=== PATIENT | male | born 1950 | race Caucasian/White ===

== ENCOUNTER 2016-12-06 21:06 | Inpatient (IN) | payer MEDICARE, MEDICAID ==
[~2016-12-06] VITALS: Ht 182.9 cm; Wt 89.2 kg
[~2016-12-06 21:06] MED LIST: AGM875T PO; ALEN70TA2 PO; ALEN70TA47; AMLO5TAB2; ANDROGEL PUMP; CALC600T12 PO; CEPH500C PO; DOXA1TAB; DOXA1TAB PO; DOXA2TAB PO; DOXA2TAB2 PO; FRSM40T PO; GLIP5TAB13 PO; HYDR-3454 PO; KCL20TCR PO; LANS30TA3 PO; LISI-552 PO; LISI20TA PO; LNS30CCR; LORA10TA7 PO; MAGN500C15 PO; METF-380 PO; MYCO500T34 PO; NR-TACRO1; NR-TACRO1 PO; OXC5T PO; OXYC5CAP10; OXYC5CAP10 PO; POTA20TA15 PO; TACR1CAP8 PO; TEST2.5G TD; URSO300C3 PO; URSO300C9 PO
[2016-12-06 21:27] LABS: BASOPHILS % (AUTO) 0 % (0-10); EOSINOPHILS # (AUTO) 0.1 10^3/uL (0.0-0.3); EOSINOPHILS % (AUTO) 1 % (0-10); LYMPHOCYTES # (AUTO) 1.5 X 10^3 (1.0-4.0); LYMPHOCYTES % (AUTO) 24 % (12-44); MEAN CORPUSCULAR HEMOGLOBIN 29 PG (25-34); MEAN CORPUSCULAR HGB CONC 33 G/DL (32-36); MEAN CORPUSCULAR VOLUME 88 FL (80-99); MEAN PLATELET VOLUME 10.6 FL (7.4-10.4); MONOCYTES # (AUTO) 0.5 X 10^3 (0.0-1.0); MONOCYTES % (AUTO) 8 % (0-12); NEUTROPHILS # (AUTO) 4.2 X 10^3 (1.8-7.8); NEUTROPHILS % (AUTO) 67 % (42-75); PLATELET COUNT 510 10^3/uL (130-400); RED BLOOD COUNT 4.32 10^6/uL (4.35-5.85); RED CELL DISTRIBUTION WIDTH 14.1 % (10.0-14.5); WHITE BLOOD COUNT 6.3 10^3/uL (4.3-11.0)
--- NOTE | 2016-12-06 21:39 | Diagnostic Imaging Report ---
INDICATION: Foot ulcer. FINDINGS: There is some destructive change in the distal aspect of the second metatarsal and second toe. This is suspect for underlying osteomyelitis. There has been previous amputation of much of the first metatarsal and the great toe. IMPRESSION: Findings suspect for underlying osteomyelitis in the distal second metatarsal and toe. There is some soft tissue swelling. Dictated by: Dictated on workstation # [id number]
[2016-12-06 21:47] LABS: ALANINE AMINOTRANSFERASE 17 U/L (0-55); ALBUMIN 3.3 G/DL (3.2-4.5); ANION GAP 11 MMOL/L (5-14); ASPARTATE AMINO TRANSFERASE 16 U/L (5-34); BILIRUBIN,TOTAL 0.5 MG/DL (0.1-1.0); BLOOD UREA NITROGEN 5 MG/DL (7-18); BUN/CREATININE RATIO 6; CALCIUM 9.2 MG/DL (8.5-10.1); CARBON DIOXIDE 28 MMOL/L (21-32); CHLORIDE 102 MMOL/L (98-107); CREATININE SERUM 0.77 MG/DL (0.60-1.30); GFR ESTIMATED > 60; GLUCOSE 277 MG/DL (70-105); POTASSIUM 3.4 MMOL/L (3.6-5.0); SODIUM 141 MMOL/L (135-145); TOTAL PROTEIN 7.6 G/DL (6.4-8.2)
[2016-12-06 21:48] LABS: ERYTHROCYTE SEDIMENTATION RATE 81 MM/HR (0-30)
[2016-12-06] MEDS ORDERED: NS IV 1000 ML 1,000 ML IV ONE (21:49)
[2016-12-06] MEDS ORDERED: PIPERACILLIN SODIUM/TAZOBACTAM 4.5 GM in NS (IVPB) 100 ML IV ONE (22:15)
--- NOTE | 2016-12-06 22:22 | ED General ---
General Chief Complaint: Lower Extremity Stated Complaint: FOOT ULCER Nursing Triage Note: PT BROUGHT IN BY [facility] WITH C/O INFECTION TO R FOOT X 1 MONTH. Nursing Sepsis Screen: No Definite Risk Source of Information: Patient, EMS Exam Limitations: No Limitations History of Present Illness Time Seen by Provider: 21:07 Initial Comments This 66-year-old gentleman presents to the emergency room via EMS with a wound on the right foot that has been present for about one month. It is actively draining. Patient is immunocompromised on CellCept because of liver transplant. He also has diabetes. He comes to the emergency room today because his landlord and other acquaintances were concerned about him and activated EMS. He denies fever but has had chills. Heart rate is greater than 100 on assessment. There is active purulent drainage from an open wound at a prior toe amputation site. Dr. Edwards is his firebreak cutter. Dr. Quiñonez is his primary care provider. He has no sensation in his feet. Allergies and Home Medications Allergies Coded Allergies: NKANo Known Allergies (Verified Allergy, Unknown, 11/24/05) Home Medications Alendronate Sodium 70 Mg Tablet, 70 MG PO weekly, (Reported) take on Thursday Doxazosin Mesylate 2 Mg Tablet, 2 MG PO BID, (Reported) Glipizide 5 Mg Tablet, 5 MG PO BID, (Reported) Lansoprazole 30 Mg Tab.rap.dr, 30 MG PO DAILY, (Reported) Lisinopril 20 Mg Tablet, 20 MG PO DAILY, (Reported) Metformin Hcl 1,000 Mg Tablet, 1,000 MG PO BID, (Reported) Mycophenolate Mofetil 500 Mg Tablet, 1,000 MG PO BID, (Reported) take 2 (500mg) tabs Oxycodone HCl/Acetaminophen 1 Each Tablet, 1 EACH PO Q4H PRN for PAIN-MILD TO MODERATE, (Reported) Tacrolimus 1 Mg Capsule, 2 MG PO BID, (Reported) take 2 (1mg) tabs Testosterone 2.5 Gm Gel.packet, 2.5 GM TD DAILY, (Reported) Ursodiol 300 Mg Capsule, 300 MG PO BID, (Reported) Constitutional: see HPI EENTM: no symptoms reported Respiratory: no symptoms reported Cardiovascular: no symptoms reported Gastrointestinal: see HPI Genitourinary: no symptoms reported Musculoskeletal: see HPI Skin: see HPI Psychiatric/Neurological: See HPI Hematologic/Lymphatic: No Symptoms Reported Immunological/Allergic: see HPI Past Ongjvyv-Gvxydb-Xbfmwx Hx Patient Social History Alcohol Use: Denies Use Recreational Drug Use: No (HX OF) Smoking Status: Former Smoker Former Smoker/When Quit: Mar 03, 2002 2nd Hand Smoke Exposure: No Recent Foreign Travel: No Contact w/Someone Who Travel: No Recent Infectious Disease Expo: No Recent Hopitalizations: No Immunizations Up To Date Date of Pneumonia Vaccine: Aug 03, 2011 Surgeries HX Surgeries: Yes (several sx on both feet with toes amputed) Surgeries: Appendectomy, Gallbladder, Liver Transplant, Tonsillectomy Respiratory Hx Respiratory Disorders: No Cardiovascular Hx Cardiac Disorders: Yes Neurological Hx Neurological Disorders: Yes (BOTH FEET NEUROPATHY) Reproductive System Hx Reproductive Disorders: No Sexually Transmitted Disease: No HIV/AIDS: No Genitourinary Hx Genitourinary Disorders: No Gastrointestinal Hx Gastrointestinal Disorders: Yes (hx of liver transplant 2002) Gastrointestinal Disorders: Hepatitis Musculoskeletal Hx Musculoskeletal Disorders: Yes Musculoskeletal Disorders: Amputee, Arthritis, Chronic Back Pain Endocrine Hx Endocrine Disorders: Yes Endocrine Disorders: Diabetes, Non-Insulin dep HEENT HX ENT Disorders: Yes (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)) Loss of Vision: Left Hearing Impairment: Denies Cancer Hx Cancer: No Psychosocial Hx Psychiatric Problems: Yes Behavioral Health Disorders: Anxiety, Depression Integumentary HX Skin/Integumentary Disorder: Yes (cyst left neck) Blood Transfusions Hx Blood Disorders: No Adverse Reaction to a Blood Tr: No Physical Exam Vital Signs Vital Sign - Last 12Hours 12/06/16 21:20 Temp 98.9 Pulse 106 Resp 20 B/P (MAP) 158/85 Pulse Ox 97 O2 Delivery Room Air Capillary Refill : Less Than 3 Seconds General Appearance: No Apparent Distress, WD/WN HEENT: PERRL/EOMI, Normal ENT Inspection, Pharynx Normal Neck: Full Range of Motion, Normal Inspection, Carotid Bruit Respiratory: Lungs Clear, Normal Breath Sounds, No Accessory Muscle Use, No Respiratory Distress Cardiovascular: Regular Rate, Rhythm, No Edema, No Murmur Gastrointestinal: Normal Bowel Sounds, Soft Extremity: Other (blister on the tip of the left great toe. Fairly large area of wound near the toe amputations on the right foot. 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 Norm as Tested Focused Exam Lactic Acid Level Progress/Results/Core Measures Results/Orders Lab Results Laboratory Tests Test 12/06/16 21:18 12/06/16 23:03 12/07/16 04:47 Range/Units White Blood Count 6.3 5.7 4.3-11.0 10^3/uL Red Blood Count 4.32 L 3.81 L 4.35-5.85 10^6/uL Hemoglobin 12.5 L 11.0 L 13.3-17.7 G/DL Hematocrit 38 L 34 L 40-54 % Mean Corpuscular Volume 88 89 80-99 FL Mean Corpuscular Hemoglobin 29 29 25-34 PG Mean Corpuscular Hemoglobin Concent 33 32 32-36 G/DL Red Cell Distribution Width 14.1 14.2 10.0-14.5 % Platelet Count 510 H 443 H 130-400 10^3/uL Mean Platelet Volume 10.6 H 10.5 H 7.4-10.4 FL Neutrophils (%) (Auto) 67 58 42-75 % Lymphocytes (%) (Auto) 24 31 12-44 % Monocytes (%) (Auto) 8 9 0-12 % Eosinophils (%) (Auto) 1 2 0-10 % Basophils (%) (Auto) 0 0 0-10 % Neutrophils # (Auto) 4.2 3.3 1.8-7.8 X 10^3 Lymphocytes # (Auto) 1.5 1.8 1.0-4.0 X 10^3 Monocytes # (Auto) 0.5 0.5 0.0-1.0 X 10^3 Eosinophils # (Auto) 0.1 0.1 0.0-0.3 10^3/uL Basophils # (Auto) 0.0 0.0 0.0-0.1 10^3/uL Erythrocyte Sedimentation Rate 81 H 0-30 MM/HR Sodium Level 141 135-145 MMOL/L Potassium Level 3.4 L 3.6-5.0 MMOL/L Chloride Level 102 98-107 MMOL/L Carbon Dioxide Level 28 21-32 MMOL/L Anion Gap 11 5-14 MMOL/L Blood Urea Nitrogen 5 L 7-18 MG/DL Creatinine 0.77 0.60-1.30 MG/DL Estimat Glomerular Filtration Rate > 60 BUN/Creatinine Ratio 6 Glucose Level 277 H 70-105 MG/DL Lactic Acid Level 2.05 *H 1.38 0.50-2.00 MMOL/L Calcium Level 9.2 8.5-10.1 MG/DL Total Bilirubin 0.5 0.1-1.0 MG/DL Aspartate Amino Transf (AST/SGOT) 16 5-34 U/L Alanine Aminotransferase (ALT/SGPT) 17 0-55 U/L Alkaline Phosphatase 103 40-136 U/L Total Protein 7.6 6.4-8.2 G/DL Albumin 3.3 3.2-4.5 G/DL My Orders Orders - SHAYNA GOMEZ MD Cbc With Automated Diff (12/06/16 21:15) Comprehensive Metabolic Panel (12/06/16 21:15) Lactic Acid Analyzer (12/06/16 21:15) Blood Culture (12/06/16 21:15) Wound Culture (12/06/16 21:15) Erythrocyte Sedimentation Rate (12/06/16 21:15) Saline Lock/Iv-Start (12/06/16 21:15) Foot, Right, 3 View (12/06/16 21:15) Ns Iv 1000 Ml (Sodium Chloride 0.9%) (12/06/16 21:49) Piperacillin Sodium/Tazobactam (Zosyn Vi (12/06/16 22:15) Medications Given in ED Current Medications Medications Dose Ordered Sig/Merrick Route Start Time Stop Time Status Last Admin Dose Admin Piperacillin Sod/ Tazobactam Sod 4.5 gm/Sodium Chloride 100 ml @ 200 mls/hr ONCE ONCE IV 12/06/16 22:15 12/06/16 22:44 DC 12/06/16 22:45 200 MLS/HR Sodium Chloride 1,000 ml @ 0 mls/hr Q0M ONCE IV 12/06/16 21:49 12/06/16 21:50 DC 12/06/16 22:08 0 MLS/HR Vital Signs/I&O Vital Sign - Last 12Hours 12/06/16 12/06/16 12/07/16 21:20 23:06 00:00 Temp 98.9 98.9 98.1 Pulse 106 100 97 Resp 20 20 18 B/P (MAP) 158/85 138/76 Pulse Ox 97 97 100 O2 Delivery Room Air Room Air Blood Pressure Mean: 109 Progress Note : Progress Note Wound and blood cultures were obtained. A liter of IV normal saline was administered. Antibiotic therapy was started with Zosyn. Vancomycin will be administered on arrival to the floor. Departure Communication Time/Spoke to Admitting Phy: 22:[address] Gleason agrees to admission and IV antibiotic therapy starting with vancomycin and Zosyn. Patient will need a surgical consultation with or another available surgeon. Impression Impression: Primary Impression: Osteomyelitis of right foot Qualified Codes: M86.9 - Osteomyelitis, unspecified Additional Impression: Immunocompromised state Disposition: ADMITTED INPATIENT Condition: Improved Decision to Admit Reason: Admit from ER (General) Decision to Admit/Date: December 06, 2016 Time/Decision to Admit Time: 22:00 Departure-Patient Inst. Referrals: SUSAN QUIÑONEZ MD (PCP/Family) Primary Care Physician SHAYNA GOMEZ MD December 06, 2016 22:22
[2016-12-06] MEDS ORDERED: CATHETER FLUSH 10 ML SYR IV PRN (23:45)
[2016-12-06] MEDS ORDERED: VANCOMYCIN 1500 MG/NS 500 ML IVPB IV ONE ×2 (23:45)
[2016-12-07] VITALS: BP 138/76
[2016-12-07] MEDS ORDERED: VANCOMYCIN 1000 MG/VIAL ONE (00:17)
[2016-12-07] MEDS ORDERED: NS (IVPB) 250 ML ONE (00:17)
[2016-12-07] MEDS: NS IV 1000 ML 1,000 ML IV SCH ×3 (00:30→18:48)
[2016-12-07] MEDS: oxyCODONE/APAP 5/325MG (PERCOCET 5) TABLET PO PRN ×4 (00:55→20:19)
[2016-12-07] MEDS ORDERED: OXYC-471 PO (02:58)
[2016-12-07 04:00] VITALS: BP 95/55
[2016-12-07] MEDS ORDERED: PIPERACILLIN/TAZOBACTAM 4.5 GM/NS 100 ML IVPB IV SCH ×2 (04:00)
[2016-12-07 05:22] LABS: BASOPHILS % (AUTO) 0 % (0-10); EOSINOPHILS # (AUTO) 0.1 10^3/uL (0.0-0.3); EOSINOPHILS % (AUTO) 2 % (0-10); LYMPHOCYTES # (AUTO) 1.8 X 10^3 (1.0-4.0); LYMPHOCYTES % (AUTO) 31 % (12-44); MEAN CORPUSCULAR HEMOGLOBIN 29 PG (25-34); MEAN CORPUSCULAR HGB CONC 32 G/DL (32-36); MEAN CORPUSCULAR VOLUME 89 FL (80-99); MEAN PLATELET VOLUME 10.5 FL (7.4-10.4); MONOCYTES # (AUTO) 0.5 X 10^3 (0.0-1.0); MONOCYTES % (AUTO) 9 % (0-12); NEUTROPHILS # (AUTO) 3.3 X 10^3 (1.8-7.8); NEUTROPHILS % (AUTO) 58 % (42-75); PLATELET COUNT 443 10^3/uL (130-400); RED BLOOD COUNT 3.81 10^6/uL (4.35-5.85); RED CELL DISTRIBUTION WIDTH 14.2 % (10.0-14.5); WHITE BLOOD COUNT 5.7 10^3/uL (4.3-11.0)
[2016-12-07] MEDS ORDERED: inSUlin ASPART (NovoLOG) 1 UNIT/0.01 ML (CHARGE PER UNIT) SC SCH (06:00)
[2016-12-07] MEDS: CATHETER FLUSH 10 ML SYR IV SCH ×3 (06:32→20:20)
[2016-12-07 06:38] LABS: ALANINE AMINOTRANSFERASE 14 U/L (0-55); ALBUMIN 2.8 G/DL (3.2-4.5); ANION GAP 9 MMOL/L (5-14); ASPARTATE AMINO TRANSFERASE 13 U/L (5-34); BILIRUBIN,TOTAL 0.3 MG/DL (0.1-1.0); BLOOD UREA NITROGEN 7 MG/DL (7-18); BUN/CREATININE RATIO 9; CALCIUM 8.3 MG/DL (8.5-10.1); CARBON DIOXIDE 25 MMOL/L (21-32); CHLORIDE 108 MMOL/L (98-107); CREATININE SERUM 0.76 MG/DL (0.60-1.30); GFR ESTIMATED > 60; GLUCOSE 261 MG/DL (70-105); POTASSIUM 3.3 MMOL/L (3.6-5.0); SODIUM 142 MMOL/L (135-145); TOTAL PROTEIN 6.6 G/DL (6.4-8.2)
[2016-12-07] MEDS: inSUlin (REGULAR) HUMAN 1 UNIT/0.01 ML (CHARGE PER UNIT) SC SCH ×5 (06:47→21:44)
[2016-12-07] MEDS ORDERED: VANCOMYCIN 1250 MG/NS 250 ML IVPB IV SCH ×2 (07:00)
--- NOTE | 2016-12-07 07:26 | History & Physicial (CHS) ---
HPI History of Present Illness: 66-year-old male admitted through the emergency department with a right foot that has been with a wound for approximately 1 month. Apparently the wound has been draining as well. He does see Dr. Vergara as his primary care physician through [facility]. Patient has also had liver transplant and is on medication that makes him immunocompromise. He also is diabetic. He denies any significant fever or any chills. Patient had prior amputation on the side that is involved. Source: patient Exam Limitations: clinical condition Date seen by provider: December 07, 2016 Attending Physician Joel Mota MD PCP Andreas Vergara MD Consult Date of Admission December 06, 2016 at 22:16 Home Medications Home Medications Reviewed patient Home Medication Reconciliation Form Allergies Coded Allergies: NKANo Known Allergies (Verified Allergy, Unknown, 11/24/05) WTW-Seggff-Yozamo Hx Patient Social History Alcohol Use: Occasionally Uses Recreational Drug Use: No (HX OF) Smoking Status: Former Smoker Former smoker/When Quit: Mar 03, 2002 2nd Hand Smoke Exposure: No Recent Foreign Travel: No Contact w/other who traveled: No Recent Hopitalizations: No Recent Infectious Disease Expo: No Physical Abuse Screen: No Sexual Abuse: No Immunizations Up To Date Date of Pneumonia Vaccine: Aug 03, 2011 Review of Systems ([facility]) Constitutional: see HPI Reviewed Test Results Reviewed Test Results Radiology NAME: ERIBERTO RAMEY MED REC#: [id number] PT STATUS: REG ER : 1950 PHYSICIAN: SHAYNA GOMEZ MD ADMIT DATE: 12/06/16/ER Signed Date of Exam: 12/06/16 FOOT, RIGHT, 3 VIEW INDICATION: Foot ulcer. FINDINGS: There is some destructive change in the distal aspect of the second metatarsal and second toe. This is suspect for underlying osteomyelitis. There has been previous amputation of much of the first metatarsal and the great toe. IMPRESSION: Findings suspect for underlying osteomyelitis in the distal second metatarsal and toe. There is some soft tissue swelling. Dictated by: Dictated on workstation # [id number] Dict: 12/06/162132 Trans: 12/06/162138 Interpreted by: ZOILA WHELAN Electronically signed by: ZOILA WHELAN 12/06/16 2139 Physical Exam-([facility]) Physical Exam Vital Signs VS - Last 72 Hours, by Label 12/06/16 12/06/16 12/07/16 12/07/16 21:20 23:06 00:00 04:00 Temp 98.9 98.9 98.1 97.2 Pulse 106 100 97 53 Resp 20 20 18 18 B/P (MAP) 158/85 138/76 95/55 Pulse Ox 97 97 100 98 O2 Delivery Room Air Room Air Room Air Capillary Refill : Less Than 3 Seconds General Appearance: no apparent distress Eyes: Bilateral Eye Normal Inspection Neck: non-tender, supple Respiratory: lungs clear Cardiovascular: regular rate, rhythm Gastrointestinal: soft Rectal: deferred Extremities: other (patient has obvious soft tissue swelling and mild erythema to the right foot. He is also noted to have drainage from the right foot where previous amputation has occurred) Assessment/Plan Assessment/Plan Admission Dx 1. Osteomyelitis second toe right foot 2. Abscess right foot 3. Diabetes mellitus 4. Previous liver transplant Plan 1. Osteomyelitis second toe right foot -Patient to be initiated on IV Zosyn and vancomycin. 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 Edwards 2. Abscess right foot -Antibiotics as above 3. Diabetes mellitus -We will maintain him on home medication and adjust as appropriate 4. Previous liver transplant Diagnosis/Problems: Clinical Quality Measures DVT/VTE Risk/Contraindication: Risk Factor Score Per Nursin RFS Level Per Nursing on Admit: 4+=Very High JOEL MOTA MD December 07, 2016 07:26
[2016-12-07] MEDS ORDERED: VANCOMYCIN 1500 MG/NS 500 ML IVPB IV NR ×2 (07:30)
[2016-12-07] MEDS ORDERED: oxyCODONE/APAP 5/325MG (PERCOCET 5) TABLET PO PRN (09:00)
[2016-12-07] MEDS ORDERED: TACROLIMUS 1 MG (PROGRAF) CAP NON-FORMULARY PO SCH (09:00)
[2016-12-07] MEDS: doxAzosin 2 MG (CARDURA) TAB PO SCH ×2 (09:30→20:19)
[2016-12-07] MEDS: metFORMIN 500 MG (GLUCOPHAGE) TAB PO SCH ×2 (09:31→17:12)
[2016-12-07] MEDS: glipiZIDE 5 MG (GLUCOTROL) TAB PO SCH ×2 (09:31→17:12)
[2016-12-07] MEDS: ENOXAPARIN 30 MG/0.3 ML (LOVENOX) SYR SC SCH (09:31)
[2016-12-07] MEDS: lisINopril 20 MG (ZESTRIL) TAB PO SCH (09:31)
[2016-12-07 12:00] VITALS: BP 98/58
[2016-12-07] MEDS: PIPERACILLIN/TAZOBACTAM 4.5 GM/NS 100 ML IVPB IV SCH ×4 (13:46→22:07)
[2016-12-07 15:25] VITALS: BP 90/50
[2016-12-07] MEDS: VANCOMYCIN 1250 MG/NS 250 ML IVPB IV SCH ×2 (18:47)
[2016-12-07 19:50] VITALS: BP 127/57
[2016-12-08 00:06] VITALS: BP 98/58
[2016-12-08] MEDS: NS IV 1000 ML 1,000 ML IV SCH ×2 (05:47→14:07)
[2016-12-08] MEDS: CATHETER FLUSH 10 ML SYR IV SCH ×3 (05:47→20:24)
[2016-12-08] MEDS: PIPERACILLIN/TAZOBACTAM 4.5 GM/NS 100 ML IVPB IV SCH ×6 (05:48→21:00)
[2016-12-08] MEDS ORDERED: TROUGH ORDER-PHARMACY XX NR (06:00)
[2016-12-08] MEDS: inSUlin (REGULAR) HUMAN 1 UNIT/0.01 ML (CHARGE PER UNIT) SC SCH ×4 (06:05→21:47)
[2016-12-08] MEDS: oxyCODONE/APAP 5/325MG (PERCOCET 5) TABLET PO PRN ×3 (06:12→19:22)
[2016-12-08] MEDS: glipiZIDE 5 MG (GLUCOTROL) TAB PO SCH ×2 (06:12→17:50)
[2016-12-08] MEDS: metFORMIN 500 MG (GLUCOPHAGE) TAB PO SCH (06:12)
[2016-12-08] MEDS: VANCOMYCIN 1250 MG/NS 250 ML IVPB IV SCH ×2 (07:45)
[2016-12-08 08:00] VITALS: BP 107/59
[2016-12-08] MEDS: doxAzosin 2 MG (CARDURA) TAB PO SCH ×2 (09:03→20:24)
[2016-12-08] MEDS: lisINopril 20 MG (ZESTRIL) TAB PO SCH (09:03)
[2016-12-08] MEDS: ENOXAPARIN 30 MG/0.3 ML (LOVENOX) SYR SC SCH (09:03)
--- NOTE | 2016-12-08 11:35 | Progress Note (SOAP) ---
Subjective Subjective/Events-last exam Patient states that he feels fine this AM. Denies any pain on foot. Tolerating PO diet. Date seen by provider: December 08, 2016 Objective Exam Last Set of Vital Signs Vital Signs Date Time Temp Pulse Resp B/P (MAP) Pulse Ox O2 Delivery O2 Flow Rate FiO2 12/08/16 08:00 99.0 81 16 107/59 95 Room Air Capillary Refill : Less Than 3 Seconds I&O Intake and Output 12/08/16 00:00 Intake Total 4115 ml Output Total 650 ml Balance 3465 ml Intake Oral 2000 ml IV Total 2115 ml Output Urine Total 650 ml # Voids 5 General: Alert, Oriented X3, Cooperative, No Acute Distress Neck: Supple, No JVD, No Thyromegaly Lungs: Clear to Auscultation, Normal Air Movement Heart: Regular Rate, No Murmurs Abdomen: Normal Bowel Sounds, Soft, No Tenderness Extremities: Other (Right foot: + draining abcess of purulent fluid, + swelling and erythema, tender to palpation across top of foot. Decreased sensation to Right foot compared to left.) Neuro: Strength at 5/ X4 Ext Results/Procedures Lab Laboratory Tests 12/07/16 11:56: Glucometer 140H 12/07/16 16:30: Glucometer 132H 12/07/16 21:33: Glucometer 107 12/08/16 05:46: Glucometer 98 12/08/16 06:15: Vancomycin Level Trough 14.2 12/08/16 11:13: Glucometer 127H Microbiology 12/06/16 Blood Culture - Preliminary, Resulted No growth 12/06/16 Gram Stain - Final, Resulted 12/06/16 Wound Culture - Preliminary, Resulted Staphylococcus Aureus Proteus Penneri Radiology NAME: ERIBERTO RAMEY [facility] REC#: [id number] PT STATUS: REG ER : 1950 PHYSICIAN: SHAYNA GOMEZ MD ADMIT DATE: 12/06/16/ER Signed Date of Exam: 12/06/16 FOOT, RIGHT, 3 VIEW INDICATION: Foot ulcer. FINDINGS: There is some destructive change in the distal aspect of the second metatarsal and second toe. This is suspect for underlying osteomyelitis. There has been previous amputation of much of the first metatarsal and the great toe. IMPRESSION: Findings suspect for underlying osteomyelitis in the distal second metatarsal and toe. There is some soft tissue swelling. Dictated by: Dictated on workstation # [id number] Dict: 12/06/162132 Trans: 12/06/162138 Interpreted by: ZOILA WHELAN Electronically signed by: ZOILA WHELAN 12/06/162138 Assessment/Plan Assessment/Plan Admission Dx 1. Osteomyelitis second toe right foot 2. Abscess right foot 3. Diabetes mellitus 4. Previous liver transplant Plan 1. Osteomyelitis second toe right foot - Dr Edwards to see patient today - D/c Vanc today after reviewing C/s, Continue Zosyn 2. Abscess right foot - Antibiotics as above 3. Diabetes mellitus - We will maintain him on home medication and adjust as appropriate - A1c pending 4. Previous liver transplant - Has not been on medications for over a year - Encouraged patient to re establish with transplant doctors as outpatient Diagnosis/Problems: Clinical Quality Measures DVT/VTE Risk/Contraindication: Risk Factor Score Per Nursin RFS Level Per Nursing on Admit: 4+=Very High ANA QUINTANA MD December 08, 2016 11:35
[2016-12-08] MEDS ORDERED: KCL 20 MEQ TAB (K-DUR) PO NR (11:45)
[2016-12-08 16:05] VITALS: BP 107/58
--- NOTE | 2016-12-08 17:29 | Podiatry Progress Note ---
Standard Progress Note Progress Notes/Assess & Plan Progress/Assessment & Plan Consult dictated. Osteomyelitis of the right 2nd metatarsal Plan: I will contact surgery tomorrow for excision of infected bone ( amputation of the remaining 2nd toe and 2nd metatarsal). He is also to consider a transmetatarsal amputation which could be a better jail solution. Wound care daily until surgery. Continue IV antibiotics. Final Diagnosis Osteomyelitis right 2nd metatarsal KENNY RENAE DPM December 08, 2016 17:29
[2016-12-08] MEDS: SILVER SULFADIAZINE 400 GM CREAM TOP SCH (20:24)
[2016-12-09] MEDS: NS IV 1000 ML 1,000 ML IV SCH ×3 (00:16→20:12)
[2016-12-09 00:32] VITALS: BP 111/62
[2016-12-09 04:00] VITALS: BP 142/65
[2016-12-09 05:56] LABS: BASOPHILS % (AUTO) 1 % (0-10); EOSINOPHILS # (AUTO) 0.2 10^3/uL (0.0-0.3); EOSINOPHILS % (AUTO) 4 % (0-10); LYMPHOCYTES # (AUTO) 1.5 X 10^3 (1.0-4.0); LYMPHOCYTES % (AUTO) 34 % (12-44); MEAN CORPUSCULAR HEMOGLOBIN 29 PG (25-34); MEAN CORPUSCULAR HGB CONC 32 G/DL (32-36); MEAN CORPUSCULAR VOLUME 91 FL (80-99); MEAN PLATELET VOLUME 10.9 FL (7.4-10.4); MONOCYTES # (AUTO) 0.4 X 10^3 (0.0-1.0); MONOCYTES % (AUTO) 9 % (0-12); NEUTROPHILS # (AUTO) 2.3 X 10^3 (1.8-7.8); NEUTROPHILS % (AUTO) 52 % (42-75); PLATELET COUNT 357 10^3/uL (130-400); RED BLOOD COUNT 3.51 10^6/uL (4.35-5.85); RED CELL DISTRIBUTION WIDTH 14.5 % (10.0-14.5); WHITE BLOOD COUNT 4.3 10^3/uL (4.3-11.0)
[2016-12-09] MEDS: PIPERACILLIN/TAZOBACTAM 4.5 GM/NS 100 ML IVPB IV SCH ×6 (06:03→21:16)
--- NOTE | 2016-12-09 06:03 | CONSULTATION REPORT ---
DATE OF SERVICE: 12/08/2016 REASON FOR CONSULT: Diabetic ulceration with osteomyelitis of the right foot. HISTORY OF PRESENT ILLNESS: This 66-year-old male was admitted through the ER secondary to a foot ulcer to the right foot for the last month. It was actively draining. He had a history of multiple amputations to digits of bilateral foot. He apparently had some nausea and some acquaintances of [employer] were concerned about his well being and activated EMS to have him transported to the hospital. He was subsequently admitted and treated with IV antibiotics. He denies any current fever, chills, nausea or vomiting and the pain to the right foot has improved since being admitted. The patient has no known drug allergies. PAST MEDICAL HISTORY: Includes coronary artery disease; history of neuropathy, bilateral foot; history of liver transplant due to hepatitis; chronic back pain, arthritis; noninsulin dependent diabetic who was not checking his blood sugars on a regular basis prior to admission. He does have left eye partial blindness, history of anxiety, depression. PAST SURGICAL HISTORY: Also, include appendectomy, cholecystectomy, liver transplant, tonsillectomy and above mentioned multiple amputations. CURRENT MEDICATIONS: Listed on the patient's chart. SOCIAL HISTORY: The patient denies alcohol or illicit drug use. He is a former smoker, quit in 2001. PHYSICAL EXAMINATION: GENERAL: The patient is currently afebrile, is in good condition. EXTREMITIES: On lower extremity examination, the patient has diminished pedal pulses bilateral foot. The patient has diminished protective sensation per 10 gram monofilament wire,bilateral foot, absent vibratory sensation bilateral foot. DERMATOLOGIC: The patient has a full thickness wound approximately 9 x 4 mm to remaining right second digit that probes down to bone. There is minimal purulent discharge in this area, some pain with palpation. No bogginess noted at this point. Dermatologically, he also has a bulla noted to the distal aspect of the left hallux, a hyperkeratotic lesion to the distal aspect of the left fourth toe. There is also evidence of a previous ulceration on the planter aspect of the right second metatarsal head that is now crusted over. MUSCULOSKELETAL: The patient has amputation of the right hallux, partial amputation of the right second toe, amputation of the left second toe and a partial amputation of the left third digit. There is significant lateral deviation noted to the left hallux. Contracted toes 4 and 5 are noted on the right and left fourth and fifth toes. X-rays were reviewed that were taken on 12/06/2016 indicate the significant osteolysis associated with the second metatarsal head of the right foot, consistent with osteomyelitis. ASSESSMENT: 1. Osteomyelitis, right second metatarsal with probable extension to the remaining second digit 2. Diabetic neuropathy. 3. Hammer digit syndrome. PLAN: Various treatment options were discussed with the patient. We discussed continued wound care for the right second toe. However, he needs incision and drainage and probable amputation of the second ray right foot. He understands the risks associated with the surgery as well as the risk associated with not doing surgery. My plan is to contact the surgery department tomorrow morning and see when we can put him on the schedule for at least an I and D and probable amputation of the infected bone. In the meantime, we will have wound care performed as well as continuation of his IV antibiotics. He is to remain nonweight bearing on the right lower extremity. Job ID: [id number] DocumentID: [id number] Dictated Date: 12/08/2016 17:36:50 Admissions Specialist Date: 12/09/2016 00:24:17 Dictated By: BILL DAMON
[2016-12-09] MEDS: CATHETER FLUSH 10 ML SYR IV SCH ×3 (06:04→20:14)
[2016-12-09] MEDS: glipiZIDE 5 MG (GLUCOTROL) TAB PO SCH ×2 (06:04→17:35)
[2016-12-09 06:13] LABS: ANION GAP 7 MMOL/L (5-14); BLOOD UREA NITROGEN 8 MG/DL (7-18); BUN/CREATININE RATIO 11; CALCIUM 8.4 MG/DL (8.5-10.1); CARBON DIOXIDE 26 MMOL/L (21-32); CHLORIDE 111 MMOL/L (98-107); CREATININE SERUM 0.72 MG/DL (0.60-1.30); GFR ESTIMATED > 60; GLUCOSE 129 MG/DL (70-105); POTASSIUM 3.6 MMOL/L (3.6-5.0); SODIUM 144 MMOL/L (135-145)
[2016-12-09] MEDS: inSUlin (REGULAR) HUMAN 1 UNIT/0.01 ML (CHARGE PER UNIT) SC SCH ×4 (06:29→23:29)
[2016-12-09 08:00] VITALS: BP 118/65
[2016-12-09] MEDS: lisINopril 20 MG (ZESTRIL) TAB PO SCH (08:52)
[2016-12-09] MEDS: doxAzosin 2 MG (CARDURA) TAB PO SCH ×2 (08:52→20:14)
[2016-12-09] MEDS: SILVER SULFADIAZINE 400 GM CREAM TOP SCH (08:53)
[2016-12-09] MEDS: oxyCODONE/APAP 5/325MG (PERCOCET 5) TABLET PO PRN ×3 (08:53→23:51)
[2016-12-09] MEDS: ENOXAPARIN 40 MG/0.4 ML (LOVENOX) SYR SC SCH (08:53)
[2016-12-09 16:00] VITALS: BP 123/66
--- NOTE | 2016-12-09 20:26 | Progress Note (SOAP) ---
Subjective Subjective/Events-last exam Patient states that he is doing ok this AM. States that pain is controlled. tolerating PO diet and ambulation with walker. + BM overnight. Date seen by provider: December 09, 2016 Objective Exam Last Set of Vital Signs Vital Signs Date Time Temp Pulse Resp B/P (MAP) Pulse Ox O2 Delivery O2 Flow Rate FiO2 12/09/16 16:00 97.1 78 20 123/66 96 Room Air Capillary Refill : Less Than 3 Seconds I&O Intake and Output 12/09/16 00:00 Intake Total 2877 ml Output Total 775 ml Balance 2102 ml Intake Oral 1447 ml IV Total 1430 ml Output Urine Total 775 ml # Voids 4 # Bowel Movements 2 General: Alert, Oriented X3, Cooperative, No Acute Distress Lungs: Clear to Auscultation, Normal Air Movement Heart: Regular Rate, No Murmurs Abdomen: Normal Bowel Sounds, Soft, No Tenderness, No Hepatosplenomegaly, No Masses Extremities: Other (+ erythema and swelling to RLE and foot) Psych/Mental Status: Mental Status NL, Mood NL Results/Procedures Lab Laboratory Tests 12/08/16 21:43: Glucometer 169H 12/09/16 05:25: White Blood Count 4.3, Red Blood Count 3.51L, Hemoglobin 10.1L, Hematocrit 32L, Mean Corpuscular Volume 91, Mean Corpuscular Hemoglobin 29, Mean Corpuscular Hemoglobin Concent 32, Red Cell Distribution Width 14.5, Platelet Count 357, Mean Platelet Volume 10.9H, Neutrophils (%) (Auto) 52, Lymphocytes (%) (Auto) 34 , Monocytes (%) (Auto) 9, Eosinophils (%) (Auto) 4, Basophils (%) (Auto) 1, Neutrophils # (Auto) 2.3, Lymphocytes # (Auto) 1.5, Monocytes # (Auto) 0.4, Eosinophils # (Auto) 0.2, Basophils # (Auto) 0.0, Sodium Level 144, Potassium Level 3.6, Chloride Level 111H, Carbon Dioxide Level 26, Anion Gap 7, Blood Urea Nitrogen 8, Creatinine 0.72, Estimat Glomerular Filtration Rate > 60, BUN/ Creatinine Ratio 11, Glucose Level 129H, Hemoglobin A1c 9.1H, Calcium Level 8.4L 12/09/16 10:49: Glucometer 220H 12/09/16 16:20: Glucometer 135H Microbiology 12/06/16 Blood Culture - Preliminary, Resulted No growth 12/06/16 Gram Stain - Final, Resulted 12/06/16 Wound Culture - Preliminary, Resulted Staphylococcus Aureus Proteus Penneri Radiology NAME: ERIBERTO RAMEY [facility] REC#: [id number] PT STATUS: REG ER : 1950 PHYSICIAN: SHAYNA GOMEZ MD ADMIT DATE: 12/06/16/ER Signed Date of Exam: 12/06/16 FOOT, RIGHT, 3 VIEW INDICATION: Foot ulcer. FINDINGS: There is some destructive change in the distal aspect of the second metatarsal and second toe. This is suspect for underlying osteomyelitis. There has been previous amputation of much of the first metatarsal and the great toe. IMPRESSION: Findings suspect for underlying osteomyelitis in the distal second metatarsal and toe. There is some soft tissue swelling. Dictated by: Dictated on workstation # [id number] Dict: 12/06/162132 Trans: 12/06/162138 Interpreted by: ZOILA WHELAN Electronically signed by: ZOILA WHELAN 12/06/162138 Assessment/Plan Assessment/Plan Admission Dx 1. Osteomyelitis second toe right foot 2. Abscess right foot 3. Diabetes mellitus 4. Previous liver transplant Plan 66 yo M that was admitted with diabetic foot wound with underlying osteomyelitis 1. Osteomyelitis second toe right foot - Dr Edwards to take patient to OR for amputation - Continue Zosyn, Will wait for c/s from amputation - Patient will need rehab evaluation after surgery 2. Bacteremia - Continue IV antibiotics 3. Abscess right foot - Antibiotics as above 4. Diabetes mellitus - We will maintain him on home medication and adjust as appropriate - Holding Metformin in case patient needs contrast - A1c 9.1, Uncontrolled 4. Previous liver transplant - Has not been on medications for over a year - Encouraged patient to re establish with transplant doctors as outpatient FEN: NPO for procedure then advance to ADA diet DVT PPX: SCDs then start lovenox when ok with Dr Edwards Dispo: Will likely d/c home when c/s return after surgery, will get evaluation from rehab and may need swing bed SW: Consulted and following patient Diagnosis/Problems: Clinical Quality Measures DVT/VTE Risk/Contraindication: Risk Factor Score Per Nursin RFS Level Per Nursing on Admit: 4+=Very High ANA QUINTANA MD December 09, 2016 20:26
[2016-12-10] VITALS: BP 123/76
[2016-12-10] MEDS: PIPERACILLIN/TAZOBACTAM 4.5 GM/NS 100 ML IVPB IV SCH ×6 (05:02→21:42)
[2016-12-10] MEDS: CATHETER FLUSH 10 ML SYR IV SCH ×3 (05:08→22:29)
[2016-12-10] MEDS: glipiZIDE 5 MG (GLUCOTROL) TAB PO SCH ×2 (05:08→18:52)
[2016-12-10] MEDS: NS IV 1000 ML 1,000 ML IV SCH ×3 (06:31→18:58)
[2016-12-10] MEDS: inSUlin (REGULAR) HUMAN 1 UNIT/0.01 ML (CHARGE PER UNIT) SC SCH ×4 (06:36→22:26)
[2016-12-10 06:49] LABS: BASOPHILS % (AUTO) 1 % (0-10); EOSINOPHILS # (AUTO) 0.1 10^3/uL (0.0-0.3); EOSINOPHILS % (AUTO) 3 % (0-10); LYMPHOCYTES # (AUTO) 1.4 X 10^3 (1.0-4.0); LYMPHOCYTES % (AUTO) 37 % (12-44); MEAN CORPUSCULAR HEMOGLOBIN 28 PG (25-34); MEAN CORPUSCULAR HGB CONC 32 G/DL (32-36); MEAN CORPUSCULAR VOLUME 90 FL (80-99); MEAN PLATELET VOLUME 10.6 FL (7.4-10.4); MONOCYTES # (AUTO) 0.5 X 10^3 (0.0-1.0); MONOCYTES % (AUTO) 13 % (0-12); NEUTROPHILS # (AUTO) 1.8 X 10^3 (1.8-7.8); NEUTROPHILS % (AUTO) 47 % (42-75); PLATELET COUNT 333 10^3/uL (130-400); RED BLOOD COUNT 3.41 10^6/uL (4.35-5.85); RED CELL DISTRIBUTION WIDTH 14.3 % (10.0-14.5); WHITE BLOOD COUNT 3.9 10^3/uL (4.3-11.0)
[2016-12-10 07:19] LABS: ALANINE AMINOTRANSFERASE 16 U/L (0-55); ALBUMIN 2.7 G/DL (3.2-4.5); ANION GAP 6 MMOL/L (5-14); ASPARTATE AMINO TRANSFERASE 20 U/L (5-34); BILIRUBIN,TOTAL 0.3 MG/DL (0.1-1.0); BLOOD UREA NITROGEN 7 MG/DL (7-18); BUN/CREATININE RATIO 10; CALCIUM 8.2 MG/DL (8.5-10.1); CARBON DIOXIDE 27 MMOL/L (21-32); CHLORIDE 109 MMOL/L (98-107); GFR ESTIMATED > 60; GLUCOSE 147 MG/DL (70-105); POTASSIUM 3.4 MMOL/L (3.6-5.0); SODIUM 142 MMOL/L (135-145)
[2016-12-10 08:00] VITALS: BP 121/60
[2016-12-10] MEDS: oxyCODONE/APAP 5/325MG (PERCOCET 5) TABLET PO PRN ×3 (08:14→20:23)
[2016-12-10] MEDS: doxAzosin 2 MG (CARDURA) TAB PO SCH ×2 (09:49→20:23)
[2016-12-10] MEDS: lisINopril 20 MG (ZESTRIL) TAB PO SCH (09:49)
[2016-12-10] MEDS: SILVER SULFADIAZINE 400 GM CREAM TOP SCH (09:49)
[2016-12-10] MEDS: ENOXAPARIN 40 MG/0.4 ML (LOVENOX) SYR SC SCH (09:59)
[2016-12-10] MEDS ORDERED: fentaNYL INJECTION 100 MCG/2 ML AMP IVP NR (10:08)
[2016-12-10] MEDS ORDERED: BUPIVACAINE 0.5% 30 ML (SENSORCAINE) VIAL ONE (11:35)
[2016-12-10] MEDS ORDERED: LIDOCAINE 1% INJ 20 ML (XYLOCAINE) VIAL ONE (11:35)
[2016-12-10] MEDS ORDERED: SEVOFLURANE (ULTANE) 15 ML INHAL SOLN ONE (11:55)
[2016-12-10] MEDS ORDERED: LIDOCAINE PF 2% 10 ML (XYLOCAINE) AMP ONE (11:55)
[2016-12-10] MEDS ORDERED: LACTATED RINGERS 1,000 ML IV ONE (11:55)
[2016-12-10] MEDS ORDERED: ONDANSETRON 4 MG/2 ML (SDV) Z0FRAN ONE (11:55)
[2016-12-10] MEDS ORDERED: proPOfol 200 MG/20 ML (DIPRIVAN) VIAL IV ONE (11:55)
[2016-12-10] MEDS ORDERED: fentaNYL INJECTION 100 MCG/2 ML AMP ONE (11:55)
[2016-12-10] MEDS ORDERED: MIDAZOLAM 2 MG/2 ML (VERSED) VIAL ONE (11:55)
[2016-12-10] MEDS: LACTATED RINGERS 1,000 ML IV PRN ×2 (12:02→13:02)
--- NOTE | 2016-12-10 12:16 | Progress Note-Pre Operative ---
Pre-Operative Progress Note H&P Reviewed The H&P was reviewed, patient examined and no changes noted. Date H&P Reviewed: December 10, 2016 Time H&P Reviewed: 12:15 Pre-Operative Diagnosis: Osteomyelitis of the right 2nd metatarsal and toe KENNY RENAE DPM December 10, 2016 12:15
[2016-12-10] MEDS ORDERED: GENTAMICIN 40 MG/ML 2 ML INJ SDV ONE (12:26)
[2016-12-10] MEDS ORDERED: PHENYLEPHRINE 100 MCG/ML 10 ML (ANESTHESIA) SYR ONE (12:57)
[2016-12-10] MEDS ORDERED: morphine INJ 10 MG/ML 1ML (SYR OR VIAL) IVP PRN (13:00)
[2016-12-10] MEDS ORDERED: ONDANSETRON 4 MG/2 ML (SDV) Z0FRAN IVP PRN (13:00)
[2016-12-10] MEDS ORDERED: HYDROmorphone (DILAUDID) 2 MG/ML VIAL IVP PRN (13:00)
--- NOTE | 2016-12-10 13:24 | Progress Note-Post Operative ---
Post-Operative Progess Note Surgeon (s)/Computer Mechanic (s) Surgeon KENNY RENAE DPM Computer Mechanic: NONE Pre-Operative Diagnosis Osteomyelitis of the right 2nd metatarsal and toe Post-Operative Diagnosis Same Procedure & Operative Findings Date of Procedure 12/10/16 Procedure Preformed/Findings Amputation of the distal 2nd metatarsal and toe, right Anesthesia Type General Estimated Blood Loss Estimated blood loss (mL): Minimal Specimens/Packing Specimens Removed right 2nd metatarsal and 2nd toe Packin/2" drain KENNY RENAE DPM December 10, 2016 13:24
[2016-12-10 16:00] VITALS: BP 120/60
--- NOTE | 2016-12-10 18:01 | Progress Note (SOAP) ---
Subjective Subjective/Events-last exam Patient to surgery this afternoon. States that he is having more pain today. Tolerating PO and ambulation. + BM last night Date seen by provider: December 10, 2016 Objective Exam Last Set of Vital Signs Vital Signs Date Time Temp Pulse Resp B/P (MAP) Pulse Ox O2 Delivery O2 Flow Rate FiO2 12/10/16 16:00 96.0 95 16 120/60 96 Room Air Capillary Refill : Less Than 3 Seconds I&O Intake and Output 12/10/16 00:00 Intake Total 4320 ml Output Total 3025 ml Balance 1295 ml Intake Oral 2120 ml IV Total 2200 ml Output Urine Total 3025 ml # Bowel Movements 1 General: Alert, Oriented X3, Cooperative, No Acute Distress Lungs: Clear to Auscultation, Normal Air Movement Heart: Regular Rate, No Murmurs Abdomen: Normal Bowel Sounds, Soft, No Tenderness Extremities: Other (+ swelling, erythema and drainage from R foot wound) Psych/Mental Status: Mental Status NL, Mood NL Results/Procedures Lab Laboratory Tests 12/09/16 21:04: Glucometer 168H 12/09/16 23:28: Glucometer 184H 12/10/16 06:35: White Blood Count 3.9L, Red Blood Count 3.41L, Hemoglobin 9.7L, Hematocrit 31L, Mean Corpuscular Volume 90, Mean Corpuscular Hemoglobin 28, Mean Corpuscular Hemoglobin Concent 32, Red Cell Distribution Width 14.3, Platelet Count 333, Mean Platelet Volume 10.6H, Neutrophils (%) (Auto) 47, Lymphocytes (%) (Auto) 37 , Monocytes (%) (Auto) 13H, Eosinophils (%) (Auto) 3, Basophils (%) (Auto) 1, Neutrophils # (Auto) 1.8, Lymphocytes # (Auto) 1.4, Monocytes # (Auto) 0.5, Eosinophils # (Auto) 0.1, Basophils # (Auto) 0.0, Sodium Level 142, Potassium Level 3.4L, Chloride Level 109H, Carbon Dioxide Level 27, Anion Gap 6, Blood Urea Nitrogen 7, Creatinine 0.70, Estimat Glomerular Filtration Rate > 60, BUN/ Creatinine Ratio 10, Glucose Level 147H, Calcium Level 8.2L, Total Bilirubin 0.3 , Aspartate Amino Transf (AST/SGOT) 20, Alanine Aminotransferase (ALT/SGPT) 16, Alkaline Phosphatase 81, Total Protein 6.0L, Albumin 2.7L 12/10/16 11:39: Glucometer 138H Microbiology 12/06/16 Blood Culture - Preliminary, Resulted No growth 12/09/16 MRSA Screen - Final, Complete MRSA not isolated 12/06/16 Gram Stain - Final, Complete 12/06/16 Wound Culture - Final, Complete Staphylococcus Aureus Proteus Penneri Radiology NAME: ERIBERTO RAMEY [facility] REC#: [id number] PT STATUS: REG ER : 1950 PHYSICIAN: SHAYNA GOMEZ MD ADMIT DATE: 12/06/16/ER Signed Date of Exam: 12/06/16 FOOT, RIGHT, 3 VIEW INDICATION: Foot ulcer. FINDINGS: There is some destructive change in the distal aspect of the second metatarsal and second toe. This is suspect for underlying osteomyelitis. There has been previous amputation of much of the first metatarsal and the great toe. IMPRESSION: Findings suspect for underlying osteomyelitis in the distal second metatarsal and toe. There is some soft tissue swelling. Dictated by: Dictated on workstation # [id number] Dict: 12/06/162132 Trans: 12/06/162138 Interpreted by: ZOILA WHELAN Electronically signed by: ZOILA WHELAN 12/06/162138 Assessment/Plan Assessment/Plan Admission Dx 1. Osteomyelitis second toe right foot 2. Abscess right foot 3. Diabetes mellitus 4. Previous liver transplant Plan 66 yo M that was admitted with diabetic foot wound with underlying osteomyelitis 1. Osteomyelitis second toe right foot - Dr Edwards to take patient to OR for amputation today - Continue Zosyn, Will wait for c/s from amputation - Patient will need rehab evaluation after surgery 2. Bacteremia - Continue IV antibiotics 3. Abscess right foot - Antibiotics as above 4. Diabetes mellitus - We will maintain him on home medication and adjust as appropriate - Holding Metformin in case patient needs contrast - A1c 9.1, Uncontrolled 5. Previous liver transplant - Has not been on medications for over a year - Encouraged patient to re establish with transplant doctors as outpatient 6. Normocytic Anemia - Will get iron studies, likely mixed with chronic dz, no signs of acute bleeding at this time 7. Hypokalemia - replace PO, repeat BMP in AM FEN: NPO for procedure then advance to ADA diet DVT PPX: SCDs then start lovenox when ok with Dr Edwards Dispo: Will likely d/c home when c/s return after surgery, will get evaluation from rehab and may need swing bed SW: Consulted and following patient Diagnosis/Problems: Clinical Quality Measures DVT/VTE Risk/Contraindication: Risk Factor Score Per Nursin RFS Level Per Nursing on Admit: 4+=Very High ANA QUINTANA MD December 10, 2016 18:01
[2016-12-10] MEDS: KETOROLAC 30 MG/ML VIAL IVP PRN (18:11)
[2016-12-10] MEDS: morphine INJ 4 MG/ML 1 ML (VIAL/SYRINGE) IVP PRN ×2 (18:11→21:42)
[2016-12-10 19:51] VITALS: BP 112/55
[2016-12-11 00:27] VITALS: BP 101/57
[2016-12-11] MEDS: oxyCODONE/APAP 5/325MG (PERCOCET 5) TABLET PO PRN ×4 (01:15→21:17)
[2016-12-11] MEDS: morphine INJ 4 MG/ML 1 ML (VIAL/SYRINGE) IVP PRN ×2 (01:15→07:32)
--- NOTE | 2016-12-11 02:16 | OPERATIVE REPORT ---
DATE OF SERVICE: 12/10/2016 SURGEON: Kenny Renae DPM PREOPERATIVE DIAGNOSIS: Osteomyelitis right second metatarsal. POSTOPERATIVE DIAGNOSIS: Osteomyelitis right second metatarsal. PROCEDURE: Amputation of distal right second metatarsal and digit. WOUND CLASS: Contaminated. ANESTHESIA: General. HEMOSTASIS: Pneumatic thigh tourniquet at 250 mmHg. INDICATIONS: This 66-year-old male presented through the ER for chronic ulceration of the right foot, apparently some fever and chills. X-rays indicated considerable osteolysis of the right second metatarsal head consistent with osteomyelitis. The patient was agreeable to surgical intervention after risks and complications were discussed at length. No guarantees were extended to the patient and he is willing to proceed. PROCEDURE: The patient was brought back to the operating table. He was then secured in the supine position. Appropriate timeout was performed. A general anesthetic was then induced. The right foot was then prepped and draped in normal sterile manner. The right lower extremity had a thigh tourniquet placed over several layers of padding. The right foot was then elevated, allowed to exsanguinate; after which the tourniquet was inflated to 250 mmHg. Attention was then directed to the right second ray where a 7 cm longitudinal incision created from the mid diaphysis extending distally and circumscribed the second digit extending laterally to the ulceration site which was also circumscribed with the incision. The incision was deepened down to bone. The second digit was disarticulated at the metatarsophalangeal joint and sent for gross and microscopic evaluation. Purulent changes were noted to the head of the second metatarsal. A section of this was sent for culture and sensitivity. Utilizing a power sagittal saw the distal portion of the second metatarsal was removed for gross and microscopic evaluation. Another small slice of metatarsal of approximately 3 mm wafer was also taken to confirm lack of bacterial or degenerative changes to this portion of the bone. The wound was then debrided of all necrotic and grossly infected material. The flexors and extensor tendons were cut as proximally as possible. Pulse irrigation was then performed with 3 liters of normal saline. It was infused with 80 mg of gentamicin. Swab culture was then taken of the wound before closure and closure was then performed with 4-0 simple interrupted type stitch. After it was longterm closed, a Manuel drain 1/2 inch wide was passed through a stab incision to the dorsolateral aspect of the wound. The tourniquet was released, finding that there were no active bleeders. The wound was closed completely with 4-0 Prolene in a simple interrupted type stitch. Postoperative injection consisted of 13 mL of 0.5% Marcaine injected in local infusion to the surgical site. Postoperative dressing consisted of Betadine-soaked Adaptic, sterile 4 x 4s, sterile Kerlix, secured with a Coban wrap. The patient tolerated the anesthesia procedure well, was transported from the operating room to the recovery area with vital signs stable and neurovascular status intact to all remaining digits of the right foot. The patient is to remain nonweightbearing. He will continue with IV antibiotics as dictated by the bone cultures. We anticipate the patient to be in the hospital for at least a couple of more days and then the drain will likely be withdrawn from the foot and then we will see about possible discharge. He will follow up in my clinic upon discharge. Job ID: [id number] DocumentID: [id number] Dictated Date: 12/10/2016 13:35:10 Needlemaker Date: 12/11/2016 02:16:07 Dictated By: KENNY RENAE DPM
[2016-12-11 04:10] VITALS: BP 100/56
[2016-12-11] MEDS: KETOROLAC 30 MG/ML VIAL IVP PRN ×2 (04:41→14:57)
[2016-12-11] MEDS: NS IV 1000 ML 1,000 ML IV SCH ×2 (04:42→14:56)
[2016-12-11 06:05] LABS: BASOPHILS % (AUTO) 1 % (0-10); EOSINOPHILS # (AUTO) 0.1 10^3/uL (0.0-0.3); EOSINOPHILS % (AUTO) 3 % (0-10); LYMPHOCYTES # (AUTO) 1.3 X 10^3 (1.0-4.0); LYMPHOCYTES % (AUTO) 28 % (12-44); MEAN CORPUSCULAR HEMOGLOBIN 29 PG (25-34); MEAN CORPUSCULAR HGB CONC 32 G/DL (32-36); MEAN CORPUSCULAR VOLUME 91 FL (80-99); MEAN PLATELET VOLUME 10.5 FL (7.4-10.4); MONOCYTES # (AUTO) 0.5 X 10^3 (0.0-1.0); MONOCYTES % (AUTO) 11 % (0-12); NEUTROPHILS # (AUTO) 2.6 X 10^3 (1.8-7.8); NEUTROPHILS % (AUTO) 57 % (42-75); PLATELET COUNT 314 10^3/uL (130-400); RED BLOOD COUNT 3.11 10^6/uL (4.35-5.85); RED CELL DISTRIBUTION WIDTH 14.3 % (10.0-14.5); WHITE BLOOD COUNT 4.6 10^3/uL (4.3-11.0)
[2016-12-11] MEDS: PIPERACILLIN/TAZOBACTAM 4.5 GM/NS 100 ML IVPB IV SCH ×2 (06:08)
[2016-12-11] MEDS: glipiZIDE 5 MG (GLUCOTROL) TAB PO SCH ×2 (06:08→18:36)
[2016-12-11] MEDS: CATHETER FLUSH 10 ML SYR IV SCH ×3 (06:09→22:00)
[2016-12-11 06:29] LABS: ANION GAP 7 MMOL/L (5-14); BLOOD UREA NITROGEN 7 MG/DL (7-18); BUN/CREATININE RATIO 11; CALCIUM 7.9 MG/DL (8.5-10.1); CARBON DIOXIDE 26 MMOL/L (21-32); CHLORIDE 108 MMOL/L (98-107); CREATININE SERUM 0.66 MG/DL (0.60-1.30); GFR ESTIMATED > 60; GLUCOSE 88 MG/DL (70-105); POTASSIUM 3.1 MMOL/L (3.6-5.0); SODIUM 141 MMOL/L (135-145)
[2016-12-11] MEDS: inSUlin (REGULAR) HUMAN 1 UNIT/0.01 ML (CHARGE PER UNIT) SC SCH ×4 (06:53→19:30)
[2016-12-11] MEDS: SILVER SULFADIAZINE 400 GM CREAM TOP SCH (07:41)
--- NOTE | 2016-12-11 07:47 | Podiatry Progress Note ---
Standard Progress Note Progress Notes/Assess & Plan Progress/Assessment & Plan Post op day #1. The patient is resting well. Pain was elevated yesterday but is under control today. Denies F/C/N/V. Outer dressing changed due to drainage. Dressing intact right foot this morning. No strike through. Bone culture as staph aureus. S/P amputation of right 2nd metatarsal and 2nd toe. Plan: Continue IV antibiotics. Non-weight bearing right foot. Will likely pull drain tomorrow. Final Diagnosis Osteomyelitis of right foot resulting in amputation KENNY RENAE DPM December 11, 2016 07:47
[2016-12-11] MEDS: doxAzosin 2 MG (CARDURA) TAB PO SCH ×2 (08:25→21:16)
[2016-12-11] MEDS: lisINopril 20 MG (ZESTRIL) TAB PO SCH (08:25)
[2016-12-11] MEDS: ENOXAPARIN 40 MG/0.4 ML (LOVENOX) SYR SC SCH (08:25)
[2016-12-11 08:32] VITALS: BP 112/62
--- NOTE | 2016-12-11 13:21 | Anesthesia-General Post-Op ---
General Patient Condition Mental Status/LOC: Same as Preop Cardiovascular: Satisfactory Nausea/Vomiting: Absent Respiratory: Satisfactory Pain: Controlled Complications: Absent Post Op Complications Complications None Follow Up Care/Instructions Patient Instructions None needed. Anesthesia/Patient Condition Patient Condition Patient is doing well, no complaints, stable vital signs, no apparent adverse anesthesia problems. No complications reported per nursing. ТАТЬЯНА VALDEZ CRNA December 11, 2016 13:21
--- NOTE | 2016-12-11 14:36 | Physical Therapy Evaluation ---
PT Evaluation-General Medical Diagnosis Admission Date December 06, 2016 at 22:16 Medical Diagnosis: osteomylitis/abscess right foot Onset Date: December 06, 2016 Therapy Diagnosis Therapy Diagnosis: generalized weakness and debility Height/Weight Height (Feet): 6 Height (Inches): 0.00 Weight (Pounds): 196 Weight (Ounces): 9.0 Precautions Precautions/Isolations: Fall Prevention, Standard Precautions Weight Bear Status Weight Bearing Restriction: Non Weight Bearing Location Restriction: RT FOOT Referral Physician: Pelon Reason for Referral: Evaluation/Treatment Medical History Pertinent Medical History: CAD, DM, Neuropathy, Smoking Additional Medical History liver 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 Current History EMS with right foot infection x 1 month with purulent drainage; right 1st metatarsal/toe amputation Reviewed History: Yes Social History Home: Single Level Current Living Status: Alone Entry Into Home: Level Entry Prior/Core FIM Prior Level of Function Functional [place] Measure 0=Not Assessed/NA 4=Minimal Assistance 1=Total Assistance 5=Supervision or Setup 2=Maximal Assistance 6=Modified [place] 3=Moderate Assistance 7=Complete [place] Bed Mobility: 7 Transfers (B,C,W/C) (FIM): 7 Gait: 6 uses cane at home PT Evaluation-Current Subjective Patient is very agreeable to participate with PT. No c/o at this time. Pain Numeric Pain Scale: 0-No Pain Location: No Pain Reported Pt/Family Goals patient reports he is going to live with his daughter upon dismissal from hospital, however, she works 12 hrs shifts and has 4 children Objective Patient Orientation: Normal For Age Problem Solving: Good Attachments: IV ROM/Strength ROM Lower Extremities bilateral LE WFL Strenght Lower Extremities right knee flexion/extension 4-/5; hip flexion 4-/5; ankle dorsi/plantarflexion NT left knee flexion/extension 4-/5; hip flexion 4-/5; ankle dorsi/plantarflexion 3 /5 Integumentary/Posture Integumentary refer to nursing notes Bowel Incontinence: No Bladder Incontinence: No Posture WNL Neuromuscular (Tone, Coordination, Reflexes) slightly diminished coordination due to neuropathy Sensory Vision: Functional Hearing: Functional Sensation Right Lower Extremit: Impaired Sensation Left Lower Extremity: Impaired Transfers Functional [place] Measure 0=Not Assessed/NA 4=Minimal Assistance 1=Total Assistance 5=Supervision or Setup 2=Maximal Assistance 6=Modified [place] 3=Moderate Assistance 7=Complete [place] Transfers (B, C, W/C) (FIM): 5 Scootin Rollin Supine to/from Sit: 7 Sit to/from Stand: 5 Gait Mode of Locomotion: Walk Anticipated Mode of Locomotion: Both Gait (FIM): 4 Distance (FIM): 3=150 ft Distance: 200' x 2 Gait Level of Assist: 4 Gait Persons Needed: 1 Comments/Gait Description knee scooter; CGA for safety with gait belt use Balance Sitting Static: Normal Sitting Dynamic: Normal Standing Static: Fair Standing Dynamic: Fair Assessment/Needs 66 y.o. male, will benefit from skilled PT to address functional strength and mobility to improve current LOF and to return to home with family or self with home health intervention. Patient is limited with mobility due to neuropathy and debility. Rehab Potential: Fair Post Rehab Potential-Barriers: compliance PT Breakdown Worker Goals Breakdown Worker Goals PT Half-Way Goals Time Frame: December 25, 2016 Transfers (B,C,W/C) (FIM): 7 Gait (FIM): 6 Gait distance (FIM): 3=150 ft Gait Level of Assist: 6 Gait Assistive Device: FWW (or knee scooter secondary to NWB) PT Plan Problem List Problem List: Activity Tolerance, Functional Strength, Safety, Balance, Gait Treatment/Plan Treatment Plan: Continue Plan of Care Treatment Plan: Education, Functional Activity Samuel, Functional Strength, Gait , Safety, Therapeutic Exercise, Transfers Treatment Duration: December 25, 2016 # of days/week 6 Visits Per Week: 11 Pt/Family Agrees w/Plan: Yes Safety Risks/Education Patient Education: Gait Training Teaching Recipient: Patient Teaching Methods: Demonstration, Discussion Response to Teaching: Verbalize Understanding, Return Demonstration Discharge Recommendations Therapy D/C Recommendations: Home w/ Family Support, Physical Therapy Home Care Equpiment Recommendations-D/C: Other, Please Explain (knee scooter) Time/GCodes Time In: 1340 Time Out: 1410 Total Billed Treatment Time: 30 Total Billed Treatment 1 visit [facility] 30 min EPIFANIO YA PT December 11, 2016 14:36
[2016-12-11] MEDS: ceFAZolin 1 GM/NS 50 ML IVPB IV SCH ×4 (14:54→21:16)
[2016-12-11 16:00] VITALS: BP 110/57
--- NOTE | 2016-12-11 16:00 | Occupational Therapy Eval ---
OT Evaluation-General/PLF Medical Diagnosis Admission Date December 06, 2016 at 22:16 Medical Diagnosis: osteomylitis/abscess right foot Onset Date: December 06, 2016 Therapy Diagnosis Therapy Diagnosis: decreased self care, decreased functional mobility, decreased activity chicho Height/Weight Height (Feet): 6 Height (Inches): 0.00 Weight (Pounds): 196 Weight (Ounces): 9.0 Precautions Precautions/Isolations: Fall Prevention, Standard Precautions Safety Interventions: None Weight Bear Status Weight Bearing Restriction: Non Weight Bearing Location Restriction: RT FOOT Referral Physician: Pelon Medical History Pertinent Medical History: CAD, DM, Neuropathy, Smoking Additional Medical History Liver transplant in 2002 so is immunosuppressed. Several surgeries for toe amputations. Chronic back pain. L eye partial blindness. Anxiety, depression. Hx hepatitis Current History About 1 month history with foot ulcer, now with abscess and osteomyelitis. Social History Home: Single Level Current Living Status: Alone Entry Into Home: Level Entry ADL-Prior Level of Function ADL PLOF Comments Pt said that he has been able to care for his basic self care needs but has had difficulty with house chores and would like to find a dental coordinator. He has a washer and dryer but dryer not hooked up. He also said bathroom needs repair and remodeling. DME/Equipment: Bath Chair Occupation: disabled. Worked as a [address] Self: Yes (but license has ) OT Current Status Subjective Pt seen in room, up in bed, agreeable to OT. No pain mentioned. Appearance Alert, cooperative Mental Status/Objective Attachments: Central Line, IV Current Glasses/Contacts: No Hearing Aids: No Dentures/Partials: No (no teeth) Hand Dominance: Right Upper Extremity ROM Grossly WFL bilat Upper Extremity Sensation Pt reported no difficulties with UEs Upper Extremity Strength Grossly 5/5 bilat ADL-Treatment ADL-Current Pt has been up today with PT and walked, using a scooter for R leg to manage weightbearing. Functional [place] Measure 0=Not Assessed/NA 4=Minimal Assistance 1=Total Assistance 5=Supervision or Setup 2=Maximal Assistance 6=Modified [place] 3=Moderate Assistance 7=Complete IndependenceIRFPAI Quality Coding Scale 6 Independent with activity with or without an assistive device 5 Patient requires set up or clean up by helper. Patient completes activity by themselves 4 Supervision or touching assist (CGA). [place] provide cues , steadying assist 3 The helper provides less than half the effort to complete the activity 2 The helper provides more than half the effort to complete the activity 1 Dependent. The helper does all the effort to complete an activity 7 Patient refused to complete or attempt activity 9 The patient did not perform the activity before the current illness or injury 88 Not attempted due to Medical conditions or safety concerns Education OT Patient Education: Purpose of tx/functional activities, Rehab process Teaching Recipient: Patient Teaching Methods: Discussion Response to Teaching: Verbalize Understanding OT Greenskeeper Supervisor Goals Greenskeeper Supervisor Goals Time Frame: December 25, 2016 Grooming(FIM): 6 Bathing(FIM): 6 Upper Body Dressing(FIM): 6 Lower Body Dressing(FIM): 6 Toileting(FIM): 6 Toilet/Commode Transfer(FIM): 6 Shower Transfer(FIM): 6 Additional Goals: 2-Verbalize Understanding, 3-ImproveStrength/Samuel 1=Demonstrate adherence to instructed precautions during ADL tasks. 2=Patient will verbalize/demonstrate understanding of assistive devices/ modifications for ADL. 3=Patient will improve strength/tolerance for activity to enable patient to perform ADL's. OT Education/Plan Problem List/Assessment Assessment: Decreased Activ Tolerance, Dependent Transfers, Impaired Funct Balance, Impaired Self-Care Skills Pt would benefit from skilled OT to increase his independence in basic self care to allow him to safely return home or to his daughter's house, after DC. Discharge Recommendations Plan/Recommendations: Continue POC Therapy D/C Recommendations: Occupational Therapy Home Care Treatment Plan/Plan of Care Treatment,Training & Education: Yes Patient would benefit from OT for education, treatment and training to promote independence in ADL's, mobility, safety and/or upper extremity function for ADL' s. Plan of Care: ADL Retraining, Functional Mobility, UE Funct Exercise/Act ( functional), UE Neuromus Re-Ed/Coord Treatment Duration: December 25, 2016 # of days/week 5 Visits Per Week: 5 Agreement: Yes Rehab Potential: Fair Time/GCodes Start Time: 15:30 Stop Time: 15:45 Total Time Billed (hr/min): 15 Billed Treatment Time visit, 15 minutes evaluation moderate intensity NORMA FENTON OT December 11, 2016 16:00
[2016-12-11] MEDS ORDERED: morphine INJ 4 MG/ML 1 ML (VIAL/SYRINGE) IVP PRN (18:00)
--- NOTE | 2016-12-11 19:01 | Progress Note (SOAP) ---
Subjective Subjective/Events-last exam States that his pain is much better controlled. Tolerating PO diet. PT to see patient today. Would like something for his bowel movements as they have been hard and small. Date seen by provider: December 11, 2016 Objective Exam Last Set of Vital Signs Vital Signs Date Time Temp Pulse Resp B/P (MAP) Pulse Ox O2 Delivery O2 Flow Rate FiO2 12/11/16 16:00 99.8 85 22 110/57 95 12/11/16 08:32 Room Air Capillary Refill : Less Than 3 Seconds I&O Intake and Output 12/11/16 00:00 Intake Total 2520 ml Output Total 2810 ml Balance -290 ml Intake Oral 320 ml IV Total 2200 ml Output Urine Total 2810 ml General: Alert, Oriented X3, Cooperative, No Acute Distress Lungs: Clear to Auscultation, Normal Air Movement Heart: Regular Rate, No Murmurs Abdomen: Normal Bowel Sounds, Soft, No Tenderness, No Masses Extremities: No Edema, Other (RLE swelling, no streaking present) Neuro: Normal Speech, Strength at 5/5 X4 Ext, Cranial Nerves 3-12 NL Psych/Mental Status: Mental Status NL, Mood NL Results/Procedures Lab Laboratory Tests 12/10/16 22:18: Glucometer 208H 12/11/16 05:55: White Blood Count 4.6, Red Blood Count 3.11L, Hemoglobin 9.0L, Hematocrit 28L, Mean Corpuscular Volume 91, Mean Corpuscular Hemoglobin 29, Mean Corpuscular Hemoglobin Concent 32, Red Cell Distribution Width 14.3, Platelet Count 314, Mean Platelet Volume 10.5H, Neutrophils (%) (Auto) 57, Lymphocytes (%) (Auto) 28 , Monocytes (%) (Auto) 11, Eosinophils (%) (Auto) 3, Basophils (%) (Auto) 1, Neutrophils # (Auto) 2.6, Lymphocytes # (Auto) 1.3, Monocytes # (Auto) 0.5, Eosinophils # (Auto) 0.1, Basophils # (Auto) 0.0, Sodium Level 141, Potassium Level 3.1L, Chloride Level 108H, Carbon Dioxide Level 26, Anion Gap 7, Blood Urea Nitrogen 7, Creatinine 0.66, Estimat Glomerular Filtration Rate > 60, BUN/ Creatinine Ratio 11, Glucose Level 88, Calcium Level 7.9L 12/11/16 09:56: Glucometer 95 12/11/16 15:04: Glucometer 140H Microbiology 12/06/16 Blood Culture - Preliminary, Resulted No growth 12/09/16 MRSA Screen - Final, Complete MRSA not isolated 12/10/16 Gram Stain - Final, Resulted 12/10/16 Anaerobic Culture, Resulted Pending 12/10/16 Surgical Culture - Preliminary, Resulted Gram Positive Cocci Radiology NAME: ERIBERTO RAMEY [facility] REC#: [id number] PT STATUS: REG ER : 1950 PHYSICIAN: SHAYNA GOMEZ MD ADMIT DATE: 12/06/16/ER Signed Date of Exam: 12/06/16 FOOT, RIGHT, 3 VIEW INDICATION: Foot ulcer. FINDINGS: There is some destructive change in the distal aspect of the second metatarsal and second toe. This is suspect for underlying osteomyelitis. There has been previous amputation of much of the first metatarsal and the great toe. IMPRESSION: Findings suspect for underlying osteomyelitis in the distal second metatarsal and toe. There is some soft tissue swelling. Dictated by: Dictated on workstation # [id number] Dict: 12/06/162132 Trans: 12/06/162138 Interpreted by: ZOILA WHELAN Electronically signed by: ZOILA WHELAN 12/06/162138 Assessment/Plan Assessment/Plan Admission Dx 1. Osteomyelitis second toe right foot 2. Abscess right foot 3. Diabetes mellitus 4. Previous liver transplant Plan 66 yo M that was admitted with diabetic foot wound with underlying osteomyelitis 1. Osteomyelitis second toe right foot s/p amputation POD #1 - Continue Zosyn, Will wait for c/s from amputation, will discuss antibiotic length with Dr Edwards, if ok with him could use PO keflex - Inpatient rehab consult pending 2. Bacteremia - Continue IV antibiotics 3. Abscess right foot - Antibiotics as above 4. Diabetes mellitus - We will maintain him on home medication and adjust as appropriate - Holding Metformin in case patient needs contrast - A1c 9.1, Uncontrolled 5. Previous liver transplant - Has not been on medications for over a year - Encouraged patient to re establish with transplant doctors as outpatient 6. Normocytic Anemia - Will get iron studies, likely mixed with chronic dz, no signs of acute bleeding at this time 7. Hypokalemia - replace PO, repeat BMP in AM 8. Constipation - Will start Miralax and Senna FEN: ADA diet DVT PPX: SCDs then start lovenox when ok with Dr Edwards Dispo: Continue inpt admit SW: Consulted and following patient Diagnosis/Problems: Clinical Quality Measures DVT/VTE Risk/Contraindication: Risk Factor Score Per Nursin RFS Level Per Nursing on Admit: 4+=Very High ANA QUINTANA MD December 11, 2016 19:01
[2016-12-11] MEDS: SENNA W/DOCUSATE (SENOKOT S) TABLET PO SCH (21:16)
[2016-12-11] MEDS: POLYETHYLENE GLYCOL 17 GM (MIRALAX) PACK PO SCH (21:16)
[2016-12-12] MEDS: KETOROLAC 30 MG/ML VIAL IVP PRN ×3 (00:44→15:04)
[2016-12-12 00:45] VITALS: BP 104/60
[2016-12-12] MEDS: NS IV 1000 ML 1,000 ML IV SCH (02:02)
[2016-12-12] MEDS: oxyCODONE/APAP 5/325MG (PERCOCET 5) TABLET PO PRN ×4 (02:02→16:23)
[2016-12-12] MEDS: glipiZIDE 5 MG (GLUCOTROL) TAB PO SCH ×2 (06:10→18:59)
[2016-12-12] MEDS: CATHETER FLUSH 10 ML SYR IV SCH ×2 (06:14→15:05)
[2016-12-12] MEDS: ceFAZolin 1 GM/NS 50 ML IVPB IV SCH ×6 (06:15→15:04)
[2016-12-12] MEDS: inSUlin (REGULAR) HUMAN 1 UNIT/0.01 ML (CHARGE PER UNIT) SC SCH ×3 (06:15→15:05)
[2016-12-12 06:17] LABS: BASOPHILS % (AUTO) 0 % (0-10); EOSINOPHILS # (AUTO) 0.2 10^3/uL (0.0-0.3); EOSINOPHILS % (AUTO) 5 % (0-10); LYMPHOCYTES # (AUTO) 1.6 X 10^3 (1.0-4.0); LYMPHOCYTES % (AUTO) 45 % (12-44); MEAN CORPUSCULAR HEMOGLOBIN 29 PG (25-34); MEAN CORPUSCULAR HGB CONC 31 G/DL (32-36); MEAN CORPUSCULAR VOLUME 91 FL (80-99); MEAN PLATELET VOLUME 11.4 FL (7.4-10.4); MONOCYTES # (AUTO) 0.5 X 10^3 (0.0-1.0); MONOCYTES % (AUTO) 13 % (0-12); NEUTROPHILS # (AUTO) 1.4 X 10^3 (1.8-7.8); NEUTROPHILS % (AUTO) 38 % (42-75); PLATELET COUNT 310 10^3/uL (130-400); RED BLOOD COUNT 3.12 10^6/uL (4.35-5.85); RED CELL DISTRIBUTION WIDTH 14.8 % (10.0-14.5); WHITE BLOOD COUNT 3.6 10^3/uL (4.3-11.0)
[2016-12-12 07:13] LABS: ANION GAP 4 MMOL/L (5-14); BLOOD UREA NITROGEN 10 MG/DL (7-18); BUN/CREATININE RATIO 16; CARBON DIOXIDE 27 MMOL/L (21-32); CHLORIDE 113 MMOL/L (98-107); CREATININE SERUM 0.61 MG/DL (0.60-1.30); GFR ESTIMATED > 60; GLUCOSE 106 MG/DL (70-105); POTASSIUM 3.4 MMOL/L (3.6-5.0); SODIUM 144 MMOL/L (135-145)
--- NOTE | 2016-12-12 07:34 | Podiatry Progress Note ---
Standard Progress Note Progress Notes/Assess & Plan Progress/Assessment & Plan Post op day #2. The patient is resting well. Pain was elevated yesterday after morphine was withdrawn but is under control today. Denies F/C/N/V. Dressing and drain intact right foot. Removed dressing, sutures intact with no necrosis to the amputation site, right foot. Bone culture as staph aureus. S/P amputation of right 2nd metatarsal and 2nd toe. Plan: Continue IV antibiotics. Non-weight bearing right foot. Will likely remove sutures in one week. Okay to transition to PO medications if desired. Okay to discharge non-weight bearing right foot with surgical splint shoe right. If discharged, he can follow up in office in one week. Final Diagnosis Osteomyelitis with amputation right foot. KENNY RENAE DPM December 12, 2016 07:34
[2016-12-12 08:00] VITALS: BP 132/79
[2016-12-12] MEDS: ENOXAPARIN 40 MG/0.4 ML (LOVENOX) SYR SC SCH (08:09)
[2016-12-12] MEDS: lisINopril 20 MG (ZESTRIL) TAB PO SCH (08:10)
[2016-12-12] MEDS: POLYETHYLENE GLYCOL 17 GM (MIRALAX) PACK PO SCH (08:10)
[2016-12-12] MEDS: SENNA W/DOCUSATE (SENOKOT S) TABLET PO SCH (08:10)
[2016-12-12] MEDS: doxAzosin 2 MG (CARDURA) TAB PO SCH (08:13)
[2016-12-12] MEDS: SILVER SULFADIAZINE 400 GM CREAM TOP SCH (08:14)
--- NOTE | 2016-12-12 09:47 | Physical Therapy Daily Note ---
PT Daily Note-Current Subjective Patient is very agreeable to participate with PT. Pain Numeric Pain Scale: 5-Moderate Pain Location: Right Location Body Site: Thigh Pain Description: Ache Appearance right foot dressing intact Mental Status Patient Orientation: Normal For Age Attachments: IV Transfers Functional [place] Measure 0=Not Assessed/NA 4=Minimal Assistance 1=Total Assistance 5=Supervision or Setup 2=Maximal Assistance 6=Modified [place] 3=Moderate Assistance 7=Complete IndependenceIRFPAI Quality Coding Scale 6 Independent with activity with or without an assistive device 5 Patient requires set up or clean up by helper. Patient completes activity by themselves 4 Supervision or touching assist (CGA). [place] provide cues , steadying assist 3 The helper provides less than half the effort to complete the activity 2 The helper provides more than half the effort to complete the activity 1 Dependent. The helper does all the effort to complete an activity 7 Patient refused to complete or attempt activity 9 The patient did not perform the activity before the current illness or injury 88 Not attempted due to Medical conditions or safety concerns Transfers (B, C, W/C) (FIM): 6 Scootin Rollin Supine to/from Sit: 7 Sit to/from Stand: 6 Weight Bearing Weight Bearing Restriction: Non Weight Bearing Location Restriction: R LE Gait Training Gait (FIM): 5 Distance (FIM): 3=150 ft Distance: 350' Gait Level of Assist: 5 Gait Persons Needed: 1 with knee scooter (patient will require this device upon dismissal to maintain NWB right LE.) Exercises Supine Ex: Ankle pumps, Quad Set, Heel Slides, Straight leg raise Supine Reps: 25 Seated Therapy Exercises: Ankle pumps, Long arc quads Seated Reps: 25 Assessment Patient is tolerating increase in activity. From a PT standpoint, patient will require home health intervention upon dismissal from hospital. PT Alf Goals Alf Goals PT Application Specialist Goals Time Frame: December 25, 2016 Transfers (B,C,W/C) (FIM): 7 Gait (FIM): 6 Gait distance (FIM): 3=150 ft Gait Level of Assist: 6 Gait Assistive Device: FWW (or knee scooter secondary to NWB) PT Plan Treatment/Plan Treatment Plan: Continue Plan of Care Treatment Plan: Education, Functional Activity Samuel, Functional Strength, Gait , Safety, Therapeutic Exercise, Transfers Treatment Duration: December 25, 2016 Visits Per Week: 11 Discharge Recommendations Therapy D/C Recommendations: Physical Therapy Home Care Equpiment Recommendations-D/C: Other, Please Explain (knee scooter) Time/GCodes Time In: 905 Time Out: 928 Total Billed Treatment Time: 23 Total Billed Treatment 1 visit GT 13 min EX 10 min EPIFANIO YA PT December 12, 2016 09:47
--- NOTE | 2016-12-12 11:40 | Discharge Summary ---
Diagnosis/Chief Complaint Date of Admission December 06, 2016 at 22:16 Date of Discharge Admission Diagnosis Admission Diagnosis 1. Osteomyelitis second toe right foot 2. Abscess right foot 3. Diabetes mellitus 4. Previous liver transplant Chief Complaint/HPI Chief Complaint/HPI 66-year-old male admitted through the emergency department with a right foot that has been with a wound for approximately 1 month. Apparently the wound has been draining as well. He does see Dr. Vergara as his primary care physician through [facility]. Patient has also had liver transplant and is on medication that makes him immunocompromise. He also is diabetic. He denies any significant fever or any chills. Patient had prior amputation on the side that is involved. Discharge Summary-Simple/Stand Consultations Discharge Physical Examination Allergies: Coded Allergies: NKANo Known Allergies (Verified Allergy, Unknown, 11/24/05) Vitals & I&Os Vital Sign - Last 12Hours Date Time Temp Pulse Resp B/P (MAP) Pulse Ox O2 Delivery O2 Flow Rate FiO2 12/12/16 08:00 97.8 45 20 132/79 99 12/11/16 08:32 Room Air Intake and Output 12/12/16 00:00 Intake Total 1430 ml Output Total 975 ml Balance 455 ml Hospital Course See final discharge diagnosis. Radiology Reviewed NAME: ERIBERTO RAMEY [facility] REC#: [id number] PT STATUS: REG ER : 1950 PHYSICIAN: SHAYNA GOMEZ MD ADMIT DATE: 12/06/16/ER Signed Date of Exam: 12/06/16 FOOT, RIGHT, 3 VIEW INDICATION: Foot ulcer. FINDINGS: There is some destructive change in the distal aspect of the second metatarsal and second toe. This is suspect for underlying osteomyelitis. There has been previous amputation of much of the first metatarsal and the great toe. IMPRESSION: Findings suspect for underlying osteomyelitis in the distal second metatarsal and toe. There is some soft tissue swelling. Dictated by: Dictated on workstation # [id number] Dict: 12/06/162132 Trans: 12/06/162138 Interpreted by: ZOILA WHELAN Electronically signed by: ZOILA WHELAN 12/06/162138 Discharge Instructions to patient/family Please see electonic discharge instructions given to patient. Discharge Medications Reviewed and agree with Discharge Medication list on patient's Discharge Instruction sheet Clinical Quality Measures DVT/VTE Risk/Contraindication: Risk Factor Score Per Nursin RFS Level Per Nursing on Admit: 4+=Very High ANA QUINTANA MD December 12, 2016 11:40
[2016-12-12] MEDS ORDERED: LISI-552 PO (11:43)
[2016-12-12] MEDS ORDERED: GLIP5TAB13 PO (11:43)
[2016-12-12] MEDS ORDERED: DOXA2TAB2 PO (11:43)
[2016-12-12] MEDS ORDERED: SILV20CR14 TOP (11:43)
[2016-12-12] MEDS ORDERED: METF500T4 PO (11:43)
[2016-12-12] MEDS ORDERED: CEPH-507 PO (11:49)
--- NOTE | 2016-12-12 11:50 | Discharge Instructions ---
Discharge [facility] Discharge Medications New, Converted or Re-Newed RX: Transmitted to Pharmacy New Medications: Cephalexin (Keflex) 500 Mg Capsule 500 MG PO TID for 14 Days, #42 CAP Doxazosin Mesylate (Doxazosin Mesylate) 2 Mg Tablet 2 MG PO BID for 30 Days, #60 TAB Glipizide (Glipizide) 5 Mg Tablet 5 MG PO BID WITH MEALS for 30 Days, #60 TAB Lisinopril (Lisinopril) 20 Mg Tablet 20 MG PO DAILY for 30 Days, #30 TAB Metformin HCl (Metformin HCl) 500 Mg Tablet 1000 MG PO BID WITH MEALS for 30 Days, #60 TAB Silver Sulfadiazine (Silvadene) 20 Gm Cream..g. 0 GM TOP DAILY for 30 Days, #1 TUBE Patient Instructions Goal/Follow Up Appt: You have a follow up with Dr Quiñonez on December 18 @ 2pm at [facility] Please make sure you keep your followup with Dr Edwards Patient Instructions: [facility] Orders - Nursing care for medications and wound care - PT/OT Eval and Treat Return to The Hospital For: Unable to tolerate antibiotics Increase in pain Activity & Diet Discharge Diet: ADA Diet Activity as Tolerated: Yes Copy Copies To 1: SUSAN QUIÑONEZ MD, HOLLY R MD December 12, 2016 11:48
--- NOTE | 2016-12-12 14:18 | Occupational Ther Daily Note ---
OT Current Status-Daily Note Subjective Pt seen in room, up in bed, agreeable to OT. Anticipating DC today to either his house or his daughter's house. No pain mentioned. Appearance Alert, cooperative Mental Status/Objective Functional [place] Measure 0=Not Assessed/NA 4=Minimal Assistance 1=Total Assistance 5=Supervision or Setup 2=Maximal Assistance 6=Modified [place] 3=Moderate Assistance 7=Complete [place] ADL-Treatment Pt education on resources and equipment available to assist him with ADLs. He thinks he has a toilet riser at home but is not sure where it is. He has a bathtub at his house and won't be able to step into the tub for bathing. He has created a shower chair at home from plastic crates but he may have difficulty getting on it. It is unknown what ADL equipment he might need at his daughter's house. Home health OT is recommended and further ADLs can be addressed then. DC OT due to pt discharge Pt declined ADL training for dressing and toileting. OT Short Term Goals Short Term Goals 1=Demonstrate adherence to instructed precautions during ADL tasks. 2=Patient will verbalize/demonstrate understanding of assistive devices/ modifications for ADL. 3=Patient will improve strength/tolerance for activity to enable patient to perform ADL's. OT [facility] Goals [facility] Goals Time Frame: December 25, 2016 Grooming(FIM): 6 Bathing(FIM): 6 Upper Body Dressing(FIM): 6 Lower Body Dressing(FIM): 6 Toileting(FIM): 6 Toilet/Commode Transfer(FIM): 6 Shower Transfer(FIM): 6 Additional Goals: 2-Verbalize Understanding (goal met), 3-ImproveStrength/Samuel 1=Demonstrate adherence to instructed precautions during ADL tasks. 2=Patient will verbalize/demonstrate understanding of assistive devices/ modifications for ADL. 3=Patient will improve strength/tolerance for activity to enable patient to perform ADL's. OT Education/Plan Problem List/Assessment Pt would benefit from skilled OT to increase his independence in basic self care to allow him to safely return home or to his daughter's house, after DC. Discharge Recommendations Plan/Recommendations: Discharge/Goals Met (see tx plan for specifics) Treatment Plan/Plan of Care Patient would benefit from OT for education, treatment and training to promote independence in ADL's, mobility, safety and/or upper extremity function for ADL' s. Plan of Care: ADL Retraining, Functional Mobility, UE Funct Exercise/Act ( functional), UE Neuromus Re-Ed/Coord Treatment Duration: December 25, 2016 Visits Per Week: 5 Agreement: Yes Rehab Potential: Fair Time/GCodes Start Time: 14:00 Stop Time: 14:10 Total Time Billed (hr/min): 10 Billed Treatment Time visit, 10 minutes ADL NORMA FENTON OT December 12, 2016 14:18
[2016-12-12 16:00] VITALS: BP 148/88
[2016-12-12 19:30] VITALS: BP 148/88
== END 2016-12-12 19:50 | disposition home health service (06) | DRG 629 ==
LOC: EDUNIT# 21:06 → ER 21:08 → 4TH 22:16
PROVIDERS: ADMIT Family Medicine; ATTEND Family Medicine
PROC: 0ST Lower Joints, Resection (ICD-10-PCS; principal; 2016-12-10 12:15)
DX: E11.69 Type 2 diabetes mellitus with other specified complication (principal); M86.9 Osteomyelitis, unspecified; L02.611 Cutaneous abscess of right foot; E11.621 Type 2 diabetes mellitus with foot ulcer; Z94.4 Liver transplant status; E11.42 Type 2 diabetes mellitus with diabetic polyneuropathy; D64.9 Anemia, unspecified; E87.6 Hypokalemia; S90.422A Blister (nonthermal), left great toe, initial encounter; L57.0 Actinic keratosis; M20.41 Other hammer toe(s) (acquired), right foot; M20.42 Other hammer toe(s) (acquired), left foot; F41.9 Anxiety disorder, unspecified; F32.9 Major depressive disorder, single episode, unspecified; M54.9 Dorsalgia, unspecified; H54.7 Unspecified visual loss; M19.91 Primary osteoarthritis, unspecified site; K59.00 Constipation, unspecified; Z79.84 Long term (current) use of oral hypoglycemic drugs; Z87.891 Personal history of nicotine dependence; Z79.899 Other long term (current) drug therapy
CPT/HCPCS: 36415; 73630; 80048; 80053; 80202; 82728; 82962; 83036; 83540; 83605; 85025; 85652; 87040; 87070; 87075; 87077; 87081; 87186; 87205; 96361; 96365

== ENCOUNTER 2017-08-31 23:49 | Inpatient (IN) | payer MEDICARE, MEDICAID ==
[~2017-08-31] VITALS: Ht 182.9 cm; Wt 91.6 kg
[~2017-08-31 23:49] MED LIST changes: +CEPH-507 PO; +METF500T4 PO; +OXYC-471 PO; +SILV20CR14 TOP
--- OUTSIDE RECORDS SUMMARY | 2017-09-01 00:01 | XMS REPORT | Clinical Summary ---
Author Author [facility] Organization [facility] Address Unknown Phone Unavailable Care Team Providers Care Artist'S Model Name Role Phone Bronson Dahl MD PCP Source Comments Some departments are not documenting in the electronic medical record. If you do not see the information that you expected, contact Release of Information in the Health Information Management department at [phone] for further assistance in locating additional records.[facility] Allergies Not on File Current Medications Not on file Active Problems Not on file Social History Tobacco Use Types Packs/Day Years Used Date Never Assessed Sex Assigned at Date Recorded Not on file Last Filed Vital Signs Not on file Plan of Treatment Health Maintenance Due Date Last Done Comments HEPATITIS C SCREENING 1950 PHYSICAL (COMPREHENSIVE) 11/15/1959 EXAM PERTUSSIS VACCINE 11/15/1963 TETANUS VACCINE 1969 COLORECTAL CANCER 2002 SCREENING SHINGLES VACCINE 2012 INFLUENZA VACCINE 03/03/2017 Results Not on filefrom Last 3 Months
--- OUTSIDE RECORDS SUMMARY | 2017-09-01 00:01 | XMS REPORT ---
Author Author SUSAN QUIÑONEZ [facility] Address [address] [place] [address] Care Team Providers Care Market Research Senior Project Manager Name Role Phone SUSAN QUIÑONEZ Unavailable PROBLEMS Type Condition ICD9-CM Code [id number] Code Onset Dates Condition Status SNOMED Code Problem Unspecified osteomyelitis, ankle and foot 730.27 Active 53087453 Problem DTAP TEST V06.1 Active Problem Osteomyelitis, unspecified M86.9 Active 23546054 Problem Anemia due to other cause D64.89 Active 348688216 Problem Back pain M54.9 Active 200139421 Problem Diabetes E11.9 Active 991028196 Problem Liver transplant recipient Z94.4 Active 828715303 Problem Depressive disorder, not elsewhere classified F32.9 Active 46110618 ALLERGIES No Information SOCIAL HISTORY Never Assessed PLAN OF CARE VITAL SIGNS MEDICATIONS Medication Instructions Dosage Frequency Start Date End Date Duration Status Glucometer 1 glucometer subcutaneously 3 times a day use to check Blood sugars 8h December, Active Blood Glucose Test - subcutaneously 3 times a day to check blood sugar 8h December, Active RESULTS No Results PROCEDURES No Known procedures IMMUNIZATIONS No Known Immunizations MEDICAL (GENERAL) HISTORY Type Description Date Medical History diabetic nephropathy Medical History diabetes mellitus Medical History liver transplant Medical History osteoporosis Medical History arthritis Medical History Hypertension Surgical History amputation, toes december 2016 Surgical History liver transplant Surgical History cholecystectomy Surgical History tonsillectomy Surgical History appendectomy Hospitalization History liver transplant Hospitalization History Osteomylitis, Abcess to right foot,-[facility] 12/06/16
--- OUTSIDE RECORDS SUMMARY | 2017-09-01 00:02 | XMS REPORT ---
Author Author SUSAN QUIÑONEZ [facility] Address [address] [place] [address] Care Team Providers Care Fixed Income Analyst Name Role Phone SUSAN QUIÑONEZ Unavailable PROBLEMS Type Condition ICD9-CM Code [id number] Code Onset Dates Condition Status SNOMED Code Problem Unspecified osteomyelitis, ankle and foot 730.27 Active 96509300 Problem DTAP TEST V06.1 Active Problem Osteomyelitis, unspecified M86.9 Active 32498949 Problem Anemia due to other cause D64.89 Active 653958145 Problem Back pain M54.9 Active 978395096 Problem Diabetes E11.9 Active 398246811 Problem Liver transplant recipient Z94.4 Active 433759203 Problem Depressive disorder, not elsewhere classified F32.9 Active 11525827 ALLERGIES No Information SOCIAL HISTORY Never Assessed PLAN OF CARE VITAL SIGNS MEDICATIONS Unknown Medications RESULTS No Results PROCEDURES No Known procedures [...] transplant Hospitalization History Osteomylitis, Abcess to right foot,-[facility] 12/06/16
--- OUTSIDE RECORDS SUMMARY | 2017-09-01 00:03 | XMS REPORT ---
Author Author ANA QUINTANA [facility] Address [address] [place] [address] Care Team Providers Care Locomotive Crane Operator Helper Name Role Phone ANA QUINTANA Unavailable PROBLEMS Type Condition ICD9-CM Code [id number] Code Onset Dates Condition Status SNOMED Code Problem Unspecified osteomyelitis, ankle and foot 730.27 Active 18515080 Problem DTAP TEST V06.1 Active Problem Osteomyelitis, unspecified M86.9 Active 72947255 Problem Anemia due to other cause D64.89 Active 202521609 Problem Back pain M54.9 Active 996200004 Problem Diabetes E11.9 Active 136599112 Problem Liver transplant recipient Z94.4 Active 779918380 Problem Depressive disorder, not elsewhere classified F32.9 Active 89949937 ALLERGIES No Information SOCIAL HISTORY Never Assessed [...] transplant Hospitalization History Osteomylitis, Abcess to right foot,-[facility] 12/06/16
--- OUTSIDE RECORDS SUMMARY | 2017-09-01 00:03 | XMS REPORT ---
Author Author ANA QUINTANA Organization [facility] Address [address] [place] [address] Care Team Providers Care Activity Leader Name Role Phone ANA QUINTANA Unavailable PROBLEMS Type Condition ICD9-CM Code [id number] Code Onset Dates Condition Status SNOMED Code Problem Unspecified osteomyelitis, ankle and foot 730.27 Active 69442244 Problem DTAP TEST V06.1 Active Problem Osteomyelitis, unspecified M86.9 Active 19401149 Problem Anemia due to other cause D64.89 Active 160226413 Problem Back pain M54.9 Active 732559365 Problem Diabetes E11.9 Active 065478155 Problem Liver transplant recipient Z94.4 Active 064708314 Problem Depressive disorder, not elsewhere classified F32.9 Active 32782210 ALLERGIES No Information SOCIAL HISTORY Never Assessed PLAN OF CARE VITAL SIGNS MEDICATIONS Medication Instructions Dosage Frequency Start Date End Date Duration Status Doxazosin Mesylate 2 MG Orally 2 times a day 1 tablet 12h Active Lisinopril 20 mg take 1 tablet by Oral route 1 time per day Jul, Active GlipiZIDE 5 mg 1 tablet by Oral route 2 times per day Jul, Active metformin 1,000 mg take 1 tablet by Oral route 2 times per day with morning and evening mealsdiabetes med Jun, Active Cephalexin 500 mg Orally 3 times a day 1 capsule 8h December, December, Active RESULTS No Results PROCEDURES No [...] transplant Hospitalization History Osteomylitis, Abcess to right foot,-[facility] 12/06/16
--- OUTSIDE RECORDS SUMMARY | 2017-09-01 00:03 | XMS REPORT ---
Author Author SUSAN QUIÑONEZ [facility] Address [address] [place] [address] Care Team Providers Care Material Handling Supervisor Name Role Phone SUSAN QUIÑONEZ Unavailable PROBLEMS Type Condition ICD9-CM Code [id number] Code Onset Dates Condition Status SNOMED Code Problem Unspecified osteomyelitis, ankle and foot 730.27 Active 09395477 Problem DTAP TEST V06.1 Active Problem Osteomyelitis, unspecified M86.9 Active 62937185 Problem Anemia due to other cause D64.89 Active 283825044 Problem Back pain M54.9 Active 632375685 Problem Diabetes E11.9 Active 406996795 Problem Liver transplant recipient Z94.4 Active 318630702 Problem Depressive disorder, not elsewhere classified F32.9 Active 04706001 ALLERGIES No Known Allergies SOCIAL HISTORY Never Assessed PLAN OF CARE Activity Details Follow Up 3 Months Reason: VITAL SIGNS Height 72 in 2016-12-18 Weight 213 lbs 2016-12-18 Temperature 97.6 degrees Fahrenheit 2016-12-18 Heart Rate 82 bpm 2016-12-18 Respiratory Rate 20 2016-12-18 BMI 28.88 kg/m2 2016-12-18 Blood pressure systolic 112 mmHg 2016-12-18 Blood pressure diastolic 78 mmHg 2016-12-18 MEDICATIONS Medication Instructions Dosage Frequency Start Date End Date Duration Status metformin 1,000 mg take 1 tablet by Oral route 2 times per day with morning and evening mealsdiabetes med Jun, Active GlipiZIDE 5 mg 1 tablet by Oral route 2 times per day Jul, Active Oxycodone HCl 5 mg Orally 3 times a day 1 capsule as needed 8h December, Jan, 28 days Active Cephalexin 500 mg Orally 3 times a day 1 capsule 8h December, December, Active Glucometer 1 glucometer subcutaneously 3 times a day use to check Blood sugars 8h December, Active Blood Glucose Test - subcutaneously 3 times a day to check blood sugar 8h December, Active Doxazosin Mesylate 2 MG Orally 2 times a day 1 tablet 12h Active Lisinopril 20 mg take 1 tablet by Oral route 1 time per day Jul, Active RESULTS Name Result Date Reference Range A1C (IN HOUSE) 2016-12-18 A1C IN HOUSE 8.7 4.3 - 5.6 % Previous A1c 9.7 Lot [id number] Exp date 08/2018 PROCEDURES Procedure Date Ordered Result Body Site GLYCATED HEMOGLOBIN TEST December 18, 2016 [facility] V[facility] ESTABL[facility] PATIENT December 18, 2016 IMMUNIZATIONS No Known Immunizations MEDICAL (GENERAL) HISTORY Type Description Date Medical History diabetic nephropathy Medical History diabetes mellitus Medical History liver transplant Medical History osteoporosis Medical History arthritis Medical History Hypertension Surgical History amputation, toes december 2016 Surgical History liver transplant Surgical History cholecystectomy Surgical History tonsillectomy Surgical History appendectomy Hospitalization History liver transplant Hospitalization History Osteomylitis, Abcess to right foot,-[facility] 12/06/16
--- OUTSIDE RECORDS SUMMARY | 2017-09-01 00:05 | XMS REPORT | Continuity of Care Document ---
Author Author [facility] Address Unknown Phone Unavailable Allergies Active Description Code Type Severity Reaction Onset Reported/Identified Relationship to Patient Clinical Status Yes NKANo Known Allergies NKA Miscellaneous Allergy Unknown N/A 11/24/2005 Medications There is no data. 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, LIVER 02/26/2010 SUSAN QUIÑONEZ MD 401.1 HYPERTENSION, BENIGN ESSENTIAL 02/26/2010 SUSAN QUIÑONEZ MD.90 ARTHRITIS/ ARTHROPATHY, UNSPECIFIED 02/26/2010 SUSAN QUIÑONEZ MD 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, LIVER 02/26/2010 KHANG GALVEZ, SUSAN 401.1 HYPERTENSION, BENIGN ESSENTIAL 02/26/2010 KHANG GALVEZ, SUSAN 716.90 ARTHRITIS/ ARTHROPATHY, UNSPECIFIED 02/26/2010 KHANG GALVEZ, SUSAN 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, LIVER 02/26/2010 KHANG GALVEZ, SUSAN 401.1 HYPERTENSION, BENIGN ESSENTIAL 02/26/2010 KHANG GALVEZ, SUSAN 716.90 ARTHRITIS/ ARTHROPATHY, UNSPECIFIED 02/26/2010 KHANG GALVEZ, SUSAN 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, LIVER 02/26/2010 KHANG GALVEZ, SUSAN 401.1 HYPERTENSION, BENIGN ESSENTIAL 02/26/2010 KHANG GALVEZ, SUSAN Neves.90 ARTHRITIS/ ARTHROPATHY, UNSPECIFIED 02/26/2010 KHANG GALVEZ, SUSAN 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, LIVER 02/26/2010 KHANG GALVEZ, SUSAN 401.1 HYPERTENSION, BENIGN ESSENTIAL 02/26/2010 KHANG GALVEZ, SUSAN Neves.90 ARTHRITIS/ ARTHROPATHY, UNSPECIFIED 02/26/2010 KHANG GALVEZ, SUSAN 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, LIVER 02/26/2010 KHANG GALVEZ, SUSAN 401.1 HYPERTENSION, BENIGN ESSENTIAL 02/26/2010 KHANG GALVEZ, SUSAN 71Yaw.90 ARTHRITIS/ ARTHROPATHY, UNSPECIFIED 02/26/2010 KHANG GALVEZ, SUSAN 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, LIVER 02/26/2010 KHANG GALVEZ, SUSAN 401.1 HYPERTENSION, BENIGN ESSENTIAL 02/26/2010 KHANG GALVEZ, SUSAN Neves.90 ARTHRITIS/ ARTHROPATHY, UNSPECIFIED 02/26/2010 KHANG GALVEZ, SUSAN 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, LIVER 02/26/2010 KHANG GALVEZ, SUSAN 401.1 HYPERTENSION, BENIGN ESSENTIAL 02/26/2010 KHANG GALVEZ, SUSAN Neves.90 ARTHRITIS/ ARTHROPATHY, UNSPECIFIED 02/26/2010 KHANG GALVEZ, SUSAN 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, LIVER 02/26/2010 KHANG GALVEZ, SUSAN 401.1 HYPERTENSION, BENIGN ESSENTIAL 02/26/2010 KHANG GALVEZ, SUSAN Neves.90 ARTHRITIS/ ARTHROPATHY, UNSPECIFIED 02/26/2010 SUSAN QUIÑONEZ MD 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, LIVER 02/26/2010 401.1 HYPERTENSION, BENIGN ESSENTIAL 02/26/2010 716.90 ARTHRITIS/ ARTHROPATHY, UNSPECIFIED 02/26/2010 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, LIVER 08/26/2010 SUSAN QUIÑONEZ MD 686.9 UNSPECIFIED LOCAL INFECTION OF SKIN AND SUBCUTANEOUS TISSUE 08/26/2010 SUSAN QUIÑONEZ MD 686.9 UNSPECIFIED LOCAL INFECTION OF SKIN AND SUBCUTANEOUS TISSUE 08/26/2010 SUSAN QUIÑONEZ MD 686.9 UNSPECIFIED LOCAL INFECTION OF SKIN AND SUBCUTANEOUS TISSUE 08/26/2010 SUSAN QUIÑONEZ MD 686.9 UNSPECIFIED LOCAL INFECTION OF SKIN AND SUBCUTANEOUS TISSUE 08/26/2010 COLBY LOVE DO 686.9 UNSPECIFIED LOCAL INFECTION OF SKIN AND SUBCUTANEOUS TISSUE 08/26/2010 SUSAN QUIÑONEZ MD 686.9 UNSPECIFIED LOCAL INFECTION OF SKIN AND SUBCUTANEOUS TISSUE 08/26/2010 SUSAN QUIÑONEZ MD 686.9 UNSPECIFIED LOCAL INFECTION OF SKIN AND SUBCUTANEOUS TISSUE 08/26/2010 SUSAN QUIÑONEZ MD 686.9 UNSPECIFIED LOCAL INFECTION OF SKIN AND SUBCUTANEOUS TISSUE 08/26/2010 SUSAN QUIÑONEZ MD 686.9 UNSPECIFIED LOCAL INFECTION OF SKIN AND SUBCUTANEOUS TISSUE 08/26/2010 SUSAN QUIÑONEZ MD 686.9 UNSPECIFIED LOCAL INFECTION OF SKIN AND SUBCUTANEOUS TISSUE 08/26/2010 SUSAN QUIÑONEZ MD 686.9 UNSPECIFIED LOCAL INFECTION OF SKIN AND SUBCUTANEOUS TISSUE 08/26/2010 SUSAN QUIÑONEZ MD 686.9 UNSPECIFIED LOCAL INFECTION OF SKIN AND SUBCUTANEOUS TISSUE 08/26/2010 SUSAN QUIÑONEZ MD 686.9 UNSPECIFIED LOCAL INFECTION OF SKIN AND SUBCUTANEOUS TISSUE 08/26/2010 SUSAN QUIÑONEZ MD 686.9 UNSPECIFIED LOCAL INFECTION OF SKIN AND SUBCUTANEOUS TISSUE 08/26/2010 686.9 UNSPECIFIED LOCAL INFECTION OF SKIN AND SUBCUTANEOUS TISSUE 10/28/2010 SUSAN QUIÑONEZ MD 461.9 Acute Sinusitis Unspecified 10/28/2010 SUSAN QUIÑONEZ MD 783.21 LOSS OF WEIGHT 10/28/2010 SUSAN QUIÑONEZ MD 461.9 Acute Sinusitis Unspecified 10/28/2010 SUSAN QUIÑONEZ MD 783.21 LOSS OF WEIGHT 10/28/2010 SUSAN QUIÑONEZ MD 461.9 Acute Sinusitis Unspecified 10/28/2010 SUSAN QUIÑONEZ MD 783.21 LOSS OF WEIGHT 10/28/2010 SUSAN QUIÑONEZ MD 461.9 Acute Sinusitis Unspecified 10/28/2010 SUSAN QUIÑONEZ MD 783.21 LOSS OF WEIGHT 10/28/2010 COLBY LOVE DO 461.9 Acute Sinusitis Unspecified 10/28/2010 LOVE COLBY MONTIEL 783.21 LOSS OF WEIGHT 10/28/2010 SUSAN QUIÑONEZ MD 461.9 Acute Sinusitis Unspecified 10/28/2010 SUSAN QUIÑONEZ MD 783.21 LOSS OF WEIGHT 10/28/2010 SUSAN QUIÑONEZ MD 461.9 Acute Sinusitis Unspecified 10/28/2010 SUSAN QUIÑONEZ MD 783.21 LOSS OF WEIGHT 10/28/2010 SUSAN QUIÑONEZ MD 461.9 Acute Sinusitis Unspecified 10/28/2010 SUSAN QUIÑONEZ MD 783.21 LOSS OF WEIGHT 10/28/2010 SUSAN QUIÑONEZ MD 461.9 Acute Sinusitis Unspecified 10/28/2010 SUSAN QUIÑONEZ MD 783.21 LOSS OF WEIGHT 10/28/2010 SUSAN QUIÑONEZ MD 461.9 Acute Sinusitis Unspecified 10/28/2010 SUSAN QUIÑONEZ MD 783.21 LOSS OF WEIGHT 10/28/2010 SUSAN QUIÑONEZ MD 461.9 Acute Sinusitis Unspecified 10/28/2010 SUSAN QUIÑONEZ MD 783.21 LOSS OF WEIGHT 10/28/2010 SUSAN QUIÑONEZ MD 461.9 Acute Sinusitis Unspecified 10/28/2010 SUSAN QUIÑONEZ MD 783.21 LOSS OF WEIGHT 10/28/2010 SUSAN QUIÑONEZ MD 461.9 Acute Sinusitis Unspecified 10/28/2010 SUSAN QUIÑONEZ MD 783.21 LOSS OF WEIGHT 10/28/2010 SUSAN QUIÑONEZ MD 461.9 Acute Sinusitis Unspecified 10/28/2010 SUSAN QUIÑONEZ MD 783.21 LOSS OF WEIGHT 10/28/2010 461.9 ACUTE SINUSITIS UNSPECIFIED 10/28/2010 783.21 LOSS OF WEIGHT 11/21/2010 SUSAN QUIÑONEZ MD 133.0 Scabies 11/21/2010 KHANG GALVEZ, SUSAN 466.0 ACUTE BRONCHITIS 11/21/2010 KHANG GALVEZ, SUSAN 133.0 Scabies 11/21/2010 KHANG GALVEZ, SUSAN 466.0 ACUTE BRONCHITIS 11/21/2010 KHANG GALVEZ, SUSAN 133.0 Scabies 11/21/2010 KHANG GALVEZ, SUSAN 466.0 ACUTE BRONCHITIS 11/21/2010 KHANG GALVEZ, SUSAN 133.0 Scabies 11/21/2010 KHANG GALVEZ, SUSAN 466.0 ACUTE BRONCHITIS 11/21/2010 LOVE DO, COLBY K 133.0 Scabies 11/21/2010 LOVE DO, COLBY K 466.0 ACUTE BRONCHITIS 11/21/2010 KHANG GALVEZ, SUSAN 133.0 Scabies 11/21/2010 KHANG GALVEZ, SUSAN 466.0 ACUTE BRONCHITIS 11/21/2010 KHANG GALVEZ, SUSAN 133.0 Robinbies 11/21/2010 KHANG GALVEZ, SUSAN 466.0 ACUTE BRONCHITIS 11/21/2010 KHANG GALVEZ, SUSAN 133.0 Robinbies 11/21/2010 KHANG GALVEZ, SUSAN 466.0 ACUTE BRONCHITIS 11/21/2010 KHANG GALVEZ, SUSAN 133.0 Robinbies 11/21/2010 KHANG GALVEZ, SUSAN 466.0 ACUTE BRONCHITIS 11/21/2010 KHANG GALVEZ, SUSAN 133.0 Robinbies 11/21/2010 KHANG GALVEZ, SUSAN 466.0 ACUTE BRONCHITIS 11/21/2010 KHANG GALVEZ, SUSAN 133.0 Robinbies 11/21/2010 KHANG GALVEZ, SUSAN 466.0 ACUTE BRONCHITIS 11/21/2010 KHANG GALVEZ, SUSAN 133.0 Robinbies 11/21/2010 KHANG GALVEZ, SUSAN 466.0 ACUTE BRONCHITIS 11/21/2010 KHANG GALVEZ, SUSAN 133.0 Robinbies 11/21/2010 KHANG GALVEZ, SUSAN 466.0 ACUTE BRONCHITIS 11/21/2010 KHANG GALVEZ, SUSAN 133.0 Robinbies 11/21/2010 KHANG GALVEZ, SUSAN 466.0 ACUTE BRONCHITIS 11/21/2010 133.0 SCABIES 11/21/2010 466.0 ACUTE BRONCHITIS 01/24/2011 KHANG GLAVEZ, SUSAN 380.10 OTITIS EXTERNA 01/24/2011 KHANG GALVEZ, SUSAN 380.10 OTITIS EXTERNA 01/24/2011 KHANG GALVEZ, SUSAN 380.10 OTITIS EXTERNA 01/24/2011 KHANG GALVEZ, SUSAN 380.10 OTITIS EXTERNA 01/24/2011 LOVE COLBY Nirmal 380.10 OTITIS EXTERNA 01/24/2011 KHANG GALVEZ, SUSAN 380.10 OTITIS EXTERNA 01/24/2011 KHANG GALVEZ, SUSAN 380.10 OTITIS EXTERNA 01/24/2011 KHANG GALVEZ, SUSAN 380.10 OTITIS EXTERNA 01/24/2011 KHANG GALVEZ, SUSAN 380.10 OTITIS EXTERNA 01/24/2011 KHANG GALVEZ, SUSAN 380.10 OTITIS EXTERNA 01/24/2011 KHANG GALVEZ, SUSAN 380.10 OTITIS EXTERNA 01/24/2011 KHANG GALVEZ, SUSAN 380.10 OTITIS EXTERNA 01/24/2011 KHANG GALVEZ, SUSAN 380.10 OTITIS EXTERNA 01/24/2011 KHANG GALVEZ, SUSAN 380.10 OTITIS EXTERNA 01/24/2011 380.10 OTITIS EXTERNA 03/14/2011 KHANG GALVEZ, SUSAN V58.69 MEDICATION HIGH RISK 03/14/2011 KHANG GALVEZ, SUSAN V58.69 MEDICATION HIGH RISK 03/14/2011 KHANG GALVEZ, SUSAN V58.69 MEDICATION HIGH RISK 03/14/2011 KHANG GALVEZ, SUSAN V58.69 MEDICATION HIGH RISK 03/14/2011 IVAN MONTIEL COLBY Nirmal V58.69 MEDICATION HIGH RISK 03/14/2011 KHANG GALVEZ, SUSAN V58.69 MEDICATION HIGH RISK 03/14/2011 KHANG GALVEZ, SUSAN V58.69 MEDICATION HIGH RISK 03/14/2011 KHANG GALVEZ, SUSAN V58.69 MEDICATION HIGH RISK 03/14/2011 KHANG GALVEZ, SUSAN V58.69 MEDICATION HIGH RISK 03/14/2011 KHANG GALVEZ, SUSAN V58.69 MEDICATION HIGH RISK 03/14/2011 KHANG GALVEZ, SUSAN V58.69 MEDICATION HIGH RISK 03/14/2011 KHANG GALVEZ, SUSAN V58.69 MEDICATION HIGH RISK 03/14/2011 KHANG GALVEZ, SUSAN V58.69 MEDICATION HIGH RISK 03/14/2011 KHANG GALVEZ, SUSAN V58.69 MEDICATION HIGH RISK 03/14/2011 V58.69 MEDICATION HIGH RISK 07/01/2011 KHANG GALVEZ, SUSAN 790.6 OTHER ABNORMAL BLOOD CHEMISTRY 07/01/2011 SUSAN QUIÑONEZ MD V04.81 Flu Dx (medicare Only) 07/01/2011 SUSAN QUIÑONEZ MD 790.6 OTHER ABNORMAL BLOOD CHEMISTRY 07/01/2011 SUSAN QUIÑONEZ MD V04.81 Flu Dx (medicare Only) 07/01/2011 SUSAN QUIÑONEZ MD 790.6 OTHER ABNORMAL BLOOD CHEMISTRY 07/01/2011 SUSAN QUIÑONEZ MD V04.81 Flu Dx (medicare Only) 07/01/2011 SUSAN QUIÑONEZ MD 790.6 OTHER ABNORMAL BLOOD CHEMISTRY 07/01/2011 SUSAN QUIÑONEZ MD V04.81 Flu Dx (medicare Only) 07/01/2011 LOVE COLBY MONTIEL 790.6 OTHER ABNORMAL BLOOD CHEMISTRY 07/01/2011 COLBY LOVE DO V04.81 Flu Dx (medicare Only) 07/01/2011 SUSAN QUIÑONEZ MD 790.6 OTHER ABNORMAL BLOOD CHEMISTRY 07/01/2011 SUSAN QUIÑONEZ MD V04.81 Flu Dx (medicare Only) 07/01/2011 SUSAN QUIÑONEZ MD 790.6 OTHER ABNORMAL BLOOD CHEMISTRY 07/01/2011 SUSAN QUIÑONEZ MD V04.81 Flu Dx (medicare Only) 07/01/2011 SUSAN QUIÑONEZ MD 790.6 OTHER ABNORMAL BLOOD CHEMISTRY 07/01/2011 SUSAN QUIÑONEZ MD V04.81 Flu Dx (medicare Only) 07/01/2011 SUSAN QUIÑONEZ MD 790.6 OTHER ABNORMAL BLOOD CHEMISTRY 07/01/2011 SUSAN QUIÑONEZ MD V04.81 Flu Dx (medicare Only) 07/01/2011 SUSAN QUIÑONEZ MD 790.6 OTHER ABNORMAL BLOOD CHEMISTRY 07/01/2011 SUSAN QUIÑONEZ MD V04.81 Flu Dx (medicare Only) 07/01/2011 SUSAN QUIÑONEZ MD 790.6 OTHER ABNORMAL BLOOD CHEMISTRY 07/01/2011 SUSAN QUIÑONEZ MD V04.81 Flu Dx (medicare Only) 07/01/2011 SUSAN QUIÑONEZ MD 790.6 OTHER ABNORMAL BLOOD CHEMISTRY 07/01/2011 SUSAN QUIÑONEZ MD V04.81 Flu Dx (medicare Only) 07/01/2011 SUSAN QUIÑONEZ MD 790.6 OTHER ABNORMAL BLOOD CHEMISTRY 07/01/2011 SUSAN QUIÑONEZ MD V04.81 Flu Dx (medicare Only) 07/01/2011 SUSAN QUIÑONEZ MD 790.6 OTHER ABNORMAL BLOOD CHEMISTRY 07/01/2011 SUSAN QUIÑONEZ MD V04.81 Flu Dx (medicare Only) 07/01/2011 790.6 OTHER ABNORMAL BLOOD CHEMISTRY 07/01/2011 V04.81 FLU DX ( MEDICARE ONLY) 07/01/2012 SUSAN QUIÑONEZ MD 790.29 OTHER ABNORMAL GLUCOSE 07/01/2012 SUSAN QUIÑONEZ MD 790.29 OTHER ABNORMAL GLUCOSE 07/01/2012 SUSAN QUIÑONEZ MD 790.29 OTHER ABNORMAL GLUCOSE 07/01/2012 SUSAN QUIÑONEZ MD 790.29 OTHER ABNORMAL GLUCOSE 07/01/2012 COLBY LOVE DO 790.29 OTHER ABNORMAL GLUCOSE 07/01/2012 SUSAN QUIÑONEZ MD 790.29 OTHER ABNORMAL GLUCOSE 07/01/2012 SUSAN QUIÑONEZ MD 790.29 OTHER ABNORMAL GLUCOSE 07/01/2012 SUSAN QUIÑONEZ MD 790.29 OTHER ABNORMAL GLUCOSE 07/01/2012 SUSAN QUIÑONEZ MD 790.29 OTHER ABNORMAL GLUCOSE 07/01/2012 SUSAN QUIÑONEZ MD 790.29 OTHER ABNORMAL GLUCOSE 07/01/2012 SUSAN QUIÑONEZ MD 790.29 OTHER ABNORMAL GLUCOSE 07/01/2012 SUSAN QUIÑONEZ MD 790.29 OTHER ABNORMAL GLUCOSE 07/01/2012 SUSAN QUIÑONEZ MD 790.29 OTHER ABNORMAL GLUCOSE 07/01/2012 SUSAN QUIÑONEZ MD 790.29 OTHER ABNORMAL GLUCOSE 01/25/2013 SUSAN QUIÑONEZ MD 250.00 DIABETES MELLITUS WITHOUT MENTION OF COMPLICATION TYPE II OR UNSPECIFIED TYPE NOT STATED UNCONTROLLED 01/25/2013 SUSAN QUIÑONEZ MD 250.00 DIABETES MELLITUS WITHOUT MENTION OF COMPLICATION TYPE II OR UNSPECIFIED TYPE NOT STATED UNCONTROLLED 01/25/2013 SUSAN QUIÑONEZ MD 250.00 DIABETES MELLITUS WITHOUT MENTION OF COMPLICATION TYPE II OR UNSPECIFIED TYPE NOT STATED UNCONTROLLED 01/25/2013 COLBY LOVE DO 250.00 DIABETES MELLITUS WITHOUT MENTION OF COMPLICATION TYPE II OR UNSPECIFIED TYPE NOT STATED UNCONTROLLED 01/25/2013 SUSAN QUIÑONEZ MD 250.00 DIABETES MELLITUS WITHOUT MENTION OF COMPLICATION TYPE II OR UNSPECIFIED TYPE NOT STATED UNCONTROLLED 01/25/2013 SUSAN QUIÑONEZ MD 250.00 DIABETES MELLITUS WITHOUT MENTION OF COMPLICATION TYPE II OR UNSPECIFIED TYPE NOT STATED UNCONTROLLED 01/25/2013 SUSAN QUIÑONEZ MD 250.00 DIABETES MELLITUS WITHOUT MENTION OF COMPLICATION TYPE II OR UNSPECIFIED TYPE NOT STATED UNCONTROLLED 01/25/2013 SUSAN QUIÑONEZ MD 250.00 DIABETES MELLITUS WITHOUT MENTION OF COMPLICATION TYPE II OR UNSPECIFIED TYPE NOT STATED UNCONTROLLED 01/25/2013 SUSAN QUIÑONEZ MD 250.00 DIABETES MELLITUS WITHOUT MENTION OF COMPLICATION TYPE II OR UNSPECIFIED TYPE NOT STATED UNCONTROLLED 01/25/2013 SUSAN QUIÑONEZ MD 250.00 DIABETES MELLITUS WITHOUT MENTION OF COMPLICATION TYPE II OR UNSPECIFIED TYPE NOT STATED UNCONTROLLED 01/25/2013 SUSAN QUIÑONEZ MD 250.00 DIABETES MELLITUS WITHOUT MENTION OF COMPLICATION TYPE II OR UNSPECIFIED TYPE NOT STATED UNCONTROLLED 01/25/2013 SUSAN QUIÑONEZ MD 250.00 DIABETES MELLITUS WITHOUT MENTION OF COMPLICATION TYPE II OR UNSPECIFIED TYPE NOT STATED UNCONTROLLED 01/25/2013 SUSAN QUIÑONEZ MD 250.00 DIABETES MELLITUS WITHOUT MENTION OF COMPLICATION TYPE II OR UNSPECIFIED TYPE NOT STATED UNCONTROLLED 09/13/2013 COLBY LOVE DO V06.1 TDAP DX 09/13/2013 KHANG GALVEZ, SUSAN V06.1 TDAP DX 09/13/2013 KHANG GALVEZ, SUSAN V06.1 TDAP DX 09/13/2013 KHANG GALVEZ, SUSAN V06.1 TDAP DX 09/13/2013 KHANG GALVEZ, SUSAN V06.1 TDAP DX 09/13/2013 KHANG GALVEZ, SUSAN V06.1 TDAP DX 09/13/2013 KHANG GALVEZ, SUSAN V06.1 TDAP DX 09/13/2013 KHANG GALVEZ, SUSAN V06.1 TDAP DX 09/13/2013 SUSAN QUIÑONEZ MD V06.1 TDAP DX 09/13/2013 SUSAN QUIÑONEZ MD V06.1 TDAP DX 09/27/2013 BATOOL KHAN, KENNY Q Ot 250.00 DIAB MODESTO WO COMPL, TYPE II OR UNSPEC TY 09/27/2013 BATOOL KHAN, KENNY Q Ot 730.27 OSTEOMYELITIS NOS-ANKLE 12/08/2013 SUSAN QUIÑONEZ MD 782.1 RASH AND OTHER NONSPECIFIC SKIN ERUPTION 12/08/2013 SUSAN QUIÑONEZ MD 782.1 RASH AND OTHER NONSPECIFIC SKIN ERUPTION 12/08/2013 SUSAN QUIÑONEZ MD2.1 RASH AND OTHER NONSPECIFIC SKIN ERUPTION 12/08/2013 SUSAN QUIÑONEZ MD 782.1 RASH AND OTHER NONSPECIFIC SKIN ERUPTION 12/08/2013 SUSAN QUIÑONEZ MD 782.1 RASH AND OTHER NONSPECIFIC SKIN ERUPTION 12/08/2013 SUSAN QUIÑONEZ MD 782.1 RASH AND OTHER NONSPECIFIC SKIN ERUPTION 12/08/2013 SUSAN QUIÑONEZ MD 782.1 RASH AND OTHER NONSPECIFIC SKIN ERUPTION 12/08/2013 SUSAN QUIÑONEZ MD 782.1 RASH AND OTHER NONSPECIFIC SKIN ERUPTION 12/15/2013 SUSAN QUIÑONEZ MD 110.1 DERMATOPHYTOSIS OF NAIL 12/15/2013 SUSAN QUIÑONEZ MD 110.1 DERMATOPHYTOSIS OF NAIL 12/15/2013 SUSAN QUIÑONEZ MD 110.1 DERMATOPHYTOSIS OF NAIL 12/15/2013 SUSAN QUIÑONEZ MD 110.1 DERMATOPHYTOSIS OF NAIL 12/15/2013 SUSAN QUIÑONEZ MD 110.1 DERMATOPHYTOSIS OF NAIL 12/15/2013 SUSAN QUIÑONEZ MD 110.1 DERMATOPHYTOSIS OF NAIL 12/15/2013 SUSAN QUIÑONEZ MD 110.1 DERMATOPHYTOSIS OF NAIL 03/14/2014 SUSAN QUIÑONEZ MD 730.27 UNSPECIFIED OSTEOMYELITIS INVOLVING ANKLE AND FOOT 03/14/2014 SUSAN QUIÑONEZ MD 730.27 UNSPECIFIED OSTEOMYELITIS INVOLVING ANKLE AND FOOT 03/14/2014 SUSAN QUIÑONEZ MD 730.27 UNSPECIFIED OSTEOMYELITIS INVOLVING ANKLE AND FOOT 03/17/2014 BATOOL DPM, KENNY Q Ot 730.27 OSTEOMYELITIS NOS-ANKLE 07/24/2014 SUSAN QUIÑONEZ MD 311 DEPRESSIVE DISORDER NOT ELSEWHERE CLASSIFIED 07/24/2014 SUSAN QUIÑONEZ MD 311 DEPRESSIVE DISORDER NOT ELSEWHERE CLASSIFIED 12/06/2014 Ot 491.9 12/06/2014 BATOOL DPM, KENNY Q Ot 250.60 12/06/2014 BATOOL DPM, KENNY Q Ot 357.2 12/06/2014 BATOOL DPM, KENNY Q Ot 715.37 12/06/2014 BATOOL DPM, KENNY Q Ot 735.0 12/06/2014 BATOOL DPM, KENNY Q Ot 681.10 12/06/2014 BATOOL DPM, KENNY Q Ot 682.7 12/06/2014 BATOOL DPM, KENNY Q Ot 730.27 12/06/2014 BATOOL DPM, KENNY Q Ot V72.84 12/06/2014 BATOOL DPM, KENNY Q Ot 730.27 12/06/2014 BATOOL DPM, KENNY Q Ot 730.27 12/06/2014 BATOOL DPM, KENNY Q Ot V72.83 12/06/2014 BATOOL DPM, KENNY Q Ot V74.8 12/15/2014 BATOOL DPM, KENNY Q Ot 707.15 ULCER OF OTHER PART OF FOOT 12/15/2014 BATOOL DPM, KENNY Q Ot 730.27 OSTEOMYELITIS NOS-ANKLE 01/01/2015 BATOOL DPM, KENNY Q Ot 707.15 01/12/2015 BATOOL DPM, KENNY Q Ot 730.27 01/12/2015 BATOOL DPM, KENNY Q Ot V72.63 01/12/2015 BATOOL DPM, KENNY Q Ot V74.8 09/01/2015 BATOOL DPM, KENNY Q Ot E11.9 TYPE 2 DIABETES MELLITUS WITHOUT COMPLIC 09/01/2015 BATOOL DPM, KENNY Q Ot M86.9 OSTEOMYELITIS, UNSPECIFIED 09/13/2015 Ot M86.9 09/13/2015 Ot Z01.812 09/13/2015 Ot Z11.2 03/18/2016 Ot M86.9 OSTEOMYELITIS , UNSPECIFIED 05/05/2016 Ot 491.9 CHRONIC BRONCHITIS NOS 05/05/2016 BATOOL DPM, KENNY Q Ot 250.60 DIAB W NEURO MANIFEST, TYPE II OR UNSPEC 05/05/2016 BATOOL DPM, KENNY Q Ot 357.2 NEUROPATHY IN DIABETES 05/05/2016 BATOOL DPM, KENNY Q Ot 715.37 LOC OSTEOARTH NOS-ANKLE 05/05/2016 BATOOL DPM, KENNY Q Ot 735.0 HALLUX VALGUS 05/05/2016 BATOOL DPM, KENNY Q Ot 681.10 CELLULITIS, TOE NOS 05/05/2016 BATOOL DPM, KENNY Q Ot 682.7 CELLULITIS OF FOOT 05/05/2016 BATOOL DPM, KENNY Q Ot 730.27 OSTEOMYELITIS NOS-ANKLE 05/05/2016 BATOOL DPM, KENNY Q Ot V72.84 EXAM PRE-OPERATIVE NOS 05/05/2016 BATOOL DPM, KENNY Q Ot 730.27 OSTEOMYELITIS NOS-ANKLE 05/05/2016 BATOOL DPM, KENNY Q Ot 730.27 OSTEOMYELITIS NOS-ANKLE 05/05/2016 BATOOL DPM, KENNY Q Ot V72.83 EXAM PRE-OPERATIVE NEC 05/05/2016 BATOOL DPM, KENNY Q Ot V74.8 SCREEN-BACTERIAL DIS NEC 05/05/2016 BATOOL DPM, KENNY Q Ot 707.15 ULCER OF OTHER PART OF FOOT 05/05/2016 BATOOL DPM, KENNY Q Ot 730.27 OSTEOMYELITIS NOS-ANKLE 05/05/2016 BATOOL DPM, KENNY Q Ot V72.63 PRE-PROCEDURAL LABORATORY EXAMINATION 05/05/2016 BATOOL DPM, KENNY Q Ot V74.8 SCREEN-BACTERIAL DIS NEC 05/05/2016 Ot M86.9 OSTEOMYELITIS , UNSPECIFIED 05/05/2016 Ot M86.9 OSTEOMYELITIS , UNSPECIFIED 05/05/2016 Ot Z01.812 ENCOUNTER FOR PREPROCEDURAL LABORATORY E 05/05/2016 Ot Z11.2 ENCOUNTER FOR SCREENING FOR OTHER BACTER 05/05/2016 JOSE ZAVALA DO Ot L72.9 FOLLICULAR CYST OF THE SKIN AND SUBCUTAN 05/05/2016 JOSE ZAVALA DO Ot Z01.818 ENCOUNTER FOR OTHER PREPROCEDURAL EXAMIN 05/05/2016 JOSE ZAVALA DO Ot Z11.2 ENCOUNTER FOR SCREENING FOR OTHER BACTER 05/07/2016 JOSE ZAVALA DO Ot L72.9 FOLLICULAR CYST OF THE SKIN AND SUBCUTAN 05/07/2016 JOSE ZAVALA DO Ot Z01.818 ENCOUNTER FOR OTHER PREPROCEDURAL EXAMIN 05/07/2016 JOSE ZAVALA DO Ot Z11.2 ENCOUNTER FOR SCREENING FOR OTHER BACTER 05/08/2016 JOSE ZAVALA DO Ot E11.9 TYPE 2 DIABETES MELLITUS WITHOUT COMPLIC 05/08/2016 JOES ZAVALA DO Ot L72.0 EPIDERMAL CYST 05/08/2016 JOSE ZAVALA DO Ot L72.9 FOLLICULAR CYST OF THE SKIN AND SUBCUTAN 05/08/2016 JOSE ZAVALA DO Ot Z79.84 [facility] (CURRENT) USE OF ORAL HYPOGLYC 06/09/2016 BATOOL DPM, KENNY Q Ot 250.60 DIAB W NEURO MANIFEST, TYPE II OR UNSPEC 06/09/2016 BATOOL DPM, KENNY Q Ot 357.2 NEUROPATHY IN DIABETES 06/09/2016 BATOOL DPM, KENNY Q Ot 715.37 LOC OSTEOARTH NOS-ANKLE 06/09/2016 BATOOL DPM, KENNY Q Ot 735.0 HALLUX VALGUS 06/09/2016 BATOOL DPM, KENNY Q Ot 681.10 CELLULITIS, TOE NOS 06/09/2016 BATOOL DPM, KENNY Q Ot 682.7 CELLULITIS OF FOOT 06/09/2016 BATOOL DPM, KENNY Q Ot 730.27 OSTEOMYELITIS NOS-ANKLE 06/09/2016 BATOOL DPM, KENNY Q Ot V72.84 EXAM PRE-OPERATIVE NOS 06/09/2016 BATOOL DPM, KENNY Q Ot 730.27 OSTEOMYELITIS NOS-ANKLE 06/09/2016 BATOOL DPM, KENNY Q Ot 730.27 OSTEOMYELITIS NOS-ANKLE 06/09/2016 BATOOL DPM, KENNY Q Ot V72.83 EXAM PRE-OPERATIVE NEC 06/09/2016 BATOOL DPM, KENNY Q Ot V74.8 SCREEN-BACTERIAL DIS NEC 06/09/2016 BATOOL DPM, KENNY Q Ot 707.15 ULCER OF OTHER PART OF FOOT 06/09/2016 BATOOL DPM, KENNY Q Ot 730.27 OSTEOMYELITIS NOS-ANKLE 06/09/2016 BATOOL DPM, KENNY Q Ot V72.63 PRE-PROCEDURAL LABORATORY EXAMINATION 06/09/2016 BATOOL DPM, KENNY Q Ot V74.8 SCREEN-BACTERIAL DIS NEC 06/09/2016 Ot M86.9 OSTEOMYELITIS , UNSPECIFIED 06/09/2016 Ot M86.9 OSTEOMYELITIS , UNSPECIFIED 06/09/2016 Ot Z01.812 ENCOUNTER FOR PREPROCEDURAL LABORATORY E 06/09/2016 Ot Z11.2 ENCOUNTER FOR SCREENING FOR OTHER BACTER 12/06/2016 BATOOL DPM, KENNY Q Ot 250.60 DIAB W NEURO MANIFEST, TYPE II OR UNSPEC 12/06/2016 BATOOL DPM, KENNY Q Ot 357.2 NEUROPATHY IN DIABETES 12/06/2016 BATOOL DPM, KENNY Q Ot 715.37 LOC OSTEOARTH NOS-ANKLE 12/06/2016 BATOOL DPM, KENNY Q Ot 735.0 HALLUX VALGUS 12/06/2016 BATOOL DPM, KENNY Q Ot 681.10 CELLULITIS, TOE NOS 12/06/2016 BATOOL DPM, KENNY Q Ot 682.7 CELLULITIS OF FOOT 12/06/2016 BATOOL DPM, KENNY Q Ot 730.27 OSTEOMYELITIS NOS-ANKLE 12/06/2016 BATOOL DPM, KENNY Q Ot V72.84 EXAM PRE-OPERATIVE NOS 12/06/2016 BATOOL DPM, KENNY Q Ot 730.27 OSTEOMYELITIS NOS-ANKLE 12/06/2016 BATOOL DPM, KENNY Q Ot 730.27 OSTEOMYELITIS NOS-ANKLE 12/06/2016 BATOOL DPM, KENNY Q Ot V72.83 EXAM PRE-OPERATIVE NEC 12/06/2016 BATOOL DPM, KENNY Q Ot V74.8 SCREEN-BACTERIAL DIS NEC 12/06/2016 BATOOL DPM, KENNY Q Ot 707.15 ULCER OF OTHER PART OF FOOT 12/06/2016 BATOOL DPM, KENNY Q Ot 730.27 OSTEOMYELITIS NOS-ANKLE 12/06/2016 BATOOL DPM, KENNY Q Ot V72.63 PRE-PROCEDURAL LABORATORY EXAMINATION 12/06/2016 BATOOL DPM, KENNY Q Ot V74.8 SCREEN-BACTERIAL DIS NEC 12/06/2016 Ot M86.9 OSTEOMYELITIS , UNSPECIFIED 12/06/2016 Ot M86.9 OSTEOMYELITIS , UNSPECIFIED 12/06/2016 Ot Z01.812 ENCOUNTER FOR PREPROCEDURAL LABORATORY E 12/06/2016 Ot Z11.2 ENCOUNTER FOR SCREENING FOR OTHER BACTER 12/11/2016 NIRANJAN MOTA MD Ot E11.42 TYPE 2 DIABETES MELLITUS WITH DIABETIC P 12/11/2016 NIRANJAN MOTA MD Ot E11.621 TYPE 2 DIABETES MELLITUS WITH FOOT ULCER 12/11/2016 NIRANJAN MOTA MD Ot E11.69 TYPE 2 DIABETES MELLITUS WITH OTHER SPEC 12/11/2016 NIRANJAN MOTA MD Ot F32.9 MAJOR DEPRESSIVE DISORDER, SINGLE EPISOD 12/11/2016 NIRANJAN MOTA MD Ot F41.9 ANXIETY DISORDER, UNSPECIFIED 12/11/2016 NIRANJAN MOTA MD Ot H54.7 UNSPECIFIED VISUAL LOSS 12/11/2016 NIRANJAN MOTA MD Ot L02.611 CUTANEOUS ABSCESS OF RIGHT FOOT 12/11/2016 NIRANJAN MOTA MD, Ot L57.0 ACTINIC KERATOSIS 12/11/2016 NIRANJAN MOTA MD, Ot M19.91 PRIMARY OSTEOARTHRITIS, UNSPECIFIED SITE 12/11/2016 NIRANJAN MOTA MD, Ot M20.41 OTHER HAMMER TOE(S) (ACQUIRED), RIGHT FO 12/11/2016 NIRANJAN MOTA MD, Ot M20.42 OTHER HAMMER TOE(S) (ACQUIRED), LEFT REINALDO 12/11/2016 NIRANJAN MOTA MD, Ot M54.9 DORSALGIA, UNSPECIFIED 12/11/2016 NIRANJAN MOTA MD, Ot M86.9 OSTEOMYELITIS, UNSPECIFIED 12/11/2016 NIRANJAN MOTA MD, Ot S90.422A BLISTER (NONTHERMAL), LEFT GREAT TOE, IN 12/11/2016 NIRANJAN MOTA MD, Ot Z79.84 MOVERS (CURRENT) USE OF ORAL HYPOGLYC 12/11/2016 NIRANJAN MOTA MD, Ot Z79.899 OTHER [facility] (CURRENT) DRUG THERAPY 12/11/2016 NIRANJAN MOTA MD, Ot Z87.891 PERSONAL HISTORY OF NICOTINE DEPENDENCE 12/11/2016 NIRANJAN MOTA MD, Ot Z89.421 ACQUIRED ABSENCE OF OTHER RIGHT TOE(S) 12/11/2016 NIRANJAN MOTA MD, Ot Z89.422 ACQUIRED ABSENCE OF OTHER LEFT TOE(S) 12/11/2016 NIRANJAN MOTA MD, Ot Z94.4 LIVER TRANSPLANT STATUS 12/11/2016 NIRANJAN MOTA MD, Ot E11.42 TYPE 2 DIABETES MELLITUS WITH DIABETIC P 12/11/2016 NIRANJAN MOTA MD, Ot E11.621 TYPE 2 DIABETES MELLITUS WITH FOOT ULCER 12/11/2016 NIRANJAN MOTA MD, Ot E11.69 TYPE 2 DIABETES MELLITUS WITH OTHER SPEC 12/11/2016 NIRANJAN MOTA MD, Ot F32.9 MAJOR DEPRESSIVE DISORDER, SINGLE EPISOD 12/11/2016 NIRANJAN MOTA MD, Ot F41.9 ANXIETY DISORDER, UNSPECIFIED 12/11/2016 NIRANJAN MOTA MD, Ot H54.7 UNSPECIFIED VISUAL LOSS 12/11/2016 NIRANJAN MOTA MD, Ot L02.611 CUTANEOUS ABSCESS OF RIGHT FOOT 12/11/2016 NIRANJAN MOTA MD, Ot L57.0 ACTINIC KERATOSIS 12/11/2016 NIRANJAN MOTA MD, Ot M19.91 PRIMARY OSTEOARTHRITIS, UNSPECIFIED SITE 12/11/2016 NIRANJAN MOTA MD, Ot M20.41 OTHER HAMMER TOE(S) (ACQUIRED), RIGHT FO 12/11/2016 NIRANJAN MOTA MD, Ot M20.42 OTHER HAMMER TOE(S) (ACQUIRED), LEFT REINALDO 12/11/2016 NIRANJAN MOTA MD, Ot M54.9 DORSALGIA, UNSPECIFIED 12/11/2016 NIRANJAN MOTA MD, Ot M86.9 OSTEOMYELITIS, UNSPECIFIED 12/11/2016 NIRANJAN MOTA MD, Ot S90.422A BLISTER (NONTHERMAL), LEFT GREAT TOE, IN 12/11/2016 NIRANJAN MOTA MD, Ot Z79.84 MOVERS (CURRENT) USE OF ORAL HYPOGLYC 12/11/2016 NIRANJAN MOTA MD, Ot Z79.899 OTHER MOVERS (CURRENT) DRUG THERAPY 12/11/2016 NIRANJAN MOTA MD, Ot Z87.891 PERSONAL HISTORY OF NICOTINE DEPENDENCE 12/11/2016 NIRANJAN MOTA MD, Ot Z89.421 ACQUIRED ABSENCE OF OTHER RIGHT TOE(S) 12/11/2016 NIRANJAN MOTA MD, Ot Z89.422 ACQUIRED ABSENCE OF OTHER LEFT TOE(S) 12/11/2016 NIRANJAN MOTA MD, Ot Z94.4 LIVER TRANSPLANT STATUS 12/11/2016 NIRANJAN MOTA MD, Ot E11.42 TYPE 2 DIABETES MELLITUS WITH DIABETIC P 12/11/2016 NIRANJAN MOTA MD, Ot E11.621 TYPE 2 DIABETES MELLITUS WITH FOOT ULCER 12/11/2016 NIRANJAN MOTA MD, Ot E11.69 TYPE 2 DIABETES MELLITUS WITH OTHER SPEC 12/11/2016 NIRANJAN MOTA MD, Ot F32.9 MAJOR DEPRESSIVE DISORDER, SINGLE EPISOD 12/11/2016 NIRANJAN MOTA MD, Ot F41.9 ANXIETY DISORDER, UNSPECIFIED 12/11/2016 NIRANJAN MOTA MD, Ot H54.7 UNSPECIFIED VISUAL LOSS 12/11/2016 NIRANJAN MOTA MD, Ot L02.611 CUTANEOUS ABSCESS OF RIGHT FOOT 12/11/2016 NIRANJAN MOTA MD, Ot L57.0 ACTINIC KERATOSIS 12/11/2016 NIRANJAN MOTA MD, Ot M19.91 PRIMARY OSTEOARTHRITIS, UNSPECIFIED SITE 12/11/2016 NIRANJAN MOTA MD, Ot M20.41 OTHER HAMMER TOE(S) (ACQUIRED), RIGHT FO 12/11/2016 NIRANJAN MOTA MD, Ot M20.42 OTHER HAMMER TOE(S) (ACQUIRED), LEFT REINALDO 12/11/2016 NIRANJAN MOTA MD, Ot M54.9 DORSALGIA, UNSPECIFIED 12/11/2016 NIRANJAN MOTA MD, Ot M86.9 OSTEOMYELITIS, UNSPECIFIED 12/11/2016 NIRANJAN MOTA MD, Ot S90.422A BLISTER (NONTHERMAL), LEFT GREAT TOE, IN 12/11/2016 NIRANJAN MOTA MD, Ot Z79.84 MCFP (CURRENT) USE OF ORAL HYPOGLYC 12/11/2016 NIRANJAN MOTA MD, Ot Z79.899 OTHER MOVERS (CURRENT) DRUG THERAPY 12/11/2016 NIRANJAN MOTA MD, Ot Z87.891 PERSONAL HISTORY OF NICOTINE DEPENDENCE 12/11/2016 NIRANJAN MOTA MD, Ot Z89.421 ACQUIRED ABSENCE OF OTHER RIGHT TOE(S) 12/11/2016 NIRANJAN MOTA MD, Ot Z89.422 ACQUIRED ABSENCE OF OTHER LEFT TOE(S) 12/11/2016 NIRANJAN MOTA MD, Ot Z94.4 LIVER TRANSPLANT STATUS 12/12/2016 NIRANJAN MOTA MD, Ot D64.9 ANEMIA, UNSPECIFIED 12/12/2016 NIRANJAN MOTA MD, Ot E11.42 TYPE 2 DIABETES MELLITUS WITH DIABETIC P 12/12/2016 NIRANJAN MOTA MD, Ot E11.621 TYPE 2 DIABETES MELLITUS WITH FOOT ULCER 12/12/2016 NIRANJAN MOTA MD, Ot E11.69 TYPE 2 DIABETES MELLITUS WITH OTHER SPEC 12/12/2016 NIRANJAN MOTA MD, Ot E87.6 HYPOKALEMIA 12/12/2016 NIRANJAN MOTA MD, Ot F32.9 MAJOR DEPRESSIVE DISORDER, SINGLE EPISOD 12/12/2016 NIRANJAN MOTA MD Ot F41.9 ANXIETY DISORDER, UNSPECIFIED 12/12/2016 NIRANJAN MOTA MD, Ot H54.7 UNSPECIFIED VISUAL LOSS 12/12/2016 NIRANJAN MOTA MD, Ot K59.00 CONSTIPATION, UNSPECIFIED 12/12/2016 NIRANJAN MOTA MD Ot L02.611 CUTANEOUS ABSCESS OF RIGHT FOOT 12/12/2016 NIRANJAN MOTA MD, Ot L57.0 ACTINIC KERATOSIS 12/12/2016 NIRANJAN MOTA MD, Ot M19.91 PRIMARY OSTEOARTHRITIS, UNSPECIFIED SITE 12/12/2016 NIRANJAN MOTA MD, Ot M20.41 OTHER HAMMER TOE(S) (ACQUIRED), RIGHT FO 12/12/2016 NIRANJAN MOTA MD, Ot M20.42 OTHER HAMMER TOE(S) (ACQUIRED), LEFT REINALDO 12/12/2016 NIRANJAN MOTA MD, Ot M54.9 DORSALGIA, UNSPECIFIED 12/12/2016 NIRANJAN MOTA MD, Ot M86.9 OSTEOMYELITIS, UNSPECIFIED 12/12/2016 NIRANJAN MOTA MD, Ot S90.422A BLISTER (NONTHERMAL), LEFT GREAT TOE, IN 12/12/2016 NIRANJAN MOTA MD Ot Z79.84 MOVERS (CURRENT) USE OF ORAL HYPOGLYC 12/12/2016 NIRANJAN MOTA MD, Ot Z79.899 OTHER MOVERS (CURRENT) DRUG THERAPY 12/12/2016 NIRANJAN MOTA MD, Ot Z87.891 PERSONAL HISTORY OF NICOTINE DEPENDENCE 12/12/2016 NIRANJAN MOTA MD, Ot Z89.421 ACQUIRED ABSENCE OF OTHER RIGHT TOE(S) 12/12/2016 NIRANJAN MOTA MD, Ot Z89.422 ACQUIRED ABSENCE OF OTHER LEFT TOE(S) 12/12/2016 NIRANJAN MOTA MD, Ot Z94.4 LIVER TRANSPLANT STATUS Procedures Code Description [place] [address] ROUTINE VENIPUNCTURE 07/01/2012 50887 A1C (IN-HOUSE) 07/01/2012 44345 CMP 07/01/2012 [id number] GFR CALC (RESULT ONLY) 07/01/2012 96465 A1C (RML) 07/02/2012 97048 PROGRAF (TACROLIMUS) 07/02/2012 31554 ROUTINE VENIPUNCTURE 07/08/2013 78255 MICRO ALBUMIN-IN HOUSE 07/08/2013 84772 A1C (IN-HOUSE) 07/08/20134233817 GFR CALC (RESULT ONLY) 07/08/2013 10732 CMP 07/08/2013 Podiatry Kenny Edwards 09/13/2013 14019 ROUTINE VENIPUNCTURE 12/15/2013 27273 A1C (IN-HOUSE) 12/15/20139035685 GFR CALC (RESULT ONLY) 12/15/2013 48129 CMP 12/15/2013 11983 A1C (IN-HOUSE) 07/24/2014 [id number] RESECTION OF R METATARSOPHAL JT, OPEN AP 12/10/2016 Results Test Result Range Methicillin resistant Staphylococcus aureus (MRSA) screening culture - 11:30 Methicillin resistant Staphylococcus aureus (MRSA) screening culture NEG NRG Capillary blood glucose measurement by glucometer (mass/volume) - 05/08/16 06: 27 Capillary blood glucose measurement by glucometer (mass/volume) 155 mg/dL 70-110 Gram stain microscopy - 12/06/16 21:10 GRAM STAIN RESULT NUMEROUS GRAM POSITIVE COCCI NRG Bacteria identification in wound by culture - 12/06/16 21:10 Bacteria identification in wound by culture [id number] NRG FREE TEXT EXTERNAL SENSITIVITY REPORTED 12/08/16 7:25 NRG QUANTITY OF GROWTH Moderate Growth NRG Bacterial susceptibility panel - 12/06/16 21:10 Oxacillin susceptibility test by minimum inhibitory concentration < = NRG Gentamicin susceptibility test by minimum inhibitory concentration < = NRG Clindamycin susceptibility test by minimum inhibitory concentration <= NRG Erythromycin susceptibility test by minimum inhibitory concentration <= NRG Trimethoprim/sulfamethoxazole susceptibility test by minimum inhibitoryconcentration <= NRG Vancomycin susceptibility test by minimum inhibitory concentration < = NRG Levofloxacin susceptibility test by minimum inhibitory concentration <= NRG Rifampin susceptibility test by minimum inhibitory concentration <= NRG Tetracycline susceptibility test by minimum inhibitory concentration <= NRG Bacterial susceptibility panel - 12/06/16 21:10 Gentamicin susceptibility test by minimum inhibitory concentration < = NRG Trimethoprim/sulfamethoxazole susceptibility test by minimum inhibitoryconcentration <= NRG Ampicillin susceptibility test by minimum inhibitory concentration > = NRG Tobramycin susceptibility test by minimum inhibitory concentration < = NRG Cefazolin susceptibility test by minimum inhibitory concentration > = NRG Ceftriaxone susceptibility test by minimum inhibitory concentration <= NRG Ampicillin/sulbactam susceptibility test by minimum inhibitory concentration <= NRG Piperacillin/tazobactam susceptibility test by minimum inhibitory concentration <= NRG Ciprofloxacin susceptibility test by minimum inhibitory concentration <= NRG Meropenem susceptibility test by minimum inhibitory concentration < = NRG Aztreonam susceptibility test by minimum inhibitory concentration < = NRG Complete blood count (CBC) with automated white blood cell (WBC) differential - 12/06/16 21:18 Blood leukocytes automated count (number/volume) 6.3 10*3/uL 4.3-11.0 Blood erythrocytes automated count (number/volume) 4.32 10*6/uL 4.35-5.85 Venous blood hemoglobin measurement (mass/volume) 12.5 g/dL 13.3-17.7 Blood hematocrit (volume fraction) 38 % 40-54 Automated erythrocyte mean corpuscular volume 88 [foz_us] 80-99 Automated erythrocyte mean corpuscular hemoglobin (mass per erythrocyte) 29 pg 25-34 Automated erythrocyte mean corpuscular hemoglobin concentration measurement ( mass/volume) 33 g/dL 32-36 Automated erythrocyte distribution width ratio 14.1 % 10.0-14.5 Automated blood platelet count (count/volume) 510 10*3/uL 130-400 Automated blood platelet mean volume measurement 10.6 [foz_us] 7.4-10.4 Automated blood neutrophils/100 leukocytes 67 % 42-75 Automated blood lymphocytes/100 leukocytes 24 % 12-44 Blood monocytes/100 leukocytes 8 % 0-12 Automated blood eosinophils/100 leukocytes 1 % 0-10 Automated blood basophils/100 leukocytes 0 % 0-10 Blood neutrophils automated count (number/volume) 4.2 10*3 1.8-7.8 Blood lymphocytes automated count (number/volume) 1.5 10*3 1.0-4.0 Blood monocytes automated count (number/volume) 0.5 10*3 0.0-1.0 Automated eosinophil count 0.1 10*3/uL 0.0-0.3 Automated blood basophil count (count/volume) 0.0 10*3/uL 0.0-0.1 Erythrocyte sedimentation rate by westergren method - 12/06/16 21:18 Erythrocyte sedimentation rate by westergren method 81 mm 0-30 Blood lactic acid measurement (moles/volume) - 12/06/16 21:18 Blood lactic acid measurement (moles/volume) 2.05 mmol/L 0.50-2.00 Comprehensive metabolic panel - 12/06/16 21:18 Serum or plasma sodium measurement (moles/volume) 141 mmol/L 135-145 Serum or plasma potassium measurement (moles/volume) 3.4 mmol/L 3.6-5.0 Serum or plasma chloride measurement (moles/volume) 102 mmol/L 98-107 Carbon dioxide 28 mmol/L 21-32 Serum or plasma anion gap determination (moles/volume) 11 mmol/L 5-14 Serum or plasma urea nitrogen measurement (mass/volume) 5 mg/dL 7-18 Serum or plasma creatinine measurement (mass/volume) 0.77 mg/dL 0.60-1.30 Serum or plasma urea nitrogen/creatinine mass ratio 6 NRG Serum or plasma creatinine measurement with calculation of estimated glomerular filtration rate > NRG Serum or plasma glucose measurement (mass/volume) 277 mg/dL 70-105 Serum or plasma calcium measurement (mass/volume) 9.2 mg/dL 8.5-10.1 Serum or plasma total bilirubin measurement (mass/volume) 0.5 mg/dL 0.1-1.0 Serum or plasma alkaline phosphatase measurement (enzymatic activity/volume) 103 U/L 40-136 Serum or plasma aspartate aminotransferase measurement (enzymatic activity/ volume) 16 U/L 5-34 Serum or plasma alanine aminotransferase measurement (enzymatic activity/volume ) 17 U/L 0-55 Serum or plasma protein measurement (mass/volume) 7.6 g/dL 6.4-8.2 Serum or plasma albumin measurement (mass/volume) 3.3 g/dL 3.2-4.5 Bacterial blood culture - 12/06/16 21:18 FREE TEXT EXTERNAL FROM ONE BOTTLE NRG QUANTITY OF GROWTH Isolated [facility] Bacterial blood culture [id number] [facility] Bacterial blood culture - 12/06/16 21:43 Bacterial blood culture NG [facility] Serum or plasma lactate measurement (moles/volume) - 12/06/16 23:03 Serum or plasma lactate measurement (moles/volume) 1.38 mmol/L 0.50-2.00 Complete blood count (CBC) with automated white blood cell (WBC) differential - 12/07/16 04:47 Blood leukocytes automated count (number/volume) 5.7 10*3/uL 4.3-11.0 Blood erythrocytes automated count (number/volume) 3.81 10*6/uL 4.35-5.85 Venous blood hemoglobin measurement (mass/volume) 11.0 g/dL 13.3-17.7 Blood hematocrit (volume fraction) 34 % 40-54 Automated erythrocyte mean corpuscular volume 89 [foz_us] 80-99 Automated erythrocyte mean corpuscular hemoglobin (mass per erythrocyte) 29 pg 25-34 Automated erythrocyte mean corpuscular hemoglobin concentration measurement ( mass/volume) 32 g/dL 32-36 Automated erythrocyte distribution width ratio 14.2 % 10.0-14.5 Automated blood platelet count (count/volume) 443 10*3/uL 130-400 Automated blood platelet mean volume measurement 10.5 [foz_us] 7.4-10.4 Automated blood neutrophils/100 leukocytes 58 % 42-75 Automated blood lymphocytes/100 leukocytes 31 % 12-44 Blood monocytes/100 leukocytes 9 % 0-12 Automated blood eosinophils/100 leukocytes 2 % 0-10 Automated blood basophils/100 leukocytes 0 % 0-10 Blood neutrophils automated count (number/volume) 3.3 10*3 1.8-7.8 Blood lymphocytes automated count (number/volume) 1.8 10*3 1.0-4.0 Blood monocytes automated count (number/volume) 0.5 10*3 0.0-1.0 Automated eosinophil count 0.1 10*3/uL 0.0-0.3 Automated blood basophil count (count/volume) 0.0 10*3/uL 0.0-0.1 Comprehensive metabolic panel - 12/07/16 04:47 Serum or plasma sodium measurement (moles/volume) 142 mmol/L 135-145 Serum or plasma potassium measurement (moles/volume) 3.3 mmol/L 3.6-5.0 Serum or plasma chloride measurement (moles/volume) 108 mmol/L 98-107 Carbon dioxide 25 mmol/L 21-32 Serum or plasma anion gap determination (moles/volume) 9 mmol/L 5-14 Serum or plasma urea nitrogen measurement (mass/volume) 7 mg/dL 7-18 Serum or plasma creatinine measurement (mass/volume) 0.76 mg/dL 0.60-1.30 Serum or plasma urea nitrogen/creatinine mass ratio 9 NRG Serum or plasma creatinine measurement with calculation of estimated glomerular filtration rate > NRG Serum or plasma glucose measurement (mass/volume) 261 mg/dL 70-105 Serum or plasma calcium measurement (mass/volume) 8.3 mg/dL 8.5-10.1 Serum or plasma total bilirubin measurement (mass/volume) 0.3 mg/dL 0.1-1.0 Serum or plasma alkaline phosphatase measurement (enzymatic activity/volume) 91 U/L 40-136 Serum or plasma aspartate aminotransferase measurement (enzymatic activity/ volume) 13 U/L 5-34 Serum or plasma alanine aminotransferase measurement (enzymatic activity/volume ) 14 U/L 0-55 Serum or plasma protein measurement (mass/volume) 6.6 g/dL 6.4-8.2 Serum or plasma albumin measurement (mass/volume) 2.8 g/dL 3.2-4.5 Capillary blood glucose measurement by glucometer (mass/volume) - 12/07/16 11: 56 Capillary blood glucose measurement by glucometer (mass/volume) 140 mg/dL 70-110 Capillary blood glucose measurement by glucometer (mass/volume) - 12/07/16 16: 30 Capillary blood glucose measurement by glucometer (mass/volume) 132 mg/dL 70-110 Capillary blood glucose measurement by glucometer (mass/volume) - 12/07/16 21: 33 Capillary blood glucose measurement by glucometer (mass/volume) 107 mg/dL 70-110 Capillary blood glucose measurement by glucometer (mass/volume) - 12/08/16 05: 46 Capillary blood glucose measurement by glucometer (mass/volume) 98 mg/dL 70-110 Vancomycin trough - 12/08/16 06:15 Vancomycin trough 14.2 ug/mL 10.0-20.0 Capillary blood glucose measurement by glucometer (mass/volume) - 12/08/16 11: 13 Capillary blood glucose measurement by glucometer (mass/volume) 127 mg/dL 70-110 Capillary blood glucose measurement by glucometer (mass/volume) - 12/08/16 14: 59 Capillary blood glucose measurement by glucometer (mass/volume) 142 mg/dL 70-110 Capillary blood glucose measurement by glucometer (mass/volume) - 12/08/16 21: 43 Capillary blood glucose measurement by glucometer (mass/volume) 169 mg/dL 70-110 Complete blood count (CBC) with automated white blood cell (WBC) differential - 12/09/16 05:25 Blood leukocytes automated count (number/volume) 4.3 10*3/uL 4.3-11.0 Blood erythrocytes automated count (number/volume) 3.51 10*6/uL 4.35-5.85 Venous blood hemoglobin measurement (mass/volume) 10.1 g/dL 13.3-17.7 Blood hematocrit (volume fraction) 32 % 40-54 Automated erythrocyte mean corpuscular volume 91 [foz_us] 80-99 Automated erythrocyte mean corpuscular hemoglobin (mass per erythrocyte) 29 pg 25-34 Automated erythrocyte mean corpuscular hemoglobin concentration measurement ( mass/volume) 32 g/dL 32-36 Automated erythrocyte distribution width ratio 14.5 % 10.0-14.5 Automated blood platelet count (count/volume) 357 10*3/uL 130-400 Automated blood platelet mean volume measurement 10.9 [foz_us] 7.4-10.4 Automated blood neutrophils/100 leukocytes 52 % 42-75 Automated blood lymphocytes/100 leukocytes 34 % 12-44 Blood monocytes/100 leukocytes 9 % 0-12 Automated blood eosinophils/100 leukocytes 4 % 0-10 Automated blood basophils/100 leukocytes 1 % 0-10 Blood neutrophils automated count (number/volume) 2.3 10*3 1.8-7.8 Blood lymphocytes automated count (number/volume) 1.5 10*3 1.0-4.0 Blood monocytes automated count (number/volume) 0.4 10*3 0.0-1.0 Automated eosinophil count 0.2 10*3/uL 0.0-0.3 Automated blood basophil count (count/volume) 0.0 10*3/uL 0.0-0.1 Whole blood basic metabolic panel - 12/09/16 05:25 Serum or plasma sodium measurement (moles/volume) 144 mmol/L 135-145 Serum or plasma potassium measurement (moles/volume) 3.6 mmol/L 3.6-5.0 Serum or plasma chloride measurement (moles/volume) 111 mmol/L 98-107 Carbon dioxide 26 mmol/L 21-32 Serum or plasma anion gap determination (moles/volume) 7 mmol/L 5-14 Serum or plasma urea nitrogen measurement (mass/volume) 8 mg/dL 7-18 Serum or plasma creatinine measurement (mass/volume) 0.72 mg/dL 0.60-1.30 Serum or plasma urea nitrogen/creatinine mass ratio 11 NRG Serum or plasma creatinine measurement with calculation of estimated glomerular filtration rate > NRG Serum or plasma glucose measurement (mass/volume) 129 mg/dL 70-105 Serum or plasma calcium measurement (mass/volume) 8.4 mg/dL 8.5-10.1 Hemoglobin A1c - 12/09/16 05:25 Hemoglobin A1c 9.1 % 4.5-6.2 Methicillin resistant Staphylococcus aureus (MRSA) screening culture - 09:00 Methicillin resistant Staphylococcus aureus (MRSA) screening culture NEG NRG Capillary blood glucose measurement by glucometer (mass/volume) - 12/09/16 10: 49 Capillary blood glucose measurement by glucometer (mass/volume) 220 mg/dL 70-110 Capillary blood glucose measurement by glucometer (mass/volume) - 12/09/16 16: 20 Capillary blood glucose measurement by glucometer (mass/volume) 135 mg/dL 70-110 Capillary blood glucose measurement by glucometer (mass/volume) - 12/09/16 21: 04 Capillary blood glucose measurement by glucometer (mass/volume) 168 mg/dL 70-110 Capillary blood glucose measurement by glucometer (mass/volume) - 12/09/16 23: 28 Capillary blood glucose measurement by glucometer (mass/volume) 184 mg/dL 70-110 Complete blood count (CBC) with automated white blood cell (WBC) differential - 12/10/16 06:35 Blood leukocytes automated count (number/volume) 3.9 10*3/uL 4.3-11.0 Blood erythrocytes automated count (number/volume) 3.41 10*6/uL 4.35-5.85 Venous blood hemoglobin measurement (mass/volume) 9.7 g/dL 13.3-17.7 Blood hematocrit (volume fraction) 31 % 40-54 Automated erythrocyte mean corpuscular volume 90 [foz_us] 80-99 Automated erythrocyte mean corpuscular hemoglobin (mass per erythrocyte) 28 pg 25-34 Automated erythrocyte mean corpuscular hemoglobin concentration measurement ( mass/volume) 32 g/dL 32-36 Automated erythrocyte distribution width ratio 14.3 % 10.0-14.5 Automated blood platelet count (count/volume) 333 10*3/uL 130-400 Automated blood platelet mean volume measurement 10.6 [foz_us] 7.4-10.4 Automated blood neutrophils/100 leukocytes 47 % 42-75 Automated blood lymphocytes/100 leukocytes 37 % 12-44 Blood monocytes/100 leukocytes 13 % 0-12 Automated blood eosinophils/100 leukocytes 3 % 0-10 Automated blood basophils/100 leukocytes 1 % 0-10 Blood neutrophils automated count (number/volume) 1.8 10*3 1.8-7.8 Blood lymphocytes automated count (number/volume) 1.4 10*3 1.0-4.0 Blood monocytes automated count (number/volume) 0.5 10*3 0.0-1.0 Automated eosinophil count 0.1 10*3/uL 0.0-0.3 Automated blood basophil count (count/volume) 0.0 10*3/uL 0.0-0.1 Comprehensive metabolic panel - 12/10/16 06:35 Serum or plasma sodium measurement (moles/volume) 142 mmol/L 135-145 Serum or plasma potassium measurement (moles/volume) 3.4 mmol/L 3.6-5.0 Serum or plasma chloride measurement (moles/volume) 109 mmol/L 98-107 Carbon dioxide 27 mmol/L 21-32 Serum or plasma anion gap determination (moles/volume) 6 mmol/L 5-14 Serum or plasma urea nitrogen measurement (mass/volume) 7 mg/dL 7-18 Serum or plasma creatinine measurement (mass/volume) 0.70 mg/dL 0.60-1.30 Serum or plasma urea nitrogen/creatinine mass ratio 10 NRG Serum or plasma creatinine measurement with calculation of estimated glomerular filtration rate > NRG Serum or plasma glucose measurement (mass/volume) 147 mg/dL 70-105 Serum or plasma calcium measurement (mass/volume) 8.2 mg/dL 8.5-10.1 Serum or plasma total bilirubin measurement (mass/volume) 0.3 mg/dL 0.1-1.0 Serum or plasma alkaline phosphatase measurement (enzymatic activity/volume) 81 U/L 40-136 Serum or plasma aspartate aminotransferase measurement (enzymatic activity/ volume) 20 U/L 5-34 Serum or plasma alanine aminotransferase measurement (enzymatic activity/volume ) 16 U/L 0-55 Serum or plasma protein measurement (mass/volume) 6.0 g/dL 6.4-8.2 Serum or plasma albumin measurement (mass/volume) 2.7 g/dL 3.2-4.5 Capillary blood glucose measurement by glucometer (mass/volume) - 12/10/16 11: 39 Capillary blood glucose measurement by glucometer (mass/volume) 138 mg/dL 70-110 Bacteria identification in isolate by anaerobe culture - 12/10/16 12:40 Bacteria identification in isolate by anaerobe culture NOANA NRG Gram stain microscopy - 12/10/16 12:40 Gram stain microscopy Occasional gram positive cocci resembling Staph NRG Bacteria identification in wound by culture - 12/10/16 12:40 Bacteria identification in wound by culture [id number] NR FREE TEXT EXTERNAL SENSITIVITY REPORTED AT 1519, 5 NRG QUANTITY OF GROWTH Scant Growth NRG MRSA AGAR Screening test for MRSA is NEGATIVE (Final to follow) NR Bacterial susceptibility panel - 12/10/16 12:40 Oxacillin susceptibility test by minimum inhibitory concentration < = NRG Gentamicin susceptibility test by minimum inhibitory concentration < = NRG Clindamycin susceptibility test by minimum inhibitory concentration <= NRG Erythromycin susceptibility test by minimum inhibitory concentration <= NRG Trimethoprim/sulfamethoxazole susceptibility test by minimum inhibitoryconcentration <= NRG Vancomycin susceptibility test by minimum inhibitory concentration 1 NRG Levofloxacin susceptibility test by minimum inhibitory concentration <= NRG Rifampin susceptibility test by minimum inhibitory concentration <= NRG Tetracycline susceptibility test by minimum inhibitory concentration <= NRG Bacteria identification in isolate by anaerobe culture - 12/10/16 12:56 Bacteria identification in isolate by anaerobe culture NOANA NRG Gram stain microscopy - 12/10/16 12:56 GRAM STAIN RESULT NO BACTERIA NRG Bacteria identification in wound by culture - 12/10/16 12:56 Bacteria identification in wound by culture [id number] NR FREE TEXT EXTERNAL REFER TO CULTURE [id number] FOR SENSITIVITY NRG QUANTITY OF GROWTH Scant Growth NRG MRSA AGAR Screening test for MRSA is NEGATIVE (Final to follow) NRG Capillary blood glucose measurement by glucometer (mass/volume) - 12/10/16 18: 30 Capillary blood glucose measurement by glucometer (mass/volume) 214 mg/dL 70-110 Capillary blood glucose measurement by glucometer (mass/volume) - 12/10/16 22: 18 Capillary blood glucose measurement by glucometer (mass/volume) 208 mg/dL 70-110 Complete blood count (CBC) with automated white blood cell (WBC) differential - 12/11/16 05:55 Blood leukocytes automated count (number/volume) 4.6 10*3/uL 4.3-11.0 Blood erythrocytes automated count (number/volume) 3.11 10*6/uL 4.35-5.85 Venous blood hemoglobin measurement (mass/volume) 9.0 g/dL 13.3-17.7 Blood hematocrit (volume fraction) 28 % 40-54 Automated erythrocyte mean corpuscular volume 91 [foz_us] 80-99 Automated erythrocyte mean corpuscular hemoglobin (mass per erythrocyte) 29 pg 25-34 Automated erythrocyte mean corpuscular hemoglobin concentration measurement ( mass/volume) 32 g/dL 32-36 Automated erythrocyte distribution width ratio 14.3 % 10.0-14.5 Automated blood platelet count (count/volume) 314 10*3/uL 130-400 Automated blood platelet mean volume measurement 10.5 [foz_us] 7.4-10.4 Automated blood neutrophils/100 leukocytes 57 % 42-75 Automated blood lymphocytes/100 leukocytes 28 % 12-44 Blood monocytes/100 leukocytes 11 % 0-12 Automated blood eosinophils/100 leukocytes 3 % 0-10 Automated blood basophils/100 leukocytes 1 % 0-10 Blood neutrophils automated count (number/volume) 2.6 10*3 1.8-7.8 Blood lymphocytes automated count (number/volume) 1.3 10*3 1.0-4.0 Blood monocytes automated count (number/volume) 0.5 10*3 0.0-1.0 Automated eosinophil count 0.1 10*3/uL 0.0-0.3 Automated blood basophil count (count/volume) 0.0 10*3/uL 0.0-0.1 Whole blood basic metabolic panel - 12/11/16 05:55 Serum or plasma sodium measurement (moles/volume) 141 mmol/L 135-145 Serum or plasma potassium measurement (moles/volume) 3.1 mmol/L 3.6-5.0 Serum or plasma chloride measurement (moles/volume) 108 mmol/L 98-107 Carbon dioxide 26 mmol/L 21-32 Serum or plasma anion gap determination (moles/volume) 7 mmol/L 5-14 Serum or plasma urea nitrogen measurement (mass/volume) 7 mg/dL 7-18 Serum or plasma creatinine measurement (mass/volume) 0.66 mg/dL 0.60-1.30 Serum or plasma urea nitrogen/creatinine mass ratio 11 NRG Serum or plasma creatinine measurement with calculation of estimated glomerular filtration rate > NRG Serum or plasma glucose measurement (mass/volume) 88 mg/dL 70-105 Serum or plasma calcium measurement (mass/volume) 7.9 mg/dL 8.5-10.1 Serum iron and total iron binding capacity panel - 12/11/16 05:55 Serum or plasma iron measurement (mass/volume) 32 % 40- 180 Total iron binding capacity and transferrin saturation measurement 16 % 15-50 Iron binding capacity [mass/volume] in serum or plasma 205 % 280-380 UIBC (unsaturated iron binding capacity) 173 % 55-450 Serum or plasma ferritin measurement (mass/volume) 128.0 % 25.0-300.0 Capillary blood glucose measurement by glucometer (mass/volume) - 12/11/16 09: 56 Capillary blood glucose measurement by glucometer (mass/volume) 95 mg/dL 70-110 Capillary blood glucose measurement by glucometer (mass/volume) - 12/11/16 15: 04 Capillary blood glucose measurement by glucometer (mass/volume) 140 mg/dL 70-110 Capillary blood glucose measurement by glucometer (mass/volume) - 12/11/16 19: 50 Capillary blood glucose measurement by glucometer (mass/volume) 157 mg/dL 70-110 Capillary blood glucose measurement by glucometer (mass/volume) - 12/12/16 05: 14 Capillary blood glucose measurement by glucometer (mass/volume) 94 mg/dL 70-110 Complete blood count (CBC) with automated white blood cell (WBC) differential - 12/12/16 05:46 Blood leukocytes automated count (number/volume) 3.6 10*3/uL 4.3-11.0 Blood erythrocytes automated count (number/volume) 3.12 10*6/uL 4.35-5.85 Venous blood hemoglobin measurement (mass/volume) 8.9 g/dL 13.3-17.7 Blood hematocrit (volume fraction) 29 % 40-54 Automated erythrocyte mean corpuscular volume 91 [foz_us] 80-99 Automated erythrocyte mean corpuscular hemoglobin (mass per erythrocyte) 29 pg 25-34 Automated erythrocyte mean corpuscular hemoglobin concentration measurement ( mass/volume) 31 g/dL 32-36 Automated erythrocyte distribution width ratio 14.8 % 10.0-14.5 Automated blood platelet count (count/volume) 310 10*3/uL 130-400 Automated blood platelet mean volume measurement 11.4 [foz_us] 7.4-10.4 Automated blood neutrophils/100 leukocytes 38 % 42-75 Automated blood lymphocytes/100 leukocytes 45 % 12-44 Blood monocytes/100 leukocytes 13 % 0-12 Automated blood eosinophils/100 leukocytes 5 % 0-10 Automated blood basophils/100 leukocytes 0 % 0-10 Blood neutrophils automated count (number/volume) 1.4 10*3 1.8-7.8 Blood lymphocytes automated count (number/volume) 1.6 10*3 1.0-4.0 Blood monocytes automated count (number/volume) 0.5 10*3 0.0-1.0 Automated eosinophil count 0.2 10*3/uL 0.0-0.3 Automated blood basophil count (count/volume) 0.0 10*3/uL 0.0-0.1 Whole blood basic metabolic panel - 12/12/16 05:46 Serum or plasma sodium measurement (moles/volume) 144 mmol/L 135-145 Serum or plasma potassium measurement (moles/volume) 3.4 mmol/L 3.6-5.0 Serum or plasma chloride measurement (moles/volume) 113 mmol/L 98-107 Carbon dioxide 27 mmol/L 21-32 Serum or plasma anion gap determination (moles/volume) 4 mmol/L 5-14 Serum or plasma urea nitrogen measurement (mass/volume) 10 mg/dL 7-18 Serum or plasma creatinine measurement (mass/volume) 0.61 mg/dL 0.60-1.30 Serum or plasma urea nitrogen/creatinine mass ratio 16 NRG Serum or plasma creatinine measurement with calculation of estimated glomerular filtration rate > NRG Serum or plasma glucose measurement (mass/volume) 106 mg/dL 70-105 Serum or plasma calcium measurement (mass/volume) 8.0 mg/dL 8.5-10.1 Capillary blood glucose measurement by glucometer (mass/volume) - 12/12/16 10: 34 Capillary blood glucose measurement by glucometer (mass/volume) 167 mg/dL 70-110 Capillary blood glucose measurement by glucometer (mass/volume) - 12/12/16 14: 59 Capillary blood glucose measurement by glucometer (mass/volume) 107 mg/dL 70-110 Encounters ACCT No. Visit Date/Time Discharge Status Pt. Type Provider Facility Loc./Unit Complaint [id number] 07/24/2014 14:12:00 07/24/2014 23:59:59 CLS Outpatient SUSAN QUIÑONEZ MD [id number] 07/24/2014 14:12:00 07/24/2014 23:59:59 [facility] Outpatient SUSAN QUIÑONEZ MD [id number] 03/14/2014 09:48:00 03/14/2014 23:59:59 CLS Outpatient SUSAN QUIÑONEZ MD [id number] 01/17/2014 00:00:00 01/17/2014 23:59:59 [facility] Outpatient SUSAN QUIÑONEZ MD [id number] 12/15/2013 08:53:00 12/15/2013 23:59:59 CLS Outpatient SUSAN QUIÑONEZ MD [id number] 12/15/2013 08:53:00 12/15/2013 23:59:59 CLS Outpatient SUSAN QUIÑONEZ MD [id number] 12/08/2013 18:11:00 12/08/2013 23:59:59 CLS Outpatient SUSAN QUIÑONEZ MD [id number] 12/01/2013 00:00:00 12/01/2013 23:59:59 CLS Outpatient SUSAN QUIÑONEZ MD [id number] 09/26/2013 16:18:00 09/26/2013 23:59:59 CLS Outpatient SUSAN QUIÑONEZ MD [id number] 09/13/2013 12:57:00 09/13/2013 23:59:59 CLS Outpatient COLBY LOVE DO [id number] 07/08/2013 08:36:00 07/08/2013 23:59:59 CLS Outpatient SUSAN QUIÑONEZ MD [id number] 07/08/2013 08:36:00 07/08/2013 23:59:59 CLS Outpatient SUSAN QUIÑONEZ MD [id number] 01/25/2013 08:37:00 01/25/2013 23:59:59 [facility]AMOND Outpatient SUSAN QUIÑONEZ MD [id number] 07/01/2012 11:40:00 07/01/2012 23:59:59 CLS Outpatient SUSAN QUIÑONEZ MD [id number] 10/24/2011 11:16:00 10/24/2011 23:59:59 CLS Outpatient [id number] 12/06/2016 22:16:00 12/12/2016 19:50:00 DIS Inpatient SVETLANA GALVEZ, NIRANJAN Miller [facility] 4TH OSTEOMYLITIS/ABSCESS R FOOT [id number] 05/08/2016 06:00:00 05/08/2016 10:25:00 DIS Outpatient JOSE ZAVALA DO [facility] CYST LEFT NECK [id number] 05/05/2016 11:12:00 05/05/2016 11:35:00 DIS Outpatient JOSE ZAVALA DO [facility] PREOP LEFT NECK CYST [id number] 08/31/2015 12:03:00 09/01/2015 11:20:00 DIS Outpatient BATOOL DPM, KENNY Q [facility] OSTEOMYELITIS RT FOOT [id number] 12/15/2014 13:10:00 12/15/2014 16:45:00 DIS Outpatient BATOOL DPM, KENNY Q [facility] OSTEOMYLITIS RIGHT FOOT [id number] 12/13/2014 13:05:00 12/13/2014 23:59:59 CLS Outpatient BATOOL DPM, KENNY Q [facility] PREOP OSTEOMYLITIS RIGHT FOOT [id number] 12/06/2014 10:57:00 12/06/2014 23:59:59 CLS Outpatient BATOOL DPM, KENNY Q [facility] CARD ULCERATION R 2ND DIDGIT [id number] 03/17/2014 10:43:00 03/17/2014 16:05:00 DIS Outpatient BATOOL DPM, KENNY Q [facility] OSTEOMYLITITS LEFT SECOND TOE [id number] 03/14/2014 08:59:00 03/14/2014 23:59:59 CLS Outpatient BATOOL DPM, KENNY Q [facility] PREOP OSTEOMYLITIS LEFT SECOND TOE [id number] 03/09/2014 07:02:00 03/09/2014 23:59:59 CLS Outpatient BATOOL DPM, KENNY Q [facility] CARD OSTEOMYLITIS L 2 ND DIGIT [id number] 09/27/2013 05:59:00 09/27/2013 09:45:00 DIS Outpatient BATOOL DPM, KENNY Q [facility] SDC OSTEOMALITIS LEFT FOOT [id number] 09/26/2013 15:36:00 09/26/2013 23:59:59 CLS Outpatient BATOOL DPM, KENNY Q [facility] PREOP OSTEOMALITITS LEFT THIRD FOOT [id number] 09/23/2013 10:58:00 09/23/2013 23:59:59 CLS Outpatient BATOOL DPM, KENNY Q [facility] RAD CHRONIC WOUND,CELLULITIS [id number] 09/13/2013 10:32:00 09/13/2013 23:59:59 CLS Outpatient BATOOL DPM, KENNY Q [facility] RAD STABE WOUND,CHRONIC WOUND ,HX OF DM [id number] 08/23/2015 12:26:00 Document Registration [id number] 08/23/2015 11:41:00 Document Registration [id number] 12/06/2014 10:58:00 Document Registration [id number] 11/21/2010 15:17:00 Document Registration
[2017-09-01] MEDS ORDERED: TACR0.5C PO (00:07)
[2017-09-01] MEDS ORDERED: NF-MYC250C PO (00:07)
[2017-09-01] MEDS ORDERED: ALEN70TA2 PO (00:09)
[2017-09-01] MEDS ORDERED: URSO250T11 PO (00:09)
[2017-09-01] MEDS ORDERED: LANS15TA5 PO (00:09)
[2017-09-01] MEDS ORDERED: TEST2.5G6 TD (00:09)
--- NOTE | 2017-09-01 00:14 | ED Lower Extremity ---
General Chief Complaint: Skin/Wound Problems Stated Complaint: TOE INFECTION Source: patient, EMS History of Present Illness Date Seen by Provider: Aug 31, 2017 Time Seen by Provider: 23:56 Initial Comments PT ARRIVES VIA EMS FROM HOME PT AMBULATES INTO ER ON HIS OWN FROM THE AMBULANCE PT IS WEARING PLASTIC BAGS ON HIS FEET AND PLASTIC GLOVES ON HIS HANDS. EMS REPORT THAT HOUSE WAS EXTREMELY FILTHY. PT HAS REPORTED TO EMS THAT HE HAS BODY LICE, BUT ALSO STATES THAT 2 DOCTORS HAVE TOLD HIM HE DID NOT HAVE LICE, BUT PT THINKS HE DOES BECAUSE HIS SKIN ITCHES ALL THE TIME. PT C/O RIGHT FOOT REDNESS, WARMTH, SWELLING AND PAIN FOR AT LEAST A MONTH HAS HISTORY OF CELLULITIS, OSTEOMYELITIS AND HAS HAD RIGHT TOES 1 AND 2 AMPUTATED, AND LEFT TOE 2 AND PART OF 3 REMOVED. PT IS NON-COMPLIANT DIABETIC. DOES NOT OWN GLUCOMETER. STATES HE HAS HAD CHILLS OFF AND ON BUT HAS NOT CHECKED HIS TEMPERATURE PT HAS NOT SOUGHT CARE UNTIL TODAY SYMPTOMS ARE NO DIFFERENT TODAY HAS NOT TAKEN ANYTHING FOR SYMPTOMS PCP: DR. QUIÑONEZ AT [facility] [employer]: DR. RENAE Allergies and Home Medications Allergies Coded Allergies: Rohit Known Allergies (Verified Allergy, Unknown, 11/24/05) Home Medications No Active Prescriptions or Reported Meds Constitutional: see HPI, chills EENTM: no symptoms reported Respiratory: no symptoms reported Cardiovascular: no symptoms reported Gastrointestinal: no symptoms reported Genitourinary: no symptoms reported Musculoskeletal: see HPI Skin: see HPI, pruritus Psychiatric/Neurological: See HPI, Pre-Existing Deficit (NEUROPATHY IN FEET) Past Xfgrgpf-Bivkgl-Flemnb Hx Patient Social History Alcohol Use: Regular Use (HISTORY OF VERY HEAVY USE--PT STATES "ALOT"--MORE THAN A CASE OF BEER A DAY , MOSTLY BEER, AND OCCASIONALLY HARD LIQUOR. NOW DRINKS "OCCASIONALLY"-NOT EVERY DAY, BUT A FEW DAYS A WEEK. ) Alcohol Beverage of Choice: Beer Recreational Drug Use: Yes (+IV METH AND COCAINE, THC USE; NOW ONLY SMOKES METH AND OCCASIONALLY THC) Drug of Choice: +IV METH AND COCAINE, THC USE. NOW SMOKES METH AND OCCASIONALLY THC Smoking Status: Former Smoker (5 PPD, QUIT 2000) Type Used: Cigarettes 2nd Hand Smoke Exposure: No Recent Foreign Travel: No Contact w/Someone Who Travel: No Recent Hopitalizations: No Immunizations Up To Date Date of Pneumonia Vaccine: Aug 03, 2011 Seasonal Allergies Seasonal Allergies: No Surgeries History of Surgeries: Yes (TOE/FOOT AMPUTATIONS--RIGHT GREAT AND SECOND TOE PART OF FIRST AND SECOND METARASALS, AND LEFT SECOND TOE AND PART OF 3RD TOE. ) Surgeries: Appendectomy, Gallbladder, Liver Transplant, Orthopedic, Tonsillectomy Respiratory History of Respiratory Disorde: No Cardiovascular History of Cardiac Disorders: Yes Cardiac Disorders: Hypertension Neurological History of Neurological Disord: Yes (NEUROPATHY IN FEET) Neurological Disorders: Neuropathy Reproductive System Hx Reproductive Disorders: No Sexually Transmitted Disease: No HIV/AIDS: No Genitourinary History of Genitourinary Disor: No Gastrointestinal History of Gastrointestinal Di: Yes (HEPATITIS C--S/P INTERFERON TREATMENT; LIVER TRANSPLANT 2002) Gastrointestinal Disorders: Liver Disease/Jaundice, Chronic Constipation, Hepatitis, Cirrhosis Musculoskeletal History of Musculoskeletal Dis: Yes (TOES AMPUTATED. CELLULITIS/OSTEOMYELITIS OF FEET/TOES) Musculoskeletal Disorders: Amputee, Arthritis, Chronic Back Pain Endocrine History of Endocrine Disorders: Yes (NON-COMPLIANT. DOES NOT OWN A GLUCOMETER) Endocrine Disorders: Diabetes, Non-Insulin dep HEENT History of HEENT Disorders: Yes (EDENTULOUS) Loss of Vision: Left Hearing Impairment: Denies Cancer History of Cancer: No Psychosocial History of Psychiatric Problem: Yes Behavioral Health Disorders: Anxiety, Depression Integumentary History of Skin or Integumenta: Yes (CYST LEFT NECK; CELLULITIS/OSTEOMYELITIS OF FEET) Blood Transfusions History of Blood Disorders: No Adverse Reaction to a Blood Tr: No Physical Exam Vital Signs Vital Sign - Last 12Hours 09/01/17 00:10 Temp 97.3 Pulse 110 Resp 18 B/P (MAP) 114/86 (95) Pulse Ox 97 O2 Delivery Room Air Capillary Refill : General Appearance: WD/WN, no apparent distress, other (PT ARRIVES WEARING PLASTIC GLOVES ON HANDS AND PLASTIC BAGS ON FEET. CONSTANT GUTTERAL NOISES. DOES NOT APPEAR TO BE IN ANY DISCOMFORT OR DISTRESS. PT AMBULATES INTO ER FROM THE AMBULANCE ON HIS OWN. CONSTANT MOVEMENTS OF BODY AND MOUTH. ) HEENT: PERRL/EOMI, other (EDENTULOUS) Neck: normal inspection Cardiovascular: normal peripheral pulses, no JVD, no murmur, tachycardia (110) Respiratory: normal breath sounds, no respiratory distress, no accessory muscle use Gastrointestinal: non tender, soft Hips: bilateral hip normal inspection Legs: bilateral leg normal inspection Knees: bilateral knee normal inspection Ankles: bilateral ankle normal inspection Feet: bilateral foot other (RIGHT FOOT WITH CALLOUS TO BASE OF 2ND METATARSAL AREA. ENTIRE RIGHT FOOT WITH 2+ EDEMA, ERYTHEMA AND WARMTH. THIS EXTEND UP TO ANKLE, WITH FAINT ERYTHEMA NOTED TO EXTEND TO MID ASPECT OF LOWER LEG. LEFT 3RD TOE IS ALSO RED, WARM AND SWOLLEN. PEDAL PULSES +3/4 BILATERALLY. PT HAS MINIMAL SENSATION IN FEET. ROM IS INTACT. 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 SOME MILD EXCORIATIONS NOTED TO BILATERAL LOWER LEGS. PT IS BALD/HEAD SHAVED. NO OBVIOUS LICE OR SCABIES NOTED. FEW SORES/SCABS/SCARS TO FACE AND NECK. ) Progress/Results/Core Measures Results/Orders Lab Results Laboratory Tests Test 09/01/17 00:15 09/01/17 00:25 09/01/17 00:35 Range/Units White Blood Count 4.7 4.3-11.0 10^3/uL Red Blood Count 4.60 4.35-5.85 10^6/uL Hemoglobin 13.7 13.3-17.7 G/DL Hematocrit 39 L 40-54 % Mean Corpuscular Volume 85 80-99 FL Mean Corpuscular Hemoglobin 30 25-34 PG Mean Corpuscular Hemoglobin Concent 35 32-36 G/DL Red Cell Distribution Width 13.2 10.0-14.5 % Platelet Count 371 130-400 10^3/uL Mean Platelet Volume 10.2 7.4-10.4 FL Neutrophils (%) (Auto) 59 42-75 % Lymphocytes (%) (Auto) 24 12-44 % Monocytes (%) (Auto) 14 H 0-12 % Eosinophils (%) (Auto) 3 0-10 % Basophils (%) (Auto) 0 0-10 % Neutrophils # (Auto) 2.8 1.8-7.8 X 10^3 Lymphocytes # (Auto) 1.1 1.0-4.0 X 10^3 Monocytes # (Auto) 0.7 0.0-1.0 X 10^3 Eosinophils # (Auto) 0.1 0.0-0.3 10^3/uL Basophils # (Auto) 0.0 0.0-0.1 10^3/uL Erythrocyte Sedimentation Rate 46 H 0-30 MM/HR Prothrombin Time 12.8 12.2-14.7 SEC INR Comment 1.0 0.8-1.4 Activated Partial Thromboplast Time 29 24-35 SEC Sodium Level 136 135-145 MMOL/L Potassium Level 3.9 3.6-5.0 MMOL/L Chloride Level 101 98-107 MMOL/L Carbon Dioxide Level 25 21-32 MMOL/L Anion Gap 10 5-14 MMOL/L Blood Urea Nitrogen 18 7-18 MG/DL Creatinine 0.80 0.60-1.30 MG/DL Estimat Glomerular Filtration Rate > 60 BUN/Creatinine Ratio 23 Glucose Level 264 H 70-105 MG/DL Lactic Acid Level 1.26 0.50-2.00 MMOL/L Calcium Level 9.2 8.5-10.1 MG/DL Magnesium Level 1.6 L 1.8-2.4 MG/DL Total Bilirubin 0.5 0.1-1.0 MG/DL Aspartate Amino Transf (AST/SGOT) 20 5-34 U/L Alanine Aminotransferase (ALT/SGPT) 25 0-55 U/L Alkaline Phosphatase 137 H 40-136 U/L C-Reactive Protein High Sensitivity 9.16 H 0.00-0.50 MG/DL Total Protein 7.8 6.4-8.2 GM/DL Albumin 3.4 3.2-4.5 GM/DL Urine Color YELLOW Urine Clarity CLEAR Urine pH 6 5-9 Urine Specific [place] 1.010 L 1.016-1.022 Urine Protein 1+ H NEGATIVE Urine Glucose (UA) 4+ H NEGATIVE Urine Ketones NEGATIVE NEGATIVE Urine Nitrite NEGATIVE NEGATIVE Urine Bilirubin NEGATIVE NEGATIVE Urine Urobilinogen NORMAL NORMAL MG/DL Urine Leukocyte Esterase NEGATIVE NEGATIVE Urine RBC (Auto) 4+ H NEGATIVE Urine RBC 10-25 H /HPF Urine WBC NONE /HPF Urine Squamous Epithelial Cells 5-10 /HPF Urine Crystals NONE /LPF Urine Bacteria NEGATIVE /HPF Urine Casts NONE /LPF Urine Mucus NEGATIVE /LPF Urine Culture Indicated NO Urine Opiates Screen NEGATIVE NEGATIVE Urine Oxycodone Screen NEGATIVE NEGATIVE Urine Methadone Screen NEGATIVE NEGATIVE Urine Propoxyphene Screen NEGATIVE NEGATIVE Urine Barbiturates Screen NEGATIVE NEGATIVE Ur Tricyclic Antidepressants Screen NEGATIVE NEGATIVE Urine Phencyclidine Screen NEGATIVE NEGATIVE Urine Amphetamines Screen POSITIVE H NEGATIVE Urine Methamphetamines Screen POSITIVE H NEGATIVE Urine Benzodiazepines Screen NEGATIVE NEGATIVE Urine Cocaine Screen NEGATIVE NEGATIVE Urine Cannabinoids Screen NEGATIVE NEGATIVE Serum Alcohol < 10 <10 MG/DL My Orders Orders - CORONA BERG DO Saline Lock/Iv-Start (09/01/17 00:07) Cbc With Automated Diff (09/01/17 00:07) Comprehensive Metabolic Panel (09/01/17 00:07) Hs C Reactive Protein (09/01/17 00:07) Erythrocyte Sedimentation Rate (09/01/17 00:07) Drug Screen Stat (Urine) (09/01/17 00:07) Lactic Acid Analyzer (09/01/17 00:07) Magnesium (09/01/17 00:07) Protime With Inr (09/01/17 00:07) Partial Thromboplastin Time (09/01/17 00:07) Ua Culture If Indicated (09/01/17 00:07) Blood Culture (09/01/17 00:07) Foot, Right, 3 View (09/01/17 00:07) Vancomycin Injection (Vancomycin Injecti (09/01/17 01:00) Vital Signs/I&O Vital Sign - Last 12Hours 09/01/17 00:10 Temp 97.3 Pulse 110 Resp 18 B/P (MAP) 114/86 (95) Pulse Ox 97 O2 Delivery Room Air Progress Note : Progress Note PT HAD NO COMPLAINTS DURING ER STAY Diagnostic Imaging Comments XRAYS RIGHT FOOT--SOFT TISSUE SWELLING, NO SUB Q GAS/AIR, SUSPECTED BONY EROSION TO DISTAL 3RD METATARSAL, AND APPEARS TO HAVE CHRONIC APPEARING SUBLUXATION OF 3RD MTP JOINT. Reviewed: Reviewed by Me Departure Communication (Admissions) Time/Spoke to Admitting Phy: 00:[address] Aliya DORMAN. ACCEPTS PT FOR ADMIT. ADVISES MRI IN AM. Impression Impression: Primary Impression: Osteomyelitis of right foot Additional Impressions: CELLULITIS RIGHT FOOT AND TOES, AND LEFT TOES NIDDM Illicit drug use S/P liver transplant Alcoholism HEPATITIS C HISTORY -S/P INTERERON TREATMENT SUSPECTED PSYCHOGENIC PARASITOSIS DUE TO METH USE Methamphetamine addiction Hematuria Non-compliance Disposition: ADMITTED INPATIENT Condition: Stable Admissions Decision to Admit Reason: Admit from ER (General) Decision to Admit/Date: Sep 01, 2017 Time/Decision to Admit Time: 01:00 Departure-Patient Inst. Referrals: SUSAN QUIÑONEZ MD (PCP/Family) Primary Care Physician Scripts No Active Prescriptions or Reported Meds CORONA BERG DO Sep 01, 2017 00:14
[2017-09-01 00:25] LABS: BASOPHILS % (AUTO) 0 % (0-10); EOSINOPHILS # (AUTO) 0.1 10^3/uL (0.0-0.3); EOSINOPHILS % (AUTO) 3 % (0-10); HEMATOCRIT 39 % (40-54); HEMOGLOBIN 13.7 G/DL (13.3-17.7); LYMPHOCYTES # (AUTO) 1.1 X 10^3 (1.0-4.0); LYMPHOCYTES % (AUTO) 24 % (12-44); MEAN CORPUSCULAR HEMOGLOBIN 30 PG (25-34); MEAN CORPUSCULAR HGB CONC 35 G/DL (32-36); MEAN CORPUSCULAR VOLUME 85 FL (80-99); MEAN PLATELET VOLUME 10.2 FL (7.4-10.4); MONOCYTES # (AUTO) 0.7 X 10^3 (0.0-1.0); MONOCYTES % (AUTO) 14 % (0-12); NEUTROPHILS # (AUTO) 2.8 X 10^3 (1.8-7.8); NEUTROPHILS % (AUTO) 59 % (42-75); PLATELET COUNT 371 10^3/uL (130-400); RED CELL DISTRIBUTION WIDTH 13.2 % (10.0-14.5); WHITE BLOOD COUNT 4.7 10^3/uL (4.3-11.0)
[2017-09-01 00:34] LABS: PROTHROMBIN TIME PATIENT 12.8 SEC (12.2-14.7)
[2017-09-01 00:39] LABS: BILIRUBIN,URINE NEGATIVE (NEGATIVE); CLARITY,URINE CLEAR; COLOR,URINE YELLOW; GLUCOSE, URINE (UA) 4+ (NEGATIVE); KETONES,URINE NEGATIVE (NEGATIVE); LEUKOCYTE ESTERASE ,URINE NEGATIVE (NEGATIVE); NITRITE,URINE NEGATIVE (NEGATIVE); PH,URINE 6 (5-9); PROTEIN,URINE 1+ (NEGATIVE); UROBILINOGEN,URINE NORMAL (NORMAL)
[2017-09-01 00:45] LABS: ALANINE AMINOTRANSFERASE 25 U/L (0-55); ALBUMIN 3.4 GM/DL (3.2-4.5); ALKALINE PHOSPHATASE 137 U/L (40-136); BILIRUBIN,TOTAL 0.5 MG/DL (0.1-1.0); BUN/CREATININE RATIO 23; CALCIUM 9.2 MG/DL (8.5-10.1); CARBON DIOXIDE 25 MMOL/L (21-32); CHLORIDE 101 MMOL/L (98-107); GFR ESTIMATED > 60; GLUCOSE 264 MG/DL (70-105); MAGNESIUM 1.6 MG/DL (1.8-2.4); POTASSIUM 3.9 MMOL/L (3.6-5.0); SODIUM 136 MMOL/L (135-145); TOTAL PROTEIN 7.8 GM/DL (6.4-8.2)
[2017-09-01 00:47] LABS: ERYTHROCYTE SEDIMENTATION RATE 46 MM/HR (0-30)
[2017-09-01 00:50] LABS: AMPHETAMINE SCREEN, URINE POSITIVE (NEGATIVE); BARBITURATE SCREEN URINE NEGATIVE (NEGATIVE); BENZODIAZEPINES SCREEN URINE NEGATIVE (NEGATIVE); CANNABINOID SCREEN, URINE NEGATIVE (NEGATIVE); COCAINE SCREEN URINE NEGATIVE (NEGATIVE); METHADONE STAT NEGATIVE (NEGATIVE); METHAMPHETAMINE SCREEN URINE S POSITIVE (NEGATIVE); OPIATE SCREEN URINE NEGATIVE (NEGATIVE); OXYCODONE STAT NEGATIVE (NEGATIVE); PROPOXYPHENE STAT NEGATIVE (NEGATIVE); TRICYCLIC ANTIDEPRESSANTS SCRE NEGATIVE (NEGATIVE)
[2017-09-01 00:54] LABS: BACTERIA,URINE NEGATIVE /HPF
[2017-09-01] MEDS ORDERED: VANCOMYCIN INJECTION 1,000 MG in NS (IVPB) 250 ML IV ONE (01:00)
[2017-09-01] MEDS ORDERED: IBUPROFEN 800 MG (MOTRIN) TAB PO PRN (02:45)
[2017-09-01 04:03] VITALS: BP 139/82
[2017-09-01] MEDS: inSUlin (REGULAR) HUMAN 1 UNIT/0.01 ML (CHARGE PER UNIT) SC SCH ×4 (06:30→22:43)
[2017-09-01] MEDS ORDERED: CATHETER FLUSH 10 ML SYR IV PRN ×2 (06:45→14:00)
[2017-09-01 06:52] LABS: BASOPHILS % (AUTO) 1 % (0-10); EOSINOPHILS # (AUTO) 0.1 10^3/uL (0.0-0.3); EOSINOPHILS % (AUTO) 3 % (0-10); HEMATOCRIT 37 % (40-54); HEMOGLOBIN 12.8 G/DL (13.3-17.7); LYMPHOCYTES # (AUTO) 1.1 X 10^3 (1.0-4.0); LYMPHOCYTES % (AUTO) 27 % (12-44); MEAN CORPUSCULAR HEMOGLOBIN 30 PG (25-34); MEAN CORPUSCULAR HGB CONC 35 G/DL (32-36); MEAN CORPUSCULAR VOLUME 85 FL (80-99); MEAN PLATELET VOLUME 10.7 FL (7.4-10.4); MONOCYTES # (AUTO) 0.5 X 10^3 (0.0-1.0); MONOCYTES % (AUTO) 13 % (0-12); NEUTROPHILS # (AUTO) 2.4 X 10^3 (1.8-7.8); NEUTROPHILS % (AUTO) 57 % (42-75); PLATELET COUNT 326 10^3/uL (130-400); RED BLOOD COUNT 4.34 10^6/uL (4.35-5.85); RED CELL DISTRIBUTION WIDTH 13.3 % (10.0-14.5); WHITE BLOOD COUNT 4.2 10^3/uL (4.3-11.0)
[2017-09-01] MEDS ORDERED: INFLUENZA TRIvalent 2017-2018 0.5 ML/45 MCG SYR IM ONE (07:00)
[2017-09-01 07:12] LABS: ALANINE AMINOTRANSFERASE 25 U/L (0-55); ALBUMIN 3.1 GM/DL (3.2-4.5); ALKALINE PHOSPHATASE 123 U/L (40-136); BILIRUBIN,TOTAL 0.4 MG/DL (0.1-1.0); BUN/CREATININE RATIO 25; CALCIUM 8.9 MG/DL (8.5-10.1); CARBON DIOXIDE 23 MMOL/L (21-32); CHLORIDE 103 MMOL/L (98-107); CREATININE SERUM 0.77 MG/DL (0.60-1.30); GFR ESTIMATED > 60; GLUCOSE 295 MG/DL (70-105); POTASSIUM 3.9 MMOL/L (3.6-5.0); SODIUM 136 MMOL/L (135-145); TOTAL PROTEIN 7.1 GM/DL (6.4-8.2)
[2017-09-01 08:00] VITALS: BP 116/67
--- NOTE | 2017-09-01 08:15 | Diagnostic Imaging Report ---
INDICATION: Redness and warmth to the right foot. TIME OF EXAMINATION: 12:42 a.m. COMPARISON: Comparison is made with prior exam from 12/06/2016. FINDINGS: Great toe amputation with amputation of the majority of the first metatarsal is again noted. The resection margin of the first metatarsal is smooth. There has been interval amputation of the second toe and the distal half of the second metatarsal when compared with prior exam. Resection margin of the second metatarsal is smooth as well. There is chronic subluxation/dislocation of the third toe. There are some questionable erosive changes involving the distal aspect of the third metatarsal, new since prior radiographs. This may be owing to osteomyelitis. The fourth and fifth toes as well as fourth and fifth metatarsals are intact. Midfoot and hindfoot are unremarkable. No soft tissue gas is seen. IMPRESSION: Postsurgical changes. There are some erosive changes of the distal third metatarsal, suspicious for osteomyelitis. Dictated by: Dictated on workstation # [id number]
[2017-09-01] MEDS: VANCOMYCIN 1500 MG/NS 500 ML IVPB IV SCH ×4 (08:17→22:43)
[2017-09-01] MEDS ORDERED: PIPERACILLIN/TAZOBACTAM 4.5 GM/D5W 100 ML IV NR ×2 (08:30)
--- NOTE | 2017-09-01 11:49 | History & Physicial ([facility]) ---
HPI History of Present Illness: 66 yo male with history of liver transplant and diabetes off of all medications for several months, presented to ER with chills and not feeling well and redness and swelling in right foot with non-healing ulcer for about a month. He also notes non-healing wound on back that has been present for about a year, he occasionally uses a knife to scrape scab off of it. He hasn't been taking medications because he was concerned about side effects- after he discovered that Prograf could cause diabetes, he stopped all his medications. He has had osteomyelitis with toe amputations in the past, but does not recall if he has had vascular studies. Source: patient Date seen by provider: Sep 01, 2017 Time Seen by Provider: 10:40 Attending Physician Shima Shah MD PCP Andreas Vergara MD Consult Date of Admission Sep 01, 2017 at 1:00 am Home Medications Home Medications Reviewed patient Home Medication Reconciliation Form Allergies Coded Allergies: NKANo Known Allergies (Verified Allergy, Unknown, 11/24/05) TQP-[id number]-Wphwaf Hx Patient Social History Alcohol Use: Regular Use Recreational Drug Use: Yes (HX +IV METH AND COCAINE, THC USE; NOW ONLY SMOKES METH AND OCCASIONALLY THC) Drug of Choice: HX +IV METH AND COCAINE, THC USE. 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 digit amputation left Appendectomy Family Medical History Significant Family History: No Pertinent Family Hx Review of Systems ([facility]) Constitutional: chills, fever EENTM: nose congestion Respiratory: No cough, No short of breath Cardiovascular: No chest pain Gastrointestinal: No abdominal pain, No constipation, No diarrhea Genitourinary: No dysuria Musculoskeletal: No joint pain, No muscle pain Skin: see HPI Psychiatric/Neurological: No Symptoms Reported Reviewed Test Results Reviewed Test Results Lab Laboratory Tests Test 09/01/17 00:15 09/01/17 00:25 09/01/17 00:35 09/01/17 05:45 Range/Units White Blood Count 4.7 4.2 L 4.3-11.0 10^3/uL Red Blood Count 4.60 4.34 L 4.35-5.85 10^6/uL Hemoglobin 13.7 12.8 L 13.3-17.7 G/DL Hematocrit 39 L 37 L 40-54 % Mean Corpuscular Volume 85 85 80-99 FL Mean Corpuscular Hemoglobin 30 30 25-34 PG Mean Corpuscular Hemoglobin Concent 35 35 32-36 G/DL Red Cell Distribution Width 13.2 13.3 10.0-14.5 % Platelet Count 371 326 130-400 10^3/uL Mean Platelet Volume 10.2 10.7 H 7.4-10.4 FL Neutrophils (%) (Auto) 59 57 42-75 % Lymphocytes (%) (Auto) 24 27 12-44 % Monocytes (%) (Auto) 14 H 13 H 0-12 % Eosinophils (%) (Auto) 3 3 0-10 % Basophils (%) (Auto) 0 1 0-10 % Neutrophils # (Auto) 2.8 2.4 1.8-7.8 X 10^3 Lymphocytes # (Auto) 1.1 1.1 1.0-4.0 X 10^3 Monocytes # (Auto) 0.7 0.5 0.0-1.0 X 10^3 Eosinophils # (Auto) 0.1 0.1 0.0-0.3 10^3/uL Basophils # (Auto) 0.0 0.0 0.0-0.1 10^3/uL Erythrocyte Sedimentation Rate 46 H 0-30 MM/HR Prothrombin Time 12.8 12.2-14.7 SEC INR Comment 1.0 0.8-1.4 Activated Partial Thromboplast Time 29 24-35 SEC Sodium Level 136 136 135-145 MMOL/L Potassium Level 3.9 3.9 3.6-5.0 MMOL/L Chloride Level 101 103 98-107 MMOL/L Carbon Dioxide Level 25 23 21-32 MMOL/L Anion Gap 10 10 5-14 MMOL/L Blood Urea Nitrogen 18 19 H 7-18 MG/DL Creatinine 0.80 0.77 0.60-1.30 MG/DL Estimat Glomerular Filtration Rate > 60 > 60 BUN/Creatinine Ratio 23 25 Glucose Level 264 H 295 H 70-105 MG/DL Lactic Acid Level 1.26 0.50-2.00 MMOL/L Calcium Level 9.2 8.9 8.5-10.1 MG/DL Magnesium Level 1.6 L 1.8-2.4 MG/DL Total Bilirubin 0.5 0.4 0.1-1.0 MG/DL Aspartate Amino Transf (AST/SGOT) 20 25 5-34 U/L Alanine Aminotransferase (ALT/SGPT) 25 25 0-55 U/L Alkaline Phosphatase 137 H 123 40-136 U/L C-Reactive Protein High Sensitivity 9.16 H 0.00-0.50 MG/DL Total Protein 7.8 7.1 6.4-8.2 GM/DL Albumin 3.4 3.1 L 3.2-4.5 GM/DL Urine Color YELLOW Urine Clarity CLEAR Urine pH 6 5-9 Urine Specific [place] 1.010 L 1.016-1.022 Urine Protein 1+ H NEGATIVE Urine Glucose (UA) 4+ H NEGATIVE Urine Ketones NEGATIVE NEGATIVE Urine Nitrite NEGATIVE NEGATIVE Urine Bilirubin NEGATIVE NEGATIVE Urine Urobilinogen NORMAL NORMAL MG/DL Urine Leukocyte Esterase NEGATIVE NEGATIVE Urine RBC (Auto) 4+ H NEGATIVE Urine RBC 10-25 H /HPF Urine WBC NONE /HPF Urine Squamous Epithelial Cells 5-10 /HPF Urine Crystals NONE /LPF Urine Bacteria NEGATIVE /HPF Urine Casts NONE /LPF Urine Mucus NEGATIVE /LPF Urine Culture Indicated NO Urine Opiates Screen NEGATIVE NEGATIVE Urine Oxycodone Screen NEGATIVE NEGATIVE Urine Methadone Screen NEGATIVE NEGATIVE Urine Propoxyphene Screen NEGATIVE NEGATIVE Urine Barbiturates Screen NEGATIVE NEGATIVE Ur Tricyclic Antidepressants Screen NEGATIVE NEGATIVE Urine Phencyclidine Screen NEGATIVE NEGATIVE Urine Amphetamines Screen POSITIVE H NEGATIVE Urine Methamphetamines Screen POSITIVE H NEGATIVE Urine Benzodiazepines Screen NEGATIVE NEGATIVE Urine Cocaine Screen NEGATIVE NEGATIVE Urine Cannabinoids Screen NEGATIVE NEGATIVE Serum Alcohol < 10 <10 MG/DL Test 09/01/17 06:07 09/01/17 10:59 Range/Units Glucometer 275 H 257 H 70-110 MG/DL Radiology Right foot x-ray: IMPRESSION: Postsurgical changes. There are some erosive changes of the distal third metatarsal, suspicious for osteomyelitis. Physical Exam-([facility]) Physical Exam Vital Signs VS - Last 72 Hours, by Label 109/01/17 09/01/17 09/01/17 00:10 01:23 01:35 04:03 Temp 97.3 97.8 98.3 Pulse 110 94 98 Resp 18 16 18 B/P (MAP) 114/86 (95) 139/82 (101) Pulse Ox 97 96 96 O2 Delivery Room Air Room Air Room Air Room Air 09/01/17 08:00 Temp 98.8 Pulse 68 Resp 18 B/P (MAP) 116/67 (83) Pulse Ox 96 O2 Delivery Room Air Capillary Refill : Less Than 3 Seconds General Appearance: WD/WN, no apparent distress Respiratory: lungs clear, normal breath sounds Cardiovascular: regular rate, rhythm, no murmur Peripheral Pulses: 1+ Dorsalis Pedis (R), 2+ Left Dors-Pedis (L) Gastrointestinal: normal bowel sounds, non tender, soft Extremities: other (Right foot edematous and with erythema and swelling of third digit with about 1 cm ulceration with yellow slough at third metatarsal head. Left foot with scabbed lesions on plantar surface of third and fourth digits with hammer toes on both feet) Neurologic/Psychiatric: alert Clinical Quality Measures DVT/VTE Risk/Contraindication: Risk Factor Score Per Nursin RFS Level Per Nursing on Admit: 4+=Very High Assessment/Plan Assessment/Plan (1) Cellulitis of foot Status: Acute Assessment & Plan: Vancomycin and zosyn, checking MRI for possible osteomyelitis Wound care consult (2) Non-healing wound Status: Chronic Assessment & Plan: Suspect will need biopsy of lesion on back given chronicity concern for squamous cell carcinoma (3) Diabetes mellitus type 2 with complications Status: Chronic Assessment & Plan: Sliding scale insulin, diabetic diet Qualifiers: Qualified Codes: E11.8 - Type 2 diabetes mellitus with unspecified complications; Z79.4 - [facility] (current) use of insulin (4) Illicit drug use Status: Acute (5) S/P liver transplant Status: Chronic Assessment & Plan: Not taking immunosuppressives for some time, will attempt to contact Hepatology and discuss recommendations RENETTA AGUSTIN MD Sep 01, 2017 11:49 am
[2017-09-01 12:00] VITALS: BP 122/77
[2017-09-01] MEDS ORDERED: IOHEXOL 350 MG/ML 100 ML (OMNIPAQUE 350) VIAL IV ONE (14:00)
--- NOTE | 2017-09-01 14:23 | Diagnostic Imaging Report ---
PROCEDURE: CT abdomen and pelvis with and without contrast. TECHNIQUE: Precontrast acquisitions were acquired through the abdomen and pelvis. Multiple contiguous axial images were obtained through the abdomen and pelvis after the administration of intravenous contrast. INDICATION: Hematuria. COMPARISON: Comparison is made with prior CT from 01/31/2009. FINDINGS: There is interstitial scarring in the right middle lobe and lingula. No discrete liver mass is identified. The gallbladder appears to be surgically absent. The pancreas is unremarkable. There is an ovoid low-density mass in the region of the tail of the pancreas and splenic hilum with curvilinear peripheral calcifications measuring 2.1 x 2.7 cm. 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 No pancreatic ductal dilatation is seen. The spleen is unremarkable. No adrenal mass is identified. No renal calculi are detected. The aorta is nonaneurysmal. There are some varices identified in the left periaortic region. The small and large bowel loops are normal in caliber. There is no ascites. The bladder is unremarkable. No lymphadenopathy is detected. IMPRESSION: 1. Overall stable CT of the abdomen and pelvis. 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 No acute feature is detected. Dictated by: Dictated on workstation # [id number]
[2017-09-01] MEDS: PIPERACILLIN/TAZOBACTAM 4.5 GM/D5W 100 ML IVPB IV SCH ×2 (15:13)
[2017-09-01] MEDS: CATHETER FLUSH 10 ML SYR IV SCH ×2 (15:14→22:43)
[2017-09-01 16:30] VITALS: BP 121/70
[2017-09-01] MEDS ORDERED: GADOBUTROL 10 MMOL/10 ML (GADAVIST) VIAL IV ONE (17:15)
--- NOTE | 2017-09-01 18:21 | Diagnostic Imaging Report ---
PROCEDURE: MRI left lower extremity with and without contrast. TECHNIQUE: Multiplanar, multisequence pre and post contrast-enhanced MRI of the left lower extremity was accomplished. INDICATION: Ulcer on the tip of toes. COMPARISON: None available. FINDINGS: Examination of the toes is limited due to severe hallux valgus causing crossover deformities of the third and fourth toes. Allowing for this, there is abnormal T2 hyperintense marrow signal which enhances and has T1 hypointense marrow replacement in the residual aspect of the third proximal phalanx. Additionally, there is abnormal marrow signal within the tip of the fourth toe that is concerning for osteomyelitis. Surgical changes from partial amputation of the third toe along with distal metatarsal amputation of the second ray. Old healed fracture deformity of the fourth distal metatarsal. There is no abnormal bone marrow signal within the metatarsals to indicate osteomyelitis. Visualized aspects of the osseous midfoot are normal. Fatty atrophy of the intrinsic musculature of the foot is compatible with the patient's known diabetes. No peripheral enhancing fluid collection to indicate drainable abscess. IMPRESSION: 1. Osteomyelitis of the tip of the fourth distal phalanx. 2. Signal abnormality within the residual third proximal phalanx could be due to developing osteomyelitis if there is an adjacent soft tissue ulcer. 3. No drainable soft tissue abscess. Dictated by: Dictated on workstation # [id number]
--- NOTE | 2017-09-01 18:59 | Wound Care Progress Note ---
Subjective Subjective Subjective/Events-last exam The patient is a 66 year old male admitted to [facility] forefoot with diabetic ulcer and findings c/w osteomyelitis of 2nd metatarsal head. The patient has multiple significant co-morbidities and he has taken very poor care of his problems lately. Objective Exam Last Set of Vital Signs Vital Signs Date Time Temp Pulse Resp B/P (MAP) Pulse Ox O2 Delivery O2 Flow Rate FiO2 09/01/17 16:30 97.1 64 16 121/70 (87) 99 Room Air Capillary Refill : Less Than 3 Seconds Results Lab Laboratory Tests 09/01/17 00:15: White Blood Count 4.7, Red Blood Count 4.60, Hemoglobin 13.7, Hematocrit 39L, Mean Corpuscular Volume 85, Mean Corpuscular Hemoglobin 30, Mean Corpuscular Hemoglobin Concent 35, Red Cell Distribution Width 13.2, Platelet Count 371, Mean Platelet Volume 10.2, Neutrophils (%) (Auto) 59, Lymphocytes (%) (Auto) 24 , Monocytes (%) (Auto) 14H, Eosinophils (%) (Auto) 3, Basophils (%) (Auto) 0, Neutrophils # (Auto) 2.8, Lymphocytes # (Auto) 1.1, Monocytes # (Auto) 0.7, Eosinophils # (Auto) 0.1, Basophils # (Auto) 0.0, Erythrocyte Sedimentation Rate 46H, Prothrombin Time 12.8, INR Comment 1.0, Activated Partial Thromboplast Time 29, Sodium Level 136, Potassium Level 3.9, Chloride Level 101 , Carbon Dioxide Level 25, Anion Gap 10, Blood Urea Nitrogen 18, Creatinine 0.80 , Estimat Glomerular Filtration Rate > 60, BUN/Creatinine Ratio 23, Glucose Level 264H, Lactic Acid Level 1.26, Calcium Level 9.2, Magnesium Level 1.6L, Total Bilirubin 0.5, Aspartate Amino Transf (AST/SGOT) 20, Alanine Aminotransferase (ALT/SGPT) 25, Alkaline Phosphatase 137H, C-Reactive Protein High Sensitivity 9.16H, Total Protein 7.8, Albumin 3.4 09/01/17 00:25: Urine Color YELLOW, Urine Clarity CLEAR, Urine pH 6, Urine Specific [place] 1.010L, Urine Protein 1+H, Urine Glucose (UA) 4+H, Urine Ketones NEGATIVE, Urine Nitrite NEGATIVE, Urine Bilirubin NEGATIVE, Urine Urobilinogen NORMAL, Urine Leukocyte Esterase NEGATIVE, Urine RBC (Auto) 4+H, Urine RBC 10-25H, Urine WBC NONE, Urine Squamous Epithelial Cells 5-10, Urine Crystals NONE, Urine Bacteria NEGATIVE, Urine Casts NONE, Urine Mucus NEGATIVE, Urine Culture Indicated NO, Urine Opiates Screen NEGATIVE, Urine Oxycodone Screen NEGATIVE, Urine Methadone Screen NEGATIVE, Urine Propoxyphene Screen NEGATIVE, Urine Barbiturates Screen NEGATIVE, Ur Tricyclic Antidepressants Screen NEGATIVE, Urine Phencyclidine Screen NEGATIVE, Urine Amphetamines Screen POSITIVEH, Urine Methamphetamines Screen POSITIVEH, Urine Benzodiazepines Screen NEGATIVE, Urine Cocaine Screen NEGATIVE, Urine Cannabinoids Screen NEGATIVE 09/01/17 00:35: Serum Alcohol < 10 09/01/17 05:45: White Blood Count 4.2L, Red Blood Count 4.34L, Hemoglobin 12.8L, Hematocrit 37L , Mean Corpuscular Volume 85, Mean Corpuscular Hemoglobin 30, Mean Corpuscular Hemoglobin Concent 35, Red Cell Distribution Width 13.3, Platelet Count 326, Mean Platelet Volume 10.7H, Neutrophils (%) (Auto) 57, Lymphocytes (%) (Auto) 27 , Monocytes (%) (Auto) 13H, Eosinophils (%) (Auto) 3, Basophils (%) (Auto) 1, Neutrophils # (Auto) 2.4, Lymphocytes # (Auto) 1.1, Monocytes # (Auto) 0.5, Eosinophils # (Auto) 0.1, Basophils # (Auto) 0.0, Sodium Level 136, Potassium Level 3.9, Chloride Level 103, Carbon Dioxide Level 23, Anion Gap 10, Blood Urea Nitrogen 19H, Creatinine 0.77, Estimat Glomerular Filtration Rate > 60, BUN /Creatinine Ratio 25, Glucose Level 295H, Calcium Level 8.9, Total Bilirubin 0.4 , Aspartate Amino Transf (AST/SGOT) 25, Alanine Aminotransferase (ALT/SGPT) 25, Alkaline Phosphatase 123, Total Protein 7.1, Albumin 3.1L 09/01/17 06:07: Glucometer 275H 09/01/17 10:59: Glucometer 257H 09/01/17 15:46: Glucometer 275H BETH YBARRA MD Sep 01, 2017 18:59
[2017-09-01] MEDS ORDERED: POVIDONE (BETADINE) 10% SOLN 240 ML BTL TOP SCH (19:00)
--- NOTE | 2017-09-01 19:11 | Diagnostic Imaging Report ---
PROCEDURE: MR imaging right lower extremity with and without contrast. TECHNIQUE: Multiplanar, multisequence pre and post contrast-enhanced MR imaging of the right forefoot was accomplished. INDICATION: Diabetes with foot infection. COMPARISON: Foot radiographs of 09/01/2017 FINDINGS: There are surgical changes from amputation of the first metatarsal and the mid aspect of the second metatarsal. In the plantar soft tissues at the level of the third metatarsal head, there is a dermal wound present. Secondary to the wound, there is spread of infection into the third metatarsal that is characterized by marrow replacement to the proximal one third of the third metatarsal shaft. The third MTP joint is dislocated with proximal migration of the proximal phalanx. Osteomyelitis of the third proximal phalanx is also present. There is no marrow replacement within the fourth or fifth rays to indicate osteomyelitis. There is a small fluid collection at the base of the ulcer likely due to infected sinus tract focal abscess. This collection measures approximately 1.3 x 1.1 cm. However, surrounding this area the plantar soft tissues do not enhance and are concerning for the devitalized soft tissues. Remainder of the soft tissues of the toes and distal forefoot enhance suggestive of cellulitis. IMPRESSION: 1. Osteomyelitis of the second metatarsal that extends proximally to the level of the proximal one third of the metatarsal shaft. There is also osteomyelitis of the third proximal phalanx which is dorsally dislocated. 2. Soft tissue ulcer in the plantar aspect of the foot overlying the third metatarsal head with a small abscess at the base of the ulcer. The soft tissues both medial and lateral to the ulcer do not enhance and are concerning for a small area of devitalized soft tissue. Dictated by: Dictated on workstation # [id number]
[2017-09-01 20:09] VITALS: BP 128/74
[2017-09-02 00:36] VITALS: BP 110/60
[2017-09-02] MEDS: PIPERACILLIN/TAZOBACTAM 4.5 GM/D5W 100 ML IVPB IV SCH ×8 (01:42→22:18)
[2017-09-02 04:04] VITALS: BP 110/68
[2017-09-02 05:48] LABS: BASOPHILS % (AUTO) 1 % (0-10); EOSINOPHILS # (AUTO) 0.2 10^3/uL (0.0-0.3); EOSINOPHILS % (AUTO) 4 % (0-10); HEMATOCRIT 38 % (40-54); HEMOGLOBIN 12.9 G/DL (13.3-17.7); LYMPHOCYTES # (AUTO) 1.4 X 10^3 (1.0-4.0); LYMPHOCYTES % (AUTO) 35 % (12-44); MEAN CORPUSCULAR HEMOGLOBIN 29 PG (25-34); MEAN CORPUSCULAR HGB CONC 34 G/DL (32-36); MEAN CORPUSCULAR VOLUME 86 FL (80-99); MEAN PLATELET VOLUME 10.7 FL (7.4-10.4); MONOCYTES # (AUTO) 0.5 X 10^3 (0.0-1.0); MONOCYTES % (AUTO) 13 % (0-12); NEUTROPHILS # (AUTO) 1.9 X 10^3 (1.8-7.8); NEUTROPHILS % (AUTO) 48 % (42-75); PLATELET COUNT 405 10^3/uL (130-400); RED BLOOD COUNT 4.43 10^6/uL (4.35-5.85); RED CELL DISTRIBUTION WIDTH 13.7 % (10.0-14.5); WHITE BLOOD COUNT 3.9 10^3/uL (4.3-11.0)
[2017-09-02] MEDS: CATHETER FLUSH 10 ML SYR IV SCH ×3 (06:03→22:17)
[2017-09-02] MEDS: inSUlin (REGULAR) HUMAN 1 UNIT/0.01 ML (CHARGE PER UNIT) SC SCH ×4 (06:03→22:17)
[2017-09-02 06:06] LABS: ALANINE AMINOTRANSFERASE 28 U/L (0-55); ALKALINE PHOSPHATASE 110 U/L (40-136); BILIRUBIN,TOTAL 0.4 MG/DL (0.1-1.0); BUN/CREATININE RATIO 17; CALCIUM 8.3 MG/DL (8.5-10.1); CARBON DIOXIDE 26 MMOL/L (21-32); CHLORIDE 105 MMOL/L (98-107); CREATININE SERUM 0.77 MG/DL (0.60-1.30); GFR ESTIMATED > 60; GLUCOSE 253 MG/DL (70-105); MAGNESIUM 1.7 MG/DL (1.8-2.4); POTASSIUM 4.1 MMOL/L (3.6-5.0); SODIUM 139 MMOL/L (135-145); TOTAL PROTEIN 7.1 GM/DL (6.4-8.2)
[2017-09-02 08:00] VITALS: BP 111/71
[2017-09-02] MEDS ORDERED: TROUGH ORDER-PHARMACY XX NR (08:00)
[2017-09-02] MEDS: VANCOMYCIN 1500 MG/NS 500 ML IVPB IV SCH ×4 (09:16→20:19)
[2017-09-02] MEDS ORDERED: MAGNESIUM 1 GM/100 ML IVPB 100 ML IV NR (10:39)
[2017-09-02 12:00] VITALS: BP_SYST 111; BP_SYST 139; BP_DIAS 71; BP_DIAS 84
--- NOTE | 2017-09-02 12:24 | Diagnostic Imaging Report ---
INDICATION: Peripheral arterial disease. IMPRESSION: The ankle-brachial index on the right is 1.21 and on the left is 1.11. Dictated by: Dictated on workstation # [id number]
--- NOTE | 2017-09-02 14:14 | Progress Note (SOAP) ---
Subjective Subjective/Events-last exam Afebrile, no acute events. He reports no concerns. Review of Systems Date Seen by Provider: Sep 02, 2017 Time Seen by Provider: 11:11 Objective Exam Last Set of Vital Signs Vital Signs Date Time Temp Pulse Resp B/P (MAP) Pulse Ox O2 Delivery O2 Flow Rate FiO2 09/02/17 12:00 96.9 71 18 139/84 (102) 97 Room Air Capillary Refill : Less Than 3 Seconds I&O Intake and Output 09/02/17 00:00 Intake Total 1880 ml Output Total 1775 ml Balance 105 ml Intake Oral 1530 ml IV Total 350 ml Output Urine Total 1775 ml # Voids 2 Daily Weight Change No General: Alert, No Acute Distress Lungs: Clear to Auscultation, Normal Air Movement Heart: Regular Rate, No Murmurs Skin: Other (Right foot edematous and with erythema (decreased from yesterday) and swelling of third digit with about 1 cm ulceration with yellow slough at third metatarsal head. Left foot with scabbed lesions on plantar surface of third and fourth digits with hammer toes on both feet) Neuro: Normal Speech Psych/Mental Status: Mental Status NL Results/Procedures Lab Laboratory Tests 09/01/17 15:46: Glucometer 275H 09/01/17 20:54: Glucometer 250H 09/02/17 05:21: Glucometer 238H 09/02/17 05:35: White Blood Count 3.9L, Red Blood Count 4.43, Hemoglobin 12.9L, Hematocrit 38L, Mean Corpuscular Volume 86, Mean Corpuscular Hemoglobin 29, Mean Corpuscular Hemoglobin Concent 34, Red Cell Distribution Width 13.7, Platelet Count 405H, Mean Platelet Volume 10.7H, Neutrophils (%) (Auto) 48, Lymphocytes (%) (Auto) 35 , Monocytes (%) (Auto) 13H, Eosinophils (%) (Auto) 4, Basophils (%) (Auto) 1, Neutrophils # (Auto) 1.9, Lymphocytes # (Auto) 1.4, Monocytes # (Auto) 0.5, Eosinophils # (Auto) 0.2, Basophils # (Auto) 0.0, Sodium Level 139, Potassium Level 4.1, Chloride Level 105, Carbon Dioxide Level 26, Anion Gap 8, Blood Urea Nitrogen 13, Creatinine 0.77, Estimat Glomerular Filtration Rate > 60, BUN/ Creatinine Ratio 17, Glucose Level 253H, Calcium Level 8.3L, Magnesium Level 1.7L, Total Bilirubin 0.4, Aspartate Amino Transf (AST/SGOT) 27, Alanine Aminotransferase (ALT/SGPT) 28, Alkaline Phosphatase 110, Total Protein 7.1, Albumin 3.0L 09/02/17 08:12: Vancomycin Level Trough 14.3 09/02/17 11:21: Glucometer 225H Radiology Right foot x-ray: IMPRESSION: Postsurgical changes. There are some erosive changes of the distal third metatarsal, suspicious for osteomyelitis. MRI left foot 09/01/17: IMPRESSION: 1. Osteomyelitis of the tip of the fourth distal phalanx. 2. Signal abnormality within the residual third proximal phalanx could be due to developing osteomyelitis if there is an adjacent soft tissue ulcer. 3. No drainable soft tissue abscess. MRI right foot 09/01/17: IMPRESSION: 1. Osteomyelitis of the second metatarsal that extends proximally to the level of the proximal one third of the metatarsal shaft. There is also osteomyelitis of the third proximal phalanx which is dorsally dislocated. 2. Soft tissue ulcer in the plantar aspect of the foot overlying the third metatarsal head with a small abscess at the base of the ulcer. The soft tissues both medial and lateral to the ulcer do not enhance and are concerning for a small area of devitalized soft tissue. CT abdomen/pelvis 09/01/17: IMPRESSION: 1. Overall stable CT of the abdomen and pelvis. 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 No acute feature is detected. Assessment/Plan Assessment/Plan (1) Cellulitis of foot Status: Acute Assessment & Plan: Vancomycin and zosyn, improving Wound care consult (2) Non-healing wound Status: Chronic Assessment & Plan: Suspect will need biopsy of lesion on back given chronicity concern for squamous cell carcinoma (3) Diabetes mellitus type 2 with complications Status: Chronic Assessment & Plan: Sliding scale insulin, diabetic diet Qualifiers: Qualified Codes: E11.8 - Type 2 diabetes mellitus with unspecified complications; Z79.4 - care home (current) use of insulin (4) Illicit drug use Status: Acute Assessment & Plan: Checking vascular supply of legs, continue zosyn and vancomycin (5) S/P liver transplant Status: Chronic Assessment & Plan: Not taking immunosuppressives for some time, will attempt to contact Hepatology and discuss recommendations (6) Osteomyelitis of right foot Status: Acute Assessment & Plan: Checking vascular supply of legs, continue zosyn and vancomycin (7) Osteomyelitis of toe of left foot Assessment & Plan: Checking vascular supply of legs, continue zosyn and vancomycin (8) Hematuria Status: Acute Assessment & Plan: CT abdomen with no acute findings, discussed with patient likely need for cystoscopy outpatient (9) At risk for deep venous thrombosis Status: Acute Assessment & Plan: Enoxaparin Clinical Quality Measures DVT/VTE Risk/Contraindication: Risk Factor Score Per Nursin RFS Level Per Nursing on Admit: 4+=Very High RENETTA AGUSTIN MD Sep 02, 2017 2:14 pm
[2017-09-02] MEDS: ENOXAPARIN 40 MG/0.4 ML (LOVENOX) SYR SC SCH (15:01)
[2017-09-02 16:00] VITALS: BP 139/85
[2017-09-02] MEDS ORDERED: methylPREDNISolone 40 MG/ML (Solu-MEDROL) VIAL ONE (17:07)
[2017-09-02 19:47] VITALS: BP 129/78
--- NOTE | 2017-09-02 21:17 | Wound Care Progress Note ---
Subjective Subjective Subjective/Events-last exam 66 year old male with infection of R foot, MRI showing extensive osteomyelitis of R 2nd metatarsal bone and an abscess underlying the ulcer of 2nd metatarsal head. Peripheral arterial evaluation demonstrates adequate perfusion. Dr. Edwards is consulted for surgical evaluation. Objective Exam Last Set of Vital Signs Vital Signs Date Time Temp Pulse Resp B/P (MAP) Pulse Ox O2 Delivery O2 Flow Rate FiO2 09/02/17 19:47 98.0 68 18 129/78 (95) 100 Room Air Capillary Refill : Less Than 3 SecondsLess Than 3 Seconds I&O Intake and Output 09/02/17 00:00 Intake Total 1880 ml Output Total 1775 ml Balance 105 ml Intake Oral 1530 ml IV Total 350 ml Output Urine Total 1775 ml # Voids 2 Daily Weight Change No Results Lab Laboratory Tests 09/01/17 20:54: Glucometer 250H 09/02/17 05:21: Glucometer 238H 09/02/17 05:35: White Blood Count 3.9L, Red Blood Count 4.43, Hemoglobin 12.9L, Hematocrit 38L, Mean Corpuscular Volume 86, Mean Corpuscular Hemoglobin 29, Mean Corpuscular Hemoglobin Concent 34, Red Cell Distribution Width 13.7, Platelet Count 405H, Mean Platelet Volume 10.7H, Neutrophils (%) (Auto) 48, Lymphocytes (%) (Auto) 35 , Monocytes (%) (Auto) 13H, Eosinophils (%) (Auto) 4, Basophils (%) (Auto) 1, Neutrophils # (Auto) 1.9, Lymphocytes # (Auto) 1.4, Monocytes # (Auto) 0.5, Eosinophils # (Auto) 0.2, Basophils # (Auto) 0.0, Sodium Level 139, Potassium Level 4.1, Chloride Level 105, Carbon Dioxide Level 26, Anion Gap 8, Blood Urea Nitrogen 13, Creatinine 0.77, Estimat Glomerular Filtration Rate > 60, BUN/ Creatinine Ratio 17, Glucose Level 253H, Calcium Level 8.3L, Magnesium Level 1.7L, Total Bilirubin 0.4, Aspartate Amino Transf (AST/SGOT) 27, Alanine Aminotransferase (ALT/SGPT) 28, Alkaline Phosphatase 110, Total Protein 7.1, Albumin 3.0L 09/02/17 08:12: Vancomycin Level Trough 14.3 09/02/17 11:21: Glucometer 225H 09/02/17 16:18: Glucometer 257H Microbiology 09/01/17 Blood Culture - Preliminary, Resulted No growth BETH YBARRA MD Sep 02, 2017 21:17
[2017-09-03 00:23] VITALS: BP 131/79
[2017-09-03 03:52] VITALS: BP 122/80
[2017-09-03] MEDS: PIPERACILLIN/TAZOBACTAM 4.5 GM/D5W 100 ML IVPB IV SCH ×6 (06:19→22:50)
[2017-09-03] MEDS: inSUlin (REGULAR) HUMAN 1 UNIT/0.01 ML (CHARGE PER UNIT) SC SCH ×4 (06:19→20:39)
[2017-09-03] MEDS: CATHETER FLUSH 10 ML SYR IV SCH ×3 (06:20→22:47)
[2017-09-03 06:23] LABS: HEMOGLOBIN 12.8 G/DL (13.3-17.7); MEAN PLATELET VOLUME 10.8 FL (7.4-10.4); RED BLOOD COUNT 4.42 10^6/uL (4.35-5.85); RED CELL DISTRIBUTION WIDTH 13.7 % (10.0-14.5); WHITE BLOOD COUNT 4.6 10^3/uL (4.3-11.0)
[2017-09-03 06:49] LABS: ALANINE AMINOTRANSFERASE 22 U/L (0-55); ALKALINE PHOSPHATASE 103 U/L (40-136); BILIRUBIN,TOTAL 0.4 MG/DL (0.1-1.0); BUN/CREATININE RATIO 16; CALCIUM 8.8 MG/DL (8.5-10.1); CARBON DIOXIDE 25 MMOL/L (21-32); CHLORIDE 105 MMOL/L (98-107); CREATININE SERUM 0.74 MG/DL (0.60-1.30); GFR ESTIMATED > 60; GLUCOSE 241 MG/DL (70-105); MAGNESIUM 1.7 MG/DL (1.8-2.4); POTASSIUM 3.8 MMOL/L (3.6-5.0); SODIUM 138 MMOL/L (135-145); TOTAL PROTEIN 7.2 GM/DL (6.4-8.2)
[2017-09-03 08:00] VITALS: BP 143/85
--- NOTE | 2017-09-03 08:06 | Podiatry Progress Note ---
Standard Progress Note Progress Notes/Assess & Plan Date Seen by Provider: Sep 03, 2017 Time Seen by Provider: 08:02 Progress/Assessment & Plan Consult dictated. Dx: Osteomyelitis of the right 3rd digit and metatarsal and the left 4th digit. Plan: Discussed and consented for a transmetatarsal amputation of the right foot and a partial amputation of the left 4th digit. The procedure will be in the afternoon of September 04. Final Diagnosis Osteomyelitis bilateral foot. Cellulitis, right foot KENNY RENAE DPM Sep 03, 2017 08:06
[2017-09-03] MEDS: VANCOMYCIN 1500 MG/NS 500 ML IVPB IV SCH ×4 (09:01→20:38)
--- NOTE | 2017-09-03 09:18 | Physician Query Clarification ---
PQ-Further Specificity Admission/Discharge Admission Date: Sep 01, 2017 at 01:00 Discharge Date: The medical record reflects the following clinical scenario: History/Risk Factors: Cellulitis Diabetes type 2 Clinical Findings: Osteomyelitis per lower extremity MRI. Treatment: IV Vancomycin HCI, Piperacillin Sod/Tazobactam Sod with transmetatarsal amputation and partial amputation planned. Question: Can you further specify Osteomyelitis per the clinical indicators above? Please document below. 1. Acute osteomyelitis. 2. Chronic osteomyelitis. 3. Other, with explanation of the clinical findings. 4. Clinically undetermined, no explanation for the clinical findings. PHYSICIAN RESPONSE Can you specify per above: 1 In responding to this query, please exercise your independent professional judgment. The purpose of this communication is to more accurately reflect the complexity of your patients condition. The fact that a question is asked does not imply that any particular answer is desired or expected. Thank you for your timely response to this clarification. Requestors name: Alyson Lamb [facility] Phone # ext [phone] or [phone] THIS PHYSICIAN QUERY FORM IS A PERMANENT PART OF THE MEDICAL RECORD ALYSON LAMB Sep 03, 2017 09:18 RENETTA AGUSTIN MD Sep 03, 2017 09:40
--- NOTE | 2017-09-03 11:20 | CONSULTATION REPORT ---
DATE OF SERVICE: 09/03/2017 REASON FOR CONSULTATION: Diabetic foot care. HISTORY OF PRESENT ILLNESS: This 67-year-old male was admitted through the ER with chills and overall malaise. He indicated he has had a nonhealing wound on the right foot for about a month. There was a callus that he scraped off and then found some purulent discharge laced. The patient is not wearing diabetic type shoes. He has had multiple amputations of toes in the past. PAST MEDICAL HISTORY: Includes liver transplant, hepatitis C, type 2 diabetes. PAST SURGICAL HISTORY: Include amputation of the right first and second rays to the diaphysis of the metatarsals, amputation of the second and third digits, left foot and appendectomy. SOCIAL HISTORY: He has a history of meth, cocaine and marijuana use. He is a former smoker. CURRENT MEDICATIONS: Listed on the patient's chart. ALLERGIES: He has no known drug allergies. LABORATORY DATA: X-rays were reviewed today. They were taken on 09/01/2017, which indicate significant osteolysis of the head of the right third metatarsal and base of the right third digit. There is an amputation to the proximal first metatarsal and mid diaphysis of the second metatarsal right foot. Contracted toes 3, 4 and 5 were noted. The MRI report on the right foot indicates there is 1 osteomyelitis of the second metatarsal that extends proximally to the level of the proximal one-third of the metatarsal shaft. There is also osteomyelitis of the third proximal phalanx, which is dorsally dislocated. There is soft tissue ulcer on the plantar aspect of the foot overlying the third metatarsal head area with a small abscess and ulceration. I believe when the radiologist was talking about the second metatarsal having osteomyelitis to the proximal third, I believe he was talking about the third metatarsal. Also on the MRI of the left foot, there is an indication of osteomyelitis to the tip of the 4th digit. ASSESSMENT: 1. Osteomyelitis of the right 3rd digit and metatarsal with abscess and cellulitis. 2. Osteomyelitis left fourth toe. 3. Diabetic neuropathy, illicit drug use, liver transplant. PLAN: Various treatment options were discussed with the patient. Apparently Dr. Newton has ordered some vascular studies which indicated adequate perfusion for surgical intervention. I discussed various treatment options with the patient and he is agreeable to surgical intervention after risks and complications were discussed at length. He understands that there are no guarantees and that the amputations may not heal appropriately especially with tobacco use. The patient understands that at minimum he needs an amputation of the right third digit and third metatarsal. We discussed the benefits of doing a transmetatarsal amputation and how that might avoid pressure points to his right forefoot. We also discussed an amputation to the distal left fourth digit. Procedure will happen tomorrow afternoon. He will be without food for eight hours prior to the procedure. Job ID: [id number] DocumentID: [id number] Dictated Date: 09/03/2017 08:01:39 Information Assurance Analyst Date: 09/03/2017 11:20:26 Dictated By: KENNY RENAE DPM
[2017-09-03] MEDS ORDERED: MAGNESIUM 1 GM/100 ML IVPB 100 ML IV NR (11:33)
[2017-09-03 12:00] VITALS: BP 136/74
--- NOTE | 2017-09-03 12:38 | Progress Note (SOAP) ---
Subjective Subjective/Events-last exam Afebrile, no acute events. He denies concerns. Review of Systems Date Seen by Provider: Sep 03, 2017 Time Seen by Provider: 10:08 Objective Exam Last Set of Vital Signs Vital Signs Date Time Temp Pulse Resp B/P (MAP) Pulse Ox O2 Delivery O2 Flow Rate FiO2 09/03/17 09:42 Room Air 09/03/17 08:00 97.1 66 20 143/85 (104) 98 Capillary Refill : Less Than 3 SecondsLess Than 3 Seconds I&O Intake and Output 09/03/17 00:00 Intake Total 3750 ml Output Total 1675 ml Balance 2075 ml Intake Oral 2420 ml IV Total 1330 ml Output Urine Total 1675 ml General: Alert, No Acute Distress Lungs: Clear to Auscultation, Normal Air Movement Heart: Regular Rate, No Murmurs Neuro: Normal Speech Psych/Mental Status: Mental Status NL Results/Procedures Lab Laboratory Tests 09/02/17 16:18: Glucometer 257H 09/02/17 20:58: Glucometer 257H 09/03/17 05:11: Glucometer 211H 09/03/17 05:50: White Blood Count 4.6, Red Blood Count 4.42, Hemoglobin 12.8L, Hematocrit 38L, Mean Corpuscular Volume 86, Mean Corpuscular Hemoglobin 29, Mean Corpuscular Hemoglobin Concent 34, Red Cell Distribution Width 13.7, Platelet Count 449H, Mean Platelet Volume 10.8H, Sodium Level 138, Potassium Level 3.8, Chloride Level 105, Carbon Dioxide Level 25, Anion Gap 8, Blood Urea Nitrogen 12, Creatinine 0.74, Estimat Glomerular Filtration Rate > 60, BUN/Creatinine Ratio 16, Glucose Level 241H, Calcium Level 8.8, Magnesium Level 1.7L, Total Bilirubin 0.4, Aspartate Amino Transf (AST/SGOT) 21, Alanine Aminotransferase ( ALT/SGPT) 22, Alkaline Phosphatase 103, Total Protein 7.2, Albumin 3.0L 09/03/17 10:53: Glucometer 290H Microbiology 09/01/17 Blood Culture - Preliminary, Resulted No growth Radiology Right foot x-ray: IMPRESSION: Postsurgical changes. There are some erosive changes of the distal third metatarsal, suspicious for osteomyelitis. MRI left foot 09/01/17: IMPRESSION: 1. Osteomyelitis of the tip of the fourth distal phalanx. 2. Signal abnormality within the residual third proximal phalanx could be due to developing osteomyelitis if there is an adjacent soft tissue ulcer. 3. No drainable soft tissue abscess. MRI right foot 09/01/17: IMPRESSION: 1. Osteomyelitis of the second metatarsal that extends proximally to the level of the proximal one third of the metatarsal shaft. There is also osteomyelitis of the third proximal phalanx which is dorsally dislocated. 2. Soft tissue ulcer in the plantar aspect of the foot overlying the third metatarsal head with a small abscess at the base of the ulcer. The soft tissues both medial and lateral to the ulcer do not enhance and are concerning for a small area of devitalized soft tissue. CT abdomen/pelvis 09/01/17: IMPRESSION: 1. Overall stable CT of the abdomen and pelvis. 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 No acute feature is detected. 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 (4) Illicit drug use Status: Acute (5) S/P liver transplant Status: Chronic (6) Osteomyelitis of right foot Status: Acute Assessment & Plan: Checking vascular supply of legs, continue zosyn and vancomycin 2/1 KARLO normal, Podiatry consult, plan for amputation tomorrow (7) Osteomyelitis of toe of left foot Assessment & Plan: Checking vascular supply of legs, continue zosyn and vancomycin 2/1 KARLO normal, Podiatry consult, plan for amputation (8) Hematuria Status: Acute Assessment & Plan: CT abdomen with no acute findings, discussed with patient likely need for cystoscopy outpatient (9) At risk for deep venous thrombosis Status: Acute Assessment & Plan: Enoxaparin Clinical Quality Measures DVT/VTE Risk/Contraindication: Risk Factor Score Per Nursin RFS Level Per Nursing on Admit: 4+=Very High RENETTA AGUSTIN MD Sep 03, 2017 12:37 pm
[2017-09-03] MEDS: ENOXAPARIN 40 MG/0.4 ML (LOVENOX) SYR SC SCH (15:05)
[2017-09-03 15:50] VITALS: BP 142/81
[2017-09-03 20:15] VITALS: BP 130/77
[2017-09-04] VITALS: BP 137/61
[2017-09-04 04:00] VITALS: BP 122/69
[2017-09-04] MEDS: inSUlin (REGULAR) HUMAN 1 UNIT/0.01 ML (CHARGE PER UNIT) SC SCH ×5 (05:19→20:59)
[2017-09-04] MEDS: CATHETER FLUSH 10 ML SYR IV SCH ×3 (06:21→21:03)
[2017-09-04] MEDS: PIPERACILLIN/TAZOBACTAM 4.5 GM/D5W 100 ML IVPB IV SCH ×6 (06:21→22:30)
[2017-09-04 07:06] LABS: HEMOGLOBIN 13.9 G/DL (13.3-17.7); MEAN PLATELET VOLUME 10.8 FL (7.4-10.4); RED BLOOD COUNT 4.71 10^6/uL (4.35-5.85); RED CELL DISTRIBUTION WIDTH 13.8 % (10.0-14.5); WHITE BLOOD COUNT 4.8 10^3/uL (4.3-11.0)
[2017-09-04 07:23] LABS: BUN/CREATININE RATIO 16; CALCIUM 9.1 MG/DL (8.5-10.1); CARBON DIOXIDE 23 MMOL/L (21-32); CHLORIDE 104 MMOL/L (98-107); CREATININE SERUM 0.77 MG/DL (0.60-1.30); GFR ESTIMATED > 60; GLUCOSE 258 MG/DL (70-105); MAGNESIUM 1.8 MG/DL (1.8-2.4); SODIUM 138 MMOL/L (135-145)
[2017-09-04 08:00] VITALS: BP 131/79
[2017-09-04 08:08] LABS: PROTHROMBIN TIME PATIENT 13.6 SEC (12.2-14.7)
[2017-09-04] MEDS ORDERED: LACTATED RINGERS 1,000 ML IV PRN ×2 (08:31→12:24)
[2017-09-04] MEDS: VANCOMYCIN 1500 MG/NS 500 ML IVPB IV SCH ×4 (09:26→20:36)
[2017-09-04 09:50] LABS: AMPHETAMINE SCREEN, URINE NEGATIVE (NEGATIVE); BARBITURATE SCREEN URINE NEGATIVE (NEGATIVE); BENZODIAZEPINES SCREEN URINE NEGATIVE (NEGATIVE); CANNABINOID SCREEN, URINE NEGATIVE (NEGATIVE); COCAINE SCREEN URINE NEGATIVE (NEGATIVE); METHADONE STAT NEGATIVE (NEGATIVE); METHAMPHETAMINE SCREEN URINE S NEGATIVE (NEGATIVE); OPIATE SCREEN URINE NEGATIVE (NEGATIVE); OXYCODONE STAT NEGATIVE (NEGATIVE); PROPOXYPHENE STAT NEGATIVE (NEGATIVE); TRICYCLIC ANTIDEPRESSANTS SCRE NEGATIVE (NEGATIVE)
[2017-09-04] MEDS ORDERED: BUPIVACAINE 0.5% 30 ML (SENSORCAINE) VIAL ONE (11:59)
[2017-09-04] MEDS ORDERED: LIDOCAINE 1% INJ 20 ML (XYLOCAINE) VIAL ONE (11:59)
[2017-09-04 12:00] VITALS: BP 135/63
[2017-09-04] MEDS ORDERED: proPOfol 200 MG/20 ML (DIPRIVAN) VIAL IV ONE (12:15)
[2017-09-04] MEDS ORDERED: SEVOFLURANE (ULTANE) 15 ML INHAL SOLN ONE ×2 (12:15→14:24)
[2017-09-04] MEDS ORDERED: ONDANSETRON 4 MG/2 ML (SDV) Z0FRAN ONE (12:15)
[2017-09-04] MEDS ORDERED: fentaNYL INJECTION 100 MCG/2 ML AMP ONE (12:15)
[2017-09-04] MEDS ORDERED: LIDOCAINE PF 2% 5 ML (XYLOCAINE) VIAL ONE (12:16)
[2017-09-04] MEDS ORDERED: MIDAZOLAM 2 MG/2 ML (VERSED) VIAL ONE (12:16)
--- NOTE | 2017-09-04 12:18 | Progress Note (SOAP) ---
Subjective Subjective/Events-last exam Afebrile, no acute events, denies concerns. Plan for surgery this pm. Review of Systems Date Seen by Provider: Sep 04, 2017 Time Seen by Provider: 10:12 Objective Exam Last Set of Vital Signs Vital Signs Date Time Temp Pulse Resp B/P (MAP) Pulse Ox O2 Delivery O2 Flow Rate FiO2 09/04/17 12:00 98.0 78 20 135/63 (87) 97 Room Air Capillary Refill : Less Than 3 SecondsLess Than 3 Seconds I&O Intake and Output 09/04/17 00:00 Intake Total 2786.5 ml Output Total 2975 ml Balance -188.5 ml Intake Oral 1714 ml IV Total 1072.5 ml Output Urine Total 2975 ml # Bowel Movements 1 General: Alert, No Acute Distress Lungs: Clear to Auscultation, Normal Air Movement Heart: Regular Rate, No Murmurs Neuro: Normal Speech Psych/Mental Status: Mental Status NL Results/Procedures Lab Laboratory Tests 09/03/17 15:50: Glucometer 250H 09/03/17 20:06: Glucometer 209H 09/04/17 06:05: Glucometer 260H 09/04/17 06:20: White Blood Count 4.8, Red Blood Count 4.71, Hemoglobin 13.9, Hematocrit 41, Mean Corpuscular Volume 86, Mean Corpuscular Hemoglobin 30, Mean Corpuscular Hemoglobin Concent 34, Red Cell Distribution Width 13.8, Platelet Count 486H, Mean Platelet Volume 10.8H, Prothrombin Time 13.6, INR Comment 1.0, Sodium Level 138, Potassium Level 4.0, Chloride Level 104, Carbon Dioxide Level 23, Anion Gap 11, Blood Urea Nitrogen 12, Creatinine 0.77, Estimat Glomerular Filtration Rate > 60, BUN/Creatinine Ratio 16, Glucose Level 258H, Calcium Level 9.1, Magnesium Level 1.8 09/04/17 09:30: Urine Opiates Screen NEGATIVE, Urine Oxycodone Screen NEGATIVE, Urine Methadone Screen NEGATIVE, Urine Propoxyphene Screen NEGATIVE, Urine Barbiturates Screen NEGATIVE, Ur Tricyclic Antidepressants Screen NEGATIVE, Urine Phencyclidine Screen NEGATIVE, Urine Amphetamines Screen NEGATIVE, Urine Methamphetamines Screen NEGATIVE, Urine Benzodiazepines Screen NEGATIVE, Urine Cocaine Screen NEGATIVE, Urine Cannabinoids Screen NEGATIVE 09/04/17 11:44: Glucometer 226H Microbiology 09/01/17 Blood Culture - Preliminary, Resulted No growth Radiology Right foot x-ray: IMPRESSION: Postsurgical changes. There are some erosive changes of the distal third metatarsal, suspicious for osteomyelitis. MRI left foot 09/01/17: IMPRESSION: 1. Osteomyelitis of the tip of the fourth distal phalanx. 2. Signal abnormality within the residual third proximal phalanx could be due to developing osteomyelitis if there is an adjacent soft tissue ulcer. 3. No drainable soft tissue abscess. MRI right foot 09/01/17: IMPRESSION: 1. Osteomyelitis of the second metatarsal that extends proximally to the level of the proximal one third of the metatarsal shaft. There is also osteomyelitis of the third proximal phalanx which is dorsally dislocated. 2. Soft tissue ulcer in the plantar aspect of the foot overlying the third metatarsal head with a small abscess at the base of the ulcer. The soft tissues both medial and lateral to the ulcer do not enhance and are concerning for a small area of devitalized soft tissue. CT abdomen/pelvis 09/01/17: IMPRESSION: 1. Overall stable CT of the abdomen and pelvis. 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 No acute feature is detected. KARLO 09/02/17: right 1.21, left 1.11 Assessment/Plan Assessment/Plan (1) Cellulitis of foot Status: Acute Assessment & Plan: Vancomycin and zosyn, improving Wound care consult (2) Non-healing wound Status: Chronic (3) Diabetes mellitus type 2 with complications Status: Chronic Assessment & Plan: Sliding scale insulin, diabetic diet 2/2 A1c over 11, will start levemir 10 units at bedtime, has been requiring 3-6 units of sliding scale with meals, will re-evaluate to add mealtime dosing in next 24 hours Qualifiers: Qualified Codes: E11.8 - Type 2 diabetes mellitus with unspecified complications (4) Illicit drug use Status: Acute (5) S/P liver transplant Status: Chronic Assessment & Plan: 2/2 Confirmed with him today that he had transplant at , no records were available in clinic, called Hepatology and spoke to nurse who reported he has not been seen since 2009 and they had been unable to reach him after his last visit. Last visit so long ago that they can't tell what dose/ medications he was on and he will need to have new referral to re-establish which is recommended. (6) Osteomyelitis of right foot Status: Acute Assessment & Plan: Checking vascular supply of legs, continue zosyn and vancomycin 2/1 KARLO normal, Podiatry consult, plan for amputation tomorrow (7) Osteomyelitis of toe of left foot Assessment & Plan: Checking vascular supply of legs, continue zosyn and vancomycin 2/1 KARLO normal, Podiatry consult, plan for amputation (8) Hematuria Status: Acute Assessment & Plan: CT abdomen with no acute findings, discussed with patient likely need for cystoscopy outpatient (9) At risk for deep venous thrombosis Status: Acute Assessment & Plan: Enoxaparin Clinical Quality Measures DVT/VTE Risk/Contraindication: Risk Factor Score Per Nursin RFS Level Per Nursing on Admit: 4+=Very High RENETTA AGUSTIN MD Sep 04, 2017 12:18 pm
--- NOTE | 2017-09-04 12:41 | Progress Note-Pre Operative ---
Pre-Operative Progress Note H&P Reviewed The H&P was reviewed, patient examined and no changes noted. Date Seen by Provider: Sep 04, 2017 Time Seen by Provider: 12:40 Date H&P Reviewed: Sep 04, 2017 Time H&P Reviewed: 12:40 Pre-Operative Diagnosis: Osteomyelitis right 3rd metatarsal and toe, left 4th toe KENNY RENAE DPM Sep 04, 2017 12:41
[2017-09-04] MEDS ORDERED: VANCOMYCIN 1000 MG/VIAL ONE (13:51)
[2017-09-04] MEDS ORDERED: HYDROmorphone (DILAUDID) 2 MG/ML VIAL ONE (13:56)
[2017-09-04] MEDS ORDERED: morphine INJ 10 MG/ML 1ML (SYR OR VIAL) ONE (13:57)
[2017-09-04] MEDS: ENOXAPARIN 40 MG/0.4 ML (LOVENOX) SYR SC SCH (14:21)
--- NOTE | 2017-09-04 14:25 | Progress Note-Post Operative ---
Post-Operative Progess Note Surgeon (s)/Felt Washing Machine Tender (s) Surgeon KENNY RENAE DPM Felt Washing Machine Tender: none Pre-Operative Diagnosis Osteomyelitis right 3rd metatarsal and toe, left 4th toe Post-Operative Diagnosis same Procedure & Operative Findings Date of Procedure 09/04/17 Procedure Performed/Findings Transmetatarsal amputation right foot, Partial amputation of the left 4th toe Anesthesia Type General Estimated Blood Loss Estimated blood loss (mL): minimal Specimens/Packing Specimens Removed Right forefoot, distal left 4th toe Packing: [place] drainKENNY Monk DPM Sep 04, 2017 14:25
[2017-09-04] MEDS ORDERED: ONDANSETRON 4 MG/2 ML (SDV) Z0FRAN IVP PRN (14:45)
[2017-09-04] MEDS ORDERED: HYDROmorphone (DILAUDID) 2 MG/ML VIAL IVP PRN (14:45)
[2017-09-04] MEDS: morphine INJ 10 MG/ML 1ML (SYR OR VIAL) IVP PRN ×2 (14:48→14:58)
--- NOTE | 2017-09-04 15:20 | Diagnostic Imaging Report ---
INDICATION: Postop bilateral feet. TIME OF EXAM: 2:57 p.m. COMPARISON: Correlation is made with prior right foot on 09/01/2017 and left foot on 03/17/2014. FINDINGS: Left foot demonstrates amputation of the second toe and the distal aspect of the second metatarsal. There has been amputation of the majority of the third toe with a small portion of the proximal phalanges remaining. Resection margins appear to be fairly smooth. There is an old healed fracture of the distal fourth metatarsal. The midfoot and hindfoot are unremarkable apart from a plantar calcaneal spur. No bony destructive changes are seen. There is a bunion deformity noted. Images of the right foot demonstrate recent performance of amputation of the third to fifth phalanges as well as distal one-half of the third through fifth metatarsals. Resection margins appear to be fairly smooth. Prior amputation of the first and second toes and majority of the first and second metatarsals is seen with smooth resection margins. There is a small amount of gas noted within the soft tissues at the stump, likely postoperative. There is a surgical drain overlying the surgical site. The midfoot and hindfoot are unremarkable. IMPRESSION: Postsurgical changes bilaterally, as described. Dictated by: Dictated on workstation # [id number]
--- NOTE | 2017-09-04 16:00 | Physical Therapy Evaluation ---
PT Evaluation-General Medical Diagnosis Admission Date Sep 01, 2017 at 01:00 Medical Diagnosis: cellulitis bilateral feet Onset Date: Aug 30, 2017 Therapy Diagnosis Therapy Diagnosis: generalized weakness/debility Height/Weight Height (Feet): 6 Height (Inches): 0.00 Weight (Pounds): 210 Weight (Ounces): 8.0 Precautions Precautions/Isolations: Fall Prevention, Standard Precautions Weight Bear Status Right Lower Extremity: Right Non Weight Bearing Left Lower Extremity: Left Partial Weight Bearing Referral Physician: Grace Reason for Referral: Evaluation/Treatment Medical History Pertinent Medical History: Alcoholism, CAD, DM, Neuropathy, Smoking Additional Medical History illicit drug use Current History EMS - patient had plastic bags over bilateral feet and per report, the house was "filthy" Reviewed History: Yes Social History Home: Single Level Current Living Status: Alone Entry Into Home: Level Entry Prior/Core FIM Prior Level of Function Functional [place] Measure 0=Not Assessed/NA 4=Minimal Assistance 1=Total Assistance 5=Supervision or Setup 2=Maximal Assistance 6=Modified [place] 3=Moderate Assistance 7=Complete [place] Bed Mobility: 6 Transfers (B,C,W/C) (FIM): 6 Gait: 6 ambulates with cane PT Evaluation-Current Subjective Patient just returned from surgery and agrees to PT. Pain Numeric Pain Scale: 0-No Pain Location: No Pain Reported Objective Patient Orientation: Normal For Age Problem Solving: Good Attachments: IV ROM/Strength ROM Lower Extremities bilateral LE WNL (feet NT) Strength Lower Extremities bilateral LE 4-/5 grossly (feet NT) Integumentary/Posture Integumentary refer to nursing notes Bowel Incontinence: No Bladder Incontinence: No Posture WFL Neuromuscular (Tone, Coordination, Reflexes) grossly intact Sensory Vision: Functional Hearing: Functional Sensation Right Lower Extremit: Impaired Sensation Left Lower Extremity: Impaired Transfers Functional [place] Measure 0=Not Assessed/NA 4=Minimal Assistance 1=Total Assistance 5=Supervision or Setup 2=Maximal Assistance 6=Modified [place] 3=Moderate Assistance 7=Complete [place] Transfers (B, C, W/C) (FIM): 5 Scootin Rollin Supine to/from Sit: 5 Gait Anticipated Mode of Locomotion: Wheelchair (due to weight bearing status) Balance Sitting Static: Normal Sitting Dynamic: Normal Assessment/Needs 66 y.o. male, will benefit from skilled PT to address transfer training secondary to PWB left LE and NWB right LE. Patient present with adequate MMT, however, weight bearing status is limiting factor. Rehab Potential: Guarded Post Rehab Potential-Barriers: compliance PT Half-Way Goals Electronic Assembly Goals PT Half-Way Goals Time Frame: Sep 11, 2017 Transfers (B,C,W/C) (FIM): 6 Wheelchair (FIM): 6 Wheelchair distance (FIM): 3=150 ft Wheelchair Level of Assist: 6 PT Plan Problem List Problem List: Safety, Transfer Treatment/Plan Treatment Plan: Continue Plan of Care Treatment Plan: Education, Functional Activity Samuel, Functional Strength, Gait , Safety, Therapeutic Exercise, Transfers Treatment Duration: Sep 11, 2017 Frequency: 11 times per week Estimated Hrs Per Day: .5 hour per day Patient and/or Family Agrees t: Yes Safety Risks/Education Patient Education: Transfer Techniques, Safety Issues Teaching Recipient: Patient Teaching Methods: Discussion Response to Teaching: Verbalize Understanding Discharge Recommendations Equpiment Recommendations-D/C: Manual Wheelchair Time/GCodes Time In: 1530 Time Out: 1545 Total Billed Treatment Time: 15 [facility] Sep 04, 2017 16:00
[2017-09-04 16:35] VITALS: BP 106/62
[2017-09-04] MEDS ORDERED: HYDROmorphone PF INJECTION 10 MG in NS (IVPB) 50 ML IV PRN (18:15)
[2017-09-04] MEDS: LACTATED RINGERS 1,000 ML IV SCH ×2 (18:26→22:30)
[2017-09-04] MEDS: HYDROmorphone (DILAUDID) 2 MG/ML VIAL IVP NR ×2 (18:27→19:09)
[2017-09-04 20:00] VITALS: BP 139/73
[2017-09-04] MEDS: inSUlin DETERMIR 1 UNIT/0.01 ML (LEVEMIR) CHARGE PER UNIT SQ SCH (21:02)
[2017-09-05] VITALS: BP 126/71
--- NOTE | 2017-09-05 00:09 | OPERATIVE REPORT ---
DATE OF SERVICE: 09/04/2017 SURGEON: Kenny Renae DPM. PREOPERATIVE DIAGNOSES: 1. Osteomyelitis of the right 3rd metatarsal and third digit. 2. Osteomyelitis, distal phalanx of left fourth toe. POSTOPERATIVE DIAGNOSES: 1. Osteomyelitis of the right 3rd metatarsal and third digit. 2. Osteomyelitis, distal phalanx of left fourth toe. PROCEDURES: 1. Transmetatarsal amputation, right foot. 2. Partial amputation, left fourth digit. WOUND CLASS: Contaminated. ANESTHESIA: General. HEMOSTASIS: Pneumatic ankle tourniquet at 250 mmHg on the left 250 mmHg on the right thigh tourniquet. PROCEDURE IN DETAIL: The patient was admitted to the hospital after a chronic ulceration of the right forefoot. He had systemic symptoms and was admitted after passing through the Emergency Department. The patient was diagnosed with cellulitis of the right foot. An MRI indicated osteomyelitis of the distal 2/3 of the right third metatarsal as well as the base of the proximal phalanx. The patient has already had an amputation of the first and second digits and the metatarsals. The patient understands if he had just the third metatarsal ray resected that it is likely that the fourth and fifth digits would soon be a pressure point and complication. Therefore, he opted to have a transmetatarsal amputation. He also is agreeable to a partial amputation of the left 4th digit due to MRI findings consistent with osteomyelitis and a chronic wound in this area. No guarantees were extended. The patient is willing to proceed. He understands there is a risk of continued infection, continued complications such as loss of limb or life and he is willing to proceed. The patient was brought back to the operating table, placed in secure supine position. A general anesthetic was then induced. Appropriate timeout was performed. Pneumatic ankle tourniquet was placed on the left lower extremity and a Pneumatic thigh tourniquet placed on the right lower extremity over several layers of padding. The feet were then prepped and draped in normal sterile manner. The left foot was then elevated and allowed to exsanguinate after which the tourniquet was inflated to 250 mmHg. Attention was then directed to the left fourth toe where two curvilinear incisions were created beginning at the lateral aspect of the distal interphalangeal joint extending dorsally. The second incision was extended from the same beginning spot distally creating a plantar flap. The distal phalanx was disarticulated and sent for gross and microscopic evaluation. The wound was flushed with copious amounts of normal saline. No abscess was identified. At this point, the tourniquet was released noting appropriate cap refill time to the plantar flap. The wound was flushed once again after which closure was performed. The skin was coapted with 4-0 Prolene in a simple interrupted type stitch with proper cap refill time noted. Postoperative dressing consisted of Betadine soaked Adaptic, sterile 4 x 4, sterile Kerlix. Attention was then directed to the right foot where it was elevated and exsanguinated. The tourniquet was inflated to 250 mmHg. Two semi-curvilinear incisions were created to the right forefoot extending from the medial aspect of the remaining first metatarsal extending dorsally to the proximal fifth metatarsal base. The incisions were deepened in the same plane down to bone. A second incision was created from the same starting point to just proximal to the sulcus area creating a plantar flap. Utilizing a power sagittal saw, there is an osteotomy performed at the proximal portion of the metatarsal diaphysis to the fifth, fourth and third metatarsals. The digits were then disarticulated and sharply resected. Inspection of the left plantar third metatarsal phalangeal joint revealed an abscess in this area and significant degeneration to the osseous components of the third metatarsophalangeal joint. A rongeur was used to take a sample of this area and was sent for gross microscopic evaluation as well as culture and sensitivities. The remaining forefoot was also sent for gross and microscopic evaluation. The flexor and extensor tendons were resected as proximal as possible. No other abscess was identified. The site of the previous chronic ulceration was also excised in a V type incision. This allowed for appropriate plantar flap articulation to each other into the dorsal aspect of the incision of the transmetatarsal amputation. The skin flap came up without any skin tension. The wound was flushed with copious amounts of normal saline with a power varnish finisher with 3 liters of fluid infused with 1 gram of vancomycin. The tourniquet was released and there were no active bleeders. The plantar flap remained viable with capillary refill time approximately three seconds. A swab culture was taken prior to closure. A quarter inch Manuel drain was fenestrated and allowed to lay on the plantar portion of the incision and a stab incision to the lateral aspect of the foot was created. The skin was then coapted with 4-0 Prolene in a simple interrupted type stitch. Postoperative injection consisted of 17 mL of 0.5% Marcaine injected in a local infusion to the surgical site. Postoperative dressing consisted of Betadine soaked Adaptic, sterile 4 x 4, sterile Kerlix all secured with Coban wrap. A Coban wrap was also applied to the left lower extremity. The patient was released from the operating room with vital signs stable and vascular status intact to both feet. The Manuel drain was likely be withdrawn from the foot tomorrow or the next day. We will see the patient back in the office in approximately 1 week time or sooner if necessary. He is to be nonweightbearing on the right lower extremity. Job ID: [id number] DocumentID: [id number] Dictated Date: 09/04/2017 14:43:34 Optical Fabrication Technician Date: 09/05/2017 00:08:50 Dictated By: KENNY RENAE DPM
[2017-09-05 04:00] VITALS: BP 119/75
[2017-09-05] MEDS: LACTATED RINGERS 1,000 ML IV SCH ×3 (04:25→14:49)
[2017-09-05 05:43] LABS: HEMOGLOBIN 12.4 G/DL (13.3-17.7); MEAN PLATELET VOLUME 10.2 FL (7.4-10.4); RED BLOOD COUNT 4.22 10^6/uL (4.35-5.85)
[2017-09-05] MEDS: CATHETER FLUSH 10 ML SYR IV SCH ×4 (05:50→20:11)
[2017-09-05] MEDS: PIPERACILLIN/TAZOBACTAM 4.5 GM/D5W 100 ML IVPB IV SCH ×6 (05:52→21:31)
[2017-09-05 06:32] LABS: ALANINE AMINOTRANSFERASE 33 U/L (0-55); ALBUMIN 3.2 GM/DL (3.2-4.5); ALKALINE PHOSPHATASE 136 U/L (40-136); BILIRUBIN,TOTAL 0.6 MG/DL (0.1-1.0); BUN/CREATININE RATIO 14; CALCIUM 8.4 MG/DL (8.5-10.1); CARBON DIOXIDE 26 MMOL/L (21-32); CHLORIDE 101 MMOL/L (98-107); CREATININE SERUM 0.79 MG/DL (0.60-1.30); GFR ESTIMATED > 60; GLUCOSE 238 MG/DL (70-105); POTASSIUM 4.3 MMOL/L (3.6-5.0); SODIUM 138 MMOL/L (135-145); TOTAL PROTEIN 7.3 GM/DL (6.4-8.2)
[2017-09-05] MEDS: inSUlin (REGULAR) HUMAN 1 UNIT/0.01 ML (CHARGE PER UNIT) SC SCH ×4 (06:39→21:32)
[2017-09-05 08:30] VITALS: BP 138/80
[2017-09-05] MEDS: VANCOMYCIN 1500 MG/NS 500 ML IVPB IV SCH ×4 (08:46→21:31)
--- NOTE | 2017-09-05 09:22 | Progress Note (SOAP) ---
Subjective Subjective/Events-last exam Today the patient reports that he is doing well, other than some nausea. He is currently using a ACCOUNTANT for pain control which was ordered after the patient was sent to the floor from the PACU without any pain medication ordered. He reports he has some discomfort but is doing okay. His nausea is improved after Zofran. Post op day 1 s/p transmetatarsal amputation right foot, partial amputation of the left 4th toe by Dr. Edwards. No acute events overnight, no concerns from nursing staff other than patient is diabetic and was sent back to floor with regular diet ordered. Review of Systems Date Seen by Provider: Sep 05, 2017 Time Seen by Provider: 12:05 General: No Chills, No Night Sweats HEENT: No Head Aches, No Visual Changes, No Eye Pain, No Ear Pain Pulmonary: No Dyspnea, No Cough Cardiovascular: No: Chest Pain, Palpitations Gastrointestinal: Nausea, Vomiting, No: Abdominal Pain Genitourinary: No Hematuria, No Retention Musculoskeletal: foot pain Neurological: No: Change in speech, Confusion, Seizures Objective Exam Last Set of Vital Signs Vital Signs Date Time Temp Pulse Resp B/P (MAP) Pulse Ox O2 Delivery O2 Flow Rate FiO2 09/05/17 04:00 97.0 89 18 119/75 (90) 94 Room Air Capillary Refill : Less Than 3 SecondsLess Than 3 Seconds I&O Intake and Output 09/05/17 00:00 Intake Total 3397 ml Output Total 3100 ml Balance 297 ml Intake Oral 1547 ml IV Total 1850 ml Output Urine Total 3100 ml # Voids 1 General: Alert, Oriented X3, Cooperative, No Acute Distress HEENT: Atraumatic, EOMI, Mucous Memb Moist/[place] Neck: Supple, No Thyromegaly Lungs: Clear to Auscultation, Normal Air Movement Heart: Regular Rate, Normal S1, Normal S2, No Murmurs Abdomen: Normal Bowel Sounds, Soft, No Tenderness, No Masses Extremities: No Cyanosis, Other (bilateral forefeet covered in dressings that are clean, dry and intact) Skin: No Rashes, No Significant Lesion Neuro: Normal Speech, Normal Tone, Sensation Intact, Cranial Nerves 3-12 NL Psych/Mental Status: Mental Status NL, Mood NL Results/Procedures Lab Laboratory Tests 09/04/17 09:30: Urine Opiates Screen NEGATIVE, Urine Oxycodone Screen NEGATIVE, Urine Methadone Screen NEGATIVE, Urine Propoxyphene Screen NEGATIVE, Urine Barbiturates Screen NEGATIVE, Ur Tricyclic Antidepressants Screen NEGATIVE, Urine Phencyclidine Screen NEGATIVE, Urine Amphetamines Screen NEGATIVE, Urine Methamphetamines Screen NEGATIVE, Urine Benzodiazepines Screen NEGATIVE, Urine Cocaine Screen NEGATIVE, Urine Cannabinoids Screen NEGATIVE 09/04/17 11:44: Glucometer 226H 09/04/17 16:26: Glucometer 227H 09/04/17 20:55: Glucometer 184H 09/05/17 05:10: White Blood Count 7.0, Red Blood Count 4.22L, Hemoglobin 12.4L, Hematocrit 37L, Mean Corpuscular Volume 89, Mean Corpuscular Hemoglobin 29, Mean Corpuscular Hemoglobin Concent 33, Red Cell Distribution Width 14.0, Platelet Count 479H, Mean Platelet Volume 10.2, Sodium Level 138, Potassium Level 4.3, Chloride Level 101, Carbon Dioxide Level 26, Anion Gap 11, Blood Urea Nitrogen 11, Creatinine 0.79, Estimat Glomerular Filtration Rate > 60, BUN/Creatinine Ratio 14, Glucose Level 238H, Calcium Level 8.4L, Total Bilirubin 0.6, Aspartate Amino Transf (AST/SGOT) 36H, Alanine Aminotransferase (ALT/SGPT) 33, Alkaline Phosphatase 136, Total Protein 7.3, Albumin 3.2 Microbiology 09/01/17 Blood Culture - Preliminary, Resulted No growth 09/03/17 MRSA Screen - Final, Complete MRSA not isolated 09/04/17 Gram Stain - Final, Resulted 09/04/17 Anaerobic Culture, Resulted Pending 09/04/17 Surgical Culture - Preliminary, Resulted Staphylococcus species Radiology Right foot x-ray: IMPRESSION: Postsurgical changes. There are some erosive changes of the distal third metatarsal, suspicious for osteomyelitis. MRI left foot 09/01/17: IMPRESSION: 1. Osteomyelitis of the tip of the fourth distal phalanx. 2. Signal abnormality within the residual third proximal phalanx could be due to developing osteomyelitis if there is an adjacent soft tissue ulcer. 3. No drainable soft tissue abscess. MRI right foot 09/01/17: IMPRESSION: 1. Osteomyelitis of the second metatarsal that extends proximally to the level of the proximal one third of the metatarsal shaft. There is also osteomyelitis of the third proximal phalanx which is dorsally dislocated. 2. Soft tissue ulcer in the plantar aspect of the foot overlying the third metatarsal head with a small abscess at the base of the ulcer. The soft tissues both medial and lateral to the ulcer do not enhance and are concerning for a small area of devitalized soft tissue. CT abdomen/pelvis 09/01/17: IMPRESSION: 1. Overall stable CT of the abdomen and pelvis. 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 No acute feature is detected. KARLO 09/02/17: right 1.21, left 1.11 Procedures Transmetatarsal amputation right foot, Partial amputation of the left 4th toe by Dr. Edwards Assessment/Plan Assessment/Plan Admission Dx Cellulitis Uncontrolled Diabetes Mellitus (1) Cellulitis of foot Status: Acute Assessment & Plan: Vancomycin and zosyn, improving Wound care consult 2/3 -POD 1 s/p Transmetatarsal amputation right foot, Partial amputation of the left 4th toe by Dr. Edwards for Osteomyelitis -Day 5 Vanc and Zosyn -Continue abx for now -WBC 4.6 --> 4.8 --> 7.0 (2) Non-healing wound Status: Resolved Assessment & Plan: 2/3 -POD 1 s/p Transmetatarsal amputation right foot, partial amputation of the left 4th toe (3) Diabetes mellitus type 2 with complications Status: Chronic Assessment & Plan: Sliding scale insulin, diabetic diet 2/2 A1c over 11, will start levemir 10 units at bedtime, has been requiring 3-6 units of sliding scale with meals, will re-evaluate to add mealtime dosing in next 24 hours 2/3 -is not yet tolerating much PO, but will adjust sliding scale when taking more PO and can more accurately evaluate mealtime insulin requirement Qualifiers: Qualified Codes: E11.8 - Type 2 diabetes mellitus with unspecified complications (4) Illicit drug use Status: Acute (5) S/P liver transplant Status: Chronic Assessment & Plan: 2/2 Confirmed with him today that he had transplant at , no records were available in clinic, called Hepatology and spoke to nurse who reported he has not been seen since 2009 and they had been unable to reach him after his last visit. Last visit so long ago that they can't tell what dose/ medications he was on and he will need to have new referral to re-establish which is recommended. 2/3 -will plan referral after discharge -will hold on restarting anti-rejection medications at this time as pt is POD 1 s/p Transmetatarsal amputation right foot, Partial amputation of the left 4th toe (6) Osteomyelitis of right foot Status: Acute Assessment & Plan: Checking vascular supply of legs, continue zosyn and vancomycin 2/1 KARLO normal, Podiatry consult, plan for amputation tomorrow 2/3 -POD 1 s/p Transmetatarsal amputation right foot, partial amputation of the left 4th toe -Day 5 Vanc and Zosyn (7) Osteomyelitis of toe of left foot Assessment & Plan: Checking vascular supply of legs, continue zosyn and vancomycin 2/1 KARLO normal, Podiatry consult, plan for amputation 2/3 -POD 1 s/p Transmetatarsal amputation right foot, partial amputation of the left 4th toe -Day 5 Vanc and Zosyn (8) Hematuria Status: Acute Assessment & Plan: CT abdomen with no acute findings, discussed with patient likely need for cystoscopy outpatient (9) At risk for deep venous thrombosis Status: Acute Assessment & Plan: Enoxaparin (10) Anemia Status: Acute Assessment & Plan: 2/3 -Hgb 12.8 --> 13.9 --> 12.4 -likely dilutional -recheck in AM Qualifiers: Qualified Codes: D64.89 - Other specified anemias Clinical Quality Measures DVT/VTE Risk/Contraindication: Risk Factor Score Per Nursin RFS Level Per Nursing on Admit: 4+=Very High INA VASQUEZ DO Sep 05, 2017 09:22
[2017-09-05] MEDS ORDERED: ONDANSETRON 4 MG/2 ML (SDV) Z0FRAN IVP PRN (11:00)
--- NOTE | 2017-09-05 11:00 | Physical Therapy Daily Note ---
PT Daily Note-Current Subjective States that he is doing okay. Pain Numeric Pain Scale: 5-Moderate Pain Location: Right, Left Location Body Site: Foot Transfers Functional Nolan Measure 0=Not Assessed/NA 4=Minimal Assistance 1=Total Assistance 5=Supervision or Setup 2=Maximal Assistance 6=Modified [place] 3=Moderate Assistance 7=Complete IndependenceIRFPAI Quality Coding Scale 6 Independent with activity with or without an assistive device 5 Patient requires set up or clean up by helper. Patient completes activity by themselves 4 Supervision or touching assist (CGA). [place] provide cues , steadying assist 3 The helper provides less than half the effort to complete the activity 2 The helper provides more than half the effort to complete the activity 1 Dependent. The helper does all the effort to complete an activity 7 Patient refused to complete or attempt activity 9 The patient did not perform the activity before the current illness or injury 88 Not attempted due to Medical conditions or safety concerns Transfers (B, C, W/C) (FIM): 2 Scootin Rollin Supine to/from Sit: 5 Sit to/from Stand: 2 Weight Bearing Right Lower Extremity: Right Non Weight Bearing Left Lower Extremity: Left Partial Weight Bearing Assessment Current Status: Good Progress Patient has difficulty maintaining weightbearing status while performing sit to stand transfer with FWW. Patient will need a WC prior to going home. PT Half-Way Goals Half-Way Goals PT Half-Way Goals Time Frame: Sep 11, 2017 Transfers (B,C,W/C) (FIM): 6 Wheelchair (FIM): 6 Wheelchair distance (FIM): 3=150 ft Wheelchair Level of Assist: 6 PT Plan Treatment/Plan Treatment Plan: Continue Plan of Care Treatment Plan: Education, Functional Activity Samuel, Functional Strength, Gait , Safety, Therapeutic Exercise, Transfers Treatment Duration: Sep 11, 2017 Frequency: 11 times per week Estimated Hrs Per Day: .5 hour per day Patient and/or Family Agrees t: Yes Discharge Recommendations Therapy D/C Recommendations: Occupational Therapy Home Care, Physical Therapy Home Care Equpiment Recommendations-D/C: Manual Wheelchair Time/GCodes Time In: 1020 Time Out: 1050 Total Billed Treatment Time: 30 Total Billed Treatment 1, FA x 30' TAWANDA HOLLAND PT Sep 05, 2017 11:00
[2017-09-05] MEDS: ENOXAPARIN 40 MG/0.4 ML (LOVENOX) SYR SC SCH (14:55)
[2017-09-05 16:18] VITALS: BP 129/74
[2017-09-05 20:00] VITALS: BP 126/51
[2017-09-05] MEDS: oxyCODONE/APAP 5/325MG (PERCOCET 5) TABLET PO PRN (21:32)
[2017-09-05] MEDS: inSUlin DETERMIR 1 UNIT/0.01 ML (LEVEMIR) CHARGE PER UNIT SQ SCH (21:32)
[2017-09-05 23:35] VITALS: BP 108/60
[2017-09-06] MEDS: LACTATED RINGERS 1,000 ML IV SCH ×3 (01:43→13:35)
[2017-09-06] MEDS: oxyCODONE/APAP 5/325MG (PERCOCET 5) TABLET PO PRN ×3 (03:20→15:17)
[2017-09-06 03:50] VITALS: BP 115/65
[2017-09-06] MEDS: PIPERACILLIN/TAZOBACTAM 4.5 GM/D5W 100 ML IVPB IV SCH ×6 (05:17→21:21)
[2017-09-06] MEDS: inSUlin (REGULAR) HUMAN 1 UNIT/0.01 ML (CHARGE PER UNIT) SC SCH ×4 (05:56→21:13)
[2017-09-06 07:04] LABS: BASOPHILS % (AUTO) 0 % (0-10); EOSINOPHILS # (AUTO) 0.2 10^3/uL (0.0-0.3); EOSINOPHILS % (AUTO) 3 % (0-10); HEMATOCRIT 34 % (40-54); HEMOGLOBIN 11.4 G/DL (13.3-17.7); LYMPHOCYTES # (AUTO) 1.8 X 10^3 (1.0-4.0); LYMPHOCYTES % (AUTO) 34 % (12-44); MEAN CORPUSCULAR HEMOGLOBIN 30 PG (25-34); MEAN CORPUSCULAR HGB CONC 33 G/DL (32-36); MEAN CORPUSCULAR VOLUME 89 FL (80-99); MEAN PLATELET VOLUME 10.8 FL (7.4-10.4); MONOCYTES # (AUTO) 0.6 X 10^3 (0.0-1.0); MONOCYTES % (AUTO) 12 % (0-12); NEUTROPHILS # (AUTO) 2.7 X 10^3 (1.8-7.8); NEUTROPHILS % (AUTO) 51 % (42-75); PLATELET COUNT 446 10^3/uL (130-400); RED BLOOD COUNT 3.86 10^6/uL (4.35-5.85); RED CELL DISTRIBUTION WIDTH 13.8 % (10.0-14.5); WHITE BLOOD COUNT 5.3 10^3/uL (4.3-11.0)
[2017-09-06 07:20] LABS: BUN/CREATININE RATIO 15; CALCIUM 8.5 MG/DL (8.5-10.1); CARBON DIOXIDE 25 MMOL/L (21-32); CHLORIDE 105 MMOL/L (98-107); CREATININE SERUM 0.75 MG/DL (0.60-1.30); GFR ESTIMATED > 60; GLUCOSE 181 MG/DL (70-105); MAGNESIUM 1.6 MG/DL (1.8-2.4); POTASSIUM 3.7 MMOL/L (3.6-5.0); SODIUM 138 MMOL/L (135-145)
[2017-09-06] MEDS: VANCOMYCIN 1500 MG/NS 500 ML IVPB IV SCH ×4 (08:07→20:16)
--- NOTE | 2017-09-06 08:29 | Progress Note (SOAP) ---
Subjective Subjective/Events-last exam Patient reports he is doing okay. He states that when he had his liver transplant that the doctors at told him not to have more than 2 grams of tylenol in a day, and to avoid it if possible. He wonders if he could have plain oxycodone instead of oxycodone/acetaminophen. He also reports that he has an area on his upper left back that he was told by Dr. Partida was non healing and suspicious for skin cancer, and he needed to have it biopsied. The patient states he just wanted to mention this so he didn't forget, he reports he isn't sure how long the area has been there, but it has been several years at least, and has started to grow larger. No other complaints or concerns. No acute events overnight. Pt states he just spoke with his crater and packer who is going to get his house ready for him to be discharged; he doesn't feel he will be ready tomorrow but thinks Thursday would be better. No concerns from the nursing staff. Review of Systems Date Seen by Provider: Sep 06, 2017 Time Seen by Provider: 12:17 General: No Chills, No Night Sweats, No Fatigue, No Malaise HEENT: No Head Aches, No Visual Changes, No Ear Pain, No Dysphasia Pulmonary: No Dyspnea, No Cough Cardiovascular: No: Chest Pain, Palpitations, Paroxysmal Noc. Dyspnea Gastrointestinal: No: Nausea, Vomiting, Abdominal Pain, Diarrhea, Constipation Genitourinary: No Dysuria, No Frequency Musculoskeletal: foot pain Neurological: No: Incoordination, Change in speech, Confusion, Seizures Objective Exam Last Set of Vital Signs Vital Signs Date Time Temp Pulse Resp B/P (MAP) Pulse Ox O2 Delivery O2 Flow Rate FiO2 09/06/17 03:50 98.1 67 18 115/65 (82) 96 Room Air Capillary Refill : Less Than 3 SecondsLess Than 3 Seconds I&O Intake and Output 09/06/17 00:00 Intake Total 4107 ml Output Total 1700 ml Balance 2407 ml Intake Oral 1490 ml IV Total 2617 ml Output Urine Total 1700 ml # Voids 1 # Emeses 500 General: Alert, Oriented X3, Cooperative, No Acute Distress HEENT: Atraumatic, EOMI, Mucous Memb Moist/[place] Neck: Supple, No Thyromegaly Lungs: Clear to Auscultation, Normal Air Movement Heart: Regular Rate, Normal S1, Normal S2, No Murmurs Abdomen: Normal Bowel Sounds, Soft, No Tenderness, No Masses Extremities: No Clubbing, Other (bilateral feet wrapped in clean bandages) Skin: No Rashes, Other (upper left back has irregularly shaped area that is approximately 2 cm x 5 cm and pink in color, with a reddened area that is <1 cm toward the upper left border) Neuro: Normal Speech, Normal Tone, Sensation Intact, Cranial Nerves 3-12 NL Psych/Mental Status: Mental Status NL, Mood NL Results/Procedures Lab Laboratory Tests 09/05/17 11:31: Glucometer 163H 09/05/17 16:26: Glucometer 230H 09/05/17 20:47: Glucometer 242H 09/06/17 05:47: Glucometer 167H 09/06/17 06:16: White Blood Count 5.3, Red Blood Count 3.86L, Hemoglobin 11.4L, Hematocrit 34L, Mean Corpuscular Volume 89, Mean Corpuscular Hemoglobin 30, Mean Corpuscular Hemoglobin Concent 33, Red Cell Distribution Width 13.8, Platelet Count 446H, Mean Platelet Volume 10.8H, Neutrophils (%) (Auto) 51, Lymphocytes (%) (Auto) 34 , Monocytes (%) (Auto) 12, Eosinophils (%) (Auto) 3, Basophils (%) (Auto) 0, Neutrophils # (Auto) 2.7, Lymphocytes # (Auto) 1.8, Monocytes # (Auto) 0.6, Eosinophils # (Auto) 0.2, Basophils # (Auto) 0.0, Sodium Level 138, Potassium Level 3.7, Chloride Level 105, Carbon Dioxide Level 25, Anion Gap 8, Blood Urea Nitrogen 11, Creatinine 0.75, Estimat Glomerular Filtration Rate > 60, BUN/ Creatinine Ratio 15, Glucose Level 181H, Calcium Level 8.5, Magnesium Level 1.6L Microbiology 09/01/17 Blood Culture - Preliminary, Resulted No growth 09/03/17 MRSA Screen - Final, Complete MRSA not isolated 09/04/17 Gram Stain - Final, Resulted 09/04/17 Anaerobic Culture, Resulted Pending 09/04/17 Surgical Culture - Preliminary, Resulted Staphylococcus species Radiology Right foot x-ray: IMPRESSION: Postsurgical changes. There are some erosive changes of the distal third metatarsal, suspicious for osteomyelitis. MRI left foot 09/01/17: IMPRESSION: 1. Osteomyelitis of the tip of the fourth distal phalanx. 2. Signal abnormality within the residual third proximal phalanx could be due to developing osteomyelitis if there is an adjacent soft tissue ulcer. 3. No drainable soft tissue abscess. MRI right foot 09/01/17: IMPRESSION: 1. Osteomyelitis of the second metatarsal that extends proximally to the level of the proximal one third of the metatarsal shaft. There is also osteomyelitis of the third proximal phalanx which is dorsally dislocated. 2. Soft tissue ulcer in the plantar aspect of the foot overlying the third metatarsal head with a small abscess at the base of the ulcer. The soft tissues both medial and lateral to the ulcer do not enhance and are concerning for a small area of devitalized soft tissue. CT abdomen/pelvis 09/01/17: IMPRESSION: 1. Overall stable CT of the abdomen and pelvis. 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 No acute feature is detected. KARLO 09/02/17: right 1.21, left 1.11 Procedures Transmetatarsal amputation right foot, Partial amputation of the left 4th toe by Dr. Edwards Assessment/Plan Assessment/Plan Admission Dx Cellulitis Diabetes Mellitus, Type 2 Illicit Drug Use (1) Cellulitis of foot Status: Acute Assessment & Plan: Vancomycin and zosyn, improving Wound care consult 2/3 -POD 1 s/p Transmetatarsal amputation right foot, Partial amputation of the left 4th toe by Dr. Edwards for Osteomyelitis -Day 5 Vanc and Zosyn -Continue abx for now -WBC 4.6 --> 4.8 --> 7.0 2/4 -POD 2 s/p Transmetatarsal amputation right foot, Partial amputation of the left 4th toe by Dr. Edwards for Osteomyelitis -Day 6 Vanc and Zosyn -surgical cultures all growing staphylococcus species, sensitivities pending -Continue abx for now; per MRI reports all areas showing osteomyelitis have been amputated, likely can stop abx tomorrow -WBC 4.6 --> 4.8 --> 7.0 --> 5.3 (2) Non-healing wound Status: Resolved Assessment & Plan: 2/3 -POD 1 s/p Transmetatarsal amputation right foot, partial amputation of the left 4th toe 2/4 -POD 2 s/p Transmetatarsal amputation right foot, partial amputation of the left 4th toe (3) Diabetes mellitus type 2 with complications Status: Chronic Assessment & Plan: Sliding scale insulin, diabetic diet 2/2 A1c over 11, will start levemir 10 units at bedtime, has been requiring 3-6 units of sliding scale with meals, will re-evaluate to add mealtime dosing in next 24 hours 2/3 -is not yet tolerating much PO, but will adjust sliding scale when taking more PO and can more accurately evaluate mealtime insulin requirement 2/4 -sugars 163 - 230 - 242 - 167 -is now tolerating PO, continue sliding scale insulin -will almost certainly need to be discharged on insulin Qualifiers: Qualified Codes: E11.8 - Type 2 diabetes mellitus with unspecified complications (4) Illicit drug use Status: Acute (5) S/P liver transplant Status: Chronic Assessment & Plan: 2 Confirmed with him today that he had transplant at , no records were available in clinic, called Hepatology and spoke to nurse who reported he has not been seen since 2009 and they had been unable to reach him after his last visit. Last visit so long ago that they can't tell what dose/ medications he was on and he will need to have new referral to re-establish which is recommended. 2/3 -will plan referral after discharge -will hold on restarting anti-rejection medications at this time as pt is POD 1 s/p Transmetatarsal amputation right foot, Partial amputation of the left 4th toe (6) Osteomyelitis of right foot Status: Acute Assessment & Plan: Checking vascular supply of legs, continue zosyn and vancomycin 2/1 KARLO normal, Podiatry consult, plan for amputation tomorrow 2/3 -POD 1 s/p Transmetatarsal amputation right foot, partial amputation of the left 4th toe -Day 5 Vanc and Zosyn 2/4 -POD 2 s/p Transmetatarsal amputation right foot, partial amputation of the left 4th toe -Day 6 Vanc and Zosyn -all osteomyelitis areas removed by amputation, likely abx can be stopped tomorrow as pt has been afebrile and WBC has trended down (7) Osteomyelitis of toe of left foot Status: Acute Assessment & Plan: Checking vascular supply of legs, continue zosyn and vancomycin 2/1 KARLO normal, Podiatry consult, plan for amputation 2/3 -POD 1 s/p Transmetatarsal amputation right foot, partial amputation of the left 4th toe -Day 5 Vanc and Zosyn 2/4 -POD 2 s/p Transmetatarsal amputation right foot, partial amputation of the left 4th toe -Day 6 Vanc and Zosyn (8) Hematuria Status: Acute Assessment & Plan: CT abdomen with no acute findings, discussed with patient likely need for cystoscopy outpatient (9) At risk for deep venous thrombosis Status: Acute Assessment & Plan: Enoxaparin (10) Anemia Status: Acute Assessment & Plan: 2/3 -Hgb 12.8 --> 13.9 --> 12.4 -likely dilutional -recheck in AM 2/4 -Hgb 12.8 --> 13.9 --> 12.4 --> 11.4 -likely dilutional -recheck in AM Qualifiers: Qualified Codes: D64.89 - Other specified anemias (11) Skin lesion of back Status: Chronic Assessment & Plan: 2/4 -pt with skin lesion on back that has been present for several years, and has gotten bigger -has been recommended by Dr. Partida to have area biopsied, as lesion is highly concerning for skin cancer -plan for biopsy in clinic after discharge Clinical Quality Measures DVT/VTE Risk/Contraindication: Risk Factor Score Per Nursin RFS Level Per Nursing on Admit: 4+=Very High INA VASQUEZ DO Sep 06, 2017 08:29
[2017-09-06 08:30] VITALS: BP 144/82
[2017-09-06] MEDS: MAGNESIUM 1 GM/100 ML IVPB 100 ML IV SCH ×2 (09:19→10:21)
[2017-09-06] MEDS: HYDROmorphone (DILAUDID) 2 MG/ML VIAL IVP PRN ×2 (10:27→17:07)
--- NOTE | 2017-09-06 10:40 | Anesthesia-General Post-Op ---
General Patient Condition Mental Status/LOC: Same as Preop Cardiovascular: Satisfactory Nausea/Vomiting: Absent Respiratory: Satisfactory Pain: Controlled Complications: Absent Post Op Complications Complications None Follow Up Care/Instructions Patient Instructions None needed. Anesthesia/Patient Condition Patient Condition Patient is doing well, no complaints, stable vital signs, no apparent adverse anesthesia problems. No complications reported per nursing. D/C home per [facility] Criteria: No JORGE VICKERS CRNA Sep 06, 2017 10:40
[2017-09-06 12:30] VITALS: BP 130/75
[2017-09-06] MEDS: ENOXAPARIN 40 MG/0.4 ML (LOVENOX) SYR SC SCH (14:19)
[2017-09-06] MEDS: CATHETER FLUSH 10 ML SYR IV SCH ×2 (14:19→21:21)
--- NOTE | 2017-09-06 14:34 | Podiatry Progress Note ---
Standard Progress Note Progress Notes/Assess & Plan Date Seen by Provider: Sep 06, 2017 Time Seen by Provider: 14:24 Progress/Assessment & Plan Post op day #2. The patient is doing well, no F/C/N/V. Pain controlled with medication for right foot. No pain to the left foot. The dressing is intact bilaterally. Hematogenous strikethrough to the right foot dressing. Once the dressings were removed, there is well coapted amputation site to the right forefoot and the left 4th toe. There is no active bleeding, no necrosis and CFT is less than 3 seconds. There is no excessive erythema to the right forefoot. Wound culture of the right foot indicated Staphylococcus aureus. Dx: Osteomyelitis of the right 3rd digit and metatarsal and the left 4th digit with two days post op: 1: Right Transmetatarsal Amputation 2: Partial Amputation of the left 4th toe Plan: Removed drain to the right foot. Sterile redress of the foot, bilaterally. Keep dressing dry, cleaned and intact, bilaterally. Reinforce dressing as needed. Continue non-weight bearing on the right and full weight bearing left with surgical splint shoe. Awaiting final culture and sensitivity for determination of possible oral antibiotic. He should be seen in my office in one week pending discharge. Okay to be treated at home with oral antibiotics from podiatry standpoint. Final Diagnosis Osteomyelitis right 3rd metatarsal and toe and left 4th toe KENNY RENAE DPM Sep 06, 2017 14:34
[2017-09-06 16:59] VITALS: BP 131/70
[2017-09-06] MEDS: inSUlin DETERMIR 1 UNIT/0.01 ML (LEVEMIR) CHARGE PER UNIT SQ SCH (21:13)
[2017-09-07] VITALS: BP 105/57
[2017-09-07] MEDS: LACTATED RINGERS 1,000 ML IV SCH (03:18)
[2017-09-07] MEDS: CATHETER FLUSH 10 ML SYR IV SCH ×3 (05:32→21:06)
[2017-09-07] MEDS: PIPERACILLIN/TAZOBACTAM 4.5 GM/D5W 100 ML IVPB IV SCH ×6 (05:32→23:43)
[2017-09-07] MEDS: inSUlin (REGULAR) HUMAN 1 UNIT/0.01 ML (CHARGE PER UNIT) SC SCH ×4 (06:26→21:02)
[2017-09-07 06:28] LABS: BASOPHILS % (AUTO) 1 % (0-10); EOSINOPHILS # (AUTO) 0.2 10^3/uL (0.0-0.3); EOSINOPHILS % (AUTO) 3 % (0-10); HEMATOCRIT 36 % (40-54); LYMPHOCYTES # (AUTO) 1.7 X 10^3 (1.0-4.0); LYMPHOCYTES % (AUTO) 28 % (12-44); MEAN CORPUSCULAR HEMOGLOBIN 29 PG (25-34); MEAN CORPUSCULAR HGB CONC 33 G/DL (32-36); MEAN CORPUSCULAR VOLUME 88 FL (80-99); MEAN PLATELET VOLUME 10.6 FL (7.4-10.4); MONOCYTES # (AUTO) 0.6 X 10^3 (0.0-1.0); MONOCYTES % (AUTO) 10 % (0-12); NEUTROPHILS # (AUTO) 3.6 X 10^3 (1.8-7.8); NEUTROPHILS % (AUTO) 58 % (42-75); PLATELET COUNT 465 10^3/uL (130-400); RED CELL DISTRIBUTION WIDTH 13.9 % (10.0-14.5); WHITE BLOOD COUNT 6.1 10^3/uL (4.3-11.0)
[2017-09-07 07:13] LABS: BUN/CREATININE RATIO 16; CALCIUM 8.9 MG/DL (8.5-10.1); CARBON DIOXIDE 25 MMOL/L (21-32); CHLORIDE 105 MMOL/L (98-107); GFR ESTIMATED > 60; GLUCOSE 136 MG/DL (70-105); POTASSIUM 3.6 MMOL/L (3.6-5.0); SODIUM 140 MMOL/L (135-145)
[2017-09-07 08:00] VITALS: BP 132/73
[2017-09-07] MEDS: VANCOMYCIN 1500 MG/NS 500 ML IVPB IV SCH ×4 (09:01→21:01)
--- NOTE | 2017-09-07 09:31 | Physical Therapy Daily Note ---
PT Daily Note-Current Subjective Patient agrees to PT. Pain Numeric Pain Scale: 0-No Pain Location: No Pain Reported Mental Status Patient Orientation: Normal For Age Attachments: IV Transfers Functional [place] Measure 0=Not Assessed/NA 4=Minimal Assistance 1=Total Assistance 5=Supervision or Setup 2=Maximal Assistance 6=Modified [place] 3=Moderate Assistance 7=Complete IndependenceIRFPAI Quality Coding Scale 6 Independent with activity with or without an assistive device 5 Patient requires set up or clean up by helper. Patient completes activity by themselves 4 Supervision or touching assist (CGA). [place] provide cues , steadying assist 3 The helper provides less than half the effort to complete the activity 2 The helper provides more than half the effort to complete the activity 1 Dependent. The helper does all the effort to complete an activity 7 Patient refused to complete or attempt activity 9 The patient did not perform the activity before the current illness or injury 88 Not attempted due to Medical conditions or safety concerns Transfers (B, C, W/C) (FIM): 6 Scootin Rollin Supine to/from Sit: 7 Sit to/from Stand: 6 Weight Bearing Right Lower Extremity: Right Non Weight Bearing Left Lower Extremity: Left Full Weight Bearing (per Dr. Edwards's report) Gait Training Gait (FIM): 1 Distance (FIM): 1=up to 49 ft Distance: 15' Gait Level of Assist: 4 Gait Persons Needed: 1 Gait Assistive Device: FWW Patient wanted to use restroom and not commode. patient was able to perform FWB left LE and NWB right LE Assessment Patient tolerated treatment well and is up in recliner with needs met. PT educated patient on short distances only with "hopping" gait to avoid compromising left foot. Patient voiced understanding. PT T[employer] Center Manager Goals T[employer] Center Manager Goals PT Half-Way Goals Time Frame: Sep 11, 2017 Transfers (B,C,W/C) (FIM): 6 Wheelchair (FIM): 6 Wheelchair distance (FIM): 3=150 ft Wheelchair Level of Assist: 6 PT Plan Treatment/Plan Treatment Plan: Continue Plan of Care, Modify Plan, see comments Treatment Plan: Education, Functional Activity Samuel, Functional Strength, Gait , Safety, Therapeutic Exercise, Transfers Treatment Duration: Sep 11, 2017 Frequency: 6 times per week Estimated Hrs Per Day: .25 hour per day Patient and/or Family Agrees t: Yes Time/GCodes Time In: 915 Time Out: 928 Total Billed Treatment Time: 13 Total Billed Treatment 1 visit FA 13 min EPIFANIO YA PT Sep 07, 2017 09:31
[2017-09-07] MEDS ORDERED: AMOX500T2 PO (13:30)
--- NOTE | 2017-09-07 13:34 | D/C HH Face to Face Order ---
D/C Face to Face Orders Instructions for Patient Patient Instructions/FollowUp: DR QUIÑONEZ ON SEPTEMBER 10 AT 1:20 Physician to follow Patient: LAWRENCELUIS EDUARDOKEVIN Discharge Diet for Home: ADA Diet Patient Problems: DIABETES MELLITUS TYPE 2, UNCONTROLLED, CIRCULATORY COMPLICATIONS LIVER TRANSPLANT OSTEOMYELITIS Goals for Patient: SAFETY AT HOME, REDUCED FALLS, IMPROVED ABILITY TO WALK S/P AMPUTATION Patient Data-Allergies,Ht & Wt Patient Allergies: Coded Allergies: NKANo Known Allergies (Verified Allergy, Unknown, 11/24/05) Height (Feet): 6 Height (Inches): 0.00 Weight (Pounds): 210 Weight (Ounces): 8.0 Home Health Need/Face to Face Date of Face to Face: Sep 07, 2017 Clinical Findings: Immune-compromised, Instability, Non or partial weight bearing, Unsteady gait, Non-healing wound I have seen Pt [id number]: Yes Discharged To: Home Diagnosis/Conditions: SEE ABOVE Problems/Diagnosis/Condition: Patient is Homebound due to: [place] fall risk due to instabilty Homebound Status Due to the above stated illness, injury or surgical procedure (medical condition or diagnosis) and associated clinical findings, the patient is homebound because of his/her inability to leave home except with aid of a supportive device and/or person AND leaving the home requires a considerable and taxing effort or is medically contraindicated. Pt req the following assistanc: Walker Home Health Nursing Orders Home Health Services Order: Nursing Services, Plunger Shovel Operator-Evaluate & Treat, Physical Therapy-Evaluate & Treat, Wound Care-Eval/Treat Home Health Infusion Therapy Line Start Date: Sep 03, 2017 Line Type: Peripheral IV Site Location: Forearm Therapy Orders Therapy Orders: OT (must have SN or PT order), Physical Therapy Therapy Specific Orders: Eval assistive deivces, Teach enviro modifications/ safety, Gait training Certify Stmt I certify that this patient is under my care and that I, a nurse practitioner or a physician; a visitor services information assistant working with me, had a face to face encounter that - meets the physician face to face encounter requirements with this patient as dated. Copy Copies To 1: SUSAN QUIÑONEZ MD, JULIE A MD Sep 07, 2017 1:34 pm
--- NOTE | 2017-09-07 13:35 | Discharge Summary ---
Diagnosis/Chief Complaint Date of Admission Sep 01, 2017 at 1:00 am Date of Discharge September 08, 2017 Admission Diagnosis Admission Diagnosis SEE BELOW Discharge Diagnosis (1) Cellulitis of foot Status: Acute Assessment & Plan: Vancomycin and zosyn, improving Wound care consult 2/3 -POD 1 s/p Transmetatarsal amputation right foot, Partial amputation of the left 4th toe by Dr. Edwards for Osteomyelitis -Day 5 Vanc and Zosyn -Continue abx for now -WBC 4.6 --> 4.8 --> 7.0 2/4 -POD 2 s/p Transmetatarsal amputation right foot, Partial amputation of the left 4th toe by Dr. Edwards for Osteomyelitis -Day 6 Vanc and Zosyn -surgical cultures all growing staphylococcus species, sensitivities pending -Continue abx for now; per MRI reports all areas showing osteomyelitis have been amputated, likely can stop abx tomorrow -WBC 4.6 --> 4.8 --> 7.0 --> 5.3 2/ -To finish abx today. will dc on Amoxil -Initially planned to DC home with home health...now will plan a DC to local [place] per patient's request DISCHARGE: Patient to finish 1 week of amoxicillin 500mg TID at half-way. TO follow up with Dr Edwards's team as scheduled. (2) Non-healing wound Status: Resolved Assessment & Plan: 2/3 -POD 1 s/p Transmetatarsal amputation right foot, partial amputation of the left 4th toe 2/4 -POD 2 s/p Transmetatarsal amputation right foot, partial amputation of the left 4th toe (3) Diabetes mellitus type 2 with complications Status: Chronic Assessment & Plan: Sliding scale insulin, diabetic diet 2/2 A1c over 11, will start levemir 10 units at bedtime, has been requiring 3-6 units of sliding scale with meals, will re-evaluate to add mealtime dosing in next 24 hours 2/3 -is not yet tolerating much PO, but will adjust sliding scale when taking more PO and can more accurately evaluate mealtime insulin requirement 2/4 -sugars 163 - 230 - 242 - 167 -is now tolerating PO, continue sliding scale insulin -will almost certainly need to be discharged on insulin 2/5 - plan to DC on insulin DISCHARGE: Will DC patient on levemir and Novolog. These can probably be backed down to orals over time. However, it is more important to adequatel control BS in the immediate postoperative period rather than allow hyperglycemia while trying to switch to orals. Qualifiers: Qualified Codes: E11.8 - Type 2 diabetes mellitus with unspecified complications (4) Illicit drug use Status: Acute DISCHARGE: Patient will not receive controlled substances at discharge. 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 (5) S/P liver transplant Status: Chronic Assessment & Plan: 09/04 Confirmed with him today that he had transplant at , no records were available in clinic, called Hepatology and spoke to nurse who reported he has not been seen since 2009 and they had been unable to reach him after his last visit. Last visit so long ago that they can't tell what dose/ medications he was on and he will need to have new referral to re-establish which is recommended. 2/3 -will plan referral after discharge -will hold on restarting anti-rejection medications at this time as pt is POD 1 s/p Transmetatarsal amputation right foot, Partial amputation of the left 4th toe 2 - no amezquita to start immunosuppressants in light of recent surgery, and he has been without them already. will arrange appt with once he re- establishes care with us. DISCHARGE: Recommend that referral be placed for Hepatology once [facility]. (6) Osteomyelitis of right foot Status: Acute Assessment & Plan: Checking vascular supply of legs, continue zosyn and vancomycin 2/1 KARLO normal, Podiatry consult, plan for amputation tomorrow 2/3 -POD 1 s/p Transmetatarsal amputation right foot, partial amputation of the left 4th toe -Day 5 Vanc and Zosyn 2/4 -POD 2 s/p Transmetatarsal amputation right foot, partial amputation of the left 4th toe -Day 6 Vanc and Zosyn -all osteomyelitis areas removed by amputation, likely abx can be stopped tomorrow as pt has been afebrile and WBC has trended down (7) Osteomyelitis of toe of left foot Status: Acute Assessment & Plan: Checking vascular supply of legs, continue zosyn and vancomycin 2/1 KARLO normal, Podiatry consult, plan for amputation 2/3 -POD 1 s/p Transmetatarsal amputation right foot, partial amputation of the left 4th toe -Day 5 Vanc and Zosyn 2/4 -POD 2 s/p Transmetatarsal amputation right foot, partial amputation of the left 4th toe -Day 6 Vanc and Zosyn (8) Hematuria Status: Acute Assessment & Plan: CT abdomen with no acute findings, discussed with patient likely need for cystoscopy outpatient DISCHARGE: Patient should have repeat UA as an outpatient (9) At risk for deep venous thrombosis Status: Acute Assessment & Plan: Enoxaparin (10) Anemia Status: Acute Assessment & Plan: 2/3 -Hgb 12.8 --> 13.9 --> 12.4 -likely dilutional -recheck in AM 2/4 -Hgb 12.8 --> 13.9 --> 12.4 --> 11.4 -likely dilutional -recheck in AM Qualifiers: Qualified Codes: D64.89 - Other specified anemias (11) Skin lesion of back Status: Chronic Assessment & Plan: 2/4 -pt with skin lesion on back that has been present for several years, and has gotten bigger -has been recommended by Dr. Partida to have area biopsied, as lesion is highly concerning for skin cancer -plan for biopsy in clinic after discharge DISCHARGE: Needs a biopsy after discharge. Chief Complaint/HPI Chief Complaint/HPI 66 yo male with history of liver transplant and diabetes off of all medications for several months, presented to ER with chills and not feeling well and redness and swelling in right foot with non-healing ulcer for about a month. He also notes non-healing wound on back that has been present for about a year, he occasionally uses a knife to scrape scab off of it. He hasn't been taking medications because he was concerned about side effects- after he discovered that Prograf could cause diabetes, he stopped all his medications. He has had osteomyelitis with toe amputations in the past, but does not recall if he has had vascular studies. Discharge Summary-Simple/Stand Procedures Transmetatarsal amputation right foot, Partial amputation of the left 4th toe by Dr. Edwards Consultations Discharge Physical Examination Allergies: Coded Allergies: NKANo Known Allergies (Verified Allergy, Unknown, 11/24/05) Vitals & I&Os Vital Sign - Last 12Hours Date Time Temp Pulse Resp B/P (MAP) Pulse Ox O2 Delivery O2 Flow Rate FiO2 09/07/17 09:30 97.8 09/07/17 08:00 74 20 132/73 (92) 98 Room Air Intake and Output 09/07/17 00:00 Intake Total 1885 ml Output Total 2450 ml Balance -565 ml General Appearance: Alert, Oriented X3, Cooperative, No Acute Distress Respiratory: Clear to Auscultation, Normal Air Movement Cardiovascular: Regular Rate, Normal S1, Normal S2, No Murmurs, Gallops, Rubs Abdominal: Normal Bowel Sounds, Soft, No Tenderness, No Hepatosplenomegaly, No Masses Neuro: Normal Speech Psych/Mental Status: Mental Status NL, Mood NL Hospital Course See final discharge diagnosis. Labs Laboratory Tests Test 09/05/17 16:26 09/05/17 20:47 09/06/17 05:47 09/06/17 06:16 Range/Units Glucometer 230 H 242 H 167 H 70-110 MG/DL White Blood Count 5.3 4.3-11.0 10^3/uL Red Blood Count 3.86 L 4.35-5.85 10^6/uL Hemoglobin 11.4 L 13.3-17.7 G/DL Hematocrit 34 L 40-54 % Mean Corpuscular Volume 89 80-99 FL Mean Corpuscular Hemoglobin 30 25-34 PG Mean Corpuscular Hemoglobin Concent 33 32-36 G/DL Red Cell Distribution Width 13.8 10.0-14.5 % Platelet Count 446 H 130-400 10^3/uL Mean Platelet Volume 10.8 H 7.4-10.4 FL Neutrophils (%) (Auto) 51 42-75 % Lymphocytes (%) (Auto) 34 12-44 % Monocytes (%) (Auto) 12 0-12 % Eosinophils (%) (Auto) 3 0-10 % Basophils (%) (Auto) 0 0-10 % Neutrophils # (Auto) 2.7 1.8-7.8 X 10^3 Lymphocytes # (Auto) 1.8 1.0-4.0 X 10^3 Monocytes # (Auto) 0.6 0.0-1.0 X 10^3 Eosinophils # (Auto) 0.2 0.0-0.3 10^3/uL Basophils # (Auto) 0.0 0.0-0.1 10^3/uL Sodium Level 138 135-145 MMOL/L Potassium Level 3.7 3.6-5.0 MMOL/L Chloride Level 105 98-107 MMOL/L Carbon Dioxide Level 25 21-32 MMOL/L Anion Gap 8 5-14 MMOL/L Blood Urea Nitrogen 11 7-18 MG/DL Creatinine 0.75 0.60-1.30 MG/DL Estimat Glomerular Filtration Rate > 60 BUN/Creatinine Ratio 15 Glucose Level 181 H 70-105 MG/DL Calcium Level 8.5 8.5-10.1 MG/DL Magnesium Level 1.6 L 1.8-2.4 MG/DL Test 09/06/17 10:28 09/06/17 16:41 09/06/17 20:38 09/07/17 06:04 Range/Units Glucometer 261 H 179 H 252 H 133 H 70-110 MG/DL Test 09/07/17 06:15 09/07/17 11:19 09/07/17 16:08 09/07/17 20:33 Range/Units White Blood Count 6.1 4.3-11.0 10^3/uL Red Blood Count 4.10 L 4.35-5.85 10^6/uL Hemoglobin 12.0 L 13.3-17.7 G/DL Hematocrit 36 L 40-54 % Mean Corpuscular Volume 88 80-99 FL Mean Corpuscular Hemoglobin 29 25-34 PG Mean Corpuscular Hemoglobin Concent 33 32-36 G/DL Red Cell Distribution Width 13.9 10.0-14.5 % Platelet Count 465 H 130-400 10^3/uL Mean Platelet Volume 10.6 H 7.4-10.4 FL Neutrophils (%) (Auto) 58 42-75 % Lymphocytes (%) (Auto) 28 12-44 % Monocytes (%) (Auto) 10 0-12 % Eosinophils (%) (Auto) 3 0-10 % Basophils (%) (Auto) 1 0-10 % Neutrophils # (Auto) 3.6 1.8-7.8 X 10^3 Lymphocytes # (Auto) 1.7 1.0-4.0 X 10^3 Monocytes # (Auto) 0.6 0.0-1.0 X 10^3 Eosinophils # (Auto) 0.2 0.0-0.3 10^3/uL Basophils # (Auto) 0.0 0.0-0.1 10^3/uL Sodium Level 140 135-145 MMOL/L Potassium Level 3.6 3.6-5.0 MMOL/L Chloride Level 105 98-107 MMOL/L Carbon Dioxide Level 25 21-32 MMOL/L Anion Gap 10 5-14 MMOL/L Blood Urea Nitrogen 11 7-18 MG/DL Creatinine 0.70 0.60-1.30 MG/DL Estimat Glomerular Filtration Rate > 60 BUN/Creatinine Ratio 16 Glucose Level 136 H 70-105 MG/DL Calcium Level 8.9 8.5-10.1 MG/DL Glucometer 205 H 214 H 213 H 70-110 MG/DL Test 09/08/17 06:39 09/08/17 06:40 09/08/17 10:25 Range/Units Glucometer 169 H 230 H 70-110 MG/DL White Blood Count 6.2 4.3-11.0 10^3/uL Red Blood Count 4.26 L 4.35-5.85 10^6/uL Hemoglobin 12.5 L 13.3-17.7 G/DL Hematocrit 37 L 40-54 % Mean Corpuscular Volume 87 80-99 FL Mean Corpuscular Hemoglobin 29 25-34 PG Mean Corpuscular Hemoglobin Concent 34 32-36 G/DL Red Cell Distribution Width 14.0 10.0-14.5 % Platelet Count 509 H 130-400 10^3/uL Mean Platelet Volume 10.8 H 7.4-10.4 FL Sodium Level 139 135-145 MMOL/L Potassium Level 3.8 3.6-5.0 MMOL/L Chloride Level 106 98-107 MMOL/L Carbon Dioxide Level 24 21-32 MMOL/L Anion Gap 9 5-14 MMOL/L Blood Urea Nitrogen 15 7-18 MG/DL Creatinine 0.76 0.60-1.30 MG/DL Estimat Glomerular Filtration Rate > 60 BUN/Creatinine Ratio 20 Glucose Level 183 H 70-105 MG/DL Calcium Level 9.1 8.5-10.1 MG/DL Radiology Reviewed Right foot x-ray: IMPRESSION: Postsurgical changes. There are some erosive changes of the distal third metatarsal, suspicious for osteomyelitis. MRI left foot 09/01/17: IMPRESSION: 1. Osteomyelitis of the tip of the fourth distal phalanx. 2. Signal abnormality within the residual third proximal phalanx could be due to developing osteomyelitis if there is an adjacent soft tissue ulcer. 3. No drainable soft tissue abscess. MRI right foot 09/01/17: IMPRESSION: 1. Osteomyelitis of the second metatarsal that extends proximally to the level of the proximal one third of the metatarsal shaft. There is also osteomyelitis of the third proximal phalanx which is dorsally dislocated. 2. Soft tissue ulcer in the plantar aspect of the foot overlying the third metatarsal head with a small abscess at the base of the ulcer. The soft tissues both medial and lateral to the ulcer do not enhance and are concerning for a small area of devitalized soft tissue. CT abdomen/pelvis 09/01/17: IMPRESSION: 1. Overall stable CT of the abdomen and pelvis. 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 No acute feature is detected. KARLO 09/02/17: right 1.21, left 1.11 Discharge Instructions to patient/family Please see electronic discharge instructions given to patient. Discharge Medications Reviewed and agree with Discharge Medication list on patient's Discharge Instruction sheet Clinical Quality Measures DVT/VTE Risk/Contraindication: Risk Factor Score Per Nursin RFS Level Per Nursing on Admit: 4+=Very High Copy Copies To 1: ESTHELA BAEZ APRN, MD Sep 07, 2017 1:35 pm
--- NOTE | 2017-09-07 15:20 | Progress Note (SOAP) ---
Subjective Subjective/Events-last exam Patient initially said that he was going to be able to go home and then decided that he wanted to receive therapy at a local [facility]. Review of Systems Date Seen by Provider: Sep 07, 2017 Time Seen by Provider: 10:00 Cardiovascular: No: Chest Pain Gastrointestinal: No: Nausea Objective Exam Last Set of Vital Signs Vital Signs Date Time Temp Pulse Resp B/P (MAP) Pulse Ox O2 Delivery O2 Flow Rate FiO2 09/07/17 09:30 97.8 09/07/17 08:00 74 20 132/73 (92) 98 Room Air Capillary Refill : Less Than 3 SecondsLess Than 3 Seconds I&O Intake and Output 09/07/17 00:00 Intake Total 4922 ml Output Total 4300 ml Balance 622 ml Intake Oral 1492 ml IV Total 3430 ml Output Urine Total 4300 ml # Voids 5 General: Alert, Oriented X3, Cooperative, No Acute Distress Lungs: Clear to Auscultation, Normal Air Movement Heart: Regular Rate, Normal S1, Normal S2, No Murmurs, Gallops, Rubs Abdomen: Normal Bowel Sounds, Soft, No Tenderness, No Hepatosplenomegaly, No Masses Extremities: No Clubbing, No Cyanosis, No Edema, Other (dressings clean) Psych/Mental Status: Mental Status NL, Mood NL Results/Procedures Lab Laboratory Tests 09/06/17 16:41: Glucometer 179H 09/06/17 20:38: Glucometer 252H 09/07/17 06:04: Glucometer 133H 09/07/17 06:15: White Blood Count 6.1, Red Blood Count 4.10L, Hemoglobin 12.0L, Hematocrit 36L, Mean Corpuscular Volume 88, Mean Corpuscular Hemoglobin 29, Mean Corpuscular Hemoglobin Concent 33, Red Cell Distribution Width 13.9, Platelet Count 465H, Mean Platelet Volume 10.6H, Neutrophils (%) (Auto) 58, Lymphocytes (%) (Auto) 28 , Monocytes (%) (Auto) 10, Eosinophils (%) (Auto) 3, Basophils (%) (Auto) 1, Neutrophils # (Auto) 3.6, Lymphocytes # (Auto) 1.7, Monocytes # (Auto) 0.6, Eosinophils # (Auto) 0.2, Basophils # (Auto) 0.0, Sodium Level 140, Potassium Level 3.6, Chloride Level 105, Carbon Dioxide Level 25, Anion Gap 10, Blood Urea Nitrogen 11, Creatinine 0.70, Estimat Glomerular Filtration Rate > 60, BUN/ Creatinine Ratio 16, Glucose Level 136H, Calcium Level 8.9 09/07/17 11:19: Glucometer 205H Microbiology 09/01/17 Blood Culture - Final, Complete No growth 09/03/17 MRSA Screen - Final, Complete MRSA not isolated 09/04/17 Gram Stain - Final, Resulted 09/04/17 Anaerobic Culture - Preliminary, Resulted No anaerobes isolated 09/04/17 Surgical Culture - Preliminary, Resulted Staph, Coag Neg (RECORDING CLERK) Radiology Right foot x-ray: IMPRESSION: Postsurgical changes. There are some erosive changes of the distal third metatarsal, suspicious for osteomyelitis. MRI left foot 09/01/17: IMPRESSION: 1. Osteomyelitis of the tip of the fourth distal phalanx. 2. Signal abnormality within the residual third proximal phalanx could be due to developing osteomyelitis if there is an adjacent soft tissue ulcer. 3. No drainable soft tissue abscess. MRI right foot 09/01/17: IMPRESSION: 1. Osteomyelitis of the second metatarsal that extends proximally to the level of the proximal one third of the metatarsal shaft. There is also osteomyelitis of the third proximal phalanx which is dorsally dislocated. 2. Soft tissue ulcer in the plantar aspect of the foot overlying the third metatarsal head with a small abscess at the base of the ulcer. The soft tissues both medial and lateral to the ulcer do not enhance and are concerning for a small area of devitalized soft tissue. CT abdomen/pelvis 09/01/17: IMPRESSION: 1. Overall stable CT of the abdomen and pelvis. 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 No acute feature is detected. KARLO 09/02/17: right 1.21, left 1.11 Procedures Transmetatarsal amputation right foot, Partial amputation of the left 4th toe by Dr. Edwards Assessment/Plan Assessment/Plan (1) Cellulitis of foot Status: Acute (2) Non-healing wound Status: Resolved (3) Diabetes mellitus type 2 with complications Status: Chronic Qualifiers: Qualified Codes: E11.8 - Type 2 diabetes mellitus with unspecified complications (4) Illicit drug use Status: Acute (5) S/P liver transplant Status: Chronic (6) Osteomyelitis of right foot Status: Acute (7) Osteomyelitis of toe of left foot Status: Acute (8) Hematuria Status: Acute (9) At risk for deep venous thrombosis Status: Acute (10) Anemia Status: Acute Qualifiers: Qualified Codes: D64.89 - Other specified anemias (11) Skin lesion of back Status: Chronic Assessment & Plan: (1) Cellulitis of foot Status: Acute Assessment & Plan: Vancomycin and zosyn, improving Wound care consult 2/3 -POD 1 s/p Transmetatarsal amputation right foot, Partial amputation of the left 4th toe by Dr. Edwards for Osteomyelitis -Day 5 Vanc and Zosyn -Continue abx for now -WBC 4.6 --> 4.8 --> 7.0 2/4 -POD 2 s/p Transmetatarsal amputation right foot, Partial amputation of the left 4th toe by Dr. Edwards for Osteomyelitis -Day 6 Vanc and Zosyn -surgical cultures all growing staphylococcus species, sensitivities pending -Continue abx for now; per MRI reports all areas showing osteomyelitis have been amputated, likely can stop abx tomorrow -WBC 4.6 --> 4.8 --> 7.0 --> 5.3 2/5 -To finish abx today. will dc on Amoxil -Initially planned to DC home with home health...now will plan a DC to local [place] per patient's request (2) Non-healing wound Status: Resolved Assessment & Plan: 2/3 -POD 1 s/p Transmetatarsal amputation right foot, partial amputation of the left 4th toe 2/4 -POD 2 s/p Transmetatarsal amputation right foot, partial amputation of the left 4th toe (3) Diabetes mellitus type 2 with complications Status: Chronic Assessment & Plan: Sliding scale insulin, diabetic diet 2/2 A1c over 11, will start levemir 10 units at bedtime, has been requiring 3-6 units of sliding scale with meals, will re-evaluate to add mealtime dosing in next 24 hours 2/3 -is not yet tolerating much PO, but will adjust sliding scale when taking more PO and can more accurately evaluate mealtime insulin requirement 2/4 -sugars 163 - 230 - 242 - 167 -is now tolerating PO, continue sliding scale insulin -will almost certainly need to be discharged on insulin 2/5 - plan to DC on insulin Qualifiers: Qualified Codes: E11.8 - Type 2 diabetes mellitus with unspecified complications (4) Illicit drug use Status: Acute (5) S/P liver transplant Status: Chronic Assessment & Plan: 09/04 Confirmed with him today that he had transplant at , no records were available in clinic, called Hepatology and spoke to nurse who reported he has not been seen since 2009 and they had been unable to reach him after his last visit. Last visit so long ago that they can't tell what dose/ medications he was on and he will need to have new referral to re-establish which is recommended. 2 -will plan referral after discharge -will hold on restarting anti-rejection medications at this time as pt is POD 1 s/p Transmetatarsal amputation right foot, Partial amputation of the left 4th toe 2/5 - no amezquita to start immunosuppressants in light of recent surgery, and he has been without them already. will arrange appt with once he re- establishes care with us. (6) Osteomyelitis of right foot Status: Acute Assessment & Plan: Checking vascular supply of legs, continue zosyn and vancomycin 2/1 KARLO normal, Podiatry consult, plan for amputation tomorrow 2/3 -POD 1 s/p Transmetatarsal amputation right foot, partial amputation of the left 4th toe -Day 5 Vanc and Zosyn 2/4 -POD 2 s/p Transmetatarsal amputation right foot, partial amputation of the left 4th toe -Day 6 Vanc and Zosyn -all osteomyelitis areas removed by amputation, likely abx can be stopped tomorrow as pt has been afebrile and WBC has trended down (7) Osteomyelitis of toe of left foot Status: Acute Assessment & Plan: Checking vascular supply of legs, continue zosyn and vancomycin 2/1 KARLO normal, Podiatry consult, plan for amputation 2/3 -POD 1 s/p Transmetatarsal amputation right foot, partial amputation of the left 4th toe -Day 5 Vanc and Zosyn 2/4 -POD 2 s/p Transmetatarsal amputation right foot, partial amputation of the left 4th toe -Day 6 Vanc and Zosyn (8) Hematuria Status: Acute Assessment & Plan: CT abdomen with no acute findings, discussed with patient likely need for cystoscopy outpatient (9) At risk for deep venous thrombosis Status: Acute Assessment & Plan: Enoxaparin (10) Anemia Status: Acute Assessment & Plan: 2/3 -Hgb 12.8 --> 13.9 --> 12.4 -likely dilutional -recheck in AM 2/4 -Hgb 12.8 --> 13.9 --> 12.4 --> 11.4 -likely dilutional -recheck in AM Qualifiers: Qualified Codes: D64.89 - Other specified anemias (11) Skin lesion of back Status: Chronic Assessment & Plan: 2/4 -pt with skin lesion on back that has been present for several years, and has gotten bigger -has been recommended by Dr. Partida to have area biopsied, as lesion is highly concerning for skin cancer -plan for biopsy in clinic after discharge Clinical Quality Measures DVT/VTE Risk/Contraindication: Risk Factor Score Per Nursin RFS Level Per Nursing on Admit: 4+=Very High ESTHELA DORMAN MD Sep 07, 2017 3:20 pm
[2017-09-07] MEDS ORDERED: ACETAMINOPHEN 500 MG TAB (TYLENOL) PO PRN (15:30)
[2017-09-07 16:30] VITALS: BP 132/80
[2017-09-07] MEDS: ENOXAPARIN 40 MG/0.4 ML (LOVENOX) SYR SC SCH (16:42)
[2017-09-07] MEDS: inSUlin DETERMIR 1 UNIT/0.01 ML (LEVEMIR) CHARGE PER UNIT SQ SCH (21:01)
[2017-09-08] VITALS: BP 141/80
[2017-09-08 07:10] LABS: HEMOGLOBIN 12.5 G/DL (13.3-17.7); MEAN PLATELET VOLUME 10.8 FL (7.4-10.4); RED BLOOD COUNT 4.26 10^6/uL (4.35-5.85); WHITE BLOOD COUNT 6.2 10^3/uL (4.3-11.0)
[2017-09-08 07:24] LABS: BUN/CREATININE RATIO 20; CALCIUM 9.1 MG/DL (8.5-10.1); CARBON DIOXIDE 24 MMOL/L (21-32); CHLORIDE 106 MMOL/L (98-107); CREATININE SERUM 0.76 MG/DL (0.60-1.30); GFR ESTIMATED > 60; GLUCOSE 183 MG/DL (70-105); POTASSIUM 3.8 MMOL/L (3.6-5.0); SODIUM 139 MMOL/L (135-145)
[2017-09-08 08:00] VITALS: BP 148/76
[2017-09-08] MEDS: CATHETER FLUSH 10 ML SYR IV SCH (08:46)
[2017-09-08] MEDS: inSUlin (REGULAR) HUMAN 1 UNIT/0.01 ML (CHARGE PER UNIT) SC SCH ×2 (08:46→11:00)
--- NOTE | 2017-09-08 10:04 | Physical Therapy Daily Note ---
PT Daily Note-Current Subjective Patient agrees to PT. Pain Numeric Pain Scale: 3 Location: Right Location Body Site: Foot Pain Description: Ache, Acute Mental Status Patient Orientation: Normal For Age Transfers Functional [place] Measure 0=Not Assessed/NA 4=Minimal Assistance 1=Total Assistance 5=Supervision or Setup 2=Maximal Assistance 6=Modified [place] 3=Moderate Assistance 7=Complete IndependenceIRFPAI Quality Coding Scale 6 Independent with activity with or without an assistive device 5 Patient requires set up or clean up by helper. Patient completes activity by themselves 4 Supervision or touching assist (CGA). [place] provide cues , steadying assist 3 The helper provides less than half the effort to complete the activity 2 The helper provides more than half the effort to complete the activity 1 Dependent. The helper does all the effort to complete an activity 7 Patient refused to complete or attempt activity 9 The patient did not perform the activity before the current illness or injury 88 Not attempted due to Medical conditions or safety concerns Transfers (B, C, W/C) (FIM): 7 Scootin Rollin Supine to/from Sit: 7 Sit to/from Stand: 7 Weight Bearing Right Lower Extremity: Right Non Weight Bearing Left Lower Extremity: Left Full Weight Bearing (per Dr. Edwards's report) Gait Training Gait (FIM): 1 Distance (FIM): 1=up to 49 ft Distance: 20' x 2 Gait Level of Assist: 5 Gait Assistive Device: FWW Patient is NWB right foot and FWB left with surgical shoe in place. Patient donns sock and surgical shoe set up only. Patient is to ambulate short distances only as to not compromise the healing of left foot. Exercises Supine Ex: Ankle pumps, Quad Set, Heel Slides, Straight leg raise Supine Reps: 20 Seated Therapy Exercises: Ankle pumps, Long arc quads, Hip flexion Seated Reps: 25 Assessment Patient is aware of his restrictions and is able to perform NWB right foot. Patient tolerated treatment and is up in recliner with needs met. PT Assisted Goals Assisted Goals PT Pulverizer Goals Time Frame: Sep 11, 2017 Transfers (B,C,W/C) (FIM): 6 Wheelchair (FIM): 6 Wheelchair distance (FIM): 3=150 ft Wheelchair Level of Assist: 6 PT Plan Treatment/Plan Treatment Plan: Continue Plan of Care Treatment Plan: Education, Functional Activity Samuel, Functional Strength, Gait , Safety, Therapeutic Exercise, Transfers Treatment Duration: Sep 11, 2017 Frequency: 6 times per week Estimated Hrs Per Day: .25 hour per day Patient and/or Family Agrees t: Yes Time/GCodes Time In: 947 Time Out: 1000 Total Billed Treatment Time: 13 Total Billed Treatment 1 visit FA 13 min EPIFANIO YA PT Sep 08, 2017 10:04
--- NOTE | 2017-09-08 10:43 | Discharge Inst-Skilled Nursing ---
Discharge Inst-Skilled NF Patient Instructions Patient Problems: DIABETES MELLITUS TYPE 2, UNCONTROLLED, CIRCULATORY COMPLICATIONS LIVER TRANSPLANT OSTEOMYELITIS Goal: IMPROVED STABILITY, ABILITY TO DO ADL'S Patient Instructions: PLEASE FOLLOW WITH YOUR THERAPISTS RECOMMENDED. Consult/Follow Up/Orders Follow up appt.: KADE BALES WILL SEE YOU ON HER NEXT [facility] ROUNDS. Skilled NF Admit to: [facility] Certifications SNF I certify that SNF services are required to be given on an inpatient basis because of the above named patient's need for senior care care on a continuing basis for the conditions(s) for which he/she was receiving inpatient hospital services prior to his/her transfer to the SNF. Fpc Facility Order: Nursing Services, Building Architectural Designer-Evaluate & Treat, Physical Therapy-Evaluate & Treat, Wound Care-Eval/Treat Discharge Diet: ADA Diet Daily Activity as Tolerated: Yes Discharge Medications New, Converted or Re-Newed RX: Transmitted to Pharmacy New Medications: Amoxicillin (Amoxicillin) 500 Mg Tablet 500 MG PO TID for 7 Days, #21 TAB 0 Refills Esthela Shah Sep 08, 2017 10:41 Copy Copies To 1: ESTHELA BAEZ APRN, MD Sep 08, 2017 10:41 am
[2017-09-08] MEDS ORDERED: IBUP-1780 PO (11:46)
[2017-09-08] MEDS ORDERED: INSU100V16 SQ (11:46)
[2017-09-08] MEDS ORDERED: ACET-77 PO (11:46)
[2017-09-08] MEDS ORDERED: INSU100V5 SQ (11:46)
== END 2017-09-08 13:50 | DRG 617 ==
LOC: EDUNIT# 23:49 → ER 23:57 → 4TH 09-01 01:00
PROVIDERS: ADMIT Pediatrics; ATTEND Pediatrics
PROC: 0Y6M0ZB Detachment at Right Foot, Partial 2nd Ray, Open Approach (ICD-10-PCS; 2017-09-04)
PROC: 0Y6M0ZC Detachment at Right Foot, Partial 3rd Ray, Open Approach (ICD-10-PCS; 2017-09-04)
PROC: 0Y6M0ZD Detachment at Right Foot, Partial 4th Ray, Open Approach (ICD-10-PCS; 2017-09-04)
PROC: 0Y6M0ZF Detachment at Right Foot, Partial 5th Ray, Open Approach (ICD-10-PCS; 2017-09-04)
PROC: 0Y6U0Z3 Detachment at Left 3rd Toe, Low, Open Approach (ICD-10-PCS; 2017-09-04)
PROC: 0Y6M0Z9 Detachment at Right Foot, Partial 1st Ray, Open Approach (ICD-10-PCS; principal; 2017-09-04 12:25)
DX: E11.69 Type 2 diabetes mellitus with other specified complication (principal); M86.171 Other acute osteomyelitis, right ankle and foot; M86.172 Other acute osteomyelitis, left ankle and foot; L03.115 Cellulitis of right lower limb; Z94.4 Liver transplant status; F15.288 Other stimulant dependence with other stimulant-induced disorder; L03.032 Cellulitis of left toe; L03.031 Cellulitis of right toe; R31.9 Hematuria, unspecified; E11.40 Type 2 diabetes mellitus with diabetic neuropathy, unspecified; E11.65 Type 2 diabetes mellitus with hyperglycemia; F12.90 Cannabis use, unspecified, uncomplicated; F10.20 Alcohol dependence, uncomplicated; I10 Essential (primary) hypertension; M19.91 Primary osteoarthritis, unspecified site; M54.9 Dorsalgia, unspecified; F41.9 Anxiety disorder, unspecified; F32.9 Major depressive disorder, single episode, unspecified; B95.8 Unspecified staphylococcus as the cause of diseases classified elsewhere; Z86.19 Personal history of other infectious and parasitic diseases; Z91.19 Patient's noncompliance with other medical treatment and regimen; Z89.411 Acquired absence of right great toe; Z89.421 Acquired absence of other right toe(s); Z89.422 Acquired absence of other left toe(s); Z89.431 Acquired absence of right foot; Z87.891 Personal history of nicotine dependence; Z23 Encounter for immunization
CPT/HCPCS: 36415; 73630; 73720; 74178; 80048; 80053; 80202; 80306; 80320; 81000; 82962; 83036; 83605; 83735; 85025; 85027; 85610; 85652; 85730; 86141; 87040; 87070; 87075; 87077; 87081; 87186; 87205; 93923; 96365

== ENCOUNTER → 2017-09-16 | Outpatient (CLI) | payer MEDICARE, MEDICAID ==
[~2017-09-16] MED LIST changes: +ACET-77 PO; +AMOX500T2 PO; +IBUP-1780 PO; +INSU100V16 SQ; +INSU100V5 SQ; +LANS15TA5 PO; +NF-MYC250C PO; +TACR0.5C PO; +TEST2.5G6 TD; +URSO250T11 PO
[2017-09-17 07:36] LABS: HEPATITIS C ANTIBODY C Reactive (Non-Reactiv)
== END ==
LOC: LAB 14:20
PROVIDERS: ATTEND Podiatrist Foot & Ankle Surgery
DX: M86.471 Chronic osteomyelitis with draining sinus, right ankle and foot (principal); M86.672 Other chronic osteomyelitis, left ankle and foot; Z20.6 Contact with and (suspected) exposure to human immunodeficiency virus [HIV]
CPT/HCPCS: 36415; 86703; 86803

== ENCOUNTER 2017-12-15 07:02 | Day surgery (SDC) | payer MEDICARE, MEDICAID ==
[~2017-12-15] VITALS: Ht 182.9 cm; Wt 108.9 kg
[~2017-12-15 07:02] MED LIST changes: +FURO40TA4 PO; +METF10002 PO; -METF500T4 PO; +METF500T5 PO
[2017-12-15] MEDS ORDERED: LACTATED RINGERS 1,000 ML IV ONE (07:06)
--- OUTSIDE RECORDS SUMMARY | 2017-12-15 07:06 | XMS REPORT | Clinical Summary ---
Author Author [place] [facility] Address Unknown Phone Unavailable Care Team Providers Care Insurance Marketing Specialist Name Role Phone Bronson Dahl MD PCP Source Comments Some departments are not documenting in the electronic medical record. If you do not see the information that you expected, contact Release of Information in the Health Information Management department at [phone] for further assistance in locating additional records.[place] Allergies Not on File Current Medications Not on file Active Problems Not on file Social History Tobacco Use Types Packs/Day Years Used Date Never Assessed Sex Assigned at Date Recorded Not on file Last Filed Vital Signs Not on file Plan of Treatment Health Maintenance Due Date Last Done Comments HEPATITIS C SCREENING 1950 PHYSICAL (COMPREHENSIVE) 11/15/1959 EXAM PERTUSSIS VACCINE 11/15/1963 HIV SCREENING 11/15/1967 TETANUS VACCINE 1969 COLORECTAL CANCER 2002 SCREENING SHINGLES VACCINE 2012 PREVNAR/PNEUMOVAX (#1) 2017 INFLUENZA VACCINE 05/03/2018 Results Not on filefrom Last 3 Months
--- OUTSIDE RECORDS SUMMARY | 2017-12-15 07:06 | XMS REPORT | Continuity of Care Document ---
Author Author [employer] Organization [facility] Address Unknown Phone Unavailable Care Team Providers Care Maintenance Coordinator Name Role Phone [employer] Unavailable Unavailable Problems Medications Allergies, Adverse Reactions, Alerts Immunizations Results Vital Signs Encounters Location Location Details Encounter Type Encounter Number Reason For Visit Attending Provider ADM Date DC Date Status Source O Active [facility] Procedures Plan of Care Social History Assessment and Plan Family History Advance Directives Functional Status
[2017-12-15] MEDS ORDERED: LACTATED RINGERS 1,000 ML IV STA (07:13)
[2017-12-15 07:32] VITALS: BP 138/88
[2017-12-15 07:59] LABS: AMPHETAMINE SCREEN, URINE NEGATIVE (NEGATIVE); BARBITURATE SCREEN URINE NEGATIVE (NEGATIVE); BENZODIAZEPINES SCREEN URINE NEGATIVE (NEGATIVE); CANNABINOID SCREEN, URINE NEGATIVE (NEGATIVE); COCAINE SCREEN URINE NEGATIVE (NEGATIVE); METHADONE STAT NEGATIVE (NEGATIVE); METHAMPHETAMINE SCREEN URINE S POSITIVE (NEGATIVE); OPIATE SCREEN URINE NEGATIVE (NEGATIVE); OXYCODONE STAT NEGATIVE (NEGATIVE); PROPOXYPHENE STAT NEGATIVE (NEGATIVE); TRICYCLIC ANTIDEPRESSANTS SCRE NEGATIVE (NEGATIVE)
== END 2017-12-15 08:15 | disposition home or self-care (01) ==
LOC: ENDO 07:02
PROVIDERS: ATTEND Surgery
DX: Z12.11 Encounter for screening for malignant neoplasm of colon (principal); F15.90 Other stimulant use, unspecified, uncomplicated; Z53.09 Procedure and treatment not carried out because of other contraindication; I10 Essential (primary) hypertension; Z79.84 Long term (current) use of oral hypoglycemic drugs; Z79.899 Other long term (current) drug therapy
CPT/HCPCS: 80306; 82962

== ENCOUNTER 2019-04-21 13:45 | Inpatient (IN) | payer MEDICAID, MEDICARE ==
[~2019-04-21] VITALS: Ht 182.2 cm; Wt 95.4 kg
[~2019-04-21 13:45] MED LIST changes: +METF-397 PO; +METF-399 PO; -METF10002 PO; -METF500T5 PO; +TEST2.5G10 TD; -TEST2.5G6 TD
[2019-04-21] MEDS ORDERED: morphine INJ 10 MG/ML 1ML (SYR OR VIAL) IV STA (13:58)
[2019-04-21 14:06] LABS: BASOPHILS % (AUTO) 0 % (0-10); EOSINOPHILS # (AUTO) 0.1 10^3/uL (0.0-0.3); EOSINOPHILS % (AUTO) 2 % (0-10); HEMATOCRIT 41 % (40-54); HEMOGLOBIN 14.1 G/DL (13.3-17.7); LYMPHOCYTES # (AUTO) 1.5 X 10^3 (1.0-4.0); LYMPHOCYTES % (AUTO) 24 % (12-44); MEAN CORPUSCULAR HEMOGLOBIN 30 PG (25-34); MEAN CORPUSCULAR HGB CONC 35 G/DL (32-36); MEAN CORPUSCULAR VOLUME 86 FL (80-99); MEAN PLATELET VOLUME 11.8 FL (7.4-10.4); MONOCYTES # (AUTO) 0.6 X 10^3 (0.0-1.0); MONOCYTES % (AUTO) 9 % (0-12); NEUTROPHILS % (AUTO) 65 % (42-75); PLATELET COUNT 323 10^3/uL (130-400); RED CELL DISTRIBUTION WIDTH 13.2 % (10.0-14.5); WHITE BLOOD COUNT 6.2 10^3/uL (4.3-11.0)
[2019-04-21 14:16] LABS: INR 0.9 (0.8-1.4); PROTHROMBIN TIME PATIENT 12.9 SEC (12.2-14.7)
--- NOTE | 2019-04-21 14:16 | ED Cardiac General ---
History of Present Illness General Chief Complaint: Chest Pain Stated Complaint: CHEST PAIN Nursing Triage Note: PT TO [facility] BY [facility] WITH COMPLAINT OF CHEST PAIN. STATES PAIN STARTED LAST NIGHT. STATES IS FEELS LIKE PRESSURE. WAS GIVEN 324 MG ASA AND 1 NITRO BY EMS. Source: patient Exam Limitations: no limitations History of Present Illness Date Seen by Provider: Apr 21, 2019 Time Seen by Provider: 14:14 Initial Comments To ER with reports of chest pain. This began last night, has been constant since then. Feels like pressure, last night pain was 10 out 10, this morning 5 out of 10. He was given 2 sublingual nitroglycerin in the annulus on the way to the hospital which reduced his pain to 3 out of 10 but unfortunately also dropped his blood pressure into the 80s systolic. Reticulocyte noted questionable ST segment elevation in V1 through V3. He is a diabetic, history of right toe amputations in the past, last methamphetamine use 3 days ago he states. He was also given aspirin 324 mg in route to the hospital Timing/Duration: constant Severity: moderate Activities at Onset: none NTG SL COMMERCIAL LOAN COLLECTION OFFICER: Yes ASA po COMMERCIAL LOAN COLLECTION OFFICER: Yes Associated Systoms: Chest Pain Allergies and Home Medications Allergies Coded Allergies: No Known Drug Allergies (Unverified , 12/14/17) Home Medications No Active Prescriptions or Reported Meds Patient Home Medication List Home Medication List Reviewed: Yes Review of Systems Review of Systems Constitutional: see HPI EENTM: No Symptoms Reported Respiratory: No Symptoms Reported; Denies Orthopnea, Denies Shortness of Air Cardiovascular: See HPI, Chest Pain Gastrointestinal: No Symptoms Reported Genitourinary: No Symptoms Reported Musculoskeletal: no symptoms reported Skin: no symptoms reported Psychiatric/Neurological: No Symptoms Reported Endocrine: No Symptoms Reported Past Ogjtncp-Ijpqrf-Airvgw Hx Patient Social History Alcohol Use: Occasionally Uses Number of Drinks Today: AA Alcohol Beverage of Choice: Beer Recreational Drug Use: Yes (METH) Drug of Choice: HX +IV METH AND COCAINE, THC USE. NOW SMOKES METH AND OCCASIONALLY THC Smoking Status: Former Smoker Type Used: Cigarettes Former Smoker, Quit: May 08, 1990 2nd Hand Smoke Exposure: No Recent Foreign Travel: No Contact w/Someone Who Travel: No Recent Infectious Disease Expo: No Recent Hopitalizations: No Physical Abuse: No Sexual Abuse: No Mistreated: No Fear: No Immunizations Up To Date Tetanus Booster (TDap): Unknown Date of Pneumonia Vaccine: Aug 03, 2011 Date of Influenza Vaccine: Sep 01, 2017 Seasonal Allergies Seasonal Allergies: No Past Medical History Surgeries: Yes (several sx on both feet with toes amputed) Appendectomy, Gallbladder, Liver Transplant, Orthopedic, Tonsillectomy Respiratory: No Currently Using CPAP: No Currently Using BIPAP: No Cardiac: No Hypertension Neurological: Yes (NEUROPATHY IN FEET) Neuropathy Reproductive Disorders: No Sexually Transmitted Disease: No HIV/AIDS: No Genitourinary: Yes Prostate Problems Gastrointestinal: Yes (HEPATITIS C--S/P INTERFERON TREATMENT; LIVER TRANSPLANT 2002) Liver Disease/Jaundice, Hepatitis, Cirrhosis Musculoskeletal: Yes (TOES AMPUTATED. CELLULITIS/OSTEOMYELITIS OF FEET/TOES) Amputee, Arthritis, Chronic Back Pain Endocrine: Yes (NTE-HECRCASDF-YVPP NOT CHECK BLOOD SUGARS EVERDAY) Diabetes, Non-Insulin dep HEENT: Yes (EDENTULOUS) Loss of Vision: Left Hearing Impairment: Denies Cancer: No Psychosocial: No (NEVER TAKEN MEDS) Depression Integumentary: Yes (CYST LEFT NECK; CELLULITIS/OSTEOMYELITIS OF FEET) Blood Disorders: No Adverse Reaction/Blood Tranf: No (HAS HAD BLOOD WITH NO REACTION) Family Medical History No Pertinent Family Hx Physical Exam Vital Signs Vital Signs - First Documented Capillary Refill : Less Than 3 Seconds Height, Weight, BMI Height: 6'0.00" Weight: 240lbs. 0.0oz. 108.582566sg; 28.00 BMI Method:Stated General Appearance: No Apparent Distress, WD/WN Respiratory: Normal Breath Sounds, No Accessory Muscle Use, No Respiratory Distress Cardiovascular: Regular Rate, Rhythm, Normal Peripheral Pulses Gastrointestinal: Non Tender, Soft Neurologic/Psychiatric: Alert, Oriented x3 Skin: Normal Color, Warm/Dry Progress/Results/Core Measures Results/Orders Lab Results Laboratory Tests Test 04/21/19 13:53 Range/Units White Blood Count 6.2 4.3-11.0 10^3/uL Red Blood Count 4.75 4.35-5.85 10^6/uL Hemoglobin 14.1 13.3-17.7 G/DL Hematocrit 41 40-54 % Mean Corpuscular Volume 86 80-99 FL Mean Corpuscular Hemoglobin 30 25-34 PG Mean Corpuscular Hemoglobin Concent 35 32-36 G/DL Red Cell Distribution Width 13.2 10.0-14.5 % Platelet Count 323 130-400 10^3/uL Mean Platelet Volume 11.8 H 7.4-10.4 FL Neutrophils (%) (Auto) 65 42-75 % Lymphocytes (%) (Auto) 24 12-44 % Monocytes (%) (Auto) 9 0-12 % Eosinophils (%) (Auto) 2 0-10 % Basophils (%) (Auto) 0 0-10 % Neutrophils # (Auto) 4.0 1.8-7.8 X 10^3 Lymphocytes # (Auto) 1.5 1.0-4.0 X 10^3 Monocytes # (Auto) 0.6 0.0-1.0 X 10^3 Eosinophils # (Auto) 0.1 0.0-0.3 10^3/uL Basophils # (Auto) 0.0 0.0-0.1 10^3/uL Prothrombin Time 12.9 12.2-14.7 SEC INR Comment 0.9 0.8-1.4 Activated Partial Thromboplast Time 28 24-35 SEC Sodium Level 135 135-145 MMOL/L Potassium Level 4.3 3.6-5.0 MMOL/L Chloride Level 102 98-107 MMOL/L Carbon Dioxide Level 21 21-32 MMOL/L Anion Gap 12 5-14 MMOL/L Blood Urea Nitrogen 13 7-18 MG/DL Creatinine 0.80 0.60-1.30 MG/DL Estimat Glomerular Filtration Rate > 60 BUN/Creatinine Ratio 16 Glucose Level 292 H 70-105 MG/DL Calcium Level 9.1 8.5-10.1 MG/DL Corrected Calcium 9.4 8.5-10.1 MG/DL Magnesium Level 1.7 1.6-2.4 MG/DL Total Bilirubin 0.5 0.1-1.0 MG/DL Aspartate Amino Transf (AST/SGOT) 26 5-34 U/L Alanine Aminotransferase (ALT/SGPT) 30 0-55 U/L Alkaline Phosphatase 118 40-136 U/L Myoglobin 56.6 10.0-92.0 NG/ML Troponin I 0.147 H <0.028 NG/ML Total Protein 7.4 6.4-8.2 GM/DL Albumin 3.6 3.2-4.5 GM/DL My Orders Orders - GERONIMO GONGORA ATHLETIC COORDINATOR Cbc With Automated Diff (04/21/19 13:58) Magnesium (04/21/19 13:58) Chest 1 View, Ap/Pa Only (04/21/19 13:58) Ekg Tracing (04/21/19 13:58) Cardiac Profile 1 (04/21/19 13:58) Comprehensive Metabolic Panel (04/21/19 13:58) Myoglobin Serum (04/21/19 13:58) Protime With Inr (04/21/19 13:58) Partial Thromboplastin Time (04/21/19 13:58) O2 (04/21/19 13:58) Monitor-Rhythm Ecg Trace Only (04/21/19 13:58) Lipid Panel (04/22/19 06:00) Ed Iv/Invasive Line Start (04/21/19 13:58) Morphine Injection (Morphine Injection (04/21/19 13:58) Drug Screen Stat (Urine) (04/21/19 14:24) Enoxaparin Injection (Lovenox Injection) (04/21/19 14:45) Medications Given in ED Current Medications Medications Dose Ordered Sig/Merrick Route Start Time Stop Time Status Last Admin Dose Admin Enoxaparin Sodium 100 mg ONCE ONCE SC 04/21/19 14:45 04/21/19 14:46 DC 04/21/19 15:42 100 MG Vital Signs/I&O 04/21/19 04/21/19 13:45 13:45 Pulse 84 Resp 14 B/P (MAP) 130/65 (86) Pulse Ox 96 O2 Delivery Room Air Room Air Blood Pressure Mean: 86 Diagnostic Imaging Comments NAME: ERIBERTO RAMEY [facility]key [facility] REC#: [id number] PT STATUS: REG ER : 1950 PHYSICIAN: GERONIMO GNOGORA ATHLETIC COORDINATOR ADMIT DATE: 04/21/19/ER Draft Date of Exam:04/21/19 CHEST 1 VIEW, AP/PA ONLY INDICATION: Chest pain starting last night, pressure. TECHNIQUE: Single view chest at 2:25 PM. CORRELATION STUDY: 12/01/2008 FINDINGS: There is the presence of cardiac enlargement, appearing change from prior study. Vasculature is also slightly more prominent. Lung dickson demonstrate likely changes reflecting chronic lung disease. Mildly prominent interstitial markings. No consolidating infiltrate. No pneumothorax. IMPRESSION: 1. Development of cardiac enlargement and mild vascular prominence suggestive of a component of mild vascular congestion. 2. Likely chronic changes about the lung parenchyma. Dictated on workstation # [id number] Dict: 04/21/19 1443 Trans: 04/21/19 1446 [facility] [id number] Interpreted by: QIANA CALDERA DO Electronically signed by: Departure Communication (Admissions) Time/Spoke to Admitting Phy: 15:13 Time/Spoke to Consulting Phy: 15:[address] Rodriguez who agrees to consult EKG shows questionable ST segment elevation in V3 only, biphasic T-wave in V3 only, no reciprocal changes. 1453 we are on admission diversion here, I spoke with Dr. Rodriguez regarding the EKG and patient presentation, agrees that there is no indication for an emergent cardiac catheterization, as such patient will be transferred to [place]. I spoke with Dr. Farfan from [facility] cardiology agrees to accept the patient, awaiting bed assignment now. Patient is agreeable with this plan. Chest pain- free. 1512- apparently we have a bed here now. I will cancel arrangements already made in [place]. Impression Primary Impression: NSTEMI (non-ST elevated myocardial infarction) Additional Impression: Chest pain Qualified Codes: R07.9 - Chest pain, unspecified Disposition: ADMITTED INPATIENT Condition: Stable Admissions Decision to Admit Reason: Admit from ER (General) Decision to Admit/Date: Apr 21, 2019 Time/Decision to Admit Time: 22:38 Departure-Patient Inst. Decision time for Depature: 14:52 Referrals: SUSAN QUIÑONEZ MD (PCP/Family) Primary Care Physician Scripts No Active Prescriptions or Reported Meds GERONIMO GONGORA APRN Apr 21, 2019 14:16
[2019-04-21 14:20] LABS: ALANINE AMINOTRANSFERASE 30 U/L (0-55); ALKALINE PHOSPHATASE 118 U/L (40-136); BILIRUBIN,TOTAL 0.5 MG/DL (0.1-1.0); BUN/CREATININE RATIO 16; CALCIUM 9.1 MG/DL (8.5-10.1); CARBON DIOXIDE 21 MMOL/L (21-32); CHLORIDE 102 MMOL/L (98-107); GFR ESTIMATED > 60; GLUCOSE 292 MG/DL (70-105); MAGNESIUM 1.7 MG/DL (1.6-2.4); POTASSIUM 4.3 MMOL/L (3.6-5.0); SODIUM 135 MMOL/L (135-145)
[2019-04-21 14:21] LABS: ALBUMIN 3.6 GM/DL (3.2-4.5); TOTAL PROTEIN 7.4 GM/DL (6.4-8.2)
[2019-04-21] MEDS ORDERED: ENOXAPARIN 100 MG/1 ML (LOVENOX) SYR SC ONE (14:45)
--- NOTE | 2019-04-21 14:47 | Diagnostic Imaging Report ---
INDICATION: Chest pain starting last night, pressure. TECHNIQUE: Single view chest at 2:25 PM. CORRELATION STUDY: 12/01/2008 FINDINGS: There is the presence of cardiac enlargement, appearing change from prior study. Vasculature is also slightly more prominent. Lung dickson demonstrate likely changes reflecting chronic lung disease. Mildly prominent interstitial markings. No consolidating infiltrate. No pneumothorax. IMPRESSION: 1. Development of cardiac enlargement and mild vascular prominence suggestive of a component of mild vascular congestion. 2. Likely chronic changes about the lung parenchyma. Dictated by: Dictated on workstation # [id number]
[2019-04-21 15:53] VITALS: BP 140/81
[2019-04-21 15:55] VITALS: BP 140/81
[2019-04-21] MEDS ORDERED: NITROGLYCERIN 0.4 MG SL TABS BTL 25'S SL PRN (16:00)
[2019-04-21] MEDS ORDERED: morphine INJ 4 MG/ML 1 ML (VIAL/SYRINGE) IV PRN (16:00)
[2019-04-21] MEDS: inSUlin ASPART (NovoLOG) 1 UNIT/0.01 ML (CHARGE PER UNIT) SC SCH ×2 (16:00→21:14)
[2019-04-21] MEDS ORDERED: CATHETER FLUSH 10 ML SYR IV PRN (16:00)
[2019-04-21] MEDS ORDERED: LACTATED RINGERS 1,000 ML IV SCH (16:00)
--- NOTE | 2019-04-21 16:00 | NUR ---
ERIBERTO RAMEY admitted to room 430-1, with an admitting diagnosis of C.P , on 04/21/19 from ER via W/C, accompanied by STAFF.ERIBERTO RAMEY introduced to surroundings, call light, bed controls, phone, TV, temperature control, lights, meal times, smoking policy, visitor policy, side rail policy, bathrooms and showers. Patient Rights given to patient in the handbook.ERIBERTO RAMEY verbalizes understanding that [facility] is not responsible for the loss or damage to any personal effects or valuables that are kept in the patients posession during their hospitalization. The following Patient Care Plans were discussed with the PT: Discharge Planning, PAIN CONTROL,IV AND IV THERAPY, and TESTS AND PROCEDURES. ERIBERTO RAMEY verbalizes understanding of Interdisciplinary Patient Education. Patient and/or family were informed about the Rapid Response Team and its purpose.
[2019-04-21] MEDS ORDERED: NS IV 1000 ML 1,000 ML ONE (16:17)
[2019-04-21] MEDS ORDERED: MIDAZOLAM 5 MG/5 ML (VERSED) VIAL ONE (16:17)
[2019-04-21] MEDS ORDERED: HEParin (CATH LAB) 2,000 ML IV ONE (16:17)
[2019-04-21] MEDS ORDERED: fentaNYL INJECTION 100 MCG/2 ML AMP ONE (16:18)
[2019-04-21] MEDS ORDERED: LIDOCAINE 1% INJ 20 ML 20 ML VIAL ONE (16:18)
--- NOTE | 2019-04-21 16:23 | NUR ---
PATIENT STATES HE DOES NOT CURRENTLY TAKE ANY MEDICATIONS. HE USED TO TAKE SOME BUT HAS NOT FOR AWHILE. HE TAKES NOTHING OTC EITHER. I DID CALL [facility] AND THEY VERIFIED THEY HAVE NOT FILLED ANYTHING FOR HIM SINCE DECEMBER AND IT WAS AN ANTIBIOTIC.
--- NOTE | 2019-04-21 16:31 | Consultation-Cardiology ---
HPI-Cardiology Cardiology Consultation Date of Consultation 04/21/19 Date of Admission Time Seen by Provider: 16:27 Indication: chest pain HPI 68 years old gentleman with history of hypertension, hyperlipidemia, history of liver transplant, was in his usual state of health until yesterday evening when he started having chest pain described it as dull in nature in the retrosternal area persisted, stayed at home until today and came to the emergency room with active chest pain, responded to nitroglycerin and morphine, currently feeling better, had elevated troponin level and minimal EKG changes. Denied any similar episode in the past denied any previous history of coronary artery disease Home Medications & Allergies Allergies: Coded Allergies: No Known Drug Allergies (Unverified , 12/14/17) Home Medication List Reviewed: Yes VKT-Fsgiyx-Yyafpp Hx Patient Social History Alcohol Use: Occasionally Uses Recreational Drug Use: Yes (METH) Drug of Choice: HX +IV METH AND COCAINE, THC USE. NOW SMOKES METH AND OCCASIONALLY THC Smoking Status: Former Smoker Former smoker/When Quit: Mar 03, 2002 Type Used: Cigarettes 2nd Hand Smoke Exposure: No Recent Foreign Travel: No Recent Infectious Disease Expo: No Recent Hopitalizations: No Immunizations Up To Date Tetanus Booster (TDap): Unknown Date of Pneumonia Vaccine: Aug 03, 2011 Date of Influenza Vaccine: Sep 01, 2017 Past Medical History Discussed below Family Medical History Significant Family History: No Pertinent Family Hx Family History: Myocardial infarction 19 FATHER Review of Systems-General Review of Systems Constitutional: see HPI, malaise, weakness EENTM: see HPI Respiratory: see HPI; No cough; dyspnea on exertion; No hemoptysis, No orthopnea, No phlegm, No short of breath, No stridor, No wheezing, No other Cardiovascular: see HPI, chest pain; No edema, No Hx of Intervention, No palpit ations, No syncope, No vascular heart diseas, No other Gastrointestinal: no symptoms reported, see HPI Genitourinary: see HPI Musculoskeletal: no symptoms reported, see HPI Skin: no symptoms reported, see HPI Psychiatric/Neurological: No Symptoms Reported, See HPI Reviewed Test Results Reviewed Test Results Lab Laboratory Tests Test 04/21/19 13:53 Range/Units White Blood Count 6.2 4.3-11.0 10^3/uL Red Blood Count 4.75 4.35-5.85 10^6/uL Hemoglobin 14.1 13.3-17.7 G/DL Hematocrit 41 40-54 % Mean Corpuscular Volume 86 80-99 FL Mean Corpuscular Hemoglobin 30 25-34 PG Mean Corpuscular Hemoglobin Concent 35 32-36 G/DL Red Cell Distribution Width 13.2 10.0-14.5 % Platelet Count 323 130-400 10^3/uL Mean Platelet Volume 11.8 H 7.4-10.4 FL Neutrophils (%) (Auto) 65 42-75 % Lymphocytes (%) (Auto) 24 12-44 % Monocytes (%) (Auto) 9 0-12 % Eosinophils (%) (Auto) 2 0-10 % Basophils (%) (Auto) 0 0-10 % Neutrophils # (Auto) 4.0 1.8-7.8 X 10^3 Lymphocytes # (Auto) 1.5 1.0-4.0 X 10^3 Monocytes # (Auto) 0.6 0.0-1.0 X 10^3 Eosinophils # (Auto) 0.1 0.0-0.3 10^3/uL Basophils # (Auto) 0.0 0.0-0.1 10^3/uL Prothrombin Time 12.9 12.2-14.7 SEC INR Comment 0.9 0.8-1.4 Activated Partial Thromboplast Time 28 24-35 SEC Sodium Level 135 135-145 MMOL/L Potassium Level 4.3 3.6-5.0 MMOL/L Chloride Level 102 98-107 MMOL/L Carbon Dioxide Level 21 21-32 MMOL/L Anion Gap 12 5-14 MMOL/L Blood Urea Nitrogen 13 7-18 MG/DL Creatinine 0.80 0.60-1.30 MG/DL Estimat Glomerular Filtration Rate > 60 BUN/Creatinine Ratio 16 Glucose Level 292 H 70-105 MG/DL Calcium Level 9.1 8.5-10.1 MG/DL Corrected Calcium 9.4 8.5-10.1 MG/DL Magnesium Level 1.7 1.6-2.4 MG/DL Total Bilirubin 0.5 0.1-1.0 MG/DL Aspartate Amino Transf (AST/SGOT) 26 5-34 U/L Alanine Aminotransferase (ALT/SGPT) 30 0-55 U/L Alkaline Phosphatase 118 40-136 U/L Myoglobin 56.6 10.0-92.0 NG/ML Troponin I 0.147 H <0.028 NG/ML Total Protein 7.4 6.4-8.2 GM/DL Albumin 3.6 3.2-4.5 GM/DL Physical Exam Physical Exam Vital Signs Vital Signs - First Documented 04/21/19 15:53 Temp 36.2 Capillary Refill : Less Than 3 Seconds Height, Weight, BMI Height: 6'0.00" Weight: 240lbs. 0.0oz. 108.527035ld; 28.73 BMI Method:Stated General Appearance: No Apparent Distress, WD/WN Eyes: Bilateral Eye Normal Inspection, Bilateral Eye PERRL, Bilateral Eye EOMI HEENT: PERRL/EOMI, TMs Normal, Normal ENT Inspection, Pharynx Normal, Moist Mucous Membranes Neck: Full Range of Motion, Normal Inspection, Non Tender, Supple, Carotid Bruit Respiratory: Normal Breath Sounds, No Accessory Muscle Use, No Respiratory Distress Cardiovascular: Regular Rate, Rhythm, Normal Peripheral Pulses Gastrointestinal: Non Tender, Soft Back: Normal Inspection, No CVA Tenderness, No Vertebral Tenderness Extremity: Normal Capillary Refill, Normal Inspection, Normal Range of Motion, Non Tender, No Calf Tenderness, No Pedal Edema Neurologic/Psychiatric: Alert, Oriented x3 Skin: Normal Color, Warm/Dry Lymphatic: No Adenopathy A/P-Cardiology Admission Diagnosis Non-ST elevation myocardial infarction Coronary artery disease Hypertension Hyperlipidemia Assessment/Plan Non-ST elevation myocardial infarction, subacute MS, had chest pain yesterday and this morning, responded to nitroglycerin, nondiagnostic EKG changes with elevated troponin level. I am planning to proceed with cardiac catheterization possible PTCA Coronary artery disease, planning to proceed with cardiac catheterization Hypertension, status post hypotensive episode after receiving nitroglycerin and morphine. Feeling better at this time. Continue to monitor blood pressure Hyperlipidemia, history of liver transplant, continue to monitor History of liver failure with liver transplant done in 2002. 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
--- NOTE | 2019-04-21 16:32 | Cardiac Procedure Note-CS/ASA ---
Pre-Procedure Note Pre-Op Procedure Note H&P Reviewed The H&P was reviewed, patient examined and no changes noted. Date H&P Reviewed: Apr 21, 2019 Time H&P Reviewed: 16:32 Conscious Sedation Pre-Proced Time 16:32 ASA Score 3 For ASA 3 and 4: Consider anesthesia and medical clearance. Also, for patients with a history of failed moderate sedation consider anesthesia. Airway Lungs Heart ASA score ASA 1: a normal healthy patient ASA 2: a patient with a mild systemic disease (mid diabetes, controlled hypertension, obesity x ASA 3: a patient with a severe systemic disease that limits activity (angina, COPD, prior Myocardial infarction) ASA 4: a patient with an incapacitating disease that is a constant threat to life (CHF, renal failure) ASA 5: a moribund patient not expected to survive 24 hrs. (ruptured aneurysm) ASA 6: a declared brain- patient whose organs are being harvested. For emergent operations, add the letter E after the classification Mallampati Classification Grade 3 Sedation Plan Analgesia, Amnesia, Plan communicated to team members, Discussed options with patient/fam, Discussed risks with patient/fam The patient is an appropriate candidate to undergo the planned procedure, sedation, and anesthesia. The patient immediately re-assessed prior to indication. SAHARA LONG MD Apr 21, 2019 4:32 pm
--- NOTE | 2019-04-21 16:40 | NUR ---
TO HEART AVIONICS MECHANIC PER BED.
[2019-04-21 16:53] LABS: AMPHETAMINE SCREEN, URINE POSITIVE (NEGATIVE); BARBITURATE SCREEN URINE NEGATIVE (NEGATIVE); BENZODIAZEPINES SCREEN URINE NEGATIVE (NEGATIVE); CANNABINOID SCREEN, URINE NEGATIVE (NEGATIVE); COCAINE SCREEN URINE NEGATIVE (NEGATIVE); METHADONE STAT NEGATIVE (NEGATIVE); METHAMPHETAMINE SCREEN URINE S POSITIVE (NEGATIVE); OPIATE SCREEN URINE POSITIVE (NEGATIVE); OXYCODONE STAT NEGATIVE (NEGATIVE); PROPOXYPHENE STAT NEGATIVE (NEGATIVE); TRICYCLIC ANTIDEPRESSANTS SCRE NEGATIVE (NEGATIVE)
[2019-04-21] MEDS ORDERED: HEParin 1000 UNIT/ML (10ML VIAL) FOR BOLUS ONE (16:56)
[2019-04-21] MEDS ORDERED: ADENOSINE 3 MG/1 ML (ADENOSCAN) 30ML VIAL IV ONE (16:56)
[2019-04-21] MEDS ORDERED: NITRO DRIP 25000 MCG/D5W 250 ML IV ONE (17:17)
[2019-04-21] MEDS ORDERED: EPTIFIBATIDE BOLUS 10 ML IV ONE (17:21)
[2019-04-21] MEDS: NS IV 1000 ML 1,000 ML IV SCH ×3 (17:34→21:15)
[2019-04-21] MEDS ORDERED: PATIENT MAY USE OWN MEDS, ALL PO SCH (17:45)
--- NOTE | 2019-04-21 17:47 | Cardiac Cath Report ---
Cardiac Cath Report Physician (s)/Senior Data Warehouse Developer (s) Physician SAHARA LONG MD Pre-Procedure Diagnosis Pre-Procedure Diagnosis: coronary artery disease, non-ST elevation MA Post-Procedure Note Procedure Start Date: Apr 21, 2019 Name of Procedure: Left heart catheterization Balloon angioplasty and stenting to the mid and proximal right coronary artery Findings/Procedure Note PROCEDURE NOTE: 68 years old gentleman with history of liver transplant, admitted with acute chest pain, subacute myocardial infarction, decided to proceed with cardiac catheterization possible PTCA after discussing the management plan with the patient. After explaining the procedure to the patient, all pros and cons were explained, all questions were answered. The patient signed the consent and then he was placed on the cardiac catheterization laboratory. Groin was prepped SL fashion local anesthesia was used. Sheath placed in the right femoral artery. Prabhjot right and left catheter were used to access the coronary system. Pigtail was used to access the left ventricular cavity. Left ventriculogram was done Patient was given total of 7000 units of heparin, I was initially planning to do FFR to the LAD, had difficulty with a hemodynamics on the Media Analytics Manager monitor, decided to postpone the FFR of the LAD, has severe stenosis in the proximal and midright coronary artery subtotal occlusion in the midright coronary artery, JR guide was advanced to the right coronary artery BMW wire was advanced through the right coronary artery and parked distally with difficulty to cross the lesion then predilated location with 2.520 mm balloon and then I proceeded with deployment of 2.523 mm Ita stent expanded to 2.81 mm 15 haily using the same balloon for the stent I dilated the proximal lesion then proceeded with deployment of 2.7518 mm expanded to 3.05 after using noncompliant balloon to the proximal portion, distally the stent is 2.91 with excellent results no residual stenosis At the end of the procedure the sheath was removed. Closure device was used FINDINGS: Hemodynamics LV 89/6, end-diastolic pressure of 6 Aorta 90/59 mean of 37 ANATOMY: Left Main is free of obstructive disease Left Anterior Descending is tortuous artery with questionable borderline lesion in the mid LAD, will need to have FFR done to the LAD at a later point Left Circumflex is moderate in size with mild disease nonobstructive disease Right Coronory Artery is moderate in size with severe stenosis proximally and subtotal occlusion at the midportion, complex intervention with deployment of 2 stents at the midportion 2.523 mm Ita stent expanded to 2.81 mm, approximately 2.75 time 18 mm Ita stent expanded proximally to 3.05 and distally 2.91 with excellent results LV Gram was done showing the left ventricle is dilated with diffuse left ventricular hypokinesia estimated ejection fraction 30 percent CONCLUSION: 1. Severe multisegment stenosis in the right coronary artery with subtotal occlusion at the midportion, complex intervention with deployment of 2 stents proximally 2.75 x 18 mm expanded to 3.05 proximally and 2.91 at the midportion, followed without overlapping between the stent by Ita 2.523 mm expanded to 2.81 mm with excellent results 2. Tortuous LAD system with borderline lesion, patient will need to have FFR to the LAD 3. Dilated left ventricle with diffuse left ventricular hypokinesia with estimated ejection fraction 30 percent DISCUSSION AND RECOMMENDATION: Patient was started on aspirin and Brilinta, we will need to have a LifeVest, start beta blockers and ACEI if he can tolerate the medication Anesthesia Type: Conscious Sedation Estimated blood loss (mL): 35 ml Contrast Amount: 180 ml Total Radiation Dose: 1603 mGy Post-Procedure Diagnosis Post-operative diagnosis: Non-ST elevation myocardial infarction Congestive heart failure, acute left ventricular systolic dysfunction, ischemic cardiomyopathy Hypertension Hyperlipidemia SAHARA LONG MD Apr 21, 2019 17:47
--- NOTE | 2019-04-21 18:10 | NUR ---
PT TO ROOM ICU 3 VIA BED ACCOMPANIED BY ASSEMBLY LEAD PERSON STAFF AND PT FAMILY. BEDSIDE REPORT RECEIVED FROM ASSEMBLY LEAD PERSON STAFF. PT RIGHT GROIN SITE CHECKED, PT DENIES C/O OR NEEDS. CALL LIGHT WITHIN REACH. WILL CONTINUE TO MONITOR.
[2019-04-21 19:00] VITALS: BP 126/82
[2019-04-21 20:00] VITALS: BP 126/82
[2019-04-21] MEDS: TICAGRELOR 90 MG TABLET (BRILINTA) PO SCH (21:14)
[2019-04-21 22:00] VITALS: BP 126/82
[2019-04-21] MEDS ORDERED: CATHETER FLUSH 10 ML SYR IV SCH (22:00)
[2019-04-22] VITALS: BP 97/57
[2019-04-22 03:44] LABS: HEMOGLOBIN 11.9 G/DL (13.3-17.7); MEAN PLATELET VOLUME 11.8 FL (7.4-10.4); RED CELL DISTRIBUTION WIDTH 13.6 % (10.0-14.5)
[2019-04-22] MEDS: NS IV 1000 ML 1,000 ML IV SCH ×2 (03:46→12:53)
[2019-04-22 04:00] VITALS: BP 124/69
[2019-04-22] MEDS ORDERED: ENOXAPARIN 100 MG/1 ML (LOVENOX) SYR SC SCH (04:00)
[2019-04-22 04:09] LABS: ALANINE AMINOTRANSFERASE 26 U/L (0-55); ALBUMIN 2.9 GM/DL (3.2-4.5); ALKALINE PHOSPHATASE 115 U/L (40-136); BILIRUBIN,TOTAL 0.4 MG/DL (0.1-1.0); BUN/CREATININE RATIO 17; CALCIUM 8.1 MG/DL (8.5-10.1); CARBON DIOXIDE 24 MMOL/L (21-32); CHLORIDE 105 MMOL/L (98-107); CHOLESTEROL 134 MG/DL (< 200); CREATININE SERUM 0.77 MG/DL (0.60-1.30); GFR ESTIMATED > 60; GLUCOSE 273 MG/DL (70-105); HDL CHOLESTEROL 24 MG/DL (40-60); POTASSIUM 3.4 MMOL/L (3.6-5.0); SODIUM 136 MMOL/L (135-145); TRIGLYCERIDES 169 MG/DL (<150); VLDL CHOLESTEROL 34 MG/DL (5-40)
[2019-04-22] MEDS: inSUlin ASPART (NovoLOG) 1 UNIT/0.01 ML (CHARGE PER UNIT) SC SCH ×2 (06:17→11:42)
--- NOTE | 2019-04-22 07:46 | Cardiology Progress Note ---
Subjective Date Seen by Provider: Apr 22, 2019 Time Seen by Provider: 07:44 Subjective/Events-last exam Patient is laying down in bed, feeling better, no chest pain, groin is healing well Review of Systems General: No Chills, No Night Sweats, No Fatigue, No Malaise, No Appetite, No Other HEENT: No Head Aches, No Visual Changes, No Eye Pain, No Ear Pain, No Dysphasia , No Sinus Congestion, No Post Nasal Drip, No Sore Throat, No Other Pulmonary: No Dyspnea, No Cough, No Pleuritic Chest Pain, No Other Cardiovascular: No: Chest Pain, Palpitations, Orthopnea, Paroxysmal Noc. Dyspnea, Edema, Lt Headedness, Other Objective-Cardiology Exam Last Set of Vital Signs Vital Signs 04/21/19 04/22/19 04/22/19 15:55 03:49 04:00 Temp 36.5 Pulse 73 Resp 21 B/P (MAP) 124/69 (87) Pulse Ox 100 O2 Delivery Room Air Capillary Refill : Less Than 3 Seconds I&O Intake and Output 04/22/19 00:00 Intake Total 1810 ml Output Total 300 ml Balance 1510 ml Intake Oral 810 ml IV Total 1000 ml Output Urine Total 300 ml Daily Weight Change No No General: Alert, Oriented X3, Cooperative HEENT: Atraumatic, PERRLA Neck: Supple, No JVD, No Thyromegaly Lungs: Clear to Auscultation, Normal Air Movement Heart: Regular Rate, Normal S1, Normal S2, No Murmurs Abdomen: Normal Bowel Sounds, Soft, No Tenderness, No Hepatosplenomegaly, No M asses Extremities: No Clubbing, No Cyanosis, No Edema, Normal Pulses, No Tende rness/Swelling Skin: No Rashes, No Breakdown, No Significant Lesion Neuro: Normal Gait, Normal Speech, Strength at 5/5 X4 Ext, Normal Tone, Sensation Intact Psych/Mental Status: Mental Status NL, Mood NL Results Lab Laboratory Tests 04/21/19 13:53 04/22/19 03:10 A/P-Cardiology Admission Diagnosis Non-ST elevation myocardial infarction Coronary artery disease Hypertension Hyperlipidemia Assessment/Plan Non-ST elevation myocardial infarction, subacute PR, cardiac catheterization done with 2 stents to the right coronary artery as described below educated in length about compliance with medication, taking aspirin and Brilinta Coronary artery disease, cardiac catheterization done with 2 stents to the right coronary artery, 1. Severe multisegment stenosis in the right coronary artery with subtotal occlusion at the midportion, complex intervention with deployment of 2 stents proximally 2.75 x 18 mm expanded to 3.05 proximally and 2.91 at the midportion, followed without overlapping between the stent by Ita 2.523 mm expanded to 2.81 mm with excellent results 2. Tortuous LAD system with borderline lesion, patient will need to have FFR to the LAD in the future 3. Dilated left ventricle with diffuse left ventricular hypokinesia with estimated ejection fraction 30 percent Congestive heart failure, acute left ventricular systolic dysfunction, ischemic cardiomyopathy, started on beta blockers, cannot tolerate ACEI and/or ARB due to hypotension, I will reevaluate echo and if ejection fraction below 35 percent will consider LifeVest. Hypertension, status post hypotensive episode after receiving nitroglycerin and morphine. Feeling better at this time. Continue to monitor blood pressure Hyperlipidemia, history of liver transplant, start Lipitor low dose and monitor History of liver failure with liver transplant done in 2002. 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
--- NOTE | 2019-04-22 07:48 | Discharge Inst-Post CATH ---
Discharge Inst-CATH/EP Problems Reviewed?: Yes Post Cardiac Cath/EP D/C Inst Follow Up/Plan Appointment with Dr. LONG's office in 2 weeks <b>CARDIAC CATH/EP PROCEDURE DISCHARGE INSTRUCTIONS</b> ACTIVITY * Go Home directly and rest. * Limit activity of the leg (or wrist if it was used) for 7 days including aerobics, swimming, jogging, bicycling, etc. * Restrict stair-climbing for 7 days if possible, if not, climb up with your non-cath leg, then bring together on the same step. * Avoid lifting, pushing, pulling or excessive movement of the affected extremity for 7 days. * Customary sexual activity may be resumed after 2 days-use caution not to use a position that strains or causes pain to the affected extremity. * No driving for 24 hours. * NO SMOKING. * Avoid straining for bowel movements for 7 days. * Gentle walking on level ground is allowed. * Returning to work will depend on the type of procedure and the results. Your doctor will discuss this with you. CALL YOUR DOCTOR FOR ANY OF THE FOLLOWING: *If bleeding from the puncture site occurs- Apply gentle pressure to site with clean cloth and call your doctor or EMS. * If a knot or lump forms under the skin, increases in size, or causes pain. * If bruising appears to be worsening or moving further down your leg instead of disappearing. * Temperature above 101 F. CARE OF YOUR GROIN INCISION; * Bruising or purple discoloration of the skin near the puncture site is common. * You may shower only, no bathtub bathing for 5 days. Be careful to avoid slipping as your leg may feel stiff. * If a closure device was used on your femoral artery, please see the attached guide regarding care of the device and your leg. * Leave dressing on FOR 24 hours. CARE OF YOUR WRIST INCISION; * Bruising or purple discoloration of the skin near the puncture site is common. * You may shower. * DO NOT submerge wrist. * Leave dressing on FOR 24 hours. SAHARA LONG MD Apr 22, 2019 07:48
[2019-04-22] MEDS ORDERED: ATOR10TA PO (07:50)
[2019-04-22] MEDS ORDERED: ASPI-983 PO (07:50)
[2019-04-22] MEDS ORDERED: METO-387 PO (07:50)
[2019-04-22] MEDS ORDERED: TICA90TA PO (07:50)
[2019-04-22 08:00] VITALS: BP 115/63
[2019-04-22] MEDS: TICAGRELOR 90 MG TABLET (BRILINTA) PO SCH (08:21)
[2019-04-22] MEDS ORDERED: ASPIRIN E.C. 81 MG (ECOTRIN) TAB PO SCH ×2 (09:00)
--- NOTE | 2019-04-22 11:01 | NUR ---
PT TRANSFERRED TO ROOM 415 VIA WC ACCOMPANIED BY STAFF. PT PERSONAL BELONGINGS SENT WITH PT. REPORT GIVEN TO RUKHSANA SANCHEZ FOR CONTINUING CARE.
[2019-04-22 11:05] VITALS: BP 115/66
--- NOTE | 2019-04-22 11:05 | NUR ---
RECEIVED FROM ICU, REPORT FROM BIA SANCHEZ, PATIENT ALERT, ORIENTED TO ROOM, CALL LIGHT WITHIN REACH, DENIES PAIN OR SOB, DRESSING DRY AND INTACT TO RIGHT GROIN, SCD'S ON.
--- NOTE | 2019-04-22 11:55 | Short Stay Summary-Hospitalist ---
History of Present Illness HPI/Chief Complaint Chief complaint: Non-ST elevation WI requiring cardiac catheterization with stent placement History of present illness: This is a 68-year-old white male clinic patient of Dr. Vergara a [facility] who presented to the ER with chest pain and found to have an elevated troponin but no ST elevation so he was taken to cardiac catheterization by Dr. Rodriguez and multiple stents were deployed patient was stable from cardiology standpoint to be discharged home on new medication to protect the stents and further decrease the risk of further events. Source: patient Exam Limitations: no limitations Date Seen 04/22/19 Time Seen by a Provider: 10:00 Attending Physician Bessie Caballero DO PCP Andreas Vergara MD Referring Physician Date of Admission Apr 21, 2019 at 15:10 Home Medications & Allergies Home Medications Reviewed patient Home Medication Reconciliation performed by pharmacy medication reconciliations landfill gas technician and/or nursing. Patients Allergies have been reviewed. Allergies Allergies Coded Allergies No Known Drug Allergies (Unverified12/14/17) Past Zfgaboq-Kmkkec-Kgrlzg Hx Past Med/Social Hx: Reviewed Nursing Past Med/Soc Hx, Reviewed and Corrections made Patient Social History Marrital Status: single Employed/Student: retired Alcohol Use: Occasionally Uses Number of Drinks Today: AA Alcohol Beverage of Choice: Beer Recreational Drug Use: Yes (METH) Drug of Choice: HX +IV METH AND COCAINE, THC USE. NOW SMOKES METH AND OCCASIONALLY THC Smoking Status: Former Smoker Former Smoker, Quit: May 08, 1990 Type Used: Cigarettes 2nd Hand Smoke Exposure: No Physical Abuse Screen: No Sexual Abuse: No Recent Foreign Travel: No Contact w/other who traveled: No Recent Hopitalizations: No Recent Infectious Disease Expo: No Immunizations Up To Date Tetanus Booster (TDap): Unknown Date of Pneumonia Vaccine: Aug 03, 2011 Date of Influenza Vaccine: Sep 01, 2017 Seasonal Allergies Seasonal Allergies: No Past Medical History Surgeries: Appendectomy, Gallbladder, Liver Transplant, Orthopedic, Tonsillectomy Currently Using CPAP: No Currently Using BIPAP: No Cardiac: Hypertension Neurological: Neuropathy Reproductive: No Sexually Transmitted Disease: No HIV/AIDS: No Genitourinary: Prostate Problems Gastrointestinal: Liver Disease/Jaundice, Hepatitis, Cirrhosis Musculoskeletal: Amputee, Arthritis, Chronic Back Pain Endocrine: Diabetes, Non-Insulin dep Loss of Vision: Left Hearing Impairment: Denies Psychosocial: Depression History of Blood Disorders: No Adverse Reaction to Blood [place]: No (HAS HAD BLOOD WITH NO REACTION) Family History Myocardial infarction 21 FATHER No Pertinent Family Hx Review of Systems Constitutional: see HPI Cardiovascular: chest pain Physical Exam Physical Exam Vital Signs Vital Signs - First Documented 04/21/19 15:53 Temp 36.2 Capillary Refill : Less Than 3 Seconds Height, Weight, BMI Height: 6'0.00" Weight: 240lbs. 0.0oz. [id number]; 28.73 BMI Method:Stated General Appearance: No Apparent Distress, WD/WN, Chronically ill Eyes: Bilateral Eye Normal Inspection, Bilateral Eye PERRL, Bilateral Eye EOMI HEENT: PERRL/EOMI, TMs Normal, Normal ENT Inspection, Pharynx Normal, Moist Mucous Membranes Neck: Full Range of Motion, Normal Inspection, Non Tender, Supple, Carotid Bruit Respiratory: Normal Breath Sounds, No Accessory Muscle Use, No Respiratory Distress Cardiovascular: Regular Rate, Rhythm, Normal Peripheral Pulses Gastrointestinal: Non Tender, Soft Back: Normal Inspection, No CVA Tenderness, No Vertebral Tenderness Extremity: Normal Capillary Refill, Normal Inspection, Normal Range of Motion, Non Tender, No Calf Tenderness, No Pedal Edema Neurologic/Psychiatric: Alert, Oriented x3 Skin: Normal Color, Warm/Dry Lymphatic: No Adenopathy Results Results/Procedures Labs Laboratory Tests 04/21/19 13:53 04/22/19 03:10 Patient resulted labs reviewed. Short Stay Diagnosis Discharge Diagnosis-Short Stay Admission Diagnosis Assessment: Non-ST elevation WI status post multiple stents Final Discharge Diagnosis Assessment: Non-ST elevation WI status post multiple stents Conclusion Plan Plan: Discharge home Diagnosis/Problems Diagnosis/Problems (1) NSTEMI (non-ST elevated myocardial infarction) Status: Acute (2) Chest pain Status: Acute Qualifiers: Qualified Codes: R07.9 - Chest pain, unspecified Clinical Quality Measures AMI/AHF: ASA po Prior to arrival: Yes DVT/VTE Risk/Contraindication: Risk Factor Score Per Nursin RFS Level Per Nursing on Admit: 4+=Very High BESSIE CABALLERO DO Apr 22, 2019 11:55
--- NOTE | 2019-04-22 13:00 | NUR ---
SISTER VERONICA CALLED AND REQUESTED PATIENT GET ASSISTANCE AT HOME, PATIENT STATES HE GET MEALS AT HOME AND HAS FRIENDS THAT CAN ASSIST, [employer] NOTIFIED.
--- NOTE | 2019-04-22 13:30 | NUR ---
DEISY CLEMONS ASSOCIATE STORE DIRECTOR VISITED WITH PATIENT.
--- NOTE | 2019-04-22 14:00 | NUR ---
UP IN ROOM, SALINE LOCK DC, TELEMETRY DC, DRESSING CHANGED TO RIGHT GROIN, BAND AID APPLIED. SMALL AMOUNT BRUISING NOTED, NO HEMATOMA OR PAIN.
[2019-04-22 15:20] VITALS: BP 115/66
--- NOTE | 2019-04-22 15:20 | NUR ---
ERIBERTO RAMEY demonstrates understanding of discharge instructions and accurately returns instructions upon questioning. Copy of Post-Discharge Instructions and Medication Discharge Instructions given to PATIENT. ERIBERTO RAMEY is able to manage continuing needs after discharge. Patients belongings returned to PATIENT. Skin dry and intact; no breakdown noted. Patient discharged from [facility]- on 04/22/19 at 1520. ERIBERTO RAMEY left floor via W/C, accompanied by STAFF AND FRIEND.
--- NOTE | 2019-04-22 15:45 | NUR ---
CM/SS, respond to referral from patient's sisters who reside in [place] per their request through Unit RN on patient's room phone. Patient known to magnetic tape typewriter operator from previous admissions and complex psychosocial issues. Patient continues to reside in the same property as before but with improved/limited supports. IN-HOME SERVICES: 6 hours per week through [facility] under [employer]. Private Assist: "Marbella" is a friend who provides transport for patient for errands. MEALS: Home delivered meals established per patient. Patient is the "baby" of the family, he describes that both sisters are disabled from MVA's and either they have or their family has health limits. They were apparently worried about patient returning home. Interviewed patient, involved physicians have indicated medical stability. Per patient report: He is established with [facility]. He has adequate insurance for Rx and has no issues getting his prescriptions. Marbella will be coming today to pick him up and take him home. He does not have a cell at this time, magnetic tape typewriter operator and patient discussed having Marbella or someone check on him daily for a few days. Patient understands that if he is unable to manage self at home, he should call [facility] for reassessment of health status. This does not appear likely but the plan was discussed to avoid crisis.
== END 2019-04-22 15:20 | disposition home or self-care (01) | DRG 246 ==
LOC: EDUNIT# 13:45 → ER 13:46 → 4TH 15:10 → ICU 18:27 → 4TH 04-22 11:01
PROVIDERS: ADMIT Internal Medicine; ATTEND Internal Medicine
PROC: 027035Z Dilation of Coronary Artery, One Artery with Two Drug-eluting Intraluminal Devices, Percutaneous Approach (ICD-10-PCS; principal; 2019-04-21)
PROC: 4A023N7 Measurement of Cardiac Sampling and Pressure, Left Heart, Percutaneous Approach (ICD-10-PCS; 2019-04-21)
PROC: B2111ZZ Fluoroscopy of Multiple Coronary Arteries using Low Osmolar Contrast (ICD-10-PCS; 2019-04-21)
PROC: B2151ZZ Fluoroscopy of Left Heart using Low Osmolar Contrast (ICD-10-PCS; 2019-04-21)
DX: I21.4 Non-ST elevation (NSTEMI) myocardial infarction (principal); I11.0 Hypertensive heart disease with heart failure; I50.21 Acute systolic (congestive) heart failure; E11.40 Type 2 diabetes mellitus with diabetic neuropathy, unspecified; Z94.4 Liver transplant status; F32.9 Major depressive disorder, single episode, unspecified; M19.91 Primary osteoarthritis, unspecified site; M54.9 Dorsalgia, unspecified; I25.10 Atherosclerotic heart disease of native coronary artery without angina pectoris; E78.5 Hyperlipidemia, unspecified; I08.0 Rheumatic disorders of both mitral and aortic valves; Z89.421 Acquired absence of other right toe(s); Z89.422 Acquired absence of other left toe(s); Z86.19 Personal history of other infectious and parasitic diseases; Z91.19 Patient's noncompliance with other medical treatment and regimen; Z87.891 Personal history of nicotine dependence
CPT/HCPCS: 36415; 71045; 80053; 80061; 80306; 82962; 83735; 83874; 84484; 85025; 85027; 85610; 85730; 93005; 93041; 93306; 93458; 96372; 96374

== ENCOUNTER 2019-04-30 01:00 | Inpatient (IN) | payer MEDICARE, OTHER ==
[~2019-04-30] VITALS: Ht 182.8 cm; Wt 95.0 kg
[2019-04-30] VITALS (12 sets, daily range): BP systolic 98–157; BP diastolic 68–87
[~2019-04-30 01:00] MED LIST changes: +ASPI-983 PO; +ATOR10TA PO; +METO-387 PO; +TICA90TA PO
[2019-04-30] MEDS ORDERED: FAMOTIDINE 20MG/2ML IV (PEPCID) IV STA (01:09)
--- NOTE | 2019-04-30 01:14 | ED Chest Pain ---
General Chief Complaint: Chest Pain Stated Complaint: CP,SOB Source: patient, EMS, old records Exam Limitations: no limitations History of Present Illness Date Seen by Provider: Apr 30, 2019 Time Seen by Provider: 00:58 Initial Comments Patient presents to ER by EMS from home where he was trying to go to sleep at about midnight and started expressing some left-sided anterior substernal chest pain. He does not have any cough or shortness of breath. He says the pain is similar to pain x-rays had a heart attack a couple weeks ago. He got a hospital week ago. Dr. Rodriguez's director of pediatric rehabilitation Dr. Leung's his primary care. He is diabetic and supposed to be on insulin but just doesn't take it. He saw his primary care doctor Thursday, today and was told not taking insulin so he decided he should probably take it. He does know what kind of insulin his post beyond. He is on antihypertensives and antihyperlipidemia's. Quit smoking cigarettes years ago. He says he still occasionally smokes meth with his last use being approximately 2 weeks ago. He denies fever chills cough nausea vomiting. He drinks beer occ asionally about a sixpack a week and had suspect tonight. He has a history of liver 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 C. Allergies and Home Medications Allergies Coded Allergies: No Known Drug Allergies (Unverified , 12/14/17) Home Medications Aspirin 81 Mg Tablet.dr, 81 MG PO DAILY Prescribed by: SAHARA RODRIGUEZ on 04/22/19749 Atorvastatin Calcium 10 Mg Tablet, 10 MG PO DAILY Prescribed by: SAHARA RODRIGUEZ on 04/22/19749 Metoprolol Succinate 25 Mg Tab.er.24h, 25 MG PO DAILY Prescribed by: SAHARA RODRIGUEZ on 04/22/19749 Ticagrelor 90 Mg Tablet, 90 MG PO BID Prescribed by: SAHARA RODRIGUEZ on 04/22/19749 Patient Home Medication List Home Medication List Reviewed: Yes Review of Systems Review of Systems Constitutional: No chills, No diaphoresis EENTM: No Blurred Vision, No Double Vision Respiratory: Denies Cough, Denies Shortness of Air, Denies SOA With Exertion Cardiovascular: See HPI, Chest Pain; Denies Edema Gastrointestinal: Denies Abdominal Pain, Denies Nausea Genitourinary: Denies Discharge, Denies Drainage Musculoskeletal: No back pain, No joint pain Past Bgacdas-Chmmwz-Xinjzc Hx Patient Social History Alcohol Use: Occasionally Uses Alcohol Beverage of Choice: Beer (sixpack a week) Recreational Drug Use: Yes Drug of Choice: HX +IV METH AND COCAINE, THC USE. NOW SMOKES METH AND OCCASIONALLY THC Smoking Status: Former Smoker Type Used: Cigarettes Former Smoker, Quit: May 08, 1990 2nd Hand Smoke Exposure: No Recent Foreign Travel: No Contact w/Someone Who Travel: No Recent Hopitalizations: No Immunizations Up To Date Tetanus Booster (TDap): Unknown Date of Pneumonia Vaccine: Aug 03, 2011 Date of Influenza Vaccine: Sep 01, 2017 Seasonal Allergies Seasonal Allergies: No Past Medical History Surgeries: Yes (several sx on both feet with toes amputed on right foot) Appendectomy, Gallbladder, Liver Transplant, Orthopedic, Tonsillectomy Respiratory: No Currently Using CPAP: No Currently Using BIPAP: No Cardiac: No Hypertension Neurological: Yes (NEUROPATHY IN FEET) Neuropathy Reproductive Disorders: No Sexually Transmitted Disease: No HIV/AIDS: No Genitourinary: Yes Prostate Problems Gastrointestinal: Yes (HEPATITIS C--S/P INTERFERON TREATMENT; LIVER TRANSPLANT 2002) Liver Disease/Jaundice, Hepatitis, Cirrhosis Musculoskeletal: Yes (TOES AMPUTATED. CELLULITIS/OSTEOMYELITIS OF FEET/TOES) Amputee, Arthritis, Chronic Back Pain Endocrine: Yes ([id number] NOT CHECK BLOOD SUGARS EVERDAY) Diabetes, Non-Insulin dep HEENT: Yes (EDENTULOUS) Loss of Vision: Left Hearing Impairment: Denies Cancer: No Psychosocial: No (NEVER TAKEN MEDS) Depression Integumentary: Yes (CYST LEFT NECK; CELLULITIS/OSTEOMYELITIS OF FEET) Blood Disorders: No Adverse Reaction/Blood Tranf: No (HAS HAD BLOOD WITH NO REACTION) Family Medical History Myocardial infarction 19 FATHER No Pertinent Family Hx Physical Exam Vital Signs Vital Signs - First Documented Capillary Refill : Height, Weight, BMI Height: 6'0.00" Weight: 240lbs. 0.0oz. 108.700200sn; 28.73 BMI Method:Stated General Appearance: No Apparent Distress, Anxious, Chronically ill HEENT: PERRL/EOMI, Pharynx Normal, Moist Mucous Membranes Neck: Full Range of Motion, Normal Inspection Respiratory: No Chest Non Tender (chest pain is reproducible by direct palpation over the left chest); Lungs Clear, Normal Breath Sounds, No Accessory Muscle Use, No Respiratory Distress Cardiovascular: Regular Rate, Rhythm, No Edema, Normal Peripheral Pulses Extremity: No Pedal Edema, Other (left toe amputations and right forefoot amputation) Neurologic/Psychiatric: Alert, Oriented x3, No Motor/Sensory Deficits Skin: Normal Color, Warm/Dry Progress/Results/Core Measures Results/Orders Lab Results Laboratory Tests Test 04/30/19 01:06 04/30/19 01:08 04/30/19 01:15 04/30/19 02:30 Range/Units White Blood Count 6.7 4.3-11.0 10^3/uL Red Blood Count 4.28 L 4.35-5.85 10^6/uL Hemoglobin 12.6 L 13.3-17.7 G/DL Hematocrit 37 L 40-54 % Mean Corpuscular Volume 86 80-99 FL Mean Corpuscular Hemoglobin 29 25-34 PG Mean Corpuscular Hemoglobin Concent 34 32-36 G/DL Red Cell Distribution Width 13.6 10.0-14.5 % Platelet Count 454 H 130-400 10^3/uL Mean Platelet Volume 11.0 H 7.4-10.4 FL Neutrophils (%) (Auto) 60 42-75 % Lymphocytes (%) (Auto) 27 12-44 % Monocytes (%) (Auto) 9 0-12 % Eosinophils (%) (Auto) 3 0-10 % Basophils (%) (Auto) 0 0-10 % Neutrophils # (Auto) 4.0 1.8-7.8 X 10^3 Lymphocytes # (Auto) 1.8 1.0-4.0 X 10^3 Monocytes # (Auto) 0.6 0.0-1.0 X 10^3 Eosinophils # (Auto) 0.2 0.0-0.3 10^3/uL Basophils # (Auto) 0.0 0.0-0.1 10^3/uL Prothrombin Time 13.0 12.2-14.7 SEC INR Comment 1.0 0.8-1.4 Activated Partial Thromboplast Time 27 24-35 SEC D-Dimer 1.52 H 0.00-0.49 UG/ML Sodium Level 135 135-145 MMOL/L Potassium Level 4.3 3.6-5.0 MMOL/L Chloride Level 102 98-107 MMOL/L Carbon Dioxide Level 20 L 21-32 MMOL/L Anion Gap 13 5-14 MMOL/L Blood Urea Nitrogen 18 7-18 MG/DL Creatinine 0.86 0.60-1.30 MG/DL Estimat Glomerular Filtration Rate > 60 BUN/Creatinine Ratio 21 Glucose Level 405 *H 70-105 MG/DL Calcium Level 8.8 8.5-10.1 MG/DL Corrected Calcium 9.1 8.5-10.1 MG/DL Magnesium Level 1.8 1.6-2.4 MG/DL Total Bilirubin 0.7 0.1-1.0 MG/DL Aspartate Amino Transf (AST/SGOT) 34 5-34 U/L Alanine Aminotransferase (ALT/SGPT) 44 0-55 U/L Alkaline Phosphatase 149 H 40-136 U/L Myoglobin 24.2 10.0-92.0 NG/ML Troponin I 0.031 H <0.028 NG/ML B-Type Natriuretic Peptide 45.9 <100.0 PG/ML Total Protein 7.5 6.4-8.2 GM/DL Albumin 3.6 3.2-4.5 GM/DL Serum Alcohol 13 H <10 MG/DL Glucometer 376 H 70-110 MG/DL Urine Color YELLOW Urine Clarity CLEAR Urine pH 6 5-9 Urine Specific [place] 1.015 L 1.016-1.022 Urine Protein NEGATIVE NEGATIVE Urine Glucose (UA) 4+ H NEGATIVE Urine Ketones 1+ H NEGATIVE Urine Nitrite NEGATIVE NEGATIVE Urine Bilirubin NEGATIVE NEGATIVE Urine Urobilinogen NORMAL NORMAL MG/DL Urine Leukocyte Esterase NEGATIVE NEGATIVE Urine RBC (Auto) NEGATIVE NEGATIVE Urine RBC NONE /HPF Urine WBC NONE /HPF Urine Squamous Epithelial Cells 0-2 /HPF Urine Crystals NONE /LPF Urine Leucine Crystals /LPF Urine Bacteria TRACE /HPF Urine Casts NONE /LPF Urine Mucus NEGATIVE /LPF Urine Culture Indicated NO Urine Opiates Screen NEGATIVE NEGATIVE Urine Oxycodone Screen NEGATIVE NEGATIVE Urine Methadone Screen NEGATIVE NEGATIVE Urine Propoxyphene Screen NEGATIVE NEGATIVE Urine Barbiturates Screen NEGATIVE NEGATIVE Ur Tricyclic Antidepressants Screen NEGATIVE NEGATIVE Urine Phencyclidine Screen NEGATIVE NEGATIVE Urine Amphetamines Screen NEGATIVE NEGATIVE Urine Methamphetamines Screen NEGATIVE NEGATIVE Urine Benzodiazepines Screen NEGATIVE NEGATIVE Urine Cocaine Screen NEGATIVE NEGATIVE Urine Cannabinoids Screen NEGATIVE NEGATIVE Lipase 41 8-78 U/L Test 04/30/19 02:45 Range/Units Glucometer 282 H 70-110 MG/DL My Orders Orders - JOSUE RIZO Cbc With Automated Diff (04/30/19 01:09) Magnesium (04/30/19 01:09) Chest 1 View, Ap/Pa Only (04/30/19 01:09) Ekg Tracing (04/30/19 01:09) Cardiac Profile 1 (04/30/19 01:09) Comprehensive Metabolic Panel (04/30/19 01:09) Myoglobin Serum (04/30/19 01:09) Protime With Inr (04/30/19 01:09) Partial Thromboplastin Time (04/30/19 01:09) O2 (04/30/19 01:09) Monitor-Rhythm Ecg Trace Only (04/30/19 01:09) Lipid Panel (05/01/19 06:00) Ed Iv/Invasive Line Start (04/30/19 01:09) BNP (04/30/19 01:09) Fibrin Degradation Products (04/30/19 01:09) Accucheck Stat ONCE (04/30/19 01:09) Lidocaine 2% Viscous 15 Ml (Xylocaine Vi (04/30/19 01:15) Antacid Suspension (Mylanta Suspension (04/30/19 01:15) Famotidine Injection (Pepcid Injection) (04/30/19 01:09) Ua Culture If Indicated (04/30/19 01:09) Drug Screen Stat (Urine) (04/30/19 01:15) Ed Iv/Invasive Line Start (04/30/19 01:20) Ns Iv 1000 Ml (Sodium Chloride 0.9%) (04/30/19 01:20) Insulin (Regular) Human (Humulin R (Per (04/30/19 01:30) Alcohol (04/30/19 01:06) Ct Angio Chest W (04/30/19 01:48) Morphine Injection (Morphine Injection (04/30/19 01:50) Lipase (04/30/19 02:37) Iohexol Injection (Omnipaque 350 Mg/Ml 1 (04/30/19 02:45) Received Contrast (Hold Metformin- Contr (04/30/19 02:45) Ns (Ivpb) (Sodium Chloride 0.9% Ivpb Bag (04/30/19 02:45) Morphine Injection (Morphine Injection (04/30/19 02:41) Accucheck Stat ONCE (04/30/19 02:42) Medications Given in ED Current Medications Medications Dose Ordered Sig/Merrick Route Start Time Stop Time Status Last Admin Dose Admin Al Hydrox/Mg Hydrox/Simethicone 30 ml ONCE ONCE PO 04/30/19 01:15 04/30/19 01:16 DC 04/30/19 01:35 30 ML Lidocaine HCl 15 ml ONCE ONCE PO 04/30/19 01:15 04/30/19 01:16 DC 04/30/19 01:35 15 ML Vital Signs/I&O 04/30/19 04/30/19 01:02 01:02 Temp 36.7 Pulse 54 Resp 18 B/P (MAP) 129/59 (82) O2 Delivery Room Air Room Air Progress Progress Note #1: Time: :17 Progress Note He received aspirin by EMS and nitroglycerin which did not seem to help his pain. He reports at worst it was a 8 out of 10 and is presently 6 out of 10. Plan to give him a GI cocktail and if that does not help then can try something else. EMS put a nitroglycerin paste patch on his chest. Heart score 6 points if the initial troponin is negative. Plan to give him a liter of saline for his tachycardia and 5 units of regular insulin since he seems to be insulin tevin presently. Progress Note #2: Time: 02:06 Progress Note 5 units of regular insulin were given for his hyperglycemia. We'll recheck an Accu-Chek afterwards. GI cocktail and nitroglycerin have not helped. We removed the nitroglycerin patch. Plan to give 4 mg morphine for his 5 out of [address] angiogram. Possible chest wall pain. Initial ECG Impression Date: Apr 30, 2019 Initial ECG Impression Time: 01:04 Initial ECG Rate: 112 Initial ECG Rhythm: S.Tach Initial ECG Intervals: Normal Initial ECG Impression: Normal, Nonspecific Changes Comment Sinus tachycardia with PVCs and no clinically significant ST elevation or depression. Diagnostic Imaging Diagonstic Imaging: Xray Plain Films/CT/US/NM/MRI: chest (1v) Comments COPD. No acute cardiopulmonary process noted. Reviewed: Reviewed by Me Diagonstic Imaging: CT (angio) Plain Films/CT/US/NM/MRI: chest Comments No pulmonary embolism. Coronary artery atherosclerotic calcification. Particular thickening seen in the lungs predominantly along the periphery. Could be seen with interstitial lung disease. Reviewed: Reviewed [place] Study, Reviewed by Me Departure Communication (Admissions) Time/Spoke to Admitting Phy: 03:05 Discussed case lab imaging findings EKG with Dr. Jones and she agrees to observe the patient. Time/Spoke to Consulting Phy: 03:00 Discussed case lab EKG imaging with Dr. Chin, cardiology and he agrees to consult on the patient. Impression Primary Impression: Unstable angina Disposition: ADMITTED INPATIENT Condition: Stable Admissions Decision to Admit Reason: Admit from ER (General) Decision to Admit/Date: Apr 30, 2019 Time/Decision to Admit Time: 02:47 Departure-Patient Inst. Referrals: SUSAN QUIÑONEZ MD (PCP/Family) Primary Care Physician JOSUE RIZO Apr 30, 2019 01:14
[2019-04-30] MEDS ORDERED: LIDOCAINE 2% VISCOUS 15 ML UDC PO ONE (01:15)
[2019-04-30] MEDS ORDERED: ANTACID SUSP 30 ML UDC (MYLANTA) PO ONE (01:15)
[2019-04-30 01:20] LABS: BASOPHILS % (AUTO) 0 % (0-10); EOSINOPHILS # (AUTO) 0.2 10^3/uL (0.0-0.3); EOSINOPHILS % (AUTO) 3 % (0-10); HEMATOCRIT 37 % (40-54); HEMOGLOBIN 12.6 G/DL (13.3-17.7); LYMPHOCYTES # (AUTO) 1.8 X 10^3 (1.0-4.0); LYMPHOCYTES % (AUTO) 27 % (12-44); MEAN CORPUSCULAR HEMOGLOBIN 29 PG (25-34); MEAN CORPUSCULAR HGB CONC 34 G/DL (32-36); MEAN CORPUSCULAR VOLUME 86 FL (80-99); MONOCYTES # (AUTO) 0.6 X 10^3 (0.0-1.0); MONOCYTES % (AUTO) 9 % (0-12); NEUTROPHILS % (AUTO) 60 % (42-75); PLATELET COUNT 454 10^3/uL (130-400); RED CELL DISTRIBUTION WIDTH 13.6 % (10.0-14.5); WHITE BLOOD COUNT 6.7 10^3/uL (4.3-11.0)
[2019-04-30] MEDS ORDERED: NS IV 1000 ML 1,000 ML IV SCH (01:20)
[2019-04-30 01:22] LABS: BILIRUBIN,URINE NEGATIVE (NEGATIVE); CLARITY,URINE CLEAR; COLOR,URINE YELLOW; GLUCOSE, URINE (UA) 4+ (NEGATIVE); KETONES,URINE 1+ (NEGATIVE); LEUKOCYTE ESTERASE ,URINE NEGATIVE (NEGATIVE); NITRITE,URINE NEGATIVE (NEGATIVE); PH,URINE 6 (5-9); PROTEIN,URINE NEGATIVE (NEGATIVE); UROBILINOGEN,URINE NORMAL (NORMAL)
[2019-04-30] MEDS ORDERED: inSUlin (REGULAR) HUMAN 1 UNIT/0.01 ML (CHARGE PER UNIT) SC SCH (01:30)
--- NOTE | 2019-04-30 01:35 | NUR ---
LEFT CHEST NITRO PASTE PLACED BY EMS REMOVED AT THIS TIME PER DR. RIZO VERBAL ORDERS.
[2019-04-30 01:38] LABS: BACTERIA,URINE TRACE /HPF; SQUAMOUS EPITHELIAL CELL,UR 0-2 /HPF
[2019-04-30 01:39] LABS: ALANINE AMINOTRANSFERASE 44 U/L (0-55); ALBUMIN 3.6 GM/DL (3.2-4.5); ALKALINE PHOSPHATASE 149 U/L (40-136); BILIRUBIN,TOTAL 0.7 MG/DL (0.1-1.0); BUN/CREATININE RATIO 21; CALCIUM 8.8 MG/DL (8.5-10.1); CARBON DIOXIDE 20 MMOL/L (21-32); CHLORIDE 102 MMOL/L (98-107); CREATININE SERUM 0.86 MG/DL (0.60-1.30); GFR ESTIMATED > 60; MAGNESIUM 1.8 MG/DL (1.6-2.4); POTASSIUM 4.3 MMOL/L (3.6-5.0); SODIUM 135 MMOL/L (135-145); TOTAL PROTEIN 7.5 GM/DL (6.4-8.2)
[2019-04-30 01:39] LABS: AMPHETAMINE SCREEN, URINE NEGATIVE (NEGATIVE); BARBITURATE SCREEN URINE NEGATIVE (NEGATIVE); BENZODIAZEPINES SCREEN URINE NEGATIVE (NEGATIVE); CANNABINOID SCREEN, URINE NEGATIVE (NEGATIVE); COCAINE SCREEN URINE NEGATIVE (NEGATIVE); METHADONE STAT NEGATIVE (NEGATIVE); METHAMPHETAMINE SCREEN URINE S NEGATIVE (NEGATIVE); OPIATE SCREEN URINE NEGATIVE (NEGATIVE); OXYCODONE STAT NEGATIVE (NEGATIVE); PROPOXYPHENE STAT NEGATIVE (NEGATIVE); TRICYCLIC ANTIDEPRESSANTS SCRE NEGATIVE (NEGATIVE)
[2019-04-30] MEDS ORDERED: morphine INJ 10 MG/ML 1ML (SYR OR VIAL) IVP STA ×2 (01:50→02:41)
[2019-04-30 01:51] LABS: GLUCOSE 405 MG/DL (70-105)
[2019-04-30] MEDS ORDERED: NS 100 ML (IVPB) BAG IV ONE (02:45)
[2019-04-30] MEDS ORDERED: IOHEXOL 350 MG/ML 100 ML (OMNIPAQUE 350) VIAL IV ONE (02:45)
[2019-04-30] MEDS ORDERED: HOLD METFORMIN - RECEIVED CONTRAST 20 ML VIAL IV SCH (02:45)
--- NOTE | 2019-04-30 04:10 | NUR ---
ERIBERTO RAMEY admitted to room 432-1, with an admitting diagnosis of chest pain r/o ACS, on 04/30/19 from er via stretcher, accompanied by ed staff. ERIBERTO RAMEY introduced to surroundings, call light, bed controls, phone, TV, temperature control, lights, meal times, smoking policy, visitor policy, side rail policy, bathrooms and showers. Patient Rights given to patient in the handbook. ERIBERTO RAMEY verbalizes understanding that [facility] is not responsible for the loss or damage to any personal effects or valuables that are kept in the patients possession during their hospitalization.
[2019-04-30] MEDS ORDERED: ONDANSETRON 4 MG/2 ML (SDV) Z0FRAN IV PRN (04:15)
[2019-04-30] MEDS ORDERED: ANTACID SUSP 30 ML UDC (MYLANTA) PO PRN (04:30)
[2019-04-30] MEDS ORDERED: LORazepam INJ 2 MG/ML (ATIVAN) VIAL IV PRN (04:30)
[2019-04-30] MEDS ORDERED: morphine INJ 4 MG/ML 1 ML (VIAL/SYRINGE) IV PRN (04:30)
[2019-04-30] MEDS ORDERED: NITROGLYCERIN 0.4 MG SL TABS BTL 25'S SL PRN (04:30)
[2019-04-30] MEDS: NS IV 1000 ML 1,000 ML IV SCH ×4 (04:40→23:43)
[2019-04-30] MEDS ORDERED: NITR0.4T42 SL (05:18)
[2019-04-30] MEDS ORDERED: LOSA25TA41 PO (05:18)
[2019-04-30] MEDS: inSUlin ASPART (NovoLOG) 1 UNIT/0.01 ML (CHARGE PER UNIT) SC SCH ×4 (06:42→21:32)
--- NOTE | 2019-04-30 06:52 | Diagnostic Imaging Report ---
CLINICAL INDICATION: Patient with shortness of air and chest pain. Patient had VT one week ago with 2 stents. EXAM: Portable chest x-ray upright view. COMPARISONS: Portable chest x-ray dated 04/21/2019. FINDINGS: Lungs/pleura: There is mild bibasilar atelectasis versus infiltrate or pulmonary congestion. Otherwise, the remainder of the lungs are clear. There is no pneumothorax. There is no pleural effusion. Mediastinum: Stable minimal prominence of pulmonary vasculature. Pulmonary vasculature: Unremarkable. Heart: Stable mild cardiomegaly Bones/extrathoracic soft tissue: Unremarkable. IMPRESSION: 1: Stable cardiomegaly with minimal prominence of pulmonary vasculature. 2: There is again seen mild bibasilar atelectasis versus infiltrate or pulmonary congestion. Dictated by: Dictated on workstation # [id number]
--- NOTE | 2019-04-30 07:44 | Diagnostic Imaging Report ---
PROCEDURE: CT angiography of the chest with contrast. TECHNIQUE: Multiple contiguous axial images were obtained through the chest after uneventful bolus administration of intravenous contrast. 3D reconstructed CTA MIP acquisitions were also performed. Auto Exposure Controls were utilized during the CT exam to meet ALARA standards for radiation dose reduction. INDICATION: Chest pain and shortness of breath. FINDINGS: There is some reticulonodular thickening in the lungs bilaterally particularly in the periphery of the lungs. This is nonspecific, however, chronic in appearance and may reflect interstitial lung disease. There are no discrete pulmonary nodules or masses. There is no pneumothorax. There is no pleural or pericardial fluid. There is no pneumothorax. The thoracic aorta is normal in caliber without evidence of dissection. There are no filling defects seen within the pulmonary arteries to suggest pulmonary embolism. There are coronary artery calcifications. Visualized intra-abdominal structures are unremarkable. There is mild thoracic spondylosis. IMPRESSION: No evidence of pulmonary embolism or aortic dissection. Coronary artery calcification. Reticular thickening in the periphery of both lungs suspect for some component of interstitial lung disease. Recommend clinical correlation and if warranted this could be better evaluated on an outpatient basis with high resolution CT chest. Dictated by: Dictated on workstation # [id number]
[2019-04-30] MEDS: PANTOPRAZOLE 40 MG (PROTONIX) VIAL IV SCH (08:48)
[2019-04-30] MEDS ORDERED: ASPIRIN E.C. 81 MG (ECOTRIN) TAB PO SCH (09:00)
--- NOTE | 2019-04-30 13:16 | Short Stay Summary-Hospitalist ---
History of Present Illness HPI/Chief Complaint Chief complaint: Chest pain in patient with recent stent placement last week History of present illness: This is a 68-year-old white male clinic patient [facility] who is known to me from last week admission for unstable angina requiring multiple stents placed and maintained compliance with discharge medications who presents to the ER with chest pain patient was admitted ruled out acute coronary syndrome and cardiology was consulted for further risk stratification. He denies any chest pain currently and denies any other issues. Source: patient, old records Exam Limitations: no limitations Date Seen 04/30/19 Time Seen by a Provider: 12:15 Attending Physician Bessie Echols DO PCP Andreas Vergara MD Referring Physician Date of Admission Apr 30, 2019 at 02:50 Home Medications & Allergies Home Medications Reviewed patient Home Medication Reconciliation performed by pharmacy medication reconciliations noc technician and/or nursing. Patients Allergies have been reviewed. Allergies Allergies Coded Allergies No Known Drug Allergies (Unverified12/14/17) Past Ndlcjrf-Ctansq-Lqoiyc Hx Past Med/Social Hx: Reviewed Nursing Past Med/Soc Hx, Reviewed and Corrections made Patient Social History Marrital Status: single Employed/Student: retired Alcohol Use: Occasionally Uses Number of Drinks Today: AA Alcohol Beverage of Choice: Beer (sixpack a week) Recreational Drug Use: Yes Drug of Choice: HX +IV METH AND COCAINE, THC USE. NOW SMOKES METH AND O CCASIONALLY THC Smoking Status: Former Smoker Former Smoker, Quit: May 08, 1990 Type Used: Cigarettes 2nd Hand Smoke Exposure: No Recent Foreign Travel: No Contact w/other who traveled: No Recent Hopitalizations: Yes (ND-HEART CATH- 2 STENTS PLACED) Recent Infectious Disease Expo: No Immunizations Up To Date Tetanus Booster (TDap): Unknown Date of Pneumonia Vaccine: Aug 03, 2011 Date of Influenza Vaccine: Sep 01, 2017 Seasonal Allergies Seasonal Allergies: No Past Medical History Surgeries: Appendectomy, Coronary Stent, Gallbladder, Liver Transplant, Orthopedic, Tonsillectomy Currently Using CPAP: No Currently Using BIPAP: No Cardiac: Hypertension Neurological: Neuropathy Reproductive: No Sexually Transmitted Disease: No HIV/AIDS: No Genitourinary: Prostate Problems Gastrointestinal: Liver Disease/Jaundice, Hepatitis, Cirrhosis Musculoskeletal: Amputee, Arthritis, Chronic Back Pain Endocrine: Diabetes, Non-Insulin dep Loss of Vision: Left Hearing Impairment: Denies Psychosocial: Depression History of Blood Disorders: No Adverse Reaction to Blood [place]: No (HAS HAD BLOOD WITH NO REACTION) Family History Myocardial infarction 19 FATHER No Pertinent Family Hx Review of Systems Constitutional: see HPI Cardiovascular: chest pain Physical Exam Physical Exam Vital Signs Vital Signs - First Documented 04/30/19 04:03 Pulse Ox 100 Capillary Refill : Less Than 3 Seconds Height, Weight, BMI Height: 6'0.00" Weight: 240lbs. 0.0oz. [id number]; 28.42 BMI Method:Stated General Appearance: No Apparent Distress, WD/WN, Anxious, Chronically ill HEENT: PERRL/EOMI, Pharynx Normal, Moist Mucous Membranes Neck: Full Range of Motion, Normal Inspection Respiratory: No Chest Non Tender (chest pain is reproducible by direct p alpation over the left chest); Lungs Clear, Normal Breath Sounds, No Accessory Muscle Use, No Respiratory Distress Cardiovascular: Regular Rate, Rhythm, No Edema, Normal Peripheral Pulses Extremity: No Pedal Edema, Other (left toe amputations and right forefoot amputation) Neurologic/Psychiatric: Alert, Oriented x3, No Motor/Sensory Deficits Skin: Normal Color, Warm/Dry Results Results/Procedures Labs Laboratory Tests 04/30/19 01:06 Patient resulted labs reviewed. Short Stay Diagnosis Discharge Diagnosis-Short Stay Admission Diagnosis Assessment: Chest pain Recent coronary stent placements Hypertension Hyperlipidemia Final Discharge Diagnosis Assessment: Chest pain Recent coronary stent placements Hypertension Hyperlipidemia Conclusion Plan Plan: Await cardiology recommendation Clinical Quality Measures AMI/AHF: ASA po Prior to arrival: Yes (324 ASA) DVT/VTE Risk/Contraindication: Risk Factor Score Per Nursin RFS Level Per Nursing on Admit: 2=Moderate BESSIE ECHOLS DO Apr 30, 2019 13:16
--- NOTE | 2019-04-30 13:33 | Consultation-Cardiology ---
HPI-Cardiology Cardiology Consultation: Date of Consultation 04/30/19 Date of Admission Attending Physician Bessie Echols DO Admitting Physician Andreas Vergara MD Consulting Physician Christie CHIN MD HPI: Time Seen by a Provider: 12:30 Chief Complaint: Chest pain This is a 68-year-old gentleman who is a patient of Dr. Rodriguez. 10 days ago he had PCI to the RCA with 2 stents. His EF was 30 percent and a LifeVest was recommended. He complained of chest pain yesterday, mild to moderate intensity. Left-sided substernal. No associated cardiac symptoms. he denied smoking. He has history of diabetes. Father had an history of SD. He was not having any chest pain when I saw him. History of liver 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 C. He occasionally smokes meth with last use 2 weeks ago. Drinks alcohol as well. Review of Systems-Cardiology Review of Systems Constitutional: As described under HPI; No As described under HPI, No no symptoms reported, No chills, No fever, No lightheadedness Eyes: No As described under HPI, No no symptoms reported, No blindness, No blurred vision, No contact lenses, No drainage, No decreased acuity, No foreign body sensation, No pain, No vision change Ears/Nose/Throat: No As described under HPI, No no symptoms reported, No chronic hearing loss, No ear discharge, No ear pain, No nasal drainage, No ulcerations Respiratory: No no symptoms reported; As described under HPI; No As described under HPI, No cough, No orthopnea, No shortness of breath, No SOB with excertion Cardiovascular: No no symptoms reported; As described under HPI; No As described under HPI; chest pain; No edema, No irregular heart rate, No lightheadedness, No palpitations Gastrointestinal: No no symptoms reported, No As described under HPI, No abdomen distended, No abdominal pain, No blood streaked bowels, No constipation, No diarrhea, No nausea, No vomiting, No stool coloration changes Genitourinary: No As described under HPI, No burning, No dysuria, No discharge, No frequency, No flank pain, No hematuria, No urgency Skin: No rash, No skin related problems, No ulcerations Psychiatric/Neurological: No anxiety, No depression, No seizure, No focal weakness, No syncope Hematologic: No bleeding abnormalities [id number] Hx Patient Social History Alcohol Use: Occasionally Uses Recreational Drug Use: Yes Drug of Choice: HX +IV METH AND COCAINE, THC USE. NOW SMOKES METH AND OCCASIONALLY THC Smoking Status: Former Smoker Former smoker/When Quit: Mar 03, 2002 Type Used: Cigarettes 2nd Hand Smoke Exposure: No Recent Foreign Travel: No Recent Infectious Disease Expo: No Hospitalization with Isolation: Denies Immunizations Up To Date Tetanus Booster (TDap): Unknown Date of Pneumonia Vaccine: Aug 03, 2011 Date of Influenza Vaccine: Sep 01, 2017 Past Medical History PMH As described under Assessment. Family Medical History Family History: Myocardial infarction 19 FATHER Allergies and Home Medications Allergies Coded Allergies: No Known Drug Allergies (Unverified , 12/14/17) Home Medications Aspirin 81 Mg Tablet.dr, 81 MG PO DAILY Prescribed by: SAHARA RODRIGUEZ on 04/22/19749 Atorvastatin Calcium 10 Mg Tablet, 10 MG PO DAILY Prescribed by: SAHARA RODRIGUEZ on 04/22/19749 Losartan Potassium 25 Mg Tablet, 25 MG PO DAILY, (Reported) Metoprolol Succinate 25 Mg Tab.er.24h, 25 MG PO DAILY Prescribed by: SAHARA RODRIGUEZ on 04/22/19749 Ticagrelor 90 Mg Tablet, 90 MG PO BID Prescribed by: SAHARA RODRIGUEZ on 04/22/19749 Patient Home Medication List Home Medication List Reviewed: Yes Physical Exam-Cardiology Physical Exam Vital Signs/I&O 05/01/19 05/01/19 05/01/19 05/01/19 04:00 07:00 08:00 08:00 Temp 36.4 36.4 Pulse 66 63 65 Resp 22 20 B/P (MAP) 119/64 (82) 131/79 (96) Pulse Ox 98 98 O2 Delivery Room Air Room Air Room Air 05/01/19 05/01/19 11:47 13:00 Temp 36.6 Pulse 68 72 Resp 20 B/P (MAP) 122/74 (90) Pulse Ox 95 O2 Delivery Room Air 05/01/19 00:00 Intake Total 2670 ml Output Total 220 ml Balance 2450 ml Capillary Refill : Less Than 3 Seconds Constitutional: appears stated age, AAO x 3; No apparent distress; well- developed, well-nourished HEENT: PERRL; No discharge; hearing is well preserved, oral hygience is good; No ulceration, No xanthelasmas are seen Neck: No carotid bruit; carotid pulses are 2 + bilaterally Respiratory: chest is bilaterally symmetric, lungs clear to auscultation Cardiovascular: regular rate-rhythm, S1 and S2 Gastrointestinal: soft, round, audible bowel sounds; No spleenomegaly Rectal: deferred Extremities: normal range of motion, non-tender, normal inspection; No clubbing, No cyanosis; no lower extremity edema bilateral; No significant edema Neurologic/Psychiatric: no motor/sensory deficits, alert, normal mood/affect, oriented x 3, power is 5/5 both on sides Skin: normal color; No rash, No ulcerations Data Review Labs Laboratory Tests 04/30/19 15:59: Glucometer 222H 04/30/19 20:31: Glucometer 212H 05/01/19 05:04: Triglycerides Level 104, Cholesterol Level 141, LDL Cholesterol Direct 94, VLDL Cholesterol 21, HDL Cholesterol 31L 05/01/19 10:59: Glucometer 249H A/P-Cardiology Assessment/Admission Diagnosis Chest pain, borderline positive troponin, Recent PCI, Severe cardiomyopathy, Diabetes, History of liver transplant, Meth use, Alcohol use Plan Chest pain, borderline positive troponin, no further chest pain. Continue dual antiplatelet therapy. Continue to monitor. Recent PCI, Severe cardiomyopathy, patient is not on a LifeVest. Continue outpatient cardiomyopathy medication. Diabetes, deferred to the primary team. History of liver transplant, no active issues. Meth use, Alcohol use Thank you for your consultation. Please call me if you have any questions. Josefina Chin MD, FACP, FACC, FSCAI, FHRS, CCDS Interventional Cardiology Cardiac Electrophysiology Vascular Medicine and Endovascular Interventions Clinical Quality Measures AMI/AHF: ASA po Prior to arrival: Yes (324 ASA) DVT/VTE Risk/Contraindication: Risk Factor Score Per Nursin RFS Level Per Nursing on Admit: 2=Moderate Christie CHIN MD Apr 30, 2019 13:33
[2019-04-30] MEDS: TICAGRELOR 90 MG TABLET (BRILINTA) PO SCH (20:08)
--- NOTE | 2019-04-30 20:09 | NUR ---
PT. TOOK OWN HOME MED= BRILINTA 90MG PO
[2019-04-30] MEDS ORDERED: PATIENT MAY USE OWN MEDS, ALL MC SCH (20:15)
[2019-05-01] VITALS (7 sets, daily range): BP systolic 108–149; BP diastolic 62–82
[2019-05-01 05:36] LABS: CHOLESTEROL 141 MG/DL (< 200); HDL CHOLESTEROL 31 MG/DL (40-60); TRIGLYCERIDES 104 MG/DL (<150); VLDL CHOLESTEROL 21 MG/DL (5-40)
[2019-05-01] MEDS: inSUlin ASPART (NovoLOG) 1 UNIT/0.01 ML (CHARGE PER UNIT) SC SCH ×4 (06:37→21:05)
[2019-05-01] MEDS: ASPIRIN E.C. 81 MG (ECOTRIN) TAB PO SCH (09:03)
[2019-05-01] MEDS: NS IV 1000 ML 1,000 ML IV SCH ×2 (09:04→18:36)
[2019-05-01] MEDS: LOSARTAN 25 MG (COZAAR) TAB PO SCH (09:04)
[2019-05-01] MEDS: PANTOPRAZOLE 40 MG (PROTONIX) VIAL IV SCH (09:04)
[2019-05-01] MEDS: TICAGRELOR 90 MG TABLET (BRILINTA) PO SCH ×2 (09:04→19:54)
--- NOTE | 2019-05-01 13:55 | Cardiology Progress Note ---
Cardiology SOAP Progress Note Subjective: No further chest pain. Objective: I&O/Vital Signs 05/01/19 05/01/19 05/01/19 05/01/19 04:00 07:00 08:00 08:00 Temp 36.4 36.4 Pulse 66 63 65 Resp 22 20 B/P (MAP) 119/64 (82) 131/79 (96) Pulse Ox 98 98 O2 Delivery Room Air Room Air Room Air 05/01/19 05/01/19 11:47 13:00 Temp 36.6 Pulse 68 72 Resp 20 B/P (MAP) 122/74 (90) Pulse Ox 95 O2 Delivery Room Air 05/01/19 00:00 Intake Total 2670 ml Output Total 220 ml Balance 2450 ml Weight (Pounds): 240 Weight (Ounces): 0.0 Weight (Calculated Kilograms): [id number] Constitutional: appears stated age, AAO x 3; No apparent distress; well- developed, well-nourished Respiratory: chest is bilaterally symmetric, lungs clear to auscultation Cardiovascular: regular rate-rhythm, S1 and S2 Gastrointestional: soft, round, audible bowel sounds; No spleenomegaly Extremities: normal range of motion, non-tender, normal inspection; No clubbing, No cyanosis; no lower extremity edema bilateral; No significant edema Neurologic/Psychiatric: no motor/sensory deficits, alert, normal mood/affect, oriented x 3, power is 5/5 both on sides Skin: normal color; No rash, No ulcerations Results/Procedures: Labs Laboratory Tests 04/30/19 15:59: Glucometer 222H 04/30/19 20:31: Glucometer 212H 05/01/19 05:04: Triglycerides Level 104, Cholesterol Level 141, LDL Cholesterol Direct 94, VLDL Cholesterol 21, HDL Cholesterol 31L 05/01/19 10:59: Glucometer 249H A/P: Assessment/Dx: Chest pain, borderline positive troponin, Recent PCI, Severe cardiomyopathy, Diabetes, History of liver transplant, Meth use, Alcohol use Plan: Chest pain, borderline positive troponin, no further chest pain. Continue dual antiplatelet therapy. Continue to monitor. Defer to Dr. Rodriguez who will take over the care tomorrow. Recent PCI, Severe cardiomyopathy, patient is not on a LifeVest. Continue outpatient cardiomyopathy medication. Diabetes, deferred to the primary team. History of liver transplant, no active issues. Meth use, Alcohol use Thank you for your consultation. Please call me if you have any questions. Josefina Chin MD, FACP, FACC, FSCAI, FHRS, CCDS Interventional Cardiology Cardiac Electrophysiology Vascular Medicine and Endovascular Interventions Clinical Quality Measures AMI/AHF: ASA po Prior to arrival: Yes (324 ASA) Christie CHIN MD May 01, 2019 13:55
--- NOTE | 2019-05-01 14:51 | Progress Note - Hospitalist ---
Subjective HPI/CC On Admission Date Seen by Provider: May 01, 2019 Time Seen by Provider: 08:30 Chief complaint: Chest pain in patient with recent stent placement last week History of present illness: This is a 68-year-old white male clinic patient of [facility] who is known to me from last week admission for unstable angina requiring multiple stents placed and maintained compliance with discharge medications who presents to the ER with chest pain patient was admitted ruled out acute coronary syndrome and cardiology was consulted for further risk stratification. He denies any chest pain currently and denies any other issues. 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 Check meds and labs Eating and drinking well No other issues Review of Systems Cardiovascular: Chest Pain Objective Exam Vital Signs Vital Signs Date Time Temp Pulse Resp B/P (MAP) Pulse Ox O2 Delivery O2 Flow Rate FiO2 05/01/19 13:00 72 05/01/19 11:47 36.6 20 122/74 (90) 95 Room Air Capillary Refill : Less Than 3 Seconds General Appearance: No Apparent Distress, WD/WN Respiratory: Chest Non Tender, Lungs Clear, Normal Breath Sounds, No Accessory Muscle Use, No Respiratory Distress Cardiovascular: Regular Rate, Rhythm, No Edema, No Gallop, No JVD, No Murmur, Normal Peripheral Pulses Neurologic/Psychiatric: Alert, Oriented x3, No Motor/Sensory Deficits, Normal Mood/Affect Results/Procedures Lab Patient resulted labs reviewed. Assessment/Plan Assessment and Plan Assess & Plan/Chief Complaint Assessment: Chest pain Recent stents placed Plan: Await cardiology recommendation Clinical Quality Measures AMI/AHF: ASA po Prior to arrival: Yes (324 ASA) DVT/VTE Risk/Contraindication: Risk Factor Score Per Nursin RFS Level Per Nursing on Admit: 2=Moderate KEITH CABALLERO DO May 01, 2019 14:51
--- NOTE | 2019-05-01 19:55 | NUR ---
PT. TOOK OWN HOME MED= BRILINTA 90MG PO
[2019-05-02] VITALS (13 sets, daily range): BP systolic 113–149; BP diastolic 63–87
[2019-05-02] MEDS: NS IV 1000 ML 1,000 ML IV SCH ×3 (04:39→21:11)
[2019-05-02] MEDS: inSUlin ASPART (NovoLOG) 1 UNIT/0.01 ML (CHARGE PER UNIT) SC SCH ×4 (06:26→21:11)
--- NOTE | 2019-05-02 08:37 | NUR ---
PRIOR TO B/P MEDICATIONS PULSE WAS 83 B/P WAS 122/71
[2019-05-02] MEDS: TICAGRELOR 90 MG TABLET (BRILINTA) PO SCH ×2 (08:38→21:11)
[2019-05-02] MEDS: ASPIRIN E.C. 81 MG (ECOTRIN) TAB PO SCH (08:38)
[2019-05-02] MEDS: LOSARTAN 25 MG (COZAAR) TAB PO SCH (08:38)
[2019-05-02] MEDS ORDERED: TICA60TA PO (09:13)
--- NOTE | 2019-05-02 09:18 | NUR ---
SPOKE WITH PT WELL GOING OVER THE EXT MED HISTORY TO COMPLETE THE MED REC. PT HAD HIS BOTTLES WITH THEM AND HE WAS ABLE TO TELL ME HOW HE TAKES ALL HIS MEDS. PT STATES HE DOES NOT TAKE ANY OTC MEDS.
[2019-05-02] MEDS ORDERED: fentaNYL INJECTION 100 MCG/2 ML AMP ONE (09:25)
[2019-05-02] MEDS ORDERED: MIDAZOLAM 5 MG/5 ML (VERSED) VIAL ONE (09:25)
[2019-05-02] MEDS ORDERED: LIDOCAINE 1% INJ 20 ML 20 ML VIAL ONE (09:25)
[2019-05-02] MEDS ORDERED: HEParin (CATH LAB) 2,000 ML IV ONE (09:26)
--- NOTE | 2019-05-02 09:28 | Cardiology Progress Note ---
Subjective Date Seen by Provider: May 02, 2019 Time Seen by Provider: 09:25 Subjective/Events-last exam Patient is in bed, complaining of fatigue and loss of energy, no active chest pain Review of Systems General: No Chills, No Night Sweats, No Fatigue, No Malaise, No Appetite, No Other HEENT: No Head Aches, No Visual Changes, No Eye Pain, No Ear Pain, No Dysphasia, No Sinus Congestion, No Post Nasal Drip, No Sore Throat, No Other Pulmonary: No Dyspnea, No Cough, No Pleuritic Chest Pain, No Other Cardiovascular: No: Chest Pain, Palpitations, Orthopnea, Paroxysmal Noc. Dyspnea, Edema, Lt Headedness, Other Objective-Cardiology Exam Last Set of Vital Signs Vital Signs 05/02/19 05/02/19 05/02/19 04:19 07:00 08:00 Temp 36.4 Pulse 67 Resp 18 B/P (MAP) 116/67 (83) Pulse Ox 95 O2 Delivery Room Air Capillary Refill : Less Than 3 Seconds I&O Intake and Output 05/02/19 00:00 Intake Total 3305 ml Output Total 3735 ml Balance -430 ml Intake Oral 2305 ml IV Total 1000 ml Output Urine Total 3735 ml # Bowel Movements 1 General: Alert, Oriented X3, Cooperative HEENT: Atraumatic, PERRLA Neck: Supple, No JVD, No Thyromegaly Lungs: Clear to Auscultation, Normal Air Movement Heart: Regular Rate, Normal S1, Normal S2, No Murmurs Abdomen: Normal Bowel Sounds, Soft, No Tenderness, No Hepatosplenomegaly, No Masses Extremities: No Clubbing, No Cyanosis, No Edema, Normal Pulses, No Tenderness/Swelling Skin: No Rashes, No Breakdown, No Significant Lesion Neuro: Normal Gait, Normal Speech, Strength at 5/5 X4 Ext, Normal Tone, Sensation Intact Psych/Mental Status: Mental Status NL, Mood NL A/P-Cardiology Admission Diagnosis Non-ST elevation myocardial infarction Coronary artery disease Congestive heart failure, chronic compensated left ventricular systolic dysfunction, ischemic cardiomyopathy Hypertension Hyperlipidemia Assessment/Plan Non-ST elevation myocardial infarction, chest pain with mild elevation in troponin level, I would proceed with cardiac catheterization Coronary artery disease, cardiac catheterization done with 2 stents to the right coronary artery, Ita 2.75 time 18 mm and 2.523 mm not overlapping stents expanded to 3.05 proximally and 2.81 distally, had a tortuous LAD system with borderline lesion with dilated left ventricle, I am planning to proceed with cardiac catheterization Congestive heart failure, acute left ventricular systolic dysfunction, ischemic cardiomyopathy, worsening left ventricular function over the past 2 weeks, planning to reevaluate cardiac catheterization and possible stenting to the LAD Hypertension, restart home medication monitor blood pressure Hyperlipidemia, history of liver transplant, start Lipitor low dose and monitor History of liver failure with liver transplant done in 2002. 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
--- NOTE | 2019-05-02 09:29 | Cardiac Procedure Note-CS/ASA ---
Pre-Procedure Note Pre-Op Procedure Note H&P Reviewed The H&P was reviewed, patient examined and no changes noted. Date H&P Reviewed: May 02, 2019 Time H&P Reviewed: 09:29 Conscious Sedation Pre-Proced Time 09:29 ASA Score 3 For ASA 3 and 4: Consider anesthesia and medical clearance. Also, for patients with a history of failed moderate sedation consider anesthesia. Airway Lungs Heart ASA score ASA 1: a normal healthy patient ASA 2: a patient with a mild systemic disease (mid diabetes, controlled hypertension, obesity x ASA 3: a patient with a severe systemic disease that limits activity (angina, COPD, prior Myocardial infarction) ASA 4: a patient with an incapacitating disease that is a constant threat to life (CHF, renal failure) ASA 5: a moribund patient not expected to survive 24 hrs. (ruptured aneurysm) ASA 6: a declared brain- patient whose organs are being harvested. For emergent operations, add the letter E after the classification Mallampati Classification Grade 3 Sedation Plan Analgesia, Amnesia, Plan communicated to team members, Discussed options with patient/fam, Discussed risks with patient/fam The patient is an appropriate candidate to undergo the planned procedure, sedation, and anesthesia. The patient immediately re-assessed prior to indication. SAHARA LONG MD May 02, 2019 09:29
--- NOTE | 2019-05-02 09:32 | NUR ---
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
[2019-05-02] MEDS ORDERED: ADENOSINE 3 MG/1 ML (ADENOSCAN) 30ML VIAL IV ONE (10:02)
[2019-05-02] MEDS ORDERED: HEParin 1000 UNIT/ML (10ML VIAL) FOR BOLUS ONE (10:04)
[2019-05-02] MEDS ORDERED: NITRO DRIP 25000 MCG/D5W 250 ML IV ONE (10:20)
[2019-05-02] MEDS: PANTOPRAZOLE 40 MG (PROTONIX) VIAL IV SCH (10:23)
[2019-05-02] MEDS ORDERED: TICAGRELOR 90 MG TABLET (BRILINTA) PO ONE (10:28)
[2019-05-02] MEDS ORDERED: ASPIRIN 81 MG CHEW (CHILDREN'S ASA) ONE (10:28)
[2019-05-02] MEDS ORDERED: PATIENT MAY USE OWN MEDS, ALL PO SCH (10:30)
[2019-05-02] MEDS ORDERED: NS IV 1000 ML 1,000 ML IV SCH (10:30)
--- NOTE | 2019-05-02 10:37 | Cardiac Cath Report ---
Cardiac Cath Report Physician (s)/Water Restoration Technician (s) Physician SAHARA LONG MD Pre-Procedure Diagnosis Pre-Procedure Diagnosis: coronary artery disease, non-ST elevation DC Post-Procedure Note Procedure Start Date: May 02, 2019 Name of Procedure: Left heart catheterization FFR to the LAD Stent to the LAD Findings/Procedure Note PROCEDURE NOTE: 68 years old gentleman with history of coronary artery disease had 2 stents to the right coronary artery and borderline lesion in the LAD, admitted with chest pain and elevated troponin, decided to proceed with cardiac catheterization. After explaining the procedure to the patient, all pros and cons were explained, all questions were answered. The patient signed the consent and then he was placed on the cardiac catheterization laboratory. Groin was prepped SL fashion local anesthesia was used. Sheath placed in the left femoral artery, Prabhjot right advanced to the right coronary artery and angiographic was done then it was prolapsed of the left ventricular cavity and left ventricular gram was done pullback LV to aorta and then I advanced FL guide to the left system, FFR wire was advanced through the LAD and parked distally, baseline FFR was 0.88, after 30 seconds of Adenosine challenge FFR was 0.75, I proceeded with balloon angioplasty given total of 7000 of heparin, 2.520 mm emerge balloon was used then I deployed resolute integrity 2.5 time 18 mm expanded to 2.65 mm with excellent results, distally there are 2 other lesions the artery is fairly smaller in size, diagonal artery has a lesion that was treated medically At the end of the procedure the sheath was removed. Closure device was used FINDINGS: Hemodynamics LV 108 over 5, end-diastolic pressure 5 Aorta 109/58 mean of 78 ANATOMY: Left Main is free of obstructive disease Left Anterior Descending is moderate in size with severe stenosis at the midportion, FFR after challenge was 0.75, successful balloon angioplasty then deployment of resolute integrity 2.5 x 18 mm stent expanded to 2.65 with excellent results, distal to the stent there were 2 lesions the artery is smaller, the diagonal artery has proximal lesion also a smaller artery Left Circumflex is moderate in size with no obstructive disease Right Coronory Artery has patent stent in the proximal and midportion LV Gram is prominent with improvement in the left ventricular function estimated ejection fraction 35-40 percent CONCLUSION: 1. Severe mid LAD stenosis confirmed by FFR of 0.75, successful balloon ang ioplasty then deployment of resolute integrity 2.5 x 18 mm expanded to 2.65 mm with excellent results 2. 2 other lesions at the distal LAD, the artery is fairly smaller artery, moderate stenosis at the proximal diagonal artery that is a smaller artery 3. Patent stent in the proximal and midright coronary artery with mild disease 4. Prominent left ventricle with diffuse left ventricular hypokinesia estimated ejection fraction 35-40 percent DISCUSSION AND RECOMMENDATION: Continue to maximize medical therapy, educated on compliance with medication Anesthesia Type: Conscious Sedation Estimated blood loss (mL): 25 ml Contrast Amount: 140 ml Total Radiation Dose: 951 mGy Post-Procedure Diagnosis Post-operative diagnosis: Non-ST elevation myocardial infarctions Coronary artery disease Hypertension Hyperlipidemia SAHARA LONG MD May 02, 2019 10:37
[2019-05-02] MEDS ORDERED: NS IV 1000 ML 1,000 ML ONE (10:38)
--- NOTE | 2019-05-02 11:39 | NUR ---
CALLED ICU AT THIS TIME AND WAS INFORMED THIS PATIENT HAD CARDIAC CATH INTERVENTIONS AND WILL REMAIN IN CU-[address] LONG.
--- NOTE | 2019-05-02 14:39 | Progress Note ---
Subjective Subjective/Events-last exam Had repeat cath today, seen just after, still somewhat drowsy and complaining of groin pain. Denies other concerns. Objective Exam Last Set of Vital Signs Vital Signs Date Time Temp Pulse Resp B/P (MAP) Pulse Ox O2 Delivery O2 Flow Rate FiO2 05/02/19 12:32 70 05/02/19 12:00 16 116/73 (87) 98 Room Air 05/02/19 08:00 37.0 Capillary Refill : Less Than 3 Seconds I&O Intake and Output 05/02/19 00:00 Intake Total 3305 ml Output Total 3735 ml Balance -430 ml Intake Oral 2305 ml IV Total 1000 ml Output Urine Total 3735 ml # Bowel Movements 1 General: Alert, No Acute Distress Lungs: Clear to Auscultation, Normal Air Movement Heart: Regular Rate, No Murmurs Abdomen: Normal Bowel Sounds, Soft, No Tenderness Extremities: No Edema Psych/Mental Status: Mental Status NL Results/Procedures Lab Laboratory Tests 05/01/19 16:02: Glucometer 218H 05/01/19 21:00: Glucometer 233H 05/02/19 06:21: Glucometer 241H 05/02/19 12:32: Glucometer 238H Assessment/Plan Assessment/Plan (1) Unstable angina Status: Acute Assessment & Plan: With borderline troponin, cath done with stent to mid LAD, right coronary stent patent. Appreciate Cardiology recommendations. (2) Diabetes mellitus type 2 with complications Status: Chronic Assessment & Plan: ADA diet, sliding scale insulin. (3) Congestive heart failure Status: Acute Assessment & Plan: EF 30-35% on echo 04/30 Qualifiers: Qualified Codes: I50.23 - Acute on chronic systolic (congestive) heart failure (4) At risk for deep venous thrombosis Status: Acute Assessment & Plan: SCDs Clinical Quality Measures AMI/AHF: ASA po Prior to arrival: Yes (324 ASA) DVT/VTE Risk/Contraindication: Risk Factor Score Per Nursin RFS Level Per Nursing on Admit: 2=Moderate RENETTA AGUSTIN MD May 02, 2019 14:38
[2019-05-03] VITALS: BP 113/67
[2019-05-03 03:25] LABS: HEMOGLOBIN 11.4 G/DL (13.3-17.7); MEAN PLATELET VOLUME 10.9 FL (7.4-10.4); RED CELL DISTRIBUTION WIDTH 14.1 % (10.0-14.5); WHITE BLOOD COUNT 6.5 10^3/uL (4.3-11.0)
[2019-05-03 03:44] LABS: BUN/CREATININE RATIO 17; CALCIUM 8.3 MG/DL (8.5-10.1); CARBON DIOXIDE 25 MMOL/L (21-32); CHLORIDE 108 MMOL/L (98-107); CREATININE SERUM 0.75 MG/DL (0.60-1.30); GFR ESTIMATED > 60; GLUCOSE 178 MG/DL (70-105); POTASSIUM 3.9 MMOL/L (3.6-5.0); SODIUM 140 MMOL/L (135-145)
[2019-05-03 04:00] VITALS: BP 114/58
[2019-05-03] MEDS: NS IV 1000 ML 1,000 ML IV SCH (04:41)
[2019-05-03] MEDS: inSUlin ASPART (NovoLOG) 1 UNIT/0.01 ML (CHARGE PER UNIT) SC SCH ×2 (06:28→10:42)
--- NOTE | 2019-05-03 07:12 | Cardiology Progress Note ---
Subjective Date Seen by Provider: May 03, 2019 Time Seen by Provider: 07:09 Subjective/Events-last exam Patient is laying down in bed, feeling well, groin is healing well. Denied any chest pain Review of Systems General: No Chills, No Night Sweats, No Fatigue, No Malaise, No Appetite, No O ther HEENT: No Head Aches, No Visual Changes, No Eye Pain, No Ear Pain, No Dys phasia, No Sinus Congestion, No Post Nasal Drip, No Sore Throat, No Other Pulmonary: No Dyspnea, No Cough, No Pleuritic Chest Pain, No Other Cardiovascular: No: Chest Pain, Palpitations, Orthopnea, Paroxysmal Noc. Dyspnea, Edema, Lt Headedness, Other Objective-Cardiology Exam Last Set of Vital Signs Vital Signs 05/03/19 04:00 Temp 36.6 Pulse 64 Resp 20 B/P (MAP) 114/58 (76) Pulse Ox 97 O2 Delivery Room Air Capillary Refill : Less Than 3 Seconds I&O Intake and Output 05/02/19 23:59 Intake Total 2700 ml Output Total 3850 ml Balance -1150 ml Intake Oral 700 ml IV Total 2000 ml Output Urine Total 3850 ml # Bowel Movements 1 General: Alert, Oriented X3, Cooperative, No Acute Distress HEENT: Atraumatic, PERRLA Neck: Supple, No JVD, No Thyromegaly Lungs: Clear to Auscultation, Normal Air Movement Heart: Regular Rate, Normal S1, Normal S2, No Murmurs Abdomen: Normal Bowel Sounds, Soft, No Tenderness Extremities: No Clubbing, No Cyanosis, No Edema Skin: No Rashes, No Breakdown, No Significant Lesion Neuro: Normal Gait, Normal Speech, Strength at 5/5 X4 Ext, Normal Tone, Sensation Intact Psych/Mental Status: Mental Status NL Results Lab Laboratory Tests 05/03/19 03:03 A/P-Cardiology Admission Diagnosis Non-ST elevation myocardial infarction Coronary artery disease Congestive heart failure, chronic compensated left ventricular systolic dysfunction, ischemic cardiomyopathy Hypertension Hyperlipidemia Assessment/Plan Non-ST elevation myocardial infarction, chest pain with mild elevation in troponin level, underwent cardiac catheterization and stenting to the LAD Coronary artery disease, cardiac catheterization done with 2 stents to the right coronary artery, Ita 2.75 x 18 mm and 2.523 mm not overlapping stents expanded to 3.05 proximally and 2.81 distally, had a tortuous LAD system with borderline lesion with dilated left ventricle, repeat cardiac catheterization was done on May 02, 2019, FFR through the LAD was significant, I proceeded with stenting the LAD using resolute integrity 2.5 x 18 mm expanded to 2.65 with excellent results, still have borderline lesion in the mid to distal LAD that will be treated conservatively at this time. Patient had moderate stenosis at the proximal diagonal branch that is a smaller artery, medical therapy is recommended Congestive heart failure, acute left ventricular systolic dysfunction, ischemic cardiomyopathy, worsening left ventricular function over the past 2 weeks, stenting to the LAD was done, still having frequent PVCs I will reevaluate 2-D echo Frequent premature ventricular contractions, continue on beta blockers and monitor tolerance and response Hypertension, tolerating medication well. Continue to monitor Hyperlipidemia, history of liver transplant, start Lipitor low dose and monitor Diabetes mellitus, followed and managed by primary care physician History of liver failure with liver transplant done in 2002. 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
[2019-05-03] MEDS ORDERED: METO-370 PO (07:15)
--- NOTE | 2019-05-03 07:16 | Discharge Inst-Post CATH ---
Discharge Inst-CATH/EP Problems Reviewed?: Yes Post Cardiac Cath/EP D/C Inst Follow Up/Plan Appointment with Dr. LONG's office in one to 2 weeks <b>CARDIAC CATH/EP PROCEDURE DISCHARGE INSTRUCTIONS</b> ACTIVITY * Go Home directly and rest. * Limit activity of the leg (or wrist if it was used) for 7 days including a erobics, swimming, jogging, bicycling, etc. * Restrict stair-climbing for 7 days if possible, if not, climb up with your non-cath leg, then bring together on the same step. * Avoid lifting, pushing, pulling or excessive movement of the affected extre mity for 7 days. * Customary sexual activity may be resumed after 2 days-use caution not to use a position that strains or causes pain to the affected extremity. * No driving for 24 hours. * NO SMOKING. * Avoid straining for bowel movements for 7 days. * Gentle walking on level ground is allowed. * Returning to work will depend on the type of procedure and the results. Your d octor will discuss this with you. CALL YOUR DOCTOR FOR ANY OF THE FOLLOWING: *If bleeding from the puncture site occurs- Apply gentle pressure to site with clean cloth and call your doctor or EMS. * If a knot or lump forms under the skin, increases in size, or causes pain. * If bruising appears to be worsening or moving further down your leg instead of disappearing. * Temperature above 101 F. CARE OF YOUR GROIN INCISION; * Bruising or purple discoloration of the skin near the puncture site is common. * You may shower only, no bathtub bathing for 5 days. Be careful to avoid slipping as your leg may feel stiff. * If a closure device was used on your femoral artery, please see the attached guide regarding care of the device and your leg. * Leave dressing on FOR 24 hours. CARE OF YOUR WRIST INCISION; * Bruising or purple discoloration of the skin near the puncture site is common. * You may shower. * DO NOT submerge wrist. * Leave dressing on FOR 24 hours. SAHARA LONG MD May 03, 2019 07:16
[2019-05-03] MEDS: LOSARTAN 25 MG (COZAAR) TAB PO SCH (07:51)
[2019-05-03] MEDS: ASPIRIN E.C. 81 MG (ECOTRIN) TAB PO SCH (07:51)
[2019-05-03] MEDS: TICAGRELOR 90 MG TABLET (BRILINTA) PO SCH (07:51)
[2019-05-03 08:00] VITALS: BP 131/79
[2019-05-03] MEDS ORDERED: METF-399 PO (09:00)
[2019-05-03] MEDS ORDERED: PANTOPRAZOLE 40 MG (PROTONIX) TAB PO SCH (09:00)
[2019-05-03] MEDS ORDERED: meTOproloL SUCCINATE 50 MG (TOPROL XL) TAB PO SCH (09:00)
--- NOTE | 2019-05-03 09:02 | Discharge Instructions ---
Discharge [facility] Discharge Medications New, Converted or Re-Newed RX: Transmitted to Pharmacy New Medications: Metformin HCl (Metformin HCl) 1,000 Mg Tablet 1000 MG PO BID, #60 TAB 0 Refills Metoprolol Succinate (Metoprolol Succinate) 50 Mg Tab.er.24h 50 MG PO DAILY, #30 TAB 2 Refills Continued Medications: Aspirin (Aspirin EC) 81 Mg Tablet.dr 81 MG PO DAILY, #100 TAB 3 Refills Atorvastatin Calcium (Lipitor) 10 Mg Tablet 10 MG PO DAILY, #30 TAB 3 Refills Losartan Potassium (Losartan Potassium) 25 Mg Tablet 25 MG PO DAILY Nitroglycerin (Nitroglycerin) 0.4 Mg Tab.subl 0.4 MG SL, #24 GIVE 1 TABLET SL EVERY 5 MIN. PRN CHEST PAIN - MAX IS 3 TABLETS IN 15 MIN. PERIOD. Ticagrelor (Brilinta) 60 Mg Tablet 60 MG PO BID, TAB Discontinued Medications: Metoprolol Succinate (Metoprolol Succinate) 25 Mg Tab.er.24h 25 MG PO DAILY, #30 TAB 2 Refills Patient Instructions Goal/Follow Up Appt: Follow up with Dr. Quiñonez on 05/06 at 11:40 am. Follow up with Dr. Rodriguez as directed. Return to The Hospital For: Chest pain, shortness of breath, inability to keep down medications. Activity & Diet Discharge Diet: ADA Diet, Cardiac Diet Copy Copies To 1: SUSAN QUIÑONEZ MD,RENETTA Colbert MD May 03, 2019 09:02
--- NOTE | 2019-05-03 09:03 | Discharge Summary ---
Discharge Summary Hospital Course Problems/Diagnosis: (1) Unstable angina Assessment & Plan: With borderline troponin, cath done with stent to mid LAD, right coronary stent patent. Appreciate Cardiology recommendations. (2) Diabetes mellitus type 2 with complications Assessment & Plan: ADA diet, sliding scale insulin. Resumed metformin on discharge. (3) Congestive heart failure Assessment & Plan: EF 30-35% on echo 04/30 Qualifiers: Qualified Codes: I50.23 - Acute on chronic systolic (congestive) heart failure Hospital Course Date of Admission: May 02, 2019 at 15:02 Admission Diagnosis : Family Physician/Provider: Andreas Quiñonez MD Date of Discharge: 05/03/19 Discharge Diagnosis: See problem list Hospital Course: See problem list Labs and Pending Lab Test: Laboratory Tests 05/02/19 12:32: Glucometer 238H 05/02/19 16:53: Glucometer 197H 05/02/19 21:04: Glucometer 340H 05/03/19 03:03: White Blood Count 6.5, Red Blood Count 3.91L, Hemoglobin 11.4L, Hematocrit 35L, Mean Corpuscular Volume 90, Mean Corpuscular Hemoglobin 29, Mean Corpuscular Hemoglobin Concent 33, Red Cell Distribution Width 14.1, Platelet Count 357, Mean Platelet Volume 10.9H, Sodium Level 140, Potassium Level 3.9, Chloride Level 108H, Carbon Dioxide Level 25, Anion Gap 7, Blood Urea Nitrogen 13, Creatinine 0.75, Estimat Glomerular Filtration Rate > 60, BUN/Creatinine Ratio 17, Glucose Level 178H, Calcium Level 8.3L 05/03/19 06:20: Glucometer 202H Home Meds Active Metformin HCl 1,000 Mg Tablet 1,000 Mg PO BID Metoprolol Succinate 50 Mg Tab.er.24h 50 Mg PO DAILY Lipitor (Atorvastatin Calcium) 10 Mg Tablet 10 Mg PO DAILY Aspirin EC (Aspirin) 81 Mg Tablet.dr 81 Mg PO DAILY Metoprolol Succinate 25 Mg Tab.er.24h 25 Mg PO DAILY Reported Brilinta (Ticagrelor) 60 Mg Tablet 60 Mg PO BID Nitroglycerin 0.4 Mg Tab.subl 0.4 Mg SL GIVE 1 TABLET SL EVERY 5 MIN. PRN CHEST PAIN - MAX IS 3 TABLETS IN 15 MIN. PERIOD. Losartan Potassium 25 Mg Tablet 25 Mg PO DAILY Assessment/Pt DC Instructions See above Discharge Diet: ADA Diet, Cardiac Diet Discharge Physical Examination Allergies: Coded Allergies: No Known Drug Allergies (Unverified , 12/14/17) General Appearance: No Apparent Distress, WD/WN Respiratory: Lungs Clear, Normal Breath Sounds Cardiovascular: Regular Rate, Rhythm, No Murmur Gastrointestinal: Normal Bowel Sounds, Non Tender, Soft Neurologic/Psychiatric: Alert, Normal Mood/Affect Copy Copies To 1: ANDREAS QUIÑONEZ MD Discharge Summary Date of Admission May 02, 2019 at 15:02 Date of Discharge Discharge Date: May 03, 2019 Admission Diagnosis Assessment: Chest pain Recent coronary stent placements Hypertension Hyperlipidemia Clinical Quality Measures AMI/AHF: ASA po Prior to arrival: Yes (324 ASA) DVT/VTE Risk/Contraindication: Risk Factor Score Per Nursin RFS Level Per Nursing on Admit: 2=Moderate RENETTA AGUSTIN MD May 03, 2019 09:03
[2019-05-03 11:11] VITALS: BP 131/79
--- NOTE | 2019-05-10 09:34 | Physician Query Clarification ---
PQ-Conflicting Diagnosis Admission/Discharge Admission Date: May 02, 2019 at 15:02 Discharge Date: May 03, 2019 at 11:05 The medical record reflects the following clinical scenario: History/Risk Factors: NSTEMI, ICM, CAD w/unstable angina, HTN w/chronic systolic CHF, DM, COPD Clinical Findings: BNP 45.9 Treatment: Toprol 25 mg > 50mg Question: Do you agree with the impression of the chronic systolic CHF per Dr. Rodriguez. Please document a response in Progress Note or Discharge Summary. 1. Yes 2. No 3. Other, with explanation of clinical findings 4. Clinically undetermined, no explanation for clinical findings. Please remember a lack of response to the above will prompt a phone page by CDI/Coding staff. In responding to this query, please exercise your independent professional judgment. The purpose of this communication is to more accurately reflect the complexity of your patients condition. The fact that a question is asked does not imply that any particular answer is desired or expected. Thank you for your timely response to this clarification. Requestors name: Bonnie THIS PHYSICIAN QUERY FORM IS A PERMANENT PART OF THE MEDICAL RECORD [address] May 10, 2019 09:34
== END 2019-05-03 11:05 | disposition home or self-care (01) | DRG 247 ==
LOC: ER 01:00 → EDUNIT# 01:00 → 4TH 02:50 → UNDOADMOB 02:50 → 4TH 04:10 → ICU 05-02 10:50 → OBSVTOIN 05-02 15:02 → INTOOBSV 05-02 15:02 → UNDODISIN 05-03 11:05
PROVIDERS: ADMIT Internal Medicine; ATTEND Family Medicine
PROC: 027034Z Dilation of Coronary Artery, One Artery with Drug-eluting Intraluminal Device, Percutaneous Approach (ICD-10-PCS; principal; 2019-05-02)
PROC: 4A023N7 Measurement of Cardiac Sampling and Pressure, Left Heart, Percutaneous Approach (ICD-10-PCS; 2019-05-02)
PROC: B2111ZZ Fluoroscopy of Multiple Coronary Arteries using Low Osmolar Contrast (ICD-10-PCS; 2019-05-02)
PROC: B2151ZZ Fluoroscopy of Left Heart using Low Osmolar Contrast (ICD-10-PCS; 2019-05-02)
DX: I21.4 Non-ST elevation (NSTEMI) myocardial infarction (principal); I25.110 Atherosclerotic heart disease of native coronary artery with unstable angina pectoris; I25.5 Ischemic cardiomyopathy; I11.0 Hypertensive heart disease with heart failure; I50.22 Chronic systolic (congestive) heart failure; E11.42 Type 2 diabetes mellitus with diabetic polyneuropathy; I49.3 Ventricular premature depolarization; J44.9 Chronic obstructive pulmonary disease, unspecified; E78.5 Hyperlipidemia, unspecified; F32.9 Major depressive disorder, single episode, unspecified; Z94.4 Liver transplant status; F15.90 Other stimulant use, unspecified, uncomplicated; F12.90 Cannabis use, unspecified, uncomplicated; Z72.89 Other problems related to lifestyle; Z87.891 Personal history of nicotine dependence; Z95.5 Presence of coronary angioplasty implant and graft; Z89.421 Acquired absence of other right toe(s); Z79.4 Long term (current) use of insulin
CPT/HCPCS: 36415; 71045; 71275; 80048; 80053; 80061; 80306; 80320; 81000; 82962; 83690; 83735; 83874; 83880; 84484; 85025; 85027; 85379; 85610; 85730; 87081; 93005; 93041; 93306; 93308; 93458; G0378

== ENCOUNTER 2019-05-04 18:57 | Inpatient (IN) | payer MEDICARE, OTHER ==
[2019-05-03] MEDS: NS IV 1000 ML 1,000 ML IV SCH (19:45)
[~2019-05-04] VITALS: Ht 182 cm; Wt 102.3 kg
[~2019-05-04 18:57] MED LIST changes: +LOSA25TA41 PO; +METO-370 PO; +NITR0.4T42 SL; +TICA60TA PO
[2019-05-04] MEDS ORDERED: NITROGLYCERIN 0.4 MG SL TABS BTL 25'S SL ONE (18:58)
--- NOTE | 2019-05-04 19:08 | NUR ---
lab support technician contacted at this time and consent obatined
[2019-05-04] MEDS ORDERED: morphine INJ 10 MG/ML 1ML (SYR OR VIAL) IVP STA (19:14)
[2019-05-04] MEDS ORDERED: morphine INJ 10 MG/ML 1ML (SYR OR VIAL) ONE (19:14)
[2019-05-04] MEDS ORDERED: ONDANSETRON 4 MG/2 ML (SDV) Z0FRAN IVP ONE (19:15)
[2019-05-04] MEDS ORDERED: ONDANSETRON 4 MG/2 ML (SDV) Z0FRAN ONE (19:15)
[2019-05-04] MEDS ORDERED: NITROGLYCERIN 0.4 MG SL TABS BTL 25'S SL PRN (19:15)
[2019-05-04] MEDS ORDERED: HEParin 1000 UNIT/ML (10ML VIAL) FOR BOLUS ONE ×2 (19:17→19:38)
[2019-05-04 19:22] LABS: BASOPHILS % (AUTO) 0 % (0-10); EOSINOPHILS # (AUTO) 0.3 10^3/uL (0.0-0.3); EOSINOPHILS % (AUTO) 4 % (0-10); HEMATOCRIT 38 % (40-54); HEMOGLOBIN 12.9 G/DL (13.3-17.7); LYMPHOCYTES # (AUTO) 2.2 X 10^3 (1.0-4.0); LYMPHOCYTES % (AUTO) 28 % (12-44); MEAN CORPUSCULAR HEMOGLOBIN 30 PG (25-34); MEAN CORPUSCULAR HGB CONC 34 G/DL (32-36); MEAN CORPUSCULAR VOLUME 88 FL (80-99); MEAN PLATELET VOLUME 11.4 FL (7.4-10.4); MONOCYTES % (AUTO) 13 % (0-12); NEUTROPHILS # (AUTO) 4.4 X 10^3 (1.8-7.8); NEUTROPHILS % (AUTO) 55 % (42-75); PLATELET COUNT 430 10^3/uL (130-400); RED CELL DISTRIBUTION WIDTH 14.1 % (10.0-14.5)
[2019-05-04 19:23] LABS: SMEAR SCAN COMMENT YES
--- NOTE | 2019-05-04 19:23 | ED Chest Pain ---
General Chief Complaint: Chest Pain Stated Complaint: CP Nursing Triage Note: Pt to Rm 3 via [facility] with C/O left sided chest pain that started approx 1830. Pt has a cardiac Hx, has gotten 3 stents in the past 2 weeks. Pt denies any lightheadedness or SOB at this time. Pt rates pain 10/10 when EMS picked him up, went down to 8/10 after 324mg of ASA. Nursing Sepsis Screen: No Definite Risk Source: patient, EMS, old records Exam Limitations: no limitations History of Present Illness Date Seen by Provider: May 04, 2019 Time Seen by Provider: 18:50 Initial Comments This 68-year-old man presents to the emergency room with chest pain that started around 18:00. He has significant cardiac history with recent cardiac catheterizations. He had 2 stents placed on April 23. He had an additional stent placed May 02. Aspirin 324 mg was administered by EMS. Patient did not take any nitroglycerin at home because he was uncertain of how to take it. He missed both doses of Brilinta yesterday. He took his morning dose of Brilinta when he started having pain this evening. EMS gave fentanyl 50 g by IV route. Pain improved from 8/10-6/10. Pain is in the left chest. Patient has history of methamphetamine use but states he has not used in about 3 weeks. He has associated mild nausea, mild dyspnea, and mild lightheadedness. Allergies and Home Medications Allergies Coded Allergies: No Known Drug Allergies (Unverified , 12/14/17) Home Medications Aspirin 81 Mg Tablet.dr, 81 MG PO DAILY Prescribed by: SAHARA RODRIGUEZ on 04/22/19 0750 Atorvastatin Calcium 10 Mg Tablet, 10 MG PO DAILY Prescribed by: SAHARA RODRIGUEZ on 04/22/19 0750 Losartan Potassium 25 Mg Tablet, 25 MG PO DAILY, (Reported) Metformin HCl 1,000 Mg Tablet, 1,000 MG PO BID Prescribed by: RENETTA AGUSTIN on 05/03/19 0900 Metoprolol Succinate 50 Mg Tab.er.24h, 50 MG PO DAILY Prescribed by: SAHARA RODRIGUEZ on 05/03/19 0819 Ticagrelor 60 Mg Tablet, 60 MG PO BID, (Reported) Patient Home Medication List Home Medication List Reviewed: Yes Review of Systems Review of Systems Constitutional: no symptoms reported EENTM: No Symptoms Reported Respiratory: No Symptoms Reported Cardiovascular: See HPI Gastrointestinal: See HPI Genitourinary: No Symptoms Reported Musculoskeletal: no symptoms reported Skin: no symptoms reported Psychiatric/Neurological: No Symptoms Reported Endocrine: No Symptoms Reported Hematologic/Lymphatic: No Symptoms Reported Past Xekmzvf-Dbxkiy-Netmny Hx Past Med/Social Hx: Reviewed and Corrections made Patient Social History Alcohol Beverage of Choice: Beer Drug of Choice: HX +IV METH AND COCAINE, THC USE. NOW SMOKES METH AND OCCASIONALLY THC Type Used: Cigarettes Former Smoker, Quit: May 08, 1990 2nd Hand Smoke Exposure: No Recent Foreign Travel: No Contact w/Someone Who Travel: No Recent Infectious Disease Expo: No Recent Hopitalizations: Yes (ND-HEART CATH- 2 STENTS PLACED) Physical Abuse: No Sexual Abuse: No Mistreated: No Fear: No Immunizations Up To Date Tetanus Booster (TDap): Unknown Date of Pneumonia Vaccine: Aug 03, 2011 Date of Influenza Vaccine: Sep 01, 2017 Seasonal Allergies Seasonal Allergies: No Past Medical History Surgeries: Yes (several sx on both feet with toes amputed on right foot) Amputation, Appendectomy, Coronary Stent, Gallbladder, Liver Transplant, Orthopedic, Tonsillectomy Respiratory: No Currently Using CPAP: No Currently Using BIPAP: No Cardiac: Yes Coronary Artery Disease, Hypertension Neurological: Yes (NEUROPATHY IN FEET) Neuropathy Reproductive Disorders: No Sexually Transmitted Disease: No HIV/AIDS: No Genitourinary: Yes Prostate Problems Gastrointestinal: Yes (HEPATITIS C--S/P INTERFERON TREATMENT; LIVER TRANSPLANT 2002) Liver Disease/Jaundice, Hepatitis, Cirrhosis Musculoskeletal: Yes (TOES AMPUTATED. CELLULITIS/OSTEOMYELITIS OF FEET/TOES) Amputee, Arthritis, Chronic Back Pain Endocrine: Yes ([id number] NOT CHECK BLOOD SUGARS EVERDAY) Diabetes, Non-Insulin dep HEENT: Yes (EDENTULOUS) Loss of Vision: Left Hearing Impairment: Denies Cancer: No Psychosocial: No (NEVER TAKEN MEDS) Depression Integumentary: Yes (CYST LEFT NECK; CELLULITIS/OSTEOMYELITIS OF FEET) Blood Disorders: No Adverse Reaction/Blood Tranf: No (HAS HAD BLOOD WITH NO REACTION) Family Medical History Myocardial infarction 19 FATHER No Pertinent Family Hx Physical Exam Vital Signs Vital Signs - First Documented 05/04/19 19:04 Temp 37.5 Pulse 93 Resp 20 Pulse Ox 98 O2 Delivery Room Air Capillary Refill : Less Than 3 Seconds Height, Weight, BMI Height: 6'0.00" Weight: 240lbs. 0.0oz. 108.396236id; 29.00 BMI Method:Stated General Appearance: WD/WN, Mild Distress HEENT: PERRL/EOMI, Normal ENT Inspection Neck: Normal Inspection Respiratory: No Accessory Muscle Use, No Respiratory Distress, Crackles (bilateral bases), Other (anterior chest tender to palpation) Cardiovascular: Regular Rate, Rhythm, No Edema, Systolic Murmur, Other (PVC's) Gastrointestinal: Non Tender, Soft Extremity: Normal Capillary Refill, No Pedal Edema, Other (amputations of the right toes. Pedal pulses faint) Neurologic/Psychiatric: Alert, Oriented x3, No Motor/Sensory Deficits, Normal Mood/Affect, lingo cleaner II-XII Norm as Tested Skin: Normal Color, Warm/Dry Progress/Results/Core Measures Results/Orders Lab Results Laboratory Tests Test 05/04/19 19:00 Range/Units White Blood Count 8.0 4.3-11.0 10^3/uL Red Blood Count 4.32 L 4.35-5.85 10^6/uL Hemoglobin 12.9 L 13.3-17.7 G/DL Hematocrit 38 L 40-54 % Mean Corpuscular Volume 88 80-99 FL Mean Corpuscular Hemoglobin 30 25-34 PG Mean Corpuscular Hemoglobin Concent 34 32-36 G/DL Red Cell Distribution Width 14.1 10.0-14.5 % Platelet Count 430 H 130-400 10^3/uL Mean Platelet Volume 11.4 H 7.4-10.4 FL Neutrophils (%) (Auto) 55 42-75 % Lymphocytes (%) (Auto) 28 12-44 % Monocytes (%) (Auto) 13 H 0-12 % Eosinophils (%) (Auto) 4 0-10 % Basophils (%) (Auto) 0 0-10 % Neutrophils # (Auto) 4.4 1.8-7.8 X 10^3 Lymphocytes # (Auto) 2.2 1.0-4.0 X 10^3 Monocytes # (Auto) 1.0 0.0-1.0 X 10^3 Eosinophils # (Auto) 0.3 0.0-0.3 10^3/uL Basophils # (Auto) 0.0 0.0-0.1 10^3/uL Prothrombin Time 12.4 12.2-14.7 SEC INR Comment 0.9 0.8-1.4 Activated Partial Thromboplast Time 29 24-35 SEC Sodium Level 136 135-145 MMOL/L Potassium Level 4.3 3.6-5.0 MMOL/L Chloride Level 101 98-107 MMOL/L Carbon Dioxide Level 28 21-32 MMOL/L Anion Gap 7 5-14 MMOL/L Blood Urea Nitrogen 18 7-18 MG/DL Creatinine 0.90 0.60-1.30 MG/DL Estimat Glomerular Filtration Rate > 60 BUN/Creatinine Ratio 20 Glucose Level 289 H 70-105 MG/DL Calcium Level 9.9 8.5-10.1 MG/DL Corrected Calcium 10.0 8.5-10.1 MG/DL Magnesium Level 2.0 1.6-2.4 MG/DL Total Bilirubin 0.8 0.1-1.0 MG/DL Aspartate Amino Transf (AST/SGOT) 29 5-34 U/L Alanine Aminotransferase (ALT/SGPT) 50 0-55 U/L Alkaline Phosphatase 181 H 40-136 U/L Myoglobin 17.9 10.0-92.0 NG/ML Troponin I < 0.028 <0.028 NG/ML B-Type Natriuretic Peptide 115.1 H <100.0 PG/ML Total Protein 7.8 6.4-8.2 GM/DL Albumin 3.9 3.2-4.5 GM/DL Smear Scan YES My Orders Orders - SHAYNA GOMEZ MD Cbc With Automated Diff (05/04/19 19:14) Magnesium (05/04/19 19:14) Chest 1 View, Ap/Pa Only (05/04/19 19:14) Ekg Tracing (05/04/19 19:14) Cardiac Profile 1 (05/04/19 19:14) Comprehensive Metabolic Panel (05/04/19 19:14) Myoglobin Serum (05/04/19 19:14) Protime With Inr (05/04/19 19:14) Partial Thromboplastin Time (05/04/19 19:14) O2 (05/04/19 19:14) Monitor-Rhythm Ecg Trace Only (05/04/19 19:14) Lipid Panel (05/05/19 06:00) Ed Iv/Invasive Line Start (05/04/19 19:14) BNP (05/04/19 19:14) Nitroglycerin 0.4 Mg Btl 25's (Nitrostat (05/04/19 19:15) Morphine Injection (Morphine Injection (05/04/19 19:14) Ondansetron Injection (Zofran Injectio (05/04/19 19:15) Heparin Injection (Heparin Injection) (05/04/19 19:30) Medications Given in ED Current Medications Medications Dose Ordered Sig/Merrick Route Start Time Stop Time Status Last Admin Dose Admin Nitroglycerin 0.4 mg UD PRN SL 05/04/19 19:15 05/04/19 19:02 0.4 MG Ondansetron HCl 8 mg ONCE ONCE IVP 05/04/19 19:15 05/04/19 19:16 DC 05/04/19 19:18 8 MG Vital Signs/I&O 05/04/19 05/04/19 05/04/19 19:04 19:08 19:20 Temp 37.5 Pulse 93 Resp 20 B/P (MAP) Pulse Ox 98 96 O2 Delivery Room Air Room Air Room Air Progress Progress Note #1: Time: 19:20 Progress Note Nitroglycerin was given upon arrival. This did not significantly improve his pain. EKG was obtained and demonstrated STEMI, particularly in V2. Game Artist was activated and Dr. Rodriguez presented to the emergency room. 5000 units of heparin is being given per Dr. Rodriguez's request. Pain is being further treated with morphine. Zofran is being given for nausea. Progress Note #2: Progress Note Patient was transferred direct to the rags laborer from the ER in stable but guarded condition Initial ECG Impression Date: May 04, 2019 Initial ECG Impression Time: 19:03 Initial ECG Rate: 95 Initial ECG Rhythm: Normal Sinus Comment Sinus rhythm with ST elevation most prominent in V1 through V3 suggestive of STEMI. PVCs noted. No abnormal intervals or axis deviation. Diagnostic Imaging Diagonstic Imaging: Xray Plain Films/CT/US/NM/MRI: chest Comments NAME: ERIBERTO RAMEY MED REC#: [id number] [place] [facility] [place] 1950 PHYSICIAN: SHAYNA GOMEZ MD ADMIT DATE: 05/04/19/CATH Signed Date of Exam: 05/04/19 CHEST 1 VIEW, AP/PA ONLY EXAM: CHEST 1 VIEW, AP/PA ONLY INDICATION: Chest pain. COMPARISON: CTA chest 04/30/2019. FINDINGS: Normal heart size and central pulmonary vascularity. No focal pulmonary opacity, pleural effusion or pneumothorax. No acute osseous findings. IMPRESSION: No acute cardiopulmonary findings. Dictated by: Dictated on workstation # [id number] Dict: 05/04/191933 Trans: 05/04/192007 Interpreted by: VIKKI BUI MD Electronically signed by: VIKKI BUI MD 05/04/192007 Departure Impression Primary Impression: ST elevation ND (STEMI) Qualified Codes: I21.02 - ST elevation (STEMI) myocardial infarction involving left anterior descending coronary artery Disposition: ADMITTED INPATIENT Condition: Stable Departure-Patient Inst. Referrals: SUSAN QUIÑONEZ MD (PCP/Family) Primary Care Physician SHAYNA GOMEZ MD May 04, 2019 19:23
[2019-05-04 19:25] LABS: INR 0.9 (0.8-1.4); PROTHROMBIN TIME PATIENT 12.4 SEC (12.2-14.7)
--- NOTE | 2019-05-04 19:25 | Cardiology History & Physical ---
HPI-Cardiology Cardiology Consultation Date of Consultation 05/04/19 Date of Admission Time Seen by Provider: 19:23 Indication: acute ST elevation myocardial infarction HPI 68 years old gentleman with extensive coronary artery disease, had multiple inte rvention the past 10 days, educated in length on discharge on compliance with medication and the importance of the dual antiplatelet therapy and given samples of Brilinta, patient went home and did not take Brilinta, started to have chest pain this afternoon and took his Brilinta and came to the emergency room, currently having chest pain, still having ST elevation the anterior wall PMH-Cardiology Immunizations Up To Date Tetanus Booster (DTap): Unknown Date of Pneumonia Vaccine: Aug 03, 2011 Date of Influenza Vaccine: Sep 01, 2017 Seasonal Allergies Seasonal Allergies: No Surgeries Yes (several sx on both feet with toes amputed on right foot) Abdominal, Adenoidectomy, Gall Bladder, Appendectomy, Liver Transplant, Tonsillectomy Respiratory No Cardiovascular Yes Peripheral Vascular, Hypertension Neurological Yes (NEUROPATHY IN FEET) Neuropathy Reproductive System Hx Reproductive Disorders: No Sexually Transmitted Disease: No HIV/AIDS: No Genitourinary Yes Prostate Problems Gastrointestinal Yes (HEPATITIS C--S/P INTERFERON TREATMENT; LIVER TRANSPLANT 2002) Liver Disease/Jaundice, Hepatitis, Cirrhosis Musculoskeletal Yes (TOES AMPUTATED. CELLULITIS/OSTEOMYELITIS OF FEET/TOES) Amputee, Arthritis, Chronic Back Pain Endocrine Yes ([id number] NOT CHECK BLOOD SUGARS EVERDAY) Diabetes, Non-Insulin dep HEENT Yes (EDENTULOUS) Loss of Vision: Left Hearing Impairment: Denies Cancer No Psychosocial No (NEVER TAKEN MEDS) Depression Integumentary Yes (CYST LEFT NECK; CELLULITIS/OSTEOMYELITIS OF FEET) Blood Transfusions No Adverse Rxn to Transfusion: No (HAS HAD BLOOD WITH NO REACTION) Social History Patient Social History Marrital Status: Employed/Student: unemployed Dip or chew tobacco?: No Recent Foreign Travel: No Contact w/other who traveled: No Recent Infectious Disease Expo: No Family Hx Significant Family History: No Pertinent Family Hx Other History of heart disease Family History: Myocardial infarction 19 FATHER ROS-Cardiology Review of Systems General: No Chills, No Night Sweats, No Fatigue, No Malaise, No Appetite HEENT: No Head Aches, No Visual Changes, No Eye Pain, No Ear Pain, No Dysphasia, No Sinus Congestion, No Post Nasal Drip, No Sore Throat Pulmonary: Dyspnea; No Cough, No Pleuritic Chest Pain Cardiovascular: Chest Pain; No: Palpitations, Orthopnea, Paroxysmal Noc. Dyspnea, Edema, Lt Headedness Gastrointestinal: No: Nausea, Vomiting, Abdominal Pain, Diarrhea, Constipation, Melena, Hematochezia Genitourinary: No Dysuria, No Frequency, No Incontinence, No Hematuria, No Retention Musculoskeletal: No: neck pain, shoulder pain, arm pain, back pain, hand pain, leg pain, foot pain Neurological: No: Weakness, Numbness, Incoordination, Change in speech, Confusion, Seizures Home Medications & Allergies Allergies: Coded Allergies: No Known Drug Allergies (Unverified , 12/14/17) Home Medication List Reviewed: Yes Exam-Cardiology Vital Signs Vital Signs Date Time Temp Pulse Resp B/P (MAP) Pulse Ox O2 Delivery O2 Flow Rate FiO2 05/04/19 19:08 Room Air 05/04/19 19:04 37.5 93 20 98 Exam General Appearance: Alert, Oriented X3, Cooperative, No Acute Distress HEENT: Atraumatic, PERRLA Respiratory: Clear to Auscultation, Normal Air Movement Cardiovascular: Regular Rate, Normal S1, Normal S2, Other (S3 present, systolic murmur at the left sternal border) Abdominal: Normal Bowel Sounds, Soft, No Tenderness, No Hepatosplenomegaly, No Masses Extremities: No Clubbing, No Cyanosis, No Edema, Normal Pulses, No Tenderness/Swelling Skin: No Rashes, No Breakdown, No Significant Lesion Neuro: Normal Gait, Normal Speech, Strength at 5/5 X4 Ext, Normal Tone, Sensation Intact Psych/Mental Status: Mental Status NL, Mood NL Results Labs Labs Laboratory Tests 05/04/19 19:00: A/P-Cardiology Admission Diagnosis Acute ST elevation myocardial infarction anterior wall Coronary artery disease Hypertension Hyperlipidemia Admission Status: Inpatient Order (span 2 midnights) Reason for Inpatient Admission: Acute ST elevation myocardial infarction Assessment/Plan Acute ST elevation myocardial infarction involving the anterior wall, patient had a recent stent to the LAD, did not take his Brilinta Noncompliance with medication, educated in length on discharge on compliance and he was given samples for 30 day supply of the medication Coronary artery disease, cardiac catheterization done with 2 stents to the right coronary artery, Ita 2.75 x 18 mm and 2.523 mm not overlapping stents expanded to 3.05 proximally and 2.81 distally, had a tortuous LAD system with borderline lesion with dilated left ventricle, repeat cardiac catheterization was done on May 02, 2019, FFR through the LAD was significant, I proceeded with stenting the LAD using resolute integrity 2.5 x 18 mm expanded to 2.65 with excellent results, still have borderline lesion in the mid to distal LAD that will be treated conservatively at this time. Patient had moderate stenosis at the proximal diagonal branch that is a smaller artery, currently coming with acute ST elevation myocardial infarction planning to proceed with emergency card iac catheterization Congestive heart failure, acute left ventricular systolic dysfunction, ischemic cardiomyopathy, worsening left ventricular function over the past 2 weeks, stenting to the LAD was done, still having frequent PVCs echo showed improvement in the left ventricular function, probably deteriorating at this point due to noncompliance Frequent premature ventricular contractions, I will restart beta blockers Hypertension, I will restart Lipitor Hyperlipidemia, history of liver transplant, start Lipitor low dose and monitor Diabetes mellitus, followed and managed by primary care physician History of liver failure with liver transplant done in 2002. 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
--- NOTE | 2019-05-04 19:26 | Cardiac Procedure Note-CS/ASA ---
Pre-Procedure Note Pre-Op Procedure Note H&P Reviewed The H&P was reviewed, patient examined and no changes noted. Date H&P Reviewed: May 04, 2019 Time H&P Reviewed: 19:25 Conscious Sedation Pre-Proced Time 19:25 ASA Score 3 For ASA 3 and 4: Consider anesthesia and medical clearance. Also, for patients with a history of failed moderate sedation consider anesthesia. Airway Lungs Heart ASA score ASA 1: a normal healthy patient ASA 2: a patient with a mild systemic disease (mid diabetes, controlled hypertension, obesity x ASA 3: a patient with a severe systemic disease that limits activity (angina, COPD, prior Myocardial infarction) ASA 4: a patient with an incapacitating disease that is a constant threat to life (CHF, renal failure) ASA 5: a moribund patient not expected to survive 24 hrs. (ruptured aneurysm) ASA 6: a declared brain- patient whose organs are being harvested. For emergent operations, add the letter E after the classification Mallampati Classification Grade 3 Sedation Plan Analgesia, Amnesia, Plan communicated to team members, Discussed options with patient/fam, Discussed risks with patient/fam The patient is an appropriate candidate to undergo the planned procedure, sedation, and anesthesia. The patient immediately re-assessed prior to indication. SAHARA LONG MD May 04, 2019 19:26
[2019-05-04 19:32] LABS: ALANINE AMINOTRANSFERASE 50 U/L (0-55); ALBUMIN 3.9 GM/DL (3.2-4.5); ALKALINE PHOSPHATASE 181 U/L (40-136); BILIRUBIN,TOTAL 0.8 MG/DL (0.1-1.0); BUN/CREATININE RATIO 20; CALCIUM 9.9 MG/DL (8.5-10.1); CARBON DIOXIDE 28 MMOL/L (21-32); CHLORIDE 101 MMOL/L (98-107); GFR ESTIMATED > 60; GLUCOSE 289 MG/DL (70-105); POTASSIUM 4.3 MMOL/L (3.6-5.0); SODIUM 136 MMOL/L (135-145); TOTAL PROTEIN 7.8 GM/DL (6.4-8.2)
[2019-05-04] MEDS ORDERED: fentaNYL INJECTION 100 MCG/2 ML AMP ONE ×2 (19:38→23:23)
[2019-05-04] MEDS ORDERED: NS IV 1000 ML 1,000 ML ONE ×2 (19:38→23:29)
[2019-05-04] MEDS ORDERED: HEParin (CATH LAB) 2,000 ML IV ONE (19:38)
[2019-05-04] MEDS ORDERED: MIDAZOLAM 5 MG/5 ML (VERSED) VIAL ONE (19:38)
--- NOTE | 2019-05-04 19:38 | Diagnostic Imaging Report ---
EXAM: CHEST 1 VIEW, AP/PA ONLY INDICATION: Chest pain. COMPARISON: CTA chest 04/30/2019. FINDINGS: Normal heart size and central pulmonary vascularity. No focal pulmonary opacity, pleural effusion or pneumothorax. No acute osseous findings. IMPRESSION: No acute cardiopulmonary findings. Dictated by: Dictated on workstation # [id number]
[2019-05-04] MEDS ORDERED: NITRO DRIP 25000 MCG/D5W 250 ML IV ONE (19:39)
[2019-05-04] MEDS ORDERED: LIDOCAINE 1% INJ 20 ML 20 ML VIAL ONE (19:46)
[2019-05-04] MEDS ORDERED: EPTIFIBATIDE DRIP 100 ML IV ONE (19:55)
[2019-05-04] MEDS ORDERED: EPTIFIBATIDE BOLUS 20 ML IV ONE (19:55)
[2019-05-04] MEDS ORDERED: TICAGRELOR 90 MG TABLET (BRILINTA) PO ONE (20:20)
[2019-05-04] MEDS ORDERED: niCARdipine 25 MG/10 ML (CARDENE) AMP IV ONE (20:22)
[2019-05-04] MEDS ORDERED: NS (IVPB) 250 ML ONE (20:23)
[2019-05-04] MEDS ORDERED: PATIENT MAY USE OWN MEDS, ALL PO SCH (20:45)
--- NOTE | 2019-05-04 20:49 | Cardiac Cath Report ---
Cardiac Cath Report Physician (s)/B[employer] Solution Maker (s) Physician SAHARA LONG MD Pre-Procedure Diagnosis Pre-Procedure Diagnosis: coronary artery disease, ST elevation ME Post-Procedure Note Procedure Start Date: May 04, 2019 Name of Procedure: Left heart catheterization Left ventriculogram Emergency stenting to the LAD Findings/Procedure Note PROCEDURE NOTE: 68 years old gentleman with recent stenting to the LAD and right coronary artery, did not take Brilinta at home, started to have chest pain this afternoon came into the emergency room and noted to have ST elevation myocardial infarction, catheter lab was called for emergency cardiac catheterization. After explaining the procedure to the patient, all pros and cons were explained, all questions were answered. The patient signed the consent and then he was placed on the cardiac catheterization laboratory. Groin was prepped SL fashion local anesthesia was used. Sheath placed in the right femoral artery, patient received 5000 units of heparin in the emergency room, double Integrilin bolus was given and Integrilin drip, FL 4.0 guide was advanced to the left coronary system, patient has total occlusion of the LAD, BMW wire was advanced and reestablishment of flow was in 61 minutes from arrival to the emergency room. I proceeded with advancement of 2.5 x 18 mm balloon with multiple inflation then there was haziness below the stent that was placed 2 days ago I did proceed with placement of an overlapping distal Resolute Integrity 2.5 x 18 mm stent expanded to 2.65 proximally and 2.75 at the overlap. Angiogram showed lesion in the dist al LAD, I used Resolute [place] 2 x 22 expanded proximally to 2.5 and distally 2.2 mm, angiogram showed slow flow in the LAD with good results within the stents, improved after the use of 100 g off Cardene.then I advanced Prabhjot right to the right coronary artery and angiogram was done with one injection then advanced the pigtail catheter the left ventricular cavity pressure was measured and I evaluated left ventricular gram. Pullback LV to aorta was done. At the end of the procedure the sheath was sutured in place FINDINGS: Hemodynamics LV 104/14, end-diastolic pressure 14 Aorta 101/60 mean of 78 ANATOMY: Left Main has mild disease nonobstructive disease Left Anterior Descending is totally occluded, successful emergency balloon angioplasty with establishment of flow in 61 minutes from arrival to the emergency room door, deployment of 2 stents at the mid to distal and distal LAD using resolute integrity 2.5 x 18 mm expanded at the overlap area and at the distal segment of the LAD used resolute [place] 2 x 22 expanded to 2.5 proximally and 2.2 distally with good results after transient period of slow flow. Diagonal artery still have persistent lesion proximally Left Circumflex is moderate in size with mild disease Right Coronory Artery has a patent stent with good flow distally LV Gram is dilated with diffuse left ventricular hypokinesia with estimated ejection fraction 30 percent CONCLUSION: 1. Acute ST elevation myocardial infarction with total occlusion of a freshly deployed stent 2 days ago in the LAD, door to establishment of flow was 61 minutes 2. Total occlusion of the LAD successful balloon angioplasty with complex procedures then deployment of 2 stents overlapping stent Resolute Integrity 2.5 x 18 mm expanded distally to 2.7 mm and at the overlap area 2.75 mm, at the distal LAD deployment of Resolute [place] 2 x 22 expanded to 2.2 mm distally and 2.5 mm proximally. Excellent results. 3. First diagonal artery has moderate to severe lesion, smaller artery treated medically 4. Right coronary artery has a patent stent with good flow distally 5. Dilated left ventricle with diffuse left ventricular hypokinesia with estimated ejection fraction 30 percent DISCUSSION AND RECOMMENDATION: patient was educated on compliance with medication I will continue maximizing medical therapy and planning to evaluate him for LifeVest Anesthesia Type: Conscious Sedation Estimated blood loss (mL): 35 ml Contrast Amount: 145 ml Total Radiation Dose: 1629 mGy Post-Procedure Diagnosis Post-operative diagnosis: Acute ST elevation myocardial infarction Coronary artery disease Hypertension Hyperlipidemia Noncompliance with medication SAHARA LONG MD May 04, 2019 20:49
[2019-05-04 21:15] VITALS: BP 114/71
[2019-05-04 22:00] VITALS: BP 117/70
[2019-05-04 23:00] VITALS: BP 119/74
[2019-05-04] MEDS ORDERED: ATROPINE INJ 0.4 MG/ML SDV ONE (23:25)
[2019-05-05] VITALS (11 sets, daily range): BP systolic 100–116; BP diastolic 56–80
[2019-05-05] MEDS ORDERED: fentaNYL INJECTION 100 MCG/2 ML AMP IV ONE (00:45)
[2019-05-05] MEDS: fentaNYL INJECTION 100 MCG/2 ML AMP IV PRN ×4 (01:03→22:49)
[2019-05-05] MEDS ORDERED: meTOprolol TARTRATE 25 MG (LOPRESSOR) TABLET ONE (01:31)
[2019-05-05] MEDS: meTOprolol TARTRATE 25 MG (LOPRESSOR) TABLET PO SCH ×3 (01:35→21:33)
[2019-05-05] MEDS: TICAGRELOR 90 MG TABLET (BRILINTA) PO SCH ×3 (01:41→21:33)
--- NOTE | 2019-05-05 04:16 | NUR ---
2337-- SHEATH PULLED FROM RIGHT GROIN SITE, PRESSURE HELD X 20 MINS. PT TOLERATED WELL. NO FORMATION OF NEW HEMATOMA FOUND THOUGH PT DID HAVE A WALNUT SIZED HEMATOMA WITH EXTENSIVE BRUISING FROM PRIOR HEART CATH. APPROX 0005-- FEM STOP IN PLACE WITH PRESSURE AT 136. PT HAS DONE WELL POST PROCEDURE. DOES HAVE C/O PAIN AND TENDERNESS TO RIGHT GROIN/UPPER THIGH BUT PAIN IS BEING MANAGED WELL WITH ORDERED FENTANYL.
[2019-05-05 05:27] LABS: HEMOGLOBIN 11.9 G/DL (13.3-17.7); RED CELL DISTRIBUTION WIDTH 14.2 % (10.0-14.5); WHITE BLOOD COUNT 9.4 10^3/uL (4.3-11.0)
[2019-05-05 05:46] LABS: BUN/CREATININE RATIO 17; CALCIUM 9.1 MG/DL (8.5-10.1); CARBON DIOXIDE 27 MMOL/L (21-32); CHLORIDE 102 MMOL/L (98-107); CHOLESTEROL 135 MG/DL (< 200); CREATININE SERUM 0.87 MG/DL (0.60-1.30); GFR ESTIMATED > 60; GLUCOSE 329 MG/DL (70-105); HDL CHOLESTEROL 33 MG/DL (40-60); POTASSIUM 4.9 MMOL/L (3.6-5.0); SODIUM 137 MMOL/L (135-145); TRIGLYCERIDES 106 MG/DL (<150); VLDL CHOLESTEROL 21 MG/DL (5-40)
[2019-05-05] MEDS: inSUlin ASPART (NovoLOG) 1 UNIT/0.01 ML (CHARGE PER UNIT) SC SCH ×4 (06:53→21:33)
[2019-05-05] MEDS: NS IV 1000 ML 1,000 ML IV SCH ×2 (06:53→16:41)
--- NOTE | 2019-05-05 07:31 | Cardiology Progress Note ---
Subjective Date Seen by Provider: May 05, 2019 Time Seen by Provider: 07:28 Subjective/Events-last exam Patient is laying down in bed, feeling better, no chest pain, groin is healing well. Review of Systems General: No Chills, No Night Sweats, No Fatigue, No Malaise, No Appetite, No Other HEENT: No Head Aches, No Visual Changes, No Eye Pain, No Ear Pain, No Dysphasia , No Sinus Congestion, No Post Nasal Drip, No Sore Throat, No Other Pulmonary: No Dyspnea, No Cough, No Pleuritic Chest Pain, No Other Cardiovascular: No: Chest Pain, Palpitations, Orthopnea, Paroxysmal Noc. Dyspnea, Edema, Lt Headedness, Other Gastrointestinal: No: Nausea, Vomiting, Abdominal Pain, Diarrhea, Constipation, Melena, Hematochezia, Other Objective-Cardiology Exam Last Set of Vital Signs Vital Signs 05/04/19 05/05/19 05/05/19 21:15 05:23 06:52 Temp 36.5 Pulse 63 Resp 12 B/P (MAP) 104/66 (79) Pulse Ox 99 O2 Delivery Nasal Cannula O2 Flow Rate 2.00 Capillary Refill : Less Than 3 Seconds I&O Intake and Output 05/05/19 00:00 Output Total 700 ml Balance -700 ml Output Urine Total 700 ml Daily Weight Change No General: Alert, Oriented X3, Cooperative, No Acute Distress HEENT: Atraumatic, PERRLA Neck: Supple Lungs: Clear to Auscultation, Normal Air Movement Heart: Regular Rate, Normal S1, Normal S2, Other (S3 present, systolic murmur at the left sternal border) Abdomen: Normal Bowel Sounds, Soft, No Tenderness, No Hepatosplenomegaly, No Masses Extremities: No Clubbing, No Cyanosis, No Edema, Normal Pulses, No Tenderness/Swelling Skin: No Rashes, No Breakdown, No Significant Lesion Neuro: Normal Gait, Normal Speech, Strength at 5/5 X4 Ext, Normal Tone, Sensation Intact Psych/Mental Status: Mental Status NL, Mood NL Results Lab Laboratory Tests 05/04/19 19:00 05/05/19 05:20 A/P-Cardiology Admission Diagnosis Acute ST elevation myocardial infarction anterior wall Coronary artery disease Hypertension Hyperlipidemia Assessment/Plan Status post acute ST elevation myocardial infarctions anterior wall underwent emergency angioplasty with stenting to the LAD Noncompliance with medication, educated in length on discharge on compliance, I visited with him again this morning about compliance with medication, we will co nsult criminal justice social worker Coronary artery disease, cardiac catheterization done with 2 stents to the right coronary artery, Ita 2.75 x 18 mm and 2.523 mm not overlapping stents expanded to 3.05 proximally and 2.81 distally, had a tortuous LAD system with borderline lesion with dilated left ventricle, repeat cardiac catheterization was done on May 02, 2019, FFR through the LAD was significant, I proceeded with stenting the LAD using resolute integrity 2.5 x 18 mm expanded to 2.65 with excellent results, still have borderline lesion in the mid to distal LAD that will be treated conservatively at this time. Patient had moderate stenosis at the proximal diagonal branch that is a smaller artery, after his ST elevation myocardial infarction on May 04, 2019 I proceeded with cardiac cat heterization which showed occlusion of the LAD proceeded with balloon angioplasty then deploying 2 more stents to the LAD using resolute integrity 2.5 x 18 mm at the midportion overlapping with old stent and distally resolute [place] 2 x 22 with excellent results, had initially slow flow in the LAD then it improved with Cardene and Integrilin drip. EKG showed T-wave inversion in the anterolateral wall Congestive heart failure, acute left ventricular systolic dysfunction, ischemic cardiomyopathy, worsening left ventricular function over the past 2 weeks, stenting to the LAD was done, still having frequent PVCs echo showed improvement in the left ventricular function, left ventricular gram showed ejection fraction 30 percent, patient will need to have a LifeVest, he was started back on Lopres sor 12.5 mg twice a day and losartan, we will monitor tolerance and response Frequent premature ventricular contractions, started on beta blockers Hypertension, started back on low-dose beta blockers and low-dose losartan and we will monitor tolerance and response Hyperlipidemia, history of liver transplant, start Lipitor and monitor Diabetes mellitus, followed and managed by primary care physician History of liver failure with liver transplant done in 2002. 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
[2019-05-05] MEDS: LOSARTAN 25 MG (COZAAR) TAB PO SCH (08:30)
[2019-05-05] MEDS: OMEGA 3 (FISH OIL) 1000 MG CAP PO SCH ×2 (08:30→16:45)
[2019-05-05] MEDS: PANTOPRAZOLE 40 MG (PROTONIX) TAB PO SCH (08:30)
[2019-05-05] MEDS: ASPIRIN E.C. 81 MG (ECOTRIN) TAB PO SCH (08:31)
--- NOTE | 2019-05-05 10:52 | NUR ---
Initial visit: Pt shared that he has experienced three cardiac events recently and vented related fears and concerns. Pt describes solitary life with the exception of a small [place] of friends, including a woman who, he has requested to help his in the last month with the household and caring for his dog. He expressed concerns of asking her to do too much. When asked if he had any family in the area, he replied no. He describes himself as non-buddhism with personal keshav. I offered active listening, compassionate presence and provided non-judgmental place for pt to verbalize thoughts and feeling.
[2019-05-05] MEDS ORDERED: NITROGLYCERIN 0.4 MG SL TABS BTL 25'S SL PRN (11:45)
[2019-05-05] MEDS ORDERED: NITROGLYCERIN 0.4 MG SL TABS BTL 25'S SL ONE (11:45)
--- NOTE | 2019-05-05 13:19 | Consultation ---
HPI History of Present Illness: 68 yo male who was just discharged on 05/03 after stenting in the LAD, went home and had recurrence of chest pain, found to have STEMI and underwent emergent cath last night with repeat LAD stenting. He states he had all of his medications at home, but did miss a dose. He has a history of methamphetamine use, and states his last use was about 3 weeks ago. He says he has quit in the past on his own and will do so again. He drinks about a 6 pack of beer per week, but used to drink very heavily. He is also a smoker. Date seen by provider: May 05, 2019 Time Seen by Provider: 10:20 Attending Physician Albina Rodriguez MD PCP Andreas Vergara MD Consult Date of Admission May 04, 2019 at 21:12 Home Medications Home Medications Reviewed patient Home Medication Reconciliation performed by pharmacy medication reconciliations division order technician and/or nursing. Patients Allergies have been reviewed. Allergies Coded Allergies: No Known Drug Allergies (Unverified , 12/14/17) [id number]-[id number] Hx Patient Social History Marrital Status: Employed/Student: unemployed Drug of Choice: HX +IV METH AND COCAINE, THC USE. 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 Second digit amputation left Appendectomy Coronary artery stenting Family Medical History Significant Family History: No Pertinent Family Hx Family History: Myocardial infarction 19 FATHER Review of Systems (CHC) Constitutional: No fever Respiratory: No cough Cardiovascular: chest pain Reviewed Test Results Reviewed Test Results Lab Laboratory Tests Test 05/04/19 19:00 05/04/19 22:58 05/05/19 05:20 05/05/19 11:09 Range/Units White Blood Count 8.0 9.4 4.3-11.0 10^3/uL Red Blood Count 4.32 L 3.95 L 4.35-5.85 10^6/uL Hemoglobin 12.9 L 11.9 L 13.3-17.7 G/DL Hematocrit 38 L 35 L 40-54 % Mean Corpuscular Volume 88 89 80-99 FL Mean Corpuscular Hemoglobin 30 30 25-34 PG Mean Corpuscular Hemoglobin Concent 34 34 32-36 G/DL Red Cell Distribution Width 14.1 14.2 10.0-14.5 % Platelet Count 430 H 373 130-400 10^3/uL Mean Platelet Volume 11.4 H 11.0 H 7.4-10.4 FL Neutrophils (%) (Auto) 55 42-75 % Lymphocytes (%) (Auto) 28 12-44 % Monocytes (%) (Auto) 13 H 0-12 % Eosinophils (%) (Auto) 4 0-10 % Basophils (%) (Auto) 0 0-10 % Neutrophils # (Auto) 4.4 1.8-7.8 X 10^3 Lymphocytes # (Auto) 2.2 1.0-4.0 X 10^3 Monocytes # (Auto) 1.0 0.0-1.0 X 10^3 Eosinophils # (Auto) 0.3 0.0-0.3 10^3/uL Basophils # (Auto) 0.0 0.0-0.1 10^3/uL Prothrombin Time 12.4 12.2-14.7 SEC INR Comment 0.9 0.8-1.4 Activated Partial Thromboplast Time 29 28 24-35 SEC Sodium Level 136 137 135-145 MMOL/L Potassium Level 4.3 4.9 3.6-5.0 MMOL/L Chloride Level 101 102 98-107 MMOL/L Carbon Dioxide Level 28 27 21-32 MMOL/L Anion Gap 7 8 5-14 MMOL/L Blood Urea Nitrogen 18 15 7-18 MG/DL Creatinine 0.90 0.87 0.60-1.30 MG/DL Estimat Glomerular Filtration Rate > 60 > 60 BUN/Creatinine Ratio 20 17 Glucose Level 289 H 329 H 70-105 MG/DL Calcium Level 9.9 9.1 8.5-10.1 MG/DL Corrected Calcium 10.0 8.5-10.1 MG/DL Magnesium Level 2.0 1.6-2.4 MG/DL Total Bilirubin 0.8 0.1-1.0 MG/DL Aspartate Amino Transf (AST/SGOT) 29 5-34 U/L Alanine Aminotransferase (ALT/SGPT) 50 0-55 U/L Alkaline Phosphatase 181 H 40-136 U/L Myoglobin 17.9 10.0-92.0 NG/ML Troponin I < 0.028 105.741 *H <0.028 NG/ML B-Type Natriuretic Peptide 115.1 H <100.0 PG/ML Total Protein 7.8 6.4-8.2 GM/DL Albumin 3.9 3.2-4.5 GM/DL Smear Scan YES Triglycerides Level 106 <150 MG/DL Cholesterol Level 135 < 200 MG/DL LDL Cholesterol Direct 91 1-129 MG/DL VLDL Cholesterol 21 5-40 MG/DL HDL Cholesterol 33 L 40-60 MG/DL Glucometer 257 H 70-110 MG/DL Physical Exam-(CHC) Physical Exam Vital Signs VS - Last 72 Hours, by Label 05/04/19 05/04/19 05/04/19 05/04/19 19:04 19:08 19:20 19:49 Temp 37.5 37.5 Pulse 93 93 Resp 20 20 B/P (MAP) 114/89 Pulse Ox 98 96 98 O2 Delivery Room Air Room Air Room Air Nasal Cannula O2 Flow Rate 2.00 05/04/19 05/04/19 05/04/19 05/04/19 21:15 21:30 21:33 22:00 Temp 36.5 Pulse 85 79 75 Resp 21 17 B/P (MAP) 114/71 (85) 117/70 (86) Pulse Ox 97 97 98 O2 Delivery Nasal Cannula Nasal Cannula Nasal Cannula O2 Flow Rate 2.00 2.00 2.00 05/04/19 05/04/19 05/05/19 05/05/19 23:00 23:55 00:00 00:00 Pulse 77 73 Resp 15 27 B/P (MAP) 119/74 (89) 116/80 (92) Pulse Ox 97 97 98 O2 Delivery Nasal Cannula Nasal Cannula Nasal Cannula Nasal Cannula O2 Flow Rate 2.00 2.00 2.00 2.00 05/05/19 05/05/19 05/05/19 05/05/19 01:48 01:49 02:00 03:17 Pulse 74 72 71 69 Resp 10 24 9 B/P (MAP) 103/63 (76) 110/64 (79) 100/66 (77) Pulse Ox 97 99 98 O2 Delivery Nasal Cannula Nasal Cannula Nasal Cannula O2 Flow Rate 2.00 2.00 2.00 05/05/19 05/05/19 05/05/19 05/05/19 04:00 04:00 05:23 06:52 Pulse 70 66 63 Resp 11 12 B/P (MAP) 107/67 (80) 106/67 (80) 104/66 (79) Pulse Ox 98 98 98 99 O2 Delivery Nasal Cannula Nasal Cannula Nasal Cannula Nasal Cannula O2 Flow Rate 2.00 2.00 2.00 2.00 05/05/19 05/05/19 05/05/19 05/05/19 07:00 07:00 08:00 08:00 Temp 35.7 Pulse 64 64 Resp 12 B/P (MAP) 105/66 (79) Pulse Ox 98 98 O2 Delivery Nasal Cannula Nasal Cannula O2 Flow Rate 2.00 2.00 05/05/19 05/05/19 05/05/19 05/05/19 08:00 11:55 12:00 12:04 Temp 35.4 Pulse 64 69 Resp 17 B/P (MAP) 104/56 (72) Pulse Ox 98 98 99 O2 Delivery Room Air Room Air Room Air Capillary Refill : Less Than 3 Seconds General Appearance: no apparent distress Respiratory: lungs clear, normal breath sounds Cardiovascular: regular rate, rhythm, no murmur Gastrointestinal: normal bowel sounds, non tender, soft Extremities: no pedal edema Neurologic/Psychiatric: alert, other (flat affect) Skin: normal color, warm/dry Assessment/Plan Assessment/Plan (1) Diabetes mellitus type 2 with complications Status: Chronic Assessment & Plan: Hold home metformin due to contrast. Sliding scale insulin, diabetic diet. (2) Congestive heart failure Status: Acute Assessment & Plan: Management per Dr. Rodriguez, acute worsening since earlier this week. Plan for Lifevest. Qualifiers: Qualified Codes: I50.23 - Acute on chronic systolic (congestive) heart failure (3) ST elevation [place] (STEMI) Status: Acute Assessment & Plan: s/p stenting, management per Dr. Rodriguez Qualifiers: Qualified Codes: I21.02 - ST elevation (STEMI) myocardial infarction involving left anterior descending coronary artery (4) Methamphetamine use Status: Chronic Assessment & Plan: Offered addiction treatment services at [facility], he will consider. Discussed importance of complete cessation for his heart. (5) Financial difficulty Status: Chronic Assessment & Plan: Has had trouble with getting meds in past, received samples of Brilinta on last d/c, but still did not take. animal services officer consult. Clinical Quality Measures AMI/AHF: ASA po Prior to arrival: Yes DVT/VTE Risk/Contraindication: Risk Factor Score Per Nursin RFS Level Per Nursing on Admit: 4+=Very High RENETTA AGUSTIN MD May 05, 2019 13:19
[2019-05-05] MEDS: POLYETHYLENE GLYCOL 17 GM (MIRALAX) PACK PO PRN (22:50)
[2019-05-06] VITALS (7 sets, daily range): BP systolic 98–113; BP diastolic 50–67
[2019-05-06] MEDS: fentaNYL INJECTION 100 MCG/2 ML AMP IV PRN ×3 (02:13→22:03)
[2019-05-06] MEDS: NS IV 1000 ML 1,000 ML IV SCH (02:39)
[2019-05-06] MEDS: OMEGA 3 (FISH OIL) 1000 MG CAP PO SCH ×2 (06:03→17:04)
[2019-05-06] MEDS: inSUlin ASPART (NovoLOG) 1 UNIT/0.01 ML (CHARGE PER UNIT) SC SCH ×4 (06:03→21:50)
[2019-05-06 07:04] LABS: BASOPHILS % (AUTO) 0 % (0-10); EOSINOPHILS # (AUTO) 0.3 10^3/uL (0.0-0.3); EOSINOPHILS % (AUTO) 4 % (0-10); HEMATOCRIT 36 % (40-54); HEMOGLOBIN 12.1 G/DL (13.3-17.7); LYMPHOCYTES # (AUTO) 1.7 X 10^3 (1.0-4.0); LYMPHOCYTES % (AUTO) 23 % (12-44); MEAN CORPUSCULAR HEMOGLOBIN 30 PG (25-34); MEAN CORPUSCULAR HGB CONC 34 G/DL (32-36); MEAN CORPUSCULAR VOLUME 89 FL (80-99); MEAN PLATELET VOLUME 10.9 FL (7.4-10.4); MONOCYTES % (AUTO) 13 % (0-12); NEUTROPHILS # (AUTO) 4.5 X 10^3 (1.8-7.8); NEUTROPHILS % (AUTO) 60 % (42-75); PLATELET COUNT 369 10^3/uL (130-400); RED CELL DISTRIBUTION WIDTH 14.3 % (10.0-14.5); WHITE BLOOD COUNT 7.6 10^3/uL (4.3-11.0)
[2019-05-06 07:18] LABS: BUN/CREATININE RATIO 24; CALCIUM 8.7 MG/DL (8.5-10.1); CARBON DIOXIDE 24 MMOL/L (21-32); CHLORIDE 103 MMOL/L (98-107); CREATININE SERUM 0.71 MG/DL (0.60-1.30); GFR ESTIMATED > 60; GLUCOSE 245 MG/DL (70-105); POTASSIUM 3.8 MMOL/L (3.6-5.0); SODIUM 137 MMOL/L (135-145)
--- NOTE | 2019-05-06 08:08 | Cardiology Progress Note ---
Subjective Date Seen by Provider: May 06, 2019 Time Seen by Provider: 08:06 Subjective/Events-last exam Patient is complaining of fatigue and loss of energy. No chest pain Had an episode of chest pain yesterday responded to nitroglycerin Review of Systems General: No Chills, No Night Sweats; Fatigue, Malaise; No Appetite, No Other HEENT: No Head Aches, No Visual Changes, No Eye Pain, No Ear Pain, No Dysphasia, No Sinus Congestion, No Post Nasal Drip, No Sore Throat, No Other Pulmonary: Dyspnea; No Cough, No Pleuritic Chest Pain, No Other Cardiovascular: No: Chest Pain, Palpitations, Orthopnea, Paroxysmal Noc. Dyspnea, Edema, Lt Headedness, Other Objective-Cardiology Exam Last Set of Vital Signs Vital Signs 05/06/19 05/06/19 05/06/19 03:41 03:42 04:00 Temp 36.4 Pulse 70 Resp 20 B/P (MAP) 99/58 (72) Pulse Ox 96 O2 Delivery Room Air Capillary Refill : Less Than 3 Seconds I&O Intake and Output 05/06/19 00:00 Intake Total 1670 ml Output Total 1750 ml Balance -80 ml Intake Oral 1670 ml Output Urine Total 1750 ml General: Alert, Oriented X3, Cooperative, No Acute Distress HEENT: Atraumatic, PERRLA Neck: Supple Lungs: Clear to Auscultation, Normal Air Movement Heart: Regular Rate, Normal S1, Normal S2, Other (S3 present, systolic murmur at the left sternal border) Abdomen: Normal Bowel Sounds, Soft, No Tenderness, No Hepatosplenomegaly, No Masses Extremities: No Clubbing, No Cyanosis, No Edema, Normal Pulses, No Tenderness/Swelling Skin: No Rashes, No Breakdown, No Significant Lesion Neuro: Normal Gait, Normal Speech, Strength at 5/5 X4 Ext, Normal Tone, Sensation Intact Psych/Mental Status: Mental Status NL, Mood NL Results Lab Laboratory Tests 05/06/19 06:55 A/P-Cardiology Admission Diagnosis Acute ST elevation myocardial infarction anterior wall Coronary artery disease Hypertension Hyperlipidemia Assessment/Plan Status post acute ST elevation myocardial infarctions anterior wall underwent emergency angioplasty with stenting to the LAD Noncompliance with medication, educated in length on discharge on compliance, I visited with him again this morning about compliance with medication, social director were consulted Generalized weakness, loss of energy, will evaluate with physical therapy Coronary artery disease, cardiac catheterization done with 2 stents to the right coronary artery, Ita 2.75 x 18 mm and 2.523 mm not overlapping stents expanded to 3.05 proximally and 2.81 distally, had a tortuous LAD system with borderline lesion with dilated left ventricle, repeat cardiac catheterization was done on May 02, 2019, FFR through the LAD was significant, I proceeded with stenting the LAD using resolute integrity 2.5 x 18 mm expanded to 2.65 with excellent results, still have borderline lesion in the mid to distal LAD that will be treated conservatively at this time. Patient had moderate stenosis at the proximal diagonal branch that is a smaller artery, after his ST elevation myocardial infarction on May 04, 2019 I proceeded with cardiac catheterization which showed occlusion of the LAD proceeded with balloon angioplasty then deploying 2 more stents to the LAD using resolute integrity 2.5 x 18 mm at the midportion overlapping with old stent and distally resolute Enderlin 2 x 22 with excellent results, had initially slow flow in the LAD then it improved with Cardene and Integrilin drip. EKG showed T-wave inversion in the anterolateral wall Congestive heart failure, acute left ventricular systolic dysfunction, ischemic cardiomyopathy, worsening left ventricular function over the past 2 weeks, stenting to the LAD was done, still having frequent PVCs echo showed improvement in the left ventricular function, left ventricular gram showed ejection fraction 30 percent, patient will need to have a LifeVest, he was started back on Lopressor 12.5 mg twice a day and losartan, we will monitor tolerance and response Frequent premature ventricular contractions, started on beta blockers Hypertension, started back on low-dose beta blockers and low-dose losartan and we will monitor tolerance and response Hyperlipidemia, history of liver transplant, start Lipitor and monitor Diabetes mellitus, followed and managed by primary care physician Hold metformin until tomorrow morning History of liver failure with liver transplant done in 2002. 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
[2019-05-06] MEDS: ASPIRIN E.C. 81 MG (ECOTRIN) TAB PO SCH (08:31)
[2019-05-06] MEDS: meTOprolol TARTRATE 25 MG (LOPRESSOR) TABLET PO SCH ×2 (08:32→20:49)
[2019-05-06] MEDS: LOSARTAN 25 MG (COZAAR) TAB PO SCH (08:32)
[2019-05-06] MEDS: TICAGRELOR 90 MG TABLET (BRILINTA) PO SCH ×2 (08:32→20:49)
[2019-05-06] MEDS: PANTOPRAZOLE 40 MG (PROTONIX) TAB PO SCH (08:32)
--- NOTE | 2019-05-06 11:27 | Physical Therapy Evaluation ---
PT Evaluation-General Medical Diagnosis Admission Date May 04, 2019 at 21:12 Medical Diagnosis: STEMI Onset Date: May 04, 2019 Therapy Diagnosis Therapy Diagnosis: debility Height/Weight Height (Feet): 6 Height (Inches): 0.00 Weight (Pounds): 240 Weight (Ounces): 0.0 Precautions Precautions/Isolations: Fall Prevention, Standard Precautions Weight Bear Status Right Lower Extremity: Right Weight Bearing/Tolerated Left Lower Extremity: Left Weight Bearing/Tolerated Referral Physician: Jennifer Reason for Referral: Evaluation/Treatment Medical History Pertinent Medical History: Alcoholism, CAD, DM, HTN, Neuropathy, Smoking Additional Medical History Hep C/polysubstance use Current History EMS secondary to CP Reviewed History: Yes Social History Home: Single Level Current Living Status: Alone Entry Into Home: Level Entry Prior Prior Level of Function Therapy Quality Codes: 6 Independent with activity with or without an assistive device 5 Patient requires set up or clean up by helper. Patient completes activity by themselves 4 Supervision or touching assist (CGA). Erving provide cues , steadying assist 3 The helper provides less than half the effort to complete the activity 2 The helper provides more than half the effort to complete the activity 1 Dependent. The helper does all the effort to complete an activity 7 Patient refused to complete or attempt activity 9 The patient did not perform the activity before the current illness or injury 88 Not attempted due to Medical conditions or safety concerns Bed Mobility: 6 Transfers (B,C,W/C): 6 Gait: 6 Indoor Mobility (Ambulation): Independent Stairs: Independent Prior Devices Use: Other-see list below (cane) PT Evaluation-Current Subjective Patient agrees to PT. Pain Numeric Pain Scale: 0-No Pain Location: No Pain Reported Objective Patient Orientation: Normal For Age Problem Solving: Good ROM/Strength ROM Lower Extremities bilateral LE WFL (noted multiple foot/toes amputations) Strength Lower Extremities bilateral LE 5/5 grossly Integumentary/Posture Integumentary refer to nursing notes Bowel Incontinence: No Bladder Incontinence: No Posture WFL Neuromuscular (Tone, Coordination, Reflexes) grossly intact Sensory Vision: Functional Hearing: Functional Sensation Right Lower Extremit: Impaired Sensation Left Lower Extremity: Impaired Transfers Roll Left to Right (QC): 6 Sit to Lying (QC): 6 Lying to Sitting/Side of Bed(Q: 6 Sit to Stand (QC): 6 Chair/Qho-kj-Bqinu Xfer(QC): 6 Gait Does the Patient Walk?: Yes Mode of Locomotion: Walk Anticipated Mode of Locomotion: Walk Distance (FIM): 3=150 ft Walk 10 feet (QC): 6 Walk 50 ft with 2 Turns(QC): 6 Walk 150 ft (QC): 6 Distance: 500' Gait Assistive Device: FWW Comments/Gait Description safe and functional gait sequence (patient and RN have been instructed for patient to be up ad amadna in room and hallway) Balance Sitting Static: Normal Sitting Dynamic: Normal Standing Static: Normal Standing Dynamic: Normal Assessment/Needs 68 y.o. male, is currently at [facility] with all gross motor skills safely and does not require skilled therapy intervention. Thank you for this referral. Rehab Potential: Fair PT Plan Treatment/Plan Treatment Plan: Discontinue PT, goals met Treatment Plan: Other Treatment Duration: May 06, 2019 Frequency: 1 time per week Estimated Hrs Per Day: .25 hour per day Patient and/or Family Agrees t: Yes Time/GCodes Time In: 1015 Time Out: 1028 Total Billed Treatment Time: 13 Total Billed Treatment [address] [facility] 13 min EPIFANIO YA PT May 06, 2019 11:27
[2019-05-06] MEDS: POLYETHYLENE GLYCOL 17 GM (MIRALAX) PACK PO PRN (11:52)
[2019-05-06] MEDS ORDERED: LOSA25TA41 PO (11:54)
--- NOTE | 2019-05-06 11:54 | NUR ---
SPOKE WITH PT (HE HAD HIS BOTTLES) WELL GOING THRU THE EXTERNAL MED LIST TO COMPLETE THE MED REC. PT INDICATED HE HAD PICKED UP THE LOSARTAN BUT HAD NOT STARTED TAKING IT. LIKEWISE THE PT PICKED UP METFORMIN BUT HE HAD NO STARTED IT EITHER PER DIRECTIONS FROM DR. LONG. D WITH THE EXCEPTION OF THOSE 2 MEDS LISTED ABOVE PT CLAIMS HE TAKES ALL THE OTHER MEDS HOW IT SAYS ON THE BOTTLES. BRILINTA HAD GOOD DATING AND WAS PICKED UP FROM [facility]- HE SAYS HE ALWAYS TAKES THIS TWICE DAILY.
--- NOTE | 2019-05-06 16:17 | Progress Note ---
Subjective Subjective/Events-last exam Afebrile, denies chest pain. Objective Exam Last Set of Vital Signs Vital Signs Date Time Temp Pulse Resp B/P (MAP) Pulse Ox O2 Delivery O2 Flow Rate FiO2 05/06/19 13:00 85 05/06/19 12:00 36.8 20 98/67 (77) 93 Room Air 05/05/19 08:00 2.00 Capillary Refill : Less Than 3 Seconds I&O Intake and Output 05/06/19 00:00 Intake Total 1670 ml Output Total 1750 ml Balance -80 ml Intake Oral 1670 ml Output Urine Total 1750 ml General: Alert, No Acute Distress Lungs: Clear to Auscultation, Normal Air Movement Heart: Regular Rate, No Murmurs Neuro: Normal Speech Psych/Mental Status: Mental Status NL Results/Procedures Lab Laboratory Tests 05/05/19 21:15: Glucometer 325H 05/06/19 05:56: Glucometer 268H 05/06/19 06:55: White Blood Count 7.6, Red Blood Count 4.04L, Hemoglobin 12.1L, Hematocrit 36L, Mean Corpuscular Volume 89, Mean Corpuscular Hemoglobin 30, Mean Corpuscular Hemoglobin Concent 34, Red Cell Distribution Width 14.3, Platelet Count 369, Mean Platelet Volume 10.9H, Neutrophils (%) (Auto) 60, Lymphocytes (%) (Auto) 23, Monocytes (%) (Auto) 13H, Eosinophils (%) (Auto) 4, Basophils (%) (Auto) 0, Neutrophils # (Auto) 4.5, Lymphocytes # (Auto) 1.7, Monocytes # (Auto) 1.0, Eosinophils # (Auto) 0.3, Basophils # (Auto) 0.0, Sodium Level 137, Potassium Level 3.8, Chloride Level 103, Carbon Dioxide Level 24, Anion Gap 10, Blood Urea Nitrogen 17, Creatinine 0.71, Estimat Glomerular Filtration Rate > 60, BUN/Creatinine Ratio 24, Glucose Level 245H, Calcium Level 8.7 05/06/19 10:54: Glucometer 263H Assessment/Plan Assessment/Plan (1) Diabetes mellitus type 2 with complications Status: Chronic Assessment & Plan: Hold home metformin due to contrast. Sliding scale insulin, diabetic diet. (2) Congestive heart failure Status: Acute Assessment & Plan: Management per Dr. Rodriguez, acute worsening since earlier this week. Plan for Lifevest. Qualifiers: Qualified Codes: I50.23 - Acute on chronic systolic (congestive) heart failure (3) ST elevation [place] (STEMI) Status: Acute Assessment & Plan: s/p stenting, management per Dr. Rodriguez Qualifiers: Qualified Codes: I21.02 - ST elevation (STEMI) myocardial infarction involving left anterior descending coronary artery (4) Methamphetamine use Status: Chronic Assessment & Plan: Offered addiction treatment services at [facility], he will consider. Discussed importance of complete cessation for his heart. (5) Financial difficulty Status: Chronic Assessment & Plan: Has had trouble with getting meds in past, received samples of Brilinta on last d/c, but still did not take. marketing services vice president consult. If patient is to discharge over the weekend and any concerns about getting medications, etc, please call [facility]-call [facility] for assistance. Clinical Quality Measures AMI/AHF: ASA po Prior to arrival: Yes DVT/VTE Risk/Contraindication: Risk Factor Score Per Nursin RFS Level Per Nursing on Admit: 4+=Very High RENETTA AGUSTIN MD May 06, 2019 16:17
--- NOTE | 2019-05-06 17:16 | NUR ---
CM/SS, respond to consult. Venture Capitalist familiar with patient from multiple hospital stays. PLAN: Undetermined at this time, will depend on whether patient ambulates safely and can care for self. He has established services 6 hours weekly through [facility], they have offered to seek increased hours for meal preparation and oversight. He is established with [facility] and that will continue. SUMMARY: Patient was assisted today to initiate a [place] Medicaid application, his friend Marbella will get all the supportive documentation together so that it can be submitted to [facility] for processing. No movement on this until first of week. Venture Capitalist provided patient with housing information and santos contacts: [facility], [place], [facility], [facility], [facility], [facility]. Patient understands that others can be found thru [employer]. He knows he can no longer take care of a yard or any household maintenance so is looking to move. He resides in a rental, does not own, but does have a large dog which may or may not be a hindrance for specific property options. Friend Marbella London has been working behind the scenes to assist patient. He also has Karina at [facility] ([facility]) providing resource information. Marbella London, Paid Caregiver/friend [address] [place] [address]
[2019-05-07 00:25] VITALS: BP 99/62
[2019-05-07 04:30] VITALS: BP 109/60
[2019-05-07 05:04] LABS: BASOPHILS % (AUTO) 0 % (0-10); EOSINOPHILS # (AUTO) 0.3 10^3/uL (0.0-0.3); EOSINOPHILS % (AUTO) 4 % (0-10); HEMATOCRIT 36 % (40-54); HEMOGLOBIN 11.9 G/DL (13.3-17.7); LYMPHOCYTES # (AUTO) 1.5 X 10^3 (1.0-4.0); LYMPHOCYTES % (AUTO) 23 % (12-44); MEAN CORPUSCULAR HEMOGLOBIN 30 PG (25-34); MEAN CORPUSCULAR HGB CONC 34 G/DL (32-36); MEAN CORPUSCULAR VOLUME 89 FL (80-99); MEAN PLATELET VOLUME 11.5 FL (7.4-10.4); MONOCYTES # (AUTO) 0.8 X 10^3 (0.0-1.0); MONOCYTES % (AUTO) 13 % (0-12); NEUTROPHILS # (AUTO) 3.8 X 10^3 (1.8-7.8); NEUTROPHILS % (AUTO) 60 % (42-75); PLATELET COUNT 372 10^3/uL (130-400); RED CELL DISTRIBUTION WIDTH 14.3 % (10.0-14.5); WHITE BLOOD COUNT 6.4 10^3/uL (4.3-11.0)
[2019-05-07 05:14] LABS: BUN/CREATININE RATIO 24; CALCIUM 8.7 MG/DL (8.5-10.1); CARBON DIOXIDE 25 MMOL/L (21-32); CHLORIDE 104 MMOL/L (98-107); CREATININE SERUM 0.78 MG/DL (0.60-1.30); GFR ESTIMATED > 60; GLUCOSE 280 MG/DL (70-105); SODIUM 137 MMOL/L (135-145)
[2019-05-07] MEDS: inSUlin ASPART (NovoLOG) 1 UNIT/0.01 ML (CHARGE PER UNIT) SC SCH ×4 (06:03→21:23)
[2019-05-07] MEDS: OMEGA 3 (FISH OIL) 1000 MG CAP PO SCH ×2 (06:03→16:05)
[2019-05-07] MEDS: fentaNYL INJECTION 100 MCG/2 ML AMP IV PRN ×2 (07:03→11:24)
[2019-05-07 07:24] VITALS: BP 106/58
[2019-05-07] MEDS: ASPIRIN E.C. 81 MG (ECOTRIN) TAB PO SCH (08:36)
[2019-05-07] MEDS: LOSARTAN 25 MG (COZAAR) TAB PO SCH (08:36)
[2019-05-07] MEDS: PANTOPRAZOLE 40 MG (PROTONIX) TAB PO SCH (08:36)
[2019-05-07] MEDS: TICAGRELOR 90 MG TABLET (BRILINTA) PO SCH ×2 (08:36→21:24)
[2019-05-07] MEDS: meTOprolol TARTRATE 25 MG (LOPRESSOR) TABLET PO SCH ×2 (08:37→21:26)
[2019-05-07] MEDS: POLYETHYLENE GLYCOL 17 GM (MIRALAX) PACK PO PRN (08:37)
--- NOTE | 2019-05-07 11:28 | Cardiology Progress Note ---
Subjective Date Seen by Provider: May 07, 2019 Time Seen by Provider: 11:27 Subjective/Events-last exam patient is laying down in bed, complaining of fatigue and loss of energy, no chest pain Review of Systems General: No Chills, No Night Sweats; Fatigue, Malaise; No Appetite, No Other HEENT: No Head Aches, No Visual Changes, No Eye Pain, No Ear Pain, No Dysphasia, No Sinus Congestion, No Post Nasal Drip, No Sore Throat, No Other Pulmonary: No Dyspnea, No Cough, No Pleuritic Chest Pain, No Other Cardiovascular: No: Chest Pain, Palpitations, Orthopnea, Paroxysmal Noc. Dyspnea, Edema, Lt Headedness, Other Objective-Cardiology Exam Last Set of Vital Signs Vital Signs 05/07/19 05/07/19 07:24 08:45 Temp 36.8 Pulse 62 Resp 18 B/P (MAP) 106/58 (74) Pulse Ox 95 O2 Delivery Room Air Capillary Refill : Less Than 3 Seconds I&O Intake and Output 05/07/19 00:00 Intake Total 1070 ml Output Total 1200 ml Balance -130 ml Intake Oral 1070 ml Output Urine Total 1200 ml # Voids 4 # Bowel Movements 2 General: Alert, Oriented X3, Cooperative, No Acute Distress HEENT: Atraumatic, PERRLA Neck: Supple, No JVD Lungs: Clear to Auscultation, Normal Air Movement Heart: Regular Rate, Normal S1, Normal S2, No Murmurs Abdomen: Normal Bowel Sounds, Soft, No Tenderness, No Hepatosplenomegaly, No Masses Extremities: No Clubbing, No Cyanosis, No Edema, Normal Pulses, No Tenderness/Swelling Skin: No Rashes, No Breakdown, No Significant Lesion Neuro: Normal Speech Psych/Mental Status: Mental Status NL Results Lab Laboratory Tests 05/07/19 04:10 05/07/19 04:15 A/P-Cardiology Admission Diagnosis Acute ST elevation myocardial infarction anterior wall Coronary artery disease Hypertension Hyperlipidemia Assessment/Plan Status post acute ST elevation myocardial infarctions anterior wall underwent emergency angioplasty with stenting to the LAD as described below Noncompliance with medication, educated in length on discharge on compliance Generalized weakness, loss of energy, will evaluate with physical therapy Coronary artery disease, cardiac catheterization done with 2 stents to the right coronary artery, Ita 2.75 x 18 mm and 2.523 mm not overlapping stents expanded to 3.05 proximally and 2.81 distally, had a tortuous LAD system with borderline lesion with dilated left ventricle, repeat cardiac catheterization was done on May 02, 2019, FFR through the LAD was significant, I proceeded with stenting the LAD using resolute integrity 2.5 x 18 mm expanded to 2.65 with excellent results, still have borderline lesion in the mid to distal LAD that will be treated conservatively at this time. Patient had moderate stenosis at the proximal diagonal branch that is a smaller artery, after his ST elevation myocardial infarction on May 04, 2019 I proceeded with cardiac catheterization which showed occlusion of the LAD proceeded with balloon angioplasty then deploying 2 more stents to the LAD using resolute integrity 2.5 x 18 mm at the midportion overlapping with old stent and distally resolute Nael 2 x 22 with excellent results, had initially slow flow in the LAD then it improved with Cardene and Integrilin drip. EKG showed T-wave inversion in the anterolateral wall Congestive heart failure, acute left ventricular systolic dysfunction, ischemic cardiomyopathy, worsening left ventricular function over the past 2 weeks, stenting to the LAD was done, still having frequent PVCs echo showed improvement in the left ventricular function, left ventricular gram showed ejection fraction 30 percent, have a LifeVest, treated with Lopressor and losartan and tolerating medication well, borderline hypotension Frequent premature ventricular contractions, better at this time Hypertension, started back on low-dose beta blockers and low-dose losartan, borderline hypotensive at this time, continue to monitor Hyperlipidemia, history of liver transplant, start Lipitor and monitor Generalized fatigue and loss of energy continue with physical therapy Diabetes mellitus, followed and managed by primary care physician History of liver failure with liver transplant done in 2002. 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
--- NOTE | 2019-05-07 12:13 | Progress Note - Hospitalist ---
Subjective HPI/CC On Admission Date Seen by Provider: May 07, 2019 Time Seen by Provider: 11:15 Subjective/Events-last exam Patient doing pretty well today Bowels are moving LifeVest is maintained and he is getting used to the feel of that Lortab was ordered for chronic back pain since all he had was fentanyl IV Ex- was concerned about his social situation living condition so we will consult social work on Thursday since he has high risk for readmission since he has been readmitted twice in the past 2 weeks so we will hold off on discharge until Thursday Review of Systems General: Fatigue Objective Exam Vital Signs Vital Signs Date Time Temp Pulse Resp B/P (MAP) Pulse Ox O2 Delivery O2 Flow Rate FiO2 05/07/19 19:00 95 05/07/19 16:00 37.0 16 112/71 (85) 96 Room Air 05/05/19 08:00 2.00 Capillary Refill : Less Than 3 Seconds General Appearance: No Apparent Distress, WD/WN, Chronically ill Respiratory: Lungs Clear Cardiovascular: Regular Rate, Rhythm Neurologic/Psychiatric: Alert, Oriented x3, No Motor/Sensory Deficits, Normal Mood/Affect Results/Procedures Lab Laboratory Tests 05/07/19 04:10 05/07/19 04:15 Patient resulted labs reviewed. Assessment/Plan Assessment and Plan Assess & Plan/Chief Complaint Assessment: NSTEMI Meth use Non-compliance Plan: Monitor BP Life vest Prognosis guarded Diagnosis/Problems Diagnosis/Problems (1) NSTEMI (non-ST elevated myocardial infarction) Status: Acute (2) Congestive heart failure Status: Acute Qualifiers: Heart failure type: systolic Heart failure chronicity: acute on chronic Qualified Codes: I50.23 - Acute on chronic systolic (congestive) heart failure (3) Methamphetamine use Status: Chronic (4) Diabetes mellitus type 2 with complications Status: Chronic (5) Anemia Status: Acute Qualifiers: Anemia type: unspecified type Qualified Codes: D64.9 - Anemia, unspecified (6) Financial difficulty Status: Chronic (7) Alcoholism Status: Chronic Clinical Quality Measures AMI/AHF: ASA po Prior to arrival: Yes DVT/VTE Risk/Contraindication: Risk Factor Score Per Nursin RFS Level Per Nursing on Admit: 4+=Very High KEITH CABALLERO DO May 07, 2019 12:13
[2019-05-07 16:00] VITALS: BP 112/71
[2019-05-07] MEDS: HYDROcodone/APAP 5 MG/325 MG (LORTAB) TAB PO PRN ×2 (16:05→23:57)
--- NOTE | 2019-05-07 18:05 | NUR ---
DR LONG NOTIFIED OF SCANT BLEEDING FOR RIGHT GROIN SITE. DRESSING CHANGED, NO ACTIVE BLEEDING NOTED AFTER DRESSING APPLIED. WILL MONITOR SITE CLOSELY. ORDER RECEIVED TO START PT ON LOVENOX 40MG DAILY.
[2019-05-07] MEDS ORDERED: ENOXAPARIN 40 MG/0.4 ML (LOVENOX) SYR SC SCH (18:30)
[2019-05-08 00:18] VITALS: BP 109/70
[2019-05-08 06:26] LABS: HEMOGLOBIN 12.2 G/DL (13.3-17.7); MEAN PLATELET VOLUME 11.1 FL (7.4-10.4); RED CELL DISTRIBUTION WIDTH 14.5 % (10.0-14.5); WHITE BLOOD COUNT 6.7 10^3/uL (4.3-11.0)
[2019-05-08] MEDS ORDERED: glyBURIDE 2.5 MG (MICRONASE) TAB PO SCH (06:30)
[2019-05-08] MEDS: inSUlin ASPART (NovoLOG) 1 UNIT/0.01 ML (CHARGE PER UNIT) SC SCH ×2 (06:30→11:41)
[2019-05-08] MEDS: OMEGA 3 (FISH OIL) 1000 MG CAP PO SCH (06:31)
[2019-05-08 06:40] LABS: ALANINE AMINOTRANSFERASE 55 U/L (0-55); ALBUMIN 3.4 GM/DL (3.2-4.5); ALKALINE PHOSPHATASE 125 U/L (40-136); BILIRUBIN,TOTAL 1.1 MG/DL (0.1-1.0); BUN/CREATININE RATIO 22; CALCIUM 9.3 MG/DL (8.5-10.1); CARBON DIOXIDE 26 MMOL/L (21-32); CHLORIDE 102 MMOL/L (98-107); CREATININE SERUM 0.97 MG/DL (0.60-1.30); GFR ESTIMATED > 60; GLUCOSE 265 MG/DL (70-105); POTASSIUM 4.7 MMOL/L (3.6-5.0); SODIUM 138 MMOL/L (135-145); TOTAL PROTEIN 7.2 GM/DL (6.4-8.2)
[2019-05-08 07:48] VITALS: BP 113/66
[2019-05-08] MEDS: meTOprolol TARTRATE 25 MG (LOPRESSOR) TABLET PO SCH (08:23)
[2019-05-08] MEDS: PANTOPRAZOLE 40 MG (PROTONIX) TAB PO SCH (08:23)
[2019-05-08] MEDS: TICAGRELOR 90 MG TABLET (BRILINTA) PO SCH ×2 (08:23→14:16)
[2019-05-08] MEDS: ASPIRIN E.C. 81 MG (ECOTRIN) TAB PO SCH (08:23)
[2019-05-08] MEDS: LOSARTAN 25 MG (COZAAR) TAB PO SCH (08:23)
[2019-05-08] MEDS ORDERED: TICA90TA PO (09:08)
[2019-05-08] MEDS ORDERED: OMG1KC PO (09:08)
--- NOTE | 2019-05-08 09:09 | Discharge Inst-Post CATH ---
Discharge Inst-CATH/EP Problems Reviewed?: Yes Post Cardiac Cath/EP D/C Inst Follow Up/Plan Appointment with Dr. Rodriguez's office next week <b>CARDIAC CATH/EP PROCEDURE DISCHARGE INSTRUCTIONS</b> ACTIVITY * Go Home directly and rest. * Limit activity of the leg (or wrist if it was used) for 7 days including aerobics, swimming, jogging, bicycling, etc. * Restrict stair-climbing for 7 days if possible, if not, climb up with your non-cath leg, then bring together on the same step. * Avoid lifting, pushing, pulling or excessive movement of the affected extremity for 7 days. * Customary sexual activity may be resumed after 2 days-use caution not to use a position that strains or causes pain to the affected extremity. * No driving for 24 hours. * NO SMOKING. * Avoid straining for bowel movements for 7 days. * Gentle walking on level ground is allowed. * Returning to work will depend on the type of procedure and the results. Your doctor will discuss this with you. CALL YOUR DOCTOR FOR ANY OF THE FOLLOWING: *If bleeding from the puncture site occurs- Apply gentle pressure to site with clean cloth and call your doctor or EMS. * If a knot or lump forms under the skin, increases in size, or causes pain. * If bruising appears to be worsening or moving further down your leg instead of disappearing. * Temperature above 101 F. CARE OF YOUR GROIN INCISION; * Bruising or purple discoloration of the skin near the puncture site is common. * You may shower only, no bathtub bathing for 5 days. Be careful to avoid slipping as your leg may feel stiff. * If a closure device was used on your femoral artery, please see the attached guide regarding care of the device and your leg. * Leave dressing on FOR 24 hours. CARE OF YOUR WRIST INCISION; * Bruising or purple discoloration of the skin near the puncture site is common. * You may shower. * DO NOT submerge wrist. * Leave dressing on FOR 24 hours. SAHARA RODRIGUEZ MD May 08, 2019 09:09
--- NOTE | 2019-05-08 09:13 | Cardiology Discharge Summary ---
Discharge Summary Hospital Course Problems Reviewed?: Yes Problems/Diagnosis: (1) Diabetes mellitus type 2 with complications Status: Chronic Assessment & Plan: Hold home metformin due to contrast. Sliding scale insulin, diabetic diet. (2) Congestive heart failure Status: Acute Assessment & Plan: Management per Dr. Rodriguez, acute worsening since earlier this week. Plan for Lifevest. Qualifiers: Qualified Codes: I50.23 - Acute on chronic systolic (congestive) heart failure (3) ST elevation NV (STEMI) Status: Acute Assessment & Plan: s/p stenting, management per Dr. Rodriguez Qualifiers: Qualified Codes: I21.02 - ST elevation (STEMI) myocardial infarction involving left anterior descending coronary artery (4) Methamphetamine use Status: Chronic Assessment & Plan: Offered addiction treatment services at [facility], he will consider. Discussed importance of complete cessation for his heart. (5) Financial difficulty Status: Chronic Assessment & Plan: Has had trouble with getting meds in past, received samples of Brilinta on last d/c, but still did not take. visitor services assistant consult. If patient is to discharge over the weekend and any concerns about getting medications, etc, please call [facility] for assistance. Hospital Course Date of Admission: May 04, 2019 at 21:12 Admission Diagnosis : Family Physician/Provider: Andreas Vergara MD Date of Discharge: 05/08/19 Discharge Diagnosis: [ Acute ST elevation myocardial infarction Coronary artery disease Hypertension Hyperlipidemia Diabetes mellitus] Hospital Course: [ Status post acute ST elevation myocardial infarctions anterior wall underwent emergency angioplasty with stenting to the LAD as described below Noncompliance with medication, educated in length on discharge on compliance Generalized weakness, loss of energy, will evaluate with physical therapy Coronary artery disease, cardiac catheterization done with 2 stents to the right coronary artery, Ita 2.75 x 18 mm and 2.523 mm not overlapping stents expanded to 3.05 proximally and 2.81 distally, had a tortuous LAD system with borderline lesion with dilated left ventricle, repeat cardiac catheterization was done on May 02, 2019, FFR through the LAD was significant, I proceeded with stenting the LAD using resolute integrity 2.5 x 18 mm expanded to 2.65 with excellent results, still have borderline lesion in the mid to distal LAD that will be treated conservatively at this time. Patient had moderate stenosis at the proximal diagonal branch that is a smaller artery, after his ST elevation myocardial infarction on May 04, 2019 I proceeded with cardiac catheterization which showed occlusion of the LAD proceeded with balloon angioplasty then deploying 2 more stents to the LAD using resolute integrity 2.5 x 18 mm at the midportion overlapping with old stent and distally resolute Lerona 2 x 22 with excellent results, had initially slow flow in the LAD then it improved with Cardene and Integrilin drip. EKG showed T-wave inversion in the anterolateral wall Congestive heart failure, acute left ventricular systolic dysfunction, ischemic cardiomyopathy, worsening left ventricular function over the past 2 weeks, stenting to the LAD was done, still having frequent PVCs echo showed improvement in the left ventricular function, left ventricular gram showed ejection fraction 30 percent, have a LifeVest for primary prevention, treated with Lopressor and losartan and tolerating medication well, borderline hypotension Frequent premature ventricular contractions, better at this time Hypertension, started back on low-dose beta blockers and low-dose losartan, borderline hypotensive at this time, continue to monitor Hyperlipidemia, history of liver transplant, start Lipitor and monitor Generalized fatigue and loss of energy continue with physical therapy Diabetes mellitus, followed and managed by primary care physician History of liver failure with liver transplant done in 2002. History of amputation of the toes secondary to osteomyelitis History of methamphetamine use last use was 3 days ago History of tobaccoism ] Labs and Pending Lab Test: Laboratory Tests 05/07/19 11:00: Glucometer 373H 05/07/19 15:41: Glucometer 286H 05/07/19 20:38: Glucometer 300H 05/08/19 05:03: Glucometer 232H 05/08/19 05:55: White Blood Count 6.7, Red Blood Count 4.12L, Hemoglobin 12.2L, Hematocrit 37L, Mean Corpuscular Volume 89, Mean Corpuscular Hemoglobin 30, Mean Corpuscular Hemoglobin Concent 33, Red Cell Distribution Width 14.5, Platelet Count 398, Mean Platelet Volume 11.1H, Sodium Level 138, Potassium Level 4.7, Chloride Level 102, Carbon Dioxide Level 26, Anion Gap 10, Blood Urea Nitrogen 21H, Creatinine 0.97, Estimat Glomerular Filtration Rate > 60, BUN/Creatinine Ratio 22, Glucose Level 265H, Calcium Level 9.3, Corrected Calcium 9.8, Total Bilirubin 1.1H, Aspartate Amino Transf (AST/SGOT) 43H, Alanine Aminotransferase (ALT/SGPT) 55, Alkaline Phosphatase 125, Total Protein 7.2, Albumin 3.4 Home Meds Active Fish Oil 1,000 mg Capsule (Carmichael 3 Polyunsat Fatty Acids) 1,000 Mg Cap 1,000 Mg PO BID WITH MEALS Brilinta (Ticagrelor) 90 Mg Tablet 90 Mg PO BID Metformin HCl 1,000 Mg Tablet 1,000 Mg PO BID Metoprolol Succinate 50 Mg Tab.er.24h 50 Mg PO DAILY Lipitor (Atorvastatin Calcium) 10 Mg Tablet 10 Mg PO DAILY Aspirin EC (Aspirin) 81 Mg Tablet.dr 81 Mg PO DAILY Reported Losartan Potassium 25 Mg Tablet 25 Mg PO DAILY Brilinta (Ticagrelor) 60 Mg Tablet 60 Mg PO BID Nitroglycerin 0.4 Mg Tab.subl 0.4 Mg SL GIVE 1 TABLET SL EVERY 5 MIN. PRN CHEST PAIN - MAX IS 3 TABLETS IN 15 MIN. PERIOD. Assessment/Pt DC Instructions patient was educated on compliance with medication, provided with prescription for medication, arrange for follow-up in my office in one week Orders-Post D/C & Referrals Pneu Vac Indicated: Yes Discharge Physical Examination Allergies: Coded Allergies: No Known Drug Allergies (Unverified , 12/14/17) General Appearance: No Apparent Distress, WD/WN HEENT: PERRL/EOMI, TMs Normal, Pharynx Normal Respiratory: Chest Non Tender, Lungs Clear, Normal Breath Sounds Cardiovascular: Regular Rate, Rhythm, No Edema, No Gallop, No JVD, No Murmur Gastrointestinal: Normal Bowel Sounds, No Organomegaly, No Pulsatile Mass, Non Tender Extremity: Normal Capillary Refill, Normal Inspection Skin: Cool Neurologic/Psychiatric: Alert, Oriented x3, No Motor/Sensory Deficits Clinical Quality Measures Admission Status Admission Status: Inpatient Order (span 2 midnights) Reason for Inpatient Admission: Acute ST elevation myocardial infarction AMI/AHF: ASA po Prior to arrival: Yes DVT/VTE Risk/Contraindication: Risk Factor Score Per Nursin RFS Level Per Nursing on Admit: 4+=Very High SAHARA RODRIGUEZ MD May 08, 2019 09:13
--- NOTE | 2019-05-08 14:25 | NUR ---
PT EVENING DOSE OF BRILINTA GIVEN TO PATIENT BEFORE DISCHARGE PER DR LONG ORDERS.
== END 2019-05-08 14:30 | disposition home or self-care (01) | DRG 246 ==
LOC: EDUNIT# 18:57 → ER 18:58 → CATH 19:27 → ICU 21:12 → 4TH 05-06 09:26
PROVIDERS: ADMIT Internal Medicine Cardiovascular Disease; ATTEND Internal Medicine Cardiovascular Disease
PROC: 027034Z Dilation of Coronary Artery, One Artery with Drug-eluting Intraluminal Device, Percutaneous Approach (ICD-10-PCS; principal; 2019-05-04)
PROC: 4A023N7 Measurement of Cardiac Sampling and Pressure, Left Heart, Percutaneous Approach (ICD-10-PCS; 2019-05-04)
PROC: B2111ZZ Fluoroscopy of Multiple Coronary Arteries using Low Osmolar Contrast (ICD-10-PCS; 2019-05-04)
PROC: B2151ZZ Fluoroscopy of Left Heart using Low Osmolar Contrast (ICD-10-PCS; 2019-05-04)
DX: I21.02 ST elevation (STEMI) myocardial infarction involving left anterior descending coronary artery (principal); I25.10 Atherosclerotic heart disease of native coronary artery without angina pectoris; Z95.5 Presence of coronary angioplasty implant and graft; I11.0 Hypertensive heart disease with heart failure; I50.23 Acute on chronic systolic (congestive) heart failure; I49.3 Ventricular premature depolarization; I25.5 Ischemic cardiomyopathy; E11.40 Type 2 diabetes mellitus with diabetic neuropathy, unspecified; Z94.4 Liver transplant status; K74.60 Unspecified cirrhosis of liver; E78.5 Hyperlipidemia, unspecified; F15.90 Other stimulant use, unspecified, uncomplicated; I73.9 Peripheral vascular disease, unspecified; F32.9 Major depressive disorder, single episode, unspecified; Z79.84 Long term (current) use of oral hypoglycemic drugs; Z91.14 Patient's other noncompliance with medication regimen; Z89.421 Acquired absence of other right toe(s); Z87.891 Personal history of nicotine dependence; Z89.411 Acquired absence of right great toe; Z89.422 Acquired absence of other left toe(s)
CPT/HCPCS: 36415; 71045; 80048; 80053; 80061; 82962; 83735; 83874; 83880; 84484; 85025; 85027; 85610; 85730; 93005; 93041; 93458; 96374; 96375

== ENCOUNTER → 2019-07-04 | Outpatient (CLI) | payer MEDICARE, MEDICAID ==
[~2019-07-04] MED LIST changes: +OMG1KC PO
== END ==
LOC: CARD 12:42
PROVIDERS: ATTEND Physician Assistant
DX: I25.10 Atherosclerotic heart disease of native coronary artery without angina pectoris (principal); I11.0 Hypertensive heart disease with heart failure; I50.9 Heart failure, unspecified; I65.23 Occlusion and stenosis of bilateral carotid arteries
CPT/HCPCS: 93306

== ENCOUNTER → 2019-08-08 | Outpatient (CLI) | payer MEDICARE, MEDICAID | LOC: CARD 08:39 | PROVIDERS: ATTEND Physician Assistant | DX: I08.0 Rheumatic disorders of both mitral and aortic valves (principal); I25.10 Atherosclerotic heart disease of native coronary artery without angina pectoris; I50.9 Heart failure, unspecified; I65.23 Occlusion and stenosis of bilateral carotid arteries; I10 Essential (primary) hypertension | CPT/HCPCS: 93306 ==

== ENCOUNTER 2019-09-07 11:15 | Day surgery (SDC) | payer MEDICARE, MEDICAID ==
[~2019-09-07] VITALS: Ht 183 cm; Wt 100.0 kg
[2019-09-07] VITALS (12 sets, daily range): BP systolic 130–168; BP diastolic 68–100
[~2019-09-07 11:15] MED LIST changes: -ACET-77 PO; +ACET-78 PO; -METO-370 PO; -METO-387 PO; +METO50TA7 PO; +MTP25TSR PO
[2019-09-07] MEDS ORDERED: NS IV 1000 ML 1,000 ML IV ONE (11:20)
[2019-09-07] MEDS ORDERED: LIDOCAINE 1% INJ 20 ML 20 ML VIAL ONE (11:22)
[2019-09-07] MEDS ORDERED: NS IV 1000 ML 1,000 ML ONE ×2 (11:22→14:14)
[2019-09-07] MEDS ORDERED: HEParin (CATH LAB) 1,000 ML IV ONE (11:22)
[2019-09-07] MEDS ORDERED: ceFAZolin INJECTION 1,000 MG ONE (11:24)
[2019-09-07] MEDS ORDERED: NS (IVPB) 50 ML ONE (11:25)
[2019-09-07] MEDS ORDERED: BACITRACIN 50000 UNITS/500 ML NS IR ONE ×2 (11:30)
[2019-09-07] MEDS ORDERED: BACITRACIN INJECTION 50,000 UNIT, SODIUM CHLORIDE 0.9% IRRIGATIO 500 ML IR ONE ×2 (11:30)
[2019-09-07] MEDS ORDERED: ceFAZolin INJECTION 1,000 MG VIAL IV NR (11:30)
[2019-09-07 11:48] LABS: BILIRUBIN,URINE NEGATIVE (NEGATIVE); CLARITY,URINE CLEAR; COLOR,URINE YELLOW; GLUCOSE, URINE (UA) 3+ (NEGATIVE); KETONES,URINE NEGATIVE (NEGATIVE); LEUKOCYTE ESTERASE ,URINE NEGATIVE (NEGATIVE); NITRITE,URINE NEGATIVE (NEGATIVE); PH,URINE 6.5 (5-9); PROTEIN,URINE NEGATIVE (NEGATIVE)
[2019-09-07 11:52] LABS: HEMOGLOBIN 14.7 G/DL (13.3-17.7); MEAN PLATELET VOLUME 11.7 FL (7.4-10.4); RED CELL DISTRIBUTION WIDTH 14.3 % (10.0-14.5); WHITE BLOOD COUNT 6.5 10^3/uL (4.3-11.0)
[2019-09-07 11:57] LABS: BACTERIA,URINE NEGATIVE /HPF; WBC,URINE RARE /HPF
[2019-09-07 11:59] LABS: INR 0.9 (0.8-1.4); PROTHROMBIN TIME PATIENT 12.6 SEC (12.2-14.7)
--- NOTE | 2019-09-07 12:04 | Diagnostic Imaging Report ---
INDICATION: Pre-heart catheterization. Patient has CHF and coronary artery disease. TIME OF EXAM: 11:42 a.m. COMPARISON: Correlation is made with prior study from 05/04/2019. FINDINGS: The heart size is normal. The pulmonary vascularity is unremarkable. The lungs are clear. No infiltrate, effusion or pneumothorax is detected. IMPRESSION: No acute cardiopulmonary process is detected. Dictated by: Dictated on workstation # [id number]
[2019-09-07 12:08] LABS: ALANINE AMINOTRANSFERASE 40 U/L (0-55); ALKALINE PHOSPHATASE 157 U/L (40-136); BILIRUBIN,TOTAL 0.3 MG/DL (0.1-1.0); BUN/CREATININE RATIO 13; CALCIUM 9.7 MG/DL (8.5-10.1); CARBON DIOXIDE 24 MMOL/L (21-32); CHLORIDE 103 MMOL/L (98-107); CHOLESTEROL 154 MG/DL (< 200); CREATININE SERUM 0.98 MG/DL (0.60-1.30); GFR ESTIMATED > 60; GLUCOSE 370 MG/DL (70-105); HDL CHOLESTEROL 39 MG/DL (40-60); POTASSIUM 4.1 MMOL/L (3.6-5.0); SODIUM 138 MMOL/L (135-145); TOTAL PROTEIN 8.3 GM/DL (6.4-8.2); TRIGLYCERIDES 128 MG/DL (<150); VLDL CHOLESTEROL 26 MG/DL (5-40)
[2019-09-07] MEDS ORDERED: OMEG100032 PO (12:09)
[2019-09-07] MEDS ORDERED: ASPI-983 PO (12:09)
[2019-09-07] MEDS ORDERED: MTP25TSR PO (12:11)
[2019-09-07] MEDS ORDERED: METF-399 PO (12:11)
[2019-09-07] MEDS ORDERED: ATOR10TA66 PO (12:11)
[2019-09-07] MEDS ORDERED: TICA90TA PO (12:12)
[2019-09-07] MEDS ORDERED: INSU100I29 SQ (12:13)
[2019-09-07] MEDS ORDERED: INSU100I14 SQ (12:13)
[2019-09-07] MEDS ORDERED: fentaNYL INJECTION 100 MCG/2 ML AMP ONE ×2 (12:32→13:21)
[2019-09-07] MEDS ORDERED: MIDAZOLAM 5 MG/5 ML (VERSED) VIAL ONE ×2 (12:32→13:21)
[2019-09-07] MEDS ORDERED: FURO40TA4 PO (12:33)
--- NOTE | 2019-09-07 12:34 | NUR ---
SPOKE WITH THE PT (HE HAD HIS MED BOTTLES BUT NOT INSULIN) WELL CALLING [facility] TO COMPLETE THE MED REC. THE FILL DATES ON BOTTLES ARE ABOUT 2 WEEKS PAST DUE AND THEY ALL STILL HAD TABLETS IN THEM. WHEN I ASKED THE PT ABOUT THIS HE INDICATED THERE WERE MORE BOTTLES AT HOME. WHEN I CALLED [facility] THEY DID NOT HAVE ANY NEWER FILL DATES (AND HE WAS NOT GIVEN ANYTHING FROM THE REPOSITORY OR PALS) THE FOLLOWING ARE FILL DATES FROM [facility]: 05-13-2019 LEVEMIR #1 BOX/75 DS 06-06-2019 FUROSEMIDE 40MG #20/PRN 06-20-2019 NOVOLOG #1 BOX/30DS 07-28-2019 LOSARTAN 25MG #30/30DS 07-28-2019 BRILINTA 90MG #60/30DS 07-28-2019 METOPROLOL SUCC 25MG #30/30DS 07-28-2019 ATORVASTATIN 10MG #30/30DS 08-30-2019 METFORMIN 1000MG #60/30DS I DOCUMENTED ON THE ONES THAT ARE PAST DUE REFILLS ON THE MED REC IN THE NOTES SECTION. OTC MEDS: FISH OIL ASPIRIN
[2019-09-07] MEDS ORDERED: proPOfol 200 MG/20 ML (DIPRIVAN) VIAL IV ONE (13:59)
[2019-09-07] MEDS ORDERED: NS IV 1000 ML 1,000 ML IV SCH (15:06)
--- NOTE | 2019-09-07 15:06 | Cardiac Procedure Note-CS/ASA ---
Pre-Procedure Note Pre-Op Procedure Note H&P Reviewed The H&P was reviewed, patient examined and no changes noted. Date H&P Reviewed: Sep 07, 2019 Time H&P Reviewed: 13:00 Conscious Sedation Pre-Proced Time 13:00 ASA Score 3 For ASA 3 and 4: Consider anesthesia and medical clearance. Also, for patients with a history of failed moderate sedation consider anesthesia. Airway Lungs Heart ASA score ASA 1: a normal healthy patient ASA 2: a patient with a mild systemic disease (mid diabetes, controlled hypertension, obesity X ASA 3: a patient with a severe systemic disease that limits activity (angina, COPD, prior Myocardial infarction) ASA 4: a patient with an incapacitating disease that is a constant threat to life (CHF, renal failure) ASA 5: a moribund patient not expected to survive 24 hrs. (ruptured aneurysm) ASA 6: a declared brain- patient whose organs are being harvested. For emergent operations, add the letter E after the classification Mallampati Classification Grade 3 Sedation Plan Analgesia, Amnesia, Plan communicated to team members, Discussed options with patient/fam, Discussed risks with patient/fam The patient is an appropriate candidate to undergo the planned procedure, sedation, and anesthesia. The patient immediately re-assessed prior to indication. SAHARA LONG MD Sep 07, 2019 15:06
[2019-09-07] MEDS ORDERED: FUROSEMIDE 40 MG (LASIX) TAB PO PRN (15:15)
[2019-09-07] MEDS ORDERED: PATIENT MAY USE OWN MEDS, ALL PO SCH (15:15)
--- NOTE | 2019-09-07 15:28 | Diagnostic Imaging Report ---
INDICATION: Pacemaker placement. TIME OF EXAM: 3:13 PM COMPARISON: Correlation is made with prior chest from earlier same day. FINDINGS: Left subclavian cardiac defibrillator has been placed. Lungs are clear. No infiltrates are seen. There is no pneumothorax. IMPRESSION: Defibrillator placement. No pneumothorax is detected. Dictated by: Dictated on workstation # [id number]
--- NOTE | 2019-09-07 15:52 | ICD Implantation ---
Single Chamber ICD Implant DATE OF SERVICE: 68 male SINGLE CHAMBER ICD IMPLANTATION MASTER CARPENTER: Sahara Rodriguez INDICATION: primary prevention PREOPERATIVE DIAGNOSES: congestive heart failure POSTOPERATIVE DIAGNOSES: congestive heart failure HISTORY: ICD implantation is recommended. PROCEDURE PERFORMED: 1. Single-chamber ICD implantation. 2. Implantable loop recorder explantation. 3. Venogram. 4. DFT testing. COMPLICATIONS: None. ESTIMATED BLOOD LOSS: 20 mL. SPECIMENS: None. ANESTHESIA: Conscious sedation. ORAL ANTICOAGULATION: None. FLUOROSCOPY DOSE: 360 mGy PROCEDURE DETAILS: After all the questions were answered, an informed consent was taken. All the risks and complication were explained in detail. The patient was brought to the EP lab. The patient's right and left chest was prepped and draped in the usual sterile fashion. A 2-inch horizontal incision was made 1 cm below the clavicle and dissection carried down to the pectoralis fascia. IV antibiotics were administered prior to first incision. Under fluoroscopic guidance, access was gained in the axillary vein and a regular J-wire was placed. We then introduced a sheath into the axillary vein. A ICD lead was inserted. This is a single- coiled ICD lead. The RV lead was inserted across the tricuspid valve to an apical septal portion of the RV. The lead position was checked in [employer] and HARP view. The screw was deployed and lead connected to the it programmer analyst. Good sensing and pacing thresholds were obtained. Diaphragmatic pacing was ruled out. The lead was secured with 2-0 Vicryl nonabsorbable sutures. The lead was secured to the underlying muscle and fascia. We then took an ICD generator and the lead was connected to the device in a hermetic fashion. The device and it was placed in the pocket. Aggressive irrigation with normal saline solution was done. Interrogation of the device revealed good integrity of the leads and connection. The wound was closed using 2 layers. The first layer was an inter rupted 2-0 Vicryl. The second layer was an uninterrupted 4-0 Vicryl suture. Half inch Steri-Strips and a small dressing was then applied to the wound. DFT testing was done with anesthesia support. The induction mechanism was a T- shock. initially did not induce V. tach, the lead was sensing atrium, I reopened the pocket and repositioned the lead then testing showed good sensing and capture, DFT testing was successful in terminating V. fib with no complication DEVICE INFORMATION: VISIA MRI [id number] LEAD 62 SERIAL [id number] INTRAOPERATIVE DEVICE TESTING: Impedance 519, R wave 12, Pacing threshold 0.5 V @0.4 MS DEVICE INTERROGATION IMMEDIATELY POSTOP: d SHOCK 310 MS, 0.6 j, IMPEDANCE 43, ENERGY 25, CHARGE TIME 5.8 PLAN: The patient will be observed for 23 hours. We will continue with two more dosages of IV antibiotics. We will check a chest x-ray and interrogate the device in the morning. An EKG will be done as well. If everything checks out, the patient will be discharged tomorrow. CONCLUSION: Successful implantation of single-chamber ICD with DFT testing with no complication FINAL DIAGNOSIS: Congestive heart failure, chronic left ventricular systolic dysfunction, ischemic cardiomyopathy Hypertension Hyperlipidemia SAHARA RODRIGUEZ MD Sep 07, 2019 15:52
[2019-09-07] MEDS ORDERED: PATIENT MAY USE OWN MEDS, ALL MC SCH (16:15)
--- NOTE | 2019-09-07 16:27 | NUR ---
PT C/O OF PAIN IN CHEST FROM ICD PLACEMENT, RATES PAIN AT 7 ON 0-[address] LONG ON FLOOR AND NEW VERBAL ORDERS RECEIVED. SEE ORDER HX.
[2019-09-07] MEDS: inSUlin ASPART (NovoLOG) 1 UNIT/0.01 ML (CHARGE PER UNIT) SQ SCH (17:22)
[2019-09-07] MEDS: oxyCODONE/APAP 5/325MG (PERCOCET 5) TABLET PO PRN (17:23)
[2019-09-07] MEDS: OMEGA 3 (FISH OIL) 1000 MG CAP PO SCH (21:16)
[2019-09-07] MEDS: TICAGRELOR 90 MG TABLET (BRILINTA) PO SCH (21:17)
[2019-09-07] MEDS: METFORMIN HCL 1000 MG PO SCH (21:18)
[2019-09-07] MEDS: ceFAZolin INJECTION 1,000 MG in WATER (STERILE) FOR INJECTION 10 ML IV SCH (22:27)
[2019-09-08 00:28] VITALS: BP 108/69
[2019-09-08 04:14] VITALS: BP 120/76
[2019-09-08 04:57] LABS: HEMOGLOBIN 12.4 G/DL (13.3-17.7); MEAN PLATELET VOLUME 11.4 FL (7.4-10.4); RED CELL DISTRIBUTION WIDTH 14.5 % (10.0-14.5)
[2019-09-08 05:22] LABS: ALANINE AMINOTRANSFERASE 30 U/L (0-55); ALKALINE PHOSPHATASE 104 U/L (40-136); BILIRUBIN,TOTAL 0.2 MG/DL (0.1-1.0); BUN/CREATININE RATIO 16; CALCIUM 8.4 MG/DL (8.5-10.1); CARBON DIOXIDE 23 MMOL/L (21-32); CHLORIDE 108 MMOL/L (98-107); CREATININE SERUM 0.74 MG/DL (0.60-1.30); GFR ESTIMATED > 60; GLUCOSE 236 MG/DL (70-105); POTASSIUM 3.9 MMOL/L (3.6-5.0); SODIUM 137 MMOL/L (135-145); TOTAL PROTEIN 6.4 GM/DL (6.4-8.2)
[2019-09-08] MEDS: inSUlin ASPART (NovoLOG) 1 UNIT/0.01 ML (CHARGE PER UNIT) SQ SCH (06:45)
[2019-09-08] MEDS: ceFAZolin INJECTION 1,000 MG in WATER (STERILE) FOR INJECTION 10 ML IV SCH (06:46)
[2019-09-08 08:05] VITALS: BP 121/76
[2019-09-08] MEDS ORDERED: CEFU500T63 PO (08:39)
--- NOTE | 2019-09-08 08:39 | Discharge Inst-Cardiology ---
Discharge Inst-Cardiac Problems Reviewed?: Yes Patient Instructions Patient Instructions: Appointment with Dr. LONG's office in one week Activity & Diet Discharge Diet: Cardiac Diet Drink 6-8 Glasses/Fluids/Day: Yes Activity as Tolerated: Yes Orders-Post D/C & Referrals Pneu Vac Indicated: Yes SAHARA LOGN MD Sep 08, 2019 08:39
--- NOTE | 2019-09-08 08:41 | Cardiology Progress Note ---
Subjective Date Seen by Provider: Sep 08, 2019 Time Seen by Provider: 08:40 Subjective/Events-last exam Patient is laying down in bed, feeling well. No new complaint, site is healing well Review of Systems General: No Chills, No Night Sweats, No Fatigue, No Malaise, No Appetite, No Other HEENT: No Head Aches, No Visual Changes, No Eye Pain, No Ear Pain, No Dysphasia , No Sinus Congestion, No Post Nasal Drip, No Sore Throat, No Other Pulmonary: No Dyspnea, No Cough, No Pleuritic Chest Pain, No Other Cardiovascular: No: Chest Pain, Palpitations, Orthopnea, Paroxysmal Noc. Dyspnea, Edema, Lt Headedness, Other Objective-Cardiology Exam Last Set of Vital Signs Vital Signs 09/08/19 08:05 Temp 36.9 Pulse 69 Resp 18 B/P (MAP) 121/76 (91) Pulse Ox 97 O2 Delivery Room Air Capillary Refill : General: Alert, Oriented X3, Cooperative HEENT: Atraumatic, PERRLA Neck: Supple, No JVD, No Thyromegaly Lungs: Clear to Auscultation, Normal Air Movement Heart: Regular Rate, Normal S1, Normal S2, No Murmurs Abdomen: Normal Bowel Sounds, Soft, No Tenderness, No Hepatosplenomegaly, No Masses Extremities: No Clubbing, No Cyanosis, No Edema, Normal Pulses, No Tenderness/Swelling Skin: No Rashes, No Breakdown, No Significant Lesion Neuro: Normal Gait, Normal Speech, Strength at 5/5 X4 Ext, Normal Tone, Sensation Intact Psych/Mental Status: Mental Status NL, Mood NL Results Lab Laboratory Tests 09/07/19 11:39 09/08/19 04:35 A/P-Cardiology Admission Diagnosis Congestive heart failure Coronary artery disease Hypertension Hyperlipidemia Assessment/Plan Congestive heart failure, chronic compensated left ventricular systolic d ysfunction, ischemic cardiomyopathy Status post single-chamber ICD implant for primary prevention Hypertension, continue to monitor blood pressure next Coronary artery disease continue on aspirin and SAHARA Donahue MD Sep 08, 2019 08:41
[2019-09-08] MEDS: oxyCODONE/APAP 5/325MG (PERCOCET 5) TABLET PO PRN (08:54)
[2019-09-08] MEDS: TICAGRELOR 90 MG TABLET (BRILINTA) PO SCH (08:55)
[2019-09-08] MEDS: OMEGA 3 (FISH OIL) 1000 MG CAP PO SCH (08:56)
[2019-09-08] MEDS: METFORMIN HCL 1000 MG PO SCH (08:56)
[2019-09-08] MEDS ORDERED: ASPIRIN E.C. 81 MG (ECOTRIN) TAB PO SCH (09:00)
[2019-09-08] MEDS ORDERED: LOSARTAN 25 MG (COZAAR) TAB PO SCH (09:00)
[2019-09-08 10:33] VITALS: BP 121/76
--- NOTE | 2019-09-08 12:36 | Anesthesia-General Post-Op ---
MAC Patient Condition Mental Status/LOC: Same as Preop Cardiovascular: Satisfactory Nausea/Vomiting: Absent Respiratory: Satisfactory Pain: Controlled Complications: Absent Post Op Complications Complications None Follow Up Care/Instructions Patient Instructions None needed. Anesthesiology Discharge Order Discharge Order Patient is already discharged to home but he was doing well, no complaints, stable vital signs, no apparent adverse anesthesia problems prior to discharge per nursing staff. ADELE HOLLAND DO Sep 08, 2019 12:36
== END 2019-09-08 10:30 | disposition home or self-care (01) ==
LOC: CATH 11:15 → CSD 15:36 → CATH 09-08 10:30
PROVIDERS: ATTEND Internal Medicine Cardiovascular Disease
DX: I11.0 Hypertensive heart disease with heart failure (principal); I50.9 Heart failure, unspecified; I25.10 Atherosclerotic heart disease of native coronary artery without angina pectoris; E11.9 Type 2 diabetes mellitus without complications; E78.2 Mixed hyperlipidemia; I25.2 Old myocardial infarction; I08.0 Rheumatic disorders of both mitral and aortic valves; I65.23 Occlusion and stenosis of bilateral carotid arteries; Z79.4 Long term (current) use of insulin; Z79.82 Long term (current) use of aspirin; Z90.49 Acquired absence of other specified parts of digestive tract; Z87.891 Personal history of nicotine dependence; Z94.4 Liver transplant status
CPT/HCPCS: 33249; 36415; 71045; 80053; 80061; 81000; 82962; 85027; 85610; 85730; 87081; 93005; 93641

== ENCOUNTER → 2019-10-03 | Outpatient (CLI) | payer MEDICARE, MEDICAID ==
[~2019-10-03] MED LIST changes: +ATOR10TA66 PO; +CEFU500T63 PO; +INSU100I14 SQ; +INSU100I29 SQ; +OMEG100032 PO
[2019-10-03 12:50] LABS: ABG BASE EXCESS -1.5 MMOL/L (-2.5-2.5); ABG OXYGEN SATURATION 98 % (94-100); ABG PCO2 33 MMHG (35-45); ABG PH 7.44 (7.37-7.43); ABG PO2 89 MMHG (79-93); ABG TCO2 23.3 MMOL/L (21.0-31.0); ALLENS TEST POSITIVE; PATIENT TEMP 97; VENTILATOR NO
== END ==
LOC: LAB 12:40
PROVIDERS: ATTEND Nurse Practitioner Family
DX: J84.9 Interstitial pulmonary disease, unspecified (principal); Z87.891 Personal history of nicotine dependence
CPT/HCPCS: 36600; 82805

== ENCOUNTER → 2019-10-10 | Outpatient (CLI) | payer MEDICARE, MEDICAID ==
[2019-10-03 12:50] LABS: ABG BASE EXCESS -1.5 MMOL/L (-2.5-2.5); ABG OXYGEN SATURATION 98 % (94-100); ABG PCO2 33 MMHG (35-45); ABG PH 7.44 (7.37-7.43); ABG PO2 89 MMHG (79-93); ABG TCO2 23.3 MMOL/L (21.0-31.0); ALLENS TEST POSITIVE; PATIENT TEMP 97; VENTILATOR NO
[~2019-10-10] MED LIST changes: +RT-ALBUTEROL SULF 2.5 MG/3 ML PRE-MIX VIAL INH ONE; +RT-ALBUTEROL SULF 2.5 MG/3 ML PRE-MIX VIAL ONE
--- NOTE | 2019-10-10 14:36 | Diagnostic Imaging Report ---
PROCEDURE: CT chest without contrast. TECHNIQUE: Multiple contiguous axial images were obtained through the chest without the use of intravenous contrast. High-resolution imaging was obtained in both the supine and prone position. Auto Exposure Controls were utilized during the CT exam to meet ALARA standards for radiation dose reduction. INDICATION: Dyspnea, interstitial lung disease, shortness of air. History of three previous heart attacks. CORRELATION STUDY: 04/30/2019 FINDINGS: Left-sided pacemaker is present with metallic artifact. Heart size within normal limits. Rather extensive areas of coronary artery calcification and/or stent are present. No significant pericardial effusion. Small hiatal hernia. Multiple calcified granulomas throughout the mediastinum and hilar lymph node regions. No suggestion for pathologically enlarged lymphadenopathy on noncontrast imaging. Thoracic aortic contour is unremarkable. There is presence of emphysematous change about the lung parenchyma. No consolidating infiltrate. There is prominent interstitial markings particularly in the peripheral, subpleural regions. Slightly greater involving the lower lung distribution. Rosa honeycombing and/or pulmonary destructive change however is not otherwise demonstrated. No significant large bulla or bleb formation. A few scattered small calcified granulomas present. Additional small noncalcified micronodules are also present. Visualized portion of the upper abdomen demonstrates distention of the stomach with retained gastric contents likely owing to recent meal ingestion. 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 This is relatively stable from previous older CT imaging of the abdomen. May be an additional approximately 9 mm nodular area right renal pelvis also present, may be a tortuous vessel. IMPRESSION: 1. Negative for acute abnormality of the chest. 2. Prominent interstitial changes consistent with likely underlying chronic interstitial lung disease. No rosa pulmonary destructive changes. 3. Findings compatible with prior granulomatous changes. Dictated by: Dictated on workstation # [id number]
== END ==
LOC: RT 12:47
PROVIDERS: ATTEND Nurse Practitioner Family
DX: J84.9 Interstitial pulmonary disease, unspecified (principal); Z86.74 Personal history of sudden cardiac arrest; Z87.891 Personal history of nicotine dependence; Z95.0 Presence of cardiac pacemaker
CPT/HCPCS: 36600; 71250; 82805; 94060; 94726; 94729

== ENCOUNTER 2020-01-03 21:03 | Inpatient (IN) | payer MEDICARE, MEDICAID ==
[~2020-01-03] VITALS: Ht 167.7 cm; Wt 96.7 kg
[~2020-01-03 21:03] MED LIST changes: +AMIODARONE (OMNICELL DRIP KIT) 150 MG/3 ML IV ONE; +AMIODARONE 450 MG/9 ML (CORDARONE) VIAL IV ONE; +CATHETER FLUSH 10 ML SYR IV ONE; +D5W IV SOLUTION (EXCEL) 250 ML IV ONE; -RT-ALBUTEROL SULF 2.5 MG/3 ML PRE-MIX VIAL INH ONE; -RT-ALBUTEROL SULF 2.5 MG/3 ML PRE-MIX VIAL ONE
--- NOTE | 2020-01-03 21:06 | NUR ---
2105 EKG (AFIB V-TACH) 2106 Pt hooked up to ZOLL monitor 2109 150mg amiodarone (crash cart) 2113 18g IV to R FA 2116 Glucose 371
[2020-01-03] MEDS ORDERED: ADENOSINE 6 MG/2 ML (ADENOCARD) VIAL IV ONE ×2 (21:08)
[2020-01-03] MEDS ORDERED: AMIODARONE (OMNICELL DRIP KIT) 150 MG/3 ML IV ONE (21:10)
[2020-01-03] MEDS ORDERED: meTOprolol 5 MG/5 ML (LOPRESSOR) VIAL IV ONE (21:15)
--- OUTSIDE RECORDS SUMMARY | 2020-01-03 21:16 | XMS REPORT | Clinical Summary ---
Author Author [facility] Organization [facility] Address Unknown Phone Unavailable Care Team Providers Care Product Director Name Role Phone Bronson Dahl MD PCP Source Comments Some departments are not documenting in the electronic medical record. If you d o not see the information that you expected, contact Release of Information in [facility] Information Management department at [phone] for further assistan ce in locating additional records.[facility] Allergies Not on File Medications Not on file Active Problems Not on file Social History Date Tobacco Use Types Packs/Day Years Used Never Assessed Sex Assigned at Date Recorded Not on file Industry Job Start Date Occupation Not on file Not on file Not on file Travel End Travel History Travel Start No recent travel history available. Last Filed Vital Signs Not on file Plan of Treatment Health Maintenance Due Date Last Done Comments DTAP/TDAP VACCINES (1 - 1970 Tdap) HEPATITIS C SCREENING 1970 PHYSICAL (COMPREHENSIVE) 1970 EXAM COLORECTAL CANCER 2002 SCREENING SHINGLES RECOMBINANT 2002 VACCINE (1 of 2) PNEUMONIA (PPSV23) 2017 VACCINE (1 of 1 - PPSV23) INFLUENZA VACCINE 05/03/2020 Results Not on filefrom Last 3 Months Advance Directives Patient Tax Appraiser Explanation Type Date Recorded Advance 07/08/2013 11:51 AM Directive/DPOA
--- OUTSIDE RECORDS SUMMARY | 2020-01-03 21:18 | XMS REPORT ---
Author Author Stevie QUIÑONEZ Organization [facility] [place] Address [address] [place] [address] Care Team Providers Care Phlebotomy Coordinator Name Role Phone SUSAN QUIÑONEZ Unavailable PROBLEMS Type Condition ICD9-CM Code FIK03-QA Code Onset Dates Condition S tatus SNOMED Code Problem Depressive disorder, not elsewhere classified F32. 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 Active 159587147 Problem Status post amputation of toe of right foot Z89.42 1 Active 583490593 Problem Peripheral vascular disease I73.9 Ac tive 578969835 Problem Chronic hepatitis C without hepatic coma B18.2 Active 050389632 Problem BMI 32.0-32.9,adult Z68.32 Active 347629250 Problem Venous insufficiency I87.2 Active 86594024 Problem Type 2 diabetes mellitus with other specified complication E11.69 Active [id number] Problem Long-term insulin use Z79.4 Active 459139961 Problem Osteomyelitis M86.9 Active 541566 00 Problem Acquired absence of right great toe Z89.411 Active 540089715 Problem 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 Active 277335769 Problem Coronary artery disease invo lving [place] coronary artery of [place] heart without angina pectoris I25.10 Active 1641 073741478 Problem Coronary artery disease invo lving [place] coronary artery of [place] heart without angina pectoris I25.10 Active 1641 [id number] ALLERGIES No Information ENCOUNTERS Encounter Location Date Diagnosis [facility] [place] [address] [facility] [id number] [address] [place] [address] Jan, [facility] [place] [address] [facility] [id number] [address] [place] [address] Jun, [facility] [place] [address] [id number] [address] [place] [address] Jun, Type 2 diabetes mellitus wit h other specified complication E11.69 ; Interstitial pulmonary fibrosis J84.10 and Venous insufficiency I87.2 [facility] [place] [address] [id number] [address] [place] [address] May, Coronary artery disease invo lving [place] coronary artery of [place] heart without angina pectoris I25.10 ; Type 2 diabetes mellitus with other specified complication E11.69 and Long-term insulin use Z79.4 [facility] [place] [address] [id number] [address] [place] [address] 07 May, 2019 [facility] [place] [address] [id number] [address] [place] [address] May, [facility] [place] [address] [id number] [address] [place] [address] Apr, Type 2 diabetes mellitus wit h other specified complication E11.69 ; Coronary artery disease involving [place] coronary artery of [place] heart without angina pectoris I25.10 and Encounter for immunization Z23 [facility] [place] [address] [id number] [address] [place] [address] Apr, [facility] [place] [address] [id number] [address] [place] [id number] Apr, [facility] [place] [address] [id number] [address] [place] [address] December, Chronic hepatitis C without hepatic coma B18.2 and Type 2 diabetes mellitus with other specified complication E11.69 [facility] [place] [address] [id number] [address] [place] [address] Nov, Abnormal PSA R97.20 [facility] [place] [address] [id number] [address] [place] [address] Nov, [facility] [place] [address] [id number] [address] [place] [address] 18 Apr, 2019 Encounter for Medicare annua l wellness exam Z00.00 ; Type 2 diabetes mellitus with other specified complication E11.69 ; Peripheral vascular disease I73.9 ; Encounter for immunization Z23 ; Liver transplant recipient Z94.4 ; Acquired absence of right great toe Z89.411 ; 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 and Routine adult health maintenance Z00.00 [facility] [place] [address] [place] [id number] [address] [place] [address] Nov, Medicare annual wellness vis it, initial Z00.00 ; Type 2 diabetes mellitus with other specified complication E11.69 ; Depressive disorder, not elsewhere classified F32.9 ; Peripheral vascular disease I73.9 ; Encounter for immunization Z23 ; Liver transplant recipient Z94.4 ; Status post amputation of toe of right foot Z89.421 and BMI 32.0-32.9,adult Z68.32 [facility] [place] [id number] [place] [address] 13 Oct, 2017 [facility] [place] [address] [place] [id number] [address] [place] [address] Oct, [facility] [place] [address] [place] [id number] [address] [place] [address] Oct, Type 2 diabetes mellitus wit h other specified complication E11.69 ; Chronic hepatitis C without hepatic coma B18.2 and Depressive disorder, not elsewhere classified F32.9 [facility] [place] [address] [place] [id number] [address] [place] [address] Sep, [facility] [place] [address] [place] [id number] [address] [place] [address] Sep, [facility] [place] [address] [place] [id number] [address] [place] [address] Sep, [facility] [address] [place] [id number] [place] [id number] Sep, Diabetes E11.9 [facility] [place] [address] [place] [id number] [address] [place] [address] Sep, [facility] [address] [place] [id number] Sep Peripheral vascular disease I73.9 ; 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 ; Status post amputation of toe of right foot Z89.421 ; Type 2 diabetes mellitus with other specified complication E11.69 and Liver transplant recipient Z94.4 [facility] [address] [id number] [place] [id number] 16 Sep, 2017 [facility] [address] [place] [id number] Sep Status post amputation of toe of right foot Z89.421 ; 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 ; Osteomyelitis M86.9 ; Diabetes E11.9 ; Liver transplant recipient Z94.4 and History of drug abuse Z87.898 [facility] [address] [id number] [place] [id number] Sep, [place] [address] [place] [id number] [address] [place] [address] Jan, [place] [address] [facility] [id number] [address] [place] [address] Jan, [place] [address] [place] [id number] [address] [place] [address] December, Diabetes E11.9 ; Back pain M 54.9 and Anemia due to other cause D64.89 [place] [address] [facility] [id number] [address] [place] [address] December, Osteomyelitis, unspecified M 86.9 [facility] [place] [address] [facility] [id number] [address] [place] [address] December, [place] [address] [facility] [id number] [address] [place] [address] December, Diabetes E11.9 [facility] [place] [address] [facility] [id number] [address] [place] [address] Jan, Seborrheic keratoses L82.1 a nd Abscess of neck L02.11 [place] [address] [place] [id number] [address] [place] [address] 15 Feb, 2016 Sebaceous cyst L72.3 [facility] [address] [facility] [id number] [address] [place] [address] 13 Feb, 2016 Abscess, neck L02.11 [facility] [place] [address] [facility] [id number] [address] [place] [address] 18 Oct, 2015 Diabetes E11.9 [facility] [place] [address] [facility] [id number] [address] [place] [address] 09 Oct, 2015 Back pain M54.9 [facility] [place] [address] [facility] [id number] [address] [place] [address] Sep, Back pain M54.9 [facility] [place] [address] [facility] [id number] [address] [place] [address] 04 Sep, 2015 Back pain M54.9 [facility] [place] [address] [facility] [id number] [address] [place] [address] Aug, Back pain M54.9 [facility] [place] [address] [facility] [id number] [address] [place] [address] Aug, Diabetes E11.9 and Liver tra nsplant recipient Z94.4 [facility] [place] [address] [facility] [id number] [address] [place] [address] Aug, Back pain M54.9 [facility] [place] [address] [facility] [id number] [address] [place] [address] Jul, [facility] [place] [address] [facility] [id number] [address] [place] [address] 16 Jul, 2015 [facility] [place] [address] [facility] [id number] [address] [place] [address] Jul, [facility] [place] [address] [facility] [id number] [address] [place] [address] Jun, Depressive disorder, not els ewhere classified F32.9 [facility] [place] [address] [facility] [id number] [address] [place] [address] Jun, Diabetes E11.9 ; Depressive disorder, not elsewhere classified F32.9 and Back pain M54.9 [facility] [address] [id number] [address] [place] [address] Jun, [facility] [address] [id number] [address] [place] [address] Jun, [facility] [address] [id number] [address] [place] [address] May, [facility] [address] [id number] [address] [place] [address] May, [facility] [address] [id number] [address] [place] [address] Apr, [facility] [address] [id number] [address] [place] [address] Apr, [facility] [address] [id number] [address] [place] [address] Mar, [facility] [address] [id number] [address] [place] [address] Mar, [facility] [address] [id number] [address] [place] [id number] Mar, Dental examination V72.2 [facility] [place] [address] [id number] [address] [place] [address] Jan, [facility] [address] [id number] [address] [place] [address] Jan, [facility] [address] [id number] [address] [place] [address] Jan, [facility] [address] [id number] [address] [place] [address] Jan, [facility] [address] [id number] [address] [place] [address] Jan, [facility] [address] [id number] [address] [place] [address] December, [facility] [address] [id number] [address] [place] [address] December, [facility] [address] [id number] [address] [place] [address] December, Diabetes mellitus type 2, un controlled 250.02 and Osteomyelitis of ankle or foot 730.27 [facility] [address] [id number] [address] [place] [address] December, [facility] [address] [id number] [address] [place] [address] Nov, [facility] [address] [id number] [address] [place] [address] Nov, [facility] [address] [id number] [address] [place] [address] Oct, [facility] [address] [id number] [address] [place] [address] Oct, [facility] [address] [id number] [address] [place] [address] Oct, [facility] [address] [id number] [address] [place] [address] Oct, [facility] [address] [id number] [address] [place] [address] Sep, [facility] [address] [id number] [address] [place] [address] Sep, [facility] [address] [id number] [address] [place] [address] Sep, [facility] [address] [id number] [address] [place] [address] Sep, [facility] [address] [id number] [address] [place] [address] Aug, [facility] [address] [id number] [address] [place] [address], [place] [address] Aug, [facility] [address] [id number] [address] [place] [address], [place] [address] Aug, [facility] [address] [id number] [address] [place] [address], [place] [address] Aug, [facility] [address] [id number] [address] [place] [address], [place] [address] Aug, [facility] [address] [id number] [address] [place] [address], [place] [address] Aug, [facility] [address] [id number] [address] [place] [address], [place] [address] Jul, [facility] [address] [id number] [address] [place] [address], [place] [address] Jul, [facility] [address] [id number] [address] [place] [address], [place] [address] Jul, [facility] [address] [id number] [address] [place] [address], [place] [address] Jul, [facility] [address] [id number] [address] [place] [address], [place] [address] Jul, [facility] [address] [id number] [address] [place] [address], [place] [address] Jul, [facility] [address] [id number] [address] [place] [address], [place] [address] Jun, [facility] [address] [id number] [address] [place] [address], [place] [address] Jun, [facility] [address] [id number] [address] [place] [address], [place] [address] Jun, [facility] [address] [id number] [address] [place] [address], [place] [address] Jun, [facility] [address] [id number] [address] [place] [address], [place] [address] May, [facility] [address] [id number] [address] [place] [address], [place] [address] May, [facility] [address] [id number] [address] [place] [address], [place] [address] May, [facility] [address] [id number] [address] [place] [address], [place] [address] May, [facility] [address] [id number] [address] [place] [address], [place] [address] May, [facility] [address] [id number] [address] [place] [address], [place] [address] May, [facility] [address] [id number] [address] [place] [address], [place] [address] Apr, [facility] [address] [id number] [address] [place] [address], [place] [address] Apr, [facility] [address] [id number] [address] [place] [address], [place] [address] Apr, [facility] [address] [id number] [address] [place] [address], [place] [address] Apr, [facility] [address] [id number] [address] [place] [address], [place] [address] Mar, [facility] [address] [id number] [address] [place] [address], [place] [address] Mar, [facility] [address] [id number] [address] [place] [address], [place] [address] Mar, [facility] [address] [id number] [address] [place] [address], [place] [address] Mar, [facility] [address] [id number] [address] [place] [address], [place] [address] Jan, [facility] [address] [id number] [address] [place] [address], [place] [address] Jan, [facility] [address] [id number] [address] [place] [address], [place] [address] Jan, [facility] [address] [id number] [address] [place] [address], [place] [address] Jan, [facility] [address] [id number] [address] [place] [address], [place] [address] Jan, [facility] [address] [id number] [address] [place] [address], [place] [address] Jan, [facility] [address] [id number] [address] [place] [address], [place] [address] Jan, [facility] [address] [id number] [address] [place] [address], [place] [address] Jan, [facility] [address] [id number] [address] [place] [address], [place] [address] Jan, [facility] [address] [id number] [address] [place] [address], [place] [address] Jan, [facility] [address] [id number] [address] [place] [address], [place] [address] Jan, [facility] [address] [id number] [address] [place] [address], [place] [address] Jan, [facility] [address] [id number] [address] [place] [address], [place] [address] December, [facility] [address] [id number] [address] [place] [address], [place] [address] December, [facility] [address] [id number] [address] [place] [address], [place] [address] December, [facility] [address] [id number] [address] [place] [address], [place] [address] December, [facility] [address] [id number] [address] [place] [address], [place] [address] December, [facility] [address] [id number] [address] [place] [address], [place] [address] December, [facility] [address] [id number] [facility] [place] [address] Nov, [facility] [address] [id number] [facility] [place] [address] Nov, [facility] [address] [id number] [facility] [place] [address] Nov, [facility] [address] [id number] [address] [place] [address], [place] [address] Nov, [facility] [address] [id number] [address] [place] [address], [place] [address] Nov, [facility] [address] [id number] [address] [place] [address], [place] [address] Nov, [facility] [address] [id number] [address] [place] [address], [place] [address] Oct, [facility] [address] [id number] [address] [place] [address], [place] [address] Oct, [facility] [address] [id number] [address] [place] [address], [place] [address] Oct, [facility] [address] [id number] [address] [place] [address], [place] [address] Oct, [facility] [address] [id number] [address] [place] [address], [place] [address] Sep, [facility] [address] [id number] [address] [place] [address], [place] [address] Sep, [facility] [address] [id number] [address] [place] [address], [place] [address] Sep, [facility] [address] [id number] [address] [place] [address], [place] [address] Sep, [facility] [address] [id number] [address] [place] [address], [place] [address] Sep, [facility] [address] [id number] [address] [place] [address], [place] [address] Sep, [facility] [address] [id number] [address] [place] [address], [place] [address] Sep, [facility] [address] [id number] [address] [place] [address], [place] [address] Sep, [facility] [address] [id number] [address] [place] [address], [place] [address] Sep, [facility] [address] [id number] [address] [place] [address], [place] [address] Sep, [facility] [address] [id number] [address] [place] [address], [place] [address] Aug, [facility] [address] [id number] [address] [place] [address], [place] [address] Aug, [facility] [address] [id number] [address] [place] [address], [place] [address] Aug, [facility] [address] [id number] [address] [place] [address], [place] [address] Aug, [facility] [address] [id number] [address] [place] [address], [place] [address] Aug, [facility] [address] [id number] [address] [place] [address], [place] [address] Aug, [facility] [address] [id number] [address] [place] [address], [place] [address] Jul, [facility] [address] [id number] [address] [place] [address], [place] [address] Jul, [facility] [address] [id number] [address] [place] [address], [place] [address] Jul, [facility] [address] [id number] [address] [place] [address], [place] [address] Jul, [facility] [address] [id number] [address] [place] [address], [place] [address] Jul, [facility] [address] [id number] [address] [place] [address], [place] [address] Jul, [facility] [address] [id number] [address] [place] [address], [place] [address] Jul, [facility] [address] [id number] [address] [place] [address], [place] [address] Jul, [facility] [address] [id number] [address] [place] [address], [place] [address] Jul, [facility] [address] [id number] [address] [place] [address], [place] [address] Jul, [facility] [address] [id number] [address] [place] [address], [place] [address] Jun, [facility] [address] [id number] [address] [place] [address], [place] [address] Jun, [facility] [address] [id number] [address] [place] [address], [place] [address] Jun, [facility] [address] [id number] [address] [place] [address], [place] [address] Jun, [facility] [address] [id number] [address] [place] [address], [place] [address] May, [facility] [address] [id number] [address] [place] [address], [place] [address] May, [facility] [address] [id number] [address] [place] [address], [place] [address] Apr, [facility] [address] [id number] [address] [place] [address], [place] [address] Apr, [facility] [address] [id number] [address] [place] [address], [place] [address] Apr, [facility] [address] [id number] [address] [place] [address], [place] [address] Mar, [facility] [address] [id number] [address] [place] [address], [place] [address] Mar, [facility] [address] [id number] [address] [place] [address], [place] [address] Jan, [facility] [address] [id number] [address] [place] [address], [place] [address] Jan, [facility] [address] [id number] [address] [place] [address], [place] [address] Jan, [facility] [address] [id number] [address] [place] [address], [place] [address] Jan, [facility] [address] [id number] [address] [place] [address], [place] [address] Jan, [facility] [address] [id number] [address] [place] [address], [place] [address] Jan, [facility] [address] [id number] [address] [place] [address], [place] [address] Jan, [facility] [address] [id number] [address] [place] [address], [place] [address] December, [facility] [address] [id number] [address] [place] [address], [place] [address] December, [facility] [address] [id number] [address] [place] [address], [place] [address] December, [facility] [address] [id number] [address] [place] [address], [place] [address] Nov, [facility] [address] [id number] [address] [place] [address], [place] [address] Nov, [facility] [address] [id number] [address] [place] [address], [place] [address] Oct, [facility] [address] [id number] [address] [place] [address], [place] [address] Oct, [facility] [address] [id number] [address] [place] [address], [place] [address] Sep, [facility] [address] [id number] [address] [place] [address], [place] [address] 08 Sep, 2012 [facility] [address] [id number] [address] [place] [address], [place] [address] Aug, [facility] [address] [id number] [address] [place] [address], [place] [address] Aug, [facility] [address] [id number] [address] [place] [address], [place] [address] Jul, [facility] [address] [id number] [address] [place] [address], [place] [address] Jul, [facility] [address] [id number] [address] [place] [address], [place] [address] Jul, [facility] [address] [id number] [address] [place] [address], [place] [address] Jul, [facility] [address] [id number] [address] [place] [address], [place] [address] Jul, [facility] [address] [id number] [address] [place] [address], [place] [address] Jul, [facility] [address] [id number] [address] [place] [address], [place] [address] Jul, [facility] [address] [id number] [address] [place] [address], [place] [address] Jul, [facility] [address] [id number] [address] [place] [address], [place] [address] Jun, [facility] [address] [id number] [address] [place] [address], [place] [address] Jun, [facility] [address] [id number] [address] [place] [address], [place] [address] Jun, [facility] [address] [id number] [address] [place] [address], [place] [address] Jun, [facility] [address] [id number] [address] [place] [address], [place] [address] Jun, [facility] [address] [id number] [address] [place] [address], [place] [address] Jun, [facility] [address] [id number] [address] [place] [address], [place] [address] Jun, [facility] [address] [id number] [address] [place] [address], [place] [address] Jun, [facility] [address] [id number] [address] [place] [address], [place] [address] Jun, [facility] [address] [id number] [address] [place] [address], [place] [address] Jun, [facility] [address] [id number] [address] [place] [address], [place] [address] May, [facility] [address] [id number] [address] [place] [address], [place] [address] May, [facility] [address] [id number] [address] [place] [address], [place] [address] May, [facility] [address] [id number] [address] [place] [address], [place] [address] Apr, [facility] [address] [id number] [address] [place] [address] Apr, [facility] [address] [id number] [address] [place] [address] Mar, [facility] [address] [id number] [address] [place] [address] Mar, [facility] [address] [id number] [address] [place] [address], [place] [address] Jan, [facility] [address] [id number] [address] [place] [address] Jan, [facility] [address] [id number] [address] [place] [address] Jan, [facility] [address] [id number] [address] [place] [address] Jan, [facility] [address] [id number] [address] [place] [address], [place] [address] Jan, [facility] [address] [id number] [address] [place] [address], [place] [address] December, [facility] [address] [id number] [address] [place] [address], [place] [address] December, [facility] [address] [id number] [address] [place] [address], [place] [address] Nov, [facility] [address] [id number] [address] [place] [address], [place] [address] Nov, [facility] [address] [id number] [address] [place] [address], [place] [address] Oct, [facility] [address] [id number] [address] [place] [address], [place] [address] Oct, [facility] [address] [id number] [address] [place] [address], [place] [address] Oct, [facility] [address] [id number] [address] [place] [address], [place] [address] Oct, [facility] [address] [id number] [address] [place] [address], [place] [address] Sep, [facility] [address] [id number] [address] [place] [address], [place] [address] Sep, [facility] [address] [id number] [address] [place] [address], [place] [address] Sep, [facility] [address] [id number] [address] [place] [address], [place] [address] Sep, [facility] [address] [id number] [address] [place] [address], [place] [address] Sep, [facility] [address] [id number] [address] [place] [address], [place] [address] Sep, [facility] [address] [id number] [address] [place] [address], [place] [address] 15 Sep, 2011 [facility] [address] [id number] [address] [place] [address], [place] [address] 15 Sep, 2011 [facility] [address] [id number] [address] [place] [address], [place] [address] 10 Sep, 2011 [facility] [address] [id number] [address] [place] [address], [place] [address] 27 Aug, 2011 [facility] [address] [id number] [address] [place] [address], [place] [address] Aug, [facility] [address] [id number] [address] [place] [address], [place] [address] 30 Jul, 2011 [facility] [address] [id number] [address] [place] [address], [place] [address] Jul, [facility] [address] [id number] [address] [place] [address], [place] [address] Jul, [facility] [address] [id number] [address] [place] [address], [place] [address] Jul, [facility] [address] [id number] [address] [place] [address], [place] [address] Jul, [facility] [address] [id number] [address] [place] [address], [place] [address] Jun, [facility] [address] [id number] [address] [place] [address], [place] [address] Jun, [facility] [address] [id number] [address] [place] [address], [place] [address] Jun, [facility] [address] [id number] [address] [place] [address], [place] [address] Jun, [facility] [address] [id number] [address] [place] [address], [place] [address] Jun, [facility] [address] [id number] [address] [place] [address] May, [facility] [place] [address] [id number] [address] [place] [id number] 31 Jul, 2010 [facility] [place] [address] [id number] [address] [place] [address] Jul, [facility] [place] [address] [id number] [address] [place] [address] Jul, [facility] [place] [address] [facility] [id number] [address] [place] [address] Jul, [facility] [place] [address] [facility] [id number] [address] [place] [address] Jun, [facility] [place] [address] [facility] [id number] [address] [place] [address] Jun, [facility] [place] [address] [facility] [id number] [address] [place] [address] May, IMMUNIZATIONS No Known Immunizations SOCIAL HISTORY Never Assessed REASON FOR VISIT PLAN OF CARE VITAL SIGNS MEDICATIONS Unknown Medications RESULTS No Results PROCEDURES No Known procedures INSTRUCTIONS MEDICATIONS ADMINISTERED No Known Medications MEDICAL (GENERAL) HISTORY Type Description Date Medical History diabetic nephropathy Medical History diabetes mellitus Medical History liver transplant Medical History osteoporosis Medical History arthritis Medical History Hypertension Surgical History amputation, toes december 2016 Surgical History liver transplant Surgical History cholecystectomy Surgical History tonsillectomy Surgical History appendectomy Surgical History Toes of right foot and 4th toe of left Surgical History 4 stints 05/21 Hospitalization History liver transplant Hospitalization History Osteomylitis, Abcess to right foot,- [facility] 12/06/16 Hospitalization History right foot toes amputated 09/2017 Hospitalization History [facility] 3 heart attacks in 2 weeks.
--- OUTSIDE RECORDS SUMMARY | 2020-01-03 21:18 | XMS REPORT ---
Author Author Stevie Rivera Doctor Organization [facility] Address Unknown Phone Unavailable Care Team Providers Care Exercise Planner Name Role Phone Migration, Doctor Unavailable Unavailable PROBLEMS Type Condition ICD9-CM Code [id number] Code Onset Dates Condition S tatus SNOMED Code Problem Depressive disorder, not elsewhere classified F32. 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 Active 894684327 Problem Status post amputation of toe of right foot Z89.42 1 Active 465637062 Problem Peripheral vascular disease I73.9 Ac tive 422987880 Problem Chronic hepatitis C without hepatic coma B18.2 Active 607716630 Problem BMI 32.0-32.9,adult Z68.32 Active 523305843 Problem Venous insufficiency I87.2 Active 89954847 Problem Type 2 diabetes mellitus with other specified complication E11.69 Active [id number] Problem Long-term insulin use Z79.4 Active 345862315 Problem Osteomyelitis M86.9 Active 879860 00 Problem Acquired absence of right great toe Z89.411 Active 530842520 Problem 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 Active 645209010 Problem 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 Active 1641 778965123 Problem 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 Active 1641 [id number] ALLERGIES No Information ENCOUNTERS Encounter Location Date Diagnosis [facility] [address] [id number] [address] [place] [address] Jan, [facility] [address] [facility] [id number] [address] [place] [phone] Jun, [facility] [address] [facility] [id number] [address] [place] [address] 04 Jun, 2019 Type 2 diabetes mellitus wit h other specified complication E11.69 ; Interstitial pulmonary fibrosis J84.10 and Venous insufficiency I87.2 [facility] [address] [id number] [address] [place] [address] 11 May, 2019 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 ; Type 2 diabetes mellitus with other specified complication E11.69 and Long-term insulin use Z79.4 [facility] [address] [facility] [id number] [address] [place] [address] 07 May, 2019 [facility] [address] [facility] [id number] [address] [place] [address] 02 May, 2019 [facility] [address] [facility] [id number] [address] [place] [address] 27 Apr, 2019 Type 2 diabetes mellitus wit h other specified complication E11.69 ; Coronary artery disease involving marshall coronary artery of marshall heart without angina pectoris I25.10 and Encounter for immunization Z23 [facility] [address] [facility] [id number] [address] [place] [address] Apr, [facility] [address] [facility] [id number] [address] [place] [address] Apr, [facility] [address] [facility] [id number] [address] [place] [address] December, Chronic hepatitis C without hepatic coma B18.2 and Type 2 diabetes mellitus with other specified complication E11.69 [facility] [address] [facility] [id number] [address] [place] [address] Nov, Abnormal PSA R97.20 [facility] [address] [facility] [id number] [address] [place] [address] Nov, [facility] [address] [facility] [id number] [address] [place] [address] Nov, Encounter for Medicare annua l wellness exam Z00.00 ; Type 2 diabetes mellitus with other specified complication E11.69 ; Peripheral vascular disease I73.9 ; Encounter for immunization Z23 ; Liver transplant recipient Z94.4 ; Acquired absence of right great toe Z89.411 ; 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 and Routine adult health maintenance Z00.00 [facility] [address] [place] [id number] [address] [place] [address] Nov, Medicare annual wellness vis it, initial Z00.00 ; Type 2 diabetes mellitus with other specified complication E11.69 ; Depressive disorder, not elsewhere classified F32.9 ; Peripheral vascular disease I73.9 ; Encounter for immunization Z23 ; Liver transplant recipient Z94.4 ; Status post amputation of toe of right foot Z89.421 and BMI 32.0-32.9,adult Z68.32 [facility] [address] [place] [id number] [address] [place] [address] 13 Oct, 2017 [facility] [address] [place] [id number] [address] [place] [address] Oct, [facility] [address] [place] [id number] [address] [place] [address] Oct, Type 2 diabetes mellitus wit h other specified complication E11.69 ; Chronic hepatitis C without hepatic coma B18.2 and Depressive disorder, not elsewhere classified F32.9 [facility] [address] [place] [id number] [address] [place] [address] Sep, [facility] [address] [place] [id number] [address] [place] [address] Sep, [facility] [address] [place] [id number] [address] [place] [address] Sep, [facility] [address] [place] [id number] [place] [id number] Sep, Diabetes E11.9 [facility] [address] [place] [id number] [address] [place] [address] Sep, [facility] [address] [place] [id number] Sep Peripheral vascular disease I73.9 ; 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 ; Status post amputation of toe of right foot Z89.421 ; Type 2 diabetes mellitus with other specified complication E11.69 and Liver transplant recipient Z94.4 [facility] [address] [id number] 16 Sep, 2017 [facility] [address] [place] [id number] 13 Sep Status post amputation of toe of right foot Z89.421 ; 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 ; Osteomyelitis M86.9 ; Diabetes E11.9 ; Liver transplant recipient Z94.4 and History of drug abuse Z87.898 [facility] [address] [id number] [id number] 06 Sep, 2017 [place] [address] [place] [id number] [address] [place] [address] Jan, [place] [id number] [place] [address] Jan, [place] [address] [place] [id number] [address] [place] [address] December, Diabetes E11.9 ; Back pain M 54.9 and Anemia due to other cause D64.89 [place] [address] [place] [id number] [address] [place] [address] 16 Dec, 2016 Osteomyelitis, unspecified M 86.9 [place] [address] [place] [id number] [address] [place] [address] 15 Dec, 2016 [place] [address] [place] [id number] [address] [place] [address] December, Diabetes E11.9 [place] [address] [facility] [id number] [address] [place] [address] 18 Feb, 2016 Seborrheic keratoses L82.1 a nd Abscess of neck L02.11 [place] [address] [facility] [id number] [address] [place] [address] 15 Feb, 2016 Sebaceous cyst L72.3 [facility] [address] [id number] [address] [place] [address] 13 Feb, 2016 Abscess, neck L02.11 [facility] [address] [id number] [address] [place] [address] 18 Oct, 2015 Diabetes E11.9 [facility] [address] [id number] [address] [place] [address] Oct, Back pain M54.9 [facility] [address] [id number] [address] [place] [address] Sep, Back pain M54.9 [facility] [address] [id number] [address] [place] [address] Sep, Back pain M54.9 [facility] [address] [id number] [address] [place] [address] Aug, Back pain M54.9 [facility] [address] [id number] [address] [place] [address] Aug, Diabetes E11.9 and Liver tra nsplant recipient Z94.4 [facility] [address] [id number] [address] [place] [address] Aug, Back pain M54.9 [facility] [address] [id number] [address] [place] [address] Jul, [facility] [address] [id number] [address] [place] [address] Jul, [facility] [address] [id number] [address] [place] [address] Jul, [facility] [address] [id number] [address] [place] [address] Jun, Depressive disorder, not els ewhere classified F32.9 [facility] [address] [id number] [address] [place] [address] Jun, Diabetes E11.9 ; Depressive disorder, not elsewhere classified F32.9 and Back pain M54.9 [facility] [address] [id number] [address] [place] [address], [place] [address] Jun, [facility] [address] [id number] [address] [place] [address] Jun, [facility] [address] [id number] [address] [place] [address] May, [facility] [address] [id number] [address] [place] [address] May, [facility] [address] [id number] [address] [place] [address] Apr, [facility] [address] [id number] [address] [place] [address] Apr, [facility] [address] [id number] [address] [place] [address] Mar, [facility] [address] [id number] [address] [place] [address] Mar, [facility] [address] [id number] [address] [place] [id number] Mar, Dental examination V72.2 [facility] [address] [id number] [address] [place] [address] Jan, [facility] [address] [id number] [address] [place] [address] Jan, [facility] [address] [id number] [address] [place] [phone] Jan, [facility] [address] [id number] [address] [place] [address] Jan, [facility] [address] [id number] [address] [place] [address] Jan, [facility] [address] [id number] [address] [place] [address] December, [facility] [address] [id number] [address] [place] [address] December, [facility] [address] [id number] [address] [place] [address] December, Diabetes mellitus type 2, un controlled 250.02 and Osteomyelitis of ankle or foot 730.27 [facility] [address] [id number] [address] [place] [address] December, [facility] [address] [id number] [address] [place] [address] Nov, [facility] [address] [id number] [address] [place] [address] Nov, [facility] [address] [id number] [address] [place] [address] Oct, [facility] [address] [id number] [address] [place] [address] Oct, [facility] [address] [id number] [address] [place] [address] Oct, [facility] [address] [id number] [address] [place] [address] Oct, [facility] [address] [id number] [address] [place] [address] Sep, [facility] [address] [id number] [address] [place] [address] Sep, [facility] [address] [id number] [address] [place] [address] Sep, [facility] [address] [id number] [address] [place] [address] Sep, [facility] [address] [id number] [address] [place] [address] Aug, [facility] [address] [id number] [address] [place] [address] Aug, [facility] [address] [id number] [address] [place] [address], [place] [address] Aug, [facility] [address] [id number] [address] [place] [address], [place] [address] Aug, [facility] [address] [id number] [address] [place] [address], [place] [address] Aug, [facility] [address] [id number] [address] [place] [address], [place] [address] Aug, [facility] [address] [id number] [address] [place] [address], [place] [address] Jul, [facility] [address] [id number] [address] [place] [address], [place] [address] Jul, [facility] [address] [id number] [address] [place] [address], [place] [address] Jul, [facility] [address] [id number] [address] [place] [address], [place] [address] Jul, [facility] [address] [id number] [address] [place] [address], [place] [address] Jul, [facility] [address] [id number] [address] [place] [address], [place] [address] Jul, [facility] [address] [id number] [address] [place] [address], [place] [address] Jun, [facility] [address] [id number] [address] [place] [address], [place] [address] Jun, [facility] [address] [id number] [address] [place] [address], [place] [address] Jun, [facility] [address] [id number] [address] [place] [address], [place] [address] Jun, [facility] [address] [id number] [address] [place] [address], [place] [address] May, [facility] [address] [id number] [address] [place] [address], [place] [address] May, [facility] [address] [id number] [address] [place] [address], [place] [address] May, [facility] [address] [id number] [address] [place] [address], [place] [address] May, [facility] [address] [id number] [address] [place] [address], [place] [address] May, [facility] [address] [id number] [address] [place] [address], [place] [address] May, [facility] [address] [id number] [address] [place] [address], [place] [address] Apr, [facility] [address] [id number] [address] [place] [address], [place] [address] Apr, [facility] [address] [id number] [address] [place] [address], [place] [address] Apr, [facility] [address] [id number] [address] [place] [address], [place] [address] Apr, [facility] [address] [id number] [address] [place] [address], [place] [address] Mar, [facility] [address] [id number] [address] [place] [address], [place] [address] Mar, [facility] [address] [id number] [address] [place] [address], [place] [address] Mar, [facility] [address] [id number] [address] [place] [address], [place] [address] Mar, [facility] [address] [id number] [address] [place] [address], [place] [address] Jan, [facility] [address] [id number] [address] [place] [address], [place] [address] Jan, [facility] [address] [id number] [address] [place] [address], [place] [address] Jan, [facility] [address] [id number] [address] [place] [address], [place] [address] Jan, [facility] [address] [id number] [address] [place] [address], [place] [address] Jan, [facility] [address] [id number] [address] [place] [address], [place] [address] Jan, [facility] [address] [id number] [address] [place] [address], [place] [address] Jan, [facility] [address] [id number] [address] [place] [address], [place] [address] Jan, [facility] [address] [id number] [address] [place] [address], [place] [address] Jan, [facility] [address] [id number] [address] [place] [address], [place] [address] Jan, [facility] [address] [id number] [address] [place] [address], [place] [address] Jan, [facility] [address] [id number] [address] [place] [address], [place] [address] Jan, [facility] [address] [id number] [address] [place] [address], [place] [address] December, [facility] [address] [id number] [address] [place] [address], [place] [address] December, [facility] [address] [id number] [address] [place] [address], [place] [address] December, [facility] [address] [id number] [address] [place] [address], [place] [address] December, [facility] [address] [id number] [address] [place] [address], [place] [address] December, [facility] [address] [id number] [address] [place] [address], [place] [address] December, [facility] [address] [id number] [address] [place] [address], [place] [address] Nov, [facility] [address] [id number] [facility] [place] [address] Nov, [facility] [address] [id number] [address] [place] [address], [place] [address] Nov, [facility] [address] [id number] [facility] [place] [address] Nov, [facility] [address] [id number] [address] [place] [address], [place] [address] Nov, [facility] [address] [id number] [address] [place] [address], [place] [address] Nov, [facility] [address] [id number] [address] [place] [address], [place] [address] Oct, [facility] [address] [id number] [address] [place] [address], [place] [address] Oct, [facility] [address] [id number] [address] [place] [address], [place] [address] Oct, [facility] [address] [id number] [address] [place] [address], [place] [address] Oct, [facility] [address] [id number] [address] [place] [address], [place] [address] Sep, [facility] [address] [id number] [address] [place] [address], [place] [address] Sep, [facility] [address] [id number] [address] [place] [address], [place] [address] Sep, [facility] [address] [id number] [address] [place] [address], [place] [address] Sep, [facility] [address] [id number] [address] [place] [address], [place] [address] Sep, [facility] [address] [id number] [address] [place] [address], [place] [address] Sep, [facility] [address] [id number] [address] [place] [address], [place] [address] 13 Sep, 2013 [facility] [address] [id number] [address] [place] [address], [place] [address] Sep, [facility] [address] [id number] [address] [place] [address], [place] [address] Sep, [facility] [address] [id number] [address] [place] [address], [place] [address] Sep, [facility] [address] [id number] [address] [place] [address], [place] [address] Aug, [facility] [address] [id number] [address] [place] [address], [place] [address] Aug, [facility] [address] [id number] [address] [place] [address], [place] [address] Aug, [facility] [address] [id number] [address] [place] [address], [place] [address] Aug, [facility] [address] [id number] [address] [place] [address], [place] [address] Aug, [facility] [address] [id number] [address] [place] [address], [place] [address] Aug, [facility] [address] [id number] [address] [place] [address], [place] [address] Jul, [facility] [address] [id number] [address] [place] [address], [place] [address] Jul, [facility] [address] [id number] [address] [place] [address], [place] [address] Jul, [facility] [address] [id number] [address] [place] [address], [place] [address] Jul, [facility] [address] [id number] [address] [place] [address], [place] [address] Jul, [facility] [address] [id number] [address] [place] [address], [place] [address] Jul, [facility] [address] [id number] [address] [place] [address], [place] [address] Jul, [facility] [address] [id number] [address] [place] [address], [place] [address] Jul, [facility] [address] [id number] [address] [place] [address], [place] [address] Jul, [facility] [address] [id number] [address] [place] [address], [place] [address] Jul, [facility] [address] [id number] [address] [place] [address], [place] [address] Jun, [facility] [address] [id number] [address] [place] [address], [place] [address] Jun, [facility] [address] [id number] [address] [place] [address], [place] [address] Jun, [facility] [address] [id number] [address] [place] [address], [place] [address] Jun, [facility] [address] [id number] [address] [place] [address], [place] [address] May, [facility] [address] [id number] [address] [place] [id number] May, [facility] [address] [id number] [address] [place] [address] Apr, [facility] [address] [id number] [address] [place] [address] [id number] Apr, [facility] [address] [id number] [address] [place] [address], [place] [address] Apr, [facility] [address] [id number] [address] [place] [address], [place] [address] Mar, [facility] [address] [id number] [address] [place] [address] Mar, [facility] [address] [id number] [address] [place] [address] 26 Jan, 2013 [facility] [address] [id number] [address] [place] [address], [place] [address] Jan, [facility] [address] [id number] [address] [place] [address], [place] [address] 28 Jan, 2013 [facility] [address] [id number] [address] [place] [address], [place] [address] 25 Jan, 2013 [facility] [address] [id number] [address] [place] [address], [place] [address] 15 Jan, 2013 [facility] [address] [id number] [address] [place] [address], [place] [address] Jan, [facility] [address] [id number] [address] [place] [address], [place] [address] Jan, [facility] [address] [id number] [address] [place] [address], [place] [address] December, [facility] [address] [id number] [address] [place] [address], [place] [address] December, [facility] [address] [id number] [address] [place] [address], [place] [address] December, [facility] [address] [id number] [address] [place] [address], [place] [address] Nov, [facility] [address] [id number] [address] [place] [address], [place] [address] Nov, [facility] [address] [id number] [address] [place] [address], [place] [address] Oct, [facility] [address] [id number] [address] [place] [address], [place] [address] Oct, [facility] [address] [id number] [address] [place] [address], [place] [address] Sep, [facility] [address] [id number] [address] [place] [address], [place] [address] Sep, [facility] [address] [id number] [address] [place] [address], [place] [address] Aug, [facility] [address] [id number] [address] [place] [address], [place] [address] Aug, [facility] [address] [id number] [address] [place] [address], [place] [address] Jul, [facility] [address] [id number] [address] [place] [address], [place] [address] Jul, [facility] [address] [id number] [address] [place] [address], [place] [address] Jul, [facility] [address] [id number] [address] [place] [address], [place] [address] Jul, [facility] [address] [id number] [address] [place] [address], [place] [address] Jul, [facility] [address] [id number] [address] [place] [address], [place] [address] Jul, [facility] [address] [id number] [address] [place] [address], [place] [address] Jul, [facility] [address] [id number] [address] [place] [address], [place] [address] Jul, [facility] [address] [id number] [address] [place] [address], [place] [address] Jun, [facility] [address] [id number] [address] [place] [address], [place] [address] Jun, [facility] [address] [id number] [address] [place] [address], [place] [address] Jun, [facility] [address] [id number] [address] [place] [address], [place] [address] Jun, [facility] [address] [id number] [address] [place] [address], [place] [address] Jun, [facility] [address] [id number] [address] [place] [address], [place] [address] Jun, [facility] [address] [id number] [address] [place] [address], [place] [address] Jun, [facility] [address] [id number] [address] [place] [address], [place] [address] Jun, [facility] [address] [id number] [address] [place] [address], [place] [address] Jun, [facility] [address] [id number] [address] [place] [address], [place] [address] Jun, [facility] [address] [id number] [address] [place] [address], [place] [address] May, [facility] [address] [id number] [address] [place] [address], [place] [address] May, [facility] [address] [id number] [address] [place] [address], [place] [address] May, [facility] [address] [id number] [address] [place] [address], [place] [address] Apr, [facility] [address] [id number] [address] [place] [address], [place] [address] Apr, [facility] [address] [id number] [address] [place] [address], [place] [address] 24 Mar, 2012 [facility] [address] [id number] [address] [place] [address], [place] [address] Mar, [facility] [address] [id number] [address] [place] [address], [place] [address] 17 Feb, 2012 [facility] [address] [id number] [address] [place] [address], [place] [address] Jan, [facility] [address] [id number] [address] [place] [address], [place] [address] 29 Jan, 2012 [facility] [address] [id number] [address] [place] [address], [place] [address] 14 Jan, 2012 [facility] [address] [id number] [address] [place] [address], [place] [address] Jan, [facility] [address] [id number] [address] [place] [address], [place] [address] December, [facility] [address] [id number] [address] [place] [address], [place] [address] December, [facility] [address] [id number] [address] [place] [address], [place] [address] Nov, [facility] [address] [id number] [address] [place] [address], [place] [address] Nov, [facility] [address] [id number] [address] [place] [address], [place] [address] Oct, [facility] [address] [id number] [address] [place] [address], [place] [address] Oct, [facility] [address] [id number] [address] [place] [address], [place] [address] Oct, [facility] [address] [id number] [address] [place] [address], [place] [address] Oct, [facility] [address] [id number] [address] [place] [address], [place] [address] Sep, [facility] [address] [id number] [address] [place] [address], [place] [address] Sep, [facility] [address] [id number] [address] [place] [address], [place] [address] Sep, [facility] [address] [id number] [address] [place] [address], [place] [address] Sep, [facility] [address] [id number] [address] [place] [address], [place] [address] Sep, [facility] [address] [id number] [address] [place] [address], [place] [address] Sep, [facility] [address] [id number] [address] [place] [address] [address] 15 Sep, 2011 [facility] [address] [id number] [address] [place] [address], [place] [address] 15 Sep, 2011 [facility] [address] [id number] [address] [place] [address], [place] [address] 10 Sep, 2011 [facility] [address] [id number] [address] [place] [address], [place] [address] Aug, [facility] [address] [id number] [address] [place] [address], [place] [address] Aug, [facility] [address] [id number] [address] [place] [address], [place] [address] 30 Jul, 2011 [facility] [address] [id number] [address] [place] [address], [place] [address] Jul, [facility] [address] [id number] [address] [place] [address], [place] [address] Jul, [facility] [address] [id number] [address] [place] [address], [place] [address] Jul, [facility] [address] [id number] [address] [place] [address], [place] [address] Jul, [facility] [address] [id number] [address] [place] [address], [place] [address] Jun, [facility] [address] [id number] [address] [place] [address], [place] [address] Jun, [facility] [address] [id number] [address] [place] [address], [place] [address] Jun, [facility] [address] [id number] [address] [place] [address], [place] [address] Jun, [facility] [address] [id number] [address] [place] [address], [place] [address] Jun, [facility] [address] [id number] [address] [place] [address], [place] [address] May, [facility] [address] [id number] [address] [place] [address] 31 Jul, 2010 [facility] [address] [facility] [id number] [address] [place] [address] Jul, [facility] [address] [facility] [id number] [address] [place] [address] Jul, [facility] [address] [facility] [id number] [address] [place] [address] Jul, [facility] [address] [facility] [id number] [address] [place] [address] Jun, [facility] [address] [facility] [id number] [address] [place] [address] Jun, [facility] [address] [facility] [id number] [address] [place] [address] May, IMMUNIZATIONS No Known Immunizations SOCIAL HISTORY [...]
--- OUTSIDE RECORDS SUMMARY | 2020-01-03 21:18 | XMS REPORT ---
Author Author Stevie QUIÑONEZ Organization [facility] Address [address] [place] [address] Care Team Providers Care Ball Winder Name Role Phone SUSAN QUÑIONEZ Unavailable PROBLEMS Type Condition ICD9-CM Code ZNY25-HT Code Onset Dates Condition S tatus SNOMED Code Problem Depressive disorder, not elsewhere classified F32. 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 Active 058132768 Problem Status post amputation of toe of right foot Z89.42 1 Active 308096531 Problem Peripheral vascular disease I73.9 Ac tive 737171916 Problem Chronic hepatitis C without hepatic coma B18.2 Active 554535181 Problem BMI 32.0-32.9,adult Z68.32 Active 679432014 Problem Venous insufficiency I87.2 Active 33996152 Problem Type 2 diabetes mellitus with other specified complication E11.69 Active [id number] Problem Long-term insulin use Z79.4 Active 007612271 Problem Osteomyelitis M86.9 Active 344774 00 Problem Acquired absence of right great toe Z89.411 Active 386740896 Problem 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 Active 462745723 Problem Coronary artery disease invo lving [place] coronary artery of [place] heart without angina pectoris I25.10 Active 1641 114014104 Problem Coronary artery disease invo lving [place] coronary artery of [place] heart without angina pectoris I25.10 Active 1641 [id number] ALLERGIES No Information ENCOUNTERS Encounter Location Date Diagnosis [facility] [address] [facility] [id number] [address] [place] [address] Jan, [facility] [address] [facility] [id number] [address] [place] [address] Jun, [facility] [address] [id number] [address] [place] [address] Jun, Type 2 diabetes mellitus wit h other specified complication E11.69 ; Interstitial pulmonary fibrosis J84.10 and Venous insufficiency I87.2 [facility] [address] [id number] [address] [place] [address] May, Coronary artery disease invo lving [place] coronary artery of [place] heart without angina pectoris I25.10 ; Type 2 diabetes mellitus with other specified complication E11.69 and Long-term insulin use Z79.4 [facility] [address] [id number] [address] [place] [address] 07 May, 2019 [facility] [address] [id number] [address] [place] [address] May, [facility] [address] [id number] [address] [place] [address] Apr, Type 2 diabetes mellitus wit h other specified complication E11.69 ; Coronary artery disease involving [place] coronary artery of [place] heart without angina pectoris I25.10 and Encounter for immunization Z23 [facility] [address] [id number] [address] [place] [address] Apr, [facility] [address] [id number] [address] [place] [address] Apr, [facility] [address] [id number] [address] [place] [address] December, Chronic hepatitis C without hepatic coma B18.2 and Type 2 diabetes mellitus with other specified complication E11.69 [facility] [address] [id number] [address] [place] [address] Nov, Abnormal PSA R97.20 [facility] [address] [id number] [address] [place] [address] Nov, [facility] [address] [id number] [address] [place] [address] 18 Apr, 2019 Encounter for Medicare annua l wellness exam Z00.00 ; Type 2 diabetes mellitus with other specified complication E11.69 ; Peripheral vascular disease I73.9 ; Encounter for immunization Z23 ; Liver transplant recipient Z94.4 ; Acquired absence of right great toe Z89.411 ; 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 and Routine adult health maintenance Z00.00 [facility] [address] [place] [id number] [address] [place] [address] Nov, Medicare annual wellness vis it, initial Z00.00 ; Type 2 diabetes mellitus with other specified complication E11.69 ; Depressive disorder, not elsewhere classified F32.9 ; Peripheral vascular disease I73.9 ; Encounter for immunization Z23 ; Liver transplant recipient Z94.4 ; Status post amputation of toe of right foot Z89.421 and BMI 32.0-32.9,adult Z68.32 [facility] [id number] [place] [address] 13 Oct, 2017 [facility] [address] [place] [id number] [address] [place] [address] Oct, [facility] [address] [place] [id number] [address] [place] [address] Oct, Type 2 diabetes mellitus wit h other specified complication E11.69 ; Chronic hepatitis C without hepatic coma B18.2 and Depressive disorder, not elsewhere classified F32.9 [facility] [address] [place] [id number] [address] [place] [address] Sep, [facility] [address] [place] [id number] [address] [place] [address] Sep, [facility] [address] [place] [id number] [address] [place] [address] Sep, [facility] [address] [place] [id number] [place] [id number] Sep, Diabetes E11.9 [facility] [address] [place] [id number] [address] [place] [address] Sep, [email or web address] [address] [place] [id number] Sep Peripheral vascular disease I73.9 ; 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 ; Status post amputation of toe of right foot Z89.421 ; Type 2 diabetes mellitus with other specified complication E11.69 and Liver transplant recipient Z94.4 [facility] [address] [id number] [place] [id number] 16 Sep, 2017 [email or web address] [address] [place] [id number] Sep Status post amputation of toe of right foot Z89.421 ; 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 ; Osteomyelitis M86.9 ; Diabetes E11.9 ; Liver transplant recipient Z94.4 and History of drug abuse Z87.898 [facility] [address] [id number] [place] [id number] Sep, [place] [address] [place] [id number] [address] [place] [address] Jan, [place] [address] [facility] [id number] [address] [place] [address] Jan, [place] [address] [place] [id number] [address] [place] [address] December, Diabetes E11.9 ; Back pain M 54.9 and Anemia due to other cause D64.89 [place] [address] [facility] [id number] [address] [place] [address] December, Osteomyelitis, unspecified M 86.9 [facility] [address] [facility] [id number] [address] [place] [address] December, [place] [address] [facility] [id number] [address] [place] [address] December, Diabetes E11.9 [facility] [address] [facility] [id number] [address] [place] [address] Jan, Seborrheic keratoses L82.1 a nd Abscess of neck L02.11 [place] [address] [place] [id number] [address] [place] [address] 15 Feb, 2016 Sebaceous cyst L72.3 [facility] [address] [facility] [id number] [address] [place] [address] 13 Feb, 2016 Abscess, neck L02.11 [facility] [address] [facility] [id number] [address] [place] [address] 18 Oct, 2015 Diabetes E11.9 [facility] [address] [facility] [id number] [address] [place] [address] 09 Oct, 2015 Back pain M54.9 [facility] [address] [facility] [id number] [address] [place] [address] Sep, Back pain M54.9 [facility] [address] [facility] [id number] [address] [place] [address] 04 Sep, 2015 Back pain M54.9 [facility] [address] [facility] [id number] [address] [place] [address] Aug, Back pain M54.9 [facility] [address] [facility] [id number] [address] [place] [address] Aug, Diabetes E11.9 and Liver tra nsplant recipient Z94.4 [facility] [address] [facility] [id number] [address] [place] [address] Aug, Back pain M54.9 [facility] [address] [facility] [id number] [address] [place] [address] Jul, [facility] [address] [facility] [id number] [address] [place] [address] 16 Jul, 2015 [facility] [address] [facility] [id number] [address] [place] [address] Jul, [facility] [address] [facility] [id number] [address] [place] [address] Jun, Depressive disorder, not els ewhere classified F32.9 [facility] [address] [facility] [id number] [address] [place] [address] Jun, Diabetes E11.9 ; Depressive disorder, not elsewhere classified F32.9 and Back pain M54.9 [facility] [address] [id number] [address] [place] [address] Jun, [facility] [address] [id number] [address] [place] [address] Jun, [facility] [address] [id number] [address] [place] [address] May, [facility] [address] [id number] [address] [place] [address] May, [facility] [address] [id number] [address] [place] [address] Apr, [facility] [address] [id number] [address] [place] [address] Apr, [facility] [address] [id number] [address] [place] [address] Mar, [facility] [address] [id number] [address] [place] [address] Mar, [facility] [address] [id number] [address] [place] [id number] Mar, Dental examination V72.2 [facility] [address] [id number] [address] [place] [address] Jan, [facility] [address] [id number] [address] [place] [address] Jan, [facility] [address] [id number] [address] [place] [address] Jan, [facility] [address] [id number] [address] [place] [address] Jan, [facility] [address] [id number] [address] [place] [address] Jan, [facility] [address] [id number] [address] [place] [address] December, [facility] [address] [id number] [address] [place] [address] December, [facility] [address] [id number] [address] [place] [address] December, Diabetes mellitus type 2, un controlled 250.02 and Osteomyelitis of ankle or foot 730.27 [facility] [address] [id number] [address] [place] [address] December, [facility] [address] [id number] [address] [place] [address] Nov, [facility] [address] [id number] [address] [place] [address] Nov, [facility] [address] [id number] [address] [place] [address] Oct, [facility] [address] [id number] [address] [place] [address] Oct, [facility] [address] [id number] [address] [place] [address] Oct, [facility] [address] [id number] [address] [place] [address] Oct, [facility] [address] [id number] [address] [place] [address] Sep, [facility] [address] [id number] [address] [place] [address] Sep, [facility] [address] [id number] [address] [place] [address] Sep, [facility] [address] [id number] [address] [place] [address] Sep, [facility] [address] [id number] [address] [place] [address] Aug, [facility] [address] [id number] [address] [place] [address], [place] [address] Aug, [facility] [address] [id number] [address] [place] [address], [place] [address] Aug, [facility] [address] [id number] [address] [place] [address], [place] [address] Aug, [facility] [address] [id number] [address] [place] [address], [place] [address] Aug, [facility] [address] [id number] [address] [place] [address], [place] [address] Aug, [facility] [address] [id number] [address] [place] [address], [place] [address] Jul, [facility] [address] [id number] [address] [place] [address], [place] [address] Jul, [facility] [address] [id number] [address] [place] [address], [place] [address] Jul, [facility] [address] [id number] [address] [place] [address], [place] [address] Jul, [facility] [address] [id number] [address] [place] [address], [place] [address] Jul, [facility] [address] [id number] [address] [place] [address], [place] [address] Jul, [facility] [address] [id number] [address] [place] [address], [place] [address] Jun, [facility] [address] [id number] [address] [place] [address], [place] [address] Jun, [facility] [address] [id number] [address] [place] [address], [place] [address] Jun, [facility] [address] [id number] [address] [place] [address], [place] [address] Jun, [facility] [address] [id number] [address] [place] [address], [place] [address] May, [facility] [address] [id number] [address] [place] [address], [place] [address] May, [facility] [address] [id number] [address] [place] [address], [place] [address] May, [facility] [address] [id number] [address] [place] [address], [place] [address] May, [facility] [address] [id number] [address] [place] [address], [place] [address] May, [facility] [address] [id number] [address] [place] [address], [place] [address] May, [facility] [address] [id number] [address] [place] [address], [place] [address] Apr, [facility] [address] [id number] [address] [place] [address], [place] [address] Apr, [facility] [address] [id number] [address] [place] [address], [place] [address] Apr, [facility] [address] [id number] [address] [place] [address], [place] [address] Apr, [facility] [address] [id number] [address] [place] [address], [place] [address] Mar, [facility] [address] [id number] [address] [place] [address], [place] [address] Mar, [facility] [address] [id number] [address] [place] [address], [place] [address] Mar, [facility] [address] [id number] [address] [place] [address], [place] [address] Mar, [facility] [address] [id number] [address] [place] [address], [place] [address] Jan, [facility] [address] [id number] [address] [place] [address], [place] [address] Jan, [facility] [address] [id number] [address] [place] [address], [place] [address] Jan, [facility] [address] [id number] [address] [place] [address], [place] [address] Jan, [facility] [address] [id number] [address] [place] [address], [place] [address] Jan, [facility] [address] [id number] [address] [place] [address], [place] [address] Jan, [facility] [address] [id number] [address] [place] [address], [place] [address] Jan, [facility] [address] [id number] [address] [place] [address], [place] [address] Jan, [facility] [address] [id number] [address] [place] [address], [place] [address] Jan, [facility] [address] [id number] [address] [place] [address], [place] [address] Jan, [facility] [address] [id number] [address] [place] [address], [place] [address] Jan, [facility] [address] [id number] [address] [place] [address], [place] [address] Jan, [facility] [address] [id number] [address] [place] [address], [place] [address] December, [facility] [address] [id number] [address] [place] [address], [place] [address] December, [facility] [address] [id number] [address] [place] [address], [place] [address] December, [facility] [address] [id number] [address] [place] [address], [place] [address] December, [facility] [address] [id number] [address] [place] [address], [place] [address] December, [facility] [address] [id number] [address] [place] [address], [place] [address] December, [facility] [address] [id number] [facility] [address] Nov, [facility] [address] [id number] [facility] [address] Nov, [facility] [address] [id number] [facility] [place] [address] Nov, [facility] [address] [id number] [address] [place] [address], [place] [address] Nov, [facility] [address] [id number] [address] [place] [address], [place] [address] Nov, [facility] [address] [id number] [address] [place] [address], [place] [address] Nov, [facility] [address] [id number] [address] [place] [address], [place] [address] Oct, [facility] [address] [id number] [address] [place] [address], [place] [address] Oct, [facility] [address] [id number] [address] [place] [address], [place] [address] Oct, [facility] [address] [id number] [address] [place] [address], [place] [address] Oct, [facility] [address] [id number] [address] [place] [address], [place] [address] Sep, [facility] [address] [id number] [address] [place] [address], [place] [address] Sep, [facility] [address] [id number] [address] [place] [address], [place] [address] Sep, [facility] [address] [id number] [address] [place] [address], [place] [address] Sep, [facility] [address] [id number] [address] [place] [address], [place] [address] Sep, [facility] [address] [id number] [address] [place] [address], [place] [address] Sep, [facility] [address] [id number] [address] [place] [address], [place] [address] Sep, [facility] [address] [id number] [address] [place] [address], [place] [address] Sep, [facility] [address] [id number] [address] [place] [address], [place] [address] Sep, [facility] [address] [id number] [address] [place] [address], [place] [address] Sep, [facility] [address] [id number] [address] [place] [address], [place] [address] Aug, [facility] [address] [id number] [address] [place] [address], [place] [address] Aug, [facility] [address] [id number] [address] [place] [address], [place] [address] Aug, [facility] [address] [id number] [address] [place] [address], [place] [address] Aug, [facility] [address] [id number] [address] [place] [address], [place] [address] Aug, [facility] [address] [id number] [address] [place] [address], [place] [id number] Aug, [facility] [address] [id number] [address] [place] [address], [place] [id number] Jul, [facility] [address] [id number] [address] [place] [address], [place] [id number] Jul, [facility] [address] [id number] [address] [place] [address], [place] [id number] Jul, [facility] [address] [id number] [address] [place] [address], [place] [id number] Jul, [facility] [address] [id number] [address] [place] [address], [place] [id number] Jul, [facility] [address] [id number] [address] [place] [address], [place] [id number] Jul, [facility] [address] [id number] [address] [place] [address], [place] [id number] Jul, [facility] [address] [id number] [address] [place] [address], [place] [id number] Jul, [facility] [address] [id number] [address] [place] [address], [place] [id number] Jul, [facility] [address] [id number] [address] [place] [address], [place] [id number] Jul, [facility] [address] [id number] [address] [place] [address], [place] [id number] Jun, [facility] [address] [id number] [address] [place] [address], [place] [id number] Jun, [facility] [address] [id number] [address] [place] [address], [place] [id number] Jun, [facility] [address] [id number] [address] [place] [address], [place] [id number] Jun, [facility] [address] [id number] [address] [place] [address], [place] [id number] May, [facility] [address] [id number] [address] [place] [address], [place] [id number] May, [facility] [address] [id number] [address] [place] [address], [place] [id number] Apr, [facility] [address] [id number] [address] [place] [address], [place] [id number] Apr, [facility] [address] [id number] [address] [place] [address], [place] [id number] Apr, [facility] [address] [id number] [address] [place] [address], [place] [id number] Mar, [facility] [address] [id number] [address] [place] [address], [place] [id number] Mar, [facility] [address] [id number] [address] [place] [address], [place] [id number] Jan, [facility] [address] [id number] [address] [place] [address], [place] [id number] Jan, [facility] [address] [id number] [address] [place] [address], [place] [id number] Jan, [facility] [facility] [address] [id number] [address] [place] [address], [place] [address] Jan, [facility] [address] [id number] [address] [place] [address], [place] [address] Jan, [facility] [address] [id number] [address] [place] [address], [place] [address] Jan, [facility] [address] [id number] [address] [place] [address], [place] [address] Jan, [facility] [address] [id number] [address] [place] [address], [place] [address] December, [facility] [address] [id number] [address] [place] [address], [place] [id number] December, [facility] [address] [id number] [address] [place] [address], [place] [address] December, [facility] [address] [id number] [address] [place] [address], [place] [id number] Nov, [facility] [address] [id number] [address] [place] [address], [place] [address] Nov, [facility] [address] [id number] [address] [place] [address], [place] [address] Oct, [facility] [address] [id number] [address] [place] [address], [place] [id number] Oct, [facility] [address] [id number] [address] [place] [address], [place] [id number] Sep, [facility] [address] [id number] [address] [place] [address], [place] [id number] 08 Sep, 2012 [facility] [address] [id number] [address] [place] [address], [place] [address] Aug, [facility] [address] [id number] [address] [place] [address], [place] [address] Aug, [facility] [address] [id number] [address] [place] [address], [place] [address] Jul, [facility] [address] [id number] [address] [place] [address], [place] [id number] Jul, [facility] [address] [id number] [address] [place] [address], [place] [id number] Jul, [facility] [address] [id number] [address] [place] [address], [place] [address] Jul, [facility] [address] [id number] [address] [place] [address], [place] [address] Jul, [facility] [address] [id number] [address] [place] [address], [place] [address] Jul, [facility] [address] [id number] [address] [place] [address], [place] [id number] Jul, [facility] [address] [id number] [address] [place] [address], [place] [address] Jul, [facility] [address] [id number] [address] [place] [address], [place] [id number] Jun, [facility] [address] [id number] [address] [place] [address], [place] [address] Jun, [facility] [address] [id number] [address] [place] [address], [place] [address] Jun, [facility] [address] [id number] [address] [place] [address], [place] [address] Jun, [facility] [address] [id number] [address] [place] [address], [place] [address] Jun, [facility] [address] [id number] [address] [place] [address], [place] [address] Jun, [facility] [address] [id number] [address] [place] [address], [place] [address] Jun, [facility] [address] [id number] [address] [place] [address], [place] [address] Jun, [facility] [address] [id number] [address] [place] [address], [place] [address] Jun, [facility] [address] [id number] [address] [place] [address], [place] [address] Jun, [facility] [address] [id number] [address] [place] [address], [place] [address] May, [facility] [address] [id number] [address] [place] [address], [place] [address] May, [facility] [address] [id number] [address] [place] [address], [place] [address] May, [facility] [address] [id number] [address] [place] [address], [place] [address] Apr, [facility] [address] [id number] [address] [place] [id number] Apr, [facility] [address] [id number] [address] [place] [address] Mar, [facility] [address] [id number] [address] [place] [id number] Mar, [facility] [address] [id number] [address] [place] [address], [place] [address] Jan, [facility] [address] [id number] [address] [place] [address] Jan, [facility] [address] [id number] [address] [place] [id number] Jan, [facility] [address] [id number] [address] [place] [address] Jan, [facility] [address] [id number] [address] [place] [address], [place] [address] Jan, [facility] [address] [id number] [address] [place] [address], [place] [address] December, [facility] [address] [id number] [address] [place] [address], [place] [address] December, [facility] [address] [id number] [address] [place] [address], [place] [address] Nov, [facility] [address] [id number] [address] [place] [address], [place] [address] Nov, [facility] [address] [id number] [address] [place] [address], [place] [address] Oct, [facility] [address] [id number] [address] [place] [address], [place] [address] Oct, [facility] [address] [id number] [address] [place] [address], [place] [address] Oct, [facility] [address] [id number] [address] [place] [address], [place] [address] Oct, [facility] [address] [id number] [address] [place] [address], [place] [address] Sep, [facility] [address] [id number] [address] [place] [address], [place] [address] Sep, [facility] [address] [id number] [address] [place] [address], [place] [address] Sep, [facility] [address] [id number] [address] [place] [address], [place] [address] Sep, [facility] [address] [id number] [address] [place] [address], [place] [address] Sep, [facility] [address] [id number] [address] [place] [address], [place] [address] Sep, [facility] [address] [id number] [address] [place] [address], [place] [id number] 15 Sep, 2011 [facility] [address] [id number] [address] [place] [address], [place] [id number] 15 Sep, 2011 [facility] [address] [id number] [address] [place] [address], [place] [id number] 10 Sep, 2011 [facility] [address] [id number] [address] [place] [address], [place] [id number] 27 Aug, 2011 [facility] [address] [id number] [address] [place] [address], [place] [address] Aug, [facility] [address] [id number] [address] [place] [address], [place] [address] 30 Jul, 2011 [facility] [address] [id number] [address] [place] [address], [place] [address] Jul, [facility] [address] [id number] [address] [place] [address], [place] [id number] Jul, [facility] [address] [id number] [address] [place] [address], [place] [address] Jul, [facility] [address] [id number] [address] [place] [address], [place] [address] Jul, [facility] [address] [id number] [address] [place] [address], [place] [address] Jun, [facility] [address] [id number] [address] [place] [address], [place] [address] Jun, [facility] [address] [id number] [address] [place] [address], [place] [address] Jun, [facility] [address] [id number] [address] [place] [address], [place] [address] Jun, [facility] [address] [id number] [address] [place] [address], [place] [id number] Jun, [facility] [address] [id number] [address] [place] [address] May, [facility] [address] [id number] [address] [place] [id number] 31 Jul, 2010 [facility] [address] [id number] [address] [place] [id number] Jul, [facility] [address] [id number] [address] [place] [id number] Jul, [facility] [address] [id number] [address] [place] [id number] Jul, [facility] [address] [id number] [address] [place] [id number] Jun, [facility] [address] [id number] [address] [place] [id number] Jun, [facility] [address] [facility] [id number] [address] [place] [id number] May, IMMUNIZATIONS No Known Immunizations SOCIAL HISTORY Never Assessed REASON FOR VISIT PLAN OF CARE VITAL SIGNS Height 72 in 2013-01-25 Weight 258 lbs 2013-01-25 Temperature 96.6 degrees Fahrenheit 2013-01-25 Heart Rate 64 bpm 2013-01-25 Respiratory Rate 18 2013-01-25 Blood pressure systolic 140 mmHg 2013-01-25 Blood pressure diastolic 78 mmHg 2013-01-25 MEDICATIONS Unknown Medications RESULTS No Results PROCEDURES [...]
[2020-01-03 21:19] LABS: BASOPHILS % (AUTO) 0 % (0-10); EOSINOPHILS # (AUTO) 0.2 10^3/uL (0.0-0.3); EOSINOPHILS % (AUTO) 2 % (0-10); HEMATOCRIT 44 % (40-54); HEMOGLOBIN 14.9 G/DL (13.3-17.7); LYMPHOCYTES # (AUTO) 4.3 X 10^3 (1.0-4.0); LYMPHOCYTES % (AUTO) 45 % (12-44); MEAN CORPUSCULAR HEMOGLOBIN 29 PG (25-34); MEAN CORPUSCULAR HGB CONC 34 G/DL (32-36); MEAN CORPUSCULAR VOLUME 86 FL (80-99); MONOCYTES # (AUTO) 0.9 X 10^3 (0.0-1.0); MONOCYTES % (AUTO) 9 % (0-12); NEUTROPHILS # (AUTO) 4.1 X 10^3 (1.8-7.8); NEUTROPHILS % (AUTO) 43 % (42-75); PLATELET COUNT 331 10^3/uL (130-400); WHITE BLOOD COUNT 9.5 10^3/uL (4.3-11.0)
--- OUTSIDE RECORDS SUMMARY | 2020-01-03 21:19 | XMS REPORT ---
Author Author Stevie QUIÑONEZ Organization [facility] Address [address] [place] [address] Care Team Providers Care Entertainment Agent Name Role Phone SUSAN QUIÑONEZ Unavailable PROBLEMS Type Condition ICD9-CM Code [id number] Code Onset Dates Condition S tatus SNOMED Code Problem Depressive disorder, not elsewhere classified F32. 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 Active 625412944 Problem Status post amputation of toe of right foot Z89.42 1 Active 019932759 Problem Peripheral vascular disease I73.9 Ac tive 730520093 Problem Chronic hepatitis C without hepatic coma B18.2 Active 439866875 Problem BMI 32.0-32.9,adult Z68.32 Active 479281385 Problem Venous insufficiency I87.2 Active 57494805 Problem Type 2 diabetes mellitus with other specified complication E11.69 Active [id number] Problem Long-term insulin use Z79.4 Active 664298021 Problem Osteomyelitis M86.9 Active 248876 00 Problem Acquired absence of right great toe Z89.411 Active 654179084 Problem 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 Active 303240468 Problem Coronary artery disease invo lving [place] coronary artery of [place] heart without angina pectoris I25.10 Active 1641 886179641 Problem Coronary artery disease invo lving [place] coronary artery of [place] heart without angina pectoris I25.10 Active 1641 [id number] ALLERGIES No Information ENCOUNTERS Encounter Location Date Diagnosis [facility] [address] [facility] [id number] [address] [place] [id number] Jan, [facility] [address] [facility] [id number] [address] [place] [address] Jun, [facility] [address] [id number] [address] [place] [id number] Jun, Type 2 diabetes mellitus wit h other specified complication E11.69 ; Interstitial pulmonary fibrosis J84.10 and Venous insufficiency I87.2 [facility] [address] [id number] [address] [place] [address] May, Coronary artery disease invo lving [place] coronary artery of [place] heart without angina pectoris I25.10 ; Type 2 diabetes mellitus with other specified complication E11.69 and Long-term insulin use Z79.4 [facility] [address] [id number] [address] [place] [id number] 07 May, 2019 [facility] [address] [id number] [address] [place] [phone] May, [facility] [address] [id number] [address] [place] [id number] Apr, Type 2 diabetes mellitus wit h other specified complication E11.69 ; Coronary artery disease involving [place] coronary artery of [place] heart without angina pectoris I25.10 and Encounter for immunization Z23 [facility] [address] [id number] [address] [place] [address] Apr, [facility] [address] [id number] [address] [place] [address] Apr, [facility] [address] [id number] [address] [place] [address] December, Chronic hepatitis C without hepatic coma B18.2 and Type 2 diabetes mellitus with other specified complication E11.69 [facility] [address] [id number] [address] [place] [address] Nov, Abnormal PSA R97.20 [facility] [address] [id number] [address] [place] [id number] Nov, [facility] [address] [id number] [address] [place] [address] 18 Apr, 2019 Encounter for Medicare annua l wellness exam Z00.00 ; Type 2 diabetes mellitus with other specified complication E11.69 ; Peripheral vascular disease I73.9 ; Encounter for immunization Z23 ; Liver transplant recipient Z94.4 ; Acquired absence of right great toe Z89.411 ; 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 and Routine adult health maintenance Z00.00 [facility] [address] [place] [id number] [address] [place] [phone] Nov, Medicare annual wellness vis it, initial Z00.00 ; Type 2 diabetes mellitus with other specified complication E11.69 ; Depressive disorder, not elsewhere classified F32.9 ; Peripheral vascular disease I73.9 ; Encounter for immunization Z23 ; Liver transplant recipient Z94.4 ; Status post amputation of toe of right foot Z89.421 and BMI 32.0-32.9,adult Z68.32 [facility] [id number] [place] [address] 13 Oct, 2017 [facility] [address] [place] [id number] [address] [place] [address] Oct, [facility] [address] [place] [id number] [address] [place] [id number] Oct, Type 2 diabetes mellitus wit h other specified complication E11.69 ; Chronic hepatitis C without hepatic coma B18.2 and Depressive disorder, not elsewhere classified F32.9 [facility] [address] [place] [id number] [address] [place] [address] Sep, [facility] [address] [place] [id number] [address] [place] [phone] Sep, [facility] [address] [place] [id number] [address] [place] [address] Sep, [facility] [address] [place] [id number] [place] [id number] Sep, Diabetes E11.9 [facility] [address] [place] [id number] [address] [place] [address] Sep, [facility] [address] [place] [id number] Sep Peripheral vascular disease I73.9 ; 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 ; Status post amputation of toe of right foot Z89.421 ; Type 2 diabetes mellitus with other specified complication E11.69 and Liver transplant recipient Z94.4 [facility] [address] [id number] [place] [id number] 16 Sep, 2017 [facility] [address] [place] [id number] Sep Status post amputation of toe of right foot Z89.421 ; 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 ; Osteomyelitis M86.9 ; Diabetes E11.9 ; Liver transplant recipient Z94.4 and History of drug abuse Z87.898 [facility] [address] [id number] [place] [id number] Sep, [place] [address] [place] [id number] [address] [place] [address] Jan, [place] [address] [facility] [id number] [address] [place] [address] Jan, [place] [address] [place] [id number] [address] [place] [address] December, Diabetes E11.9 ; Back pain M 54.9 and Anemia due to other cause D64.89 [place] [address] [facility] [id number] [address] [place] [address] December, Osteomyelitis, unspecified M 86.9 [facility] [address] [facility] [id number] [address] [place] [address] December, [place] [address] [facility] [id number] [address] [place] [address] December, Diabetes E11.9 [facility] [address] [facility] [id number] [address] [place] [phone] Jan, Seborrheic keratoses L82.1 a nd Abscess of neck L02.11 [place] [address] [place] [id number] [address] [place] [id number] 15 Feb, 2016 Sebaceous cyst L72.3 [facility] [address] [facility] [id number] [address] [place] [id number] 13 Feb, 2016 Abscess, neck L02.11 [facility] [address] [facility] [id number] [address] [place] [id number] 18 Oct, 2015 Diabetes E11.9 [facility] [address] [facility] [id number] [address] [place] [id number] 09 Oct, 2015 Back pain M54.9 [facility] [address] [facility] [id number] [address] [place] [address] Sep, Back pain M54.9 [facility] [address] [facility] [id number] [address] [place] [id number] 04 Sep, 2015 Back pain M54.9 [facility] [address] [facility] [id number] [address] [place] [address] Aug, Back pain M54.9 [facility] [address] [facility] [id number] [address] [place] [address] Aug, Diabetes E11.9 and Liver tra nsplant recipient Z94.4 [facility] [address] [facility] [id number] [address] [place] [phone] Aug, Back pain M54.9 [facility] [address] [facility] [id number] [address] [place] [phone] Jul, [facility] [address] [facility] [id number] [address] [place] [id number] 16 Jul, 2015 [facility] [address] [facility] [id number] [address] [place] [phone] Jul, [facility] [address] [facility] [id number] [address] [place] [address] Jun, Depressive disorder, not els ewhere classified F32.9 [facility] [address] [facility] [id number] [address] [place] [address] Jun, Diabetes E11.9 ; Depressive disorder, not elsewhere classified F32.9 and Back pain M54.9 [facility] [address] [id number] [address] [place] [address] Jun, [facility] [address] [id number] [address] [place] [phone] Jun, [facility] [address] [id number] [address] [place] [phone] May, [facility] [address] [id number] [address] [place] [phone] May, [facility] [address] [id number] [address] [place] [phone] Apr, [facility] [address] [id number] [address] [place] [phone] Apr, [facility] [address] [id number] [address] [place] [phone] Mar, [facility] [address] [id number] [address] [place] [id number] Mar, [facility] [address] [id number] [address] [place] [id number] Mar, Dental examination V72.2 [facility] [address] [id number] [address] [place] [phone] Jan, [facility] [address] [id number] [address] [place] [phone] Jan, [facility] [address] [id number] [address] [place] [phone] Jan, [facility] [address] [id number] [address] [place] [phone] Jan, [facility] [address] [id number] [address] [place] [phone] Jan, [facility] [address] [id number] [address] [place] [phone] December, [facility] [address] [id number] [address] [place] [id number] December, [facility] [address] [id number] [address] [place] [id number] December, Diabetes mellitus type 2, un controlled 250.02 and Osteomyelitis of ankle or foot 730.27 [facility] [address] [id number] [address] [place] [id number] December, [facility] [address] [id number] [address] [place] [phone] Nov, [facility] [address] [id number] [address] [place] [id number] Nov, [facility] [place] [address] [id number] [address] [place] [id number] Oct, [facility] [address] [id number] [address] [place] [phone] Oct, [facility] [address] [id number] [address] [place] [id number] Oct, [facility] [address] [id number] [address] [place] [id number] Oct, [facility] [address] [id number] [address] [place] [phone] Sep, [facility] [address] [id number] [address] [place] [phone] Sep, [facility] [address] [id number] [address] [place] [phone] Sep, [facility] [address] [id number] [address] [place] [phone] Sep, [facility] [address] [id number] [address] [place] [phone] Aug, [facility] [address] [id number] [address] [place] [address], [place] [address] Aug, [facility] [address] [id number] [address] [place] [address], [place] [address] Aug, [facility] [address] [id number] [address] [place] [address], [place] [address] Aug, [facility] [address] [id number] [address] [place] [address], [place] [address] Aug, [facility] [address] [id number] [address] [place] [address], [place] [address] Aug, [facility] [address] [id number] [address] [place] [address], [place] [address] Jul, [facility] [address] [id number] [address] [place] [address], [place] [address] Jul, [facility] [address] [id number] [address] [place] [address], [place] [address] Jul, [facility] [address] [id number] [address] [place] [address], [place] [address] Jul, [facility] [address] [id number] [address] [place] [address], [place] [address] Jul, [facility] [address] [id number] [address] [place] [address], [place] [address] Jul, [facility] [address] [id number] [address] [place] [address], [place] [address] Jun, [facility] [address] [id number] [address] [place] [address], [place] [address] Jun, [facility] [address] [id number] [address] [place] [address], [place] [address] Jun, [facility] [address] [id number] [address] [place] [address], [place] [address] Jun, [facility] [address] [id number] [address] [place] [address], [place] [address] May, [facility] [address] [id number] [address] [place] [address], [place] [address] May, [facility] [address] [id number] [address] [place] [address], [place] [address] May, [facility] [address] [id number] [address] [place] [address], [place] [address] May, [facility] [address] [id number] [address] [place] [address], [place] [address] May, [facility] [address] [id number] [address] [place] [address], [place] [address] May, [facility] [address] [id number] [address] [place] [address], [place] [address] Apr, [facility] [address] [id number] [address] [place] [address], [place] [address] Apr, [facility] [address] [id number] [address] [place] [address], [place] [address] Apr, [facility] [address] [id number] [address] [place] [address], [place] [address] Apr, [facility] [address] [id number] [address] [place] [address], [place] [address] Mar, [facility] [address] [id number] [address] [place] [address], [place] [address] Mar, [facility] [address] [id number] [address] [place] [address], [place] [address] Mar, [facility] [address] [id number] [address] [place] [address], [place] [address] Mar, [facility] [address] [id number] [address] [place] [address], [place] [address] Jan, [facility] [address] [id number] [address] [place] [address], [place] [address] Jan, [facility] [address] [id number] [address] [place] [address], [place] [address] Jan, [facility] [address] [id number] [address] [place] [address], [place] [address] Jan, [facility] [address] [id number] [address] [place] [address], [place] [address] Jan, [facility] [address] [id number] [address] [place] [address], [place] [address] Jan, [facility] [address] [id number] [address] [place] [address], [place] [address] Jan, [facility] [address] [id number] [address] [place] [address], [place] [address] Jan, [facility] [address] [id number] [address] [place] [address], [place] [address] Jan, [facility] [address] [id number] [address] [place] [address], [place] [address] Jan, [facility] [address] [id number] [address] [place] [address], [place] [address] Jan, [facility] [address] [id number] [address] [place] [address], [place] [address] Jan, [facility] [address] [id number] [address] [place] [address], [place] [address] December, [facility] [address] [id number] [address] [place] [address], [place] [address] December, [facility] [address] [id number] [address] [place] [address], [place] [address] December, [facility] [address] [id number] [address] [place] [address], [place] [address] December, [facility] [address] [id number] [address] [place] [address], [place] [address] December, [facility] [address] [id number] [address] [place] [address], [place] [address] December, [facility] [address] [id number] [facility] [place] [address] Nov, [facility] [address] [id number] [facility] [place] [address] Nov, [facility] [address] [id number] [facility] [place] [address] Nov, [facility] [address] [id number] [address] [place] [address], [place] [address] Nov, [facility] [address] [id number] [address] [place] [address], [place] [address] Nov, [facility] [address] [id number] [address] [place] [address], [place] [address] Nov, [facility] [address] [id number] [address] [place] [address], [place] [address] Oct, [facility] [address] [id number] [address] [place] [address], [place] [address] Oct, [facility] [address] [id number] [address] [place] [address], [place] [address] Oct, [facility] [address] [id number] [address] [place] [address], [place] [address] Oct, [facility] [address] [id number] [address] [place] [address], [place] [address] Sep, [facility] [address] [id number] [address] [place] [address], [place] [address] Sep, [facility] [address] [id number] [address] [place] [address], [place] [address] Sep, [facility] [address] [id number] [address] [place] [address], [place] [address] Sep, [facility] [address] [id number] [address] [place] [address], [place] [address] Sep, [facility] [address] [id number] [address] [place] [address], [place] [address] Sep, [facility] [address] [id number] [address] [place] [address], [place] [address] Sep, [facility] [address] [id number] [address] [place] [address], [place] [address] Sep, [facility] [address] [id number] [address] [place] [address], [place] [address] Sep, [facility] [address] [id number] [address] [place] [address], [place] [address] Sep, [facility] [address] [id number] [address] [place] [address], [place] [address] Aug, [facility] [address] [id number] [address] [place] [address], [place] [address] Aug, [facility] [address] [id number] [address] [place] [address], [place] [address] Aug, [facility] [address] [id number] [address] [place] [address], [place] [address] Aug, [facility] [address] [id number] [address] [place] [address], [place] [address] Aug, [facility] [address] [id number] [address] [place] [address], [place] [address] Aug, [facility] [address] [id number] [address] [place] [address], [place] [address] Jul, [facility] [address] [id number] [address] [place] [address], [place] [address] Jul, [facility] [address] [id number] [address] [place] [address], [place] [address] Jul, [facility] [address] [id number] [address] [place] [address], [place] [address] Jul, [facility] [address] [id number] [address] [place] [address], [place] [address] Jul, [facility] [address] [id number] [address] [place] [address], [place] [address] Jul, [facility] [address] [id number] [address] [place] [address], [place] [address] Jul, [facility] [address] [id number] [address] [place] [address], [place] [address] Jul, [facility] [address] [id number] [address] [place] [address], [place] [address] Jul, [facility] [address] [id number] [address] [place] [address], [place] [address] Jul, [facility] [address] [id number] [address] [place] [address], [place] [address] Jun, [facility] [address] [id number] [address] [place] [address], [place] [address] Jun, [facility] [address] [id number] [address] [place] [address], [place] [address] Jun, [facility] [address] [id number] [address] [place] [address], [place] [address] Jun, [facility] [address] [id number] [address] [place] [address], [place] [address] May, [facility] [address] [id number] [address] [place] [address], [place] [address] May, [facility] [address] [id number] [address] [place] [address], [place] [address] Apr, [facility] [address] [id number] [address] [place] [address], [place] [address] Apr, [facility] [address] [id number] [address] [place] [address], [place] [address] Apr[facility] [address] [id number] [address] [place] [address], [place] [address] Mar, [facility] [address] [id number] [address] [place] [address], [place] [address] Mar, [facility] [address] [id number] [address] [place] [address], [place] [address] Jan, [facility] [address] [id number] [address] [place] [address], [place] [address] Jan, [facility] [address] [id number] [address] [place] [address], [place] [address] Jan, [facility] [address] [id number] [address] [place] [address], [place] [address] Jan, [facility] [address] [id number] [address] [place] [address], [place] [address] Jan, [facility] [address] [id number] [address] [place] [address], [place] [address] Jan, [facility] [address] [id number] [address] [place] [address], [place] [address] Jan, [facility] [address] [id number] [address] [place] [address], [place] [address] December, [facility] [address] [id number] [address] [place] [address], [place] [address] December, [facility] [address] [id number] [address] [place] [address], [place] [address] December, [facility] [address] [id number] [address] [place] [address], [place] [address] Nov, [facility] [address] [id number] [address] [place] [address], [place] [address] Nov, [facility] [address] [id number] [address] [place] [address], [place] [address] Oct, [facility] [address] [id number] [address] [place] [address], [place] [address] Oct, [facility] [address] [id number] [address] [place] [address], [place] [address] Sep, [facility] [address] [id number] [address] [place] [address], [place] [address] 08 Sep, 2012 [facility] [address] [id number] [address] [place] [address], [place] [address] Aug, [facility] [address] [id number] [address] [place] [address], [place] [address] Aug, [facility] [address] [id number] [address] [place] [address], [place] [address] Jul, [facility] [address] [id number] [address] [place] [address], [place] [address] Jul, [facility] [address] [id number] [address] [place] [address], [place] [address] Jul, [facility] [address] [id number] [address] [place] [address], [place] [address] Jul, [facility] [address] [id number] [address] [place] [address], [place] [address] Jul, [facility] [address] [id number] [address] [place] [address], [place] [address] Jul, [facility] [address] [id number] [address] [place] [address], [place] [address] Jul, [facility] [address] [id number] [address] [place] [address], [place] [address] Jul, [facility] [address] [id number] [address] [place] [address], [place] [address] Jun, [facility] [address] [id number] [address] [place] [address], [place] [address] Jun, [facility] [address] [id number] [address] [place] [address], [place] [address] Jun, [facility] [address] [id number] [address] [place] [address], [place] [address] Jun, [facility] [address] [id number] [address] [place] [address], [place] [address] Jun, [facility] [address] [id number] [address] [place] [address], [place] [address] Jun, [facility] [address] [id number] [address] [place] [address], [place] [address] Jun, [facility] [address] [id number] [address] [place] [address], [place] [address] Jun, [facility] [address] [id number] [address] [place] [address], [place] [address] Jun, [facility] [address] [id number] [address] [place] [address], [place] [address] Jun, [facility] [address] [id number] [address] [place] [address], [place] [address] May, [facility] [address] [id number] [address] [place] [address], [place] [address] May, [facility] [address] [id number] [address] [place] [address], [place] [address] May, [facility] [address] [id number] [address] [place] [address], [place] [address] Apr, [facility] [address] [id number] [address] [place] [address] Apr, [facility] [address] [id number] [address] [place] [address] Mar, [facility] [address] [id number] [address] [place] [address] Mar, [facility] [address] [id number] [address] [place] [address], [place] [address] Jan, [facility] [address] [id number] [address] [place] [address] Jan, [facility] [address] [id number] [address] [place] [address] Jan, [facility] [address] [id number] [address] [place] [address] Jan, [facility] [address] [id number] [address] [place] [address], [place] [address] Jan, [facility] [address] [id number] [address] [place] [address], [place] [address] December, [facility] [address] [id number] [address] [place] [address], [place] [address] December, [facility] [address] [id number] [address] [place] [address], [place] [address] Nov, [facility] [address] [id number] [address] [place] [address], [place] [address] Nov, [facility] [address] [id number] [address] [place] [address], [place] [address] Oct, [facility] [address] [id number] [address] [place] [address], [place] [address] Oct, [facility] [address] [id number] [address] [place] [address], [place] [address] Oct, [facility] [address] [id number] [address] [place] [address], [place] [address] Oct, [facility] [address] [id number] [address] [place] [address], [place] [address] Sep, [facility] [address] [id number] [address] [place] [address], [place] [address] Sep, [facility] [address] [id number] [address] [place] [address], [place] [address] Sep, [facility] [address] [id number] [address] [place] [address], [place] [address] Sep, [facility] [address] [id number] [address] [place] [address], [place] [address] Sep, [facility] [address] [id number] [address] [place] [address], [place] [address] Sep, [facility] [address] [id number] [address] [place] [address], [place] [address] 15 Sep, 2011 [facility] [address] [id number] [address] [place] [address], [place] [address] 15 Sep, 2011 [facility] [address] [id number] [address] [place] [address], [place] [address] 10 Sep, 2011 [facility] [address] [id number] [address] [place] [address], [place] [address] 27 Aug, 2011 [facility] [address] [id number] [address] [place] [address], [place] [address] Aug, [facility] [address] [id number] [address] [place] [address], [place] [address] 30 Jul, 2011 [facility] [address] [id number] [address] [place] [address], [place] [address] Jul, [facility] [address] [id number] [address] [place] [address], [place] [address] Jul, [facility] [address] [id number] [address] [place] [address], [place] [address] Jul, [facility] [address] [id number] [address] [place] [address], [place] [address] Jul, [facility] [address] [id number] [address] [place] [address], [place] [address] Jun, [facility] [address] [id number] [address] [place] [address], [place] [address] Jun, [facility] [address] [id number] [address] [place] [address], [place] [address] Jun, [facility] [address] [id number] [address] [place] [address], [place] [address] Jun, [facility] [address] [id number] [address] [place] [address], [place] [address] Jun, [facility] [address] [id number] [address] [place] [address] May, [facility] [address] [id number] [address] [place] [address] 31 Jul, 2010 [facility] [address] [id number] [address] [place] [address] Jul, [facility] [address] [id number] [address] [place] [address] Jul, [facility] [address] [facility] [id number] [address] [place] [address] Jul, [facility] [address] [facility] [id number] [address] [place] [address] Jun, [facility] [address] [facility] [id number] [address] [place] [address] Jun, [facility] [address] [facility] [id number] [address] [place] [address] May, IMMUNIZATIONS No Known Immunizations SOCIAL HISTORY [...]
--- OUTSIDE RECORDS SUMMARY | 2020-01-03 21:19 | XMS REPORT ---
Author Author Stevie QUIÑONEZ Organization [facility] [place] Address [address] [place] [address] Care Team Providers Care Brim Molder Name Role Phone SUSAN QUIÑONEZ Unavailable PROBLEMS Type Condition ICD9-CM Code NLR80-CX Code Onset Dates Condition S tatus SNOMED Code Problem Depressive disorder, not elsewhere classified F32. 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 Active 244708398 Problem Status post amputation of toe of right foot Z89.42 1 Active 468279450 Problem Peripheral vascular disease I73.9 Ac tive 882546366 Problem Chronic hepatitis C without hepatic coma B18.2 Active 194185430 Problem BMI 32.0-32.9,adult Z68.32 Active 174983260 Problem Venous insufficiency I87.2 Active 15124628 Problem Type 2 diabetes mellitus with other specified complication E11.69 Active [id number] Problem Long-term insulin use Z79.4 Active 349186093 Problem Osteomyelitis M86.9 Active 402139 00 Problem Acquired absence of right great toe Z89.411 Active 026377931 Problem 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 Active 510098471 Problem Coronary artery disease invo lving [place] coronary artery of [place] heart without angina pectoris I25.10 Active 1641 248598536 Problem Coronary artery disease invo lving [place] coronary artery of [place] heart without angina pectoris I25.10 Active 1641 [id number] ALLERGIES No Information ENCOUNTERS Encounter Location Date Diagnosis [facility] [place] [address] [facility] [id number] [address] [place] [id number] 05 Jun, 2019 [facility] [place] [address] [facility] [id number] [address] [place] [address] Jun, Type 2 diabetes mellitus wit h other specified complication E11.69 ; Interstitial pulmonary fibrosis J84.10 and Venous insufficiency I87.2 [facility] [place] [address] [id number] [address] [place] [address] 11 May, 2019 Coronary artery disease invo lving [place] coronary artery of [place] heart without angina pectoris I25.10 ; Type 2 diabetes mellitus with other specified complication E11.69 and Long-term insulin use Z79.4 [facility] [place] [address] [id number] [address] [place] [address] 07 May, 2019 [facility] [place] [address] [id number] [address] [place] [id number] 02 May, 2019 [facility] [place] [address] [facility] [id number] [address] [place] [id number] 27 Apr, 2019 Type 2 diabetes mellitus wit h other specified complication E11.69 ; Coronary artery disease involving [place] coronary artery of [place] heart without angina pectoris I25.10 and Encounter for immunization Z23 [facility] [place] [address] [id number] [address] [place] [address] Apr, [facility] [place] [address] [facility] [id number] [address] [place] [phone] Apr, [facility] [place] [address] [facility] [id number] [address] [place] [address] December, Chronic hepatitis C without hepatic coma B18.2 and Type 2 diabetes mellitus with other specified complication E11.69 [facility] [place] [address] [facility] [id number] [address] [place] [address] Nov, Abnormal PSA R97.20 [facility] [place] [address] [id number] [address] [place] [address] Nov, [facility] [place] [address] [facility] [id number] [address] [place] [address] Nov, Encounter for Medicare annua l wellness exam Z00.00 ; Type 2 diabetes mellitus with other specified complication E11.69 ; Peripheral vascular disease I73.9 ; Encounter for immunization Z23 ; Liver transplant recipient Z94.4 ; Acquired absence of right great toe Z89.411 ; 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 and Routine adult health maintenance Z00.00 [facility] [place] [address] [place] [id number] [address] [place] [address] Nov, Medicare annual wellness vis it, initial Z00.00 ; Type 2 diabetes mellitus with other specified complication E11.69 ; Depressive disorder, not elsewhere classified F32.9 ; Peripheral vascular disease I73.9 ; Encounter for immunization Z23 ; Liver transplant recipient Z94.4 ; Status post amputation of toe of right foot Z89.421 and BMI 32.0-32.9,adult Z68.32 [facility] [place] [address] [facility] [id number] [address] [place] [id number] 13 Oct, 2017 [facility] [place] [address] [place] [id number] [address] [place] [address] Oct, [facility] [place] [address] [place] [id number] [address] [place] [address] Oct, Type 2 diabetes mellitus wit h other specified complication E11.69 ; Chronic hepatitis C without hepatic coma B18.2 and Depressive disorder, not elsewhere classified F32.9 [facility] [place] [address] [facility] [id number] [address] [place] [address] Sep, [facility] [place] [address] [place] [id number] [address] [place] [address] Sep, [facility] [place] [address] [place] [id number] [address] [place] [address] Sep, [facility] [id number] [place] [address] [id number] Sep, Diabetes E11.9 [facility] [place] [address] [facility] [id number] [address] [place] [address] Sep, [facility] [address] [place] [id number] Sep Peripheral vascular disease I73.9 ; 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 ; Status post amputation of toe of right foot Z89.421 ; Type 2 diabetes mellitus with other specified complication E11.69 and Liver transplant recipient Z94.4 [facility] [id number] [id number] 16 Sep, 2017 [facility] [address] [place] [id number] 13 Sep Status post amputation of toe of right foot Z89.421 ; 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 ; Osteomyelitis M86.9 ; Diabetes E11.9 ; Liver transplant recipient Z94.4 and History of drug abuse Z87.898 [facility] [address] [id number] [id number] 06 Sep, 2017 [place] [address] [place] [id number] [address] [place] [address] Jan, [place] [id number] [place] [address] Jan, [place] [address] [place] [id number] [address] [place] [address] December, Diabetes E11.9 ; Back pain M 54.9 and Anemia due to other cause D64.89 [place] [address] [place] [id number] [address] [place] [address] December, Osteomyelitis, unspecified M 86.9 [place] [address] [place] [id number] [address] [place] [phone] December, [place] [address] [place] [id number] [address] [place] [address] December, Diabetes E11.9 [place] [address] [facility] [id number] [address] [place] [id number] 18 Feb, 2016 Seborrheic keratoses L82.1 a nd Abscess of neck L02.11 [place] [address] [facility] [id number] [address] [place] [address] 15 Feb, 2016 Sebaceous cyst L72.3 [facility] [address] [id number] [address] [place] [address] 13 Feb, 2016 Abscess, neck L02.11 [facility] [place] [address] [id number] [address] [place] [id number] 18 Oct, 2015 Diabetes E11.9 [facility] [place] [address] [facility] [id number] [address] [place] [address] Oct, Back pain M54.9 [facility] [place] [address] [id number] [address] [place] [phone] Sep, Back pain M54.9 [facility] [place] [address] [id number] [address] [place] [phone] Sep, Back pain M54.9 [facility] [place] [address] [facility] [id number] [address] [place] [phone] Aug, Back pain M54.9 [facility] [place] [address] [facility] [id number] [address] [place] [phone] Aug, Diabetes E11.9 and Liver tra nsplant recipient Z94.4 [facility] [place] [address] [facility] [id number] [address] [place] [address] Aug, Back pain M54.9 [facility] [place] [address] [facility] [id number] [address] [place] [id number] 31 Jul, 2015 [facility] [place] [address] [facility] [id number] [address] [place] [phone] Jul, [facility] [place] [address] [facility] [id number] [address] [place] [id number] Jul, [facility] [place] [address] [facility] [id number] [address] [place] [phone] Jun, Depressive disorder, not els ewhere classified F32.9 [facility] [place] [address] [id number] [address] [place] [id number] Jun, Diabetes E11.9 ; Depressive disorder, not elsewhere classified F32.9 and Back pain M54.9 [facility] [address] [id number] [address] [place] [phone] Jun, [facility] [address] [id number] [address] [place] [phone] Jun, [facility] [address] [id number] [address] [place] [phone] May, [facility] [address] [id number] [address] [place] [phone] May, [facility] [address] [id number] [address] [place] [id number] Apr, [facility] [address] [id number] [address] [place] [phone] Apr, [facility] [address] [id number] [address] [place] [phone] Mar, [facility] [address] [id number] [address] [place] [address] Mar, [facility] [address] [id number] [address] [place] [id number] Mar, Dental examination V72.2 [facility] [address] [id number] [address] [place] [address] Jan, [facility] [address] [id number] [address] [place] [id number] Jan, [facility] [address] [id number] [address] [place] [phone] Jan, [facility] [address] [id number] [address] [place] [phone] Jan, [facility] [address] [id number] [address] [place] [phone] Jan, [facility] [address] [id number] [address] [place] [phone] December, [facility] [address] [id number] [address] [place] [phone] December, [facility] [address] [id number] [address] [place] [address] December, Diabetes mellitus type 2, un controlled 250.02 and Osteomyelitis of ankle or foot 730.27 [facility] [address] [id number] [address] [place] [id number] December, [facility] [address] [id number] [address] [place] [phone] Nov, [facility] [address] [id number] [address] [place] [phone] Nov, [facility] [address] [id number] [address] [place] [phone] Oct, [facility] [address] [id number] [address] [place] [id number] Oct, [facility] [address] [id number] [address] [place] [phone] Oct, [facility] [address] [id number] [address] [place] [phone] Oct, [facility] [address] [id number] [address] [place] [phone] Sep, [facility] [address] [id number] [address] [place] [phone] Sep, [facility] [address] [id number] [address] [place] [id number] Sep, [facility] [address] [id number] [address] [place] [id number] Sep, [facility] [address] [id number] [address] [place] [phone] Aug, [facility] [address] [id number] [address] [place] [id number] Aug, [facility] [address] [id number] [address] [place] [address], [place] [address] Aug, [facility] [address] [id number] [address] [place] [address], [place] [address] Aug, [facility] [address] [id number] [address] [place] [address], [place] [address] Aug, [facility] [address] [id number] [address] [place] [address], [place] [address] Aug, [facility] [address] [id number] [address] [place] [address], [place] [address] Jul, [facility] [address] [id number] [address] [place] [address], [place] [address] Jul, [facility] [address] [id number] [address] [place] [address], [place] [address] Jul, [facility] [address] [id number] [address] [place] [address], [place] [address] Jul, [facility] [address] [id number] [address] [place] [address], [place] [address] Jul, [facility] [address] [id number] [address] [place] [address], [place] [address] Jul, [facility] [address] [id number] [address] [place] [address], [place] [address] Jun, [facility] [address] [id number] [address] [place] [address], [place] [address] Jun, [facility] [address] [id number] [address] [place] [address], [place] [address] Jun, [facility] [address] [id number] [address] [place] [address], [place] [address] Jun, [facility] [address] [id number] [address] [place] [address], [place] [address] May, [facility] [address] [id number] [address] [place] [address], [place] [address] May, [facility] [address] [id number] [address] [place] [address], [place] [address] May, [facility] [address] [id number] [address] [place] [address], [place] [address] May, [facility] [address] [id number] [address] [place] [address], [place] [address] May, [facility] [address] [id number] [address] [place] [address], [place] [address] May, [facility] [address] [id number] [address] [place] [address], [place] [address] Apr, [facility] [address] [id number] [address] [place] [address], [place] [address] Apr, [facility] [address] [id number] [address] [place] [address], [place] [address] Apr, [facility] [address] [id number] [address] [place] [address], [place] [address] Apr, [facility] [address] [id number] [address] [place] [address], [place] [address] Mar, [facility] [address] [id number] [address] [place] [address], [place] [address] Mar, [facility] [address] [id number] [address] [place] [address], [place] [address] Mar, [facility] [address] [id number] [address] [place] [address], [place] [address] Mar, [facility] [address] [id number] [address] [place] [address], [place] [address] Jan, [facility] [address] [id number] [address] [place] [address], [place] [address] Jan, [facility] [address] [id number] [address] [place] [address], [place] [address] Jan, [facility] [address] [id number] [address] [place] [address], [place] [address] Jan, [facility] [address] [id number] [address] [place] [address], [place] [address] Jan, [facility] [address] [id number] [address] [place] [address], [place] [address] Jan, [facility] [address] [id number] [address] [place] [address], [place] [address] Jan, [facility] [address] [id number] [address] [place] [address], [place] [address] Jan, [facility] [address] [id number] [address] [place] [address], [place] [address] Jan, [facility] [address] [id number] [address] [place] [address], [place] [address] Jan, [facility] [address] [id number] [address] [place] [address], [place] [address] Jan, [facility] [address] [id number] [address] [place] [address], [place] [address] Jan, [facility] [address] [id number] [address] [place] [address], [place] [address] December, [facility] [address] [id number] [address] [place] [address], [place] [address] December, [facility] [address] [id number] [address] [place] [address], [place] [address] December, [facility] [address] [id number] [address] [place] [address], [place] [address] December, [facility] [address] [id number] [address] [place] [address], [place] [address] December, [facility] [address] [id number] [address] [place] [address], [place] [address] December, [facility] [address] [id number] [address] [place] [address], [place] [address] Nov, [facility] [address] [id number] [facility] [place] [address] Nov, [facility] [address] [id number] [facility] [place] [address] Nov, [facility] [address] [id number] [facility] [place] [address] Nov, [facility] [address] [id number] [address] [place] [address], [place] [address] Nov, [facility] [address] [id number] [address] [place] [address], [place] [address] Nov, [facility] [address] [id number] [address] [place] [address], [place] [address] Oct, [facility] [address] [id number] [address] [place] [address], [place] [address] Oct, [facility] [address] [id number] [address] [place] [address], [place] [address] Oct, [facility] [address] [id number] [address] [place] [address], [place] [address] Oct, [facility] [address] [id number] [address] [place] [address], [place] [address] Sep, [facility] [address] [id number] [address] [place] [address], [place] [address] Sep, [facility] [address] [id number] [address] [place] [address], [place] [address] Sep, [facility] [address] [id number] [address] [place] [address], [place] [address] Sep, [facility] [address] [id number] [address] [place] [address], [place] [address] Sep, [facility] [address] [id number] [address] [place] [address], [place] [address] Sep, [facility] [address] [id number] [address] [place] [address], [place] [address] Sep, [facility] [address] [id number] [address] [place] [address], [place] [address] Sep, [facility] [address] [id number] [address] [place] [address], [place] [address] Sep, [facility] [address] [id number] [address] [place] [address], [place] [address] Sep, [facility] [address] [id number] [address] [place] [address], [place] [address] Aug, [facility] [address] [id number] [address] [place] [address], [place] [address] Aug, [facility] [address] [id number] [address] [place] [address], [place] [address] Aug, [facility] [address] [id number] [address] [place] [address], [place] [address] Aug, [facility] [address] [id number] [address] [place] [address], [place] [address] Aug, [facility] [address] [id number] [address] [place] [address], [place] [address] Aug, [facility] [address] [id number] [address] [place] [address], [place] [address] Jul, [facility] [address] [id number] [address] [place] [address], [place] [address] Jul, [facility] [address] [id number] [address] [place] [address], [place] [address] Jul, [facility] [address] [id number] [address] [place] [address], [place] [address] Jul, [facility] [address] [id number] [address] [place] [address], [place] [address] Jul, [facility] [address] [id number] [address] [place] [address], [place] [address] Jul, [facility] [address] [id number] [address] [place] [address], [place] [address] Jul, [facility] [address] [id number] [address] [place] [address], [place] [address] Jul, [facility] [address] [id number] [address] [place] [address], [place] [address] Jul, [facility] [address] [id number] [address] [place] [address], [place] [address] Jul, [facility] [address] [id number] [address] [place] [address], [place] [address] Jun, [facility] [address] [id number] [address] [place] [address], [place] [address] Jun, [facility] [address] [id number] [address] [place] [address], [place] [address] Jun, [facility] [address] [id number] [address] [place] [address], [place] [address] Jun, [facility] [address] [id number] [address] [place] [address], [place] [address] May, [facility] [address] [id number] [address] [place] [address], [place] [address] May, [facility] [address] [id number] [address] [place] [address], [place] [address] Apr, [facility] [address] [id number] [address] [place] [address], [place] [address] Apr, [facility] [address] [id number] [address] [place] [address], [place] [address] 05 Apr, 2013 [facility] [address] [id number] [address] [place] [address], [place] [address] Mar, [facility] [address] [id number] [address] [place] [address], [place] [address] Mar, [facility] [address] [id number] [address] [place] [address], [place] [address] Jan, [facility] [address] [id number] [address] [place] [address], [place] [address] Jan, [facility] [address] [id number] [address] [place] [address], [place] [address] Jan, [facility] [address] [id number] [address] [place] [address], [place] [address] Jan, [facility] [address] [id number] [address] [place] [address], [place] [address] 15 Jan, 2013 [facility] [address] [id number] [address] [place] [address], [place] [address] Jan, [facility] [address] [id number] [address] [place] [address], [place] [address] Jan, [facility] [address] [id number] [address] [place] [address], [place] [address] December, [facility] [address] [id number] [address] [place] [address], [place] [address] December, [facility] [address] [id number] [address] [place] [address], [place] [address] December, [facility] [address] [id number] [address] [place] [address], [place] [address] Nov, [facility] [address] [id number] [address] [place] [address], [place] [address] Nov, [facility] [address] [id number] [address] [place] [address], [place] [address] Oct, [facility] [address] [id number] [address] [place] [address], [place] [address] Oct, [facility] [address] [id number] [address] [place] [address], [place] [address] Sep, [facility] [address] [id number] [address] [place] [address], [place] [address] Sep, [facility] [address] [id number] [address] [place] [address], [place] [address] Aug, [facility] [address] [id number] [address] [place] [address], [place] [address] Aug, [facility] [address] [id number] [address] [place] [address], [place] [address] Jul, [facility] [address] [id number] [address] [place] [address], [place] [address] Jul, [facility] [address] [id number] [address] [place] [address], [place] [address] Jul, [facility] [address] [id number] [address] [place] [address], [place] [address] Jul, [facility] [address] [id number] [address] [place] [address], [place] [address] Jul, [facility] [address] [id number] [address] [place] [address], [place] [address] Jul, [facility] [address] [id number] [address] [place] [address], [place] [address] Jul, [facility] [address] [id number] [address] [place] [address], [place] [address] Jul, [facility] [address] [id number] [address] [place] [address], [place] [address] Jun, [facility] [address] [id number] [address] [place] [address], [place] [address] Jun, [facility] [address] [id number] [address] [place] [address], [place] [address] Jun, [facility] [address] [id number] [address] [place] [address], [place] [address] Jun, [facility] [address] [id number] [address] [place] [address], [place] [address] Jun, [facility] [address] [id number] [address] [place] [address], [place] [address] Jun, [facility] [address] [id number] [address] [place] [address], [place] [address] Jun, [facility] [address] [id number] [address] [place] [address], [place] [address] Jun, [facility] [address] [id number] [address] [place] [address], [place] [address] Jun, [facility] [address] [id number] [address] [place] [address], [place] [address] Jun, [facility] [address] [id number] [address] [place] [address], [place] [address] May, [facility] [address] [id number] [address] [place] [address], [place] [address] May, [facility] [address] [id number] [address] [place] [address], [place] [address] May, [facility] [address] [id number] [address] [place] [address], [place] [address] Apr, [facility] [address] [id number] [address] [place] [address], [place] [address] Apr, [facility] [address] [id number] [address] [place] [id number] Mar, [facility] [address] [id number] [address] [place] [id number] Mar, [facility] [address] [id number] [address] [place] [id number] Jan, [facility] [address] [id number] [address] [place] [address], [place] [address] Jan, [facility] [address] [id number] [address] [place] [id number] Jan, [facility] [address] [id number] [address] [place] [address] 14 Jan, 2012 [facility] [address] [id number] [address] [place] [id number] Jan, [facility] [address] [id number] [address] [place] [address], [place] [address] December, [facility] [address] [id number] [address] [place] [address], [place] [address] December, [facility] [address] [id number] [address] [place] [address], [place] [address] Nov, [facility] [address] [id number] [address] [place] [address], [place] [address] Nov, [facility] [address] [id number] [address] [place] [address], [place] [address] Oct, [facility] [address] [id number] [address] [place] [address], [place] [address] Oct, [facility] [address] [id number] [address] [place] [address], [place] [address] Oct, [facility] [address] [id number] [address] [place] [address], [place] [address] Oct, [facility] [address] [id number] [address] [place] [address], [place] [address] Sep, [facility] [address] [id number] [address] [place] [address], [place] [address] Sep, [facility] [address] [id number] [address] [place] [address], [place] [address] Sep, [facility] [address] [id number] [address] [place] [address], [place] [address] Sep, [facility] [address] [id number] [address] [place] [address], [place] [address] Sep, [facility] [address] [id number] [address] [place] [address], [place] [address] Sep, [facility] [address] [id number] [address] [place] [address], [place] [address] Sep, [facility] [address] [id number] [address] [place] [address], [place] [address] 15 Sep, 2011 [facility] [address] [id number] [address] [place] [address], [place] [address] 10 Sep, 2011 [facility] [address] [id number] [address] [place] [address], [place] [address] 27 Aug, 2011 [facility] [address] [id number] [address] [place] [address], [place] [address] Aug, [facility] [address] [id number] [address] [place] [address], [place] [address] 30 Jul, 2011 [facility] [address] [id number] [address] [place] [address], [place] [address] Jul, [facility] [address] [id number] [address] [place] [address], [place] [address] Jul, [facility] [address] [id number] [address] [place] [address], [place] [address] Jul, [facility] [address] [id number] [address] [place] [address], [place] [address] Jul, [facility] [address] [id number] [address] [place] [address], [place] [address] Jun, [facility] [address] [id number] [address] [place] [address], [place] [address] Jun, [facility] [address] [id number] [address] [place] [address], [place] [address] Jun, [facility] [address] [id number] [address] [place] [address], [place] [address] Jun, [facility] [address] [id number] [address] [place] [address], [place] [address] Jun, [facility] [address] [id number] [address] [place] [address], [place] [address] May, [facility] [address] [id number] [address] [place] [id number] 31 Jul, 2010 [facility] [place] [address] [facility] [id number] [address] [place] [id number] Jul, [facility] [place] [address] [facility] [id number] [address] [place] [id number] Jul, [facility] [place] [address] [facility] [id number] [address] [place] [id number] Jul, [facility] [place] [address] [facility] [id number] [address] [place] [id number] Jun, [facility] [place] [address] [facility] [id number] [address] [place] [id number] Jun, [facility] [place] [address] [facility] [id number] [address] [place] [id number] May, IMMUNIZATIONS No Known Immunizations SOCIAL HISTORY [...]
--- OUTSIDE RECORDS SUMMARY | 2020-01-03 21:19 | XMS REPORT ---
Author Author Stevie QUIÑONEZ Organization [facility] Address [address] [place] [address] Care Team Providers Care Programming Instructor Name Role Phone SUSAN QUIÑONEZ Unavailable PROBLEMS Type Condition ICD9-CM Code ZNI81-JN Code Onset Dates Condition S tatus SNOMED Code Problem Depressive disorder, not elsewhere classified F32. 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 Active 034515184 Problem Status post amputation of toe of right foot Z89.42 1 Active 288139041 Problem Peripheral vascular disease I73.9 Ac tive 160264546 Problem Chronic hepatitis C without hepatic coma B18.2 Active 897549445 Problem BMI 32.0-32.9,adult Z68.32 Active 776864824 Problem Venous insufficiency I87.2 Active 09297575 Problem Type 2 diabetes mellitus with other specified complication E11.69 Active 81262802628119 Problem Long-term insulin use Z79.4 Active 278554990 Problem Osteomyelitis M86.9 Active 022549 00 Problem Acquired absence of right great toe Z89.411 Active 513300896 Problem 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 Active 876266602 Problem Coronary artery disease invo lving [place] coronary artery of [place] heart without angina pectoris I25.10 Active 1641 051310744 Problem Coronary artery disease invo lving [place] coronary artery of [place] heart without angina pectoris I25.10 Active 1641 [id number] ALLERGIES No Information ENCOUNTERS Encounter Location Date Diagnosis [facility] [address] [facility] [id number] [address] [place] [phone] Jun, [facility] [address] [facility] [id number] [address] [place] [phone] Jun, Type 2 diabetes mellitus wit h other specified complication E11.69 ; Interstitial pulmonary fibrosis J84.10 and Venous insufficiency I87.2 [facility] [address] [id number] [address] [place] [phone] 11 May, 2019 Coronary artery disease invo lving [place] coronary artery of [place] heart without angina pectoris I25.10 ; Type 2 diabetes mellitus with other specified complication E11.69 and Long-term insulin use Z79.4 [facility] [address] [id number] [address] [place] [id number] 07 May, 2019 [facility] [address] [id number] [address] [place] [phone] 02 May, 2019 [facility] [address] [facility] [id number] [address] [place] [phone] 27 Apr, 2019 Type 2 diabetes mellitus wit h other specified complication E11.69 ; Coronary artery disease involving [place] coronary artery of [place] heart without angina pectoris I25.10 and Encounter for immunization Z23 [facility] [address] [id number] [address] [place] [phone] Apr, [facility] [address] [facility] [id number] [address] [place] [phone] Apr, [facility] [address] [facility] [id number] [address] [place] [phone] December, Chronic hepatitis C without hepatic coma B18.2 and Type 2 diabetes mellitus with other specified complication E11.69 [facility] [address] [facility] [id number] [address] [place] [id number] Nov, Abnormal PSA R97.20 [facility] [address] [id number] [address] [place] [phone] Nov, [facility] [address] [facility] [id number] [address] [place] [phone] Nov, Encounter for Medicare annua l wellness exam Z00.00 ; Type 2 diabetes mellitus with other specified complication E11.69 ; Peripheral vascular disease I73.9 ; Encounter for immunization Z23 ; Liver transplant recipient Z94.4 ; Acquired absence of right great toe Z89.411 ; 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 and Routine adult health maintenance Z00.00 [facility] [address] [place] [id number] [address] [place] [address] Nov, Medicare annual wellness vis it, initial Z00.00 ; Type 2 diabetes mellitus with other specified complication E11.69 ; Depressive disorder, not elsewhere classified F32.9 ; Peripheral vascular disease I73.9 ; Encounter for immunization Z23 ; Liver transplant recipient Z94.4 ; Status post amputation of toe of right foot Z89.421 and BMI 32.0-32.9,adult Z68.32 [facility] [address] [facility] [id number] [address] [place] [phone] 13 Oct, 2017 [facility] [address] [place] [id number] [address] [place] [id number] Oct, [facility] [address] [place] [id number] [address] [place] [address] Oct, Type 2 diabetes mellitus wit h other specified complication E11.69 ; Chronic hepatitis C without hepatic coma B18.2 and Depressive disorder, not elsewhere classified F32.9 [facility] [address] [facility] [id number] [address] [place] [phone] Sep, [facility] [address] [place] [id number] [address] [place] [phone] Sep, [facility] [address] [place] [id number] [address] [place] [phone] Sep, [facility] [id number] [place] [id number] Sep, Diabetes E11.9 [facility] [address] [facility] [id number] [address] [place] [address] Sep, [facility] [address] [place] [id number] Sep Peripheral vascular disease I73.9 ; 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 ; Status post amputation of toe of right foot Z89.421 ; Type 2 diabetes mellitus with other specified complication E11.69 and Liver transplant recipient Z94.4 [facility] [id number] [id number] 16 Sep, 2017 [facility] [address] [place] [id number] 13 Sep Status post amputation of toe of right foot Z89.421 ; 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 ; Osteomyelitis M86.9 ; Diabetes E11.9 ; Liver transplant recipient Z94.4 and History of drug abuse Z87.898 [facility] [address] [id number] [id number] 06 Sep, 2017 [place] [address] [place] [id number] [address] [place] [address] Jan, [place] [id number] [place] [address] Jan, [place] [address] [place] [id number] [address] [place] [address] December, Diabetes E11.9 ; Back pain M 54.9 and Anemia due to other cause D64.89 [place] [address] [place] [id number] [address] [place] [address] December, Osteomyelitis, unspecified M 86.9 [place] [address] [place] [id number] [address] [place] [phone] December, [place] [address] [place] [id number] [address] [place] [address] December, Diabetes E11.9 [place] [address] [facility] [id number] [address] [place] [id number] 18 Feb, 2016 Seborrheic keratoses L82.1 a nd Abscess of neck L02.11 [place] [address] [facility] [id number] [address] [place] [phone] 15 Feb, 2016 Sebaceous cyst L72.3 [facility] [address] [id number] [address] [place] [id number] 13 Feb, 2016 Abscess, neck L02.11 [facility] [address] [id number] [address] [place] [id number] 18 Oct, 2015 Diabetes E11.9 [facility] [address] [facility] [id number] [address] [place] [phone] Oct, Back pain M54.9 [facility] [address] [id number] [address] [place] [phone] Sep, Back pain M54.9 [facility] [address] [id number] [address] [place] [phone] Sep, Back pain M54.9 [facility] [address] [facility] [id number] [address] [place] [id number] Aug, Back pain M54.9 [facility] [address] [facility] [id number] [address] [place] [phone] Aug, Diabetes E11.9 and Liver tra nsplant recipient Z94.4 [facility] [address] [facility] [id number] [address] [place] [address] Aug, Back pain M54.9 [facility] [address] [facility] [id number] [address] [place] [phone] 31 Jul, 2015 [facility] [address] [facility] [id number] [address] [place] [phone] Jul, [facility] [address] [facility] [id number] [address] [place] [phone] Jul, [facility] [address] [facility] [id number] [address] [place] [phone] Jun, Depressive disorder, not els ewhere classified F32.9 [facility] [address] [id number] [address] [place] [phone] Jun, Diabetes E11.9 ; Depressive disorder, not elsewhere classified F32.9 and Back pain M54.9 [facility] [address] [id number] [address] [place] [phone] Jun, [facility] [address] [id number] [address] [place] [phone] Jun, [facility] [address] [id number] [address] [place] [phone] May, [facility] [address] [id number] [address] [place] [phone] May, [facility] [address] [id number] [address] [place] [id number] Apr, [facility] [address] [id number] [address] [place] [phone] Apr, [facility] [address] [id number] [address] [place] [phone] Mar, [facility] [address] [id number] [address] [place] [phone] Mar, [facility] [address] [id number] [address] [place] [id number] Mar, Dental examination V72.2 [facility] [address] [id number] [address] [place] [phone] Jan, [facility] [address] [id number] [address] [place] [id number] Jan, [facility] [address] [id number] [address] [place] [phone] Jan, [facility] [address] [id number] [address] [place] [phone] Jan, [facility] [address] [id number] [address] [place] [phone] Jan, [facility] [address] [id number] [address] [place] [phone] December, [facility] [address] [id number] [address] [place] [address] December, [facility] [address] [id number] [address] [place] [address] December, Diabetes mellitus type 2, un controlled 250.02 and Osteomyelitis of ankle or foot 730.27 [facility] [address] [id number] [address] [place] [phone] December, [facility] [address] [id number] [address] [place] [phone] Nov, [facility] [address] [id number] [address] [place] [phone] Nov, [facility] [address] [id number] [address] [place] [phone] Oct, [facility] [address] [id number] [address] [place] [phone] Oct, [facility] [address] [id number] [address] [place] [phone] Oct, [facility] [address] [id number] [address] [place] [phone] Oct, [facility] [address] [id number] [address] [place] [phone] Sep, [facility] [address] [id number] [address] [place] [phone] Sep, [facility] [address] [id number] [address] [place] [phone] Sep, [facility] [address] [id number] [address] [place] [phone] Sep, [facility] [address] [id number] [address] [place] [address] Aug, [facility] [address] [id number] [address] [place] [phone] Aug, [facility] [address] [id number] [address] [place] [address], [place] [address] Aug, [facility] [address] [id number] [address] [place] [address], [place] [address] Aug, [facility] [address] [id number] [address] [place] [address], [place] [address] Aug, [facility] [address] [id number] [address] [place] [address], [place] [address] Aug, [facility] [address] [id number] [address] [place] [address], [place] [address] Jul, [facility] [address] [id number] [address] [place] [address], [place] [address] Jul, [facility] [address] [id number] [address] [place] [address], [place] [address] Jul, [facility] [address] [id number] [address] [place] [address], [place] [address] Jul, [facility] [address] [id number] [address] [place] [address], [place] [address] Jul, [facility] [address] [id number] [address] [place] [address], [place] [address] Jul, [facility] [address] [id number] [address] [place] [address], [place] [address] Jun, [facility] [address] [id number] [address] [place] [address], [place] [address] Jun, [facility] [address] [id number] [address] [place] [address], [place] [address] Jun, [facility] [address] [id number] [address] [place] [address], [place] [address] Jun, [facility] [address] [id number] [address] [place] [address], [place] [address] May, [facility] [address] [id number] [address] [place] [address], [place] [address] May, [facility] [address] [id number] [address] [place] [address], [place] [address] May, [facility] [address] [id number] [address] [place] [address], [place] [address] May, [facility] [address] [id number] [address] [place] [address], [place] [address] May, [facility] [address] [id number] [address] [place] [address], [place] [address] May, [facility] [address] [id number] [address] [place] [address], [place] [address] Apr, [facility] [address] [id number] [address] [place] [address], [place] [address] Apr, [facility] [address] [id number] [address] [place] [address], [place] [address] Apr, [facility] [address] [id number] [address] [place] [address], [place] [address] Apr, [facility] [address] [id number] [address] [place] [address], [place] [address] Mar, [facility] [address] [id number] [address] [place] [address], [place] [address] Mar, [facility] [address] [id number] [address] [place] [address], [place] [address] Mar, [facility] [address] [id number] [address] [place] [address], [place] [address] Mar, [facility] [address] [id number] [address] [place] [address], [place] [address] Jan, [facility] [address] [id number] [address] [place] [address], [place] [address] Jan, [facility] [address] [id number] [address] [place] [address], [place] [address] Jan, [facility] [address] [id number] [address] [place] [address], [place] [address] Jan, [facility] [address] [id number] [address] [place] [address], [place] [address] Jan, [facility] [address] [id number] [address] [place] [address], [place] [address] Jan, [facility] [address] [id number] [address] [place] [address], [place] [address] Jan, [facility] [address] [id number] [address] [place] [address], [place] [address] Jan, [facility] [address] [id number] [address] [place] [address], [place] [address] Jan, [facility] [address] [id number] [address] [place] [address], [place] [address] Jan, [facility] [address] [id number] [address] [place] [address], [place] [address] Jan, [facility] [address] [id number] [address] [place] [address], [place] [address] Jan, [facility] [address] [id number] [address] [place] [address], [place] [address] December, [facility] [address] [id number] [address] [place] [address], [place] [address] December, [facility] [address] [id number] [address] [place] [address], [place] [address] December, [facility] [address] [id number] [address] [place] [address], [place] [address] December, [facility] [address] [id number] [address] [place] [address], [place] [address] December, [facility] [address] [id number] [address] [place] [address], [place] [address] December, [facility] [address] [id number] [address] [place] [address], [place] [address] Nov, [facility] [address] [id number] [facility] [place] [address] Nov, [facility] [address] [id number] [facility] [place] [address] Nov, [facility] [address] [id number] [facility] [place] [address] Nov, [facility] [address] [id number] [address] [place] [address], [place] [address] Nov, [facility] [address] [id number] [address] [place] [address], [place] [address] Nov, [facility] [address] [id number] [address] [place] [address], [place] [address] Oct, [facility] [address] [id number] [address] [place] [address], [place] [address] Oct, [facility] [address] [id number] [address] [place] [address], [place] [address] Oct, [facility] [address] [id number] [address] [place] [address], [place] [address] Oct, [facility] [address] [id number] [address] [place] [address], [place] [address] Sep, [facility] [address] [id number] [address] [place] [address], [place] [address] Sep, [facility] [address] [id number] [address] [place] [address], [place] [address] Sep, [facility] [address] [id number] [address] [place] [address], [place] [address] Sep, [facility] [address] [id number] [address] [place] [address], [place] [address] Sep, [facility] [address] [id number] [address] [place] [address], [place] [address] Sep, [facility] [address] [id number] [address] [place] [address], [place] [address] Sep, [facility] [address] [id number] [address] [place] [address], [place] [address] Sep, [facility] [address] [id number] [address] [place] [address], [place] [address] Sep, [facility] [address] [id number] [address] [place] [address], [place] [address] Sep, [facility] [address] [id number] [address] [place] [address], [place] [address] Aug, [facility] [address] [id number] [address] [place] [address], [place] [address] Aug, [facility] [address] [id number] [address] [place] [address], [place] [address] Aug, [facility] [address] [id number] [address] [place] [address], [place] [address] Aug, [facility] [address] [id number] [address] [place] [address], [place] [address] Aug, [facility] [address] [id number] [address] [place] [address], [place] [address] Aug, [facility] [address] [id number] [address] [place] [address], [place] [address] Jul, [facility] [address] [id number] [address] [place] [address], [place] [address] Jul, [facility] [address] [id number] [address] [place] [address], [place] [address] Jul, [facility] [address] [id number] [address] [place] [address], [place] [address] Jul, [facility] [address] [id number] [address] [place] [address], [place] [address] Jul, [facility] [address] [id number] [address] [place] [address], [place] [address] Jul, [facility] [address] [id number] [address] [place] [address], [place] [address] Jul, [facility] [address] [id number] [address] [place] [address], [place] [address] Jul, [facility] [address] [id number] [address] [place] [address], [place] [address] Jul, [facility] [address] [id number] [address] [place] [address], [place] [address] Jul, [facility] [address] [id number] [address] [place] [address], [place] [address] Jun, [facility] [address] [id number] [address] [place] [address], [place] [address] Jun, [facility] [address] [id number] [address] [place] [address], [place] [address] Jun, [facility] [address] [id number] [address] [place] [address], [place] [address] Jun, [facility] [address] [id number] [address] [place] [address], [place] [address] May, [facility] [address] [id number] [address] [place] [address], [place] [address] May, [facility] [address] [id number] [address] [place] [address], [place] [address] Apr, [facility] [address] [id number] [address] [place] [address], [place] [address] Apr, [facility] [address] [id number] [address] [place] [address], [place] [address] 05 Apr, 2013 [facility] [address] [id number] [address] [place] [address], [place] [address] Mar, [facility] [address] [id number] [address] [place] [address], [place] [address] Mar, [facility] [address] [id number] [address] [place] [address], [place] [address] Jan, [facility] [address] [id number] [address] [place] [address], [place] [address] Jan, [facility] [address] [id number] [address] [place] [address], [place] [address] Jan, [facility] [address] [id number] [address] [place] [address], [place] [address] Jan, [facility] [address] [id number] [address] [place] [address], [place] [address] 15 Jan, 2013 [facility] [address] [id number] [address] [place] [address], [place] [address] Jan, [facility] [address] [id number] [address] [place] [address], [place] [address] Jan, [facility] [address] [id number] [address] [place] [address], [place] [address] December, [facility] [address] [id number] [address] [place] [address], [place] [address] December, [facility] [address] [id number] [address] [place] [address], [place] [address] December, [facility] [address] [id number] [address] [place] [address], [place] [address] Nov, [facility] [address] [id number] [address] [place] [address], [place] [address] Nov, [facility] [address] [id number] [address] [place] [address], [place] [address] Oct, [facility] [address] [id number] [address] [place] [address], [place] [address] Oct, [facility] [address] [id number] [address] [place] [address], [place] [address] Sep, [facility] [address] [id number] [address] [place] [address], [place] [address] Sep, [facility] [address] [id number] [address] [place] [address], [place] [address] Aug, [facility] [address] [id number] [address] [place] [address], [place] [address] Aug, [facility] [address] [id number] [address] [place] [address], [place] [address] Jul, [facility] [address] [id number] [address] [place] [address], [place] [address] Jul, [facility] [address] [id number] [address] [place] [address], [place] [address] Jul, [facility] [address] [id number] [address] [place] [address], [place] [address] Jul, [facility] [address] [id number] [address] [place] [address], [place] [address] Jul, [facility] [address] [id number] [address] [place] [address], [place] [address] Jul, [facility] [address] [id number] [address] [place] [address], [place] [address] Jul, [facility] [address] [id number] [address] [place] [address], [place] [address] Jul, [facility] [address] [id number] [address] [place] [address], [place] [address] Jun, [facility] [address] [id number] [address] [place] [address], [place] [address] Jun, [facility] [address] [id number] [address] [place] [address], [place] [address] Jun, [facility] [address] [id number] [address] [place] [address], [place] [address], [facility] [address] [id number] [address] [place] [address], [place] [address] Jun, [facility] [address] [id number] [address] [place] [address], [place] [address] Jun, [facility] [address] [id number] [address] [place] [address], [place] [address] Jun, [facility] [address] [id number] [address] [place] [address], [place] [address] Jun, [facility] [address] [id number] [address] [place] [address], [place] [address] Jun, [facility] [address] [id number] [address] [place] [address], [place] [address] Jun, [facility] [address] [id number] [address] [place] [address], [place] [address] May, [facility] [address] [id number] [address] [place] [address], [place] [address] May, [facility] [address] [id number] [address] [place] [address], [place] [address] May, [facility] [address] [id number] [address] [place] [address], [place] [address] Apr, [facility] [address] [id number] [address] [place] [address], [place] [address] Apr, [facility] [address] [id number] [address] [place] [address] Mar, [facility] [address] [id number] [address] [place] [address] Mar, [facility] [address] [id number] [address] [place] [address] Jan, [facility] [address] [id number] [address] [place] [address], [place] [address] Jan, [facility] [address] [id number] [address] [place] [address] Jan, [facility] [address] [id number] [address] [place] [address] 14 Jan, 2012 [facility] [address] [id number] [address] [place] [address] Jan, [facility] [address] [id number] [address] [place] [address], [place] [address] December, [facility] [address] [id number] [address] [place] [address], [place] [address] December, [facility] [address] [id number] [address] [place] [address], [place] [address] Nov, [facility] [address] [id number] [address] [place] [address], [place] [address] Nov, [facility] [address] [id number] [address] [place] [address], [place] [address] Oct, [facility] [address] [id number] [address] [place] [address], [place] [address] Oct, [facility] [address] [id number] [address] [place] [address], [place] [address] Oct, [facility] [address] [id number] [address] [place] [address], [place] [address] Oct, [facility] [address] [id number] [address] [place] [address], [place] [address] Sep, [facility] [address] [id number] [address] [place] [address], [place] [address] Sep, [facility] [address] [id number] [address] [place] [address], [place] [address] Sep, [facility] [address] [id number] [address] [place] [address], [place] [address] Sep, [facility] [address] [id number] [address] [place] [address], [place] [address] Sep, [facility] [address] [id number] [address] [place] [address], [place] [address] Sep, [facility] [address] [id number] [address] [place] [address], [place] [address] Sep, [facility] [address] [id number] [address] [place] [address], [place] [address] 15 Sep, 2011 [facility] [address] [id number] [address] [place] [address], [place] [address] 10 Sep, 2011 [facility] [address] [id number] [address] [place] [address], [place] [address] 27 Aug, 2011 [facility] [address] [id number] [address] [place] [address], [place] [address] Aug, [facility] [address] [id number] [address] [place] [address], [place] [address] 30 Jul, 2011 [facility] [address] [id number] [address] [place] [address], [place] [address] Jul, [facility] [address] [id number] [address] [place] [address], [place] [address] Jul, [facility] [address] [id number] [address] [place] [address], [place] [address] Jul, [facility] [address] [id number] [address] [place] [address], [place] [address] Jul, [facility] [address] [id number] [address] [place] [address], [place] [address] Jun, [facility] [address] [id number] [address] [place] [address], [place] [address] Jun, [facility] [address] [id number] [address] [place] [address], [place] [address] Jun, [facility] [address] [id number] [address] [place] [address], [place] [address] Jun, [facility] [address] [id number] [address] [place] [address], [place] [address] Jun, [facility] [address] [id number] [address] [place] [address], [place] [address] May, [facility] [address] [id number] [address] [place] [id number] 31 Jul, 2010 [facility] [address] [facility] [id number] [address] [place] [address] Jul, [facility] [address] [facility] [id number] [address] [place] [address] Jul, [facility] [address] [facility] [id number] [address] [place] [address] Jul, [facility] [address] [facility] [id number] [address] [place] [address] Jun, [facility] [address] [facility] [id number] [address] [place] [address] Jun, [facility] [address] [facility] [id number] [address] [place] [address] May, IMMUNIZATIONS No Known Immunizations SOCIAL HISTORY [...]
--- OUTSIDE RECORDS SUMMARY | 2020-01-03 21:19 | XMS REPORT ---
Author Author Stevie QUIÑONEZ Organization [facility] Address [address] [place] [address] Care Team Providers Care Spout Positioner Name Role Phone SUSAN QUIÑONEZ Unavailable PROBLEMS Type Condition ICD9-CM Code QZC57-LF Code Onset Dates Condition S tatus SNOMED Code Problem Depressive disorder, not elsewhere classified F32. 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 Active 797995798 Problem Status post amputation of toe of right foot Z89.42 1 Active 086466915 Problem Peripheral vascular disease I73.9 Ac tive 111760653 Problem Chronic hepatitis C without hepatic coma B18.2 Active 427103138 Problem BMI 32.0-32.9,adult Z68.32 Active 964195447 Problem Venous insufficiency I87.2 Active 88788997 Problem Type 2 diabetes mellitus with other specified complication E11.69 Active [id number] Problem Long-term insulin use Z79.4 Active 197166010 Problem Osteomyelitis M86.9 Active 023656 00 Problem Acquired absence of right great toe Z89.411 Active 744314282 Problem 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 [address] [facility] [id number] [address] [place] [id number] [address], [address] [facility] [address] [facility] [id number] [address] [place] [phone] Jun, [facility] [address] [id number] [address] [place] [phone] Jun, Type 2 diabetes mellitus wit h other specified complication E11.69 ; Interstitial pulmonary fibrosis J84.10 [address] Venous insufficiency I87.2 [facility] [address] [id number] [address] [place] [phone] May, Coronary artery disease invo lving [place] coronary artery of [place] heart without angina pectoris I25.10 ; Type 2 diabetes mellitus with other specified complication E11.69 and Long-term insulin use Z79.4 [facility] [address] [id number] [address] [place] [phone] 07 May, 2019 [facility] [address] [id number] [address] [place] [phone] May, [facility] [address] [id number] [address] [place] [phone] Apr, Type 2 diabetes mellitus wit h other specified complication E11.69 ; Coronary artery disease involving [place] coronary artery of [place] heart without angina pectoris I25.10 and Encounter for immunization Z23 [facility] [address] [id number] [address] [place] [phone] Apr, [facility] [address] [id number] [address] [place] [phone] Apr, [facility] [address] [id number] [address] [place] [phone] December, Chronic hepatitis C without hepatic coma B18.2 and Type 2 diabetes mellitus with other specified complication E11.69 [facility] [address] [id number] [address] [place] [address] Nov, Abnormal PSA R97.20 [facility] [address] [id number] [address] [place] [phone] Nov, 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 [address] [place] [id number] [address] [place] [address] Nov, Medicare annual wellness vis it, initial Z00.00 ; Type 2 diabetes mellitus with other specified complication E11.69 ; Depressive disorder, not elsewhere classified F32.9 ; Peripheral vascular disease I73.9 ; Encounter for immunization Z23 ; Liver transplant recipient Z94.4 ; Status post amputation of toe of right foot Z89.421 and BMI 32.0-32.9,adult Z68.32 [facility] [id number] [place] [id number] 13 Oct, 2017 [facility] [address] [place] [id number] [address] [place] [phone] Oct, [facility] [address] [id number] [address] [place] [phone] Oct, Type 2 diabetes mellitus wit h other specified complication E11.69 ; Chronic hepatitis C without hepatic coma B18.2 and Depressive disorder, not elsewhere classified F32.9 [facility] [address] [place] [id number] [address] [place] [phone] Sep, [facility] [address] [id number] [address] [place] [address] Sep, [facility] [address] [id number] [address] [place] [phone] Sep, [facility] [place] [address] [place] [id number] [place] [id number] Sep, Diabetes E11.9 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 ; Status post amputation of toe of right foot Z89.421 ; Type 2 diabetes mellitus with other specified complication E11.69 and Liver transplant recipient Z94.4 [facility] [place] [address] [id number] [place] [id number] 16 Sep, 2017 [employer] [address] [place] [id number] Sep Status post amputation of toe of right foot Z89.421 ; 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 ; Osteomyelitis M86.9 ; Diabetes E11.9 ; Liver transplant recipient Z94.4 and History of drug abuse Z87.898 [facility] [place] [address] [id number] [place] [id number] Sep, [place] [address] [place] [id number] [address] [place] [phone] Jan, [place] [address] [facility] [id number] [address] [place] [phone] Jan, [place] [address] [place] [id number] [address] [place] [address] December, Diabetes E11.9 ; Back pain M 54.9 and Anemia due to other cause D64.89 [place] [address] [facility] [id number] [address] [place] [phone] December, Osteomyelitis, unspecified M 86.9 [facility] [address] [facility] [id number] [address] [place] [phone] December, [place] [address] [facility] [id number] [address] [place] [address] December, Diabetes E11.9 [facility] [address] [facility] [id number] [address] [place] [phone] Jan, Seborrheic keratoses L82.1 a nd Abscess of neck L02.11 [place] [address] [place] [id number] [address] [place] [id number] 15 Feb, 2016 Sebaceous cyst L72.3 [facility] [address] [facility] [id number] [address] [place] [phone] 13 Feb, 2016 Abscess, neck L02.11 [facility] [address] [facility] [id number] [address] [place] [phone] 18 Oct, [address] [facility] [address] [facility] [id number] [address] [place] [phone] 09 Oct, [address] [facility] [address] [facility] [id number] [address] [place] [phone] Sep, Back pain M54.9 [facility] [address] [facility] [id number] [address] [place] [id number] 04 Sep, [address] [facility] [address] [facility] [id number] [address] [place] [phone] Aug, Back pain M54.9 [facility] [address] [facility] [id number] [address] [place] [address] Aug, Diabetes E11.9 and Liver tra nsplant recipient Z94.4 [facility] [address] [facility] [id number] [address] [place] [phone] Aug, Back pain M54.9 [facility] [address] [facility] [id number] [address] [place] [phone] Jul, [facility] [address] [facility] [id number] [address] [place] [phone] [address], [address] [facility] [address] [facility] [id number] [address] [place] [phone] Jul, [facility] [address] [facility] [id number] [address] [place] [phone] Jun, Depressive disorder, not els ewhere classified F32.9 [facility] [address] [facility] [id number] [address] [place] [phone] Jun, Diabetes E11.9 ; Depressive disorder, not elsewhere classified F32.9 and Back pain M54.9 [facility] [address] [id number] [address] [place] [id number] Jun, [facility] [address] [id number] [address] [place] [phone] Jun, [facility] [address] [id number] [address] [place] [phone] May, [facility] [address] [id number] [address] [place] [phone] May, [facility] [address] [id number] [address] [place] [phone] Apr, [facility] [address] [id number] [address] [place] [phone] Apr, [facility] [address] [id number] [address] [place] [phone] Mar, [facility] [address] [id number] [address] [place] [phone] Mar, [facility] [address] [id number] [address] [place] [id number] Mar, Dental examination V72.2 [facility] [address] [id number] [address] [place] [phone] Jan, [facility] [address] [id number] [address] [place] [phone] Jan, [facility] [address] [id number] [address] [place] [phone] Jan, [facility] [address] [id number] [address] [place] [phone] Jan, [facility] [address] [id number] [address] [place] [id number] Jan, [facility] [address] [id number] [address] [place] [phone] December, [facility] [address] [id number] [address] [place] [phone] December, [facility] [address] [id number] [address] [place] [phone] December, Diabetes mellitus type 2, un controlled 250.02 and Osteomyelitis of ankle or foot 730.27 [facility] [place] [address] [id number] [address] [place] [phone] December, [facility] [address] [id number] [address] [place] [phone] Nov, [facility] [address] [id number] [address] [place] [phone] Nov, [facility] [address] [id number] [address] [place] [phone] Oct, [facility] [address] [id number] [address] [place] [phone] Oct, [facility] [address] [id number] [address] [place] [phone] Oct, [facility] [address] [id number] [address] [place] [phone] Oct, [facility] [address] [id number] [address] [place] [phone] Sep, [facility] [address] [id number] [address] [place] [phone] Sep, [facility] [address] [id number] [address] [place] [phone] Sep, [facility] [address] [id number] [address] [place] [phone] Sep, [facility] [address] [id number] [address] [place] [phone] Aug, [facility] [address] [id number] [address] [place] [address], [place] [address] Aug, [facility] [address] [id number] [address] [place] [address], [place] [address] Aug, [facility] [address] [id number] [address] [place] [address], [place] [address] Aug, [facility] [address] [id number] [address] [place] [address], [place] [address] Aug, [facility] [address] [id number] [address] [place] [address], [place] [address] Aug, [facility] [address] [id number] [address] [place] [address], [place] [address] Jul, [facility] [address] [id number] [address] [place] [address], [place] [address] Jul, [facility] [address] [id number] [address] [place] [address], [place] [address] Jul, [facility] [address] [id number] [address] [place] [address], [place] [address] Jul, [facility] [address] [id number] [address] [place] [address], [place] [address] Jul, [facility] [address] [id number] [address] [place] [address], [place] [address] Jul, [facility] [address] [id number] [address] [place] [address], [place] [address] Jun, [facility] [address] [id number] [address] [place] [address], [place] [address] Jun, [facility] [address] [id number] [address] [place] [address], [place] [address] Jun, [facility] [address] [id number] [address] [place] [address], [place] [address] Jun, [facility] [address] [id number] [address] [place] [address], [place] [address] May, [facility] [address] [id number] [address] [place] [address], [place] [address] May, [facility] [address] [id number] [address] [place] [address], [place] [address] May, [facility] [address] [id number] [address] [place] [address], [place] [address] May, [facility] [address] [id number] [address] [place] [address], [place] [address] May, [facility] [address] [id number] [address] [place] [address], [place] [address] May, [facility] [address] [id number] [address] [place] [address], [place] [address] Apr, [facility] [address] [id number] [address] [place] [address], [place] [address] Apr, [facility] [address] [id number] [address] [place] [address], [place] [address] Apr, [facility] [address] [id number] [address] [place] [address], [place] [address] Apr, [facility] [address] [id number] [address] [place] [address], [place] [address] Mar, [facility] [address] [id number] [address] [place] [address], [place] [address] Mar, [facility] [address] [id number] [address] [place] [address], [place] [address] Mar, [facility] [address] [id number] [address] [place] [address], [place] [address] Mar, [facility] [address] [id number] [address] [place] [address], [place] [address] Jan, [facility] [address] [id number] [address] [place] [address], [place] [address] Jan, [facility] [address] [id number] [address] [place] [address], [place] [address] Jan, [facility] [address] [id number] [address] [place] [address], [place] [address] Jan, [facility] [address] [id number] [address] [place] [address], [place] [address] Jan, [facility] [address] [id number] [address] [place] [address], [place] [address] Jan, [facility] [address] [id number] [address] [place] [address], [place] [address] Jan, [facility] [address] [id number] [address] [place] [address], [place] [address] Jan, [facility] [address] [id number] [address] [place] [address], [place] [address] Jan, [facility] [address] [id number] [address] [place] [address], [place] [address] Jan, [facility] [address] [id number] [address] [place] [address], [place] [address] Jan, [facility] [address] [id number] [address] [place] [address], [place] [address] Jan, [facility] [address] [id number] [address] [place] [address], [place] [address] December, [facility] [address] [id number] [address] [place] [address], [place] [address] December, [facility] [address] [id number] [address] [place] [address], [place] [address] December, [facility] [address] [id number] [address] [place] [address], [place] [address] December, [facility] [address] [id number] [address] [place] [address], [place] [address] December, [facility] [address] [id number] [address] [place] [address], [place] [address] December, [facility] [address] [id number] [facility] [place] [address] Nov, [facility] [address] [id number] [facility] [place] [address] Nov, [facility] [address] [id number] [facility] [place] [address] Nov, [facility] [address] [id number] [address] [place] [address], [place] [address] Nov, [facility] [address] [id number] [address] [place] [address], [place] [address] Nov, [facility] [address] [id number] [address] [place] [address], [place] [address] Nov, [facility] [address] [id number] [address] [place] [address], [place] [address] Oct, [facility] [address] [id number] [address] [place] [address], [place] [address] Oct, [facility] [address] [id number] [address] [place] [address], [place] [address] Oct, [facility] [address] [id number] [address] [place] [address], [place] [address] Oct, [facility] [address] [id number] [address] [place] [address], [place] [address] Sep, [facility] [address] [id number] [address] [place] [address], [place] [address] Sep, [facility] [address] [id number] [address] [place] [address], [place] [address] Sep, [facility] [address] [id number] [address] [place] [address], [place] [address] Sep, [facility] [address] [id number] [address] [place] [address], [place] [address] Sep, [facility] [address] [id number] [address] [place] [address], [place] [address] Sep, [facility] [address] [id number] [address] [place] [address], [place] [address] Sep, [facility] [address] [id number] [address] [place] [address], [place] [address] Sep, [facility] [address] [id number] [address] [place] [address], [place] [address] Sep, [facility] [address] [id number] [address] [place] [address], [place] [address] Sep, [facility] [address] [id number] [address] [place] [address], [place] [address] Aug, [facility] [address] [id number] [address] [place] [address], [place] [address] Aug, [facility] [address] [id number] [address] [place] [address], [place] [address] Aug, [facility] [address] [id number] [address] [place] [address], [place] [address] Aug, [facility] [address] [id number] [address] [place] [address], [place] [address] Aug, [facility] [address] [id number] [address] [place] [address], [place] [address] Aug, [facility] [address] [id number] [address] [place] [address], [place] [address] Jul, [facility] [address] [id number] [address] [place] [address], [place] [address] Jul, [facility] [address] [id number] [address] [place] [address], [place] [address] Jul, [facility] [address] [id number] [address] [place] [address], [place] [address] Jul, [facility] [address] [id number] [address] [place] [address], [place] [address] Jul, [facility] [address] [id number] [address] [place] [address], [place] [address] Jul, [facility] [address] [id number] [address] [place] [address], [place] [address] Jul, [facility] [facility] [address] [id number] [address] [place] [address], [place] [address] Jul, [facility] [address] [id number] [address] [place] [address], [place] [address] Jul, [facility] [address] [id number] [address] [place] [address], [place] [address] Jul, [facility] [address] [id number] [address] [place] [address], [place] [address] Jun, [facility] [address] [id number] [address] [place] [address], [place] [address] Jun, [facility] [address] [id number] [address] [place] [address], [place] [address] Jun, [facility] [address] [id number] [address] [place] [address], [place] [address] Jun, [facility] [address] [id number] [address] [place] [address], [place] [address] May, [facility] [address] [id number] [address] [place] [address], [place] [address] May, [facility] [address] [id number] [address] [place] [address], [place] [address] Apr, [facility] [address] [id number] [address] [place] [address], [place] [address] Apr, [facility] [address] [id number] [address] [place] [address], [place] [address] Apr, [facility] [address] [id number] [address] [place] [address], [place] [address] Mar, [facility] [address] [id number] [address] [place] [address], [place] [address] Mar, [facility] [address] [id number] [address] [place] [address], [place] [address] Jan, [facility] [address] [id number] [address] [place] [address], [place] [address] Jan, [facility] [address] [id number] [address] [place] [address], [place] [address] Jan, [facility] [address] [id number] [address] [place] [address], [place] [address] Jan, [facility] [address] [id number] [address] [place] [address], [place] [address] Jan, [facility] [address] [id number] [address] [place] [address], [place] [address] Jan, [facility] [address] [id number] [address] [place] [address], [place] [address] Jan, [facility] [address] [id number] [address] [place] [address], [place] [address] December, [facility] [address] [id number] [address] [place] [address], [place] [address] December, [facility] [address] [id number] [address] [place] [address], [place] [address] December, [facility] [address] [id number] [address] [place] [address], [place] [address] Nov, [facility] [address] [id number] [address] [place] [address], [place] [address] Nov, [facility] [address] [id number] [address] [place] [address], [place] [address] Oct, [facility] [address] [id number] [address] [place] [address], [place] [address] Oct, [facility] [address] [id number] [address] [place] [address], [place] [address] Sep, [facility] [address] [id number] [address] [place] [address], [place] [address] 08 Sep, 2012 [facility] [address] [id number] [address] [place] [address], [place] [address] Aug, [facility] [address] [id number] [address] [place] [address], [place] [address] Aug, [facility] [address] [id number] [address] [place] [address], [place] [address] Jul, [facility] [address] [id number] [address] [place] [address], [place] [address] Jul, [facility] [address] [id number] [address] [place] [address], [place] [address] Jul, [facility] [address] [id number] [address] [place] [address], [place] [address] Jul, [facility] [address] [id number] [address] [place] [address], [place] [address] Jul, [facility] [address] [id number] [address] [place] [address], [place] [address] Jul, [facility] [address] [id number] [address] [place] [address], [place] [address] Jul, [facility] [address] [id number] [address] [place] [address], [place] [address] Jul, [facility] [address] [id number] [address] [place] [address], [place] [address] Jun, [facility] [address] [id number] [address] [place] [address], [place] [address] Jun, [facility] [address] [id number] [address] [place] [address], [place] [address] Jun, [facility] [address] [id number] [address] [place] [address], [place] [address] Jun, [facility] [address] [id number] [address] [place] [address], [place] [address] Jun, [facility] [address] [id number] [address] [place] [address], [place] [address] Jun, [facility] [address] [id number] [address] [place] [address], [place] [address] Jun, [facility] [address] [id number] [address] [place] [address], [place] [address] Jun, [facility] [address] [id number] [address] [place] [address], [place] [address] Jun, [facility] [address] [id number] [address] [place] [address], [place] [address] Jun, [facility] [address] [id number] [address] [place] [address], [place] [address] May, [facility] [address] [id number] [address] [place] [address], [place] [address] May, [facility] [address] [id number] [address] [place] [address], [place] [address] May, [facility] [address] [id number] [address] [place] [address], [place] [address] Apr, [facility] [address] [id number] [address] [place] [address] Apr, [facility] [address] [id number] [address] [place] [address] Mar, [facility] [address] [id number] [address] [place] [address] Mar, [facility] [address] [id number] [address] [place] [address], [place] [address] Jan, [facility] [address] [id number] [address] [place] [address] Jan, [facility] [address] [id number] [address] [place] [address] Jan, [facility] [address] [id number] [address] [place] [address] Jan, [facility] [address] [id number] [address] [place] [address], [place] [address] Jan, [facility] [address] [id number] [address] [place] [address], [place] [address] December, [facility] [address] [id number] [address] [place] [address], [place] [address] December, [facility] [address] [id number] [address] [place] [address], [place] [address] Nov, [facility] [address] [id number] [address] [place] [address], [place] [address] Nov, [facility] [address] [id number] [address] [place] [address], [place] [address] Oct, [facility] [address] [id number] [address] [place] [address], [place] [address] Oct, [facility] [address] [id number] [address] [place] [address], [place] [address] Oct, [facility] [address] [id number] [address] [place] [address], [place] [address] Oct, [facility] [address] [id number] [address] [place] [address], [place] [address] Sep, [facility] [address] [id number] [address] [place] [address], [place] [address] Sep, [facility] [address] [id number] [address] [place] [address], [place] [address] Sep, [facility] [address] [id number] [address] [place] [address], [place] [address] Sep, [facility] [address] [id number] [address] [place] [address], [place] [address] Sep, [facility] [address] [id number] [address] [place] [address], [place] [address] Sep, [facility] [address] [id number] [address] [place] [address], [place] [address] 15 Sep, 2011 [facility] [address] [id number] [address] [place] [address], [place] [address] 15 Sep, 2011 [facility] [address] [id number] [address] [place] [address], [place] [address] 10 Sep, 2011 [facility] [address] [id number] [address] [place] [address], [place] [address] 27 Aug, 2011 [facility] [address] [id number] [address] [place] [address], [place] [address] Aug, [facility] [address] [id number] [address] [place] [address], [place] [address] 30 Jul, 2011 [facility] [address] [id number] [address] [place] [address], [place] [address] Jul, [facility] [address] [id number] [address] [place] [address], [place] [address] Jul, [facility] [address] [id number] [address] [place] [address], [place] [address] Jul, [facility] [address] [id number] [address] [place] [address], [place] [address] Jul, [facility] [address] [id number] [address] [place] [address], [place] [address] Jun, [facility] [address] [id number] [address] [place] [address], [place] [address] Jun, [facility] [address] [id number] [address] [place] [address], [place] [address] Jun, [facility] [address] [id number] [address] [place] [address], [place] [address] Jun, [facility] [address] [id number] [address] [place] [address], [place] [address] Jun, [facility] [address] [id number] [address] [place] [address] May, [facility] [address] [id number] [address] [place] [address] [address] Jul, [address] [facility] [address] [id number] [address] [place] [address] Jul, [facility] [address] [id number] [address] [place] [address] Jul, [facility] [address] [id number] [address] [place] [address] Jul, [facility] [address] [id number] [address] [place] [address] Jun, [facility] [address] [id number] [address] [place] [address] Jun, [facility] [address] [id number] [address] [place] [address] May, IMMUNIZATIONS No Known Immunizations SOCIAL HISTORY Never Assessed REASON FOR VISIT PLAN OF CARE VITAL SIGNS Height 72 in 2014-07-24 Weight 226.6 lbs 2014-07-24 Temperature 97.9 degrees Fahrenheit 2014-07-24 Heart Rate 80 bpm 2014-07-24 Respiratory Rate 2014-07-24 Blood pressure systolic 128 mmHg 2014-07-24 Blood pressure diastolic 84 mmHg 2014-07-24 MEDICATIONS Unknown Medications RESULTS No Results PROCEDURES Procedure Date Ordered Result Body Site GLYCATED HEMOGLOBIN TEST Jul 24, 2014 INSTRUCTIONS MEDICATIONS ADMINISTERED No Known Medications MEDICAL [...] Hospitalization History Osteomylitis, Abcess to right foot,- [facility] 12/06/16 Hospitalization History right foot toes amputated 09/2017 Hospitalization History [facility] 3 heart attacks in 2 weeks.
--- OUTSIDE RECORDS SUMMARY | 2020-01-03 21:20 | XMS REPORT ---
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 Active 060560828 Problem Status post amputation of toe of right foot Z89.42 1 Active 110392354 Problem Peripheral vascular disease I73.9 Ac tive 849108093 Problem Chronic hepatitis C without hepatic coma B18.2 Active 923717197 Problem BMI 32.0-32.9,adult Z68.32 Active 619033218 Problem Venous insufficiency I87.2 Active 87837579 Problem Type 2 diabetes mellitus with other specified complication E11.69 Active 91930130567436 Problem Long-term insulin use Z79.4 Active 119406324 Problem Osteomyelitis M86.9 Active 336497 00 Problem Acquired absence of right great toe Z89.411 Active 191628274 Problem 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 Active 045550211 Problem Coronary artery disease invo lving asa'[place] coronary artery of [place] heart without angina pectoris I25.10 Active 1641 940717927 Problem Coronary artery disease invo lving [place] coronary artery of [place] heart without angina pectoris I25.10 Active 1641 [id number] ALLERGIES No Information ENCOUNTERS Encounter Location Date Diagnosis [facility] [address] [facility] [id number] [address] [place] [address] 05 Jun, 2019 [facility] [address] [facility] [id number] [address] [place] [address] Jun, Type 2 diabetes mellitus wit h other specified complication E11.69 ; Interstitial pulmonary fibrosis J84.10 and Venous insufficiency I87.2 [facility] [address] [id number] [address] [place] [address] 11 May, 2019 Coronary artery disease invo lving as[place] coronary artery of [place] heart without angina pectoris I25.10 ; Type 2 diabetes mellitus with other specified complication E11.69 and Long-term insulin use Z79.4 [facility] [address] [id number] [address] [place] [address] 07 May, 2019 [facility] [address] [id number] [address] [place] [address] 02 May, 2019 [facility] [address] [facility] [id number] [address] [place] [address] 27 Apr, 2019 Type 2 diabetes mellitus wit h other specified complication E11.69 ; Coronary artery disease involving asa'[place] coronary artery of [place] heart without angina pectoris I25.10 and Encounter for immunization Z23 [facility] [address] [id number] [address] [place] [address] Apr, [facility] [address] [facility] [id number] [address] [place] [address] Apr, [facility] [address] [facility] [id number] [address] [place] [address] December, Chronic hepatitis C without hepatic coma B18.2 and Type 2 diabetes mellitus with other specified complication E11.69 [facility] [address] [facility] [id number] [address] [place] [address] Nov, Abnormal PSA R97.20 [facility] [address] [id number] [address] [place] [address] Nov, [facility] [address] [facility] [id number] [address] [place] [address] Nov, Encounter for Medicare annua l wellness exam Z00.00 ; Type 2 diabetes mellitus with other specified complication E11.69 ; Peripheral vascular disease I73.9 ; Encounter for immunization Z23 ; Liver transplant recipient Z94.4 ; Acquired absence of right great toe Z89.411 ; 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 and Routine adult health maintenance Z00.00 [facility] [address] [place] [id number] [address] [place] [address] Nov, Medicare annual wellness vis it, initial Z00.00 ; Type 2 diabetes mellitus with other specified complication E11.69 ; Depressive disorder, not elsewhere classified F32.9 ; Peripheral vascular disease I73.9 ; Encounter for immunization Z23 ; Liver transplant recipient Z94.4 ; Status post amputation of toe of right foot Z89.421 and BMI 32.0-32.9,adult Z68.32 [facility] [address] [facility] [id number] [address] [place] [address] 13 Oct, 2017 [facility] [address] [place] [id number] [address] [place] [address] Oct, [facility] [address] [place] [id number] [address] [place] [address] Oct, Type 2 diabetes mellitus wit h other specified complication E11.69 ; Chronic hepatitis C without hepatic coma B18.2 and Depressive disorder, not elsewhere classified F32.9 [facility] [address] [facility] [id number] [address] [place] [address] Sep, [facility] [address] [place] [id number] [address] [place] [address] Sep, [facility] [address] [place] [id number] [address] [place] [address] Sep, [facility] [id number] [place] [id number] Sep, Diabetes E11.9 [facility] [address] [facility] [id number] [address] [place] [address] Sep, [facility] [address] [place] [id number] Sep Peripheral vascular disease I73.9 ; 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 ; Status post amputation of toe of right foot Z89.421 ; Type 2 diabetes mellitus with other specified complication E11.69 and Liver transplant recipient Z94.4 [facility] [address] [id number] 16 Sep, 2017 [facility] [address] [place] [id number] 13 Sep Status post amputation of toe of right foot Z89.421 ; 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 ; Osteomyelitis M86.9 ; Diabetes E11.9 ; Liver transplant recipient Z94.4 and History of drug abuse Z87.898 [facility] [address] [id number] [id number] 06 Sep, 2017 [place] [address] [place] [id number] [address] [place] [address] Jan, [place] [id number] [place] [address] Jan, [place] [address] [place] [id number] [address] [place] [address] December, Diabetes E11.9 ; Back pain M 54.9 and Anemia due to other cause D64.89 [place] [address] [place] [id number] [address] [place] [address] December, Osteomyelitis, unspecified M 86.9 [place] [address] [place] [id number] [address] [place] [address] December, [place] [address] [place] [id number] [address] [place] [address] December, Diabetes E11.9 [place] [address] [facility] [id number] [address] [place] [address] 18 Feb, 2016 Seborrheic keratoses L82.1 a nd Abscess of neck L02.11 [place] [address] [facility] [id number] [address] [place] [address] 15 Feb, 2016 Sebaceous cyst L72.3 [facility] [address] [id number] [address] [place] [address] 13 Feb, 2016 Abscess, neck L02.11 [facility] [address] [id number] [address] [place] [address] 18 Oct, 2015 Diabetes E11.9 [facility] [address] [facility] [id number] [address] [place] [address] Oct, Back pain M54.9 [facility] [address] [id number] [address] [place] [address] Sep, Back pain M54.9 [facility] [address] [id number] [address] [place] [address] Sep, Back pain M54.9 [facility] [address] [facility] [id number] [address] [place] [address] Aug, Back pain M54.9 [facility] [address] [facility] [id number] [address] [place] [address] Aug, Diabetes E11.9 and Liver tra nsplant recipient Z94.4 [facility] [address] [facility] [id number] [address] [place] [address] Aug, Back pain M54.9 [facility] [address] [facility] [id number] [address] [place] [address] 31 Jul, 2015 [facility] [address] [facility] [id number] [address] [place] [address] Jul, [facility] [address] [facility] [id number] [address] [place] [address] Jul, [facility] [address] [facility] [id number] [address] [place] [address] Jun, Depressive disorder, not els ewhere classified F32.9 [facility] [address] [id number] [address] [place] [address] Jun, Diabetes E11.9 ; Depressive disorder, not elsewhere classified F32.9 and Back pain M54.9 [facility] [address] [id number] [address] [place] [address] Jun, [facility] [address] [id number] [address] [place] [address] Jun, [facility] [address] [id number] [address] [place] [address] May, [facility] [address] [id number] [address] [place] [address] May, [facility] [address] [id number] [address] [place] [address] Apr, [facility] [address] [id number] [address] [place] [address] Apr, [facility] [address] [id number] [address] [place] [address] Mar, [facility] [address] [id number] [address] [place] [address] Mar, [facility] [address] [id number] [address] [place] [id number] Mar, Dental examination V72.[address] [facility] [address] [id number] [address] [place] [address] Jan, [facility] [address] [id number] [address] [place] [address] Jan, [facility] [address] [id number] [address] [place] [address] Jan, [facility] [address] [id number] [address] [place] [address] Jan, [facility] [address] [id number] [address] [place] [address] Jan, [facility] [address] [id number] [address] [place] [address] December, [facility] [address] [id number] [address] [place] [address] December, [facility] [address] [id number] [address] [place] [address] December, Diabetes mellitus type 2, un controlled 250.02 and Osteomyelitis of ankle or foot 730.27 [facility] [address] [id number] [address] [place] [address] December, [facility] [address] [id number] [address] [place] [address] Nov, [facility] [address] [id number] [address] [place] [address] Nov, [facility] [address] [id number] [address] [place] [address] Oct, [facility] [address] [id number] [address] [place] [address] Oct, [facility] [address] [id number] [address] [place] [address] Oct, [facility] [address] [id number] [address] [place] [address] Oct, [facility] [address] [id number] [address] [place] [address] Sep, [facility] [address] [id number] [address] [place] [address] Sep, [facility] [address] [id number] [address] [place] [address] Sep, [facility] [address] [id number] [address] [place] [address] Sep, [facility] [address] [id number] [address] [place] [address] Aug, [facility] [address] [id number] [address] [place] [address] Aug, [facility] [address] [id number] [address] [place] [address], [place] [address] Aug, [facility] [address] [id number] [address] [place] [address], [place] [address] Aug, [facility] [address] [id number] [address] [place] [address], [place] [address] Aug, [facility] [address] [id number] [address] [place] [address], [place] [address] Aug, [facility] [address] [id number] [address] [place] [address], [place] [address] Jul, [facility] [address] [id number] [address] [place] [address], [place] [address] Jul, [facility] [address] [id number] [address] [place] [address], [place] [address] Jul, [facility] [address] [id number] [address] [place] [address], [place] [address] Jul, [facility] [address] [id number] [address] [place] [address], [place] [address] Jul, [facility] [address] [id number] [address] [place] [address], [place] [address] Jul, [facility] [address] [id number] [address] [place] [address], [place] [address] Jun, [facility] [address] [id number] [address] [place] [address], [place] [address] Jun, [facility] [address] [id number] [address] [place] [address], [place] [address] Jun, [facility] [address] [id number] [address] [place] [address], [place] [address] Jun, [facility] [address] [id number] [address] [place] [address], [place] [address] May, [facility] [address] [id number] [address] [place] [address], [place] [address] May, [facility] [address] [id number] [address] [place] [address], [place] [address] May, [facility] [address] [id number] [address] [place] [address], [place] [address] May, [facility] [address] [id number] [address] [place] [address], [place] [address] May, [facility] [address] [id number] [address] [place] [address], [place] [address] May, [facility] [address] [id number] [address] [place] [address], [place] [address] Apr, [facility] [address] [id number] [address] [place] [address], [place] [address] Apr, [facility] [address] [id number] [address] [place] [address], [place] [address] Apr, [facility] [address] [id number] [address] [place] [address], [place] [address] Apr, [facility] [address] [id number] [address] [place] [address], [place] [address] Mar, [facility] [address] [id number] [address] [place] [address], [place] [address] Mar, [facility] [address] [id number] [address] [place] [address], [place] [address] Mar, [facility] [address] [id number] [address] [place] [address], [place] [address] Mar, [facility] [address] [id number] [address] [place] [address], [place] [address] Jan, [facility] [address] [id number] [address] [place] [address], [place] [address] Jan, [facility] [address] [id number] [address] [place] [address], [place] [address] Jan, [facility] [address] [id number] [address] [place] [address], [place] [address] Jan, [facility] [address] [id number] [address] [place] [address], [place] [address] Jan, [facility] [address] [id number] [address] [place] [address], [place] [address] Jan, [facility] [address] [id number] [address] [place] [address], [place] [address] Jan, [facility] [address] [id number] [address] [place] [address], [place] [address] Jan, [facility] [address] [id number] [address] [place] [address], [place] [address] Jan, [facility] [address] [id number] [address] [place] [address], [place] [address] Jan, [facility] [address] [id number] [address] [place] [address], [place] [address] Jan, [facility] [address] [id number] [address] [place] [address], [place] [address] Jan, [facility] [address] [id number] [address] [place] [address], [place] [address] December, [facility] [address] [id number] [address] [place] [address], [place] [address] December, [facility] [address] [id number] [address] [place] [address], [place] [address] December, [facility] [address] [id number] [address] [place] [address], [place] [address] December, [facility] [address] [id number] [address] [place] [address], [place] [address] December, [facility] [address] [id number] [address] [place] [address], [place] [address] December, [facility] [address] [id number] [address] [place] [address], [place] [address] Nov, [facility] [address] [id number] [facility] [place] [address] Nov, [facility] [address] [id number] [facility] [place] [address] Nov, [facility] [address] [id number] [facility] [place] [address] Nov, [facility] [address] [id number] [address] [place] [address], [place] [address] Nov, [facility] [address] [id number] [address] [place] [address], [place] [address] Nov, [facility] [address] [id number] [address] [place] [address], [place] [address] Oct, [facility] [address] [id number] [address] [place] [address], [place] [address] Oct, [facility] [address] [id number] [address] [place] [address], [place] [address] Oct, [facility] [address] [id number] [address] [place] [address], [place] [address] Oct, [facility] [address] [id number] [address] [place] [address], [place] [address] Sep, [facility] [address] [id number] [address] [place] [address], [place] [address] Sep, [facility] [address] [id number] [address] [place] [address], [place] [address] Sep, [facility] [address] [id number] [address] [place] [address], [place] [address] Sep, [facility] [address] [id number] [address] [place] [address], [place] [address] Sep, [facility] [address] [id number] [address] [place] [address], [place] [address] Sep, [facility] [address] [id number] [address] [place] [address], [place] [address] Sep, [facility] [address] [id number] [address] [place] [address], [place] [address] Sep, [facility] [address] [id number] [address] [place] [address], [place] [address] Sep, [facility] [address] [id number] [address] [place] [address], [place] [address] Sep, [facility] [address] [id number] [address] [place] [address], [place] [address] Aug, [facility] [address] [id number] [address] [place] [address], [place] [address] Aug, [facility] [address] [id number] [address] [place] [address], [place] [address] Aug, [facility] [address] [id number] [address] [place] [address], [place] [address] Aug, [facility] [address] [id number] [address] [place] [address], [place] [address] Aug, [facility] [address] [id number] [address] [place] [address], [place] [address] Aug, [facility] [address] [id number] [address] [place] [address], [place] [address] Jul, [facility] [address] [id number] [address] [place] [address], [place] [address] Jul, [facility] [address] [id number] [address] [place] [address], [place] [address] Jul, [facility] [address] [id number] [address] [place] [address], [place] [address] Jul, [facility] [address] [id number] [address] [place] [address], [place] [address] Jul, [facility] [address] [id number] [address] [place] [address], [place] [address] Jul, [facility] [address] [id number] [address] [place] [address], [place] [address] Jul, [facility] [address] [id number] [address] [place] [address], [place] [address] Jul, [facility] [address] [id number] [address] [place] [address], [place] [address] Jul, [facility] [address] [id number] [address] [place] [address], [place] [address] Jul, [facility] [address] [id number] [address] [place] [address], [place] [address] Jun, [facility] [address] [id number] [address] [place] [address], [place] [address] Jun, [facility] [address] [id number] [address] [place] [address], [place] [address] Jun, [facility] [address] [id number] [address] [place] [address], [place] [address] Jun, [facility] [address] [id number] [address] [place] [address], [place] [address] May, [facility] [address] [id number] [address] [place] [address], [place] [address] May, [facility] [address] [id number] [address] [place] [address], [place] [address] Apr, [facility] [address] [id number] [address] [place] [address], [place] [address] Apr, [facility] [address] [id number] [address] [place] [address], [place] [address] 05 Apr, 2013 [facility] [address] [id number] [address] [place] [address], [place] [address] Mar, [facility] [address] [id number] [address] [place] [address], [place] [address] Mar, [facility] [address] [id number] [address] [place] [address], [place] [address] Jan, [facility] [address] [id number] [address] [place] [address], [place] [address] Jan, [facility] [address] [id number] [address] [place] [address], [place] [address] Jan, [facility] [address] [id number] [address] [place] [address], [place] [address] Jan, [facility] [address] [id number] [address] [place] [address], [place] [address] 15 Jan, 2013 [facility] [address] [id number] [address] [place] [address], [place] [address] Jan, [facility] [address] [id number] [address] [place] [address], [place] [address] Jan, [facility] [address] [id number] [address] [place] [address], [place] [address] December, [facility] [address] [id number] [address] [place] [address], [place] [address] December, [facility] [address] [id number] [address] [place] [address], [place] [address] December, [facility] [address] [id number] [address] [place] [address], [place] [address] Nov, [facility] [address] [id number] [address] [place] [address], [place] [address] Nov, [facility] [address] [id number] [address] [place] [address], [place] [address] Oct, [facility] [address] [id number] [address] [place] [address], [place] [address] Oct, [facility] [address] [id number] [address] [place] [address], [place] [address] Sep, [facility] [address] [id number] [address] [place] [address], [place] [address] Sep, [facility] [address] [id number] [address] [place] [address], [place] [address] Aug, [facility] [address] [id number] [address] [place] [address], [place] [address] Aug, [facility] [address] [id number] [address] [place] [address], [place] [address] Jul, [facility] [address] [id number] [address] [place] [address], [place] [address] Jul, [facility] [address] [id number] [address] [place] [address], [place] [address] Jul, [facility] [address] [id number] [address] [place] [address], [place] [address] Jul, [facility] [address] [id number] [address] [place] [address], [place] [address] Jul, [facility] [address] [id number] [address] [place] [address], [place] [address] Jul, [facility] [address] [id number] [address] [place] [address], [place] [address] Jul, [facility] [address] [id number] [address] [place] [address], [place] [address] Jul, [facility] [address] [id number] [address] [place] [address], [place] [address] Jun, [facility] [address] [id number] [address] [place] [address], [place] [address] Jun, [facility] [address] [id number] [address] [place] [address], [place] [address] Jun, [facility] [address] [id number] [address] [place] [address], [place] [address] Jun, [facility] [address] [id number] [address] [place] [address], [place] [address] Jun, [facility] [address] [id number] [address] [place] [address], [place] [address] Jun, [facility] [address] [id number] [address] [place] [address], [place] [address] Jun, [facility] [address] [id number] [address] [place] [address], [place] [address] Jun, [facility] [address] [id number] [address] [place] [address], [place] [address] Jun, [facility] [address] [id number] [address] [place] [address], [place] [address] Jun, [facility] [address] [id number] [address] [place] [address], [place] [address] May, [facility] [address] [id number] [address] [place] [address], [place] [address] May, [facility] [address] [id number] [address] [place] [address], [place] [address] May, [facility] [address] [id number] [address] [place] [address], [place] [address] Apr, [facility] [address] [id number] [address] [place] [address], [place] [address] Apr, [facility] [address] [id number] [address] [place] [address] Mar, [facility] [address] [id number] [address] [place] [address] Mar, [facility] [address] [id number] [address] [place] [address] Jan, [facility] [address] [id number] [address] [place] [address], [place] [address] Jan, [facility] [address] [id number] [address] [place] [address] Jan, [facility] [address] [id number] [address] [place] [address] 14 Jan, 2012 [facility] [address] [id number] [address] [place] [address] Jan, [facility] [address] [id number] [address] [place] [address], [place] [address] December, [facility] [address] [id number] [address] [place] [address], [place] [address] December, [facility] [address] [id number] [address] [place] [address], [place] [address] Nov, [facility] [address] [id number] [address] [place] [address], [place] [address] Nov, [facility] [address] [id number] [address] [place] [address], [place] [address] Oct, [facility] [address] [id number] [address] [place] [address], [place] [address] Oct, [facility] [address] [id number] [address] [place] [address], [place] [address] Oct, [facility] [address] [id number] [address] [place] [address], [place] [address] Oct, [facility] [address] [id number] [address] [place] [address], [place] [address] Sep, [facility] [address] [id number] [address] [place] [address], [place] [address] Sep, [facility] [address] [id number] [address] [place] [address], [place] [address] Sep, [facility] [address] [id number] [address] [place] [address], [place] [address] Sep, [facility] [address] [id number] [address] [place] [address], [place] [address] Sep, [facility] [address] [id number] [address] [place] [address], [place] [address] Sep, [facility] [address] [id number] [address] [place] [address], [place] [address] Sep, [facility] [address] [id number] [address] [place] [address], [place] [address] 15 Sep, 2011 [facility] [address] [id number] [address] [place] [address], [place] [address] 10 Sep, 2011 [facility] [address] [id number] [address] [place] [address], [place] [address] 27 Aug, 2011 [facility] [address] [id number] [address] [place] [address], [place] [address] Aug, [facility] [address] [id number] [address] [place] [address], [place] [address] 30 Jul, 2011 [facility] [address] [id number] [address] [place] [address], [place] [address] Jul, [facility] [address] [id number] [address] [place] [address], [place] [address] Jul, [facility] [address] [id number] [address] [place] [address], [place] [address] Jul, [facility] [address] [id number] [address] [place] [address], [place] [address] Jul, [facility] [address] [id number] [address] [place] [address], [place] [address] Jun, [facility] [address] [id number] [address] [place] [address], [place] [address] Jun, [facility] [address] [id number] [address] [place] [address], [place] [address] Jun, [facility] [address] [id number] [address] [place] [address], [place] [address] Jun, [facility] [address] [id number] [address] [place] [address], [place] [address] Jun, [facility] [address] [id number] [address] [place] [address], [place] [address] May, [facility] [address] [id number] [address] [place] [address] 31 Jul, 2010 [facility] [address] [facility] [id number] [address] [place] [address] Jul, [facility] [address] [facility] [id number] [address] [place] [address] Jul, [facility] [address] [facility] [id number] [address] [place] [address] Jul, [facility] [address] [facility] [id number] [address] [place] [address] Jun, [facility] [address] [facility] [id number] [address] [place] [address] Jun, [facility] [address] [facility] [id number] [address] [place] [address] May, IMMUNIZATIONS No Known Immunizations SOCIAL HISTORY [...]
--- OUTSIDE RECORDS SUMMARY | 2020-01-03 21:20 | XMS REPORT ---
Author Author Stevie QUIÑONEZ Organization [facility] Address [address] [place] [address] Care Team Providers Care Delivery Technician Name Role Phone SUSAN QUIÑONEZ Unavailable PROBLEMS Type Condition ICD9-CM Code NDB79-NA Code Onset Dates Condition S tatus SNOMED Code Problem Depressive disorder, not elsewhere classified F32. 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 Active 312597759 Problem Status post amputation of toe of right foot Z89.42 1 Active 769793138 Problem Peripheral vascular disease I73.9 Ac tive 979536807 Problem Chronic hepatitis C without hepatic coma B18.2 Active 884437213 Problem BMI 32.0-32.9,adult Z68.32 Active 445360681 Problem Venous insufficiency I87.2 Active 73212339 Problem Type 2 diabetes mellitus with other specified complication E11.69 Active [id number] Problem Long-term insulin use Z79.4 Active 453139525 Problem Osteomyelitis M86.9 Active 863326 00 Problem Acquired absence of right great toe Z89.411 Active 242499449 Problem 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 Active 396964493 Problem Coronary artery disease invo lving [place] coronary artery of [place] heart without angina pectoris I25.10 Active 1641 831091061 Problem Coronary artery disease invo lving [place] coronary artery of [place] heart without angina pectoris I25.10 Active 1641 [id number] ALLERGIES No Information ENCOUNTERS Encounter Location Date Diagnosis [facility] [address] [facility] [id number] [address] [place] [id number] 05 Jun, 2019 [facility] [address] [facility] [id number] [address] [place] [address] Jun, Type 2 diabetes mellitus wit h other specified complication E11.69 ; Interstitial pulmonary fibrosis J84.10 and Venous insufficiency I87.2 [facility] [address] [id number] [address] [place] [address] 11 May, 2019 Coronary artery disease invo lving [place] coronary artery of [place] heart without angina pectoris I25.10 ; Type 2 diabetes mellitus with other specified complication E11.69 and Long-term insulin use Z79.4 [facility] [address] [id number] [address] [place] [id number] 07 May, 2019 [facility] [address] [id number] [address] [place] [address] 02 May, 2019 [facility] [address] [facility] [id number] [address] [place] [address] 27 Apr, 2019 Type 2 diabetes mellitus wit h other specified complication E11.69 ; Coronary artery disease involving [place] coronary artery of [place] heart without angina pectoris I25.10 and Encounter for immunization Z23 [facility] [address] [id number] [address] [place] [address] Apr, [facility] [address] [facility] [id number] [address] [place] [address] Apr, [facility] [address] [facility] [id number] [address] [place] [address] December, Chronic hepatitis C without hepatic coma B18.2 and Type 2 diabetes mellitus with other specified complication E11.69 [facility] [address] [facility] [id number] [address] [place] [address] Nov, Abnormal PSA R97.20 [facility] [address] [id number] [address] [place] [address] Nov, [facility] [address] [facility] [id number] [address] [place] [address] Nov, Encounter for Medicare annua l wellness exam Z00.00 ; Type 2 diabetes mellitus with other specified complication E11.69 ; Peripheral vascular disease I73.9 ; Encounter for immunization Z23 ; Liver transplant recipient Z94.4 ; Acquired absence of right great toe Z89.411 ; 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 and Routine adult health maintenance Z00.00 [facility] [address] [place] [id number] [address] [place] [address] Nov, Medicare annual wellness vis it, initial Z00.00 ; Type 2 diabetes mellitus with other specified complication E11.69 ; Depressive disorder, not elsewhere classified F32.9 ; Peripheral vascular disease I73.9 ; Encounter for immunization Z23 ; Liver transplant recipient Z94.4 ; Status post amputation of toe of right foot Z89.421 and BMI 32.0-32.9,adult Z68.32 [facility] [address] [facility] [id number] [address] [place] [address] 13 Oct, 2017 [facility] [address] [place] [id number] [address] [place] [address] Oct, [facility] [address] [place] [id number] [address] [place] [address] Oct, Type 2 diabetes mellitus wit h other specified complication E11.69 ; Chronic hepatitis C without hepatic coma B18.2 and Depressive disorder, not elsewhere classified F32.9 [facility] [address] [facility] [id number] [address] [place] [address] Sep, [facility] [address] [place] [id number] [address] [place] [address] Sep, [facility] [address] [place] [id number] [address] [place] [address] Sep, [facility] [id number] [place] [id number] Sep, Diabetes E11.9 [facility] [address] [facility] [id number] [address] [place] [address] Sep, [employer] [address] [place] [id number] Sep Peripheral vascular disease I73.9 ; 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 ; Status post amputation of toe of right foot Z89.421 ; Type 2 diabetes mellitus with other specified complication E11.69 and Liver transplant recipient Z94.4 [facility] [id number] [id number] 16 Sep, 2017 [employer] [address] [id number] 13 Sep Status post amputation of toe of right foot Z89.421 ; 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 ; Osteomyelitis M86.9 ; Diabetes E11.9 ; Liver transplant recipient Z94.4 and History of drug abuse Z87.898 [facility] [address] [id number] [id number] 06 Sep, 2017 [place] [address] [place] [id number] [address] [place] [address] Jan, [place] [id number] [place] [address] Jan, [place] [address] [place] [id number] [address] [place] [address] December, Diabetes E11.9 ; Back pain M 54.9 and Anemia due to other cause D64.89 [place] [address] [place] [id number] [address] [place] [address] December, Osteomyelitis, unspecified M 86.9 [place] [address] [place] [id number] [address] [place] [address] December, [place] [address] [place] [id number] [address] [place] [address] December, Diabetes E11.9 [place] [address] [facility] [id number] [address] [place] [address] 18 Feb, 2016 Seborrheic keratoses L82.1 a nd Abscess of neck L02.11 [place] [address] [facility] [id number] [address] [place] [address] 15 Feb, 2016 Sebaceous cyst L72.3 [facility] [address] [id number] [address] [place] [address] 13 Feb, 2016 Abscess, neck L02.11 [facility] [address] [id number] [address] [place] [address] 18 Oct, 2015 Diabetes E11.9 [facility] [address] [facility] [id number] [address] [place] [address] Oct, Back pain M54.9 [facility] [address] [id number] [address] [place] [address] Sep, Back pain M54.9 [facility] [address] [id number] [address] [place] [address] Sep, Back pain M54.9 [facility] [address] [facility] [id number] [address] [place] [address] Aug, Back pain M54.9 [facility] [address] [facility] [id number] [address] [place] [address] Aug, Diabetes E11.9 and Liver tra nsplant recipient Z94.4 [facility] [address] [facility] [id number] [address] [place] [address] Aug, Back pain M54.9 [facility] [address] [facility] [id number] [address] [place] [address] 31 Jul, 2015 [facility] [address] [facility] [id number] [address] [place] [address] Jul, [facility] [address] [facility] [id number] [address] [place] [address] Jul, [facility] [address] [facility] [id number] [address] [place] [address] Jun, Depressive disorder, not els ewhere classified F32.9 [facility] [address] [id number] [address] [place] [address] Jun, Diabetes E11.9 ; Depressive disorder, not elsewhere classified F32.9 and Back pain M54.9 [facility] [address] [id number] [address] [place] [address] Jun, [facility] [address] [id number] [address] [place] [address] Jun, [facility] [address] [id number] [address] [place] [address] May, [facility] [address] [id number] [address] [place] [address] May, [facility] [address] [id number] [address] [place] [address] Apr, [facility] [address] [id number] [address] [place] [id number] Apr, [facility] [address] [id number] [address] [place] [address] Mar, [facility] [address] [id number] [address] [place] [address] Mar, [facility] [address] [id number] [address] [place] [id number] Mar, Dental examination V72.2 [facility] [address] [id number] [address] [place] [phone] Jan, [facility] [address] [id number] [address] [place] [address] Jan, [facility] [address] [id number] [address] [place] [address] Jan, [facility] [address] [id number] [address] [place] [address] Jan, [facility] [address] [id number] [address] [place] [address] Jan, [facility] [address] [id number] [address] [place] [address] December, [facility] [address] [id number] [address] [place] [address] December, [facility] [address] [id number] [address] [place] [id number] December, Diabetes mellitus type 2, un controlled 250.02 and Osteomyelitis of ankle or foot 730.27 [facility] [address] [id number] [address] [place] [address] December, [facility] [address] [id number] [address] [place] [id number] Nov, [facility] [address] [id number] [address] [place] [address] Nov, [facility] [address] [id number] [address] [place] [id number] Oct, [facility] [address] [id number] [address] [place] [address] Oct, [facility] [address] [id number] [address] [place] [id number] Oct, [facility] [address] [id number] [address] [place] [id number] Oct, [facility] [address] [id number] [address] [place] [address] Sep, [facility] [address] [id number] [address] [place] [id number] Sep, [facility] [address] [id number] [address] [place] [id number] Sep, [facility] [address] [id number] [address] [place] [address] Sep, [facility] [address] [id number] [address] [place] [id number] Aug, [facility] [address] [id number] [address] [place] [id number] Aug, [facility] [address] [id number] [address] [place] [address], [place] [address] Aug, [facility] [address] [id number] [address] [place] [address], [place] [address] Aug, [facility] [address] [id number] [address] [place] [address], [place] [address] Aug, [facility] [address] [id number] [address] [place] [address], [place] [address] Aug, [facility] [address] [id number] [address] [place] [address], [place] [address] Jul, [facility] [address] [id number] [address] [place] [address], [place] [address] Jul, [facility] [address] [id number] [address] [place] [address], [place] [address] Jul, [facility] [address] [id number] [address] [place] [address], [place] [address] Jul, [facility] [address] [id number] [address] [place] [address], [place] [address] Jul, [facility] [address] [id number] [address] [place] [address], [place] [address] Jul, [facility] [address] [id number] [address] [place] [address], [place] [address] Jun, [facility] [address] [id number] [address] [place] [address], [place] [address] Jun, [facility] [address] [id number] [address] [place] [address], [place] [address] Jun, [facility] [address] [id number] [address] [place] [address], [place] [address] Jun, [facility] [address] [id number] [address] [place] [address], [place] [address] May, [facility] [address] [id number] [address] [place] [address], [place] [address] May, [facility] [address] [id number] [address] [place] [address], [place] [address] May, [facility] [address] [id number] [address] [place] [address], [place] [address] May, [facility] [address] [id number] [address] [place] [address], [place] [address] May, [facility] [address] [id number] [address] [place] [address], [place] [address] May, [facility] [address] [id number] [address] [place] [address], [place] [address] Apr, [facility] [address] [id number] [address] [place] [address], [place] [address] Apr, [facility] [address] [id number] [address] [place] [address], [place] [address] Apr, [facility] [address] [id number] [address] [place] [address], [place] [address] Apr, [facility] [address] [id number] [address] [place] [address], [place] [address] Mar, [facility] [address] [id number] [address] [place] [address], [place] [address] Mar, [facility] [address] [id number] [address] [place] [address], [place] [address] Mar, [facility] [address] [id number] [address] [place] [address], [place] [address] Mar, [facility] [address] [id number] [address] [place] [address], [place] [address] Jan, [facility] [address] [id number] [address] [place] [address], [place] [address] Jan, [facility] [address] [id number] [address] [place] [address], [place] [address] Jan, [facility] [address] [id number] [address] [place] [address], [place] [address] Jan, [facility] [address] [id number] [address] [place] [address], [place] [address] Jan, [facility] [address] [id number] [address] [place] [address], [place] [address] Jan, [facility] [address] [id number] [address] [place] [address], [place] [address] Jan, [facility] [address] [id number] [address] [place] [address], [place] [address] Jan, [facility] [address] [id number] [address] [place] [address], [place] [address] Jan, [facility] [address] [id number] [address] [place] [address], [place] [address] Jan, [facility] [address] [id number] [address] [place] [address], [place] [address] Jan, [facility] [address] [id number] [address] [place] [address], [place] [address] Jan, [facility] [address] [id number] [address] [place] [address], [place] [address] December, [facility] [address] [id number] [address] [place] [address], [place] [address] December, [facility] [address] [id number] [address] [place] [address], [place] [address] December, [facility] [address] [id number] [address] [place] [address], [place] [address] December, [facility] [address] [id number] [address] [place] [address], [place] [address] December, [facility] [address] [id number] [address] [place] [address], [place] [address] December, [facility] [address] [id number] [address] [place] [address], [place] [address] Nov, [facility] [address] [id number] [facility] [place] [address] Nov, [facility] [address] [id number] [facility] [place] [address] Nov, [facility] [address] [id number] [facility] [place] [address] Nov, [facility] [address] [id number] [address] [place] [address], [place] [address] Nov, [facility] [address] [id number] [address] [place] [address], [place] [address] Nov, [facility] [address] [id number] [address] [place] [address], [place] [address] Oct, [facility] [address] [id number] [address] [place] [address], [place] [address] Oct, [facility] [address] [id number] [address] [place] [address], [place] [address] Oct, [facility] [address] [id number] [address] [place] [address], [place] [address] Oct, [facility] [address] [id number] [address] [place] [address], [place] [address] Sep, [facility] [address] [id number] [address] [place] [address], [place] [address] Sep, [facility] [address] [id number] [address] [place] [address], [place] [address] Sep, [facility] [address] [id number] [address] [place] [address], [place] [address] Sep, [facility] [address] [id number] [address] [place] [address], [place] [address] Sep, [facility] [address] [id number] [address] [place] [address], [place] [address] Sep, [facility] [address] [id number] [address] [place] [address], [place] [address] Sep, [facility] [address] [id number] [address] [place] [address], [place] [address] Sep, [facility] [address] [id number] [address] [place] [address], [place] [address] Sep, [facility] [address] [id number] [address] [place] [address], [place] [address] Sep, [facility] [address] [id number] [address] [place] [address], [place] [address] Aug, [facility] [address] [id number] [address] [place] [address], [place] [address] Aug, [facility] [address] [id number] [address] [place] [address], [place] [address] Aug, [facility] [address] [id number] [address] [place] [address], [place] [address] Aug, [facility] [address] [id number] [address] [place] [address], [place] [address] Aug, [facility] [address] [id number] [address] [place] [address], [place] [address] Aug, [facility] [address] [id number] [address] [place] [address], [place] [address] Jul, [facility] [address] [id number] [address] [place] [address], [place] [address] Jul, [facility] [address] [id number] [address] [place] [address], [place] [address] Jul, [facility] [address] [id number] [address] [place] [address], [place] [address] Jul, [facility] [address] [id number] [address] [place] [address], [place] [address] Jul, [facility] [address] [id number] [address] [place] [address], [place] [address] Jul, [facility] [address] [id number] [address] [place] [address], [place] [address] Jul, [facility] [address] [id number] [address] [place] [address], [place] [address] Jul, [facility] [address] [id number] [address] [place] [address], [place] [address] Jul, [facility] [address] [id number] [address] [place] [address], [place] [address] Jul, [facility] [address] [id number] [address] [place] [address], [place] [address] Jun, [facility] [address] [id number] [address] [place] [address], [place] [address] Jun, [facility] [address] [id number] [address] [place] [address], [place] [address] Jun, [facility] [address] [id number] [address] [place] [address], [place] [address] Jun, [facility] [address] [id number] [address] [place] [address], [place] [address] May, [facility] [address] [address] [id number] [address] [place] [address], [place] [address] May, [facility] [address] [id number] [address] [place] [address], [place] [address] Apr, [facility] [address] [id number] [address] [place] [address], [place] [address] Apr, [facility] [address] [id number] [address] [place] [address], [place] [address] 05 Apr, 2013 [facility] [address] [id number] [address] [place] [address], [place] [address] Mar, [facility] [address] [id number] [address] [place] [address], [place] [address] Mar, [facility] [address] [id number] [address] [place] [address], [place] [address] Jan, [facility] [address] [id number] [address] [place] [address], [place] [address] Jan, [facility] [address] [id number] [address] [place] [address], [place] [address] Jan, [facility] [address] [id number] [address] [place] [address], [place] [address] Jan, [facility] [address] [id number] [address] [place] [address], [place] [address] 15 Jan, 2013 [facility] [address] [id number] [address] [place] [address], [place] [address] Jan, [facility] [address] [id number] [address] [place] [address], [place] [address] Jan, [facility] [address] [id number] [address] [place] [address], [place] [address] December, [facility] [address] [id number] [address] [place] [address], [place] [address] December, [facility] [address] [id number] [address] [place] [address], [place] [address] December, [facility] [address] [id number] [address] [place] [address], [place] [address] Nov, [facility] [address] [id number] [address] [place] [address], [place] [address] Nov, [facility] [address] [id number] [address] [place] [address], [place] [address] Oct, [facility] [address] [id number] [address] [place] [address], [place] [address] Oct, [facility] [address] [id number] [address] [place] [address], [place] [address] Sep, [facility] [address] [id number] [address] [place] [address], [place] [address] Sep, [facility] [address] [id number] [address] [place] [address], [place] [address] Aug, [facility] [address] [id number] [address] [place] [address], [place] [address] Aug, [facility] [address] [id number] [address] [place] [address], [place] [address] Jul, [facility] [address] [id number] [address] [place] [address], [place] [address] Jul, [facility] [address] [id number] [address] [place] [address], [place] [address] Jul, [facility] [address] [id number] [address] [place] [address], [place] [address] Jul, [facility] [address] [id number] [address] [place] [address], [place] [address] Jul, [facility] [address] [id number] [address] [place] [address], [place] [address] Jul, [facility] [address] [id number] [address] [place] [address], [place] [address] Jul, [facility] [address] [id number] [address] [place] [address], [place] [address] Jul, [facility] [address] [id number] [address] [place] [address], [place] [address] Jun, [facility] [address] [id number] [address] [place] [address], [place] [address] Jun, [facility] [address] [id number] [address] [place] [address], [place] [address] Jun, [facility] [address] [id number] [address] [place] [address], [place] [address] Jun, [facility] [address] [id number] [address] [place] [address], [place] [address] Jun, [facility] [address] [id number] [address] [place] [address], [place] [address] Jun, [facility] [address] [id number] [address] [place] [address], [place] [address] Jun, [facility] [address] [id number] [address] [place] [address], [place] [address] Jun, [facility] [address] [id number] [address] [place] [address], [place] [address] Jun, [facility] [address] [id number] [address] [place] [address], [place] [address] Jun, [facility] [address] [id number] [address] [place] [address], [place] [address] May, [facility] [address] [id number] [address] [place] [address], [place] [address] May, [facility] [address] [id number] [address] [place] [address], [place] [address] May, [facility] [address] [id number] [address] [place] [address], [place] [address] Apr, [facility] [address] [id number] [address] [place] [address], [place] [address] Apr, [facility] [address] [id number] [address] [place] [id number] Mar, [facility] [address] [id number] [address] [place] [address] Mar, [facility] [address] [id number] [address] [place] [phone] Jan, [facility] [address] [id number] [address] [place] [address], [place] [address] Jan, [facility] [address] [id number] [address] [place] [id number] Jan, [facility] [address] [id number] [address] [place] [id number] 14 Jan, 2012 [facility] [address] [id number] [address] [place] [phone] Jan, [facility] [address] [id number] [address] [place] [address], [place] [address] December, [facility] [address] [id number] [address] [place] [address], [place] [address] December, [facility] [address] [id number] [address] [place] [address], [place] [address] Nov, [facility] [address] [id number] [address] [place] [address], [place] [address] Nov, [facility] [address] [id number] [address] [place] [address], [place] [address] Oct, [facility] [address] [id number] [address] [place] [address], [place] [address] Oct, [facility] [address] [id number] [address] [place] [address], [place] [address] Oct, [facility] [address] [id number] [address] [place] [address], [place] [address] Oct, [facility] [address] [id number] [address] [place] [address], [place] [address] Sep, [facility] [address] [id number] [address] [place] [address], [place] [address] Sep, [facility] [address] [id number] [address] [place] [address], [place] [address] Sep, [facility] [address] [id number] [address] [place] [address], [place] [address] Sep, [facility] [address] [id number] [address] [place] [address], [place] [address] Sep, [facility] [address] [id number] [address] [place] [address], [place] [address] Sep, [facility] [address] [id number] [address] [place] [address], [place] [address] Sep, [facility] [address] [id number] [address] [place] [address], [place] [address] 15 Sep, 2011 [facility] [address] [id number] [address] [place] [address], [place] [address] 10 Sep, 2011 [facility] [address] [id number] [address] [place] [address], [place] [address] 27 Aug, 2011 [facility] [address] [id number] [address] [place] [address], [place] [address] Aug, [facility] [address] [id number] [address] [place] [address], [place] [address] 30 Jul, 2011 [facility] [address] [id number] [address] [place] [address], [place] [address] Jul, [facility] [address] [id number] [address] [place] [address], [place] [address] Jul, [facility] [address] [id number] [address] [place] [address], [place] [address] Jul, [facility] [address] [id number] [address] [place] [address], [place] [address] Jul, [facility] [address] [id number] [address] [place] [address], [place] [address] Jun, [facility] [address] [id number] [address] [place] [address], [place] [address] Jun, [facility] [address] [id number] [address] [place] [address], [place] [address] Jun, [facility] [address] [id number] [address] [place] [address], [place] [address] Jun, [facility] [address] [id number] [address] [place] [address], [place] [address] Jun, [facility] [address] [id number] [address] [place] [address], [place] [address] May, [facility] [address] [id number] [address] [place] [id number] 31 Jul, 2010 [facility] [address] [facility] [id number] [address] [place] [id number] Jul, [facility] [address] [facility] [id number] [address] [place] [id number] Jul, [facility] [address] [facility] [id number] [address] [place] [id number] Jul, [facility] [address] [facility] [id number] [address] [place] [id number] Jun, [facility] [address] [facility] [id number] [address] [place] [id number] Jun, [facility] [address] [facility] [id number] [address] [place] [phone] May, IMMUNIZATIONS No Known Immunizations SOCIAL HISTORY [...]
--- OUTSIDE RECORDS SUMMARY | 2020-01-03 21:20 | XMS REPORT ---
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 Active 142494914 Problem Status post amputation of toe of right foot Z89.42 1 Active 078022284 Problem Peripheral vascular disease I73.9 Ac tive 085402117 Problem Chronic hepatitis C without hepatic coma B18.2 Active 619983784 Problem BMI 32.0-32.9,adult Z68.32 Active 311369850 Problem Venous insufficiency I87.2 Active 02253147 Problem Type 2 diabetes mellitus with other specified complication E11.69 Active 35258121190476 Problem Long-term insulin use Z79.4 Active 010681886 Problem Osteomyelitis M86.9 Active 616315 00 Problem Acquired absence of right great toe Z89.411 Active 229639542 Problem 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 Active 919175846 Problem 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 Active 1641 419108750 Problem 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 Active 1641 [id number] ALLERGIES No Information ENCOUNTERS Encounter Location Date Diagnosis [facility] [address] [facility] [id number] [address] [place] [address] 05 Jun, 2019 [facility] [address] [facility] [id number] [address] [place] [address] Jun, Type 2 diabetes mellitus wit h other specified complication E11.69 ; Interstitial pulmonary fibrosis J84.10 and Venous insufficiency I87.2 [facility] [address] [id number] [address] [place] [address] 11 May, 2019 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 ; Type 2 diabetes mellitus with other specified complication E11.69 and Long-term insulin use Z79.4 [facility] [address] [id number] [address] [place] [address] 07 May, 2019 [facility] [address] [id number] [address] [place] [address] 02 May, 2019 [facility] [address] [facility] [id number] [address] [place] [address] 27 Apr, 2019 Type 2 diabetes mellitus wit h other specified complication E11.69 ; Coronary artery disease involving ruby coronary artery of ruby heart without angina pectoris I25.10 and Encounter for immunization Z23 [facility] [address] [id number] [address] [place] [address] Apr, [facility] [address] [facility] [id number] [address] [place] [address] Apr, [facility] [address] [facility] [id number] [address] [place] [address] December, Chronic hepatitis C without hepatic coma B18.2 and Type 2 diabetes mellitus with other specified complication E11.69 [facility] [address] [facility] [id number] [address] [place] [address] Nov, Abnormal PSA R97.20 [facility] [address] [id number] [address] [place] [address] Nov, [facility] [address] [facility] [id number] [address] [place] [address] Nov, Encounter for Medicare annua l wellness exam Z00.00 ; Type 2 diabetes mellitus with other specified complication E11.69 ; Peripheral vascular disease I73.9 ; Encounter for immunization Z23 ; Liver transplant recipient Z94.4 ; Acquired absence of right great toe Z89.411 ; 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 and Routine adult health maintenance Z00.00 [facility] [address] [place] [id number] [address] [place] [address] Nov, Medicare annual wellness vis it, initial Z00.00 ; Type 2 diabetes mellitus with other specified complication E11.69 ; Depressive disorder, not elsewhere classified F32.9 ; Peripheral vascular disease I73.9 ; Encounter for immunization Z23 ; Liver transplant recipient Z94.4 ; Status post amputation of toe of right foot Z89.421 and BMI 32.0-32.9,adult Z68.32 [facility] [address] [facility] [id number] [address] [place] [address] 13 Oct, 2017 [facility] [address] [place] [id number] [address] [place] [address] Oct, [facility] [address] [place] [id number] [address] [place] [address] Oct, Type 2 diabetes mellitus wit h other specified complication E11.69 ; Chronic hepatitis C without hepatic coma B18.2 and Depressive disorder, not elsewhere classified F32.9 [facility] [address] [facility] [id number] [address] [place] [address] Sep, [facility] [address] [place] [id number] [address] [place] [address] Sep, [facility] [address] [place] [id number] [address] [place] [address] Sep, [facility] [id number] [place] [id number] Sep, Diabetes E11.9 [facility] [address] [facility] [id number] [address] [place] [address] Sep, [facility] [address] [place] [id number] Sep Peripheral vascular disease I73.9 ; 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 ; Status post amputation of toe of right foot Z89.421 ; Type 2 diabetes mellitus with other specified complication E11.69 and Liver transplant recipient Z94.4 [facility] [id number] [place] [id number] 16 Sep, 2017 [facility] [address] [place] [id number] 13 Sep Status post amputation of toe of right foot Z89.421 ; 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 ; Osteomyelitis M86.9 ; Diabetes E11.9 ; Liver transplant recipient Z94.4 and History of drug abuse Z87.898 [facility] [address] [id number] [id number] 06 Sep, 2017 [place] [address] [place] [id number] [address] [place] [address] Jan, [place] [id number] [place] [address] Jan, [place] [address] [place] [id number] [address] [place] [address] December, Diabetes E11.9 ; Back pain M 54.9 and Anemia due to other cause D64.89 [place] [address] [place] [id number] [address] [place] [address] December, Osteomyelitis, unspecified M 86.9 [place] [address] [place] [id number] [address] [place] [address] December, [place] [address] [place] [id number] [address] [place] [address] December, Diabetes E11.9 [place] [address] [facility] [id number] [address] [place] [address] 18 Feb, 2016 Seborrheic keratoses L82.1 a nd Abscess of neck L02.11 [place] [address] [facility] [id number] [address] [place] [address] 15 Feb, 2016 Sebaceous cyst L72.3 [facility] [address] [id number] [address] [place] [address] 13 Feb, 2016 Abscess, neck L02.11 [facility] [address] [id number] [address] [place] [address] 18 Oct, 2015 Diabetes E11.9 [facility] [address] [facility] [id number] [address] [place] [address] Oct, Back pain M54.9 [facility] [address] [id number] [address] [place] [address] Sep, Back pain M54.9 [facility] [address] [id number] [address] [place] [address] Sep, Back pain M54.9 [facility] [address] [facility] [id number] [address] [place] [address] Aug, Back pain M54.9 [facility] [address] [facility] [id number] [address] [place] [address] Aug, Diabetes E11.9 and Liver tra nsplant recipient Z94.4 [facility] [address] [facility] [id number] [address] [place] [address] Aug, Back pain M54.9 [facility] [address] [facility] [id number] [address] [place] [address] 31 Jul, 2015 [facility] [address] [facility] [id number] [address] [place] [address] Jul, [facility] [address] [facility] [id number] [address] [place] [address] Jul, [facility] [address] [facility] [id number] [address] [place] [address] Jun, Depressive disorder, not els ewhere classified F32.9 [facility] [address] [id number] [address] [place] [address] Jun, Diabetes E11.9 ; Depressive disorder, not elsewhere classified F32.9 and Back pain M54.9 [facility] [address] [id number] [address] [place] [address] Jun, [facility] [address] [id number] [address] [place] [address] Jun, [facility] [address] [id number] [address] [place] [address] May, [facility] [address] [id number] [address] [place] [address] May, [facility] [address] [id number] [address] [place] [address] Apr, [facility] [address] [id number] [address] [place] [address] Apr, [facility] [address] [id number] [address] [place] [address] Mar, [facility] [address] [id number] [address] [place] [address] Mar, [facility] [address] [id number] [address] [place] [id number] Mar, Dental examination V72.2 [facility] [address] [id number] [address] [place] [address] Jan, [facility] [address] [id number] [address] [place] [address] Jan, [facility] [address] [id number] [address] [place] [address] Jan, [facility] [address] [id number] [address] [place] [address] Jan, [facility] [address] [id number] [address] [place] [address] Jan, [facility] [address] [id number] [address] [place] [address] December, [facility] [address] [id number] [address] [place] [address] December, [facility] [address] [id number] [address] [place] [address] December, Diabetes mellitus type 2, un controlled 250.02 and Osteomyelitis of ankle or foot 730.27 [facility] [address] [id number] [address] [place] [address] December, [facility] [address] [id number] [address] [place] [address] Nov, [facility] [address] [id number] [address] [place] [address] Nov, [facility] [address] [id number] [address] [place] [address] Oct, [facility] [address] [id number] [address] [place] [address] Oct, [facility] [address] [id number] [address] [place] [address] Oct, [facility] [address] [id number] [address] [place] [address] Oct, [facility] [address] [id number] [address] [place] [address] Sep, [facility] [address] [id number] [address] [place] [address] Sep, [facility] [address] [id number] [address] [place] [address] Sep, [facility] [address] [id number] [address] [place] [address] Sep, [facility] [address] [id number] [address] [place] [address] Aug, [facility] [address] [id number] [address] [place] [address] Aug, [facility] [address] [id number] [address] [place] [address], [place] [address] Aug, [facility] [address] [id number] [address] [place] [address], [place] [address] Aug, [facility] [address] [id number] [address] [place] [address], [place] [address] Aug, [facility] [address] [id number] [address] [place] [address], [place] [address] Aug, [facility] [address] [id number] [address] [place] [address], [place] [address] Jul, [facility] [address] [id number] [address] [place] [address], [place] [address] Jul, [facility] [address] [id number] [address] [place] [address], [place] [address] Jul, [facility] [address] [id number] [address] [place] [address], [place] [address] Jul, [facility] [address] [id number] [address] [place] [address], [place] [address] Jul, [facility] [address] [id number] [address] [place] [address], [place] [address] Jul, [facility] [address] [id number] [address] [place] [address], [place] [address] Jun, [facility] [address] [id number] [address] [place] [address], [place] [address] Jun, [facility] [address] [id number] [address] [place] [address], [place] [address] Jun, [facility] [address] [id number] [address] [place] [address], [place] [address] Jun, [facility] [address] [id number] [address] [place] [address], [place] [address] May, [facility] [address] [id number] [address] [place] [address], [place] [address] May, [facility] [address] [id number] [address] [place] [address], [place] [address] May, [facility] [address] [id number] [address] [place] [address], [place] [address] May, [facility] [address] [id number] [address] [place] [address], [place] [address] May, [facility] [address] [id number] [address] [place] [address], [place] [address] May, [facility] [address] [id number] [address] [place] [address], [place] [address] Apr, [facility] [address] [id number] [address] [place] [address], [place] [address] Apr, [facility] [address] [id number] [address] [place] [address], [place] [address] Apr, [facility] [address] [id number] [address] [place] [address], [place] [address] Apr, [facility] [address] [id number] [address] [place] [address], [place] [address] Mar, [facility] [address] [id number] [address] [place] [address], [place] [address] Mar, [facility] [address] [id number] [address] [place] [address], [place] [address] Mar, [facility] [address] [id number] [address] [place] [address], [place] [address] Mar, [facility] [address] [id number] [address] [place] [address], [place] [address] Jan, [facility] [address] [id number] [address] [place] [address], [place] [address] Jan, [facility] [address] [id number] [address] [place] [address], [place] [address] Jan, [facility] [address] [id number] [address] [place] [address], [place] [address] Jan, [facility] [address] [id number] [address] [place] [address], [place] [address] Jan, [facility] [address] [id number] [address] [place] [address], [place] [address] Jan, [facility] [address] [id number] [address] [place] [address], [place] [address] Jan, [facility] [address] [id number] [address] [place] [address], [place] [address] Jan, [facility] [address] [id number] [address] [place] [address], [place] [address] Jan, [facility] [address] [id number] [address] [place] [address], [place] [address] Jan, [facility] [address] [id number] [address] [place] [address], [place] [address] Jan, [facility] [address] [id number] [address] [place] [address], [place] [address] Jan, [facility] [address] [id number] [address] [place] [address], [place] [address] December, [facility] [address] [id number] [address] [place] [address], [place] [address] December, [facility] [address] [id number] [address] [place] [address], [place] [address] December, [facility] [address] [id number] [address] [place] [address], [place] [address] December, [facility] [address] [id number] [address] [place] [address], [place] [address] December, [facility] [address] [id number] [address] [place] [address], [place] [address] December, [facility] [address] [id number] [address] [place] [address], [place] [address] Nov, [facility] [address] [id number] [facility] [place] [address] Nov, [facility] [address] [id number] [facility] [place] [address] Nov, [facility] [address] [id number] [facility] [place] [address] Nov, [facility] [address] [id number] [address] [place] [address], [place] [address] Nov, [facility] [address] [id number] [address] [place] [address], [place] [address] Nov, [facility] [address] [id number] [address] [place] [address], [place] [address] Oct, [facility] [address] [id number] [address] [place] [address], [place] [address] Oct, [facility] [address] [id number] [address] [place] [address], [place] [address] Oct, [facility] [address] [id number] [address] [place] [address], [place] [address] Oct, [facility] [address] [id number] [address] [place] [address], [place] [address] Sep, [facility] [address] [id number] [address] [place] [address], [place] [address] Sep, [facility] [address] [id number] [address] [place] [address], [place] [address] Sep, [facility] [address] [id number] [address] [place] [address], [place] [address] Sep, [facility] [address] [id number] [address] [place] [address], [place] [address] Sep, [facility] [address] [id number] [address] [place] [address], [place] [address] Sep, [facility] [address] [id number] [address] [place] [address], [place] [address] Sep, [facility] [address] [id number] [address] [place] [address], [place] [address] Sep, [facility] [address] [id number] [address] [place] [address], [place] [address] Sep, [facility] [address] [id number] [address] [place] [address], [place] [address] Sep, [facility] [address] [id number] [address] [place] [address], [place] [address] Aug, [facility] [address] [id number] [address] [place] [address], [place] [address] Aug, [facility] [address] [id number] [address] [place] [address], [place] [address] Aug, [facility] [address] [id number] [address] [place] [address], [place] [address] Aug, [facility] [address] [id number] [address] [place] [address], [place] [address] Aug, [facility] [address] [id number] [address] [place] [address], [place] [address] Aug, [facility] [address] [id number] [address] [place] [address], [place] [address] Jul, [facility] [address] [id number] [address] [place] [address], [place] [address] Jul, [facility] [address] [id number] [address] [place] [address], [place] [address] Jul, [facility] [address] [id number] [address] [place] [address], [place] [address] Jul, [facility] [address] [id number] [address] [place] [address], [place] [address] Jul, [facility] [address] [id number] [address] [place] [address], [place] [address] Jul, [facility] [address] [id number] [address] [place] [address], [place] [address] Jul, [facility] [address] [id number] [address] [place] [address], [place] [address] Jul, [facility] [address] [id number] [address] [place] [address], [place] [address] Jul, [facility] [address] [id number] [address] [place] [address], [place] [address] Jul, [facility] [address] [id number] [address] [place] [address], [place] [address] Jun, [facility] [address] [id number] [address] [place] [address], [place] [address] Jun, [facility] [address] [id number] [address] [place] [address], [place] [address] Jun, [facility] [address] [id number] [address] [place] [address], [place] [address] Jun, [facility] [address] [id number] [address] [place] [address], [place] [address] May, [facility] [address] [id number] [address] [place] [address], [place] [address] May, [facility] [address] [id number] [address] [place] [address], [place] [address] Apr, [facility] [address] [id number] [address] [place] [address], [place] [address] Apr, [facility] [address] [id number] [address] [place] [address], [place] [address] 05 Apr, 2013 [facility] [address] [id number] [address] [place] [address], [place] [address] Mar, [facility] [address] [id number] [address] [place] [address], [place] [address] Mar, [facility] [address] [id number] [address] [place] [address], [place] [address] Jan, [facility] [address] [id number] [address] [place] [address], [place] [address] Jan, [facility] [address] [id number] [address] [place] [address], [place] [address] Jan, [facility] [address] [id number] [address] [place] [address], [place] [address] Jan, [facility] [address] [id number] [address] [place] [address], [place] [address] 15 Jan, 2013 [facility] [address] [address] [id number] [address] [place] [address], [place] [address] Jan, [facility] [address] [id number] [address] [place] [address], [place] [address] Jan, [facility] [address] [id number] [address] [place] [address], [place] [address] December, [facility] [address] [id number] [address] [place] [address], [place] [address] December, [facility] [address] [id number] [address] [place] [address], [place] [address] December, [facility] [address] [id number] [address] [place] [address], [place] [address] Nov, [facility] [address] [id number] [address] [place] [address], [place] [address] Nov, [facility] [address] [id number] [address] [place] [address], [place] [address] Oct, [facility] [address] [id number] [address] [place] [address], [place] [address] Oct, [facility] [address] [id number] [address] [place] [address], [place] [address] Sep, [facility] [address] [id number] [address] [place] [address], [place] [address] Sep, [facility] [address] [id number] [address] [place] [address], [place] [address] Aug, [facility] [address] [id number] [address] [place] [address], [place] [address] Aug, [facility] [address] [id number] [address] [place] [address], [place] [address] Jul, [facility] [address] [id number] [address] [place] [address], [place] [address] Jul, [facility] [address] [id number] [address] [place] [address], [place] [address] Jul, [facility] [address] [id number] [address] [place] [address], [place] [address] Jul, [facility] [address] [id number] [address] [place] [address], [place] [address] Jul, [facility] [address] [id number] [address] [place] [address], [place] [address] Jul, [facility] [address] [id number] [address] [place] [address], [place] [address] Jul, [facility] [address] [id number] [address] [place] [address], [place] [address] Jul, [facility] [address] [id number] [address] [place] [address], [place] [address] Jun, [facility] [address] [id number] [address] [place] [address], [place] [address] Jun, [facility] [address] [id number] [address] [place] [address], [place] [address] Jun, [facility] [address] [id number] [address] [place] [address], [place] [address] Jun, [facility] [address] [id number] [address] [place] [address], [place] [address] Jun, [facility] [address] [id number] [address] [place] [address], [place] [address] Jun, [facility] [address] [id number] [address] [place] [address], [place] [address] Jun, [facility] [address] [id number] [address] [place] [address], [place] [address] Jun, [facility] [address] [id number] [address] [place] [address], [place] [address] Jun, [facility] [address] [id number] [address] [place] [address], [place] [address] Jun, [facility] [address] [id number] [address] [place] [address], [place] [address] May, [facility] [address] [id number] [address] [place] [address], [place] [address] May, [facility] [address] [id number] [address] [place] [address], [place] [address] May, [facility] [address] [id number] [address] [place] [address], [place] [address] Apr, [facility] [address] [id number] [address] [place] [address], [place] [address] Apr, [facility] [address] [id number] [address] [place] [address] Mar, [facility] [address] [id number] [address] [place] [address] Mar, [facility] [address] [id number] [address] [place] [address] Jan, [facility] [address] [id number] [address] [place] [address], [place] [address] Jan, [facility] [address] [id number] [address] [place] [address] Jan, [facility] [address] [id number] [address] [place] [id number] 14 Jan, 2012 [facility] [address] [id number] [address] [place] [address] Jan, [facility] [address] [id number] [address] [place] [address], [place] [address] December, [facility] [address] [id number] [address] [place] [address], [place] [address] December, [facility] [address] [id number] [address] [place] [address], [place] [address] Nov, [facility] [address] [id number] [address] [place] [address], [place] [address] Nov, [facility] [address] [id number] [address] [place] [address], [place] [address] Oct, [facility] [address] [id number] [address] [place] [address], [place] [address] Oct, [facility] [address] [id number] [address] [place] [address], [place] [address] Oct, [facility] [address] [id number] [address] [place] [address], [place] [address] Oct, [facility] [address] [id number] [address] [place] [address], [place] [address] Sep, [facility] [address] [id number] [address] [place] [address], [place] [address] Sep, [facility] [address] [id number] [address] [place] [address], [place] [address] Sep, [facility] [address] [id number] [address] [place] [address], [place] [address] Sep, [facility] [address] [id number] [address] [place] [address], [place] [address] Sep, [facility] [address] [id number] [address] [place] [address], [place] [address] Sep, [facility] [address] [id number] [address] [place] [address], [place] [address] Sep, [facility] [address] [id number] [address] [place] [address], [place] [address] 15 Sep, 2011 [facility] [address] [id number] [address] [place] [address], [place] [address] 10 Sep, 2011 [facility] [address] [id number] [address] [place] [address], [place] [address] 27 Aug, 2011 [facility] [address] [id number] [address] [place] [address], [place] [address] Aug, [facility] [address] [id number] [address] [place] [address], [place] [address] 30 Jul, 2011 [facility] [address] [id number] [address] [place] [address], [place] [address] Jul, [facility] [address] [id number] [address] [place] [address], [place] [address] Jul, [facility] [address] [id number] [address] [place] [address], [place] [address] Jul, [facility] [address] [id number] [address] [place] [address], [place] [address] Jul, [facility] [address] [id number] [address] [place] [address], [place] [address] Jun, [facility] [address] [id number] [address] [place] [address], [place] [address] Jun, [facility] [address] [id number] [address] [place] [address], [place] [address] Jun, [facility] [address] [id number] [address] [place] [address], [place] [address] Jun, [facility] [address] [id number] [address] [place] [address], [place] [address] Jun, [facility] [address] [id number] [address] [place] [address], [place] [address] May, [facility] [address] [id number] [address] [place] [id number] 31 Jul, 2010 [facility] [address] [facility] [id number] [address] [place] [id number] Jul, [facility] [address] [facility] [id number] [address] [place] [address] Jul, [facility] [address] [facility] [id number] [address] [place] [id number] Jul, [facility] [address] [facility] [id number] [address] [place] [address] Jun, [facility] [address] [facility] [id number] [address] [place] [id number] Jun, [facility] [address] [facility] [id number] [address] [place] [address] May, IMMUNIZATIONS No Known Immunizations SOCIAL HISTORY [...]
--- OUTSIDE RECORDS SUMMARY | 2020-01-03 21:21 | XMS REPORT ---
Author Author Stevie QUIÑONEZ Organization [facility] Address [address] [place] [address] Care Team Providers Care Ballroom Dancer Name Role Phone SUSAN QUIÑONEZ Unavailable PROBLEMS Type Condition ICD9-CM Code SBH40-OZ Code Onset Dates Condition S tatus SNOMED Code Problem Depressive disorder, not elsewhere classified F32. 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 Active 334712986 Problem Status post amputation of toe of right foot Z89.42 1 Active 305974471 Problem Peripheral vascular disease I73.9 Ac tive 114202952 Problem Chronic hepatitis C without hepatic coma B18.2 Active 388847671 Problem BMI 32.0-32.9,adult Z68.32 Active 800908752 Problem Venous insufficiency I87.2 Active 05327389 Problem Type 2 diabetes mellitus with other specified complication E11.69 Active 06526775990561 Problem Long-term insulin use Z79.4 Active 812731735 Problem Osteomyelitis M86.9 Active 315664 00 Problem Acquired absence of right great toe Z89.411 Active 592309325 Problem 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 Active 101098216 Problem 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 Active 1641 519937210 Problem 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 Active 1641 [id number] ALLERGIES No Information ENCOUNTERS Encounter Location Date Diagnosis [facility] [address] [id number] [place] [address] Jun, [facility] [address] [id number] [place] [address] Jun, Type 2 diabetes mellitus with other spec ified complication E11.69 ; Interstitial pulmonary fibrosis J84.10 and Venous insufficiency I87.2 [place] [address] [address] 11 May, 2019 Coronary artery disease involving diomede coronary artery of 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 angina pectoris I25.10 ; Type 2 diabetes mellitus with other specified complication E11.69 and Long-term insulin use Z79.4 [place] [address] [address] 07 May, 2019 [place] [address] [address] May, [place] [address] [address] Apr, Type 2 diabetes mellitus with other spec ified complication E11.69 ; Coronary artery disease involving diomede coronary artery of 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 angina pectoris I25.10 and Encounter for immunization Z23 [place] [address] [address] Apr, [place] [address] [address] Apr, [place] [address] [address] December, Chronic hepatitis C without hepatic coma B18.2 and Type 2 diabetes mellitus with other specified complication E11.69 [place] [address] [address] Nov, Abnormal PSA R97.20 [place] [address] [address] Nov, [place] [address] [address] Nov, Encounter for Medicare annual wellness e xam Z00.00 ; Type 2 diabetes mellitus with other specified complication E11.69 ; Peripheral vascular disease I73.9 ; Encounter for immunization Z23 ; Liver transplant recipient Z94.4 ; Acquired absence of right great toe Z89.411 ; 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 and Routine adult health maintenance Z00.00 [place] [address] [address] 23 Nov, 2017 Medicare annual wellness visit, initial Z00.00 ; Type 2 diabetes mellitus with other specified complication E11.69 ; Depressive disorder, not elsewhere classified F32.9 ; Peripheral vascular disease I73.9 ; Encounter for immunization Z23 ; Liver transplant recipient Z94.4 ; Status post amputation of toe of right foot Z89.421 and BMI 32.0-32.9,adult Z68.32 [place] [address] [address] 13 Oct, 2017 [place] [address] [address] Oct, [place] [address] [address] Oct, Type 2 diabetes mellitus with other spec ified complication E11.69 ; Chronic hepatitis C without hepatic coma B18.2 and Depressive disorder, not elsewhere classified F32.9 [place] [address] [address] Sep, [place] [address] [address] Sep, [place] [address] [address] Sep, [place] [address] [id number] [id number] Sep, Diabetes E11.9 [place] [address] [address] Sep, [facility] [address] [place] [id number] Sep Peripheral vascular disease I73.9 ; 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 [address] [id number] [id number] Sep, [facility] [address] [address] Jan, [place] [address] [address] Jan, [place] [address] [address] December, Diabetes E11.9 ; Back pain M54.9 and Ane sapna due to other cause D64.89 [place] [address] [address] December, Osteomyelitis, unspecified M86.9 [place] [address] [address] December, [place] [address] [address] December, Diabetes E11.9 [place] [address] [address] Jan, Seborrheic keratoses L82.1 and Abscess o f neck L02.11 [place] [address] [address] Jan, Sebaceous cyst L72.3 [facility] [address] [facility] [id number] [address] Jan, Abscess, neck L02.11 [facility] [address] [address] Oct, Diabetes E11.9 [facility] [address] [id number] [place] [address] Oct, Back pain M54.9 [facility] [address] [address] Sep, Back pain M54.9 [facility] [address] [address] Sep, Back pain M54.9 [facility] [address] [address] Aug, Back pain M54.9 [facility] [address] [address] Aug, Diabetes E11.9 and Liver transplant reci cara Z94.4 [facility] [address] [address] Aug, Back pain M54.9 [facility] [address] [address] Jul, [facility] [address] [address] Jul, [facility] [address] [address] Jul, [facility] [address] [address] Jun, Depressive disorder, not elsewhere class ified F32.9 [facility] [address] [address] Jun, Diabetes E11.9 ; Depressive disorder, no t elsewhere classified F32.9 and Back pain M54.9 [facility] [address] [address] Jun, [facility] [address] [address] Jun, [facility] [address] [address] May, [facility] [address] [id number] [place] [address] May, [facility] [address] [id number] [place] [address] Apr, [facility] [address] [id number] [place] [address] Apr, [facility] [address] [place] [id number] [place] [address] Mar, [facility] [address] [id number] [place] [address] Mar, [facility] [address] [id number] [place] [id number] Mar, Dental examination V72.2 [facility] [address] [id number] [place] [address] Jan, [facility] [address] [place] [id number] [place] [address] Jan, [facility] [address] [id number] [place] [address] Jan, [facility] [address] [place] [id number] [place] [address] Jan, [facility] [address] [id number] [place] [address] Jan, [facility] [address] [place] [id number] [place] [address] December, [facility] [address] [id number] [place] [address] December, [facility] [address] [place] [id number] [place] [address] December, Diabetes mellitus type 2, uncontrolled 2 50.02 and Osteomyelitis of ankle or foot 730.27 [facility] [address] [id number] [place] [address] December, [facility] [address] [place] [id number] [place] [address] 2014 [facility] [address] [facility] [id number] [place] [address] Nov, [facility] [address] [id number] [place] [address] Oct, [facility] [address] [id number] [place] [address] Oct, [facility] [address] [id number] [place] [address] Oct, [facility] [address] [id number] [place] [address] Oct, [facility] [address] [id number] [place] [address] Sep, [facility] [address] [id number] [place] [address] Sep, [facility] [address] [id number] [place] [address] Sep, [facility] [address] [id number] [place] [address] Sep, [facility] [address] [id number] [place] [address] Aug, [facility] [address] [id number] [place] [address] Aug, [facility] [address] [id number] [place] [address] Aug, [facility] [address] [id number] [place] [address] Aug, [facility] [address] [id number] [place] [address] Aug, [facility] [address] [id number] [place] [address] Aug, [facility] [address] [id number] [place] [address] Jul, [facility] [address] [id number] [place] [address] Jul, [facility] [address] [id number] [place] [address] Jul, [facility] [address] [id number] [place] [address] Jul, [facility] [address] [id number] [place] [address] Jul, [facility] [address] [id number] [place] [address] Jul, [facility] [address] [id number] [place] [address] Jun, [facility] [address] [id number] [place] [address] Jun, [facility] [address] [place] [id number] [place] [address] Jun, [facility] [address] [id number] [place] [address] Jun, [facility] [address] [id number] [place] [address] May, [facility] [address] [id number] [place] [address] May, [facility] [address] [id number] [place] [address] May, [facility] [address] [id number] [place] [address] May, [facility] [address] [id number] [place] [address] May, [facility] [address] [id number] [place] [address] May, [facility] [address] [id number] [place] [address] Apr, [facility] [address] [id number] [place] [address] Apr, [facility] [address] [facility] [id number] [facility] [place] [address] Apr, [facility] [address] [facility] [id number] [facility] [place] [address] Apr, [facility] [address] [id number] [facility] [place] [address] Mar, [facility] [address] [facility] [id number] [facility] [place] [address] Mar, [facility] [address] [facility] [id number] [facility] [place] [address] Mar, [facility] [address] [facility] [id number] [place] [address] Mar, [facility] [address] [id number] [place] [address] Jan, [facility] [address] [id number] [place] [address] Jan, [facility] [address] [id number] [place] [address] Jan, [facility] [address] [id number] [place] [address] Jan, [facility] [address] [id number] [place] [address] Jan, [facility] [address] [id number] [place] [address] Jan, [facility] [address] [id number] [place] [address] Jan, [facility] [address] [id number] [place] [address] Jan, [facility] [address] [id number] [place] [address] Jan, [facility] [address] [id number] [place] [address] Jan, [facility] [address] [id number] [place] [address] Jan, [facility] [address] [facility] [id number] [place] [address] Jan, [facility] [address] [id number] [place] [address] December, [facility] [address] [id number] [place] [address] December, [facility] [address] [id number] [place] [address] December, [facility] [address] [id number] [place] [address] December, [facility] [address] [id number] [place] [address] December, [facility] [address] [id number] [place] [address] December, [facility] [address] [id number] [place] [address] Nov, [facility] [address] [id number] [place] [address] Nov, [facility] [address] [id number] [place] [address] Nov, [facility] [address] [id number] [place] [address] Nov, [facility] [address] [id number] [place] [address] Nov, [facility] [address] [id number] [place] [address] Nov, [facility] [address] [id number] [place] [address] Oct, [facility] [address] [id number] [place] [address] Oct, [facility] [address] [id number] [place] [address] Oct, [facility] [address] [facility] [id number] [place] [address] Oct, [facility] [address] [facility] [id number] [place] [address] Sep, [facility] [address] [facility] [id number] [place] [address] Sep, [facility] [address] [id number] [place] [address] Sep, [facility] [address] [facility] [id number] [place] [address] Sep, [facility] [address] [id number] [place] [address] Sep, [facility] [address] [id number] [place] [address] Sep, [facility] [address] [id number] [place] [address] Sep, [facility] [address] [id number] [place] [address] Sep, [facility] [address] [id number] [place] [address] Sep, [facility] [address] [id number] [place] [address] Sep, [facility] [address] [id number] [place] [address] Aug, [facility] [address] [id number] [place] [address] Aug, [facility] [address] [id number] [place] [address] Aug, [facility] [address] [id number] [place] [address] Aug, [facility] [address] [id number] [place] [address] Aug, [facility] [address] [id number] [place] [address] Aug, [facility] [address] [id number] [place] [address] Jul, [facility] [address] [id number] [place] [address] Jul, [facility] [address] [id number] [place] [address] Jul, [facility] [address] [id number] [place] [address] Jul, [facility] [address] [id number] [place] [address] Jul, [facility] [address] [id number] [place] [address] Jul, [facility] [address] [id number] [place] [address] Jul, [facility] [address] [id number] [place] [address] Jul, [facility] [address] [id number] [place] [address] Jul, [facility] [address] [id number] [place] [address] Jul, [facility] [address] [id number] [place] [address] Jun, [facility] [address] [id number] [place] [address] Jun, [facility] [address] [id number] [place] [address] Jun, [facility] [id number] [place] [address] Jun, [facility] [address] [id number] [place] [address] May, [facility] [id number] [place] [address] May, [facility] [address] [id number] [place] [address] 27 Apr, 2013 [facility] [address] [id number] [place] [address] 20 Apr, 2013 [facility] [address] [id number] [place] [address] 05 Apr, 2013 [facility] [address] [id number] [place] [address] Mar, [facility] [address] [id number] [place] [address] Mar, [facility] [address] [id number] [place] [address] Jan, [facility] [address] [id number] [place] [address] Jan, [facility] [address] [id number] [place] [address] Jan, [facility] [address] [id number] [place] [address] Jan, [facility] [address] [id number] [place] [address] Jan, [facility] [address] [id number] [place] [address] Jan, [facility] [address] [id number] [place] [address] Jan, [facility] [address] [id number] [place] [address] December, [facility] [address] [id number] [place] [address] December, [facility] [address] [id number] [place] [address] December, [facility] [address] [id number] [place] [address] Nov, [facility] [address] [id number] [place] [address] Nov, [facility] [address] [id number] [place] [address] Oct, [facility] [address] [id number] [place] [address] Oct, [facility] [address] [id number] [place] [address] Sep, [facility] [address] [id number] [place] [address] Sep, [facility] [address] [id number] [place] [address] Aug, [facility] [address] [id number] [place] [address] Aug, [facility] [address] [id number] [place] [address] Jul, [facility] [address] [id number] [place] [address] Jul, [facility] [address] [id number] [place] [address] Jul, [facility] [address] [id number] [place] [address] Jul, [facility] [address] [id number] [place] [address] Jul, [facility] [address] [id number] [place] [address] Jul, [facility] [address] [id number] [place] [address] Jul, [facility] [address] [id number] [place] [address] Jul, [facility] [address] [id number] [place] [address] Jun, [facility] [id number] [place] [address] Jun, [facility] [address] [id number] [place] [address] Jun, [facility] [address] [id number] [place] [address] Jun, [facility] [address] [id number] [place] [address] Jun, [facility] [address] [id number] [place] [address] Jun, [facility] [address] [id number] [place] [address] Jun, [facility] [address] [id number] [place] [address] Jun, [facility] [address] [id number] [place] [address] Jun, [facility] [address] [id number] [place] [address] Jun, [facility] [address] [id number] [place] [address] May, [facility] [address] [id number] [place] [address] May, [facility] [address] [id number] [place] [address] May, [facility] [address] [id number] [place] [address] Apr, [facility] [address] [id number] [place] [address] Apr, [facility] [address] [id number] [place] [address] Mar, [facility] [id number] [place] [address] Mar, [facility] [address] [id number] [place] [address] Jan, [facility] [address] [id number] [place] [address] Jan, [facility] [address] [id number] [place] [address] Jan, [facility] [address] [id number] [place] [address] Jan, [facility] [address] [id number] [place] [address] Jan, [facility] [address] [id number] [place] [address] December, [facility] [address] [id number] [place] [address] December, [facility] [address] [id number] [place] [address] Nov, [facility] [address] [id number] [place] [address] Nov, [facility] [address] [id number] [place] [address] Oct, [facility] [address] [id number] [place] [address] Oct, [facility] [address] [id number] [place] [address] Oct, [facility] [address] [id number] [place] [address] Oct, [facility] [address] [id number] [place] [address] Sep, [facility] [address] [id number] [place] [address] Sep, [facility] [address] [id number] [place] [address] Sep, [facility] [address] [id number] [place] [address] Sep, [facility] [address] [id number] [place] [address] Sep, [facility] [address] [id number] [place] [address] 15 Sep, 2011 [facility] [address] [id number] [place] [address] 15 Sep, 2011 [facility] [address] [id number] [place] [address] 15 Sep, 2011 [facility] [id number] [place] [address] 10 Sep, 2011 [facility] [id number] [place] [address] Aug, [facility] [address] [id number] [place] [address] Aug, [facility] [id number] [place] [address] Jul, [facility] [id number] [place] [address] Jul, [facility] [id number] [place] [address] Jul, [facility] [id number] [place] [address] Jul, [facility] [id number] [place] [address] Jul, [facility] [id number] [place] [address] Jun, [facility] [id number] [place] [address] Jun, [facility] [id number] [place] [address] Jun, [facility] [id number] [place] [address] Jun, [facility] [id number] [place] [address] Jun, [facility] [id number] [place] [address] May, [facility] [address] [id number] [place] [address] Jul, [facility] [address] [id number] [place] [address] Jul, [facility] [address] [id number] [place] [address] Jul, [facility] [address] [id number] [place] [address] Jul, [facility] [address] [id number] [place] [address] Jun, [facility] [id number] [place] [address] Jun, [facility] [address] [id number] [place] [address] May, IMMUNIZATIONS No Known Immunizations SOCIAL HISTORY [...]
--- OUTSIDE RECORDS SUMMARY | 2020-01-03 21:21 | XMS REPORT ---
Author Author Steive QUIÑONEZ Organization [facility] Address [address] [place] [address] Care Team Providers Care Head Of Mathematics Name Role Phone SUSAN QUIÑONEZ Unavailable PROBLEMS Type Condition ICD9-CM Code FIU78-UB Code Onset Dates Condition S tatus SNOMED Code Problem Depressive disorder, not elsewhere classified F32. 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 Active 060340883 Problem Status post amputation of toe of right foot Z89.42 1 Active 086372466 Problem Peripheral vascular disease I73.9 Ac tive 119183483 Problem Chronic hepatitis C without hepatic coma B18.2 Active 494895431 Problem BMI 32.0-32.9,adult Z68.32 Active 771450733 Problem Venous insufficiency I87.2 Active 32236397 Problem Type 2 diabetes mellitus with other specified complication E11.69 Active [id number] Problem Long-term insulin use Z79.4 Active 556872323 Problem Osteomyelitis M86.9 Active 733370 00 Problem Acquired absence of right great toe Z89.411 Active 668011415 Problem 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 Active 626786924 Problem 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 Active 1641 282491731 Problem 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 Active 1641 [id number] ALLERGIES No Information ENCOUNTERS Encounter Location Date Diagnosis [facility] [address] [id number] [place] [address] Jun, [facility] [address] [id number] [place] [address] Jun, Type 2 diabetes mellitus with other spec ified complication E11.69 ; Interstitial pulmonary fibrosis J84.10 and Venous insufficiency I87.2 [place] [address] [address] 11 May, 2019 Coronary artery disease involving telida coronary artery of telida heart without angina pectoris I25.10 ; Type 2 diabetes mellitus with other specified complication E11.69 and Long-term insulin use Z79.4 [place] [address] [address] 07 May, 2019 [place] [address] [address] May, [place] [address] [address] Apr, Type 2 diabetes mellitus with other spec ified complication E11.69 ; Coronary artery disease involving telida coronary artery of telida heart without angina pectoris I25.10 and Encounter for immunization Z23 [place] [address] [address] Apr, [place] [address] [address] Apr, [place] [address] [address] December, Chronic hepatitis C without hepatic coma B18.2 and Type 2 diabetes mellitus with other specified complication E11.69 [place] [address] [address] Nov, Abnormal PSA R97.20 [place] [address] [address] Nov, [place] [address] [address] Nov, Encounter for Medicare annual wellness e xam Z00.00 ; Type 2 diabetes mellitus with other specified complication E11.69 ; Peripheral vascular disease I73.9 ; Encounter for immunization Z23 ; Liver transplant recipient Z94.4 ; Acquired absence of right great toe Z89.411 ; 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 and Routine adult health maintenance Z00.00 [place] [address] [address] 23 Nov, 2017 Medicare annual wellness visit, initial Z00.00 ; Type 2 diabetes mellitus with other specified complication E11.69 ; Depressive disorder, not elsewhere classified F32.9 ; Peripheral vascular disease I73.9 ; Encounter for immunization Z23 ; Liver transplant recipient Z94.4 ; Status post amputation of toe of right foot Z89.421 and BMI 32.0-32.9,adult Z68.32 [place] [address] [address] 13 Oct, 2017 [place] [address] [address] Oct, [place] [address] [address] Oct, Type 2 diabetes mellitus with other spec ified complication E11.69 ; Chronic hepatitis C without hepatic coma B18.2 and Depressive disorder, not elsewhere classified F32.9 [place] [address] [address] Sep, [place] [address] [address] Sep, [place] [address] [address] Sep, [place] [address] [id number] [id number] Sep, Diabetes E11.9 [place] [address] [address] Sep, [facility] [address] [employer] [id number] Sep Peripheral vascular disease I73.9 ; 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 ; Status post amputation of toe of right foot Z89.421 ; Type 2 diabetes mellitus with other specified complication E11.69 and Liver transplant recipient Z94.4 [place] [address] [id number] [place] [id number] Sep, [facility] [address] [employer] [id number] Sep Status post amputation of toe of right foot Z89.421 ; 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 ; Osteomyelitis M86.9 ; Diabetes E11.9 ; Liver transplant recipient Z94.4 and History of drug abuse Z87.898 [facility] [address] [id number] [id number] Sep, [facility] [address] [address] Jan, [place] [address] [address] Jan, [place] [address] [address] December, Diabetes E11.9 ; Back pain M54.9 and Ane sapna due to other cause D64.89 [place] [address] [address] December, Osteomyelitis, unspecified M86.9 [place] [address] [address] December, [place] [address] [address] December, Diabetes E11.9 [place] [address] [address] Jan, Seborrheic keratoses L82.1 and Abscess o f neck L02.11 [place] [address] [address] Jan, Sebaceous cyst L72.3 [facility] [address] [facility] [id number] [place] [address] Jan, Abscess, neck L02.11 [facility] [address] [address] Oct, Diabetes E11.9 [facility] [address] [id number] [place] [address] Oct, Back pain M54.9 [facility] [address] [address] Sep, Back pain M54.9 [facility] [address] [address] Sep, Back pain M54.9 [facility] [address] [address] Aug, Back pain M54.9 [facility] [address] [address] Aug, Diabetes E11.9 and Liver transplant reci cara Z94.4 [facility] [address] [address] Aug, Back pain M54.9 [facility] [address] [address] Jul, [facility] [address] [address] Jul, [facility] [address] [address] Jul, [facility] [address] [address] Jun, Depressive disorder, not elsewhere class ified F32.9 [facility] [address] [address] Jun, Diabetes E11.9 ; Depressive disorder, no t elsewhere classified F32.9 and Back pain M54.9 [facility] [address] [address] Jun, [facility] [address] [address] Jun, [facility] [address] [address] May, [facility] [address] [id number] [place] [address] May, [facility] [address] [id number] [place] [address] Apr, [facility] [address] [id number] [place] [address] Apr, [facility] [address] [place] [id number] [place] [address] Mar, [facility] [address] [id number] [place] [address] Mar, [facility] [address] [id number] [place] [id number] Mar, Dental examination V72.2 [facility] [address] [id number] [place] [address] Jan, [facility] [address] [place] [id number] [place] [address] Jan, [facility] [address] [id number] [place] [address] Jan, [facility] [address] [place] [id number] [place] [address] Jan, [facility] [address] [id number] [place] [address] Jan, [facility] [address] [place] [id number] [place] [address] December, [facility] [address] [id number] [place] [address] December, [facility] [address] [place] [id number] [place] [address] December, Diabetes mellitus type 2, uncontrolled 2 50.02 and Osteomyelitis of ankle or foot 730.27 [facility] [address] [id number] [place] [address] December, [facility] [address] [place] [id number] [place] [address] 2014 [facility] [address] [facility] [id number] [place] [address] Nov, [facility] [address] [id number] [place] [address] Oct, [facility] [address] [id number] [place] [address] Oct, [facility] [address] [id number] [place] [address] Oct, [facility] [address] [id number] [place] [address] Oct, [facility] [address] [id number] [place] [address] Sep, [facility] [address] [id number] [place] [address] Sep, [facility] [address] [id number] [place] [address] Sep, [facility] [address] [id number] [place] [address] Sep, [facility] [address] [id number] [place] [address] Aug, [facility] [address] [id number] [place] [address] Aug, [facility] [address] [id number] [place] [address] Aug, [facility] [address] [id number] [place] [address] Aug, [facility] [address] [id number] [place] [address] Aug, [facility] [address] [id number] [place] [address] Aug, [facility] [address] [id number] [place] [address] Jul, [facility] [address] [id number] [place] [address] Jul, [facility] [address] [id number] [place] [address] Jul, [facility] [address] [id number] [place] [address] Jul, [facility] [address] [id number] [place] [address] Jul, [facility] [address] [id number] [place] [address] Jul, [facility] [address] [id number] [place] [address] Jun, [facility] [address] [id number] [place] [address] Jun, [facility] [address] [place] [id number] [place] [address] Jun, [facility] [address] [id number] [place] [address] Jun, [facility] [address] [id number] [place] [address] May, [facility] [address] [id number] [place] [address] May, [facility] [address] [id number] [place] [address] May, [facility] [address] [id number] [place] [address] May, [facility] [address] [id number] [place] [address] May, [facility] [address] [id number] [place] [address] May, [facility] [address] [id number] [place] [address] Apr, [facility] [address] [id number] [place] [address] Apr, [facility] [address] [facility] [id number] [place] [address] Apr, [facility] [address] [facility] [id number] [place] [address] Apr, [facility] [address] [id number] [place] [address] Mar, [facility] [address] [facility] [id number] [place] [address] Mar, [facility] [address] [facility] [id number] [place] [address] Mar, [facility] [address] [facility] [id number] [place] [address] Mar, [facility] [address] [id number] [place] [address] Jan, [facility] [address] [id number] [place] [address] Jan, [facility] [address] [id number] [place] [address] Jan, [facility] [address] [id number] [place] [address] Jan, [facility] [address] [id number] [place] [address] Jan, [facility] [address] [id number] [place] [address] Jan, [facility] [address] [id number] [place] [address] Jan, [facility] [address] [id number] [place] [address] Jan, [facility] [address] [id number] [place] [address] Jan, [facility] [address] [id number] [place] [address] Jan, [facility] [address] [id number] [place] [address] Jan, [facility] [address] [facility] [id number] [place] [address] Jan, [facility] [address] [id number] [place] [address] December, [facility] [address] [id number] [place] [address] December, [facility] [address] [id number] [place] [address] December, [facility] [address] [id number] [place] [address] December, [facility] [address] [id number] [place] [address] December, [facility] [address] [id number] [place] [address] December, [facility] [address] [id number] [place] [address] Nov, [facility] [address] [id number] [place] [address] Nov, [facility] [address] [id number] [place] [address] Nov, [facility] [address] [id number] [place] [address] Nov, [facility] [address] [id number] [place] [address] Nov, [facility] [address] [id number] [place] [address] Nov, [facility] [address] [id number] [place] [address] Oct, [facility] [address] [id number] [place] [address] Oct, [facility] [address] [id number] [place] [address] Oct, [facility] [address] [facility] [id number] [place] [address] Oct, [facility] [address] [facility] [id number] [place] [address] Sep, [facility] [address] [facility] [id number] [place] [address] Sep, [facility] [address] [id number] [place] [address] Sep, [facility] [address] [facility] [id number] [place] [address] Sep, [facility] [address] [id number] [place] [address] Sep, [facility] [address] [id number] [place] [address] Sep, [facility] [address] [id number] [place] [address] Sep, [facility] [address] [id number] [place] [address] Sep, [facility] [address] [id number] [place] [address] Sep, [facility] [address] [id number] [place] [address] Sep, [facility] [address] [id number] [place] [address] Aug, [facility] [address] [id number] [place] [address] Aug, [facility] [address] [id number] [place] [address] Aug, [facility] [address] [id number] [place] [address] Aug, [facility] [address] [id number] [place] [address] Aug, [facility] [address] [id number] [place] [address] Aug, [facility] [address] [id number] [place] [address] Jul, [facility] [address] [id number] [place] [address] Jul, [facility] [address] [id number] [place] [address] Jul, [facility] [address] [id number] [place] [address] Jul, [facility] [address] [id number] [place] [address] Jul, [facility] [address] [id number] [place] [address] Jul, [facility] [address] [id number] [place] [address] Jul, [facility] [address] [id number] [place] [address] Jul, [facility] [address] [id number] [place] [address] Jul, [facility] [address] [id number] [place] [address] Jul, [facility] [address] [id number] [place] [address] Jun, [facility] [address] [id number] [place] [address] Jun, [facility] [address] [id number] [place] [address] Jun, [facility] [id number] [place] [address] Jun, [facility] [address] [id number] [place] [address] May, [facility] [id number] [place] [address] May, [facility] [address] [id number] [place] [address] 27 Apr, 2013 [facility] [address] [id number] [place] [address] 20 Apr, 2013 [facility] [address] [id number] [place] [address] 05 Apr, 2013 [facility] [address] [id number] [place] [address] Mar, [facility] [address] [id number] [place] [address] Mar, [facility] [address] [id number] [place] [address] Jan, [facility] [address] [id number] [place] [address] Jan, [facility] [address] [id number] [place] [address] Jan, [facility] [address] [id number] [place] [address] Jan, [facility] [address] [id number] [place] [address] Jan, [facility] [address] [id number] [place] [address] Jan, [facility] [address] [id number] [place] [address] Jan, [facility] [address] [id number] [place] [address] December, [facility] [address] [id number] [place] [address] December, [facility] [address] [id number] [place] [address] December, [facility] [address] [id number] [place] [address] Nov, [facility] [address] [id number] [place] [address] Nov, [facility] [address] [id number] [place] [address] Oct, [facility] [address] [id number] [place] [address] Oct, [facility] [address] [id number] [place] [address] Sep, [facility] [address] [id number] [place] [address] Sep, [facility] [address] [id number] [place] [address] Aug, [facility] [address] [id number] [place] [address] Aug, [facility] [address] [id number] [place] [address] Jul, [facility] [address] [id number] [place] [address] Jul, [facility] [address] [id number] [place] [address] Jul, [facility] [address] [id number] [place] [address] Jul, [facility] [address] [id number] [place] [address] Jul, [facility] [address] [id number] [place] [address] Jul, [facility] [address] [id number] [place] [address] Jul, [facility] [address] [id number] [place] [address] Jul, [facility] [address] [id number] [place] [address] Jun, [facility] [id number] [place] [address] Jun, [facility] [address] [id number] [place] [address] Jun, [facility] [address] [id number] [place] [address] Jun, [facility] [address] [id number] [place] [address] Jun, [facility] [address] [id number] [place] [address] Jun, [facility] [address] [id number] [place] [address] Jun, [facility] [address] [id number] [place] [address] Jun, [facility] [address] [id number] [place] [address] Jun, [facility] [address] [id number] [place] [address] Jun, [facility] [address] [id number] [place] [address] May, [facility] [address] [id number] [place] [address] May, [facility] [address] [id number] [place] [address] May, [facility] [address] [id number] [place] [address] Apr, [facility] [address] [id number] [place] [address] Apr, [facility] [address] [id number] [place] [address] Mar, [facility] [id number] [place] [address] Mar, [facility] [address] [id number] [place] [address] Jan, [facility] [address] [id number] [place] [address] Jan, [facility] [address] [id number] [place] [address] Jan, [facility] [address] [id number] [place] [address] Jan, [facility] [address] [id number] [place] [address] Jan, [facility] [address] [id number] [place] [address] December, [facility] [address] [id number] [place] [address] December, [facility] [address] [id number] [place] [address] Nov, [facility] [address] [id number] [place] [address] Nov, [facility] [address] [id number] [place] [address] Oct, [facility] [address] [id number] [place] [address] Oct, [facility] [address] [id number] [place] [address] Oct, [facility] [address] [id number] [place] [address] Oct, [facility] [address] [id number] [place] [address] Sep, [facility] [address] [id number] [place] [address] Sep, [facility] [address] [id number] [place] [address] Sep, [facility] [address] [id number] [place] [address] Sep, [facility] [address] [id number] [place] [address] Sep, [facility] [address] [id number] [place] [address] 15 Sep, 2011 [facility] [address] [id number] [place] [address] 15 Sep, 2011 [facility] [address] [id number] [place] [address] 15 Sep, 2011 [facility] [id number] [place] [address] 10 Sep, 2011 [facility] [id number] [place] [address] Aug, [facility] [address] [id number] [place] [address] Aug, [facility] [id number] [place] [address] Jul, [facility] [id number] [place] [address] Jul, [facility] [id number] [place] [address] Jul, [facility] [id number] [place] [address] Jul, [facility] [id number] [place] [address] Jul, [facility] [id number] [place] [address] Jun, [facility] [id number] [place] [address] Jun, [facility] [id number] [place] [address] Jun, [facility] [id number] [place] [address] Jun, [facility] [id number] [place] [address] Jun, [facility] [id number] [place] [address] May, [facility] [address] [id number] [place] [address] Jul, [facility] [address] [id number] [place] [address] Jul, [facility] [address] [id number] [place] [address] Jul, [facility] [address] [id number] [place] [address] Jul, [facility] [address] [id number] [place] [address] Jun, [facility] [id number] [place] [address] Jun, [facility] [address] [id number] [place] [address] May, IMMUNIZATIONS No Known Immunizations SOCIAL HISTORY [...]
--- OUTSIDE RECORDS SUMMARY | 2020-01-03 21:21 | XMS REPORT ---
Author Author Stevie Rivera Doctor Organization [facility] Address Unknown Phone Unavailable Care Team Providers Care Allergy And Immunology Specialist Name Role Phone Migration, Doctor Unavailable Unavailable PROBLEMS Type Condition ICD9-CM Code DOY55-AR Code Onset Dates Condition S tatus SNOMED Code Problem Depressive disorder, not elsewhere classified F32. 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 Active 725508051 Problem Status post amputation of toe of right foot Z89.42 1 Active 728432488 Problem Peripheral vascular disease I73.9 Ac tive 013360439 Problem Chronic hepatitis C without hepatic coma B18.2 Active 426992382 Problem BMI 32.0-32.9,adult Z68.32 Active 082126179 Problem Venous insufficiency I87.2 Active 84067619 Problem Type 2 diabetes mellitus with other specified complication E11.69 Active 04766897365703 Problem Long-term insulin use Z79.4 Active 302260831 Problem Osteomyelitis M86.9 Active 643949 00 Problem Acquired absence of right great toe Z89.411 Active 255748555 Problem 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 Active 967493760 Problem Coronary artery disease invo lving [place] coronary artery of [place] heart without angina pectoris I25.10 Active 1641 120008349 Problem Coronary artery disease invo lving [place] coronary artery of [place] heart without angina pectoris I25.10 Active 1641 [id number] ALLERGIES No Information ENCOUNTERS Encounter Location Date Diagnosis [facility] [address] [id number] [place] [address] Jun, [facility] [address] [id number] [place] [address] Jun, Type 2 diabetes mellitus with other spec ified complication E11.69 ; Interstitial pulmonary fibrosis J84.10 and Venous insufficiency I87.2 [place] [address] [address] 11 May, 2019 Coronary artery disease involving [place] coronary artery of [place] heart without angina pectoris I25.10 ; Type 2 diabetes mellitus with other specified complication E11.69 and Long-term insulin use Z79.4 [place] [address] [address] 07 May, 2019 [place] [address] [address] May, [place] [address] [address] Apr, Type 2 diabetes mellitus with other spec ified complication E11.69 ; Coronary artery disease involving [place] coronary artery of [place] heart without angina pectoris I25.10 and Encounter for immunization Z23 [place] [address] [address] Apr, [place] [address] [address] Apr, [place] [address] [address] December, Chronic hepatitis C without hepatic coma B18.2 and Type 2 diabetes mellitus with other specified complication E11.69 [place] [address] [address] Nov, Abnormal PSA R97.20 [place] [address] [address] Nov, [place] [address] [address] Nov, Encounter for Medicare annual wellness e xam Z00.00 ; Type 2 diabetes mellitus with other specified complication E11.69 ; Peripheral vascular disease I73.9 ; Encounter for immunization Z23 ; Liver transplant recipient Z94.4 ; Acquired absence of right great toe Z89.411 ; 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 and Routine adult health maintenance Z00.00 [place] [address] [address] Nov, Medicare annual wellness visit, initial Z00.00 ; Type 2 diabetes mellitus with other specified complication E11.69 ; Depressive disorder, not elsewhere classified F32.9 ; Peripheral vascular disease I73.9 ; Encounter for immunization Z23 ; Liver transplant recipient Z94.4 ; Status post amputation of toe of right foot Z89.421 and BMI 32.0-32.9,adult Z68.32 [place] [address] [address] 13 Oct, 2017 [place] [address] [address] Oct, [place] [address] [address] Oct, Type 2 diabetes mellitus with other spec ified complication E11.69 ; Chronic hepatitis C without hepatic coma B18.2 and Depressive disorder, not elsewhere classified F32.9 [place] [address] [address] Sep, [place] [address] [address] Sep, [place] [address] [address] Sep, [place] [address] [id number] [place] [id number] Sep, Diabetes E11.9 [place] [address] [address] Sep, [facility] [address] [place] [id number] Sep Peripheral vascular disease I73.9 ; 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 ; Status post amputation of toe of right foot Z89.421 ; Type 2 diabetes mellitus with other specified complication E11.69 and Liver transplant recipient Z94.4 [place] [address] [id number] [place] [id number] Sep, [facility] [address] [place] [id number] Sep Status post amputation of toe of right foot Z89.421 ; 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 ; Osteomyelitis M86.9 ; Diabetes E11.9 ; Liver transplant recipient Z94.4 and History of drug abuse Z87.898 [facility] [address] [id number] [id number] Sep, [facility] [address] [address] Jan, [place] [address] [address] Jan, [place] [address] [address] December, Diabetes E11.9 ; Back pain M54.9 and Ane sapna due to other cause D64.89 [place] [address] [address] December, Osteomyelitis, unspecified M86.9 [place] [address] [address] December, [place] [address] [address] December, Diabetes E11.9 [facility] [address] [address] Jan, Seborrheic keratoses L82.1 and Abscess o f neck L02.11 [place] [address] [place] [id number] [place] [address] Jan, Sebaceous cyst L72.3 [facility] WALK IN [facility] [address] [facility] [id number] 100[address] [place] [address] Jan, Abscess, neck L02.11 [facility] [address] [id number] [place] [address] Oct, Diabetes E11.9 [facility] [address] [address] Oct, Back pain M54.9 [facility] [address] [address] Sep, Back pain M54.9 [facility] [address] [address] Sep, Back pain M54.9 [facility] [address] [address] Aug, Back pain M54.9 [facility] [address] [address] Aug, Diabetes E11.9 and Liver transplant reci cara Z94.4 [facility] [address] [address] Aug, Back pain M54.9 [facility] [address] [address] Jul, [facility] [address] [address] Jul, [facility] [address] [address] Jul, [facility] [address] [address] Jun, Depressive disorder, not elsewhere class ified F32.9 [facility] [address] [address] Jun, Diabetes E11.9 ; Depressive disorder, no t elsewhere classified F32.9 and Back pain M54.9 [facility] [address] [address] Jun, [facility] [address] [address] Jun, [facility] [address] [address] May, [facility] [address] [place] [address] May, [facility] [address] [place] [id number] [place] [address] Apr, [facility] [address] [place] [id number] [place] [address] Apr, [facility] [address] [place] [id number] [place] [address] Mar, [facility] [address] [place] [id number] [place] [address] Mar, [facility] [address] [id number] [place] [id number] Mar, Dental examination V72.2 [facility] [address] [place] [id number] [place] [address] Jan, [facility] [address] [place] [id number] [place] [address] Jan, [facility] [address] [place] [id number] [place] [address] Jan, [facility] [address] [place] [id number] [place] [address] Jan, [facility] [address] [place] [id number] [place] [address] Jan, [facility] [address] [place] [id number] [place] [address] December, [facility] [address] [place] [id number] [place] [address] December, [facility] [address] [place] [id number] [place] [address] December, Diabetes mellitus type 2, uncontrolled 2 50.02 and Osteomyelitis of ankle or foot 730.27 [facility] [address] [place] [id number] [place] [address] December, [facility] [address] [place] [id number] [place] [address] Nov, [facility] [address] [place] [id number] [place] [address] Nov, [facility] [place] [facility] [address] [facility] [id number] [place] [address] Oct, [facility] [place] [facility] [address] [id number] [place] [address] Oct, [facility] [place] [facility] [address] [id number] [place] [address] Oct, [facility] [place] [facility] [address] [id number] [place] [address] Oct, [facility] [place] [facility] [address] [id number] [place] [address] Sep, [facility] [place] [facility] [address] [id number] [place] [address] Sep, [facility] [place] [facility] [address] [id number] [place] [address] Sep, [facility] [place] [facility] [address] [id number] [place] [address] Sep, [facility] [place] [facility] [address] [id number] [place] [address] Aug, [facility] [place] [facility] [address] [id number] [place] [address] Aug, [facility] [place] [facility] [address] [id number] [place] [address] Aug, [facility] [place] [facility] [address] [id number] [place] [address] Aug, [facility] [place] [facility] [address] [id number] [place] [address] Aug, [facility] [place] [facility] [address] [id number] [place] [address] Aug, [facility] [place] [facility] [address] [id number] [place] [address] Jul, [facility] [place] [facility] [address] [id number] [place] [address] Jul, [facility] [place] [facility] [address] [id number] [place] [address] Jul, [facility] [place] [facility] [address] [id number] [place] [address] Jul, [facility] [place] [facility] [address] [id number] [place] [address] Jul, [facility] [place] [facility] [address] [id number] [place] [address] Jul, [facility] [place] [facility] [address] [id number] [place] [address] Jun, [facility] [place] [facility] [address] [id number] [place] [address] Jun, [facility] [place] [facility] [address] [id number] [place] [address] Jun, [facility] [place] [facility] [address] [id number] [place] [address] Jun, [facility] [place] [facility] [address] [id number] [place] [address] May, [facility] [place] [facility] [address] [id number] [place] [address] May, [facility] [place] [facility] [address] [id number] [place] [address] May, [facility] [place] [facility] [address] [id number] [place] [address] May, [facility] [place] [facility] [address] [id number] [place] [address] May, [facility] [place] [facility] [address] [id number] [place] [address] May, [facility] [place] [facility] [address] [id number] [place] [address] Apr, [facility] [place] [facility] [address] [id number] [place] [address] Apr, [facility] [place] [facility] [address] [id number] [place] [address] Apr, [facility] [place] [facility] [address] [facility] [id number] [place] [address] Apr, [facility] [place] [facility] [address] [facility] [id number] [place] [address] Mar, [facility] [place] [facility] [address] [id number] [place] [address] Mar, [facility] [place] [facility] [address] [facility] [id number] [place] [address] Mar, [facility] [place] [facility] [address] [facility] [id number] [place] [address] Mar, [facility] [place] [facility] [address] [id number] [place] [address] Jan, [facility] [place] [facility] [address] [id number] [place] [address] Jan, [facility] [place] [facility] [address] [id number] [place] [address] Jan, [facility] [place] [facility] [address] [facility] [id number] [place] [address] Jan, [facility] [place] [facility] [address] [id number] [place] [address] Jan, [facility] [place] [facility] [address] [id number] [place] [address] Jan, [facility] [place] [facility] [address] [id number] [place] [address] Jan, [facility] [place] [facility] [address] [facility] [id number] [place] [address] Jan, [facility] [place] [facility] [address] [id number] [place] [address] Jan, [facility] [place] [facility] [address] [id number] [place] [address] Jan, [facility] [place] [facility] [address] [id number] [place] [address] Jan, [facility] [place] [facility] [address] [id number] [place] [address] Jan, [facility] [place] [facility] [address] [id number] [place] [address] December, [facility] [place] [facility] [address] [id number] [place] [address] December, [facility] [place] [facility] [address] [id number] [place] [address] December, [facility] [place] [facility] [address] [id number] [place] [address] December, [facility] [place] [facility] [address] [id number] [place] [address] December, [facility] [place] [facility] [address] [id number] [place] [address] December, [facility] [place] [facility] [address] [id number] [place] [address] Nov, [facility] [place] [facility] [address] [id number] [place] [address] Nov, [facility] [place] [facility] [address] [id number] [place] [address] Nov, [facility] [place] [facility] [address] [id number] [place] [address] Nov, [facility] [place] [facility] [address] [id number] [place] [address] Nov, [facility] [place] [facility] [address] [id number] [place] [address] Nov, [facility] [place] [facility] [address] [id number] [place] [address] Oct, [facility] [place] [facility] [address] [id number] [place] [address] Oct, [facility] [place] [facility] [address] [id number] [place] [address] Oct, [facility] [place] [facility] [address] [id number] [place] [address] Oct, [facility] [place] [facility] [address] [id number] [place] [address] Sep, [facility] [place] [facility] [address] [id number] [place] [address] Sep, [facility] [place] [facility] [address] [id number] [place] [address] Sep, [facility] [place] [facility] [address] [id number] [place] [address] Sep, [facility] [place] [facility] [address] [facility] [id number] [place] [address] Sep, [facility] [place] [facility] [address] [id number] [place] [address] Sep, [facility] [place] [facility] [address] [id number] [place] [address] Sep, [facility] [place] [facility] [address] [id number] [place] [address] Sep, [facility] [place] [facility] [address] [id number] [place] [address] Sep, [facility] [place] [facility] [address] [id number] [place] [address] Sep, [facility] [place] [facility] [address] [id number] [place] [address] Aug, [facility] [place] [facility] [address] [id number] [place] [address] Aug, [facility] [place] [facility] [address] [id number] [place] [address] Aug, [facility] [place] [facility] [address] [id number] [place] [address] Aug, [facility] [place] [facility] [address] [id number] [place] [address] Aug, [facility] [place] [facility] [address] [id number] [place] [address] Aug, [facility] [place] [facility] [address] [id number] [place] [address] Jul, [facility] [place] [facility] [address] [id number] [place] [address] Jul, [facility] [place] [facility] [address] [id number] [place] [address] Jul, [facility] [place] [facility] [address] [id number] [place] [address] Jul, [facility] [place] [facility] [address] [id number] [place] [address] Jul, [facility] [place] [facility] [address] [id number] [place] [address] Jul, [facility] [place] [facility] [address] [id number] [place] [address] Jul, [facility] [place] [facility] [address] [id number] [place] [address] Jul, [facility] [place] [facility] [address] [id number] [place] [address] Jul, [facility] [place] [facility] [address] [id number] [place] [address] Jul, [facility] [place] [facility] [address] [id number] [place] [address] Jun, [facility] [place] [facility] [address] [id number] [place] [address] Jun, [facility] [place] [facility] [address] [id number] [place] [address] Jun, [facility] [place] [facility] [address] [id number] [place] [address] Jun, [facility] [place] [facility] [id number] [place] [address] May, [facility] [place] [facility] [address] [id number] [place] [address] May, [facility] [place] [facility] [address] [id number] [place] [address] Apr, [facility] [place] [facility] [address] [id number] [place] [address] Apr, [facility] [place] [facility] [address] [id number] [place] [address] 05 Apr, 2013 [facility] [place] [facility] [address] [id number] [place] [address] Mar, [facility] [place] [facility] [address] [id number] [place] [address] Mar, [facility] [place] [facility] [address] [facility] [id number] [place] [address] Jan, [facility] [place] [facility] [address] [id number] [place] [address] Jan, [facility] [place] [facility] [address] [id number] [place] [address] Jan, [facility] [place] [facility] [address] [id number] [place] [address] Jan, [facility] [place] [facility] [address] [id number] [place] [address] Jan, [facility] [place] [facility] [address] [id number] [place] [address] Jan, [facility] [place] [facility] [address] [id number] [place] [address] Jan, [facility] [place] [facility] [address] [id number] [place] [address] December, [facility] [place] [facility] [address] [id number] [place] [address] December, [facility] [address] [id number] [place] [address] December, [facility] [address] [id number] [place] [address] Nov, [facility] [address] [id number] [place] [address] Nov, [facility] [address] [id number] [place] [address] Oct, [facility] [address] [id number] [place] [address] Oct, [facility] [address] [id number] [place] [address] Sep, [facility] [address] [id number] [place] [address] Sep, [facility] [address] [id number] [place] [address] Aug, [facility] [address] [id number] [place] [address] Aug, [facility] [address] [id number] [place] [address] Jul, [facility] [address] [id number] [place] [address] Jul, [facility] [address] [id number] [place] [address] Jul, [facility] [address] [id number] [place] [address] Jul, [facility] [address] [id number] [place] [address] Jul, [facility] [address] [id number] [place] [address] Jul, [facility] [address] [id number] [place] [address] Jul, [facility] [address] [id number] [place] [address] Jul, [facility] [id number] [place] [address] Jun, [facility] [address] [id number] [place] [address] Jun, [facility] [address] [id number] [place] [address] Jun, [facility] [address] [id number] [place] [address] Jun, [facility] [address] [id number] [place] [address] Jun, [facility] [address] [id number] [place] [address] Jun, [facility] [id number] [place] [address] Jun, [facility] [address] [id number] [place] [address] Jun, [facility] [address] [id number] [place] [address] Jun, [facility] [address] [id number] [place] [address] Jun, [facility] [id number] [place] [address] May, [facility] [address] [id number] [place] [address] May, [facility] [address] [id number] [place] [address] May, [facility] [address] [id number] [place] [address] Apr, [facility] [address] [id number] [place] [address] Apr, [facility] [address] [id number] [place] [address] Mar, [facility] [address] [id number] [place] [address] Mar, [facility] [id number] [place] [address] Jan, [facility] [address] [id number] [place] [address] Jan, [facility] [address] [id number] [place] [address] Jan, [facility] [address] [id number] [place] [address] Jan, [facility] [address] [id number] [place] [address] Jan, [facility] [address] [id number] [place] [address] December, [facility] [address] [id number] [place] [address] December, [facility] [address] [id number] [place] [address] Nov, [facility] [address] [id number] [place] [address] Nov, [facility] [address] [id number] [place] [address] Oct, [facility] [address] [id number] [place] [address] Oct, [facility] [address] [id number] [place] [address] Oct, [facility] [address] [id number] [place] [address] Oct, [facility] [address] [id number] [place] [address] Sep, [facility] [address] [id number] [place] [address] Sep, [facility] [address] [id number] [place] [address] Sep, [facility] [address] [id number] [place] [address] Sep, [facility] [address] [id number] [place] [address] 15 Sep, 2011 [facility] [address] [id number] [place] [address] Sep, [facility] [address] [id number] [place] [address] 15 Sep, 2011 [facility] [address] [id number] [place] [address] 15 Sep, 2011 [facility] [address] [id number] [place] [address] 10 Sep, 2011 [facility] [id number] [place] [address] 27 Aug, 2011 [facility] [address] [id number] [place] [address] Aug, [facility] [address] [id number] [place] [address] Jul, [facility] [id number] [place] [address] Jul, [facility] [id number] [place] [address] Jul, [facility] [id number] [place] [address] Jul, [facility] [address] [id number] [place] [address] Jul, [facility] [id number] [place] [address] Jun, [facility] [id number] [place] [address] Jun, [facility] [address] [id number] [place] [address] Jun, [facility] [address] [id number] [place] [address] Jun, [facility] [id number] [place] [address] Jun, [facility] [address] [id number] [place] [address] May, [facility] [id number] [place] [address] 31 Jul, 2010 [facility] [address] [id number] [place] [address] Jul, [facility] [address] [id number] [place] [address] Jul, [facility] [address] [id number] [place] [address] Jul, [facility] [address] [id number] [place] [address] Jun, [facility] [address] [id number] [place] [address] Jun, [facility] [address] [id number] [place] [address] May, IMMUNIZATIONS No Known Immunizations SOCIAL HISTORY [...] Hospitalization History Osteomylitis, Abcess to right foot,- [facility] 12/06/16 Hospitalization History right foot toes amputated 09/2017 Hospitalization History [facility] 3 heart attacks in 2 weeks.
--- OUTSIDE RECORDS SUMMARY | 2020-01-03 21:21 | XMS REPORT ---
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 Active 570255581 Problem Status post amputation of toe of right foot Z89.42 1 Active 244612517 Problem Peripheral vascular disease I73.9 Ac tive 587201505 Problem Chronic hepatitis C without hepatic coma B18.2 Active 146970069 Problem BMI 32.0-32.9,adult Z68.32 Active 195074724 Problem Venous insufficiency I87.2 Active 54931452 Problem Type 2 diabetes mellitus with other specified complication E11.69 Active 11133370561755 Problem Long-term insulin use Z79.4 Active 097056763 Problem Osteomyelitis M86.9 Active 170541 00 Problem Acquired absence of right great toe Z89.411 Active 566752265 Problem 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 Active 727020770 Problem Coronary artery disease invo lving [place] coronary artery of [place] heart without angina pectoris I25.10 Active 1641 079681881 Problem Coronary artery disease invo lving [place] coronary artery of [place] heart without angina pectoris I25.10 Active 1641 [id number] ALLERGIES No Information ENCOUNTERS Encounter Location Date Diagnosis [facility] [address] [id number] [place] [address] Jun, [facility] [address] [id number] [place] [address] Jun, Type 2 diabetes mellitus with other spec ified complication E11.69 ; Interstitial pulmonary fibrosis J84.10 and Venous insufficiency I87.2 [place] [address] [address] 11 May, 2019 Coronary artery disease involving [place] coronary artery of [place] heart without angina pectoris I25.10 ; Type 2 diabetes mellitus with other specified complication E11.69 and Long-term insulin use Z79.4 [place] [address] [address] 07 May, 2019 [place] [address] [address] May, [place] [address] [address] Apr, Type 2 diabetes mellitus with other spec ified complication E11.69 ; Coronary artery disease involving [place] coronary artery of [place] heart without angina pectoris I25.10 and Encounter for immunization Z23 [place] [address] [address] Apr, [place] [address] [address] Apr, [place] [address] [address] December, Chronic hepatitis C without hepatic coma B18.2 and Type 2 diabetes mellitus with other specified complication E11.69 [place] [address] [address] Nov, Abnormal PSA R97.20 [place] [address] [address] Nov, [place] [address] [address] Nov, Encounter for Medicare annual wellness e xam Z00.00 ; Type 2 diabetes mellitus with other specified complication E11.69 ; Peripheral vascular disease I73.9 ; Encounter for immunization Z23 ; Liver transplant recipient Z94.4 ; Acquired absence of right great toe Z89.411 ; 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 and Routine adult health maintenance Z00.00 [place] [address] [address] 23 Nov, 2017 Medicare annual wellness visit, initial Z00.00 ; Type 2 diabetes mellitus with other specified complication E11.69 ; Depressive disorder, not elsewhere classified F32.9 ; Peripheral vascular disease I73.9 ; Encounter for immunization Z23 ; Liver transplant recipient Z94.4 ; Status post amputation of toe of right foot Z89.421 and BMI 32.0-32.9,adult Z68.32 [place] [address] [address] 13 Oct, 2017 [place] [address] [address] Oct, [place] [address] [address] Oct, Type 2 diabetes mellitus with other spec ified complication E11.69 ; Chronic hepatitis C without hepatic coma B18.2 and Depressive disorder, not elsewhere classified F32.9 [place] [address] [address] Sep, [place] [address] [address] Sep, [place] [address] [address] Sep, [place] [address] [id number] [id number] Sep, Diabetes E11.9 [place] [address] [address] Sep, [address] [address] [place] [id number] Sep Peripheral vascular disease I73.9 ; 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 ; Status post amputation of toe of right foot Z89.421 ; Type 2 diabetes mellitus with other specified complication E11.69 and Liver transplant recipient Z94.4 [place] [address] [id number] [id number] Sep, [facility] [address] [place] [id number] Sep Status post amputation of toe of right foot Z89.421 ; 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 ; Osteomyelitis M86.9 ; Diabetes E11.9 ; Liver transplant recipient Z94.4 and History of drug abuse Z87.898 [facility] [address] [id number] [id number] Sep, [facility] [address] [address] Jan, [place] [address] [address] Jan, [place] [address] [address] December, Diabetes E11.9 ; Back pain M54.9 and Ane sapna due to other cause D64.89 [place] [address] [address] December, Osteomyelitis, unspecified M86.9 [place] [address] [address] December, [place] [address] [address] December, Diabetes E11.9 [place] [address] [address] Jan, Seborrheic keratoses L82.1 and Abscess o f neck L02.11 [place] [address] [address] Jan, Sebaceous cyst L72.3 [facility] [address] [facility] [id number] [place] [address] Jan, Abscess, neck L02.11 [facility] [address] [address] Oct, Diabetes E11.9 [facility] [address] [id number] [place] [address] Oct, Back pain M54.9 [facility] [address] [address] Sep, Back pain M54.9 [facility] [address] [address] Sep, Back pain M54.9 [facility] [address] [address] Aug, Back pain M54.9 [facility] [address] [address] Aug, Diabetes E11.9 and Liver transplant reci cara Z94.4 [facility] [address] [address] Aug, Back pain M54.9 [facility] [address] [address] Jul, [facility] [address] [address] Jul, [facility] [address] [address] Jul, [facility] [address] [address] Jun, Depressive disorder, not elsewhere class ified F32.9 [facility] [address] [address] Jun, Diabetes E11.9 ; Depressive disorder, no t elsewhere classified F32.9 and Back pain M54.9 [facility] [address] [address] Jun, [facility] [address] [address] Jun, [facility] [address] [address] May, [facility] [address] [id number] [place] [address] May, [facility] [address] [id number] [place] [address] Apr, [facility] [address] [id number] [place] [address] Apr, [facility] [address] [place] [id number] [place] [address] Mar, [facility] [address] [id number] [place] [address] Mar, [facility] [address] [id number] [place] [id number] Mar, Dental examination V72.2 [facility] [address] [id number] [place] [address] Jan, [facility] [address] [place] [id number] [place] [address] Jan, [facility] [address] [id number] [place] [address] Jan, [facility] [address] [place] [id number] [place] [address] Jan, [facility] [address] [id number] [place] [address] Jan, [facility] [address] [place] [id number] [place] [address] December, [facility] [address] [id number] [place] [address] December, [facility] [address] [place] [id number] [place] [address] December, Diabetes mellitus type 2, uncontrolled 2 50.02 and Osteomyelitis of ankle or foot 730.27 [facility] [place] [address] [id number] [place] [address] December, [facility] [address] [place] [id number] [place] [address] 2014 [facility] [address] [facility] [id number] [place] [address] Nov, [facility] [address] [id number] [place] [address] Oct, [facility] [address] [id number] [place] [address] Oct, [facility] [address] [id number] [place] [address] Oct, [facility] [address] [id number] [place] [address] Oct, [facility] [address] [id number] [place] [address] Sep, [facility] [address] [id number] [place] [address] Sep, [facility] [address] [id number] [place] [address] Sep, [facility] [address] [id number] [place] [address] Sep, [facility] [address] [id number] [place] [address] Aug, [facility] [address] [id number] [place] [address] Aug, [facility] [address] [id number] [place] [address] Aug, [facility] [address] [id number] [place] [address] Aug, [facility] [address] [id number] [place] [address] Aug, [facility] [address] [id number] [place] [address] Aug, [facility] [address] [id number] [place] [address] Jul, [facility] [address] [id number] [place] [address] Jul, [facility] [address] [id number] [place] [address] Jul, [facility] [address] [id number] [place] [address] Jul, [facility] [address] [id number] [place] [address] Jul, [facility] [address] [id number] [place] [address] Jul, [facility] [address] [id number] [place] [address] Jun, [facility] [address] [id number] [place] [address] Jun, [facility] [address] [place] [id number] [place] [address] Jun, [facility] [address] [id number] [place] [address] Jun, [facility] [address] [id number] [place] [address] May, [facility] [address] [id number] [place] [address] May, [facility] [address] [id number] [place] [address] May, [facility] [address] [id number] [place] [address] May, [facility] [address] [id number] [place] [address] May, [facility] [address] [id number] [place] [address] May, [facility] [address] [id number] [place] [address] Apr, [facility] [address] [id number] [place] [address] Apr, [facility] [address] [facility] [id number] [facility] [place] [address] Apr, [facility] [address] [facility] [id number] [facility] [place] [address] Apr, [facility] [address] [id number] [facility] [place] [address] Mar, [facility] [address] [facility] [id number] [facility] [place] [address] Mar, [facility] [address] [facility] [id number] [facility] [place] [address] Mar, [facility] [address] [facility] [id number] [place] [address] Mar, [facility] [address] [id number] [place] [address] Jan, [facility] [address] [id number] [place] [address] Jan, [facility] [address] [id number] [place] [address] Jan, [facility] [address] [id number] [place] [address] Jan, [facility] [address] [id number] [place] [address] Jan, [facility] [address] [id number] [place] [address] Jan, [facility] [address] [id number] [place] [address] Jan, [facility] [address] [id number] [place] [address] Jan, [facility] [address] [id number] [place] [address] Jan, [facility] [address] [id number] [place] [address] Jan, [facility] [address] [id number] [place] [address] Jan, [facility] [address] [facility] [id number] [place] [address] Jan, [facility] [address] [id number] [place] [address] December, [facility] [address] [id number] [place] [address] December, [facility] [address] [id number] [place] [address] December, [facility] [address] [id number] [place] [address] December, [facility] [address] [id number] [place] [address] December, [facility] [address] [id number] [place] [address] December, [facility] [address] [id number] [place] [address] Nov, [facility] [address] [id number] [place] [address] Nov, [facility] [address] [id number] [place] [address] Nov, [facility] [address] [id number] [place] [address] Nov, [facility] [address] [id number] [place] [address] Nov, [facility] [address] [id number] [place] [address] Nov, [facility] [address] [id number] [place] [address] Oct, [facility] [address] [id number] [place] [address] Oct, [facility] [address] [id number] [place] [address] Oct, [facility] [address] [facility] [id number] [place] [address] Oct, [facility] [address] [facility] [id number] [place] [address] Sep, [facility] [address] [facility] [id number] [place] [address] Sep, [facility] [address] [id number] [place] [address] Sep, [facility] [address] [facility] [id number] [place] [address] Sep, [facility] [address] [id number] [place] [address] Sep, [facility] [address] [id number] [place] [address] Sep, [facility] [address] [id number] [place] [address] Sep, [facility] [address] [id number] [place] [address] Sep, [facility] [address] [id number] [place] [address] Sep, [facility] [address] [id number] [place] [address] Sep, [facility] [address] [id number] [place] [address] Aug, [facility] [address] [id number] [place] [address] Aug, [facility] [address] [id number] [place] [address] Aug, [facility] [address] [id number] [place] [address] Aug, [facility] [address] [id number] [place] [address] Aug, [facility] [address] [id number] [place] [address] Aug, [facility] [address] [id number] [place] [address] Jul, [facility] [address] [id number] [place] [address] Jul, [facility] [address] [id number] [place] [address] Jul, [facility] [address] [id number] [place] [address] Jul, [facility] [address] [id number] [place] [address] Jul, [facility] [address] [id number] [place] [address] Jul, [facility] [address] [id number] [place] [address] Jul, [facility] [address] [id number] [place] [address] Jul, [facility] [address] [id number] [place] [address] Jul, [facility] [address] [id number] [place] [address] Jul, [facility] [address] [id number] [place] [address] Jun, [facility] [address] [id number] [place] [address] Jun, [facility] [address] [id number] [place] [address] Jun, [facility] [id number] [place] [address] Jun, [facility] [address] [id number] [place] [address] May, [facility] [id number] [place] [address] May, [facility] [address] [id number] [place] [address] 27 Apr, 2013 [facility] [address] [id number] [place] [address] 20 Apr, 2013 [facility] [address] [id number] [place] [address] 05 Apr, 2013 [facility] [address] [id number] [place] [address] Mar, [facility] [address] [id number] [place] [address] Mar, [facility] [address] [id number] [place] [address] Jan, [facility] [address] [id number] [place] [address] Jan, [facility] [address] [id number] [place] [address] Jan, [facility] [address] [id number] [place] [address] Jan, [facility] [address] [id number] [place] [address] Jan, [facility] [address] [id number] [place] [address] Jan, [facility] [address] [id number] [place] [address] Jan, [facility] [address] [id number] [place] [address] December, [facility] [address] [id number] [place] [address] December, [facility] [address] [id number] [place] [address] December, [facility] [address] [id number] [place] [address] Nov, [facility] [address] [id number] [place] [address] Nov, [facility] [address] [id number] [place] [address] Oct, [facility] [address] [id number] [place] [address] Oct, [facility] [address] [id number] [place] [address] Sep, [facility] [address] [id number] [place] [address] Sep, [facility] [address] [id number] [place] [address] Aug, [facility] [address] [id number] [place] [address] Aug, [facility] [address] [id number] [place] [address] Jul, [facility] [address] [id number] [place] [address] Jul, [facility] [address] [id number] [place] [address] Jul, [facility] [address] [id number] [place] [address] Jul, [facility] [address] [id number] [place] [address] Jul, [facility] [address] [id number] [place] [address] Jul, [facility] [address] [id number] [place] [address] Jul, [facility] [address] [id number] [place] [address] Jul, [facility] [address] [id number] [place] [address] Jun, [facility] [id number] [place] [address] Jun, [facility] [address] [id number] [place] [address] Jun, [facility] [address] [id number] [place] [address] Jun, [facility] [address] [id number] [place] [address] Jun, [facility] [address] [id number] [place] [address] Jun, [facility] [address] [id number] [place] [address] Jun, [facility] [address] [id number] [place] [address] Jun, [facility] [address] [id number] [place] [address] Jun, [facility] [address] [id number] [place] [address] Jun, [facility] [address] [id number] [place] [address] May, [facility] [address] [id number] [place] [address] May, [facility] [address] [id number] [place] [address] May, [facility] [address] [id number] [place] [address] Apr, [facility] [address] [id number] [place] [address] Apr, [facility] [address] [id number] [place] [address] Mar, [facility] [id number] [place] [address] Mar, [facility] [address] [id number] [place] [address] Jan, [facility] [address] [id number] [place] [address] Jan, [facility] [address] [id number] [place] [address] Jan, [facility] [address] [id number] [place] [address] Jan, [facility] [address] [id number] [place] [address] Jan, [facility] [address] [id number] [place] [address] December, [facility] [address] [id number] [place] [address] December, [facility] [address] [id number] [place] [address] Nov, [facility] [address] [id number] [place] [address] Nov, [facility] [address] [id number] [place] [address] Oct, [facility] [address] [id number] [place] [address] Oct, [facility] [address] [id number] [place] [address] Oct, [facility] [address] [id number] [place] [address] Oct, [facility] [address] [id number] [place] [address] Sep, [facility] [address] [id number] [place] [address] Sep, [facility] [address] [id number] [place] [address] Sep, [facility] [address] [id number] [place] [address] Sep, [facility] [address] [id number] [place] [address] Sep, [facility] [address] [id number] [place] [address] 15 Sep, 2011 [facility] [address] [id number] [place] [address] 15 Sep, 2011 [facility] [address] [id number] [place] [address] 15 Sep, 2011 [facility] [id number] [place] [address] 10 Sep, 2011 [facility] [id number] [place] [address] Aug, [facility] [address] [id number] [place] [address] Aug, [facility] [id number] [place] [address] Jul, [facility] [id number] [place] [address] Jul, [facility] [id number] [place] [address] Jul, [facility] [id number] [place] [address] Jul, [facility] [id number] [place] [address] Jul, [facility] [id number] [place] [address] Jun, [facility] [id number] [place] [address] Jun, [facility] [id number] [place] [address] Jun, [facility] [id number] [place] [address] Jun, [facility] [id number] [place] [address] Jun, [facility] [id number] [place] [address] May, [facility] [address] [id number] [place] [address] Jul, [facility] [address] [id number] [place] [address] Jul, [facility] [address] [id number] [place] [address] Jul, [facility] [address] [id number] [place] [address] Jul, [facility] [address] [id number] [place] [address] Jun, [facility] [id number] [place] [address] Jun, [facility] [address] [id number] [place] [address] May, IMMUNIZATIONS No Known Immunizations SOCIAL HISTORY [...]
--- OUTSIDE RECORDS SUMMARY | 2020-01-03 21:22 | XMS REPORT ---
Author Author Stevie QUIÑONEZ Organization [facility] Address [address] [place] [address] Care Team Providers Care Transfer Car Operator Name Role Phone SUSAN QUIÑONEZ Unavailable PROBLEMS Type Condition ICD9-CM Code [id number] Code Onset Dates Condition S tatus SNOMED Code Problem Depressive disorder, not elsewhere classified F32. 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 Active 218573126 Problem Status post amputation of toe of right foot Z89.42 1 Active 709001270 Problem Peripheral vascular disease I73.9 Ac tive 096133822 Problem Chronic hepatitis C without hepatic coma B18.2 Active 093155582 Problem BMI 32.0-32.9,adult Z68.32 Active 006352479 Problem Venous insufficiency I87.2 Active 39156468 Problem Type 2 diabetes mellitus with other specified complication E11.69 Active 02491943001773 Problem Long-term insulin use Z79.4 Active 723231762 Problem Osteomyelitis M86.9 Active 961930 00 Problem Acquired absence of right great toe Z89.411 Active 138606085 Problem 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 [place] [address] Jun, [facility] [address] [id number] [place] [address] Jun, Type 2 diabetes mellitus with other spec ified complication E11.69 ; Interstitial pulmonary fibrosis J84.10 and Venous insufficiency I87.2 [place] [address] [address] 11 May, 2019 Coronary artery disease involving [place] coronary artery of [place] heart without angina pectoris I25.10 ; Type 2 diabetes mellitus with other specified complication E11.69 and Long-term insulin use Z79.4 [place] [address] [address] 07 May, 2019 [place] [address] [address] May, [place] [address] [address] Apr, Type 2 diabetes mellitus with other spec ified complication E11.69 ; Coronary artery disease involving [place] coronary artery of [place] heart without angina pectoris I25.10 and Encounter for immunization Z23 [place] [address] [address] Apr, [place] [address] [address] Apr, [place] [address] [address] December, Chronic hepatitis C without hepatic coma B18.2 and Type 2 diabetes mellitus with other specified complication E11.69 [place] [address] [address] Nov, Abnormal PSA R97.20 [place] [address] [address] Nov, [place] [address] [address] Nov, Encounter for Medicare annual wellness e xam Z00.00 ; Type 2 diabetes mellitus with other specified complication E11.69 ; Peripheral vascular disease I73.9 ; Encounter for immunization Z23 ; Liver transplant recipient Z94.4 ; Acquired absence of right great toe Z89.411 ; 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 and Routine adult health maintenance Z00.00 [place] [address] [address] 23 Nov, 2017 Medicare annual wellness visit, initial Z00.00 ; Type 2 diabetes mellitus with other specified complication E11.69 ; Depressive disorder, not elsewhere classified F32.9 ; Peripheral vascular disease I73.9 ; Encounter for immunization Z23 ; Liver transplant recipient Z94.4 ; Status post amputation of toe of right foot Z89.421 and BMI 32.0-32.9,adult Z68.32 [place] [address] [address] 13 Oct, 2017 [place] [address] [address] Oct, [place] [address] [address] Oct, Type 2 diabetes mellitus with other spec ified complication E11.69 ; Chronic hepatitis C without hepatic coma B18.2 and Depressive disorder, not elsewhere classified F32.9 [place] [address] [address] Sep, [place] [address] [address] Sep, [place] [address] [address] Sep, [place] [address] [id number] [id number] Sep, Diabetes E11.9 [place] [address] [address] Sep, [facility] [address] [place] [id number] Sep Peripheral vascular disease I73.9 ; 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 ; Status post amputation of toe of right foot Z89.421 ; Type 2 diabetes mellitus with other specified complication E11.69 and Liver transplant recipient Z94.4 [place] [address] [id number] [place] [id number] Sep, [facility] [address] [place] [id number] Sep Status post amputation of toe of right foot Z89.421 ; 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 ; Osteomyelitis M86.9 ; Diabetes E11.9 ; Liver transplant recipient Z94.4 and History of drug abuse Z87.898 [facility] [address] [id number] [id number] Sep, [facility] [address] [address] Jan, [place] [address] [address] Jan, [place] [address] [address] December, Diabetes E11.9 ; Back pain M54.9 and Ane sapna due to other cause D64.89 [place] [address] [address] December, Osteomyelitis, unspecified M86.9 [place] [address] [address] December, [place] [address] [address] December, Diabetes E11.9 [place] [address] [address] Jan, Seborrheic keratoses L82.1 and Abscess o f neck L02.11 [place] [address] [address] Jan, Sebaceous cyst L72.3 [facility] [address] [facility] [id number] [place] [address] Jan, Abscess, neck L02.11 [facility] [address] [address] Oct, Diabetes E11.9 [facility] [address] [facility] [place] [address] Oct, Back pain M54.9 [facility] [address] [address] Sep, Back pain M54.9 [facility] [address] [address] Sep, Back pain M54.9 [facility] [address] [address] Aug, Back pain M54.9 [facility] [address] [address] Aug, Diabetes E11.9 and Liver transplant reci cara Z94.4 [facility] [address] [address] Aug, Back pain M54.9 [facility] [address] [address] Jul, [facility] [address] [address] Jul, [facility] [address] [address] Jul, [facility] [address] [address] Jun, Depressive disorder, not elsewhere class ified F32.9 [facility] [address] [address] Jun, Diabetes E11.9 ; Depressive disorder, no t elsewhere classified F32.9 and Back pain M54.9 [facility] [address] [address] Jun, [facility] [address] [address] Jun, [facility] [address] [address] May, [facility] [address] [facility] [id number] [place] [address] May, [facility] [address] [facility] [id number] [place] [address] Apr, [facility] [address] [facility] [id number] [place] [address] Apr, [facility] [address] [place] [id number] [place] [address] Mar, [facility] [address] [facility] [id number] [place] [address] Mar, [facility] [address] [id number] [place] [id number] Mar, Dental examination V72.2 [facility] [address] [facility] [id number] [place] [address] Jan, [facility] [address] [place] [id number] [place] [address] Jan, [facility] [address] [facility] [id number] [place] [address] Jan, [facility] [address] [place] [id number] [place] [address] Jan, [facility] [address] [facility] [id number] [place] [address] Jan, [facility] [address] [place] [id number] [place] [address] December, [facility] [address] [facility] [id number] [place] [address] December, [facility] [address] [place] [id number] [place] [address] December, Diabetes mellitus type 2, uncontrolled 2 50.02 and Osteomyelitis of ankle or foot 730.27 [facility] [place] [address] [facility] [id number] [place] [address] December, [facility] [address] [place] [id number] [place] [address] 2014 [facility] [address] [facility] [id number] [place] [address] Nov, [facility] [address] [facility] [id number] [place] [address] Oct, [facility] [address] [facility] [id number] [place] [address] Oct, [facility] [address] [facility] [id number] [place] [address] Oct, [facility] [address] [facility] [id number] [place] [address] Oct, [facility] [address] [facility] [id number] [place] [address] Sep, [facility] [address] [facility] [id number] [place] [address] Sep, [facility] [address] [facility] [id number] [place] [address] Sep, [facility] [address] [id number] [place] [address] Sep, [facility] [address] [id number] [place] [address] Aug, [facility] [address] [facility] [id number] [place] [address] Aug, [facility] [address] [facility] [id number] [place] [address] Aug, [facility] [address] [id number] [place] [address] Aug, [facility] [address] [id number] [place] [address] Aug, [facility] [address] [facility] [id number] [place] [address] Aug, [facility] [address] [facility] [id number] [place] [address] Jul, [facility] [address] [facility] [id number] [place] [address] Jul, [facility] [address] [facility] [id number] [place] [address] Jul, [facility] [address] [facility] [id number] [place] [address] Jul, [facility] [address] [facility] [id number] [place] [address] Jul, [facility] [address] [facility] [id number] [place] [address] Jul, [facility] [address] [facility] [id number] [place] [address] Jun, [facility] [address] [id number] [place] [address] Jun, [facility] [address] [place] [id number] [place] [address] Jun, [facility] [address] [id number] [place] [address] Jun, [facility] [address] [facility] [id number] [place] [address] May, [facility] [address] [id number] [place] [address] May, [facility] [address] [facility] [id number] [place] [address] May, [facility] [address] [id number] [place] [address] May, [facility] [address] [id number] [place] [address] May, [facility] [address] [id number] [place] [address] May, [facility] [address] [id number] [place] [address] Apr, [facility] [address] [id number] [place] [address] Apr, [facility] [address] [facility] [id number] [place] [address] Apr, [facility] [address] [facility] [id number] [place] [address] Apr, [facility] [address] [id number] [place] [address] Mar, [facility] [address] [facility] [id number] [place] [address] Mar, [facility] [address] [facility] [id number] [place] [address] Mar, [facility] [address] [facility] [id number] [place] [address] Mar, [facility] [address] [id number] [place] [address] Jan, [facility] [address] [id number] [place] [address] Jan, [facility] [address] [id number] [place] [address] Jan, [facility] [address] [id number] [place] [address] Jan, [facility] [address] [id number] [place] [address] Jan, [facility] [address] [id number] [place] [address] Jan, [facility] [address] [id number] [place] [address] Jan, [facility] [address] [id number] [place] [address] Jan, [facility] [address] [id number] [place] [address] Jan, [facility] [address] [id number] [place] [address] Jan, [facility] [address] [id number] [place] [address] Jan, [facility] [address] [facility] [id number] [place] [address] Jan, [facility] [address] [id number] [place] [address] December, [facility] [address] [id number] [place] [address] December, [facility] [address] [id number] [place] [address] December, [facility] [address] [id number] [place] [address] December, [facility] [address] [id number] [place] [address] December, [facility] [address] [id number] [place] [address] December, [facility] [address] [id number] [place] [address] Nov, [facility] [address] [id number] [place] [address] Nov, [facility] [address] [id number] [place] [address] Nov, [facility] [address] [id number] [place] [address] Nov, [facility] [address] [id number] [place] [address] Nov, [facility] [address] [id number] [place] [address] Nov, [facility] [address] [id number] [place] [address] Oct, [facility] [address] [id number] [place] [address] Oct, [facility] [address] [id number] [place] [address] Oct, [facility] [address] [facility] [id number] [place] [address] Oct, [facility] [address] [facility] [id number] [place] [address] Sep, [facility] [address] [facility] [id number] [place] [address] Sep, [facility] [address] [id number] [place] [address] Sep, [facility] [address] [facility] [id number] [place] [address] Sep, [facility] [address] [id number] [place] [address] Sep, [facility] [address] [id number] [place] [address] Sep, [facility] [address] [id number] [place] [address] Sep, [facility] [address] [id number] [place] [address] Sep, [facility] [address] [id number] [place] [address] Sep, [facility] [address] [id number] [place] [address] Sep, [facility] [address] [id number] [place] [address] Aug, [facility] [address] [id number] [place] [address] Aug, [facility] [address] [id number] [place] [address] Aug, [facility] [address] [id number] [place] [address] Aug, [facility] [address] [id number] [place] [address] Aug, [facility] [address] [id number] [place] [address] Aug, [facility] [address] [id number] [place] [address] Jul, [facility] [address] [id number] [place] [address] Jul, [facility] [address] [id number] [place] [address] Jul, [facility] [address] [id number] [place] [address] Jul, [facility] [address] [id number] [place] [address] Jul, [facility] [address] [id number] [place] [address] Jul, [facility] [address] [id number] [place] [address] Jul, [facility] [address] [id number] [place] [address] Jul, [facility] [address] [id number] [place] [address] Jul, [facility] [address] [id number] [place] [address] Jul, [facility] [address] [id number] [place] [address] Jun, [facility] [address] [id number] [place] [address] Jun, [facility] [address] [id number] [place] [address] Jun, [facility] [id number] [place] [address] Jun, [facility] [address] [id number] [place] [address] May, [facility] [id number] [place] [address] May, [facility] [address] [id number] [place] [address] 27 Apr, 2013 [facility] [address] [id number] [place] [address] 20 Apr, 2013 [facility] [address] [id number] [place] [address] 05 Apr, 2013 [facility] [address] [id number] [place] [address] Mar, [facility] [address] [id number] [place] [address] Mar, [facility] [address] [id number] [place] [address] Jan, [facility] [address] [id number] [place] [address] Jan, [facility] [address] [id number] [place] [address] Jan, [facility] [address] [id number] [place] [address] Jan, [facility] [address] [id number] [place] [address] Jan, [facility] [address] [id number] [place] [address] Jan, [facility] [address] [id number] [place] [address] Jan, [facility] [address] [id number] [place] [address] December, [facility] [address] [id number] [place] [address] December, [facility] [address] [id number] [place] [address] December, [facility] [address] [id number] [place] [address] Nov, [facility] [address] [id number] [place] [address] Nov, [facility] [address] [id number] [place] [address] Oct, [facility] [address] [id number] [place] [address] Oct, [facility] [address] [id number] [place] [address] Sep, [facility] [address] [id number] [place] [address] Sep, [facility] [address] [id number] [place] [address] Aug, [facility] [address] [id number] [place] [address] Aug, [facility] [address] [id number] [place] [address] Jul, [facility] [address] [id number] [place] [address] Jul, [facility] [address] [id number] [place] [address] Jul, [facility] [address] [id number] [place] [address] Jul, [facility] [address] [id number] [place] [address] Jul, [facility] [address] [id number] [place] [address] Jul, [facility] [address] [id number] [place] [address] Jul, [facility] [address] [id number] [place] [address] Jul, [facility] [address] [id number] [place] [address] Jun, [facility] [id number] [place] [address] Jun, [facility] [address] [id number] [place] [address] Jun, [facility] [address] [id number] [place] [address] Jun, [facility] [address] [id number] [place] [address] Jun, [facility] [address] [id number] [place] [address] Jun, [facility] [address] [id number] [place] [address] Jun, [facility] [address] [id number] [place] [address] Jun, [facility] [address] [id number] [place] [id number] Jun, [facility] [address] [id number] [place] [address] Jun, [facility] [address] [id number] [place] [address] May, [facility] [address] [id number] [place] [address] May, [facility] [address] [id number] [place] [address] May, [facility] [address] [id number] [place] [address] Apr, [facility] [address] [id number] [place] [address] Apr, [facility] [address] [id number] [place] [address] Mar, [facility] [id number] [place] [address] Mar, [facility] [address] [id number] [place] [address] Jan, [facility] [address] [id number] [place] [address] Jan, [facility] [address] [id number] [place] [address] Jan, [facility] [address] [id number] [place] [address] Jan, [facility] [address] [id number] [place] [address] Jan, [facility] [address] [id number] [place] [address] December, [facility] [address] [id number] [place] [address] December, [facility] [address] [id number] [place] [address] Nov, [facility] [address] [id number] [place] [address] Nov, [facility] [address] [id number] [place] [address] Oct, [facility] [address] [id number] [place] [address] Oct, [facility] [address] [id number] [place] [address] Oct, [facility] [address] [id number] [place] [address] Oct, [facility] [address] [id number] [place] [address] Sep, [facility] [address] [id number] [place] [address] Sep, [facility] [address] [id number] [place] [address] Sep, [facility] [address] [id number] [place] [address] Sep, [facility] [address] [id number] [place] [address] Sep, [facility] [address] [id number] [place] [address] 15 Sep, 2011 [facility] [address] [id number] [place] [address] 15 Sep, 2011 [facility] [address] [id number] [place] [address] 15 Sep, 2011 [facility] [id number] [place] [address] 10 Sep, 2011 [facility] [id number] [place] [address] Aug, [facility] [address] [id number] [place] [address] Aug, [facility] [id number] [place] [address] Jul, [facility] [id number] [place] [address] Jul, [facility] [id number] [place] [address] Jul, [facility] [id number] [place] [address] Jul, [facility] [id number] [place] [address] Jul, [facility] [id number] [place] [address] Jun, [facility] [id number] [place] [address] Jun, [facility] [id number] [place] [address] Jun, [facility] [id number] [place] [address] Jun, [facility] [id number] [place] [address] Jun, [facility] [id number] [place] [address] May, [facility] [address] [id number] [place] [address] Jul, [facility] [address] [id number] [place] [address] Jul, [facility] [address] [id number] [place] [address] Jul, [facility] [address] [id number] [place] [address] Jul, [facility] [address] [id number] [place] [address] Jun, [facility] [id number] [place] [address] Jun, [facility] [address] [id number] [place] [address] May, IMMUNIZATIONS No Known Immunizations SOCIAL HISTORY [...]
--- OUTSIDE RECORDS SUMMARY | 2020-01-03 21:22 | XMS REPORT ---
Author Author Stevie Rivera Doctor Organization [facility] Address Unknown Phone Unavailable Care Team Providers Care Charging Plug Placer Name Role Phone Migration, Doctor Unavailable Unavailable PROBLEMS Type Condition ICD9-CM Code APJ18-QE Code Onset Dates Condition S tatus SNOMED Code Problem Depressive disorder, not elsewhere classified F32. 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 Active 022089555 Problem Status post amputation of toe of right foot Z89.42 1 Active 197176146 Problem Peripheral vascular disease I73.9 Ac tive 219632810 Problem Chronic hepatitis C without hepatic coma B18.2 Active 684950198 Problem BMI 32.0-32.9,adult Z68.32 Active 994571802 Problem Venous insufficiency I87.2 Active 80123538 Problem Type 2 diabetes mellitus with other specified complication E11.69 Active 19475018808171 Problem Long-term insulin use Z79.4 Active 596398798 Problem Osteomyelitis M86.9 Active 662738 00 Problem Acquired absence of right great toe Z89.411 Active 628457786 Problem 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 Active 298064432 Problem Coronary artery disease invo lving [place] coronary artery of [place] heart without angina pectoris I25.10 Active 1641 664528920 Problem Coronary artery disease invo lving [place] coronary artery of [place] heart without angina pectoris I25.10 Active 1641 [id number] ALLERGIES No Information ENCOUNTERS Encounter Location Date Diagnosis [facility] [address] [id number] [place] [address] Jun, [facility] [address] [id number] [place] [address] Jun, Type 2 diabetes mellitus with other spec ified complication E11.69 ; Interstitial pulmonary fibrosis J84.10 and Venous insufficiency I87.2 [place] [address] [address] 11 May, 2019 Coronary artery disease involving [place] coronary artery of [place] heart without angina pectoris I25.10 ; Type 2 diabetes mellitus with other specified complication E11.69 and Long-term insulin use Z79.4 [place] [address] [address] 07 May, 2019 [place] [address] [address] May, [place] [address] [address] Apr, Type 2 diabetes mellitus with other spec ified complication E11.69 ; Coronary artery disease involving [place] coronary artery of [place] heart without angina pectoris I25.10 and Encounter for immunization Z23 [place] [address] [address] Apr, [place] [address] [address] Apr, [place] [address] [address] December, Chronic hepatitis C without hepatic coma B18.2 and Type 2 diabetes mellitus with other specified complication E11.69 [place] [address] [address] Nov, Abnormal PSA R97.20 [place] [address] [address] Nov, [place] [address] [address] Nov, Encounter for Medicare annual wellness e xam Z00.00 ; Type 2 diabetes mellitus with other specified complication E11.69 ; Peripheral vascular disease I73.9 ; Encounter for immunization Z23 ; Liver transplant recipient Z94.4 ; Acquired absence of right great toe Z89.411 ; 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 and Routine adult health maintenance Z00.00 [place] [address] [address] Nov, Medicare annual wellness visit, initial Z00.00 ; Type 2 diabetes mellitus with other specified complication E11.69 ; Depressive disorder, not elsewhere classified F32.9 ; Peripheral vascular disease I73.9 ; Encounter for immunization Z23 ; Liver transplant recipient Z94.4 ; Status post amputation of toe of right foot Z89.421 and BMI 32.0-32.9,adult Z68.32 [place] [address] [address] 13 Oct, 2017 [place] [address] [address] Oct, [place] [address] [address] Oct, Type 2 diabetes mellitus with other spec ified complication E11.69 ; Chronic hepatitis C without hepatic coma B18.2 and Depressive disorder, not elsewhere classified F32.9 [place] [address] [address] Sep, [place] [address] [address] Sep, [place] [address] [address] Sep, [place] [address] [place] [id number] [place] [id number] Sep, Diabetes E11.9 [place] [address] [address] Sep, [facility] [address] [place] [id number] Sep Peripheral vascular disease I73.9 ; 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 ; Status post amputation of toe of right foot Z89.421 ; Type 2 diabetes mellitus with other specified complication E11.69 and Liver transplant recipient Z94.4 [place] [address] [place] [id number] [place] [id number] Sep, [facility] [address] [place] [id number] Sep Status post amputation of toe of right foot Z89.421 ; 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 ; Osteomyelitis M86.9 ; Diabetes E11.9 ; Liver transplant recipient Z94.4 and History of drug abuse Z87.898 [facility] [address] [id number] [id number] Sep, [facility] [address] [address] Jan, [place] [address] [address] Jan, [place] [address] [address] December, Diabetes E11.9 ; Back pain M54.9 and Ane sapna due to other cause D64.89 [place] [address] [address] December, Osteomyelitis, unspecified M86.9 [place] [address] [address] December, [place] [address] [address] December, Diabetes E11.9 [facility] [address] [address] Jan, Seborrheic keratoses L82.1 and Abscess o f neck L02.11 [place] [address] [place] [id number] [place] [address] Jan, Sebaceous cyst L72.3 [facility] [address] [facility] [id number] [address] [place] [address] Jan, Abscess, neck L02.11 [facility] [address] [id number] [place] [address] Oct, Diabetes E11.9 [facility] [address] [address] Oct, Back pain M54.9 [facility] [address] [address] Sep, Back pain M54.9 [facility] [address] [address] Sep, Back pain M54.9 [facility] [address] [address] Aug, Back pain M54.9 [facility] [address] [address] Aug, Diabetes E11.9 and Liver transplant reci cara Z94.4 [facility] [address] [address] Aug, Back pain M54.9 [facility] [address] [address] Jul, [facility] [address] [address] Jul, [facility] [address] [address] Jul, [facility] [address] [address] Jun, Depressive disorder, not elsewhere class ified F32.9 [facility] [address] [address] Jun, Diabetes E11.9 ; Depressive disorder, no t elsewhere classified F32.9 and Back pain M54.9 [facility] [address] [address] Jun, [facility] [address] [address] Jun, [facility] [address] [address] May, [facility] [address] [place] [address] May, [facility] [address] [place] [id number] [place] [address] Apr, [facility] [address] [place] [id number] [place] [address] Apr, [facility] [address] [place] [id number] [place] [address] Mar, [facility] [address] [place] [id number] [place] [address] Mar, [facility] [place] [facility] [address] [id number] [place] [id number] Mar, Dental examination V72.2 [facility] [address] [place] [id number] [place] [address] Jan, [facility] [address] [place] [id number] [place] [address] Jan, [facility] [address] [place] [id number] [place] [address] Jan, [facility] [address] [place] [id number] [place] [address] Jan, [facility] [address] [place] [id number] [place] [address] Jan, [facility] [address] [place] [id number] [place] [address] December, [facility] [address] [place] [id number] [place] [address] December, [facility] [address] [place] [id number] [place] [address] December, Diabetes mellitus type 2, uncontrolled 2 50.02 and Osteomyelitis of ankle or foot 730.27 [facility] [address] [place] [id number] [place] [address] December, [facility] [address] [place] [id number] [place] [address] Nov, [facility] [address] [place] [id number] [place] [address] Nov, [facility] [place] [facility] [address] [facility] [id number] [place] [address] Oct, [facility] [place] [facility] [address] [id number] [place] [address] Oct, [facility] [place] [facility] [address] [id number] [place] [address] Oct, [facility] [place] [facility] [address] [id number] [place] [address] Oct, [facility] [place] [facility] [address] [id number] [place] [address] Sep, [facility] [place] [facility] [address] [id number] [place] [address] Sep, [facility] [place] [facility] [address] [id number] [place] [address] Sep, [facility] [place] [facility] [address] [id number] [place] [address] Sep, [facility] [place] [facility] [address] [id number] [place] [address] Aug, [facility] [place] [facility] [address] [id number] [place] [address] Aug, [facility] [place] [facility] [address] [id number] [place] [address] Aug, [facility] [place] [facility] [address] [id number] [place] [address] Aug, [facility] [place] [facility] [address] [id number] [place] [address] Aug, [facility] [place] [facility] [address] [id number] [place] [address] Aug, [facility] [place] [facility] [address] [id number] [place] [address] Jul, [facility] [place] [facility] [address] [id number] [place] [address] Jul, [facility] [place] [facility] [address] [id number] [place] [address] Jul, [facility] [place] [facility] [address] [id number] [place] [address] Jul, [facility] [place] [facility] [address] [id number] [place] [address] Jul, [facility] [place] [facility] [address] [id number] [place] [address] Jul, [facility] [place] [facility] [address] [id number] [place] [address] Jun, [facility] [place] [facility] [address] [id number] [place] [address] Jun, [facility] [place] [facility] [address] [id number] [place] [address] Jun, [facility] [place] [facility] [address] [id number] [place] [address] Jun, [facility] [place] [facility] [address] [id number] [place] [address] May, [facility] [place] [facility] [address] [id number] [place] [address] May, [facility] [place] [facility] [address] [id number] [place] [address] May, [facility] [place] [facility] [address] [id number] [place] [address] May, [facility] [place] [facility] [address] [id number] [place] [address] May, [facility] [place] [facility] [address] [id number] [place] [address] May, [facility] [place] [facility] [address] [id number] [place] [address] Apr, [facility] [place] [facility] [address] [id number] [place] [address] Apr, [facility] [place] [facility] [address] [id number] [place] [address] Apr, [facility] [place] [facility] [address] [facility] [id number] [facility] [place] [address] Apr, [facility] [place] [facility] [address] [facility] [id number] [facility] [address] Mar, [facility] [place] [facility] [address] [id number] [place] [address] Mar, [facility] [place] [facility] [address] [facility] [id number] [place] [address] Mar, [facility] [place] [facility] [address] [facility] [id number] [facility] [address] Mar, [facility] [place] [facility] [address] [id number] [place] [address] Jan, [facility] [place] [facility] [address] [id number] [place] [address] Jan, [facility] [place] [facility] [address] [id number] [place] [address] Jan, [facility] [place] [facility] [address] [facility] [id number] [place] [address] Jan, [facility] [place] [facility] [address] [id number] [place] [address] Jan, [facility] [place] [facility] [address] [id number] [place] [address] Jan, [facility] [place] [facility] [address] [id number] [place] [address] Jan, [facility] [place] [facility] [address] [facility] [id number] [place] [address] Jan, [facility] [place] [facility] [address] [id number] [place] [address] Jan, [facility] [place] [facility] [address] [id number] [place] [address] Jan, [facility] [place] [facility] [address] [id number] [place] [address] Jan, [facility] [place] [facility] [address] [id number] [place] [address] Jan, [facility] [place] [facility] [address] [id number] [place] [address] December, [facility] [place] [facility] [address] [id number] [place] [address] December, [facility] [place] [facility] [address] [id number] [place] [address] December, [facility] [place] [facility] [address] [id number] [place] [address] December, [facility] [place] [facility] [address] [id number] [place] [address] December, [facility] [place] [facility] [address] [id number] [place] [address] December, [facility] [place] [facility] [address] [id number] [place] [address] Nov, [facility] [place] [facility] [address] [id number] [place] [address] Nov, [facility] [place] [facility] [address] [id number] [place] [address] Nov, [facility] [place] [facility] [address] [id number] [place] [address] Nov, [facility] [place] [facility] [address] [id number] [place] [address] Nov, [facility] [place] [facility] [address] [id number] [place] [address] Nov, [facility] [place] [facility] [address] [id number] [place] [address] Oct, [facility] [place] [facility] [address] [id number] [place] [address] Oct, [facility] [place] [facility] [address] [id number] [place] [address] Oct, [facility] [place] [facility] [address] [id number] [place] [address] Oct, [facility] [place] [facility] [address] [id number] [facility] [place] [address] Sep, [facility] [place] [facility] [address] [id number] [place] [address] Sep, [facility] [place] [facility] [address] [id number] [place] [address] Sep, [facility] [place] [facility] [address] [id number] [place] [address] Sep, [facility] [place] [facility] [address] [facility] [id number] [facility] [place] [address] Sep, [facility] [place] [facility] [address] [id number] [place] [address] Sep, [facility] [place] [facility] [address] [id number] [place] [address] Sep, [facility] [place] [facility] [address] [id number] [place] [address] Sep, [facility] [place] [facility] [address] [id number] [place] [address] Sep, [facility] [place] [facility] [address] [id number] [place] [address] Sep, [facility] [place] [facility] [address] [id number] [place] [address] Aug, [facility] [place] [facility] [address] [id number] [place] [address] Aug, [facility] [place] [facility] [address] [id number] [place] [address] Aug, [facility] [place] [facility] [address] [id number] [place] [address] Aug, [facility] [place] [facility] [address] [id number] [place] [address] Aug, [facility] [place] [facility] [address] [id number] [place] [address] Aug, [facility] [place] [facility] [address] [id number] [place] [address] Jul, [facility] [place] [facility] [address] [id number] [place] [address] Jul, [facility] [place] [facility] [address] [id number] [place] [address] Jul, [facility] [place] [facility] [address] [id number] [place] [address] Jul, [facility] [place] [facility] [address] [id number] [place] [address] Jul, [facility] [place] [facility] [address] [id number] [place] [address] Jul, [facility] [place] [facility] [address] [id number] [place] [address] Jul, [facility] [place] [facility] [address] [id number] [place] [address] Jul, [facility] [place] [facility] [address] [id number] [place] [address] Jul, [facility] [place] [facility] [address] [id number] [place] [address] Jul, [facility] [place] [facility] [address] [id number] [place] [address] Jun, [facility] [place] [facility] [address] [id number] [place] [address] Jun, [facility] [place] [facility] [address] [id number] [place] [address] Jun, [facility] [place] [facility] [address] [id number] [place] [address] Jun, [facility] [place] [facility] [address] [place] [id number] [place] [address] May, [facility] [place] [facility] [address] [id number] [place] [address] May, [facility] [place] [facility] [address] [id number] [place] [address] Apr, [facility] [place] [facility] [address] [id number] [place] [address] Apr, [facility] [place] [facility] [address] [id number] [place] [address] 05 Apr, 2013 [facility] [place] [facility] [address] [id number] [place] [address] Mar, [facility] [place] [facility] [address] [id number] [place] [address] Mar, [facility] [place] [facility] [address] [facility] [id number] [place] [address] Jan, [facility] [place] [facility] [address] [id number] [place] [address] Jan, [facility] [place] [facility] [address] [id number] [place] [address] Jan, [facility] [place] [facility] [address] [id number] [place] [address] Jan, [facility] [place] [facility] [address] [id number] [place] [address] Jan, [facility] [place] [facility] [address] [id number] [place] [address] Jan, [facility] [place] [facility] [address] [id number] [place] [address] Jan, [facility] [place] [facility] [address] [id number] [place] [address] December, [facility] [place] [facility] [address] [id number] [place] [address] December, [facility] [place] [facility] [address] [id number] [place] [address] December, [facility] [place] [facility] [address] [id number] [place] [address] Nov, [facility] [place] [facility] [address] [id number] [place] [address] Nov, [facility] [place] [facility] [address] [id number] [place] [address] Oct, [facility] [place] [facility] [address] [id number] [place] [address] Oct, [facility] [place] [facility] [address] [id number] [place] [address] Sep, [facility] [address] [id number] [place] [address] Sep, [facility] [address] [id number] [place] [address] Aug, [facility] [address] [id number] [place] [address] Aug, [facility] [address] [id number] [place] [address] Jul, [facility] [address] [id number] [place] [address] Jul, [facility] [address] [id number] [place] [address] Jul, [facility] [address] [id number] [place] [address] Jul, [facility] [address] [id number] [place] [address] Jul, [facility] [address] [id number] [place] [address] Jul, [facility] [address] [id number] [place] [address] Jul, [facility] [address] [id number] [place] [address] Jul, [facility] [id number] [place] [address] Jun, [facility] [address] [id number] [place] [address] Jun, [facility] [address] [id number] [place] [address] Jun, [facility] [address] [id number] [place] [address] Jun, [facility] [address] [id number] [place] [address] Jun, [facility] [address] [id number] [place] [address] Jun, [facility] [id number] [place] [address] Jun, [facility] [address] [id number] [place] [address] Jun, [facility] [address] [id number] [place] [address] Jun, [facility] [address] [id number] [place] [address] Jun, [facility] [id number] [place] [address] May, [facility] [address] [id number] [place] [address] May, [facility] [address] [id number] [place] [address] May, [facility] [address] [id number] [place] [address] Apr, [facility] [address] [id number] [place] [address] Apr, [facility] [address] [id number] [place] [address] Mar, [facility] [address] [id number] [place] [address] Mar, [facility] [id number] [place] [address] Jan, [facility] [address] [id number] [place] [address] Jan, [facility] [address] [id number] [place] [address] Jan, [facility] [address] [id number] [place] [address] Jan, [facility] [address] [id number] [place] [address] Jan, [facility] [address] [id number] [place] [address] December, [facility] [address] [id number] [place] [address] December, [facility] [address] [id number] [place] [address] Nov, [facility] [address] [id number] [place] [address] Nov, [facility] [address] [id number] [place] [address] Oct, [facility] [address] [id number] [place] [address] Oct, [facility] [address] [id number] [place] [address] Oct, [facility] [address] [id number] [place] [address] Oct, [facility] [address] [id number] [place] [address] Sep, [facility] [address] [id number] [place] [address] Sep, [facility] [address] [id number] [place] [address] Sep, [facility] [address] [id number] [place] [address] Sep, [facility] [address] [id number] [place] [address] 15 Sep, 2011 [facility] [address] [id number] [place] [address] Sep, [facility] [address] [id number] [place] [address] 15 Sep, 2011 [facility] [address] [id number] [place] [address] 15 Sep, 2011 [facility] [address] [id number] [place] [address] 10 Sep, 2011 [facility] [id number] [place] [address] 27 Aug, 2011 [facility] [address] [id number] [place] [address] Aug, [facility] [address] [id number] [place] [address] Jul, [facility] [id number] [place] [address] Jul, [facility] [id number] [place] [address] Jul, [facility] [id number] [place] [address] Jul, [facility] [address] [id number] [place] [address] Jul[facility] [id number] [place] [address] Jun, [facility] [id number] [place] [address] Jun, [facility] [id number] [place] [address] Jun, [facility] [address] [id number] [place] [address] Jun, [facility] [id number] [place] [address] Jun, [facility] [address] [id number] [place] [address] May, [facility] [id number] [place] [address] 31 Jul, 2010 [facility] [address] [id number] [place] [address] Jul, [facility] [address] [id number] [place] [address] Jul, [facility] [address] [id number] [place] [address] Jul, [facility] [address] [id number] [place] [address] Jun, [facility] [address] [id number] [place] [address] Jun, [facility] [address] [id number] [place] [address] May, IMMUNIZATIONS No Known Immunizations SOCIAL HISTORY [...]
--- OUTSIDE RECORDS SUMMARY | 2020-01-03 21:22 | XMS REPORT ---
Author Author Stevie QUIÑONEZ Organization [facility] Address [address] [place] [address] Care Team Providers Care Band Teacher Name Role Phone SUSAN QUIÑONEZ Unavailable PROBLEMS Type Condition ICD9-CM Code HOI08-EP Code Onset Dates Condition S tatus SNOMED Code Problem Depressive disorder, not elsewhere classified F32. 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 Active 824944099 Problem Status post amputation of toe of right foot Z89.42 1 Active 841632884 Problem Peripheral vascular disease I73.9 Ac tive 236023509 Problem Chronic hepatitis C without hepatic coma B18.2 Active 317491076 Problem BMI 32.0-32.9,adult Z68.32 Active 081553203 Problem Venous insufficiency I87.2 Active 58278237 Problem Type 2 diabetes mellitus with other specified complication E11.69 Active 58450598694225 Problem Long-term insulin use Z79.4 Active 296021663 Problem Osteomyelitis M86.9 Active 483118 00 Problem Acquired absence of right great toe Z89.411 Active 284091416 Problem 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 [place] [address] Jun, [facility] [address] [id number] [place] [address] Jun, Type 2 diabetes mellitus with other spec ified complication E11.69 ; Interstitial pulmonary fibrosis J84.10 and Venous insufficiency I87.2 [place] [address] [address] 11 May, 2019 Coronary artery disease involving [place] coronary artery of [place] heart without angina pectoris I25.10 ; Type 2 diabetes mellitus with other specified complication E11.69 and Long-term insulin use Z79.4 [place] [address] [address] 07 May, 2019 [place] [address] [address] May, [place] [address] [address] Apr, Type 2 diabetes mellitus with other spec ified complication E11.69 ; Coronary artery disease involving [place] coronary artery of [place] heart without angina pectoris I25.10 and Encounter for immunization Z23 [place] [address] [address] Apr, [place] [address] [address] Apr, [place] [address] [address] December, Chronic hepatitis C without hepatic coma B18.2 and Type 2 diabetes mellitus with other specified complication E11.69 [place] [address] [address] Nov, Abnormal PSA R97.20 [place] [address] [address] Nov, [place] [address] [address] Nov, Encounter for Medicare annual wellness e xam Z00.00 ; Type 2 diabetes mellitus with other specified complication E11.69 ; Peripheral vascular disease I73.9 ; Encounter for immunization Z23 ; Liver transplant recipient Z94.4 ; Acquired absence of right great toe Z89.411 ; 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 and Routine adult health maintenance Z00.00 [place] [address] [address] 23 Nov, 2017 Medicare annual wellness visit, initial Z00.00 ; Type 2 diabetes mellitus with other specified complication E11.69 ; Depressive disorder, not elsewhere classified F32.9 ; Peripheral vascular disease I73.9 ; Encounter for immunization Z23 ; Liver transplant recipient Z94.4 ; Status post amputation of toe of right foot Z89.421 and BMI 32.0-32.9,adult Z68.32 [place] [address] [address] 13 Oct, 2017 [place] [address] [address] Oct, [place] [address] [address] Oct, Type 2 diabetes mellitus with other spec ified complication E11.69 ; Chronic hepatitis C without hepatic coma B18.2 and Depressive disorder, not elsewhere classified F32.9 [place] [address] [address] Sep, [place] [address] [address] Sep, [place] [address] [address] Sep, [place] [address] [id number] [id number] Sep, Diabetes E11.9 [place] [address] [address] Sep, [facility] [address] [id number] Sep Peripheral vascular disease I73.9 ; 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 ; Status post amputation of toe of right foot Z89.421 ; Type 2 diabetes mellitus with other specified complication E11.69 and Liver transplant recipient Z94.4 [place] [address] [id number] [id number] Sep, [facility] [address] [id number] Sep Status post amputation of toe of right foot Z89.421 ; 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 ; Osteomyelitis M86.9 ; Diabetes E11.9 ; Liver transplant recipient Z94.4 and History of drug abuse Z87.898 [facility] [address] [id number] [id number] Sep, [facility] [address] [address] Jan, [place] [address] [address] Jan, [place] [address] [address] December, Diabetes E11.9 ; Back pain M54.9 and Ane sapna due to other cause D64.89 [place] [address] [address] December, Osteomyelitis, unspecified M86.9 [place] [address] [address] December, [place] [address] [address] December, Diabetes E11.9 [place] [address] [address] Jan, Seborrheic keratoses L82.1 and Abscess o f neck L02.11 [place] [address] [address] Jan, Sebaceous cyst L72.3 [facility] [address] [facility] [id number] [place] [address] Jan, Abscess, neck L02.11 [facility] [address] [address] Oct, Diabetes E11.9 [facility] [address] [facility] [place] [address] Oct, Back pain M54.9 [facility] [address] [address] Sep, Back pain M54.9 [facility] [address] [address] Sep, Back pain M54.9 [facility] [address] [address] Aug, Back pain M54.9 [facility] [address] [address] Aug, Diabetes E11.9 and Liver transplant reci cara Z94.4 [facility] [address] [address] Aug, Back pain M54.9 [facility] [address] [address] Jul, [facility] [address] [address] Jul, [facility] [address] [address] Jul, [facility] [address] [address] Jun, Depressive disorder, not elsewhere class ified F32.9 [facility] [address] [address] Jun, Diabetes E11.9 ; Depressive disorder, no t elsewhere classified F32.9 and Back pain M54.9 [facility] [address] [address] Jun, [facility] [address] [address] Jun, [facility] [address] [address] May, [facility] [address] [id number] [place] [address] May, [facility] [address] [id number] [place] [address] Apr, [facility] [address] [id number] [place] [address] Apr, [facility] [address] [place] [id number] [place] [address] Mar, [facility] [address] [id number] [place] [address] Mar, [facility] [address] [id number] [place] [id number] Mar, Dental examination V72.2 [facility] [address] [id number] [place] [address] Jan, [facility] [address] [place] [address] [id number] [place] [address] Jan, [facility] [address] [id number] [place] [address] Jan, [facility] [address] [place] [address] [id number] [place] [address] Jan, [facility] [address] [id number] [place] [address] Jan, [facility] [address] [place] [id number] [place] [address] December, [facility] [address] [id number] [place] [address] December, [facility] [address] [place] [address] [id number] [place] [address] December, Diabetes mellitus type 2, uncontrolled 2 50.02 and Osteomyelitis of ankle or foot 730.27 [facility] [address] [id number] [place] [address] December, [facility] [address] [place] [id number] [place] [address] 2014 [facility] [address] [facility] [id number] [place] [address] Nov, [facility] [address] [id number] [place] [address] Oct, [facility] [address] [id number] [place] [address] Oct, [facility] [address] [id number] [place] [address] Oct, [facility] [address] [id number] [place] [address] Oct, [facility] [address] [id number] [place] [address] Sep, [facility] [address] [id number] [place] [address] Sep, [facility] [address] [id number] [place] [address] Sep, [facility] [address] [id number] [place] [address] Sep, [facility] [address] [id number] [place] [address] Aug, [facility] [address] [id number] [place] [address] Aug, [facility] [address] [id number] [place] [address] Aug, [facility] [address] [id number] [place] [address] Aug, [facility] [address] [id number] [place] [address] Aug, [facility] [address] [id number] [place] [address] Aug, [facility] [address] [id number] [place] [address] Jul, [facility] [address] [id number] [place] [address] Jul, [facility] [address] [id number] [place] [address] Jul, [facility] [address] [id number] [place] [address] Jul, [facility] [address] [id number] [place] [address] Jul, [facility] [address] [id number] [place] [address] Jul, [facility] [address] [id number] [place] [address] Jun, [facility] [address] [id number] [place] [address] Jun, [facility] [address] [place] [id number] [place] [address] Jun, [facility] [address] [id number] [place] [address] Jun, [facility] [address] [id number] [place] [address] May, [facility] [address] [id number] [place] [address] May, [facility] [address] [id number] [place] [address] May, [facility] [address] [id number] [place] [address] May, [facility] [address] [id number] [place] [address] May, [facility] [address] [id number] [place] [address] May, [facility] [address] [id number] [place] [address] Apr, [facility] [address] [id number] [place] [address] Apr, [facility] [address] [facility] [id number] [place] [address] Apr, [facility] [address] [facility] [id number] [place] [address] Apr, [facility] [address] [id number] [place] [address] Mar, [facility] [address] [facility] [id number] [place] [address] Mar, [facility] [address] [facility] [id number] [place] [address] Mar, [facility] [address] [facility] [id number] [place] [address] Mar, [facility] [address] [id number] [place] [address] Jan, [facility] [address] [id number] [place] [address] Jan, [facility] [address] [id number] [place] [address] Jan, [facility] [address] [id number] [place] [address] Jan, [facility] [address] [id number] [place] [address] Jan, [facility] [address] [id number] [place] [address] Jan, [facility] [address] [id number] [place] [address] Jan, [facility] [address] [id number] [place] [address] Jan, [facility] [address] [id number] [place] [address] Jan, [facility] [address] [id number] [place] [address] Jan, [facility] [address] [id number] [place] [address] Jan, [facility] [address] [facility] [id number] [place] [address] Jan, [facility] [address] [id number] [place] [address] December, [facility] [address] [id number] [place] [address] December, [facility] [address] [id number] [place] [address] December, [facility] [address] [id number] [place] [address] December, [facility] [address] [id number] [place] [address] December, [facility] [address] [id number] [place] [address] December, [facility] [address] [id number] [place] [address] Nov, [facility] [address] [id number] [place] [address] Nov, [facility] [address] [id number] [place] [address] Nov, [facility] [address] [id number] [place] [address] Nov, [facility] [address] [id number] [place] [address] Nov, [facility] [address] [id number] [place] [address] Nov, [facility] [address] [id number] [place] [address] Oct, [facility] [address] [id number] [place] [address] Oct, [facility] [address] [id number] [place] [address] Oct, [facility] [address] [facility] [id number] [place] [address] Oct, [facility] [address] [facility] [id number] [place] [address] Sep, [facility] [address] [facility] [id number] [place] [address] Sep, [facility] [address] [id number] [place] [address] Sep, [facility] [address] [facility] [id number] [place] [address] Sep, [facility] [address] [id number] [place] [address] Sep, [facility] [address] [id number] [place] [address] Sep, [facility] [address] [id number] [place] [address] Sep, [facility] [address] [id number] [place] [address] Sep, [facility] [address] [id number] [place] [address] Sep, [facility] [address] [id number] [place] [address] Sep, [facility] [address] [id number] [place] [address] Aug, [facility] [address] [id number] [place] [address] Aug, [facility] [address] [id number] [place] [address] Aug, [facility] [address] [id number] [place] [address] Aug, [facility] [address] [id number] [place] [address] Aug, [facility] [address] [id number] [place] [address] Aug, [facility] [address] [id number] [place] [address] Jul, [facility] [address] [id number] [place] [address] Jul, [facility] [address] [id number] [place] [address] Jul, [facility] [address] [id number] [place] [address] Jul, [facility] [address] [id number] [place] [address] Jul, [facility] [address] [id number] [place] [address] Jul, [facility] [address] [id number] [place] [address] Jul, [facility] [address] [id number] [place] [address] Jul, [facility] [address] [id number] [place] [address] Jul, [facility] [address] [id number] [place] [address] Jul, [facility] [address] [id number] [place] [address] Jun, [facility] [address] [id number] [place] [address] Jun, [facility] [address] [id number] [place] [address] Jun, [facility] [id number] [place] [address] Jun, [facility] [address] [id number] [place] [address] May, [facility] [id number] [place] [address] May, [facility] [address] [id number] [place] [address] 27 Apr, 2013 [facility] [address] [id number] [place] [address] 20 Apr, 2013 [facility] [address] [id number] [place] [address] 05 Apr, 2013 [facility] [address] [id number] [place] [address] Mar, [facility] [address] [id number] [place] [address] Mar, [facility] [address] [id number] [place] [address] Jan, [facility] [address] [id number] [place] [address] Jan, [facility] [address] [id number] [place] [address] Jan, [facility] [address] [id number] [place] [address] Jan, [facility] [address] [id number] [place] [address] Jan, [facility] [address] [id number] [place] [address] Jan, [facility] [address] [id number] [place] [address] Jan, [facility] [address] [id number] [place] [address] December, [facility] [address] [id number] [place] [address] December, [facility] [address] [id number] [place] [address] December, [facility] [address] [id number] [place] [address] Nov, [facility] [address] [id number] [place] [address] Nov, [facility] [address] [id number] [place] [address] Oct, [facility] [address] [id number] [place] [address] Oct, [facility] [address] [id number] [place] [address] Sep, [facility] [address] [id number] [place] [address] Sep, [facility] [address] [id number] [place] [address] Aug, [facility] [address] [id number] [place] [address] Aug, [facility] [address] [id number] [place] [address] Jul, [facility] [address] [id number] [place] [address] Jul, [facility] [address] [id number] [place] [address] Jul, [facility] [address] [id number] [place] [address] Jul, [facility] [address] [id number] [place] [address] Jul, [facility] [address] [id number] [place] [address] Jul, [facility] [address] [id number] [place] [address] Jul, [facility] [address] [id number] [place] [address] Jul, [facility] [address] [id number] [place] [address] Jun, [facility] [id number] [place] [address] Jun, [facility] [address] [id number] [place] [address] Jun, [facility] [address] [id number] [place] [address] Jun, [facility] [address] [id number] [place] [address] Jun, [facility] [address] [id number] [place] [address] Jun, [facility] [address] [id number] [place] [address] Jun, [facility] [address] [id number] [place] [address] Jun, [facility] [address] [id number] [place] [address] Jun, [facility] [address] [id number] [place] [address] Jun, [facility] [address] [id number] [place] [address] May, [facility] [address] [address] [id number] [place] [address] May, [facility] [address] [id number] [place] [address] May, [facility] [address] [id number] [place] [address] Apr, [facility] [address] [id number] [place] [address] Apr, [facility] [address] [id number] [place] [address] Mar, [facility] [id number] [place] [address] Mar, [facility] [address] [id number] [place] [address] Jan, [facility] [address] [id number] [place] [address] Jan, [facility] [address] [id number] [place] [address] Jan, [facility] [address] [id number] [place] [address] Jan, [facility] [address] [id number] [place] [address] Jan, [facility] [address] [id number] [place] [address] December, [facility] [address] [id number] [place] [address] December, [facility] [address] [id number] [place] [address] Nov, [facility] [address] [id number] [place] [address] Nov, [facility] [address] [id number] [place] [address] Oct, [facility] [address] [id number] [place] [address] Oct, [facility] [address] [id number] [place] [address] Oct, [facility] [address] [id number] [place] [address] Oct, [facility] [address] [id number] [place] [address] Sep, [facility] [address] [id number] [place] [address] Sep, [facility] [address] [id number] [place] [address] Sep, [facility] [address] [id number] [place] [address] Sep, [facility] [address] [id number] [place] [address] Sep, [facility] [address] [id number] [place] [address] 15 Sep, 2011 [facility] [address] [id number] [place] [address] 15 Sep, 2011 [facility] [address] [id number] [place] [address] 15 Sep, 2011 [facility] [id number] [place] [address] 10 Sep, 2011 [facility] [id number] [place] [address] Aug, [facility] [address] [id number] [place] [address] Aug, [facility] [id number] [place] [address] Jul, [facility] [id number] [place] [address] Jul, [facility] [id number] [place] [address] Jul, [facility] [id number] [place] [address] Jul, [facility] [id number] [place] [address] Jul, [facility] [id number] [place] [address] Jun, [facility] [id number] [place] [address] Jun, [facility] [id number] [place] [address] Jun, [facility] [id number] [place] [address] Jun, [facility] [id number] [place] [address] Jun, [facility] [id number] [place] [address] May, [facility] [address] [id number] [place] [address] Jul, [facility] [address] [id number] [place] [address] Jul, [facility] [address] [id number] [place] [address] Jul, [facility] [address] [id number] [place] [address] Jul, [facility] [address] [id number] [place] [address] Jun, [facility] [id number] [place] [address] Jun, [facility] [address] [id number] [place] [address] May, IMMUNIZATIONS No Known Immunizations SOCIAL HISTORY [...]
--- OUTSIDE RECORDS SUMMARY | 2020-01-03 21:22 | XMS REPORT ---
Author Author Stevie QUIÑONEZ Organization [facility] Address [address] [place] [address] Care Team Providers Care Technician Chemical Cleaning Name Role Phone SUSAN QUIÑONEZ Unavailable PROBLEMS Type Condition ICD9-CM Code INM14-PE Code Onset Dates Condition S tatus SNOMED Code Problem Depressive disorder, not elsewhere classified F32. 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.42 1 Active 395721686 Problem Peripheral vascular disease I73.9 Ac tive 167245608 Problem Chronic hepatitis C without hepatic coma B18.2 Active 449831115 Problem BMI 32.0-32.9,adult Z68.32 Active 135202680 Problem Venous insufficiency I87.2 Active 16521211 Problem Type 2 diabetes mellitus with other specified complication E11.69 Active [id number] Problem Long-term insulin use Z79.4 Active 434483642 Problem Osteomyelitis M86.9 Active 884484 00 Problem Acquired absence of right great toe Z89.411 Active 756419497 Problem 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 Active 608828680 Problem Coronary artery disease invo lving 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 I25.10 Active 1641 472875533 Problem Coronary artery disease invo lving 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 I25.10 Active 1641 [id number] ALLERGIES No Information ENCOUNTERS Encounter Location Date Diagnosis [facility] [id number] [place] [address] Jun, [facility] [id number] [place] [address] Jun, Type 2 diabetes mellitus with other spec ified complication E11.69 ; Interstitial pulmonary fibrosis J84.10 and Venous insufficiency I87.2 [place] [address] [address] 11 May, 2019 Coronary artery disease involving 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 I25.10 ; Type 2 diabetes mellitus with other specified complication E11.69 and Long-term insulin use Z79.4 [place] [address] [address] 07 May, 2019 [place] [address] [address] May, [place] [address] [address] Apr, Type 2 diabetes mellitus with other spec ified complication E11.69 ; Coronary artery disease involving 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 I25.10 and Encounter for immunization Z23 [place] [address] [address] Apr, [place] [address] [address] Apr, [place] [address] [address] December, Chronic hepatitis C without hepatic coma B18.2 and Type 2 diabetes mellitus with other specified complication E11.69 [place] [address] [address] Nov, Abnormal PSA R97.20 [place] [address] [address] Nov, [place] [address] [address] Nov, Encounter for Medicare annual wellness e xam Z00.00 ; Type 2 diabetes mellitus with other specified complication E11.69 ; Peripheral vascular disease I73.9 ; Encounter for immunization Z23 ; Liver transplant recipient Z94.4 ; Acquired absence of right great toe Z89.411 ; 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 and Routine adult health maintenance Z00.00 [place] [address] [address] 23 Nov, 2017 Medicare annual wellness visit, initial Z00.00 ; Type 2 diabetes mellitus with other specified complication E11.69 ; Depressive disorder, not elsewhere classified F32.9 ; Peripheral vascular disease I73.9 ; Encounter for immunization Z23 ; Liver transplant recipient Z94.4 ; Status post amputation of toe of right foot Z89.421 and BMI 32.0-32.9,adult Z68.32 [place] [address] [address] 13 Oct, 2017 [place] [address] [address] Oct, [place] [address] [address] Oct, Type 2 diabetes mellitus with other spec ified complication E11.69 ; Chronic hepatitis C without hepatic coma B18.2 and Depressive disorder, not elsewhere classified F32.9 [place] [address] [address] Sep, [place] [address] [address] Sep, [place] [address] [address] Sep, [place] [address] [id number] [id number] Sep, Diabetes E11.9 [place] [address] [address] 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, 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[address] [id number] Sep Peripheral vascular disease I73.9 ; 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 ; Status post amputation of toe of right foot Z89.421 ; Type 2 diabetes mellitus with other specified complication E11.69 and Liver transplant recipient Z94.4 [place] [address] [id number] [place] [id number] 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, 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[address] [id number] 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 Status post amputation of toe of right foot Z89.421 ; 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 ; Osteomyelitis M86.9 ; Diabetes E11.9 ; Liver transplant recipient Z94.4 and History of drug abuse Z87.898 [facility] [address] [id number] [id number] Sep, [facility] [address] [address] Jan, [place] [address] [address] Jan, [place] [address] [address] December, Diabetes E11.9 ; Back pain M54.9 and Ane sapna due to other cause D64.89 [place] [address] [address] December, Osteomyelitis, unspecified M86.9 [place] [address] [address] December, [place] [address] [address] December, Diabetes E11.9 [place] [address] [address] Jan, Seborrheic keratoses L82.1 and Abscess o f neck L02.11 [place] [address] [address] Jan, Sebaceous cyst L72.3 [facility] [address] [facility] [id number] [place] [address] Jan, Abscess, neck L02.11 [facility] [address] [address] Oct, Diabetes E11.9 [facility] [id number] [place] [address] Oct, Back pain M54.9 [facility] [address] [address] Sep, Back pain M54.9 [facility] [address] [address] Sep, Back pain M54.9 [facility] [address] [address] Aug, Back pain M54.9 [facility] [address] [address] Aug, Diabetes E11.9 and Liver transplant reci cara Z94.4 [facility] [address] [address] Aug, Back pain M54.9 [facility] [address] [address] Jul, [facility] [address] [address] Jul, [facility] [address] [address] Jul, [facility] [address] [address] Jun, Depressive disorder, not elsewhere class ified F32.9 [facility] [address] [address] Jun, Diabetes E11.9 ; Depressive disorder, no t elsewhere classified F32.9 and Back pain M54.9 [facility] [address] [address] Jun, [facility] [address] [address] Jun, [facility] [address] [address] May, [facility] [id number] [place] [address] May, [facility] [id number] [place] [address] Apr, [facility] [id number] [place] [address] Apr, [facility] [address] [place] [id number] [place] [address] Mar, [facility] [id number] [place] [address] Mar, [facility] [address] [id number] [place] [id number] Mar, Dental examination V72.2 [facility] [id number] [place] [address] Jan, [facility] [address] [place] [id number] [place] [address] Jan, [facility] [id number] [place] [address] Jan, [facility] [address] [place] [id number] [place] [address] Jan, [facility] [id number] [place] [address] Jan, [facility] [address] [place] [id number] [place] [address] December, [facility] [id number] [place] [address] December, [facility] [address] [place] [id number] [place] [address] December, Diabetes mellitus type 2, uncontrolled 2 50.02 and Osteomyelitis of ankle or foot 730.27 [facility] [place] [id number] [place] [address] December, [facility] [address] [place] [id number] [place] [address] 2014 [facility] [address] [facility] [id number] [place] [address] Nov, [facility] [id number] [place] [address] Oct, [facility] [id number] [place] [address] Oct, [facility] [id number] [place] [address] Oct, [facility] [id number] [place] [address] Oct, [facility] [id number] [place] [address] Sep, [facility] [id number] [place] [address] Sep, [facility] [id number] [place] [address] Sep, [facility] [id number] [place] [address] Sep, [facility] [id number] [place] [address] Aug, [facility] [id number] [place] [address] Aug, [facility] [id number] [place] [address] Aug, [facility] [id number] [place] [address] Aug, [facility] [id number] [place] [address] Aug, [facility] [id number] [place] [address] Aug, [facility] [id number] [place] [address] Jul, [facility] [id number] [place] [address] Jul, [facility] [id number] [place] [address] Jul, [facility] [id number] [place] [address] Jul, [facility] [id number] [place] [address] Jul, [facility] [id number] [place] [address] Jul, [facility] [id number] [place] [address] Jun, [facility] [id number] [place] [address] Jun, [facility] [address] [place] [id number] [place] [address] Jun, [facility] [id number] [place] [address] Jun, [facility] [id number] [place] [address] May, [facility] [id number] [place] [address] May, [facility] [id number] [place] [address] May, [facility] [id number] [place] [address] May, [facility] [id number] [place] [address] May, [facility] [id number] [place] [address] May, [facility] [id number] [place] [address] Apr, [facility] [id number] [place] [address] Apr, [facility] [address] [facility] [id number] [facility] [place] [address] Apr, [facility] [address] [facility] [id number] [facility] [place] [address] Apr, [facility] [id number] [facility] [place] [address] Mar, [facility] [address] [facility] [id number] [facility] [place] [address] Mar, [facility] [address] [facility] [id number] [facility] [place] [address] Mar, [facility] [address] [facility] [id number] [place] [address] Mar, [facility] [id number] [place] [address] Jan, [facility] [id number] [place] [address] Jan, [facility] [id number] [place] [address] Jan, [facility] [id number] [place] [address] Jan, [facility] [id number] [place] [address] Jan, [facility] [id number] [place] [address] Jan, [facility] [id number] [place] [address] Jan, [facility] [id number] [place] [address] Jan, [facility] [id number] [place] [address] Jan, [facility] [id number] [place] [address] Jan, [facility] [id number] [place] [address] Jan, [facility] [address] [facility] [id number] [place] [address] Jan, [facility] [id number] [place] [address] December, [facility] [id number] [place] [address] December, [facility] [id number] [place] [address] December, [facility] [id number] [place] [address] December, [facility] [id number] [place] [address] December, [facility] [id number] [place] [address] December, [facility] [id number] [place] [address] Nov, [facility] [id number] [place] [address] Nov, [facility] [id number] [place] [address] Nov, [facility] [id number] [place] [address] Nov, [facility] [id number] [place] [address] Nov, [facility] [id number] [place] [address] Nov, [facility] [id number] [place] [address] Oct, [facility] [id number] [place] [address] Oct, [facility] [id number] [place] [address] Oct, [facility] [address] [facility] [id number] [place] [address] Oct, [facility] [address] [facility] [id number] [place] [address] Sep, [facility] [address] [facility] [id number] [place] [address] Sep, [facility] [id number] [place] [address] Sep, [facility] [address] [facility] [id number] [place] [address] Sep, [facility] [id number] [place] [address] Sep, [facility] [id number] [place] [address] Sep, [facility] [id number] [place] [address] Sep, [facility] [id number] [place] [address] Sep, [facility] [id number] [place] [address] Sep, [facility] [id number] [place] [address] Sep, [facility] [id number] [place] [address] Aug, [facility] [id number] [place] [address] Aug, [facility] [id number] [place] [address] Aug, [facility] [id number] [place] [address] Aug, [facility] [id number] [place] [address] Aug, [facility] [id number] [place] [address] Aug, [facility] [id number] [place] [address] Jul, [facility] [id number] [place] [address] Jul, [facility] [id number] [place] [address] Jul, [facility] [id number] [place] [address] Jul, [facility] [id number] [place] [address] Jul, [facility] [id number] [place] [address] Jul, [facility] [id number] [place] [address] Jul, [facility] [id number] [place] [address] Jul, [facility] [id number] [place] [address] Jul, [facility] [id number] [place] [address] Jul, [facility] [id number] [place] [address] Jun, [facility] [id number] [place] [address] Jun, [facility] [id number] [place] [address] Jun, [facility] [address] [id number] [place] [address] Jun, [facility] [id number] [place] [address] May, [facility] [address] [id number] [place] [address] May, [facility] [id number] [place] [address] 27 Apr, 2013 [facility] [id number] [place] [address] 20 Apr, 2013 [facility] [id number] [place] [address] 05 Apr, 2013 [facility] [id number] [place] [address] Mar, [facility] [id number] [place] [address] Mar, [facility] [id number] [place] [address] Jan, [facility] [id number] [place] [address] Jan, [facility] [id number] [place] [address] Jan, [facility] [id number] [place] [address] Jan, [facility] [id number] [place] [address] Jan, [facility] [id number] [place] [address] Jan, [facility] [id number] [place] [address] Jan, [facility] [id number] [place] [address] December, [facility] [id number] [place] [address] December, [facility] [id number] [place] [address] December, [facility] [id number] [place] [address] Nov, [facility] [id number] [place] [address] Nov, [facility] [id number] [place] [address] Oct, [facility] [id number] [place] [address] Oct, [facility] [id number] [place] [address] Sep, [facility] [id number] [place] [address] Sep, [facility] [id number] [place] [address] Aug, [facility] [id number] [place] [address] Aug, [facility] [id number] [place] [address] Jul, [facility] [id number] [place] [address] Jul, [facility] [id number] [place] [address] Jul, [facility] [id number] [place] [address] Jul, [facility] [id number] [place] [address] Jul, [facility] [id number] [place] [address] Jul, [facility] [id number] [place] [address] Jul, [facility] [id number] [place] [address] Jul, [facility] [id number] [place] [address] Jun, [facility] [id number] [place] [address] Jun, [facility] [id number] [place] [address] Jun, [facility] [id number] [place] [address] Jun, [facility] [id number] [place] [address] Jun, [facility] [id number] [place] [address] Jun, [facility] [id number] [place] [address] Jun, [facility] [id number] [place] [address] Jun, [facility] [id number] [place] [address] Jun, [facility] [id number] [place] [address] Jun, [facility] [id number] [place] [address] May, [facility] [id number] [place] [address] May, [facility] [id number] [place] [address] May, [facility] [id number] [place] [address] Apr, [facility] [id number] [place] [address] Apr, [facility] [id number] [place] [address] Mar, [facility] [id number] [place] [address] Mar, [facility] [id number] [place] [address] Jan, [facility] [id number] [place] [address] Jan, [facility] [id number] [place] [address] Jan, [facility] [id number] [place] [address] Jan, [facility] [id number] [place] [address] Jan, [facility] [id number] [place] [address] December, [facility] [id number] [place] [address] December, [facility] [id number] [place] [address] Nov, [facility] [id number] [place] [address] Nov, [facility] [id number] [place] [address] Oct, [facility] [id number] [place] [address] Oct, [facility] [id number] [place] [address] Oct, [facility] [id number] [place] [address] Oct, [facility] [id number] [place] [address] Sep, [facility] [id number] [place] [address] Sep, [facility] [id number] [place] [address] Sep, [facility] [id number] [place] [address] Sep, [facility] [id number] [place] [address] Sep, [facility] [id number] [place] [address] 15 Sep, 2011 [facility] [id number] [place] [address] 15 Sep, 2011 [facility] [id number] [place] [address] 15 Sep, 2011 [facility] [id number] [place] [address] 10 Sep, 2011 [facility] [id number] [place] [address] Aug, [facility] [id number] [place] [address] Aug, [facility] [id number] [place] [address] Jul, [facility] [id number] [place] [address] Jul, [facility] [id number] [place] [address] Jul, [facility] [id number] [place] [address] Jul, [facility] [id number] [place] [address] Jul, [facility] [address] [id number] [place] [address] Jun, [facility] [id number] [place] [address] Jun, [facility] [id number] [place] [address] Jun, [facility] [id number] [place] [address] Jun, [facility] [id number] [place] [address] Jun, [facility] [address] [id number] [place] [address] May, [facility] [id number] [place] [address] Jul, [facility] [id number] [place] [address] Jul, [facility] [id number] [place] [address] Jul, [facility] [id number] [place] [address] Jul, [facility] [id number] [place] [address] Jun, [facility] [id number] [place] [address] Jun, [facility] [id number] [place] [address] May, IMMUNIZATIONS No Known Immunizations SOCIAL HISTORY Never Assessed REASON FOR VISIT PLAN OF CARE VITAL SIGNS Height 72 in 2013-09-26 Weight 229.4 lbs 2013-09-26 Temperature 98 degrees Fahrenheit 2013-09-26 Heart Rate 72 bpm 2013-09-26 Respiratory Rate 20 2013-09-26 Blood pressure systolic 138 mmHg 2013-09-26 Blood pressure diastolic 80 mmHg 2013-09-26 MEDICATIONS Unknown Medications RESULTS No Results PROCEDURES [...]
--- OUTSIDE RECORDS SUMMARY | 2020-01-03 21:23 | XMS REPORT ---
Author Author Stevie QUIÑONEZ Organization [facility] Address [address] [place] [address] Care Team Providers Care Territory Sales Representative Name Role Phone SUSAN QUIÑONEZ Unavailable PROBLEMS Type Condition ICD9-CM Code HYZ69-VP Code Onset Dates Condition S tatus SNOMED Code Problem Depressive disorder, not elsewhere classified F32. 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 Active 213275412 Problem Status post amputation of toe of right foot Z89.42 1 Active 265202501 Problem Peripheral vascular disease I73.9 Ac tive 186608988 Problem Chronic hepatitis C without hepatic coma B18.2 Active 264360222 Problem BMI 32.0-32.9,adult Z68.32 Active 515622722 Problem Venous insufficiency I87.2 Active 00858635 Problem Type 2 diabetes mellitus with other specified complication E11.69 Active [id number] Problem Long-term insulin use Z79.4 Active 145894482 Problem Osteomyelitis M86.9 Active 843508 00 Problem Acquired absence of right great toe Z89.411 Active 778515805 Problem 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 Active 519313485 Problem Coronary artery disease invo lving [place] coronary artery of [place] heart without angina pectoris I25.10 Active 1641 207572079 Problem Coronary artery disease invo lving [place] coronary artery of [place] heart without angina pectoris I25.10 Active 1641 [id number] ALLERGIES No Information ENCOUNTERS Encounter Location Date Diagnosis [facility] [address] [id number] [place] [address] Jun, [facility] [address] [id number] [place] [address] Jun, Type 2 diabetes mellitus with other spec ified complication E11.69 ; Interstitial pulmonary fibrosis J84.10 and Venous insufficiency I87.2 [place] [address] [address] 11 May, 2019 Coronary artery disease involving [place] coronary artery of [place] heart without angina pectoris I25.10 ; Type 2 diabetes mellitus with other specified complication E11.69 and Long-term insulin use Z79.4 [place] [address] [address] 07 May, 2019 [place] [address] [address] May, [place] [address] [address] Apr, Type 2 diabetes mellitus with other spec ified complication E11.69 ; Coronary artery disease involving [place] coronary artery of [place] heart without angina pectoris I25.10 and Encounter for immunization Z23 [place] [address] [address] Apr, [place] [address] [address] Apr, [place] [address] [address] December, Chronic hepatitis C without hepatic coma B18.2 and Type 2 diabetes mellitus with other specified complication E11.69 [place] [address] [address] Nov, Abnormal PSA R97.20 [place] [address] [address] Nov, [place] [address] [address] Nov, Encounter for Medicare annual wellness e xam Z00.00 ; Type 2 diabetes mellitus with other specified complication E11.69 ; Peripheral vascular disease I73.9 ; Encounter for immunization Z23 ; Liver transplant recipient Z94.4 ; Acquired absence of right great toe Z89.411 ; 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 and Routine adult health maintenance Z00.00 [place] [address] [address] 23 Nov, 2017 Medicare annual wellness visit, initial Z00.00 ; Type 2 diabetes mellitus with other specified complication E11.69 ; Depressive disorder, not elsewhere classified F32.9 ; Peripheral vascular disease I73.9 ; Encounter for immunization Z23 ; Liver transplant recipient Z94.4 ; Status post amputation of toe of right foot Z89.421 and BMI 32.0-32.9,adult Z68.32 [place] [address] [address] 13 Oct, 2017 [place] [address] [address] Oct, [place] [address] [address] Oct, Type 2 diabetes mellitus with other spec ified complication E11.69 ; Chronic hepatitis C without hepatic coma B18.2 and Depressive disorder, not elsewhere classified F32.9 [place] [address] [address] Sep, [place] [address] [address] Sep, [place] [address] [address] Sep, [place] [address] [id number] [id number] Sep, Diabetes E11.9 [place] [address] [address] Sep, [facility] [address] [place] [id number] Sep Peripheral vascular disease I73.9 ; 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 ; Status post amputation of toe of right foot Z89.421 ; Type 2 diabetes mellitus with other specified complication E11.69 and Liver transplant recipient Z94.4 [place] [address] [id number] [id number] Sep, [facility] [address] [place] [id number] Sep Status post amputation of toe of right foot Z89.421 ; 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 ; Osteomyelitis M86.9 ; Diabetes E11.9 ; Liver transplant recipient Z94.4 and History of drug abuse Z87.898 [facility] [address] [id number] [id number] Sep, [facility] [address] [address] Jan, [place] [address] [address] Jan, [place] [address] [address] December, Diabetes E11.9 ; Back pain M54.9 and Ane sapna due to other cause D64.89 [place] [address] [address] December, Osteomyelitis, unspecified M86.9 [place] [address] [address] December, [place] [address] [address] December, Diabetes E11.9 [place] [address] [address] Jan, Seborrheic keratoses L82.1 and Abscess o f neck L02.11 [place] [address] [address] Jan, Sebaceous cyst L72.3 [facility] [address] [facility] [id number] [place] [address] Jan, Abscess, neck L02.11 [facility] [address] [address] Oct, Diabetes E11.9 [facility] [address] [id number] [place] [address] Oct, Back pain M54.9 [facility] [address] [address] Sep, Back pain M54.9 [facility] [address] [address] Sep, Back pain M54.9 [facility] [address] [address] Aug, Back pain M54.9 [facility] [address] [address] Aug, Diabetes E11.9 and Liver transplant reci cara Z94.4 [facility] [address] [address] Aug, Back pain M54.9 [facility] [address] [address] Jul, [facility] [address] [address] Jul, [facility] [address] [address] Jul, [facility] [address] [address] Jun, Depressive disorder, not elsewhere class ified F32.9 [facility] [address] [address] Jun, Diabetes E11.9 ; Depressive disorder, no t elsewhere classified F32.9 and Back pain M54.9 [facility] [address] [address] Jun, [facility] [address] [address] Jun, [facility] [address] [address] May, [facility] [address] [id number] [place] [address] May, [facility] [address] [id number] [place] [address] Apr, [facility] [address] [id number] [place] [address] Apr, [facility] [address] [place] [id number] [place] [address] Mar, [facility] [address] [id number] [place] [address] Mar, [facility] [address] [id number] [place] [id number] Mar, Dental examination V72.2 [facility] [address] [id number] [place] [address] Jan, [facility] [address] [place] [id number] [place] [address] Jan, [facility] [address] [id number] [place] [address] Jan, [facility] [address] [place] [id number] [place] [address] Jan, [facility] [address] [id number] [place] [address] Jan, [facility] [address] [place] [id number] [place] [address] December, [facility] [address] [id number] [place] [address] December, [facility] [address] [place] [id number] [place] [address] December, Diabetes mellitus type 2, uncontrolled 2 50.02 and Osteomyelitis of ankle or foot 730.27 [facility] [address] [id number] [place] [address] December, [facility] [address] [place] [id number] [place] [address] 2014 [facility] [address] [facility] [id number] [place] [address] Nov, [facility] [address] [id number] [place] [address] Oct, [facility] [address] [id number] [place] [address] Oct, [facility] [address] [id number] [place] [address] Oct, [facility] [address] [id number] [place] [address] Oct, [facility] [address] [id number] [place] [address] Sep, [facility] [address] [id number] [place] [address] Sep, [facility] [address] [id number] [place] [address] Sep, [facility] [address] [id number] [place] [address] Sep, [facility] [address] [id number] [place] [address] Aug, [facility] [address] [id number] [place] [address] Aug, [facility] [address] [id number] [place] [address] Aug, [facility] [address] [id number] [place] [address] Aug, [facility] [address] [id number] [place] [address] Aug, [facility] [address] [id number] [place] [address] Aug, [facility] [address] [id number] [place] [address] Jul, [facility] [address] [id number] [place] [address] Jul, [facility] [address] [id number] [place] [address] Jul, [facility] [address] [id number] [place] [address] Jul, [facility] [address] [id number] [place] [address] Jul, [facility] [address] [id number] [place] [address] Jul, [facility] [address] [id number] [place] [address] Jun, [facility] [address] [id number] [place] [address] Jun, [facility] [address] [place] [id number] [place] [address] Jun, [facility] [address] [id number] [place] [address] Jun, [facility] [address] [id number] [place] [address] May, [facility] [address] [id number] [place] [address] May, [facility] [address] [id number] [place] [address] May, [facility] [address] [id number] [place] [address] May, [facility] [address] [id number] [place] [address] May, [facility] [address] [id number] [place] [address] May, [facility] [address] [id number] [place] [address] Apr, [facility] [address] [id number] [place] [address] Apr, [facility] [address] [facility] [id number] [facility] [facility] [place] [address] Apr, [facility] [address] [facility] [id number] [facility] [facility] [place] [address] Apr, [facility] [address] [id number] [facility] [facility] [place] [address] Mar, [facility] [address] [facility] [id number] [facility] [facility] [place] [address] Mar, [facility] [address] [facility] [id number] [facility] [facility] [place] [address] Mar, [facility] [address] [facility] [id number] [place] [address] Mar, [facility] [address] [id number] [place] [address] Jan, [facility] [address] [id number] [place] [address] Jan, [facility] [address] [id number] [place] [address] Jan, [facility] [address] [id number] [place] [address] Jan, [facility] [address] [id number] [place] [address] Jan, [facility] [address] [id number] [place] [address] Jan, [facility] [address] [id number] [place] [address] Jan, [facility] [address] [id number] [place] [address] Jan, [facility] [address] [id number] [place] [address] Jan, [facility] [address] [id number] [place] [address] Jan, [facility] [address] [id number] [place] [address] Jan, [facility] [address] [facility] [id number] [place] [address] Jan, [facility] [address] [id number] [place] [address] December, [facility] [address] [id number] [place] [address] December, [facility] [address] [id number] [place] [address] December, [facility] [address] [id number] [place] [address] December, [facility] [address] [id number] [place] [address] December, [facility] [address] [id number] [place] [address] December, [facility] [address] [id number] [place] [address] Nov, [facility] [address] [id number] [place] [address] Nov, [facility] [address] [id number] [place] [address] Nov, [facility] [address] [id number] [place] [address] Nov, [facility] [address] [id number] [place] [address] Nov, [facility] [address] [id number] [place] [address] Nov, [facility] [address] [id number] [place] [address] Oct, [facility] [address] [id number] [place] [address] Oct, [facility] [address] [id number] [place] [address] Oct, [facility] [address] [facility] [id number] [place] [address] Oct, [facility] [address] [facility] [id number] [place] [address] Sep, [facility] [address] [facility] [id number] [place] [address] Sep, [facility] [address] [id number] [place] [address] Sep, [facility] [address] [facility] [id number] [place] [address] Sep, [facility] [address] [id number] [place] [address] Sep, [facility] [address] [id number] [place] [address] Sep, [facility] [address] [id number] [place] [address] Sep, [facility] [address] [id number] [place] [address] Sep, [facility] [address] [id number] [place] [address] Sep, [facility] [address] [id number] [place] [address] Sep, [facility] [address] [id number] [place] [address] Aug, [facility] [address] [id number] [place] [address] Aug, [facility] [address] [id number] [place] [address] Aug, [facility] [address] [id number] [place] [address] Aug, [facility] [address] [id number] [place] [address] Aug, [facility] [address] [id number] [place] [address] Aug, [facility] [address] [id number] [place] [address] Jul, [facility] [address] [id number] [place] [address] Jul, [facility] [address] [id number] [place] [address] Jul, [facility] [address] [id number] [place] [address] Jul, [facility] [address] [id number] [place] [address] Jul, [facility] [address] [id number] [place] [address] Jul, [facility] [address] [id number] [place] [address] Jul, [facility] [address] [id number] [place] [address] Jul, [facility] [address] [id number] [place] [address] Jul, [facility] [address] [id number] [place] [address] Jul, [facility] [address] [id number] [place] [address] Jun, [facility] [address] [id number] [place] [address] Jun, [facility] [address] [id number] [place] [address] Jun, [facility] [id number] [place] [address] Jun, [facility] [address] [id number] [place] [address] May, [facility] [id number] [place] [address] May, [facility] [address] [id number] [place] [address] 27 Apr, 2013 [facility] [address] [id number] [place] [address] 20 Apr, 2013 [facility] [address] [id number] [place] [address] 05 Apr, 2013 [facility] [address] [id number] [place] [address] Mar, [facility] [address] [id number] [place] [address] Mar, [facility] [address] [id number] [place] [address] Jan, [facility] [address] [id number] [place] [address] Jan, [facility] [address] [id number] [place] [address] Jan, [facility] [address] [id number] [place] [address] Jan, [facility] [address] [id number] [place] [address] Jan, [facility] [address] [id number] [place] [address] Jan, [facility] [address] [id number] [place] [address] Jan, [facility] [address] [id number] [place] [address] December, [facility] [address] [id number] [place] [address] December, [facility] [address] [id number] [place] [address] December, [facility] [address] [id number] [place] [address] Nov, [facility] [address] [id number] [place] [address] Nov, [facility] [address] [id number] [place] [address] Oct, [facility] [address] [id number] [place] [address] Oct, [facility] [address] [id number] [place] [address] Sep, [facility] [address] [id number] [place] [address] Sep, [facility] [address] [id number] [place] [address] Aug, [facility] [address] [id number] [place] [address] Aug, [facility] [address] [id number] [place] [address] Jul, [facility] [address] [id number] [place] [address] Jul, [facility] [address] [id number] [place] [address] Jul, [facility] [address] [id number] [place] [address] Jul, [facility] [address] [id number] [place] [address] Jul, [facility] [address] [id number] [place] [address] Jul, [facility] [address] [id number] [place] [address] Jul, [facility] [address] [id number] [place] [id number] Jul, [facility] [address] [id number] [place] [address] Jun, [facility] [id number] [place] [address] Jun, [facility] [address] [id number] [place] [address] Jun, [facility] [address] [id number] [place] [address] Jun, [facility] [address] [id number] [place] [address] Jun, [facility] [address] [id number] [place] [address] Jun, [facility] [address] [id number] [place] [address] Jun, [facility] [address] [id number] [place] [address] Jun, [facility] [address] [id number] [place] [address] Jun, [facility] [address] [id number] [place] [address] Jun, [facility] [address] [id number] [place] [address] May, [facility] [address] [id number] [place] [address] May, [facility] [address] [id number] [place] [address] May, [facility] [address] [id number] [place] [address] Apr, [facility] [address] [id number] [place] [address] Apr, [facility] [address] [id number] [place] [address] Mar, [facility] [id number] [place] [address] Mar, [facility] [address] [id number] [place] [address] Jan, [facility] [address] [id number] [place] [address] Jan, [facility] [address] [id number] [place] [address] Jan, [facility] [address] [id number] [place] [address] Jan, [facility] [address] [id number] [place] [address] Jan, [facility] [address] [id number] [place] [address] December, [facility] [address] [id number] [place] [address] December, [facility] [address] [id number] [place] [address] Nov, [facility] [address] [id number] [place] [address] Nov, [facility] [address] [id number] [place] [address] Oct, [facility] [address] [id number] [place] [address] Oct, [facility] [address] [id number] [place] [address] Oct, [facility] [address] [id number] [place] [address] Oct, [facility] [address] [id number] [place] [address] Sep, [facility] [address] [id number] [place] [address] Sep, [facility] [address] [id number] [place] [address] Sep, [facility] [address] [id number] [place] [address] Sep, [facility] [address] [id number] [place] [address] Sep, [facility] [address] [id number] [place] [address] 15 Sep, 2011 [facility] [address] [id number] [place] [address] 15 Sep, 2011 [facility] [address] [id number] [place] [address] 15 Sep, 2011 [facility] [id number] [place] [address] 10 Sep, 2011 [facility] [id number] [place] [address] Aug, [facility] [address] [id number] [place] [address] Aug, [facility] [id number] [place] [address] Jul, [facility] [id number] [place] [address] Jul, [facility] [id number] [place] [address] Jul, [facility] [id number] [place] [address] Jul, [facility] [id number] [place] [address] Jul, [facility] [id number] [place] [address] Jun, [facility] [id number] [place] [address] Jun, [facility] [id number] [place] [address] Jun, [facility] [id number] [place] [address] Jun, [facility] [id number] [place] [address] Jun, [facility] [id number] [place] [address] May, [facility] [address] [id number] [place] [address] Jul, [facility] [address] [id number] [place] [address] Jul, [facility] [address] [id number] [place] [address] Jul, [facility] [address] [id number] [place] [address] Jul, [facility] [address] [id number] [place] [address] Jun, [facility] [id number] [place] [address] Jun, [facility] [address] [id number] [place] [address] May, IMMUNIZATIONS No Known Immunizations SOCIAL HISTORY [...]
--- OUTSIDE RECORDS SUMMARY | 2020-01-03 21:23 | XMS REPORT ---
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 Active 221133423 Problem Status post amputation of toe of right foot Z89.42 1 Active 288741995 Problem Peripheral vascular disease I73.9 Ac tive 599556878 Problem Chronic hepatitis C without hepatic coma B18.2 Active 936673598 Problem BMI 32.0-32.9,adult Z68.32 Active 602186620 Problem Venous insufficiency I87.2 Active 57431966 Problem Type 2 diabetes mellitus with other specified complication E11.69 Active [id number] Problem Long-term insulin use Z79.4 Active 481588350 Problem Osteomyelitis M86.9 Active 504370 00 Problem Acquired absence of right great toe Z89.411 Active 480949113 Problem 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 Active 410933275 Problem Coronary artery disease invo [place]ving [place] coronary artery of [place] heart without angina pectoris I25.10 Active 1641 552355756 Problem Coronary artery disease invo lving [place] coronary artery of [place] heart without angina pectoris I25.10 Active 1641 [id number] ALLERGIES No Information ENCOUNTERS Encounter Location Date Diagnosis [facility] [address] [id number] [place] [address] Sep, [facility] [address] [id number] [place] [address] Jun, [facility] [address] [address] Jun, Type 2 diabetes mellitus with other spec ified complication E11.69 ; Interstitial pulmonary fibrosis J84.10 and Venous insufficiency I87.2 [facility] [id number] [place] [address] 11 May, 2019 Coronary artery disease involving [place] coronary artery of [place] heart without angina pectoris I25.10 ; Type 2 diabetes mellitus with other specified complication E11.69 and Long-term insulin use Z79.4 [place] [address] [address] 07 May, 2019 [place] [address] [address] May, [place] [address] [address] Apr, Type 2 diabetes mellitus with other spec ified complication E11.69 ; Coronary artery disease involving [place] coronary artery of [place] heart without angina pectoris I25.10 and Encounter for immunization Z23 [place] [address] [address] Apr, [place] [address] [address] Apr, [place] [address] [address] December, Chronic hepatitis C without hepatic coma B18.2 and Type 2 diabetes mellitus with other specified complication E11.69 [place] [address] [address] Nov, Abnormal PSA R97.20 [facility] [address] [address] Nov, [place] [address] [address] Nov, Encounter for Medicare annual wellness e xam Z00.00 ; Type 2 diabetes mellitus with other specified complication E11.69 ; Peripheral vascular disease I73.9 ; Encounter for immunization Z23 ; Liver transplant recipient Z94.4 ; Acquired absence of right great toe Z89.411 ; 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 and Routine adult health maintenance Z00.00 [place] [address] [address] Nov, Medicare annual wellness visit, initial Z00.00 ; Type 2 diabetes mellitus with other specified complication E11.69 ; Depressive disorder, not elsewhere classified F32.9 ; Peripheral vascular disease I73.9 ; Encounter for immunization Z23 ; Liver transplant recipient Z94.4 ; Status post amputation of toe of right foot Z89.421 and BMI 32.0-32.9,adult Z68.32 [place] [address] [address] 13 Oct, 2017 [place] [address] [address] Oct, [place] [address] [address] Oct, Type 2 diabetes mellitus with other spec ified complication E11.69 ; Chronic hepatitis C without hepatic coma B18.2 and Depressive disorder, not elsewhere classified F32.9 [place] [address] [address] Sep, [place] [address] [address] Sep, [place] [address] [address] Sep, [facility] [address] [id number] [id number] Sep, Diabetes E11.9 [place] [address] [address] Sep, [employer] [address] [place] [id number] Sep Peripheral vascular disease I73.9 ; 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 ; Status post amputation of toe of right foot Z89.421 ; Type 2 diabetes mellitus with other specified complication E11.69 and Liver transplant recipient Z94.4 [facility] [address] [id number] [id number] 16 Sep, 2017 [employer] [address] [place] [id number] 13 Sep Status post amputation of toe of right foot Z89.421 ; 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 ; Osteomyelitis M86.9 ; Diabetes E11.9 ; Liver transplant recipient Z94.4 and History of drug abuse Z87.898 [facility] [address] [id number] [id number] 06 Sep, 2017 [place] [address] [address] Jan, [place] [address] [address] Jan, [place] [address] [address] December, Diabetes E11.9 ; Back pain M54.9 and Ane sapna due to other cause D64.89 [place] [address] [address] December, Osteomyelitis, unspecified M86.9 [place] [address] [address] December, [place] [address] [address] December, Diabetes E11.9 [place] [address] [address] Jan, Seborrheic keratoses L82.1 and Abscess o f neck L02.11 [place] [address] [address] Jan, Sebaceous cyst L72.3 [facility] [address] [facility] [id number] [place] [address] Jan, Abscess, neck L02.11 [facility] [address] [address] Oct, Diabetes E11.9 [facility] [address] [address] Oct, Back pain M54.9 [facility] [address] [address] Sep, Back pain M54.9 [facility] [address] [address] Sep, Back pain M54.9 [facility] [address] [address] Aug, Back pain M54.9 [facility] [address] [address] Aug, Diabetes E11.9 and Liver transplant reci cara Z94.4 [facility] [address] [address] Aug, Back pain M54.9 [facility] [address] [address] Jul, [facility] [address] [address] Jul, [facility] [address] [address] Jul, [facility] [address] [address] Jun, Depressive disorder, not elsewhere class ified F32.9 [facility] [address] [address] Jun, Diabetes E11.9 ; Depressive disorder, no t elsewhere classified F32.9 and Back pain M54.9 [facility] [address] [address] Jun, [facility] [address] [address] Jun, [facility] [id number] [place] [address] May, [facility] [id number] [place] [address] May, [facility] [id number] [place] [address] Apr, [facility] [id number] [place] [address] Apr, [facility] [id number] [place] [address] Mar, [facility] [id number] [place] [address] Mar, [facility] [address] [id number] [place] [id number] Mar, Dental examination V72.2 [facility] [id number] [place] [address] Jan, [facility] [id number] [place] [address] Jan, [facility] [id number] [place] [address] Jan, [facility] [id number] [place] [address] Jan, [facility] [id number] [place] [address] Jan, [facility] [id number] [place] [address] December, [facility] [id number] [place] [address] December, [facility] [id number] [place] [address] December, Diabetes mellitus type 2, uncontrolled 2 50.02 and Osteomyelitis of ankle or foot 730.27 [facility] [id number] [place] [address] December, [facility] [place] [facility] [address] [facility] [id number] [place] [address] Nov, [facility] [place] [facility] [id number] [place] [address] Nov, [facility] [place] [facility] [address] [id number] [place] [address] Oct, [facility] [place] [facility] [address] [id number] [place] [address] Oct, [facility] [place] [facility] [address] [id number] [place] [address] Oct, [facility] [place] [facility] [address] [id number] [place] [address] Oct, [facility] [place] [facility] [address] [id number] [place] [address] Sep, [facility] [place] [facility] [address] [id number] [place] [address] Sep, [facility] [place] [facility] [address] [id number] [place] [address] Sep, [facility] [place] [facility] [address] [id number] [place] [address] Sep, [facility] [place] [facility] [address] [id number] [place] [address] Aug, [facility] [place] [facility] [address] [id number] [place] [address] Aug, [facility] [place] [facility] [address] [id number] [place] [address] Aug, [facility] [place] [facility] [address] [id number] [place] [address] Aug, [facility] [place] [facility] [address] [id number] [place] [address] Aug, [facility] [place] [facility] [address] [id number] [place] [address] Aug, [facility] [place] [facility] [address] [id number] [place] [address] Jul, [facility] [place] [facility] [address] [id number] [place] [address] Jul, [facility] [place] [facility] [address] [id number] [place] [address] Jul, [facility] [place] [facility] [address] [id number] [place] [address] Jul, [facility] [place] [facility] [address] [id number] [place] [address] Jul, [facility] [place] [facility] [address] [id number] [place] [address] Jul, [facility] [place] [facility] [address] [id number] [place] [address] Jun, [facility] [place] [facility] [id number] [place] [address] Jun, [facility] [place] [facility] [address] [id number] [place] [address] Jun, [facility] [place] [facility] [address] [id number] [place] [address] Jun, [facility] [place] [facility] [address] [id number] [place] [address] May, [facility] [place] [facility] [address] [id number] [place] [address] May, [facility] [place] [facility] [address] [id number] [place] [address] May, [facility] [place] [facility] [address] [id number] [place] [address] May, [facility] [place] [facility] [address] [id number] [place] [address] May, [facility] [place] [facility] [address] [id number] [place] [address] May, [facility] [place] [facility] [address] [facility] [id number] [place] [address] Apr, [facility] [place] [facility] [address] [id number] [facility] [address] Apr, [facility] [place] [facility] [address] [facility] [id number] [facility] [address] Apr, [facility] [place] [facility] [address] [id number] [facility] [address] Apr, [facility] [place] [facility] [address] [facility] [id number] [place] [address] Mar, [facility] [place] [facility] [address] [facility] [id number] [facility] [address] Mar, [facility] [place] [facility] [address] [id number] [place] [address] Mar, [facility] [place] [facility] [address] [id number] [place] [address] Mar, [facility] [place] [facility] [address] [id number] [place] [address] Jan, [facility] [place] [facility] [address] [id number] [facility] [address] Jan, [facility] [place] [facility] [address] [id number] [place] [address] Jan, [facility] [place] [facility] [address] [id number] [place] [address] Jan, [facility] [place] [facility] [address] [id number] [place] [address] Jan, [facility] [place] [facility] [address] [id number] [place] [address] Jan, [facility] [place] [facility] [address] [id number] [place] [address] Jan, [facility] [place] [facility] [address] [id number] [place] [address] Jan, [facility] [place] [facility] [address] [id number] [place] [address] Jan, [facility] [place] [facility] [address] [facility] [id number] [facility] [address] Jan, [facility] [place] [facility] [address] [id number] [place] [address] Jan, [facility] [place] [facility] [address] [facility] [id number] [place] [address] Jan, [facility] [place] [facility] [address] [id number] [place] [address] December, [facility] [place] [facility] [address] [facility] [id number] [facility] [address] December, [facility] [place] [facility] [address] [facility] [id number] [place] [address] December, [facility] [place] [facility] [address] [id number] [place] [address] December, [facility] [place] [facility] [address] [id number] [place] [address] December, [facility] [place] [facility] [address] [id number] [place] [address] December, [facility] [place] [facility] [address] [id number] [place] [address] Nov, [facility] [place] [facility] [address] [id number] [place] [address] Nov, [facility] [place] [facility] [address] [id number] [place] [address] Nov, [facility] [place] [facility] [address] [id number] [place] [address] Nov, [facility] [place] [facility] [address] [facility] [id number] [place] [address] Nov, [facility] [place] [facility] [address] [id number] [place] [address] Nov, [facility] [place] [facility] [address] [id number] [place] [address] Oct, [facility] [place] [facility] [address] [id number] [place] [address] Oct, [facility] [place] [facility] [address] [id number] [place] [address] Oct, [facility] [place] [facility] [address] [id number] [place] [address] Oct, [facility] [place] [facility] [address] [id number] [place] [address] Sep, [facility] [place] [facility] [address] [id number] [place] [address] Sep, [facility] [place] [facility] [address] [facility] [id number] [place] [address] Sep, [facility] [place] [facility] [address] [id number] [place] [address] Sep, [facility] [place] [facility] [address] [id number] [place] [address] Sep, [facility] [place] [facility] [address] [id number] [place] [address] Sep, [facility] [place] [facility] [address] [id number] [place] [address] Sep, [facility] [place] [facility] [address] [id number] [place] [address] Sep, [facility] [place] [facility] [address] [id number] [place] [address] Sep, [facility] [place] [facility] [address] [id number] [place] [address] Sep, [facility] [place] [facility] [address] [id number] [place] [address] Aug, [facility] [place] [facility] [address] [id number] [place] [address] Aug, [facility] [place] [facility] [address] [id number] [place] [address] Aug, [facility] [place] [facility] [address] [id number] [place] [address] Aug, [facility] [place] [facility] [address] [id number] [place] [address] Aug, [facility] [place] [facility] [address] [id number] [place] [address] Aug, [facility] [place] [facility] [address] [id number] [place] [address] Jul, [facility] [place] [facility] [address] [id number] [place] [address] Jul, [facility] [place] [facility] [address] [id number] [place] [address] Jul, [facility] [place] [facility] [address] [id number] [place] [address] Jul, [facility] [place] [facility] [address] [id number] [place] [address] Jul, [facility] [place] [facility] [address] [id number] [place] [address] Jul, [facility] [place] [facility] [address] [id number] [place] [address] Jul, [facility] [place] [facility] [address] [id number] [place] [address] Jul, [facility] [place] [facility] [address] [id number] [place] [address] Jul, [facility] [place] [facility] [address] [id number] [place] [address] Jul, [facility] [place] [facility] [address] [id number] [place] [address] Jun, [facility] [place] [facility] [address] [id number] [place] [address] Jun, [facility] [place] [facility] [id number] [place] [address] Jun, [facility] [place] [facility] [address] [id number] [place] [address] Jun, [facility] [place] [facility] [address] [id number] [place] [address] May, [facility] [place] [facility] [address] [id number] [place] [address] 18 May, 2013 [facility] [place] [facility] [address] [id number] [place] [address] 27 Apr, 2013 [facility] [place] [facility] [address] [id number] [place] [address] 20 Apr, 2013 [facility] [place] [facility] [address] [id number] [place] [address] 05 Apr, 2013 [facility] [place] [facility] [address] [id number] [place] [address] Mar, [facility] [place] [facility] [address] [id number] [place] [address] Mar, [facility] [place] [facility] [address] [id number] [place] [address] Jan, [facility] [address] [id number] [place] [address] Jan, [facility] [address] [id number] [place] [address] Jan, [facility] [address] [id number] [place] [address] Jan, [facility] [address] [id number] [place] [address] 15 Jan, 2013 [facility] [address] [id number] [place] [address] 14 Jan, 2013 [facility] [address] [id number] [place] [address] Jan, [facility] [address] [id number] [place] [address] December, [facility] [address] [id number] [place] [address] December, [facility] [address] [id number] [place] [address] December, [facility] [address] [id number] [place] [address] Nov, [facility] [address] [id number] [place] [address] Nov, [facility] [address] [id number] [place] [address] Oct, [facility] [address] [id number] [place] [address] Oct, [facility] [address] [id number] [place] [address] Sep, [facility] [address] [id number] [place] [address] Sep, [facility] [address] [id number] [place] [address] Aug, [facility] [address] [id number] [place] [address] Aug, [facility] [address] [id number] [place] [address] Jul, [facility] [address] [id number] [place] [address] Jul, [facility] [address] [id number] [place] [address] Jul, [facility] [address] [id number] [place] [address] Jul, [facility] [address] [id number] [place] [address] Jul, [facility] [address] [id number] [place] [address] Jul, [facility] [address] [id number] [place] [address] Jul, [facility] [address] [id number] [place] [address] Jul, [facility] [address] [id number] [place] [address] Jun, [facility] [address] [id number] [place] [address] Jun, [facility] [address] [id number] [place] [address] Jun, [facility] [address] [id number] [place] [address] Jun, [facility] [address] [id number] [place] [address] Jun, [facility] [address] [id number] [place] [address] Jun, [facility] [address] [id number] [place] [address] Jun, [facility] [address] [id number] [place] [address] Jun, [facility] [id number] [place] [address] Jun, [facility] [address] [id number] [place] [address] Jun, [facility] [address] [id number] [place] [address] May, [facility] [address] [id number] [place] [address] May, [facility] [address] [id number] [place] [id number] May, [facility] [address] [id number] [place] [address] Apr, [facility] [address] [id number] [place] [address] Apr, [facility] [id number] [place] [address] Mar, [facility] [address] [facility] [id number] [place] [address] Mar, [facility] [address] [facility] [id number] [place] [address] Jan, [facility] [address] [facility] [id number] [place] [address] Jan, [facility] [address] [facility] [id number] [place] [address] Jan, [facility] [address] [facility] [id number] [place] [address] Jan, [facility] [address] [facility] [id number] [place] [address] Jan, [facility] [address] [facility] [id number] [place] [address] December, [facility] [address] [facility] [id number] [place] [address] December, [facility] [address] [id number] [place] [address] Nov, [facility] [address] [facility] [id number] [place] [address] Nov, [facility] [address] [facility] [id number] [place] [address] Oct, [facility] [address] [facility] [id number] [place] [address] Oct, [facility] [address] [facility] [id number] [place] [address] Oct, [facility] [address] [facility] [id number] [place] [address] Oct, [facility] [address] [facility] [id number] [place] [address] Sep, [facility] [address] [facility] [id number] [place] [address] Sep, [facility] [address] [facility] [id number] [place] [address] Sep, [facility] [address] [id number] [place] [address] Sep, [facility] [address] [facility] [id number] [place] [address] 15 Sep, 2011 [facility] [address] [facility] [id number] [place] [address] 15 Sep, 2011 [facility] [address] [facility] [id number] [place] [address] 15 Sep, 2011 [facility] [id number] [place] [address] 15 Sep, 2011 [facility] [id number] [place] [address] 10 Sep, 2011 [facility] [address] [id number] [place] [address] Aug, [facility] [id number] [place] [address] Aug, [facility] [id number] [place] [address] 30 Jul, 2011 [facility] [id number] [place] [address] Jul, [facility] [id number] [place] [address] Jul, [facility] [id number] [place] [address] Jul, [facility] [id number] [place] [address] Jul, [facility] [id number] [place] [address] Jun, [facility] [address] [id number] [place] [address] Jun, [facility] [id number] [place] [address] Jun, [facility] [address] [id number] [place] [address] Jun, [facility] [id number] [place] [address] Jun, [facility] [address] [id number] [place] [address] May, [facility] [address] [id number] [place] [address] Jul, [facility] [address] [facility] [id number] [place] [address] Jul, [facility] [id number] [place] [address] 14 Jul, 2010 [facility] [address] [facility] [id number] [place] [address] Jul, [facility] [id number] [place] [address] Jun, [facility] [address] [facility] [id number] [place] [address] Jun, [facility] [address] [facility] [id number] [place] [address] May, IMMUNIZATIONS No Known Immunizations SOCIAL HISTORY Never Assessed REASON FOR VISIT PLAN OF CARE VITAL SIGNS Height 72 in 2013-12-15 Weight 223 lbs 2013-12-15 Temperature 97 degrees Fahrenheit 2013-12-15 Heart Rate 88 bpm 2013-12-15 Respiratory Rate 18 2013-12-15 Blood pressure systolic 140 mmHg 2013-12-15 Blood pressure diastolic 84 mmHg 2013-12-15 MEDICATIONS Unknown Medications RESULTS No Results PROCEDURES Procedure Date Ordered Result Body Site GLYCATED HEMOGLOBIN TEST December 15, 2013 COMPREHEN METABOLIC PANEL December 15, 2013 VENIPUNCT, ROUTINE* December 15, 2013 INSTRUCTIONS MEDICATIONS ADMINISTERED No Known Medications MEDICAL [...]
--- OUTSIDE RECORDS SUMMARY | 2020-01-03 21:23 | XMS REPORT ---
Author Author Stevie QUIÑONEZ Organization [facility] Address [address] [place] [address] Care Team Providers Care Bomb Technician Name Role Phone SUSAN QUIÑONEZ Unavailable PROBLEMS Type Condition ICD9-CM Code FWV85-OR Code Onset Dates Condition S tatus SNOMED Code Problem Depressive disorder, not elsewhere classified F32. 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 Active 869186584 Problem Status post amputation of toe of right foot Z89.42 1 Active 121885053 Problem Peripheral vascular disease I73.9 Ac tive 995389410 Problem Chronic hepatitis C without hepatic coma B18.2 Active 368880552 Problem BMI 32.0-32.9,adult Z68.32 Active 723427244 Problem Venous insufficiency I87.2 Active 59126402 Problem Type 2 diabetes mellitus with other specified complication E11.69 Active 19920125585634 Problem Long-term insulin use Z79.4 Active 880211509 Problem Osteomyelitis M86.9 Active 281848 00 Problem Acquired absence of right great toe Z89.411 Active 746143859 Problem 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 Active 996631434 Problem Coronary artery disease invo lving [place] coronary artery of [place] heart without angina pectoris I25.10 Active 1641 265898706 Problem Coronary artery disease invo lving [place] coronary artery of [place] heart without angina pectoris I25.10 Active 1641 484885940 ALLERGIES No Information ENCOUNTERS Encounter Location Date Diagnosis [facility] [id number] [place] [address] Jun, [facility] [id number] [place] [address] Jun, Type 2 diabetes mellitus with other spec ified complication E11.69 ; Interstitial pulmonary fibrosis J84.10 and Venous insufficiency I87.2 [place] [address] [address] 11 May, 2019 Coronary artery disease involving [place] coronary artery of [place] heart without angina pectoris I25.10 ; Type 2 diabetes mellitus with other specified complication E11.69 and Long-term insulin use Z79.4 [place] [address] [address] 07 May, 2019 [place] [address] [address] May, [place] [address] [address] Apr, Type 2 diabetes mellitus with other spec ified complication E11.69 ; Coronary artery disease involving [place] coronary artery of [place] heart without angina pectoris I25.10 and Encounter for immunization Z23 [place] [address] [address] Apr, [place] [address] [address] Apr, [place] [address] [address] December, Chronic hepatitis C without hepatic coma B18.2 and Type 2 diabetes mellitus with other specified complication E11.69 [place] [address] [address] Nov, Abnormal PSA R97.20 [place] [address] [address] Nov, [place] [address] [address] Nov, Encounter for Medicare annual wellness e xam Z00.00 ; Type 2 diabetes mellitus with other specified complication E11.69 ; Peripheral vascular disease I73.9 ; Encounter for immunization Z23 ; Liver transplant recipient Z94.4 ; Acquired absence of right great toe Z89.411 ; 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 and Routine adult health maintenance Z00.00 [place] [address] [address] 23 Nov, 2017 Medicare annual wellness visit, initial Z00.00 ; Type 2 diabetes mellitus with other specified complication E11.69 ; Depressive disorder, not elsewhere classified F32.9 ; Peripheral vascular disease I73.9 ; Encounter for immunization Z23 ; Liver transplant recipient Z94.4 ; Status post amputation of toe of right foot Z89.421 and BMI 32.0-32.9,adult Z68.32 [place] [address] [address] 13 Oct, 2017 [place] [address] [address] Oct, [place] [address] [address] Oct, Type 2 diabetes mellitus with other spec ified complication E11.69 ; Chronic hepatitis C without hepatic coma B18.2 and Depressive disorder, not elsewhere classified F32.9 [place] [address] [address] Sep, [place] [address] [address] Sep, [place] [address] [address] Sep, [place] [address] [id number] [id number] Sep, Diabetes E11.9 [place] [address] [address] Sep, [facility] [address] [place] [id number] Sep Peripheral vascular disease I73.9 ; 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 ; Status post amputation of toe of right foot Z89.421 ; Type 2 diabetes mellitus with other specified complication E11.69 and Liver transplant recipient Z94.4 [place] [address] [id number] [place] [id number] Sep, [facility] [address] [place] [id number] Sep Status post amputation of toe of right foot Z89.421 ; 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 ; Osteomyelitis M86.9 ; Diabetes E11.9 ; Liver transplant recipient Z94.4 and History of drug abuse Z87.898 [facility] [address] [id number] [id number] Sep, [facility] [address] [address] Jan, [place] [address] [address] Jan, [place] [address] [address] December, Diabetes E11.9 ; Back pain M54.9 and Ane sapna due to other cause D64.89 [place] [address] [address] December, Osteomyelitis, unspecified M86.9 [place] [address] [address] December, [place] [address] [address] December, Diabetes E11.9 [place] [address] [address] Jan, Seborrheic keratoses L82.1 and Abscess o f neck L02.11 [place] [address] [address] Jan, Sebaceous cyst L72.3 [facility] [address] [facility] [id number] [place] [address] Jan, Abscess, neck L02.11 [facility] [address] [address] Oct, Diabetes E11.9 [facility] [id number] [place] [address] Oct, Back pain M54.9 [facility] [address] [address] Sep, Back pain M54.9 [facility] [address] [address] Sep, Back pain M54.9 [facility] [address] [address] Aug, Back pain M54.9 [facility] [address] [address] Aug, Diabetes E11.9 and Liver transplant reci cara Z94.4 [facility] [address] [address] Aug, Back pain M54.9 [facility] [address] [address] Jul, [facility] [address] [address] Jul, [facility] [address] [address] Jul, [facility] [address] [address] Jun, Depressive disorder, not elsewhere class ified F32.9 [facility] [address] [address] Jun, Diabetes E11.9 ; Depressive disorder, no t elsewhere classified F32.9 and Back pain M54.9 [facility] [address] [address] Jun, [facility] [address] [address] Jun, [facility] [address] [address] May, [facility] [id number] [place] [address] May, [facility] [id number] [place] [address] Apr, [facility] [id number] [place] [address] Apr, [facility] [address] [place] [id number] [place] [address] Mar, [facility] [id number] [place] [address] Mar, [facility] [address] [id number] [place] [id number] Mar, Dental examination V72.2 [facility] [id number] [place] [address] Jan, [facility] [address] [place] [id number] [place] [address] Jan, [facility] [id number] [place] [address] Jan, [facility] [address] [place] [address] [id number] [place] [address] Jan, [facility] [id number] [place] [address] Jan, [facility] [address] [place] [address] [id number] [place] [address] December, [facility] [id number] [place] [address] December, [facility] [address] [place] [id number] [place] [address] December, Diabetes mellitus type 2, uncontrolled 2 50.02 and Osteomyelitis of ankle or foot 730.27 [facility] [id number] [place] [address] December, [facility] [address] [place] [id number] [place] [address] 2014 [facility] [address] [facility] [id number] [place] [address] Nov, [facility] [id number] [place] [address] Oct, [facility] [id number] [place] [address] Oct, [facility] [id number] [place] [address] Oct, [facility] [id number] [place] [address] Oct, [facility] [id number] [place] [address] Sep, [facility] [id number] [place] [address] Sep, [facility] [id number] [place] [address] Sep, [facility] [id number] [place] [address] Sep, [facility] [id number] [place] [address] Aug, [facility] [id number] [place] [address] Aug, [facility] [id number] [place] [address] Aug, [facility] [id number] [place] [address] Aug, [facility] [id number] [place] [address] Aug, [facility] [id number] [place] [address] Aug, [facility] [id number] [place] [address] Jul, [facility] [id number] [place] [address] Jul, [facility] [id number] [place] [address] Jul, [facility] [id number] [place] [address] Jul, [facility] [id number] [place] [address] Jul, [facility] [id number] [place] [address] Jul, [facility] [id number] [place] [address] Jun, [facility] [id number] [place] [address] Jun, [facility] [address] [place] [address] [id number] [place] [address] Jun, [facility] [id number] [place] [address] Jun, [facility] [id number] [place] [address] May, [facility] [id number] [place] [address] May, [facility] [id number] [place] [address] May, [facility] [id number] [place] [address] May, [facility] [id number] [place] [address] May, [facility] [id number] [place] [address] May, [facility] [id number] [place] [address] Apr, [facility] [id number] [place] [address] Apr, [facility] [address] [facility] [id number] [facility] [address] Apr, [facility] [address] [facility] [id number] [facility] [address] Apr, [facility] [id number] [facility] [address] Mar, [facility] [address] [facility] [id number] [facility] [address] Mar, [facility] [address] [facility] [id number] [facility] [address] Mar, [facility] [address] [facility] [id number] [place] [address] Mar, [facility] [id number] [place] [address] Jan, [facility] [id number] [place] [address] Jan, [facility] [id number] [place] [address] Jan, [facility] [id number] [place] [address] Jan, [facility] [id number] [place] [address] Jan, [facility] [id number] [place] [address] Jan, [facility] [id number] [place] [address] Jan, [facility] [id number] [place] [address] Jan, [facility] [id number] [place] [address] Jan, [facility] [id number] [place] [address] Jan, [facility] [id number] [place] [address] Jan, [facility] [address] [facility] [id number] [place] [address] Jan, [facility] [id number] [place] [address] December, [facility] [id number] [place] [address] December, [facility] [id number] [place] [address] December, [facility] [id number] [place] [address] December, [facility] [id number] [place] [address] December, [facility] [id number] [place] [address] December, [facility] [id number] [place] [address] Nov, [facility] [id number] [place] [address] Nov, [facility] [id number] [place] [address] Nov, [facility] [id number] [place] [address] Nov, [facility] [id number] [place] [address] Nov, [facility] [id number] [place] [address] Nov, [facility] [id number] [place] [address] Oct, [facility] [id number] [place] [address] Oct, [facility] [id number] [place] [address] Oct, [facility] [address] [facility] [id number] [place] [address] Oct, [facility] [address] [facility] [id number] [place] [address] Sep, [facility] [address] [facility] [id number] [place] [address] Sep, [facility] [id number] [place] [address] Sep, [facility] [address] [facility] [id number] [place] [address] Sep, [facility] [id number] [place] [address] Sep, [facility] [id number] [place] [address] Sep, [facility] [id number] [place] [address] Sep, [facility] [id number] [place] [address] Sep, [facility] [id number] [place] [address] Sep, [facility] [id number] [place] [address] Sep, [facility] [id number] [place] [address] Aug, [facility] [id number] [place] [address] Aug, [facility] [id number] [place] [address] Aug, [facility] [id number] [place] [address] Aug, [facility] [id number] [place] [address] Aug, [facility] [id number] [place] [address] Aug, [facility] [id number] [place] [address] Jul, [facility] [id number] [place] [address] Jul, [facility] [id number] [place] [address] Jul, [facility] [id number] [place] [address] Jul, [facility] [id number] [place] [address] Jul, [facility] [id number] [place] [address] Jul, [facility] [id number] [place] [address] Jul, [facility] [id number] [place] [address] Jul, [facility] [id number] [place] [address] Jul, [facility] [id number] [place] [address] Jul, [facility] [id number] [place] [address] Jun, [facility] [id number] [place] [address] Jun, [facility] [id number] [place] [address] Jun, [facility] [id number] [place] [address] Jun, [facility] [id number] [place] [address] May, [facility] [id number] [place] [address] May, [facility] [id number] [place] [address] 27 Apr, 2013 [facility] [id number] [place] [address] 20 Apr, 2013 [facility] [id number] [place] [address] 05 Apr, 2013 [facility] [id number] [place] [address] Mar, [facility] [id number] [place] [address] Mar, [facility] [id number] [place] [address] Jan, [facility] [id number] [place] [address] Jan, [facility] [id number] [place] [address] Jan, [facility] [id number] [place] [address] Jan, [facility] [id number] [place] [address] Jan, [facility] [id number] [place] [address] Jan, [facility] [id number] [place] [address] Jan, [facility] [id number] [place] [address] December, [facility] [id number] [place] [address] December, [facility] [id number] [place] [address] December, [facility] [id number] [place] [address] Nov, [facility] [id number] [place] [address] Nov, [facility] [id number] [place] [address] Oct, [facility] [id number] [place] [address] Oct, [facility] [id number] [place] [address] Sep, [facility] [id number] [place] [address] Sep, [facility] [id number] [place] [address] Aug, [facility] [id number] [place] [address] Aug, [facility] [id number] [place] [address] Jul, [facility] [id number] [place] [address] Jul, [facility] [id number] [place] [address] Jul, [facility] [id number] [place] [address] Jul, [facility] [id number] [place] [address] Jul, [facility] [id number] [place] [address] Jul, [facility] [id number] [place] [address] Jul, [facility] [id number] [place] [address] Jul, [facility] [id number] [place] [address] Jun, [facility] [id number] [place] [address] Jun, [facility] [id number] [place] [address] Jun, [facility] [id number] [place] [address] Jun, [facility] [id number] [place] [address] Jun, [facility] [id number] [place] [address] Jun, [facility] [id number] [place] [address] Jun, [facility] [id number] [place] [address] Jun, [facility] [id number] [place] [address] Jun, [facility] [id number] [place] [address] Jun, [facility] [id number] [place] [address] May, [facility] [id number] [place] [address] May, [facility] [id number] [place] [address] May, [facility] [id number] [place] [address] Apr, [facility] [id number] [place] [address] Apr, [facility] [id number] [place] [address] Mar, [facility] [id number] [place] [address] Mar, [facility] [id number] [place] [address] Jan, [facility] [id number] [place] [address] Jan, [facility] [id number] [place] [address] Jan, [facility] [id number] [place] [address] Jan, [facility] [id number] [place] [address] Jan, [facility] [id number] [place] [address] December, [facility] [id number] [place] [address] December, [facility] [id number] [place] [address] Nov, [facility] [id number] [place] [address] Nov, [facility] [id number] [place] [address] Oct, [facility] [id number] [place] [address] Oct, [facility] [id number] [place] [address] Oct, [facility] [id number] [place] [address] Oct, [facility] [id number] [place] [address] Sep, [facility] [id number] [place] [address] Sep, [facility] [id number] [place] [address] Sep, [facility] [id number] [place] [address] Sep, [facility] [id number] [place] [address] Sep, [facility] [id number] [place] [address] 15 Sep, 2011 [facility] [id number] [place] [address] 15 Sep, 2011 [facility] [id number] [place] [address] 15 Sep, 2011 [facility] [id number] [place] [address] 10 Sep, 2011 [facility] [id number] [place] [address] Aug, [facility] [id number] [place] [address] Aug, [facility] [id number] [place] [address] Jul, [facility] [address] [id number] [place] [address] Jul, [facility] [address] [id number] [place] [address] Jul, [facility] [address] [id number] [place] [address] Jul, [facility] [address] [id number] [place] [address] Jul, [facility] [address] [id number] [place] [address] Jun, [facility] [address] [id number] [place] [address] Jun, [facility] [address] [id number] [place] [address] Jun, [facility] [address] [id number] [place] [address] Jun, [facility] [address] [id number] [place] [address] Jun, [facility] [address] [id number] [place] [address] May, [facility] [id number] [place] [address] Jul, [facility] [id number] [place] [address] Jul, [facility] [id number] [place] [address] Jul, [facility] [id number] [place] [address] Jul, [facility] [id number] [place] [address] Jun, [facility] [address] [id number] [place] [address] Jun, [facility] [id number] [place] [address] May, IMMUNIZATIONS No Known Immunizations SOCIAL HISTORY [...]
--- OUTSIDE RECORDS SUMMARY | 2020-01-03 21:23 | XMS REPORT ---
Author Author Stevie QUIÑONEZ Organization [facility] Address [address] [place] [address] Care Team Providers Care Performance Reporter Name Role Phone SUSAN QUIÑONEZ Unavailable PROBLEMS Type Condition ICD9-CM Code IYN81-UC Code Onset Dates Condition S tatus SNOMED Code Problem Depressive disorder, not elsewhere classified F32. 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 Active 369715171 Problem Status post amputation of toe of right foot Z89.42 1 Active 977809713 Problem Peripheral vascular disease I73.9 Ac tive 748274553 Problem Chronic hepatitis C without hepatic coma B18.2 Active 511993502 Problem BMI 32.0-32.9,adult Z68.32 Active 456406653 Problem Venous insufficiency I87.2 Active 20018008 Problem Type 2 diabetes mellitus with other specified complication E11.69 Active 11951563719210 Problem Long-term insulin use Z79.4 Active 053420912 Problem Osteomyelitis M86.9 Active 519337 00 Problem Acquired absence of right great toe Z89.411 Active 089545628 Problem 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 Active 622757304 Problem Coronary artery 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 Active 1641 136100386 Problem Coronary artery 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 Active 1641 [id number] ALLERGIES No Information ENCOUNTERS Encounter Location Date Diagnosis [facility] [address] [id number] [place] [address] Jun, [facility] [address] [id number] [place] [address] Jun, Type 2 diabetes mellitus with other spec ified complication E11.69 ; Interstitial pulmonary fibrosis J84.10 and Venous insufficiency I87.2 [place] [address] [address] 11 May, 2019 Coronary artery disease involving 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 ; Type 2 diabetes mellitus with other specified complication E11.69 and Long-term insulin use Z79.4 [place] [address] [address] 07 May, 2019 [place] [address] [address] May, [place] [address] [address] Apr, Type 2 diabetes mellitus with other spec ified complication E11.69 ; Coronary artery disease involving 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 and Encounter for immunization Z23 [place] [address] [address] Apr, [place] [address] [address] Apr, [place] [address] [address] December, Chronic hepatitis C without hepatic coma B18.2 and Type 2 diabetes mellitus with other specified complication E11.69 [place] [address] [address] Nov, Abnormal PSA R97.20 [place] [address] [address] Nov, [place] [address] [address] Nov, Encounter for Medicare annual wellness e xam Z00.00 ; Type 2 diabetes mellitus with other specified complication E11.69 ; Peripheral vascular disease I73.9 ; Encounter for immunization Z23 ; Liver transplant recipient Z94.4 ; Acquired absence of right great toe Z89.411 ; 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 and Routine adult health maintenance Z00.00 [place] [address] [address] 23 Nov, 2017 Medicare annual wellness visit, initial Z00.00 ; Type 2 diabetes mellitus with other specified complication E11.69 ; Depressive disorder, not elsewhere classified F32.9 ; Peripheral vascular disease I73.9 ; Encounter for immunization Z23 ; Liver transplant recipient Z94.4 ; Status post amputation of toe of right foot Z89.421 and BMI 32.0-32.9,adult Z68.32 [place] [address] [address] 13 Oct, 2017 [place] [address] [address] Oct, [place] [address] [address] Oct, Type 2 diabetes mellitus with other spec ified complication E11.69 ; Chronic hepatitis C without hepatic coma B18.2 and Depressive disorder, not elsewhere classified F32.9 [place] [address] [address] Sep, [place] [address] [address] Sep, [place] [address] [address] Sep, [place] [address] [id number] [id number] Sep, Diabetes E11.9 [place] [address] [address] Sep, [place] ? 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 ; Osteomyelitis M86.9 ; Diabetes E11.9 ; Liver transplant recipient Z94.4 and History of drug abuse Z87.898 [facility] [address] [id number] [id number] Sep, [facility] [address] [address] Jan, [place] [address] [address] Jan, [place] [address] [address] December, Diabetes E11.9 ; Back pain M54.9 and Ane sapna due to other cause D64.89 [place] [address] [address] December, Osteomyelitis, unspecified M86.9 [place] [address] [address] December, [place] [address] [address] December, Diabetes E11.9 [place] [address] [address] Jan, Seborrheic keratoses L82.1 and Abscess o f neck L02.11 [place] [address] [address] Jan, Sebaceous cyst L72.3 [facility] [address] [id number] [place] [address] Jan, Abscess, neck L02.11 [facility] [address] [address] Oct, Diabetes E11.9 [facility] [address] [id number] [place] [address] Oct, Back pain M54.9 [facility] [address] [address] Sep, Back pain M54.9 [facility] [address] [address] Sep, Back pain M54.9 [facility] [address] [address] Aug, Back pain M54.9 [facility] [address] [address] Aug, Diabetes E11.9 and Liver transplant reci cara Z94.4 [facility] [address] [address] Aug, Back pain M54.9 [facility] [address] [address] Jul, [facility] [address] [address] Jul, [facility] [address] [address] Jul, [facility] [address] [address] Jun, Depressive disorder, not elsewhere class ified F32.9 [facility] [address] [address] Jun, Diabetes E11.9 ; Depressive disorder, no t elsewhere classified F32.9 and Back pain M54.9 [facility] [address] [address] Jun, [facility] [address] [address] Jun, [facility] [address] [address] May, [facility] [address] [id number] [place] [address] May, [facility] [address] [id number] [place] [address] Apr, [facility] [address] [id number] [place] [address] Apr, [facility] [address] [place] [id number] [place] [address] Mar, [facility] [address] [id number] [place] [address] Mar, [facility] [address] [id number] [place] [id number] Mar, Dental examination V72.2 [facility] [address] [id number] [place] [address] Jan, [facility] [address] [place] [id number] [place] [address] Jan, [facility] [address] [id number] [place] [address] Jan, [facility] [address] [place] [id number] [place] [address] Jan, [facility] [address] [id number] [place] [address] Jan, [facility] [address] [place] [id number] [place] [address] December, [facility] [address] [id number] [place] [address] December, [facility] [address] [place] [id number] [place] [address] December, Diabetes mellitus type 2, uncontrolled 2 50.02 and Osteomyelitis of ankle or foot 730.27 [facility] [address] [id number] [place] [address] December, [facility] [address] [place] [id number] [place] [address] 2014 [facility] [address] [id number] [place] [address] Nov, [facility] [address] [id number] [place] [address] Oct, [facility] [address] [id number] [place] [address] Oct, [facility] [address] [id number] [place] [address] Oct, [facility] [address] [id number] [place] [address] Oct, [facility] [address] [id number] [place] [address] Sep, [facility] [address] [id number] [place] [address] Sep, [facility] [address] [id number] [place] [address] Sep, [facility] [address] [id number] [place] [address] Sep, [facility] [address] [id number] [place] [address] Aug, [facility] [address] [id number] [place] [address] Aug, [facility] [address] [id number] [place] [address] Aug, [facility] [address] [id number] [place] [address] Aug, [facility] [address] [id number] [place] [address] Aug, [facility] [address] [id number] [place] [address] Aug, [facility] [address] [id number] [place] [address] Jul, [facility] [address] [id number] [place] [address] Jul, [facility] [address] [id number] [place] [address] Jul, [facility] [address] [id number] [place] [address] Jul, [facility] [address] [id number] [place] [address] Jul, [facility] [address] [id number] [place] [address] Jul, [facility] [address] [id number] [place] [address] Jun, [facility] [address] [id number] [place] [address] Jun, [facility] [address] [place] [id number] [place] [address] Jun, [facility] [address] [id number] [place] [address] Jun, [facility] [address] [id number] [place] [address] May, [facility] [address] [id number] [place] [address] May, [facility] [address] [id number] [place] [address] May, [facility] [address] [id number] [place] [address] May, [facility] [address] [id number] [place] [address] May, [facility] [address] [id number] [place] [address] May, [facility] [address] [id number] [place] [address] Apr, [facility] [address] [id number] [place] [address] Apr, [facility] [address] [id number] [facility] [address] Apr, [facility] [address] [id number] [facility] [address] Apr, [facility] [address] [id number] [facility] [place] [address] Mar, [facility] [address] [id number] [facility] [address] Mar, [facility] [address] [id number] [facility] [place] [address] Mar, [facility] [address] [id number] [place] [address] Mar, [facility] [address] [id number] [place] [address] Jan, [facility] [address] [id number] [place] [address] Jan, [facility] [address] [id number] [place] [address] Jan, [facility] [address] [id number] [place] [address] Jan, [facility] [address] [id number] [place] [address] Jan, [facility] [address] [id number] [place] [address] Jan, [facility] [address] [id number] [place] [address] Jan, [facility] [address] [id number] [place] [address] Jan, [facility] [address] [id number] [place] [address] Jan, [facility] [address] [id number] [place] [address] Jan, [facility] [address] [id number] [place] [address] Jan, [facility] [address] [id number] [place] [address] Jan, [facility] [address] [id number] [place] [address] December, [facility] [address] [id number] [place] [address] December, [facility] [address] [id number] [place] [address] December, [facility] [address] [id number] [place] [address] December, [facility] [address] [id number] [place] [address] December, [facility] [address] [id number] [place] [address] December, [facility] [address] [id number] [place] [address] Nov, [facility] [address] [id number] [place] [address] Nov, [facility] [address] [id number] [place] [address] Nov, [facility] [address] [id number] [place] [address] Nov, [facility] [address] [id number] [place] [address] Nov, [facility] [address] [id number] [place] [address] Nov, [facility] [address] [id number] [place] [address] Oct, [facility] [address] [id number] [place] [address] Oct, [facility] [address] [id number] [place] [address] Oct, [facility] [address] [id number] [place] [address] Oct, [facility] [address] [id number] [place] [address] Sep, [facility] [address] [id number] [place] [address] Sep, [facility] [address] [id number] [place] [address] Sep, [facility] [address] [id number] [place] [address] Sep, [facility] [address] [id number] [place] [address] Sep, [facility] [address] [id number] [place] [address] Sep, [facility] [address] [id number] [place] [address] Sep, [facility] [address] [id number] [place] [address] Sep, [facility] [address] [id number] [place] [address] Sep, [facility] [address] [id number] [place] [address] Sep, [facility] [address] [id number] [place] [address] Aug, [facility] [address] [id number] [place] [address] Aug, [facility] [address] [id number] [place] [address] Aug, [facility] [address] [id number] [place] [address] Aug, [facility] [address] [id number] [place] [address] Aug, [facility] [address] [id number] [place] [address] Aug, [facility] [address] [id number] [place] [address] Jul, [facility] [address] [id number] [place] [address] Jul, [facility] [address] [id number] [place] [address] Jul, [facility] [address] [id number] [place] [address] Jul, [facility] [address] [id number] [place] [address] Jul, [facility] [address] [id number] [place] [address] Jul, [facility] [address] [id number] [place] [address] Jul, [facility] [address] [id number] [place] [address] Jul, [facility] [address] [id number] [place] [address] Jul, [facility] [address] [id number] [place] [address] Jul, [facility] [address] [id number] [place] [address] Jun, [facility] [address] [id number] [place] [address] Jun, [facility] [address] [id number] [place] [address] Jun, [facility] [id number] [place] [address] Jun, [facility] [address] [id number] [place] [address] May, [facility] [id number] [place] [address] May, [facility] [address] [id number] [place] [address] 27 Apr, 2013 [facility] [address] [id number] [place] [address] 20 Apr, 2013 [facility] [address] [id number] [place] [address] 05 Apr, 2013 [facility] [address] [id number] [place] [address] Mar, [facility] [address] [id number] [place] [address] Mar, [facility] [address] [id number] [place] [address] Jan, [facility] [address] [id number] [place] [address] Jan, [facility] [address] [id number] [place] [address] Jan, [facility] [address] [id number] [place] [address] Jan, [facility] [address] [id number] [place] [address] Jan, [facility] [address] [id number] [place] [address] Jan, [facility] [address] [id number] [place] [address] Jan, [facility] [address] [id number] [place] [address] December, [facility] [address] [id number] [place] [address] December, [facility] [address] [id number] [place] [address] December, [facility] [address] [id number] [place] [address] Nov, [facility] [address] [id number] [place] [address] Nov, [facility] [address] [id number] [place] [address] Oct, [facility] [address] [id number] [place] [address] Oct, [facility] [address] [id number] [place] [address] Sep, [facility] [address] [id number] [place] [address] Sep, [facility] [address] [id number] [place] [address] Aug, [facility] [address] [id number] [place] [address] Aug, [facility] [address] [id number] [place] [address] Jul, [facility] [address] [id number] [place] [address] Jul, [facility] [address] [id number] [place] [address] Jul, [facility] [address] [id number] [place] [address] Jul, [facility] [address] [id number] [place] [address] Jul, [facility] [address] [id number] [place] [address] Jul, [facility] [address] [id number] [place] [address] Jul, [facility] [address] [id number] [place] [address] Jul, [facility] [address] [id number] [place] [address] Jun, [facility] [id number] [place] [address] Jun, [facility] [address] [id number] [place] [address] Jun, [facility] [address] [id number] [place] [address] Jun, [facility] [address] [id number] [place] [address] Jun, [facility] [address] [id number] [place] [address] Jun, [facility] [address] [id number] [place] [address] Jun, [facility] [address] [id number] [place] [address] Jun, [facility] [address] [id number] [place] [address] Jun, [facility] [address] [id number] [place] [address] Jun, [facility] [address] [id number] [place] [address] May, [facility] [address] [id number] [place] [address] May, [facility] [address] [id number] [place] [address] May, [facility] [address] [facility] [id number] [place] [address] Apr, [facility] [address] [id number] [place] [address] Apr, [facility] [address] [id number] [place] [address] Mar, [facility] [id number] [place] [address] Mar, [facility] [address] [id number] [place] [address] Jan, [facility] [address] [id number] [place] [address] Jan, [facility] [address] [id number] [place] [address] Jan, [facility] [address] [id number] [place] [address] Jan, [facility] [address] [id number] [place] [address] Jan, [facility] [address] [id number] [place] [address] December, [facility] [address] [id number] [place] [address] December, [facility] [address] [id number] [place] [address] Nov, [facility] [address] [id number] [place] [address] Nov, [facility] [address] [id number] [place] [address] Oct, [facility] [address] [id number] [place] [address] Oct, [facility] [address] [id number] [place] [address] Oct, [facility] [address] [id number] [place] [address] Oct, [facility] [address] [id number] [place] [address] Sep, [facility] [address] [id number] [place] [address] Sep, [facility] [address] [id number] [place] [address] Sep, [facility] [address] [id number] [place] [address] Sep, [facility] [address] [id number] [place] [address] Sep, [facility] [address] [id number] [place] [address] 15 Sep, 2011 [facility] [address] [id number] [place] [address] 15 Sep, 2011 [facility] [address] [id number] [place] [address] 15 Sep, 2011 [facility] [id number] [place] [address] 10 Sep, 2011 [facility] [id number] [place] [address] Aug, [facility] [address] [id number] [place] [address] Aug, [facility] [id number] [place] [address] Jul, [facility] [id number] [place] [address] Jul, [facility] [id number] [place] [address] Jul, [facility] [id number] [place] [address] Jul, [facility] [id number] [place] [address] Jul, [facility] [id number] [place] [address] Jun, [facility] [id number] [place] [address] Jun, [facility] [id number] [place] [address] Jun, [facility] [id number] [place] [address] Jun, [facility] [id number] [place] [address] Jun, [facility] [id number] [place] [address] May, [facility] [address] [id number] [place] [address] Jul, [facility] [address] [id number] [place] [address] Jul, [facility] [address] [id number] [place] [address] Jul, [facility] [address] [id number] [place] [address] Jul, [facility] [address] [id number] [place] [address] Jun, [facility] [id number] [place] [address] Jun, [facility] [address] [id number] [place] [address] May, IMMUNIZATIONS No Known Immunizations SOCIAL HISTORY [...]
--- OUTSIDE RECORDS SUMMARY | 2020-01-03 21:24 | XMS REPORT ---
Author Author Stevie QUIÑONEZ Organization [facility] Address [address] [place] [address] Care Team Providers Care Harvester Operator Name Role Phone SUSAN QUIÑONEZ Unavailable PROBLEMS Type Condition ICD9-CM Code [id number] Code Onset Dates Condition S tatus SNOMED Code Problem Depressive disorder, not elsewhere classified F32. 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 Active 245977114 Problem Status post amputation of toe of right foot Z89.42 1 Active 411479760 Problem Peripheral vascular disease I73.9 Ac tive 309241208 Problem Chronic hepatitis C without hepatic coma B18.2 Active 290297576 Problem BMI 32.0-32.9,adult Z68.32 Active 896337704 Problem Venous insufficiency I87.2 Active 95705780 Problem Type 2 diabetes mellitus with other specified complication E11.69 Active 13953640848098 Problem Long-term insulin use Z79.4 Active 688393626 Problem Osteomyelitis M86.9 Active 242468 00 Problem Acquired absence of right great toe Z89.411 Active 789661462 Problem 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 Active 860590246 Problem Coronary artery disease invo lving [place] coronary artery of [place] heart without angina pectoris I25.10 Active 1641 910085305 Problem Coronary artery disease invo lving [place] coronary artery of [place] heart without angina pectoris I25.10 Active 1641 [id number] ALLERGIES No Information ENCOUNTERS Encounter Location Date Diagnosis [facility] [address] [id number] [place] [address] Sep, [facility] [address] [id number] [place] [address] Jun, [facility] [address] [address] Jun, Type 2 diabetes mellitus with other spec ified complication E11.69 ; Interstitial pulmonary fibrosis J84.10 and Venous insufficiency I87.2 [facility] [id number] [place] [address] 11 May, 2019 Coronary artery disease involving [place] coronary artery of [place] heart without angina pectoris I25.10 ; Type 2 diabetes mellitus with other specified complication E11.69 and Long-term insulin use Z79.4 [facility] [address] [address] 07 May, 2019 [place] [address] [address] May, [place] [address] [address] Apr, Type 2 diabetes mellitus with other spec ified complication E11.69 ; Coronary artery disease involving [place] coronary artery of [place] heart without angina pectoris I25.10 and Encounter for immunization Z23 [facility] [address] [address] Apr, [place] [address] [address] Apr, [place] [address] [address] December, Chronic hepatitis C without hepatic coma B18.2 and Type 2 diabetes mellitus with other specified complication E11.69 [place] [address] [address] Nov, Abnormal PSA R97.20 [facility] [address] [address] Nov, [place] [address] [address] Nov, Encounter for Medicare annual wellness e xam Z00.00 ; Type 2 diabetes mellitus with other specified complication E11.69 ; Peripheral vascular disease I73.9 ; Encounter for immunization Z23 ; Liver transplant recipient Z94.4 ; Acquired absence of right great toe Z89.411 ; 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 and Routine adult health maintenance Z00.00 [place] [address] [address] Nov, Medicare annual wellness visit, initial Z00.00 ; Type 2 diabetes mellitus with other specified complication E11.69 ; Depressive disorder, not elsewhere classified F32.9 ; Peripheral vascular disease I73.9 ; Encounter for immunization Z23 ; Liver transplant recipient Z94.4 ; Status post amputation of toe of right foot Z89.421 and BMI 32.0-32.9,adult Z68.32 [place] [address] [address] 13 Oct, 2017 [place] [address] [address] Oct, [place] [address] [address] Oct, Type 2 diabetes mellitus with other spec ified complication E11.69 ; Chronic hepatitis C without hepatic coma B18.2 and Depressive disorder, not elsewhere classified F32.9 [place] [address] [address] Sep, [place] [address] [address] Sep, [place] [address] [address] Sep, [facility] [address] [id number] [place] [id number] Sep, Diabetes E11.9 [place] [address] [address] Sep, [employer] [address] [place] [id number] Sep Peripheral vascular disease I73.9 ; 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 ; Status post amputation of toe of right foot Z89.421 ; Type 2 diabetes mellitus with other specified complication E11.69 and Liver transplant recipient Z94.4 [facility] [address] [id number] [id number] 16 Sep, 2017 [facility] [address] [place] [id number] 13 Sep Status post amputation of toe of right foot Z89.421 ; 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 ; Osteomyelitis M86.9 ; Diabetes E11.9 ; Liver transplant recipient Z94.4 and History of drug abuse Z87.898 [facility] [address] [id number] [address] 06 Sep, 2017 [place] [address] [address] Jan, [place] [address] [address] Jan, [place] [address] [address] December, Diabetes E11.9 ; Back pain M54.9 and Ane sapna due to other cause D64.89 [place] [address] [address] December, Osteomyelitis, unspecified M86.9 [place] [address] [address] December, [place] [address] [address] December, Diabetes E11.9 [place] [address] [address] Jan, Seborrheic keratoses L82.1 and Abscess o f neck L02.11 [place] [address] [address] Jan, Sebaceous cyst L72.3 [facility] [address] [facility] [id number] [place] [address] Jan, Abscess, neck L02.11 [facility] [address] [address] Oct, Diabetes E11.9 [facility] [address] [address] Oct, Back pain M54.9 [facility] [address] [address] Sep, Back pain M54.9 [facility] [address] [address] Sep, Back pain M54.9 [facility] [address] [address] Aug, Back pain M54.9 [facility] [address] [address] Aug, Diabetes E11.9 and Liver transplant reci cara Z94.4 [facility] [address] [address] Aug, Back pain M54.9 [facility] [address] [address] Jul, [facility] [address] [address] Jul, [facility] [address] [address] Jul, [facility] [address] [address] Jun, Depressive disorder, not elsewhere class ified F32.9 [facility] [address] [address] Jun, Diabetes E11.9 ; Depressive disorder, no t elsewhere classified F32.9 and Back pain M54.9 [facility] [address] [address] Jun, [facility] [address] [address] Jun, [facility] [id number] [place] [address] May, [facility] [id number] [place] [address] May, [facility] [id number] [place] [address] Apr, [facility] [id number] [place] [address] Apr, [facility] [id number] [place] [address] Mar, [facility] [id number] [place] [address] Mar, [facility] [address] [id number] [place] [id number] Mar, Dental examination V72.2 [facility] [id number] [place] [address] Jan, [facility] [id number] [place] [address] Jan, [facility] [id number] [place] [address] Jan, [facility] [id number] [place] [address] Jan, [facility] [id number] [place] [address] Jan, [facility] [id number] [place] [address] December, [facility] [id number] [place] [address] December, [facility] [id number] [place] [address] December, Diabetes mellitus type 2, uncontrolled 2 50.02 and Osteomyelitis of ankle or foot 730.27 [facility] [id number] [place] [address] December, [facility] [place] [facility] [address] [facility] [id number] [place] [address] Nov, [facility] [place] [facility] [address] [id number] [place] [address] Nov, [facility] [place] [facility] [address] [id number] [place] [address] Oct, [facility] [place] [facility] [address] [id number] [place] [address] Oct, [facility] [place] [facility] [address] [id number] [place] [address] Oct, [facility] [place] [facility] [address] [id number] [place] [address] Oct, [facility] [place] [facility] [address] [id number] [place] [address] Sep, [facility] [place] [facility] [address] [id number] [place] [address] Sep, [facility] [place] [facility] [address] [id number] [place] [address] Sep, [facility] [place] [facility] [address] [id number] [place] [address] Sep, [facility] [place] [facility] [address] [id number] [place] [address] Aug, [facility] [place] [facility] [address] [id number] [place] [address] Aug, [facility] [place] [facility] [address] [id number] [place] [address] Aug, [facility] [place] [facility] [address] [id number] [place] [address] Aug, [facility] [place] [facility] [address] [id number] [place] [address] Aug, [facility] [place] [facility] [address] [id number] [place] [address] Aug, [facility] [place] [facility] [address] [id number] [place] [address] Jul, [facility] [place] [facility] [address] [id number] [place] [address] Jul, [facility] [place] [facility] [address] [id number] [place] [address] Jul, [facility] [place] [facility] [address] [id number] [place] [address] Jul, [facility] [place] [facility] [address] [id number] [place] [address] Jul, [facility] [place] [facility] [address] [id number] [place] [address] Jul, [facility] [place] [facility] [address] [id number] [place] [address] Jun, [facility] [place] [facility] [id number] [place] [address] Jun, [facility] [place] [facility] [address] [id number] [place] [address] Jun, [facility] [place] [facility] [address] [id number] [place] [address] Jun, [facility] [place] [facility] [address] [id number] [place] [address] May, [facility] [place] [facility] [address] [id number] [place] [address] May, [facility] [place] [facility] [address] [id number] [place] [address] May, [facility] [place] [facility] [address] [id number] [place] [address] May, [facility] [place] [facility] [address] [id number] [place] [address] May, [facility] [place] [facility] [address] [id number] [place] [address] May, [facility] [place] [facility] [address] [id number] [place] [address] Apr, [facility] [place] [facility] [address] [id number] [facility] [place] [address] Apr, [facility] [place] [facility] [address] [facility] [id number] [facility] [place] [address] Apr, [facility] [place] [facility] [address] [id number] [facility] [place] [address] Apr, [facility] [place] [facility] [address] [facility] [id number] [place] [address] Mar, [facility] [place] [facility] [address] [facility] [id number] [facility] [place] [address] Mar, [facility] [place] [facility] [address] [id number] [place] [address] Mar, [facility] [place] [facility] [address] [id number] [place] [address] Mar, [facility] [place] [facility] [address] [id number] [place] [address] Jan, [facility] [place] [facility] [address] [id number] [facility] [place] [address] Jan, [facility] [place] [facility] [address] [id number] [place] [address] Jan, [facility] [place] [facility] [address] [id number] [place] [address] Jan, [facility] [place] [facility] [address] [id number] [place] [address] Jan, [facility] [place] [facility] [address] [id number] [place] [address] Jan, [facility] [place] [facility] [address] [id number] [place] [address] Jan, [facility] [place] [facility] [address] [id number] [place] [address] Jan, [facility] [place] [facility] [address] [id number] [place] [address] Jan, [facility] [place] [facility] [address] [facility] [id number] [facility] [place] [address] Jan, [facility] [place] [facility] [address] [id number] [place] [address] Jan, [facility] [place] [facility] [address] [facility] [id number] [place] [address] Jan, [facility] [place] [facility] [address] [id number] [place] [address] December, [facility] [place] [facility] [address] [facility] [id number] [facility] [place] [address] December, [facility] [place] [facility] [address] [facility] [id number] [place] [address] December, [facility] [place] [facility] [address] [id number] [place] [address] December, [facility] [place] [facility] [address] [id number] [place] [address] December, [facility] [place] [facility] [address] [id number] [place] [address] December, [facility] [place] [facility] [address] [id number] [place] [address] Nov, [facility] [place] [facility] [address] [id number] [place] [address] Nov, [facility] [place] [facility] [address] [id number] [place] [address] Nov, [facility] [place] [facility] [address] [id number] [place] [address] Nov, [facility] [place] [facility] [address] [facility] [id number] [place] [address] Nov, [facility] [place] [facility] [address] [id number] [place] [address] Nov, [facility] [place] [facility] [address] [id number] [place] [address] Oct, [facility] [place] [facility] [address] [id number] [place] [address] Oct, [facility] [place] [facility] [address] [id number] [place] [address] Oct, [facility] [place] [facility] [address] [id number] [place] [address] Oct, [facility] [place] [facility] [address] [id number] [place] [address] Sep, [facility] [place] [facility] [address] [id number] [place] [address] Sep, [facility] [place] [facility] [address] [facility] [id number] [place] [address] Sep, [facility] [place] [facility] [address] [id number] [place] [address] Sep, [facility] [place] [facility] [address] [id number] [place] [address] Sep, [facility] [place] [facility] [address] [id number] [place] [address] Sep, [facility] [place] [facility] [address] [id number] [place] [address] Sep, [facility] [place] [facility] [address] [id number] [place] [address] Sep, [facility] [place] [facility] [address] [id number] [place] [address] Sep, [facility] [place] [facility] [address] [id number] [place] [address] Sep, [facility] [place] [facility] [address] [id number] [place] [address] Aug, [facility] [place] [facility] [address] [id number] [place] [address] Aug, [facility] [place] [facility] [address] [id number] [place] [address] Aug, [facility] [place] [facility] [address] [id number] [place] [address] Aug, [facility] [place] [facility] [address] [id number] [place] [address] Aug, [facility] [place] [facility] [address] [id number] [place] [address] Aug, [facility] [place] [facility] [address] [id number] [place] [address] Jul, [facility] [place] [facility] [address] [id number] [place] [address] Jul, [facility] [place] [facility] [address] [id number] [place] [address] Jul, [facility] [place] [facility] [address] [id number] [place] [address] Jul, [facility] [place] [facility] [address] [id number] [place] [address] Jul, [facility] [place] [facility] [address] [id number] [place] [address] Jul, [facility] [place] [facility] [address] [id number] [place] [address] Jul, [facility] [place] [facility] [address] [id number] [place] [address] Jul, [facility] [place] [facility] [address] [id number] [place] [address] Jul, [facility] [place] [facility] [address] [id number] [place] [address] Jul, [facility] [place] [facility] [address] [id number] [place] [address] Jun, [facility] [place] [facility] [address] [id number] [place] [address] Jun, [facility] [place] [facility] [id number] [place] [address] Jun, [facility] [place] [facility] [address] [id number] [place] [address] Jun, [facility] [place] [address] [id number] [place] [address] May, [facility] [address] [id number] [place] [address] 18 May, 2013 [facility] [address] [id number] [place] [address] 27 Apr, 2013 [facility] [address] [id number] [place] [address] 20 Apr, 2013 [facility] [address] [id number] [place] [address] 05 Apr, 2013 [facility] [address] [id number] [place] [address] Mar, [facility] [address] [id number] [place] [address] Mar, [facility] [address] [id number] [place] [address] Jan, [facility] [address] [id number] [place] [address] Jan, [facility] [address] [id number] [place] [address] Jan, [facility] [address] [id number] [place] [address] Jan, [facility] [address] [id number] [place] [address] 15 Jan, 2013 [facility] [address] [id number] [place] [address] 14 Jan, 2013 [facility] [address] [id number] [place] [address] Jan, [facility] [address] [id number] [place] [address] December, [facility] [address] [id number] [place] [address] December, [facility] [address] [id number] [place] [address] December, [facility] [address] [id number] [place] [address] Nov, [facility] [address] [id number] [place] [address] Nov, [facility] [address] [id number] [place] [address] Oct, [facility] [address] [id number] [place] [address] Oct, [facility] [address] [id number] [place] [address] Sep, [facility] [address] [id number] [place] [address] Sep, [facility] [address] [id number] [place] [address] Aug, [facility] [address] [id number] [place] [address] Aug, [facility] [address] [id number] [place] [address] Jul, [facility] [address] [id number] [place] [address] Jul, [facility] [address] [id number] [place] [address] Jul, [facility] [address] [id number] [place] [address] Jul, [facility] [address] [id number] [place] [address] Jul, [facility] [address] [id number] [place] [address] Jul, [facility] [address] [id number] [place] [address] Jul, [facility] [address] [id number] [place] [address] Jul, [facility] [address] [id number] [place] [address] Jun, [facility] [address] [id number] [place] [address] Jun, [facility] [address] [id number] [place] [address] Jun, [facility] [address] [id number] [place] [address] Jun, [facility] [address] [id number] [place] [address] Jun, [facility] [address] [id number] [place] [address] Jun, [facility] [address] [id number] [place] [address] Jun, [facility] [address] [id number] [place] [address] Jun, [facility] [id number] [place] [address] Jun, [facility] [address] [id number] [place] [address] Jun, [facility] [address] [id number] [place] [address] May, [facility] [address] [id number] [place] [id number] May, [facility] [address] [id number] [place] [address] May, [facility] [address] [id number] [place] [address] Apr, [facility] [address] [id number] [place] [address] Apr, [facility] [id number] [place] [address] Mar, [facility] [address] [id number] [place] [address] Mar, [facility] [address] [id number] [place] [address] Jan, [facility] [address] [id number] [place] [address] Jan, [facility] [address] [id number] [place] [address] Jan, [facility] [address] [id number] [place] [address] Jan, [facility] [address] [id number] [place] [address] Jan, [facility] [address] [id number] [place] [address] December, [facility] [address] [id number] [place] [address] December, [facility] [address] [id number] [place] [address] Nov, [facility] [address] [id number] [place] [address] Nov, [facility] [address] [id number] [place] [address] Oct, [facility] [address] [id number] [place] [address] Oct, [facility] [address] [id number] [place] [address] Oct, [facility] [address] [id number] [place] [address] Oct, [facility] [address] [id number] [place] [address] Sep, [facility] [address] [id number] [place] [address] Sep, [facility] [address] [id number] [place] [address] Sep, [facility] [address] [id number] [place] [address] Sep, [facility] [address] [id number] [place] [address] 15 Sep, 2011 [facility] [address] [id number] [place] [address] 15 Sep, 2011 [facility] [address] [id number] [place] [address] 15 Sep, 2011 [facility] [id number] [place] [address] 15 Sep, 2011 [facility] [id number] [place] [address] 10 Sep, 2011 [facility] [address] [id number] [place] [address] Aug, [facility] [id number] [place] [address] Aug, [facility] [id number] [place] [address] 30 Jul, 2011 [facility] [id number] [place] [address] Jul, [facility] [id number] [place] [address] Jul, [facility] [id number] [place] [address] Jul, [facility] [id number] [place] [address] Jul, [facility] [id number] [place] [address] Jun, [facility] [address] [id number] [place] [address] Jun, [facility] [id number] [place] [address] Jun, [facility] [address] [id number] [place] [address] Jun, [facility] [id number] [place] [address] Jun, [facility] [address] [id number] [place] [address] May, [facility] [id number] [place] [address] Jul, [facility] [address] [id number] [place] [address] Jul, [facility] [address] [address] Jul, [facility] [address] [id number] [place] [address] Jul, [facility] [id number] [place] [address] Jun, [facility] [address] [id number] [place] [address] Jun, [facility] [address] [id number] [place] [address] May, IMMUNIZATIONS No Known Immunizations SOCIAL HISTORY [...]
--- OUTSIDE RECORDS SUMMARY | 2020-01-03 21:24 | XMS REPORT ---
Author Author Stevie QUIÑONEZ Organization [facility] Address [address] [place] [address] Care Team Providers Care [employer] Supervisor Name Role Phone SUSAN QUIÑONEZ Unavailable PROBLEMS Type Condition ICD9-CM Code BZV15-QS Code Onset Dates Condition S tatus SNOMED Code Problem Depressive disorder, not elsewhere classified F32. 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 Active 216653355 Problem Status post amputation of toe of right foot Z89.42 1 Active 035257275 Problem Peripheral vascular disease I73.9 Ac tive 742773361 Problem Chronic hepatitis C without hepatic coma B18.2 Active 595781062 Problem BMI 32.0-32.9,adult Z68.32 Active 400259740 Problem Venous insufficiency I87.2 Active 53999331 Problem Type 2 diabetes mellitus with other specified complication E11.69 Active [id number] Problem Long-term insulin use Z79.4 Active 753561559 Problem Osteomyelitis M86.9 Active 033481 00 Problem Acquired absence of right great toe Z89.411 Active 429326312 Problem 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 [place] [address] Sep, [facility] [address] [id number] [place] [address] Jun, [facility] [address] [address] Jun, Type 2 diabetes mellitus with other spec ified complication E11.69 ; Interstitial pulmonary fibrosis J84.10 and Venous insufficiency I87.2 [facility] [id number] [place] [address] 11 May, 2019 Coronary artery disease involving [place] coronary artery of [place] heart without angina pectoris I25.10 ; Type 2 diabetes mellitus with other specified complication E11.69 and Long-term insulin use Z79.4 [place] [address] [address] 07 May, 2019 [place] [address] [address] May, [place] [address] [address] Apr, Type 2 diabetes mellitus with other spec ified complication E11.69 ; Coronary artery disease involving [place] coronary artery of [place] heart without angina pectoris I25.10 and Encounter for immunization Z23 [place] [address] [address] Apr, [place] [address] [address] Apr, [place] [address] [address] December, Chronic hepatitis C without hepatic coma B18.2 and Type 2 diabetes mellitus with other specified complication E11.69 [place] [address] [address] Nov, Abnormal PSA R97.20 [facility] [address] [address] Nov, [place] [address] [address] Nov, Encounter for Medicare annual wellness e xam Z00.00 ; Type 2 diabetes mellitus with other specified complication E11.69 ; Peripheral vascular disease I73.9 ; Encounter for immunization Z23 ; Liver transplant recipient Z94.4 ; Acquired absence of right great toe Z89.411 ; 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 and Routine adult health maintenance Z00.00 [place] [address] [address] Nov, Medicare annual wellness visit, initial Z00.00 ; Type 2 diabetes mellitus with other specified complication E11.69 ; Depressive disorder, not elsewhere classified F32.9 ; Peripheral vascular disease I73.9 ; Encounter for immunization Z23 ; Liver transplant recipient Z94.4 ; Status post amputation of toe of right foot Z89.421 and BMI 32.0-32.9,adult Z68.32 [place] [address] [address] 13 Oct, 2017 [place] [address] [address] Oct, [place] [address] [address] Oct, Type 2 diabetes mellitus with other spec ified complication E11.69 ; Chronic hepatitis C without hepatic coma B18.2 and Depressive disorder, not elsewhere classified F32.9 [place] [address] [address] Sep, [place] [address] [address] Sep, [place] [address] [address] Sep, [facility] [address] [id number] [place] [id number] Sep, Diabetes E11.9 [place] [address] [address] Sep, [facility] [address] [place] [id number] Sep Peripheral vascular disease I73.9 ; 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 ; Status post amputation of toe of right foot Z89.421 ; Type 2 diabetes mellitus with other specified complication E11.69 and Liver transplant recipient Z94.4 [facility] [address] [id number] [id number] 16 Sep, 2017 [facility] [address] [place] [id number] 13 Sep Status post amputation of toe of right foot Z89.421 ; 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 ; Osteomyelitis M86.9 ; Diabetes E11.9 ; Liver transplant recipient Z94.4 and History of drug abuse Z87.898 [facility] [address] [id number] [id number] 06 Sep, 2017 [place] [address] [address] Jan, [place] [address] [address] Jan, [place] [address] [address] December, Diabetes E11.9 ; Back pain M54.9 and Ane sapna due to other cause D64.89 [place] [address] [address] December, Osteomyelitis, unspecified M86.9 [place] [address] [address] December, [place] [address] [address] December, Diabetes E11.9 [place] [address] [address] Jan, Seborrheic keratoses L82.1 and Abscess o f neck L02.11 [place] [address] [address] Jan, Sebaceous cyst L72.3 [facility] [address] [facility] [id number] [place] [address] Jan, Abscess, neck L02.11 [facility] [address] [address] Oct, Diabetes E11.9 [facility] [address] [address] Oct, Back pain M54.9 [facility] [address] [address] Sep, Back pain M54.9 [facility] [address] [address] Sep, Back pain M54.9 [facility] [address] [address] Aug, Back pain M54.9 [facility] [address] [address] Aug, Diabetes E11.9 and Liver transplant reci cara Z94.4 [facility] [address] [address] Aug, Back pain M54.9 [facility] [address] [address] Jul, [facility] [address] [address] Jul, [facility] [address] [address] Jul, [facility] [address] [address] Jun, Depressive disorder, not elsewhere class ified F32.9 [facility] [address] [address] Jun, Diabetes E11.9 ; Depressive disorder, no t elsewhere classified F32.9 and Back pain M54.9 [facility] [address] [address] Jun, [facility] [address] [address] Jun, [facility] [id number] [place] [address] May, [facility] [id number] [place] [address] May, [facility] [id number] [place] [address] Apr, [facility] [id number] [place] [address] Apr, [facility] [id number] [place] [address] Mar, [facility] [id number] [place] [address] Mar, [facility] [address] [id number] [place] [id number] Mar, Dental examination V72.2 [facility] [id number] [place] [address] Jan, [facility] [id number] [place] [address] Jan, [facility] [id number] [place] [address] Jan, [facility] [id number] [place] [address] Jan, [facility] [id number] [place] [address] Jan, [facility] [id number] [place] [address] December, [facility] [id number] [place] [address] December, [facility] [id number] [place] [address] December, Diabetes mellitus type 2, uncontrolled 2 50.02 and Osteomyelitis of ankle or foot 730.27 [facility] [id number] [place] [address] December, [facility] [place] [facility] [address] [facility] [id number] [place] [address] Nov, [facility] [place] [facility] [address] [id number] [place] [address] Nov, [facility] [place] [facility] [address] [id number] [place] [address] Oct, [facility] [place] [facility] [address] [id number] [place] [address] Oct, [facility] [place] [facility] [address] [id number] [place] [address] Oct, [facility] [place] [facility] [address] [id number] [place] [address] Oct, [facility] [place] [facility] [address] [id number] [place] [address] Sep, [facility] [place] [facility] [address] [id number] [place] [address] Sep, [facility] [place] [facility] [address] [id number] [place] [address] Sep, [facility] [place] [facility] [address] [id number] [place] [address] Sep, [facility] [place] [facility] [address] [id number] [place] [address] Aug, [facility] [place] [facility] [address] [id number] [place] [address] Aug, [facility] [place] [facility] [address] [id number] [place] [address] Aug, [facility] [place] [facility] [address] [id number] [place] [address] Aug, [facility] [place] [facility] [address] [id number] [place] [address] Aug, [facility] [place] [facility] [address] [id number] [place] [address] Aug, [facility] [place] [facility] [address] [id number] [place] [address] Jul, [facility] [place] [facility] [address] [id number] [place] [address] Jul, [facility] [place] [facility] [address] [id number] [place] [address] Jul, [facility] [place] [facility] [address] [id number] [place] [address] Jul, [facility] [place] [facility] [address] [id number] [place] [address] Jul, [facility] [place] [facility] [address] [id number] [place] [address] Jul, [facility] [place] [facility] [address] [id number] [place] [address] Jun, [facility] [place] [facility] [id number] [place] [address] Jun, [facility] [place] [facility] [address] [id number] [place] [address] Jun, [facility] [place] [facility] [address] [id number] [place] [address] Jun, [facility] [place] [facility] [address] [id number] [place] [address] May, [facility] [place] [facility] [address] [id number] [place] [address] May, [facility] [place] [facility] [address] [id number] [place] [address] May, [facility] [place] [facility] [address] [id number] [place] [address] May, [facility] [place] [facility] [address] [id number] [place] [address] May, [facility] [place] [facility] [address] [id number] [place] [address] May, [facility] [place] [facility] [address] [id number] [place] [address] Apr, [facility] [place] [facility] [address] [id number] [facility] [place] [address] Apr, [facility] [place] [facility] [address] [facility] [id number] [facility] [place] [address] Apr, [facility] [place] [facility] [address] [id number] [facility] [place] [address] Apr, [facility] [place] [facility] [address] [facility] [id number] [place] [address] Mar, [facility] [place] [facility] [address] [facility] [id number] [facility] [place] [address] Mar, [facility] [place] [facility] [address] [id number] [place] [address] Mar, [facility] [place] [facility] [address] [id number] [place] [address] Mar, [facility] [place] [facility] [address] [id number] [place] [address] Jan, [facility] [place] [facility] [address] [id number] [facility] [place] [address] Jan, [facility] [place] [facility] [address] [id number] [place] [address] Jan, [facility] [place] [facility] [address] [id number] [place] [address] Jan, [facility] [place] [facility] [address] [id number] [place] [address] Jan, [facility] [place] [facility] [address] [id number] [place] [address] Jan, [facility] [place] [facility] [address] [id number] [place] [address] Jan, [facility] [place] [facility] [address] [id number] [place] [address] Jan, [facility] [place] [facility] [address] [id number] [place] [address] Jan, [facility] [place] [facility] [address] [facility] [id number] [facility] [place] [address] Jan, [facility] [place] [facility] [address] [id number] [place] [address] Jan, [facility] [place] [facility] [address] [facility] [id number] [place] [address] Jan, [facility] [place] [facility] [address] [id number] [place] [address] December, [facility] [place] [facility] [address] [facility] [id number] [facility] [place] [address] December, [facility] [place] [facility] [address] [facility] [id number] [place] [address] December, [facility] [place] [facility] [address] [id number] [place] [address] December, [facility] [place] [facility] [address] [id number] [place] [address] December, [facility] [place] [facility] [address] [id number] [place] [address] December, [facility] [place] [facility] [address] [id number] [place] [address] Nov, [facility] [place] [facility] [address] [id number] [place] [address] Nov, [facility] [place] [facility] [address] [id number] [place] [address] Nov, [facility] [place] [facility] [address] [id number] [place] [address] Nov, [facility] [place] [facility] [address] [facility] [id number] [place] [address] Nov, [facility] [place] [facility] [address] [id number] [place] [address] Nov, [facility] [place] [facility] [address] [id number] [place] [address] Oct, [facility] [place] [facility] [address] [id number] [place] [address] Oct, [facility] [place] [facility] [address] [id number] [place] [address] Oct, [facility] [place] [facility] [address] [id number] [place] [address] Oct, [facility] [place] [facility] [address] [id number] [place] [address] Sep, [facility] [place] [facility] [address] [id number] [place] [address] Sep, [facility] [place] [facility] [address] [facility] [id number] [place] [address] Sep, [facility] [place] [facility] [address] [id number] [place] [address] Sep, [facility] [place] [facility] [address] [id number] [place] [address] Sep, [facility] [place] [facility] [address] [id number] [place] [address] Sep, [facility] [place] [facility] [address] [id number] [place] [address] Sep, [facility] [place] [facility] [address] [id number] [place] [address] Sep, [facility] [place] [facility] [address] [id number] [place] [address] Sep, [facility] [place] [facility] [address] [id number] [place] [address] Sep, [facility] [place] [facility] [address] [id number] [place] [address] Aug, [facility] [place] [facility] [address] [id number] [place] [address] Aug, [facility] [place] [facility] [address] [id number] [place] [address] Aug, [facility] [place] [facility] [address] [id number] [place] [address] Aug, [facility] [place] [facility] [address] [id number] [place] [address] Aug, [facility] [place] [facility] [address] [id number] [place] [address] Aug, [facility] [place] [facility] [address] [id number] [place] [address] Jul, [facility] [place] [facility] [address] [id number] [place] [address] Jul, [facility] [place] [facility] [address] [id number] [place] [address] Jul, [facility] [place] [facility] [address] [id number] [place] [address] Jul, [facility] [place] [facility] [address] [id number] [place] [address] Jul, [facility] [place] [facility] [address] [id number] [place] [address] Jul, [facility] [place] [facility] [address] [id number] [place] [address] Jul, [facility] [place] [facility] [address] [id number] [place] [address] Jul, [facility] [place] [facility] [address] [id number] [place] [address] Jul, [facility] [place] [facility] [address] [id number] [place] [address] Jul, [facility] [place] [facility] [address] [id number] [place] [address] Jun, [facility] [place] [facility] [address] [id number] [place] [address] Jun, [facility] [place] [facility] [id number] [place] [address] Jun, [facility] [place] [facility] [address] [id number] [place] [address] Jun, [facility] [address] [id number] [place] [address] May, [facility] [address] [id number] [place] [address] 18 May, 2013 [facility] [address] [id number] [place] [address] 27 Apr, 2013 [facility] [address] [id number] [place] [address] 20 Apr, 2013 [facility] [address] [id number] [place] [address] 05 Apr, 2013 [facility] [address] [id number] [place] [address] Mar, [facility] [address] [id number] [place] [address] Mar, [facility] [address] [id number] [place] [address] Jan, [facility] [address] [id number] [place] [address] Jan, [facility] [address] [id number] [place] [address] Jan, [facility] [address] [id number] [place] [address] Jan, [facility] [address] [id number] [place] [address] 15 Jan, 2013 [facility] [address] [id number] [place] [address] 14 Jan, 2013 [facility] [address] [id number] [place] [address] Jan, [facility] [address] [id number] [place] [address] December, [facility] [address] [id number] [place] [address] December, [facility] [address] [id number] [place] [address] December, [facility] [address] [id number] [place] [address] Nov, [facility] [address] [id number] [place] [address] Nov, [facility] [address] [id number] [place] [address] Oct, [facility] [address] [id number] [place] [address] Oct, [facility] [address] [id number] [place] [address] Sep, [facility] [address] [id number] [place] [address] Sep, [facility] [address] [id number] [place] [address] Aug, [facility] [address] [id number] [place] [address] Aug, [facility] [address] [id number] [place] [address] Jul, [facility] [address] [id number] [place] [address] Jul, [facility] [address] [id number] [place] [address] Jul, [facility] [address] [id number] [place] [address] Jul, [facility] [address] [id number] [place] [address] Jul, [facility] [address] [id number] [place] [address] Jul, [facility] [address] [id number] [place] [address] Jul, [facility] [address] [id number] [place] [address] Jul, [facility] [address] [facility] [id number] [place] [address] Jun, [facility] [address] [id number] [place] [address] Jun, [facility] [address] [id number] [place] [address] Jun, [facility] [address] [id number] [place] [address] Jun, [facility] [address] [id number] [place] [address] Jun, [facility] [address] [id number] [place] [address] Jun, [facility] [address] [id number] [place] [address] Jun, [facility] [address] [id number] [place] [address] Jun, [facility] [id number] [place] [address] Jun, [facility] [address] [id number] [place] [address] Jun, [facility] [address] [id number] [place] [address] May, [facility] [address] [id number] [place] [address] May, [facility] [address] [id number] [place] [address] May, [facility] [address] [id number] [place] [address] Apr, [facility] [address] [id number] [place] [address] Apr, [facility] [id number] [place] [address] Mar, [facility] [address] [id number] [place] [address] Mar, [facility] [address] [id number] [place] [address] Jan, [facility] [address] [id number] [place] [address] Jan, [facility] [address] [id number] [place] [address] Jan, [facility] [address] [id number] [place] [address] Jan, [facility] [address] [id number] [place] [address] Jan, [facility] [address] [id number] [place] [address] December, [facility] [address] [id number] [place] [address] December, [facility] [address] [id number] [place] [address] Nov, [facility] [address] [id number] [place] [address] Nov, [facility] [address] [id number] [place] [address] Oct, [facility] [address] [id number] [place] [address] Oct, [facility] [address] [id number] [place] [address] Oct, [facility] [address] [id number] [place] [address] Oct, [facility] [address] [id number] [place] [address] Sep, [facility] [address] [id number] [place] [address] Sep, [facility] [address] [id number] [place] [address] Sep, [facility] [address] [id number] [place] [address] Sep, [facility] [address] [id number] [place] [address] 15 Sep, 2011 [facility] [address] [id number] [place] [address] 15 Sep, 2011 [facility] [address] [id number] [place] [address] 15 Sep, 2011 [facility] [id number] [place] [address] 15 Sep, 2011 [facility] [id number] [place] [address] 10 Sep, 2011 [facility] [address] [id number] [place] [address] Aug, [facility] [id number] [place] [address] Aug, [facility] [id number] [place] [address] 30 Jul, 2011 [facility] [id number] [place] [address] Jul, [facility] [id number] [place] [address] Jul, [facility] [id number] [place] [address] Jul, [facility] [id number] [place] [address] Jul, [facility] [id number] [place] [address] Jun, [facility] [address] [id number] [place] [address] Jun, [facility] [id number] [place] [address] Jun, [facility] [address] [id number] [place] [address] Jun, [facility] [id number] [place] [address] Jun, [facility] [address] [id number] [place] [address] May, [facility] [id number] [place] [address] Jul, [facility] [address] [id number] [place] [address] Jul, [facility] [address] [address] Jul, [facility] [address] [id number] [place] [address] Jul, [facility] [id number] [place] [address] Jun, [facility] [address] [id number] [place] [address] Jun, [facility] [address] [id number] [place] [address] May, IMMUNIZATIONS No Known Immunizations SOCIAL HISTORY [...]
--- OUTSIDE RECORDS SUMMARY | 2020-01-03 21:24 | XMS REPORT ---
Author Author Stevie BALES [facility] Address [address] [place] [address] Care Team Providers Care Accounting Analyst Name Role Phone KADE BALES Unavailable PROBLEMS Type Condition ICD9-CM Code [id number] Code Onset Dates Condition S tatus SNOMED Code Problem Depressive disorder, not elsewhere classified F32. 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 Active 435891251 Problem Status post amputation of toe of right foot Z89.42 1 Active 810024268 Problem Peripheral vascular disease I73.9 Ac tive 940945658 Problem Chronic hepatitis C without hepatic coma B18.2 Active 918569901 Problem BMI 32.0-32.9,adult Z68.32 Active 287861832 Problem Venous insufficiency I87.2 Active 08688770 Problem Type 2 diabetes mellitus with other specified complication E11.69 Active 75868890905505 Problem Long-term insulin use Z79.4 Active 329178037 Problem Osteomyelitis M86.9 Active 556825 00 Problem Acquired absence of right great toe Z89.411 Active 956619384 Problem 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 [place] [address] Sep, [facility] [place] [address] [id number] [place] [address] Jun, [facility] [place] [id number] [place] [address] Jun, Type 2 diabetes mellitus with other spec ified complication E11.69 ; Interstitial pulmonary fibrosis J84.10 and Venous insufficiency I87.2 [facility] [place] [id number] [place] [address] May, Coronary artery disease involving [place] coronary artery of [place] heart without angina pectoris I25.10 ; Type 2 diabetes mellitus with other specified complication E11.69 and Long-term insulin use Z79.4 [place] [address] [address] May, [place] [address] [address] May, [place] [address] [address] Apr, Type 2 diabetes mellitus with other spec ified complication E11.69 ; Coronary artery disease involving [place] coronary artery of [place] heart without angina pectoris I25.10 and Encounter for immunization Z23 [place] [address] [address] Apr, [place] [address] [address] Apr, [place] [address] [address] December, Chronic hepatitis C without hepatic coma B18.2 and Type 2 diabetes mellitus with other specified complication E11.69 [place] [id number] [place] [address] Nov, Abnormal PSA R97.20 [facility] [place] [address] [address] Nov, [place] [address] [address] Nov, Encounter for Medicare annual wellness e xam Z00.00 ; Type 2 diabetes mellitus with other specified complication E11.69 ; Peripheral vascular disease I73.9 ; Encounter for immunization Z23 ; Liver transplant recipient Z94.4 ; Acquired absence of right great toe Z89.411 ; 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 and Routine adult health maintenance Z00.00 [place] [address] [address] Nov, Medicare annual wellness visit, initial Z00.00 ; Type 2 diabetes mellitus with other specified complication E11.69 ; Depressive disorder, not elsewhere classified F32.9 ; Peripheral vascular disease I73.9 ; Encounter for immunization Z23 ; Liver transplant recipient Z94.4 ; Status post amputation of toe of right foot Z89.421 and BMI 32.0-32.9,adult Z68.32 [place] [address] [address] 13 Oct, 2017 [place] [address] [address] Oct, [place] [address] [address] Oct, Type 2 diabetes mellitus with other spec ified complication E11.69 ; Chronic hepatitis C without hepatic coma B18.2 and Depressive disorder, not elsewhere classified F32.9 [place] [address] [address] Sep, [place] [address] [address] Sep, [place] [address] [address] Sep, [facility] [place] [address] [id number] [id number] Sep, Diabetes E11.9 [place] [address] [address] Sep, [employer] [address] [place] [id number] Sep Peripheral vascular disease I73.9 ; 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 ; Status post amputation of toe of right foot Z89.421 ; Type 2 diabetes mellitus with other specified complication E11.69 and Liver transplant recipient Z94.4 [facility] [place] [address] [id number] [id number] 16 Sep, 2017 [employer] [address] [id number] 13 Sep Status post amputation of toe of right foot Z89.421 ; 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 ; Osteomyelitis M86.9 ; Diabetes E11.9 ; Liver transplant recipient Z94.4 and History of drug abuse Z87.898 [facility] [place] [address] [id number] [id number] 06 Sep, 2017 [place] [address] [address] Jan, [place] [address] [address] Jan, [place] [address] [address] December, Diabetes E11.9 ; Back pain M54.9 and Ane sapna due to other cause D64.89 [place] [address] [address] December, Osteomyelitis, unspecified M86.9 [place] [address] [address] December, [place] [address] [address] December, Diabetes E11.9 [place] [address] [address] Jan, Seborrheic keratoses L82.1 and Abscess o f neck L02.11 [place] [address] [address] Jan, Sebaceous cyst L72.3 [facility] [address] [facility] [place] 2[facility] [id number] [address] [place] [address] Jan, Abscess, neck L02.11 [facility] [place] [address] [address] Oct, Diabetes E11.9 [facility] [place] [address] [address] Oct, Back pain M54.9 [facility] [place] [address] [address] Sep, Back pain M54.9 [facility] [place] [address] [address] Sep, Back pain M54.9 [facility] [place] [address] [address] Aug, Back pain M54.9 [facility] [place] [address] [address] Aug, Diabetes E11.9 and Liver transplant reci cara Z94.4 [facility] [place] [address] [address] Aug, Back pain M54.9 [facility] [place] [address] [address] Jul, [facility] [place] [address] [address] Jul, [facility] [place] [address] [address] Jul, [facility] [place] [address] [address] Jun, Depressive disorder, not elsewhere class ified F32.9 [facility] [place] [address] [address] Jun, Diabetes E11.9 ; Depressive disorder, no t elsewhere classified F32.9 and Back pain M54.9 [facility] [place] [address] [address] Jun, [facility] [place] [address] [place] [address] Jun, [facility] [id number] [place] [address] May, [facility] [id number] [place] [address] May, [facility] [id number] [place] [address] Apr, [facility] [id number] [place] [address] Apr, [facility] [id number] [place] [address] Mar, [facility] [id number] [place] [address] Mar, [facility] [place] [facility] [address] [id number] [place] [id number] Mar, Dental examination V72.2 [facility] [id number] [place] [address] Jan, [facility] [id number] [place] [address] Jan, [facility] [id number] [place] [address] Jan, [facility] [id number] [place] [address] Jan, [facility] [id number] [place] [address] Jan, [facility] [id number] [place] [address] December, [facility] [id number] [place] [address] December, [facility] [id number] [place] [address] December, Diabetes mellitus type 2, uncontrolled 2 50.02 and Osteomyelitis of ankle or foot 730.27 [facility] [address] [id number] [place] [address] December, [facility] [address] [facility] [place] 2] [id number] [place] [address] Nov, [facility] [address] [id number] [place] [address] Nov, [facility] [address] [id number] [place] [address] Oct, [facility] [address] [id number] [place] [address] Oct, [facility] [address] [id number] [place] [address] Oct, [facility] [address] [id number] [place] [address] Oct, [facility] [address] [id number] [place] [address] Sep, [facility] [address] [id number] [place] [address] Sep, [facility] [address] [id number] [place] [address] Sep, [facility] [address] [id number] [place] [address] Sep, [facility] [address] [id number] [place] [address] Aug, [facility] [address] [id number] [place] [address] Aug, [facility] [address] [id number] [place] [address] Aug, [facility] [address] [id number] [place] [address] Aug, [facility] [address] [id number] [place] [address] Aug, [facility] [address] [id number] [place] [address] Aug, [facility] [address] [id number] [place] [address] Jul, [facility] [address] [id number] [place] [address] Jul, [facility] [address] [id number] [place] [address] Jul, [facility] [address] [id number] [place] [address] Jul, [facility] [address] [id number] [place] [address] Jul, [facility] [address] [id number] [place] [address] Jul, [facility] [address] [id number] [place] [address] Jun, [facility] [address] [id number] [place] [address] Jun, [facility] [address] [id number] [place] [address] Jun, [facility] [address] [id number] [place] [address] Jun, [facility] [address] [id number] [place] [address] May, [facility] [address] [id number] [place] [address] May, [facility] [address] [id number] [place] [address] May, [facility] [address] [id number] [place] [address] May, [facility] [address] [id number] [place] [address] May, [facility] [address] [id number] [place] [address] May, [facility] [address] [id number] [facility] [place] [address] Apr, 2013 [facility] [address] [id number] [facility] [place] [address] Apr, [facility] [address] [facility] [place] 2] [id number] [facility] [place] [address] Apr, [facility] [address] [id number] [place] [address] Apr, [facility] [address] [facility] [place] 2] [id number] [place] [address] Mar, [facility] [address] [facility] [place] 2] [id number] [place] [address] Mar, [facility] [address] [id number] [place] [address] Mar, [facility] [address] [id number] [place] [address] Mar, [facility] [address] [id number] [place] [address] Jan, [facility] [address] [facility] [place] 2] [id number] [place] [address] Jan, [facility] [address] [id number] [place] [address] Jan, [facility] [address] [id number] [place] [address] Jan, [facility] [address] [id number] [place] [address] Jan, [facility] [address] [facility] [place] 2] [id number] [place] [address] Jan, [facility] [address] [id number] [place] [address] Jan, [facility] [address] [id number] [place] [address] Jan, [facility] [address] [id number] [place] [address] Jan, [facility] [address] [id number] [place] [address] Jan, [facility] [address] [id number] [place] [address] Jan, [facility] [address] [id number] [place] [address] Jan, [facility] [address] [id number] [place] [address] December, [facility] [address] [id number] [place] [address] December, [facility] [address] [id number] [place] [address] December, [facility] [address] [id number] [place] [address] December, [facility] [address] [id number] [place] [address] December, [facility] [address] [id number] [place] [address] December, [facility] [address] [id number] [place] [address] Nov, [facility] [address] [id number] [place] [address] Nov, [facility] [address] [id number] [place] [address] Nov, [facility] [address] [id number] [place] [address] Nov, [facility] [address] [id number] [place] [address] Nov, [facility] [address] [id number] [place] [address] Nov, [facility] [address] [id number] [place] [address] Oct, [facility] [address] [id number] [place] [address] Oct, [facility] [address] [facility] [place] 2] [id number] [place] [address] Oct, [facility] [address] [id number] [place] [address] Oct, [facility] [address] [id number] [place] [address] Sep, [facility] [address] [id number] [place] [address] Sep, [facility] [address] [facility] [place] 2] [id number] [place] [address] Sep, [facility] [address] [id number] [place] [address] Sep, [facility] [address] [id number] [place] [address] Sep, [facility] [address] [id number] [place] [address] Sep, [facility] [address] [id number] [place] [address] Sep, [facility] [address] [id number] [place] [address] Sep, [facility] [address] [id number] [place] [address] Sep, [facility] [address] [id number] [place] [address] Sep, [facility] [address] [id number] [place] [address] Aug, [facility] [address] [id number] [place] [address] Aug, [facility] [address] [id number] [place] [address] Aug, [facility] [address] [id number] [place] [address] Aug, [facility] [address] [id number] [place] [address] Aug, [facility] [address] [id number] [place] [address] Aug, [facility] [address] [id number] [place] [address] Jul, [facility] [address] [id number] [place] [address] Jul, [facility] [address] [id number] [place] [address] Jul, [facility] [address] [id number] [place] [address] Jul, [facility] [address] [id number] [place] [address] Jul, [facility] [address] [id number] [place] [address] Jul, [facility] [address] [id number] [place] [address] Jul, [facility] [address] [id number] [place] [address] Jul, [facility] [address] [id number] [place] [address] Jul, [facility] [address] [id number] [place] [address] Jul, [facility] [address] [id number] [place] [address] Jun, [facility] [address] [id number] [place] [address] Jun, [facility] [id number] [place] [address] Jun, [facility] [address] [id number] [place] [address] Jun, [facility] [address] [id number] [place] [address] May, [facility] [address] [facility] [place]] [id number] [facility] [place] [address] 18 May, 2013 [facility] [address] [facility] [place] [id number] [facility] [place] [address] 27 Apr, 2013 [facility] [address] [id number] [facility] [place] [address] 20 Apr, 2013 [facility] [address] [id number] [facility] [place] [address] 05 Apr, 2013 [facility] [address] [facility] [place]] [id number] [facility] [place] [address] Mar, [facility] [address] [id number] [place] [address] Mar, [facility] [address] [id number] [place] [address] Jan, [facility] [address] [id number] [place] [address] Jan, [facility] [address] [id number] [place] [address] Jan, [facility] [address] [id number] [place] [address] Jan, [facility] [address] [id number] [place] [address] 15 Jan, 2013 [facility] [address] [id number] [place] [address] 14 Jan, 2013 [facility] [address] [id number] [place] [address] Jan, [facility] [address] [id number] [place] [address] December, [facility] [address] [id number] [place] [address] December, [facility] [address] [id number] [place] [address] December, [facility] [address] [id number] [place] [address] Nov, [facility] [address] [id number] [place] [address] Nov, [facility] [address] [id number] [place] [address] Oct, [facility] [address] [id number] [place] [address] Oct, [facility] [address] [id number] [place] [address] Sep, [facility] [address] [id number] [place] [address] Sep, [facility] [address] [id number] [place] [address] Aug, [facility] [address] [id number] [place] [address] Aug, [facility] [address] [id number] [place] [address] Jul, [facility] [address] [id number] [place] [address] Jul, [facility] [address] [id number] [place] [address] Jul, [facility] [address] [id number] [place] [address] Jul, [facility] [address] [id number] [place] [address] Jul, [facility] [address] [id number] [place] [address] Jul, [facility] [address] [id number] [place] [address] Jul, [facility] [address] [id number] [place] [address] Jul, [facility] [address] [id number] [place] [address] Jun, [facility] [address] [id number] [place] [address] Jun, [facility] [address] [id number] [place] [address] Jun, [facility] [address] [id number] [place] [address] Jun, [facility] [id number] [place] [address] Jun, [facility] [address] [id number] [place] [address] Jun, [facility] [address] [id number] [place] [address] Jun, [facility] [address] [id number] [place] [address] Jun, [facility] [id number] [place] [address] Jun, [facility] [address] [id number] [place] [address] Jun, [facility] [address] [id number] [place] [address] May, [facility] [address] [id number] [place] [address] May, [facility] [id number] [place] [address] May, [facility] [address] [id number] [place] [address] Apr, [facility] [address] [id number] [place] [address] Apr, [facility] [address] [id number] [place] [address] 24 Mar, 2012 [facility] [address] [id number] [place] [address] Mar, [facility] [address] [id number] [place] [address] Jan, [facility] [address] [id number] [place] [address] Jan, [facility] [address] [id number] [place] [address] Jan, [facility] [address] [id number] [place] [address] Jan, [facility] [address] [id number] [place] [address] Jan, [facility] [address] [id number] [place] [address] December, [facility] [address] [id number] [place] [address] December, [facility] [address] [id number] [place] [address] Nov, [facility] [address] [id number] [place] [address] Nov, [facility] [address] [id number] [place] [address] Oct, [facility] [address] [id number] [place] [address] Oct, [facility] [address] [id number] [place] [address] Oct, [facility] [address] [id number] [place] [address] Oct, [facility] [address] [id number] [place] [address] Sep, [facility] [address] [id number] [place] [address] Sep, [facility] [address] [id number] [place] [address] Sep, [facility] [address] [id number] [place] [address] 15 Sep, 2011 [facility] [address] [id number] [place] [address] 15 Sep, 2011 [facility] [address] [id number] [place] [address] 15 Sep, 2011 [facility] [address] [id number] [place] [address] 15 Sep, 2011 [facility] [address] [id number] [place] [address] 15 Sep, 2011 [facility] [address] [id number] [place] [address] Sep, [facility] [address] [id number] [place] [address] Aug, [facility] [address] [id number] [place] [address] Aug, [facility] [id number] [place] [address] Jul, [facility] [id number] [place] [address] Jul, [facility] [address] [id number] [place] [address] Jul, [facility] [id number] [place] [address] Jul, [facility] [id number] [place] [address] Jul, [facility] [id number] [place] [address] Jun, [facility] [address] [id number] [place] [address] Jun, [facility] [id number] [place] [address] Jun, [facility] [address] [id number] [place] [address] Jun, [facility] [id number] [place] [address] Jun, [facility] [place] [address] [id number] [place] [address] May, [facility] [place] [address] [id number] [place] [address] Jul, [facility] [place] [address] [id number] [place] [address] Jul, [facility] [place] [id number] [place] [address] Jul, [facility] [place] [address] [id number] [place] [address] Jul, [facility] [place] [address] [id number] [place] [address] Jun, [facility] [place] [address] [id number] [place] [address] Jun, [facility] [place] [address] [id number] [place] [address] May, IMMUNIZATIONS No Known Immunizations SOCIAL HISTORY Never Assessed REASON FOR VISIT PLAN OF CARE VITAL SIGNS Height 72 in 2013-12-08 Weight 232.6 lbs 2013-12-08 Temperature 97.4 degrees Fahrenheit 2013-12-08 Heart Rate 88 bpm 2013-12-08 Respiratory Rate 20 2013-12-08 Blood pressure systolic 144 mmHg 2013-12-08 Blood pressure diastolic 86 mmHg 2013-12-08 MEDICATIONS Unknown Medications RESULTS No Results PROCEDURES [...]
--- OUTSIDE RECORDS SUMMARY | 2020-01-03 21:24 | XMS REPORT ---
Author Author Stevie QUIÑONEZ Organization [facility] Address [address] [place] [address] Care Team Providers Care Human Resources Supervisor Name Role Phone SUSAN QUIÑONEZ Unavailable PROBLEMS Type Condition ICD9-CM Code OBZ46-JG Code Onset Dates Condition S tatus SNOMED Code Problem Depressive disorder, not elsewhere classified F32. 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 Active 374877488 Problem Status post amputation of toe of right foot Z89.42 1 Active 923163049 Problem Peripheral vascular disease I73.9 Ac tive 081401720 Problem Chronic hepatitis C without hepatic coma B18.2 Active 136499074 Problem BMI 32.0-32.9,adult Z68.32 Active 505439083 Problem Venous insufficiency I87.2 Active 81998361 Problem Type 2 diabetes mellitus with other specified complication E11.69 Active [id number] Problem Long-term insulin use Z79.4 Active 675313320 Problem Osteomyelitis M86.9 Active 602695 00 Problem Acquired absence of right great toe Z89.411 Active 538518353 Problem 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 Active 632500183 Problem Coronary artery disease invo lving [place] coronary artery of [place] heart without angina pectoris I25.10 Active 1641 125484075 Problem Coronary artery disease invo lving [place] coronary artery of [place] heart without angina pectoris I25.10 Active 1641 [id number] ALLERGIES No Information ENCOUNTERS Encounter Location Date Diagnosis [facility] [address] [id number] [place] [address] Sep, [facility] [address] [id number] [place] [address] Jun, [facility] [address] [address] Jun, Type 2 diabetes mellitus with other spec ified complication E11.69 ; Interstitial pulmonary fibrosis J84.10 and Venous insufficiency I87.2 [facility] [id number] [place] [address] 11 May, 2019 Coronary artery disease involving [place] coronary artery of [place] heart without angina pectoris I25.10 ; Type 2 diabetes mellitus with other specified complication E11.69 and Long-term insulin use Z79.4 [place] [address] [address] 07 May, 2019 [place] [address] [address] May, [place] [address] [address] Apr, Type 2 diabetes mellitus with other spec ified complication E11.69 ; Coronary artery disease involving [place] coronary artery of [place] heart without angina pectoris I25.10 and Encounter for immunization Z23 [place] [address] [address] Apr, [place] [address] [address] Apr, [place] [address] [address] December, Chronic hepatitis C without hepatic coma B18.2 and Type 2 diabetes mellitus with other specified complication E11.69 [place] [address] [address] Nov, Abnormal PSA R97.20 [facility] [address] [address] Nov, [place] [address] [address] Nov, Encounter for Medicare annual wellness e xam Z00.00 ; Type 2 diabetes mellitus with other specified complication E11.69 ; Peripheral vascular disease I73.9 ; Encounter for immunization Z23 ; Liver transplant recipient Z94.4 ; Acquired absence of right great toe Z89.411 ; 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 and Routine adult health maintenance Z00.00 [place] [address] [address] Nov, Medicare annual wellness visit, initial Z00.00 ; Type 2 diabetes mellitus with other specified complication E11.69 ; Depressive disorder, not elsewhere classified F32.9 ; Peripheral vascular disease I73.9 ; Encounter for immunization Z23 ; Liver transplant recipient Z94.4 ; Status post amputation of toe of right foot Z89.421 and BMI 32.0-32.9,adult Z68.32 [place] [address] [address] 13 Oct, 2017 [place] [address] [address] Oct, [place] [address] [address] Oct, Type 2 diabetes mellitus with other spec ified complication E11.69 ; Chronic hepatitis C without hepatic coma B18.2 and Depressive disorder, not elsewhere classified F32.9 [place] [address] [address] Sep, [place] [address] [address] Sep, [place] [address] [address] Sep, [facility] [address] [id number] [place] [id number] Sep, Diabetes E11.9 [place] [address] [address] Sep, [facility] [address] [place] [id number] Sep Peripheral vascular disease I73.9 ; 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 ; Status post amputation of toe of right foot Z89.421 ; Type 2 diabetes mellitus with other specified complication E11.69 and Liver transplant recipient Z94.4 [facility] [address] [id number] [id number] 16 Sep, 2017 [facility] [address] [place] [place] [id number] 13 Sep Status post amputation of toe of right foot Z89.421 ; 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 ; Osteomyelitis M86.9 ; Diabetes E11.9 ; Liver transplant recipient Z94.4 and History of drug abuse Z87.898 [facility] [address] [id number] [id number] 06 Sep, 2017 [place] [address] [address] Jan, [place] [address] [address] Jan, [place] [address] [address] December, Diabetes E11.9 ; Back pain M54.9 and Ane sapna due to other cause D64.89 [place] [address] [address] December, Osteomyelitis, unspecified M86.9 [place] [address] [address] December, [place] [address] [address] December, Diabetes E11.9 [place] [address] [address] Jan, Seborrheic keratoses L82.1 and Abscess o f neck L02.11 [place] [address] [address] Jan, Sebaceous cyst L72.3 [facility] [address] [facility] [id number] [address] Jan, Abscess, neck L02.11 [facility] [address] [address] Oct, Diabetes E11.9 [facility] [address] [address] Oct, Back pain M54.9 [facility] [address] [address] Sep, Back pain M54.9 [facility] [address] [address] Sep, Back pain M54.9 [facility] [address] [address] Aug, Back pain M54.9 [facility] [address] [address] Aug, Diabetes E11.9 and Liver transplant reci cara Z94.4 [facility] [address] [address] Aug, Back pain M54.9 [facility] [address] [address] Jul, [facility] [address] [address] Jul, [facility] [address] [address] Jul, [facility] [address] [address] Jun, Depressive disorder, not elsewhere class ified F32.9 [facility] [address] [address] Jun, Diabetes E11.9 ; Depressive disorder, no t elsewhere classified F32.9 and Back pain M54.9 [facility] [address] [address] Jun, [facility] [address] [address] Jun, [facility] [id number] [place] [address] May, [facility] [id number] [place] [address] May, [facility] [id number] [place] [address] Apr, [facility] [id number] [place] [address] Apr, [facility] [id number] [place] [address] Mar, [facility] [id number] [place] [address] Mar, [facility] [address] [id number] [place] [id number] Mar, Dental examination V72.2 [facility] [id number] [place] [address] Jan, [facility] [id number] [place] [address] Jan, [facility] [id number] [place] [address] Jan, [facility] [id number] [place] [address] Jan, [facility] [id number] [place] [address] Jan, [facility] [id number] [place] [address] December, [facility] [id number] [place] [address] December, [facility] [id number] [place] [address] December, Diabetes mellitus type 2, uncontrolled 2 50.02 and Osteomyelitis of ankle or foot 730.27 [facility] [id number] [place] [address] December, [facility] [place] [facility] [address] [facility] [id number] [place] [address] Nov, [facility] [place] [facility] [address] [id number] [place] [address] Nov, [facility] [place] [facility] [address] [id number] [place] [address] Oct, [facility] [place] [facility] [address] [id number] [place] [address] Oct, [facility] [place] [facility] [address] [id number] [place] [address] Oct, [facility] [place] [facility] [address] [id number] [place] [address] Oct, [facility] [place] [facility] [address] [id number] [place] [address] Sep, [facility] [place] [facility] [address] [id number] [place] [address] Sep, [facility] [place] [facility] [address] [id number] [place] [address] Sep, [facility] [place] [facility] [address] [id number] [place] [address] Sep, [facility] [place] [facility] [address] [id number] [place] [address] Aug, [facility] [place] [facility] [address] [id number] [place] [address] Aug, [facility] [place] [facility] [address] [id number] [place] [address] Aug, [facility] [place] [facility] [address] [id number] [place] [address] Aug, [facility] [place] [facility] [address] [id number] [place] [address] Aug, [facility] [place] [facility] [address] [id number] [place] [address] Aug, [facility] [place] [facility] [address] [id number] [place] [address] Jul, [facility] [place] [facility] [address] [id number] [place] [address] Jul, [facility] [place] [facility] [address] [id number] [place] [address] Jul, [facility] [place] [facility] [address] [id number] [place] [address] Jul, [facility] [place] [facility] [address] [id number] [place] [address] Jul, [facility] [place] [facility] [address] [id number] [place] [address] Jul, [facility] [place] [facility] [address] [id number] [place] [address] Jun, [facility] [place] [facility] [id number] [place] [address] Jun, [facility] [place] [facility] [address] [id number] [place] [address] Jun, [facility] [place] [facility] [address] [id number] [place] [address] Jun, [facility] [place] [facility] [address] [id number] [place] [address] May, [facility] [place] [facility] [address] [id number] [place] [address] May, [facility] [place] [facility] [address] [id number] [place] [address] May, [facility] [place] [facility] [address] [id number] [place] [address] May, [facility] [place] [facility] [address] [id number] [place] [address] May, [facility] [place] [facility] [address] [id number] [place] [address] May, [facility] [place] [facility] [address] [id number] [place] [address] Apr, [facility] [place] [facility] [address] [id number] [facility] [address] Apr, [facility] [place] [facility] [address] [facility] [id number] [facility] [address] Apr, [facility] [place] [facility] [address] [id number] [facility] [address] Apr, [facility] [place] [facility] [address] [facility] [id number] [place] [address] Mar, [facility] [place] [facility] [address] [facility] [id number] [facility] [address] Mar, [facility] [place] [facility] [address] [id number] [place] [address] Mar, [facility] [place] [facility] [address] [id number] [place] [address] Mar, [facility] [place] [facility] [address] [id number] [place] [address] Jan, [facility] [place] [facility] [address] [id number] [facility] [address] Jan, [facility] [place] [facility] [address] [id number] [place] [address] Jan, [facility] [place] [facility] [address] [id number] [place] [address] Jan, [facility] [place] [facility] [address] [id number] [place] [address] Jan, [facility] [place] [facility] [address] [id number] [place] [address] Jan, [facility] [place] [facility] [address] [id number] [place] [address] Jan, [facility] [place] [facility] [address] [id number] [place] [address] Jan, [facility] [place] [facility] [address] [id number] [place] [address] Jan, [facility] [place] [facility] [address] [facility] [id number] [place] [address] Jan, [facility] [place] [facility] [address] [id number] [place] [address] Jan, [facility] [place] [facility] [address] [facility] [id number] [place] [address] Jan, [facility] [place] [facility] [address] [id number] [place] [address] December, [facility] [place] [facility] [address] [facility] [id number] [facility] [address] December, [facility] [place] [facility] [address] [facility] [id number] [place] [address] December, [facility] [place] [facility] [address] [id number] [place] [address] December, [facility] [place] [facility] [address] [id number] [place] [address] December, [facility] [place] [facility] [address] [id number] [place] [address] December, [facility] [place] [facility] [address] [id number] [place] [address] Nov, [facility] [place] [facility] [address] [id number] [place] [address] Nov, [facility] [place] [facility] [address] [id number] [place] [address] Nov, [facility] [place] [facility] [address] [id number] [place] [address] Nov, [facility] [place] [facility] [address] [facility] [id number] [place] [address] Nov, [facility] [place] [facility] [address] [id number] [place] [address] Nov, [facility] [place] [facility] [address] [id number] [place] [address] Oct, [facility] [place] [facility] [address] [id number] [place] [address] Oct, [facility] [place] [facility] [address] [id number] [place] [address] Oct, [facility] [place] [facility] [address] [id number] [place] [address] Oct, [facility] [place] [facility] [address] [id number] [place] [address] Sep, [facility] [place] [facility] [address] [id number] [place] [address] Sep, [facility] [place] [facility] [address] [facility] [id number] [place] [address] Sep, [facility] [place] [facility] [address] [id number] [place] [address] Sep, [facility] [place] [facility] [address] [id number] [place] [address] Sep, [facility] [place] [facility] [address] [id number] [place] [address] Sep, [facility] [place] [facility] [address] [id number] [place] [address] Sep, [facility] [place] [facility] [address] [id number] [place] [address] Sep, [facility] [place] [facility] [address] [id number] [place] [address] Sep, [facility] [place] [facility] [address] [id number] [place] [address] Sep, [facility] [place] [facility] [address] [id number] [place] [address] Aug, [facility] [place] [facility] [address] [id number] [place] [address] Aug, [facility] [place] [facility] [address] [id number] [place] [address] Aug, [facility] [place] [facility] [address] [id number] [place] [address] Aug, [facility] [place] [facility] [address] [id number] [place] [address] Aug, [facility] [place] [facility] [address] [id number] [place] [address] Aug, [facility] [place] [facility] [address] [id number] [place] [address] Jul, [facility] [place] [facility] [address] [id number] [place] [address] Jul, [facility] [place] [facility] [address] [id number] [place] [address] Jul, [facility] [place] [facility] [address] [id number] [place] [address] Jul, [facility] [place] [facility] [address] [id number] [place] [address] Jul, [facility] [place] [facility] [address] [id number] [place] [address] Jul, [facility] [place] [facility] [address] [id number] [place] [address] Jul, [facility] [place] [facility] [address] [id number] [place] [address] Jul, [facility] [place] [facility] [address] [id number] [place] [address] Jul, [facility] [place] [facility] [address] [id number] [place] [address] Jul, [facility] [place] [facility] [address] [id number] [place] [address] Jun, [facility] [place] [facility] [address] [id number] [place] [address] Jun, [facility] [place] [facility] [id number] [place] [address] Jun, [facility] [place] [facility] [address] [id number] [place] [address] Jun, [facility] [place] [facility] [address] [id number] [place] [address] May, [facility] [place] [facility] [address] [id number] [place] [address] 18 May, 2013 [facility] [place] [facility] [address] [id number] [place] [address] 27 Apr, 2013 [facility] [place] [facility] [address] [id number] [place] [address] 20 Apr, 2013 [facility] [place] [facility] [address] [id number] [place] [address] 05 Apr, 2013 [facility] [place] [facility] [address] [id number] [place] [address] Mar, [facility] [place] [facility] [address] [id number] [place] [address] Mar, [facility] [place] [facility] [address] [id number] [place] [address] Jan, [facility] [place] [facility] [address] [id number] [place] [address] Jan, [facility] [place] [facility] [address] [id number] [place] [address] Jan, [facility] [place] [facility] [address] [id number] [place] [address] Jan, [facility] [place] [facility] [address] [id number] [place] [address] 15 Jan, 2013 [facility] [place] [facility] [address] [id number] [place] [address] 14 Jan, 2013 [facility] [place] [facility] [address] [id number] [place] [address] Jan, [facility] [place] [facility] [address] [id number] [place] [address] December, [facility] [place] [facility] [address] [id number] [place] [address] December, [facility] [place] [facility] [address] [id number] [place] [address] December, [facility] [place] [facility] [address] [id number] [place] [address] Nov, [facility] [place] [facility] [address] [id number] [place] [address] Nov, [facility] [place] [facility] [address] [id number] [place] [address] Oct, [facility] [place] [facility] [address] [id number] [place] [address] Oct, [facility] [address] [id number] [place] [address] Sep, [facility] [address] [id number] [place] [address] Sep, [facility] [address] [id number] [place] [address] Aug, [facility] [address] [id number] [place] [address] Aug, [facility] [address] [id number] [place] [address] Jul, [facility] [address] [id number] [place] [address] Jul, [facility] [address] [id number] [place] [address] Jul, [facility] [address] [id number] [place] [address] Jul, [facility] [address] [id number] [place] [address] Jul, [facility] [address] [id number] [place] [address] Jul, [facility] [address] [id number] [place] [address] Jul, [facility] [address] [id number] [place] [address] Jul, [facility] [address] [id number] [place] [address] Jun, [facility] [address] [id number] [place] [address] Jun, [facility] [address] [id number] [place] [address] Jun, [facility] [address] [id number] [place] [address] Jun, [facility] [address] [id number] [place] [address] Jun, [facility] [address] [id number] [place] [address] Jun, [facility] [address] [id number] [place] [address] Jun, [facility] [address] [id number] [place] [address] Jun, [facility] [id number] [place] [address] Jun, [facility] [address] [id number] [place] [address] Jun, [facility] [address] [id number] [place] [address] May, [facility] [address] [id number] [place] [address] May, [facility] [address] [id number] [place] [address] May, [facility] [address] [id number] [place] [address] Apr, [facility] [address] [id number] [place] [address] Apr, [facility] [id number] [place] [address] Mar, [facility] [address] [id number] [place] [address] Mar, [facility] [address] [id number] [place] [address] Jan, [facility] [address] [id number] [place] [address] Jan, [facility] [address] [id number] [place] [address] Jan, [facility] [address] [id number] [place] [address] Jan, [facility] [address] [id number] [place] [address] Jan, [facility] [address] [id number] [place] [address] December, [facility] [facility] [address] [id number] [place] [address] December, [facility] [address] [id number] [place] [address] Nov, [facility] [address] [id number] [place] [address] Nov, [facility] [address] [id number] [place] [address] Oct, [facility] [address] [id number] [place] [address] Oct, [facility] [address] [id number] [place] [address] Oct, [facility] [address] [id number] [place] [address] Oct, [facility] [address] [id number] [place] [address] Sep, [facility] [address] [id number] [place] [address] Sep, [facility] [address] [id number] [place] [address] Sep, [facility] [address] [id number] [place] [address] Sep, [facility] [address] [id number] [place] [address] 15 Sep, 2011 [facility] [address] [id number] [place] [address] 15 Sep, 2011 [facility] [address] [id number] [place] [address] 15 Sep, 2011 [facility] [id number] [place] [address] 15 Sep, 2011 [facility] [id number] [place] [address] 10 Sep, 2011 [facility] [address] [id number] [place] [address] Aug, [facility] [id number] [place] [address] Aug, [facility] [id number] [place] [address] 30 Jul, 2011 [facility] [id number] [place] [address] Jul, [facility] [id number] [place] [address] Jul, [facility] [id number] [place] [address] Jul, [facility] [id number] [place] [address] Jul, [facility] [id number] [place] [address] Jun, [facility] [address] [id number] [place] [address] Jun, [facility] [id number] [place] [address] Jun, [facility] [address] [id number] [place] [address] Jun, [facility] [id number] [place] [address] Jun, [facility] [address] [id number] [place] [address] May, [facility] [id number] [place] [address] Jul, [facility] [address] [id number] [place] [address] Jul, [facility] [address] [address] Jul, [facility] [address] [id number] [place] [address] Jul, [facility] [id number] [place] [address] Jun, [facility] [address] [id number] [place] [address] Jun, [facility] [address] [id number] [place] [address] May, IMMUNIZATIONS No Known Immunizations SOCIAL HISTORY [...]
--- OUTSIDE RECORDS SUMMARY | 2020-01-03 21:25 | XMS REPORT ---
Author Author Stevie QUIÑONEZ Organization [facility] Address [address] [place] [address] Care Team Providers Care Yarn Twister Name Role Phone SUSAN QUIÑONEZ Unavailable PROBLEMS Type Condition ICD9-CM Code DYW84-CB Code Onset Dates Condition S tatus SNOMED Code Problem Depressive disorder, not elsewhere classified F32. 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 Active 237137009 Problem Status post amputation of toe of right foot Z89.42 1 Active 329722698 Problem Peripheral vascular disease I73.9 Ac tive 773916957 Problem Chronic hepatitis C without hepatic coma B18.2 Active 296252150 Problem BMI 32.0-32.9,adult Z68.32 Active 612672235 Problem Venous insufficiency I87.2 Active 41330216 Problem Type 2 diabetes mellitus with other specified complication E11.69 Active [id number] Problem Long-term insulin use Z79.4 Active 228491452 Problem Osteomyelitis M86.9 Active 102026 00 Problem Acquired absence of right great toe Z89.411 Active 818908026 Problem 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 Active 504027742 Problem Coronary artery disease invo lving [place] coronary artery of [place] heart without angina pectoris I25.10 Active 1641 693678345 Problem Coronary artery disease invo lving [place] coronary artery of [place] heart without angina pectoris I25.10 Active 1641 [id number] ALLERGIES No Information ENCOUNTERS Encounter Location Date Diagnosis [facility] [id number] [place] [address] Sep, [facility] [id number] [place] [address] Jun, [facility] [address] [address] Jun, Type 2 diabetes mellitus with other spec ified complication E11.69 ; Interstitial pulmonary fibrosis J84.10 and Venous insufficiency I87.2 [facility] [id number] [place] [address] 11 May, 2019 Coronary artery disease involving [place] coronary artery of [place] heart without angina pectoris I25.10 ; Type 2 diabetes mellitus with other specified complication E11.69 and Long-term insulin use Z79.4 [place] [address] [address] 07 May, 2019 [place] [address] [address] May, [place] [address] [address] Apr, Type 2 diabetes mellitus with other spec ified complication E11.69 ; Coronary artery disease involving [place] coronary artery of [place] heart without angina pectoris I25.10 and Encounter for immunization Z23 [place] [address] [address] Apr, [place] [address] [address] Apr, [place] [address] [address] December, Chronic hepatitis C without hepatic coma B18.2 and Type 2 diabetes mellitus with other specified complication E11.69 [place] [address] [address] Nov, Abnormal PSA R97.20 [facility] [address] [address] Nov, [place] [address] [address] Nov, Encounter for Medicare annual wellness e xam Z00.00 ; Type 2 diabetes mellitus with other specified complication E11.69 ; Peripheral vascular disease I73.9 ; Encounter for immunization Z23 ; Liver transplant recipient Z94.4 ; Acquired absence of right great toe Z89.411 ; 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 and Routine adult health maintenance Z00.00 [place] [address] [address] Nov, Medicare annual wellness visit, initial Z00.00 ; Type 2 diabetes mellitus with other specified complication E11.69 ; Depressive disorder, not elsewhere classified F32.9 ; Peripheral vascular disease I73.9 ; Encounter for immunization Z23 ; Liver transplant recipient Z94.4 ; Status post amputation of toe of right foot Z89.421 and BMI 32.0-32.9,adult Z68.32 [place] [address] [address] 13 Oct, 2017 [place] [address] [address] Oct, [place] [address] [address] Oct, Type 2 diabetes mellitus with other spec ified complication E11.69 ; Chronic hepatitis C without hepatic coma B18.2 and Depressive disorder, not elsewhere classified F32.9 [place] [address] [address] Sep, [place] [address] [address] Sep, [place] [address] [address] Sep, [facility] [address] [id number] [place] [id number] Sep, Diabetes E11.9 [place] [address] [address] Sep, [employer] [address] [place] [id number] Sep Peripheral vascular disease I73.9 ; 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 ; Status post amputation of toe of right foot Z89.421 ; Type 2 diabetes mellitus with other specified complication E11.69 and Liver transplant recipient Z94.4 [facility] [address] [id number] [address] 16 Sep, 2017 [employer] [address] [place] [id number] 13 Sep Status post amputation of toe of right foot Z89.421 ; 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 ; Osteomyelitis M86.9 ; Diabetes E11.9 ; Liver transplant recipient Z94.4 and History of drug abuse Z87.898 [facility] [address] [id number] [id number] 06 Sep, 2017 [place] [address] [address] Jan, [place] [address] [address] Jan, [place] [address] [address] December, Diabetes E11.9 ; Back pain M54.9 and Ane sapna due to other cause D64.89 [place] [address] [address] December, Osteomyelitis, unspecified M86.9 [place] [address] [address] December, [place] [address] [address] December, Diabetes E11.9 [place] [address] [address] Jan, Seborrheic keratoses L82.1 and Abscess o f neck L02.11 [place] [address] [address] Jan, Sebaceous cyst L72.3 [facility] [address] [id number] [place] [address] Jan, Abscess, neck L02.11 [facility] [address] [address] Oct, Diabetes E11.9 [facility] [address] [address] Oct, Back pain M54.9 [facility] [address] [address] Sep, Back pain M54.9 [facility] [address] [address] Sep, Back pain M54.9 [facility] [address] [address] Aug, Back pain M54.9 [facility] [address] [address] Aug, Diabetes E11.9 and Liver transplant reci cara Z94.4 [facility] [address] [address] Aug, Back pain M54.9 [facility] [address] [address] Jul, [facility] [address] [address] Jul, [facility] [address] [address] Jul, [facility] [address] [address] Jun, Depressive disorder, not elsewhere class ified F32.9 [facility] [address] [address] Jun, Diabetes E11.9 ; Depressive disorder, no t elsewhere classified F32.9 and Back pain M54.9 [facility] [address] [address] Jun, [facility] [address] [address] Jun, [facility] [id number] [place] [address] May, [facility] [id number] [place] [address] May, [facility] [id number] [place] [address] Apr, [facility] [id number] [place] [address] Apr, [facility] [id number] [place] [address] Mar, [facility] [id number] [place] [address] Mar, [facility] [id number] [place] [id number] Mar, Dental examination V72.2 [facility] [id number] [place] [address] Jan, [facility] [id number] [place] [address] Jan, [facility] [id number] [place] [address] Jan, [facility] [id number] [place] [address] Jan, [facility] [id number] [place] [address] Jan, [facility] [id number] [place] [address] December, [facility] [id number] [place] [address] December, [facility] [id number] [place] [address] December, Diabetes mellitus type 2, uncontrolled 2 50.02 and Osteomyelitis of ankle or foot 730.27 [facility] [id number] [place] [address] December, [facility] [place] [facility] [address] [id number] [place] [address] Nov, [facility] [place] [facility] [id number] [place] [address] Nov, [facility] [place] [facility] [id number] [place] [address] Oct, [facility] [place] [facility] [id number] [place] [address] Oct, [facility] [place] [facility] [id number] [place] [address] Oct, [facility] [place] [facility] [id number] [place] [address] Oct, [facility] [place] [facility] [id number] [place] [address] Sep, [facility] [place] [facility] [id number] [place] [address] Sep, [facility] [place] [facility] [id number] [place] [address] Sep, [facility] [place] [facility] [id number] [place] [address] Sep, [facility] [place] [facility] [id number] [place] [address] Aug, [facility] [place] [facility] [id number] [place] [address] Aug, [facility] [place] [facility] [id number] [place] [address] Aug, [facility] [place] [facility] [id number] [place] [address] Aug, [facility] [place] [facility] [id number] [place] [address] Aug, [facility] [place] [facility] [id number] [place] [address] Aug, [facility] [place] [facility] [id number] [place] [address] Jul, [facility] [place] [facility] [id number] [place] [address] Jul, [facility] [place] [facility] [id number] [place] [address] Jul, [facility] [place] [facility] [id number] [place] [address] Jul, [facility] [place] [facility] [id number] [place] [address] Jul, [facility] [place] [facility] [id number] [place] [address] Jul, [facility] [place] [facility] [id number] [place] [address] Jun, [facility] [place] [facility] [id number] [place] [address] Jun, [facility] [place] [facility] [id number] [place] [address] Jun, [facility] [place] [facility] [id number] [place] [address] Jun, [facility] [place] [facility] [id number] [place] [address] May, [facility] [place] [facility] [id number] [place] [address] May, [facility] [place] [facility] [id number] [place] [address] May, [facility] [place] [facility] [id number] [place] [address] May, [facility] [place] [facility] [id number] [place] [address] May, [facility] [place] [facility] [id number] [place] [address] May, [facility] [place] [facility] [id number] [place] [address] Apr, [facility] [place] [facility] [address] [id number] [facility] [place] [address] Apr, [facility] [place] [facility] [address] [id number] [facility] [address] Apr, [facility] [place] [facility] [id number] [facility] [place] [address] Apr, [facility] [place] [facility] [address] [id number] [place] [address] Mar, [facility] [place] [facility] [address] [id number] [facility] [place] [address] Mar, [facility] [place] [facility] [id number] [place] [address] Mar, [facility] [place] [facility] [id number] [place] [address] Mar, [facility] [place] [facility] [id number] [place] [address] Jan, [facility] [place] [facility] [id number] [facility] [address] Jan, [facility] [place] [facility] [id number] [place] [address] Jan, [facility] [place] [facility] [id number] [place] [address] Jan, [facility] [place] [facility] [id number] [place] [address] Jan, [facility] [place] [facility] [id number] [place] [address] Jan, [facility] [place] [facility] [id number] [place] [address] Jan, [facility] [place] [facility] [id number] [place] [address] Jan, [facility] [place] [facility] [id number] [place] [address] Jan, [facility] [place] [facility] [address] [id number] [facility] [place] [address] Jan, [facility] [place] [facility] [address] [id number] [place] [address] Jan, [facility] [place] [facility] [address] [id number] [place] [address] Jan, [facility] [place] [facility] [id number] [place] [address] December, [facility] [place] [facility] [address] [id number] [facility] [place] [address] December, [facility] [place] [facility] [address] [id number] [place] [address] December, [facility] [place] [facility] [id number] [place] [address] December, [facility] [place] [facility] [id number] [place] [address] December, [facility] [place] [facility] [id number] [place] [address] December, [facility] [place] [facility] [id number] [place] [address] Nov, [facility] [place] [facility] [id number] [place] [address] Nov, [facility] [place] [facility] [id number] [place] [address] Nov, [facility] [place] [facility] [id number] [place] [address] Nov, [facility] [place] [facility] [address] [id number] [place] [address] Nov, [facility] [place] [facility] [id number] [place] [address] Nov, [facility] [place] [facility] [id number] [place] [address] Oct, [facility] [place] [facility] [id number] [place] [address] Oct, [facility] [place] [facility] [id number] [place] [address] Oct, [facility] [place] [facility] [id number] [place] [address] Oct, [facility] [place] [facility] [id number] [place] [address] Sep, [facility] [place] [facility] [id number] [place] [address] Sep, [facility] [place] [facility] [address] [id number] [place] [address] Sep, [facility] [place] [facility] [id number] [place] [address] Sep, [facility] [place] [facility] [id number] [place] [address] Sep, [facility] [place] [facility] [id number] [place] [address] Sep, [facility] [place] [facility] [id number] [place] [address] Sep, [facility] [place] [facility] [id number] [place] [address] Sep, [facility] [place] [facility] [id number] [place] [address] Sep, [facility] [place] [facility] [id number] [place] [address] Sep, [facility] [place] [facility] [id number] [place] [address] Aug, [facility] [place] [facility] [id number] [place] [address] Aug, [facility] [place] [facility] [id number] [place] [address] Aug, [facility] [place] [facility] [id number] [place] [address] Aug, [facility] [place] [facility] [id number] [place] [address] Aug, [facility] [place] [facility] [id number] [place] [address] Aug, [facility] [place] [facility] [id number] [place] [address] Jul, [facility] [place] [facility] [id number] [place] [address] Jul, [facility] [place] [facility] [id number] [place] [address] Jul, [facility] [place] [facility] [id number] [place] [address] Jul, [facility] [place] [facility] [id number] [place] [address] Jul, [facility] [place] [facility] [id number] [place] [address] Jul, [facility] [place] [facility] [id number] [place] [address] Jul, [facility] [place] [facility] [id number] [place] [address] Jul, [facility] [place] [facility] [id number] [place] [address] Jul, [facility] [place] [facility] [id number] [place] [address] Jul, [facility] [place] [facility] [id number] [place] [address] Jun, [facility] [place] [facility] [id number] [place] [address] Jun, [facility] [place] [facility] [id number] [place] [address] Jun, [facility] [place] [facility] [id number] [place] [address] Jun, [facility] [place] [facility] [id number] [place] [address] May, [facility] [place] [facility] [id number] [place] [address] 18 May, 2013 [facility] [place] [facility] [id number] [place] [address] 27 Apr, 2013 [facility] [place] [facility] [id number] [place] [address] 20 Apr, 2013 [facility] [place] [facility] [id number] [place] [address] 05 Apr, 2013 [facility] [place] [facility] [id number] [place] [address] Mar, [facility] [place] [facility] [id number] [place] [address] Mar, [facility] [place] [facility] [id number] [place] [address] Jan, [facility] [place] [facility] [id number] [place] [address] Jan, [facility] [place] [facility] [id number] [place] [address] Jan, [facility] [place] [facility] [id number] [place] [address] Jan, [facility] [place] [facility] [id number] [place] [address] 15 Jan, 2013 [facility] [place] [facility] [id number] [place] [address] 14 Jan, 2013 [facility] [place] [facility] [id number] [place] [address] Jan, [facility] [place] [facility] [id number] [place] [address] December, [facility] [place] [facility] [id number] [place] [address] December, [facility] [place] [facility] [id number] [place] [address] December, [facility] [place] [facility] [id number] [place] [address] Nov, [facility] [place] [facility] [id number] [place] [address] Nov, [facility] [place] [facility] [id number] [place] [address] Oct, [facility] [place] [facility] [id number] [place] [address] Oct, [facility] [place] [facility] [id number] [place] [address] Sep, [facility] [place] [facility] [id number] [place] [address] Sep, [facility] [place] [facility] [id number] [place] [address] Aug, [facility] [place] [facility] [id number] [place] [address] Aug, [facility] [place] [facility] [id number] [place] [address] Jul, [facility] [id number] [place] [address] Jul, [facility] [id number] [place] [address] Jul, [facility] [id number] [place] [address] Jul, [facility] [id number] [place] [address] Jul, [facility] [id number] [place] [address] Jul, [facility] [id number] [place] [address] Jul, [facility] [id number] [place] [address] Jul, [facility] [id number] [place] [address] Jun, [facility] [id number] [place] [address] Jun, [facility] [id number] [place] [address] Jun, [facility] [id number] [place] [address] Jun, [facility] [id number] [place] [address] Jun, [facility] [id number] [place] [address] Jun, [facility] [id number] [place] [address] Jun, [facility] [id number] [place] [address] Jun, [facility] [id number] [place] [address] Jun, [facility] [id number] [place] [address] Jun, [facility] [id number] [place] [address] May, [facility] [id number] [place] [address] May, [facility] [id number] [place] [address] May, [facility] [id number] [place] [address] Apr, [facility] [id number] [place] [address] Apr, [facility] [id number] [place] [address] Mar, [facility] [id number] [place] [address] Mar, [facility] [id number] [place] [address] Jan, [facility] [id number] [place] [address] Jan, [facility] [id number] [place] [address] Jan, [facility] [id number] [place] [address] Jan, [facility] [id number] [place] [address] Jan, [facility] [id number] [place] [address] December, [facility] [id number] [place] [address] December, [facility] [id number] [place] [address] Nov, [facility] [id number] [place] [address] Nov, [facility] [id number] [place] [address] Oct, [facility] [id number] [place] [address] Oct, [facility] [id number] [place] [address] Oct, [facility] [id number] [place] [address] Oct, [facility] [id number] [place] [address] Sep, [facility] [facility] [id number] [place] [address] Sep, [facility] [id number] [place] [address] Sep, [facility] [id number] [place] [address] Sep, [facility] [id number] [place] [address] 15 Sep, 2011 [facility] [id number] [place] [address] 15 Sep, 2011 [facility] [id number] [place] [address] 15 Sep, 2011 [facility] [id number] [place] [address] 15 Sep, 2011 [facility] [id number] [place] [address] 10 Sep, 2011 [facility] [id number] [place] [address] Aug, [facility] [id number] [place] [address] Aug, [facility] [id number] [place] [address] 30 Jul, 2011 [facility] [id number] [place] [address] Jul, [facility] [id number] [place] [address] Jul, [facility] [id number] [place] [address] Jul, [facility] [id number] [place] [address] Jul, [facility] [id number] [place] [address] Jun, [facility] [id number] [place] [address] Jun, [facility] [id number] [place] [address] Jun, [facility] [id number] [place] [address] Jun, [facility] [id number] [place] [address] Jun, [facility] [id number] [place] [address] May, [facility] [id number] [place] [address] Jul, [facility] [id number] [place] [address] Jul, [facility] [address] [address] Jul, [facility] [id number] [place] [address] Jul, [facility] [id number] [place] [address] Jun, [facility] [id number] [place] [address] Jun, [facility] [id number] [place] [address] May, IMMUNIZATIONS No Known Immunizations SOCIAL HISTORY [...]
--- OUTSIDE RECORDS SUMMARY | 2020-01-03 21:25 | XMS REPORT ---
Author Author Stevie QUIÑONEZ Organization [facility] Address [address] [place] [address] Care Team Providers Care [employer]obile Le[employer] Supervisor Name Role Phone SUSAN QUIÑONEZ Unavailable PROBLEMS Type Condition ICD9-CM Code QME16-JX Code Onset Dates Condition S tatus SNOMED Code Problem Depressive disorder, not elsewhere classified F32. 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 Active 794184793 Problem Status post amputation of toe of right foot Z89.42 1 Active 048220589 Problem Type 2 diabetes mellitus with other specified complication E11.69 Active [id number] Problem Chronic hepatitis C without hepatic coma B18.2 Active 641192717 Problem BMI 32.0-32.9,adult Z68.32 Active 511208004 Problem Venous insufficiency I87.2 Active 27631945 Problem Peripheral vascular disease I73.9 Ac tive 584852506 Problem Long-term insulin use Z79.4 Active 289060374 Problem Osteomyelitis M86.9 Active 197868 00 Problem Acquired absence of right great toe Z89.411 Active 538740791 Problem 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 Active 503023075 Problem 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2 [facility] [id number] [place] [address] 11 May, 2019 Coronary artery disease involving mcgrath coronary artery of mcgrath heart without angina pectoris I25.10 ; Type 2 diabetes mellitus with other specified complication E11.69 and Long-term insulin use Z79.4 [place] [address] [address] 07 May, 2019 [place] [address] [address] May, [place] [address] [address] Apr, Type 2 diabetes mellitus with other spec ified complication E11.69 ; Coronary artery disease involving mcgrath coronary artery of mcgrath heart without angina pectoris I25.10 and Encounter for immunization Z23 [place] [address] [address] Apr, [place] [address] [address] Apr, [place] [address] [address] December, Chronic hepatitis C without hepatic coma B18.2 and Type 2 diabetes mellitus with other specified complication E11.69 [place] [address] [address] Nov, [place] [address] [address] Nov, Abnormal PSA R97.20 [place] [address] [address] Nov, Encounter for Medicare annual wellness e xam Z00.00 ; Type 2 diabetes mellitus with other specified complication E11.69 ; Peripheral vascular disease I73.9 ; Encounter for immunization Z23 ; Liver transplant recipient Z94.4 ; Acquired absence of right great toe Z89.411 ; 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 and Routine adult health maintenance Z00.00 [place] [address] [address] Nov, Medicare annual wellness visit, initial Z00.00 ; Type 2 diabetes mellitus with other specified complication E11.69 ; Depressive disorder, not elsewhere classified F32.9 ; Peripheral vascular disease I73.9 ; Encounter for immunization Z23 ; Liver transplant recipient Z94.4 ; Status post amputation of toe of right foot Z89.421 and BMI 32.0-32.9,adult Z68.32 [place] [address] [address] 13 Oct, 2017 [place] [address] [address] Oct, [place] [address] [address] Oct, Type 2 diabetes mellitus with other spec ified complication E11.69 ; Chronic hepatitis C without hepatic coma B18.2 and Depressive disorder, not elsewhere classified F32.9 [place] [address] [address] Sep, [place] [address] [address] Sep, [place] [address] [address] Sep, [facility] [id number] [place] [id number] Sep, Diabetes E11.9 [place] [address] [address] Sep, [email or web address] [address] [place] [id number] Sep Peripheral vascular disease I73.9 ; 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 ; Status post amputation of toe of right foot Z89.421 ; Type 2 diabetes mellitus with other specified complication E11.69 and Liver transplant recipient Z94.4 [facility] [address] [id number] [id number] 16 Sep, 2017 [email or web address] [address] [place] [id number] 13 Sep Status post amputation of toe of right foot Z89.421 ; 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 ; Osteomyelitis M86.9 ; Diabetes E11.9 ; Liver transplant recipient Z94.4 and History of drug abuse Z87.898 [facility] [address] [id number] [id number] 06 Sep, 2017 [place] [address] [address] Jan, [place] [address] [address] Jan, [place] [address] [address] December, Diabetes E11.9 ; Back pain M54.9 and Ane sapna due to other cause D64.89 [place] [address] [address] December, Osteomyelitis, unspecified M86.9 [place] [address] [address] December, [place] [address] [address] December, Diabetes E11.9 [place] [address] [address] Jan, Seborrheic keratoses L82.1 and Abscess o f neck L02.11 [place] [address] [address] Jan, Sebaceous cyst L72.3 [facility] [address] [facility] [id number] [place] [address] Jan, Abscess, neck L02.11 [facility] [address] [address] Oct, Diabetes E11.9 [facility] [address] [address] Oct, Back pain M54.9 [facility] [address] [address] Sep, Back pain M54.9 [facility] [address] [address] Sep, Back pain M54.9 [facility] [address] [address] Aug, Back pain M54.9 [facility] [address] [address] Aug, Diabetes E11.9 and Liver transplant reci cara Z94.4 [facility] [address] [address] Aug, Back pain M54.9 [facility] [address] [address] Jul, [facility] [address] [address] Jul, [facility] [address] [address] Jul, [facility] [address] [address] Jun, Depressive disorder, not elsewhere class ified F32.9 [facility] [address] [address] Jun, Diabetes E11.9 ; Depressive disorder, no t elsewhere classified F32.9 and Back pain M54.9 [facility] [address] [address] Jun, [facility] [address] [address] Jun, [facility] [id number] [place] [address] May, [facility] [id number] [place] [address] May, [facility] [id number] [place] [address] Apr, [facility] [id number] [place] [address] Apr, [facility] [id number] [place] [address] Mar, [facility] [id number] [place] [address] Mar, [facility] [address] [id number] [place] [id number] Mar, Dental examination V72.2 [facility] [id number] [place] [address] Jan, [facility] [id number] [place] [address] Jan, [facility] [id number] [place] [address] Jan, [facility] [id number] [place] [address] Jan, [facility] [id number] [place] [address] Jan, [facility] [id number] [place] [address] December, [facility] [id number] [place] [address] December, [facility] [id number] [place] [address] December, Diabetes mellitus type 2, uncontrolled 2 50.02 and Osteomyelitis of ankle or foot 730.27 [facility] [id number] [place] [address] December, [facility] [place] [facility] [address] [facility] [id number] [place] [address] Nov, [facility] [place] [facility] [address] [id number] [place] [address] Nov, [facility] [place] [facility] [address] [id number] [place] [address] Oct, [facility] [place] [facility] [address] [id number] [place] [address] Oct, [facility] [place] [facility] [address] [id number] [place] [address] Oct, [facility] [place] [facility] [address] [id number] [place] [address] Oct, [facility] [place] [facility] [address] [id number] [place] [address] Sep, [facility] [place] [facility] [address] [id number] [place] [address] Sep, [facility] [place] [facility] [address] [id number] [place] [address] Sep, [facility] [place] [facility] [address] [id number] [place] [address] Sep, [facility] [place] [facility] [address] [id number] [place] [address] Aug, [facility] [place] [facility] [address] [id number] [place] [address] Aug, [facility] [place] [facility] [address] [id number] [place] [address] Aug, [facility] [place] [facility] [address] [id number] [place] [address] Aug, [facility] [place] [facility] [address] [id number] [place] [address] Aug, [facility] [place] [facility] [address] [id number] [place] [address] Aug, [facility] [place] [facility] [address] [id number] [place] [address] Jul, [facility] [place] [facility] [address] [id number] [place] [address] Jul, [facility] [place] [facility] [address] [id number] [place] [address] Jul, [facility] [place] [facility] [address] [id number] [place] [address] Jul, [facility] [place] [facility] [address] [id number] [place] [address] Jul, [facility] [place] [facility] [address] [id number] [place] [address] Jul, [facility] [place] [facility] [address] [id number] [place] [address] Jun, [facility] [place] [facility] [id number] [place] [address] Jun, [facility] [place] [facility] [address] [id number] [place] [address] Jun, [facility] [place] [facility] [address] [id number] [place] [address] Jun, [facility] [place] [facility] [address] [id number] [place] [address] May, [facility] [place] [facility] [address] [id number] [place] [address] May, [facility] [place] [facility] [address] [id number] [place] [address] May, [facility] [place] [facility] [address] [id number] [place] [address] May, [facility] [place] [facility] [address] [id number] [place] [address] May, [facility] [place] [facility] [address] [id number] [place] [address] May, [facility] [place] [facility] [address] [id number] [place] [address] Apr, [facility] [place] [facility] [address] [id number] [facility] [place] [address] Apr, [facility] [place] [facility] [address] [facility] [id number] [facility] [place] [address] Apr, [facility] [place] [facility] [address] [id number] [facility] [place] [address] Apr, [facility] [place] [facility] [address] [facility] [id number] [place] [address] Mar, [facility] [place] [facility] [address] [facility] [id number] [facility] [place] [address] Mar, [facility] [place] [facility] [address] [id number] [place] [address] Mar, [facility] [place] [facility] [address] [id number] [place] [address] Mar, [facility] [place] [facility] [address] [id number] [place] [address] Jan, [facility] [place] [facility] [address] [id number] [facility] [place] [address] Jan, [facility] [place] [facility] [address] [id number] [place] [address] Jan, [facility] [place] [facility] [address] [id number] [place] [address] Jan, [facility] [place] [facility] [address] [id number] [place] [address] Jan, [facility] [place] [facility] [address] [id number] [place] [address] Jan, [facility] [place] [facility] [address] [id number] [place] [address] Jan, [facility] [place] [facility] [address] [id number] [place] [address] Jan, [facility] [place] [facility] [address] [id number] [place] [address] Jan, [facility] [place] [facility] [address] [facility] [id number] [facility] [place] [address] Jan, [facility] [place] [facility] [address] [id number] [place] [address] Jan, [facility] [place] [facility] [address] [facility] [id number] [place] [address] Jan, [facility] [place] [facility] [address] [id number] [place] [address] December, [facility] [place] [facility] [address] [facility] [id number] [facility] [place] [address] December, [facility] [place] [facility] [address] [facility] [id number] [place] [address] December, [facility] [place] [facility] [address] [id number] [place] [address] December, [facility] [place] [facility] [address] [id number] [place] [address] December, [facility] [place] [facility] [address] [id number] [place] [address] December, [facility] [place] [facility] [address] [id number] [place] [address] Nov, [facility] [place] [facility] [address] [id number] [place] [address] Nov, [facility] [place] [facility] [address] [id number] [place] [address] Nov, [facility] [place] [facility] [address] [id number] [place] [address] Nov, [facility] [place] [facility] [address] [facility] [id number] [place] [address] Nov, [facility] [place] [facility] [address] [id number] [place] [address] Nov, [facility] [place] [facility] [address] [id number] [place] [address] Oct, [facility] [place] [facility] [address] [id number] [place] [address] Oct, [facility] [place] [facility] [address] [id number] [place] [address] Oct, [facility] [place] [facility] [address] [id number] [place] [address] Oct, [facility] [place] [facility] [address] [id number] [place] [address] Sep, [facility] [place] [facility] [address] [id number] [place] [address] Sep, [facility] [place] [facility] [address] [facility] [id number] [place] [address] Sep, [facility] [place] [facility] [address] [id number] [place] [address] Sep, [facility] [place] [facility] [address] [id number] [place] [address] Sep, [facility] [place] [facility] [address] [id number] [place] [address] Sep, [facility] [place] [facility] [address] [id number] [place] [address] Sep, [facility] [place] [facility] [address] [id number] [place] [address] Sep, [facility] [place] [facility] [address] [id number] [place] [address] Sep, [facility] [place] [facility] [address] [id number] [place] [address] Sep, [facility] [place] [facility] [address] [id number] [place] [address] Aug, [facility] [place] [facility] [address] [id number] [place] [address] Aug, [facility] [place] [facility] [address] [id number] [place] [address] Aug, [facility] [place] [facility] [address] [id number] [place] [address] Aug, [facility] [place] [facility] [address] [id number] [place] [address] Aug, [facility] [place] [facility] [address] [id number] [place] [address] Aug, [facility] [place] [facility] [address] [id number] [place] [address] Jul, [facility] [place] [facility] [address] [id number] [place] [address] Jul, [facility] [place] [facility] [address] [id number] [place] [address] Jul, [facility] [place] [facility] [address] [id number] [place] [address] Jul, [facility] [place] [facility] [address] [id number] [place] [address] Jul, [facility] [place] [facility] [address] [id number] [place] [address] Jul, [facility] [place] [facility] [address] [id number] [place] [address] Jul, [facility] [place] [facility] [address] [id number] [place] [address] Jul, [facility] [place] [facility] [address] [id number] [place] [address] Jul, [facility] [place] [facility] [address] [id number] [place] [address] Jul, [facility] [place] [facility] [address] [id number] [place] [address] Jun, [facility] [place] [facility] [address] [id number] [place] [address] Jun, [facility] [place] [facility] [id number] [place] [address] Jun, [facility] [place] [facility] [address] [id number] [place] [address] Jun, [facility] [place] [facility] [address] [id number] [place] [address] May, [facility] [place] [facility] [address] [id number] [place] [address] 18 May, 2013 [facility] [place] [facility] [address] [id number] [place] [address] 27 Apr, 2013 [facility] [place] [facility] [address] [id number] [place] [address] 20 Apr, 2013 [facility] [place] [facility] [address] [id number] [place] [address] 05 Apr, 2013 [facility] [place] [facility] [address] [id number] [place] [address] Mar, [facility] [place] [facility] [address] [id number] [place] [address] Mar, [facility] [place] [facility] [address] [id number] [place] [address] Jan, [facility] [place] [facility] [address] [id number] [place] [address] Jan, [facility] [place] [facility] [address] [id number] [place] [address] Jan, [facility] [place] [facility] [address] [id number] [place] [address] Jan, [facility] [place] [facility] [address] [id number] [place] [address] 15 Jan, 2013 [facility] [place] [facility] [address] [id number] [place] [address] 14 Jan, 2013 [facility] [place] [facility] [address] [id number] [place] [address] Jan, [facility] [place] [facility] [address] [id number] [place] [address] December, [facility] [place] [facility] [address] [id number] [place] [address] December, [facility] [place] [facility] [address] [id number] [place] [address] December, [facility] [place] [facility] [address] [id number] [place] [address] Nov, [facility] [place] [facility] [address] [id number] [place] [address] Nov, [facility] [place] [facility] [address] [id number] [place] [address] Oct, [facility] [place] [facility] [address] [id number] [place] [address] Oct, [facility] [place] [facility] [address] [id number] [place] [address] Sep, [facility] [place] [facility] [address] [id number] [place] [address] Sep, [facility] [place] [facility] [address] [id number] [place] [address] Aug, [facility] [place] [facility] [address] [id number] [place] [address] Aug, [facility] [place] [facility] [address] [id number] [place] [address] Jul, [facility] [place] [facility] [address] [id number] [place] [address] Jul, [facility] [place] [facility] [address] [id number] [place] [address] Jul, [facility] [place] [facility] [address] [id number] [place] [address] Jul, [facility] [place] [facility] [address] [id number] [place] [address] Jul, [facility] [place] [facility] [address] [id number] [place] [address] Jul, [facility] [place] [facility] [address] [id number] [place] [address] Jul, [facility] [place] [facility] [address] [id number] [place] [address] Jul, [facility] [place] [facility] [address] [id number] [place] [address] Jun, [facility] [place] [facility] [address] [id number] [place] [address] Jun, [facility] [place] [facility] [address] [id number] [place] [address] Jun, [facility] [place] [facility] [address] [id number] [place] [address] Jun, [facility] [place] [facility] [address] [id number] [place] [address] Jun, [facility] [place] [facility] [address] [id number] [place] [address] Jun, [facility] [place] [facility] [address] [id number] [place] [address] Jun, [facility] [place] [facility] [address] [id number] [place] [address] Jun, [facility] [place] [facility] [id number] [place] [address] Jun, [facility] [address] [id number] [place] [address] Jun, [facility] [address] [id number] [place] [address] May, [facility] [id number] [place] [address] May, [facility] [id number] [place] [address] May, [facility] [id number] [place] [address] Apr, [facility] [id number] [place] [address] Apr, [facility] [id number] [place] [address] Mar, [facility] [address] [id number] [place] [address] Mar, [facility] [id number] [place] [address] Jan, [facility] [address] [id number] [place] [address] Jan, [facility] [address] [id number] [place] [address] Jan, [facility] [address] [id number] [place] [address] Jan, [facility] [address] [id number] [place] [address] Jan, [facility] [address] [id number] [place] [address] December, [facility] [address] [id number] [place] [address] December, [facility] [address] [id number] [place] [address] Nov, [facility] [id number] [place] [address] Nov, [facility] [address] [id number] [place] [address] Oct, [facility] [address] [id number] [place] [address] Oct, [facility] [address] [id number] [place] [address] Oct, [facility] [id number] [place] [address] Oct, [facility] [address] [facility] [id number] [place] [address] Sep, [facility] [address] [id number] [place] [address] Sep, [facility] [address] [id number] [place] [address] Sep, [facility] [address] [facility] [id number] [place] [address] Sep, [facility] [address] [id number] [place] [address] 15 Sep, 2011 [facility] [address] [id number] [place] [address] 15 Sep, 2011 [facility] [address] [id number] [place] [address] 15 Sep, 2011 [facility] [id number] [place] [address] 15 Sep, 2011 [facility] [id number] [place] [address] 10 Sep, 2011 [facility] [address] [id number] [place] [address] Aug, [facility] [id number] [place] [address] Aug, [facility] [id number] [place] [address] 30 Jul, 2011 [facility] [id number] [place] [address] Jul, [facility] [id number] [place] [address] Jul, [facility] [id number] [place] [address] Jul, [facility] [id number] [place] [address] Jul, [facility] [id number] [place] [address] Jun, [facility] [address] [id number] [place] [address] Jun, [facility] [id number] [place] [address] Jun, [facility] [id number] [place] [address] Jun, [facility] [id number] [place] [address] Jun, [facility] [address] [id number] [place] [address] May, [facility] [address] [id number] [place] [address] Jul, [facility] [address] [id number] [place] [address] Jul, [facility] [address] [address] Jul, [facility] [address] [id number] [place] [address] Jul, [facility] [id number] [place] [address] Jun, [facility] [address] [id number] [place] [address] Jun, [facility] [address] [id number] [place] [address] May, IMMUNIZATIONS No Known Immunizations SOCIAL HISTORY [...]
--- OUTSIDE RECORDS SUMMARY | 2020-01-03 21:25 | XMS REPORT ---
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 Active 281957707 Problem Status post amputation of toe of right foot Z89.42 1 Active 019021279 Problem Peripheral vascular disease I73.9 Ac tive 887529384 Problem Chronic hepatitis C without hepatic coma B18.2 Active 173332578 Problem BMI 32.0-32.9,adult Z68.32 Active 021934930 Problem Venous insufficiency I87.2 Active 76472308 Problem Type 2 diabetes mellitus with other specified complication E11.69 Active [id number] Problem Long-term insulin use Z79.4 Active 852092556 Problem Osteomyelitis M86.9 Active 197093 00 Problem Acquired absence of right great toe Z89.411 Active 350441286 Problem 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 [place] [address] Sep, [facility] [address] [id number] [place] [address] Jun, [facility] [address] [address] Jun, Type 2 diabetes mellitus with other spec ified complication E11.69 ; Interstitial pulmonary fibrosis J84.10 and Venous insufficiency I87.2 [facility] [id number] [place] [address] 11 May, 2019 Coronary artery disease involving [place] coronary artery of [place] heart without angina pectoris I25.10 ; Type 2 diabetes mellitus with other specified complication E11.69 and Long-term insulin use Z79.4 [place] [address] [address] 07 May, 2019 [place] [address] [address] May, [place] [address] [address] Apr, Type 2 diabetes mellitus with other spec ified complication E11.69 ; Coronary artery disease involving [place] coronary artery of [place] heart without angina pectoris I25.10 and Encounter for immunization Z23 [place] [address] [address] Apr, [place] [address] [address] Apr, [place] [address] [address] December, Chronic hepatitis C without hepatic coma B18.2 and Type 2 diabetes mellitus with other specified complication E11.69 [place] [address] [address] Nov, [place] [address] [address] Nov, Abnormal PSA R97.20 [place] [address] [address] Nov, Encounter for Medicare annual wellness e xam Z00.00 ; Type 2 diabetes mellitus with other specified complication E11.69 ; Peripheral vascular disease I73.9 ; Encounter for immunization Z23 ; Liver transplant recipient Z94.4 ; Acquired absence of right great toe Z89.411 ; 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 and Routine adult health maintenance Z00.00 [place] [address] [address] Nov, Medicare annual wellness visit, initial Z00.00 ; Type 2 diabetes mellitus with other specified complication E11.69 ; Depressive disorder, not elsewhere classified F32.9 ; Peripheral vascular disease I73.9 ; Encounter for immunization Z23 ; Liver transplant recipient Z94.4 ; Status post amputation of toe of right foot Z89.421 and BMI 32.0-32.9,adult Z68.32 [place] [address] [address] 13 Oct, 2017 [place] [address] [address] Oct, [place] [address] [address] Oct, Type 2 diabetes mellitus with other spec ified complication E11.69 ; Chronic hepatitis C without hepatic coma B18.2 and Depressive disorder, not elsewhere classified F32.9 [place] [address] [address] Sep, [place] [address] [address] Sep, [place] [address] [address] Sep, [facility] [id number] [place] [id number] Sep, Diabetes E11.9 [place] [address] [address] Sep, [facility] [address] [place] [id number] Sep Peripheral vascular disease I73.9 ; 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 ; Status post amputation of toe of right foot Z89.421 ; Type 2 diabetes mellitus with other specified complication E11.69 and Liver transplant recipient Z94.4 [facility] [address] [id number] [id number] 16 Sep, 2017 [facility] [address] [place] [id number] 13 Sep Status post amputation of toe of right foot Z89.421 ; 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 ; Osteomyelitis M86.9 ; Diabetes E11.9 ; Liver transplant recipient Z94.4 and History of drug abuse Z87.898 [facility] [address] [id number] [id number] 06 Sep, 2017 [place] [address] [address] Jan, [place] [address] [address] Jan, [place] [address] [address] December, Diabetes E11.9 ; Back pain M54.9 and Ane sapna due to other cause D64.89 [place] [address] [address] December, Osteomyelitis, unspecified M86.9 [place] [address] [address] December, [place] [address] [address] December, Diabetes E11.9 [place] [address] [address] Jan, Seborrheic keratoses L82.1 and Abscess o f neck L02.11 [place] [address] [address] Jan, Sebaceous cyst L72.3 [facility] [address] [facility] [place] [id number] [place] [address] Jan, Abscess, neck L02.11 [facility] [address] [address] Oct, Diabetes E11.9 [facility] [address] [address] Oct, Back pain M54.9 [facility] [address] [address] Sep, Back pain M54.9 [facility] [address] [address] Sep, Back pain M54.9 [facility] [address] [address] Aug, Back pain M54.9 [facility] [address] [address] Aug, Diabetes E11.9 and Liver transplant reci cara Z94.4 [facility] [address] [address] Aug, Back pain M54.9 [facility] [address] [address] Jul, [facility] [address] [address] Jul, [facility] [address] [address] Jul, [facility] [address] [address] Jun, Depressive disorder, not elsewhere class ified F32.9 [facility] [address] [address] Jun, Diabetes E11.9 ; Depressive disorder, no t elsewhere classified F32.9 and Back pain M54.9 [facility] [address] [address] Jun, [facility] [address] [address] Jun, [facility] [id number] [place] [address] May, [facility] [id number] [place] [address] May, [facility] [id number] [place] [address] Apr, [facility] [id number] [place] [address] Apr, [facility] [id number] [place] [address] Mar, [facility] [id number] [place] [address] Mar, [facility] [address] [id number] [place] [id number] Mar, Dental examination V72.2 [facility] [id number] [place] [address] Jan, [facility] [id number] [place] [address] Jan, [facility] [id number] [place] [address] Jan, [facility] [id number] [place] [address] Jan, [facility] [id number] [place] [address] Jan, [facility] [id number] [place] [address] December, [facility] [id number] [place] [address] December, [facility] [id number] [place] [address] December, Diabetes mellitus type 2, uncontrolled 2 50.02 and Osteomyelitis of ankle or foot 730.27 [facility] [id number] [place] [address] December, [facility] [place] [facility] [address] [facility] [place] [id number] [place] [address] Nov, [facility] [place] [facility] [address] [id number] [place] [address] Nov, [facility] [place] [facility] [address] [id number] [place] [address] Oct, [facility] [place] [facility] [address] [id number] [place] [address] Oct, [facility] [place] [facility] [address] [id number] [place] [address] Oct, [facility] [place] [facility] [address] [id number] [place] [address] Oct, [facility] [place] [facility] [address] [id number] [place] [address] Sep, [facility] [place] [facility] [address] [id number] [place] [address] Sep, [facility] [place] [facility] [address] [id number] [place] [address] Sep, [facility] [place] [facility] [address] [id number] [place] [address] Sep, [facility] [place] [facility] [address] [id number] [place] [address] Aug, [facility] [place] [facility] [address] [id number] [place] [address] Aug, [facility] [place] [facility] [address] [id number] [place] [address] Aug, [facility] [place] [facility] [address] [id number] [place] [address] Aug, [facility] [place] [facility] [address] [id number] [place] [address] Aug, [facility] [place] [facility] [address] [id number] [place] [address] Aug, [facility] [place] [facility] [address] [id number] [place] [address] Jul, [facility] [place] [facility] [address] [id number] [place] [address] Jul, [facility] [place] [facility] [address] [id number] [place] [address] Jul, [facility] [place] [facility] [address] [id number] [place] [address] Jul, [facility] [place] [facility] [address] [id number] [place] [address] Jul, [facility] [place] [facility] [address] [id number] [place] [address] Jul, [facility] [place] [facility] [address] [id number] [place] [address] Jun, [facility] [place] [facility] [id number] [place] [address] Jun, [facility] [place] [facility] [address] [id number] [place] [address] Jun, [facility] [place] [facility] [address] [id number] [place] [address] Jun, [facility] [place] [facility] [address] [id number] [place] [address] May, [facility] [place] [facility] [address] [id number] [place] [address] May, [facility] [place] [facility] [address] [id number] [place] [address] May, [facility] [place] [facility] [address] [id number] [place] [address] May, [facility] [place] [facility] [address] [id number] [place] [address] May, [facility] [place] [facility] [address] [id number] [place] [address] May, [facility] [place] [facility] [address] [id number] [place] [address] Apr, [facility] [place] [facility] [address] [id number] [facility] [place] [address] Apr, [facility] [place] [facility] [address] [facility] [place] [id number] [facility] [place] [address] Apr, [facility] [place] [facility] [address] [id number] [facility] [address] Apr, [facility] [place] [facility] [address] [facility] [place] [id number] [place] [address] Mar, [facility] [place] [facility] [address] [facility] [place] [id number] [facility] [place] [address] Mar, [facility] [place] [facility] [address] [id number] [place] [address] Mar, [facility] [place] [facility] [address] [id number] [place] [address] Mar, [facility] [place] [facility] [address] [id number] [place] [address] Jan, [facility] [place] [facility] [address] [id number] [facility] [address] Jan, [facility] [place] [facility] [address] [id number] [place] [address] Jan, [facility] [place] [facility] [address] [id number] [place] [address] Jan, [facility] [place] [facility] [address] [id number] [place] [address] Jan, [facility] [place] [facility] [address] [id number] [place] [address] Jan, [facility] [place] [facility] [address] [id number] [place] [address] Jan, [facility] [place] [facility] [address] [id number] [place] [address] Jan, [facility] [place] [facility] [address] [id number] [place] [address] Jan, [facility] [place] [facility] [address] [facility] [place] [id number] [facility] [place] [address] Jan, [facility] [place] [facility] [address] [id number] [place] [address] Jan, [facility] [place] [facility] [address] [facility] [place] [id number] [place] [address] Jan, [facility] [place] [facility] [address] [id number] [place] [address] December, [facility] [place] [facility] [address] [facility] [place] [id number] [facility] [place] [address] December, [facility] [place] [facility] [address] [facility] [place] [id number] [place] [address] December, [facility] [place] [facility] [address] [id number] [place] [address] December, [facility] [place] [facility] [address] [id number] [place] [address] December, [facility] [place] [facility] [address] [id number] [place] [address] December, [facility] [place] [facility] [address] [id number] [place] [address] Nov, [facility] [place] [facility] [address] [id number] [place] [address] Nov, [facility] [place] [facility] [address] [id number] [place] [address] Nov, [facility] [place] [facility] [address] [id number] [place] [address] Nov, [facility] [place] [facility] [address] [facility] [place] [id number] [place] [address] Nov, [facility] [place] [facility] [address] [id number] [place] [address] Nov, [facility] [place] [facility] [address] [id number] [place] [address] Oct, [facility] [place] [facility] [address] [id number] [place] [address] Oct, [facility] [place] [facility] [address] [id number] [place] [address] Oct, [facility] [place] [facility] [address] [id number] [place] [address] Oct, [facility] [place] [facility] [address] [id number] [place] [address] Sep, [facility] [place] [facility] [address] [id number] [place] [address] Sep, [facility] [place] [facility] [address] [facility] [id number] [place] [address] Sep, [facility] [place] [facility] [address] [id number] [place] [address] Sep, [facility] [place] [facility] [address] [id number] [place] [address] Sep, [facility] [place] [facility] [address] [id number] [place] [address] Sep, [facility] [place] [facility] [address] [id number] [place] [address] Sep, [facility] [place] [facility] [address] [id number] [place] [address] Sep, [facility] [place] [facility] [address] [id number] [place] [address] Sep, [facility] [place] [facility] [address] [id number] [place] [address] Sep, [facility] [place] [facility] [address] [id number] [place] [address] Aug, [facility] [place] [facility] [address] [id number] [place] [address] Aug, [facility] [place] [facility] [address] [id number] [place] [address] Aug, [facility] [place] [facility] [address] [id number] [place] [address] Aug, [facility] [place] [facility] [address] [id number] [place] [address] Aug, [facility] [place] [facility] [address] [id number] [place] [address] Aug, [facility] [place] [facility] [address] [id number] [place] [address] Jul, [facility] [place] [facility] [address] [id number] [place] [address] Jul, [facility] [place] [facility] [address] [id number] [place] [address] Jul, [facility] [place] [facility] [address] [id number] [place] [address] Jul, [facility] [place] [facility] [address] [id number] [place] [address] Jul, [facility] [place] [facility] [address] [id number] [place] [address] Jul, [facility] [place] [facility] [address] [id number] [place] [address] Jul, [facility] [place] [facility] [address] [id number] [place] [address] Jul, [facility] [place] [facility] [address] [id number] [place] [address] Jul, [facility] [place] [facility] [address] [id number] [place] [address] Jul, [facility] [place] [facility] [address] [id number] [place] [address] Jun, [facility] [place] [facility] [address] [id number] [place] [address] Jun, [facility] [place] [facility] [id number] [place] [address] Jun, [facility] [place] [facility] [address] [id number] [place] [address] Jun, [facility] [place] [facility] [address] [id number] [place] [address] May, [facility] [place] [facility] [address] [id number] [place] [address] 18 May, 2013 [facility] [address] [id number] [place] [address] 27 Apr, 2013 [facility] [address] [id number] [place] [address] 20 Apr, 2013 [facility] [address] [id number] [place] [address] 05 Apr, 2013 [facility] [address] [id number] [place] [address] Mar, [facility] [address] [id number] [place] [address] Mar, [facility] [address] [id number] [place] [address] Jan, [facility] [address] [id number] [place] [address] Jan, [facility] [address] [id number] [place] [address] Jan, [facility] [address] [id number] [place] [address] Jan, [facility] [address] [id number] [place] [address] 15 Jan, 2013 [facility] [address] [id number] [place] [address] 14 Jan, 2013 [facility] [address] [id number] [place] [address] Jan, [facility] [address] [id number] [place] [address] December, [facility] [address] [id number] [place] [address] December, [facility] [address] [id number] [place] [address] December, [facility] [address] [id number] [place] [address] Nov, [facility] [address] [id number] [place] [address] Nov, [facility] [address] [id number] [place] [address] Oct, [facility] [address] [id number] [place] [address] Oct, [facility] [address] [id number] [place] [address] Sep, [facility] [address] [id number] [place] [address] Sep, [facility] [address] [id number] [place] [address] Aug, [facility] [address] [id number] [place] [address] Aug, [facility] [address] [id number] [place] [address] Jul, [facility] [address] [id number] [place] [address] Jul, [facility] [address] [id number] [place] [address] Jul, [facility] [address] [id number] [place] [address] Jul, [facility] [address] [id number] [place] [address] Jul, [facility] [address] [id number] [place] [address] Jul, [facility] [address] [id number] [place] [address] Jul, [facility] [address] [id number] [place] [address] Jul, [facility] [address] [id number] [place] [address] Jun, [facility] [address] [id number] [place] [address] Jun, [facility] [address] [id number] [place] [address] Jun, [facility] [address] [id number] [place] [address] Jun, [facility] [address] [id number] [place] [address] Jun, [facility] [address] [id number] [place] [address] Jun, [facility] [address] [id number] [place] [address] Jun, [facility] [address] [id number] [place] [address] Jun, [facility] [id number] [place] [address] Jun, [facility] [address] [id number] [place] [address] Jun, [facility] [address] [id number] [place] [address] May, [facility] [address] [id number] [place] [address] May, [facility] [address] [id number] [place] [address] May, [facility] [address] [id number] [place] [address] Apr, [facility] [address] [id number] [place] [address] Apr, [facility] [id number] [place] [address] Mar, [facility] [address] [id number] [place] [address] Mar, [facility] [address] [id number] [place] [address] Jan, [facility] [address] [id number] [place] [address] Jan, [facility] [address] [id number] [place] [address] Jan, [facility] [address] [id number] [place] [address] Jan, [facility] [address] [id number] [place] [address] Jan, [facility] [address] [id number] [place] [address] December, [facility] [address] [id number] [place] [address] December, [facility] [address] [id number] [place] [address] Nov, [facility] [address] [id number] [place] [address] Nov, [facility] [address] [id number] [place] [address] Oct, [facility] [address] [id number] [place] [address] Oct, [facility] [address] [id number] [place] [address] Oct, [facility] [address] [id number] [place] [address] Oct, [facility] [address] [id number] [place] [address] Sep, [facility] [address] [id number] [place] [address] Sep, [facility] [address] [id number] [place] [address] Sep, [facility] [address] [id number] [place] [address] Sep, [facility] [address] [id number] [place] [address] 15 Sep, 2011 [facility] [address] [id number] [place] [address] 15 Sep, 2011 [facility] [address] [id number] [place] [address] 15 Sep, 2011 [facility] [id number] [place] [address] 15 Sep, 2011 [facility] [id number] [place] [address] 10 Sep, 2011 [facility] [address] [id number] [place] [address] Aug, [facility] [id number] [place] [address] Aug, [facility] [id number] [place] [address] 30 Jul, 2011 [facility] [id number] [place] [address] Jul, [facility] [id number] [place] [address] Jul, [facility] [id number] [place] [address] Jul, [facility] [id number] [place] [address] Jul, [facility] [id number] [place] [address] Jun, [facility] [address] [id number] [place] [address] Jun, [facility] [id number] [place] [address] Jun, [facility] [address] [id number] [place] [address] Jun, [facility] [id number] [place] [address] Jun, [facility] [address] [id number] [place] [address] May, [facility] [id number] [place] [address] Jul, [facility] [address] [id number] [place] [address] Jul, [facility] [address] [address] Jul, [facility] [address] [id number] [place] [address] Jul, [facility] [id number] [place] [address] Jun, [facility] [address] [id number] [place] [address] Jun, [facility] [address] [id number] [place] [address] May, IMMUNIZATIONS No Known Immunizations SOCIAL HISTORY [...]
--- OUTSIDE RECORDS SUMMARY | 2020-01-03 21:27 | XMS REPORT ---
Author Author Stevie QUIÑONEZ Organization [facility] Address [address] [place] [address] Care Team Providers Care Social Media Designer Name Role Phone SUSAN QUIÑONEZ Unavailable PROBLEMS Type Condition ICD9-CM Code BGM57-CH Code Onset Dates Condition S tatus SNOMED Code Problem Depressive disorder, not elsewhere classified F32. 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 Active 283579678 Problem Status post amputation of toe of right foot Z89.42 1 Active 630814964 Problem Peripheral vascular disease I73.9 Ac tive 506344550 Problem Chronic hepatitis C without hepatic coma B18.2 Active 331270520 Problem BMI 32.0-32.9,adult Z68.32 Active 235658775 Problem Venous insufficiency I87.2 Active 38824468 Problem Type 2 diabetes mellitus with other specified complication E11.69 Active 34234573697514 Problem Long-term insulin use Z79.4 Active 959432415 Problem Osteomyelitis M86.9 Active 956404 00 Problem Acquired absence of right great toe Z89.411 Active 641224607 Problem 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 [id number] [address] [place] [id number] 05 Jun, 2019 [facility] [address] [facility] [id number] [address] [place] [address] Jun, Type 2 diabetes mellitus wit h other specified complication E11.69 ; Interstitial pulmonary fibrosis J84.10 and Venous insufficiency I87.2 [facility] [address] [id number] [address] [place] [address] 11 May, 2019 Coronary artery disease invo lving [place] coronary artery of [place] heart without angina pectoris I25.10 ; Type 2 diabetes mellitus with other specified complication E11.69 and Long-term insulin use Z79.4 [facility] [address] [id number] [address] [place] [id number] 07 May, 2019 [facility] [address] [id number] [address] [place] [id number] 02 May, 2019 [facility] [address] [facility] [id number] [address] [place] [id number] 27 Apr, 2019 Type 2 diabetes mellitus wit h other specified complication E11.69 ; Coronary artery disease involving [place] coronary artery of [place] heart without angina pectoris I25.10 and Encounter for immunization Z23 [facility] [address] [id number] [address] [place] [phone] Apr, [facility] [address] [facility] [id number] [address] [place] [address] Apr, [facility] [address] [facility] [id number] [address] [place] [id number] December, Chronic hepatitis C without hepatic coma B18.2 and Type 2 diabetes mellitus with other specified complication E11.69 [facility] [address] [facility] [id number] [address] [place] [address] Nov, Abnormal PSA R97.20 [facility] [address] [id number] [address] [place] [address] Nov, [facility] [address] 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 [id number] [address] [place] [id number] 13 Oct, 2017 [facility] [address] [place] [id number] [address] [place] [id number] Oct, [facility] [address] [place] [id number] [address] [place] [address] Oct, Type 2 diabetes mellitus wit h other specified complication E11.69 ; Chronic hepatitis C without hepatic coma B18.2 and Depressive disorder, not elsewhere classified F32.9 [facility] [address] [facility] [id number] [address] [place] [id number] Sep, [facility] [address] [place] [id number] [address] [place] [id number] Sep, [facility] [address] [place] [id number] [address] [place] [address] Sep, [facility] [id number] [place] [id number] Sep, Diabetes E11.9 [facility] [address] 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 ; Status post amputation of toe of right foot Z89.421 ; Type 2 diabetes mellitus with other specified complication E11.69 and Liver transplant recipient Z94.4 [facility] [id number] [id number] 16 Sep, 2017 [employer] [address] [place] [id number] 13 Sep Status post amputation of toe of right foot Z89.421 ; 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 ; Osteomyelitis M86.9 ; Diabetes E11.9 ; Liver transplant recipient Z94.4 and History of drug abuse Z87.898 [facility] [address] [id number] [id number] 06 Sep, 2017 [place] [address] [place] [id number] [address] [place] [address] Jan, [place] [id number] [place] [address] Jan, [place] [address] [place] [id number] [address] [place] [address] December, Diabetes E11.9 ; Back pain M 54.9 and Anemia due to other cause D64.89 [place] [address] [place] [id number] [address] [place] [address] December, Osteomyelitis, unspecified M 86.9 [place] [address] [place] [id number] [address] [place] [address] December, [place] [address] [place] [id number] [address] [place] [address] December, Diabetes E11.9 [place] [address] [facility] [id number] [address] [place] [address] 18 Feb, 2016 Seborrheic keratoses L82.1 a nd Abscess of neck L02.11 [place] [address] [facility] [id number] [address] [place] [id number] 15 Feb, 2016 Sebaceous cyst L72.3 [facility] [address] [id number] [address] [place] [id number] 13 Feb, 2016 Abscess, neck L02.11 [facility] [address] [id number] [address] [place] [id number] 18 Oct, 2015 Diabetes E11.9 [facility] [address] [facility] [id number] [address] [place] [id number] Oct, Back pain M54.9 [facility] [address] [id number] [address] [place] [address] Sep, Back pain M54.9 [facility] [address] [id number] [address] [place] [address] Sep, Back pain M54.9 [facility] [address] [facility] [id number] [address] [place] [address] Aug, Back pain M54.9 [facility] [address] [facility] [id number] [address] [place] [address] Aug, Diabetes E11.9 and Liver tra nsplant recipient Z94.4 [facility] [address] [facility] [id number] [address] [place] [address] Aug, Back pain M54.9 [facility] [address] [facility] [id number] [address] [place] [id number] 31 Jul, 2015 [facility] [address] [facility] [id number] [address] [place] [address] Jul, [facility] [address] [facility] [id number] [address] [place] [address] Jul, [facility] [address] [facility] [id number] [address] [place] [id number] Jun, Depressive disorder, not els ewhere classified F32.9 [facility] [address] [id number] [address] [place] [address] Jun, Diabetes E11.9 ; Depressive disorder, not elsewhere classified F32.9 and Back pain M54.9 [facility] [address] [id number] [address] [place] [address] Jun, [facility] [address] [id number] [address] [place] [address] Jun, [facility] [address] [id number] [address] [place] [address] May, [facility] [address] [id number] [address] [place] [address] May, [facility] [address] [id number] [address] [place] [address] Apr, [facility] [address] [id number] [address] [place] [address] Apr, [facility] [address] [id number] [address] [place] [address] Mar, [facility] [address] [id number] [address] [place] [address] Mar, [facility] [address] [id number] [address] [place] [id number] Mar, Dental examination V72.2 [facility] [address] [id number] [address] [place] [phone] Jan, [facility] [address] [id number] [address] [place] [address] Jan, [facility] [address] [id number] [address] [place] [address] Jan, [facility] [address] [id number] [address] [place] [address] Jan, [facility] [address] [id number] [address] [place] [address] Jan, [facility] [address] [id number] [address] [place] [address] December, [facility] [address] [id number] [address] [place] [id number] December, [facility] [address] [id number] [address] [place] [address] December, Diabetes mellitus type 2, un controlled 250.02 and Osteomyelitis of ankle or foot 730.27 [facility] [address] [id number] [address] [place] [id number] December, [facility] [address] [id number] [address] [place] [address] Nov, [facility] [address] [id number] [address] [place] [id number] Nov, [facility] [address] [id number] [address] [place] [phone] Oct, [facility] [address] [id number] [address] [place] [id number] Oct, [facility] [address] [id number] [address] [place] [phone] Oct, [facility] [address] [id number] [address] [place] [phone] Oct, [facility] [address] [id number] [address] [place] [id number] Sep, [facility] [address] [id number] [address] [place] [id number] Sep, [facility] [address] [id number] [address] [place] [address] Sep, [facility] [address] [id number] [address] [place] [address] Sep, [facility] [address] [id number] [address] [place] [address] Aug, [facility] [address] [id number] [address] [place] [id number] Aug, [facility] [address] [id number] [address] [place] [address], [place] [address] Aug, [facility] [address] [id number] [address] [place] [address], [place] [address] Aug, [facility] [address] [id number] [address] [place] [address], [place] [address] Aug, [facility] [address] [id number] [address] [place] [address], [place] [address] Aug, [facility] [address] [id number] [address] [place] [address], [place] [address] Jul, [facility] [address] [id number] [address] [place] [address], [place] [address] Jul, [facility] [address] [id number] [address] [place] [address], [place] [address] Jul, [facility] [address] [id number] [address] [place] [address], [place] [address] Jul, [facility] [address] [id number] [address] [place] [address], [place] [address] Jul, [facility] [address] [id number] [address] [place] [address], [place] [address] Jul, [facility] [address] [id number] [address] [place] [address], [place] [address] Jun, [facility] [address] [id number] [address] [place] [address], [place] [address] Jun, [facility] [address] [id number] [address] [place] [address], [place] [address] Jun, [facility] [address] [id number] [address] [place] [address], [place] [address] Jun, [facility] [address] [id number] [address] [place] [address], [place] [address] May, [facility] [address] [id number] [address] [place] [address], [place] [address] May, [facility] [address] [id number] [address] [place] [address], [place] [address] May, [facility] [address] [id number] [address] [place] [address], [place] [address] May, [facility] [address] [id number] [address] [place] [address], [place] [address] May, [facility] [address] [id number] [address] [place] [address], [place] [address] May, [facility] [address] [id number] [address] [place] [address], [place] [address] Apr, [facility] [address] [id number] [address] [place] [address], [place] [address] Apr, [facility] [address] [id number] [address] [place] [address], [place] [address] Apr, [facility] [address] [id number] [address] [place] [address], [place] [address] Apr, [facility] [address] [id number] [address] [place] [address], [place] [address] Mar, [facility] [address] [id number] [address] [place] [address], [place] [address] Mar, [facility] [address] [id number] [address] [place] [address], [place] [address] Mar, [facility] [address] [id number] [address] [place] [address], [place] [address] Mar, [facility] [address] [id number] [address] [place] [address], [place] [address] Jan, [facility] [address] [id number] [address] [place] [address], [place] [address] Jan, [facility] [address] [id number] [address] [place] [address], [place] [address] Jan, [facility] [address] [id number] [address] [place] [address], [place] [address] Jan, [facility] [address] [id number] [address] [place] [address], [place] [address] Jan, [facility] [address] [id number] [address] [place] [address], [place] [address] Jan, [facility] [address] [id number] [address] [place] [address], [place] [address] Jan, [facility] [address] [id number] [address] [place] [address], [place] [address] Jan, [facility] [address] [id number] [address] [place] [address], [place] [address] Jan, [facility] [address] [id number] [address] [place] [address], [place] [address] Jan, [facility] [address] [id number] [address] [place] [address], [place] [address] Jan, [facility] [address] [id number] [address] [place] [address], [place] [address] Jan, [facility] [address] [id number] [address] [place] [address], [place] [address] December, [facility] [address] [id number] [address] [place] [address], [place] [address] December, [facility] [address] [id number] [address] [place] [address], [place] [address] December, [facility] [address] [id number] [address] [place] [address], [place] [address] December, [facility] [address] [id number] [address] [place] [address], [place] [address] December, [facility] [address] [id number] [address] [place] [address], [place] [address] December, [facility] [address] [id number] [address] [place] [address], [place] [address] Nov, [facility] [address] [id number] [facility] [place] [address] Nov, [facility] [address] [id number] [facility] [place] [address] Nov, [facility] [address] [id number] [facility] [place] [address] Nov, [facility] [address] [id number] [address] [place] [address], [place] [address] Nov, [facility] [address] [id number] [address] [place] [address], [place] [address] Nov, [facility] [address] [id number] [address] [place] [address], [place] [address] Oct, [facility] [address] [id number] [address] [place] [address], [place] [address] Oct, [facility] [address] [id number] [address] [place] [address], [place] [address] Oct, [facility] [address] [id number] [address] [place] [address], [place] [address] Oct, [facility] [address] [id number] [address] [place] [address], [place] [address] Sep, [facility] [address] [id number] [address] [place] [address], [place] [address] Sep, [facility] [address] [id number] [address] [place] [address], [place] [address] Sep, [facility] [address] [id number] [address] [place] [address], [place] [address] Sep, [facility] [address] [id number] [address] [place] [address], [place] [address] Sep, [facility] [address] [id number] [address] [place] [address], [place] [address] Sep, [facility] [address] [id number] [address] [place] [address], [place] [address] Sep, [facility] [address] [id number] [address] [place] [address], [place] [address] Sep, [facility] [address] [id number] [address] [place] [address], [place] [address] Sep, [facility] [address] [id number] [address] [place] [address], [place] [address] Sep, [facility] [address] [id number] [address] [place] [address], [place] [address] Aug, [facility] [address] [id number] [address] [place] [address], [place] [address] Aug, [facility] [address] [id number] [address] [place] [address], [place] [address] Aug, [facility] [address] [id number] [address] [place] [address], [place] [address] Aug, [facility] [address] [id number] [address] [place] [address], [place] [address] Aug, [facility] [address] [id number] [address] [place] [address], [place] [address] Aug, [facility] [address] [id number] [address] [place] [address], [place] [address] Jul, [facility] [address] [id number] [address] [place] [address], [place] [address] Jul, [facility] [address] [id number] [address] [place] [address], [place] [address] Jul, [facility] [address] [id number] [address] [place] [address], [place] [address] Jul, [facility] [address] [id number] [address] [place] [address], [place] [address] Jul, [facility] [address] [id number] [address] [place] [address], [place] [address] Jul, [facility] [address] [id number] [address] [place] [address], [place] [address] Jul, [facility] [address] [id number] [address] [place] [address], [place] [address] Jul, [facility] [address] [id number] [address] [place] [address], [place] [address] Jul, [facility] [address] [id number] [address] [place] [address], [place] [address] Jul, [facility] [address] [id number] [address] [place] [address], [place] [address] Jun, [facility] [address] [id number] [address] [place] [address], [place] [address] Jun, [facility] [address] [id number] [address] [place] [address], [place] [address] Jun, [facility] [address] [id number] [address] [place] [address], [place] [address] Jun, [facility] [address] [id number] [address] [place] [address], [place] [address] May, [facility] [address] [id number] [address] [place] [address], [place] [address] May, [facility] [address] [id number] [address] [place] [address], [place] [address] Apr, [facility] [address] [id number] [address] [place] [address], [place] [address] Apr, [facility] [address] [id number] [address] [place] [address], [place] [address] 05 Apr, 2013 [facility] [address] [id number] [address] [place] [address], [place] [address] Mar, [facility] [address] [id number] [address] [place] [address], [place] [address] Mar, [facility] [address] [id number] [address] [place] [address], [place] [address] Jan, [facility] [address] [id number] [address] [place] [address], [place] [address] Jan, [facility] [address] [id number] [address] [place] [address], [place] [address] Jan, [facility] [address] [id number] [address] [place] [address], [place] [address] Jan, [facility] [address] [id number] [address] [place] [address], [place] [address] 15 Jan, 2013 [facility] [address] [id number] [address] [place] [address], [place] [address] Jan, [facility] [address] [id number] [address] [place] [address], [place] [address] Jan, [facility] [address] [id number] [address] [place] [address], [place] [address] December, [facility] [address] [id number] [address] [place] [address], [place] [address] December, [facility] [address] [id number] [address] [place] [address], [place] [address] December, [facility] [address] [id number] [address] [place] [address], [place] [address] Nov, [facility] [address] [id number] [address] [place] [address], [place] [address] Nov, [facility] [address] [id number] [address] [place] [address], [place] [address] Oct, [facility] [address] [id number] [address] [place] [address], [place] [address] Oct, [facility] [address] [id number] [address] [place] [address], [place] [address] Sep, [facility] [address] [id number] [address] [place] [address], [place] [address] Sep, [facility] [address] [id number] [address] [place] [address], [place] [address] Aug, [facility] [address] [id number] [address] [place] [address], [place] [address] Aug, [facility] [address] [id number] [address] [place] [address], [place] [address] Jul, [facility] [address] [id number] [address] [place] [address], [place] [address] Jul, [facility] [address] [id number] [address] [place] [address], [place] [address] Jul, [facility] [address] [id number] [address] [place] [address], [place] [address] Jul, [facility] [address] [id number] [address] [place] [address], [place] [address] Jul, [facility] [address] [id number] [address] [place] [address], [place] [address] Jul, [facility] [address] [id number] [address] [place] [address], [place] [address] Jul, [facility] [address] [id number] [address] [place] [address], [place] [address] Jul, [facility] [address] [id number] [address] [place] [address], [place] [address] Jun, [facility] [address] [id number] [address] [place] [address], [place] [address] Jun, [facility] [address] [id number] [address] [place] [address], [place] [address] Jun, [facility] [address] [id number] [address] [place] [address], [place] [address] Jun, [facility] [address] [id number] [address] [place] [address], [place] [address] Jun, [facility] [address] [id number] [address] [place] [address], [place] [address] Jun, [facility] [address] [id number] [address] [place] [address], [place] [address] Jun, [facility] [address] [id number] [address] [place] [address], [place] [address] Jun, [facility] [address] [id number] [address] [place] [address], [place] [address] Jun, [facility] [address] [id number] [address] [place] [address], [place] [address] Jun, [facility] [address] [id number] [address] [place] [address], [place] [address] May, [facility] [address] [id number] [address] [place] [address], [place] [address] May, [facility] [address] [id number] [address] [place] [address], [place] [address] May, [facility] [address] [id number] [address] [place] [address], [place] [address] Apr, [facility] [address] [id number] [address] [place] [address], [place] [address] Apr, [facility] [address] [id number] [address] [place] [address] Mar, [facility] [address] [id number] [address] [place] [address] Mar, [facility] [address] [id number] [address] [place] [address] Jan, [facility] [address] [id number] [address] [place] [address], [place] [address] Jan, [facility] [address] [id number] [address] [place] [address] Jan, [facility] [address] [id number] [address] [place] [id number] 14 Jan, 2012 [facility] [address] [id number] [address] [place] [address] Jan, [facility] [address] [id number] [address] [place] [address], [place] [address] December, [facility] [address] [id number] [address] [place] [address], [place] [address] December, [facility] [address] [id number] [address] [place] [address], [place] [address] Nov, [facility] [address] [id number] [address] [place] [address], [place] [address] Nov, [facility] [address] [id number] [address] [place] [address], [place] [address] Oct, [facility] [address] [id number] [address] [place] [address], [place] [address] Oct, [facility] [address] [id number] [address] [place] [address], [place] [address] Oct, [facility] [address] [id number] [address] [place] [address], [place] [address] Oct, [facility] [address] [id number] [address] [place] [address], [place] [address] Sep, [facility] [address] [id number] [address] [place] [address], [place] [address] Sep, [facility] [address] [id number] [address] [place] [address], [place] [address] Sep, [facility] [address] [id number] [address] [place] [address], [place] [address] Sep, [facility] [address] [id number] [address] [place] [address], [place] [address] Sep, [facility] [address] [id number] [address] [place] [address], [place] [address] Sep, [facility] [address] [id number] [address] [place] [address], [place] [address] Sep, [facility] [address] [id number] [address] [place] [address], [place] [address] 15 Sep, 2011 [facility] [address] [id number] [address] [place] [address], [place] [address] 10 Sep, 2011 [facility] [address] [id number] [address] [place] [address], [place] [address] 27 Aug, 2011 [facility] [address] [id number] [address] [place] [address], [place] [address] Aug, [facility] [address] [id number] [address] [place] [address], [place] [address] 30 Jul, 2011 [facility] [address] [id number] [address] [place] [address], [place] [address] Jul, [facility] [address] [id number] [address] [place] [address], [place] [address] Jul, [facility] [address] [id number] [address] [place] [address], [place] [address] Jul, [facility] [address] [id number] [address] [place] [address], [place] [address] Jul, [facility] [address] [id number] [address] [place] [address], [place] [address] Jun, [facility] [address] [id number] [address] [place] [address], [place] [address] Jun, [facility] [address] [id number] [address] [place] [address], [place] [address] Jun, [facility] [address] [id number] [address] [place] [address], [place] [address] Jun, [facility] [address] [id number] [address] [place] [address], [place] [address] Jun, [facility] [address] [id number] [address] [place] [address], [place] [address] May, [facility] [address] [id number] [address] [place] [id number] 31 Jul, 2010 [facility] [address] [facility] [id number] [address] [place] [address] Jul, [facility] [address] [facility] [id number] [address] [place] [address] Jul, [facility] [address] [facility] [id number] [address] [place] [id number] Jul, [facility] [address] [facility] [id number] [address] [place] [address] Jun, [facility] [address] [facility] [id number] [address] [place] [address] Jun, [facility] [address] [facility] [id number] [address] [place] [address] May, IMMUNIZATIONS No Known Immunizations SOCIAL HISTORY [...]
[2020-01-03] MEDS: AMIODARONE INJECTION 450 MG in D5W IV SOLUTION (EXCEL) 250 ML IV SCH (21:29)
[2020-01-03] MEDS ORDERED: ASPIRIN 81 MG CHEW (CHILDREN'S ASA) PO ONE (21:30)
[2020-01-03 21:31] LABS: ALBUMIN 4.3 GM/DL (3.2-4.5); POTASSIUM 3.7 MMOL/L (3.6-5.0)
[2020-01-03 21:32] LABS: CALCIUM 9.3 MG/DL (8.5-10.1)
--- OUTSIDE RECORDS SUMMARY | 2020-01-03 21:32 | XMS REPORT | Continuity of Care Document ---
Author Organization Unknown Address Unknown Phone Unavailable Allergies Active Description Code Type Severity Reaction Onset Reported/Identified Relationship to Patient Clinical Status Yes NKANo Known Allergies NKA Miscellaneous Allergy Unknown N/A 11/24/2005 Yes No Known Drug Allergies [id number] Drug Allergy Unknown N/A 12/14/2017 Medications There is no data. 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, LIVER 02/26/2010 SUSAN QUIÑONEZ MD 401.1 HYPERTENSION, BENIGN ESSENTIAL 02/26/2010 SUSAN QUIÑONEZ MD 716.9 0 ARTHRITIS/ ARTHROPATHY, UNSPECIFIED 02/26/2010 SUSAN QUIÑONEZ MD 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, LIVER 02/26/2010 SUSAN QUIÑONEZ MD 401.1 HYPERTENSION, BENIGN ESSENTIAL 02/26/2010 SUSAN QUIÑONEZ MD 716.9 0 ARTHRITIS/ ARTHROPATHY, UNSPECIFIED 02/26/2010 SUSAN QUIÑONEZ MD 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, LIVER 02/26/2010 COLBY LOVE DO 401.1 HYPERTENSION, BENIGN ESSENTIAL 02/26/2010 COLBY LOVE DO 716.90 ARTHRITIS/ ARTHROPATHY, UNSPECIFIED 02/26/2010 COLBY LOVE DO 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, LIVER 02/26/2010 SUSAN QUIÑONEZ MD 401.1 HYPERTENSION, BENIGN ESSENTIAL 02/26/2010 SUSAN QUIÑONEZ MD 716.9 0 ARTHRITIS/ ARTHROPATHY, UNSPECIFIED 02/26/2010 KHANG GALVEZ, SUSAN 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, LIVER 02/26/2010 KHANG GALVEZ, SUSAN 401.1 HYPERTENSION, BENIGN ESSENTIAL 02/26/2010 KHANG GALVEZ, SUSAN 716.9 0 ARTHRITIS/ ARTHROPATHY, UNSPECIFIED 02/26/2010 KHANG GALVEZ, SUSAN 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, LIVER 02/26/2010 KHANG GALVEZ, SUSAN 401.1 HYPERTENSION, BENIGN ESSENTIAL 02/26/2010 KHANG GALVEZ, SUSAN 716.9 0 ARTHRITIS/ ARTHROPATHY, UNSPECIFIED 02/26/2010 KHANG GALVEZ, SUSAN 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, LIVER 02/26/2010 KHANG GALVEZ, SUSAN 401.1 HYPERTENSION, BENIGN ESSENTIAL 02/26/2010 KHANG GALVEZ, SUSAN 716.9 0 ARTHRITIS/ ARTHROPATHY, UNSPECIFIED 02/26/2010 KHANG GALVEZ, SUSAN 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, LIVER 02/26/2010 SUSAN QUIÑONEZ MD 401.1 HYPERTENSION, BENIGN ESSENTIAL 02/26/2010 KHANG GALVEZ, SUSAN 716.9 0 ARTHRITIS/ ARTHROPATHY, UNSPECIFIED 02/26/2010 KHANG GALVEZ, SUSAN 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, LIVER 02/26/2010 KHANG GALVEZ, SUSAN 401.1 HYPERTENSION, BENIGN ESSENTIAL 02/26/2010 KHANG GALVEZ, SUSAN 716.9 0 ARTHRITIS/ ARTHROPATHY, UNSPECIFIED 02/26/2010 KHANG GALVEZ, SUSAN 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, LIVER 02/26/2010 KHANG GALVEZ, SUSAN 401.1 HYPERTENSION, BENIGN ESSENTIAL 02/26/2010 KHANG GALVEZ, SUSAN 716.9 0 ARTHRITIS/ ARTHROPATHY, UNSPECIFIED 02/26/2010 KHANG GALVEZ, SUSAN 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, LIVER 02/26/2010 KHANG GALVEZ, SUSAN 401.1 HYPERTENSION, BENIGN ESSENTIAL 02/26/2010 KHANG GALVEZ, SUSAN 716.9 0 ARTHRITIS/ ARTHROPATHY, UNSPECIFIED 02/26/2010 KHANG GALVEZ, SUSAN 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, LIVER 02/26/2010 SUSAN QUIÑONEZ MD 401.1 HYPERTENSION, BENIGN ESSENTIAL 02/26/2010 SUSAN QUIÑONEZ MD 716.9 0 ARTHRITIS/ ARTHROPATHY, UNSPECIFIED 02/26/2010 SUSAN QUIÑONEZ MD 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, LIVER 02/26/2010 401.1 HYPE RTENSION, BENIGN ESSENTIAL 02/26/2010 716.90 ART HRITIS/ ARTHROPATHY, UNSPECIFIED 02/26/2010 V42.7 ORGA N OR TISSUE REPLACED BY TRANSPLANT, LIVER 08/26/2010 [...] OF SKIN AND SUBCUTANEOUS TISSUE 08/26/2010 686.9 UNSP ECIFIED LOCAL INFECTION OF SKIN AND SUBCUTANEOUS TISSUE 10/28/2010 SUSAN QUIÑONEZ MD 461.9 Acute Sinusitis Unspecified 10/28/2010 SUSAN QUIÑONEZ MD 783.2 1 LOSS OF WEIGHT 10/28/2010 SUSAN QUIÑONEZ MD.Olga Acute Sinusitis Unspecified 10/28/2010 SUSAN QUIÑONEZ MD 783.2 1 LOSS OF WEIGHT 10/28/2010 SUSAN QUIÑONEZ MD 461.9 Acute Sinusitis Unspecified 10/28/2010 SUSAN QUIÑONEZ MD 783.2 1 LOSS OF WEIGHT 10/28/2010 SUSAN QUIÑONEZ MD 461.9 Acute Sinusitis Unspecified 10/28/2010 SUSAN QUIÑONEZ MD 783.2 1 LOSS OF WEIGHT 10/28/2010 LOVE COLBY MONTIEL K 461.9 Acute Sinusitis Unspecified 10/28/2010 LOVE COLBY MONTIEL K 783.21 LOSS OF WEIGHT 10/28/2010 SUSAN QUIÑONEZ MD.9 Acute Sinusitis Unspecified 10/28/2010 SUSAN QUIÑONEZ MD 783.2 1 LOSS OF WEIGHT 10/28/2010 SUSAN QUIÑONEZ MD1.9 Acute Sinusitis Unspecified 10/28/2010 SUSAN QUIÑONEZ MD 783.2 1 LOSS OF WEIGHT 10/28/2010 SUSAN QUIÑONEZ MD.9 Acute Sinusitis Unspecified 10/28/2010 SUSAN QUIÑONEZ MD 783.2 1 LOSS OF WEIGHT 10/28/2010 SUSAN QUIÑONEZ MD.9 Acute Sinusitis Unspecified 10/28/2010 SUSAN QUIÑONEZ MD 783.2 1 LOSS OF WEIGHT 10/28/2010 SUSAN QUIÑONEZ MD1.9 Acute Sinusitis Unspecified 10/28/2010 SUSAN QUIÑONEZ MD 783.2 1 LOSS OF WEIGHT 10/28/2010 SUSAN QUIÑONEZ MD.9 Acute Sinusitis Unspecified 10/28/2010 SUSAN QUIÑONEZ MD 783.2 1 LOSS OF WEIGHT 10/28/2010 SUSAN QUIÑONEZ MD 461.9 Acute Sinusitis Unspecified 10/28/2010 SUSAN QUIÑONEZ MD 783.2 1 LOSS OF WEIGHT 10/28/2010 SUSAN QUIÑONEZ MD.9 Acute Sinusitis Unspecified 10/28/2010 SUSAN QUIÑONEZ MD 783.2 1 LOSS OF WEIGHT 10/28/2010 SUSAN QUIÑONEZ MD 461.9 Acute Sinusitis Unspecified 10/28/2010 SUSAN QUIÑONEZ MD 783.2 1 LOSS OF WEIGHT 10/28/2010 461.9 ACUT E SINUSITIS UNSPECIFIED 10/28/2010 783.21 LOS S OF WEIGHT 11/21/2010 KHANG GALVEZ, SUSAN 133.0 Scabies 11/21/2010 KHANG GALVEZ, SUSAN 466.0 ACUTE BRONCHITIS 11/21/2010 KHANG GALVEZ, SUSAN 133.0 Scabies 11/21/2010 KHANG GALVEZ, SUSAN 466.0 ACUTE BRONCHITIS 11/21/2010 KHANG GALVEZ, SUSAN 133.0 Scabies 11/21/2010 KHANG GALVEZ, SUSAN 466.0 ACUTE BRONCHITIS 11/21/2010 KHANG GALVEZ, SUSAN 133.0 Scabies 11/21/2010 KHANG GALVEZ, SUSAN 466.0 ACUTE BRONCHITIS 11/21/2010 LOVE COLBY MONTIEL 133.0 Scabies 11/21/2010 LOVE COLBY MONTIEL 466.0 ACUTE BRONCHITIS 11/21/2010 KHANG GALVEZ, SUSAN 133.0 Scabies 11/21/2010 KHANG GALVEZ, SUSAN 466.0 ACUTE BRONCHITIS 11/21/2010 KHANG GALVEZ, SUSAN 133.0 Robinbies 11/21/2010 KHANG GALVEZ, SUSAN 466.0 ACUTE BRONCHITIS 11/21/2010 KHANG GALVEZ, SUSAN 133.0 Robinbies 11/21/2010 KHANG GALVEZ, SUSAN 466.0 ACUTE BRONCHITIS 11/21/2010 KHANG GALVEZ, SUSAN 133.0 Robinbies 11/21/2010 KHANG GALVEZ, SUSAN 466.0 ACUTE BRONCHITIS 11/21/2010 KHANG GALVEZ, SUSAN 133.0 Isabellees 11/21/2010 KHANG GALVEZ, SUSAN 466.0 ACUTE BRONCHITIS 11/21/2010 KHANG GALVEZ, SUSAN 133.0 Robinbies 11/21/2010 KHANG GALVEZ, SUSAN 466.0 ACUTE BRONCHITIS 11/21/2010 KHANG GALVEZ, SUSAN 133.0 [place] 11/21/2010 KHANG GALVEZ, SUSAN 466.0 ACUTE BRONCHITIS 11/21/2010 KHANG GALVEZ, SUSAN 133.0 Robinbies 11/21/2010 KHANG GALVEZ, SUSAN 466.0 ACUTE BRONCHITIS 11/21/2010 KHANG GALVEZ, SUSAN 133.0 Robinbies 11/21/2010 KHANG GALVEZ, SUSAN 466.0 ACUTE BRONCHITIS 11/21/2010 133.0 SCABIES 11/21/2010 466.0 ACUT E BRONCHITIS 01/24/2011 KHANG GALVEZ, SUSAN 380.1 0 OTITIS EXTERNA 01/24/2011 KHANG GALVEZ, SUSAN 380.1 0 OTITIS EXTERNA 01/24/2011 KHANG GALVEZ, SUSAN 380.1 0 OTITIS EXTERNA 01/24/2011 KHANG GALVEZ, SUSAN 380.1 0 OTITIS EXTERNA 01/24/2011 COLBY LOVE DO 380.10 OTITIS EXTERNA 01/24/2011 KHANG GALVEZ, SUSAN 380.1 0 OTITIS EXTERNA 01/24/2011 KHANG GALVEZ, SUSAN 380.1 0 OTITIS EXTERNA 01/24/2011 KHANG GALVEZ, SUSAN 380.1 0 OTITIS EXTERNA 01/24/2011 KHANG GALVEZ, SUSAN 380.1 0 OTITIS EXTERNA 01/24/2011 KHANG GALVEZ, SUSAN 380.1 0 OTITIS EXTERNA 01/24/2011 KHANG GALVEZ, SUSAN 380.1 0 OTITIS EXTERNA 01/24/2011 KHANG GALVEZ, SUSAN 380.1 0 OTITIS EXTERNA 01/24/2011 KHANG GALVEZ, SUSAN 380.1 0 OTITIS EXTERNA 01/24/2011 KHANG GALVEZ, SUSAN 380.1 0 OTITIS EXTERNA 01/24/2011 380.10 MEGAN TIS EXTERNA 03/14/2011 SUSAN QUIÑONEZ MD V58.6 9 MEDICATION HIGH RISK 03/14/2011 SUSAN QUIÑONEZ MD V58.6 9 MEDICATION HIGH RISK 03/14/2011 SUSAN QUIÑONEZ MD V58.6 9 MEDICATION HIGH RISK 03/14/2011 SUSAN QUIÑONEZ MD V58.6 9 MEDICATION HIGH RISK 03/14/2011 COLBY LOVE DO V58.69 MEDICATION HIGH RISK 03/14/2011 SUSAN QUIÑONEZ MD V58.6 9 MEDICATION HIGH RISK 03/14/2011 SUSAN QUIÑONEZ MD V58.6 9 MEDICATION HIGH RISK 03/14/2011 SUSAN QUIÑONEZ MD V58.6 9 MEDICATION HIGH RISK 03/14/2011 SUSAN QUIÑONEZ MD V58.6 9 MEDICATION HIGH RISK 03/14/2011 SUSAN QUIÑONEZ MD V58.6 9 MEDICATION HIGH RISK 03/14/2011 SUSAN QUIÑONEZ MD V58.6 9 MEDICATION HIGH RISK 03/14/2011 SUSAN QUIÑONEZ MD V58.6 9 MEDICATION HIGH RISK 03/14/2011 SUSAN QUIÑONEZ MD V58.6 9 MEDICATION HIGH RISK 03/14/2011 SUSAN QUIÑONEZ MD V58.6 9 MEDICATION HIGH RISK 03/14/2011 V58.69 MED ICATION HIGH RISK 07/01/2011 SUSAN QUIÑONEZ MD 790.6 OTHER ABNORMAL BLOOD CHEMISTRY 07/01/2011 SUSAN QUIÑONEZ MD V04.8 1 Flu Dx (medicare Only) 07/01/2011 SUSAN QUIÑONEZ MD 790.6 OTHER ABNORMAL BLOOD CHEMISTRY 07/01/2011 SUSAN QUIÑONEZ MD V04.8 1 Flu Dx (medicare Only) 07/01/2011 SUSAN QUIÑONEZ MD 790.6 OTHER ABNORMAL BLOOD CHEMISTRY 07/01/2011 SUSAN QUIÑONEZ MD V04.8 1 Flu Dx (medicare Only) 07/01/2011 SUSAN QUIÑONEZ MD 790.6 OTHER ABNORMAL BLOOD CHEMISTRY 07/01/2011 SUSAN QUIÑONEZ MD V04.8 1 Flu Dx (medicare Only) 07/01/2011 LOVE COLBY MONTIEL K 790.6 OTHER ABNORMAL BLOOD CHEMISTRY 07/01/2011 LOVE COLBY MONTIEL K V04.81 Flu Dx (medicare Only) 07/01/2011 SUSAN QUIÑONEZ MD 790.6 OTHER ABNORMAL BLOOD CHEMISTRY 07/01/2011 SUSAN QUIÑONEZ MD V04.8 1 Flu Dx (medicare Only) 07/01/2011 SUSAN QUIÑONEZ MD 790.6 OTHER ABNORMAL BLOOD CHEMISTRY 07/01/2011 SUSAN QUIÑONEZ MD V04.8 1 Flu Dx (medicare Only) 07/01/2011 SUSAN QUIÑONEZ MD 790.6 OTHER ABNORMAL BLOOD CHEMISTRY 07/01/2011 SUSAN QUIÑONEZ MD V04.8 1 Flu Dx (medicare Only) 07/01/2011 SUSAN QUIÑONEZ MD 790.6 OTHER ABNORMAL BLOOD CHEMISTRY 07/01/2011 SUSAN QUIÑONEZ MD V04.8 1 Flu Dx (medicare Only) 07/01/2011 SUSAN QUIÑONEZ MD 790.6 OTHER ABNORMAL BLOOD CHEMISTRY 07/01/2011 SSUAN QUIÑONEZ MD V04.8 1 Flu Dx (medicare Only) 07/01/2011 SUSAN QUIÑONEZ MD 790.6 OTHER ABNORMAL BLOOD CHEMISTRY 07/01/2011 SUSAN QUIÑONEZ MD V04.8 1 Flu Dx (medicare Only) 07/01/2011 SUSAN QUIÑONEZ MD 790.6 OTHER ABNORMAL BLOOD CHEMISTRY 07/01/2011 SUSAN QUIÑONEZ MD V04.8 1 Flu Dx (medicare Only) 07/01/2011 SUSAN QUIÑONEZ MD 790.6 OTHER ABNORMAL BLOOD CHEMISTRY 07/01/2011 SUSAN QUIÑONEZ MD V04.8 1 Flu Dx (medicare Only) 07/01/2011 SUSAN QUIÑONEZ MD 790.6 OTHER ABNORMAL BLOOD CHEMISTRY 07/01/2011 SUSAN QUIÑONEZ MD V04.8 1 Flu Dx (medicare Only) 07/01/2011 790.6 OTHE R ABNORMAL BLOOD CHEMISTRY 07/01/2011 V04.81 FLU DX (MEDICARE ONLY) 07/01/2012 SUSAN QUIÑONEZ MD 790.2 9 OTHER ABNORMAL GLUCOSE 07/01/2012 SUSAN QUIÑONEZ MD 790.2 9 OTHER ABNORMAL GLUCOSE 07/01/2012 SUSAN QUIÑONEZ MD 790.2 9 OTHER ABNORMAL GLUCOSE 07/01/2012 SUSAN QUIÑONEZ MD 790.2 9 OTHER ABNORMAL GLUCOSE 07/01/2012 COLBY LOVE DO 790.29 OTHER ABNORMAL GLUCOSE 07/01/2012 SUSAN QUIÑONEZ MD 790.2 9 OTHER ABNORMAL GLUCOSE 07/01/2012 SUSAN QUIÑONEZ MD 790.2 9 OTHER ABNORMAL GLUCOSE 07/01/2012 SUSAN QUIÑONEZ MD 790.2 9 OTHER ABNORMAL GLUCOSE 07/01/2012 SUSAN QUIÑONEZ MD 790.2 9 OTHER ABNORMAL GLUCOSE 07/01/2012 SUSAN QUIÑONEZ MD 790.2 9 OTHER ABNORMAL GLUCOSE 07/01/2012 SUSAN QUIÑONEZ MD 790.2 9 OTHER ABNORMAL GLUCOSE 07/01/2012 SUSAN QUIÑONEZ MD 790.2 9 OTHER ABNORMAL GLUCOSE 07/01/2012 SUSAN QUIÑONEZ MD 790.2 9 OTHER ABNORMAL GLUCOSE 07/01/2012 SUSAN QUIÑONEZ MD 790.2 9 OTHER ABNORMAL GLUCOSE 01/25/2013 SUSAN QUIÑONEZ MD 250.0 0 DIABETES MELLITUS WITHOUT MENTION OF COMPLICATION TYPE II OR UNSPECIFIED TYPE NOT STATED UNCONTROLLED 01/25/2013 SUSAN QUIÑONEZ MD 250.0 0 DIABETES MELLITUS WITHOUT MENTION OF COMPLICATION TYPE II OR UNSPECIFIED TYPE NOT STATED UNCONTROLLED 01/25/2013 SUSAN QUIÑONEZ MD 250.0 0 DIABETES MELLITUS WITHOUT MENTION OF COMPLICATION TYPE II OR UNSPECIFIED TYPE NOT STATED UNCONTROLLED 01/25/2013 COLBY LOVE DO 250.00 DIABETES MELLITUS WITHOUT MENTION OF COMPLICATION TYPE II OR UNSPECIFIED TYPE NOT STATED UNCONTROLLED 01/25/2013 SUSAN QUIÑONEZ MD 250.0 0 DIABETES MELLITUS WITHOUT MENTION OF COMPLICATION TYPE II OR UNSPECIFIED TYPE NOT STATED UNCONTROLLED 01/25/2013 SUSAN QUIÑONEZ MD 250.0 0 DIABETES MELLITUS WITHOUT MENTION OF COMPLICATION TYPE II OR UNSPECIFIED TYPE NOT STATED UNCONTROLLED 01/25/2013 SUSAN QUIÑONEZ MD 250.0 0 DIABETES MELLITUS WITHOUT MENTION OF COMPLICATION TYPE II OR UNSPECIFIED TYPE NOT STATED UNCONTROLLED 01/25/2013 SUASN QUIÑONEZ MD 250.0 0 DIABETES MELLITUS WITHOUT MENTION OF COMPLICATION TYPE II OR UNSPECIFIED TYPE NOT STATED UNCONTROLLED 01/25/2013 SUSAN QUIÑONEZ MD 250.0 0 DIABETES MELLITUS WITHOUT MENTION OF COMPLICATION TYPE II OR UNSPECIFIED TYPE NOT STATED UNCONTROLLED 01/25/2013 SUSAN QUIÑONEZ MD 250.0 0 DIABETES MELLITUS WITHOUT MENTION OF COMPLICATION TYPE II OR UNSPECIFIED TYPE NOT STATED UNCONTROLLED 01/25/2013 SUSAN QUIÑONEZ MD 250.0 0 DIABETES MELLITUS WITHOUT MENTION OF COMPLICATION TYPE II OR UNSPECIFIED TYPE NOT STATED UNCONTROLLED 01/25/2013 SUSAN QUIÑONEZ MD 250.0 0 DIABETES MELLITUS WITHOUT MENTION OF COMPLICATION TYPE II OR UNSPECIFIED TYPE NOT STATED UNCONTROLLED 01/25/2013 SUSAN QUIÑONEZ MD 250.0 0 DIABETES MELLITUS WITHOUT MENTION OF COMPLICATION TYPE II OR UNSPECIFIED TYPE NOT STATED UNCONTROLLED 09/13/2013 COLBY LOVE DO V06.1 TDAP DX 09/13/2013 KHANG GALVEZ, SUSAN V06.1 TDAP DX 09/13/2013 KHANG GALVEZ, SUSAN V06.1 TDAP DX 09/13/2013 KHANG GALVEZ, SUSAN V06.1 TDAP DX 09/13/2013 KHANG GALVEZ, SUSAN V06.1 TDAP DX 09/13/2013 KHANG GALVEZ, SUSAN V06.1 TDAP DX 09/13/2013 KHAGN GALVEZ, SUSAN V06.1 TDAP DX 09/13/2013 KHANG GALVEZ, SUSAN V06.1 TDAP DX 09/13/2013 KHANG GALVEZ, SUSAN V06.1 TDAP DX 09/13/2013 HUERTSUSAN BROWN MD V06.1 TDAP DX 09/27/2013 BATOOL KHAN, ALLY Q Ot 250. 00 DIAB MODESTO WO COMPL, TYPE II OR UNSPEC TY 09/27/2013 BATOOL DPM, ALLY Q Ot 730. 27 OSTEOMYELITIS NOS-ANKLE 12/08/2013 SUSAN QUIÑONEZ MD 782.1 RASH AND OTHER NONSPECIFIC SKIN ERUPTION 12/08/2013 SSUAN QUIÑONEZ MD 782.1 RASH AND OTHER NONSPECIFIC [...] DERMATOPHYTOSIS OF NAIL 03/14/2014 SUSAN QUIÑONEZ MD 730.2 7 UNSPECIFIED OSTEOMYELITIS INVOLVING ANKLE AND FOOT 03/14/2014 SUSAN QUIÑONEZ MD 730.2 7 UNSPECIFIED OSTEOMYELITIS INVOLVING ANKLE AND FOOT 03/14/2014 SUSAN QUIÑONEZ MD 730.2 7 UNSPECIFIED OSTEOMYELITIS INVOLVING ANKLE AND FOOT 03/17/2014 BATOOL CUNHAM, ALLY Q Ot 730. 27 OSTEOMYELITIS NOS-ANKLE 07/24/2014 SUSAN QUIÑONEZ MD 311 DEPRESSIVE DISORDER NOT ELSEWHERE CLASSIFIED 07/24/2014 SUSAN QUIÑONEZ MD 311 DEPRESSIVE DISORDER NOT ELSEWHERE CLASSIFIED 12/06/2014 Ot 491.9 12/06/2014 BATOOL DPM, ALLY Q Ot 250. 60 12/06/2014 BATOOL DPM, ALLY Q Ot 357. 2 12/06/2014 BATOOL DPM, ALLY Q Ot 715. 37 12/06/2014 BATOOL DPM, ALLY Q Ot 735. 0 12/06/2014 BATOOL DPM, ALLY Q Ot 681. 10 12/06/2014 BATOOL DPM, ALLY Q Ot 682. 7 12/06/2014 BATOOL DPM, ALLY Q Ot 730. 27 12/06/2014 BATOOL DPM, ALLY Q Ot V72. 84 12/06/2014 BATOOL DPM, ALLY Q Ot 730. 27 12/06/2014 BATOOL DPM, ALLY Q Ot 730. 27 12/06/2014 BATOOL DPM, ALLY Q Ot V72. 83 12/06/2014 BATOOL DPM, ALLY Q Ot V74. 8 12/15/2014 BATOOL DPM, ALLY Q Ot 707. 15 ULCER OF OTHER PART OF FOOT 12/15/2014 BATOOL DPM, ALLY Q Ot 730. 27 OSTEOMYELITIS NOS-ANKLE 01/01/2015 BATOOL DPM, ALLY Q Ot 707. 15 01/12/2015 BATOOL DPM, ALLY Q Ot 730. 27 01/12/2015 BATOOL DPM, ALLY Q Ot V72. 63 01/12/2015 BATOOL DPM, ALLY Q Ot V74. 8 09/01/2015 BATOOL DPM, ALLY Q Ot E11. 9 TYPE 2 DIABETES MELLITUS WITHOUT COMPLIC 09/01/2015 BATOOL DPM, ALLY Q Ot M86. 9 OSTEOMYELITIS, UNSPECIFIED 09/13/2015 Ot M86.9 09/13/2015 Ot Z01.812 09/13/2015 Ot Z11.2 03/18/2016 Ot M86.9 OSTE OMYELITIS, UNSPECIFIED 05/05/2016 Ot 491.9 SCRIPT EDITOR ELISA BRONCHITIS NOS 05/05/2016 BATOOL DPM, ALLY Q Ot 250. 60 DIAB W NEURO MANIFEST, TYPE II OR UNSPEC 05/05/2016 BATOOL DPM, ALLY Q Ot 357. 2 NEUROPATHY IN DIABETES 05/05/2016 BATOOL DPM, ALLY Q Ot 715. 37 LOC OSTEOARTH NOS-ANKLE 05/05/2016 BATOOL DPM, ALLY Q Ot 735. 0 HALLUX VALGUS 05/05/2016 BATOOL DPM, ALLY Q Ot 681. 10 CELLULITIS, TOE NOS 05/05/2016 BATOOL DPM, ALLY Q Ot 682. 7 CELLULITIS OF FOOT 05/05/2016 BATOOL DPM, ALLY Q Ot 730. 27 OSTEOMYELITIS NOS-ANKLE 05/05/2016 BATOOL DPM, ALLY Q Ot V72. 84 EXAM PRE-OPERATIVE NOS 05/05/2016 BATOOL DPM, ALLY Q Ot 730. 27 OSTEOMYELITIS NOS-ANKLE 05/05/2016 BATOOL DPM, ALLY Q Ot 730. 27 OSTEOMYELITIS NOS-ANKLE 05/05/2016 BATOOL DPM, ALLY Q Ot V72. 83 EXAM PRE-OPERATIVE NEC 05/05/2016 BATOOL DPM, ALLY Q Ot V74. 8 SCREEN-BACTERIAL DIS NEC 05/05/2016 BATOOL DPM, ALLY Q Ot 707. 15 ULCER OF OTHER PART OF FOOT 05/05/2016 BATOOL DPM, ALLY Q Ot 730. 27 OSTEOMYELITIS NOS-ANKLE 05/05/2016 BATOOL DPM, ALLY Q Ot V72. 63 PRE-PROCEDURAL LABORATORY EXAMINATION 05/05/2016 BATOOL DPM, ALLY Q Ot V74. 8 SCREEN-BACTERIAL DIS NEC 05/05/2016 Ot M86.9 OSTE OMYELITIS, UNSPECIFIED 05/05/2016 Ot M86.9 OSTE OMYELITIS, UNSPECIFIED 05/05/2016 Ot Z01.812 EN COUNTER FOR PREPROCEDURAL LABORATORY E 05/05/2016 Ot Z11.2 ENCO UNTER FOR SCREENING FOR OTHER BACTER 05/05/2016 JOSE ZAVALA DO Ot L72. 9 FOLLICULAR CYST OF THE SKIN AND SUBCUTAN 05/05/2016 JOSE ZAVALA DO Ot Z01.818 ENCOUNTER FOR OTHER PREPROCEDURAL EXAMIN 05/05/2016 JOSE ZAVALA DO Ot Z11. 2 ENCOUNTER FOR SCREENING FOR OTHER BACTER 05/07/2016 JOSE ZAVALA DO Ot L72. 9 FOLLICULAR CYST OF THE SKIN AND SUBCUTAN 05/07/2016 JOSE ZAVALA DO Ot Z01.818 ENCOUNTER FOR OTHER PREPROCEDURAL EXAMIN 05/07/2016 JOSE ZAVALA DO Ot Z11. 2 ENCOUNTER FOR SCREENING FOR OTHER BACTER 05/08/2016 JOSE ZAVALA DO Ot E11. 9 TYPE 2 DIABETES MELLITUS WITHOUT COMPLIC 05/08/2016 JOSE ZAVALA DO Ot L72. 0 EPIDERMAL CYST 05/08/2016 JOSE ZAVALA DO Ot L72. 9 FOLLICULAR CYST OF THE SKIN AND SUBCUTAN 05/08/2016 JOSE ZAVALA DO Ot Z79. 84 LONGTERM (CURRENT) USE OF ORAL HYPOGLYC 06/09/2016 BATOOL DPM, ALLY Q Ot 250. 60 DIAB W NEURO MANIFEST, TYPE II OR UNSPEC 06/09/2016 BATOOL DPM, ALLY Q Ot 357. 2 NEUROPATHY IN DIABETES 06/09/2016 BATOOL DPM, ALLY Q Ot 715. 37 LOC OSTEOARTH NOS-ANKLE 06/09/2016 BATOOL DPM, ALLY Q Ot 735. 0 HALLUX VALGUS 06/09/2016 BATOOL DPM, ALLY Q Ot 681. 10 CELLULITIS, TOE NOS 06/09/2016 BATOOL DPM, ALLY Q Ot 682. 7 CELLULITIS OF FOOT 06/09/2016 BATOOL DPM, ALLY Q Ot 730. 27 OSTEOMYELITIS NOS-ANKLE 06/09/2016 BATOOL DPM, ALLY Q Ot V72. 84 EXAM PRE-OPERATIVE NOS 06/09/2016 BATOOL DPM, ALLY Q Ot 730. 27 OSTEOMYELITIS NOS-ANKLE 06/09/2016 BATOOL DPM, ALLY Q Ot 730. 27 OSTEOMYELITIS NOS-ANKLE 06/09/2016 BATOOL DPM, ALLY Q Ot V72. 83 EXAM PRE-OPERATIVE NEC 06/09/2016 BATOOL DPM, ALLY Q Ot V74. 8 SCREEN-BACTERIAL DIS NEC 06/09/2016 BATOOL DPM, ALLY Q Ot 707. 15 ULCER OF OTHER PART OF FOOT 06/09/2016 BATOOL DPM, ALLY Q Ot 730. 27 OSTEOMYELITIS NOS-ANKLE 06/09/2016 BATOOL DPM, ALLY Q Ot V72. 63 PRE-PROCEDURAL LABORATORY EXAMINATION 06/09/2016 BATOOL DPM, ALLY Q Ot V74. 8 SCREEN-BACTERIAL DIS NEC 06/09/2016 Ot M86.9 OSTE OMYELITIS, UNSPECIFIED 06/09/2016 Ot M86.9 OSTE OMYELITIS, UNSPECIFIED 06/09/2016 Ot Z01.812 EN COUNTER FOR PREPROCEDURAL LABORATORY E 06/09/2016 Ot Z11.2 ENCO UNTER FOR SCREENING FOR OTHER BACTER 12/06/2016 BATOOL DPM, ALLY Q Ot 250. 60 DIAB W NEURO MANIFEST, TYPE II OR UNSPEC 12/06/2016 BATOOL DPM, ALLY Q Ot 357. 2 NEUROPATHY IN DIABETES 12/06/2016 BATOOL DPM, ALLY Q Ot 715. 37 LOC OSTEOARTH NOS-ANKLE 12/06/2016 BATOOL DPM, ALLY Q Ot 735. 0 HALLUX VALGUS 12/06/2016 BATOOL DPM, ALLY Q Ot 681. 10 CELLULITIS, TOE NOS 12/06/2016 BATOOL DPM, ALLY Q Ot 682. 7 CELLULITIS OF FOOT 12/06/2016 BATOOL DPM, ALLY Q Ot 730. 27 OSTEOMYELITIS NOS-ANKLE 12/06/2016 BATOOL DPM, ALLY Q Ot V72. 84 EXAM PRE-OPERATIVE NOS 12/06/2016 BATOOL DPM, ALLY Q Ot 730. 27 OSTEOMYELITIS NOS-ANKLE 12/06/2016 BATOOL DPM, ALLY Q Ot 730. 27 OSTEOMYELITIS NOS-ANKLE 12/06/2016 BATOOL DPM, ALLY Q Ot V72. 83 EXAM PRE-OPERATIVE NEC 12/06/2016 BATOOL DPM, ALLY Q Ot V74. 8 SCREEN-BACTERIAL DIS NEC 12/06/2016 BATOOL DPM, ALLY Q Ot 707. 15 ULCER OF OTHER PART OF FOOT 12/06/2016 BATOOL DPM, ALLY Q Ot 730. 27 OSTEOMYELITIS NOS-ANKLE 12/06/2016 BATOOL DPM, ALLY Q Ot V72. 63 PRE-PROCEDURAL LABORATORY EXAMINATION 12/06/2016 BATOOL DPM, ALLY Q Ot V74. 8 SCREEN-BACTERIAL DIS NEC 12/06/2016 Ot M86.9 OSTE OMYELITIS, UNSPECIFIED 12/06/2016 Ot M86.9 OSTE OMYELITIS, UNSPECIFIED 12/06/2016 Ot Z01.812 EN COUNTER FOR PREPROCEDURAL LABORATORY E 12/06/2016 Ot Z11.2 ENCO UNTER FOR SCREENING FOR OTHER BACTER 12/11/2016 NIRANJAN MOTA MD, Ot E11. 42 TYPE 2 DIABETES MELLITUS WITH DIABETIC P 12/11/2016 NIRANJAN MOTA MD, Ot E11.621 TYPE 2 DIABETES MELLITUS WITH FOOT ULCER 12/11/2016 NIRANJAN MOTA MD, Ot E11. 69 TYPE 2 DIABETES MELLITUS WITH OTHER SPEC 12/11/2016 NIRANJAN MOTA MD, Ot F32. 9 MAJOR DEPRESSIVE DISORDER, SINGLE EPISOD 12/11/2016 NIRANJAN MOTA MD, Ot F41. 9 ANXIETY DISORDER, UNSPECIFIED 12/11/2016 NIRANJAN MOTA MD, Ot H54. 7 UNSPECIFIED VISUAL LOSS 12/11/2016 NIRANJAN MOTA MD, Ot L02.611 CUTANEOUS ABSCESS OF RIGHT FOOT 12/11/2016 NIRANJAN MOTA MD, Ot L57. 0 ACTINIC KERATOSIS 12/11/2016 NIRANJAN MOTA MD, Ot M19. 91 PRIMARY OSTEOARTHRITIS, UNSPECIFIED SITE 12/11/2016 NIRANJAN MOTA MD, Ot M20. 41 OTHER HAMMER TOE(S) (ACQUIRED), RIGHT FO 12/11/2016 NIRANJAN MOTA MD, Ot M20. 42 OTHER HAMMER TOE(S) (ACQUIRED), LEFT REINALDO 12/11/2016 NIRANJAN MOTA MD, Ot M54. 9 DORSALGIA, UNSPECIFIED 12/11/2016 NIRANJAN MOTA MD, Ot M86. 9 OSTEOMYELITIS, UNSPECIFIED 12/11/2016 NIRANJAN MOTA MD, Ot S90.422A BLISTER (NONTHERMAL), LEFT GREAT TOE, IN 12/11/2016 NIRANJAN MOTA MD, Ot Z79. 84 HEAT AND FROST INSULATOR (CURRENT) USE OF ORAL HYPOGLYC 12/11/2016 NIRANJAN MOTA MD, Ot Z79.899 OTHER HEAT AND FROST INSULATOR (CURRENT) DRUG THERAPY 12/11/2016 NIRANJAN MOTA MD, Ot Z87.891 PERSONAL HISTORY OF NICOTINE DEPENDENCE 12/11/2016 NIRANJAN MOTA MD, Ot Z89.421 ACQUIRED ABSENCE OF OTHER RIGHT TOE(S) 12/11/2016 NIRANJAN MOTA MD, Ot Z89.422 ACQUIRED ABSENCE OF OTHER LEFT TOE(S) 12/11/2016 SVETLANA MD, NIRANJAN J Ot Z94. 4 LIVER TRANSPLANT STATUS 12/11/2016 NIRANJAN MOTA MD, Ot E11. 42 TYPE 2 DIABETES MELLITUS WITH DIABETIC P 12/11/2016 NIRANJAN MOTA MD, Ot E11.621 TYPE 2 DIABETES MELLITUS WITH FOOT ULCER 12/11/2016 NIRANJAN MOTA MD, Ot E11. 69 TYPE 2 DIABETES MELLITUS WITH OTHER SPEC 12/11/2016 NIRANJAN MOTA MD, Ot F32. 9 MAJOR DEPRESSIVE DISORDER, SINGLE EPISOD 12/11/2016 NIRANJAN MOTA MD, Ot F41. 9 ANXIETY DISORDER, UNSPECIFIED 12/11/2016 NIRANJAN MOTA MD, Ot H54. 7 UNSPECIFIED VISUAL LOSS 12/11/2016 NIRANJAN MOTA MD, Ot L02.611 CUTANEOUS ABSCESS OF RIGHT FOOT 12/11/2016 NIRANJAN MOTA MD, Ot L57. 0 ACTINIC KERATOSIS 12/11/2016 NIRANJAN MOTA MD, Ot M19. 91 PRIMARY OSTEOARTHRITIS, UNSPECIFIED SITE 12/11/2016 NIRANJAN MOTA MD, Ot M20. 41 OTHER HAMMER TOE(S) (ACQUIRED), RIGHT FO 12/11/2016 NIRANJAN MOTA MD, Ot M20. 42 OTHER HAMMER TOE(S) (ACQUIRED), LEFT REINALDO 12/11/2016 NIRANJAN MOTA MD, Ot M54. 9 DORSALGIA, UNSPECIFIED 12/11/2016 NIRANJAN MOTA MD, Ot M86. 9 OSTEOMYELITIS, UNSPECIFIED 12/11/2016 NIRANJAN MOTA MD, Ot S90.422A BLISTER (NONTHERMAL), LEFT GREAT TOE, IN 12/11/2016 NIRANJAN MOTA MD, Ot Z79. 84 LONGTERM (CURRENT) USE OF ORAL HYPOGLYC 12/11/2016 NIRANJAN MOTA MD, Ot Z79.899 OTHER HEAT AND FROST INSULATOR (CURRENT) DRUG THERAPY 12/11/2016 NIRANJAN MOTA MD, Ot Z87.891 PERSONAL HISTORY OF NICOTINE DEPENDENCE 12/11/2016 NIRANJAN MOTA MD, Ot Z89.421 ACQUIRED ABSENCE OF OTHER RIGHT TOE(S) 12/11/2016 NIRANJAN MOTA MD, Ot Z89.422 ACQUIRED ABSENCE OF OTHER LEFT TOE(S) 12/11/2016 NIRANJAN MOTA MD, Ot Z94. 4 LIVER TRANSPLANT STATUS 12/11/2016 NIRANJAN MOTA MD, Ot E11. 42 TYPE 2 DIABETES MELLITUS WITH DIABETIC P 12/11/2016 NIRANJAN MOTA MD, Ot E11.621 TYPE 2 DIABETES MELLITUS WITH FOOT ULCER 12/11/2016 NIRANJAN MOTA MD, Ot E11. 69 TYPE 2 DIABETES MELLITUS WITH OTHER SPEC 12/11/2016 NIRANJAN MOTA MD, Ot F32. 9 MAJOR DEPRESSIVE DISORDER, SINGLE EPISOD 12/11/2016 NIRANJAN MOTA MD, Ot F41. 9 ANXIETY DISORDER, UNSPECIFIED 12/11/2016 NIRANJAN MOTA MD, Ot H54. 7 UNSPECIFIED VISUAL LOSS 12/11/2016 NIRANJAN MOTA MD, Ot L02.611 CUTANEOUS ABSCESS OF RIGHT FOOT 12/11/2016 NIRANJAN MOTA MD, Ot L57. 0 ACTINIC KERATOSIS 12/11/2016 NIRANJAN MOTA MD, Ot M19. 91 PRIMARY OSTEOARTHRITIS, UNSPECIFIED SITE 12/11/2016 NIRANJAN MOTA MD, Ot M20. 41 OTHER HAMMER TOE(S) (ACQUIRED), RIGHT FO 12/11/2016 NIRANJAN MOTA MD, Ot M20. 42 OTHER HAMMER TOE(S) (ACQUIRED), LEFT REINALDO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 (CURRENT) USE OF ORAL HYPOGLYC 05/08/2019 SAHARA LONG MD, Ot Z87.891 PERSONAL HISTORY OF NICOTINE DEPENDENCE 05/08/2019 SAHARA LONG MD, Ot Z89.411 ACQUIRED ABSENCE OF RIGHT GREAT TOE 05/08/2019 SAHARA LONG MD, Ot Z89.421 ACQUIRED ABSENCE OF OTHER RIGHT TOE(S) 05/08/2019 SAHARA LONG MD, Ot Z89.422 ACQUIRED ABSENCE OF OTHER LEFT TOE(S) 05/08/2019 SAHARA LONG MD, Ot Z91. 14 PATIENT'S OTHER NONCOMPLIANCE WITH MEDIC 05/08/2019 SAHARA LONG MD, Ot Z94. 4 LIVER TRANSPLANT STATUS 05/08/2019 SAHARA LONG MD, Ot Z95. 5 PRESENCE OF CORONARY ANGIOPLASTY IMPLANT 05/10/2019 RENETTA AGUSTIN MD, Ot E11.42 TYPE 2 DIABETES MELLITUS WITH DIABETIC P 05/10/2019 RENETTA AGUSTIN MD, Ot E78 .5 HYPERLIPIDEMIA, UNSPECIFIED 05/10/2019 RENETTA AGUSTIN MD, Ot F12.90 CANNABIS USE, UNSPECIFIED, UNCOMPLICATED 05/10/2019 RENETTA AGUSTIN MD, Ot F15.90 OTHER STIMULANT USE, UNSPECIFIED, UNCOMP 05/10/2019 RENETTA AGUSTIN MD, Ot F32 .9 MAJOR DEPRESSIVE DISORDER, SINGLE EPISOD 05/10/2019 RENETTA AGUSTIN MD, Ot I11 .0 HYPERTENSIVE HEART DISEASE WITH HEART FA 05/10/2019 RENETTA AGUSTIN MD, Ot I21 .4 NON-ST ELEVATION (NSTEMI) MYOCARDIAL INF 05/10/2019 RENETTA AGUSTIN MD, Ot I25.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 05/10/2019 RENETTA AGUSTIN MD, Ot I25 .5 ISCHEMIC CARDIOMYOPATHY 05/10/2019 RENETTA AGUSTIN MD, Ot I49 .3 VENTRICULAR PREMATURE DEPOLARIZATION 05/10/2019 RENETTA AGUSTIN MD, Ot I50.22 CHRONIC SYSTOLIC (CONGESTIVE) HEART FAIL 05/10/2019 RENETTA AGUSTIN MD, Ot J44 .9 CHRONIC OBSTRUCTIVE PULMONARY DISEASE, U 05/10/2019 RENETTA AGUSTIN MD, Ot Z72.89 OTHER PROBLEMS RELATED TO LIFESTYLE 05/10/2019 RENETTA AGUSTIN MD, Ot Z79 .4 HEAT AND FROST INSULATOR (CURRENT) USE OF INSULIN 05/10/2019 RENETTA AGUSTIN MD, Ot Z87.891 PERSONAL HISTORY OF NICOTINE DEPENDENCE 05/10/2019 RENETTA AGUSTIN MD, Ot Z89.421 ACQUIRED ABSENCE OF OTHER RIGHT TOE(S) 05/10/2019 RENETTA AGUSTIN MD, Ot Z94 .4 LIVER TRANSPLANT STATUS 05/10/2019 RENETTA AGUSTIN MD, Ot Z95 .5 PRESENCE OF CORONARY ANGIOPLASTY IMPLANT 05/10/2019 RENETTA AGUSTIN MD, Ot E11.42 TYPE 2 DIABETES MELLITUS WITH DIABETIC P 05/10/2019 RENETTA AGUSTIN MD, Ot E78 .5 HYPERLIPIDEMIA, UNSPECIFIED 05/10/2019 RENETTA AGUSTIN MD, Ot F12.90 CANNABIS USE, UNSPECIFIED, UNCOMPLICATED 05/10/2019 RENETTA AGUSTIN MD, Ot F15.90 OTHER STIMULANT USE, UNSPECIFIED, UNCOMP 05/10/2019 RENETTA AGUSTIN MD, Ot F32 .9 MAJOR DEPRESSIVE DISORDER, SINGLE EPISOD 05/10/2019 RENETTA AGUSTIN MD, Ot I11 .0 HYPERTENSIVE HEART DISEASE WITH HEART FA 05/10/2019 RENETTA AGUSTIN MD, Ot I21 .4 NON-ST ELEVATION (NSTEMI) MYOCARDIAL INF 05/10/2019 RENETTA AGUSTIN MD, Ot I25.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 05/10/2019 RENETTA AGUSTIN MD, Ot I25 .5 ISCHEMIC CARDIOMYOPATHY 05/10/2019 RENETTA AGUSTIN MD, Ot I49 .3 VENTRICULAR PREMATURE DEPOLARIZATION 05/10/2019 RENETTA AGUSTIN MD, Ot I50.22 CHRONIC SYSTOLIC (CONGESTIVE) HEART FAIL 05/10/2019 RENETTA AGUSTIN MD, Ot J44 .9 CHRONIC OBSTRUCTIVE PULMONARY DISEASE, U 05/10/2019 RENETTA AGUSTIN MD, Ot Z72.89 OTHER PROBLEMS RELATED TO LIFESTYLE 05/10/2019 RENETTA AGUSTIN MD, Ot Z79 .4 LONGTERM (CURRENT) USE OF INSULIN 05/10/2019 RENETTA AGUSTIN MD, Ot Z87.891 PERSONAL HISTORY OF NICOTINE DEPENDENCE 05/10/2019 RENETTA AGUSTIN MD, Ot Z89.421 ACQUIRED ABSENCE OF OTHER RIGHT TOE(S) 05/10/2019 RENTETA AGUSTIN MD, Ot Z94 .4 LIVER TRANSPLANT STATUS 05/10/2019 RENETTA AGUSTIN MD, Ot Z95 .5 PRESENCE OF CORONARY ANGIOPLASTY IMPLANT 05/10/2019 RENETTA AGUSTIN MD, Ot E11.42 TYPE 2 DIABETES MELLITUS WITH DIABETIC P 05/10/2019 RENETTA AGUSTIN MD, Ot E78 .5 HYPERLIPIDEMIA, UNSPECIFIED 05/10/2019 RENETTA AGUSTIN MD, Ot F12.90 CANNABIS USE, UNSPECIFIED, UNCOMPLICATED 05/10/2019 RENETTA AGUSTIN MD, Ot F15.90 OTHER STIMULANT USE, UNSPECIFIED, UNCOMP 05/10/2019 RENETTA AGUSTIN MD, Ot F32 .9 MAJOR DEPRESSIVE DISORDER, SINGLE EPISOD 05/10/2019 RENETTA AGUSTIN MD, Ot I11 .0 HYPERTENSIVE HEART DISEASE WITH HEART FA 05/10/2019 RENETTA AGUSTIN MD, Ot I21 .4 NON-ST ELEVATION (NSTEMI) MYOCARDIAL INF 05/10/2019 RENETTA AGUSTIN MD, Ot I25.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 05/10/2019 RENETTA AGUSTIN MD, Ot I25 .5 ISCHEMIC CARDIOMYOPATHY 05/10/2019 RENETTA AGUSTIN MD, Ot I49 .3 VENTRICULAR PREMATURE DEPOLARIZATION 05/10/2019 RENETTA AGUSTIN MD, Ot I50.22 CHRONIC SYSTOLIC (CONGESTIVE) HEART FAIL 05/10/2019 RENETTA AGUSTIN MD, Ot J44 .9 CHRONIC OBSTRUCTIVE PULMONARY DISEASE, U 05/10/2019 RENETTA AGUSTIN MD, Ot Z72.89 OTHER PROBLEMS RELATED TO LIFESTYLE 05/10/2019 RENETTA AGUSTIN MD, Ot Z79 .4 HEAT AND FROST INSULATOR (CURRENT) USE OF INSULIN 05/10/2019 RENETTA AGUSTIN MD, Ot Z87.891 PERSONAL HISTORY OF NICOTINE DEPENDENCE 05/10/2019 RENETTA AGUSTIN MD, Ot Z89.421 ACQUIRED ABSENCE OF OTHER RIGHT TOE(S) 05/10/2019 RENETTA AGUSTIN MD, Ot Z94 .4 LIVER TRANSPLANT STATUS 05/10/2019 RENETTA AGUSTIN MD Ot Z95 .5 PRESENCE OF CORONARY ANGIOPLASTY IMPLANT 05/10/2019 BATOOL DPM, ALLY Q Ot 730. 27 OSTEOMYELITIS NOS-ANKLE 05/10/2019 BATOOL DPM, ALLY Q Ot 730. 27 OSTEOMYELITIS NOS-ANKLE 05/10/2019 BATOOL DPM, ALLY Q Ot V72. 83 EXAM PRE-OPERATIVE NEC 05/10/2019 BATOOL DPM, ALLY Q Ot V74. 8 SCREEN-BACTERIAL DIS NEC 05/10/2019 BATOOL DPM, ALLY Q Ot 707. 15 ULCER OF OTHER PART OF FOOT 05/10/2019 BATOOL DPM, ALLY Q Ot 730. 27 OSTEOMYELITIS NOS-ANKLE 05/10/2019 BATOOL DPM, ALLY Q Ot V72. 63 PRE-PROCEDURAL LABORATORY EXAMINATION 05/10/2019 BATOOL DPM, ALLY Q Ot V74. 8 SCREEN-BACTERIAL DIS NEC 05/10/2019 Ot M86.9 OSTE OMYELITIS, UNSPECIFIED 05/10/2019 Ot M86.9 OSTE OMYELITIS, UNSPECIFIED 05/10/2019 Ot Z01.812 EN COUNTER FOR PREPROCEDURAL LABORATORY E 05/10/2019 Ot Z11.2 ENCO UNTER FOR SCREENING FOR OTHER BACTER 05/10/2019 BATOOL DPM, ALLY Q Ot M86.471 CHRONIC OSTEOMYELITIS W DRAINING SINUS, 05/10/2019 BATOOL DPM, ALLY Q Ot M86.672 OTHER CHRONIC OSTEOMYELITIS, LEFT ANKLE 05/10/2019 BATOOL DPM, ALLY Q Ot Z20. 6 CONTACT W AND (SUSPECTED) EXPOSURE TO HU 05/10/2019 JOSE ZAVALA DO Ot Z01.818 ENCOUNTER FOR OTHER PREPROCEDURAL EXAMIN 05/10/2019 ZAVALAJOSE TIPTON DO D Ot Z12. 11 ENCOUNTER FOR SCREENING FOR MALIGNANT NE 05/10/2019 BATOOL DPM, ALLY Q Ot 730. 27 OSTEOMYELITIS NOS-ANKLE 05/10/2019 BATOOL DPM, ALLY Q Ot 730. 27 OSTEOMYELITIS NOS-ANKLE 05/10/2019 BATOOL DPM, ALLY Q Ot V72. 83 EXAM PRE-OPERATIVE NEC 05/10/2019 BATOOL DPM, ALLY Q Ot V74. 8 SCREEN-BACTERIAL DIS NEC 05/10/2019 BATOOL DPM, ALLY Q Ot 707. 15 ULCER OF OTHER PART OF FOOT 05/10/2019 BATOOL DPM, ALLY Q Ot 730. 27 OSTEOMYELITIS NOS-ANKLE 05/10/2019 BATOOL DPM, ALLY Q Ot V72. 63 PRE-PROCEDURAL LABORATORY EXAMINATION 05/10/2019 BATOOL DPM, ALLY Q Ot V74. 8 SCREEN-BACTERIAL DIS NEC 05/10/2019 Ot M86.9 OSTE OMYELITIS, UNSPECIFIED 05/10/2019 Ot M86.9 OSTE OMYELITIS, UNSPECIFIED 05/10/2019 Ot Z01.812 EN COUNTER FOR PREPROCEDURAL LABORATORY E 05/10/2019 Ot Z11.2 ENCO UNTER FOR SCREENING FOR OTHER BACTER 05/10/2019 BATOOL DPM, ALLY Q Ot M86.471 CHRONIC OSTEOMYELITIS W DRAINING SINUS, 05/10/2019 BATOOL DPM, ALLY Q Ot M86.672 OTHER CHRONIC OSTEOMYELITIS, LEFT ANKLE 05/10/2019 BATOOL DPM, ALLY Q Ot Z20. 6 CONTACT W AND (SUSPECTED) EXPOSURE TO HU 05/10/2019 ZAVALA DO JOSE D Ot Z01.818 ENCOUNTER FOR OTHER PREPROCEDURAL EXAMIN 05/10/2019 ZAVALA DO JOSE D Ot Z12. 11 ENCOUNTER FOR SCREENING FOR MALIGNANT NE 07/05/2019 TRISTIN BURDICK Ot I11.0 HYPERTENSIVE HEART DISEASE WITH HEART FA 07/05/2019 TRISTIN BURDICK Ot I25.10 ATHSCL HEART DISEASE OF [place] CORONARY 07/05/2019 TRISTIN BURDICK Ot I50.9 HEART FAILURE, UNSPECIFIED 07/05/2019 TRISTIN BURDICK Ot I65.23 OCCLUSION AND STENOSIS OF BILATERAL MANNING 07/10/2019 TRISTIN BURDICK Ot I11.0 HYPERTENSIVE HEART DISEASE WITH HEART FA 07/10/2019 TRISTIN BURDICK Ot I25.10 ATHSCL HEART DISEASE OF [place] CORONARY 07/10/2019 TRISTIN BURDICK Ot I50.9 HEART FAILURE, UNSPECIFIED 07/10/2019 TRISTIN BURDICK Ot I65.23 OCCLUSION AND STENOSIS OF BILATERAL [place]ANN[place] 07/29/2019 TRISTIN BURDICK Ot I11.0 HYPERTENSIVE HEART DISEASE WITH HEART FA 07/29/2019 TRISTIN BURDICK Ot I25.10 ATHSCL HEART DISEASE OF [place] CORONARY 07/29/2019 TRISTIN BURDICK Ot I50.9 HEART FAILURE, UNSPECIFIED 07/29/2019 TRISTIN BURDICK Ot I65.23 OCCLUSION AND STENOSIS OF BILATERAL MANNING 08/30/2019 GAYLE-MICHAEL PA, TRISTIN K 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 08/30/2019 [facility] PA, TRISTIN K Ot I10 ESSENTIAL (PRIMARY) HYPERTENSION 08/30/2019 [facility] PA, TRISTIN Kinney Ot I25.10 ATHSCL HEART DISEASE OF [place] CORONARY 08/30/2019 [facility] PA, TRISTIN Kinney Ot I50.9 HEART FAILURE, UNSPECIFIED 08/30/2019 [facility] PA, TRISTIN K Ot I65.23 OCCLUSION AND STENOSIS OF BILATERAL MANNING 09/07/2019 [facility] PA, TRISTIN K Ot I11.0 HYPERTENSIVE HEART DISEASE WITH HEART FA 09/07/2019 [facility] GARETH, TRISTIN Kinney Ot I25.10 ATHSCL HEART DISEASE OF [place] CORONARY 09/07/2019 [facility] PA, TRISTIN Kinney Ot I50.9 HEART FAILURE, UNSPECIFIED 09/07/2019 [facility] PA, TRISTIN Kinney Ot I65.23 OCCLUSION AND STENOSIS OF BILATERAL MANNING 09/07/2019 [facility] PA, TRISTIN Kinney 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 09/07/2019 [facility] PA, TRISTIN Kinney Ot I10 ESSENTIAL (PRIMARY) HYPERTENSION 09/07/2019 [facility] GARETH, TRISTIN K Ot I25.10 ATHSCL HEART DISEASE OF [place] CORONARY 09/07/2019 [facility] PA, TRISTIN K Ot I50.9 HEART FAILURE, UNSPECIFIED 09/07/2019 [facility] PA, TRISTIN K Ot I65.23 OCCLUSION AND STENOSIS OF BILATERAL MANNING 09/07/2019 BATOOL DPM, ALLY Q Ot 707. 15 ULCER OF OTHER PART OF FOOT 09/07/2019 BATOOL DPM, ALLY Q Ot 730. 27 OSTEOMYELITIS NOS-ANKLE 09/07/2019 BATOOL DPM, ALLY Q Ot V72. 63 PRE-PROCEDURAL LABORATORY EXAMINATION 09/07/2019 BATOOL DPM, ALLY Q Ot V74. 8 SCREEN-BACTERIAL DIS NEC 09/07/2019 Ot M86.9 OSTE OMYELITIS, UNSPECIFIED 09/07/2019 Ot M86.9 OSTE OMYELITIS, UNSPECIFIED 09/07/2019 Ot Z01.812 EN COUNTER FOR PREPROCEDURAL LABORATORY E 09/07/2019 Ot Z11.2 ENCO UNTER FOR SCREENING FOR OTHER BACTER 09/07/2019 BATOOL DPM, ALLY Q Ot M86.471 CHRONIC OSTEOMYELITIS W DRAINING SINUS, 09/07/2019 BATOOL DPM, ALLY Q Ot M86.672 OTHER CHRONIC OSTEOMYELITIS, LEFT ANKLE 09/07/2019 BATOOL DPM, ALLY Q Ot Z20. 6 CONTACT W AND (SUSPECTED) EXPOSURE TO HU 09/07/2019 ZAVALA DOJOSE D Ot Z01.818 ENCOUNTER FOR OTHER PREPROCEDURAL EXAMIN 09/07/2019 ZAVALA JOSE MONTIEL Ot Z12. 11 ENCOUNTER FOR SCREENING FOR MALIGNANT NE 09/07/2019 TRISTIN BURDICK Ot I11.0 HYPERTENSIVE HEART DISEASE WITH HEART FA 09/07/2019 TRISTIN BURDICK Ot I25.10 ATHSCL HEART DISEASE OF [place] CORONARY 09/07/2019 TRISTIN BURDICK Ot I50.9 HEART FAILURE, UNSPECIFIED 09/07/2019 TRISTIN BURDICK Ot I65.23 OCCLUSION AND STENOSIS OF BILATERAL MANNING 09/07/2019 TRISTIN BURDICK 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 09/07/2019 TRISTIN BURDICK Ot I10 ESSENTIAL (PRIMARY) HYPERTENSION 09/07/2019 TRISTIN BURDICK Ot I25.10 ATHSCL HEART DISEASE OF [place] CORONARY 09/07/2019 TRISTIN BURDICK Ot I50.9 HEART FAILURE, UNSPECIFIED 09/07/2019 TRISTIN BURDICK Ot I65.23 OCCLUSION AND STENOSIS OF BILATERAL MANNING 09/08/2019 SAHARA LONG MD Ot E11. 9 TYPE 2 DIABETES MELLITUS WITHOUT COMPLIC 09/08/2019 SAHARA LONG MD Ot E78. 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 0 HYPERTENSIVE HEART DISEASE WITH HEART FA 09/08/2019 SAHARA LONG MD Ot I25. 10 ATHSCL HEART DISEASE OF [place] CORONARY 09/08/2019 SAHARA LONG MD Ot I25. 2 OLD MYOCARDIAL INFARCTION 09/08/2019 SAHARA LONG MD Ot I25. 5 ISCHEMIC CARDIOMYOPATHY 09/08/2019 SAHARA LONG MD Ot I50. 22 CHRONIC SYSTOLIC (CONGESTIVE) HEART FAIL 09/08/2019 SAHARA LONG MD Ot I50. 9 HEART FAILURE, UNSPECIFIED 09/08/2019 SAHARA LONG MD Ot I65. 23 OCCLUSION AND STENOSIS OF BILATERAL MANNING 09/08/2019 SAHARA LONG MD Ot Z79. 4 LONGTERM (CURRENT) USE OF INSULIN 09/08/2019 SAHARA LONG MD Ot Z79. 82 LONGTERM (CURRENT) USE OF ASPIRIN 09/08/2019 SAHARA LONG MD Ot Z87.891 PERSONAL HISTORY OF NICOTINE DEPENDENCE 09/08/2019 SAHARA LONG MD Ot Z90. 49 ACQUIRED ABSENCE OF OTHER SPECIFIED PART 09/08/2019 SAHARA LONG MD Ot Z94. 4 LIVER TRANSPLANT STATUS 09/09/2019 SAHARA LONG MD Ot E11. 9 TYPE 2 DIABETES MELLITUS WITHOUT COMPLIC 09/09/2019 SAHARA LONG MD Ot E78. 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 0 HYPERTENSIVE HEART DISEASE WITH HEART FA 09/09/2019 SAHARA LONG MD Ot I25. 10 ATHSCL HEART DISEASE OF [place] CORONARY 09/09/2019 SAHARA LONG MD Ot I25. 2 OLD MYOCARDIAL INFARCTION 09/09/2019 SAHARA LONG MD Ot I50. 9 HEART FAILURE, UNSPECIFIED 09/09/2019 SAHARA LONG MD Ot I65. 23 OCCLUSION AND STENOSIS OF BILATERAL MANNING 09/09/2019 SAHARA LONG MD Ot Z79. 4 HEAT AND FROST INSULATOR (CURRENT) USE OF INSULIN 09/09/2019 SAHARA LONG MD Ot Z79. 82 HEAT AND FROST INSULATOR (CURRENT) USE OF ASPIRIN 09/09/2019 SAHARA LONG MD Ot Z87.891 PERSONAL HISTORY OF NICOTINE DEPENDENCE 09/09/2019 SAHARA LONG MD Ot Z90. 49 ACQUIRED ABSENCE OF OTHER SPECIFIED PART 09/09/2019 SAHARA LONG MD Ot Z94. 4 LIVER TRANSPLANT STATUS 09/09/2019 BATOOL DPM, ALLY Q Ot 707. 15 ULCER OF OTHER PART OF FOOT 09/09/2019 BATOOL DPM, ALLY Q Ot 730. 27 OSTEOMYELITIS NOS-ANKLE 09/09/2019 BATOOL DPM, ALLY Q Ot V72. 63 PRE-PROCEDURAL LABORATORY EXAMINATION 09/09/2019 BATOOL DPM, ALLY Q Ot V74. 8 SCREEN-BACTERIAL DIS NEC 09/09/2019 Ot M86.9 OSTE OMYELITIS, UNSPECIFIED 09/09/2019 Ot M86.9 OSTE OMYELITIS, UNSPECIFIED 09/09/2019 Ot Z01.812 EN COUNTER FOR PREPROCEDURAL LABORATORY E 09/09/2019 Ot Z11.2 ENCO UNTER FOR SCREENING FOR OTHER BACTER 09/09/2019 BATOOL DPM, ALLY Q Ot M86.471 CHRONIC OSTEOMYELITIS W DRAINING SINUS, 09/09/2019 BATOOL DPM, ALLY Q Ot M86.672 OTHER CHRONIC OSTEOMYELITIS, LEFT ANKLE 09/09/2019 BATOOL DPM, ALLY Q Ot Z20. 6 CONTACT W AND (SUSPECTED) EXPOSURE TO HU 09/09/2019 JOSE ZAVALA DO Ot Z01.818 ENCOUNTER FOR OTHER PREPROCEDURAL EXAMIN 09/09/2019 JOSE ZAVALA DO Ot Z12. 11 ENCOUNTER FOR SCREENING FOR MALIGNANT NE 09/09/2019 TRISTIN BURDICK Ot I11.0 HYPERTENSIVE HEART DISEASE WITH HEART FA 09/09/2019 TRISTIN BURDICK Ot I25.10 ATHSCL HEART DISEASE OF [place] CORONARY 09/09/2019 TRISTIN BURDICK Ot I50.9 HEART FAILURE, UNSPECIFIED 09/09/2019 TRISTIN BURDICK Ot I65.23 OCCLUSION AND STENOSIS OF BILATERAL MANNING 09/09/2019 TRISTIN BURDICK 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 09/09/2019 TRISTIN BURDICK Ot I10 ESSENTIAL (PRIMARY) HYPERTENSION 09/09/2019 TRISTIN BURDICK Ot I25.10 ATHSCL HEART DISEASE OF [place] CORONARY 09/09/2019 TRISTIN BURDICK Ot I50.9 HEART FAILURE, UNSPECIFIED 09/09/2019 TRISTIN BURDICK Ot I65.23 OCCLUSION AND STENOSIS OF BILATERAL MANNING 09/09/2019 BATOOL DPM, ALLY Q Ot 707. 15 ULCER OF OTHER PART OF FOOT 09/09/2019 BATOOL DPM, ALLY Q Ot 730. 27 OSTEOMYELITIS NOS-ANKLE 09/09/2019 BATOOL DPM, ALLY Q Ot V72. 63 PRE-PROCEDURAL LABORATORY EXAMINATION 09/09/2019 BATOOL DPM, ALLY Q Ot V74. 8 SCREEN-BACTERIAL DIS NEC 09/09/2019 Ot M86.9 OSTE OMYELITIS, UNSPECIFIED 09/09/2019 Ot M86.9 OSTE OMYELITIS, UNSPECIFIED 09/09/2019 Ot Z01.812 EN COUNTER FOR PREPROCEDURAL LABORATORY E 09/09/2019 Ot Z11.2 ENCO UNTER FOR SCREENING FOR OTHER BACTER 09/09/2019 BATOOL DPM, ALLY Q Ot M86.471 CHRONIC OSTEOMYELITIS W DRAINING SINUS, 09/09/2019 BATOOL DPM, ALLY Q Ot M86.672 OTHER CHRONIC OSTEOMYELITIS, LEFT ANKLE 09/09/2019 BATOOL DPM, ALLY Q Ot Z20. 6 CONTACT W AND (SUSPECTED) EXPOSURE TO HU 09/09/2019 JOSE ZAVALA DO Ot Z01.818 ENCOUNTER FOR OTHER PREPROCEDURAL EXAMIN 09/09/2019 JOSE ZAVALA DO Ot Z12. 11 ENCOUNTER FOR SCREENING FOR MALIGNANT NE 09/09/2019 TRISTIN BURDICK Ot I11.0 HYPERTENSIVE HEART DISEASE WITH HEART FA 09/09/2019 TRISTIN BURDICK Ot I25.10 ATHSCL HEART DISEASE OF [place] CORONARY 09/09/2019 TRISTIN BURDICK Ot I50.9 HEART FAILURE, UNSPECIFIED 09/09/2019 TRISTIN BURDICK Ot I65.23 OCCLUSION AND STENOSIS OF BILATERAL MANNING 09/09/2019 TRISTIN BURDICK 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 09/09/2019 TRISTIN BURDICK Ot I10 ESSENTIAL (PRIMARY) HYPERTENSION 09/09/2019 TRISTIN BURDICK Ot I25.10 ATHSCL HEART DISEASE OF [place] CORONARY 09/09/2019 TRISTIN BURDICK Ot I50.9 HEART FAILURE, UNSPECIFIED 09/09/2019 TRISTIN BURDICK Ot I65.23 OCCLUSION AND STENOSIS OF BILATERAL MANNING 09/13/2019 SAHARA LONG MD Ot E11. 9 TYPE 2 DIABETES MELLITUS WITHOUT COMPLIC 09/13/2019 SAHARA LONG MD Ot E78. 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 0 HYPERTENSIVE HEART DISEASE WITH HEART FA 09/13/2019 SAHARA LONG MD, Ot I25. 10 ATHSCL HEART DISEASE OF [place] CORONARY 09/13/2019 SAHARA LONG MD, Ot I25. 2 OLD MYOCARDIAL INFARCTION 09/13/2019 SAHARA LONG MD, Ot I50. 9 HEART FAILURE, UNSPECIFIED 09/13/2019 SAHARA LONG MD, Ot I65. 23 OCCLUSION AND STENOSIS OF BILATERAL MANNING 09/13/2019 SAHARA LONG MD, Ot Z79. 4 LONGTERM (CURRENT) USE OF INSULIN 09/13/2019 SAHARA LONG MD Ot Z79. 82 HEAT AND FROST INSULATOR (CURRENT) USE OF ASPIRIN 09/13/2019 SAHARA LONG MD, Ot Z87.891 PERSONAL HISTORY OF NICOTINE DEPENDENCE 09/13/2019 SAHARA LONG MD, Ot Z90. 49 ACQUIRED ABSENCE OF OTHER SPECIFIED PART 09/13/2019 SAHARA LONG MD, Ot Z94. 4 LIVER TRANSPLANT STATUS 10/03/2019 BATOOL DPM, ALLY Q Ot 707. 15 ULCER OF OTHER PART OF FOOT 10/03/2019 BATOOL DPM, ALLY Q Ot 730. 27 OSTEOMYELITIS NOS-ANKLE 10/03/2019 BATOOL DPM, ALLY Q Ot V72. 63 PRE-PROCEDURAL LABORATORY EXAMINATION 10/03/2019 BATOOL DPM, ALLY Q Ot V74. 8 SCREEN-BACTERIAL DIS NEC 10/03/2019 Ot M86.9 OSTE OMYELITIS, UNSPECIFIED 10/03/2019 Ot M86.9 OSTE OMYELITIS, UNSPECIFIED 10/03/2019 Ot Z01.812 EN COUNTER FOR PREPROCEDURAL LABORATORY E 10/03/2019 Ot Z11.2 ENCO UNTER FOR SCREENING FOR OTHER BACTER 10/03/2019 BATOOL DPM, ALLY Q Ot M86.471 CHRONIC OSTEOMYELITIS W DRAINING SINUS, 10/03/2019 BATOOL DPM, ALLY Q Ot M86.672 OTHER CHRONIC OSTEOMYELITIS, LEFT ANKLE 10/03/2019 BATOOL DPM, ALLY Q Ot Z20. 6 CONTACT W AND (SUSPECTED) EXPOSURE TO HU 10/03/2019 JOSE ZAVALA DO Ot Z01.818 ENCOUNTER FOR OTHER PREPROCEDURAL EXAMIN 10/03/2019 ZAVALA JOSE MONTIEL Ot Z12. 11 ENCOUNTER FOR SCREENING FOR MALIGNANT NE 10/03/2019 TRISTIN BURDICK Ot I11.0 HYPERTENSIVE HEART DISEASE WITH HEART FA 10/03/2019 TRISTIN BURDICK Ot I25.10 ATHSCL HEART DISEASE OF [place] CORONARY 10/03/2019 TRISTIN BURDICK Ot I50.9 HEART FAILURE, UNSPECIFIED 10/03/2019 TRISTIN BURDICK Ot I65.23 OCCLUSION AND STENOSIS OF BILATERAL MANNING 10/03/2019 LELE SERVIN, TRISTIN Kinney 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 10/03/2019 TRISTIN BURDICK Ot I10 ESSENTIAL (PRIMARY) HYPERTENSION 10/03/2019 TRISTIN BURDICK Ot I25.10 ATHSCL HEART DISEASE OF [place] CORONARY 10/03/2019 TRISTIN BURDICK Ot I50.9 HEART FAILURE, UNSPECIFIED 10/03/2019 TRISTIN BURDICK Ot I65.23 OCCLUSION AND STENOSIS OF BILATERAL MANNING 10/03/2019 BATOOL DPM, ALLY Q Ot 707. 15 ULCER OF OTHER PART OF FOOT 10/03/2019 BATOOL DPM, ALLY Q Ot 730. 27 OSTEOMYELITIS NOS-ANKLE 10/03/2019 BATOOL DPM, ALLY Q Ot V72. 63 PRE-PROCEDURAL LABORATORY EXAMINATION 10/03/2019 BATOOL DPM, ALLY Q Ot V74. 8 SCREEN-BACTERIAL DIS NEC 10/03/2019 Ot M86.9 OSTE OMYELITIS, UNSPECIFIED 10/03/2019 Ot M86.9 OSTE OMYELITIS, UNSPECIFIED 10/03/2019 Ot Z01.812 EN COUNTER FOR PREPROCEDURAL LABORATORY E 10/03/2019 Ot Z11.2 ENCO UNTER FOR SCREENING FOR OTHER BACTER 10/03/2019 BATOOL DPM, ALLY Q Ot M86.471 CHRONIC OSTEOMYELITIS W DRAINING SINUS, 10/03/2019 BATOOL DPM, ALLY Q Ot M86.672 OTHER CHRONIC OSTEOMYELITIS, LEFT ANKLE 10/03/2019 BATOOL DPM, ALLY Q Ot Z20. 6 CONTACT W AND (SUSPECTED) EXPOSURE TO HU 10/03/2019 ZAVALA DOTREVERTT D Ot Z01.818 ENCOUNTER FOR OTHER PREPROCEDURAL EXAMIN 10/03/2019 ZAVALA DO, JOSE D Ot Z12. 11 ENCOUNTER FOR SCREENING FOR MALIGNANT NE 10/03/2019 TRISTIN BURDICK Ot I11.0 HYPERTENSIVE HEART DISEASE WITH HEART FA 10/03/2019 TRISTIN BURDICK Ot I25.10 ATHSCL HEART DISEASE OF [place] CORONARY 10/03/2019 TRISTIN BURDICK Ot I50.9 HEART FAILURE, UNSPECIFIED 10/03/2019 TRISTIN BURDICK Ot I65.23 OCCLUSION AND STENOSIS OF BILATERAL [place] 10/03/2019 TRISTIN BURDICK 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 10/03/2019 TRISTIN BURDICK Ot I10 ESSENTIAL (PRIMARY) HYPERTENSION 10/03/2019 TRISTIN BURDICK Ot I25.10 ATHSCL HEART DISEASE OF [place] CORONARY 10/03/2019 TRISTIN BURDICK Ot I50.9 HEART FAILURE, UNSPECIFIED 10/03/2019 TRISTIN BURDICK Ot I65.23 OCCLUSION AND STENOSIS OF BILATERAL [place] 10/03/2019 BATOOL DPM, ALLY Q Ot 707. 15 ULCER OF OTHER PART OF FOOT 10/03/2019 BATOOL DPM, ALLY Q Ot 730. 27 OSTEOMYELITIS NOS-ANKLE 10/03/2019 BATOOL DPM, ALLY Q Ot V72. 63 PRE-PROCEDURAL LABORATORY EXAMINATION 10/03/2019 BATOOL DPM, ALLY Q Ot V74. 8 SCREEN-BACTERIAL DIS NEC 10/03/2019 Ot M86.9 OSTE OMYELITIS, UNSPECIFIED 10/03/2019 Ot M86.9 OSTE OMYELITIS, UNSPECIFIED 10/03/2019 Ot Z01.812 EN COUNTER FOR PREPROCEDURAL LABORATORY E 10/03/2019 Ot Z11.2 ENCO UNTER FOR SCREENING FOR OTHER BACTER 10/03/2019 BATOOL DPM, ALLY Q Ot M86.471 CHRONIC OSTEOMYELITIS W DRAINING SINUS, 10/03/2019 BATOOL DPM, ALLY Q Ot M86.672 OTHER CHRONIC OSTEOMYELITIS, LEFT ANKLE 10/03/2019 BATOOL DPM, ALLY Q Ot Z20. 6 CONTACT W AND (SUSPECTED) EXPOSURE TO HU 10/03/2019 JOSE ZAVALA DO Ot Z01.818 ENCOUNTER FOR OTHER PREPROCEDURAL EXAMIN 10/03/2019 JOSE ZAVALA DO Ot Z12. 11 ENCOUNTER FOR SCREENING FOR MALIGNANT NE 10/03/2019 TRISTIN BURDICK Ot I11.0 HYPERTENSIVE HEART DISEASE WITH HEART FA 10/03/2019 TRISTIN BURDICK Ot I25.10 ATHSCL HEART DISEASE OF [place] CORONARY 10/03/2019 TRISTIN BURDICK Ot I50.9 HEART FAILURE, UNSPECIFIED 10/03/2019 TRISTIN BURDICK Ot I65.23 OCCLUSION AND STENOSIS OF BILATERAL [place] 10/03/2019 TRISTIN UBRDICK 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 10/03/2019 TRISTIN BURDICK Ot I10 ESSENTIAL (PRIMARY) HYPERTENSION 10/03/2019 TRISTIN BURDICK Ot I25.10 ATHSCL HEART DISEASE OF [place] CORONARY 10/03/2019 TRISTIN BURDICK Ot I50.9 HEART FAILURE, UNSPECIFIED 10/03/2019 TRISTIN BURDICK Ot I65.23 OCCLUSION AND STENOSIS OF BILATERAL [place] 10/03/2019 BATOOL DPM, ALLY Q Ot 707. 15 ULCER OF OTHER PART OF FOOT 10/03/2019 BATOOL DPM, ALLY Q Ot 730. 27 OSTEOMYELITIS NOS-ANKLE 10/03/2019 BATOOL DPM, ALLY Q Ot V72. 63 PRE-PROCEDURAL LABORATORY EXAMINATION 10/03/2019 BATOOL DPM, ALLY Q Ot V74. 8 SCREEN-BACTERIAL DIS NEC 10/03/2019 Ot M86.9 OSTE OMYELITIS, UNSPECIFIED 10/03/2019 Ot M86.9 OSTE OMYELITIS, UNSPECIFIED 10/03/2019 Ot Z01.812 EN COUNTER FOR PREPROCEDURAL LABORATORY E 10/03/2019 Ot Z11.2 ENCO UNTER FOR SCREENING FOR OTHER BACTER 10/03/2019 BATOOL DPM, ALLY Q Ot M86.471 CHRONIC OSTEOMYELITIS W DRAINING SINUS, 10/03/2019 BATOOL DPM, ALLY Q Ot M86.672 OTHER CHRONIC OSTEOMYELITIS, LEFT ANKLE 10/03/2019 BATOOL DPM, ALLY Q Ot Z20. 6 CONTACT W AND (SUSPECTED) EXPOSURE TO HU 10/03/2019 JOSE ZAVALA DO Ot Z01.818 ENCOUNTER FOR OTHER PREPROCEDURAL EXAMIN 10/03/2019 JOSE ZAVALA DO Ot Z12. 11 ENCOUNTER FOR SCREENING FOR MALIGNANT NE 10/03/2019 TRISTIN BURDICK Ot I11.0 HYPERTENSIVE HEART DISEASE WITH HEART FA 10/03/2019 TRISTIN BURDICK Ot I25.10 ATHSCL HEART DISEASE OF [place] CORONARY 10/03/2019 TRISTIN BURDICK Ot I50.9 HEART FAILURE, UNSPECIFIED 10/03/2019 TRISTIN BURDICK Ot I65.23 OCCLUSION AND STENOSIS OF [place]ILATERAL [place] 10/03/2019 TRISTIN BURDICK 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 10/03/2019 TRISTIN BURDICK Ot I10 ESSENTIAL (PRIMARY) HYPERTENSION 10/03/2019 TRISTIN BURDICK Ot I25.10 ATHSCL HEART DISEASE OF [place] CORONARY 10/03/2019 TRISTIN BURDICK Ot I50.9 HEART FAILURE, UNSPECIFIED 10/03/2019 TRISTIN BURDICK Ot I65.23 OCCLUSION AND STENOSIS OF BILATERAL [place] 10/03/2019 BATOOL DPM, ALLY Q Ot 707. 15 ULCER OF OTHER PART OF FOOT 10/03/2019 BATOOL DPM, ALLY Q Ot 730. 27 OSTEOMYELITIS NOS-ANKLE 10/03/2019 BATOOL DPM, ALLY Q Ot V72. 63 PRE-PROCEDURAL LABORATORY EXAMINATION 10/03/2019 BATOOL DPM, ALLY Q Ot V74. 8 SCREEN-BACTERIAL DIS NEC 10/03/2019 Ot M86.9 OSTE OMYELITIS, UNSPECIFIED 10/03/2019 Ot M86.9 OSTE OMYELITIS, UNSPECIFIED 10/03/2019 Ot Z01.812 EN COUNTER FOR PREPROCEDURAL LABORATORY E 10/03/2019 Ot Z11.2 ENCO UNTER FOR SCREENING FOR OTHER BACTER 10/03/2019 BATOOL DPM, ALLY Q Ot M86.471 CHRONIC OSTEOMYELITIS W DRAINING SINUS, 10/03/2019 BATOOL DPM, ALLY Q Ot M86.672 OTHER CHRONIC OSTEOMYELITIS, LEFT ANKLE 10/03/2019 BATOOL DPM, ALLY Q Ot Z20. 6 CONTACT W AND (SUSPECTED) EXPOSURE TO HU 10/03/2019 JOSE ZAVALA DO Ot Z01.818 ENCOUNTER FOR OTHER PREPROCEDURAL EXAMIN 10/03/2019 JOSE ZAVALA DO Ot Z12. 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 15 ULCER OF OTHER PART OF FOOT 10/10/2019 BATOOL DPM, ALLY Q Ot 730. 27 OSTEOMYELITIS NOS-ANKLE 10/10/2019 BATOOL DPM, ALLY Q Ot V72. 63 PRE-PROCEDURAL LABORATORY EXAMINATION 10/10/2019 BATOOL DPM, ALLY Q Ot V74. 8 SCREEN-BACTERIAL DIS NEC 10/10/2019 Ot M86.9 OSTE OMYELITIS, UNSPECIFIED 10/10/2019 Ot M86.9 OSTE OMYELITIS, UNSPECIFIED 10/10/2019 Ot Z01.812 EN COUNTER FOR PREPROCEDURAL LABORATORY E 10/10/2019 Ot Z11.2 ENCO UNTER FOR SCREENING FOR OTHER BACTER 10/10/2019 BATOOL DPM, ALLY Q Ot M86.471 CHRONIC OSTEOMYELITIS W DRAINING SINUS, 10/10/2019 BATOOL DPM, ALLY Q Ot M86.672 OTHER CHRONIC OSTEOMYELITIS, LEFT ANKLE 10/10/2019 BATOOL DPM, ALLY Q Ot Z20. 6 CONTACT W AND (SUSPECTED) EXPOSURE TO HU 10/10/2019 JOSE ZAVALA DO Ot Z01.818 ENCOUNTER FOR OTHER PREPROCEDURAL EXAMIN 10/10/2019 JOSE ZAVALA DO Ot Z12. 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 9 TYPE 2 DIABETES MELLITUS WITHOUT COMPLIC 11/04/2019 SAHARA LONG MD Ot E78. 2 MIXED HYPERLIPIDEMIA 11/04/2019 SAHARA LONG MD Ot I08. 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 0 HYPERTENSIVE HEART DISEASE WITH HEART FA 11/04/2019 SAHARA LONG MD Ot I25. 10 ATHSCL HEART DISEASE OF [place] CORONARY 11/04/2019 SAHARA LONG MD Ot I25. 2 OLD MYOCARDIAL INFARCTION 11/04/2019 SAHARA LONG MD Ot I25. 5 ISCHEMIC CARDIOMYOPATHY 11/04/2019 SAHARA LONG MD Ot I50. 22 CHRONIC SYSTOLIC (CONGESTIVE) HEART FAIL 11/04/2019 SAHARA LONG MD Ot I65. 23 OCCLUSION AND STENOSIS OF BILATERAL MANNING 11/04/2019 SAHARA LONG MD Ot Z79. 4 LONGTERM (CURRENT) USE OF INSULIN 11/04/2019 SAHARA LONG MD Ot Z79. 82 HEAT AND FROST INSULATOR (CURRENT) USE OF ASPIRIN 11/04/2019 SAHARA LONG MD Ot Z87.891 PERSONAL HISTORY OF NICOTINE DEPENDENCE 11/04/2019 SAHARA LONG MD Ot Z90. 49 ACQUIRED ABSENCE OF OTHER SPECIFIED PART 11/04/2019 SAHARA LONG MD Ot Z94. 4 LIVER TRANSPLANT STATUS 11/09/2019 SAHARA LONG MD Ot E11. 9 TYPE 2 DIABETES MELLITUS WITHOUT COMPLIC 11/09/2019 SAHARA LONG MD Ot E78. 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 0 HYPERTENSIVE HEART DISEASE WITH HEART FA 11/09/2019 SAHARA LONG MD Ot I25. 10 ATHSCL HEART DISEASE OF [place] CORONARY 11/09/2019 SAHARA LONG MD Ot I25. 2 OLD MYOCARDIAL INFARCTION 11/09/2019 SAHARA LONG MD Ot I25. 5 ISCHEMIC CARDIOMYOPATHY 11/09/2019 SAHARA LONG MD Ot I50. 22 CHRONIC SYSTOLIC (CONGESTIVE) HEART FAIL 11/09/2019 SAHARA LONG MD, Ot I65. 23 OCCLUSION AND STENOSIS OF BILATERAL MANNING 11/09/2019 SAHARA LONG MD, Ot Z79. 4 LONGTERM (CURRENT) USE OF INSULIN 11/09/2019 SAHARA LONG MD, Ot Z79. 82 HEAT AND FROST INSULATOR (CURRENT) USE OF ASPIRIN 11/09/2019 SAHARA LONG MD, Ot Z87.891 PERSONAL HISTORY OF NICOTINE DEPENDENCE 11/09/2019 SAHARA LONG MD, Ot Z90. 49 ACQUIRED ABSENCE OF OTHER SPECIFIED PART 11/09/2019 SAHARA LONG MD, Ot Z94. 4 LIVER TRANSPLANT STATUS 11/12/2019 MAITE MORRISON APRN, Ot J84.9 INTERSTITIAL PULMONARY DISEASE, UNSPECIF 11/12/2019 MAITE MORRISON APRN, Ot Z87.891 PERSONAL HISTORY OF NICOTINE DEPENDENCE Procedures Code Description Performed By Per christiano On 86.59 CLOS URE SKIN SUBCUTANEOUS NEC 11/24/2005 24049 ROUT INE VENIPUNCTURE 07/01/2012 67962 A1C (IN-HOUSE) 07/01/2012 60105 CMP 07/01/2012 [id number] GF R CALC (RESULT ONLY) 07/01/2012 57964 A1C (RML) 07/02/2012 80481 PROG DAVINA (TACROLIMUS) 07/02/2012 69479 ROUT INE VENIPUNCTURE 07/08/2013 98160 MICR O ALBUMIN-IN HOUSE 07/08/2013 08994 A1C (IN-HOUSE) 07/08/2013 [id number] GF R CALC (RESULT ONLY) 07/08/2013 66129 CMP 07/08/2013 Podiatry Ally Pierce 09/13/2013 82159 ROUT INE VENIPUNCTURE 12/15/2013 28271 A1C (IN-HOUSE) 12/15/2013 [id number] GF R CALC (RESULT ONLY) 12/15/2013 62404 CMP 12/15/2013 14650 A1C (IN-HOUSE) 07/24/2014 [id number] RE SECTION OF R METATARSOPHAL JT, OPEN AP 12/10/2016 [id number] DE TACHMENT AT RIGHT FOOT, PARTIAL 1ST RA 09/04/2017 [id number] DE TACHMENT AT RIGHT FOOT, PARTIAL 2ND RA 09/04/2017 [id number] DE TACHMENT AT RIGHT FOOT, PARTIAL 3RD RA 09/04/2017 [id number] DE TACHMENT AT RIGHT FOOT, PARTIAL 4TH RA 09/04/2017 [id number] DE TACHMENT AT RIGHT FOOT, PARTIAL 5TH RA 09/04/2017 [id number] DE TACHMENT AT LEFT 3RD TOE, LOW, OPEN AP 09/04/2017 [id number] DI LATION OF 1 COR ART WITH 2 DRUG-ELUT, 04/21/2019 [id number] ME ASURE OF CARDIAC SAMPL PRESSURE, L H 04/21/2019 [id number] FL UOROSCOPY OF MULT COR ART USING L OSM 04/21/2019 [id number] FL UOROSCOPY OF LEFT HEART USING LOW OSMO 04/21/2019 [id number] DI LATION OF 1 COR ART WITH DRUG-ELUT INT 05/02/2019 [id number] ME ASURE OF CARDIAC SAMPL PRESSURE, L H 05/02/2019 [id number] FL UOROSCOPY OF MULT COR ART USING L OSM 05/02/2019 [id number] FL UOROSCOPY OF LEFT HEART USING LOW OSMO 05/02/2019 [id number] DI LATION OF 1 COR ART WITH DRUG-ELUT INT 05/04/2019 [id number] ME ASURE OF CARDIAC SAMPL PRESSURE, L H 05/04/2019 [id number] FL UOROSCOPY OF MULT COR ART USING L OSM 05/04/2019 [id number] FL UOROSCOPY OF LEFT HEART USING LOW OSMO 05/04/2019 Results Test Result Range Methicillin resistant Staphylococcus aur eus (MRSA) screening culture - 05/05/16 11:30 Methicillin resistant Staphylococcus aureus (MRSA) scr eening culture NEG NRG Capillary blood glucose measurement by g lucometer (mass/volume) - 05/08/16 06:27 Capillary blood glucose measurement by glucometer (mas s/volume) 155 mg/dL 70-110 Gram stain microscopy - 12/06/16 21:10 GRAM STAIN RESULT NUMEROUS GRAM POSITIVE COCCI NRG Bacteria identification in wound by cult ure - 12/06/16 21:10 Bacteria identification in wound by culture [id number] NRG FREE TEXT EXTERNAL SENSITIVITY REPORTED 12/08/16 7:2 5 NRG QUANTITY OF GROWTH Moderate Growth NRG Bacterial susceptibility panel - 7 21:10 Oxacillin susceptibility test by minimum inhibitory co ncentration <= NRG Gentamicin susceptibility test by minimum inhibitory c oncentration <= NRG Clindamycin susceptibility test by minimum inhibitory concentration <= NRG Erythromycin susceptibility test by minimum inhibitory concentration <= NRG Trimethoprim/sulfamethoxazole susceptibi lity test by minimum inhibitoryconcentration <= NRG Vancomycin susceptibility test by minimum inhibitory c oncentration <= NRG Levofloxacin susceptibility test by minimum inhibitory concentration <= NRG Rifampin susceptibility test by minimum inhibitory con centration <= NRG Tetracycline susceptibility test by minimum inhibitory concentration <= NRG Bacterial susceptibility panel - 7 21:10 Gentamicin susceptibility test by minimum inhibitory c oncentration <= NRG Trimethoprim/sulfamethoxazole susceptibi lity test by minimum inhibitoryconcentration <= NRG Ampicillin susceptibility test by minimum inhibitory c oncentration >= NRG Tobramycin susceptibility test by minimum inhibitory c oncentration <= NRG Cefazolin susceptibility test by minimum inhibitory co ncentration >= NRG Ceftriaxone susceptibility test by minimum inhibitory concentration <= NRG Ampicillin/sulbactam susceptibility test by minimum inhibitory concentration <= NRG Piperacillin/tazobactam susceptibility t est by minimum inhibitory concentration <= NRG Ciprofloxacin susceptibility test by minimum inhibitor y concentration <= NRG Meropenem susceptibility test by minimum inhibitory co ncentration <= NRG Aztreonam susceptibility test by minimum inhibitory co ncentration <= NRG Complete blood count (CBC) with automate d white blood cell (WBC) differential - 12/06/16 21:18 Blood leukocytes automated count (number/volume) 6.3 10*3/uL 4.3-11.0 Blood erythrocytes automated count (number/volume) 4.32 10*6/uL 4.35-5.85 Venous blood hemoglobin measurement (mass/volume) 12.5 g/dL 13.3-17.7 Blood hematocrit (volume fraction) 38 % 40-54 Automated erythrocyte mean corpuscular volume 88 [ foz_us] 80-99 Automated erythrocyte mean corpuscular h emoglobin (mass per erythrocyte) 29 pg 25-34 Automated erythrocyte mean corpuscular h emoglobin concentration measurement (mass/volume) 33 g/dL 32-36 Automated erythrocyte distribution width ratio 14. 1 % 10.0- 14.5 Automated blood platelet count (count/volume) 510 10*3/uL [...] 10*3 1.0-4.0 Blood monocytes automated count (number/volume) 0. 5 10*3 0.0-1.0 Automated eosinophil count 0.1 10*3/uL 0 .0-0.3 Automated blood basophil count (count/volume) 0.0 10*3/uL 0.0-0.1 Erythrocyte sedimentation rate by montrell gren method - 12/06/16 21:18 Erythrocyte sedimentation rate by westergren method 81 mm 0- 30 Blood lactic acid measurement (moles/vol ume) - 12/06/16 21:18 Blood lactic acid measurement [...] 5-14 Serum or plasma urea nitrogen measurement (mass/volume ) 5 mg/dL 7-18 Serum or plasma creatinine measurement (mass/volume) 0.77 mg/dL 0.60-1.30 Serum or plasma urea nitrogen/creatinine mass ratio 6 NRG Serum or plasma creatinine measurement w ith calculation of estimated glomerular filtration rate > NRG Serum or plasma glucose measurement (mass/volume) 277 mg/dL 70-105 Serum or plasma calcium measurement (mass/volume) 9.2 mg/dL 8.5-10.1 Serum or plasma total bilirubin measurement (mass/volu me) 0.5 mg/dL 0.1-1.0 Serum or plasma alkaline phosphatase marivel surement (enzymatic activity/volume) 103 U/L 40-136 Serum or plasma aspartate aminotransfera se measurement (enzymatic activity/volume) 16 U/L 5-34 Serum or plasma alanine aminotransferase measurement (enzymatic activity/volume) 17 U/L 0-55 Serum or plasma protein measurement (mass/volume) 7.6 g/dL 6.4-8.2 Serum or plasma albumin measurement (mass/volume) 3.3 g/dL 3.2-4.5 Bacterial blood culture - 12/06/16 21:18 FREE TEXT EXTERNAL FROM ONE BOTTLE NRG QUANTITY OF GROWTH Isolated NRG Bacterial blood culture [id number] NRG Bacterial blood culture - 12/06/16 21:43 Bacterial blood culture NG NRG Serum or plasma lactate measurement (mol es/volume) - 12/06/16 23:03 Serum or plasma lactate measurement (moles/volume) 1.38 mmol/L 0.50-2.00 Complete blood count (CBC) with automate d white blood cell (WBC) differential - 12/07/16 04:47 Blood leukocytes automated count (number/volume) 5.7 10*3/uL 4.3-11.0 Blood erythrocytes automated count (number/volume) 3.81 10*6/uL 4.35-5.85 Venous blood hemoglobin measurement (mass/volume) 11.0 g/dL 13.3-17.7 Blood hematocrit (volume fraction) 34 % 40-54 Automated erythrocyte mean corpuscular volume 89 [ foz_us] 80-99 Automated erythrocyte mean corpuscular h emoglobin (mass per erythrocyte) 29 pg 25-34 Automated erythrocyte mean corpuscular h emoglobin concentration measurement (mass/volume) 32 g/dL 32-36 Automated erythrocyte distribution width ratio 14. 2 % 10.0- 14.5 Automated blood platelet count (count/volume) 443 10*3/uL [...] 10*3 1.0-4.0 Blood monocytes automated count (number/volume) 0. 5 10*3 0.0-1.0 Automated eosinophil count 0.1 10*3/uL 0 .0-0.3 Automated blood basophil count (count/volume) 0.0 10*3/uL 0.0-0.1 Comprehensive metabolic panel - 12/07/16 04:47 Serum or plasma sodium measurement (moles/volume) 142 mmol/L 135-145 Serum or plasma potassium measurement (moles/volume) 3.3 mmol/L 3.6-5.0 Serum or plasma chloride measurement (moles/volume) 108 mmol/L 98-107 Carbon dioxide 25 mmol/L 21-32 Serum or plasma anion gap determination (moles/volume) 9 mmol/L 5-14 Serum or plasma urea nitrogen measurement (mass/volume ) 7 mg/dL 7-18 Serum or plasma creatinine measurement (mass/volume) 0.76 mg/dL 0.60-1.30 Serum or plasma urea nitrogen/creatinine mass ratio 9 NRG Serum or plasma creatinine measurement w ith calculation of estimated glomerular filtration rate > NRG Serum or plasma glucose measurement (mass/volume) 261 mg/dL 70-105 Serum or plasma calcium measurement (mass/volume) 8.3 mg/dL 8.5-10.1 Serum or plasma total bilirubin measurement (mass/volu me) 0.3 mg/dL 0.1-1.0 Serum or plasma alkaline phosphatase marivel surement (enzymatic activity/volume) 91 U/L 40-136 Serum or plasma aspartate aminotransfera se measurement (enzymatic activity/volume) 13 U/L 5-34 Serum or plasma alanine aminotransferase measurement (enzymatic activity/volume) 14 U/L 0-55 Serum or plasma protein measurement (mass/volume) 6.6 g/dL 6.4-8.2 Serum or plasma albumin measurement (mass/volume) 2.8 g/dL 3.2-4.5 Capillary blood glucose measurement by g lucometer (mass/volume) - 12/07/16 11:56 Capillary blood glucose measurement by glucometer (mas s/volume) 140 mg/dL 70-110 Capillary blood glucose measurement by g lucometer (mass/volume) - 12/07/16 16:30 Capillary blood glucose measurement by glucometer (mas s/volume) 132 mg/dL 70-110 Capillary blood glucose measurement by g lucometer (mass/volume) - 12/07/16 21:33 Capillary blood glucose measurement by glucometer (mas s/volume) 107 mg/dL 70-110 Capillary blood glucose measurement by g lucometer (mass/volume) - 12/08/16 05:46 Capillary blood glucose measurement by glucometer (mas s/volume) 98 mg/dL 70-110 Vancomycin trough - 12/08/16 06:15 Vancomycin trough 14.2 ug/mL 10.0-20.0 Capillary blood glucose measurement by g lucometer (mass/volume) - 12/08/16 11:13 Capillary blood glucose measurement by glucometer (mas s/volume) 127 mg/dL 70-110 Capillary blood glucose measurement by g lucometer (mass/volume) - 12/08/16 14:59 Capillary blood glucose measurement by glucometer (mas s/volume) 142 mg/dL 70-110 Capillary blood glucose measurement by g lucometer (mass/volume) - 12/08/16 21:43 Capillary blood glucose measurement by glucometer (mas s/volume) 169 mg/dL 70-110 Complete blood count (CBC) with automate d white blood cell (WBC) differential - 12/09/16 05:25 Blood leukocytes automated count (number/volume) 4.3 10*3/uL 4.3-11.0 Blood erythrocytes automated count (number/volume) 3.51 10*6/uL 4.35-5.85 Venous blood hemoglobin measurement (mass/volume) 10.1 g/dL 13.3-17.7 Blood hematocrit (volume fraction) 32 % 40-54 Automated erythrocyte mean corpuscular volume 91 [ foz_us] 80-99 Automated erythrocyte mean corpuscular h emoglobin (mass per erythrocyte) 29 pg 25-34 Automated erythrocyte mean corpuscular h emoglobin concentration measurement (mass/volume) 32 g/dL 32-36 Automated erythrocyte distribution width ratio 14. 5 % 10.0- 14.5 Automated blood platelet count (count/volume) 357 10*3/uL [...] 10*3 1.0-4.0 Blood monocytes automated count (number/volume) 0. 4 10*3 0.0-1.0 Automated eosinophil count 0.2 10*3/uL 0 .0-0.3 Automated blood basophil count (count/volume) 0.0 10*3/uL 0.0-0.1 Whole blood basic metabolic panel - 04/19 05:25 Serum or plasma sodium measurement (moles/volume) 144 mmol/L 135-145 Serum or plasma potassium measurement (moles/volume) 3.6 mmol/L 3.6-5.0 Serum or plasma chloride measurement (moles/volume) 111 mmol/L 98-107 Carbon dioxide 26 mmol/L 21-32 Serum or plasma anion gap determination (moles/volume) 7 mmol/L 5-14 Serum or plasma urea nitrogen measurement (mass/volume ) 8 mg/dL 7-18 Serum or plasma creatinine measurement (mass/volume) 0.72 mg/dL 0.60-1.30 Serum or plasma urea nitrogen/creatinine mass ratio 11 NRG Serum or plasma creatinine measurement w ith calculation of estimated glomerular filtration rate > NRG Serum or plasma glucose measurement (mass/volume) 129 mg/dL 70-105 Serum or plasma calcium measurement (mass/volume) 8.4 mg/dL 8.5-10.1 Hemoglobin A1c - 12/09/16 05:25 Hemoglobin A1c 9.1 % 4.5-6.2 Methicillin resistant Staphylococcus aur eus (MRSA) screening culture - 12/09/16 09:00 Methicillin resistant Staphylococcus aureus (MRSA) scr eening culture NEG NRG Capillary blood glucose measurement by g lucometer (mass/volume) - 12/09/16 10:49 Capillary blood glucose measurement by glucometer (mas s/volume) 220 mg/dL 70-110 Capillary blood glucose measurement by g lucometer (mass/volume) - 12/09/16 16:20 Capillary blood glucose measurement by glucometer (mas s/volume) 135 mg/dL 70-110 Capillary blood glucose measurement by g lucometer (mass/volume) - 12/09/16 21:04 Capillary blood glucose measurement by glucometer (mas s/volume) 168 mg/dL 70-110 Capillary blood glucose measurement by g lucometer (mass/volume) - 12/09/16 23:28 Capillary blood glucose measurement by glucometer (mas s/volume) 184 mg/dL 70-110 Complete blood count (CBC) with automate d white blood cell (WBC) differential - 12/10/16 06:35 Blood leukocytes automated count (number/volume) 3.9 10*3/uL 4.3-11.0 Blood erythrocytes automated count (number/volume) 3.41 10*6/uL 4.35-5.85 Venous blood hemoglobin measurement (mass/volume) 9.7 g/dL 13.3-17.7 Blood hematocrit (volume fraction) 31 % 40-54 Automated erythrocyte mean corpuscular volume 90 [ foz_us] 80-99 Automated erythrocyte mean corpuscular h emoglobin (mass per erythrocyte) 28 pg 25-34 Automated erythrocyte mean corpuscular h emoglobin concentration measurement (mass/volume) 32 g/dL 32-36 Automated erythrocyte distribution width ratio 14. 3 % 10.0- 14.5 Automated blood platelet count (count/volume) 333 10*3/uL [...] 10*3 1.0-4.0 Blood monocytes automated count (number/volume) 0. 5 10*3 0.0-1.0 Automated eosinophil count 0.1 10*3/uL 0 .0-0.3 Automated blood basophil count (count/volume) 0.0 10*3/uL 0.0-0.1 Comprehensive metabolic panel - 12/10/16 06:35 Serum or plasma sodium measurement (moles/volume) 142 mmol/L 135-145 Serum or plasma potassium measurement (moles/volume) 3.4 mmol/L 3.6-5.0 Serum or plasma chloride measurement (moles/volume) 109 mmol/L 98-107 Carbon dioxide 27 mmol/L 21-32 Serum or plasma anion gap determination (moles/volume) 6 mmol/L 5-14 Serum or plasma urea nitrogen measurement (mass/volume ) 7 mg/dL 7-18 Serum or plasma creatinine measurement (mass/volume) 0.70 mg/dL 0.60-1.30 Serum or plasma urea nitrogen/creatinine mass ratio 10 NRG Serum or plasma creatinine measurement w ith calculation of estimated glomerular filtration rate > NRG Serum or plasma glucose measurement (mass/volume) 147 mg/dL 70-105 Serum or plasma calcium measurement (mass/volume) 8.2 mg/dL 8.5-10.1 Serum or plasma total bilirubin measurement (mass/volu me) 0.3 mg/dL 0.1-1.0 Serum or plasma alkaline phosphatase marivel surement (enzymatic activity/volume) 81 U/L 40-136 Serum or plasma aspartate aminotransfera se measurement (enzymatic activity/volume) 20 U/L 5-34 Serum or plasma alanine aminotransferase measurement (enzymatic activity/volume) 16 U/L 0-55 Serum or plasma protein measurement (mass/volume) 6.0 g/dL 6.4-8.2 Serum or plasma albumin measurement (mass/volume) 2.7 g/dL 3.2-4.5 Capillary blood glucose measurement by g lucometer (mass/volume) - 12/10/16 11:39 Capillary blood glucose measurement by glucometer (mas s/volume) 138 mg/dL 70-110 Bacteria identification in isolate by an aerobe culture - 12/10/16 12:40 Bacteria identification in isolate by anaerobe culture NOANA [facility] Gram stain microscopy - 12/10/16 12:40 Gram stain microscopy Occasional gram positi ve cocci resembling Staph [facility] Bacteria identification in wound by cult ure - 12/10/16 12:40 Bacteria identification in wound by culture [id number] [facility] FREE TEXT EXTERNAL SENSITIVITY REPORTED AT 1519, 5 -17 NR QUANTITY OF GROWTH Scant Growth NR MRSA AGAR Screening test for MRSA is N EGATIVE (Final to follow) NRG Bacterial susceptibility panel - 7 12:40 Oxacillin susceptibility test by minimum inhibitory co ncentration <= NRG Gentamicin susceptibility test by minimum inhibitory c oncentration <= NRG Clindamycin susceptibility test by minimum inhibitory concentration <= NRG Erythromycin susceptibility test by minimum inhibitory concentration <= NRG Trimethoprim/sulfamethoxazole susceptibi lity test by minimum inhibitoryconcentration <= NRG Vancomycin susceptibility test by minimum inhibitory c oncentration 1 NRG Levofloxacin susceptibility test by minimum inhibitory concentration <= NRG Rifampin susceptibility test by minimum inhibitory con centration <= NRG Tetracycline susceptibility test by minimum inhibitory concentration <= NRG Bacteria identification in isolate by an aerobe culture - 12/10/16 12:56 Bacteria identification in isolate by anaerobe culture NOANA NRG Gram stain microscopy - 12/10/16 12:56 GRAM STAIN RESULT NO BACTERIA NRG Bacteria identification in wound by cult ure - 12/10/16 12:56 Bacteria identification in wound by culture [id number] NRG FREE TEXT EXTERNAL REFER TO CULTURE [id number] FOR SENS ITIVITY NRG QUANTITY OF GROWTH Scant Growth NRG MRSA AGAR Screening test for MRSA is N EGATIVE (Final to follow) NRG Capillary blood glucose measurement by g lucometer (mass/volume) - 12/10/16 18:30 Capillary blood glucose measurement by glucometer (mas s/volume) 214 mg/dL 70-110 Capillary blood glucose measurement by g lucometer (mass/volume) - 12/10/16 22:18 Capillary blood glucose measurement by glucometer (mas s/volume) 208 mg/dL 70-110 Complete blood count (CBC) with automate d white blood cell (WBC) differential - 12/11/16 05:55 Blood leukocytes automated count (number/volume) 4.6 10*3/uL 4.3-11.0 Blood erythrocytes automated count (number/volume) 3.11 10*6/uL 4.35-5.85 Venous blood hemoglobin measurement (mass/volume) 9.0 g/dL 13.3-17.7 Blood hematocrit (volume fraction) 28 % 40-54 Automated erythrocyte mean corpuscular volume 91 [ foz_us] 80-99 Automated erythrocyte mean corpuscular h emoglobin (mass per erythrocyte) 29 pg 25-34 Automated erythrocyte mean corpuscular h emoglobin concentration measurement (mass/volume) 32 g/dL 32-36 Automated erythrocyte distribution width ratio 14. 3 % 10.0- 14.5 Automated blood platelet count (count/volume) 314 10*3/uL [...] 10*3 1.0-4.0 Blood monocytes automated count (number/volume) 0. 5 10*3 0.0-1.0 Automated eosinophil count 0.1 10*3/uL 0 .0-0.3 Automated blood basophil count (count/volume) 0.0 10*3/uL 0.0-0.1 Whole blood basic metabolic panel - 12/01 08/19 05:55 Serum or plasma sodium measurement (moles/volume) 141 mmol/L 135-145 Serum or plasma potassium measurement (moles/volume) 3.1 mmol/L 3.6-5.0 Serum or plasma chloride measurement (moles/volume) 108 mmol/L 98-107 Carbon dioxide 26 mmol/L 21-32 Serum or plasma anion gap determination (moles/volume) 7 mmol/L 5-14 Serum or plasma urea nitrogen measurement (mass/volume ) 7 mg/dL 7-18 Serum or plasma creatinine measurement (mass/volume) 0.66 mg/dL 0.60-1.30 Serum or plasma urea nitrogen/creatinine mass ratio 11 NRG Serum or plasma creatinine measurement w ith calculation of estimated glomerular filtration rate > NRG Serum or plasma glucose measurement (mass/volume) 88 mg/dL 70-105 Serum or plasma calcium measurement (mass/volume) 7.9 mg/dL 8.5-10.1 Serum iron and total iron binding capaci ty panel - 12/11/16 05:55 Serum or plasma iron measurement (mass/volume) 32 % 40-180 Total iron binding capacity and transferrin saturation measurement 16 % 15-50 Iron binding capacity [mass/volume] in serum or plasma 205 % 280-380 UIBC (unsaturated iron binding capacity) 173 % 55-450 Serum or plasma ferritin measurement (mass/volume) 128.0 % 25.0-300.0 Capillary blood glucose measurement by g lucometer (mass/volume) - 12/11/16 09:56 Capillary blood glucose measurement by glucometer (mas s/volume) 95 mg/dL 70-110 Capillary blood glucose measurement by g lucometer (mass/volume) - 12/11/16 15:04 Capillary blood glucose measurement by glucometer (mas s/volume) 140 mg/dL 70-110 Capillary blood glucose measurement by g lucometer (mass/volume) - 12/11/16 19:50 Capillary blood glucose measurement by glucometer (mas s/volume) 157 mg/dL 70-110 Capillary blood glucose measurement by g lucometer (mass/volume) - 12/12/16 05:14 Capillary blood glucose measurement by glucometer (mas s/volume) 94 mg/dL 70-110 Complete blood count (CBC) with automate d white blood cell (WBC) differential - 12/12/16 05:46 Blood leukocytes automated count (number/volume) 3.6 10*3/uL 4.3-11.0 Blood erythrocytes automated count (number/volume) 3.12 10*6/uL 4.35-5.85 Venous blood hemoglobin measurement (mass/volume) 8.9 g/dL 13.3-17.7 Blood hematocrit (volume fraction) 29 % 40-54 Automated erythrocyte mean corpuscular volume 91 [ foz_us] 80-99 Automated erythrocyte mean corpuscular h emoglobin (mass per erythrocyte) 29 pg 25-34 Automated erythrocyte mean corpuscular h emoglobin concentration measurement (mass/volume) 31 g/dL 32-36 Automated erythrocyte distribution width ratio 14. 8 % 10.0- 14.5 Automated blood platelet count (count/volume) 310 10*3/uL [...] 10*3 1.0-4.0 Blood monocytes automated count (number/volume) 0. 5 10*3 0.0-1.0 Automated eosinophil count 0.2 10*3/uL 0 .0-0.3 Automated blood basophil count (count/volume) 0.0 10*3/uL 0.0-0.1 Whole blood basic metabolic panel - 12/01 09/19 05:46 Serum or plasma sodium measurement (moles/volume) 144 mmol/L 135-145 Serum or plasma potassium measurement (moles/volume) 3.4 mmol/L 3.6-5.0 Serum or plasma chloride measurement (moles/volume) 113 mmol/L 98-107 Carbon dioxide 27 mmol/L 21-32 Serum or plasma anion gap determination (moles/volume) 4 mmol/L 5-14 Serum or plasma urea nitrogen measurement (mass/volume ) 10 mg/dL 7-18 Serum or plasma creatinine measurement (mass/volume) 0.61 mg/dL 0.60-1.30 Serum or plasma urea nitrogen/creatinine mass ratio 16 NRG Serum or plasma creatinine measurement w ith calculation of estimated glomerular filtration rate > NRG Serum or plasma glucose measurement (mass/volume) 106 mg/dL 70-105 Serum or plasma calcium measurement (mass/volume) 8.0 mg/dL 8.5-10.1 Capillary blood glucose measurement by g lucometer (mass/volume) - 12/12/16 10:34 Capillary blood glucose measurement by glucometer (mas s/volume) 167 mg/dL 70-110 Capillary blood glucose measurement by g lucometer (mass/volume) - 12/12/16 14:59 Capillary blood glucose measurement by glucometer (mas s/volume) 107 mg/dL 70-110 Complete blood count (CBC) with automate d white blood cell (WBC) differential - 09/01/17 00:15 Blood leukocytes automated count (number/volume) 4.7 10*3/uL 4.3-11.0 Blood erythrocytes automated count (number/volume) 4.60 10*6/uL 4.35-5.85 Venous blood hemoglobin measurement (mass/volume) 13.7 g/dL 13.3-17.7 Blood hematocrit (volume fraction) 39 % 40-54 Automated erythrocyte mean corpuscular volume 85 [ foz_us] 80-99 Automated erythrocyte mean corpuscular h emoglobin (mass per erythrocyte) 30 pg 25-34 Automated erythrocyte mean corpuscular h emoglobin concentration measurement (mass/volume) 35 g/dL 32-36 Automated erythrocyte distribution width ratio 13. 2 % 10.0- 14.5 Automated blood platelet count (count/volume) 371 10*3/uL 130-400 Automated blood platelet mean volume measurement 10.2 [foz_us] 7.4-10.4 Automated blood neutrophils/100 leukocytes 59 % 42-75 Automated blood lymphocytes/100 leukocytes 24 % 12-44 Blood monocytes/100 leukocytes 14 % 0-12 Automated blood eosinophils/100 leukocytes 3 % 0-10 Automated blood basophils/100 leukocytes 0 % 0-10 Blood neutrophils automated count (number/volume) 2.8 10*3 1.8-7.8 Blood lymphocytes automated count (number/volume) 1.1 10*3 1.0-4.0 Blood monocytes automated count (number/volume) 0. 7 10*3 0.0-1.0 Automated eosinophil count 0.1 10*3/uL 0 .0-0.3 Automated blood basophil count (count/volume) 0.0 10*3/uL 0.0-0.1 Blood lactic acid measurement (moles/vol ume) - 09/01/17 00:15 Blood lactic acid measurement (moles/volume) 1.26 mmol/L 0.50-2.00 PT panel in platelet poor plasma by coag ulation assay - 09/01/17 00:15 Prothrombin time (PT) in platelet poor plasma by coagu lation assay 12.8 s 12.2-14.7 INR in platelet poor plasma or blood by coagulation as say 1.0 0.8-1.4 Activated partial thromboplastin time (a PTT) in platelet poor plasma bycoagulation assay - 09/01/17 00:15 Activated partial thromboplastin time (a PTT) in platelet poor plasma bycoagulation assay 29 s 24-35 Comprehensive metabolic panel - 09/01/17 00:15 Serum or plasma sodium measurement (moles/volume) 136 mmol/L 135-145 Serum or plasma potassium measurement (moles/volume) 3.9 mmol/L 3.6-5.0 Serum or plasma chloride measurement (moles/volume) 101 mmol/L 98-107 Carbon dioxide 25 mmol/L 21-32 Serum or plasma anion gap determination (moles/volume) 10 mmol/L 5-14 Serum or plasma urea nitrogen measurement (mass/volume ) 18 mg/dL 7-18 Serum or plasma creatinine measurement (mass/volume) 0.80 mg/dL 0.60-1.30 Serum or plasma urea nitrogen/creatinine mass ratio 23 NRG Serum or plasma creatinine measurement w ith calculation of estimated glomerular filtration rate > NRG Serum or plasma glucose measurement (mass/volume) 264 mg/dL 70-105 Serum or plasma calcium measurement (mass/volume) 9.2 mg/dL 8.5-10.1 Serum or plasma total bilirubin measurement (mass/volu me) 0.5 mg/dL 0.1-1.0 Serum or plasma alkaline phosphatase marivel surement (enzymatic activity/volume) 137 U/L 40-136 Serum or plasma aspartate aminotransfera se measurement (enzymatic activity/volume) 20 U/L 5-34 Serum or plasma alanine aminotransferase measurement (enzymatic activity/volume) 25 U/L 0-55 Serum or plasma protein measurement (mass/volume) 7.8 g/dL 6.4-8.2 Serum or plasma albumin measurement (mass/volume) 3.4 g/dL 3.2-4.5 Magnesium - 09/01/17 00:15 Magnesium 1.6 mg/dL 1.8-2.4 Serum or plasma C reactive protein measu rement (mass/volume) - 09/01/17 00:15 Serum or plasma C reactive protein measurement (mass/v olume) 9.16 mg/dL 0.00-0.50 Erythrocyte sedimentation rate by montrell gren method - 09/01/17 00:15 Erythrocyte sedimentation rate by westergren method 46 mm 0- 30 Bacterial blood culture - 09/01/17 00:15 QUANTITY OF GROWTH . NR Bacterial blood culture SEE COMMEN NR Urine drug screening test - 09/01/17 00: 25 Urine phencyclidine detection by screening method NEGATIVE NEGATIVE Urine benzodiazepines detection by screening method NEGATIVE NEGATIVE Urine cocaine detection NEGATIVE NEGATI VE Urine amphetamines detection by screening method P OSITIVE NEGATIVE Urine methamphetamine detection by screening method POSITIVE NEGATIVE Urine cannabinoids detection by screening method N EGATIVE NEGATIVE Urine opiates detection by screening method NEGATI VE NEGATIVE Urine barbiturates detection NEGATIVE N EGATIVE Screening urine tricyclic antidepressants detection NEGATIVE NEGATIVE Urine methadone detection by screening method NEGA TIVE NEGATIVE Urine oxycodone detection NEGATIVE NEGA TIVE Urine propoxyphene detection NEGATIVE N EGATIVE Complete urinalysis with reflex to cultu re - 09/01/17 00:25 Urine color determination YELLOW NRG Urine clarity determination CLEAR NR G Urine pH measurement by test strip 6 5-9 Specific gravity of urine by test strip 1.010 1.016-1.022 Urine protein assay by test strip, semi-quantitative 1+ NEGATIVE Urine glucose detection by automated test strip 4+ NEGATIVE Erythrocytes detection in urine sediment by light micr oscopy 4+ NEGATIVE Urine ketones detection by automated test strip NE GATIVE NEGATIVE Urine nitrite detection by test strip NEGATIVE NEGATIVE Urine total bilirubin detection by test strip NEGA TIVE NEGATIVE Urine urobilinogen measurement by automated test strip (mass/volume) NORMAL NORMAL Urine leukocyte esterase detection by dipstick NEG ATIVE NEGATIVE Automated urine sediment erythrocyte cou nt by microscopy (number/high power field) [HPF] NRG Automated urine sediment leukocyte count by microscopy (number/high power field) NONE NRG Bacteria detection in urine sediment by light microsco py NEGATIVE NRG Squamous epithelial cells detection in u rine sediment by light microscopy 5-10 NRG Crystals detection in urine sediment by light microsco py NONE NRG Casts detection in urine sediment by light microscopy NONE NRG Mucus detection in urine sediment by light microscopy NEGATIVE NRG Complete urinalysis with reflex to culture NO NRG Bacterial blood culture - 09/01/17 00:25 Bacterial blood culture NG NRG Serum or plasma ethanol measurement (mas s/volume) - 09/01/17 00:35 Serum or plasma ethanol measurement (mass/volume) < mg/dL <10 Complete blood count (CBC) with automate d white blood cell (WBC) differential - 09/01/17 05:45 Blood leukocytes automated count (number/volume) 4.2 10*3/uL 4.3-11.0 Blood erythrocytes automated count (number/volume) 4.34 10*6/uL 4.35-5.85 Venous blood hemoglobin measurement (mass/volume) 12.8 g/dL 13.3-17.7 Blood hematocrit (volume fraction) 37 % 40-54 Automated erythrocyte mean corpuscular volume 85 [ foz_us] 80-99 Automated erythrocyte mean corpuscular h emoglobin (mass per erythrocyte) 30 pg 25-34 Automated erythrocyte mean corpuscular h emoglobin concentration measurement (mass/volume) 35 g/dL 32-36 Automated erythrocyte distribution width ratio 13. 3 % 10.0- 14.5 Automated blood platelet count (count/volume) 326 10*3/uL 130-400 Automated blood platelet mean volume measurement 10.7 [foz_us] 7.4-10.4 Automated blood neutrophils/100 leukocytes 57 % 42-75 Automated blood lymphocytes/100 leukocytes 27 % 12-44 Blood monocytes/100 leukocytes 13 % 0-12 Automated blood eosinophils/100 leukocytes 3 % 0-10 Automated blood basophils/100 leukocytes 1 % 0-10 Blood neutrophils automated count (number/volume) 2.4 10*3 1.8-7.8 Blood lymphocytes automated count (number/volume) 1.1 10*3 1.0-4.0 Blood monocytes automated count (number/volume) 0. 5 10*3 0.0-1.0 Automated eosinophil count 0.1 10*3/uL 0 .0-0.3 Automated blood basophil count (count/volume) 0.0 10*3/uL 0.0-0.1 Comprehensive metabolic panel - 09/01/17 05:45 Serum or plasma sodium measurement (moles/volume) 136 mmol/L 135-145 Serum or plasma potassium measurement (moles/volume) 3.9 mmol/L 3.6-5.0 Serum or plasma chloride measurement (moles/volume) 103 mmol/L 98-107 Carbon dioxide 23 mmol/L 21-32 Serum or plasma anion gap determination (moles/volume) 10 mmol/L 5-14 Serum or plasma urea nitrogen measurement (mass/volume ) 19 mg/dL 7-18 Serum or plasma creatinine measurement (mass/volume) 0.77 mg/dL 0.60-1.30 Serum or plasma urea nitrogen/creatinine mass ratio 25 NRG Serum or plasma creatinine measurement w ith calculation of estimated glomerular filtration rate > NRG Serum or plasma glucose measurement (mass/volume) 295 mg/dL 70-105 Serum or plasma calcium measurement (mass/volume) 8.9 mg/dL 8.5-10.1 Serum or plasma total bilirubin measurement (mass/volu me) 0.4 mg/dL 0.1-1.0 Serum or plasma alkaline phosphatase marivel surement (enzymatic activity/volume) 123 U/L 40-136 Serum or plasma aspartate aminotransfera se measurement (enzymatic activity/volume) 25 U/L 5-34 Serum or plasma alanine aminotransferase measurement (enzymatic activity/volume) 25 U/L 0-55 Serum or plasma protein measurement (mass/volume) 7.1 g/dL 6.4-8.2 Serum or plasma albumin measurement (mass/volume) 3.1 g/dL 3.2-4.5 Capillary blood glucose measurement by g lucometer (mass/volume) - 09/01/17 06:07 Capillary blood glucose measurement by glucometer (mas s/volume) 275 mg/dL 70-110 Capillary blood glucose measurement by g lucometer (mass/volume) - 09/01/17 10:59 Capillary blood glucose measurement by glucometer (mas s/volume) 257 mg/dL 70-110 Capillary blood glucose measurement by g lucometer (mass/volume) - 09/01/17 15:46 Capillary blood glucose measurement by glucometer (mas s/volume) 275 mg/dL 70-110 Capillary blood glucose measurement by g lucometer (mass/volume) - 09/01/17 20:54 Capillary blood glucose measurement by glucometer (mas s/volume) 250 mg/dL 70-110 Capillary blood glucose measurement by g lucometer (mass/volume) - 09/02/17 05:21 Capillary blood glucose measurement by glucometer (mas s/volume) 238 mg/dL 70-110 Complete blood count (CBC) with automate d white blood cell (WBC) differential - 09/02/17 05:35 Blood leukocytes automated count (number/volume) 3.9 10*3/uL 4.3-11.0 Blood erythrocytes automated count (number/volume) 4.43 10*6/uL 4.35-5.85 Venous blood hemoglobin measurement (mass/volume) 12.9 g/dL 13.3-17.7 Blood hematocrit (volume fraction) 38 % 40-54 Automated erythrocyte mean corpuscular volume 86 [ foz_us] 80-99 Automated erythrocyte mean corpuscular h emoglobin (mass per erythrocyte) 29 pg 25-34 Automated erythrocyte mean corpuscular h emoglobin concentration measurement (mass/volume) 34 g/dL 32-36 Automated erythrocyte distribution width ratio 13. 7 % 10.0- 14.5 Automated blood platelet count (count/volume) 405 10*3/uL 130-400 Automated blood platelet mean volume measurement 10.7 [foz_us] 7.4-10.4 Automated blood neutrophils/100 leukocytes 48 % 42-75 Automated blood lymphocytes/100 leukocytes 35 % 12-44 Blood monocytes/100 leukocytes 13 % 0-12 Automated blood eosinophils/100 leukocytes 4 % 0-10 Automated blood basophils/100 leukocytes 1 % 0-10 Blood neutrophils automated count (number/volume) 1.9 10*3 1.8-7.8 Blood lymphocytes automated count (number/volume) 1.4 10*3 1.0-4.0 Blood monocytes automated count (number/volume) 0. 5 10*3 0.0-1.0 Automated eosinophil count 0.2 10*3/uL 0 .0-0.3 Automated blood basophil count (count/volume) 0.0 10*3/uL 0.0-0.1 Comprehensive metabolic panel - 09/02/17 05:35 Serum or plasma sodium measurement (moles/volume) 139 mmol/L 135-145 Serum or plasma potassium measurement (moles/volume) 4.1 mmol/L 3.6-5.0 Serum or plasma chloride measurement (moles/volume) 105 mmol/L 98-107 Carbon dioxide 26 mmol/L 21-32 Serum or plasma anion gap determination (moles/volume) 8 mmol/L 5-14 Serum or plasma urea nitrogen measurement (mass/volume ) 13 mg/dL 7-18 Serum or plasma creatinine measurement (mass/volume) 0.77 mg/dL 0.60-1.30 Serum or plasma urea nitrogen/creatinine mass ratio 17 NRG Serum or plasma creatinine measurement w ith calculation of estimated glomerular filtration rate > NRG Serum or plasma glucose measurement (mass/volume) 253 mg/dL 70-105 Serum or plasma calcium measurement (mass/volume) 8.3 mg/dL 8.5-10.1 Serum or plasma total bilirubin measurement (mass/volu me) 0.4 mg/dL 0.1-1.0 Serum or plasma alkaline phosphatase marivel surement (enzymatic activity/volume) 110 U/L 40-136 Serum or plasma aspartate aminotransfera se measurement (enzymatic activity/volume) 27 U/L 5-34 Serum or plasma alanine aminotransferase measurement (enzymatic activity/volume) 28 U/L 0-55 Serum or plasma protein measurement (mass/volume) 7.1 g/dL 6.4-8.2 Serum or plasma albumin measurement (mass/volume) 3.0 g/dL 3.2-4.5 Magnesium - 09/02/17 05:35 Magnesium 1.7 mg/dL 1.8-2.4 Hemoglobin A1c - 09/02/17 05:35 Blood hemoglobin A1C measurement (mass/volume) 11. 8 % 4.0- 5.6 MEAN BLOOD GLUCOSE 292 % <=126 Vancomycin trough - 09/02/17 08:12 Vancomycin trough 14.3 ug/mL 10.0-20.0 Capillary blood glucose measurement by g lucometer (mass/volume) - 09/02/17 11:21 Capillary blood glucose measurement by glucometer (mas s/volume) 225 mg/dL 70-110 Capillary blood glucose measurement by g lucometer (mass/volume) - 09/02/17 16:18 Capillary blood glucose measurement by glucometer (mas s/volume) 257 mg/dL 70-110 Capillary blood glucose measurement by g lucometer (mass/volume) - 09/02/17 20:58 Capillary blood glucose measurement by glucometer (mas s/volume) 257 mg/dL 70-110 Capillary blood glucose measurement by g lucometer (mass/volume) - 09/03/17 05:11 Capillary blood glucose measurement by glucometer (mas s/volume) 211 mg/dL 70-110 Automated blood complete blood count (he mogram) panel - 09/03/17 05:50 Blood leukocytes automated count (number/volume) 4.6 10*3/uL 4.3-11.0 Blood erythrocytes automated count (number/volume) 4.42 10*6/uL 4.35-5.85 Venous blood hemoglobin measurement (mass/volume) 12.8 g/dL 13.3-17.7 Blood hematocrit (volume fraction) 38 % 40-54 Automated erythrocyte mean corpuscular volume 86 [ foz_us] 80-99 Automated erythrocyte mean corpuscular h emoglobin (mass per erythrocyte) 29 pg 25-34 Automated erythrocyte mean corpuscular h emoglobin concentration measurement (mass/volume) 34 g/dL 32-36 Automated erythrocyte distribution width ratio 13. 7 % 10.0- 14.5 Automated blood platelet count (count/volume) 449 10*3/uL 130-400 Automated blood platelet mean volume measurement 10.8 [foz_us] 7.4-10.4 Comprehensive metabolic panel - 09/03/17 05:50 Serum or plasma sodium measurement (moles/volume) 138 mmol/L 135-145 Serum or plasma potassium measurement (moles/volume) 3.8 mmol/L 3.6-5.0 Serum or plasma chloride measurement (moles/volume) 105 mmol/L 98-107 Carbon dioxide 25 mmol/L 21-32 Serum or plasma anion gap determination (moles/volume) 8 mmol/L 5-14 Serum or plasma urea nitrogen measurement (mass/volume ) 12 mg/dL 7-18 Serum or plasma creatinine measurement (mass/volume) 0.74 mg/dL 0.60-1.30 Serum or plasma urea nitrogen/creatinine mass ratio 16 NRG Serum or plasma creatinine measurement w ith calculation of estimated glomerular filtration rate > NRG Serum or plasma glucose measurement (mass/volume) 241 mg/dL 70-105 Serum or plasma calcium measurement (mass/volume) 8.8 mg/dL 8.5-10.1 Serum or plasma total bilirubin measurement (mass/volu me) 0.4 mg/dL 0.1-1.0 Serum or plasma alkaline phosphatase marivel surement (enzymatic activity/volume) 103 U/L 40-136 Serum or plasma aspartate aminotransfera se measurement (enzymatic activity/volume) 21 U/L 5-34 Serum or plasma alanine aminotransferase measurement (enzymatic activity/volume) 22 U/L 0-55 Serum or plasma protein measurement (mass/volume) 7.2 g/dL 6.4-8.2 Serum or plasma albumin measurement (mass/volume) 3.0 g/dL 3.2-4.5 Magnesium - 09/03/17 05:50 Magnesium 1.7 mg/dL 1.8-2.4 Methicillin resistant Staphylococcus aur eus (MRSA) screening culture - 09/03/17 08:40 Methicillin resistant Staphylococcus aureus (MRSA) scr eening culture NEG NRG Capillary blood glucose measurement by g lucometer (mass/volume) - 09/03/17 10:53 Capillary blood glucose measurement by glucometer (mas s/volume) 290 mg/dL 70-110 Capillary blood glucose measurement by g lucometer (mass/volume) - 09/03/17 15:50 Capillary blood glucose measurement by glucometer (mas s/volume) 250 mg/dL 70-110 Capillary blood glucose measurement by g lucometer (mass/volume) - 09/03/17 20:06 Capillary blood glucose measurement by glucometer (mas s/volume) 209 mg/dL 70-110 Capillary blood glucose measurement by g lucometer (mass/volume) - 09/04/17 06:05 Capillary blood glucose measurement by glucometer (mas s/volume) 260 mg/dL 70-110 Automated blood complete blood count (he mogram) panel - 09/04/17 06:20 Blood leukocytes automated count (number/volume) 4.8 10*3/uL 4.3-11.0 Blood erythrocytes automated count (number/volume) 4.71 10*6/uL 4.35-5.85 Venous blood hemoglobin measurement (mass/volume) 13.9 g/dL 13.3-17.7 Blood hematocrit (volume fraction) 41 % 40-54 Automated erythrocyte mean corpuscular volume 86 [ foz_us] 80-99 Automated erythrocyte mean corpuscular h emoglobin (mass per erythrocyte) 30 pg 25-34 Automated erythrocyte mean corpuscular h emoglobin concentration measurement (mass/volume) 34 g/dL 32-36 Automated erythrocyte distribution width ratio 13. 8 % 10.0- 14.5 Automated blood platelet count (count/volume) 486 10*3/uL 130-400 Automated blood platelet mean volume measurement 10.8 [foz_us] 7.4-10.4 Whole blood basic metabolic panel - 09/20 06:20 Serum or plasma sodium measurement (moles/volume) 138 mmol/L 135-145 Serum or plasma potassium measurement (moles/volume) 4.0 mmol/L 3.6-5.0 Serum or plasma chloride measurement (moles/volume) 104 mmol/L 98-107 Carbon dioxide 23 mmol/L 21-32 Serum or plasma anion gap determination (moles/volume) 11 mmol/L 5-14 Serum or plasma urea nitrogen measurement (mass/volume ) 12 mg/dL 7-18 Serum or plasma creatinine measurement (mass/volume) 0.77 mg/dL 0.60-1.30 Serum or plasma urea nitrogen/creatinine mass ratio 16 NRG Serum or plasma creatinine measurement w ith calculation of estimated glomerular filtration rate > NRG Serum or plasma glucose measurement (mass/volume) 258 mg/dL 70-105 Serum or plasma calcium measurement (mass/volume) 9.1 mg/dL 8.5-10.1 Magnesium - 09/04/17 06:20 Magnesium 1.8 mg/dL 1.8-2.4 PT panel in platelet poor plasma by coag ulation assay - 09/04/17 06:20 Prothrombin time (PT) in platelet poor plasma by coagu lation assay 13.6 s 12.2-14.7 INR in platelet poor plasma or blood by coagulation as say 1.0 0.8-1.4 Urine drug screening test - 09/04/17 09: 30 Urine phencyclidine detection by screening method NEGATIVE NEGATIVE Urine benzodiazepines detection by screening method NEGATIVE NEGATIVE Urine cocaine detection NEGATIVE NEGATI VE Urine amphetamines detection by screening method N EGATIVE NEGATIVE Urine methamphetamine detection by screening method NEGATIVE NEGATIVE Urine cannabinoids detection by screening method N EGATIVE NEGATIVE Urine opiates detection by screening method NEGATI VE NEGATIVE Urine barbiturates detection NEGATIVE N EGATIVE Screening urine tricyclic antidepressants detection NEGATIVE NEGATIVE Urine methadone detection by screening method NEGA TIVE NEGATIVE Urine oxycodone detection NEGATIVE NEGA TIVE Urine propoxyphene detection NEGATIVE N EGATIVE Capillary blood glucose measurement by g lucometer (mass/volume) - 09/04/17 11:44 Capillary blood glucose measurement by glucometer (mas s/volume) 226 mg/dL 70-110 Bacteria identification in isolate by an aerobe culture - 09/04/17 13:20 Bacteria identification in isolate by anaerobe culture NOANA NRG Gram stain microscopy - 09/04/17 13:20 GRAM STAIN RESULT NO WBC'S OR BACTERIA OBSERVED NRG Bacteria identification in wound by cult ure - 09/04/17 13:20 Bacteria identification in wound by culture [id number] NRG FREE TEXT EXTERNAL REFER TO CULTURE [id number] FOR SENS ITIVITY NRG QUANTITY OF GROWTH Scant Growth NRG Bacteria identification in isolate by an aerobe culture - 09/04/17 13:43 Bacteria identification in isolate by anaerobe culture NOANA NRG Gram stain microscopy - 09/04/17 13:43 GRAM STAIN RESULT FEW WBC'S, NO BACTERIA OBSERVED NRG Bacteria identification in wound by cult ure - 09/04/17 13:43 Bacteria identification in wound by culture [id number] NRG FREE TEXT EXTERNAL SENSITIVITY REPORTED 09/06/17 8:3 0 NRG QUANTITY OF GROWTH Scant Growth NRG Bacterial susceptibility panel - 8 13:43 Oxacillin susceptibility test by minimum inhibitory co ncentration <= NRG Gentamicin susceptibility test by minimum inhibitory c oncentration <= NRG Clindamycin susceptibility test by minimum inhibitory concentration <= NRG Erythromycin susceptibility test by minimum inhibitory concentration <= NRG Trimethoprim/sulfamethoxazole susceptibi lity test by minimum inhibitoryconcentration S NRG Vancomycin susceptibility test by minimum inhibitory c oncentration 2 NRG Levofloxacin susceptibility test by minimum inhibitory concentration <= NRG Rifampin susceptibility test by minimum inhibitory con centration <= NRG Tetracycline susceptibility test by minimum inhibitory concentration <= NRG Bacteria identification in isolate by an aerobe culture - 09/04/17 14:10 Bacteria identification in isolate by anaerobe culture NOANA NRG Gram stain microscopy - 09/04/17 14:10 GRAM STAIN RESULT NO WBC'S OR BACTERIA OBSERVED NRG Bacteria identification in wound by cult ure - 09/04/17 14:10 Bacteria identification in wound by culture [id number] NRG FREE TEXT EXTERNAL SENSITIVITY REPORTED 09/08/17 7:2 5 NRG QUANTITY OF GROWTH Scant Growth NR Bacterial susceptibility panel - 8 14:10 Oxacillin susceptibility test by minimum inhibitory co ncentration >= NRG Gentamicin susceptibility test by minimum inhibitory c oncentration <= NRG Clindamycin susceptibility test by minimum inhibitory concentration <= NRG Erythromycin susceptibility test by minimum inhibitory concentration >= NRG Trimethoprim/sulfamethoxazole susceptibi lity test by minimum inhibitoryconcentration R NRG Vancomycin susceptibility test by minimum inhibitory c oncentration 1 NRG Levofloxacin susceptibility test by minimum inhibitory concentration <= NRG Rifampin susceptibility test by minimum inhibitory con centration <= NRG Tetracycline susceptibility test by minimum inhibitory concentration 2 NRG Bacterial susceptibility panel - 8 14:10 Oxacillin susceptibility test by minimum inhibitory co ncentration S NRG Gentamicin susceptibility test by minimum inhibitory c oncentration <= NRG Clindamycin susceptibility test by minimum inhibitory concentration <= NRG Erythromycin susceptibility test by minimum inhibitory concentration 0.5 NRG Trimethoprim/sulfamethoxazole susceptibi lity test by minimum inhibitoryconcentration S NRG Vancomycin susceptibility test by minimum inhibitory c oncentration 1 NRG Levofloxacin susceptibility test by minimum inhibitory concentration 0.5 NRG Rifampin susceptibility test by minimum inhibitory con centration <= NRG Tetracycline susceptibility test by minimum inhibitory concentration <= NRG Capillary blood glucose measurement by g lucometer (mass/volume) - 09/04/17 16:26 Capillary blood glucose measurement by glucometer (mas s/volume) 227 mg/dL 70-110 Capillary blood glucose measurement by g lucometer (mass/volume) - 09/04/17 20:55 Capillary blood glucose measurement by glucometer (mas s/volume) 184 mg/dL 70-110 Automated blood complete blood count (he mogram) panel - 09/05/17 05:10 Blood leukocytes automated count (number/volume) 7.0 10*3/uL 4.3-11.0 Blood erythrocytes automated count (number/volume) 4.22 10*6/uL 4.35-5.85 Venous blood hemoglobin measurement (mass/volume) 12.4 g/dL 13.3-17.7 Blood hematocrit (volume fraction) 37 % 40-54 Automated erythrocyte mean corpuscular volume 89 [ foz_us] 80-99 Automated erythrocyte mean corpuscular h emoglobin (mass per erythrocyte) 29 pg 25-34 Automated erythrocyte mean corpuscular h emoglobin concentration measurement (mass/volume) 33 g/dL 32-36 Automated erythrocyte distribution width ratio 14. 0 % 10.0- 14.5 Automated blood platelet count (count/volume) 479 10*3/uL 130-400 Automated blood platelet mean volume measurement 10.2 [foz_us] 7.4-10.4 Comprehensive metabolic panel - 09/05/17 05:10 Serum or plasma sodium measurement (moles/volume) 138 mmol/L 135-145 Serum or plasma potassium measurement (moles/volume) 4.3 mmol/L 3.6-5.0 Serum or plasma chloride measurement (moles/volume) 101 mmol/L 98-107 Carbon dioxide 26 mmol/L 21-32 Serum or plasma anion gap determination (moles/volume) 11 mmol/L 5-14 Serum or plasma urea nitrogen measurement (mass/volume ) 11 mg/dL 7-18 Serum or plasma creatinine measurement (mass/volume) 0.79 mg/dL 0.60-1.30 Serum or plasma urea nitrogen/creatinine mass ratio 14 NRG Serum or plasma creatinine measurement w ith calculation of estimated glomerular filtration rate > NRG Serum or plasma glucose measurement (mass/volume) 238 mg/dL 70-105 Serum or plasma calcium measurement (mass/volume) 8.4 mg/dL 8.5-10.1 Serum or plasma total bilirubin measurement (mass/volu me) 0.6 mg/dL 0.1-1.0 Serum or plasma alkaline phosphatase marivel surement (enzymatic activity/volume) 136 U/L 40-136 Serum or plasma aspartate aminotransfera se measurement (enzymatic activity/volume) 36 U/L 5-34 Serum or plasma alanine aminotransferase measurement (enzymatic activity/volume) 33 U/L 0-55 Serum or plasma protein measurement (mass/volume) 7.3 g/dL 6.4-8.2 Serum or plasma albumin measurement (mass/volume) 3.2 g/dL 3.2-4.5 Capillary blood glucose measurement by g lucometer (mass/volume) - 09/05/17 11:31 Capillary blood glucose measurement by glucometer (mas s/volume) 163 mg/dL 70-110 Capillary blood glucose measurement by g lucometer (mass/volume) - 09/05/17 16:26 Capillary blood glucose measurement by glucometer (mas s/volume) 230 mg/dL 70-110 Capillary blood glucose measurement by g lucometer (mass/volume) - 09/05/17 20:47 Capillary blood glucose measurement by glucometer (mas s/volume) 242 mg/dL 70-110 Capillary blood glucose measurement by g lucometer (mass/volume) - 09/06/17 05:47 Capillary blood glucose measurement by glucometer (mas s/volume) 167 mg/dL 70-110 Complete blood count (CBC) with automate d white blood cell (WBC) differential - 09/06/17 06:16 Blood leukocytes automated count (number/volume) 5.3 10*3/uL 4.3-11.0 Blood erythrocytes automated count (number/volume) 3.86 10*6/uL 4.35-5.85 Venous blood hemoglobin measurement (mass/volume) 11.4 g/dL 13.3-17.7 Blood hematocrit (volume fraction) 34 % 40-54 Automated erythrocyte mean corpuscular volume 89 [ foz_us] 80-99 Automated erythrocyte mean corpuscular h emoglobin (mass per erythrocyte) 30 pg 25-34 Automated erythrocyte mean corpuscular h emoglobin concentration measurement (mass/volume) 33 g/dL 32-36 Automated erythrocyte distribution width ratio 13. 8 % 10.0- 14.5 Automated blood platelet count (count/volume) 446 10*3/uL 130-400 Automated blood platelet mean volume measurement 10.8 [foz_us] 7.4-10.4 Automated blood neutrophils/100 leukocytes 51 % 42-75 Automated blood lymphocytes/100 leukocytes 34 % 12-44 Blood monocytes/100 leukocytes 12 % 0-12 Automated blood eosinophils/100 leukocytes 3 % 0-10 Automated blood basophils/100 leukocytes 0 % 0-10 Blood neutrophils automated count (number/volume) 2.7 10*3 1.8-7.8 Blood lymphocytes automated count (number/volume) 1.8 10*3 1.0-4.0 Blood monocytes automated count (number/volume) 0. 6 10*3 0.0-1.0 Automated eosinophil count 0.2 10*3/uL 0 .0-0.3 Automated blood basophil count (count/volume) 0.0 10*3/uL 0.0-0.1 Whole blood basic metabolic panel - 11/18 06:16 Serum or plasma sodium measurement (moles/volume) 138 mmol/L 135-145 Serum or plasma potassium measurement (moles/volume) 3.7 mmol/L 3.6-5.0 Serum or plasma chloride measurement (moles/volume) 105 mmol/L 98-107 Carbon dioxide 25 mmol/L 21-32 Serum or plasma anion gap determination (moles/volume) 8 mmol/L 5-14 Serum or plasma urea nitrogen measurement (mass/volume ) 11 mg/dL 7-18 Serum or plasma creatinine measurement (mass/volume) 0.75 mg/dL 0.60-1.30 Serum or plasma urea nitrogen/creatinine mass ratio 15 NRG Serum or plasma creatinine measurement w ith calculation of estimated glomerular filtration rate > NRG Serum or plasma glucose measurement (mass/volume) 181 mg/dL 70-105 Serum or plasma calcium measurement (mass/volume) 8.5 mg/dL 8.5-10.1 Magnesium - 09/06/17 06:16 Magnesium 1.6 mg/dL 1.8-2.4 Capillary blood glucose measurement by g lucometer (mass/volume) - 09/06/17 10:28 Capillary blood glucose measurement by glucometer (mas s/volume) 261 mg/dL 70-110 Capillary blood glucose measurement by g lucometer (mass/volume) - 09/06/17 16:41 Capillary blood glucose measurement by glucometer (mas s/volume) 179 mg/dL 70-110 Capillary blood glucose measurement by g lucometer (mass/volume) - 09/06/17 20:38 Capillary blood glucose measurement by glucometer (mas s/volume) 252 mg/dL 70-110 Capillary blood glucose measurement by g lucometer (mass/volume) - 09/07/17 06:04 Capillary blood glucose measurement by glucometer (mas s/volume) 133 mg/dL 70-110 Complete blood count (CBC) with automate d white blood cell (WBC) differential - 09/07/17 06:15 Blood leukocytes automated count (number/volume) 6.1 10*3/uL 4.3-11.0 Blood erythrocytes automated count (number/volume) 4.10 10*6/uL 4.35-5.85 Venous blood hemoglobin measurement (mass/volume) 12.0 g/dL 13.3-17.7 Blood hematocrit (volume fraction) 36 % 40-54 Automated erythrocyte mean corpuscular volume 88 [ foz_us] 80-99 Automated erythrocyte mean corpuscular h emoglobin (mass per erythrocyte) 29 pg 25-34 Automated erythrocyte mean corpuscular h emoglobin concentration measurement (mass/volume) 33 g/dL 32-36 Automated erythrocyte distribution width ratio 13. 9 % 10.0- 14.5 Automated blood platelet count (count/volume) 465 10*3/uL 130-400 Automated blood platelet mean volume measurement 10.6 [foz_us] 7.4-10.4 Automated blood neutrophils/100 leukocytes 58 % 42-75 Automated blood lymphocytes/100 leukocytes 28 % 12-44 Blood monocytes/100 leukocytes 10 % 0-12 Automated blood eosinophils/100 leukocytes 3 % 0-10 Automated blood basophils/100 leukocytes 1 % 0-10 Blood neutrophils automated count (number/volume) 3.6 10*3 1.8-7.8 Blood lymphocytes automated count (number/volume) 1.7 10*3 1.0-4.0 Blood monocytes automated count (number/volume) 0. 6 10*3 0.0-1.0 Automated eosinophil count 0.2 10*3/uL 0 .0-0.3 Automated blood basophil count (count/volume) 0.0 10*3/uL 0.0-0.1 Whole blood basic metabolic panel - 12/18 06:15 Serum or plasma sodium measurement (moles/volume) 140 mmol/L 135-145 Serum or plasma potassium measurement (moles/volume) 3.6 mmol/L 3.6-5.0 Serum or plasma chloride measurement (moles/volume) 105 mmol/L 98-107 Carbon dioxide 25 mmol/L 21-32 Serum or plasma anion gap determination (moles/volume) 10 mmol/L 5-14 Serum or plasma urea nitrogen measurement (mass/volume ) 11 mg/dL 7-18 Serum or plasma creatinine measurement (mass/volume) 0.70 mg/dL 0.60-1.30 Serum or plasma urea nitrogen/creatinine mass ratio 16 NRG Serum or plasma creatinine measurement w ith calculation of estimated glomerular filtration rate > NRG Serum or plasma glucose measurement (mass/volume) 136 mg/dL 70-105 Serum or plasma calcium measurement (mass/volume) 8.9 mg/dL 8.5-10.1 Capillary blood glucose measurement by g lucometer (mass/volume) - 09/07/17 11:19 Capillary blood glucose measurement by glucometer (mas s/volume) 205 mg/dL 70-110 Capillary blood glucose measurement by g lucometer (mass/volume) - 09/07/17 16:08 Capillary blood glucose measurement by glucometer (mas s/volume) 214 mg/dL 70-110 Capillary blood glucose measurement by g lucometer (mass/volume) - 09/07/17 20:33 Capillary blood glucose measurement by glucometer (mas s/volume) 213 mg/dL 70-110 Capillary blood glucose measurement by g lucometer (mass/volume) - 09/08/17 06:39 Capillary blood glucose measurement by glucometer (mas s/volume) 169 mg/dL 70-110 Automated blood complete blood count (he mogram) panel - 09/08/17 06:40 Blood leukocytes automated count (number/volume) 6.2 10*3/uL 4.3-11.0 Blood erythrocytes automated count (number/volume) 4.26 10*6/uL 4.35-5.85 Venous blood hemoglobin measurement (mass/volume) 12.5 g/dL 13.3-17.7 Blood hematocrit (volume fraction) 37 % 40-54 Automated erythrocyte mean corpuscular volume 87 [ foz_us] 80-99 Automated erythrocyte mean corpuscular h emoglobin (mass per erythrocyte) 29 pg 25-34 Automated erythrocyte mean corpuscular h emoglobin concentration measurement (mass/volume) 34 g/dL 32-36 Automated erythrocyte distribution width ratio 14. 0 % 10.0- 14.5 Automated blood platelet count (count/volume) 509 10*3/uL 130-400 Automated blood platelet mean volume measurement 10.8 [foz_us] 7.4-10.4 Whole blood basic metabolic panel - 01/18 06:40 Serum or plasma sodium measurement (moles/volume) 139 mmol/L 135-145 Serum or plasma potassium measurement (moles/volume) 3.8 mmol/L 3.6-5.0 Serum or plasma chloride measurement (moles/volume) 106 mmol/L 98-107 Carbon dioxide 24 mmol/L 21-32 Serum or plasma anion gap determination (moles/volume) 9 mmol/L 5-14 Serum or plasma urea nitrogen measurement (mass/volume ) 15 mg/dL 7-18 Serum or plasma creatinine measurement (mass/volume) 0.76 mg/dL 0.60-1.30 Serum or plasma urea nitrogen/creatinine mass ratio 20 NRG Serum or plasma creatinine measurement w ith calculation of estimated glomerular filtration rate > NRG Serum or plasma glucose measurement (mass/volume) 183 mg/dL 70-105 Serum or plasma calcium measurement (mass/volume) 9.1 mg/dL 8.5-10.1 Capillary blood glucose measurement by g lucometer (mass/volume) - 09/08/17 10:25 Capillary blood glucose measurement by glucometer (mas s/volume) 230 mg/dL 70-110 Human immunodeficiency virus (HIV) type 1 and 2 antibody detection - 09/16/17 14:40 HIV 1 + 2 ab ser IA Non-Reactive Non-Re activ Serum hepatitis C virus antibody assay ( units/volume) - 09/16/17 14:40 Serum hepatitis C virus antibody detection Reactiv e Non- Reactiv Hepatitis C virus ab signal/cutoff in serum or plasma by immunoassay > {index_val} 0.00-0.79 HEP C PCR QUANT (Graph)-APPROVAL REQUIRE D - 10/08/17 17:40 HCV RNA, QUANTITATIVE REAL TIME PCR [id number] IU/mL NOT DETECTED HCV RNA, QUANTITATIVE REAL TIME PCR 6.25 Log IU/mL NOT DETECTED COMMENT NRG Capillary blood glucose measurement by g lucometer (mass/volume) - 12/15/17 07:29 Capillary blood glucose measurement by glucometer (mas s/volume) 255 mg/dL 70-110 Urine drug screening test - 12/15/17 07: 35 Urine phencyclidine detection by screening method NEGATIVE NEGATIVE Urine benzodiazepines detection by screening method NEGATIVE NEGATIVE Urine cocaine detection NEGATIVE NEGATI VE Urine amphetamines detection by screening method N EGATIVE NEGATIVE Urine methamphetamine detection by screening method POSITIVE NEGATIVE Urine cannabinoids detection by screening method N EGATIVE NEGATIVE Urine opiates detection by screening method NEGATI VE NEGATIVE Urine barbiturates detection NEGATIVE N EGATIVE Screening urine tricyclic antidepressants detection NEGATIVE NEGATIVE Urine methadone detection by screening method NEGA TIVE NEGATIVE Urine oxycodone detection NEGATIVE NEGA TIVE Urine propoxyphene detection NEGATIVE N EGATIVE LIPID PANEL - 11/18/18 09:53 CHOLESTEROL, TOTAL 182 mg/dL <200 HDL CHOLESTEROL 35 mg/dL >40 TRIGLYCERIDES 145 mg/dL <150 LDL-CHOLESTEROL 121 mg/dL (calc) NRG CHOL/HDLC RATIO 5.2 (calc) <5.0 NON HDL CHOLESTEROL 147 mg/dL (calc) <13 0 PSA - 11/18/18 09:53 PSA, TOTAL 15.8 ng/mL < OR = 4.0 Complete blood count (CBC) with automate d white blood cell (WBC) differential - 04/21/19 13:53 Blood leukocytes automated count (number/volume) 6.2 10*3/uL 4.3-11.0 Blood erythrocytes automated count (number/volume) 4.75 10*6/uL 4.35-5.85 Venous blood hemoglobin measurement (mass/volume) 14.1 g/dL 13.3-17.7 Blood hematocrit (volume fraction) 41 % 40-54 Automated erythrocyte mean corpuscular volume 86 [ foz_us] 80-99 Automated erythrocyte mean corpuscular h emoglobin (mass per erythrocyte) 30 pg 25-34 Automated erythrocyte mean corpuscular h emoglobin concentration measurement (mass/volume) 35 g/dL 32-36 Automated erythrocyte distribution width ratio 13. 2 % 10.0- 14.5 Automated blood platelet count (count/volume) 323 10*3/uL 130-400 Automated blood platelet mean volume measurement 11.8 [foz_us] 7.4-10.4 Automated blood neutrophils/100 leukocytes 65 % 42-75 Automated blood lymphocytes/100 leukocytes 24 % 12-44 Blood monocytes/100 leukocytes 9 % 0-12 Automated blood eosinophils/100 leukocytes 2 % 0-10 Automated blood basophils/100 leukocytes 0 % 0-10 Blood neutrophils automated count (number/volume) 4.0 10*3 1.8-7.8 Blood lymphocytes automated count (number/volume) 1.5 10*3 1.0-4.0 Blood monocytes automated count (number/volume) 0. 6 10*3 0.0-1.0 Automated eosinophil count 0.1 10*3/uL 0 .0-0.3 Automated blood basophil count (count/volume) 0.0 10*3/uL 0.0-0.1 Comprehensive metabolic panel - 04/21/19 13:53 Serum or plasma sodium measurement (moles/volume) 135 mmol/L 135-145 Serum or plasma potassium measurement (moles/volume) 4.3 mmol/L 3.6-5.0 Serum or plasma chloride measurement (moles/volume) 102 mmol/L 98-107 Carbon dioxide 21 mmol/L 21-32 Serum or plasma anion gap determination (moles/volume) 12 mmol/L 5-14 Serum or plasma urea nitrogen measurement (mass/volume ) 13 mg/dL 7-18 Serum or plasma creatinine measurement (mass/volume) 0.80 mg/dL 0.60-1.30 Serum or plasma urea nitrogen/creatinine mass ratio 16 NRG Serum or plasma creatinine measurement w ith calculation of estimated glomerular filtration rate > NRG Serum or plasma glucose measurement (mass/volume) 292 mg/dL 70-105 Serum or plasma calcium measurement (mass/volume) 9.1 mg/dL 8.5-10.1 Serum or plasma total bilirubin measurement (mass/volu me) 0.5 mg/dL 0.1-1.0 Serum or plasma alkaline phosphatase marivel surement (enzymatic activity/volume) 118 U/L 40-136 Serum or plasma aspartate aminotransfera se measurement (enzymatic activity/volume) 26 U/L 5-34 Serum or plasma alanine aminotransferase measurement (enzymatic activity/volume) 30 U/L 0-55 Serum or plasma protein measurement (mass/volume) 7.4 g/dL 6.4-8.2 Serum or plasma albumin measurement (mass/volume) 3.6 g/dL 3.2-4.5 CALCIUM CORRECTED 9.4 mg/dL 8.5-10.1 Magnesium - 04/21/19 13:53 Magnesium 1.7 mg/dL 1.6-2.4 PT panel in platelet poor plasma by coag ulation assay - 04/21/19 13:53 Prothrombin time (PT) in platelet poor plasma by coagu lation assay 12.9 s 12.2-14.7 INR in platelet poor plasma or blood by coagulation as say 0.9 0.8-1.4 Activated partial thromboplastin time (a PTT) in platelet poor plasma bycoagulation assay - 04/21/19 13:53 Activated partial thromboplastin time (a PTT) in platelet poor plasma bycoagulation assay 28 s 24-35 Serum or plasma troponin i.cardiac measu rement (mass/volume) - 04/21/19 13:53 Serum or plasma troponin i.cardiac measurement (mass/v olume) 0.147 ng/mL <0.028 Myoglobin, serum - 04/21/19 13:53 Myoglobin, serum 56.6 ng/mL 10.0-92.0 Urine drug screening test - 04/21/19 16: 00 Urine phencyclidine detection by screening method NEGATIVE NEGATIVE Urine benzodiazepines detection by screening method NEGATIVE NEGATIVE Urine cocaine detection NEGATIVE NEGATI VE Urine amphetamines detection by screening method P OSITIVE NEGATIVE Urine methamphetamine detection by screening method POSITIVE NEGATIVE Urine cannabinoids detection by screening method N EGATIVE NEGATIVE Urine opiates detection by screening method POSITI VE NEGATIVE Urine barbiturates detection NEGATIVE N EGATIVE Screening urine tricyclic antidepressants detection NEGATIVE NEGATIVE Urine methadone detection by screening method NEGA TIVE NEGATIVE Urine oxycodone detection NEGATIVE NEGA TIVE Urine propoxyphene detection NEGATIVE N EGATIVE Capillary blood glucose measurement by g lucometer (mass/volume) - 04/21/19 20:15 Capillary blood glucose measurement by glucometer (mas s/volume) 211 mg/dL 70-110 Serum or plasma troponin i.cardiac measu rement (mass/volume) - 04/21/19 20:24 Serum or plasma troponin i.cardiac measurement (mass/v olume) 1.958 ng/mL <0.028 Automated blood complete blood count ([facility]) panel - 04/22/19 03:10 Blood leukocytes automated count (number/volume) 6.0 10*3/uL 4.3-11.0 Blood erythrocytes automated count (number/volume) 4.04 10*6/uL 4.35-5.85 Venous blood hemoglobin measurement (mass/volume) 11.9 g/dL 13.3-17.7 Blood hematocrit (volume fraction) 35 % 40-54 Automated erythrocyte mean corpuscular volume 88 [ foz_us] 80-99 Automated erythrocyte mean corpuscular h emoglobin (mass per erythrocyte) 29 pg 25-34 Automated erythrocyte mean corpuscular h emoglobin concentration measurement (mass/volume) 34 g/dL 32-36 Automated erythrocyte distribution width ratio 13. 6 % 10.0- 14.5 Automated blood platelet count (count/volume) 301 10*3/uL 130-400 Automated blood platelet mean volume measurement 11.8 [foz_us] 7.4-10.4 Comprehensive metabolic panel - 04/22/19 03:10 Serum or plasma sodium measurement (moles/volume) 136 mmol/L 135-145 Serum or plasma potassium measurement (moles/volume) 3.4 mmol/L 3.6-5.0 Serum or plasma chloride measurement (moles/volume) 105 mmol/L 98-107 Carbon dioxide 24 mmol/L 21-32 Serum or plasma anion gap determination (moles/volume) 7 mmol/L 5-14 Serum or plasma urea nitrogen measurement (mass/volume ) 13 mg/dL 7-18 Serum or plasma creatinine measurement (mass/volume) 0.77 mg/dL 0.60-1.30 Serum or plasma urea nitrogen/creatinine mass ratio 17 NRG Serum or plasma creatinine measurement w ith calculation of estimated glomerular filtration rate > NRG Serum or plasma glucose measurement (mass/volume) 273 mg/dL 70-105 Serum or plasma calcium measurement (mass/volume) 8.1 mg/dL 8.5-10.1 Serum or plasma total bilirubin measurement (mass/volu me) 0.4 mg/dL 0.1-1.0 Serum or plasma alkaline phosphatase marivel surement (enzymatic activity/volume) 115 U/L 40-136 Serum or plasma aspartate aminotransfera se measurement (enzymatic activity/volume) 31 U/L 5-34 Serum or plasma alanine aminotransferase measurement (enzymatic activity/volume) 26 U/L 0-55 Serum or plasma protein measurement (mass/volume) 6.0 g/dL 6.4-8.2 Serum or plasma albumin measurement (mass/volume) 2.9 g/dL 3.2-4.5 CALCIUM CORRECTED 9.0 mg/dL 8.5-10.1 Serum or plasma troponin i.cardiac measu rement (mass/volume) - 04/22/19 03:10 Serum or plasma troponin i.cardiac measurement (mass/v olume) 3.470 ng/mL <0.028 Lipid 1996 panel - 04/22/19 03:10 Serum or plasma triglyceride measurement (mass/volume) 169 mg/dL <150 Serum or plasma cholesterol measurement (mass/volume) 134 mg/dL < 200 Serum or plasma cholesterol in HDL measurement (mass/v olume) 24 mg/dL 40-60 Cholesterol in LDL [mass/volume] in serum or plasma by direct assay 92 mg/dL 1-129 Serum or plasma cholesterol in VLDL measurement (mass/ volume) 34 mg/dL 5-40 Capillary blood glucose measurement by g lucometer (mass/volume) - 04/22/19 11:23 Capillary blood glucose measurement by glucometer (mas s/volume) 276 mg/dL 70-110 Complete blood count (CBC) with automate d white blood cell (WBC) differential - 04/30/19 01:06 Blood leukocytes automated count (number/volume) 6.7 10*3/uL 4.3-11.0 Blood erythrocytes automated count (number/volume) 4.28 10*6/uL 4.35-5.85 Venous blood hemoglobin measurement (mass/volume) 12.6 g/dL 13.3-17.7 Blood hematocrit (volume fraction) 37 % 40-54 Automated erythrocyte mean corpuscular volume 86 [ foz_us] 80-99 Automated erythrocyte mean corpuscular h emoglobin (mass per erythrocyte) 29 pg 25-34 Automated erythrocyte mean corpuscular h emoglobin concentration measurement (mass/volume) 34 g/dL 32-36 Automated erythrocyte distribution width ratio 13. 6 % 10.0- 14.5 Automated blood platelet count (count/volume) 454 10*3/uL 130-400 Automated blood platelet mean volume measurement 11.0 [foz_us] 7.4-10.4 Automated blood neutrophils/100 leukocytes 60 % 42-75 Automated blood lymphocytes/100 leukocytes 27 % 12-44 Blood monocytes/100 leukocytes 9 % 0-12 Automated blood eosinophils/100 leukocytes 3 % 0-10 Automated blood basophils/100 leukocytes 0 % 0-10 Blood neutrophils automated count (number/volume) 4.0 10*3 1.8-7.8 Blood lymphocytes automated count (number/volume) 1.8 10*3 1.0-4.0 Blood monocytes automated count (number/volume) 0. 6 10*3 0.0-1.0 Automated eosinophil count 0.2 10*3/uL 0 .0-0.3 Automated blood basophil count (count/volume) 0.0 10*3/uL 0.0-0.1 Fibrin D-dimer FEU measurement in platel et poor plasma (mass/volume) - 04/30/19 01:06 Fibrin D-dimer FEU measurement in platelet poor plasma (mass/volume) 1.52 ug/mL 0.00-0.49 PT panel in platelet poor plasma by coag ulation assay - 04/30/19 01:06 Prothrombin time (PT) in platelet poor plasma by coagu lation assay 13.0 s 12.2-14.7 INR in platelet poor plasma or blood by coagulation as say 1.0 0.8-1.4 Activated partial thromboplastin time (a PTT) in platelet poor plasma bycoagulation assay - 04/30/19 01:06 Activated partial thromboplastin time (a PTT) in platelet poor plasma bycoagulation assay 27 s 24-35 Comprehensive metabolic panel - 04/30/19 01:06 Serum or plasma sodium measurement (moles/volume) 135 mmol/L 135-145 Serum or plasma potassium measurement (moles/volume) 4.3 mmol/L 3.6-5.0 Serum or plasma chloride measurement (moles/volume) 102 mmol/L 98-107 Carbon dioxide 20 mmol/L 21-32 Serum or plasma anion gap determination (moles/volume) 13 mmol/L 5-14 Serum or plasma urea nitrogen measurement (mass/volume ) 18 mg/dL 7-18 Serum or plasma creatinine measurement (mass/volume) 0.86 mg/dL 0.60-1.30 Serum or plasma urea nitrogen/creatinine mass ratio 21 NRG Serum or plasma creatinine measurement w ith calculation of estimated glomerular filtration rate > NRG Serum or plasma glucose measurement (mass/volume) 405 mg/dL 70-105 Serum or plasma calcium measurement (mass/volume) 8.8 mg/dL 8.5-10.1 Serum or plasma total bilirubin measurement (mass/volu me) 0.7 mg/dL 0.1-1.0 Serum or plasma alkaline phosphatase marivel surement (enzymatic activity/volume) 149 U/L 40-136 Serum or plasma aspartate aminotransfera se measurement (enzymatic activity/volume) 34 U/L 5-34 Serum or plasma alanine aminotransferase measurement (enzymatic activity/volume) 44 U/L 0-55 Serum or plasma protein measurement (mass/volume) 7.5 g/dL 6.4-8.2 Serum or plasma albumin measurement (mass/volume) 3.6 g/dL 3.2-4.5 CALCIUM CORRECTED 9.1 mg/dL 8.5-10.1 Magnesium - 04/30/19 01:06 Magnesium 1.8 mg/dL 1.6-2.4 Serum or plasma troponin i.cardiac measu rement (mass/volume) - 04/30/19 01:06 Serum or plasma troponin i.cardiac measurement (mass/v olume) 0.031 ng/mL <0.028 Myoglobin, serum - 04/30/19 01:06 Myoglobin, serum 24.2 ng/mL 10.0-92.0 Serum or plasma lithium measurement (mol es/volume) - 04/30/19 01:06 BNP PT 45.9 pg/mL <100.0 Serum or plasma ethanol measurement (mas s/volume) - 04/30/19 01:06 Serum or plasma ethanol measurement (mass/volume) 13 mg/dL <10 Capillary blood glucose measurement by g lucometer (mass/volume) - 04/30/19 01:08 Capillary blood glucose measurement by glucometer (mas s/volume) 376 mg/dL 70-110 Complete urinalysis with reflex to cultu re - 04/30/19 01:15 Urine color determination YELLOW NRG Urine clarity determination CLEAR NR G Urine pH measurement by test strip 6 5-9 Specific gravity of urine by test strip 1.015 1.016-1.022 Urine protein assay by test strip, semi-quantitative NEGATIVE NEGATIVE Urine glucose detection by automated test strip 4+ NEGATIVE Erythrocytes detection in urine sediment by light micr oscopy NEGATIVE NEGATIVE Urine ketones detection by automated test strip 1+ NEGATIVE Urine nitrite detection by test strip NEGATIVE NEGATIVE Urine total bilirubin detection by test strip NEGA TIVE NEGATIVE Urine urobilinogen measurement by automated test strip (mass/volume) NORMAL NORMAL Urine leukocyte esterase detection by dipstick NEG ATIVE NEGATIVE Automated urine sediment erythrocyte cou nt by microscopy (number/high power field) NONE NRG Automated urine sediment leukocyte count by microscopy (number/high power field) NONE NRG Bacteria detection in urine sediment by light microsco py TRACE NRG Squamous epithelial cells detection in u rine sediment by light microscopy 0-2 NRG Crystals detection in urine sediment by light microsco py NONE NRG Casts detection in urine sediment by light microscopy NONE NRG Mucus detection in urine sediment by light microscopy NEGATIVE NRG Complete urinalysis with reflex to culture NO NRG Urine drug screening test - 04/30/19 01: 15 Urine phencyclidine detection by screening method NEGATIVE NEGATIVE Urine benzodiazepines detection by screening method NEGATIVE NEGATIVE Urine cocaine detection NEGATIVE NEGATI VE Urine amphetamines detection by screening method N EGATIVE NEGATIVE Urine methamphetamine detection by screening method NEGATIVE NEGATIVE Urine cannabinoids detection by screening method N EGATIVE NEGATIVE Urine opiates detection by screening method NEGATI VE NEGATIVE Urine barbiturates detection NEGATIVE N EGATIVE Screening urine tricyclic antidepressants detection NEGATIVE NEGATIVE Urine methadone detection by screening method NEGA TIVE NEGATIVE Urine oxycodone detection NEGATIVE NEGA TIVE Urine propoxyphene detection NEGATIVE N EGATIVE Lipase - 04/30/19 02:30 Lipase 41 U/L 8-78 Capillary blood glucose measurement by g lucometer (mass/volume) - 04/30/19 02:45 Capillary blood glucose measurement by glucometer (mas s/volume) 282 mg/dL 70-110 Capillary blood glucose measurement by g lucometer (mass/volume) - 04/30/19 05:47 Capillary blood glucose measurement by glucometer (mas s/volume) 417 mg/dL 70-110 Serum or plasma troponin i.cardiac measu rement (mass/volume) - 04/30/19 07:04 Serum or plasma troponin i.cardiac measurement (mass/v olume) < ng/mL <0.028 Capillary blood glucose measurement by g lucometer (mass/volume) - 04/30/19 11:29 Capillary blood glucose measurement by glucometer (mas s/volume) 214 mg/dL 70-110 Serum or plasma troponin i.cardiac measu rement (mass/volume) - 04/30/19 13:11 Serum or plasma troponin i.cardiac measurement (mass/v olume) 0.030 ng/mL <0.028 Capillary blood glucose measurement by g lucometer (mass/volume) - 04/30/19 15:59 Capillary blood glucose measurement by glucometer (mas s/volume) 222 mg/dL 70-110 Capillary blood glucose measurement by g lucometer (mass/volume) - 04/30/19 20:31 Capillary blood glucose measurement by glucometer (mas s/volume) 212 mg/dL 70-110 Capillary blood glucose measurement by g lucometer (mass/volume) - 05/01/19 04:41 Capillary blood glucose measurement by glucometer (mas s/volume) 267 mg/dL 70-110 Lipid 1996 panel - 05/01/19 05:04 Serum or plasma triglyceride measurement (mass/volume) 104 mg/dL <150 Serum or plasma cholesterol measurement (mass/volume) 141 mg/dL < 200 Serum or plasma cholesterol in HDL measurement (mass/v olume) 31 mg/dL 40-60 Cholesterol in LDL [mass/volume] in serum or plasma by direct assay 94 mg/dL 1-129 Serum or plasma cholesterol in VLDL measurement (mass/ volume) 21 mg/dL 5-40 Capillary blood glucose measurement by g lucometer (mass/volume) - 05/01/19 10:59 Capillary blood glucose measurement by glucometer (mas s/volume) 249 mg/dL 70-110 Capillary blood glucose measurement by g lucometer (mass/volume) - 05/01/19 16:02 Capillary blood glucose measurement by glucometer (mas s/volume) 218 mg/dL 70-110 Capillary blood glucose measurement by g lucometer (mass/volume) - 05/01/19 21:00 Capillary blood glucose measurement by glucometer (mas s/volume) 233 mg/dL 70-110 Capillary blood glucose measurement by g lucometer (mass/volume) - 05/02/19 06:21 Capillary blood glucose measurement by glucometer (mas s/volume) 241 mg/dL 70-110 Capillary blood glucose measurement by g lucometer (mass/volume) - 05/02/19 12:32 Capillary blood glucose measurement by glucometer (mas s/volume) 238 mg/dL 70-110 Capillary blood glucose measurement by g lucometer (mass/volume) - 05/02/19 16:53 Capillary blood glucose measurement by glucometer (mas s/volume) 197 mg/dL 70-110 Methicillin resistant Staphylococcus aur eus (MRSA) screening culture - 05/02/19 17:16 Methicillin resistant Staphylococcus aureus (MRSA) scr eening culture NEG NRG Capillary blood glucose measurement by g lucometer (mass/volume) - 05/02/19 21:04 Capillary blood glucose measurement by glucometer (mas s/volume) 340 mg/dL 70-110 Automated blood complete blood count (he mogram) panel - 05/03/19 03:03 Blood leukocytes automated count (number/volume) 6.5 10*3/uL 4.3-11.0 Blood erythrocytes automated count (number/volume) 3.91 10*6/uL 4.35-5.85 Venous blood hemoglobin measurement (mass/volume) 11.4 g/dL 13.3-17.7 Blood hematocrit (volume fraction) 35 % 40-54 Automated erythrocyte mean corpuscular volume 90 [ foz_us] 80-99 Automated erythrocyte mean corpuscular h emoglobin (mass per erythrocyte) 29 pg 25-34 Automated erythrocyte mean corpuscular h emoglobin concentration measurement (mass/volume) 33 g/dL 32-36 Automated erythrocyte distribution width ratio 14. 1 % 10.0- 14.5 Automated blood platelet count (count/volume) 357 10*3/uL 130-400 Automated blood platelet mean volume measurement 10.9 [foz_us] 7.4-10.4 Whole blood basic metabolic panel - 08/21 03:03 Serum or plasma sodium measurement (moles/volume) 140 mmol/L 135-145 Serum or plasma potassium measurement (moles/volume) 3.9 mmol/L 3.6-5.0 Serum or plasma chloride measurement (moles/volume) 108 mmol/L 98-107 Carbon dioxide 25 mmol/L 21-32 Serum or plasma anion gap determination (moles/volume) 7 mmol/L 5-14 Serum or plasma urea nitrogen measurement (mass/volume ) 13 mg/dL 7-18 Serum or plasma creatinine measurement (mass/volume) 0.75 mg/dL 0.60-1.30 Serum or plasma urea nitrogen/creatinine mass ratio 17 NRG Serum or plasma creatinine measurement w ith calculation of estimated glomerular filtration rate > NRG Serum or plasma glucose measurement (mass/volume) 178 mg/dL 70-105 Serum or plasma calcium measurement (mass/volume) 8.3 mg/dL 8.5-10.1 Capillary blood glucose measurement by g lucometer (mass/volume) - 05/03/19 06:20 Capillary blood glucose measurement by glucometer (mas s/volume) 202 mg/dL 70-110 Capillary blood glucose measurement by g lucometer (mass/volume) - 05/03/19 10:33 Capillary blood glucose measurement by glucometer (mas s/volume) 233 mg/dL 70-110 Complete blood count (CBC) with automate d white blood cell (WBC) differential - 05/04/19 19:00 Blood leukocytes automated count (number/volume) 8.0 10*3/uL 4.3-11.0 Blood erythrocytes automated count (number/volume) 4.32 10*6/uL 4.35-5.85 Venous blood hemoglobin measurement (mass/volume) 12.9 g/dL 13.3-17.7 Blood hematocrit (volume fraction) 38 % 40-54 Automated erythrocyte mean corpuscular volume 88 [ foz_us] 80-99 Automated erythrocyte mean corpuscular h emoglobin (mass per erythrocyte) 30 pg 25-34 Automated erythrocyte mean corpuscular h emoglobin concentration measurement (mass/volume) 34 g/dL 32-36 Automated erythrocyte distribution width ratio 14. 1 % 10.0- 14.5 Automated blood platelet count (count/volume) 430 10*3/uL 130-400 Automated blood platelet mean volume measurement 11.4 [foz_us] 7.4-10.4 Automated blood neutrophils/100 leukocytes 55 % 42-75 Automated blood lymphocytes/100 leukocytes 28 % 12-44 Blood monocytes/100 leukocytes 13 % 0-12 Automated blood eosinophils/100 leukocytes 4 % 0-10 Automated blood basophils/100 leukocytes 0 % 0-10 Blood neutrophils automated count (number/volume) 4.4 10*3 1.8-7.8 Blood lymphocytes automated count (number/volume) 2.2 10*3 1.0-4.0 Blood monocytes automated count (number/volume) 1. 0 10*3 0.0-1.0 Automated eosinophil count 0.3 10*3/uL 0 .0-0.3 Automated blood basophil count (count/volume) 0.0 10*3/uL 0.0-0.1 Blood blood smear finding identification by light micr oscopy YES NRG PT panel in platelet poor plasma by coag ulation assay - 05/04/19 19:00 Prothrombin time (PT) in platelet poor plasma by coagu lation assay 12.4 s 12.2-14.7 INR in platelet poor plasma or blood by coagulation as say 0.9 0.8-1.4 Activated partial thromboplastin time (a PTT) in platelet poor plasma bycoagulation assay - 05/04/19 19:00 Activated partial thromboplastin time (a PTT) in platelet poor plasma bycoagulation assay 29 s 24-35 Comprehensive metabolic panel - 05/04/19 19:00 Serum or plasma sodium measurement (moles/volume) 136 mmol/L 135-145 Serum or plasma potassium measurement (moles/volume) 4.3 mmol/L 3.6-5.0 Serum or plasma chloride measurement (moles/volume) 101 mmol/L 98-107 Carbon dioxide 28 mmol/L 21-32 Serum or plasma anion gap determination (moles/volume) 7 mmol/L 5-14 Serum or plasma urea nitrogen measurement (mass/volume ) 18 mg/dL 7-18 Serum or plasma creatinine measurement (mass/volume) 0.90 mg/dL 0.60-1.30 Serum or plasma urea nitrogen/creatinine mass ratio 20 NRG Serum or plasma creatinine measurement w ith calculation of estimated glomerular filtration rate > NRG Serum or plasma glucose measurement (mass/volume) 289 mg/dL 70-105 Serum or plasma calcium measurement (mass/volume) 9.9 mg/dL 8.5-10.1 Serum or plasma total bilirubin measurement (mass/volu me) 0.8 mg/dL 0.1-1.0 Serum or plasma alkaline phosphatase marivel surement (enzymatic activity/volume) 181 U/L 40-136 Serum or plasma aspartate aminotransfera se measurement (enzymatic activity/volume) 29 U/L 5-34 Serum or plasma alanine aminotransferase measurement (enzymatic activity/volume) 50 U/L 0-55 Serum or plasma protein measurement (mass/volume) 7.8 g/dL 6.4-8.2 Serum or plasma albumin measurement (mass/volume) 3.9 g/dL 3.2-4.5 CALCIUM CORRECTED 10.0 mg/dL 8.5-10.1 Magnesium - 05/04/19 19:00 Magnesium 2.0 mg/dL 1.6-2.4 Serum or plasma troponin i.cardiac measu rement (mass/volume) - 05/04/19 19:00 Serum or plasma troponin i.cardiac measurement (mass/v olume) < ng/mL <0.028 Myoglobin, serum - 05/04/19 19:00 Myoglobin, serum 17.9 ng/mL 10.0-92.0 Serum or plasma lithium measurement (mol es/volume) - 05/04/19 19:00 BNP PT 115.1 pg/mL <100.0 Activated partial thromboplastin time (a PTT) in platelet poor plasma bycoagulation assay - 05/04/19 22:58 Activated partial thromboplastin time (a PTT) in platelet poor plasma bycoagulation assay 28 s 24-35 Automated blood complete blood count (he mogram) panel - 05/05/19 05:20 Blood leukocytes automated count (number/volume) 9.4 10*3/uL 4.3-11.0 Blood erythrocytes automated count (number/volume) 3.95 10*6/uL 4.35-5.85 Venous blood hemoglobin measurement (mass/volume) 11.9 g/dL 13.3-17.7 Blood hematocrit (volume fraction) 35 % 40-54 Automated erythrocyte mean corpuscular volume 89 [ foz_us] 80-99 Automated erythrocyte mean corpuscular h emoglobin (mass per erythrocyte) 30 pg 25-34 Automated erythrocyte mean corpuscular h emoglobin concentration measurement (mass/volume) 34 g/dL 32-36 Automated erythrocyte distribution width ratio 14. 2 % 10.0- 14.5 Automated blood platelet count (count/volume) 373 10*3/uL 130-400 Automated blood platelet mean volume measurement 11.0 [foz_us] 7.4-10.4 Whole blood basic metabolic panel - 10/19 05:20 Serum or plasma sodium measurement (moles/volume) 137 mmol/L 135-145 Serum or plasma potassium measurement (moles/volume) 4.9 mmol/L 3.6-5.0 Serum or plasma chloride measurement (moles/volume) 102 mmol/L 98-107 Carbon dioxide 27 mmol/L 21-32 Serum or plasma anion gap determination (moles/volume) 8 mmol/L 5-14 Serum or plasma urea nitrogen measurement (mass/volume ) 15 mg/dL 7-18 Serum or plasma creatinine measurement (mass/volume) 0.87 mg/dL 0.60-1.30 Serum or plasma urea nitrogen/creatinine mass ratio 17 NRG Serum or plasma creatinine measurement w ith calculation of estimated glomerular filtration rate > NRG Serum or plasma glucose measurement (mass/volume) 329 mg/dL 70-105 Serum or plasma calcium measurement (mass/volume) 9.1 mg/dL 8.5-10.1 Serum or plasma troponin i.cardiac measu rement (mass/volume) - 05/05/19 05:20 Serum or plasma troponin i.cardiac measurement (mass/v olume) 105.741 ng/mL <0.028 Lipid 1996 panel - 05/05/19 05:20 Serum or plasma triglyceride measurement (mass/volume) 106 mg/dL <150 Serum or plasma cholesterol measurement (mass/volume) 135 mg/dL < 200 Serum or plasma cholesterol in HDL measurement (mass/v olume) 33 mg/dL 40-60 Cholesterol in LDL [mass/volume] in serum or plasma by direct assay 91 mg/dL 1-129 Serum or plasma cholesterol in VLDL measurement (mass/ volume) 21 mg/dL 5-40 Capillary blood glucose measurement by g lucometer (mass/volume) - 05/05/19 11:09 Capillary blood glucose measurement by glucometer (mas s/volume) 257 mg/dL 70-110 Capillary blood glucose measurement by g lucometer (mass/volume) - 05/05/19 15:52 Capillary blood glucose measurement by glucometer (mas s/volume) 266 mg/dL 70-110 Capillary blood glucose measurement by g lucometer (mass/volume) - 05/05/19 21:15 Capillary blood glucose measurement by glucometer (mas s/volume) 325 mg/dL 70-110 Capillary blood glucose measurement by g lucometer (mass/volume) - 05/06/19 05:56 Capillary blood glucose measurement by glucometer (mas s/volume) 268 mg/dL 70-110 Complete blood count (CBC) with automate d white blood cell (WBC) differential - 05/06/19 06:55 Blood leukocytes automated count (number/volume) 7.6 10*3/uL 4.3-11.0 Blood erythrocytes automated count (number/volume) 4.04 10*6/uL 4.35-5.85 Venous blood hemoglobin measurement (mass/volume) 12.1 g/dL 13.3-17.7 Blood hematocrit (volume fraction) 36 % 40-54 Automated erythrocyte mean corpuscular volume 89 [ foz_us] 80-99 Automated erythrocyte mean corpuscular h emoglobin (mass per erythrocyte) 30 pg 25-34 Automated erythrocyte mean corpuscular h emoglobin concentration measurement (mass/volume) 34 g/dL 32-36 Automated erythrocyte distribution width ratio 14. 3 % 10.0- 14.5 Automated blood platelet count (count/volume) 369 10*3/uL 130-400 Automated blood platelet mean volume measurement 10.9 [foz_us] 7.4-10.4 Automated blood neutrophils/100 leukocytes 60 % 42-75 Automated blood lymphocytes/100 leukocytes 23 % 12-44 Blood monocytes/100 leukocytes 13 % 0-12 Automated blood eosinophils/100 leukocytes 4 % 0-10 Automated blood basophils/100 leukocytes 0 % 0-10 Blood neutrophils automated count (number/volume) 4.5 10*3 1.8-7.8 Blood lymphocytes automated count (number/volume) 1.7 10*3 1.0-4.0 Blood monocytes automated count (number/volume) 1. 0 10*3 0.0-1.0 Automated eosinophil count 0.3 10*3/uL 0 .0-0.3 Automated blood basophil count (count/volume) 0.0 10*3/uL 0.0-0.1 Whole blood basic metabolic panel - 11/19 06:55 Serum or plasma sodium measurement (moles/volume) 137 mmol/L 135-145 Serum or plasma potassium measurement (moles/volume) 3.8 mmol/L 3.6-5.0 Serum or plasma chloride measurement (moles/volume) 103 mmol/L 98-107 Carbon dioxide 24 mmol/L 21-32 Serum or plasma anion gap determination (moles/volume) 10 mmol/L 5-14 Serum or plasma urea nitrogen measurement (mass/volume ) 17 mg/dL 7-18 Serum or plasma creatinine measurement (mass/volume) 0.71 mg/dL 0.60-1.30 Serum or plasma urea nitrogen/creatinine mass ratio 24 NRG Serum or plasma creatinine measurement w ith calculation of estimated glomerular filtration rate > NRG Serum or plasma glucose measurement (mass/volume) 245 mg/dL 70-105 Serum or plasma calcium measurement (mass/volume) 8.7 mg/dL 8.5-10.1 Capillary blood glucose measurement by g lucometer (mass/volume) - 05/06/19 10:54 Capillary blood glucose measurement by glucometer (mas s/volume) 263 mg/dL 70-110 Capillary blood glucose measurement by g lucometer (mass/volume) - 05/06/19 16:10 Capillary blood glucose measurement by glucometer (mas s/volume) 256 mg/dL 70-110 Capillary blood glucose measurement by g lucometer (mass/volume) - 05/06/19 21:30 Capillary blood glucose measurement by glucometer (mas s/volume) 263 mg/dL 70-110 Whole blood basic metabolic panel - 12/19 04:10 Serum or plasma sodium measurement (moles/volume) 137 mmol/L 135-145 Serum or plasma potassium measurement (moles/volume) 4.0 mmol/L 3.6-5.0 Serum or plasma chloride measurement (moles/volume) 104 mmol/L 98-107 Carbon dioxide 25 mmol/L 21-32 Serum or plasma anion gap determination (moles/volume) 8 mmol/L 5-14 Serum or plasma urea nitrogen measurement (mass/volume ) 19 mg/dL 7-18 Serum or plasma creatinine measurement (mass/volume) 0.78 mg/dL 0.60-1.30 Serum or plasma urea nitrogen/creatinine mass ratio 24 NRG Serum or plasma creatinine measurement w ith calculation of estimated glomerular filtration rate > NRG Serum or plasma glucose measurement (mass/volume) 280 mg/dL 70-105 Serum or plasma calcium measurement (mass/volume) 8.7 mg/dL 8.5-10.1 Complete blood count (CBC) with automate d white blood cell (WBC) differential - 05/07/19 04:15 Blood leukocytes automated count (number/volume) 6.4 10*3/uL 4.3-11.0 Blood erythrocytes automated count (number/volume) 3.97 10*6/uL 4.35-5.85 Venous blood hemoglobin measurement (mass/volume) 11.9 g/dL 13.3-17.7 Blood hematocrit (volume fraction) 36 % 40-54 Automated erythrocyte mean corpuscular volume 89 [ foz_us] 80-99 Automated erythrocyte mean corpuscular h emoglobin (mass per erythrocyte) 30 pg 25-34 Automated erythrocyte mean corpuscular h emoglobin concentration measurement (mass/volume) 34 g/dL 32-36 Automated erythrocyte distribution width ratio 14. 3 % 10.0- 14.5 Automated blood platelet count (count/volume) 372 10*3/uL 130-400 Automated blood platelet mean volume measurement 11.5 [foz_us] 7.4-10.4 Automated blood neutrophils/100 leukocytes 60 % 42-75 Automated blood lymphocytes/100 leukocytes 23 % 12-44 Blood monocytes/100 leukocytes 13 % 0-12 Automated blood eosinophils/100 leukocytes 4 % 0-10 Automated blood basophils/100 leukocytes 0 % 0-10 Blood neutrophils automated count (number/volume) 3.8 10*3 1.8-7.8 Blood lymphocytes automated count (number/volume) 1.5 10*3 1.0-4.0 Blood monocytes automated count (number/volume) 0. 8 10*3 0.0-1.0 Automated eosinophil count 0.3 10*3/uL 0 .0-0.3 Automated blood basophil count (count/volume) 0.0 10*3/uL 0.0-0.1 Capillary blood glucose measurement by g lucometer (mass/volume) - 05/07/19 11:00 Capillary blood glucose measurement by glucometer (mas s/volume) 373 mg/dL 70-110 Capillary blood glucose measurement by g lucometer (mass/volume) - 05/07/19 15:41 Capillary blood glucose measurement by glucometer (mas s/volume) 286 mg/dL 70-110 Capillary blood glucose measurement by g lucometer (mass/volume) - 05/07/19 20:38 Capillary blood glucose measurement by glucometer (mas s/volume) 300 mg/dL 70-110 Capillary blood glucose measurement by g lucometer (mass/volume) - 05/08/19 05:03 Capillary blood glucose measurement by glucometer (mas s/volume) 232 mg/dL 70-110 Automated blood complete blood count (he mogram) panel - 05/08/19 05:55 Blood leukocytes automated count (number/volume) 6.7 10*3/uL 4.3-11.0 Blood erythrocytes automated count (number/volume) 4.12 10*6/uL 4.35-5.85 Venous blood hemoglobin measurement (mass/volume) 12.2 g/dL 13.3-17.7 Blood hematocrit (volume fraction) 37 % 40-54 Automated erythrocyte mean corpuscular volume 89 [ foz_us] 80-99 Automated erythrocyte mean corpuscular h emoglobin (mass per erythrocyte) 30 pg 25-34 Automated erythrocyte mean corpuscular h emoglobin concentration measurement (mass/volume) 33 g/dL 32-36 Automated erythrocyte distribution width ratio 14. 5 % 10.0- 14.5 Automated blood platelet count (count/volume) 398 10*3/uL 130-400 Automated blood platelet mean volume measurement 11.1 [foz_us] 7.4-10.4 Comprehensive metabolic panel - 05/08/19 05:55 Serum or plasma sodium measurement (moles/volume) 138 mmol/L 135-145 Serum or plasma potassium measurement (moles/volume) 4.7 mmol/L 3.6-5.0 Serum or plasma chloride measurement (moles/volume) 102 mmol/L 98-107 Carbon dioxide 26 mmol/L 21-32 Serum or plasma anion gap determination (moles/volume) 10 mmol/L 5-14 Serum or plasma urea nitrogen measurement (mass/volume ) 21 mg/dL 7-18 Serum or plasma creatinine measurement (mass/volume) 0.97 mg/dL 0.60-1.30 Serum or plasma urea nitrogen/creatinine mass ratio 22 NRG Serum or plasma creatinine measurement w ith calculation of estimated glomerular filtration rate > NRG Serum or plasma glucose measurement (mass/volume) 265 mg/dL 70-105 Serum or plasma calcium measurement (mass/volume) 9.3 mg/dL 8.5-10.1 Serum or plasma total bilirubin measurement (mass/volu me) 1.1 mg/dL 0.1-1.0 Serum or plasma alkaline phosphatase marivel surement (enzymatic activity/volume) 125 U/L 40-136 Serum or plasma aspartate aminotransfera se measurement (enzymatic activity/volume) 43 U/L 5-34 Serum or plasma alanine aminotransferase measurement (enzymatic activity/volume) 55 U/L 0-55 Serum or plasma protein measurement (mass/volume) 7.2 g/dL 6.4-8.2 Serum or plasma albumin measurement (mass/volume) 3.4 g/dL 3.2-4.5 CALCIUM CORRECTED 9.8 mg/dL 8.5-10.1 Capillary blood glucose measurement by g lucometer (mass/volume) - 05/08/19 11:14 Capillary blood glucose measurement by glucometer (mas s/volume) 295 mg/dL 70-110 Complete urinalysis with reflex to cultu re - 09/07/19 11:33 Urine color determination YELLOW NRG Urine clarity determination CLEAR NR G Urine pH measurement by test strip 6.5 5-9 Specific gravity of urine by test strip 1.010 1.016-1.022 Urine protein assay by test strip, semi-quantitative NEGATIVE NEGATIVE Urine glucose detection by automated test strip 3+ NEGATIVE Erythrocytes detection in urine sediment by light micr oscopy NEGATIVE NEGATIVE Urine ketones detection by automated test strip NE GATIVE NEGATIVE Urine nitrite detection by test strip NEGATIVE NEGATIVE Urine total bilirubin detection by test strip NEGA TIVE NEGATIVE Urine urobilinogen measurement by automated test strip (mass/volume) 0.2 mg/dL < = 1.0 Urine leukocyte esterase detection by dipstick NEG ATIVE NEGATIVE Automated urine sediment erythrocyte cou nt by microscopy (number/high power field) NONE NRG Automated urine sediment leukocyte count by microscopy (number/high power field) RARE NRG Bacteria detection in urine sediment by light microsco py NEGATIVE NRG Squamous epithelial cells detection in u rine sediment by light microscopy 5-10 NRG Crystals detection in urine sediment by light microsco py NONE NRG Casts detection in urine sediment by light microscopy NONE NRG Mucus detection in urine sediment by light microscopy NEGATIVE NRG Complete urinalysis with reflex to culture NO NRG Automated blood complete blood count (he mogram) panel - 09/07/19 11:39 Blood leukocytes automated count (number/volume) 6.5 10*3/uL 4.3-11.0 Blood erythrocytes automated count (number/volume) 5.11 10*6/uL 4.35-5.85 Venous blood hemoglobin measurement (mass/volume) 14.7 g/dL 13.3-17.7 Blood hematocrit (volume fraction) 44 % 40-54 Automated erythrocyte mean corpuscular volume 86 [ foz_us] 80-99 Automated erythrocyte mean corpuscular h emoglobin (mass per erythrocyte) 29 pg 25-34 Automated erythrocyte mean corpuscular h emoglobin concentration measurement (mass/volume) 34 g/dL 32-36 Automated erythrocyte distribution width ratio 14. 3 % 10.0- 14.5 Automated blood platelet count (count/volume) 419 10*3/uL 130-400 Automated blood platelet mean volume measurement 11.7 [foz_us] 7.4-10.4 PT panel in platelet poor plasma by coag ulation assay - 09/07/19 11:39 Prothrombin time (PT) in platelet poor plasma by coagu lation assay 12.6 s 12.2-14.7 INR in platelet poor plasma or blood by coagulation as say 0.9 0.8-1.4 Activated partial thromboplastin time (a PTT) in platelet poor plasma bycoagulation assay - 09/07/19 11:39 Activated partial thromboplastin time (a PTT) in platelet poor plasma bycoagulation assay 28 s 24-35 Comprehensive metabolic panel - 09/07/19 11:39 Serum or plasma sodium measurement (moles/volume) 138 mmol/L 135-145 Serum or plasma potassium measurement (moles/volume) 4.1 mmol/L 3.6-5.0 Serum or plasma chloride measurement (moles/volume) 103 mmol/L 98-107 Carbon dioxide 24 mmol/L 21-32 Serum or plasma anion gap determination (moles/volume) 11 mmol/L 5-14 Serum or plasma urea nitrogen measurement (mass/volume ) 13 mg/dL 7-18 Serum or plasma creatinine measurement (mass/volume) 0.98 mg/dL 0.60-1.30 Serum or plasma urea nitrogen/creatinine mass ratio 13 NRG Serum or plasma creatinine measurement w ith calculation of estimated glomerular filtration rate > NRG Serum or plasma glucose measurement (mass/volume) 370 mg/dL 70-105 Serum or plasma calcium measurement (mass/volume) 9.7 mg/dL 8.5-10.1 Serum or plasma total bilirubin measurement (mass/volu me) 0.3 mg/dL 0.1-1.0 Serum or plasma alkaline phosphatase marivel surement (enzymatic activity/volume) 157 U/L 40-136 Serum or plasma aspartate aminotransfera se measurement (enzymatic activity/volume) 36 U/L 5-34 Serum or plasma alanine aminotransferase measurement (enzymatic activity/volume) 40 U/L 0-55 Serum or plasma protein measurement (mass/volume) 8.3 g/dL 6.4-8.2 Serum or plasma albumin measurement (mass/volume) 4.0 g/dL 3.2-4.5 CALCIUM CORRECTED 9.7 mg/dL 8.5-10.1 Lipid 1996 panel - 09/07/19 11:39 Serum or plasma triglyceride measurement (mass/volume) 128 mg/dL <150 Serum or plasma cholesterol measurement (mass/volume) 154 mg/dL < 200 Serum or plasma cholesterol in HDL measurement (mass/v olume) 39 mg/dL 40-60 Cholesterol in LDL [mass/volume] in serum or plasma by direct assay 106 mg/dL 1-129 Serum or plasma cholesterol in VLDL measurement (mass/ volume) 26 mg/dL 5-40 Methicillin resistant Staphylococcus aur eus (MRSA) screening culture - 09/07/19 11:39 Methicillin resistant Staphylococcus aureus (MRSA) scr eening culture NEG NRG Capillary blood glucose measurement by g lucometer (mass/volume) - 09/07/19 16:11 Capillary blood glucose measurement by glucometer (mas s/volume) 224 mg/dL 70-110 Capillary blood glucose measurement by g lucometer (mass/volume) - 09/07/19 19:57 Capillary blood glucose measurement by glucometer (mas s/volume) 216 mg/dL 70-110 Automated blood complete blood count (he mogram) panel - 09/08/19 04:35 Blood leukocytes automated count (number/volume) 5.0 10*3/uL 4.3-11.0 Blood erythrocytes automated count (number/volume) 4.36 10*6/uL 4.35-5.85 Venous blood hemoglobin measurement (mass/volume) 12.4 g/dL 13.3-17.7 Blood hematocrit (volume fraction) 38 % 40-54 Automated erythrocyte mean corpuscular volume 86 [ foz_us] 80-99 Automated erythrocyte mean corpuscular h emoglobin (mass per erythrocyte) 28 pg 25-34 Automated erythrocyte mean corpuscular h emoglobin concentration measurement (mass/volume) 33 g/dL 32-36 Automated erythrocyte distribution width ratio 14. 5 % 10.0- 14.5 Automated blood platelet count (count/volume) 304 10*3/uL 130-400 Automated blood platelet mean volume measurement 11.4 [foz_us] 7.4-10.4 Comprehensive metabolic panel - 09/08/19 04:35 Serum or plasma sodium measurement (moles/volume) 137 mmol/L 135-145 Serum or plasma potassium measurement (moles/volume) 3.9 mmol/L 3.6-5.0 Serum or plasma chloride measurement (moles/volume) 108 mmol/L 98-107 Carbon dioxide 23 mmol/L 21-32 Serum or plasma anion gap determination (moles/volume) 6 mmol/L 5-14 Serum or plasma urea nitrogen measurement (mass/volume ) 12 mg/dL 7-18 Serum or plasma creatinine measurement (mass/volume) 0.74 mg/dL 0.60-1.30 Serum or plasma urea nitrogen/creatinine mass ratio 16 NRG Serum or plasma creatinine measurement w ith calculation of estimated glomerular filtration rate > NRG Serum or plasma glucose measurement (mass/volume) 236 mg/dL 70-105 Serum or plasma calcium measurement (mass/volume) 8.4 mg/dL 8.5-10.1 Serum or plasma total bilirubin measurement (mass/volu me) 0.2 mg/dL 0.1-1.0 Serum or plasma alkaline phosphatase marivel surement (enzymatic activity/volume) 104 U/L 40-136 Serum or plasma aspartate aminotransfera se measurement (enzymatic activity/volume) 29 U/L 5-34 Serum or plasma alanine aminotransferase measurement (enzymatic activity/volume) 30 U/L 0-55 Serum or plasma protein measurement (mass/volume) 6.4 g/dL 6.4-8.2 Serum or plasma albumin measurement (mass/volume) 3.0 g/dL 3.2-4.5 CALCIUM CORRECTED 9.2 mg/dL 8.5-10.1 Arterial blood gas measurement - 0 12:44 Blood pCO2 33 mm[Hg] 35-45 Blood pO2 89 mm[Hg] 79-93 Arterial blood bicarbonate measurement (moles/volume) 22 mmol/L 23-27 Arterial blood base excess by calculation -1.5 mmo l/L -2.5-2.5 Arterial blood oxygen saturation measurement 98 % 94-100 * Inhaled oxygen flow rate N/A NRG Arterial blood pH measurement with patient temperature correction 7.44 7.37-7.43 Arterial blood carbon dioxide, total measurement (mole s/volume) 23.3 mmol/L 21.0-31.0 Body site LEFT RADIAL NRG Assessment of wrist artery patency prior to arterial p uncture POSITIVE NRG Setting of ventilation mode NO NR G Measurement of body temperature 97 NRG Encounters ACCT No. Visit Date/Time Discharge Status Pt. Type Provider Facility Loc./Unit Complaint [id number] 05/13/2019 13:20:00 05/13/2019 23:59: 59 CLS Outpatient SUSAN QUIÑONEZ MD [facility] [id number] 11/18/2018 09:00:00 Document Registration [id number] 10/08/2017 16:20:00 Document Registration [id number] 10/10/2019 12:47:00 23:59:59 CLS Outpatient MAITE MORRISON APRN [facility] RT DYSPNEA,INTERST ITIAL PULMONARY DISEASE [id number] 10/03/2019 12:40:00 23:59:59 CLS Outpatient MAITE MORRISON APRN [facility] LAB DYSPNEA INTERST ITIAL PULMNARY DISEASE [id number] 09/07/2019 11:15:00 10:30:00 DIS Outpatient SAHARA LONG MD [facility] CATH CHF,CAD,HLP,DM [id number] 08/08/2019 08:39:00 23:59:59 CLS Outpatient KIMMIE BURDICK [facility] CARD CAD,CHF,HYP ERTENSION [id number] 07/04/2019 12:42:00 23:59:59 CLS Outpatient KIMMIE BURDICK [facility] CARD CAD [id number] 06/06/2019 12:31:00 23:59:59 CLS Preadmit SUSAN QUIÑONEZ MD [facility] RAD INTERSTITIAL PULMONARY FIBROSIS [id number] 05/18/2019 09:00:00 23:59:59 CLS Preadmit SAHARA LONG MD [facility] CATH CAD, CHF, HTN, HLP [id number] 05/04/2019 21:12:00 019 14:30:00 DIS Inpatient ETHAN GALVEZ, SAHARA Miller [facility] 4TH STEMI [id number] 05/02/2019 15:02:00 019 11:05:00 DIS Inpatient VAMSI GALVEZ, RENETTA Colbert [facility] ICU CP,R/O ACS [id number] 04/21/2019 15:10:00 019 15:20:00 DIS Inpatient KEITH CABALLERO DO, [facility] 4TH CHEST PAIN NSTEMI [id number] 12/15/2017 07:02:00 018 08:15:00 DIS Outpatient JOSE ZAVALA DO [facility] ENDO SCREENING [id number] 12/14/2017 08:30:00 018 23:59:59 CLS Outpatient JOSE ZAVALA DO [facility] PREOP COLONOSCOPY [id number] 09/16/2017 14:20:00 018 23:59:59 CLS Outpatient BATOOL DPM, ALLY Q [facility] LAB HX OF HEP C AND LIVER T X [id number] 09/01/2017 01:00:00 018 13:50:00 DIS Inpatient MARIA ALEJANDRA GALVEZ, ESTHELA Bailey [facility] 4TH CELLULITIS R FOOT LEF T TOES;NIDDM;ILLICIT [id number] 12/06/2016 22:16:00 017 19:50:00 DIS Inpatient SVETLANA GALVEZ, NIRANJAN Miller [facility] 4TH OSTEOMYLITIS/ABSCESS R FOOT [id number] 05/08/2016 06:00:00 016 10:25:00 DIS Outpatient JOSE ZAVALA DO [facility] SDC CYST LEFT NECK [id number] 05/05/2016 11:12:00 11:35:00 DIS Outpatient JOSE ZAVALA DO [facility] PREOP LEFT NECK CYST [id number] 08/31/2015 12:03:00 11:20:00 DIS Outpatient BATOOL DPM, ALLY Q [facility] OSTEOMYELITIS RT FOOT [id number] 12/15/2014 13:10:00 16:45:00 DIS Outpatient BATOOL DPM, ALLY Q [facility] OSTEOMYLITIS RIGHT FOOT [id number] 12/13/2014 13:05:00 23:59:59 CLS Outpatient BATOOL DPM, ALLY Q [facility] PREOP OSTEOMYLITIS RIGHT FOOT [id number] 12/06/2014 10:57:00 23:59:59 CLS Outpatient BATOOL DPM, ALLY Q [facility] CARD ULCERATION R 2ND DIDGIT [id number] 03/17/2014 10:43:00 014 16:05:00 DIS Outpatient BATOOL DPM, ALLY Q [facility] OSTEOMYLITITS LEFT SECO ND TOE [id number] 03/14/2014 08:59:00 014 23:59:59 CLS Outpatient BATOOL DPM, ALLY Q [facility] PREOP OSTEOMYLITIS LEFT SECON D TOE [id number] 03/09/2014 07:02:00 014 23:59:59 CLS Outpatient BATOOL DPM, ALYL Q [facility] CARD OSTEOMYLITIS L 2 ND DIG IT [id number] 09/27/2013 05:59:00 014 09:45:00 DIS Outpatient BATOOL DPM, ALLY Q [facility] OSTEOMALITIS LEFT FOOT [id number] 09/26/2013 15:36:00 014 23:59:59 CLS Outpatient BATOOL DPM, ALLY Q [facility] PREOP OSTEOMALITITS LEFT THIR D FOOT [id number] 09/23/2013 10:58:00 014 23:59:59 CLS Outpatient BATOOL DPM, ALLY Q [facility] RAD CHRONIC WOUND,CELLULITI S [id number] 09/13/2013 10:32:00 014 23:59:59 CLS Outpatient BATOOL DPM, ALLY Q [facility] RAD STABE WOUND,CHRONIC WOU ND,HX OF DM [id number] 05/05/2018 13:54:00 Document Registration [id number] 05/05/2018 13:53:00 Document Registration [id number] 05/05/2018 13:53:00 Document Registration [id number] 05/05/2018 13:53:00 Document Registration [id number] 05/05/2018 13:52:00 Document Registration [id number] 08/23/2015 12:26:00 Document Registration [id number] 08/23/2015 11:41:00 Document Registration [id number] 12/06/2014 10:58:00 Document Registration [id number] 11/21/2010 15:17:00 Document Registration [id number] 01/31/2009 09:56:00 Document Registration [id number] 11/25/2005 10:49:00 Document Registration [id number] 11/24/2005 02:10:00 Document Registration [id number] 07/24/2014 14:12:00 07/24/2014 23:59: 59 CLS Outpatient SUSAN QUIÑONEZ MD [id number] 07/24/2014 14:12:00 07/24/2014 23:59: 59 CLS Outpatient SUSAN QUIÑONEZ MD [id number] 03/14/2014 09:48:00 03/14/2014 23:59: 59 CLS Outpatient SUSAN QUIÑONEZ MD [id number] 01/17/2014 00:00:00 01/17/2014 23:59: 59 CLS Outpatient SUSAN QUIÑONEZ MD [id number] 12/15/2013 08:53:00 12/15/2013 23:59: 59 CLS Outpatient SUSAN QUIÑONEZ MD [id number] 12/15/2013 08:53:00 12/15/2013 23:59: 59 CLS Outpatient SUSAN QUIÑONEZ MD [id number] 12/08/2013 18:11:00 12/08/2013 23:59: 59 CLS Outpatient SUSAN QUIÑONEZ MD [id number] 12/01/2013 00:00:00 12/01/2013 23:59: 59 CLS Outpatient SUSAN QUIÑONEZ MD [id number] 09/26/2013 16:18:00 09/26/2013 23:59: 59 CLS Outpatient SUSAN QUIÑONEZ MD [id number] 09/13/2013 12:57:00 09/13/2013 23:59: 59 CLS Outpatient IVAN COLBY MONTIEL [id number] 07/08/2013 08:36:00 07/08/2013 23:59: 59 CLS Outpatient SUSAN QUIÑONEZ MD [id number] 07/08/2013 08:36:00 07/08/2013 23:59: 59 CLS Outpatient SUSAN QUIÑONEZ MD [id number] 01/25/2013 08:37:00 01/25/2013 23:59: 59 CLS Outpatient SUSAN QUIÑONEZ MD [id number] 07/01/2012 11:40:00 07/01/2012 23:59: 59 CLS Outpatient SUSAN QUIÑONEZ MD [id number] 10/24/2011 11:16:00 10/24/2011 23:59:5 9 CLS Outpatient
--- NOTE | 2020-01-03 21:33 | Diagnostic Imaging Report ---
INDICATION: Chest pain EXAM: Portable chest at 9:26 PM FINDINGS: There is a unipolar pacemaker. Heart size and pulmonary vascularity are normal. Lungs are clear. There are no effusions or pneumothoraces. IMPRESSION: No acute abnormalities in the chest. Dictated by: Dictated on workstation # [id number]
[2020-01-03 21:35] LABS: BILIRUBIN,TOTAL 0.6 MG/DL (0.1-1.0)
[2020-01-03 21:37] LABS: CREATININE SERUM 1.21 MG/DL (0.60-1.30)
[2020-01-03 21:40] LABS: MAGNESIUM 1.9 MG/DL (1.6-2.4)
[2020-01-03 21:50] LABS: INR 0.9 (0.8-1.4); PROTHROMBIN TIME PATIENT 12.1 SEC (12.2-14.7)
--- NOTE | 2020-01-03 22:13 | ED Chest Pain ---
General Chief Complaint: Cardiac/General Problems Stated Complaint: CP Nursing Triage Note: Assisted pt via ED w/c to room #6 with c/o CP. Pt states, "I think my defibrillator is shocking me!" Pt reports approx 30 minutes prior to arrival, he felt a "shock" that began in his L foot et radiated to his chest. Pt reports since initial "shock," he has felt between 8-12 "shocks" in his chest. Pt noted to be in AFIB with intermittent runs of VTACH. Pt noted to be pale et diaphoretic. A&OX4. Nursing Sepsis Screen: No Definite Risk Source: patient, old records Exam Limitations: no limitations History of Present Illness Date Seen by Provider: Jan 03, 2020 Time Seen by Provider: 21:05 Initial Comments This 69-year-old man presents to the emergency room with chest pain and tachycardia. He is reporting recurrent shocking sensations to his chest presumed to be defibrillator shocks. He has a history of congestive heart failure and coronary artery disease. He is on Brilinta and states he took his dose this morning. He admits to occasionally missing a dose. He has had multiple heart attacks in the past year and had angiography and stenting/angioplasty by Dr. Rodriguez. He has history of substance abuse. [facility] is his primary care provider. Patient has history of liver transplant. Allergies and Home Medications Allergies Coded Allergies: No Known Drug Allergies (Unverified , 12/14/17) Home Medications Aspirin 81 Mg Tablet., 81 MG PO DAILY, (Reported) Atorvastatin Calcium 10 Mg Tablet, 10 MG PO DAILY, (Reported) LAST FILLED 07-28-2019 #30 Cefuroxime Axetil 500 Mg Tablet, 500 MG PO BID Prescribed by: SAHARA RODRIGUEZ on 09/08/19 0839 Furosemide 40 Mg Tablet, 40 MG PO DAILY PRN for FLUID RETENTION, (Reported) Insulin Aspart 300 Units/3 Ml Solution, 15 UNITS SQ TIDAC, (Reported) LAST FILLED 06-20-2019 # 5 PENS/30 DAY SUPPLY Insulin Detemir 100 Unit/1 Ml Insuln.pen, 20 UNIT SQ HS, (Reported) LAST FILLED 05-13-2019 # 5 PENS /75 DAY SUPPLY Losartan Potassium 25 Mg Tablet, 25 MG PO DAILY, (Reported) LAST FILLED 07-28-2019 #30 Metformin HCl 1,000 Mg Tablet, 1,000 MG PO BID, (Reported) Metoprolol Succinate 25 Mg Tab.er.24h, 25 MG PO DAILY, (Reported) LAST FILLED 07-28-2019 #30 [place]-3/Dha/Epa/Fish Oil 1,000 Mg Capsule, 1,000 MG PO BID, (Reported) Ticagrelor 90 Mg Tablet, 90 MG PO BID, (Reported) LAST FILLED 07-28-2019 #60 Patient Home Medication List Home Medication List Reviewed: Yes Review of Systems Review of Systems Constitutional: no symptoms reported EENTM: No Symptoms Reported Respiratory: No Symptoms Reported Cardiovascular: See HPI Gastrointestinal: No Symptoms Reported Genitourinary: No Symptoms Reported Musculoskeletal: no symptoms reported Skin: no symptoms reported Psychiatric/Neurological: See HPI Endocrine: No Symptoms Reported Hematologic/Lymphatic: No Symptoms Reported Past Drherwb-Adtjxm-Gqhtge Hx Past Med/Social Hx: Reviewed Nursing Past Med/Soc Hx Patient Social History Alcohol Use: Denies Use Number of Drinks Today: AA Alcohol Beverage of Choice: Beer Recreational Drug Use: No (HX OF) Drug of Choice: HX +IV METH AND COCAINE, THC USE. NOW SMOKES METH AND OCCASIONALLY THC Smoking Status: Former Smoker Type Used: Cigarettes Former Smoker, Quit: May 08, 1990 2nd Hand Smoke Exposure: No Recent Foreign Travel: No Contact w/Someone Who Travel: No Recent Infectious Disease Expo: No Recent Hopitalizations: Yes (SC-HEART CATH- 2 STENTS PLACED) Immunizations Up To Date Tetanus Booster (TDap): Unknown Date of Pneumonia Vaccine: Aug 03, 2011 Date of Influenza Vaccine: Apr 11, 2019 Seasonal Allergies Seasonal Allergies: No Past Medical History Surgeries: Yes (several sx on both feet with toes amputed on right foot) Amputation, Appendectomy, Coronary Stent, Gallbladder, Liver Transplant, Orthopedic, Tonsillectomy Respiratory: No Currently Using CPAP: No Currently Using BIPAP: No Cardiac: Yes (congestive heart failure) Coronary Artery Disease, Hypertension Neurological: Yes (NEUROPATHY IN FEET) Neuropathy Reproductive Disorders: No Sexually Transmitted Disease: No HIV/AIDS: No Genitourinary: Yes Prostate Problems Gastrointestinal: Yes (HEPATITIS C--S/P INTERFERON TREATMENT; LIVER TRANSPLANT 2002) Liver Disease/Jaundice, Hepatitis, Cirrhosis Musculoskeletal: Yes (TOES AMPUTATED. CELLULITIS/OSTEOMYELITIS OF FEET/TOES) Amputee, Arthritis, Chronic Back Pain Endocrine: Yes (GKN-EHRWTYMUS-ZODA NOT CHECK BLOOD SUGARS EVERDAY) Diabetes, Non-Insulin dep Are Your Blood Sugars Over 250: Yes HEENT: Yes (EDENTULOUS) Loss of Vision: Left Hearing Impairment: Denies Cancer: No Psychosocial: No (NEVER TAKEN MEDS) Depression Integumentary: Yes (CYST LEFT NECK; CELLULITIS/OSTEOMYELITIS OF FEET) Blood Disorders: No Adverse Reaction/Blood Tranf: No (HAS HAD BLOOD WITH NO REACTION) Family Medical History Myocardial infarction 19 FATHER No Pertinent Family Hx Physical Exam Vital Signs Vital Signs - First Documented 01/03/20 21:05 Temp 36.4 Pulse 215 Resp 26 B/P (MAP) 151/100 (117) Pulse Ox 97 O2 Delivery Room Air Capillary Refill : Less Than 3 Seconds Height, Weight, BMI Height: 6'0.00" Weight: 240lbs. 0.0oz. 108.551859rs; 32.00 BMI Method:Stated General Appearance: WD/WN, Moderate Distress HEENT: PERRL/EOMI, Normal ENT Inspection Neck: Normal Inspection Respiratory: Lungs Clear, Normal Breath Sounds, No Accessory Muscle Use, No Respiratory Distress Cardiovascular: No Edema, No Murmur, Irregularly Irregular, Tachycardia Gastrointestinal: Non Tender, Soft Extremity: Normal Inspection, No Pedal Edema Neurologic/Psychiatric: Alert, Oriented x3, No Motor/Sensory Deficits, Normal Mood/Affect, dog catcher II-XII Norm as Tested Skin: Normal Color, Warm/Dry Progress/Results/Core Measures Results/Orders Lab Results Laboratory Tests Test 01/03/20 21:07 01/03/20 21:17 01/03/20 22:00 Range/Units White Blood Count 9.5 4.3-11.0 10^3/uL Red Blood Count 5.09 4.35-5.85 10^6/uL Hemoglobin 14.9 13.3-17.7 G/DL Hematocrit 44 40-54 % Mean Corpuscular Volume 86 80-99 FL Mean Corpuscular Hemoglobin 29 25-34 PG Mean Corpuscular Hemoglobin Concent 34 32-36 G/DL Red Cell Distribution Width 14.0 10.0-14.5 % Platelet Count 331 130-400 10^3/uL Mean Platelet Volume 11.0 H 7.4-10.4 FL Neutrophils (%) (Auto) 43 42-75 % Lymphocytes (%) (Auto) 45 H 12-44 % Monocytes (%) (Auto) 9 0-12 % Eosinophils (%) (Auto) 2 0-10 % Basophils (%) (Auto) 0 0-10 % Neutrophils # (Auto) 4.1 1.8-7.8 X 10^3 Lymphocytes # (Auto) 4.3 H 1.0-4.0 X 10^3 Monocytes # (Auto) 0.9 0.0-1.0 X 10^3 Eosinophils # (Auto) 0.2 0.0-0.3 10^3/uL Basophils # (Auto) 0.0 0.0-0.1 10^3/uL Prothrombin Time 12.1 L 12.2-14.7 SEC INR Comment 0.9 0.8-1.4 Activated Partial Thromboplast Time 26 24-35 SEC Sodium Level 132 L 135-145 MMOL/L Potassium Level 3.7 3.6-5.0 MMOL/L Chloride Level 95 L 98-107 MMOL/L Carbon Dioxide Level 16 L 21-32 MMOL/L Anion Gap 21 H 5-14 MMOL/L Blood Urea Nitrogen 20 H 7-18 MG/DL Creatinine 1.21 0.60-1.30 MG/DL Estimat Glomerular Filtration Rate 60 BUN/Creatinine Ratio 17 Glucose Level 400 H 70-105 MG/DL Calcium Level 9.3 8.5-10.1 MG/DL Corrected Calcium 9.1 8.5-10.1 MG/DL Magnesium Level 1.9 1.6-2.4 MG/DL Total Bilirubin 0.6 0.1-1.0 MG/DL Aspartate Amino Transf (AST/SGOT) 47 H 5-34 U/L Alanine Aminotransferase (ALT/SGPT) 78 H 0-55 U/L Alkaline Phosphatase 177 H 40-136 U/L Myoglobin 94.1 H 10.0-92.0 NG/ML Troponin I < 0.028 <0.028 NG/ML B-Type Natriuretic Peptide 133.9 H <100.0 PG/ML Total Protein 9.0 H 6.4-8.2 GM/DL Albumin 4.3 3.2-4.5 GM/DL Serum Alcohol 44 H <10 MG/DL Glucometer 371 H 70-110 MG/DL Urine Opiates Screen NEGATIVE NEGATIVE Urine Oxycodone Screen NEGATIVE NEGATIVE Urine Methadone Screen NEGATIVE NEGATIVE Urine Propoxyphene Screen NEGATIVE NEGATIVE Urine Barbiturates Screen NEGATIVE NEGATIVE Ur Tricyclic Antidepressants Screen NEGATIVE NEGATIVE Urine Phencyclidine Screen NEGATIVE NEGATIVE Urine Amphetamines Screen NEGATIVE NEGATIVE Urine Methamphetamines Screen POSITIVE H NEGATIVE Urine Benzodiazepines Screen NEGATIVE NEGATIVE Urine Cocaine Screen NEGATIVE NEGATIVE Urine Cannabinoids Screen NEGATIVE NEGATIVE My Orders Orders - SHAYNA GOMEZ MD Adenosine Injection (Adenocard Injection (01/03/20 21:08) Adenosine Injection (Adenocard Injection (01/03/20 21:08) Amiodarone For Bolus (Cordarone Bolus) (01/03/20 21:10) Metoprolol Tartrate Injection (Lopressor (01/03/20 21:15) Amiodarone Injection (Cordarone Injectio (01/03/20 21:30) BNP (01/03/20 21:21) Aspirin Chewable Tablet (Baby Aspirin Ch (01/03/20 21:30) Alcohol (01/03/20 21:51) Drug Screen Stat (Urine) (01/03/20 21:51) Ekg Tracing (01/03/20 22:08) Medications Given in ED Current Medications Medications Dose Ordered Sig/Merrick Route Start Time Stop Time Status Last Admin Dose Admin Aspirin 243 mg ONCE ONCE PO 01/03/20 21:30 01/03/20 21:31 DC 01/03/20 21:34 243 MG Metoprolol Tartrate 5 mg ONCE ONCE IV 01/03/20 21:15 01/03/20 21:16 DC 01/03/20 21:21 5 MG Vital Signs/I&O 01/03/20 01/03/20 21:05 21:29 Temp 36.4 Pulse 215 215 Resp 26 B/P (MAP) 151/100 (117) Pulse Ox 97 O2 Delivery Room Air Blood Pressure Mean: 117 FSBG Bedside Testing Finger Stick Blood Glucose: 371 Blood Glucose Action Taken: Provider notified. Progress Progress Note : Time: 22:29 Progress Note Patient was immediately seen and assessed upon arrival. On the monitor he appeared to be in atrial fibrillation with RVR with intermittent short runs of ventricular tachycardia. Amiodarone 150 mg was administered. Patient appeared to be receiving shocks from his defibrillator. He reports approximately 10 such shocks, most of which occurred prior to arrival. We will interrogate the device to obtain an accurate history. Dr. Chin was consulted and requested Lopressor 5 mg IV in addition to amiodarone drip. Patient was given the balance of aspirin. He has already taking his Brilinta today but needs his evening dose which we will give before transfer to the ICU. Patient's rhythm became more regular. At one point he appeared to be in atrial flutter with a steady heart rate at 135. Repeat EKG at 22:15 demonstrated atrial fibrillation with a rate of 151. Methamphetamines screen was positive. Heparin drip was ordered on the chest pain order set. EKG #1: EKG Time: 21:06 Rate: 194 Rhythm: A Fib/Flutter Comment Atrial fibrillation with RVR and possible short runs of ventricular tachycardia. EKG #2: EKG Time: 22:15 Rate: 151 Rhythm: A Fib/Flutter Comment Atrial fibrillation with RVR. No ventricular tachycardia noted. Diagnostic Imaging Diagonstic Imaging: Xray Plain Films/CT/US/NM/MRI: chest Comments NAME: ERIBERTO RAMEY [facility] REC#: [id number] PT STATUS: REG ER : 1950 PHYSICIAN: EFRA OGDEN ADMIT DATE: 01/03/20/ER Signed Date of Exam:01/03/20 CHEST 1 VIEW, AP/PA ONLY INDICATION: Chest pain EXAM: Portable chest at 9:26 PM FINDINGS: There is a unipolar pacemaker. Heart size and pulmonary vascularity are normal. Lungs are clear. There are no effusions or pneumothoraces. IMPRESSION: No acute abnormalities in the chest. Dictated by: Dictated on workstation # [id number] Dict: 01/03/202130 Trans: 01/03/202132 [facility] [id number] Interpreted by: HATTIE CONTEH MD Electronically signed by: HATTIE CONTEH MD 01/03/202132 Departure Communication (Admissions) Time/Spoke to Admitting Phy: 22:00 Dr. Echols Time/Spoke to Consulting Phy: 21:13 Dr. Chin Impression Primary Impression: Atrial fibrillation with RVR Additional Impressions: Ventricular tachycardia Heart failure Qualified Codes: I50.22 - Chronic systolic (congestive) heart failure Hyperglycemia Disposition: ADMITTED INPATIENT Condition: Improved Admissions Decision to Admit Reason: Admit from ER (General) Decision to Admit/Date: Jan 03, 2020 Time/Decision to Admit Time: 21:10 Departure-Patient Inst. Referrals: SUSAN QUIÑONEZ MD (PCP/Family) Primary Care Physician Copy Copies To 1: SUSAN QUIÑONEZ MD, JOSHUA T MD Jan 03, 2020 22:13
[2020-01-03 22:29] LABS: AMPHETAMINE SCREEN, URINE NEGATIVE (NEGATIVE); BARBITURATE SCREEN URINE NEGATIVE (NEGATIVE); BENZODIAZEPINES SCREEN URINE NEGATIVE (NEGATIVE); CANNABINOID SCREEN, URINE NEGATIVE (NEGATIVE); COCAINE SCREEN URINE NEGATIVE (NEGATIVE); METHADONE STAT NEGATIVE (NEGATIVE); METHAMPHETAMINE SCREEN URINE S POSITIVE (NEGATIVE); OPIATE SCREEN URINE NEGATIVE (NEGATIVE); OXYCODONE STAT NEGATIVE (NEGATIVE); PROPOXYPHENE STAT NEGATIVE (NEGATIVE); TRICYCLIC ANTIDEPRESSANTS SCRE NEGATIVE (NEGATIVE)
--- OUTSIDE RECORDS SUMMARY | 2020-01-03 22:32 | XMS REPORT | Clinical Summary ---
Author Author [facility] Organization [facility] Address Unknown Phone Unavailable Care Team Providers Care Parts And Service Manager Name Role Phone Bronson Dahl MD PCP Source Comments Some departments are not documenting in the electronic medical record. If you d o not see the information that you expected, contact Release of Information in [facility] Information Management department at [phone] for further assistan ce in locating additional records.[facility] Allergies Not on File Medications Not [...] filefrom Last 3 Months Advance Directives Patient Monogram Operator Explanation Type Date Recorded Advance 07/08/2013 11:51 AM Directive/DPOA
--- OUTSIDE RECORDS SUMMARY | 2020-01-03 22:44 | XMS REPORT | Continuity of Care Document ---
Author Organization Unknown Address Unknown Phone Unavailable Allergies Active Description Code Type Severity Reaction Onset Reported/Identified Relationship to Patient Clinical Status Yes NKANo Known Allergies NKA Miscellaneous Allergy Unknown N/A 11/24/2005 Yes No Known Drug Allergies [id number] Drug Allergy Unknown N/A 12/14/2017 Medications There [...] 783.2 1 LOSS OF WEIGHT 10/28/2010 SUSAN QUIÑOENZ MD1.9 Acute Sinusitis Unspecified 10/28/2010 SUSAN QUIÑONEZ [...] UNSPECIFIED TYPE NOT STATED UNCONTROLLED 01/25/2013 SUSAN QUIÑONZE MD 250.0 0 DIABETES MELLITUS WITHOUT MENTION [...] M86.9 OSTE OMYELITIS, UNSPECIFIED 05/05/2016 Ot 491.9 [employer] ELISA BRONCHITIS NOS 05/05/2016 BATOOL DPM, ALLY [...] 05/08/2016 JOSE ZAVALA DO Ot Z79. 84 ASSISTED (CURRENT) USE OF ORAL HYPOGLYC 06/09/2016 BATOOL [...] 12/11/2016 NIRANJAN MOTA MD, Ot Z79. 84 WOOD FENCE INSTALLER (CURRENT) USE OF ORAL HYPOGLYC 12/11/2016 NIRANJAN MOTA MD, Ot Z79.899 OTHER WOOD FENCE INSTALLER (CURRENT) DRUG THERAPY 12/11/2016 NIRANJAN MOTA MD, [...] 12/11/2016 NIRANJAN MOTA MD, Ot Z79. 84 ASSISTED (CURRENT) USE OF ORAL HYPOGLYC 12/11/2016 NIRANJAN MOTA MD, Ot Z79.899 OTHER WOOD FENCE INSTALLER (CURRENT) DRUG THERAPY 12/11/2016 NIRANJAN MOTA MD, [...] 12/11/2016 NIRANJAN MOTA MD, Ot Z79. 84 WOOD FENCE INSTALLER (CURRENT) USE OF ORAL HYPOGLYC 12/11/2016 NIRANJAN MOTA MD, Ot Z79.899 OTHER WOOD FENCE INSTALLER (CURRENT) DRUG THERAPY 12/11/2016 NIRANJAN MOTA MD, [...] 12/12/2016 NIRANJAN MOTA MD, Ot Z79. 84 ASSISTED (CURRENT) USE OF ORAL HYPOGLYC 12/12/2016 NIRANJAN MOTA MD, Ot Z79.899 OTHER ASSISTED (CURRENT) DRUG THERAPY 12/12/2016 NIRANJAN MOTA MD, [...] UNSP STAPHYLOCOCCUS THE CAUSE OF DISE 09/08/2017 ETSHELA BESS MD Ot E11.40 TYPE 2 DIABETES [...] MD, Ot Z23 ENCOUNTER FOR IMMUNIZATION 09/08/2017 SETHELA BESS MD, Ot Z86.19 PERSONAL HISTORY OF [...] BESS MD, Ot Z91.19 PATIENT'S NONCOMPLIANCE W [facility] 09/08/2017 ESTHELA BESS MD, Ot [...] 12/15/2017 JOSE ZAVALA DO Ot Z79. 84 ASSISTED (CURRENT) USE OF ORAL HYPOGLYC 12/15/2017 JOSE ZAVALA DO Ot Z79.899 OTHER WOOD FENCE INSTALLER (CURRENT) DRUG THERAPY 12/15/2017 JOSE ZAVALA DO [...] 12/17/2017 JOSE ZAVALA DO Ot Z79. 84 ASSISTED (CURRENT) USE OF ORAL HYPOGLYC 12/17/2017 JOSE ZAVALA DO Ot Z79.899 OTHER WOOD FENCE INSTALLER (CURRENT) DRUG THERAPY 05/05/2018 Ot 401.9 05/05/2018 [...] DO Ot I25.10 ATHSCL HEART DISEASE OF [place] CORONARY 04/22/2019 KEITH CABALLERO DO Ot I50.21 [...] CABALLERO DO Ot Z91.19 PATIENT'S NONCOMPLIANCE W [facility] 04/22/2019 KEITH CABALLERO DO Ot [...] MD Ot I25.110 ATHSCL HEART DISEASE OF [place] COR ART W 05/03/2019 RENETTA AGUSTIN MD, Ot I25 .5 ISCHEMIC CARDIOMYOPATHY 05/03/2019 RENETTA AGUSTIN MD, Ot I49 .3 VENTRICULAR PREMATURE DEPOLARIZATION 05/03/2019 RENETTA AGUSTIN MD, Ot I50.22 CHRONIC SYSTOLIC (CONGESTIVE) HEART FAIL 05/03/2019 RENETTA AGUSTIN MD, Ot J44 .9 CHRONIC OBSTRUCTIVE PULMONARY DISEASE, U 05/03/2019 RENETTA AGUSTIN MD, Ot Z72.89 OTHER PROBLEMS RELATED TO LIFESTYLE 05/03/2019 RENETTA AGUSTIN MD, Ot Z79 .4 WOOD FENCE INSTALLER (CURRENT) USE OF INSULIN 05/03/2019 RENETTA AGUSTIN [...] Ot I25. 10 ATHSCL HEART DISEASE OF [place] CORONARY 05/08/2019 SAHARA LONG MD Ot I25. 5 ISCHEMIC CARDIOMYOPATHY 05/08/2019 SAHARA LONG MD, Ot I49. 3 VENTRICULAR PREMATURE DEPOLARIZATION 05/08/2019 SAHARA LONG MD Ot I50. 23 ACUTE ON CHRONIC SYSTOLIC (CONGESTIVE) H 05/08/2019 SAHARA LONG MD Ot I73. 9 PERIPHERAL VASCULAR DISEASE, UNSPECIFIED 05/08/2019 SAHARA LONG MD, Ot K74. 60 UNSPECIFIED CIRRHOSIS OF LIVER 05/08/2019 SAHARA LONG MD, Ot Z79. 84 WOOD FENCE INSTALLER (CURRENT) USE OF ORAL HYPOGLYC 05/08/2019 SAHARA [...] MD, Ot I25.110 ATHSCL HEART DISEASE OF [place] COR ART W 05/10/2019 RENETTA AGUSTIN MD, Ot I25 .5 ISCHEMIC CARDIOMYOPATHY 05/10/2019 RENETTA AGUSTIN MD, Ot I49 .3 VENTRICULAR PREMATURE DEPOLARIZATION 05/10/2019 RENETTA AGUSTIN MD, Ot I50.22 CHRONIC SYSTOLIC (CONGESTIVE) HEART FAIL 05/10/2019 RENETTA AGUSTIN MD, Ot J44 .9 CHRONIC OBSTRUCTIVE PULMONARY DISEASE, U 05/10/2019 RENETTA AGUSTIN MD, Ot Z72.89 OTHER PROBLEMS RELATED TO LIFESTYLE 05/10/2019 RENETTA AGUSTIN MD, Ot Z79 .4 WOOD FENCE INSTALLER (CURRENT) USE OF INSULIN 05/10/2019 RENETTA AGUSTIN [...] MD, Ot I25.110 ATHSCL HEART DISEASE OF [place] COR ART W 05/10/2019 RENETTA AGUSTIN MD, Ot I25 .5 ISCHEMIC CARDIOMYOPATHY 05/10/2019 RENETTA AGUSTIN MD, Ot I49 .3 VENTRICULAR PREMATURE DEPOLARIZATION 05/10/2019 RENETTA AGUSTIN MD, Ot I50.22 CHRONIC SYSTOLIC (CONGESTIVE) HEART FAIL 05/10/2019 RENETTA AGUSTIN MD, Ot J44 .9 CHRONIC OBSTRUCTIVE PULMONARY DISEASE, U 05/10/2019 RENETTA AGUSTIN MD, Ot Z72.89 OTHER PROBLEMS RELATED TO LIFESTYLE 05/10/2019 RENETTA AGUSTIN MD, Ot Z79 .4 ASSISTED (CURRENT) USE OF INSULIN 05/10/2019 RENETTA AGUSTIN [...] MD, Ot I25.110 ATHSCL HEART DISEASE OF [place] COR ART W 05/10/2019 RENETTA AGUSTIN MD, Ot I25 .5 ISCHEMIC CARDIOMYOPATHY 05/10/2019 RENETTA AGUSTIN MD, Ot I49 .3 VENTRICULAR PREMATURE DEPOLARIZATION 05/10/2019 RENETTA AGUSTIN MD, Ot I50.22 CHRONIC SYSTOLIC (CONGESTIVE) HEART FAIL 05/10/2019 RENETTA AGUSTIN MD, Ot J44 .9 CHRONIC OBSTRUCTIVE PULMONARY DISEASE, U 05/10/2019 RENETTA AGUSTIN MD, Ot Z72.89 OTHER PROBLEMS RELATED TO LIFESTYLE 05/10/2019 RENETTA AGUSTIN MD, Ot Z79 .4 WOOD FENCE INSTALLER (CURRENT) USE OF INSULIN 05/10/2019 RENETTA AGUSTIN [...] ULCER OF OTHER PART OF FOOT 05/10/2019 BAOTOL DPM, ALLY Q Ot 730. 27 OSTEOMYELITIS [...] 730. 27 OSTEOMYELITIS NOS-ANKLE 05/10/2019 BATOOL DPM, ALYL Q Ot V72. 63 PRE-PROCEDURAL LABORATORY EXAMINATION [...] BURDICK Ot I25.10 ATHSCL HEART DISEASE OF [place] CORONARY 07/05/2019 TRISTIN BURDICK Ot I50.9 HEART FAILURE, UNSPECIFIED 07/05/2019 TRISTIN BURDICK Ot I65.23 OCCLUSION AND STENOSIS OF BILATERAL MANNING 07/10/2019 TRISTIN BURDICK Ot I11.0 HYPERTENSIVE HEART DISEASE WITH HEART FA 07/10/2019 TRISTIN BURDICK Ot I25.10 ATHSCL HEART DISEASE OF [place] CORONARY 07/10/2019 TRISTIN BURDICK Ot I50.9 HEART FAILURE, UNSPECIFIED 07/10/2019 TRISTIN BURDICK Ot I65.23 OCCLUSION AND STENOSIS OF BILATERAL MANNING 07/29/2019 TRISTIN BURDICK Ot I11.0 HYPERTENSIVE HEART DISEASE WITH HEART FA 07/29/2019 TRISTIN BURDICK Ot I25.10 ATHSCL HEART DISEASE OF [place] CORONARY 07/29/2019 TRISTIN BURDICK Ot I50.9 HEART FAILURE, UNSPECIFIED 07/29/2019 TRISTIN BURDICK Ot I65.23 OCCLUSION AND STENOSIS OF BILATERAL MANNING 08/30/2019 GAYLE-MICHAEL PA, TRISTIN K 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 08/30/2019 [facility] PA, TRISTIN K Ot I10 ESSENTIAL (PRIMARY) HYPERTENSION 08/30/2019 [facility] PA, TRISTIN Kinney Ot I25.10 ATHSCL HEART DISEASE OF [place] CORONARY 08/30/2019 [facility] PA, TRISTIN Kinney Ot I50.9 HEART FAILURE, UNSPECIFIED 08/30/2019 [facility] PA, TRISTIN K Ot I65.23 OCCLUSION AND STENOSIS OF BILATERAL MANNING 09/07/2019 [facility] PA, TRISTIN K Ot I11.0 HYPERTENSIVE HEART DISEASE WITH HEART FA 09/07/2019 [facility] GARETH, TRISTIN Kinney Ot I25.10 ATHSCL HEART DISEASE OF [place] CORONARY 09/07/2019 [facility] PA, TRISTIN Kinney Ot I50.9 HEART FAILURE, UNSPECIFIED 09/07/2019 [facility] PA, TRISTIN Kinney Ot I65.23 OCCLUSION AND STENOSIS OF BILATERAL MANNING 09/07/2019 [facility] PA, TRISTIN Kinney 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 09/07/2019 [facility] PA, TRISTIN Kinney Ot I10 ESSENTIAL (PRIMARY) HYPERTENSION 09/07/2019 [facility] GARETH, TRISTIN K Ot I25.10 ATHSCL HEART DISEASE OF [place] CORONARY 09/07/2019 [facility] PA, TRISTNI K Ot I50.9 HEART FAILURE, UNSPECIFIED 09/07/2019 [facility] PA, TRISTIN K Ot I65.23 OCCLUSION AND [...] BURDICK Ot I25.10 ATHSCL HEART DISEASE OF [place] CORONARY 09/07/2019 TRISTIN BURDICK Ot I50.9 HEART FAILURE, UNSPECIFIED 09/07/2019 TRISTIN BURDICK Ot I65.23 OCCLUSION AND STENOSIS OF BILATERAL MANNING 09/07/2019 TRISTIN BURDICK 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 09/07/2019 TRISTIN BURDICK Ot I10 ESSENTIAL (PRIMARY) HYPERTENSION 09/07/2019 TRISTIN BURDICK Ot I25.10 ATHSCL HEART DISEASE OF [place] CORONARY 09/07/2019 TRISTIN BURDICK Ot I50.9 HEART [...] Ot I25. 10 ATHSCL HEART DISEASE OF [place] CORONARY 09/08/2019 SAHARA LONG MD Ot I25. 2 OLD MYOCARDIAL INFARCTION 09/08/2019 SAHARA LONG MD Ot I25. 5 ISCHEMIC CARDIOMYOPATHY 09/08/2019 SAHARA LONG MD Ot I50. 22 CHRONIC SYSTOLIC (CONGESTIVE) HEART FAIL 09/08/2019 SAHARA LONG MD Ot I50. 9 HEART FAILURE, UNSPECIFIED 09/08/2019 SAHARA LONG MD Ot I65. 23 OCCLUSION AND STENOSIS OF BILATERAL MANNING 09/08/2019 SAHARA LONG MD Ot Z79. 4 ASSISTED (CURRENT) USE OF INSULIN 09/08/2019 SAHARA LONG MD Ot Z79. 82 ASSISTED (CURRENT) USE OF ASPIRIN 09/08/2019 SAHARA LONG [...] Ot I25. 10 ATHSCL HEART DISEASE OF [place] CORONARY 09/09/2019 SAHARA LONG MD Ot I25. 2 OLD MYOCARDIAL INFARCTION 09/09/2019 SAHARA LONG MD Ot I50. 9 HEART FAILURE, UNSPECIFIED 09/09/2019 SAHARA LONG MD Ot I65. 23 OCCLUSION AND STENOSIS OF BILATERAL MANNING 09/09/2019 SAHARA LONG MD Ot Z79. 4 WOOD FENCE INSTALLER (CURRENT) USE OF INSULIN 09/09/2019 SAHARA LONG MD Ot Z79. 82 WOOD FENCE INSTALLER (CURRENT) USE OF ASPIRIN 09/09/2019 SAHARA LONG [...] BURDICK Ot I25.10 ATHSCL HEART DISEASE OF [place] CORONARY 09/09/2019 TRISTIN BURDICK Ot I50.9 HEART FAILURE, UNSPECIFIED 09/09/2019 TRISTIN BURDICK Ot I65.23 OCCLUSION AND STENOSIS OF BILATERAL MANNING 09/09/2019 TRISTIN BURDICK 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 09/09/2019 TRISTIN BURDICK Ot I10 ESSENTIAL (PRIMARY) HYPERTENSION 09/09/2019 TRISTIN BURDICK Ot I25.10 ATHSCL HEART DISEASE OF [place] CORONARY 09/09/2019 TRISTIN BURDICK Ot I50.9 HEART [...] BURDICK Ot I25.10 ATHSCL HEART DISEASE OF [place] CORONARY 09/09/2019 TRISTIN BURDICK Ot I50.9 HEART FAILURE, UNSPECIFIED 09/09/2019 TRISTIN BURDICK Ot I65.23 OCCLUSION AND STENOSIS OF BILATERAL MANNING 09/09/2019 TRISTIN BURDICK 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 09/09/2019 TRISTIN BURDICK Ot I10 ESSENTIAL (PRIMARY) HYPERTENSION 09/09/2019 TRISTIN BURDICK Ot I25.10 ATHSCL HEART DISEASE OF [place] CORONARY 09/09/2019 TRISTIN BURDICK Ot I50.9 HEART [...] Ot I25. 10 ATHSCL HEART DISEASE OF [place] CORONARY 09/13/2019 SAHARA LONG MD, Ot I25. 2 OLD MYOCARDIAL INFARCTION 09/13/2019 SAHARA LONG MD, Ot I50. 9 HEART FAILURE, UNSPECIFIED 09/13/2019 SAHARA LONG MD, Ot I65. 23 OCCLUSION AND STENOSIS OF BILATERAL MANNING 09/13/2019 SAHARA LONG MD, Ot Z79. 4 ASSISTED (CURRENT) USE OF INSULIN 09/13/2019 SAHARA LONG MD Ot Z79. 82 WOOD FENCE INSTALLER (CURRENT) USE OF ASPIRIN 09/13/2019 SAHARA LONG [...] BURDICK Ot I25.10 ATHSCL HEART DISEASE OF [place] CORONARY 10/03/2019 TRISTIN BURDICK Ot I50.9 HEART FAILURE, UNSPECIFIED 10/03/2019 TRISTIN BURDICK Ot I65.23 OCCLUSION AND STENOSIS OF BILATERAL MANNING 10/03/2019 LELE SERVIN, TRISTIN Kinney 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 10/03/2019 TRISTIN BURDICK Ot I10 ESSENTIAL (PRIMARY) HYPERTENSION 10/03/2019 TRISTIN BURDICK Ot I25.10 ATHSCL HEART DISEASE OF [place] CORONARY 10/03/2019 TRISTIN BURDICK Ot I50.9 HEART [...] BURDICK Ot I25.10 ATHSCL HEART DISEASE OF [place] CORONARY 10/03/2019 TRISTIN BURDICK Ot I50.9 HEART FAILURE, UNSPECIFIED 10/03/2019 TRISTIN BURDICK Ot I65.23 OCCLUSION AND STENOSIS OF BILATERAL MANNING 10/03/2019 TRISTIN BURDICK 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 10/03/2019 TRISTIN BURDICK Ot I10 ESSENTIAL (PRIMARY) HYPERTENSION 10/03/2019 TRISTIN BURDICK Ot I25.10 ATHSCL HEART DISEASE OF [place] CORONARY 10/03/2019 TRISTIN BURDICK Ot I50.9 HEART [...] BURDICK Ot I25.10 ATHSCL HEART DISEASE OF [place] CORONARY 10/03/2019 TRISTIN BURDICK Ot I50.9 HEART FAILURE, UNSPECIFIED 10/03/2019 TRISTIN BURDICK Ot I65.23 OCCLUSION AND STENOSIS OF BILATERAL MANNING 10/03/2019 TRISTIN BURDICK 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 10/03/2019 TRISTIN BURDICK Ot I10 ESSENTIAL (PRIMARY) HYPERTENSION 10/03/2019 TRISTIN BURDICK Ot I25.10 ATHSCL HEART DISEASE OF [place] CORONARY 10/03/2019 TRISTIN BURDICK Ot I50.9 HEART [...] BURDICK Ot I25.10 ATHSCL HEART DISEASE OF [place] CORONARY 10/03/2019 TRISTIN BURDICK Ot I50.9 HEART FAILURE, UNSPECIFIED 10/03/2019 TRISTIN BURDICK Ot I65.23 OCCLUSION AND STENOSIS OF BILATERAL MANNING 10/03/2019 TRISTIN BURDICK 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 10/03/2019 TRISTIN BURDICK Ot I10 ESSENTIAL (PRIMARY) HYPERTENSION 10/03/2019 TRISTIN BURDICK Ot I25.10 ATHSCL HEART DISEASE OF [place] CORONARY 10/03/2019 TRISTIN BURDICK Ot I50.9 HEART [...] BURDICK Ot I25.10 ATHSCL HEART DISEASE OF [place] CORONARY 10/03/2019 TRISTIN BURDICK Ot I50.9 HEART FAILURE, UNSPECIFIED 10/03/2019 TRISTIN BURDICK Ot I65.23 OCCLUSION AND STENOSIS OF BILATERAL MANNING 10/03/2019 TRISTIN BURDICK 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 10/03/2019 TRISTIN BURDICK Ot I10 ESSENTIAL (PRIMARY) HYPERTENSION 10/03/2019 TRISTIN BURDICK Ot I25.10 ATHSCL HEART DISEASE OF [place] CORONARY 10/03/2019 TRISTIN BURDICK Ot I50.9 HEART [...] BURDICK Ot I25.10 ATHSCL HEART DISEASE OF [place] CORONARY 10/10/2019 TRISTIN BURDICK Ot I50.9 HEART FAILURE, UNSPECIFIED 10/10/2019 TRISTIN BURDICK Ot I65.23 OCCLUSION AND STENOSIS OF BILATERAL MANNING 10/10/2019 TRISTIN BURDICK 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 10/10/2019 TRISTIN BURDICK Ot I10 ESSENTIAL (PRIMARY) HYPERTENSION 10/10/2019 TRISTIN BURDICK Ot I25.10 ATHSCL HEART DISEASE OF [place] CORONARY 10/10/2019 TRISTIN BURDICK Ot I50.9 HEART FAILURE, UNSPECIFIED 10/10/2019 TRISTIN BURDICK Ot 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 9 TYPE 2 DIABETES MELLITUS WITHOUT COMPLIC 11/04/2019 SAHARA LONG MD Ot E78. 2 MIXED HYPERLIPIDEMIA 11/04/2019 ASHARA LONG MD Ot I08. 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 0 HYPERTENSIVE HEART DISEASE WITH HEART FA 11/04/2019 SAHARA LONG MD Ot I25. 10 ATHSCL HEART DISEASE OF [place] CORONARY 11/04/2019 SAHARA LONG MD Ot I25. 2 OLD MYOCARDIAL INFARCTION 11/04/2019 SAHARA LONG MD Ot I25. 5 ISCHEMIC CARDIOMYOPATHY 11/04/2019 SAHARA LONG MD Ot I50. 22 CHRONIC SYSTOLIC (CONGESTIVE) HEART FAIL 11/04/2019 SAHARA LONG MD Ot I65. 23 OCCLUSION AND STENOSIS OF BILATERAL MANNING 11/04/2019 SAHARA LONG MD Ot Z79. 4 ASSISTED (CURRENT) USE OF INSULIN 11/04/2019 SAHARA LONG MD Ot Z79. 82 WOOD FENCE INSTALLER (CURRENT) USE OF ASPIRIN 11/04/2019 SAHARA LONG [...] Ot I25. 10 ATHSCL HEART DISEASE OF [place] CORONARY 11/09/2019 SAHARA LONG MD Ot I25. 2 OLD MYOCARDIAL INFARCTION 11/09/2019 SAHARA LONG MD Ot I25. 5 ISCHEMIC CARDIOMYOPATHY 11/09/2019 SAHARA LONG MD Ot I50. 22 CHRONIC SYSTOLIC (CONGESTIVE) HEART FAIL 11/09/2019 SAHARA LONG MD, Ot I65. 23 OCCLUSION AND STENOSIS OF BILATERAL MANNING 11/09/2019 SAHARA LONG MD, Ot Z79. 4 ASSISTED (CURRENT) USE OF INSULIN 11/09/2019 SAHARA LONG MD, Ot Z79. 82 WOOD FENCE INSTALLER (CURRENT) USE OF ASPIRIN 11/09/2019 SAHARA LONG [...] 86.59 CLOS URE SKIN SUBCUTANEOUS NEC 11/24/2005 02370 ROUT INE VENIPUNCTURE 07/01/2012 84448 A1C (IN-HOUSE) 07/01/2012 54750 CMP 07/01/2012 [id number] GF R CALC (RESULT ONLY) 07/01/2012 62090 A1C (RML) 07/02/2012 21315 PROG DAVINA (TACROLIMUS) 07/02/2012 52063 ROUT INE VENIPUNCTURE 07/08/2013 39100 MICR O ALBUMIN-IN HOUSE 07/08/2013 52184 A1C (IN-HOUSE) 07/08/2013 [id number] GF R CALC (RESULT ONLY) 07/08/2013 88892 CMP 07/08/2013 Podiatry Ally Pierce 09/13/2013 97215 ROUT INE VENIPUNCTURE 12/15/2013 78548 A1C (IN-HOUSE) 12/15/2013 9061008 GF R CALC (RESULT ONLY) 12/15/2013 88148 CMP 12/15/2013 98419 A1C (IN-HOUSE) 07/24/2014 [id number] RE SECTION OF R METATARSOPHAL JT, OPEN AP 12/10/2016 [id number] DE TACHMENT AT RIGHT FOOT, PARTIAL 1ST RA 09/04/2017 [id number] DE TACHMENT AT RIGHT FOOT, PARTIAL 2ND RA 09/04/2017 [id number] DE TACHMENT AT RIGHT FOOT, PARTIAL 3RD RA 09/04/2017 [id number] DE TACHMENT AT RIGHT FOOT, PARTIAL 4TH RA 09/04/2017 [id number] DE TACHMENT AT RIGHT FOOT, PARTIAL 5TH RA 09/04/2017 [id number] DE TACHMENT AT LEFT 3RD TOE, LOW, OPEN AP 09/04/2017 [id number] DI LATION OF 1 COR ART WITH 2 DRUG-ELUT, 04/21/2019 [id number] ME ASURE OF CARDIAC SAMPL PRESSURE, L H 04/21/2019 [id number] FL UOROSCOPY OF MULT COR ART USING L OSM 04/21/2019 [id number] FL UOROSCOPY OF LEFT HEART USING LOW OSMO 04/21/2019 [id number] DI LATION OF 1 COR ART WITH DRUG-ELUT INT 05/02/2019 [id number] ME ASURE OF CARDIAC SAMPL PRESSURE, L H 05/02/2019 [id number] FL UOROSCOPY OF MULT COR ART USING L OSM 05/02/2019 [id number] FL UOROSCOPY OF LEFT HEART USING LOW OSMO 05/02/2019 [id number] DI LATION OF 1 COR ART WITH DRUG-ELUT INT 05/04/2019 [id number] ME ASURE OF CARDIAC SAMPL PRESSURE, L H 05/04/2019 [id number] FL UOROSCOPY OF MULT COR ART USING L OSM 05/04/2019 [id number] FL UOROSCOPY OF LEFT HEART USING LOW [...] 21:10 Bacteria identification in wound by culture [id number] NRG FREE TEXT EXTERNAL SENSITIVITY REPORTED [...] OF GROWTH Isolated NRG Bacterial blood culture [id number] NRG Bacterial blood culture - 12/06/16 21:43 [...] identification in isolate by anaerobe culture NOANA [facility] Gram stain microscopy - 12/10/16 12:40 Gram stain microscopy Occasional gram positi ve cocci resembling Staph [facility] Bacteria identification in wound by cult ure - 12/10/16 12:40 Bacteria identification in wound by culture [id number] [facility] FREE TEXT EXTERNAL SENSITIVITY REPORTED AT 1519, [...] 12:56 Bacteria identification in wound by culture [id number] NRG FREE TEXT EXTERNAL REFER TO [...] 13:20 Bacteria identification in wound by culture [id number] NRG FREE TEXT EXTERNAL REFER TO [...] 13:43 Bacteria identification in wound by culture [id number] NRG FREE TEXT EXTERNAL SENSITIVITY REPORTED [...] 14:10 Bacteria identification in wound by culture [id number] NRG FREE TEXT EXTERNAL SENSITIVITY REPORTED [...] 17:40 HCV RNA, QUANTITATIVE REAL TIME PCR [id number] IU/mL NOT DETECTED HCV RNA, QUANTITATIVE REAL [...] ng/mL <0.028 Automated blood complete blood count ([facility] panel - 04/22/19 03:10 Blood leukocytes automated [...] G Measurement of body temperature 97 NRG Complete blood count (CBC) with automate d white blood cell (WBC) differential - 01/03/20 21:07 Blood leukocytes automated count (number/volume) 9.5 10*3/uL 4.3-11.0 Blood erythrocytes automated count (number/volume) 5.09 10*6/uL 4.35-5.85 Venous blood hemoglobin measurement (mass/volume) 14.9 g/dL 13.3-17.7 Blood hematocrit (volume fraction) 44 % 40-54 Automated erythrocyte mean corpuscular volume 86 [ foz_us] 80-99 Automated erythrocyte mean corpuscular h emoglobin (mass per erythrocyte) 29 pg 25-34 Automated erythrocyte mean corpuscular h emoglobin concentration measurement (mass/volume) 34 g/dL 32-36 Automated erythrocyte distribution width ratio 14. 0 % 10.0- 14.5 Automated blood platelet count (count/volume) 331 10*3/uL 130-400 Automated blood platelet mean volume measurement 11.0 [foz_us] 7.4-10.4 Automated blood neutrophils/100 leukocytes 43 % 42-75 Automated blood lymphocytes/100 leukocytes 45 % 12-44 Blood monocytes/100 leukocytes 9 % 0-12 Automated blood eosinophils/100 leukocytes 2 % 0-10 Automated blood basophils/100 leukocytes 0 % 0-10 Blood neutrophils automated count (number/volume) 4.1 10*3 1.8-7.8 Blood lymphocytes automated count (number/volume) 4.3 10*3 1.0-4.0 Blood monocytes automated count (number/volume) 0. 9 10*3 0.0-1.0 Automated eosinophil count 0.2 10*3/uL 0 .0-0.3 Automated blood basophil count (count/volume) 0.0 10*3/uL 0.0-0.1 Comprehensive metabolic panel - 01/03/20 21:07 Serum or plasma sodium measurement (moles/volume) 132 mmol/L 135-145 Serum or plasma potassium measurement (moles/volume) 3.7 mmol/L 3.6-5.0 Serum or plasma chloride measurement (moles/volume) 95 mmol/L 98-107 Carbon dioxide 16 mmol/L 21-32 Serum or plasma anion gap determination (moles/volume) 21 mmol/L 5-14 Serum or plasma urea nitrogen measurement (mass/volume ) 20 mg/dL 7-18 Serum or plasma creatinine measurement (mass/volume) 1.21 mg/dL 0.60-1.30 Serum or plasma urea nitrogen/creatinine mass ratio 17 NRG Serum or plasma creatinine measurement w ith calculation of estimated glomerular filtration rate 60 NRG Serum or plasma glucose measurement (mass/volume) 400 mg/dL 70-105 Serum or plasma calcium measurement (mass/volume) 9.3 mg/dL 8.5-10.1 Serum or plasma total bilirubin measurement (mass/volu me) 0.6 mg/dL 0.1-1.0 Serum or plasma alkaline phosphatase marivel surement (enzymatic activity/volume) 177 U/L 40-136 Serum or plasma aspartate aminotransfera se measurement (enzymatic activity/volume) 47 U/L 5-34 Serum or plasma alanine aminotransferase measurement (enzymatic activity/volume) 78 U/L 0-55 Serum or plasma protein measurement (mass/volume) 9.0 g/dL 6.4-8.2 Serum or plasma albumin measurement (mass/volume) 4.3 g/dL 3.2-4.5 CALCIUM CORRECTED 9.1 mg/dL 8.5-10.1 Magnesium - 01/03/20 21:07 Magnesium 1.9 mg/dL 1.6-2.4 Myoglobin, serum - 01/03/20 21:07 Myoglobin, serum 94.1 ng/mL 10.0-92.0 Serum or plasma troponin i.cardiac measu rement (mass/volume) - 01/03/20 21:07 Serum or plasma troponin i.cardiac measurement (mass/v olume) < ng/mL <0.028 Serum or plasma lithium measurement (mol es/volume) - 01/03/20 21:07 BNP PT 133.9 pg/mL <100.0 PT panel in platelet poor plasma by coag ulation assay - 01/03/20 21:07 Prothrombin time (PT) in platelet poor plasma by coagu lation assay 12.1 s 12.2-14.7 INR in platelet poor plasma or blood by coagulation as say 0.9 0.8-1.4 Activated partial thromboplastin time (a PTT) in platelet poor plasma bycoagulation assay - 01/03/20 21:07 Activated partial thromboplastin time (a PTT) in platelet poor plasma bycoagulation assay 26 s 24-35 Serum or plasma ethanol measurement (mas s/volume) - 01/03/20 21:07 Serum or plasma ethanol measurement (mass/volume) 44 mg/dL <10 Capillary blood glucose measurement by g lucometer (mass/volume) - 01/03/20 21:17 Capillary blood glucose measurement by glucometer (mas s/volume) 371 mg/dL 70-110 Urine drug screening test - 01/03/20 22: 00 Urine phencyclidine detection by screening method [...] TIVE Urine propoxyphene detection NEGATIVE N EGATIVE Encounters ACCT No. Visit Date/Time Discharge Status Pt. Type Provider Facility Loc./Unit Complaint [id number] 05/13/2019 13:20:00 05/13/2019 23:59: 59 CLS Outpatient KHANG GALVEZ, SUSAN [facility] [id number] 11/18/2018 09:00:00 Document Registration [id number] 10/08/2017 16:20:00 Document Registration [id number] 10/10/2019 12:47:00 23:59:59 CLS Outpatient MAITE MORRISON APRN [facility] RT DYSPNEA,INTERST ITIAL PULMONARY DISEASE [id number] 10/03/2019 12:40:00 23:59:59 CLS Outpatient MAITE MORRISON APRN [facility] LAB DYSPNEA INTERST ITIAL PULMNARY DISEASE [id number] 09/07/2019 11:15:00 10:30:00 DIS Outpatient ETHAN GALVEZ, SAHARA Miller [facility] CATH CHF,CAD,HLP,DM [id number] 08/08/2019 08:39:00 23:59:59 CLS Outpatient KIMMIE BURDICK [facility] CARD CAD,CHF,HYP ERTENSION [id number] 07/04/2019 12:42:00 23:59:59 CLS Outpatient KIMMIE BURDICK [facility] CARD CAD [id number] 06/06/2019 12:31:00 23:59:59 CLS Preadmit SUSAN QUIÑONEZ MD [facility] RAD INTERSTITIAL PULMONARY FIBROSIS [id number] 05/18/2019 09:00:00 23:59:59 CLS Preadmit SAHARA LONG MD [facility] CATH CAD, CHF, HTN, HLP [id number] 05/04/2019 21:12:00 14:30:00 DIS Inpatient SAHARA LONG MD [facility] 4TH STEMI [id number] 05/02/2019 15:02:00 11:05:00 DIS Inpatient VAMSI GALVEZ, RENETTA Colbert [facility] ICU CP,R/O ACS [id number] 04/21/2019 15:10:00 15:20:00 DIS Inpatient KEITH CABALLERO DO, [facility] 4TH CHEST PAIN NSTEMI [id number] 12/15/2017 07:02:00 08:15:00 DIS Outpatient JOSE ZAVALA DO [facility] ENDO SCREENING [id number] 12/14/2017 08:30:00 23:59:59 CLS Outpatient JOSE ZAVALA DO [facility] PREOP COLONOSCOPY [id number] 09/16/2017 14:20:00 23:59:59 CLS Outpatient BATOOL DPM, ALLY Q [facility] LAB HX OF HEP C AND LIVER T X [id number] 09/01/2017 01:00:00 02/06/2 018 13:50:00 DIS Inpatient MARIA ALEJANDRA GALVEZ, ESTHELA Bailey [facility] 4TH CELLULITIS R FOOT LEF T TOES;NIDDM;ILLICIT [id number] 12/06/2016 22:16:00 017 19:50:00 DIS Inpatient SVETLANA GALVEZ, NIRANJAN Miller [facility] 4TH OSTEOMYLITIS/ABSCESS R FOOT [id number] 05/08/2016 06:00:00 10:25:00 DIS Outpatient JOSE ZAVALA DO [facility] CYST LEFT NECK [id number] 05/05/2016 11:12:00 11:35:00 DIS Outpatient JOSE ZAVALA DO [facility] PREOP LEFT NECK CYST [id number] 08/31/2015 12:03:00 11:20:00 DIS Outpatient BATOOL DPM, ALLY Q [facility] OSTEOMYELITIS RT FOOT [id number] 12/15/2014 13:10:00 015 16:45:00 DIS Outpatient BATOOL DPM, ALLY Q [facility] OSTEOMYLITIS RIGHT FOOT [id number] 12/13/2014 13:05:00 015 23:59:59 CLS Outpatient BATOOL DPM, ALLY Q [facility] PREOP OSTEOMYLITIS RIGHT FOOT [id number] 12/06/2014 10:57:00 015 23:59:59 CLS Outpatient BATOOL DPM, ALLY Q [facility] CARD ULCERATION R 2ND DIDGIT [id number] 03/17/2014 10:43:00 014 16:05:00 DIS Outpatient BATOOL DPM, ALLY Q [facility] OSTEOMYLITITS LEFT SECO ND TOE [id number] 03/14/2014 08:59:00 014 23:59:59 CLS Outpatient BATOOL DPM, ALLY Q [facility] PREOP OSTEOMYLITIS LEFT SECON D TOE [id number] 03/09/2014 07:02:00 23:59:59 CLS Outpatient BATOOL DPM, ALLY Q [facility] CARD OSTEOMYLITIS L 2 ND DIG IT [id number] 09/27/2013 05:59:00 09:45:00 DIS Outpatient BATOOL DPM, ALLY Q [facility] SDC OSTEOMALITIS LEFT FOOT [id number] 09/26/2013 15:36:00 23:59:59 CLS Outpatient BATOOL DPM, ALLY Q [facility] PREOP OSTEOMALITITS LEFT THIR D FOOT [id number] 09/23/2013 10:58:00 23:59:59 CLS Outpatient BATOOL DPM, ALLY Q [facility] RAD CHRONIC WOUND,CELLULITI S [id number] 09/13/2013 10:32:00 23:59:59 CLS Outpatient BATOOL DPM, ALLY Q [facility] RAD STABE WOUND,CHRONIC WOU ND,HX OF DM [id number] 01/03/2020 21:19:00 Document Registration [id number] 05/05/2018 13:54:00 Document Registration [id number] 05/05/2018 13:53:00 Document Registration [id number] 05/05/2018 13:53:00 Document Registration [id number] 05/05/2018 13:53:00 Document Registration [id number] 05/05/2018 13:52:00 Document Registration [id number] 08/23/2015 12:26:00 Document Registration [id number] 08/23/2015 11:41:00 Document Registration [id number] 12/06/2014 10:58:00 Document Registration [id number] 11/21/2010 15:17:00 Document Registration [id number] 01/31/2009 09:56:00 Document Registration [id number] 11/25/2005 10:49:00 Document Registration [id number] 11/24/2005 02:10:00 Document Registration [id number] 07/24/2014 14:12:00 07/24/2014 23:59: 59 CLS Outpatient SUSAN QUIÑONEZ MD [id number] 07/24/2014 14:12:00 07/24/2014 23:59: 59 CLS Outpatient SUSAN QUIÑONEZ MD [id number] 03/14/2014 09:48:00 03/14/2014 23:59: 59 CLS Outpatient SUSAN QUIÑONEZ MD [id number] 01/17/2014 00:00:00 01/17/2014 23:59: 59 CLS Outpatient SUSAN QUIÑONEZ MD [id number] 12/15/2013 08:53:00 12/15/2013 23:59: 59 CLS Outpatient SUSAN QUIÑONEZ MD [id number] 12/15/2013 08:53:00 12/15/2013 23:59: 59 CLS Outpatient SUSAN QUIÑONEZ MD [id number] 12/08/2013 18:11:00 12/08/2013 23:59: 59 CLS Outpatient SUSAN QUIÑONEZ MD [id number] 12/01/2013 00:00:00 12/01/2013 23:59: 59 CLS Outpatient SUSAN QUIÑONEZ MD [id number] 09/26/2013 16:18:00 09/26/2013 23:59: 59 CLS Outpatient SUSAN QUIÑONEZ MD [id number] 09/13/2013 12:57:00 09/13/2013 23:59: 59 CLS Outpatient IVAN COLBY Nirmal [id number] 07/08/2013 08:36:00 07/08/2013 23:59: 59 CLS Outpatient SUSAN QUIÑONEZ MD [id number] 07/08/2013 08:36:00 07/08/2013 23:59: 59 CLS Outpatient SUSAN QUIÑONEZ MD [id number] 01/25/2013 08:37:00 01/25/2013 23:59: 59 CLS Outpatient SUSAN QUIÑONEZ MD [id number] 07/01/2012 11:40:00 07/01/2012 23:59: 59 CLS Outpatient SUSAN QUIÑONEZ MD [id number] 10/24/2011 11:16:00 10/24/2011 23:59:5 9 CLS Outpatient
[2020-01-03] MEDS ORDERED: TICAGRELOR 90 MG TABLET (BRILINTA) PO ONE (22:45)
[2020-01-03 22:58] VITALS: BP 120/107
[2020-01-03 23:00] VITALS: BP 123/107
--- NOTE | 2020-01-03 23:13 | NUR ---
Pt's pacer/defib was interrogating in ER. [employer] national account representative called this RN at this time, reports that pt was shocked 11 times, and his device is set to shock at heart rates over 200. First time, it appeared to be afib with RVR, and the ten subsequent shocks appeared to have a different morphology, more like VT or VS. The national account representative stated that the device is functioning correctly. This RN informed pt that he was shocked 11 times and asked if there was anything that happened prior to the shocks, and pt stated, "Well, I guess I won't see that girl again." Will continue to monitor. `
[2020-01-03] MEDS ORDERED: AMIODARONE 450 MG/250 ML D5W EXCEL IV SCH ×2 (23:30)
[2020-01-03] MEDS ORDERED: ONDANSETRON 4 MG/2 ML (SDV) Z0FRAN IV PRN (23:45)
[2020-01-04] VITALS (25 sets, daily range): BP systolic 100–127; BP diastolic 62–101
[2020-01-04] MEDS ORDERED: inSUlin ASPART (NovoLOG) 1 UNIT/0.01 ML (CHARGE PER UNIT) SC SCH
[2020-01-04] MEDS: NS IV 1000 ML 1,000 ML IV SCH ×4 (00:04→20:18)
[2020-01-04] MEDS ORDERED: MAGNESIUM 1 GM/100 ML IVPB 100 ML IV ONE ×2 (00:30→00:45)
[2020-01-04] MEDS ORDERED: AMIODARONE FOR BOLUS 150 MG in D5W 100 ML IVPB 100 ML IV ONE (00:30)
[2020-01-04] MEDS ORDERED: D5W 100 ML IVPB 100 ML IV ONE (00:46)
[2020-01-04] MEDS ORDERED: AMIODARONE (OMNICELL DRIP KIT) 150 MG/3 ML IV ONE (00:46)
[2020-01-04] MEDS ORDERED: HEParin DRIP 25000 UNIT/500ML 500 ML IV SCH (00:47)
[2020-01-04] MEDS ORDERED: HEParin 1000 UNIT/ML (10ML VIAL) FOR BOLUS IV PRN (01:00)
[2020-01-04] MEDS: inSUlin ASPART (NovoLOG) 1 UNIT/0.01 ML (CHARGE PER UNIT) SC SCH ×6 (01:09→21:00)
--- NOTE | 2020-01-04 01:54 | NUR ---
Pt reports doing "speed every once in awhile to keep up with working", and only occasionally drinks. He states he had 4 or 5 beers tonight earlier in the evening.
[2020-01-04 03:07] LABS: BASOPHILS % (AUTO) 0 % (0-10); EOSINOPHILS # (AUTO) 0.1 10^3/uL (0.0-0.3); EOSINOPHILS % (AUTO) 1 % (0-10); HEMATOCRIT 41 % (40-54); HEMOGLOBIN 14.1 G/DL (13.3-17.7); LYMPHOCYTES # (AUTO) 2.3 X 10^3 (1.0-4.0); LYMPHOCYTES % (AUTO) 31 % (12-44); MEAN CORPUSCULAR HEMOGLOBIN 30 PG (25-34); MEAN CORPUSCULAR HGB CONC 35 G/DL (32-36); MEAN CORPUSCULAR VOLUME 86 FL (80-99); MEAN PLATELET VOLUME 10.9 FL (7.4-10.4); MONOCYTES # (AUTO) 0.7 X 10^3 (0.0-1.0); MONOCYTES % (AUTO) 9 % (0-12); NEUTROPHILS # (AUTO) 4.4 X 10^3 (1.8-7.8); NEUTROPHILS % (AUTO) 59 % (42-75); PLATELET COUNT 272 10^3/uL (130-400); RED CELL DISTRIBUTION WIDTH 13.8 % (10.0-14.5); WHITE BLOOD COUNT 7.5 10^3/uL (4.3-11.0)
[2020-01-04 03:29] LABS: CHLORIDE 102 MMOL/L (98-107); POTASSIUM 4.3 MMOL/L (3.6-5.0); SODIUM 135 MMOL/L (135-145)
[2020-01-04 03:30] LABS: CALCIUM 9.1 MG/DL (8.5-10.1)
[2020-01-04 03:31] LABS: GLUCOSE 275 MG/DL (70-105); TRIGLYCERIDES 157 MG/DL (<150); VLDL CHOLESTEROL 31 MG/DL (5-40)
[2020-01-04 03:32] LABS: CARBON DIOXIDE 21 MMOL/L (21-32)
[2020-01-04 03:34] LABS: PHOSPHORUS 2.7 MG/DL (2.3-4.7)
[2020-01-04 03:35] LABS: CREATININE SERUM 0.89 MG/DL (0.60-1.30); GFR ESTIMATED > 60
[2020-01-04 03:36] LABS: BUN/CREATININE RATIO 21; CHOLESTEROL 193 MG/DL (< 200)
[2020-01-04 03:37] LABS: HDL CHOLESTEROL 39 MG/DL (40-60); MAGNESIUM 2.2 MG/DL (1.6-2.4)
[2020-01-04] MEDS: AMIODARONE INJECTION 450 MG in D5W IV SOLUTION (EXCEL) 250 ML IV SCH (04:57)
--- NOTE | 2020-01-04 05:28 | Pulmonary Consultation ---
History of Present Illness History of Present Illness Date Seen by Provider: Jan 04, 2020 Time Seen by Provider: 05:23 Date of Admission History of Present Illness 69 yo with hx of CHF, CAD, hx of substance abuse, liver transplant presented to ED secondary to acute CP and palpitations. UDS is positive methamphetamine and alcohol. Pt was shocked 11 times by his defibrillator. Allergies and Home Medications Allergies Coded Allergies: No Known Drug Allergies (Unverified , 12/14/17) Home Medications Aspirin 81 Mg Tablet.dr, 81 MG PO DAILY, (Reported) Atorvastatin Calcium 10 Mg Tablet, 10 MG PO DAILY, (Reported) LAST FILLED 07-28-2019 #30 Cefuroxime Axetil 500 Mg Tablet, 500 MG PO BID Prescribed by: SAHARA LONG on 09/08/19 0839 Furosemide 40 Mg Tablet, 40 MG PO DAILY PRN for FLUID RETENTION, (Reported) Insulin Aspart 300 Units/3 Ml Solution, 15 UNITS SQ TIDAC, (Reported) LAST FILLED 06-20-2019 # 5 PENS/30 DAY SUPPLY Insulin Detemir 100 Unit/1 Ml Insuln.pen, 20 UNIT SQ HS, (Reported) LAST FILLED 05-13-2019 # 5 PENS /75 DAY SUPPLY Losartan Potassium 25 Mg Tablet, 25 MG PO DAILY, (Reported) LAST FILLED 07-28-2019 #30 Metformin HCl 1,000 Mg Tablet, 1,000 MG PO BID, (Reported) Metoprolol Succinate 25 Mg Tab.er.24h, 25 MG PO DAILY, (Reported) LAST FILLED 07-28-2019 #30 Brandon-3/Dha/Epa/Fish Oil 1,000 Mg Capsule, 1,000 MG PO BID, (Reported) Ticagrelor 90 Mg Tablet, 90 MG PO BID, (Reported) LAST FILLED 07-28-2019 #60 Past Fgxcfnd-Xpkepm-Dbxhhc Hx Past Med/Social Hx: Reviewed Nursing Past Med/Soc Hx Patient Social History Alcohol Use: Denies Use Number of Drinks Today: AA Alcohol Beverage of Choice: Beer Recreational Drug Use: No (HX OF) Drug of Choice: HX +IV METH AND COCAINE, THC USE. NOW SMOKES METH AND OCCASIONALLY THC Smoking Status: Former Smoker Type Used: Cigarettes Former Smoker, Quit: May 08, 1990 2nd Hand Smoke Exposure: No Recent Foreign Travel: No Contact w/Someone Who Travel: No Recent Infectious Disease Expo: No Recent Hopitalizations: Yes ([place]-HEART CATH- 2 STENTS PLACED) Immunizations Up To Date Tetanus Booster (TDap): Unknown Date of Pneumonia Vaccine: Aug 03, 2011 Date of Influenza Vaccine: Apr 11, 2019 Seasonal Allergies Seasonal Allergies: No Past Medical History Surgeries: Yes (several sx on both feet with toes amputed on right foot) Amputation, Appendectomy, Coronary Stent, Gallbladder, Liver Transplant, Orthopedic, Tonsillectomy Respiratory: No Currently Using CPAP: No Currently Using BIPAP: No Cardiac: Yes (congestive heart failure) Coronary Artery Disease, Hypertension Neurological: Yes (NEUROPATHY IN FEET) Neuropathy Reproductive Disorders: No Sexually Transmitted Disease: No HIV/AIDS: No Genitourinary: Yes Prostate Problems Gastrointestinal: Yes (HEPATITIS C--S/P INTERFERON TREATMENT; LIVER TRANSPLANT 2002) Liver Disease/Jaundice, Hepatitis, Cirrhosis Musculoskeletal: Yes (TOES AMPUTATED. CELLULITIS/OSTEOMYELITIS OF FEET/TOES) Amputee, Arthritis, Chronic Back Pain Endocrine: Yes (SDX-[id number]-[id number] NOT CHECK BLOOD SUGARS EVERDAY) Diabetes, Non-Insulin dep Are Your Blood Sugars Over 250: Yes HEENT: Yes (EDENTULOUS) Loss of Vision: Left Hearing Impairment: Denies Cancer: No Psychosocial: No (NEVER TAKEN MEDS) Depression Integumentary: Yes (CYST LEFT NECK; CELLULITIS/OSTEOMYELITIS OF FEET) Blood Disorders: No Adverse Reaction/Blood Tranf: No (HAS HAD BLOOD WITH NO REACTION) Family Medical History Cystic fibrosis 19 MOTHER G8 SISTER FH: breast cancer G8 SISTER Myocardial infarction 19 FATHER No Pertinent Family Hx Review of Systems Time Seen by Provider: 05:31 Sepsis Event Evaluation Height, Weight, BMI Height: 6'0.00" Weight: 240lbs. 0.0oz. 108.629782ss; 34.27 BMI Method:Stated Exam Exam Vital Signs Date Time Temp Pulse Resp B/P (MAP) Pulse Ox O2 Delivery O2 Flow Rate FiO2 01/04/20 04:17 36.2 01/04/20 04:00 96 Room Air 01/04/20 03:19 35.9 01/04/20 01:02 138 105/92 01/04/20 01:00 130 01/04/20 00:25 35.9 122 18 106/75 (85) 96 Room Air 01/04/20 00:00 96 Room Air 01/03/20 23:00 128 01/03/20 22:58 36.6 129 18 120/107 (111) 98 Room Air 01/03/20 22:53 Room Air 01/03/20 22:50 36.6 126 20 122/70 98 Room Air 01/03/20 21:29 215 01/03/20 21:05 36.4 215 26 151/100 (117) 97 Room Air I & O 01/04/20 07:00 Intake Total 462 ml Output Total 625 ml Balance -163 ml Height & Weight Height: 6'0.00" Weight: 240lbs. 0.0oz. 108.040741tt; 34.27 BMI Method:Stated General Appearance: WD/WN, Moderate Distress HEENT: PERRL/EOMI, Normal ENT Inspection Neck: Normal Inspection Respiratory: Lungs Clear, Normal Breath Sounds, No Accessory Muscle Use, No Respiratory Distress Cardiovascular: No Edema, No Murmur, Irregularly Irregular, Tachycardia Capillary Refill: Less Than 3 Seconds Extremity: Normal Inspection, No Pedal Edema Neurologic/Psychiatric: Alert, Oriented x3, No Motor/Sensory Deficits, Normal Mood/Affect, clerk guide II-XII Norm as Tested Skin: Normal Color, Warm/Dry Results Lab Laboratory Tests 01/03/20 21:07 01/04/20 02:39 Assessment/Plan Assessment/Plan Afib/Flutter RVR -Amio gtt -Cardiology is following -S/p 11 shocks from defibrillator Methamphetamine use -Drug screen is positive -education Alcohol use -Education Hx of liver transplant -Pt states he has not been on any anti-rejection meds for 4yrs -Will defer to PCP CHF hx CAD EDWINA DUBON DO Jan 04, 2020 05:28
[2020-01-04] MEDS: MAGNESIUM 1 GM/100 ML IVPB 100 ML IV SCH (06:22)
[2020-01-04] MEDS: POTASSIUM CL 10MEQ/50ML IVPB 50 ML IV SCH (06:22)
[2020-01-04] MEDS: KCL 20 MEQ TAB (K-DUR) PO SCH (06:23)
[2020-01-04] MEDS: ASPIRIN E.C. 81 MG (ECOTRIN) TAB PO SCH (08:25)
[2020-01-04] MEDS: TICAGRELOR 90 MG TABLET (BRILINTA) PO SCH ×2 (08:25→20:17)
--- NOTE | 2020-01-04 09:25 | History & Physical-Hospitalist ---
History of Present Illness HPI/Chief Complaint CC: AF with RVR with chest pain HPI: This is a 69yoWM who presents with AF with RVR with chest pain. At this current time his chest pain is resolved, no SOB. He will have cardiac cath today and will be monitored in the ICU until that. Source: patient Exam Limitations: no limitations Date Seen 01/04/20 Time Seen by a Provider: 09:00 Attending Physician Bessie Echols DO PCP Andreas Vergara MD Referring Physician Date of Admission Jan 03, 2020 at 22:13 Home Medications & Allergies Home Medications Reviewed patient Home Medication Reconciliation performed by pharmacy medication reconciliations geothermal field technician and/or nursing. Patients Allergies have been reviewed. Allergies Allergies Coded Allergies No Known Drug Allergies (Unverified12/14/17) Past Cqeqipr-Nvwgzl-Zvdmas Hx Past Med/Social Hx: Reviewed Nursing Past Med/Soc Hx, Reviewed and Corrections made Patient Social History Marrital Status: single Employed/Student: employed Alcohol Use: Denies Use Number of Drinks Today: AA Alcohol Beverage of Choice: Beer Recreational Drug Use: No (HX OF) Drug of Choice: HX +IV METH AND COCAINE, THC USE. NOW SMOKES METH AND OCCASIONALLY THC Smoking Status: Former Smoker Former Smoker, Quit: May 08, 1990 Type Used: Cigarettes 2nd Hand Smoke Exposure: No Recent Foreign Travel: No Contact w/other who traveled: No Recent Hopitalizations: Yes ([place]-HE[place] CATH- 2 STENTS PLACED) Recent Infectious Disease Expo: No Immunizations Up To Date Tetanus Booster (TDap): Unknown Date of Pneumonia Vaccine: Aug 03, 2011 Date of Influenza Vaccine: Apr 11, 2019 Seasonal Allergies Seasonal Allergies: No Past Medical History Surgeries: Amputation, Appendectomy, Coronary Stent, Gallbladder, Liver Transplant, Orthopedic, Tonsillectomy Currently Using CPAP: No Currently Using BIPAP: No Cardiac: Coronary Artery Disease, Hypertension Neurological: Neuropathy Reproductive: No Sexually Transmitted Disease: No HIV/AIDS: No Genitourinary: Prostate Problems Gastrointestinal: Liver Disease/Jaundice, Hepatitis, Cirrhosis Musculoskeletal: Amputee, Arthritis, Chronic Back Pain Endocrine: Diabetes, Non-Insulin dep Are Your Blood Sugars Over 250: Yes Loss of Vision: Left Hearing Impairment: Denies Psychosocial: Depression History of Blood Disorders: No Adverse Reaction to Blood [place]: No (HAS HAD BLOOD WITH NO REACTION) Family History Cystic fibrosis 19 MOTHER G8 SISTER FH: breast cancer G8 SISTER Myocardial infarction 19 FATHER No Pertinent Family Hx Review of Systems Constitutional: see HPI Cardiovascular: chest pain, palpitations Physical Exam Physical Exam Vital Signs Vital Signs - First Documented 01/03/20 21:05 Temp 36.4 Pulse 215 Resp 26 B/P (MAP) 151/100 (117) Pulse Ox 97 O2 Delivery Room Air Capillary Refill : Less Than 3 Seconds Height, Weight, BMI Height: 6'0.00" Weight: 240lbs. 0.0oz. 108.026002kw; 34.27 BMI Method:Stated General Appearance: No Apparent Distress Eyes: Right Eye Normal Inspection, Right Eye PERRL HEENT: PERRL/EOMI, TMs Normal, Normal ENT Inspection, Pharynx Normal, Moist Mucous Membranes Neck: Full Range of Motion, Normal Inspection, Non Tender Respiratory: Chest Non Tender, Lungs Clear, Normal Breath Sounds, No Accessory Muscle Use, No Respiratory Distress Cardiovascular: No Edema, No Gallop, No JVD, No Murmur, Normal Peripheral Pulses, Irregularly Irregular, Tachycardia Gastrointestinal: Normal Bowel Sounds, No Organomegaly, No Pulsatile Mass, Non Tender, Soft Back: Normal Inspection, No CVA Tenderness, No Vertebral Tenderness Extremity: Normal Capillary Refill, Normal Inspection, Normal Range of Motion, Non Tender, No Calf Tenderness, No Pedal Edema Neurologic/Psychiatric: Alert, Oriented x3, No Motor/Sensory Deficits, Normal Mood/Affect Skin: Normal Color, Warm/Dry Lymphatic: No Adenopathy Results Results/Procedures Labs Laboratory Tests 01/03/20 21:07 01/04/20 02:39 Patient resulted labs reviewed. Assessment/Plan Admission Diagnosis Assessment: AF w/RVR Elevated troponin Former smoker ETOH user Liver transplant status Plan: Cath Cardiology appreciated Admission Status: Inpatient Order (span 2 midnights) Reason for Inpatient Admission: af rvr Diagnosis/Problems Diagnosis/Problems (1) Atrial fibrillation with RVR Status: Acute Clinical Quality Measures DVT/VTE Risk/Contraindication: Risk Factor Score Per Nursin RFS Level Per Nursing on Admit: 4+=Very High BESSIE ECHOLS DO Jan 04, 2020 09:25
--- NOTE | 2020-01-04 09:55 | Consultation-Cardiology ---
HPI-Cardiology Cardiology Consultation Date of Consultation 01/04/20 Date of Admission Time Seen by Provider: 05:31 Indication: Afib with RVR, VT, elevated troponin HPI Patient is a 69 y/o male with history of CAD with stents to LAD and RCA, ischemic cardiomyopathy with ICD implantation in 2019, methamphetamine use. Presented to the ER with complaints of receiving multiple shocks from ICD. Was found to be in Afib with RVR with intermittent runs on VT. Started on amio drip. Currently in SR. Patient reports he has been experiencing episodes of chest pressure and fatigue over the past 2-3 weeks while mowing the lawn. Denies any active chest pain at this time. Denies any dyspnea or syncope. Home Medications & Allergies Allergies: Coded Allergies: No Known Drug Allergies (Unverified , 12/14/17) Home Medication List Reviewed: Yes FZN-Hitxek-Vvibzp Hx Patient Social History Marital Status: single Alcohol Use: Denies Use Recreational Drug Use: Yes Drug of Choice: HX +IV METH AND COCAINE, THC USE. NOW SMOKES METH AND OCCASIONALLY THC Smoking Status: Former Smoker Former smoker/When Quit: Mar 03, 2002 Type Used: Cigarettes 2nd Hand Smoke Exposure: No Recent Foreign Travel: No Recent Infectious Disease Expo: No Recent Hopitalizations: Yes (CO-HEART CATH- 2 STENTS PLACED) Immunizations Up To Date Tetanus Booster (TDap): Unknown Date of Pneumonia Vaccine: Aug 03, 2011 Date of Influenza Vaccine: Apr 11, 2019 Past Medical History Discussed below Family Medical History Significant Family History: No Pertinent Family Hx Family History: Cystic fibrosis 19 MOTHER G8 SISTER FH: breast cancer G8 SISTER Myocardial infarction 19 FATHER Review of Systems-General Review of Systems Constitutional: no symptoms reported, see HPI; No dizziness, No fever, No malaise; weakness EENTM: see HPI, no symptoms reported; No blurred vision, No double vision, No vision loss Respiratory: see HPI; No cough, No dyspnea on exertion, No short of breath Cardiovascular: see HPI, chest pain; No edema; Hx of Intervention, palpitations; No syncope; vascular heart diseas; No other Gastrointestinal: see HPI; No abdominal pain, No constipation, No diarrhea Genitourinary: see HPI; No frequency, No hematuria Musculoskeletal: no symptoms reported, see HPI Skin: no symptoms reported, see HPI Psychiatric/Neurological: See HPI Reviewed Test Results Reviewed Test Results Lab Laboratory Tests 01/03/20 21:07: White Blood Count 9.5, Red Blood Count 5.09, Hemoglobin 14.9, Hematocrit 44, Mean Corpuscular Volume 86, Mean Corpuscular Hemoglobin 29, Mean Corpuscular Hemoglobin Concent 34, Red Cell Distribution Width 14.0, Platelet Count 331, Mean Platelet Volume 11.0H, Neutrophils (%) (Auto) 43, Lymphocytes (%) (Auto) 45H, Monocytes (%) (Auto) 9, Eosinophils (%) (Auto) 2, Basophils (%) (Auto) 0, Neutrophils # (Auto) 4.1, Lymphocytes # (Auto) 4.3H, Monocytes # (Auto) 0.9, Eosinophils # (Auto) 0.2, Basophils # (Auto) 0.0, Prothrombin Time 12.1L, INR Comment 0.9, Activated Partial Thromboplast Time 26, Sodium Level 132L, Potassium Level 3.7, Chloride Level 95L, Carbon Dioxide Level 16L, Anion Gap 21H , Blood Urea Nitrogen 20H, Creatinine 1.21, Estimat Glomerular Filtration Rate 60, BUN/Creatinine Ratio 17, Glucose Level 400H, Calcium Level 9.3, Corrected Calcium 9.1, Magnesium Level 1.9, Total Bilirubin 0.6, Aspartate Amino Transf (AST/SGOT) 47H, Alanine Aminotransferase (ALT/SGPT) 78H, Alkaline Phosphatase 177H, Myoglobin 94.1H, Troponin I < 0.028, B-Type Natriuretic Peptide 133.9H, Total Protein 9.0H, Albumin 4.3, Serum Alcohol 44H 01/03/20 21:17: Glucometer 371H 01/03/20 22:00: Urine Opiates Screen NEGATIVE, Urine Oxycodone Screen NEGATIVE, Urine Methadone Screen NEGATIVE, Urine Propoxyphene Screen NEGATIVE, Urine Barbiturates Screen NEGATIVE, Ur Tricyclic Antidepressants Screen NEGATIVE, Urine Phencyclidine Screen NEGATIVE, Urine Amphetamines Screen NEGATIVE, Urine Methamphetamines Screen POSITIVEH, Urine Benzodiazepines Screen NEGATIVE, Urine Cocaine Screen NEGATIVE, Urine Cannabinoids Screen NEGATIVE 01/04/20 00:11: Glucometer 415*H 01/04/20 02:39: White Blood Count 7.5, Red Blood Count 4.76, Hemoglobin 14.1, Hematocrit 41, Mean Corpuscular Volume 86, Mean Corpuscular Hemoglobin 30, Mean Corpuscular Hemoglobin Concent 35, Red Cell Distribution Width 13.8, Platelet Count 272, Alona n Platelet Volume 10.9H, Neutrophils (%) (Auto) 59, Lymphocytes (%) (Auto) 31, Monocytes (%) (Auto) 9, Eosinophils (%) (Auto) 1, Basophils (%) (Auto) 0, Neutrophils # (Auto) 4.4, Lymphocytes # (Auto) 2.3, Monocytes # (Auto) 0.7, Eosinophils # (Auto) 0.1, Basophils # (Auto) 0.0, Sodium Level 135, Potassium Level 4.3, Chloride Level 102, Carbon Dioxide Level 21, Anion Gap 12, Blood Urea Nitrogen 19H, Creatinine 0.89, Estimat Glomerular Filtration Rate > 60, BUN/Creatinine Ratio 21, Glucose Level 275H, Calcium Level 9.1, Phosphorus Level 2.7, Magnesium Level 2.2, Troponin I 2.356*H, Triglycerides Level 157H, Cholesterol Level 193, LDL Cholesterol Direct 146H, VLDL Cholesterol 31, HDL Cholesterol 39L 01/04/20 04:16: Glucometer 216H 01/04/20 08:24: Glucometer 253H ECG Impression ECG Initial ECG Rhythm: A Fib/Flutter Physical Exam Physical Exam Vital Signs Vital Signs - First Documented 01/03/20 21:05 Temp 36.4 Pulse 215 Resp 26 B/P (MAP) 151/100 (117) Pulse Ox 97 O2 Delivery Room Air Capillary Refill : Less Than 3 Seconds Height, Weight, BMI Height: 6'0.00" Weight: 240lbs. 0.0oz. 108.550141ml; 34.27 BMI Method:Stated General Appearance: WD/WN, Moderate Distress HEENT: PERRL/EOMI, Normal ENT Inspection Neck: Normal Inspection Respiratory: Lungs Clear, Normal Breath Sounds, No Accessory Muscle Use, No Respiratory Distress Cardiovascular: No Edema, No Murmur, Irregularly Irregular, Tachycardia Gastrointestinal: Non Tender, Soft Extremity: Normal Inspection, No Pedal Edema Neurologic/Psychiatric: Alert, Oriented x3, No Motor/Sensory Deficits, Normal Mood/Affect, dog hair clipper II-XII Norm as Tested Skin: Normal Color, Warm/Dry A/P-Cardiology Admission Diagnosis non-STEMI Afib with RVR VT CAD Assessment/Plan Non-STEMI, elevated troponin, patient reports episodes of chest pain/pressure over the past several weeks while mowing his lawn. Currently chest pain free. Planning for [facility] for further evaluation. Afib with RVR, new onset, started on amiodarone, currently in sinus rhythm. VT- patient received multiple shocks from ICD, started on amiodarone. Continue to monitor. Coronary artery disease, had cardiac catheterization in April 2019 showing severe multisegment stenosis in the right coronary artery with subtotal occlusion at the midportion, complex intervention with deployment of 2 stents proximally 2.75 x 18 mm expanded to 3.05 proximally and 2.91 distally, no overlap between the stent the second stent is Ita 2.523 expanded to 2.81 with excellent results. had acute myocardial infarction on May 02, 2019, underwent deployment of resolute integrity 2.5 x 18 mm expanded to 2.65 to the proximal LAD, returned with ST elevation myocardial infarction on May 04, 2019 had occlusion of the LAD had balloon angioplasty then deployment of 2 stents resolute integrity 2.5 x 18 mm in the midportion and resolute Nael 2 x 22 in the distal LAD with good results. Continue on Brilinta and aspirin. Planning for C later today. Congestive heart failure, chronic compensated left ventricular systolic dysfunction, ischemic cardiomyopathy, ejection fraction 30 percent. Status post implantation of single-chamber ICD for primary prevention using [employer] VISIA MRI [id number], done on September 07, 2019, site is healing well, no complication. Continue to monitor Hypertension, restart home blood pressure medication, continue to monitor Mild bilateral carotid stenosis, ultrasound was done in April 2019. 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 Noncompliance with medication, was admitted with acute CO after not taking his Brilinta. Currently compliant in taking his medication regularly. Continue to monitor Thank you for allowing us to participate in the management of Mr. Boyd. This is Tessie Wray PA-C, as a scribe for Dr. Rodriguez. Patient was seen and evaluated with Tessie, examination performed, management plan was discussed, agree with the current scribed note, I made few changes to the note using Italic font This is a 69-year-old gentleman with history of coronary artery disease as described above, used meth amphetamine recently, reported that he has been comp liant with medication, noted to have multiple shocks from his defibrillator. Upon reviewing his ICD interrogation showed multiple episode of atrial fibrillation and multiple episodes of wide-complex ventricular tachycardia. He has been having chest pain with exertion and fatigue and shortness of breath with exertion. Had extensive cardiac history as described above. On examination lungs were clear to auscultation, heart is irregular. Currently feeling better. Noted to have elevated troponin level. Having ventricular tachycardia on his ICD Started on amiodarone Planning to proceed with cardiac catheterization Restart beta blockers and monitor heart rate and blood pressure control. I had a long discussion with the patient about compliance with medication and avoiding illicit drugs Clinical Quality Measures DVT/VTE Risk/Contraindication: Risk Factor Score Per Nursin RFS Level Per Nursing on Admit: 4+=Very High TESSIE ROYAL Jan 04, 2020 09:55 SAHARA RODRIGUEZ MD Jan 04, 2020 12:01
[2020-01-04] MEDS ORDERED: LIDOCAINE 1% INJ 20 ML 20 ML VIAL ONE (10:01)
[2020-01-04] MEDS ORDERED: HEParin (CATH LAB) 2,000 ML IV ONE (10:01)
[2020-01-04] MEDS: LOSARTAN 25 MG (COZAAR) TAB PO SCH (11:00)
--- NOTE | 2020-01-04 11:22 | NUR ---
THIS NURSE NOTIFIED DR CABALLERO PT SCORED A [address] CABALLERO WOULD LIKE CARDIOLOGY OPINION SINCE PT IS GETTING A CATH TODAY. THIS NURSE NOTIFIED DR LONG OF PT DVT SCORE OF 4. DR LONG WILL DECIDED AFTER PT GETS HIS CATH TODAY. WILL CONTINUE TO MONITOR.
--- NOTE | 2020-01-04 11:31 | NUR ---
SPOKE WITH PT, WENT THRU THE EXT MED HISTORY AND I CALLED [facility] TO COMPLETE THE MED REC PT WAS HONEST ABOUT HIS INSULIN, SAYING HE "ONLY TAKES IT NOW AND THEN WHEN HE REMEMBERS OR FEELS LIKE HE NEEDS TO TAKE" I DID INCLUDE THE PAST DUE FILL DATES ON THE MED REC WHEN I WAS SPEAKING WITH THE PT ABOUT HIS INSULIN I INQUIRED ABOUT HOW OFTEN HE TESTS HIS BLOOD SUGAR (I WAS TRYING TO FIND OUT IF THERE WAS A CONSISTENCY OF HIS DECIDING TO TAKE HIS INSULIN)- PT SAYS HE DOESNT CHECK HIS BS REGULARLY AND WASNT EVER GIVEN INFORMATION OR TOLD THE IMPORTANCE. I TOLD HIM I WOULD SEE ABOUT GETTING SOMEONE TO TALK WITH HIM ABOUT THOSE ISSUES. I WILL SPEAK WITH HIS NURSE ABOUT GETTING A DIABETIC COUNSELING ORDER PUT IT BRILNTA 90MG LAST FILLED 11-11-2019 #60/30DS - I DID INCLUDE THE PAST DUE FILL ON THE MED REC METOPROLOL ER 25MG LAST FILLED 09-20-2019 #90/90DS- I DID INCLUDE THE PAST DUE FILL ON THE MED REC OTC MEDS: ASPIRIN 81 FISH OIL
--- NOTE | 2020-01-04 11:45 | NUR ---
Spoke with patient about importance of monitoring BS and taking insulin as prescribed by PCP. Also talked to pt the importance of BS and wound healing. Pt reports he has seen Dr. Edwards in the past fro diabetic ulcers, but has not seen him in several months. I reminded him about the importance of seeing Dr. Edwards anytime he develops an ulcer on his feet.
--- NOTE | 2020-01-04 14:30 | NUR ---
THIS NURSE NOTIFIED DR RENAE OF CONSULT.
[2020-01-04] MEDS ORDERED: fentaNYL INJECTION 100 MCG/2 ML AMP ONE (15:12)
[2020-01-04] MEDS ORDERED: MIDAZOLAM 5 MG/5 ML (VERSED) VIAL ONE (15:12)
[2020-01-04] MEDS ORDERED: NS IV 1000 ML 0 ML ONE (15:13)
--- NOTE | 2020-01-04 16:29 | Cardiac Cath Report ---
Cardiac Cath Report Physician (s)/Personal Care Home Administrator (s) Physician SAHARA LONG MD Pre-Procedure Diagnosis Pre-Procedure Diagnosis: coronary artery disease, ventricular tachycardia Post-Procedure Note Procedure Start Date: Jan 04, 2020 Name of Procedure: Left heart catheterization Left ventriculogram Findings/Procedure Note PROCEDURE NOTE: 69-year-old gentleman with history of coronary artery disease, severe cardiomyopathy, received multiple shocks from his defibrillator, it appear that he was having multiple episode of atrial fibrillation with rapid ventricular response and multiple episode of ventricular tachycardia. After explaining the procedure to the patient, all pros and cons were explained, all questions were answered. The patient signed the consent and then he was placed on the cardiac catheterization laboratory. Groin was prepped SL fashion local anesthesia was used. Sheath placed in the right radial artery. Prabhjot right and left catheter were used to access the coronary system. Pigtail was used to access the left ventricular cavity. Left ventriculogram was done At the end of the procedure the sheath was removed. Closure device was used FINDINGS: Hemodynamics LV 117/18, end-diastolic pressure of 18 Aorta 121/72 mean of 92 ANATOMY: Left Main is free of obstructive disease Left Anterior Descending has patent stent proximal and midportion, distally at the level of the apex there is moderate to severe stenosis, very small artery, second diagonal artery has severe stenosis proximally, smaller artery Left Circumflex is moderate in size with mild disease nonobstructive disease Right Coronory Artery has patent stent in the mid and distal portion with good flow distally nonobstructive disease LV Gram is dilated with diffuse left ventricular hypokinesia estimated ejection fraction 30 percent CONCLUSION: 1. Patent stents in the LAD with severe stenosis at the distal LAD at the level of the apex, very small artery distally. Moderate to severe stenosis in the second diagonal artery, no change compared to the previous study 2. Patent stents in the right coronary artery with small vessel disease distally 3. Mild disease in the circumflex artery nonobstructive disease 4. Prominent left ventricle with diffuse left ventricular hypokinesia estimated ejection fraction 30 percent DISCUSSION AND RECOMMENDATION: Continue to maximize medical therapy, patient started on amiodarone. Anesthesia Type: Conscious Sedation Estimated blood loss (mL): 25 ml Contrast Amount: 41 ml Total Radiation Dose: 412 mGy Post-Procedure Diagnosis Post-operative diagnosis: Ventricular tachycardia Coronary artery disease Congestive heart failure, chronic compensated left ventricular systolic dysfunction, ischemic cardiomyopathy Hypertension SAHARA LONG MD Jan 04, 2020 4:29 pm
[2020-01-04] MEDS ORDERED: PATIENT MAY USE OWN MEDS, ALL PO SCH (16:30)
--- NOTE | 2020-01-04 16:42 | Electrophysiology Consultation ---
HPI-Cardiology Cardiology Consultation: Date of Consultation 01/04/20 Date of Admission Attending Physician Bessie Echols DO Admitting Physician Andreas Vergara MD Consulting Physician Christie CHIN MD HPI: Time Seen by a Provider: 16:42 Chief Complaint: ICD shock. This is a 69-year-old gentleman who is a patient of Dr. Rodriguez. EP consultation has been recommended. He has history of CAD with previous PCI to LAD and RCA. Ischemic cardiomyopathy with ICD implantation in September 2019. He does have history of drug abuse. he has history of liver transplant. He presented to the ER with multiple shocks from the ICD. Was found to be in atrial fibrillation with RVR with intermittent runs of VT. He was started on amiodarone infusion. Patient has complained of few episode of chest discomfort in the past 2-3 weeks. He denied any other complaints. Unclear smoking history, however he does use methamphetamine. Pertinent family history is negative. Review of Systems-Cardiology Review of Systems Constitutional: As described under HPI; No As described under HPI, No no symptoms reported, No chills, No fever, No lightheadedness Eyes: No As described under HPI, No no symptoms reported, No blindness, No blurred vision, No contact lenses, No drainage, No decreased acuity, No foreign body sensation, No pain, No vision change Ears/Nose/Throat: No As described under HPI, No no symptoms reported, No chronic hearing loss, No ear discharge, No ear pain, No nasal drainage, No ulcerations Respiratory: No no symptoms reported; As described under HPI; No As described under HPI, No cough, No orthopnea, No shortness of breath, No SOB with excertion Cardiovascular: No no symptoms reported; As described under HPI; No As described under HPI; chest pain; No edema, No irregular heart rate, No lightheadedness, No palpitations Gastrointestinal: No no symptoms reported, No As described under HPI, No abdomen distended, No abdominal pain, No blood streaked bowels, No constipation, No diarrhea, No nausea, No vomiting, No stool coloration changes Genitourinary: No As described under HPI, No burning, No dysuria, No discharge, No frequency, No flank pain, No hematuria, No urgency Skin: No rash, No skin related problems, No ulcerations Psychiatric/Neurological: No anxiety, No depression, No seizure, No focal weakness, No syncope Hematologic: No bleeding abnormalities EJK-Pgxncv-Bfkzze Hx Patient Social History Marrital Status: single Alcohol Use: Denies Use Recreational Drug Use: Yes Drug of Choice: HX +IV METH AND COCAINE, THC USE. NOW SMOKES METH AND OCCASIONALLY THC Smoking Status: Former Smoker Former smoker/When Quit: Mar 03, 2002 Type Used: Cigarettes 2nd Hand Smoke Exposure: No Recent Foreign Travel: No Recent Infectious Disease Expo: No Hospitalization with Isolation: Denies Immunizations Up To Date Tetanus Booster (TDap): Unknown Date of Pneumonia Vaccine: Aug 03, 2011 Date of Influenza Vaccine: Apr 11, 2019 Past Medical History PMH As described under Assessment. Family Medical History Family History: Cystic fibrosis 19 MOTHER G8 SISTER FH: breast cancer G8 SISTER Myocardial infarction 19 FATHER Allergies and Home Medications Allergies Coded Allergies: No Known Drug Allergies (Unverified , 12/14/17) Home Medications Amiodarone HCl 200 Mg Tablet, 400 MG PO BID take 2 twice a day for 14 days then 2 a day Prescribed by: SHYANNE JANSEN on 01/06/20 1118 Aspirin 81 Mg Tablet.dr, 81 MG PO DAILY, (Reported) Atorvastatin Calcium 10 Mg Tablet, 10 MG PO DAILY, (Reported) Insulin Aspart 300 Units/3 Ml Solution, 15 UNITS SQ TIDAC PRN for HYPERGLYCEMIA, (Reported) LAST FILLED 06-20-2019 #1 VIAL/30 DAY SUPPLY Insulin Detemir 100 Unit/1 Ml Insuln.pen, 20 UNIT SQ HS PRN for HYPERGLYCEMIA, (Reported) LAST FILLED 05-13-2019 #1 VIAL Losartan Potassium 25 Mg Tablet, 25 MG PO DAILY, (Reported) Metformin HCl 1,000 Mg Tablet, 1,000 MG PO BID, (Reported) Metoprolol Tartrate 50 Mg Tablet, 50 MG PO BID Prescribed by: SHYANNE JANSEN on 01/06/20 1019 [place]-3/Dha/Epa/Fish Oil 1,000 Mg Capsule, 1,000 MG PO BID, (Reported) Ticagrelor 90 Mg Tablet, 90 MG PO BID, (Reported) LAST FILLED 11-11-2019 #60 Patient Home Medication List Home Medication List Reviewed: Yes Physical Exam-Cardiology Physical Exam Vital Signs/I&O 01/06/20 01/06/20 01/06/20 01/06/20 03:00 04:00 04:00 04:17 Temp 36.4 Pulse 66 71 Resp 23 18 B/P (MAP) 103/58 (73) 112/77 (89) Pulse Ox 99 98 100 O2 Delivery Room Air Room Air Room Air 01/06/20 01/06/20 01/06/20 01/06/20 05:00 06:00 07:05 07:26 Temp 36.6 Pulse 72 63 74 75 Resp 27 25 19 B/P (MAP) 112/67 (82) 99/52 (68) 137/49 (78) Pulse Ox 98 99 100 O2 Delivery Room Air Room Air 01/06/20 01/06/20 01/06/20 01/06/20 08:00 09:00 10:00 11:00 Pulse 69 68 68 65 Resp 23 20 27 51 B/P (MAP) 125/72 (89) 112/63 (79) 124/44 (70) Pulse Ox 99 97 100 100 O2 Delivery Room Air Room Air Room Air Room Air 01/06/20 01/06/20 11:09 12:00 Temp 36.4 Pulse 69 Resp 24 B/P (MAP) 199/174 (182) Pulse Ox 100 O2 Delivery Room Air 01/06/20 00:00 Intake Total 2720 ml Output Total 2625 ml Balance 95 ml Capillary Refill : Less Than 3 Seconds Constitutional: appears stated age, AAO x 3; No apparent distress; well- developed, well-nourished HEENT: PERRL; No discharge; hearing is well preserved, oral hygience is good; No ulceration, No xanthelasmas are seen Neck: No carotid bruit; carotid pulses are 2 + bilaterally Respiratory: chest is bilaterally symmetric, lungs clear to auscultation Cardiovascular: regular rate-rhythm, S1 and S2 Gastrointestinal: soft, audible bowel sounds; No spleenomegaly Rectal: deferred Extremities: normal range of motion, non-tender, normal inspection; No clubbing, No cyanosis; no lower extremity edema bilateral; No significant edema Neurologic/Psychiatric: no motor/sensory deficits, alert, normal mood/affect, oriented x 3, power is 5/5 both on sides Skin: normal color, warm/dry; No rash, No ulcerations Data Review Labs Laboratory Tests 01/05/20 16:04: Glucometer 177H 01/05/20 19:55: Glucometer 261H 01/06/20 00:12: Glucometer 170H 01/06/20 02:53: White Blood Count 4.5, Red Blood Count 4.10L, Hemoglobin 12.1L, Hematocrit 36L, Mean Corpuscular Volume 89, Mean Corpuscular Hemoglobin 30, Mean Corpuscular Hemoglobin Concent 33, Red Cell Distribution Width 14.7H, Platelet Count 238, Mean Platelet Volume 11.0H, Neutrophils (%) (Auto) 50, Lymphocytes (%) (Auto) 33, Monocytes (%) (Auto) 13H, Eosinophils (%) (Auto) 4, Basophils (%) (Auto) 1, Neutrophils # (Auto) 2.3, Lymphocytes # (Auto) 1.5, Monocytes # (Auto) 0.6, Eosinophils # (Auto) 0.2, Basophils # (Auto) 0.0, Sodium Level 140, Potassium Level 3.9, Chloride Level 112H, Carbon Dioxide Level 22, Anion Gap 6, Blood Urea Nitrogen 15, Creatinine 0.74, Estimat Glomerular Filtration Rate > 60, BUN/Creatinine Ratio 20, Glucose Level 198H, Calcium Level 7.7L, Phosphorus Level 2.3, Magnesium Level 2.0 01/06/20 08:43: Glucometer 368H 01/06/20 11:11: Glucometer 256H Microbiology 01/03/20 MRSA Screen - Final, Complete MRSA not isolated ECG Impression ECG Comment I reviewed the strips in the ER which showed atrial fibrillation with RVR with likely nonsustained ventricular tachycardia as well. A/P-Cardiology Assessment/Admission Diagnosis Atrial fibrillation with RVR, Ischemic cardiomyopathy, ICD implantation in , Ventricular tachycardia Appropriate and inappropriate shocks. Plan Cardiac EP consultation: Atrial fibrillation with RVR, rate control, oral anticoagulation and IV amiodarone. Ischemic cardiomyopathy, ICD implantation in , device interrogation. Ventricular tachycardia; on IV amiodarone. Coronary angiography revealed stable CAD with no PCI done. ICD shocks. Thank you for your consultation. Please call me if you have any questions. Josefina Chin MD, FACP, FACC, FSCAI, FHRS, CCDS Interventional Cardiology Cardiac Electrophysiology Vascular Medicine and Endovascular Interventions Clinical Quality Measures DVT/VTE Risk/Contraindication: Risk Factor Score Per Nursin RFS Level Per Nursing on Admit: 4+=Very High Christie CHIN MD Jan 04, 2020 16:42
--- NOTE | 2020-01-04 17:00 | NUR ---
THIS NURSE PAGED [employer] REGARDING PT DEFIB INTERROGATION REPORT. Addendum: 01/04/[address] RN RECEIVED FAX REPORT FROM [facility]. PLACED ON PT CHART.
[2020-01-04] MEDS ORDERED: HYDROcodone/APAP 5 MG/325 MG (LORTAB) TAB PO PRN (20:00)
[2020-01-04] MEDS ORDERED: HYDROcodone/APAP 5 MG/325 MG (LORTAB) TAB ONE (20:14)
[2020-01-04] MEDS: AMIODARONE 200 MG (CORDARONE) TAB PO SCH (20:17)
[2020-01-05] VITALS (24 sets, daily range): BP systolic 84–128; BP diastolic 48–93
[2020-01-05] MEDS: inSUlin ASPART (NovoLOG) 1 UNIT/0.01 ML (CHARGE PER UNIT) SC SCH ×6 (00:09→20:56)
[2020-01-05] MEDS: NS IV 1000 ML 1,000 ML IV SCH ×2 (02:14→06:20)
[2020-01-05 03:51] LABS: BASOPHILS % (AUTO) 0 % (0-10); EOSINOPHILS # (AUTO) 0.2 10^3/uL (0.0-0.3); EOSINOPHILS % (AUTO) 3 % (0-10); HEMATOCRIT 38 % (40-54); HEMOGLOBIN 12.7 G/DL (13.3-17.7); LYMPHOCYTES # (AUTO) 1.3 X 10^3 (1.0-4.0); LYMPHOCYTES % (AUTO) 21 % (12-44); MEAN CORPUSCULAR HEMOGLOBIN 29 PG (25-34); MEAN CORPUSCULAR HGB CONC 33 G/DL (32-36); MEAN CORPUSCULAR VOLUME 87 FL (80-99); MEAN PLATELET VOLUME 11.2 FL (7.4-10.4); MONOCYTES # (AUTO) 0.7 X 10^3 (0.0-1.0); MONOCYTES % (AUTO) 10 % (0-12); NEUTROPHILS # (AUTO) 4.2 X 10^3 (1.8-7.8); NEUTROPHILS % (AUTO) 66 % (42-75); PLATELET COUNT 264 10^3/uL (130-400); RED CELL DISTRIBUTION WIDTH 14.6 % (10.0-14.5); WHITE BLOOD COUNT 6.4 10^3/uL (4.3-11.0)
[2020-01-05 04:14] LABS: BUN/CREATININE RATIO 23; CALCIUM 7.8 MG/DL (8.5-10.1); CARBON DIOXIDE 20 MMOL/L (21-32); CHLORIDE 109 MMOL/L (98-107); CREATININE SERUM 0.71 MG/DL (0.60-1.30); GFR ESTIMATED > 60; GLUCOSE 151 MG/DL (70-105); MAGNESIUM 1.9 MG/DL (1.6-2.4); PHOSPHORUS 1.4 MG/DL (2.3-4.7); POTASSIUM 3.4 MMOL/L (3.6-5.0); SODIUM 137 MMOL/L (135-145)
[2020-01-05] MEDS: POTASSIUM CL 10MEQ/50ML IVPB 50 ML IV SCH ×7 (05:21→12:10)
[2020-01-05] MEDS: MAGNESIUM 1 GM/100 ML IVPB 100 ML IV SCH (05:22)
--- NOTE | 2020-01-05 05:39 | Pulmonary Progress Note ---
Subjective Time Seen by a Provider: 05:36 Sepsis Event Evaluation Height, Weight, BMI Height: 6'0.00" Weight: 240lbs. 0.0oz. 108.445417zh; 34.27 BMI Method:Stated Exam Exam Vital Signs Date Time Temp Pulse Resp B/P (MAP) Pulse Ox O2 Delivery O2 Flow Rate FiO2 01/05/20 05:00 61 10 96/57 (70) 99 Room Air 01/05/20 04:00 98 Room Air 01/05/20 04:00 74 20 104/68 (80) 99 Room Air 01/05/20 03:50 36.0 01/05/20 03:00 67 15 98/64 (75) 98 Room Air 01/05/20 02:00 74 19 92/66 (75) 97 Room Air 01/05/20 01:00 74 01/05/20 01:00 72 13 101/65 (77) 98 Room Air 01/05/20 00:00 80 12 123/81 (95) 97 Room Air 01/05/20 00:00 98 Room Air 01/04/20 23:00 87 21 103/64 (77) 97 Room Air 01/04/20 22:00 84 12 100/64 (76) 96 Room Air 01/04/20 21:00 77 18 106/69 (81) 97 Room Air 01/04/20 20:42 36.6 01/04/20 20:00 75 14 106/69 (81) 98 Room Air 01/04/20 20:00 98 Room Air 01/04/20 19:00 76 14 114/72 (86) 98 Room Air 01/04/20 19:00 80 01/04/20 18:00 73 7 113/81 (92) 98 Room Air 01/04/20 17:00 76 13 106/69 (81) 99 Room Air 01/04/20 16:30 98 Room Air 01/04/20 16:00 77 17 107/70 (82) 98 Room Air 01/04/20 15:40 36.2 01/04/20 15:00 100 19 112/72 (85) 99 Room Air 01/04/20 14:00 71 23 113/72 (86) 99 Room Air 01/04/20 13:06 83 01/04/20 13:00 76 27 112/62 (79) 97 Room Air 01/04/20 12:00 76 12 109/72 (84) 99 Room Air 01/04/20 12:00 97 Room Air 01/04/20 11:15 36.1 01/04/20 11:00 79 24 127/78 (94) 98 Room Air 01/04/20 10:00 75 6 120/88 (99) 100 Room Air 01/04/20 09:00 77 9 121/76 (91) 99 Room Air 01/04/20 08:00 96 Room Air 01/04/20 08:00 76 22 116/101 (106) 99 Room Air 01/04/20 07:10 36.2 01/04/20 07:00 77 01/04/20 07:00 76 23 119/75 (90) 100 Room Air 01/04/20 06:09 35.9 01/04/20 06:00 79 23 109/73 (85) 99 Room Air I & O 01/05/20 07:00 Intake Total 1769 ml Output Total 1350 ml Balance 419 ml Height & Weight Height: 6'0.00" Weight: 240lbs. 0.0oz. 108.290288wn; 34.27 BMI Method:Stated General Appearance: No Apparent Distress HEENT: PERRL/EOMI, TMs Normal, Normal ENT Inspection, Pharynx Normal, Moist Mucous Membranes Neck: Full Range of Motion, Normal Inspection, Non Tender Respiratory: Chest Non Tender, Lungs Clear, Normal Breath Sounds, No Accessory Muscle Use, No Respiratory Distress Cardiovascular: No Edema, No Gallop, No JVD, No Murmur, Normal Peripheral Pulses, Irregularly Irregular, Tachycardia Capillary Refill: Less Than 3 Seconds Extremity: Normal Capillary Refill, Normal Inspection, Normal Range of Motion, Non Tender, No Calf Tenderness, No Pedal Edema Neurologic/Psychiatric: Alert, Oriented x3, No Motor/Sensory Deficits, Normal Mood/Affect Skin: Normal Color, Warm/Dry Lymphatic: No Adenopathy Results Lab Laboratory Tests 01/03/20 21:07 01/04/20 02:39 01/05/20 02:55 Assessment/Plan Assessment/Plan Afib/Flutter RVR -Amio gtt -Cardiology is following -S/p 11 shocks from defibrillator Methamphetamine use -Drug screen is positive -education Alcohol use -Education Hx of liver transplant -Pt states he has not been on any anti-rejection meds for 4yrs -Will defer to PCP CHF hx CAD EDWINA DUBON DO Jan 05, 2020 05:38
[2020-01-05] MEDS ORDERED: SODIUM PHOSPHATE INJ 30 MM in NS (IVPB) 250 ML IV ONE (05:45)
[2020-01-05] MEDS: KCL 20 MEQ TAB (K-DUR) PO SCH (06:13)
--- NOTE | 2020-01-05 07:03 | Progress Note - Hospitalist ---
Subjective HPI/CC On Admission Date Seen by Provider: Jan 05, 2020 Time Seen by Provider: 09:30 CC: AF with RVR with chest pain HPI: This is a 69yoWM who presents with AF with RVR with chest pain. At this current time his chest pain is resolved, no SOB. He will have cardiac cath today and will be monitored in the ICU until that. Subjective/Events-last exam Pt doing pretty well Elevated sugar of 436 was treated with a high dose of Novolog Dr. Chin will reach out to transplant team because he will need a high dose of Amiodarone to maintain his normal sinus rhythm but we will need to reach out to [facility] for that, will await for the plan Pt denies any chest pain Reviewed procedure records Review of Systems General: Fatigue Objective Exam Vital Signs Vital Signs Date Time Temp Pulse Resp B/P (MAP) Pulse Ox O2 Delivery O2 Flow Rate FiO2 01/05/20 20:31 36.5 01/05/20 19:00 73 01/05/20 18:00 14 128/89 (102) Room Air 01/05/20 17:00 98 Capillary Refill : Less Than 3 Seconds General Appearance: No Apparent Distress, WD/WN, Chronically ill Respiratory: Chest Non Tender, Lungs Clear, Normal Breath Sounds, No Accessory Muscle Use, No Respiratory Distress Cardiovascular: Regular Rate, Rhythm, No Edema, No Gallop, No JVD, No Murmur, Normal Peripheral Pulses Neurologic/Psychiatric: Alert, Oriented x3, No Motor/Sensory Deficits, Normal Mood/Affect Results/Procedures Lab Laboratory Tests 01/05/20 02:55 Patient resulted labs reviewed. Assessment/Plan Assessment and Plan Assess & Plan/Chief Complaint Assessment: AF w/RVR Elevated troponin Former smoker ETOH user Liver transplant status DM OOC Plan: Cath reviewed Cardiology appreciated Transplant team KERRI direction for Amiodarone Diagnosis/Problems Diagnosis/Problems (1) Atrial fibrillation with RVR Status: Acute Clinical Quality Measures DVT/VTE Risk/Contraindication: Risk Factor Score Per Nursin RFS Level Per Nursing on Admit: 4+=Very High KEITH CABALLERO DO Jan 05, 2020 07:03
--- NOTE | 2020-01-05 07:31 | Diagnostic Imaging Report ---
INDICATION: A. fib. Comparison made with prior examination from 01/03/2020 FINDINGS: There is cardiomegaly. Mediastinum is unremarkable. Lungs are clear. There is no pleural effusion or pneumothorax. There may be some minimal venous congestion. Pacemaker overlies left hemithorax. IMPRESSION: Cardiomegaly and some minimal central pulmonary venous congestion. Dictated by: Dictated on workstation # [id number]
[2020-01-05] MEDS: LOSARTAN 25 MG (COZAAR) TAB PO SCH (08:09)
[2020-01-05] MEDS: TICAGRELOR 90 MG TABLET (BRILINTA) PO SCH ×2 (08:10→20:55)
[2020-01-05] MEDS: AMIODARONE 200 MG (CORDARONE) TAB PO SCH ×2 (08:10→20:55)
[2020-01-05] MEDS: ASPIRIN E.C. 81 MG (ECOTRIN) TAB PO SCH (08:10)
--- NOTE | 2020-01-05 08:10 | NUR ---
THIS NURSE NOTIFIED DR CABALLERO OF 496 BLOOD SUGAR. ORDER GIVEN. SEE ORDER HX.
[2020-01-05] MEDS ORDERED: inSUlin ASPART (NovoLOG) 1 UNIT/0.01 ML (CHARGE PER UNIT) SC ONE (08:15)
--- NOTE | 2020-01-05 08:31 | CONSULTATION REPORT ---
DATE OF SERVICE: 01/05/2020 REASON FOR CONSULTATION: Continuation of foot care. HISTORY OF PRESENT ILLNESS: This 69-year-old was admitted to the hospital secondary to cardiac issues. He indicated that his defibrillator engaged several times prompting him to seek medical care. He was subsequently admitted to ICU for an atrial fibrillation with RVR and chest pain. The patient has a long history of multiple foot ulcers. He most recently has been treating a wound to the great toe area with Silvadene cream and gauze dressing and wearing a surgical splint shoe on the lateral aspect of the same foot. He has also had a small lesion that he has been treating in a similar manner. 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 He denies any fever, chills, nausea or vomiting. PAST MEDICAL HISTORY: Type 2 diabetes, peripheral neuropathy, coronary artery disease, hypertension, AFib, liver disease, jaundice, hepatitis, cirrhosis and depression. PAST SURGICAL HISTORY: Include multiple foot amputations including the above-mentioned transmetatarsal amputation, amputations to the multiple digits of left foot. He has had appendectomy, coronary stents, cholecystectomy, liver transplant and tonsillectomy. SOCIAL HISTORY: The patient is single. Alcohol consumption is current. History of illicit drug use including methamphetamines and cocaine. He is a former smoker and quit in 1989. The patient has no known drug allergies. PHYSICAL EXAMINATION: EXTREMITIES: Lower extremity examination, the patient has a palpable dorsalis pedis pulse bilaterally, nonpalpable posterior tibial pulse bilaterally. Cap refill time is approximately 3 seconds to the distal foot. NEUROLOGIC: The patient has diminished protective sensation per 10 gram monofilament wire examination bilaterally. DERMATOLOGIC: The patient has a full thickness wound on the plantar aspect of the left first metatarsal head that measures 4 x 6 mm and 3 mm in depth with a fibrotic base, minimal hyperkeratotic border, minimal erythema, no active exudate, no proximal streaking and no bogginess noted. LESION: There is a superficial lesion to the lateral aspect of the left fifth metatarsal head area that measures 9 x 7 mm with some dry skin. No exudate. No proximal streaking. No open lesions are identified. MUSCULOSKELETAL FINDINGS: The patient has a severe lateral deviation to the left hallux with a plantar medial eminence to the first metatarsal head. The patient has amputation of the second digit, partial amputation of the third and fourth digits. There is a transmetatarsal amputation on the right lower extremity. ASSESSMENT: Diabetic neuropathy, full-thickness ulceration left first metatarsal head, partial thickness ulceration left fifth metatarsal head area, atherosclerosis and history of multiple amputations bilateral foot. PLAN: Various treatment options were discussed with the patient today and I am going to go ahead and order some wound care to be performed daily for the patient. The patient understands that pressure is the main cause for his current condition. He is currently walking in a surgical splint shoe, which provides minimal to no padding. He needs to be fitted with a custom insoles and diabetic type shoes. Today, a Silvadene and a gauze dressing will be applied bilaterally. I am going to also order some x-rays just to make sure that there is no underlying bone involvement. It has been well over a year since I have seen this patient. I will see the patient upon discharge for the fitting of the diabetic shoes. Job ID: [id number] DocumentID: [id number] Dictated Date: 01/05/2020 07:58:47 Manager Case Management Date: 01/05/2020 08:31:05 Dictated By: KENNY RENAE DPM
--- NOTE | 2020-01-05 08:57 | Diagnostic Imaging Report ---
INDICATION: Chronic ulceration of 1st and 5th metatarsals. AP, oblique, and lateral views of the left foot are obtained and compared to 09/04/2017. There has been amputation of the 2nd digit at the level of the distal aspect of the 2nd metatarsal. There has been amputation of 3rd digit at the level of the midportion of the proximal phalanx. These findings are unchanged compared to the prior study. There is a marked hallux valgus deformity with prominent degenerative change of 1st MTP joint. This is also not changed compared to the prior study. There is no acute fracture. There is an old fracture deformity of the 4th metatarsal. There is no acute erosive bony lesion seen. IMPRESSION: Extensive chronic changes in the left foot as described above, these findings have not changed from 09/04/17. There is no acute appearing abnormality. Dictated by: Dictated on workstation # [id number]
--- NOTE | 2020-01-05 09:11 | Cardiology Progress Note ---
Subjective Date Seen by Provider: Jan 05, 2020 Time Seen by Provider: 09:09 Subjective/Events-last exam Patient is laying down in bed, feeling better, groin is healing well. Review of Systems General: No Chills, No Night Sweats, No Fatigue, No Malaise, No Appetite, No Other HEENT: No Head Aches, No Visual Changes, No Eye Pain, No Ear Pain, No Dysphasia, No Sinus Congestion, No Post Nasal Drip, No Sore Throat, No Other Pulmonary: No Dyspnea, No Cough, No Pleuritic Chest Pain, No Other Cardiovascular: No: Chest Pain, Palpitations, Orthopnea, Paroxysmal Noc. Dyspnea, Edema, Lt Headedness, Other Objective-Cardiology Exam Last Set of Vital Signs Vital Signs 01/05/20 01/05/20 07:21 09:00 Temp 36.1 Pulse 74 Resp 16 B/P (MAP) 99/57 (71) Pulse Ox 97 O2 Delivery Room Air Capillary Refill : Less Than 3 Seconds I&O Intake and Output 01/05/20 00:00 Intake Total 2021 ml Output Total 2200 ml Balance -179 ml Intake Oral 300 ml IV Total 1721 ml Output Urine Total 2200 ml # Voids 3 General: Alert, Oriented X3, Cooperative HEENT: Atraumatic, PERRLA Neck: Supple, No JVD, No Thyromegaly Lungs: Clear to Auscultation, Normal Air Movement Heart: Normal S1, Normal S2, No Murmurs, Other (irregular rhythm, S3 is present) Abdomen: Normal Bowel Sounds, Soft, No Tenderness, No Hepatosplenomegaly, No Masses Extremities: No Clubbing, No Cyanosis, No Edema, Normal Pulses, No Tenderness/Swelling Skin: No Rashes, No Breakdown, No Significant Lesion Neuro: Normal Gait, Normal Speech, Strength at 5/5 X4 Ext, Normal Tone, Sensation Intact Psych/Mental Status: Mental Status NL, Mood NL Results Lab Laboratory Tests 01/05/20 02:55 A/P-Cardiology Admission Diagnosis non-STEMI Afib with RVR VT CAD Assessment/Plan Non-STEMI, elevated troponin, patient reports episodes of chest pain/pressure over the past several weeks while mowing his lawn. Cardiac catheterization was done showing patent stents with small vessel disease, distal LAD disease nonobstructive disease. Medical therapy is recommended Afib with RVR, new onset, started on amiodarone, currently in sinus rhythm. VT- patient received multiple shocks from ICD, started on amiodarone. Continue to monitor. History of liver transplant in 2002, history of liver failure, reporting that he tested positive for hepatitis C recently. Complex management plan, discussed with Dr. Chin regarding antiarrhythmic medication. Possible referral to as an outpatient Coronary artery disease, had cardiac catheterization in April 2019 showing severe multisegment stenosis in the right coronary artery with subtotal occlusion at the midportion, complex intervention with deployment of 2 stents proximally 2.75 x 18 mm expanded to 3.05 proximally and 2.91 distally, no overla p between the stent the second stent is Ita 2.523 expanded to 2.81 with excellent results. had acute myocardial infarction on May 02, 2019, underwent deployment of resolute integrity 2.5 x 18 mm expanded to 2.65 to the proximal LAD, returned with ST elevation myocardial infarction on May 04, 2019 had occlusion of the LAD had balloon angioplasty then deployment of 2 stents resolute integrity 2.5 x 18 mm in the midportion and resolute Nael 2 x 22 in the distal LAD with good results. Cardiac catheterization was done on January 04, 2020 showed patent stents in the LAD and right coronary artery, distal LAD disease. Small vessel disease. Medical therapy is recommended Congestive heart failure, chronic compensated left ventricular systolic d ysfunction, ischemic cardiomyopathy, ejection fraction 30 percent. Status post implantation of single-chamber ICD for primary prevention using [employer] VISIA MRI [id number], done on September 07, 2019, site is healing well, no complication. Continue to monitor Hypertension, restart home blood pressure medication, continue to monitor Mild bilateral carotid stenosis, ultrasound was done in April 2019. 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 Noncompliance with medication, was admitted with acute IL after not taking his Brilinta. Currently compliant in taking his medication regularly. Continue to monitor Clinical Quality Measures DVT/VTE Risk/Contraindication: Risk Factor Score Per Nursin RFS Level Per Nursing on Admit: 4+=Very High SAHARA LONG MD Jan 05, 2020 9:11 am
--- NOTE | 2020-01-05 15:24 | NUR ---
CM/SS: Visited with pt as to plan for discharge Plan: Pt to return home, unknown about additional services at this time. Summary: Pt reports he is feeling much better. Pt reports he is not sure about what services he may need when he discharges. Pt is asked about his drug use and he reports to this worker that he does not know why people have in the record that he uses cocaine. He wants to make sure that we know that he only used cocaine in the eighties and he did not like it and he uses other drugs. Pt is reminded that drugs can be harmful to him and that they are really not good for his heart. Pt only shares with this worker he is to have an appointment in [place] for his liver and he does not have any transportation. Pt is asked for his [facility] Medicaid card - he is referred to the back of the card that says Transportation and Need a ride? He is reminded that he can call at least 72 hours prior to his appointment to set up a ride. He is walked through the process and encouraged to to use the transportation service. Pt verbalizes understanding. Pt then shares as he puts his wallet back in his personal belonging bag that he wanted to see what was in his pockets. He also reports that they had to cut off his pants when he can to the ER. This worker will follow up to see if pt had additional needs at time of discharge. He verbalizes understanding.
--- NOTE | 2020-01-05 15:52 | Cardiology Progress Note ---
Cardiology SOAP Progress Note Subjective: No cardiac complaints. Objective: I&O/Vital Signs 01/06/20 01/06/20 01/06/20 01/06/20 03:00 04:00 04:00 04:17 Temp 36.4 Pulse 66 71 Resp 23 18 B/P (MAP) 103/58 (73) 112/77 (89) Pulse Ox 99 98 100 O2 Delivery Room Air Room Air Room Air 01/06/20 01/06/20 01/06/20 01/06/20 05:00 06:00 07:05 07:26 Temp 36.6 Pulse 72 63 74 75 Resp 27 25 19 B/P (MAP) 112/67 (82) 99/52 (68) 137/49 (78) Pulse Ox 98 99 100 O2 Delivery Room Air Room Air 01/06/20 01/06/20 01/06/20 01/06/20 08:00 09:00 10:00 11:00 Pulse 69 68 68 65 Resp 23 20 27 51 B/P (MAP) 125/72 (89) 112/63 (79) 124/44 (70) Pulse Ox 99 97 100 100 O2 Delivery Room Air Room Air Room Air Room Air 01/06/20 01/06/20 11:09 12:00 Temp 36.4 Pulse 69 Resp 24 B/P (MAP) 199/174 (182) Pulse Ox 100 O2 Delivery Room Air 01/06/20 00:00 Intake Total 2720 ml Output Total 2625 ml Balance 95 ml Weight (Pounds): 240 Weight (Ounces): 0.0 Weight (Calculated Kilograms): 108.878485 Constitutional: AAO x 3 Respiratory: chest is bilaterally symmetric, lungs clear to auscultation Cardiovascular: regular rate-rhythm, S1 and S2 Gastrointestional: soft, audible bowel sounds Extremities: normal range of motion, non-tender, normal inspection, no lower extremity edema bilateral Neurologic/Psychiatric: no motor/sensory deficits, alert, normal mood/affect, oriented x 3 Skin: normal color, warm/dry Results/Procedures: Labs Laboratory Tests 01/05/20 16:04: Glucometer 177H 01/05/20 19:55: Glucometer 261H 01/06/20 00:12: Glucometer 170H 01/06/20 02:53: White Blood Count 4.5, Red Blood Count 4.10L, Hemoglobin 12.1L, Hematocrit 36L, Mean Corpuscular Volume 89, Mean Corpuscular Hemoglobin 30, Mean Corpuscular Hemoglobin Concent 33, Red Cell Distribution Width 14.7H, Platelet Count 238, Mean Platelet Volume 11.0H, Neutrophils (%) (Auto) 50, Lymphocytes (%) (Auto) 33, Monocytes (%) (Auto) 13H, Eosinophils (%) (Auto) 4, Basophils (%) (Auto) 1, Neutrophils # (Auto) 2.3, Lymphocytes # (Auto) 1.5, Monocytes # (Auto) 0.6, Eosinophils # (Auto) 0.2, Basophils # (Auto) 0.0, Sodium Level 140, Potassium Level 3.9, Chloride Level 112H, Carbon Dioxide Level 22, Anion Gap 6, Blood Urea Nitrogen 15, Creatinine 0.74, Estimat Glomerular Filtration Rate > 60, BUN/Creatinine Ratio 20, Glucose Level 198H, Calcium Level 7.7L, Phosphorus Level 2.3, Magnesium Level 2.0 01/06/20 08:43: Glucometer 368H 01/06/20 11:11: Glucometer 256H Microbiology 01/03/20 MRSA Screen - Final, Complete MRSA not isolated A/P: Assessment/Dx: Atrial fibrillation with RVR, Ischemic cardiomyopathy, ICD implantation in , Ventricular tachycardia Appropriate and inappropriate shocks. Plan: Cardiac EP consultation: Atrial fibrillation with RVR, rate control, oral anticoagulation and IV amiodarone. Ischemic cardiomyopathy, ICD implantation in , device interrogation. Ventricular tachycardia; on IV amiodarone. Coronary angiography revealed stable CAD with no PCI done. ICD shocks. Device interrogation showed first episode to be atrial fibrillation with RVR resulting in inappropriate shock. However he then had numerous VT episodes resulting in appropriate shocks. Device reprogramming done to reduce further episodes of inappropriate shocks. History of liver transplant, complicates use of amiodarone area did ischemic cardiomyopathy complicates the use of multaq. Might require transfer to a center where there is a cotton roll packer/cull grader who could advise on his care. Thank you for your consultation. Please call me if you have any questions. Josefina Chin MD, FACP, FACC, FSCAI, FHRS, CCDS Interventional Cardiology Cardiac Electrophysiology Vascular Medicine and Endovascular Interventions Christie CHIN MD Jan 05, 2020 15:52
[2020-01-06] VITALS (14 sets, daily range): BP systolic 94–199; BP diastolic 44–174
[2020-01-06] MEDS: inSUlin ASPART (NovoLOG) 1 UNIT/0.01 ML (CHARGE PER UNIT) SC SCH ×4 (00:13→13:50)
[2020-01-06 03:22] LABS: BASOPHILS % (AUTO) 1 % (0-10); EOSINOPHILS # (AUTO) 0.2 10^3/uL (0.0-0.3); EOSINOPHILS % (AUTO) 4 % (0-10); HEMATOCRIT 36 % (40-54); HEMOGLOBIN 12.1 G/DL (13.3-17.7); LYMPHOCYTES # (AUTO) 1.5 X 10^3 (1.0-4.0); LYMPHOCYTES % (AUTO) 33 % (12-44); MEAN CORPUSCULAR HEMOGLOBIN 30 PG (25-34); MEAN CORPUSCULAR HGB CONC 33 G/DL (32-36); MEAN CORPUSCULAR VOLUME 89 FL (80-99); MONOCYTES # (AUTO) 0.6 X 10^3 (0.0-1.0); MONOCYTES % (AUTO) 13 % (0-12); NEUTROPHILS # (AUTO) 2.3 X 10^3 (1.8-7.8); NEUTROPHILS % (AUTO) 50 % (42-75); PLATELET COUNT 238 10^3/uL (130-400); RED CELL DISTRIBUTION WIDTH 14.7 % (10.0-14.5); WHITE BLOOD COUNT 4.5 10^3/uL (4.3-11.0)
[2020-01-06 03:46] LABS: BUN/CREATININE RATIO 20; CALCIUM 7.7 MG/DL (8.5-10.1); CARBON DIOXIDE 22 MMOL/L (21-32); CHLORIDE 112 MMOL/L (98-107); CREATININE SERUM 0.74 MG/DL (0.60-1.30); GFR ESTIMATED > 60; GLUCOSE 198 MG/DL (70-105); PHOSPHORUS 2.3 MG/DL (2.3-4.7); POTASSIUM 3.9 MMOL/L (3.6-5.0); SODIUM 140 MMOL/L (135-145)
--- NOTE | 2020-01-06 05:08 | Pulmonary Progress Note ---
Subjective Time Seen by a Provider: 05:07 Subjective/Events-last exam Possible home today. No complications noted. Sepsis Event Evaluation Height, Weight, BMI Height: 6'0.00" Weight: 240lbs. 0.0oz. 108.466661mu; 34.27 BMI Method:Stated Exam Exam Vital Signs Date Time Temp Pulse Resp B/P (MAP) Pulse Ox O2 Delivery O2 Flow Rate FiO2 01/06/20 04:17 36.4 01/06/20 04:00 71 18 112/77 (89) 100 Room Air 01/06/20 03:00 66 23 103/58 (73) 99 Room Air 01/06/20 02:00 65 28 96/61 (73) 99 Room Air 01/06/20 01:00 66 22 94/52 (66) 98 Room Air 01/06/20 01:00 60 01/06/20 00:00 64 18 97/56 (70) 99 Room Air 01/06/20 00:00 98 Room Air 01/05/20 23:30 36.1 01/05/20 23:00 66 18 103/59 (74) 98 Room Air 01/05/20 22:00 73 19 89/48 (62) 98 Room Air 01/05/20 21:00 70 18 118/72 (87) 97 Room Air 01/05/20 20:31 36.5 01/05/20 20:00 98 Room Air 01/05/20 20:00 76 17 121/83 (96) 97 Room Air 01/05/20 19:00 74 17 113/71 (85) 97 Room Air 01/05/20 19:00 73 01/05/20 18:00 80 14 128/89 (102) Room Air 01/05/20 17:00 68 16 119/93 (102) 98 Room Air 01/05/20 16:22 97 Room Air 01/05/20 16:00 71 18 101/64 (76) 100 Room Air 01/05/20 15:45 36.6 01/05/20 15:00 72 18 106/61 (76) 100 Room Air 01/05/20 14:00 77 101/62 (75) 99 Room Air 01/05/20 13:00 73 11 110/63 (79) 99 Room Air 01/05/20 12:29 71 01/05/20 12:00 75 21 106/76 (86) 99 Room Air 01/05/20 11:46 99 Room Air 01/05/20 11:22 35.9 01/05/20 11:00 67 12 108/57 (74) 100 Room Air 01/05/20 10:00 72 17 96/62 (73) 100 Room Air 01/05/20 09:00 74 16 99/57 (71) 97 Room Air 01/05/20 08:00 69 37 102/76 (85) 100 Room Air 01/05/20 08:00 98 Room Air 01/05/20 07:21 36.1 01/05/20 07:00 67 20 84/56 (65) 97 Room Air 01/05/20 07:00 60 01/05/20 06:00 75 14 100/57 (71) 99 Room Air I & O 01/06/20 07:00 Intake Total 3400 ml Output Total 3250 ml Balance 150 ml Height & Weight Height: 6'0.00" Weight: 240lbs. 0.0oz. 108.664683kv; 34.27 BMI Method:Stated General Appearance: No Apparent Distress, WD/WN, Chronically ill HEENT: PERRL/EOMI, TMs Normal, Normal ENT Inspection, Pharynx Normal, Moist Mucous Membranes Neck: Full Range of Motion, Normal Inspection, Non Tender Respiratory: Chest Non Tender, Lungs Clear, Normal Breath Sounds, No Accessory Muscle Use, No Respiratory Distress Cardiovascular: Regular Rate, Rhythm, No Edema, No Gallop, No JVD, No Murmur, Normal Peripheral Pulses Capillary Refill: Less Than 3 Seconds Extremity: Normal Capillary Refill, Normal Inspection, Normal Range of Motion, Non Tender, No Calf Tenderness, No Pedal Edema Neurologic/Psychiatric: Alert, Oriented x3, No Motor/Sensory Deficits, Normal Mood/Affect Skin: Normal Color, Warm/Dry Lymphatic: No Adenopathy Results Lab Laboratory Tests 01/05/20 02:55 01/06/20 02:53 Assessment/Plan Assessment/Plan Afib/Flutter RVR -Cardiology is following -S/p 11 shocks from defibrillator Methamphetamine use -Drug screen is positive -education Alcohol use -Education Hx of liver transplant CHF hx CAD EDWINA DUBON DO Jan 06, 2020 05:08
[2020-01-06] MEDS: MAGNESIUM 1 GM/100 ML IVPB 100 ML IV SCH (05:18)
[2020-01-06] MEDS: POTASSIUM CL 10MEQ/50ML IVPB 50 ML IV SCH (05:18)
[2020-01-06] MEDS: KCL 20 MEQ TAB (K-DUR) PO SCH (05:19)
--- NOTE | 2020-01-06 05:51 | Diagnostic Imaging Report ---
EXAMINATION: Portable erect AP chest at 3:32 AM INDICATION: Atrial fibrillation The heart is stable in size when compared to the prior exam of 01/05/2020. The left-sided defibrillator device seen on the previous exam is also again evident and no different. The lungs are generally clear. There is no evidence for overt failure or pneumonia and there is no significant pleural effusion identified. The mediastinum is not widened. The osseous structures are intact. IMPRESSION: Stable chest. There has been no significant change since the prior exam. Dictated by: Dictated on workstation # [id number]
[2020-01-06] MEDS ORDERED: meTOprolol TARTRATE 50 MG (LOPRESSOR) TAB PO SCH (09:00)
[2020-01-06] MEDS ORDERED: SILVER SULFADIAZINE 400 GM CREAM TOP SCH (09:00)
[2020-01-06] MEDS: TICAGRELOR 90 MG TABLET (BRILINTA) PO SCH (09:42)
[2020-01-06] MEDS: AMIODARONE 200 MG (CORDARONE) TAB PO SCH (09:42)
[2020-01-06] MEDS: LOSARTAN 25 MG (COZAAR) TAB PO SCH (09:42)
[2020-01-06] MEDS: ASPIRIN E.C. 81 MG (ECOTRIN) TAB PO SCH (09:42)
[2020-01-06] MEDS ORDERED: METO50TA15 PO (10:19)
[2020-01-06] MEDS ORDERED: AMIO200T4 PO ×3 (10:19→15:05)
--- NOTE | 2020-01-06 10:30 | Discharge Summary ---
Diagnosis/Chief Complaint Date of Admission Jan 03, 2020 at 22:13 Date of Discharge January 06, 2020 Discharge Date: Jan 06, 2020 Discharge Time: 13:00 Admission Diagnosis Assessment: AF w/RVR Elevated troponin Former smoker ETOH user Liver transplant status Plan: Cath Cardiology appreciated Primary Care Andreas Quiñonez MD Discharge Diagnosis Non-STEMI Afib with RVR Ventricular tachycardia status post multiple shocks from ICD Coronary artery disease, had cardiac catheterization in April 2019 showing severe multisegment stenosis in the right coronary artery with subtotal occlusi on at the midportion, complex intervention with deployment of 2 stents proximally 2.75 x 18 mm expanded to 3.05 proximally and 2.91 distally, no overlap between the stent the second stent is Ita 2.523 expanded to 2.81 with excellent results. had acute myocardial infarction on May 02, 2019, underwent deployment of resolute integrity 2.5 x 18 mm expanded to 2.65 to the proximal LAD, returned with ST elevation myocardial infarction on May 04, 2019 had occlusion of the LAD had balloon angioplasty then deployment of 2 stents resolute integrity 2.5 x 18 mm in the midportion and resolute [place] 2 x 22 in the distal LAD with good results. Congestive heart failure, chronic compensated left ventricular systolic dysfunction, ischemic cardiomyopathy, ejection fraction 30 percent. Status post implantation of single-chamber ICD for primary prevention using Medtronic VISIA MRI [id number], done in September 2019 Hypertension, restart home blood pressure medication, continue to monitor Mild bilateral carotid stenosis, Hyperlipidemia History of liver failure with transplant in 2002 History of amputation of the toe secondary to osteomyelitis methamphetamine use tobaccoism. Noncompliance with medication, was admitted with acute HI after not taking his Brilinta. Type II diabetes on insulin (1) Atrial fibrillation with RVR Status: Acute Discharge Summary Procedures/Consulations Heart catheter Discharge Physical Exam Allergies: Coded Allergies: No Known Drug Allergies (Unverified , 12/14/17) Vitals & I&Os Vital Signs Date Time Temp Pulse Resp B/P (MAP) Pulse Ox O2 Delivery O2 Flow Rate FiO2 01/06/20 08:00 69 23 99 Room Air 01/06/20 07:05 36.6 General Appearance: No Apparent Distress, WD/WN, Chronically ill HEENT: Other Respiratory: Lungs Clear, Normal Breath Sounds, No Accessory Muscle Use, No Respiratory Distress Cardiovascular: Regular Rate, Rhythm, No Gallop, Systolic Murmur Gastrointestinal: Normal Bowel Sounds, Non Tender, Soft Extremity: Normal Range of Motion, Non Tender, No Calf Tenderness Skin: Pallor Neurologic/Psychiatric: Alert, Oriented x3, No Motor/Sensory Deficits, Normal Mood/Affect, 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 Troponin was positive consistent with non-ST segment elevation HI. The patient was taken to heart catheter where no intervention was done. He was placed on amiodarone drip and has been in sinus rhythm since. Patient had positive alcohol and methamphetamine in his admission drug screen. Blood sugars of been labile and had been placed on sliding scale insulin. At the time of discharge the patient is stable. He is discharged on amiodarone 400 twice a day. This case will be discussed with [facility] in regards to requiring of increased dose of amiodarone. Labs (last 24 hrs) Laboratory Tests 01/05/20 11:38: Glucometer 142H 01/05/20 16:04: Glucometer 177H 01/05/20 19:55: Glucometer 261H 01/06/20 00:12: Glucometer 170H 01/06/20 02:53: White Blood Count 4.5, Red Blood Count 4.10L, Hemoglobin 12.1L, Hematocrit 36L, Mean Corpuscular Volume 89, Mean Corpuscular Hemoglobin 30, Mean Corpuscular Hemoglobin Concent 33, Red Cell Distribution Width 14.7H, Platelet Count 238, Mean Platelet Volume 11.0H, Neutrophils (%) (Auto) 50, Lymphocytes (%) (Auto) 33, Monocytes (%) (Auto) 13H, Eosinophils (%) (Auto) 4, Basophils (%) (Auto) 1, Neutrophils # (Auto) 2.3, Lymphocytes # (Auto) 1.5, Monocytes # (Auto) 0.6, Eosinophils # (Auto) 0.2, Basophils # (Auto) 0.0, Sodium Level 140, Potassium Level 3.9, Chloride Level 112H, Carbon Dioxide Level 22, Anion Gap 6, Blood Urea Nitrogen 15, Creatinine 0.74, Estimat Glomerular Filtration Rate > 60, BUN/Creatinine Ratio 20, Glucose Level 198H, Calcium Level 7.7L, Phosphorus Level 2.3, Magnesium Level 2.0 01/06/20 08:43: Glucometer 368 Microbiology 01/03/20 MRSA Screen - Final, Complete MRSA not isolated Patient resulted labs reviewed. Pending Labs Laboratory Tests 01/06/20 02:53: White Blood Count 4.5, Red Blood Count 4.10, Hemoglobin 12.1, Hematocrit 36, Mean Corpuscular Volume 89, Mean Corpuscular Hemoglobin 30, Mean Corpuscular Hemoglobin Concent 33, Red Cell Distribution Width 14.7, Platelet Count 238, Mean Platelet Volume 11.0, Neutrophils (%) (Auto) 50, Lymphocytes (%) (Auto) 33, Monocytes (%) (Auto) 13, Eosinophils (%) (Auto) 4, Basophils (%) (Auto) 1, Neutrophils # (Auto) 2.3, Lymphocytes # (Auto) 1.5, Monocytes # (Auto) 0.6, Eosinophils # (Auto) 0.2, Basophils # (Auto) 0.0, Sodium Level 140, Potassium Level 3.9, Chloride Level 112, Carbon Dioxide Level 22, Anion Gap 6, Blood Urea Nitrogen 15, Creatinine 0.74, Estimat Glomerular Filtration Rate > 60, BUN/Creatinine Ratio 20, Glucose Level 198, Calcium Level 7.7, Phosphorus Level 2.3, Magnesium Level 2.0 01/06/20 08:43: Glucometer 368 Discussion & Recommendations Discharge Planning: >30 minutes discharge planning Discharge Home Medications: Active Scripts Active Amiodarone HCl 200 Mg Tablet 400 Mg PO BID 14 Days take 1 twice a day for 14 days then 1 a day Metoprolol Tartrate 50 Mg Tablet 50 Mg PO BID 30 Days Reported Novolog Flexpen (Insulin Aspart) 300 Units/3 Ml Solution 15 Units SQ TIDAC PRN LAST FILLED 06-20-2019 #1 VIAL/30 DAY SUPPLY Levemir Flextouch (Insulin Detemir) 100 Unit/1 Ml Insuln.pen 20 Unit SQ HS PRN LAST FILLED 05-13-2019 #1 VIAL Brilinta (Ticagrelor) 90 Mg Tablet 90 Mg PO BID LAST FILLED 11-11-2019 #60 Metformin HCl 1,000 Mg Tablet 1,000 Mg PO BID Atorvastatin Calcium 10 Mg Tablet 10 Mg PO DAILY Fish Oil 1,000 mg Softgel ([place]-3/Dha/Epa/Fish Oil) 1,000 Mg Capsule 1,000 Mg PO BID Aspirin EC (Aspirin) 81 Mg Tablet. 81 Mg PO DAILY Losartan Potassium 25 Mg Tablet 25 Mg PO DAILY Condition at discharge Stable Instructions to patient/family Please see electronic discharge instructions given to patient. Clinical Quality Measures DVT/VTE Risk/Contraindication: Risk Factor Score Per Nursin RFS Level Per Nursing on Admit: 4+=Very High Copy Copies To 1: ANDREAS QUIÑONEZ MD, KATHLEEN M MD Jan 06, 2020 10:30
--- NOTE | 2020-01-06 12:13 | Cardiology Progress Note ---
Subjective Date Seen by Provider: Jan 06, 2020 Time Seen by Provider: 12:11 Subjective/Events-last exam Patient is in bed, feeling better, no new complaint, arrangement for follow-up with [facility] was made Review of Systems General: No Chills, No Night Sweats, No Fatigue, No Malaise, No Appetite, No Other HEENT: No Head Aches, No Visual Changes, No Eye Pain, No Ear Pain, No Dysphasia, No Sinus Congestion, No Post Nasal Drip, No Sore Throat, No Other Pulmonary: No Dyspnea, No Cough, No Pleuritic Chest Pain, No Other Cardiovascular: No: Chest Pain, Palpitations, Orthopnea, Paroxysmal Noc. Dyspnea, Edema, Lt Headedness, Other Objective-Cardiology Exam Last Set of Vital Signs Vital Signs 01/06/20 01/06/20 01/06/20 07:05 08:00 11:09 Temp 36.4 Pulse 69 Resp 23 B/P (MAP) 137/49 (78) Pulse Ox 99 O2 Delivery Room Air Capillary Refill : Less Than 3 Seconds I&O Intake and Output 01/06/20 00:00 Intake Total 4710 ml Output Total 3600 ml Balance 1110 ml Intake Oral 3150 ml IV Total 1560 ml Output Urine Total 3600 ml # Voids 2 # Bowel Movements 1 General: Alert, Oriented X3, Cooperative HEENT: Atraumatic, PERRLA Neck: Supple, No JVD, No Thyromegaly Lungs: Clear to Auscultation, Normal Air Movement Heart: Normal S1, Normal S2, No Murmurs, Other (irregular rhythm, S3 is present) Abdomen: Normal Bowel Sounds, Soft, No Tenderness, No Hepatosplenomegaly, No Masses Extremities: No Clubbing, No Cyanosis, No Edema, Normal Pulses, No Tenderness/Swelling Skin: No Rashes, No Breakdown, No Significant Lesion Neuro: Normal Gait, Normal Speech, Strength at 5/5 X4 Ext, Normal Tone, Sensation Intact Psych/Mental Status: Mental Status NL, Mood NL Results Lab Laboratory Tests 01/06/20 02:53 A/P-Cardiology Admission Diagnosis non-STEMI Afib with RVR VT CAD Assessment/Plan Non-STEMI, elevated troponin, patient reports episodes of chest pain/pressure over the past several weeks while mowing his lawn. Cardiac catheterization was done showing patent stents with small vessel disease, distal LAD disease nonobstructive disease. Medical therapy is recommended Afib with RVR, new onset, started on amiodarone, currently in sinus rhythm. VT- patient received multiple shocks from ICD, started on amiodarone, will discharge home on amiodarone, arrangement for EP evaluation done through Dr. Chin with Dr. Maradiaga History of liver transplant in 2002, history of liver failure, reporting that he tested positive for hepatitis C recently. Complex management plan, discussed with Dr. Chin regarding antiarrhythmic medication. Possible referral to as an outpatient Coronary artery disease, had cardiac catheterization in April 2019 showing severe multisegment stenosis in the right coronary artery with subtotal occ lusion at the midportion, complex intervention with deployment of 2 stents proximally 2.75 x 18 mm expanded to 3.05 proximally and 2.91 distally, no overlap between the stent the second stent is Ita 2.523 expanded to 2.81 with excellent results. had acute myocardial infarction on May 02, 2019, underwent deployment of resolute integrity 2.5 x 18 mm expanded to 2.65 to the proximal LAD, returned with ST elevation myocardial infarction on May 04, 2019 had occlusion of the LAD had balloon angioplasty then deployment of 2 stents resolute integrity 2.5 x 18 mm in the midportion and resolute [place] 2 x 22 in the distal LAD with good results. Cardiac catheterization was done on January 04, 2020 showed patent stents in the LAD and right coronary artery, distal LAD disease. Small vessel disease. Medical therapy is recommended Congestive heart failure, chronic compensated left ventricular systolic dysfunction, ischemic cardiomyopathy, ejection fraction 30 percent. Status post implantation of single-chamber ICD for primary prevention using Medtronic VISIA MRI [id number], done on September 07, 2019, site is healing well, no complication. Continue to monitor Hypertension, restart home blood pressure medication, continue to monitor Mild bilateral carotid stenosis, ultrasound was done in April 2019. 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 Noncompliance with medication, was admitted with acute IL after not taking his Brilinta. Currently compliant in taking his medication regularly. Continue to monitor Clinical Quality Measures DVT/VTE Risk/Contraindication: Risk Factor Score Per Nursin RFS Level Per Nursing on Admit: 4+=Very High SAHARA LONG MD Jan 06, 2020 12:13
--- NOTE | 2020-01-06 14:15 | Cardiology Progress Note ---
Cardiology SOAP Progress Note Subjective: No cardiac complaints. No further shocks. Objective: I&O/Vital Signs 01/06/20 01/06/20 01/06/20 01/06/20 03:00 04:00 04:00 04:17 Temp 36.4 Pulse 66 71 Resp 23 18 B/P (MAP) 103/58 (73) 112/77 (89) Pulse Ox 99 98 100 O2 Delivery Room Air Room Air Room Air 01/06/20 01/06/20 01/06/20 01/06/20 05:00 06:00 07:05 07:26 Temp 36.6 Pulse 72 63 74 75 Resp 27 25 19 B/P (MAP) 112/67 (82) 99/52 (68) 137/49 (78) Pulse Ox 98 99 100 O2 Delivery Room Air Room Air 01/06/20 01/06/20 01/06/20 01/06/20 08:00 09:00 10:00 11:00 Pulse 69 68 68 65 Resp 23 20 27 51 B/P (MAP) 125/72 (89) 112/63 (79) 124/44 (70) Pulse Ox 99 97 100 100 O2 Delivery Room Air Room Air Room Air Room Air 01/06/20 01/06/20 11:09 12:00 Temp 36.4 Pulse 69 Resp 24 B/P (MAP) 199/174 (182) Pulse Ox 100 O2 Delivery Room Air 01/06/20 00:00 Intake Total 2720 ml Output Total 2625 ml Balance 95 ml Weight (Pounds): 240 Weight (Ounces): 0.0 Weight (Calculated Kilograms): 108.876065 Constitutional: AAO x 3 Respiratory: chest is bilaterally symmetric, lungs clear to auscultation Cardiovascular: regular rate-rhythm, S1 and S2 Gastrointestional: soft, audible bowel sounds Extremities: normal range of motion, non-tender, normal inspection, no lower extremity edema bilateral Neurologic/Psychiatric: no motor/sensory deficits, alert, normal mood/affect, oriented x 3 Skin: normal color, warm/dry Results/Procedures: Labs Laboratory Tests 01/05/20 16:04: Glucometer 177H 01/05/20 19:55: Glucometer 261H 01/06/20 00:12: Glucometer 170H 01/06/20 02:53: White Blood Count 4.5, Red Blood Count 4.10L, Hemoglobin 12.1L, Hematocrit 36L, Mean Corpuscular Volume 89, Mean Corpuscular Hemoglobin 30, Mean Corpuscular Hemoglobin Concent 33, Red Cell Distribution Width 14.7H, Platelet Count 238, Mean Platelet Volume 11.0H, Neutrophils (%) (Auto) 50, Lymphocytes (%) (Auto) 33, Monocytes (%) (Auto) 13H, Eosinophils (%) (Auto) 4, Basophils (%) (Auto) 1, Neutrophils # (Auto) 2.3, Lymphocytes # (Auto) 1.5, Monocytes # (Auto) 0.6, Eosinophils # (Auto) 0.2, Basophils # (Auto) 0.0, Sodium Level 140, Potassium Level 3.9, Chloride Level 112H, Carbon Dioxide Level 22, Anion Gap 6, Blood Urea Nitrogen 15, Creatinine 0.74, Estimat Glomerular Filtration Rate > 60, BUN/Creatinine Ratio 20, Glucose Level 198H, Calcium Level 7.7L, Phosphorus Level 2.3, Magnesium Level 2.0 01/06/20 08:43: Glucometer 368H 01/06/20 11:11: Glucometer 256H Microbiology 01/03/20 MRSA Screen - Final, Complete MRSA not isolated A/P: Assessment/Dx: Atrial fibrillation with RVR, Ischemic cardiomyopathy, ICD implantation in , Ventricular tachycardia Appropriate and inappropriate shocks. Plan: Cardiac EP consultation: Atrial fibrillation with RVR, continue oral anticoagulation. He was on metoprolol 25 mg daily. I have increased metoprolol to 50 mg twice a day. Discontinue IV amiodarone and start amiodarone 200 mg twice a day. Ischemic cardiomyopathy, ICD implantation in , device interrogation. Ventricular tachycardia; on IV amiodarone. Coronary angiography revealed stable CAD with no PCI done. Could be a candidate for VT ablation in the future. ICD shocks. Device interrogation showed first episode to be atrial fibrillation with RVR resulting in inappropriate shock. However he then had numerous VT episodes resulting in appropriate shocks. Device reprogramming done to reduce further episodes of inappropriate shocks. History of liver transplant, complicates use of amiodarone area did ischemic cardiomyopathy complicates the use of multaq. Might require transfer to a center where there is a economic analysis director/extrusion die repairer who could advise on his care. I have discussed with Dr. Martinez at [facility] in [place] and requested his outpatient consultation. Thank you for your consultation. Please call me if you have any questions. Josefina Cooper MD, FACP, FACC, FSCAI, FHRS, CCDS Interventional Cardiology Cardiac Electrophysiology Vascular Medicine and Endovascular Interventions Christie COOPER MD Jan 06, 2020 14:15
--- NOTE | 2020-01-06 14:26 | NUR ---
"RD ASSESSMENT PMHx: polysubstance use/abuse (ETOH; methamphetamine; cocaine; THC); CAD; HTN; hepatitis; cirrhosis; amputation; DM PT INTERACTION: Pt was awake and pleasant during nutrition assessment. Pt states current appetite is good. Note avg PO intake 100% x1d, per chart review. Pt states following a regular diet at home, and has no issues with chewing/swallowing food. Pt states no recent issues with nausea, vomiting, constipation, or diarrhea. Note last BM was 6/4, and pt not currently on bowel regimen per chart review. Pt states unsure of recent wt changes. Note recent 7# wt loss x4mon, per chart review. Pt states he doesn't control his DM like he should. Note unable to determine recent HbA1c, per chart review. ABNORMAL NUTRITION-RELATED LAB VALUES LOW: Ca 7.7 HIGH: Cl 112; glu 198 Est. kcal needs: 3519-8468 kcal | 15-18 kcal/kg Est. Pro needs: 77-97 g Pro | 0.8-1.0 g Pro/kg PES STATEMENT: Given current PO intake, no nutrition diagnosis at this time (NO-1.1) INTERVENTION: Continue with current diet order of CHO 60g/m 1snack diet. Discussed and provided handout on CHO counting. Discussed CHO amounts in common foods within pt's diet. Answered questions regarding portion control. Pt verbalized understanding and appeared confident to follow suggestions up discharge. Will continue to follow and reassess as pt needs, intake, and status change. MONITOR/EVALUATE: PO Intake; Plan of Care; Hydration Status; Weight Status; Lab Values Fernando Us, MS, RD, LD"
== END 2020-01-06 15:43 | disposition home or self-care (01) | DRG 281 ==
LOC: EDUNIT# 21:03 → ER 21:04 → ICU 22:13
PROVIDERS: ADMIT Internal Medicine; ATTEND Internal Medicine
PROC: 4A023N7 Measurement of Cardiac Sampling and Pressure, Left Heart, Percutaneous Approach (ICD-10-PCS; principal; 2020-01-04)
PROC: B2111ZZ Fluoroscopy of Multiple Coronary Arteries using Low Osmolar Contrast (ICD-10-PCS; 2020-01-04)
PROC: B2151ZZ Fluoroscopy of Left Heart using Low Osmolar Contrast (ICD-10-PCS; 2020-01-04)
DX: I21.4 Non-ST elevation (NSTEMI) myocardial infarction (principal); I47.2 Ventricular tachycardia; I48.91 Unspecified atrial fibrillation; I48.92 Unspecified atrial flutter; I11.0 Hypertensive heart disease with heart failure; I50.22 Chronic systolic (congestive) heart failure; Z94.4 Liver transplant status; I25.10 Atherosclerotic heart disease of native coronary artery without angina pectoris; I25.5 Ischemic cardiomyopathy; I25.2 Old myocardial infarction; E78.5 Hyperlipidemia, unspecified; I65.23 Occlusion and stenosis of bilateral carotid arteries; E11.40 Type 2 diabetes mellitus with diabetic neuropathy, unspecified; E11.65 Type 2 diabetes mellitus with hyperglycemia; N42.9 Disorder of prostate, unspecified; M19.91 Primary osteoarthritis, unspecified site; M54.9 Dorsalgia, unspecified; F32.9 Major depressive disorder, single episode, unspecified; E11.621 Type 2 diabetes mellitus with foot ulcer; L97.529 Non-pressure chronic ulcer of other part of left foot with unspecified severity; Z95.810 Presence of automatic (implantable) cardiac defibrillator; Z95.5 Presence of coronary angioplasty implant and graft; Z91.14 Patient's other noncompliance with medication regimen; Z79.02 Long term (current) use of antithrombotics/antiplatelets; Z87.891 Personal history of nicotine dependence; Z86.19 Personal history of other infectious and parasitic diseases; Z87.19 Personal history of other diseases of the digestive system; Z91.19 Patient's noncompliance with other medical treatment and regimen; Z89.421 Acquired absence of other right toe(s); Z89.422 Acquired absence of other left toe(s)
CPT/HCPCS: 36415; 71045; 73630; 80048; 80053; 80061; 80306; 80320; 82962; 83735; 83874; 83880; 84100; 84484; 85025; 85610; 85730; 87081; 93005; 93041; 93458; 96374; 96375

== ENCOUNTER → 2020-09-25 | Outpatient (CLI) | payer MEDICARE, MEDICAID ==
[~2020-09-25] MED LIST changes: +AMIO200T6 PO; -AMIODARONE (OMNICELL DRIP KIT) 150 MG/3 ML IV ONE; -AMIODARONE 450 MG/9 ML (CORDARONE) VIAL IV ONE; +ASPI-1238 PO; -ASPI-983 PO; -CALC600T12 PO; -CATHETER FLUSH 10 ML SYR IV ONE; +CATHETER FLUSH 10 ML SYR IV PRN; +CLC600T PO; -D5W IV SOLUTION (EXCEL) 250 ML IV ONE; +HOLD METFORMIN - RECEIVED CONTRAST 20 ML VIAL IV SCH; +IOHEXOL 350 MG/ML 100 ML (OMNIPAQUE 350) VIAL IV ONE; -LISI-552 PO; +LISI20TA26 PO; +METO50TA15 PO; +NS 100 ML (IVPB) BAG IV ONE; -OXYC-471 PO; +OXYC1TAB11 PO; -URSO250T11 PO; +URSO250T12 PO
[2020-09-25 12:39] LABS: BUN/CREATININE RATIO 11; CREATININE SERUM 0.93 MG/DL (0.60-1.30); GFR ESTIMATED > 60
--- NOTE | 2020-09-25 13:53 | Diagnostic Imaging Report ---
PROCEDURE: CT chest with contrast only. TECHNIQUE: Multiple contiguous axial images were obtained through the chest after administration of intravenous contrast. Auto Exposure Controls were utilized during the CT exam to meet ALARA standards for radiation dose reduction. INDICATION: Interstitial lung disease. The previous CT chest exam of 10/10/2019 failed to show any sign of an acute abnormality but did reveal emphysematous changes involving both lungs as well as chronic interstitial lung disease. In the interval since the prior study a small patchy alveolar/interstitial infiltrate has developed along the periphery of the right lung base (image [id number] of 168). This finding could be chronic in nature but the possibility that there is an element of mild acute pneumonia/atelectasis should also be considered. There is no acute cardiopulmonary abnormality noted otherwise. The emphysematous changes involving both lungs are again evident and not significantly changed. There is also again evidence of chronic interstitial lung disease although the interstitial markings are not quite as striking as on the prior exam. The heart is borderline enlarged but stable in size when compared to the prior exam. The coronary artery calcifications and coronary artery stents seen previously are again evident. The aorta is not abnormally dilated and there is no sign of a dissection. There is no defect within the pulmonary arteries to indicate a pulmonary embolus. The left-sided defibrillator device noted previously seems unchanged in position. As on the prior exam there are a few small mediastinal nodes. These are not pathologically enlarged. A few small nodes are also seen in the right hilum. The thyroid gland was obscured by streak artifact and difficult to assess. The sections through the upper abdomen failed to show any sign of an acute abnormality. The bone windows are unremarkable for a fracture or for a destructive lesion. 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 The aneurysm now measures 2.0 x 2.5 cm. IMPRESSION: 1. The small patchy alveolar/interstitial infiltrate along the periphery of the right lower lobe may be chronic in nature. The possibility that there is an element of mild acute pneumonia should also be considered. Clinical follow-up is recommended. 2. There is no acute cardiopulmonary abnormality noted otherwise. 3. The emphysematous changes seen previously are again evident and no different. The chronic interstitial markings noted on the prior study however are not quite as striking on this exam. 4. There is cardiomegaly and coronary artery disease. 5. 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 Dictated by: Dictated on workstation # [id number]
== END ==
LOC: SLEEP 11:52
PROVIDERS: ATTEND Nurse Practitioner Family
DX: G47.30 Sleep apnea, unspecified (principal); G47.50 Parasomnia, unspecified; G47.10 Hypersomnia, unspecified
CPT/HCPCS: 71260; 82565; 84520; G0399; 36415

== ENCOUNTER → 2020-09-25 | Outpatient (CLI) | payer MEDICARE, MEDICAID ==
[~2020-09-25] MED LIST changes: -CATHETER FLUSH 10 ML SYR IV PRN; -HOLD METFORMIN - RECEIVED CONTRAST 20 ML VIAL IV SCH; -IOHEXOL 350 MG/ML 100 ML (OMNIPAQUE 350) VIAL IV ONE; -NS 100 ML (IVPB) BAG IV ONE
--- NOTE | 2020-10-01 12:02 | Diagnostic Imaging Report ---
PROCEDURE: CT chest with contrast only. TECHNIQUE: Multiple contiguous axial images were obtained through the chest after administration of intravenous contrast. Auto Exposure Controls were utilized during the CT exam to meet ALARA standards for radiation dose reduction. INDICATION: Interstitial lung disease. The previous CT chest exam of 10/10/2019 failed to show any sign of an acute abnormality but did reveal emphysematous changes involving both lungs as well as chronic interstitial lung disease. In the interval since the prior study a small patchy alveolar/interstitial infiltrate has developed along the periphery of the right lung base (image 94-99 of 168). This finding could be chronic in nature but the possibility that there is an element of mild acute pneumonia/atelectasis should also be considered. There is no acute cardiopulmonary abnormality noted otherwise. The emphysematous changes involving both lungs are again evident and not significantly changed. There is also again evidence of chronic interstitial lung disease although the interstitial markings are not quite as striking as on the prior exam. The heart is borderline enlarged but stable in size when compared to the prior exam. The coronary artery calcifications and coronary artery stents seen previously are again evident. The aorta is not abnormally dilated and there is no sign of a dissection. There is no defect within the pulmonary arteries to indicate a pulmonary embolus. The left-sided defibrillator device noted previously seems unchanged in position. As on the prior exam there are a few small mediastinal nodes. These are not pathologically enlarged. A few small nodes are also seen in the right hilum. The thyroid gland was obscured by streak artifact and difficult to assess. The sections through the upper abdomen failed to show any sign of an acute abnormality. The bone windows are unremarkable for a fracture or for a destructive lesion. 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 The aneurysm now measures 2.0 x 2.5 cm. IMPRESSION: 1. The small patchy alveolar/interstitial infiltrate along the periphery of the right lower lobe may be chronic in nature. The possibility that there is an element of mild acute pneumonia should also be considered. Clinical follow-up is recommended. 2. There is no acute cardiopulmonary abnormality noted otherwise. 3. The emphysematous changes seen previously are again evident and no different. The chronic interstitial markings noted on the prior study however are not quite as striking on this exam. 4. There is cardiomegaly and coronary artery disease. 5. 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 Dictated by: Dictated on workstation # [id number]
== END ==
LOC: SLEEP 13:00
PROVIDERS: ATTEND Nurse Practitioner Family
DX: J43.9 Emphysema, unspecified (principal); J84.9 Interstitial pulmonary disease, unspecified; I51.7 Cardiomegaly; I25.10 Atherosclerotic heart disease of native coronary artery without angina pectoris; I72.8 Aneurysm of other specified arteries
CPT/HCPCS: 71260

== ENCOUNTER 2021-07-31 12:51 | Inpatient (IN) | payer MEDICARE, MEDICAID ==
[~2021-07-31] VITALS: Ht 182 cm; Wt 91.0 kg
[~2021-07-31 12:51] MED LIST changes: -AMIO200T6 PO; +AMIO200T65 PO; +CALC600T91 PO; -CLC600T PO
[2021-07-31] MEDS: NS IV 500 ML 500 ML IV SCH ×3 (13:15→18:26)
--- NOTE | 2021-07-31 13:28 | ED General ---
General Chief Complaint: Glucose Problems Stated Complaint: HYPOTTENSTION,ELEVATED BLOOD SUGAR Source of Information: Patient, EMS Exam Limitations: No Limitations History of Present Illness Date Seen by Provider: Jul 31, 2021 Time Seen by Provider: 13:05 Initial Comments Patient is a 70-year-old male who presents to the emergency department from an [facility] clinic with a chief complaint of hypotension and elevated blood sugar. Patient on arrival is awake, alert and oriented. He tells me that he presented to the clinic today for routine follow-up to "take care of my hepatitis C". While there he became lightheaded and dizzy and was noted to get quite hypotensive with blood pressure down around 70 systolic. He was laid on the floor and his legs were elevated and his blood pressure improved. A blood sugar was taken that was "too high to read" on their machine. Patient adamantly denies any recent illnesses, no runny nose, congestion or sore throat. He is not short of breath or having a cough. He is Covid vaccinated less than 6 months ago. He has not had a booster. He denies chest pain or pressure, is not short of breath. No abdominal pain nausea, vomiting, diarrhea. No urinary complaints. No swelling in his legs. He states that he does occasionally forget to take his routine scheduled insulin. He has not had any today. He tells me that he has a history of 4 stents as well as a defibrillator and his testing consultant is Dr. Rodriguez but it has been "a while" since he saw him. He did have a mechanical trip and fall about a week ago. His dog tripped him up. States he did not hit his head or have a loss of consciousness at that time. States he was a little bit "scraped up". He does live alone but is considering changing that soon. History of liver transplant in 2002, follows at . Is not on chronic immunosuppressive therapy. EMS did report as they were getting him up and onto the cot he indicated to them that he felt like he might pass out and very briefly for a couple of seconds became unresponsive but woke up once laid in the cot and resumed to normal mentation All other review of systems reviewed and negative except as stated Timing/Duration: 1 Hour Severity: Severe Allergies and Home Medications Allergies Coded Allergies: No Known Drug Allergies (Unverified , 12/14/17) Patient Home Medication List Home Medication List Reviewed: Yes Amiodarone HCl (Amiodarone HCl) 200 Mg Tablet, 200 MG PO BID Prescribed by: OTTO MULLIGAN on 01/06/20 1505 Aspirin (Aspirin EC) 81 Mg Tablet.dr, 81 MG PO DAILY, (Reported) Entered as Reported by: AIDE FARLEY on 09/07/19 1209 Atorvastatin Calcium (Atorvastatin Calcium) 10 Mg Tablet, 10 MG PO DAILY, (Reported) Entered as Reported by: AIDE FARLEY on 09/07/19 1211 Insulin Aspart (Novolog Flexpen) 300 Units/3 Ml Solution, 15 UNITS SQ TIDAC PRN for HYPERGLYCEMIA, (Reported) Entered as Reported by: AIDE FARLEY on 09/07/19 1213 Insulin Detemir (Levemir Flextouch) 100 Unit/1 Ml Insuln.pen, 20 UNIT SQ HS PRN for HYPERGLYCEMIA, (Reported) Entered as Reported by: AIDE FARLEY on 09/07/19 1213 Losartan Potassium (Losartan Potassium) 25 Mg Tablet, 25 MG PO DAILY, (Reported) Entered as Reported by: AIDE FARLEY on 05/06/19 1154 Metformin HCl (Metformin HCl) 1,000 Mg Tablet, 1,000 MG PO BID, (Reported) Entered as Reported by: AIDE FARLEY on 09/07/19 1211 Metoprolol Tartrate (Metoprolol Tartrate) 50 Mg Tablet, 50 MG PO BID Prescribed by: SHYANNE JANSEN on 01/06/20 1019 [place]-3/Dha/Epa/Fish Oil (Fish Oil 1,000 mg Softgel) 1,000 Mg Capsule, 1,000 MG PO BID, (Reported) Entered as Reported by: AIDE FARLEY on 09/07/19 1209 Ticagrelor (Brilinta) 90 Mg Tablet, 90 MG PO BID, (Reported) Entered as Reported by: AIDE FARLEY on 09/07/19 1212 Review of Systems Review of Systems Constitutional: dizziness (with standing) EENTM: no symptoms reported Respiratory: no symptoms reported Cardiovascular: no symptoms reported Gastrointestinal: no symptoms reported Genitourinary: no symptoms reported Musculoskeletal: no symptoms reported Skin: no symptoms reported Psychiatric/Neurological: Weakness (with standing) All Other Systems Reviewed Negative Unless Noted: Yes Past Iugmfjv-Cfxpnd-Hhwwsq Hx Immunizations Up To Date Tetanus Booster (TDap): Unknown Seasonal Allergies Seasonal Allergies: No Past Medical History Surgeries: Yes (several sx on both feet with toes amputed on right foot) Amputation, Appendectomy, Coronary Stent, Gallbladder, Liver Transplant, Orthopedic, Tonsillectomy Respiratory: No Currently Using CPAP: No Currently Using BIPAP: No Cardiac: Yes (congestive heart failure) Coronary Artery Disease, Hypertension Neurological: Yes (NEUROPATHY IN FEET) Neuropathy Reproductive Disorders: No Sexually Transmitted Disease: No HIV/AIDS: No Genitourinary: Yes Prostate Problems Gastrointestinal: Yes (HEPATITIS C--S/P INTERFERON TREATMENT; LIVER TRANSPLANT 2002) Liver Disease/Jaundice, Hepatitis, Cirrhosis Musculoskeletal: Yes (TOES AMPUTATED. CELLULITIS/OSTEOMYELITIS OF FEET/TOES) Amputee, Arthritis, Chronic Back Pain Endocrine: Yes ([id number] NOT CHECK BLOOD SUGARS EVERDAY) Diabetes, Non-Insulin dep HEENT: Yes (EDENTULOUS) Loss of Vision: Left Hearing Impairment: Denies Cancer: No Psychosocial: No (NEVER TAKEN MEDS) Depression Integumentary: Yes (CYST LEFT NECK; CELLULITIS/OSTEOMYELITIS OF FEET) Blood Disorders: No Adverse Reaction/Blood Tranf: No (HAS HAD BLOOD WITH NO REACTION) Family Medical History Cystic fibrosis 19 MOTHER G8 SISTER FH: breast cancer G8 SISTER Myocardial infarction 19 FATHER No Pertinent Family Hx Physical Exam Vital Signs Vital Signs - First Documented 07/31/21 13:00 Temp 35.7 Pulse 70 Resp 18 B/P (MAP) 77/45 (56) Pulse Ox 98 Capillary Refill : Height, Weight, BMI Height: 6'0.00" Weight: 240lbs. 0.0oz. [id number]; 34.27 BMI Method:Stated General Appearance: No Apparent Distress, WD/WN Eyes: Bilateral Eye PERRL, Bilateral Eye EOMI, Bilateral Eye Conjunctivae Pale HEENT: PERRL/EOMI Neck: Normal Inspection Respiratory: Lungs Clear, Normal Breath Sounds, No Accessory Muscle Use, No Respiratory Distress Cardiovascular: Regular Rate, Rhythm, Normal Peripheral Pulses (2+ radial) Gastrointestinal: Non Tender, Soft, Other (large healed chevron scar over abdomen. Mom tender. normal BS) Extremity: Normal Capillary Refill, Normal Inspection, Normal Range of Motion, Non Tender, No Calf Tenderness, No Pedal Edema Neurologic/Psychiatric: Alert, Oriented x3, No Motor/Sensory Deficits, Normal Mood/Affect, coke still cleaner II-XII Norm as Tested Skin: Warm/Dry, Pallor Focused Exam Lactate Level 07/31/21 13:32: Lactic Acid Level 2.80*H 07/31/21 16:37: Lactic Acid Level 2.50*H Time of Focused Exam: 15:20 Respiratory: Lungs Clear, Normal Breath Sounds, No Accessory Muscle Use, No Respiratory Distress Cardiovascular: Regular Rate, Rhythm, Normal Peripheral Pulses (1+ radial bilaterally) Peripheral Pulses: 1+ Radial Pulses (R), 1+ Radial Pulses (L) Skin: normal color ((slightly pale)), warm/dry Lactic Acid Level Laboratory Tests Test 07/31/21 13:32 07/31/21 16:37 Lactic Acid Level 2.80 MMOL/L (0.50-2.00) *H 2.50 MMOL/L (0.50-2.00) *H Within 3hrs of presentation: Admin fluids, Admin 30ml/kg IBW due to BMI>30, Admin ABX, Blood cultures prior to ABX's, Focus exam, Lactate level, Vasopressin therapy Procedures/Interventions Lumen: triple Central Line Procedure: betadine prep, sterile drapes applied, sterile dressing applied Position: internal jugular (R) Anesthesia: Lidocaine Volume Anesthetic (ccs): 2 Complications: none Post Position: sutured, good blood return, position confirmed w/ CXR Progress/Results/Core Measures Suspected Sepsis Recent Fever Within 48 Hours: No Infection Criteria Present: None New/Unexplained Altered Menta: No Within 3hrs of presentation: Admin fluids, Blood cultures prior to ABX's, Lactate level SIRS Temperature: Pulse: Respiratory Rate: Laboratory Tests 07/31/21 13:10: White Blood Count 6.9 Blood Pressure / Mean: 07/31/21 13:32: Lactic Acid Level 2.80*H 07/31/21 16:37: Lactic Acid Level 2.50*H Laboratory Tests 07/31/21 13:10: Creatinine 1.64H, INR Comment 1.0, Platelet Count 353, Total Bilirubin 1.1H Results/Orders Lab Results Laboratory Tests Test 07/31/21 13:08 07/31/21 13:10 07/31/21 13:32 07/31/21 14:15 Range/Units Glucometer 489 *H 70-110 MG/DL White Blood Count 6.9 4.3-11.0 10^3/uL Red Blood Count 4.96 4.30-5.52 10^6/uL Hemoglobin 14.4 13.3-17.7 g/dL Hematocrit 44 40-54 % Mean Corpuscular Volume 88 80-99 fL Mean Corpuscular Hemoglobin 29 25-34 pg Mean Corpuscular Hemoglobin Concent 33 32-36 g/dL Red Cell Distribution Width 12.9 10.0-14.5 % Platelet Count 353 130-400 10^3/uL Mean Platelet Volume 11.4 9.0-12.2 fL Immature Granulocyte % (Auto) 0 % Neutrophils (%) (Auto) 73 42-75 % Lymphocytes (%) (Auto) 17 12-44 % Monocytes (%) (Auto) 8 0-12 % Eosinophils (%) (Auto) 1 0-10 % Basophils (%) (Auto) 0 0-10 % Neutrophils # (Auto) 5.0 1.8-7.8 10^3/uL Lymphocytes # (Auto) 1.2 1.0-4.0 10^3/uL Monocytes # (Auto) 0.6 0.0-1.0 10^3/uL Eosinophils # (Auto) 0.1 0.0-0.3 10^3/uL Basophils # (Auto) 0.0 0.0-0.1 10^3/uL Immature Granulocyte # (Auto) 0.0 0.0-0.1 10^3/uL Prothrombin Time 13.6 12.2-14.7 SEC INR Comment 1.0 0.8-1.4 Activated Partial Thromboplast Time 26 24-35 SEC Sodium Level 131 L 135-145 MMOL/L Potassium Level 5.3 H 3.6-5.0 MMOL/L Chloride Level 98 98-107 MMOL/L Carbon Dioxide Level 29 21-32 MMOL/L Anion Gap 4 L 5-14 MMOL/L Blood Urea Nitrogen 24 H 7-18 MG/DL Creatinine 1.64 H 0.60-1.30 MG/DL Estimat Glomerular Filtration Rate 42 BUN/Creatinine Ratio 15 Glucose Level 540 *H 70-105 MG/DL Calcium Level 10.3 H 8.5-10.1 MG/DL Corrected Calcium 10.5 H 8.5-10.1 MG/DL Total Bilirubin 1.1 H 0.1-1.0 MG/DL Aspartate Amino Transf (AST/SGOT) 32 5-34 U/L Alanine Aminotransferase (ALT/SGPT) 50 0-55 U/L Alkaline Phosphatase 127 40-136 U/L Total Protein 8.1 6.4-8.2 GM/DL Albumin 3.7 3.2-4.5 GM/DL Lactic Acid Level 2.80 *H 0.50-2.00 MMOL/L Blood Gas Puncture Site RT RAD Blood Gas Patient Temperature 93.1 Arterial Blood pH 7.44 H 7.37-7.43 Arterial Blood Partial Pressure CO2 33 L 35-45 MMHG Arterial Blood Partial Pressure O2 86 79-93 MMHG Arterial Blood HCO3 23 23-27 MMOL/L Arterial Blood Total CO2 23.9 21.0-31.0 MMOL/L Arterial Blood Oxygen Saturation 97 94-100 % Arterial Blood Base Excess -1.3 -2.5-2.5 MMOL/L Larry Test YES-POS Blood Gas Ventilator Setting NO Blood Gas Inspired Oxygen ROOM AIR Test 07/31/21 14:48 07/31/21 15:19 07/31/21 16:37 Range/Units Urine Color YELLOW Urine Clarity CLEAR Urine pH 5.5 5-9 Urine Specific [place] 1.015 L 1.016-1.022 Urine Protein TRACE H NEGATIVE Urine Glucose (UA) 3+ H NEGATIVE Urine Ketones NEGATIVE NEGATIVE Urine Nitrite NEGATIVE NEGATIVE Urine Bilirubin NEGATIVE NEGATIVE Urine Urobilinogen 0.2 < = 1.0 MG/DL Urine Leukocyte Esterase 1+ H NEGATIVE Urine RBC (Auto) TRACE-I H NEGATIVE Urine RBC 2-5 H /HPF Urine WBC 25-50 H /HPF Urine Squamous Epithelial Cells 2-5 /HPF Urine Crystals NONE /LPF Urine Bacteria LARGE H /HPF Urine Casts NONE /LPF Urine Mucus NEGATIVE /LPF Urine Culture Indicated YES Glucometer 328 H 70-110 MG/DL Lactic Acid Level 2.50 *H 0.50-2.00 MMOL/L My Orders Orders - ELIER GONZALES MD Cbc With Automated Diff (07/31/21 13:18) Comprehensive Metabolic Panel (07/31/21 13:18) Blood Culture (07/31/21 13:18) Urinalysis (07/31/21 13:18) Urine Culture (07/31/21 13:18) Protime With Inr (07/31/21 13:18) Partial Thromboplastin Time (07/31/21 13:18) Chest 1 View, Ap/Pa Only (07/31/21 13:18) Ed Iv/Invasive Line Start (07/31/21 13:18) Ed Iv/Invasive Line Start (07/31/21 13:18) Vital Signs Adult Sepsis Patie Q15M (07/31/21 13:18) O2 (07/31/21 13:18) Remove Rings In Anticipation O (07/31/21 13:18) Lactic Acid Analyzer (07/31/21 13:18) Ns Iv 500 Ml (Sodium Chloride 0.9%) (07/31/21 13:30) Ekg Tracing (07/31/21 13:18) Ns Iv 1000 Ml (Sodium Chloride 0.9%) (07/31/21 14:10) Ns Iv 1000 Ml (Sodium Chloride 0.9%) (07/31/21 14:15) Insulin (Regular) Human (Novolin R (Per (07/31/21 14:16) Insulin (Regular) Human (Novolin R (Per (07/31/21 14:16) Arterial Blood Gas (07/31/21 14:16) Cefepime Injection (Maxipime Injection) (07/31/21 15:30) Ns Iv 1000 Ml (Sodium Chloride 0.9%) (07/31/21 15:30) Ed Admission (Communication) (07/31/21 17:03) Medications Given in ED Current Medications Medications Dose Ordered Sig/Merrick Route Start Time Stop Time Status Last Admin Dose Admin Cefepime HCl 1000 mg/Sodium Chloride 50 ml @ 100 mls/hr ONCE ONCE IV 07/31/21 15:30 07/31/21 15:59 DC 07/31/21 17:25 100 MLS/HR Vital Signs/I&O 07/31/21 13:00 Temp 35.7 Pulse 70 Resp 18 B/P (MAP) 77/45 (56) Pulse Ox 98 Capillary Refill : Progress Note #1: Time: 14:39 Progress Note re-evaluation BP, 81/56 HR 76, SpO2 97% Progress Note #2: Time: 17:28 Progress Note post procedure systolic BP is 96. He is 167ml shy of 30ml/kg fluid bolus. Inpatient orders per Dr Echols ECG Initial ECG Impression Date: Jul 31, 2021 Initial ECG Impression Time: 13:50 Initial ECG Rate: 66 Initial ECG Rhythm: Normal Sinus Initial ECG Intervals: Normal Initial ECG Intervals LA 155 QRS 117 QTc 482 Initial ECG Impression: Nonspecific Changes Comment Normal sinus rhythm without ectopy, incomplete left bundle branch block with a QRS of 117. Mild ST segment flattening with trace depression in the precordial leads, T wave inversion in lead V2. Q waves inferiorly. Diagnostic Imaging Diagonstic Imaging: Xray Plain Films/CT/US/NM/MRI: chest Comments [facility]. [place], [place] NAME: ERIBERTO RAMEY [facility] REC#: [id number] PT STATUS: REG ER : 1950 PHYSICIAN: ELIER GONZLAES MD ADMIT DATE: 07/31/21/ER Signed Date of Exam:07/31/21 CHEST 1 VIEW, AP/PA ONLY EXAMINATION: Chest, one view. HISTORY: Hypotension, elevated blood sugar. COMPARISON: 01/06/2020. FINDINGS: Heart size and pulmonary vasculature are normal. Left-sided cardiac device is unchanged. Stable mild bibasilar interstitial opacities. No new consolidation, pleural effusion, or pneumothorax. The osseous structures are intact. IMPRESSION: 1. No acute radiographic abnormality in the chest. Dictated by: Dictated on workstation # [id number] Dict: 07/31/21 1350 Trans: 07/31/21 1401 [id number] Interpreted by: DYLLAN CONTEH DO Electronically signed by: DYLLAN CONTEH DO 07/31/21 1401 Critical Care Note Critical Care Start Time: 13:05 Stop Time: 15:25 Total Time (minutes) Critical care time 40 minutes in the initial evaluation and management of this 70-year-old gentleman with a history of liver transplant, coronary artery disease and diabetes. Time includes fluid resuscitation for hypotension, blood pressure in the 70s. Review and interpretation of laboratory studies, treatment of hyperglycemia, review of the medical record, discussion with admitting provider. Departure Communication (Admissions) Time/Spoke to Admitting Phy: 15:23 Onesimo will be in ED in a few minutes for admission Time/Spoke to Consulting Phy: 16:[address] Alarcon Impression Primary Impression: Hyperglycemia Additional Impressions: Hypotension Qualified Codes: I95.9 - Hypotension, unspecified Sepsis Qualified Codes: A41.9 - Sepsis, unspecified organism Disposition: ADMITTED INPATIENT Condition: Critical Admissions Decision to Admit Reason: Admit from ER (General) Decision to Admit/Date: Jul 31, 2021 Time/Decision to Admit Time: 15:24 Departure-Patient Inst. Referrals: SUSAN QUIÑONEZ MD (PCP/Family) Primary Care Physician ELIER GONZALES MD Jul 31, 2021 13:27
[2021-07-31 13:34] LABS: BASOPHILS % (AUTO) 0 % (0-10); EOSINOPHILS # (AUTO) 0.1 10^3/uL (0.0-0.3); EOSINOPHILS % (AUTO) 1 % (0-10); HEMATOCRIT 44 % (40-54); HEMOGLOBIN 14.4 g/dL (13.3-17.7); LYMPHOCYTES # (AUTO) 1.2 10^3/uL (1.0-4.0); LYMPHOCYTES % (AUTO) 17 % (12-44); MEAN CORPUSCULAR HEMOGLOBIN 29 pg (25-34); MEAN CORPUSCULAR HGB CONC 33 g/dL (32-36); MEAN CORPUSCULAR VOLUME 88 fL (80-99); MEAN PLATELET VOLUME 11.4 fL (9.0-12.2); MONOCYTES # (AUTO) 0.6 10^3/uL (0.0-1.0); MONOCYTES % (AUTO) 8 % (0-12); NEUTROPHILS % (AUTO) 73 % (42-75); PLATELET COUNT 353 10^3/uL (130-400); WHITE BLOOD COUNT 6.9 10^3/uL (4.3-11.0)
[2021-07-31 13:39] LABS: PROTHROMBIN TIME PATIENT 13.6 SEC (12.2-14.7)
[2021-07-31 13:47] LABS: ALBUMIN 3.7 GM/DL (3.2-4.5); BILIRUBIN,TOTAL 1.1 MG/DL (0.1-1.0); CALCIUM 10.3 MG/DL (8.5-10.1); CREATININE SERUM 1.64 MG/DL (0.60-1.30); POTASSIUM 5.3 MMOL/L (3.6-5.0); TOTAL PROTEIN 8.1 GM/DL (6.4-8.2)
--- NOTE | 2021-07-31 13:53 | Diagnostic Imaging Report ---
EXAMINATION: Chest, one view. HISTORY: Hypotension, elevated blood sugar. COMPARISON: 01/06/2020. FINDINGS: Heart size and pulmonary vasculature are normal. Left-sided cardiac device is unchanged. Stable mild bibasilar interstitial opacities. No new consolidation, pleural effusion, or pneumothorax. The osseous structures are intact. IMPRESSION: 1. No acute radiographic abnormality in the chest. Dictated by: Dictated on workstation # [id number]
[2021-07-31] MEDS ORDERED: NS IV 1000 ML 1,000 ML ONE (14:10)
[2021-07-31] MEDS ORDERED: NS IV 1000 ML 1,000 ML IV SCH ×2 (14:15→15:30)
[2021-07-31] MEDS ORDERED: inSUlin (REGULAR) HUMAN 1 UNIT/0.01 ML (CHARGE PER UNIT) SC STA (14:16)
[2021-07-31] MEDS ORDERED: inSUlin (REGULAR) HUMAN 1 UNIT/0.01 ML (CHARGE PER UNIT) IV STA (14:16)
[2021-07-31 14:21] LABS: ABG BASE EXCESS -1.3 MMOL/L (-2.5-2.5); ABG OXYGEN SATURATION 97 % (94-100); ABG PCO2 33 MMHG (35-45); ABG PH 7.44 (7.37-7.43); ABG PO2 86 MMHG (79-93); ABG TCO2 23.9 MMOL/L (21.0-31.0)
[2021-07-31 14:22] LABS: ALLENS TEST YES-POS; INSPIRED O2 ROOM AIR; PATIENT TEMP 93.1; VENTILATOR NO
[2021-07-31 14:51] LABS: BILIRUBIN,URINE NEGATIVE (NEGATIVE); CLARITY,URINE CLEAR; COLOR,URINE YELLOW; GLUCOSE, URINE (UA) 3+ (NEGATIVE); KETONES,URINE NEGATIVE (NEGATIVE); LEUKOCYTE ESTERASE ,URINE 1+ (NEGATIVE); NITRITE,URINE NEGATIVE (NEGATIVE); PH,URINE 5.5 (5-9); PROTEIN,URINE TRACE (NEGATIVE)
[2021-07-31 15:03] LABS: BACTERIA,URINE LARGE /HPF; WBC,URINE 25-50 /HPF
[2021-07-31] MEDS ORDERED: CEFEPIME INJECTION 1,000 MG in NS (IVPB) 50 ML IV ONE (15:30)
--- NOTE | 2021-07-31 16:06 | History & Physical-Hospitalist ---
History of Present Illness HPI/Chief Complaint Chief complaint: Hypotension from UTI History of present illness: This is a 70-year-old white male [facility] who is known to me from 2 years ago admission for A. emerita who has a history of liver transplant who presented to the ER with hypotension. Patient was found to have a UTI as source of hypotension and will require central line along with pressor therapy and insulin drip due to [id number]-yi-[id number] diabetes. Source: patient Exam Limitations: clinical condition Date Seen 07/31/21 Time Seen by a Provider: 16:00 Attending Physician PCP Andreas Vergara MD Referring Physician Date of Admission Home Medications & Allergies Home Medications Reviewed patient Home Medication Reconciliation performed by pharmacy medication reconciliations technicians and trades workers and/or nursing. Patients Allergies have been reviewed. Allergies Allergies Coded Allergies No Known Drug Allergies (Unverified12/14/17) Past Kmesfeb-Axiobr-Dqmije Hx Patient Social History Marrital Status: single Employed/Student: unemployed Tobacco Use?: No Smoking Status: Former Smoker Substance use?: No Alcohol Use?: No Pt feels they are or have been: No Immunizations Up To Date Date of Influenza Vaccine: Apr 11, 2019 First/Initial COVID19 Vaccinat: 12/24/20 Second COVID19 Vaccination Anshu: 02/13/21 Tetanus Booster (TDap): Unknown Date of Pneumonia Vaccine: Aug 03, 2011 Seasonal Allergies Seasonal Allergies: No Current Status Advance Directives: No Primary Language: Cambodian Preferred Spoken Language: Lithuanian Past Medical History Surgeries: Amputation, Appendectomy, Coronary Stent, Gallbladder, Liver Transplant, Orthopedic, Tonsillectomy Currently Using CPAP: No Currently Using BIPAP: No Coronary Artery Disease, Hypertension Neuropathy Sexually Transmitted Disease: No HIV/AIDS: No Prostate Problems Liver Disease/Jaundice, Hepatitis, Cirrhosis Amputee, Arthritis, Chronic Back Pain Diabetes, Non-Insulin dep Loss of Vision: Left Hearing Impairment: Denies Depression Blood Disorders: No Adverse Reaction/Blood Tranf: No (HAS HAD BLOOD WITH NO REACTION) PMHx: Hepatitis C Liver transplant Diabetes mellitus type II CAD s/p stenting PSurgHx: First and second digit amputation right foot Second digit amputation left Appendectomy Coronary artery stenting Family Medical History Cystic fibrosis 19 MOTHER G8 SISTER FH: breast cancer G8 SISTER Myocardial infarction 19 FATHER No Pertinent Family Hx Review of Systems Constitutional: see HPI, dizziness, malaise, weakness EENTM: no symptoms reported Respiratory: dyspnea on exertion Cardiovascular: no symptoms reported Gastrointestinal: no symptoms reported Genitourinary: no symptoms reported Musculoskeletal: no symptoms reported Skin: no symptoms reported Psychiatric/Neurological: No Symptoms Reported All Other Systems Reviewed Negative Unless Noted: Yes Physical Exam Physical Exam Vital Signs Vital Signs - First Documented 07/31/21 07/31/21 13:00 18:15 Temp 35.7 Pulse 70 Resp 18 B/P (MAP) 77/45 (56) Pulse Ox 98 O2 Delivery Room Air Capillary Refill : Less Than 3 Seconds Height, Weight, BMI Height: 6'0.00" Weight: 240lbs. 0.0oz. 108.276041cg; 26.00 BMI Method:Stated General Appearance: Anxious, Chronically ill Eyes: Right Eye Normal Inspection, Right Eye PERRL HEENT: PERRL/EOMI, Normal ENT Inspection, Pharynx Normal, Moist Mucous Membranes Neck: Full Range of Motion, Normal Inspection, Non Tender Respiratory: Chest Non Tender, Lungs Clear, Normal Breath Sounds, No Accessory Muscle Use, No Respiratory Distress Cardiovascular: Regular Rate, Rhythm, No Edema, No Gallop, No JVD, No Murmur, Normal Peripheral Pulses Gastrointestinal: Normal Bowel Sounds, No Organomegaly, No Pulsatile Mass, Non Tender, Soft Back: Normal Inspection, No CVA Tenderness, No Vertebral Tenderness Extremity: Normal Capillary Refill, Normal Inspection, Normal Range of Motion, Non Tender, No Calf Tenderness, No Pedal Edema Neurologic/Psychiatric: Alert, Oriented x3, No Motor/Sensory Deficits, Normal Mood/Affect Skin: Normal Color, Warm/Dry Lymphatic: No Adenopathy Results Results/Procedures Labs Laboratory Tests 07/31/21 13:10 08/01/21 04:02 Patient resulted labs reviewed. Assessment/Plan Admission Diagnosis Assessment: Septic shock UTI Liver transplant status History of alcohol use CAD Atrial fibrillation? Acute kidney injury Plan: ICU Insulin drip Supportive care IV fluid Pressor therapy Admission Status: Inpatient Order (span 2 midnights) Reason for Inpatient Admission: Septic shock Diagnosis/Problems Diagnosis/Problems (1) Septic shock (2) UTI (urinary tract infection) (3) Hypotension Status: Acute Qualifiers: Hypotension type: unspecified hypotension type Qualified Codes: I95.9 - Hypotension, unspecified (4) Diabetes mellitus type 2 with complications Status: Chronic KEITH CABALLERO DO Jul 31, 2021 16:06
--- NOTE | 2021-07-31 17:33 | Diagnostic Imaging Report ---
EXAMINATION: Chest 1 view HISTORY: Line placement COMPARISON: 07/31/2021 FINDINGS: Right internal jugular central venous catheter tip terminates in the superior vena cava. Left subclavian pacemaker is present. There is mild edema. No pleural effusion or pneumothorax. Heart size is normal. IMPRESSION: 1. Mild edema. 2. Right internal jugular central venous catheter tip terminates in the superior vena cava. Dictated by: Dictated on workstation # [id number]
[2021-07-31 18:00] VITALS: BP 91/66
[2021-07-31] MEDS ORDERED: D5 1/2 NS 1000 ML IV SOLUTION 1,000 ML IV PRN (18:00)
[2021-07-31] MEDS ORDERED: HYDROcodone/APAP 5 MG/325 MG (LORTAB) TAB PO PRN (18:00)
[2021-07-31] MEDS ORDERED: LORazepam INJ 2 MG/ML (ATIVAN) VIAL IM/IV PRN (18:00)
[2021-07-31] MEDS ORDERED: ACETAMINOPHEN 325 MG TABLET PO PRN (18:00)
[2021-07-31] MEDS ORDERED: DOCUSATE SODIUM 100 MG (COLACE) CAP PO PRN (18:00)
[2021-07-31] MEDS ORDERED: LOPERAMIDE 2 MG (IMODIUM) TABLET PO PRN (18:00)
[2021-07-31] MEDS ORDERED: LORazepam INJ 2 MG/ML (ATIVAN) VIAL IV PRN (18:00)
[2021-07-31] MEDS ORDERED: morphine INJ 10 MG/ML 1ML (SYR OR VIAL) IVP PRN (18:00)
[2021-07-31] MEDS ORDERED: ANTACID SUSP 30 ML UDC (MYLANTA) PO PRN (18:00)
[2021-07-31] MEDS ORDERED: CALCIUM CARBONATE 500 MG (TUMS) TAB.CHEW PO PRN (18:00)
[2021-07-31] MEDS ORDERED: ALPRAZolam 0.25 MG (XANAX) TAB PO PRN (18:00)
[2021-07-31] MEDS ORDERED: ONDANSETRON 4 MG/2 ML (SDV) Z0FRAN IVP PRN (18:00)
[2021-07-31] MEDS ORDERED: DEXTROSE 50% 50 ML (IMS) SYR IV PRN (18:00)
[2021-07-31] MEDS ORDERED: LORazepam 1 MG (ATIVAN) TAB PO PRN (18:00)
[2021-07-31] MEDS ORDERED: NOREPINEPHRINE 8 MG/250 ML 250 ML IV SCH (18:00)
[2021-07-31] MEDS ORDERED: diphenhydrAMINE 25 MG TAB (BENADRYL) PO PRN (18:00)
[2021-07-31] MEDS ORDERED: 1/2 NS IV SOLUTION 1,000 ML IV PRN (18:00)
[2021-07-31] MEDS: CEFEPIME INJECTION 1,000 MG in NS (IVPB) 50 ML IV SCH ×2 (18:25→23:26)
[2021-07-31] MEDS: ENOXAPARIN 40 MG/0.4 ML (LOVENOX) SYR SC SCH (18:44)
[2021-07-31] MEDS: NS IV 1000 ML 1,000 ML IV SCH ×2 (18:45→22:28)
[2021-07-31] MEDS: SENNA W/DOCUSATE (SENOKOT S) TABLET PO SCH (20:54)
[2021-07-31] MEDS: polyethylene glycoL POWDER 17 GM (MIRALAX) PACK PO SCH (20:55)
[2021-07-31] MEDS: MAGNESIUM OXIDE (MAG-OX)400 MG TAB PO SCH (20:55)
[2021-07-31] MEDS: MELATONIN 3 MG TABLET PO PRN (20:55)
[2021-08-01] MEDS: NS IV 1000 ML 1,000 ML IV SCH ×3 (02:57→09:32)
[2021-08-01 04:17] LABS: BASOPHILS % (AUTO) 1 % (0-10); EOSINOPHILS # (AUTO) 0.2 10^3/uL (0.0-0.3); EOSINOPHILS % (AUTO) 4 % (0-10); HEMATOCRIT 34 % (40-54); HEMOGLOBIN 11.3 g/dL (13.3-17.7); LYMPHOCYTES # (AUTO) 1.9 10^3/uL (1.0-4.0); LYMPHOCYTES % (AUTO) 35 % (12-44); MEAN CORPUSCULAR HEMOGLOBIN 29 pg (25-34); MEAN CORPUSCULAR HGB CONC 33 g/dL (32-36); MEAN CORPUSCULAR VOLUME 86 fL (80-99); MONOCYTES # (AUTO) 0.6 10^3/uL (0.0-1.0); MONOCYTES % (AUTO) 10 % (0-12); NEUTROPHILS # (AUTO) 2.7 10^3/uL (1.8-7.8); NEUTROPHILS % (AUTO) 50 % (42-75); PLATELET COUNT 296 10^3/uL (130-400); WHITE BLOOD COUNT 5.4 10^3/uL (4.3-11.0)
[2021-08-01 04:22] LABS: ALBUMIN 2.8 GM/DL (3.2-4.5); POTASSIUM 3.4 MMOL/L (3.6-5.0)
[2021-08-01 04:23] LABS: CALCIUM 8.2 MG/DL (8.5-10.1)
[2021-08-01 04:24] LABS: TOTAL PROTEIN 5.8 GM/DL (6.4-8.2)
[2021-08-01 04:26] LABS: BILIRUBIN,TOTAL 0.9 MG/DL (0.1-1.0)
[2021-08-01 04:28] LABS: CREATININE SERUM 0.9 MG/DL (0.60-1.30)
[2021-08-01] MEDS ORDERED: KCL 20 MEQ TAB (K-DUR) PO ONE (05:00)
[2021-08-01] MEDS: CEFEPIME INJECTION 1,000 MG in NS (IVPB) 50 ML IV SCH ×4 (05:09→23:17)
[2021-08-01] MEDS ORDERED: POTASSIUM CL 10MEQ/50ML IVPB 50 ML IV SCH (06:00)
[2021-08-01] MEDS ORDERED: KCL 20 MEQ TAB (K-DUR) PO SCH (06:00)
[2021-08-01] MEDS ORDERED: MAGNESIUM 1 GM/100 ML IVPB 100 ML IV SCH (06:00)
[2021-08-01] MEDS: THIAMINE 100 MG (VITAMIN B-1) TAB PO SCH (06:02)
[2021-08-01] MEDS: MULTIVIT W/MINERALS TAB (THERAGRAN M) PO SCH (06:02)
[2021-08-01] MEDS: MAGNESIUM OXIDE (MAG-OX)400 MG TAB PO SCH ×2 (08:04→20:02)
[2021-08-01] MEDS: polyethylene glycoL POWDER 17 GM (MIRALAX) PACK PO SCH ×2 (08:04→20:02)
[2021-08-01] MEDS: FOLIC ACID 1 MG TAB PO SCH (08:04)
[2021-08-01] MEDS: SENNA W/DOCUSATE (SENOKOT S) TABLET PO SCH ×2 (08:04→20:01)
[2021-08-01 08:55] LABS: TRIGLYCERIDES 113 MG/DL (<150); VLDL CHOLESTEROL 23 MG/DL (5-40)
[2021-08-01 09:00] LABS: CHOLESTEROL 114 MG/DL (< 200)
[2021-08-01 09:01] LABS: HDL CHOLESTEROL 23 MG/DL (40-60)
--- NOTE | 2021-08-01 11:12 | Consultation-Cardiology ---
HPI-Cardiology Cardiology Consultation: Date of Consultation 08/01/2021 Date of Admission 07/31/2021 Attending Physician Bessie Echols DO Admitting Physician Ankit Shah MD Consulting Physician SUSAN PHILLIPS JR, MD HPI: Time Seen by a Provider: 11:08 Chief Complaint: Reason for consultation: History of coronary artery disease and atrial fibrillation. I had the pleasure of seeing Stevie in the intensive care unit this morning. He has a history of coronary artery disease with previous stents in the left anterior descending and right coronary arteries as well as atrial fibrillation. He has not been seen in our office in quite some time. He is in the process of arranging treatment for recently diagnosed hepatitis C. He has recently been suffering from lightheaded spells. He denies any syncope. Yesterday he felt profound weakness. He actually had an appointment with his primary provider and nearly had syncope in the primary care provider's office. He was brought to the hospital by ambulance for further evaluation. Because of his cardiac history, a cardiology consultation was requested. He denies any chest discomfort, dyspnea, paroxysmal nocturnal dyspnea, orthopnea, palpitations, or lower extremity edema. Certain portions of this document may have been dictated utilizing voice recognition technology. Inherent to this technology, typographical and grammatical errors may exist. As much as I am diligent to identify and correct these mistakes, some errors may remain in the document. Review of Systems-Cardiology Review of Systems Other comments Review of 10 organ systems is as per the history of present illness, otherwise negative. All Other Systems Reviewed Negative Unless Noted: Yes [id number] Hx Patient Social History Marrital Status: single Employed/Student: unemployed Smoking Status: Former Smoker Former smoker/When Quit: Mar 03, 2002 2nd Hand Smoke Exposure: No Alcohol Use?: Yes Pt feels they are or have been: No Tobacco type used: Cigarettes Immunizations Up To Date Tetanus Booster (TDap): Unknown Date of Pneumonia Vaccine: Aug 03, 2011 Date of Influenza Vaccine: Apr 11, 2019 Past Medical History PMH As described under Assessment. Family Medical History Family History: Cystic fibrosis 19 MOTHER G8 SISTER FH: breast cancer G8 SISTER Myocardial infarction 19 FATHER Allergies and Home Medications Allergies Coded Allergies: No Known Drug Allergies (Unverified , 12/14/17) Patient Home Medication List Home Medication List Reviewed: Yes Amiodarone HCl (Amiodarone HCl) 200 Mg Tablet, 200 MG PO DAILY, (Reported) Entered as Reported by: AIDE FARLEY on 08/01/21 1344 Last Action: Reviewed Aspirin (Aspirin EC) 81 Mg Tablet.dr, 81 MG PO DAILY, (Reported) Entered as Reported by: AIDE FARLEY on 09/07/19 1209 Last Action: Reviewed Atorvastatin Calcium (Atorvastatin Calcium) 10 Mg Tablet, 10 MG PO DAILY, (Repo rted) Entered as Reported by: AIDE FARLEY on 09/07/19 121 Last Action: Reviewed Diphenhydramine HCl (Benadryl Allergy) 25 Mg Tablet, 50 MG PO HS, (Reported) Entered as Reported by: AIDE FARLEY on 08/01/21 134 Last Action: Reviewed Insulin Aspart (Novolog Flexpen) 300 Units/3 Ml Solution, 15 UNITS SQ TIDAC, (Reported) Entered as Reported by: AIDE FARLEY on 09/07/19 1213 Last Action: Reviewed Insulin Detemir (Levemir Flextouch) 100 Unit/1 Ml Insuln.pen, 30 UNIT SQ HS, (Reported) Entered as Reported by: AIDE FARLEY on 09/07/19 121 Last Action: Reviewed Losartan Potassium (Losartan Potassium) 25 Mg Tablet, 25 MG PO DAILY, (Reported) Entered as Reported by: AIDE FARLEY on 05/06/19 1154 Last Action: Reviewed Metformin HCl (Metformin HCl) 1,000 Mg Tablet, 1,000 MG PO BID, (Reported) Entered as Reported by: AIDE FARLEY on 09/07/19 121 Last Action: Reviewed Metoprolol Tartrate (Metoprolol Tartrate) 50 Mg Tablet, 50 MG PO BID, (Reported) Entered as Reported by: AIDE FARLEY on 08/01/21 1344 Last Action: Reviewed [place]-3/Dha/Epa/Fish Oil (Fish Oil 1,000 mg Softgel) 1,000 Mg Capsule, 1,000 MG PO BID, (Reported) Entered as Reported by: AIDE FARLEY on 09/07/19 1209 Last Action: Reviewed Ticagrelor (Brilinta) 90 Mg Tablet, 90 MG PO DAILY, (Reported) Entered as Reported by: AIDE FARLEY on 08/01/21 134 Last Action: Reviewed Discontinued Medications Amiodarone HCl (Amiodarone HCl) 200 Mg Tablet, 200 MG PO BID Discontinued Reason: No Longer Taking Prescribed by: OTTO MULLIGAN on 01/06/20 1505 Last Action: Discontinued Diphenhydramine HCl (Benadryl Allergy) 25 Mg Tablet, 25 MG PO, (Reported) Discontinued Reason: No Longer Taking Entered as Reported by: AIDE FARLEY on 08/01/21 1344 Last Action: Discontinued Metoprolol Tartrate (Metoprolol Tartrate) 50 Mg Tablet, 50 MG PO BID Discontinued Reason: No Longer Taking Prescribed by: SHYANNE JANSEN on 01/06/20 1019 Last Action: Discontinued Ticagrelor (Brilinta) 90 Mg Tablet, 90 MG PO BID, (Reported) Discontinued Reason: No Longer Taking Entered as Reported by: AIDE FARLEY on 09/07/19 1212 Last Action: Discontinued Exam Vital Signs Vital Signs Date Time Temp Pulse Resp B/P (MAP) Pulse Ox O2 Delivery O2 Flow Rate FiO2 08/01/21 16:03 Room Air 08/01/21 15:00 85 21 101/64 98 08/01/21 12:00 36.4 Physical Exam General: Alert. No acute distress. Well nourished and appears stated age. Eye: Extraocular movements are intact. Conjunctivae are clear. There are no xanthelasma. HENT: Normocephalic. Atraumatic. Carotid pulsations 2/2 without bruits. Neck: Jugular venous pressure does not appear elevated. No thyromegaly appreciated. Respiratory: Lungs are clear to auscultation. Respirations are non-labored. Breath sounds are equal. Symmetrical chest wall expansion. Cardiovascular: Normal rate. Regular rhythm. No murmur. No gallop. Point of maximal impulse is not appear displaced. Good pulses equal in all extremities. No edema. Gastrointestinal: Soft. Normal bowel sounds. Skin: Skin turgor is normal. There is no pallor. Musculoskeletal: No kyphosis or scoliosis appreciated. Right transmetatarsal amputation. Neurologic: Alert and oriented to person, place, time. Cranial nerves 3-12 appear grossly intact. The patient has good motor tone strength in the upper and lower extremities bilaterally. Psychiatric: Cooperative. Appropriate mood & affect. Labs Laboratory Tests Test 07/31/21 18:08 07/31/21 18:15 07/31/21 19:08 07/31/21 20:00 Range/Units Glucometer 243 H 247 H 204 H 70-110 MG/DL Lactic Acid Level 1.61 0.50-2.00 MMOL/L Test 07/31/21 21:02 07/31/21 22:01 07/31/21 23:08 08/01/21 00:03 Range/Units Glucometer 187 H 188 H 158 H 156 H 70-110 MG/DL Test 08/01/21 02:01 08/01/21 02:56 08/01/21 04:00 08/01/21 04:02 Range/Units Glucometer 138 H 147 H 128 H 70-110 MG/DL White Blood Count 5.4 4.3-11.0 10^3/uL Red Blood Count 3.91 L 4.30-5.52 10^6/uL Hemoglobin 11.3 #L 13.3-17.7 g/dL Hematocrit 34 L 40-54 % Mean Corpuscular Volume 86 80-99 fL Mean Corpuscular Hemoglobin 29 25-34 pg Mean Corpuscular Hemoglobin Concent 33 32-36 g/dL Red Cell Distribution Width 13.2 10.0-14.5 % Platelet Count 296 130-400 10^3/uL Mean Platelet Volume 11.0 9.0-12.2 fL Immature Granulocyte % (Auto) 0 % Neutrophils (%) (Auto) 50 42-75 % Lymphocytes (%) (Auto) 35 12-44 % Monocytes (%) (Auto) 10 0-12 % Eosinophils (%) (Auto) 4 0-10 % Basophils (%) (Auto) 1 0-10 % Neutrophils # (Auto) 2.7 1.8-7.8 10^3/uL Lymphocytes # (Auto) 1.9 1.0-4.0 10^3/uL Monocytes # (Auto) 0.6 0.0-1.0 10^3/uL Eosinophils # (Auto) 0.2 0.0-0.3 10^3/uL Basophils # (Auto) 0.0 0.0-0.1 10^3/uL Immature Granulocyte # (Auto) 0.0 0.0-0.1 10^3/uL Sodium Level 139 135-145 MMOL/L Potassium Level 3.4 L 3.6-5.0 MMOL/L Chloride Level 109 H 98-107 MMOL/L Carbon Dioxide Level 21 21-32 MMOL/L Anion Gap 9 5-14 MMOL/L Blood Urea Nitrogen 20 H 7-18 MG/DL Creatinine 0.90 0.60-1.30 MG/DL Estimat Glomerular Filtration Rate 84 BUN/Creatinine Ratio 22 Glucose Level 126 H 70-105 MG/DL Calcium Level 8.2 L 8.5-10.1 MG/DL Corrected Calcium 9.2 8.5-10.1 MG/DL Total Bilirubin 0.9 0.1-1.0 MG/DL Aspartate Amino Transf (AST/SGOT) 23 5-34 U/L Alanine Aminotransferase (ALT/SGPT) 35 0-55 U/L Alkaline Phosphatase 93 40-136 U/L Troponin I < 0.028 <0.028 NG/ML Total Protein 5.8 L 6.4-8.2 GM/DL Albumin 2.8 L 3.2-4.5 GM/DL Triglycerides Level 113 <150 MG/DL Cholesterol Level 114 < 200 MG/DL LDL Cholesterol Direct 77 1-129 MG/DL VLDL Cholesterol 23 5-40 MG/DL HDL Cholesterol 23 L 40-60 MG/DL Test 08/01/21 05:06 08/01/21 06:54 08/01/21 07:52 08/01/21 08:52 Range/Units Glucometer 117 H 123 H 124 H 132 H 70-110 MG/DL Test 08/01/21 09:56 08/01/21 10:53 08/01/21 12:06 08/01/21 13:19 Range/Units Glucometer 180 H 278 H 141 H 133 H 70-110 MG/DL Test 08/01/21 14:15 08/01/21 15:05 08/01/21 15:56 Range/Units Glucometer 125 H 181 H 182 H 70-110 MG/DL Radiology ECHOCARDIOGRAM (08/01/2021): 1. This is a technically difficult study due to poor image quality. 2. Left ventricle: The cavity size is normal. There is moderate concentric hypertrophy. Systolic function is moderately reduced. The estimated ejection fraction is 35-40%. There is global hypokinesis. Doppler parameters are consistent with abnormal left ventricular relaxation (grade 1 diastolic dysfunction). 3. Right ventricle: The cavity size is normal. Systolic function is mildly reduced. TAPSE 1.3 cm. 4. Aortic valve: There is mild aortic valve sclerosis. 5. Pulmonary arteries: The estimated pulmonary artery systolic pressure is 32 mmHg assuming a right atrial pressure of 5 mmHg. ECG Impression ECG Comment Electrocardiogram obtained from the emergency room shows sinus rhythm with nonspecific anterior T wave changes. Diagnosis/Problems Diagnosis/Problems (1) Abnormal ECG Assessment & Plan: His initial electrocardiogram showed some borderline anterior T wave abnormalities. A follow-up electrocardiogram was somewhat improved. His troponin level was negative. He is not having chest pain. As such, I do not see any indication for any additional cardiac testing at this point in time. He should resume his outpatient cardiac medication. (2) Paroxysmal atrial fibrillation Assessment & Plan: He is in a sinus rhythm. He has been on a high dose of amiodarone. This increases the risk of possible toxic side effects. I will resume the amiodarone but at a dose of 100 mg daily which is more appropriate for long-term treatment of atrial fibrillation. I am not entirely sure why he is not on oral anticoagulation. (3) Coronary artery disease without angina pectoris Assessment & Plan: He is not having any angina and his troponin levels are negative. I have resumed aspirin, ticagrelor, and atorvastatin. (4) Cardiomyopathy Assessment & Plan: His ejection fraction is moderately impaired. Once he improves from the urinary tract infection with sepsis, I will consider starting low doses of the appropriate guideline directed medical therapy. For now, I am concerned that his blood pressure is too low and that may cause iatrogenic hypotension. I should also know, he was taking metoprolol tartrate at home. This should be changed to metoprolol succinate due to his left ventricular dysfunction. (5) Chronic systolic heart failure Assessment & Plan: He seems to be euvolemic at this point time. (6) Primary hypertension Assessment & Plan: Will resume his outpatient antihypertensive medication when his blood pressure improves. (7) Mixed hyperlipidemia Assessment & Plan: Continue statin medication. (8) Type 2 diabetes mellitus with complication Assessment & Plan: This is being managed by the hospitalist. SUSAN PHILLIPS JR, MD Aug 01, 2021 11:12
--- NOTE | 2021-08-01 11:48 | Tele-ICU Consult ---
History of Present Illness History of Present Illness Date Seen by Provider: Aug 01, 2021 Time Seen by Provider: 11:48 Date of Admission Allergies and Home Medications Allergies Coded Allergies: No Known Drug Allergies (Unverified , 12/14/17) Home Medications Amiodarone HCl 200 Mg Tablet, 200 MG PO BID take 1 twice a day Prescribed by: OTTO MULLIGAN on 01/06/20 1505 Aspirin 81 Mg Tablet.dr, 81 MG PO DAILY, (Reported) Atorvastatin Calcium 10 Mg Tablet, 10 MG PO DAILY, (Reported) Insulin Aspart 300 Units/3 Ml Solution, 15 UNITS SQ TIDAC PRN for HYPERGLYCEMIA, (Reported) LAST FILLED 06-20-2019 #1 VIAL/30 DAY SUPPLY Insulin Detemir 100 Unit/1 Ml Insuln.pen, 20 UNIT SQ HS PRN for HYPERGLYCEMIA, (Reported) LAST FILLED 05-13-2019 #1 VIAL Losartan Potassium 25 Mg Tablet, 25 MG PO DAILY, (Reported) Metformin HCl 1,000 Mg Tablet, 1,000 MG PO BID, (Reported) Metoprolol Tartrate 50 Mg Tablet, 50 MG PO BID Prescribed by: SHYANNE JANSEN on 01/06/20 1019 [place]-3/Dha/Epa/Fish Oil 1,000 Mg Capsule, 1,000 MG PO BID, (Reported) Ticagrelor 90 Mg Tablet, 90 MG PO BID, (Reported) LAST FILLED 11-11-2019 #60 Past Medical/Social/Family Hx Patient Social History Marrital Status: single Employed/Student: unemployed Tobacco Use?: No Tobacco type used: Cigarettes Smoking Status: Former Smoker Substance use?: No Alcohol Use?: Yes Alcohol type: Beer Alcohol Frequency: Couple times a week Pt stated abuse/neglect: No Immunizations Up To Date Influenza Vaccine Up-to-Date: No; Not Current First/Initial COVID19 Vaccinat: 12/24/20 Second COVID19 Vaccination Anshu: 02/13/21 Tetanus Booster (TDap): Unknown Date of Pneumonia Vaccine: Aug 03, 2011 Current Status Advance Directives: No Primary Language: Azeri Preferred Spoken Language: Tajik Past Medical History PMHx: Hepatitis C Liver transplant Diabetes mellitus type II CAD s/p stenting PSurgHx: 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 0.0oz. [id number]; 26.83 BMI Method:Stated Time of Focused Exam: 15:20 Exam Exam Patient acknowledged, consented, and participated in this virtual visit which was conducted using real time audio/video Vital Signs Date Time Temp Pulse Resp B/P (MAP) Pulse Ox O2 Delivery O2 Flow Rate FiO2 08/01/21 10:00 85 14 111/69 97 Room Air 08/01/21 09:00 74 11 117/75 98 Room Air 08/01/21 08:00 Room Air 08/01/21 08:00 64 16 109/64 97 Room Air 08/01/21 07:39 36.3 08/01/21 07:00 68 08/01/21 07:00 67 18 109/68 95 Room Air 08/01/21 06:00 63 21 95/59 97 Room Air 08/01/21 05:00 65 30 90/57 97 Room Air 08/01/21 04:00 80 12 115/76 98 Room Air 08/01/21 04:00 Room Air 08/01/21 04:00 36.4 Room Air 08/01/21 03:00 71 17 112/71 96 Room Air 08/01/21 02:00 75 16 117/80 97 Room Air 08/01/21 01:00 73 16 104/65 96 Room Air 08/01/21 01:00 72 08/01/21 00:00 36.6 Room Air 08/01/21 00:00 80 12 100/59 97 Room Air 07/31/21 23:59 Room Air 07/31/21 23:05 74 14 100/60 97 Room Air 07/31/21 23:00 74 14 100/60 97 Room Air 07/31/21 22:00 69 16 113/87 98 Room Air 07/31/21 21:00 71 16 100/61 98 Room Air 07/31/21 20:00 72 18 103/65 100 Room Air 07/31/21 20:00 Room Air 07/31/21 19:49 36.4 07/31/21 19:30 64 12 98/66 96 Room Air 07/31/21 19:00 67 14 101/81 98 Room Air 07/31/21 19:00 73 07/31/21 18:15 Room Air 07/31/21 18:00 72 20 91/66 94 07/31/21 13:00 35.7 70 18 77/45 (56) 98 I & O 08/01/21 07:00 Intake Total 4220 ml Output Total 850 ml Balance 3370 ml Height & Weight Height: 6'0.00" Weight: 240lbs. 0.0oz. [id number]; 26.83 BMI Method:Stated General Appearance: No Apparent Distress, Anxious, Chronically ill HEENT: PERRL/EOMI, Normal ENT Inspection, Pharynx Normal, Moist Mucous Membranes Neck: Full Range of Motion, Normal Inspection, Non Tender Respiratory: Chest Non Tender, Lungs Clear, Normal Breath Sounds, No Accessory Muscle Use, No Respiratory Distress Cardiovascular: Regular Rate, Rhythm, No Edema, No Gallop, No JVD, No Murmur, Normal Peripheral Pulses Capillary Refill: Less Than 3 Seconds Peripheral Pulses: 1+ Radial Pulses (R), 1+ Radial Pulses (L) Extremity: Normal Capillary Refill, Normal Inspection, Normal Range of Motion, Non Tender, No Calf Tenderness, No Pedal Edema Neurologic/Psychiatric: Alert, Oriented x3, No Motor/Sensory Deficits, Normal Mood/Affect Skin: Normal Color, Warm/Dry Lymphatic: No Adenopathy Results Lab Laboratory Tests 07/31/21 13:10 08/01/21 04:02 Assessment/Plan Assessment/Plan (Tele-ICU Physician , consultation) Available chart/ vitals / labs / Images reviewed H&P is from ER notes Patient's information available about PMH, Shx, Fhx allergy reviewed in EMR. ROS as per chart and RN report Video assessment done using teleICU camera, rest of exam as per RN Discussed with RN. 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 Discussed with RN to reach out if any questions or concerns A total of 33 minutes of critical care time was devoted to this patient today, required to treat and/or prevent further deterioration of critical care condition ( as above ) . NESS DUCKWORTH MD Aug 01, 2021 11:48
--- NOTE | 2021-08-01 12:02 | Progress Note - Hospitalist ---
Subjective HPI/CC On Admission Date Seen by Provider: Aug 01, 2021 Time Seen by Provider: 10:00 Chief complaint: Hypotension from UTI History of present illness: This is a 70-year-old white male [facility] who is known to me from 2 years ago admission for Rosangela felder who has a history of liver transplant who presented to the ER with hypotension. Patient was found to have a UTI as source of hypotension and will require central line along with pressor therapy and insulin drip due to [id number] diabetes. Subjective/Events-last exam Pt feels a lot better Off pressor therapy Cefepime maintained Insulin drip will be discontinued and Sub-Q insulin will be initiated Transferring to fourth floor Review of Systems General: Fatigue, Malaise Focused Exam Lactate Level 07/31/21 13:32: Lactic Acid Level 2.80*H 07/31/21 16:37: Lactic Acid Level 2.50*H 07/31/21 18:15: Lactic Acid Level 1.61 Time of Focused Exam: 15:20 Objective Exam Vital Signs Vital Signs Date Time Temp Pulse Resp B/P (MAP) Pulse Ox O2 Delivery O2 Flow Rate FiO2 08/02/21 04:24 36.2 75 18 112/67 96 Room Air Capillary Refill : Less Than 3 Seconds General Appearance: No Apparent Distress, WD/WN, Chronically ill Respiratory: Lungs Clear, Normal Breath Sounds Cardiovascular: Regular Rate, Rhythm Neurologic/Psychiatric: Alert, Oriented x3, No Motor/Sensory Deficits, Normal Mood/Affect Results/Procedures Lab Laboratory Tests 08/02/21 04:37 Patient resulted labs reviewed. Assessment/Plan Assessment and Plan Assess & Plan/Chief Complaint Assessment: Septic shock UTI Liver transplant status History of alcohol use CAD Atrial fibrillation? Acute kidney injury Plan: ICU Insulin drip Supportive care IV fluid Pressor therapy 08/01/2021: Transfer to fourth floor Change to subcu insulin DC insulin drip Cefepime Diagnosis/Problems Diagnosis/Problems (1) Septic shock (2) UTI (urinary tract infection) (3) Hypotension Status: Acute Qualifiers: Hypotension type: unspecified hypotension type Qualified Codes: I95.9 - Hypotension, unspecified (4) Diabetes mellitus type 2 with complications Status: Chronic KEITH CABALLERO DO Aug 01, 2021 12:02
[2021-08-01] MEDS ORDERED: TICA90TA PO (13:44)
[2021-08-01] MEDS ORDERED: AMIO200T65 PO (13:44)
[2021-08-01] MEDS ORDERED: METO50TA15 PO (13:44)
[2021-08-01] MEDS ORDERED: DIPH25TA65 PO ×2 (13:44)
[2021-08-01] MEDS: ENOXAPARIN 40 MG/0.4 ML (LOVENOX) SYR SC SCH (17:58)
[2021-08-01] MEDS: inSUlin ASPART (NovoLOG) 1 UNIT/0.01 ML (CHARGE PER UNIT) SC SCH ×2 (18:00→21:00)
[2021-08-01] MEDS: TICAGRELOR 90 MG TABLET (BRILINTA) PO SCH (20:02)
[2021-08-01] MEDS: AtorvaSTATin TABLET 10 MG TABLET PO SCH (20:02)
[2021-08-01] MEDS: MELATONIN 3 MG TABLET PO PRN (20:02)
[2021-08-02 04:52] LABS: BASOPHILS % (AUTO) 1 % (0-10); EOSINOPHILS # (AUTO) 0.2 10^3/uL (0.0-0.3); EOSINOPHILS % (AUTO) 4 % (0-10); HEMATOCRIT 36 % (40-54); HEMOGLOBIN 11.9 g/dL (13.3-17.7); LYMPHOCYTES # (AUTO) 1.5 10^3/uL (1.0-4.0); LYMPHOCYTES % (AUTO) 27 % (12-44); MEAN CORPUSCULAR HEMOGLOBIN 29 pg (25-34); MEAN CORPUSCULAR HGB CONC 33 g/dL (32-36); MEAN CORPUSCULAR VOLUME 87 fL (80-99); MONOCYTES # (AUTO) 0.6 10^3/uL (0.0-1.0); MONOCYTES % (AUTO) 10 % (0-12); NEUTROPHILS # (AUTO) 3.4 10^3/uL (1.8-7.8); NEUTROPHILS % (AUTO) 59 % (42-75); PLATELET COUNT 299 10^3/uL (130-400); WHITE BLOOD COUNT 5.8 10^3/uL (4.3-11.0)
[2021-08-02 05:00] LABS: ALBUMIN 2.9 GM/DL (3.2-4.5); POTASSIUM 3.8 MMOL/L (3.6-5.0)
[2021-08-02 05:01] LABS: CALCIUM 8.5 MG/DL (8.5-10.1)
[2021-08-02 05:04] LABS: BILIRUBIN,TOTAL 0.7 MG/DL (0.1-1.0)
[2021-08-02 05:06] LABS: CREATININE SERUM 0.82 MG/DL (0.60-1.30)
[2021-08-02] MEDS: CEFEPIME INJECTION 1,000 MG in NS (IVPB) 50 ML IV SCH ×4 (05:18→23:39)
[2021-08-02] MEDS: MULTIVIT W/MINERALS TAB (THERAGRAN M) PO SCH (05:18)
[2021-08-02] MEDS: THIAMINE 100 MG (VITAMIN B-1) TAB PO SCH (05:18)
[2021-08-02] MEDS: inSUlin ASPART (NovoLOG) 1 UNIT/0.01 ML (CHARGE PER UNIT) SC SCH ×4 (05:21→21:57)
[2021-08-02] MEDS: SENNA W/DOCUSATE (SENOKOT S) TABLET PO SCH ×2 (08:56→20:54)
[2021-08-02] MEDS: FOLIC ACID 1 MG TAB PO SCH (08:57)
[2021-08-02] MEDS: MAGNESIUM OXIDE (MAG-OX)400 MG TAB PO SCH ×2 (08:57→20:52)
[2021-08-02] MEDS: TICAGRELOR 90 MG TABLET (BRILINTA) PO SCH ×2 (08:57→20:52)
[2021-08-02] MEDS: polyethylene glycoL POWDER 17 GM (MIRALAX) PACK PO SCH ×2 (08:57→20:54)
[2021-08-02] MEDS ORDERED: ASPIRIN E.C. 81 MG (ECOTRIN) TAB PO SCH (09:00)
[2021-08-02] MEDS ORDERED: AMIODARONE 200 MG (CORDARONE) TAB PO SCH (09:00)
--- NOTE | 2021-08-02 11:13 | Progress Note - Hospitalist ---
Subjective HPI/CC On Admission Date Seen by Provider: Aug 02, 2021 Time Seen by Provider: 11:00 Chief complaint: Hypotension from UTI History of present illness: This is a 70-year-old white male [facility] who is known to me from 2 years ago admission for Rosangela felder who has a history of liver transplant who presented to the ER with hypotension. Patient was found to have a UTI as source of hypotension and will require central line along with pressor therapy and insulin drip due to [id number] diabetes. Subjective/Events-last exam Patient doing pretty well Blood sugars improved Cefepime maintained Urine culture pending Review of Systems General: Fatigue, Malaise Focused Exam Lactate Level 07/31/21 13:32: Lactic Acid Level 2.80*H 07/31/21 16:37: Lactic Acid Level 2.50*H 07/31/21 18:15: Lactic Acid Level 1.61 Time of Focused Exam: 15:20 Objective Exam Vital Signs Vital Signs Date Time Temp Pulse Resp B/P (MAP) Pulse Ox O2 Delivery O2 Flow Rate FiO2 08/02/21 15:30 36.4 86 20 102/56 96 Room Air Capillary Refill : Less Than 3 Seconds General Appearance: No Apparent Distress, WD/WN, Chronically ill Respiratory: Lungs Clear, Normal Breath Sounds Cardiovascular: Regular Rate, Rhythm, No Edema Neurologic/Psychiatric: Alert, Oriented x3 Results/Procedures Lab Laboratory Tests 08/02/21 04:37 Patient resulted labs reviewed. Assessment/Plan Assessment and Plan Assess & Plan/Chief Complaint Assessment: Septic shock UTI Liver transplant status History of alcohol use CAD Atrial fibrillation? Acute kidney injury Plan: ICU Insulin drip Supportive care IV fluid Pressor therapy 08/01/2021: Transfer to fourth floor Change to subcu insulin DC insulin drip Cefepime 08/02/2021: Cefepime Await urine culture Blood sugar management Diagnosis/Problems Diagnosis/Problems (1) Septic shock (2) UTI (urinary tract infection) (3) Hypotension Status: Acute Qualifiers: Hypotension type: unspecified hypotension type Qualified Codes: I95.9 - Hypotension, unspecified (4) Diabetes mellitus type 2 with complications Status: Chronic KEITH CABALLERO DO Aug 02, 2021 11:12
--- NOTE | 2021-08-02 12:52 | Cardiology Progress Note ---
Progress Note-Cardiology Events since last exam Date Seen by Provider: Aug 02, 2021 Time Seen by Provider: 12:50 Events since last exam I am seeing him due to history of coronary artery disease and atrial fibrill ation with an abnormal electrocardiogram at the time of admission. He is now on the medical floor. He was sitting up in bed having lunch. He denied chest pain, dyspnea, palpitations, syncope, or ankle edema. Certain portions of this document may have been dictated utilizing voice recognition technology. Inherent to this technology, typographical and grammatical errors may exist. As much as I am diligent to identify and correct these mistakes, some errors may remain in the document. Vitals Last set of Vitals Signs Vital Signs 08/02/21 08/02/21 11:15 12:27 Temp 36.4 Pulse 76 Resp 18 B/P (MAP) 99/59 Pulse Ox 95 O2 Delivery Room Air Labs Labs Laboratory Tests 08/02/21 04:37 Exam Vital Signs Vital Signs Date Time Temp Pulse Resp B/P (MAP) Pulse Ox O2 Delivery O2 Flow Rate FiO2 08/02/21 12:27 76 08/02/21 11:15 36.4 18 99/59 95 Room Air Physical Exam General: Alert. No acute distress. Eye: No xanthelasma. HENT: Normocephalic. Neck: Jugular venous pressure does not appear elevated. Respiratory: Lungs are clear to auscultation. Respirations are non-labored. Breath sounds are equal. Symmetrical chest wall expansion. Cardiovascular: Normal rate. Regular rhythm. No murmur. No gallop. No edema. Gastrointestinal: Soft. Normal bowel sounds. Skin: Warm. Dry. Neurologic: Alert and oriented to person, place, time. Cranial nerves 3-11 grossly intact. Psychiatric: Cooperative. Appropriate mood & affect. Labs Laboratory Tests Test 08/01/21 14:15 08/01/21 15:05 08/01/21 15:56 08/01/21 21:53 Range/Units Glucometer 125 H 181 H 182 H 160 H 70-110 MG/DL Test 08/02/21 04:37 08/02/21 10:21 Range/Units White Blood Count 5.8 4.3-11.0 10^3/uL Red Blood Count 4.09 L 4.30-5.52 10^6/uL Hemoglobin 11.9 L 13.3-17.7 g/dL Hematocrit 36 L 40-54 % Mean Corpuscular Volume 87 80-99 fL Mean Corpuscular Hemoglobin 29 25-34 pg Mean Corpuscular Hemoglobin Concent 33 32-36 g/dL Red Cell Distribution Width 13.4 10.0-14.5 % Platelet Count 299 130-400 10^3/uL Mean Platelet Volume 11.0 9.0-12.2 fL Immature Granulocyte % (Auto) 0 % Neutrophils (%) (Auto) 59 42-75 % Lymphocytes (%) (Auto) 27 12-44 % Monocytes (%) (Auto) 10 0-12 % Eosinophils (%) (Auto) 4 0-10 % Basophils (%) (Auto) 1 0-10 % Neutrophils # (Auto) 3.4 1.8-7.8 10^3/uL Lymphocytes # (Auto) 1.5 1.0-4.0 10^3/uL Monocytes # (Auto) 0.6 0.0-1.0 10^3/uL Eosinophils # (Auto) 0.2 0.0-0.3 10^3/uL Basophils # (Auto) 0.0 0.0-0.1 10^3/uL Immature Granulocyte # (Auto) 0.0 0.0-0.1 10^3/uL Sodium Level 139 135-145 MMOL/L Potassium Level 3.8 3.6-5.0 MMOL/L Chloride Level 108 H 98-107 MMOL/L Carbon Dioxide Level 24 21-32 MMOL/L Anion Gap 7 5-14 MMOL/L Blood Urea Nitrogen 12 7-18 MG/DL Creatinine 0.82 0.60-1.30 MG/DL Estimat Glomerular Filtration Rate 93 BUN/Creatinine Ratio 15 Glucose Level 165 H 70-105 MG/DL Calcium Level 8.5 8.5-10.1 MG/DL Corrected Calcium 9.4 8.5-10.1 MG/DL Total Bilirubin 0.7 0.1-1.0 MG/DL Aspartate Amino Transf (AST/SGOT) 22 5-34 U/L Alanine Aminotransferase (ALT/SGPT) 33 0-55 U/L Alkaline Phosphatase 92 40-136 U/L Total Protein 6.0 L 6.4-8.2 GM/DL Albumin 2.9 L 3.2-4.5 GM/DL Glucometer 250 H 70-110 MG/DL Diagnosis/Problems Diagnosis/Problems (1) Abnormal ECG Assessment & Plan: His initial electrocardiogram showed some borderline anterior T wave abnormalities. A follow-up electrocardiogram was somewhat improved. His troponin level was negative. He is not having chest pain. As such, I do not see any indication for any additional cardiac testing at this point in time. He should resume his outpatient cardiac medication. (2) Paroxysmal atrial fibrillation Assessment & Plan: He is in a sinus rhythm. He has been on a high dose of amiodarone. This increases the risk of possible toxic side effects. I de creased his amiodarone to 100 mg daily which is more appropriate for long-term treatment of atrial fibrillation. I am not entirely sure why he is not on oral anticoagulation. He has not been recently seen in our office. (3) Coronary artery disease without angina pectoris Assessment & Plan: He is not having any angina and his troponin levels are negative. I have resumed aspirin, ticagrelor, and atorvastatin. (4) Cardiomyopathy Assessment & Plan: His ejection fraction is moderately impaired. Once he impro ves from the urinary tract infection with sepsis, I will consider starting low doses of the appropriate guideline directed medical therapy. For now, I am concerned that his blood pressure is too low and restarting metoprolol and lisinopril now may cause iatrogenic hypotension. I should also note, he was taking metoprolol tartrate at home. This should be changed to metoprolol succinate due to his left ventricular dysfunction. (5) Chronic systolic heart failure Assessment & Plan: He seems to be euvolemic at this point time. (6) Primary hypertension Assessment & Plan: Will resume his outpatient antihypertensive medication when his blood pressure improves. (7) Mixed hyperlipidemia Assessment & Plan: Continue statin medication. (8) Type 2 diabetes mellitus with complication Assessment & Plan: This is being managed by the hospitalist. SUSAN PHILLIPS JR, MD Aug 02, 2021 12:52
[2021-08-02] MEDS: ENOXAPARIN 40 MG/0.4 ML (LOVENOX) SYR SC SCH (17:58)
[2021-08-02] MEDS: AtorvaSTATin TABLET 10 MG TABLET PO SCH (20:52)
[2021-08-03] MEDS: THIAMINE 100 MG (VITAMIN B-1) TAB PO SCH (05:25)
[2021-08-03] MEDS: CEFEPIME INJECTION 1,000 MG in NS (IVPB) 50 ML IV SCH ×3 (05:25→17:29)
[2021-08-03] MEDS: MULTIVIT W/MINERALS TAB (THERAGRAN M) PO SCH (05:25)
[2021-08-03 05:44] LABS: BASOPHILS % (AUTO) 1 % (0-10); EOSINOPHILS # (AUTO) 0.3 10^3/uL (0.0-0.3); EOSINOPHILS % (AUTO) 5 % (0-10); HEMATOCRIT 36 % (40-54); LYMPHOCYTES # (AUTO) 1.7 10^3/uL (1.0-4.0); LYMPHOCYTES % (AUTO) 30 % (12-44); MEAN CORPUSCULAR HEMOGLOBIN 29 pg (25-34); MEAN CORPUSCULAR HGB CONC 34 g/dL (32-36); MEAN CORPUSCULAR VOLUME 88 fL (80-99); MEAN PLATELET VOLUME 10.8 fL (9.0-12.2); MONOCYTES # (AUTO) 0.7 10^3/uL (0.0-1.0); MONOCYTES % (AUTO) 12 % (0-12); NEUTROPHILS # (AUTO) 2.9 10^3/uL (1.8-7.8); NEUTROPHILS % (AUTO) 52 % (42-75); PLATELET COUNT 298 10^3/uL (130-400); WHITE BLOOD COUNT 5.6 10^3/uL (4.3-11.0)
--- NOTE | 2021-08-03 05:56 | Progress Note - Hospitalist ---
Subjective HPI/CC On Admission Date Seen by Provider: Aug 03, 2021 Time Seen by Provider: 10:30 Chief complaint: Hypotension from UTI History of present illness: This is a 70-year-old white male [facility] who is known to me from 2 years ago admission for AEvelyn felder who has a history of liver transplant who presented to the ER with hypotension. Patient was found to have a UTI as source of hypotension and will require central line along with pressor therapy and insulin drip due to [id number] diabetes. Subjective/Events-last exam Patient doing well Awaiting urine culture Blood sugars better Check meds and labs Review of Systems General: Fatigue, Malaise Focused Exam Lactate Level Time of Focused Exam: 15:20 Objective Exam Vital Signs Vital Signs Date Time Temp Pulse Resp B/P (MAP) Pulse Ox O2 Delivery O2 Flow Rate FiO2 08/03/21 15:41 36.4 72 18 122/72 96 Room Air Capillary Refill : Less Than 3 Seconds General Appearance: No Apparent Distress, WD/WN, Chronically ill Respiratory: Lungs Clear, Normal Breath Sounds Cardiovascular: Regular Rate, Rhythm Neurologic/Psychiatric: Alert, Oriented x3, No Motor/Sensory Deficits, Normal Mood/Affect Results/Procedures Lab Laboratory Tests 08/03/21 05:35 Patient resulted labs reviewed. Assessment/Plan Assessment and Plan Assess & Plan/Chief Complaint Assessment: Septic shock UTI Liver transplant status History of alcohol use CAD Atrial fibrillation? Acute kidney injury Plan: ICU Insulin drip Supportive care IV fluid Pressor therapy 08/01/2021: Transfer to fourth floor Change to subcu insulin DC insulin drip Cefepime 08/02/2021: Cefepime Await urine culture Blood sugar management 08/03/2021: Await urine culture Diagnosis/Problems Diagnosis/Problems (1) Septic shock (2) UTI (urinary tract infection) (3) Hypotension Status: Acute Qualifiers: Hypotension type: unspecified hypotension type Qualified Codes: I95.9 - Hypotension, unspecified (4) Diabetes mellitus type 2 with complications Status: Chronic KEITH CABALLERO DO Aug 03, 2021 05:56
[2021-08-03] MEDS: inSUlin ASPART (NovoLOG) 1 UNIT/0.01 ML (CHARGE PER UNIT) SC SCH ×4 (06:00→21:19)
[2021-08-03 06:17] LABS: POTASSIUM 4.1 MMOL/L (3.6-5.0)
[2021-08-03 06:19] LABS: CALCIUM 8.6 MG/DL (8.5-10.1)
[2021-08-03 06:20] LABS: TOTAL PROTEIN 6.3 GM/DL (6.4-8.2)
[2021-08-03 06:22] LABS: BILIRUBIN,TOTAL 0.5 MG/DL (0.1-1.0)
[2021-08-03 06:23] LABS: CREATININE SERUM 0.81 MG/DL (0.60-1.30)
[2021-08-03] MEDS: inSUlin ASPART (NovoLOG) 1 UNIT/0.01 ML (CHARGE PER UNIT) SQ SCH ×3 (06:50→17:29)
[2021-08-03] MEDS: ASPIRIN E.C. 81 MG (ECOTRIN) TAB PO SCH (08:07)
[2021-08-03] MEDS: SENNA W/DOCUSATE (SENOKOT S) TABLET PO SCH ×2 (08:07→19:31)
[2021-08-03] MEDS: OMEGA 3 (FISH OIL) 1000 MG CAP PO SCH ×2 (08:08→17:30)
[2021-08-03] MEDS: LOSARTAN 25 MG (COZAAR) TAB PO SCH (08:08)
[2021-08-03] MEDS: metFORMIN 500 MG (GLUCOPHAGE) TAB PO SCH ×2 (08:08→17:30)
[2021-08-03] MEDS: MAGNESIUM OXIDE (MAG-OX)400 MG TAB PO SCH (08:09)
[2021-08-03] MEDS: polyethylene glycoL POWDER 17 GM (MIRALAX) PACK PO SCH ×2 (08:09→19:31)
[2021-08-03] MEDS: FOLIC ACID 1 MG TAB PO SCH (08:09)
[2021-08-03] MEDS: AMIODARONE 200 MG (CORDARONE) TAB PO SCH (08:09)
[2021-08-03] MEDS: AtorvaSTATin TABLET 10 MG TABLET PO SCH (08:09)
[2021-08-03] MEDS: TICAGRELOR 90 MG TABLET (BRILINTA) PO SCH ×3 (08:10→21:24)
[2021-08-03] MEDS ORDERED: meTOprolol TARTRATE 50 MG (LOPRESSOR) TAB PO SCH (09:00)
--- NOTE | 2021-08-03 15:07 | Cardiology Progress Note ---
Progress Note-Cardiology Events since last exam Date Seen by Provider: Aug 03, 2021 Time Seen by Provider: 15:02 Events since last exam I am seeing him due to a borderline abnormal electrocardiogram in the setting of known coronary artery disease and paroxysmal atrial fibrillation. He remains on the general medical floor. He has been ambulating in his room without difficulty. He denies chest discomfort, dyspnea, palpitations, syncope, or ankle edema. Certain portions of this document may have been dictated utilizing voice recognition technology. Inherent to this technology, typographical and grammatical errors may exist. As much as I am diligent to identify and correct these mistakes, some errors may remain in the document. Vitals Last set of Vitals Signs Vital Signs 08/03/21 08/03/21 11:30 12:56 Temp 36.6 Pulse 72 Resp 16 B/P (MAP) 125/74 Pulse Ox 99 O2 Delivery Room Air Labs Labs Laboratory Tests 08/03/21 05:35 Exam Vital Signs Vital Signs Date Time Temp Pulse Resp B/P (MAP) Pulse Ox O2 Delivery O2 Flow Rate FiO2 08/03/21 12:56 72 08/03/21 11:30 36.6 16 125/74 99 Room Air Physical Exam General: Alert. No acute distress. Eye: No xanthelasma. HENT: Normocephalic. Neck: Jugular venous pressure does not appear elevated. Respiratory: Lungs are clear to auscultation. Respirations are non-labored. Breath sounds are equal. Symmetrical chest wall expansion. Cardiovascular: Normal rate. Regular rhythm. No murmur. No gallop. No edema. Gastrointestinal: Soft. Normal bowel sounds. Skin: Warm. Dry. Neurologic: Alert and oriented to person, place, time. Cranial nerves 3-11 grossly intact. Psychiatric: Cooperative. Appropriate mood & affect. Labs Laboratory Tests Test 08/02/21 15:32 08/02/21 20:08 08/02/21 21:51 08/03/21 05:21 Range/Units Glucometer 180 H 369 H 327 H 228 H 70-110 MG/DL Test 08/03/21 05:35 Range/Units White Blood Count 5.6 4.3-11.0 10^3/uL Red Blood Count 4.08 L 4.30-5.52 10^6/uL Hemoglobin 12.0 L 13.3-17.7 g/dL Hematocrit 36 L 40-54 % Mean Corpuscular Volume 88 80-99 fL Mean Corpuscular Hemoglobin 29 25-34 pg Mean Corpuscular Hemoglobin Concent 34 32-36 g/dL Red Cell Distribution Width 13.7 10.0-14.5 % Platelet Count 298 130-400 10^3/uL Mean Platelet Volume 10.8 9.0-12.2 fL Immature Granulocyte % (Auto) 0 % Neutrophils (%) (Auto) 52 42-75 % Lymphocytes (%) (Auto) 30 12-44 % Monocytes (%) (Auto) 12 0-12 % Eosinophils (%) (Auto) 5 0-10 % Basophils (%) (Auto) 1 0-10 % Neutrophils # (Auto) 2.9 1.8-7.8 10^3/uL Lymphocytes # (Auto) 1.7 1.0-4.0 10^3/uL Monocytes # (Auto) 0.7 0.0-1.0 10^3/uL Eosinophils # (Auto) 0.3 0.0-0.3 10^3/uL Basophils # (Auto) 0.0 0.0-0.1 10^3/uL Immature Granulocyte # (Auto) 0.0 0.0-0.1 10^3/uL Sodium Level 137 135-145 MMOL/L Potassium Level 4.1 3.6-5.0 MMOL/L Chloride Level 105 98-107 MMOL/L Carbon Dioxide Level 23 21-32 MMOL/L Anion Gap 9 5-14 MMOL/L Blood Urea Nitrogen 19 H 7-18 MG/DL Creatinine 0.81 0.60-1.30 MG/DL Estimat Glomerular Filtration Rate 95 BUN/Creatinine Ratio 23 Glucose Level 241 H 70-105 MG/DL Calcium Level 8.6 8.5-10.1 MG/DL Corrected Calcium 9.4 8.5-10.1 MG/DL Total Bilirubin 0.5 0.1-1.0 MG/DL Aspartate Amino Transf (AST/SGOT) 26 5-34 U/L Alanine Aminotransferase (ALT/SGPT) 34 0-55 U/L Alkaline Phosphatase 112 40-136 U/L Total Protein 6.3 L 6.4-8.2 GM/DL Albumin 3.0 L 3.2-4.5 GM/DL Diagnosis/Problems Diagnosis/Problems (1) Abnormal ECG Assessment & Plan: His initial electrocardiogram showed some borderline anterior T wave abnormalities. A follow-up electrocardiogram was somewhat improved. His troponin level was negative. He is not having chest pain. As such, I do not see any indication for any additional cardiac testing at this point in time. He should continue his regular outpatient cardiac medication. (2) Paroxysmal atrial fibrillation Assessment & Plan: He is in a sinus rhythm. He had been on a high dose of amiodarone which will increase the risk of possible toxic side effects. I decreased his amiodarone to 100 mg daily which is more appropriate for long-term treatment of atrial fibrillation. I am not entirely sure why he is not on oral anticoagulation. He has not been recently seen in our office. I will make sure he is scheduled for a follow-up appointment in our office with his regular chucker. (3) Coronary artery disease without angina pectoris Assessment & Plan: He is not having any angina and his troponin levels are negative. I have resumed aspirin, ticagrelor, and atorvastatin. He was on metoprolol tartrate at home which has been restarted. In light of his cardiomyopathy, I will change this over to metoprolol succinate. (4) Cardiomyopathy Assessment & Plan: His ejection fraction is moderately impaired. His blood pressure has improved and he is now written for losartan and metoprolol titrate. As above, due to the left ventricular dysfunction, he should be on metoprolol succinate as opposed to metoprolol tartrate. I have made this change. I will also add spironolactone. (5) Chronic systolic heart failure Assessment & Plan: He seems to be euvolemic at this point time. Continue with guideline directed medical therapy with changes noted above. (6) Primary hypertension Assessment & Plan: Losartan and beta-cris have been resumed as outlined above. (7) Mixed hyperlipidemia Assessment & Plan: Continue statin medication. (8) Type 2 diabetes mellitus with complication Assessment & Plan: This is being managed by the hospitalist. SUSAN PHILLIPS JR, MD Aug 03, 2021 15:07
[2021-08-03] MEDS ORDERED: SPIRONOLACTONE 25 MG (ALDACTONE) TAB PO ONE (15:15)
[2021-08-03] MEDS: ENOXAPARIN 40 MG/0.4 ML (LOVENOX) SYR SC SCH (17:29)
[2021-08-03] MEDS ORDERED: AMOXICILLIN 500 MG (POLYMOX) CAP PO ONE (20:09)
[2021-08-03] MEDS ORDERED: diphenhydrAMINE 25 MG TAB (BENADRYL) PO SCH (21:00)
[2021-08-03] MEDS: AMOXICILLIN 500 MG (POLYMOX) CAP PO SCH (21:23)
[2021-08-04 05:13] LABS: BASOPHILS % (AUTO) 1 % (0-10); EOSINOPHILS # (AUTO) 0.4 10^3/uL (0.0-0.3); EOSINOPHILS % (AUTO) 7 % (0-10); HEMATOCRIT 36 % (40-54); HEMOGLOBIN 12.2 g/dL (13.3-17.7); LYMPHOCYTES # (AUTO) 1.7 10^3/uL (1.0-4.0); LYMPHOCYTES % (AUTO) 31 % (12-44); MEAN CORPUSCULAR HEMOGLOBIN 30 pg (25-34); MEAN CORPUSCULAR HGB CONC 34 g/dL (32-36); MEAN CORPUSCULAR VOLUME 88 fL (80-99); MEAN PLATELET VOLUME 10.9 fL (9.0-12.2); MONOCYTES # (AUTO) 0.7 10^3/uL (0.0-1.0); MONOCYTES % (AUTO) 12 % (0-12); NEUTROPHILS # (AUTO) 2.7 10^3/uL (1.8-7.8); NEUTROPHILS % (AUTO) 49 % (42-75); PLATELET COUNT 308 10^3/uL (130-400); WHITE BLOOD COUNT 5.5 10^3/uL (4.3-11.0)
[2021-08-04 05:24] LABS: ALBUMIN 3.1 GM/DL (3.2-4.5); POTASSIUM 4.2 MMOL/L (3.6-5.0)
[2021-08-04 05:25] LABS: CALCIUM 8.9 MG/DL (8.5-10.1)
[2021-08-04 05:26] LABS: TOTAL PROTEIN 6.6 GM/DL (6.4-8.2)
[2021-08-04 05:28] LABS: BILIRUBIN,TOTAL 0.4 MG/DL (0.1-1.0)
[2021-08-04 05:30] LABS: CREATININE SERUM 0.77 MG/DL (0.60-1.30)
[2021-08-04] MEDS: inSUlin ASPART (NovoLOG) 1 UNIT/0.01 ML (CHARGE PER UNIT) SC SCH ×2 (05:42→11:23)
[2021-08-04] MEDS: inSUlin ASPART (NovoLOG) 1 UNIT/0.01 ML (CHARGE PER UNIT) SQ SCH ×2 (06:36→12:42)
[2021-08-04] MEDS: MULTIVIT W/MINERALS TAB (THERAGRAN M) PO SCH (06:36)
--- NOTE | 2021-08-04 07:20 | Progress Note - Hospitalist ---
Subjective HPI/CC On Admission Date Seen by Provider: Aug 04, 2021 Chief complaint: Hypotension from UTI History of present illness: This is a 70-year-old white male [facility] who is known to me from 2 years ago admission for A. emerita who has a history of liver transplant who presented to the ER with hypotension. Patient was found to have a UTI as source of hypotension and will require central line along with pressor therapy and insulin drip due to [id number] diabetes. Focused Exam Time of Focused Exam: 15:20 Objective Exam Vital Signs Vital Signs Date Time Temp Pulse Resp B/P (MAP) Pulse Ox O2 Delivery O2 Flow Rate FiO2 08/04/21 09:00 Room Air 08/04/21 07:34 36.4 83 22 104/56 97 Capillary Refill : Less Than 3 Seconds Results/Procedures Lab Laboratory Tests 08/04/21 05:00 Patient resulted labs reviewed. Assessment/Plan Assessment and Plan Assess & Plan/Chief Complaint Assessment: Septic shock UTI Liver transplant status History of alcohol use CAD Atrial fibrillation? Acute kidney injury Plan: ICU Insulin drip Supportive care IV fluid Pressor therapy 08/01/2021: Transfer to fourth floor Change to subcu insulin DC insulin drip Cefepime 08/02/2021: Cefepime Await urine culture Blood sugar management 08/03/2021: Await urine culture Diagnosis/Problems Diagnosis/Problems (1) Septic shock (2) UTI (urinary tract infection) (3) Hypotension Status: Acute Qualifiers: Hypotension type: unspecified hypotension type Qualified Codes: I95.9 - Hypotension, unspecified (4) Diabetes mellitus type 2 with complications Status: Chronic KEITH CABALLERO DO Aug 04, 2021 07:19
[2021-08-04] MEDS ORDERED: meTOproloL SUCCINATE 50 MG (TOPROL XL) TAB PO SCH (09:00)
[2021-08-04] MEDS ORDERED: SPIRONOLACTONE 25 MG (ALDACTONE) TAB PO SCH (09:00)
[2021-08-04] MEDS: AtorvaSTATin TABLET 10 MG TABLET PO SCH (09:15)
[2021-08-04] MEDS: ASPIRIN E.C. 81 MG (ECOTRIN) TAB PO SCH (09:15)
[2021-08-04] MEDS: AMIODARONE 200 MG (CORDARONE) TAB PO SCH (09:16)
[2021-08-04] MEDS: OMEGA 3 (FISH OIL) 1000 MG CAP PO SCH (09:16)
[2021-08-04] MEDS: AMOXICILLIN 500 MG (POLYMOX) CAP PO SCH ×2 (09:16→12:42)
[2021-08-04] MEDS: SENNA W/DOCUSATE (SENOKOT S) TABLET PO SCH (09:16)
[2021-08-04] MEDS: metFORMIN 500 MG (GLUCOPHAGE) TAB PO SCH (09:16)
[2021-08-04] MEDS: LOSARTAN 25 MG (COZAAR) TAB PO SCH (09:16)
[2021-08-04] MEDS: TICAGRELOR 90 MG TABLET (BRILINTA) PO SCH ×2 (09:16→09:30)
[2021-08-04] MEDS: FOLIC ACID 1 MG TAB PO SCH (09:16)
[2021-08-04] MEDS: polyethylene glycoL POWDER 17 GM (MIRALAX) PACK PO SCH (09:17)
--- NOTE | 2021-08-04 11:28 | Cardiology Progress Note ---
Progress Note-Cardiology Events since last exam Date Seen by Provider: Aug 04, 2021 Time Seen by Provider: 11:27 Events since last exam I am following him due to borderline abnormal electrocardiogram and history of atrial fibrillation. I decreased his dose of amiodarone. He has not had any significant arrhythmias on telemetry. He denies chest discomfort, dyspnea, palpitations, syncope, or ankle edema. Certain portions of this document may have been dictated utilizing voice recognition technology. Inherent to this technology, typographical and grammatical errors may exist. As much as I am diligent to identify and correct these mistakes, some errors may remain in the document. Vitals Last set of Vitals Signs Vital Signs 08/04/21 08/04/21 07:34 09:00 Temp 36.4 Pulse 83 Resp 22 B/P (MAP) 104/56 Pulse Ox 97 O2 Delivery Room Air Labs Labs Laboratory Tests 08/04/21 05:00 Exam Vital Signs Vital Signs Date Time Temp Pulse Resp B/P (MAP) Pulse Ox O2 Delivery O2 Flow Rate FiO2 08/04/21 09:00 Room Air 08/04/21 07:34 36.4 83 22 104/56 97 Physical Exam General: Alert. No acute distress. Eye: No xanthelasma. HENT: Normocephalic. Neck: Jugular venous pressure does not appear elevated. Respiratory: Lungs are clear to auscultation. Respirations are non-labored. Breath sounds are equal. Symmetrical chest wall expansion. Cardiovascular: Normal rate. Regular rhythm. No murmur. No gallop. No edema. Gastrointestinal: Soft. Normal bowel sounds. Skin: Warm. Dry. Neurologic: Alert and oriented to person, place, time. Cranial nerves 3-11 grossly intact. Psychiatric: Cooperative. Appropriate mood & affect. Labs Laboratory Tests Test 08/03/21 15:44 08/03/21 21:15 08/04/21 05:00 08/04/21 11:06 Range/Units Glucometer 79 111 H 151 H 70-110 MG/DL White Blood Count 5.5 4.3-11.0 10^3/uL Red Blood Count 4.14 L 4.30-5.52 10^6/uL Hemoglobin 12.2 L 13.3-17.7 g/dL Hematocrit 36 L 40-54 % Mean Corpuscular Volume 88 80-99 fL Mean Corpuscular Hemoglobin 30 25-34 pg Mean Corpuscular Hemoglobin Concent 34 32-36 g/dL Red Cell Distribution Width 13.5 10.0-14.5 % Platelet Count 308 130-400 10^3/uL Mean Platelet Volume 10.9 9.0-12.2 fL Immature Granulocyte % (Auto) 0 % Neutrophils (%) (Auto) 49 42-75 % Lymphocytes (%) (Auto) 31 12-44 % Monocytes (%) (Auto) 12 0-12 % Eosinophils (%) (Auto) 7 0-10 % Basophils (%) (Auto) 1 0-10 % Neutrophils # (Auto) 2.7 1.8-7.8 10^3/uL Lymphocytes # (Auto) 1.7 1.0-4.0 10^3/uL Monocytes # (Auto) 0.7 0.0-1.0 10^3/uL Eosinophils # (Auto) 0.4 H 0.0-0.3 10^3/uL Basophils # (Auto) 0.0 0.0-0.1 10^3/uL Immature Granulocyte # (Auto) 0.0 0.0-0.1 10^3/uL Sodium Level 137 135-145 MMOL/L Potassium Level 4.2 3.6-5.0 MMOL/L Chloride Level 104 98-107 MMOL/L Carbon Dioxide Level 25 21-32 MMOL/L Anion Gap 8 5-14 MMOL/L Blood Urea Nitrogen 19 H 7-18 MG/DL Creatinine 0.77 0.60-1.30 MG/DL Estimat Glomerular Filtration Rate 100 BUN/Creatinine Ratio 25 Glucose Level 226 H 70-105 MG/DL Calcium Level 8.9 8.5-10.1 MG/DL Corrected Calcium 9.6 8.5-10.1 MG/DL Total Bilirubin 0.4 0.1-1.0 MG/DL Aspartate Amino Transf (AST/SGOT) 52 H 5-34 U/L Alanine Aminotransferase (ALT/SGPT) 49 0-55 U/L Alkaline Phosphatase 108 40-136 U/L Total Protein 6.6 6.4-8.2 GM/DL Albumin 3.1 L 3.2-4.5 GM/DL Diagnosis/Problems Diagnosis/Problems (1) Abnormal ECG Assessment & Plan: His initial electrocardiogram showed some borderline anterior T wave abnormalities. A follow-up electrocardiogram was somewhat improved. His troponin level was negative. He is not having chest pain. As s uch, I do not see any indication for any additional cardiac testing at this point in time. He should continue his regular outpatient cardiac medication. (2) Paroxysmal atrial fibrillation Assessment & Plan: He has been in sinus rhythm. He had been on a high dose of amiodarone which will increase the risk of possible toxic side effects. I decreased his amiodarone to 100 mg daily which is more appropriate for long-term treatment of atrial fibrillation. I am not entirely sure why he is not on oral anticoagulation. He has not been recently seen in our office. I will make sure he is scheduled for a follow-up appointment in our office with his regular mycology teacher. (3) Coronary artery disease without angina pectoris Assessment & Plan: He is not having any angina and his troponin levels are negative. I have resumed aspirin, ticagrelor, and atorvastatin. He was on metoprolol tartrate at home which has been restarted. In light of his cardiomyopathy, I will change this over to metoprolol succinate. (4) Cardiomyopathy Assessment & Plan: His ejection fraction is moderately impaired. His blood pressure has improved and he is now written for losartan and metoprolol titrate. As above, due to the left ventricular dysfunction, he should be on metoprolol succinate as opposed to metoprolol tartrate. I have made this change. I have also added spironolactone. (5) Chronic systolic heart failure Assessment & Plan: He seems to be euvolemic at this point time. Continue with guideline directed medical therapy with changes noted above. (6) Primary hypertension Assessment & Plan: Losartan and beta-cris have been resumed as outlined above. (7) Mixed hyperlipidemia Assessment & Plan: Continue statin medication. (8) Type 2 diabetes mellitus with complication Assessment & Plan: This is being managed by the hospitalist. SUSAN PHILLIPS JR, MD Aug 04, 2021 11:28
[2021-08-04] MEDS ORDERED: SPIR25TA5 PO (12:56)
[2021-08-04] MEDS ORDERED: AMOX500C2 PO (12:56)
[2021-08-04] MEDS ORDERED: MULT-1137 PO (12:56)
[2021-08-04] MEDS ORDERED: METO50TA7 PO (12:56)
[2021-08-04] MEDS ORDERED: TICA90TA PO (12:56)
--- NOTE | 2021-08-04 12:57 | Discharge Summary ---
Discharge Summary Hospital Course Was the Problem List Reviewed?: Yes Problems/Dx: (1) Abnormal ECG (2) Paroxysmal atrial fibrillation (3) Coronary artery disease without angina pectoris (4) Cardiomyopathy (5) Chronic systolic heart failure (6) Primary hypertension (7) Mixed hyperlipidemia (8) Type 2 diabetes mellitus with complication Hospital Course Date of Admission: Jul 31, 2021 at 17:04 Admission Diagnosis : Family Physician/Provider: Ankit Shah MD Date of Discharge: 08/04/21 Discharge Diagnosis: Septic shock from UTI, severe hyperglycemia requiring insulin drip Hospital Course: Standard hospital course after admitted for septic shock from UTI. Empiric antibiotics with cefepime initiated. Aggressive IV fluid initiated. Blood sugars improved after insulin drip. Labs remained stable. Patient was transferred to fourth floor after stable. Amoxil initiated after cefepime discontinued and patient was deemed stable for discharge. Labs and Pending Lab Test: Laboratory Tests 08/03/21 15:44: Glucometer 79 08/03/21 21:15: Glucometer 111H 08/04/21 05:00: White Blood Count 5.5, Red Blood Count 4.14L, Hemoglobin 12.2L, Hematocrit 36L, Mean Corpuscular Volume 88, Mean Corpuscular Hemoglobin 30, Mean Corpuscular Hemoglobin Concent 34, Red Cell Distribution Width 13.5, Platelet Count 308, Mean Platelet Volume 10.9, Immature Granulocyte % (Auto) 0, Neutrophils (%) (Auto) 49, Lymphocytes (%) (Auto) 31, Monocytes (%) (Auto) 12, Eosinophils (%) (Auto) 7, Basophils (%) (Auto) 1, Neutrophils # (Auto) 2.7, Lymphocytes # (Auto) 1.7, Monocytes # (Auto) 0.7, Eosinophils # (Auto) 0.4H, Basophils # (Auto) 0.0, Immature Granulocyte # (Auto) 0.0, Sodium Level 137, Potassium Level 4.2, Chloride Level 104, Carbon Dioxide Level 25, Anion Gap 8, Blood Urea Nitrogen 19H, Creatinine 0.77, Estimat Glomerular Filtration Rate 100, BUN/Creatinine R atio 25, Glucose Level 226H, Calcium Level 8.9, Corrected Calcium 9.6, Total Bilirubin 0.4, Aspartate Amino Transf (AST/SGOT) 52H, Alanine Aminotransferase (ALT/SGPT) 49, Alkaline Phosphatase 108, Total Protein 6.6, Albumin 3.1L 08/04/21 11:06: Glucometer 151H Microbiology 08/01/21 MRSA Screen - Final, Complete MRSA not isolated 07/31/21 Blood Culture - Preliminary, Resulted No growth 07/31/21 Urine Culture - Final, Complete Escherichia coli Home Meds Active Tab-A-Kaylie Multivit with Iron (Multivitamin/Iron/Folic Acid) 1 Each Tablet 1 Ea PO DAILY@0700 Spironolactone 25 Mg Tablet 25 Mg PO DAILY Metoprolol Succinate 50 Mg Tab.er.24h 50 Mg PO DAILY Brilinta (Ticagrelor) 90 Mg Tablet 90 Mg PO BID Amoxicillin 500 Mg Capsule 500 Mg PO TID Reported Benadryl Allergy (Diphenhydramine HCl) 25 Mg Tablet 50 Mg PO HS Amiodarone HCl 200 Mg Tablet 200 Mg PO DAILY LAST FILLED 08-23-2020 #90/90 DAY SUPPLY Brilinta (Ticagrelor) 90 Mg Tablet 90 Mg PO DAILY LAST FILLED 01-03-2021 #60/60 DAY SUPPLY Metoprolol Tartrate 50 Mg Tablet 50 Mg PO BID LAST FILLED 03-19-2021 #120/60 DAY SUPPLY Novolog Flexpen (Insulin Aspart) 300 Units/3 Ml Solution 15 Units SQ TIDAC LAST FILLED 12-18-2020 #10 PEMS/67 DAY SUPPLY Levemir Flextouch (Insulin Detemir) 100 Unit/1 Ml Insuln.pen 30 Unit SQ HS LAST FILLED 12-18-2020 #5 PENS/50 DAY SUPPLY Metformin HCl 1,000 Mg Tablet 1,000 Mg PO BID LAST FILLED 08-23-2020 #180/90 DAY SUPPLY Atorvastatin Calcium 10 Mg Tablet 10 Mg PO DAILY LAST FILLED 08-23-2020 #90/90 DAY SUPPLY Fish Oil 1,000 mg Softgel ([place]-3/Dha/Epa/Fish Oil) 1,000 Mg Capsule 1,000 Mg PO BID Aspirin EC (Aspirin) 81 Mg Tablet.dr 81 Mg PO DAILY Losartan Potassium 25 Mg Tablet 25 Mg PO DAILY LAST FILLED 08-23-2020 #90/90 DAY SUPPLY Assessment/Pt Instructions PCP in 1 week Discharge Planning: <30 minutes discharge planning Discharge Instructions Discharge Diet: No Restrictions Discharge Physical Examination Vital Signs Vital Signs Date Time Temp Pulse Resp B/P (MAP) Pulse Ox O2 Delivery O2 Flow Rate FiO2 08/04/21 09:00 Room Air 1/2/22 07:34 36.4 83 22 104/56 97 General Appearance: No Apparent Distress, WD/WN, Chronically ill Allergies: Coded Allergies: No Known Drug Allergies (Unverified , 12/14/17) Discharge Summary Date of Admission Jul 31, 2021 at 17:04 Date of Discharge Discharge Date: Aug 04, 2021 Admission Diagnosis Assessment: Septic shock UTI Liver transplant status History of alcohol use CAD Atrial fibrillation? Acute kidney injury Plan: ICU Insulin drip Supportive care IV fluid Pressor therapy Discharge Diagnosis Assessment: Septic shock UTI Liver transplant status History of alcohol use CAD Atrial fibrillation? Acute kidney injury Plan: ICU Insulin drip Supportive care IV fluid Pressor therapy 08/01/2021: Transfer to fourth floor Change to subcu insulin DC insulin drip Cefepime 08/02/2021: Cefepime Await urine culture Blood sugar management 08/03/2021: Await urine culture (1) Abnormal ECG Assessment & Plan: His initial electrocardiogram showed some borderline anterior T wave abnormalities. A follow-up electrocardiogram was somewhat improved. His troponin level was negative. He is not having chest pain. As such, I do not see any indication for any additional cardiac testing at this point in time. He should continue his regular outpatient cardiac medication. (2) Paroxysmal atrial fibrillation Assessment & Plan: He is in a sinus rhythm. He had been on a high dose of amiodarone which will increase the risk of possible toxic side effects. I decreased his amiodarone to 100 mg daily which is more appropriate for long-term treatment of atrial fibrillation. I am not entirely sure why he is not on oral anticoagulation. He has not been recently seen in our office. I will make sure he is scheduled for a follow-up appointment in our office with his regular floor helper. (3) Coronary artery disease without angina pectoris Assessment & Plan: He is not having any angina and his troponin levels are negative. I have resumed aspirin, ticagrelor, and atorvastatin. He was on metoprolol tartrate at home which has been restarted. In light of his card iomyopathy, I will change this over to metoprolol succinate. (4) Cardiomyopathy Assessment & Plan: His ejection fraction is moderately impaired. His blood pressure has improved and he is now written for losartan and metoprolol titrate. As above, due to the left ventricular dysfunction, he should be on metoprolol succinate as opposed to metoprolol tartrate. I have made this change. I will also add spironolactone. (5) Chronic systolic heart failure Assessment & Plan: He seems to be euvolemic at this point time. Continue with guideline directed medical therapy with changes noted above. (6) Primary hypertension Assessment & Plan: Losartan and beta-cris have been resumed as outlined above. (7) Mixed hyperlipidemia Assessment & Plan: Continue statin medication. (8) Type 2 diabetes mellitus with complication Assessment & Plan: This is being managed by the hospitalist. KEITH CABALLERO DO Aug 04, 2021 12:57
== END 2021-08-04 16:49 | disposition home or self-care (01) | DRG 871 ==
LOC: EDUNIT# 12:51 → ER 12:52 → ICU 17:04 → 4TH 08-01 17:53
PROVIDERS: ADMIT Internal Medicine; ATTEND Internal Medicine
DX: A41.9 Sepsis, unspecified organism (principal); R65.21 Severe sepsis with septic shock; N39.0 Urinary tract infection, site not specified; I42.9 Cardiomyopathy, unspecified; N17.9 Acute kidney failure, unspecified; I50.22 Chronic systolic (congestive) heart failure; Z94.4 Liver transplant status; B19.20 Unspecified viral hepatitis C without hepatic coma; I48.0 Paroxysmal atrial fibrillation; I25.10 Atherosclerotic heart disease of native coronary artery without angina pectoris; I11.0 Hypertensive heart disease with heart failure; E11.65 Type 2 diabetes mellitus with hyperglycemia; E11.40 Type 2 diabetes mellitus with diabetic neuropathy, unspecified; E78.2 Mixed hyperlipidemia; H54.62 Unqualified visual loss, left eye, normal vision right eye; Z79.4 Long term (current) use of insulin; Z79.84 Long term (current) use of oral hypoglycemic drugs; Z87.891 Personal history of nicotine dependence; Z95.5 Presence of coronary angioplasty implant and graft; Z95.810 Presence of automatic (implantable) cardiac defibrillator; Z89.421 Acquired absence of other right toe(s); Z79.82 Long term (current) use of aspirin; Z82.49 Family history of ischemic heart disease and other diseases of the circulatory system
CPT/HCPCS: 36415; 71045; 80053; 80061; 81000; 82805; 82947; 83036; 83605; 84484; 85025; 85610; 85730; 87040; 87077; 87081; 87088; 87186; 93005; 93306

== ENCOUNTER 2021-10-28 12:56 | Inpatient (IN) | payer MEDICAID, MEDICARE ==
[~2021-10-28] VITALS: Ht 182 cm; Wt 92.5 kg
[~2021-10-28 12:56] MED LIST changes: +AMOX500C2 PO; +DIPH25TA65 PO; +MULT-1137 PO; +SPIR25TA5 PO
--- NOTE | 2021-10-28 13:33 | ED Neurological Problem ---
General Chief Complaint: Neuro-Stroke Like Symptoms Stated Complaint: HYPOTENSION Nursing Triage Note: PT BROUGHT IN BY [facility] FROM HOME WITH COMPLAINT OF HYPOTENSION, COFFEE GROUND EMESIS, AND NOT RESPONDING. PT WAS FOUND IN HOUSE BY [employer]. ON EMS ARRIVAL, PT WAS SITTING IN RECLINER LOOKING AROUND, PALE, NOT TALKING. PT WILL LIFT LEFT ARM, CANNOT HOLD UP RIGHT ARM, RIGHT LEG, AND LEFT LEG. PT HAS BILATERAL IVs WITH NS INFUSING. PT WILL TRACK, BUT NO RESPOND. UNABLE TO PERFORM NIH. Source: patient Exam Limitations: no limitations (KLAUS BOYD STUDENT) History of Present Illness Date Seen by Provider: Oct 28, 2021 Time Seen by Provider: 13:18 Initial Comments Patient is a 70 year old male who was brought in via EMS after being found in his home by a worker from [employer]. He was found to be sitting in his recliner and was hypotensive, not responding, and pale in appearance. Patient is unable to currently verbalize, thus limiting review of systems and history. Patient is alert with eyes open and tracking in room. Vitals stable. He is able to move all four extremities on command. His oral cavity, clothing, and skin are covered in dark brown/black appearing vomitus. He is able to squeeze fingers bilaterally and blink both eyelids. He is unable to provide any other history. Timing/Duration: unknown (KLAUS BOYD STUDENT) Allergies and Home Medications Allergies Coded Allergies: No Known Drug Allergies (Unverified , 12/14/17) Patient Home Medication List Home Medication List Reviewed: Yes (EILER FREEMAN MD) Amiodarone HCl (Amiodarone HCl) 200 Mg Tablet, 200 MG PO DAILY, (Reported) Entered as Reported by: AIDE FARLEY on 08/01/21 1344 Amoxicillin (Amoxicillin) 500 Mg Capsule, 500 MG PO TID Prescribed by: KEITH CABALLERO on 08/04/21 1256 Aspirin (Aspirin EC) 81 Mg Tablet.dr, 81 MG PO DAILY, (Reported) Entered as Reported by: AIDE FARLEY on 09/07/19 1209 Atorvastatin Calcium (Atorvastatin Calcium) 10 Mg Tablet, 10 MG PO DAILY, (Reported) Entered as Reported by: AIDE FARLEY on 09/07/19 1211 Diphenhydramine HCl (Benadryl Allergy) 25 Mg Tablet, 50 MG PO HS, (Reported) Entered as Reported by: AIDE FARLEY on 08/01/21 1344 Insulin Aspart (Novolog Flexpen) 300 Units/3 Ml Solution, 15 UNITS SQ TIDAC, (Reported) Entered as Reported by: AIDE FARLEY on 09/07/19 1213 Insulin Detemir (Levemir Flextouch) 100 Unit/1 Ml Insuln.pen, 30 UNIT SQ HS, (Reported) Entered as Reported by: AIDE FARLEY on 09/07/19 1213 Losartan Potassium (Losartan Potassium) 25 Mg Tablet, 25 MG PO DAILY, (Reported) Entered as Reported by: AIDE FARLEY on 05/06/19 1154 Metformin HCl (Metformin HCl) 1,000 Mg Tablet, 1,000 MG PO BID, (Reported) Entered as Reported by: AIDE FARLEY on 09/07/19 1211 Metoprolol Succinate (Metoprolol Succinate) 50 Mg Tab.er.24h, 50 MG PO DAILY Prescribed by: KEITH CABALLERO on 08/04/21 1256 Multivitamin/Iron/Folic Acid (Tab-A-Kaylie Multivit with Iron) 1 Each Tablet, 1 EA PO DAILY@0700 Prescribed by: KEITH CABALLERO on 08/04/21 1256 Imboden-3/Dha/Epa/Fish Oil (Fish Oil 1,000 mg Softgel) 1,000 Mg Capsule, 1,000 MG PO BID, (Reported) Entered as Reported by: AIDE FARLEY on 09/07/19 1209 Spironolactone (Spironolactone) 25 Mg Tablet, 25 MG PO DAILY Prescribed by: KEITH CABALLERO on 08/04/21 1256 Ticagrelor (Brilinta) 90 Mg Tablet, 90 MG PO BID Prescribed by: KEITH CABALLERO on 08/04/21 1256 Review of Systems Review of Systems Constitutional: other (unobtainable) Eyes: Other (unobtainable) Respiratory: other (unobtainable) Cardiovascular: other (unobtainable) Gastrointestinal: other (unobtainable) Genitourinary: other (unobtainable) Musculoskeletal: other (unobtainable) Skin: other (unobtainable) Psychiatric/Neurological: Other (unobtainable) Endocrine: Other (unobtainable) Hematologic/Lymphatic: Other (unobtainable) (KLAUS BOYD) All Other Systems Reviewed Negative Unless Noted: No (KLAUS BOYD) Past Hxamihx-Nrafwt-Pqblow Hx Patient Social History Smoking Status: Unknown if Ever Smoked Smokeless Tobacco Frequency: Unknown if Ever Used Use of E-Cig and/or Vaping Anatoliy: Unknown if Ever Used Substance use?: Unable to obtain Alcohol Use?: Unable to obtain Pt feels they are or have been: Unable to obtain (KLAUS BOYD) Immunizations Up To Date Tetanus Booster (TDap): Unknown First/Initial COVID19 Vaccinat: 12/24/20 Second COVID19 Vaccination Anshu: 02/13/21 Third COVID19 Vaccination Date: 12/24/20 (KLAUS BOYD) Seasonal Allergies Seasonal Allergies: No (KLAUS BOYD) Past Medical History Surgery/Hospitalization HX: pmh: defib, cardiac stents, liver transplant, dm Surgeries: Yes (several sx on both feet with toes amputed on right foot) Amputation (right foot partial amputation), Appendectomy, Coronary Stent, Gallbladder, Liver Transplant, Orthopedic, Tonsillectomy Respiratory: No Currently Using CPAP: No Currently Using BIPAP: No Cardiac: Yes (congestive heart failure) Coronary Artery Disease, Hypertension Neurological: Yes (NEUROPATHY IN FEET) Neuropathy Reproductive Disorders: No Sexually Transmitted Disease: No HIV/AIDS: No Genitourinary: Yes Prostate Problems Gastrointestinal: Yes (HEPATITIS C--S/P INTERFERON TREATMENT; LIVER TRANSPLANT 2002) Liver Disease/Jaundice, Hepatitis, Cirrhosis Musculoskeletal: Yes (TOES AMPUTATED. CELLULITIS/OSTEOMYELITIS OF FEET/TOES) Amputee, Arthritis, Chronic Back Pain Endocrine: Yes ([id number]-[id number] NOT CHECK BLOOD SUGARS EVERDAY) Diabetes, Non-Insulin dep HEENT: Yes (EDENTULOUS) Loss of Vision: Left Hearing Impairment: Denies Cancer: No Psychosocial: No (NEVER TAKEN MEDS) Depression Integumentary: Yes (CYST LEFT NECK; CELLULITIS/OSTEOMYELITIS OF FEET) Blood Disorders: No Adverse Reaction/Blood Tranf: No (HAS HAD BLOOD WITH NO REACTION) (KLAUS BOYD) Family Medical History Cystic fibrosis 19 MOTHER G8 SISTER FH: breast cancer G8 SISTER Myocardial infarction 19 FATHER No Pertinent Family Hx (KLAUS BOYD [employer] STUDENT) Physical Exam Vital Signs Vital Signs - First Documented 10/28/21 12:56 Temp 36.2 Pulse 93 Resp 16 B/P (MAP) 105/69 (81) Pulse Ox 92 O2 Delivery Room Air (ELIER FREEMAN MD) Vital Signs Capillary Refill : Less Than 3 Seconds (KLAUS BOYD [employer] STUDENT) Height, Weight, BMI Height: 6'0.00" Weight: 240lbs. 0.0oz. 108.366751jn; 27.00 BMI Method:Stated General Appearance: no apparent distress, cachetic HEENT: PERRL/EOMI, TMs normal Neck: non-tender, full range of motion Respiratory: chest non-tender, no respiratory distress, rhonchi Cardiovascular: no edema, no murmur Peripheral Pulses: 2+ Radial Pulses (R), 2+ Radial Pulses (L) Gastrointestinal: normal bowel sounds, soft Extremities: non-tender, no pedal edema, other (right foot partial amputation) Neurologic/Psychiatric: alert, other (nonverbal currently. ) Crainal Nerves: PERRL Skin: warm/dry, other (scattered scabs abrasions throughout body) Lymphatic: no adenopathy (Head and Neck) (KLAUS BOYD MED STUDENT) HEENT: PERRL/EOMI, TMs normal, other (dry oral mucosa with black-karan appearing vomitus in mouth and on clothes) Neck: normal inspection Respiratory: rhonchi (bases bilaterally (poor inspiratory effort)) Cardiovascular: no edema, tachycardia Gastrointestinal: soft Extremities: no pedal edema, other (all toes right foot amputated; one on the left amputated - both stumps appear normal) Neurologic/Psychiatric: alert, other (nonverbal currently. will not follow commands for me, but is noted to be moving all 4 extremities equally) Coordination/Gait: other (gait nottested) Skin: normal color, warm/dry (ELIER FREEMAN MD) Focused Exam Lactate Level 10/28/21 13:02: Lactic Acid Level 2.01*H (ELIER FREEMAN MD) Respiratory: No Accessory Muscle Use, No Respiratory Distress, Crackles (bilat bases) Cardiovascular: Normal Peripheral Pulses Capillary Refill: Less Than 3 Seconds Peripheral Pulses: 1+ Radial Pulses (R), 1+ Radial Pulses (L) Skin: warm/dry, pallor Lactic Acid Level Laboratory Tests Test 10/28/21 13:02 Lactic Acid Level 2.01 MMOL/L (0.50-2.00) *H (ELIER FREEMAN MD) Within 3hrs of presentation: Admin fluids, Admin ABX, Blood cultures prior to ABX's, Focus exam (ELIER FREEMAN MD) Procedures/Interventions Discussed Risk,Benefits: Yes (Patient was unable to give any meaningful consent due to being obtunded) Position: Lying, L4-5, Right Sterile Technique: Yes Opening Pressure: 7 cm water pressure Fluid Color: Straw, clear Size of Disposal Tray Used: Adult Initially bloody tap (JOSUE RIZO) Progress/Results/Core Measures Results/Orders Lab Results Laboratory Tests Test 10/28/21 13:02 10/28/21 15:15 Range/Units White Blood Count 14.3 H 4.3-11.0 10^3/uL Red Blood Count 4.65 4.30-5.52 10^6/uL Hemoglobin 13.6 13.3-17.7 g/dL Hematocrit 40 40-54 % Mean Corpuscular Volume 87 80-99 fL Mean Corpuscular Hemoglobin 29 25-34 pg Mean Corpuscular Hemoglobin Concent 34 32-36 g/dL Red Cell Distribution Width 13.7 10.0-14.5 % Platelet Count 378 130-400 10^3/uL Mean Platelet Volume 10.8 9.0-12.2 fL Immature Granulocyte % (Auto) 0 % Neutrophils (%) (Auto) 80 H 42-75 % Lymphocytes (%) (Auto) 11 L 12-44 % Monocytes (%) (Auto) 8 0-12 % Eosinophils (%) (Auto) 0 0-10 % Basophils (%) (Auto) 0 0-10 % Neutrophils # (Auto) 11.5 H 1.8-7.8 10^3/uL Lymphocytes # (Auto) 1.6 1.0-4.0 10^3/uL Monocytes # (Auto) 1.2 H 0.0-1.0 10^3/uL Eosinophils # (Auto) 0.0 0.0-0.3 10^3/uL Basophils # (Auto) 0.0 0.0-0.1 10^3/uL Immature Granulocyte # (Auto) 0.1 0.0-0.1 10^3/uL Neutrophils % (Manual) 76 % Lymphocytes % (Manual) 8 % Monocytes % (Manual) 11 % Band Neutrophils 5 % Blood Morphology Comment NORMAL Prothrombin Time 15.0 H 12.2-14.7 SEC INR Comment 1.1 0.8-1.4 Activated Partial Thromboplast Time 31 24-35 SEC Sodium Level 137 135-145 MMOL/L Potassium Level 4.3 3.6-5.0 MMOL/L Chloride Level 104 98-107 MMOL/L Carbon Dioxide Level 19 L 21-32 MMOL/L Anion Gap 14 5-14 MMOL/L Blood Urea Nitrogen 37 H 7-18 MG/DL Creatinine 2.37 H 0.60-1.30 MG/DL Estimat Glomerular Filtration Rate 29 BUN/Creatinine Ratio 16 Glucose Level 264 H 70-105 MG/DL Lactic Acid Level 2.01 *H 0.50-2.00 MMOL/L Calcium Level 8.8 8.5-10.1 MG/DL Corrected Calcium 9.3 8.5-10.1 MG/DL Phosphorus Level 6.1 H 2.3-4.7 MG/DL Magnesium Level 1.5 L 1.6-2.4 MG/DL Total Bilirubin 1.2 H 0.1-1.0 MG/DL Aspartate Amino Transf (AST/SGOT) 27 5-34 U/L Alanine Aminotransferase (ALT/SGPT) 29 0-55 U/L Alkaline Phosphatase 84 40-136 U/L Ammonia 27 11-32 UMOL/L Total Protein 7.0 6.4-8.2 GM/DL Albumin 3.4 3.2-4.5 GM/DL Procalcitonin 5.52 H <0.10 NG/ML Salicylates Level < 5.0 L 5.0-20.0 MG/DL Acetaminophen Level < 10 L 10-30 UG/ML Serum Alcohol < 10 <10 MG/DL Urine Color YELLOW Urine Clarity CLEAR Urine pH 6.0 5-9 Urine Specific [place] >=1.030 1.016-1.022 Urine Protein TRACE H NEGATIVE Urine Glucose (UA) NEGATIVE NEGATIVE Urine Ketones TRACE H NEGATIVE Urine Nitrite NEGATIVE NEGATIVE Urine Bilirubin NEGATIVE NEGATIVE Urine Urobilinogen 0.2 < = 1.0 MG/DL Urine Leukocyte Esterase NEGATIVE NEGATIVE Urine RBC (Auto) NEGATIVE NEGATIVE Urine RBC NONE /HPF Urine WBC NONE /HPF Urine Squamous Epithelial Cells RARE /HPF Urine Crystals NONE /LPF Urine Bacteria NEGATIVE /HPF Urine Casts NONE /LPF Urine Mucus NEGATIVE /LPF Urine Culture Indicated NO Urine Opiates Screen NEGATIVE NEGATIVE Urine Oxycodone Screen NEGATIVE NEGATIVE Urine Methadone Screen NEGATIVE NEGATIVE Urine Propoxyphene Screen NEGATIVE NEGATIVE Urine Barbiturates Screen NEGATIVE NEGATIVE Ur Tricyclic Antidepressants Screen NEGATIVE NEGATIVE Urine Phencyclidine Screen NEGATIVE NEGATIVE Urine Amphetamines Screen POSITIVE H NEGATIVE Urine Methamphetamines Screen POSITIVE H NEGATIVE Urine Benzodiazepines Screen NEGATIVE NEGATIVE Urine Cocaine Screen NEGATIVE NEGATIVE Urine Cannabinoids Screen NEGATIVE NEGATIVE (ELIER FREEMAN MD) My Orders Orders - ELIER FREEMAN MD Ed Iv/Invasive Line Start (10/28/21 13:35) Ct Head Wo (10/28/21 13:35) Ekg Tracing (10/28/21 13:35) Cbc With Automated Diff (10/28/21 13:35) Comprehensive Metabolic Panel (10/28/21 13:35) Protime With Inr (10/28/21 13:35) Partial Thromboplastin Time (10/28/21 13:35) Ammonia (10/28/21 13:35) Alcohol (10/28/21 13:35) Ua Culture If Indicated (10/28/21 13:35) Drug Screen Stat (Urine) (10/28/21 13:35) Salicylate (10/28/21 13:35) Acetaminophen (10/28/21 13:35) Chest 1 View, Ap/Pa Only (10/28/21 13:35) Manual Differential (10/28/21 13:02) Blood Culture (10/28/21 15:55) Lactic Acid Analyzer (10/28/21 15:55) Procalcitonin (Pct) (10/28/21 15:55) Cefepime Injection (Maxipime Injection) (10/28/21 21:00) Ns Iv 1000 Ml (Sodium Chloride 0.9%) (10/28/21 16:00) (ELIER FREEMAN MD) Vital Signs/I&O 10/28/21 12:56 Temp 36.2 Pulse 93 Resp 16 B/P (MAP) 105/69 (81) Pulse Ox 92 O2 Delivery Room Air (ELIER FREEMAN MD) Blood Pressure Mean: 81 Admisison Planning May Need Admission (Planning): 15:32 (ELIER FREEMAN MD) Progress Progress Note #1: Time: 15:30 Progress Note Patient reassessed by me, still not verbalizing anything. When I walk in the room patient seems to focus on me and watch me for a short few minutes and then will turn to the right and stare at the wall. Vital signs remained stable. Labs have been reviewed, mild leukocytosis, acute kidney injury, right lower lobe infiltrate noted on x-ray. Positive for methamphetamines. No acute findings in the brain. Will add blood cultures and a lactic acid with a pro calcitonin for pneumonia as well as start antibiotics. Will discuss admission with [facility]. Progress Note #2: Time: 16:26 Progress Note Notified by nursing staff that the patient began seizing. Noted to be gripping the right bed rail and leaning over to the right with generalized tonic clonic movement. Seizure lasted approximately 2 minutes. Resolved without any intervention. I reviewed the patient's medical record, no mention in previous histories of seizure disorder. I spoke with Dr. De La Torre who asked that the patient be placed in the intensive care unit overnight, alcohol withdrawal protocol/seizure precautions. Progress Note #3: Time: 16:44 Progress Note found by staff to be seizing again - unknown length of time. But spontaneously stopped. 1mg of ativan given. HR 91; BP 140 systolic. On oxygen 97% sats. Progress Note #4: Time: 17:34 Progress Note notified by nursing patient's pressure dropped to the 70's systolic. 79/46, 74/58. 3rd liter started. now at 109 systolic. he is rousable but still non verbal. notified Dr De La Torre of lactate/procal and VS. pending ICU placement Progress Note #5: Time: 17:44 Progress Note patient found to be [facility] patient. I changed course and called Dr Yanez. She would like LP studies. Will get this done. (ELIER FREEMAN MD) Initial ECG Impression Date: Oct 28, 2021 Initial ECG Impression Time: 14:25 Initial ECG Rate: 92 Initial ECG Rhythm: Normal Sinus Initial ECG Intervals ID 180 QRS [address]-T wave changes across leads V3, V4, V5 and V6. PAC noted Prolonged QT interval Q waves inferiorly (ELIER FREEMAN MD) Diagnostic Imaging Diagonstic Imaging: CT Plain Films/CT/US/NM/MRI: chest Comments [facility] [place] [place] NAME: ERIBERTO RAMEY [facility] REC#: [id number] PT STATUS: REG ER : 1950 PHYSICIAN: ELIER FREEMAN MD ADMIT DATE: 10/28/21/ER Signed Date of Exam:10/28/21 CT HEAD WO PROCEDURE: CT head without contrast. TECHNIQUE: Multiple contiguous axial images were obtained through the brain without the use of intravenous contrast. Auto Exposure Controls were utilized during the CT exam to meet ALARA standards for radiation dose reduction. INDICATION: Altered mental status, found down. Ventricles and sulci are prominent. There is mild low density within the deep white matter of both hemispheres. No hemorrhage is identified. There is no abnormal mass effect or shift of midline structures. There is moderate mural thickening present within the paranasal sinuses. IMPRESSION: Mild senescent findings in the brain without CT evidence of acute intracranial abnormality. There is moderate pansinusitis. Dictated by: Dictated on workstation # [id number] Dict: 10/28/21 1438 Trans: 10/28/21 1445 [id number] Interpreted by: HENRY ROBLES MD Electronically signed by: HENRY ROBELS MD 10/28/21 1445 Diagonstic Imaging: Xray Plain Films/CT/US/NM/MRI: chest Comments [facility] [place] [place] NAME: ERIBERTO RAMEY [facility] REC#: [id number] PT STATUS: REG ER : 1950 PHYSICIAN: ELIER FREEMAN MD ADMIT DATE: 10/28/21/ER Signed Date of Exam:10/28/21 CHEST 1 VIEW, AP/PA ONLY INDICATION: Altered mental status. Frontal chest obtained at 2:41 p.m. and compared to 07/31/2021. FINDINGS: The heart is mildly enlarged. There is COPD change. There is some new infiltrate in the right lung base, pneumonia not excluded. There is no pneumothorax or pleural fluid. IMPRESSION: Mild cardiomegaly and underlying COPD change. There is some new infiltrate in the right lung base, pneumonia is not excluded. Follow-up is recommended. Dictated by: Dictated on workstation # [id number] Dict: 10/28/21 1441 Trans: 10/28/21 1503 [id number] Interpreted by: TRICIA LAYTON MD Electronically signed by: TRICIA LAYTON MD 10/28/21 1503 (ELIER FREEMAN MD) Departure Communication (Admissions) Time/Spoke to Admitting Phy: 16:[address] De La Torre (ELIER FREEMAN MD) Impression Primary Impression: Altered mental status Qualified Codes: R40.1 - Stupor Additional Impressions: Pneumonia Qualified Codes: J18.9 - Pneumonia, unspecified organism Methamphetamine use Disposition: ADMITTED INPATIENT Condition: Stable Admissions Decision to Admit Reason: Admit from ER (General) Decision to Admit/Date: Oct 28, 2021 Time/Decision to Admit Time: 15:52 (ELIER FREEMAN MD) Departure-Patient Inst. Referrals: AVANI DORMAN MD (PCP/Family) Primary Care Physician Verification and Attestation of Medical Student E/M Service A medical student performed and documented this service in my presence. I revie wed and verified all information documented by the medical student and made modifications to such information, when appropriate. I personally performed the physical exam and medical decision making. Elier Freeman, Oct 28, 2021,15:32 (ELIER FREEMAN MD) KLAUS BOYD MED STUDENT Oct 28, 2021 13:32 ELIER FREEMAN MD Oct 28, 2021 15:33 JOSUE RIZO Oct 28, 2021 19:58
[2021-10-28 13:51] LABS: BASOPHILS % (AUTO) 0 % (0-10); EOSINOPHILS % (AUTO) 0 % (0-10); HEMATOCRIT 40 % (40-54); HEMOGLOBIN 13.6 g/dL (13.3-17.7); LYMPHOCYTES # (AUTO) 1.6 10^3/uL (1.0-4.0); LYMPHOCYTES % (AUTO) 11 % (12-44); MEAN CORPUSCULAR HEMOGLOBIN 29 pg (25-34); MEAN CORPUSCULAR HGB CONC 34 g/dL (32-36); MEAN CORPUSCULAR VOLUME 87 fL (80-99); MEAN PLATELET VOLUME 10.8 fL (9.0-12.2); MONOCYTES # (AUTO) 1.2 10^3/uL (0.0-1.0); MONOCYTES % (AUTO) 8 % (0-12); NEUTROPHILS # (AUTO) 11.5 10^3/uL (1.8-7.8); NEUTROPHILS % (AUTO) 80 % (42-75); PLATELET COUNT 378 10^3/uL (130-400); WHITE BLOOD COUNT 14.3 10^3/uL (4.3-11.0)
[2021-10-28 13:58] LABS: INR 1.1 (0.8-1.4)
[2021-10-28 14:03] LABS: ALANINE AMINOTRANSFERASE 29 U/L (0-55); ALBUMIN 3.4 GM/DL (3.2-4.5); ALKALINE PHOSPHATASE 84 U/L (40-136); AMMONIA 27 UMOL/L (11-32); BILIRUBIN,TOTAL 1.2 MG/DL (0.1-1.0); BUN/CREATININE RATIO 16; CALCIUM 8.8 MG/DL (8.5-10.1); CARBON DIOXIDE 19 MMOL/L (21-32); CHLORIDE 104 MMOL/L (98-107); CREATININE SERUM 2.37 MG/DL (0.60-1.30); GFR ESTIMATED 29; GLUCOSE 264 MG/DL (70-105); POTASSIUM 4.3 MMOL/L (3.6-5.0); SALICYLATE < 5.0 MG/DL (5.0-20.0); SODIUM 137 MMOL/L (135-145)
[2021-10-28 14:05] LABS: ACETAMINOPHEN < 10 UG/ML (10-30)
[2021-10-28 14:29] LABS: BAND NEUTROPHILS 5 %; LYMPHOCYTES % (MANUAL) 8 %; MONOCYTES % (MANUAL) 11 %; NEUTROPHILS % (MANUAL) 76 %
[2021-10-28 14:30] LABS: RBC MORPH NORMAL
--- NOTE | 2021-10-28 14:43 | Diagnostic Imaging Report ---
PROCEDURE: CT head without contrast. TECHNIQUE: Multiple contiguous axial images were obtained through the brain without the use of intravenous contrast. Auto Exposure Controls were utilized during the CT exam to meet ALARA standards for radiation dose reduction. INDICATION: Altered mental status, found down. Ventricles and sulci are prominent. There is mild low density within the deep white matter of both hemispheres. No hemorrhage is identified. There is no abnormal mass effect or shift of midline structures. There is moderate mural thickening present within the paranasal sinuses. IMPRESSION: Mild senescent findings in the brain without CT evidence of acute intracranial abnormality. There is moderate pansinusitis. Dictated by: Dictated on workstation # [id number]
--- NOTE | 2021-10-28 14:46 | Diagnostic Imaging Report ---
INDICATION: Altered mental status. Frontal chest obtained at 2:41 p.m. and compared to 07/31/2021. FINDINGS: The heart is mildly enlarged. There is COPD change. There is some new infiltrate in the right lung base, pneumonia not excluded. There is no pneumothorax or pleural fluid. IMPRESSION: Mild cardiomegaly and underlying COPD change. There is some new infiltrate in the right lung base, pneumonia is not excluded. Follow-up is recommended. Dictated by: Dictated on workstation # [id number]
[2021-10-28 15:26] LABS: BILIRUBIN,URINE NEGATIVE (NEGATIVE); CLARITY,URINE CLEAR; COLOR,URINE YELLOW; GLUCOSE, URINE (UA) NEGATIVE (NEGATIVE); KETONES,URINE TRACE (NEGATIVE); LEUKOCYTE ESTERASE ,URINE NEGATIVE (NEGATIVE); NITRITE,URINE NEGATIVE (NEGATIVE); PROTEIN,URINE TRACE (NEGATIVE)
[2021-10-28 15:44] LABS: AMPHETAMINE SCREEN, URINE POSITIVE (NEGATIVE); BACTERIA,URINE NEGATIVE /HPF; BARBITURATE SCREEN URINE NEGATIVE (NEGATIVE); BENZODIAZEPINES SCREEN URINE NEGATIVE (NEGATIVE); CANNABINOID SCREEN, URINE NEGATIVE (NEGATIVE); COCAINE SCREEN URINE NEGATIVE (NEGATIVE); METHADONE STAT NEGATIVE (NEGATIVE); METHAMPHETAMINE SCREEN URINE S POSITIVE (NEGATIVE); OPIATE SCREEN URINE NEGATIVE (NEGATIVE); OXYCODONE STAT NEGATIVE (NEGATIVE); PROPOXYPHENE STAT NEGATIVE (NEGATIVE); SQUAMOUS EPITHELIAL CELL,UR RARE /HPF; TRICYCLIC ANTIDEPRESSANTS SCRE NEGATIVE (NEGATIVE)
[2021-10-28] MEDS ORDERED: NS IV 1000 ML 1,000 ML IV SCH ×3 (16:00→18:30)
[2021-10-28] MEDS ORDERED: CEFEPIME 2 GM/20 ML (MAXIPIME) VIAL ONE ×2 (16:12→18:47)
[2021-10-28] MEDS ORDERED: NS (IVPB) 50 ML ONE ×2 (16:13→18:46)
[2021-10-28] MEDS ORDERED: LORazepam INJ 2 MG/ML (ATIVAN) VIAL ONE ×2 (16:19→16:41)
[2021-10-28] MEDS ORDERED: LORazepam INJ 2 MG/ML (ATIVAN) VIAL IVP STA (16:41)
[2021-10-28 16:47] LABS: MAGNESIUM 1.5 MG/DL (1.6-2.4); PHOSPHORUS 6.1 MG/DL (2.3-4.7)
[2021-10-28] MEDS ORDERED: NS IV 1000 ML 1,000 ML ONE (17:21)
[2021-10-28] MEDS ORDERED: LORazepam INJ 2 MG/ML (ATIVAN) VIAL IM/IV PRN (19:00)
[2021-10-28] MEDS ORDERED: LORazepam 1 MG (ATIVAN) TAB PO PRN (19:00)
[2021-10-28] MEDS ORDERED: LORazepam INJ 2 MG/ML (ATIVAN) VIAL IV PRN (19:00)
[2021-10-28] MEDS ORDERED: D5 1/2 NS 1000 ML IV SOLUTION 1,000 ML IV PRN (19:00)
[2021-10-28] MEDS ORDERED: 1/2 NS IV SOLUTION 1,000 ML IV PRN (19:00)
[2021-10-28 19:02] LABS: APPEARANCE,CSF CLEAR; COLOR,CSF COLORLESS
[2021-10-28 19:11] LABS: CSF TUBE NUMBER 4; RED BLOOD CELL,CSF 3 CELLS (0-0); WHITE BLOOD CELL,CSF 2 CELLS (0-5)
[2021-10-28 19:37] LABS: CSF GLUCOSE 131 MG/DL (50-80); CSF TOTAL PROTEIN 51 MG/DL (15-40)
[2021-10-28] MEDS ORDERED: LACTATED RINGERS 1,000 ML IV SCH ×2 (20:00)
[2021-10-28] MEDS: inSUlin ASPART (NovoLOG) 1 UNIT/0.01 ML (CHARGE PER UNIT) SC SCH (20:15)
[2021-10-28] MEDS ORDERED: RT-ALBUTEROL/IPRATROPIUM 3 ML (DUONEB) VIAL INH PRN (20:15)
[2021-10-28] MEDS ORDERED: LACTATED RINGERS 1,000 ML IV ONE (20:23)
[2021-10-28] MEDS ORDERED: MAGNESIUM 1 GM/100 ML IVPB 200 ML IV ONE (20:23)
--- NOTE | 2021-10-28 20:28 | Tele-ICU Progress Note ---
Progress Note (Tele-ICU Physician , consultation) Available chart/ vitals / labs / Images reviewed H&P is from ER notes Patient's information available about PMH, Shx, Fhx allergy reviewed in EMR. ROS as per chart and RN report Now in ICU, hemodynamically stable Video assessment done using teleICU camera, rest of exam as per RN Discussed with RN. Hospital course: 10/28 - to ER with AMS , seizure, STEPHANIA, suspected infection A/P: ID ( leukocytosis , elev PCT 5.5) - ? RLL PNA vs BAND SPLICER infection - s/p LP in ER, cell counts and culture pending - cameron cultures pending - cefepime initiated Hypotension - presumed sepsis + hypovolemia - BP initially improved with IVF, but despite 3L is now borderline at 95/51. Will give additional 500 cc bolus followed by 150 cc/hr, suspect significant hypovolemia with unknown downtime, unknown NPO time and apparent recent ampth etamine use. Lactic acidosis - sepsis vs post seizure - increased from 2 to 3 despite aggressive fluids, however also had a seizure in that time - continue to trend Altered mental status = CTH 10/28 - no acute findinjgs - ? postictal vs TME vs infection vs amphetamine toxicity or withdrawal STEPHANIA - cont hydration - check CK for rhabdo - unknown downtime h/o CAD , CHF - No evidence of decomponsation, fluid overload - will check EKG for baseline0. h/o A fib, currently in NSR - not on AC - on amio Seizure in ER 2 min , Resolved without any intervention, but seized agin - ativan given - ? ETON withdrawal - CTH 10/28 - no acute changes Positive for methamphetamines h/o ETON use - CIWA - monitor for Sx -low Mg - replace DM II - home levemir 30 u qhs, aspart 15u TID and metformin - will give ISS medium, q6h and levemir 10u qhs h/o HEPATITIS C--S/P INTERFERON TREATMENT; LIVER TRANSPLANT 2002) - LFTs normal, PT/INR borderline at 15/1.1 Plans in collaboration with bedside consultants and IM MDs. Discussed with RN to reach out if any questions or concerns Focused Exam Lactate Level 10/28/21 13:02: Lactic Acid Level 2.01*H 10/28/21 17:55: Lactic Acid Level 2.98*H Height, Weight, BMI Height: 6'0.00" Weight: 240lbs. 0.0oz. [id number]; 28.07 BMI Method:Stated Lactic Acid Level Laboratory Tests Test 10/28/21 17:55 Lactic Acid Level 2.98 MMOL/L (0.50-2.00) *H MONIK SHELDON MD Oct 28, 2021 20:27
[2021-10-28] MEDS: MAGNESIUM 1 GM/100 ML IVPB 100 ML IV SCH ×2 (20:45→21:58)
[2021-10-28] MEDS ORDERED: CEFEPIME INJECTION 2,000 MG in NS (IVPB) 50 ML IV SCH (21:00)
[2021-10-28] MEDS ORDERED: inSUlin ASPART (NovoLOG) 1 UNIT/0.01 ML (CHARGE PER UNIT) SC SCH (21:00)
[2021-10-28] MEDS: LACTATED RINGERS 1,000 ML IV SCH (21:59)
[2021-10-29] MEDS: inSUlin ASPART (NovoLOG) 1 UNIT/0.01 ML (CHARGE PER UNIT) SC SCH ×3 (00:06→22:00)
[2021-10-29] MEDS: LACTATED RINGERS 1,000 ML IV SCH ×4 (03:26→21:16)
[2021-10-29 04:44] LABS: BASOPHILS % (AUTO) 0 % (0-10); EOSINOPHILS % (AUTO) 0 % (0-10); HEMATOCRIT 36 % (40-54); HEMOGLOBIN 11.8 g/dL (13.3-17.7); LYMPHOCYTES # (AUTO) 1.3 10^3/uL (1.0-4.0); LYMPHOCYTES % (AUTO) 10 % (12-44); MEAN CORPUSCULAR HEMOGLOBIN 29 pg (25-34); MEAN CORPUSCULAR HGB CONC 33 g/dL (32-36); MEAN CORPUSCULAR VOLUME 87 fL (80-99); MEAN PLATELET VOLUME 10.5 fL (9.0-12.2); MONOCYTES % (AUTO) 8 % (0-12); NEUTROPHILS # (AUTO) 9.9 10^3/uL (1.8-7.8); NEUTROPHILS % (AUTO) 81 % (42-75); PLATELET COUNT 311 10^3/uL (130-400); WHITE BLOOD COUNT 12.2 10^3/uL (4.3-11.0)
[2021-10-29] MEDS ORDERED: CEFEPIME 1,000 MG/NS 50 ML IVPB IV SCH ×2 (05:00)
[2021-10-29 05:29] LABS: BILIRUBIN,TOTAL 1.2 MG/DL (0.1-1.0); CALCIUM 8.3 MG/DL (8.5-10.1); CREATININE SERUM 1.07 MG/DL (0.60-1.30); MAGNESIUM 1.8 MG/DL (1.6-2.4); PHOSPHORUS 1.5 MG/DL (2.3-4.7); POTASSIUM 3.6 MMOL/L (3.6-5.0); TOTAL PROTEIN 6.3 GM/DL (6.4-8.2)
[2021-10-29] MEDS ORDERED: POTASSIUM CL 10MEQ/50ML IVPB 50 ML IV SCH (06:00)
[2021-10-29] MEDS ORDERED: KCL 20 MEQ TAB (K-DUR) PO SCH (06:00)
[2021-10-29] MEDS ORDERED: MAGNESIUM 1 GM/100 ML IVPB 100 ML IV SCH (06:00)
[2021-10-29] MEDS ORDERED: inSUlin ASPART (NovoLOG) 1 UNIT/0.01 ML (CHARGE PER UNIT) SC SCH (06:00)
[2021-10-29] MEDS: POTASSIUM CL 10MEQ/50ML IVPB 50 ML IV SCH ×2 (06:25→07:28)
--- NOTE | 2021-10-29 09:44 | History & Physical ---
HPI History of Present Illness: Patient is drowsy but arousable and answers some questions but with significant delay. He is able to state his name, knows he is in the hospital and is able to state the date, month and year. He does not know why he is in the hospital, but remembers he came by emergency. When asked about last methamphetamine use he re plied "October 28". Source: patient Exam Limitations: clinical condition Date seen by provider: Oct 29, 2021 Time Seen by Provider: 09:44 Attending Physician Renetta Yanez MD Consult Date of Admission Oct 28, 2021 at 16:07 Home Medications Home Medications Reviewed patient Home Medication Reconciliation performed by pharmacy medication reconciliations sensor technician and/or nursing. Patients Allergies have been reviewed. Allergies Coded Allergies: No Known Drug Allergies (Unverified , 12/14/17) [id number]-Lalgnq Hx Patient Social History Drug of Choice: HX +IV METH AND COCAINE, THC USE. NOW SMOKES METH AND OCCASI ONALLY THC Smoking Status: Unknown if Ever Smoked Former smoker/When Quit: Mar 03, 2002 2nd Hand Smoke Exposure: No Recent Hopitalizations: Yes ([place]-HEART CATH- 2 STENTS PLACED) Alcohol Use?: Unable to obtain Substance type: Amphetamines, Methamphetamine Have you traveled recently?: No Immunizations Up To Date Tetanus Booster (TDap): Unknown Influenza Vaccine Up-to-Date: No; Not Current First/Initial COVID19 Vaccinat: 12/24/20 Second COVID19 Vaccination Anshu: 02/13/21 COVID19 Vaccine Public Information Specialist: Moderna Past Medical History PMHx: Hepatitis C Liver transplant Diabetes mellitus type II CAD s/p stenting PSurgHx: 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 Appendectomy Coronary artery stenting Family Medical History Family History: Cystic fibrosis 19 MOTHER G8 SISTER FH: breast cancer G8 SISTER Myocardial infarction 19 FATHER Review of Systems ([facility]) Constitutional: other (unable to obtain due to clinical status) Reviewed Test Results Reviewed Test Results Lab Laboratory Tests Test 10/28/21 13:02 10/28/21 13:12 10/28/21 15:15 10/28/21 17:55 Range/Units White Blood Count 14.3 H 4.3-11.0 10^3/uL Red Blood Count 4.65 4.30-5.52 10^6/uL Hemoglobin 13.6 13.3-17.7 g/dL Hematocrit 40 40-54 % Mean Corpuscular Volume 87 80-99 fL Mean Corpuscular Hemoglobin 29 25-34 pg Mean Corpuscular Hemoglobin Concent 34 32-36 g/dL Red Cell Distribution Width 13.7 10.0-14.5 % Platelet Count 378 130-400 10^3/uL Mean Platelet Volume 10.8 9.0-12.2 fL Immature Granulocyte % (Auto) 0 % Neutrophils (%) (Auto) 80 H 42-75 % Lymphocytes (%) (Auto) 11 L 12-44 % Monocytes (%) (Auto) 8 0-12 % Eosinophils (%) (Auto) 0 0-10 % Basophils (%) (Auto) 0 0-10 % Neutrophils # (Auto) 11.5 H 1.8-7.8 10^3/uL Lymphocytes # (Auto) 1.6 1.0-4.0 10^3/uL Monocytes # (Auto) 1.2 H 0.0-1.0 10^3/uL Eosinophils # (Auto) 0.0 0.0-0.3 10^3/uL Basophils # (Auto) 0.0 0.0-0.1 10^3/uL Immature Granulocyte # (Auto) 0.1 0.0-0.1 10^3/uL Neutrophils % (Manual) 76 % Lymphocytes % (Manual) 8 % Monocytes % (Manual) 11 % Band Neutrophils 5 % Blood Morphology Comment NORMAL Prothrombin Time 15.0 H 12.2-14.7 SEC INR Comment 1.1 0.8-1.4 Activated Partial Thromboplast Time 31 24-35 SEC Sodium Level 137 135-145 MMOL/L Potassium Level 4.3 3.6-5.0 MMOL/L Chloride Level 104 98-107 MMOL/L Carbon Dioxide Level 19 L 21-32 MMOL/L Anion Gap 14 5-14 MMOL/L Blood Urea Nitrogen 37 H 7-18 MG/DL Creatinine 2.37 H 0.60-1.30 MG/DL Estimat Glomerular Filtration Rate 29 BUN/Creatinine Ratio 16 Glucose Level 264 H 70-105 MG/DL Lactic Acid Level 2.01 *H 2.98 *H 0.50-2.00 MMOL/L Calcium Level 8.8 8.5-10.1 MG/DL Corrected Calcium 9.3 8.5-10.1 MG/DL Phosphorus Level 6.1 H 2.3-4.7 MG/DL Magnesium Level 1.5 L 1.6-2.4 MG/DL Total Bilirubin 1.2 H 0.1-1.0 MG/DL Aspartate Amino Transf (AST/SGOT) 27 5-34 U/L Alanine Aminotransferase (ALT/SGPT) 29 0-55 U/L Alkaline Phosphatase 84 40-136 U/L Ammonia 27 11-32 UMOL/L Total Creatine Kinase 305 H 30-200 U/L Total Protein 7.0 6.4-8.2 GM/DL Albumin 3.4 3.2-4.5 GM/DL Procalcitonin 5.52 H <0.10 NG/ML Salicylates Level < 5.0 L 5.0-20.0 MG/DL Acetaminophen Level < 10 L 10-30 UG/ML Serum Alcohol < 10 <10 MG/DL Glucometer 267 H 70-110 MG/DL Urine Color YELLOW Urine Clarity CLEAR Urine pH 6.0 5-9 Urine Specific [place] >=1.030 1.016-1.022 Urine Protein TRACE H NEGATIVE Urine Glucose (UA) NEGATIVE NEGATIVE Urine Ketones TRACE H NEGATIVE Urine Nitrite NEGATIVE NEGATIVE Urine Bilirubin NEGATIVE NEGATIVE Urine Urobilinogen 0.2 < = 1.0 MG/DL Urine Leukocyte Esterase NEGATIVE NEGATIVE Urine RBC (Auto) NEGATIVE NEGATIVE Urine RBC NONE /HPF Urine WBC NONE /HPF Urine Squamous Epithelial Cells RARE /HPF Urine Crystals NONE /LPF Urine Bacteria NEGATIVE /HPF Urine Casts NONE /LPF Urine Mucus NEGATIVE /LPF Urine Culture Indicated NO Urine Opiates Screen NEGATIVE NEGATIVE Urine Oxycodone Screen NEGATIVE NEGATIVE Urine Methadone Screen NEGATIVE NEGATIVE Urine Propoxyphene Screen NEGATIVE NEGATIVE Urine Barbiturates Screen NEGATIVE NEGATIVE Ur Tricyclic Antidepressants Screen NEGATIVE NEGATIVE Urine Phencyclidine Screen NEGATIVE NEGATIVE Urine Amphetamines Screen POSITIVE H NEGATIVE Urine Methamphetamines Screen POSITIVE H NEGATIVE Urine Benzodiazepines Screen NEGATIVE NEGATIVE Urine Cocaine Screen NEGATIVE NEGATIVE Urine Cannabinoids Screen NEGATIVE NEGATIVE Test 10/28/21 18:30 10/28/21 20:28 10/28/21 23:00 10/29/21 00:00 Range/Units CSF Tube Number 4 CSF Appearance CLEAR CSF Color COLORLESS CSF WBC 2 0-5 CELLS CSF RBC 3 H 0-0 CELLS CSF Lymphocytes % CSF Mononuclear WBCs % CSF Polynuclear WBCs % CSF Glucose 131 H 50-80 MG/DL CSF Total Protein 51 H 15-40 MG/DL Lactic Acid Level 2.19 *H 1.84 0.50-2.00 MMOL/L Glucometer 202 H 70-110 MG/DL Test 10/29/21 04:10 10/29/21 06:07 Range/Units White Blood Count 12.2 H 4.3-11.0 10^3/uL Red Blood Count 4.11 L 4.30-5.52 10^6/uL Hemoglobin 11.8 L 13.3-17.7 g/dL Hematocrit 36 L 40-54 % Mean Corpuscular Volume 87 80-99 fL Mean Corpuscular Hemoglobin 29 25-34 pg Mean Corpuscular Hemoglobin Concent 33 32-36 g/dL Red Cell Distribution Width 14.0 10.0-14.5 % Platelet Count 311 130-400 10^3/uL Mean Platelet Volume 10.5 9.0-12.2 fL Immature Granulocyte % (Auto) 0 % Neutrophils (%) (Auto) 81 H 42-75 % Lymphocytes (%) (Auto) 10 L 12-44 % Monocytes (%) (Auto) 8 0-12 % Eosinophils (%) (Auto) 0 0-10 % Basophils (%) (Auto) 0 0-10 % Neutrophils # (Auto) 9.9 H 1.8-7.8 10^3/uL Lymphocytes # (Auto) 1.3 1.0-4.0 10^3/uL Monocytes # (Auto) 1.0 0.0-1.0 10^3/uL Eosinophils # (Auto) 0.0 0.0-0.3 10^3/uL Basophils # (Auto) 0.0 0.0-0.1 10^3/uL Immature Granulocyte # (Auto) 0.0 0.0-0.1 10^3/uL Sodium Level 142 135-145 MMOL/L Potassium Level 3.6 3.6-5.0 MMOL/L Chloride Level 109 H 98-107 MMOL/L Carbon Dioxide Level 18 L 21-32 MMOL/L Anion Gap 15 H 5-14 MMOL/L Blood Urea Nitrogen 25 H 7-18 MG/DL Creatinine 1.07 0.60-1.30 MG/DL Estimat Glomerular Filtration Rate 76 BUN/Creatinine Ratio 23 Glucose Level 189 H 70-105 MG/DL Calcium Level 8.3 L 8.5-10.1 MG/DL Corrected Calcium 9.1 8.5-10.1 MG/DL Phosphorus Level 1.5 L 2.3-4.7 MG/DL Magnesium Level 1.8 1.6-2.4 MG/DL Total Bilirubin 1.2 H 0.1-1.0 MG/DL Aspartate Amino Transf (AST/SGOT) 28 5-34 U/L Alanine Aminotransferase (ALT/SGPT) 24 0-55 U/L Alkaline Phosphatase 76 40-136 U/L Total Protein 6.3 L 6.4-8.2 GM/DL Albumin 3.0 L 3.2-4.5 GM/DL Glucometer 198 H 70-110 MG/DL Radiology CT head 10/28/21: "IMPRESSION: Mild senescent findings in the brain without CT evidence of acute intracranial abnormality. There is moderate pansinusitis." CXR 10/28/21: "IMPRESSION: Mild cardiomegaly and underlying COPD change. There is some new infiltrate in the right lung base, pneumonia is not excluded. Follow-up is recommended." Physical Exam-([facility]) Physical Exam Vital Signs VS - Last 72 Hours, by Label 10/28/21 10/28/21 10/28/21 10/28/21 12:56 18:10 18:30 18:56 Temp 36.2 36.1 Pulse 93 80 80 Resp 16 21 14 B/P (MAP) 105/69 (81) 115/78 135/85 Pulse Ox 92 95 94 97 O2 Delivery Room Air Room Air Nasal Cannula Nasal Cannula O2 Flow Rate 2.00 2.00 10/28/21 10/28/21 10/28/21 10/28/21 19:00 19:00 20:00 20:00 Temp 36.5 Pulse 83 89 Resp 13 B/P (MAP) 133/66 Pulse Ox 96 97 O2 Delivery Nasal Cannula Room Air O2 Flow Rate 2.00 10/28/21 10/28/21 10/28/21 10/28/21 20:00 20:25 21:00 22:00 Pulse 80 87 86 Resp 21 17 22 B/P (MAP) 92/54 110/64 99/48 Pulse Ox 96 92 91 O2 Delivery Nasal Cannula Room Air Room Air Room Air O2 Flow Rate 2.00 10/28/21 10/28/21 10/28/21 10/28/21 22:11 22:31 23:00 23:50 Pulse 87 Resp 23 B/P (MAP) 119/64 Pulse Ox 94 96 91 O2 Delivery Nasal Cannula Nasal Cannula Nasal Cannula OxyMask O2 Flow Rate 2.00 2.00 2.00 6.00 10/29/21 10/29/21 10/29/21 10/29/21 00:00 00:00 00:00 00:12 Temp 36.6 Pulse 92 Resp 22 B/P (MAP) 110/55 Pulse Ox 97 90 91 O2 Delivery OxyMask OxyMask OxyMask O2 Flow Rate 6.00 6.00 8.00 10/29/21 10/29/21 10/29/21 10/29/21 01:00 01:00 02:00 03:00 Pulse 93 100 94 98 Resp B/P (MAP) 97/60 119/51 146/66 Pulse Ox 96 96 95 O2 Delivery OxyMask OxyMask OxyMask O2 Flow Rate 6.00 6.00 6.00 10/29/21 10/29/21 10/29/21 10/29/21 04:00 04:00 04:00 05:00 Temp 37.8 Pulse 98 104 Resp B/P (MAP) 116/53 140/79 Pulse Ox 94 97 97 O2 Delivery OxyMask OxyMask OxyMask O2 Flow Rate 6.00 6.00 6.00 10/29/21 10/29/21 10/29/21 10/29/21 06:00 07:00 07:00 07:35 Temp 38.0 Pulse 101 101 109 Resp 22 B/P (MAP) 133/68 124/69 Pulse Ox 95 97 O2 Delivery OxyMask OxyMask O2 Flow Rate 6.00 6.00 10/29/21 10/29/21 10/29/21 08:00 08:00 09:00 Pulse 101 105 Resp 20 B/P (MAP) 123/74 111/69 Pulse Ox 97 98 92 O2 Delivery OxyMask OxyMask OxyMask O2 Flow Rate 6.00 6.00 6.00 Capillary Refill : Less Than 3 Seconds General Appearance: no apparent distress HEENT: PERRL/EOMI Respiratory: rhonchi Cardiovascular: regular rate, rhythm, no murmur Gastrointestinal: normal bowel sounds, non tender, soft, other (large right sided scar under liver, right inguinal scar) Extremities: no pedal edema, other (all toes amputated on right foot, left foot with marked deviation of great toe, absent second toe, partial third toe amputation) Neurologic/Psychiatric: cycle repairer II-XII nml as tested (does not follow instructions to open mouth wide enough to view palatal raise), alert, oriented x 3, other (flat affect, delayed speech, repetitive speech, moving all extremities equally) Skin: warm/dry, other (dried blood around nares, excoriations on feet) Assessment/Plan Assessment/Plan Admission Status: Inpatient Order (span 2 midnights) Reason for Inpatient Admission: Severe sepsis and altered mental status (1) Sepsis Status: Acute Assessment & Plan: Suspect secondary to pneumonia. LP also done due to seizure and AMS, no evidence of meningitis. STEPHANIA resolving. Qualifiers: (2) Pneumonia Status: Acute Assessment & Plan: Cefepime Qualifiers: Qualified Codes: J18.9 - Pneumonia, unspecified organism (3) Seizure Status: Acute Assessment & Plan: New onset in ER, LP done and no evidence of meningitis, suspect may be related to methamphetamine use. Seizure precautions. CT head with pansinusitis otherwise no acute findings. (4) Altered mental status Status: Acute Assessment & Plan: Improving, oriented x 3 but with delay this am. Continue treating sepsis and monitor closely. Qualifiers: Qualified Codes: R40.1 - Stupor (5) Diabetes mellitus type 2 with complications Status: Chronic Assessment & Plan: Diabetic diet, sliding scale insulin. (6) Anemia Status: Chronic Qualifiers: Qualified Codes: D63.8 - Anemia in other chronic diseases classified elsewhere (7) Methamphetamine use Status: Chronic Assessment & Plan: director field services consult. (8) CAD (coronary artery disease) Status: Chronic Assessment & Plan: Resume home statin, aspirin and ticagrelor Qualifiers: Qualified Codes: I25.10 - Atherosclerotic heart disease of [place] coronary artery without angina pectoris (9) Mixed hyperlipidemia Status: Chronic Assessment & Plan: Resume home statin (10) Primary hypertension Status: Chronic Assessment & Plan: Hypotensive on admission resolved with IVF, hold home antihypertensives until needed (11) Paroxysmal atrial fibrillation Status: Chronic Assessment & Plan: Last hospital stay Cardiology notes document decreasing amiodarone to 100 mg, but he remained on 200 mg outpatient, will resume 100 mg. (12) Chronic systolic heart failure Status: Chronic Assessment & Plan: 07/2021 echo with EF 35-40%, grade 1 diastolic dysfunction. (13) Liver transplant status Status: Chronic (14) At risk for deep venous thrombosis Status: Acute Assessment & Plan: Enoxaparin RENETTA YANEZ MD Oct 29, 2021 09:44
[2021-10-29] MEDS ORDERED: INSU100I29 SQ (11:32)
[2021-10-29] MEDS ORDERED: INSU100I14 SQ (11:32)
[2021-10-29] MEDS: ENOXAPARIN 40 MG/0.4 ML (LOVENOX) SYR SQ SCH (12:54)
[2021-10-29] MEDS: CEFEPIME 1,000 MG/NS 50 ML IVPB IV SCH ×6 (12:54→23:53)
[2021-10-29] MEDS ORDERED: METO50TA7 PO (13:36)
[2021-10-29] MEDS ORDERED: TICA90TA PO (13:36)
--- NOTE | 2021-10-29 16:11 | Tele-ICU Progress Note ---
Subjective Date Seen by a Provider: Oct 29, 2021 Time Seen by a Provider: 08:28 Subjective/Events-last exam (Tele-ICU Physician , Progress Note ) Available chart/ vitals / labs / Images reviewed Video assessment done using teleICU camera, rest of exam as per RN Discussed with RN , EXAM PER RN Events overnight : febrile 38 FiO2 - 6l I/O = pos 2300 Drips: Pressors: , hemodynamically stable Consultants: Hospital course: 10/28 - to ER with AMS , seizure, STEPHANIA, suspected infection A/P: ID ( leukocytosis , elev PCT 5.5) - ? RLL PNA vs FABRIC FINISHER infection , + sinusitis on CT - s/p LP in ER, cell counts WNL , and culture pending - cameron cultures pending - cefepime initiated Hypotension - presumed sepsis + hypovolemia - improved Altered mental status = CTH 10/28 - no acute findinjgs - ? postictal vs TME vs infection vs amphetamine toxicity or withdrawal - IMPROVED STEPHANIA - IMPROVED with hydration - CK 300 h/o CAD , CHF - No evidence of decomponsation, fluid overload - will check EKG for baseline0. h/o A fib, currently in NSR - not on AC - on amio Seizure in ER 2 min , Resolved without any intervention, but seized agin - ativan given - ? ETON withdrawal - CT 10/28 - no acute changes Positive for methamphetamines h/o ETON use - CIWA - monitor for Sx -low Mg - replace DM II - home levemir 30 u qhs, aspart 15u TID and metformin - will give ISS medium, q6h and levemir 10u qhs h/o HEPATITIS C--S/P INTERFERON TREATMENT; LIVER TRANSPLANT 2002) - LFTs normal, PT/INR borderline at 15/1.1 Lines : (Central Line Necessity Reviewed) Jackson: OG: Nutrition: Analgesia: Anxiety/ delirium VTE Prophylaxis: lovenox Stress Ulcer Prophylaxis: po Plans in collaboration with bedside consultants and IM MDs. Discussed with RN to reach out if any questions or concerns A total of 32 minutes of critical care time was devoted to this patient today, required to treat and/or prevent further deterioration of critical care condition ( as above) Sepsis Event Evaluation Height, Weight, BMI Height: 6'0.00" Weight: 240lbs. 0.0oz. [id number]; 28.07 BMI Method:Stated Focused Exam Lactate Level 10/28/21 17:55: Lactic Acid Level 2.98*H 10/28/21 20:28: Lactic Acid Level 2.19*H 10/28/21 23:00: Lactic Acid Level 1.84 Exam Exam Patient acknowledged, consented, and participated in this virtual visit which was conducted using real time audio/video Vital Signs Date Time Temp Pulse Resp B/P (MAP) Pulse Ox O2 Delivery O2 Flow Rate FiO2 10/29/21 12:00 99 23 147/80 90 OxyMask 6.00 10/29/21 11:00 92 22 155/84 95 OxyMask 6.00 10/29/21 10:00 96 23 121/66 94 OxyMask 6.00 10/29/21 09:00 105 20 111/69 92 OxyMask 6.00 10/29/21 08:00 98 OxyMask 6.00 10/29/21 08:00 101 22 123/74 97 OxyMask 6.00 10/29/21 07:35 38.0 10/29/21 07:00 109 10/29/21 07:00 101 22 124/69 97 OxyMask 6.00 10/29/21 06:00 101 23 133/68 95 OxyMask 6.00 10/29/21 05:00 104 27 140/79 97 OxyMask 6.00 10/29/21 04:00 97 OxyMask 6.00 10/29/21 04:00 98 25 116/53 94 OxyMask 6.00 10/29/21 04:00 37.8 10/29/21 03:00 98 24 146/66 95 OxyMask 6.00 10/29/21 02:00 94 22 119/51 96 OxyMask 6.00 10/29/21 01:00 100 10/29/21 01:00 93 22 97/60 96 OxyMask 6.00 10/29/21 00:12 91 OxyMask 8.00 10/29/21 00:00 92 22 110/55 90 OxyMask 6.00 10/29/21 00:00 36.6 10/29/21 00:00 97 OxyMask 6.00 10/28/21 23:50 91 OxyMask 6.00 10/28/21 23:00 87 23 119/64 96 Nasal Cannula 2.00 10/28/21 22:31 94 Nasal Cannula 2.00 10/28/21 22:11 Nasal Cannula 2.00 10/28/21 22:00 86 22 99/48 91 Room Air 10/28/21 21:00 87 17 110/64 92 Room Air 10/28/21 20:25 Room Air 10/28/21 20:00 80 21 92/54 96 Nasal Cannula 2.00 10/28/21 20:00 97 Room Air 10/28/21 20:00 36.5 10/28/21 19:00 89 13 133/66 96 Nasal Cannula 2.00 10/28/21 19:00 83 10/28/21 18:56 36.1 80 14 135/85 97 Nasal Cannula 2.00 10/28/21 18:30 94 Nasal Cannula 2.00 10/28/21 18:10 80 21 115/78 95 Room Air I & O 10/29/21 07:00 Intake Total 4550 ml Output Total 2350 ml Balance 2200 ml Height & Weight Height: 6'0.00" Weight: 240lbs. 0.0oz. 108.655202mo; 28.07 BMI Method:Stated General Appearance: No Apparent Distress Respiratory: No Accessory Muscle Use, No Respiratory Distress, Crackles (bilat bases) Cardiovascular: Normal Peripheral Pulses Capillary Refill: Less Than 3 Seconds Peripheral Pulses: 1+ Radial Pulses (R), 1+ Radial Pulses (L) Gastrointestinal: normal bowel sounds, non tender, soft, other (large right sided scar under liver, right inguinal scar) Results Lab Laboratory Tests 10/28/21 13:02 10/29/21 04:10 Assessment/Plan Assessment/Plan ` NESS DUCKWORTH MD Oct 29, 2021 16:11
[2021-10-29] MEDS: TICAGRELOR 90 MG TABLET (BRILINTA) PO SCH (19:54)
[2021-10-30] MEDS ORDERED: meTOprolol TARTRATE 50 MG (LOPRESSOR) TAB ONE (02:38)
[2021-10-30] MEDS ORDERED: AMIODARONE 200 MG (CORDARONE) TAB ONE (02:38)
[2021-10-30] MEDS ORDERED: meTOproloL SUCCINATE 50 MG (TOPROL XL) TAB PO ONE (02:46)
[2021-10-30] MEDS: meTOproloL SUCCINATE 50 MG (TOPROL XL) TAB PO SCH (02:47)
[2021-10-30] MEDS: AMIODARONE 200 MG (CORDARONE) TAB PO SCH (02:47)
[2021-10-30] MEDS: LACTATED RINGERS 1,000 ML IV SCH ×3 (04:21→19:53)
[2021-10-30] MEDS: inSUlin ASPART (NovoLOG) 1 UNIT/0.01 ML (CHARGE PER UNIT) SC SCH ×4 (05:31→21:41)
[2021-10-30] MEDS: CEFEPIME 1,000 MG/NS 50 ML IVPB IV SCH ×8 (05:34→23:47)
[2021-10-30] MEDS: MULTIVIT W/MINERALS TAB (THERAGRAN M) PO SCH (05:35)
[2021-10-30] MEDS: ACETAMINOPHEN 500 MG TAB (TYLENOL) PO PRN ×3 (05:36→19:59)
[2021-10-30 06:35] LABS: BASOPHILS % (AUTO) 0 % (0-10); EOSINOPHILS # (AUTO) 0.1 10^3/uL (0.0-0.3); EOSINOPHILS % (AUTO) 1 % (0-10); HEMATOCRIT 40 % (40-54); HEMOGLOBIN 13.5 g/dL (13.3-17.7); LYMPHOCYTES # (AUTO) 1.1 10^3/uL (1.0-4.0); LYMPHOCYTES % (AUTO) 10 % (12-44); MEAN CORPUSCULAR HEMOGLOBIN 29 pg (25-34); MEAN CORPUSCULAR HGB CONC 34 g/dL (32-36); MEAN CORPUSCULAR VOLUME 87 fL (80-99); MEAN PLATELET VOLUME 10.4 fL (9.0-12.2); MONOCYTES # (AUTO) 0.8 10^3/uL (0.0-1.0); MONOCYTES % (AUTO) 7 % (0-12); NEUTROPHILS # (AUTO) 8.7 10^3/uL (1.8-7.8); NEUTROPHILS % (AUTO) 82 % (42-75); PLATELET COUNT 277 10^3/uL (130-400); WHITE BLOOD COUNT 10.6 10^3/uL (4.3-11.0)
[2021-10-30 06:43] LABS: POTASSIUM 3.2 MMOL/L (3.6-5.0)
[2021-10-30 06:44] LABS: CALCIUM 8.7 MG/DL (8.5-10.1)
[2021-10-30 06:46] LABS: TOTAL PROTEIN 6.7 GM/DL (6.4-8.2)
[2021-10-30 06:47] LABS: BILIRUBIN,TOTAL 1.7 MG/DL (0.1-1.0)
[2021-10-30 06:49] LABS: CREATININE SERUM 0.7 MG/DL (0.60-1.30)
[2021-10-30 06:52] LABS: MAGNESIUM 1.5 MG/DL (1.6-2.4)
[2021-10-30] MEDS ORDERED: POTASSIUM PHOSPHATE INJ 30 MM in NS (IVPB) 250 ML IV NR (07:50)
--- NOTE | 2021-10-30 08:25 | Progress Note ---
Subjective Subjective/Events-last exam Pt is very sleepy this morning, but when awakened is oriented to self and location and month and year. He says he feels "so-so". Focused Exam Lactate Level 10/28/21 17:55: Lactic Acid Level 2.98*H 10/28/21 20:28: Lactic Acid Level 2.19*H 10/28/21 23:00: Lactic Acid Level 1.84 Objective Exam Last Set of Vital Signs Vital Signs Date Time Temp Pulse Resp B/P (MAP) Pulse Ox O2 Delivery O2 Flow Rate FiO2 10/30/21 07:06 36.3 79 18 101/60 95 Nasal Cannula 2.00 Capillary Refill : Less Than 3 Seconds I&O Intake and Output 10/30/21 00:00 Intake Total 2200 ml Output Total 3300 ml Balance -1100 ml Intake Oral 200 ml IV Total 2000 ml Output Urine Total 3300 ml General: Alert Lungs: Clear to Auscultation, Normal Air Movement Heart: Regular Rate Abdomen: Normal Bowel Sounds, Soft Neuro: Other (oriented to self and location and month/year) Results/Procedures Lab Laboratory Tests 10/29/21 16:26: Glucometer 169H 10/29/21 21:17: Glucometer 162H 10/30/21 04:55: Glucometer 136H 10/30/21 06:04: White Blood Count 10.6, Red Blood Count 4.65, Hemoglobin 13.5, Hematocrit 40, Mean Corpuscular Volume 87, Mean Corpuscular Hemoglobin 29, Mean Corpuscular Hemoglobin Concent 34, Red Cell Distribution Width 14.1, Platelet Count 277, Mean Platelet Volume 10.4, Immature Granulocyte % (Auto) 0, Neutrophils (%) (Auto) 82H, Lymphocytes (%) (Auto) 10L, Monocytes (%) (Auto) 7, Eosinophils (%) (Auto) 1, Basophils (%) (Auto) 0, Neutrophils # (Auto) 8.7H, Lymphocytes # (Auto) 1.1, Monocytes # (Auto) 0.8, Eosinophils # (Auto) 0.1, Basophils # (Auto) 0.0, Immature Granulocyte # (Auto) 0.0, Sodium Level 137, Potassium Level 3.2L, Chloride Level 104, Carbon Dioxide Level 17L, Anion Gap 16H, Blood Urea Nitrogen 11, Creatinine 0.70, Estimat Glomerular Filtration Rate 100, BUN/Creatinine Ratio 16, Glucose Level 148H, Calcium Level 8.7, Corrected Calcium 9.5, Phosphorus Level 1.0*L, Magnesium Level 1.5L, Total Bilirubin 1.7H, Aspartate Amino Transf (AST/SGOT) 23, Alanine Aminotransferase (ALT/SGPT) 21, Alkaline Phosphatase 84, Total Protein 6.7, Albumin 3.0L Microbiology 10/28/21 MRSA Screen - Final, Complete MRSA not isolated 10/28/21 Gram Stain - Final, Resulted 10/28/21 CSF Culture - Preliminary, Resulted No growth 10/28/21 Blood Culture - Preliminary, Resulted No growth Radiology CT head 10/28/21: "IMPRESSION: Mild senescent findings in the brain without CT evidence of acute intracranial abnormality. There is moderate pansinusitis." CXR 10/28/21: "IMPRESSION: Mild cardiomegaly and underlying COPD change. There is some new infiltrate in the right lung base, pneumonia is not excluded. Follow-up is recommended. Assessment/Plan Assessment/Plan (1) Sepsis Status: Acute Assessment & Plan: Suspect secondary to pneumonia. LP also done due to seizure and AMS, no evidence of meningitis. STEPHANIA resolving. Qualifiers: (2) Pneumonia Status: Acute Assessment & Plan: Cefepime Qualifiers: Qualified Codes: J18.9 - Pneumonia, unspecified organism (3) Seizure Status: Acute Assessment & Plan: New onset in ER, LP done and no evidence of meningitis, stephon pect may be related to methamphetamine use. Seizure precautions. CT head with pansinusitis otherwise no acute findings. (4) Altered mental status Status: Acute Assessment & Plan: Improving, oriented x 3 but with delayed speech on 10/29. Continue treating sepsis and monitor closely. 10/30 falling asleep throughout exam, but speech slightly more clear when awake than yesterday Qualifiers: Qualified Codes: R40.1 - Stupor (5) Diabetes mellitus type 2 with complications Status: Chronic Assessment & Plan: Diabetic diet, sliding scale insulin. A1c improved to 8.4 compared to 13.1 in July. (6) Anemia Status: Chronic Qualifiers: Qualified Codes: D63.8 - Anemia in other chronic diseases classified elsewhere (7) Methamphetamine use Status: Chronic Assessment & Plan: marine services technician consult. (8) CAD (coronary artery disease) Status: Chronic Assessment & Plan: Resume home statin, aspirin and ticagrelor Qualifiers: Qualified Codes: I25.10 - Atherosclerotic heart disease of [place] coronary artery without angina pectoris (9) Mixed hyperlipidemia Status: Chronic Assessment & Plan: Resume home statin (10) Primary hypertension Status: Chronic Assessment & Plan: Hypotensive on admission resolved with IVF, hold home antihypertensives until needed (11) Paroxysmal atrial fibrillation Status: Chronic Assessment & Plan: Last hospital stay Cardiology notes document decreasing amiodarone to 100 mg, but he remained on 200 mg outpatient, will resume 100 mg. (12) Chronic systolic heart failure Status: Chronic Assessment & Plan: 07/2021 echo with EF 35-40%, grade 1 diastolic dysfunction. (13) Liver transplant status Status: Chronic (14) At risk for deep venous thrombosis Status: Acute Assessment & Plan: Enoxaparin RENETTA AGUSTIN MD Oct 30, 2021 08:25
[2021-10-30] MEDS ORDERED: NS (IVPB) 250 ML IV ONE (08:30)
[2021-10-30] MEDS: TICAGRELOR 90 MG TABLET (BRILINTA) PO SCH ×2 (08:47→19:54)
[2021-10-30] MEDS: AtorvaSTATin TABLET 10 MG TABLET PO SCH (08:47)
[2021-10-30] MEDS: ASPIRIN E.C. 81 MG (ECOTRIN) TAB PO SCH (08:47)
[2021-10-30] MEDS: ENOXAPARIN 40 MG/0.4 ML (LOVENOX) SYR SQ SCH (11:55)
[2021-10-30 15:17] VITALS: BP 106/65
[2021-10-30 19:37] VITALS: BP 115/62
[2021-10-30 23:38] VITALS: BP 108/67
[2021-10-31] VITALS (7 sets, daily range): BP systolic 105–144; BP diastolic 60–81
[2021-10-31] MEDS: LACTATED RINGERS 1,000 ML IV SCH ×3 (03:03→16:11)
[2021-10-31] MEDS: ACETAMINOPHEN 500 MG TAB (TYLENOL) PO PRN (03:58)
[2021-10-31] MEDS: CEFEPIME 1,000 MG/NS 50 ML IVPB IV SCH ×8 (05:56→23:46)
[2021-10-31] MEDS: inSUlin ASPART (NovoLOG) 1 UNIT/0.01 ML (CHARGE PER UNIT) SC SCH ×4 (05:56→21:23)
[2021-10-31] MEDS: MULTIVIT W/MINERALS TAB (THERAGRAN M) PO SCH (05:56)
[2021-10-31 06:11] LABS: BASOPHILS % (AUTO) 0 % (0-10); EOSINOPHILS # (AUTO) 0.2 10^3/uL (0.0-0.3); EOSINOPHILS % (AUTO) 3 % (0-10); HEMATOCRIT 29 % (40-54); HEMOGLOBIN 9.9 g/dL (13.3-17.7); LYMPHOCYTES % (AUTO) 11 % (12-44); MEAN CORPUSCULAR HEMOGLOBIN 29 pg (25-34); MEAN CORPUSCULAR HGB CONC 34 g/dL (32-36); MEAN CORPUSCULAR VOLUME 86 fL (80-99); MEAN PLATELET VOLUME 10.4 fL (9.0-12.2); MONOCYTES # (AUTO) 0.6 10^3/uL (0.0-1.0); MONOCYTES % (AUTO) 6 % (0-12); NEUTROPHILS # (AUTO) 7.5 10^3/uL (1.8-7.8); NEUTROPHILS % (AUTO) 80 % (42-75); PLATELET COUNT 297 10^3/uL (130-400); WHITE BLOOD COUNT 9.3 10^3/uL (4.3-11.0)
[2021-10-31 06:33] LABS: ALBUMIN 2.7 GM/DL (3.2-4.5); BILIRUBIN,TOTAL 0.9 MG/DL (0.1-1.0); CALCIUM 8.2 MG/DL (8.5-10.1); CREATININE SERUM 0.67 MG/DL (0.60-1.30); MAGNESIUM 1.4 MG/DL (1.6-2.4); PHOSPHORUS 1.1 MG/DL (2.3-4.7); POTASSIUM 3.1 MMOL/L (3.6-5.0)
[2021-10-31] MEDS ORDERED: KCL 20 MEQ TAB (K-DUR) PO ONE (08:15)
[2021-10-31] MEDS ORDERED: MAGNESIUM 1 GM/100 ML IVPB 100 ML IV ONE (08:15)
[2021-10-31] MEDS: AtorvaSTATin TABLET 10 MG TABLET PO SCH (09:21)
[2021-10-31] MEDS: TICAGRELOR 90 MG TABLET (BRILINTA) PO SCH ×2 (09:22→21:13)
[2021-10-31] MEDS: meTOproloL SUCCINATE 50 MG (TOPROL XL) TAB PO SCH (09:22)
[2021-10-31] MEDS: AMIODARONE 200 MG (CORDARONE) TAB PO SCH (09:22)
[2021-10-31] MEDS: POT PHOS/NA PHOS (K-PHOS NEUTRAL) PO SCH ×3 (09:23→21:14)
[2021-10-31] MEDS: ASPIRIN E.C. 81 MG (ECOTRIN) TAB PO SCH (09:23)
--- NOTE | 2021-10-31 09:50 | Progress Note ---
Subjective Subjective/Events-last exam Pt states he is feeling pretty well today. His speech is markedly more clear and goal directed. He is able to state that he is in the hospital due to "kind of passing out" at home. He does agree he is not managing well at home and is agreeable to placement if possible. Focused Exam Lactate Level 10/28/21 17:55: Lactic Acid Level 2.98*H 10/28/21 20:28: Lactic Acid Level 2.19*H 10/28/21 23:00: Lactic Acid Level 1.84 Objective Exam Last Set of Vital Signs Vital Signs Date Time Temp Pulse Resp B/P (MAP) Pulse Ox O2 Delivery O2 Flow Rate FiO2 10/31/21 08:56 Nasal Cannula 2.00 10/31/21 08:35 36.9 83 18 135/74 (94) 97 Capillary Refill : Less Than 3 Seconds I&O Intake and Output 10/31/21 00:00 Intake Total 4595 ml Output Total 1250 ml Balance 3345 ml Intake Oral 1520 ml IV Total 3075 ml Output Urine Total 1250 ml General: Alert, No Acute Distress Lungs: Other (ronchi) Heart: Regular Rate, No Murmurs Abdomen: Normal Bowel Sounds, Soft Extremities: No Edema Psych/Mental Status: Mood NL Results/Procedures Lab Laboratory Tests 10/30/21 15:20: Glucometer 155H 10/30/21 20:52: Glucometer 222H 10/31/21 05:08: Glucometer 140H 10/31/21 05:51: White Blood Count 9.3, Red Blood Count 3.37L, Hemoglobin 9.9#L, Hematocrit 29L, Mean Corpuscular Volume 86, Mean Corpuscular Hemoglobin 29, Mean Corpuscular Hemoglobin Concent 34, Red Cell Distribution Width 13.9, Platelet Count 297, Mean Platelet Volume 10.4, Immature Granulocyte % (Auto) 1, Neutrophils (%) (Auto) 80H, Lymphocytes (%) (Auto) 11L, Monocytes (%) (Auto) 6, Eosinophils (%) (Auto) 3, Basophils (%) (Auto) 0, Neutrophils # (Auto) 7.5, Lymphocytes # (Auto) 1.0, Monocytes # (Auto) 0.6, Eosinophils # (Auto) 0.2, Basophils # (Auto) 0.0, Immature Granulocyte # (Auto) 0.1, Sodium Level 138, Potassium Level 3.1L, Chloride Level 105, Carbon Dioxide Level 20L, Anion Gap 13, Blood Urea Nitrogen 13, Creatinine 0.67, Estimat Glomerular Filtration Rate 102, BUN/Creatinine Ratio 19, Glucose Level 148H, Calcium Level 8.2L, Corrected Calcium 9.2, Phosphorus Level 1.1L, Magnesium Level 1.4L, Total Bilirubin 0.9, Aspartate Amino Transf (AST/SGOT) 18, Alanine Aminotransferase (ALT/SGPT) 13, Alkaline Phosphatase 78, Total Protein 6.0L, Albumin 2.7L Microbiology 10/28/21 MRSA Screen - Final, Complete MRSA not isolated 10/28/21 Gram Stain - Final, Resulted 10/28/21 CSF Culture - Preliminary, Resulted No growth 10/28/21 Blood Culture - Preliminary, Resulted Coryneform bacteria See Comments Radiology CT head 10/28/21: "IMPRESSION: Mild senescent findings in the brain without CT evidence of acute intracranial abnormality. There is moderate pansinusitis." CXR 10/28/21: "IMPRESSION: Mild cardiomegaly and underlying COPD change. There is some new infiltrate in the right lung base, pneumonia is not excluded. Follow-up is recommended. Assessment/Plan Assessment/Plan (1) Sepsis Status: Acute Assessment & Plan: Suspect secondary to pneumonia. LP also done due to seizure and AMS, no evidence of meningitis. STEPHANIA resolved. Qualifiers: (2) Pneumonia Status: Acute Assessment & Plan: Cefepime 10/31- on 1 lpm supplemental oxygen, wean as tolerated Qualifiers: Qualified Codes: J18.9 - Pneumonia, unspecified organism (3) Seizure Status: Acute Assessment & Plan: New onset in ER, LP done and no evidence of meningitis, suspect may be related to methamphetamine use. Seizure precautions. CT head with pansinusitis otherwise no acute findings. 10/31 no further seizure activity since admission. (4) Altered mental status Status: Acute Assessment & Plan: Improving, oriented x 3 but with delayed speech on 10/29. Continue treating sepsis and monitor closely. 10/30 falling asleep throughout exam, but speech slightly more clear when awake than yesterday 10/31 alert and oriented x 3 and able to give some information about why he is in the hospital Qualifiers: Qualified Codes: R40.1 - Stupor (5) Diabetes mellitus type 2 with complications Status: Chronic Assessment & Plan: Diabetic diet, sliding scale insulin. A1c improved to 8.4 compared to 13.1 in July. (6) Anemia Status: Chronic Qualifiers: Qualified Codes: D63.8 - Anemia in other chronic diseases classified elsewhere (7) Methamphetamine use Status: Chronic Assessment & Plan: information services consultant consult. (8) CAD (coronary artery disease) Status: Chronic Assessment & Plan: Resume home statin, aspirin and ticagrelor Qualifiers: Qualified Codes: I25.10 - Atherosclerotic heart disease of [place] coronary artery without angina pectoris (9) Mixed hyperlipidemia Status: Chronic Assessment & Plan: Resume home statin (10) Primary hypertension Status: Chronic Assessment & Plan: Hypotensive on admission resolved with IVF, resumed home metoprolol when BP improved and began to have tachycardia. (11) Paroxysmal atrial fibrillation Status: Chronic Assessment & Plan: Last hospital stay Cardiology notes document decreasing amiodarone to 100 mg, but he remained on 200 mg outpatient, will resume 100 mg. (12) Chronic systolic heart failure Status: Chronic Assessment & Plan: 07/2021 echo with EF 35-40%, grade 1 diastolic dysfunction. (13) Liver transplant status Status: Chronic (14) At risk for deep venous thrombosis Status: Acute Assessment & Plan: Enoxaparin RENETTA AGUSTIN MD Oct 31, 2021 09:50
[2021-10-31] MEDS: ENOXAPARIN 40 MG/0.4 ML (LOVENOX) SYR SQ SCH (11:16)
--- NOTE | 2021-10-31 16:51 | Physician Query Clarification ---
Physician Query-General Query to Physician: The medical record reflects the following clinical evidence: Clinical Indicators: RR 21 on admission requiring 02 at time of admission, with O2 up to 8 L, 90 to 93% on 6 L P/F = 136-157, respiratory rate 16 to high of 27. SOA with exertion documented by nurses later in the stay Risk Factor(s): Sepsis, Pneumonia, no documentation of home O2 use Treatment: Supplemental 02 up to 8L, IV fluids, IV ABX, Albuterol breathing RX, 1. Acute respiratory failure with hypoxia, present on admission 2. Other explanation of clinical findings 3. Unable to determine (no explanation for clinical findings) Please clarify and document your clinical opinion in the progress notes and discharge summary including the definitive and/or presumptive diagnosis, (suspected or probable), related to the above clinical findings. Please include clinical findings supporting your diagnosis. Akosua Kay MSN, RN Clinical Loop Tacker [phone] [email or web address] PHYSICIAN RESPONSE: Based on the clinical findings in the record, please respond to the query above on this document as an addendum. Physician Response: Physician Response 1 If you have questions please contact: Pipe Installer: Ext: Thank you for your time and cooperation. Clinical Loop Tacker/Pipe Installer This is a permanent part of the medical re cord AKOSUA KAY Oct 31, 2021 16:51 RENETTA AGUSTIN MD Nov 01, 2021 12:39
[2021-10-31] MEDS ORDERED: RT-ALBUTEROL SULF 2.5 MG/3 ML PRE-MIX VIAL INH PRN (19:45)
[2021-11-01 03:06] VITALS: BP 128/72
[2021-11-01] MEDS: POT PHOS/NA PHOS (K-PHOS NEUTRAL) PO SCH (03:06)
[2021-11-01] MEDS: MULTIVIT W/MINERALS TAB (THERAGRAN M) PO SCH (05:09)
[2021-11-01] MEDS: inSUlin ASPART (NovoLOG) 1 UNIT/0.01 ML (CHARGE PER UNIT) SC SCH ×4 (05:09→21:30)
[2021-11-01] MEDS: CEFEPIME 1,000 MG/NS 50 ML IVPB IV SCH ×8 (05:09→23:26)
[2021-11-01 06:06] LABS: BASOPHILS % (AUTO) 0 % (0-10); EOSINOPHILS # (AUTO) 0.1 10^3/uL (0.0-0.3); EOSINOPHILS % (AUTO) 2 % (0-10); HEMATOCRIT 31 % (40-54); HEMOGLOBIN 10.8 g/dL (13.3-17.7); LYMPHOCYTES # (AUTO) 0.8 10^3/uL (1.0-4.0); LYMPHOCYTES % (AUTO) 11 % (12-44); MEAN CORPUSCULAR HEMOGLOBIN 29 pg (25-34); MEAN CORPUSCULAR HGB CONC 34 g/dL (32-36); MEAN CORPUSCULAR VOLUME 85 fL (80-99); MEAN PLATELET VOLUME 10.5 fL (9.0-12.2); MONOCYTES # (AUTO) 0.6 10^3/uL (0.0-1.0); MONOCYTES % (AUTO) 8 % (0-12); NEUTROPHILS # (AUTO) 5.6 10^3/uL (1.8-7.8); NEUTROPHILS % (AUTO) 78 % (42-75); PLATELET COUNT 325 10^3/uL (130-400); WHITE BLOOD COUNT 7.2 10^3/uL (4.3-11.0)
[2021-11-01 06:15] LABS: ALBUMIN 2.7 GM/DL (3.2-4.5); POTASSIUM 3.4 MMOL/L (3.6-5.0)
[2021-11-01 06:17] LABS: CALCIUM 8.1 MG/DL (8.5-10.1)
[2021-11-01 06:18] LABS: TOTAL PROTEIN 6.3 GM/DL (6.4-8.2)
[2021-11-01 06:20] LABS: BILIRUBIN,TOTAL 0.8 MG/DL (0.1-1.0)
[2021-11-01 06:21] LABS: CREATININE SERUM 0.67 MG/DL (0.60-1.30); PHOSPHORUS 2.3 MG/DL (2.3-4.7)
[2021-11-01 06:24] LABS: MAGNESIUM 1.3 MG/DL (1.6-2.4)
[2021-11-01 07:21] VITALS: BP 155/74
[2021-11-01] MEDS: ACETAMINOPHEN 500 MG TAB (TYLENOL) PO PRN (08:22)
[2021-11-01] MEDS: meTOproloL SUCCINATE 50 MG (TOPROL XL) TAB PO SCH (08:22)
[2021-11-01] MEDS: AMIODARONE 200 MG (CORDARONE) TAB PO SCH (08:22)
[2021-11-01] MEDS: TICAGRELOR 90 MG TABLET (BRILINTA) PO SCH ×2 (08:22→20:08)
[2021-11-01] MEDS: AtorvaSTATin TABLET 10 MG TABLET PO SCH (08:22)
[2021-11-01] MEDS: ASPIRIN E.C. 81 MG (ECOTRIN) TAB PO SCH (08:22)
[2021-11-01] MEDS ORDERED: KCL 20 MEQ TAB (K-DUR) PO ONE (08:45)
[2021-11-01] MEDS: MAGNESIUM 1 GM/100 ML IVPB 100 ML IV SCH ×2 (09:53→09:54)
[2021-11-01 11:32] VITALS: BP 142/68
[2021-11-01] MEDS: ENOXAPARIN 40 MG/0.4 ML (LOVENOX) SYR SQ SCH (12:00)
--- NOTE | 2021-11-01 12:45 | Progress Note ---
Subjective Subjective/Events-last exam Afebrile, states he is feeling "so far so good" today. Objective Exam Last Set of Vital Signs Vital Signs Date Time Temp Pulse Resp B/P (MAP) Pulse Ox O2 Delivery O2 Flow Rate FiO2 11/01/21 11:32 36.6 88 18 142/68 (92) 96 Room Air 10/31/21 19:45 28 10/31/21 15:29 2.00 Capillary Refill : Less Than 3 Seconds I&O Intake and Output 11/01/21 00:00 Intake Total 2530 ml Output Total 2450 ml Balance 80 ml Intake Oral 1030 ml IV Total 1500 ml Output Urine Total 2450 ml General: Alert, No Acute Distress Lungs: Clear to Auscultation Heart: Other (irregularly irregular) Abdomen: Normal Bowel Sounds, Soft Neuro: Normal Speech, Other (oriented to self, location and day/year, but states date December 01 instead of November 01, is aware he is in the hospital due to "passing out") Psych/Mental Status: Mood NL Results/Procedures Lab Laboratory Tests 10/31/21 16:06: Glucometer 155H 10/31/21 21:16: Glucometer 174H 11/01/21 05:09: Glucometer 148H 11/01/21 05:57: White Blood Count 7.2, Red Blood Count 3.70L, Hemoglobin 10.8L, Hematocrit 31L, Mean Corpuscular Volume 85, Mean Corpuscular Hemoglobin 29, Mean Corpuscular Hemoglobin Concent 34, Red Cell Distribution Width 13.9, Platelet Count 325, Mean Platelet Volume 10.5, Immature Granulocyte % (Auto) 0, Neutrophils (%) (Auto) 78H, Lymphocytes (%) (Auto) 11L, Monocytes (%) (Auto) 8, Eosinophils (%) (Auto) 2, Basophils (%) (Auto) 0, Neutrophils # (Auto) 5.6, Lymphocytes # (Auto) 0.8L, Monocytes # (Auto) 0.6, Eosinophils # (Auto) 0.1, Basophils # (Auto) 0.0, Immature Granulocyte # (Auto) 0.0, Sodium Level 138, Potassium Level 3.4L, Chloride Level 104, Carbon Dioxide Level 20L, Anion Gap 14, Blood Urea Nitrogen 10, Creatinine 0.67, Estimat Glomerular Filtration Rate 102, BUN/Creatinine Ratio 15, Glucose Level 177H, Calcium Level 8.1L, Corrected Calcium 9.1, Phosphorus Level 2.3, Magnesium Level 1.3L, Total Bilirubin 0.8, Aspartate Amino Transf (AST/SGOT) 15, Alanine Aminotransferase (ALT/SGPT) 14, Alkaline Phosphatase 85, Total Protein 6.3L, Albumin 2.7L 11/01/21 10:54: Glucometer 292H Microbiology 10/28/21 MRSA Screen - Final, Complete MRSA not isolated 10/28/21 Gram Stain - Final, Resulted 10/28/21 CSF Culture - Preliminary, Resulted No growth 10/28/21 Blood Culture - Preliminary, Resulted Corynebacterium afermentans No Susceptibility Performed See Comments Radiology CT head 10/28/21: "IMPRESSION: Mild senescent findings in the brain without CT evidence of acute intracranial abnormality. There is moderate pansinusitis." CXR 10/28/21: "IMPRESSION: Mild cardiomegaly and underlying COPD change. There is some new infiltrate in the right lung base, pneumonia is not excluded. Follow-up is recommended. Assessment/Plan Assessment/Plan (1) Sepsis Status: Acute Assessment & Plan: Suspect secondary to pneumonia. LP also done due to seizure and AMS, no evidence of meningitis. STEPHANIA resolved. Qualifiers: (2) Pneumonia Status: Acute Assessment & Plan: Cefepime 10/31- on 1 lpm supplemental oxygen, wean as tolerated 11/01 stable on room air Qualifiers: Qualified Codes: J18.9 - Pneumonia, unspecified organism (3) Seizure Status: Acute Assessment & Plan: New onset in ER, LP done and no evidence of meningitis, suspect may be related to methamphetamine use. Seizure precautions. CT head with pansinusitis otherwise no acute findings. 11/01 no further seizure activity since admission. (4) Altered mental status Status: Resolved Assessment & Plan: Improving, oriented x 3 but with delayed speech on 10/29. Continue treating sepsis and monitor closely. 10/30 falling asleep throughout exam, but speech slightly more clear when awake than yesterday 10/31 alert and oriented x 3 and able to give some information about why he is in the hospital Qualifiers: Qualified Codes: R40.1 - Stupor (5) Diabetes mellitus type 2 with complications Status: Chronic Assessment & Plan: Diabetic diet, sliding scale insulin. A1c improved to 8.4 compared to 13.1 in July. (6) Anemia Status: Chronic Qualifiers: Qualified Codes: D63.8 - Anemia in other chronic diseases classified elsewhere (7) Methamphetamine use Status: Chronic Assessment & Plan: director of residential services consult. (8) CAD (coronary artery disease) Status: Chronic Assessment & Plan: Resume home statin, aspirin and ticagrelor Qualifiers: Qualified Codes: I25.10 - Atherosclerotic heart disease of [place] coronary artery without angina pectoris (9) Mixed hyperlipidemia Status: Chronic Assessment & Plan: Resume home statin (10) Primary hypertension Status: Chronic Assessment & Plan: Hypotensive on admission resolved with IVF, resumed home metoprolol when BP improved and began to have tachycardia. (11) Paroxysmal atrial fibrillation Status: Chronic Assessment & Plan: Last hospital stay Cardiology notes document decreasing amiodarone to 100 mg, but he remained on 200 mg outpatient, will resume 100 mg. Not on chronic anticoagulation for uncertain reason, had not been following closely with Cardiology. (12) Chronic systolic heart failure Status: Chronic Assessment & Plan: 07/2021 echo with EF 35-40%, grade 1 diastolic dysfunction. (13) Liver transplant status Status: Chronic (14) Alcohol use Status: Chronic Assessment & Plan: Alcohol level normal on admit, EtOH withdrawal protocol started, but has not required repeat lorazepam since ER. (15) Debility Status: Chronic Assessment & Plan: PT, OT, looking into SNF at d/c. (16) At risk for deep venous thrombosis Status: Acute Assessment & Plan: Enoxaparin RENETTA AGUSTIN MD Nov 01, 2021 12:45
--- NOTE | 2021-11-01 13:11 | Physical Therapy Evaluation ---
PT Evaluation-General Medical Diagnosis Admission Date Oct 28, 2021 at 16:07 Medical Diagnosis: pneumonia/AMS/meth Onset Date: Oct 28, 2021 Therapy Diagnosis Therapy Diagnosis: generalized weakness/debility Height/Weight Height (Feet): 6 Height (Inches): 0.00 Weight (Pounds): 240 Weight (Ounces): 0.0 Precautions Precautions/Isolations: Seizure, Fall Prevention, Standard Precautions Referral Physician: Beau Reason for Referral: Evaluation/Treatment Medical History Pertinent Medical History: Alcoholism, CAD, DM, HTN, Neuropathy, Smoking Additional Medical History multiple amputations bilateral toes, metatarsals Current History EMS secondary to being found unresponsive Reviewed History: Yes Social History Home: Single Level Current Living Status: Alone Entry Into Home: Level Entry Prior Prior Level of Function SCALE: Activities may be completed with or without assistive devices. 7-Hhcmxjrzpa-hhirnca completes the activity by him/herself with no assistance from a helper. 5-Set-up or Clean-up Assistance-helper sets up or cleans up; patient completes activity. [place] assists only prior to or following the activity. 4-Supervision or Touching Assistance-helper provides verbal cues and/or touching/steadying and/or contact guard assistance as patient completes activity. Assistance may be provided throughout the activity or intermittently. 3-Partial/Moderate Assistance-helper does LESS THAN HALF the effort. [place] lifts, holds or supports trunk or limbs, but provides less than half the effort. 2-Substantial/Maximal Assistance-helper does MORE THAN HALF the effort. [place] lifts or holds trunk or limbs and provides more than half the effort. 8-Pxjjmbfow-qwbqum does ALL the effort. Patient does none of the effort to complete the activity. Or, the assistance of 2 or more helpers is required for the patient to complete the activity. If activity was not attempted, code reason: 7-Patient Refused. 9-Not Applicable-not attempted and the patient did not perform the activity before the current illness, exacerbation or injury. 10-Not Attempted due to Environmental Limitations-(lack of equipment, weather restraints, etc.). 88-Not Attempted due to Medical Conditions or Safety Concerns. Bed Mobility: 6 Transfers (B,C,W/C): 6 Gait: 6 Stairs: 9 Indoor Mobility (Ambulation): Independent Prior Devices Use: Walker PT Evaluation-Current Subjective Patient agrees to PT. Objective Patient Orientation: Normal For Age Attachments: Jackson Catheter ROM/Strength ROM Lower Extremities bilateral LE WFL Strength Lower Extremities 3/5 grossly bilateral LE Integumentary/Posture Bowel Incontinence: No Bladder Incontinence: Jackson Cath Posture trunk flexed posture/WBOS Neuromuscular (Tone, Coordination, Reflexes) grossly intact Sensory Vision: Functional Hearing: Functional Sensation Right Lower Extremit: Impaired Sensation Left Lower Extremity: Impaired Transfers Sit to Lying (QC): 4 Lying to Sitting/Side of Bed(Q: 4 Sit to Stand (QC): 3 Toilet Transfer (QC): 3 Gait Does the Patient Walk?: Yes Mode of Locomotion: Walk Anticipated Mode of Locomotion: Walk Walk 10 feet (QC): 4 Walk 50 ft with 2 Turns(QC): 7 Walk 150 ft (QC): 7 Distance: 20' x 2 Gait Assistive Device: FWW Comments/Gait Description WBOS/slow gait sequence Balance Sitting Static: Normal Sitting Dynamic: Normal Standing Static: Fair Standing Dynamic: Fair Assessment/Needs 70 y.o. male, will be seen short term by skilled PT to address functional strength and mobility to improve current LOF. Patient does self limit and ceases session to eat lunch. Increase activity as tolerated by patient. Rehab Potential: Fair PT Jail Goals Director Data Management Goals PT Jail Goals Time Frame: Nov 16, 2021 Roll Left & Right (QC): 6 Sit to Lying (QC): 6 Lying-Sitting on Side/Bed(QC): 6 Sit to Stand (QC): 6 Chair/Xfr-uv-Bpsac Xfer(QC): 6 Toilet Transfer (QC): 6 Walk 10 feet (QC): 4 Walk 50ft with 2 Turns (QC): 4 PT Plan Problem List Problem List: Activity Tolerance, Functional Strength, Safety, Balance, Gait, Transfer, Bed Mobility Treatment/Plan Treatment Plan: Continue Plan of Care Treatment Plan: Bed Mobility, Education, Functional Activity Samuel, Functional Strength, Gait, Safety, Therapeutic Exercise, Transfers Treatment Duration: Nov 16, 2021 Frequency: 6 times per week Estimated Hrs Per Day: .25 hour per day Patient and/or Family Agrees t: Yes Time/GCodes Time In: 1240 Time Out: 1256 Total Billed Treatment Time: 16 Total Billed Treatment 1 visit EVMod 16 min EPIFANIO YA PT Nov 01, 2021 13:11
--- NOTE | 2021-11-01 13:37 | Occupational Therapy Eval ---
OT Evaluation-General/PLF Medical Diagnosis Admission Date Oct 28, 2021 at 16:07 Medical Diagnosis: pneumonia/AMS/meth Onset Date: Oct 28, 2021 Therapy Diagnosis Therapy Diagnosis: decreased ADL status Height/Weight Height (Feet): 6 Height (Inches): 0.00 Weight (Pounds): 240 Weight (Ounces): 0.0 Precautions Precautions/Isolations: Seizure, Fall Prevention, Standard Precautions Referral Physician: Beau Referral Reason: Evaluation/Treatment Medical History Pertinent Medical History: Alcoholism, CAD, DM, HTN, Neuropathy, Smoking Additional Medical History Hep C, liver transplant, CAD s/p stents, THC, cocaine, meth use, amputation all R toes, 2nd digit amputation L Current History EMS from home due to being found unresponsive Social History Home: Single Level Current Living Status: Alone Entry Into Home: Level Entry ADL-Prior Level of Function SCALE: Activities may be completed with or without assistive devices. 4-Npgfkphels-rpdjmaa completes the activity by him/herself with no assistance from a helper. 5-Set-up or Clean-up Assistance-helper sets up or cleans up; patient completes activity. [place] assists only prior to or following the activity. 4-Supervision or Touching Assistance-helper provides verbal cues and/or touching/steadying and/or contact guard assistance as patient completes activity. Assistance may be provided throughout the activity or intermittently. 3-Partial/Moderate Assistance-helper does LESS THAN HALF the effort. [place] lifts, holds or supports trunk or limbs, but provides less than half the effort. 2-Substantial/Maximal Assistance-helper does MORE THAN HALF the effort. [place] lifts or holds trunk or limbs and provides more than half the effort. 5-Fltxmhicf-dwuigm does ALL the effort. Patient does none of the effort to complete the activity. Or, the assistance of 2 or more helpers is required for the patient to complete the activity. If activity was not attempted, code reason: 7-Patient Refused. 9-Not Applicable-not attempted and the patient did not perform the activity before the current illness, exacerbation or injury. 10-Not Attempted due to Environmental Limitations-(lack of equipment, weather restraints, etc.). 88-Not Attempted due to Medical Conditions or Safety Concerns. ADL PLOF Comments Pt reports independent with ADLs and functional mobility at PLOF, using walker. Self Care: Independent Functional Cognition: Independent OT Current Status Subjective Pt in bed, family members present. Pt agreeable to OT Tx. Mental Status/Objective Patient Orientation: Person, Place, Situation Attachments: Jackson Catheter Current Upper Extremity ROM WFL during ADLs. Upper Extremity Strength grossly 3/5 ADL-Treatment Eating (QC): 6 (IND with lunch) Oral Hygiene (QC): 7 Other Treatments Pt laying in bed, agreeable to OT evaluation. Pt sitting with family members eating lunch. OT educated pt on purpose and benefit of OT, he verbalized understanding. Pt provided information about PLOF and home set up. Pt able to set up his meal and use utensils independently throughout conversation. Pt declines any OOB activities at this time, and declined all other ADLs, requesting to eat lunch. Pt also declined UE exercises at this time. Per PT report, pt requires QC 4 for the following: sit to/from supine, functional mobility with FWW 20'x2 & QC 3 for sit to/from stand and toilet transfer. Post tx, pt in bed, call light in reach and all needs met. Education OT Patient Education: Correct positioning, Energy conservation, Modified ADL techniques, Progress toward Goal/Update tx plan, Purpose of tx/functional activities, Rehab process Teaching Recipient: Patient Teaching Methods: Discussion Response to Teaching: Verbalize Understanding, Reinforcement Needed OT Oracle Adf Developer Goals Oracle Adf Developer Goals Time Frame: Nov 15, 2021 Eating (QC): 6 Toileting Hygiene (QC): 4 Shower/Bathe Self (QC): 3 Upper Body Dressing (QC): 4 Lower Body Dressing (QC): 3 On/Off Footwear (QC): 3 Additional Goals: 1-Demonstrate ADL Tasks, 2-Verbalize Understanding, 3- ImproveStrength/Samuel 1=Demonstrate adherence to instructed precautions during ADL tasks. 2=Patient will verbalize/demonstrate understanding of assistive devices/modifications for ADL. 3=Patient will improve strength/tolerance for activity to enable patient to perform ADL's. OT Education/Plan Problem List/Assessment Assessment: Decreased Activ Tolerance, Decreased UE Strength, Impaired Funct Balance, Impaired I ADL's, Impaired Self-Care Skills Discharge Recommendations Plan/Recommendations: Continue POC Treatment Plan/Plan of Care Patient would benefit from OT for education, treatment and training to promote independence in ADL's, mobility, safety and/or upper extremity function for ADL's. Plan of Care: ADL Retraining, Functional Mobility, UE Funct Exercise/Act Treatment Duration: Nov 15, 2021 Frequency: 3 times per week (3-5 times per week) Estimated Hrs Per Day: .25 hour per day Agreement: Yes Rehab Potential: Fair Time/GCodes Start Time: 13:01 Stop Time: 13:11 Total Time Billed (hr/min): 10 Billed Treatment Time 1, ALLISON GONZALEZ OT Nov 01, 2021 13:37
[2021-11-01 15:56] VITALS: BP 148/84
[2021-11-01 19:23] VITALS: BP 121/69
[2021-11-01 23:25] VITALS: BP 123/70
[2021-11-02 04:47] VITALS: BP 117/64
[2021-11-02] MEDS: inSUlin ASPART (NovoLOG) 1 UNIT/0.01 ML (CHARGE PER UNIT) SC SCH ×4 (04:50→20:48)
[2021-11-02] MEDS: MULTIVIT W/MINERALS TAB (THERAGRAN M) PO SCH (04:50)
[2021-11-02] MEDS: CEFEPIME 1,000 MG/NS 50 ML IVPB IV SCH ×2 (04:50)
[2021-11-02 06:00] LABS: BASOPHILS % (AUTO) 1 % (0-10); EOSINOPHILS # (AUTO) 0.2 10^3/uL (0.0-0.3); EOSINOPHILS % (AUTO) 3 % (0-10); HEMATOCRIT 32 % (40-54); HEMOGLOBIN 10.7 g/dL (13.3-17.7); LYMPHOCYTES # (AUTO) 1.1 10^3/uL (1.0-4.0); LYMPHOCYTES % (AUTO) 17 % (12-44); MEAN CORPUSCULAR HEMOGLOBIN 29 pg (25-34); MEAN CORPUSCULAR HGB CONC 34 g/dL (32-36); MEAN CORPUSCULAR VOLUME 87 fL (80-99); MEAN PLATELET VOLUME 10.7 fL (9.0-12.2); MONOCYTES # (AUTO) 0.8 10^3/uL (0.0-1.0); MONOCYTES % (AUTO) 12 % (0-12); NEUTROPHILS # (AUTO) 4.4 10^3/uL (1.8-7.8); NEUTROPHILS % (AUTO) 67 % (42-75); PLATELET COUNT 325 10^3/uL (130-400); WHITE BLOOD COUNT 6.5 10^3/uL (4.3-11.0)
[2021-11-02 06:10] LABS: ALBUMIN 2.7 GM/DL (3.2-4.5); POTASSIUM 3.4 MMOL/L (3.6-5.0)
[2021-11-02 06:11] LABS: CALCIUM 8.3 MG/DL (8.5-10.1)
[2021-11-02 06:13] LABS: TOTAL PROTEIN 6.3 GM/DL (6.4-8.2)
[2021-11-02 06:14] LABS: BILIRUBIN,TOTAL 0.7 MG/DL (0.1-1.0)
[2021-11-02 06:16] LABS: CREATININE SERUM 0.72 MG/DL (0.60-1.30)
[2021-11-02 06:19] LABS: MAGNESIUM 1.6 MG/DL (1.6-2.4)
--- NOTE | 2021-11-02 07:39 | Progress Note - Hospitalist ---
Subjective HPI/CC On Admission Date Seen by Provider: Nov 02, 2021 Time Seen by Provider: 10:30 Subjective/Events-last exam Patient doing well No concerns Labs reviewed Antibiotic tolerated Right lower lung base crackles Going [facility] on Thursday Review of Systems General: Fatigue, Malaise Pulmonary: Dyspnea Objective Exam Vital Signs Vital Signs Date Time Temp Pulse Resp B/P (MAP) Pulse Ox O2 Delivery O2 Flow Rate FiO2 11/03/21 03:54 37.9 93 20 133/76 (95) 97 Room Air 11/02/21 18:30 1.00 10/31/21 19:45 28 Capillary Refill : Less Than 3 Seconds General Appearance: No Apparent Distress, WD/WN, Chronically ill Respiratory: Lungs Clear, Normal Breath Sounds, Crackles (Right lower lobe) Cardiovascular: Regular Rate, Rhythm Neurologic/Psychiatric: Alert, Oriented x3 Results/Procedures Lab Laboratory Tests 11/03/21 05:23 Patient resulted labs reviewed. Assessment/Plan Assessment and Plan Assess & Plan/Chief Complaint (1) Sepsis Status: Acute Assessment & Plan: Suspect secondary to pneumonia. LP also done due to seizure and AMS, no evidence of meningitis. STEPHANIA resolved. Qualifiers: (2) Pneumonia right lower lobe Status: Acute Assessment & Plan: Cefepime 10/31- on 1 lpm supplemental oxygen, wean as tolerated 11/01 stable on room air Qualifiers: Qualified Codes: J18.9 - Pneumonia, unspecified organism (3) Seizure Status: Acute Assessment & Plan: New onset in ER, LP done and no evidence of meningitis, suspect may be related to methamphetamine use. Seizure precautions. CT head with pansinusitis otherwise no acute findings. 11/01 no further seizure activity since admission. (4) Altered mental status Status: Resolved Assessment & Plan: Improving, oriented x 3 but with delayed speech on 10/29. Continue treating sepsis and monitor closely. 10/30 falling asleep throughout exam, but speech slightly more clear when awake than yesterday 10/31 alert and oriented x 3 and able to give some information about why he is in the hospital Qualifiers: Qualified Codes: R40.1 - Stupor (5) Diabetes mellitus type 2 with complications Status: Chronic Assessment & Plan: Diabetic diet, sliding scale insulin. A1c improved to 8.4 compared to 13.1 in July. (6) Anemia Status: Chronic Qualifiers: Qualified Codes: D63.8 - Anemia in other chronic diseases classified elsewhere (7) Methamphetamine use Status: Chronic Assessment & Plan: custodial services manager consult. (8) CAD (coronary artery disease) Status: Chronic Assessment & Plan: Resume home statin, aspirin and ticagrelor Qualifiers: Qualified Codes: I25.10 - Atherosclerotic heart disease of [place] coronary artery without angina pectoris (9) Mixed hyperlipidemia Status: Chronic Assessment & Plan: Resume home statin (10) Primary hypertension Status: Chronic Assessment & Plan: Hypotensive on admission resolved with IVF, resumed home metoprolol when BP improved and began to have tachycardia. (11) Paroxysmal atrial fibrillation Status: Chronic Assessment & Plan: Last hospital stay Cardiology notes document decreasing amiodarone to 100 mg, but he remained on 200 mg outpatient, will resume 100 mg. Not on chronic anticoagulation for uncertain reason, had not been following closely with Cardiology. (12) Chronic systolic heart failure Status: Chronic Assessment & Plan: 07/2021 echo with EF 35-40%, grade 1 diastolic dysfunction. (13) Liver transplant status Status: Chronic (14) Alcohol use Status: Chronic Assessment & Plan: Alcohol level normal on admit, EtOH withdrawal protocol started, but has not required repeat lorazepam since ER. (15) Debility Status: Chronic Assessment & Plan: PT, OT, looking into SNF at d/c. (16) At risk for deep venous thrombosis Status: Acute Assessment & Plan: Enoxaparin KEITH CABALLERO DO Nov 02, 2021 07:38
[2021-11-02 08:00] VITALS: BP 118/55
[2021-11-02] MEDS: AMIODARONE 200 MG (CORDARONE) TAB PO SCH (08:23)
[2021-11-02] MEDS: TICAGRELOR 90 MG TABLET (BRILINTA) PO SCH ×2 (08:23→20:48)
[2021-11-02] MEDS: meTOproloL SUCCINATE 50 MG (TOPROL XL) TAB PO SCH (08:24)
[2021-11-02] MEDS: AtorvaSTATin TABLET 10 MG TABLET PO SCH (08:24)
[2021-11-02] MEDS: ASPIRIN E.C. 81 MG (ECOTRIN) TAB PO SCH (08:24)
[2021-11-02] MEDS: ENOXAPARIN 40 MG/0.4 ML (LOVENOX) SYR SQ SCH (11:52)
[2021-11-02] MEDS: ACETAMINOPHEN 500 MG TAB (TYLENOL) PO PRN ×2 (11:53→18:24)
--- NOTE | 2021-11-02 12:20 | Physical Therapy Daily Note ---
PT Daily Note-Current Subjective Pt agreeable. Comprehended all instructions. Transfers SCALE: Activities may be completed with or without assistive devices. 1-Lbjtemvvkr-wenhsjv completes the activity by him/herself with no assistance from a helper. 5-Set-up or Clean-up Assistance-helper sets up or cleans up; patient completes activity. [place] assists only prior to or following the activity. 4-Supervision or Touching Assistance-helper provides verbal cues and/or touching/steadying and/or contact guard assistance as patient completes activity. Assistance may be provided throughout the activity or intermittently. 3-Partial/Moderate Assistance-helper does LESS THAN HALF the effort. [place] lifts, holds or supports trunk or limbs, but provides less than half the effort. 2-Substantial/Maximal Assistance-helper does MORE THAN HALF the effort. [place] lifts or holds trunk or limbs and provides more than half the effort. 9-Octqwczzw-wmgrfm does ALL the effort. Patient does none of the effort to complete the activity. Or, the assistance of 2 or more helpers is required for the patient to complete the activity. If activity was not attempted, code reason: 7-Patient Refused. 9-Not Applicable-not attempted and the patient did not perform the activity before the current illness, exacerbation or injury. 10-Not Attempted due to Environmental Limitations-(lack of equipment, weather restraints, etc.). 88-Not Attempted due to Medical Conditions or Safety Concerns. Sit to Lying (QC): 4 Lying to Sitting/Side of Bed(Q: 4 Sit to Stand (QC): 4 Chair/Kbo-ra-Kydpu Xfer(QC): 4 Gait Training Gait Assistive Device: FWW Ambulate 50ft with FWW and Min A for stability. Pt gait limited by generalized fatigue. Worked standing balance at bedside while patient rearranged his bed and pillows prior to getting back into bed. PT Hoe Worker Goals Hoe Worker Goals PT Snf Goals Time Frame: Nov 16, 2021 Roll Left & Right (QC): 6 Sit to Lying (QC): 6 Lying-Sitting on Side/Bed(QC): 6 Sit to Stand (QC): 6 Chair/Mpp-dj-Rpytj Xfer(QC): 6 Toilet Transfer (QC): 6 Walk 10 feet (QC): 4 Walk 50ft with 2 Turns (QC): 4 PT Plan Treatment/Plan Treatment Plan: Continue Plan of Care Treatment Plan: Bed Mobility, Education, Functional Activity Samuel, Functional Strength, Gait, Safety, Therapeutic Exercise, Transfers Treatment Duration: Nov 16, 2021 Frequency: 6 times per week Estimated Hrs Per Day: .25 hour per day Patient and/or Family Agrees t: Yes Time/GCodes Time In: 1100 Time Out: 1125 Total Billed Treatment Time: 20 Total Billed Treatment visit, gait 15, FA 5 min ALEX BRUNO PT Nov 02, 2021 12:20
[2021-11-02 12:27] VITALS: BP 111/68
[2021-11-02] MEDS: KCL 20 MEQ TAB (K-DUR) PO SCH ×2 (12:27→17:08)
[2021-11-02 16:20] VITALS: BP 144/81
[2021-11-02 20:00] VITALS: BP 130/79
[2021-11-02 23:51] VITALS: BP 132/84
[2021-11-03 03:54] VITALS: BP 133/76
[2021-11-03] MEDS: inSUlin ASPART (NovoLOG) 1 UNIT/0.01 ML (CHARGE PER UNIT) SC SCH ×4 (06:07→20:42)
[2021-11-03 06:08] LABS: BASOPHILS % (AUTO) 1 % (0-10); EOSINOPHILS # (AUTO) 0.3 10^3/uL (0.0-0.3); EOSINOPHILS % (AUTO) 5 % (0-10); HEMATOCRIT 33 % (40-54); HEMOGLOBIN 11.1 g/dL (13.3-17.7); LYMPHOCYTES # (AUTO) 1.2 10^3/uL (1.0-4.0); LYMPHOCYTES % (AUTO) 18 % (12-44); MEAN CORPUSCULAR HEMOGLOBIN 29 pg (25-34); MEAN CORPUSCULAR HGB CONC 34 g/dL (32-36); MEAN CORPUSCULAR VOLUME 86 fL (80-99); MEAN PLATELET VOLUME 10.5 fL (9.0-12.2); MONOCYTES # (AUTO) 0.7 10^3/uL (0.0-1.0); MONOCYTES % (AUTO) 10 % (0-12); NEUTROPHILS # (AUTO) 4.4 10^3/uL (1.8-7.8); NEUTROPHILS % (AUTO) 66 % (42-75); PLATELET COUNT 362 10^3/uL (130-400); WHITE BLOOD COUNT 6.7 10^3/uL (4.3-11.0)
[2021-11-03] MEDS: MULTIVIT W/MINERALS TAB (THERAGRAN M) PO SCH (06:36)
[2021-11-03 06:50] LABS: POTASSIUM 3.7 MMOL/L (3.6-5.0)
[2021-11-03 06:51] LABS: CALCIUM 8.8 MG/DL (8.5-10.1)
--- NOTE | 2021-11-03 06:52 | Progress Note - Hospitalist ---
Subjective HPI/CC On Admission Date Seen by Provider: Nov 03, 2021 Time Seen by Provider: 12:45 Subjective/Events-last exam Patient doing well Ready for discharge tomorrow Checked meds labs No complaints Review of Systems General: Fatigue Objective Exam Vital Signs Vital Signs Date Time Temp Pulse Resp B/P (MAP) Pulse Ox O2 Delivery O2 Flow Rate FiO2 11/04/21 01:00 74 11/04/21 00:00 36.0 20 151/93 (112) 95 Room Air 11/02/21 18:30 1.00 10/31/21 19:45 28 Capillary Refill : Less Than 3 Seconds General Appearance: No Apparent Distress, WD/WN, Chronically ill Respiratory: Lungs Clear, Normal Breath Sounds Cardiovascular: Regular Rate, Rhythm Neurologic/Psychiatric: Alert, Oriented x3 Results/Procedures Lab Laboratory Tests 11/03/21 05:23 Patient resulted labs reviewed. Assessment/Plan Assessment and Plan Assess & Plan/Chief Complaint (1) Sepsis Status: Acute Assessment & Plan: Suspect secondary to pneumonia. LP also done due to seizure and AMS, no evidence of meningitis. STEPHANIA resolved. Qualifiers: (2) Pneumonia right lower lobe Status: Acute Assessment & Plan: Cefepime 10/31- on 1 lpm supplemental oxygen, wean as tolerated 11/01 stable on room air Qualifiers: Qualified Codes: J18.9 - Pneumonia, unspecified organism (3) Seizure Status: Acute Assessment & Plan: New onset in ER, LP done and no evidence of meningitis, suspect may be related to methamphetamine use. Seizure precautions. CT head with pansinusitis otherwise no acute findings. 11/01 no further seizure activity since admission. (4) Altered mental status Status: Resolved Assessment & Plan: Improving, oriented x 3 but with delayed speech on 10/29. Continue treating sepsis and monitor closely. 10/30 falling asleep throughout exam, but speech slightly more clear when awake than yesterday 10/31 alert and oriented x 3 and able to give some information about why he is in the hospital Qualifiers: Qualified Codes: R40.1 - Stupor (5) Diabetes mellitus type 2 with complications Status: Chronic Assessment & Plan: Diabetic diet, sliding scale insulin. A1c improved to 8.4 compared to 13.1 in July. (6) Anemia Status: Chronic Qualifiers: Qualified Codes: D63.8 - Anemia in other chronic diseases classified elsewhere (7) Methamphetamine use Status: Chronic Assessment & Plan: program services planner consult. (8) CAD (coronary artery disease) Status: Chronic Assessment & Plan: Resume home statin, aspirin and ticagrelor Qualifiers: Qualified Codes: I25.10 - Atherosclerotic heart disease of [place] coronary artery without angina pectoris (9) Mixed hyperlipidemia Status: Chronic Assessment & Plan: Resume home statin (10) Primary hypertension Status: Chronic Assessment & Plan: Hypotensive on admission resolved with IVF, resumed home metoprolol when BP improved and began to have tachycardia. (11) Paroxysmal atrial fibrillation Status: Chronic Assessment & Plan: Last hospital stay Cardiology notes document decreasing amiodarone to 100 mg, but he remained on 200 mg outpatient, will resume 100 mg. Not on chronic anticoagulation for uncertain reason, had not been following closely with Cardiology. (12) Chronic systolic heart failure Status: Chronic Assessment & Plan: 07/2021 echo with EF 35-40%, grade 1 diastolic dysfunction. (13) Liver transplant status Status: Chronic (14) Alcohol use Status: Chronic Assessment & Plan: Alcohol level normal on admit, EtOH withdrawal protocol started, but has not required repeat lorazepam since ER. (15) Debility Status: Chronic Assessment & Plan: PT, OT, looking into SNF at d/c. (16) At risk for deep venous thrombosis Status: Acute Assessment & Plan: Enoxaparin 11/03/2021: Supportive care Discharge to halfway tomorrow KEITH CABALLERO DO Nov 03, 2021 06:52
[2021-11-03 06:54] LABS: BILIRUBIN,TOTAL 0.7 MG/DL (0.1-1.0)
[2021-11-03 06:56] LABS: CREATININE SERUM 0.71 MG/DL (0.60-1.30); PHOSPHORUS 1.6 MG/DL (2.3-4.7)
[2021-11-03 06:59] LABS: MAGNESIUM 1.6 MG/DL (1.6-2.4)
[2021-11-03 07:45] VITALS: BP 126/74
[2021-11-03] MEDS: meTOproloL SUCCINATE 50 MG (TOPROL XL) TAB PO SCH (08:09)
[2021-11-03] MEDS: ACETAMINOPHEN 500 MG TAB (TYLENOL) PO PRN ×2 (08:09→20:45)
[2021-11-03] MEDS: ASPIRIN E.C. 81 MG (ECOTRIN) TAB PO SCH (08:09)
[2021-11-03] MEDS: KCL 20 MEQ TAB (K-DUR) PO SCH ×2 (08:09→17:04)
[2021-11-03] MEDS: AtorvaSTATin TABLET 10 MG TABLET PO SCH (08:09)
[2021-11-03] MEDS: AMIODARONE 200 MG (CORDARONE) TAB PO SCH (08:09)
[2021-11-03] MEDS: ENOXAPARIN 40 MG/0.4 ML (LOVENOX) SYR SQ SCH (11:44)
[2021-11-03 11:45] VITALS: BP 114/75
[2021-11-03] MEDS: TICAGRELOR 90 MG TABLET (BRILINTA) PO SCH ×2 (12:11→20:41)
[2021-11-03 15:54] VITALS: BP 122/74
[2021-11-03 15:59] VITALS: BP 114/75
[2021-11-03 19:25] VITALS: BP 137/90
[2021-11-04] VITALS: BP 151/93
[2021-11-04 04:00] VITALS: BP 125/70
[2021-11-04] MEDS: inSUlin ASPART (NovoLOG) 1 UNIT/0.01 ML (CHARGE PER UNIT) SC SCH (05:12)
[2021-11-04] MEDS: MULTIVIT W/MINERALS TAB (THERAGRAN M) PO SCH (05:15)
[2021-11-04 05:44] LABS: BASOPHILS # (AUTO) 0.1 10^3/uL (0.0-0.1); BASOPHILS % (AUTO) 1 % (0-10); EOSINOPHILS # (AUTO) 0.5 10^3/uL (0.0-0.3); EOSINOPHILS % (AUTO) 7 % (0-10); HEMATOCRIT 33 % (40-54); LYMPHOCYTES # (AUTO) 1.4 10^3/uL (1.0-4.0); LYMPHOCYTES % (AUTO) 19 % (12-44); MEAN CORPUSCULAR HEMOGLOBIN 29 pg (25-34); MEAN CORPUSCULAR HGB CONC 33 g/dL (32-36); MEAN CORPUSCULAR VOLUME 87 fL (80-99); MEAN PLATELET VOLUME 10.3 fL (9.0-12.2); MONOCYTES # (AUTO) 0.8 10^3/uL (0.0-1.0); MONOCYTES % (AUTO) 10 % (0-12); NEUTROPHILS # (AUTO) 4.9 10^3/uL (1.8-7.8); NEUTROPHILS % (AUTO) 63 % (42-75); PLATELET COUNT 450 10^3/uL (130-400); WHITE BLOOD COUNT 7.7 10^3/uL (4.3-11.0)
[2021-11-04 05:56] LABS: ALBUMIN 3.2 GM/DL (3.2-4.5); POTASSIUM 4.3 MMOL/L (3.6-5.0)
[2021-11-04 05:57] LABS: CALCIUM 9.3 MG/DL (8.5-10.1)
[2021-11-04 05:58] LABS: TOTAL PROTEIN 7.6 GM/DL (6.4-8.2)
[2021-11-04 06:00] LABS: BILIRUBIN,TOTAL 0.5 MG/DL (0.1-1.0)
[2021-11-04 06:02] LABS: CREATININE SERUM 0.77 MG/DL (0.60-1.30); PHOSPHORUS 2.2 MG/DL (2.3-4.7)
[2021-11-04 06:05] LABS: MAGNESIUM 1.6 MG/DL (1.6-2.4)
[2021-11-04] MEDS ORDERED: INSU100I14 SQ (06:21)
[2021-11-04] MEDS ORDERED: METO50TA7 PO (06:21)
[2021-11-04] MEDS ORDERED: TICA90TA PO (06:21)
[2021-11-04] MEDS ORDERED: ASPI-1238 PO (06:21)
[2021-11-04] MEDS ORDERED: INSU100I29 SQ (06:21)
[2021-11-04] MEDS ORDERED: OMEG100032 PO (06:21)
[2021-11-04] MEDS ORDERED: ENOX40DI8 SQ (06:21)
[2021-11-04] MEDS ORDERED: ACET-93 PO (06:21)
[2021-11-04] MEDS ORDERED: POTA-169 PO (06:21)
[2021-11-04] MEDS ORDERED: ATOR10TA66 PO (06:21)
[2021-11-04] MEDS ORDERED: AMIO200T65 PO (06:21)
[2021-11-04] MEDS ORDERED: MULT-1137 PO (06:21)
[2021-11-04] MEDS ORDERED: IPRA3AMP31 INH (06:21)
--- NOTE | 2021-11-04 06:22 | Discharge Inst-Skilled Nursing ---
Discharge Inst-Skilled NF Reconcile Patient Problems Problems Reviewed?: Yes Patient Instructions Patient Problems: RLL PNA completed abx inpatient Goal: [place] Consult/Follow Up/Orders Follow Up Appt.: PCP 1 week [place] rounds Skilled NF [place] [facility] [place]) I certify that SNF services are required to be given on an inpatient basis because of the above named patient's need for nursing home care on a continuing basis for the conditions(s) for which he/she was receiving inpatient hospital services prior to his/her transfer to the [facility]. [facility] Facility Order: Nursing Services, Deal Architect-Evaluate & Treat, Physical Therapy-Evaluate & Treat, Wound Care-Eval/Treat Oxygen Delivery Method: Room Air Discharge Diet: ADA Diet Resuscitation Status: Full Code New & Resume Previous Orders New Medications: Acetaminophen (Acetaminophen) 500 Mg Tablet 500 MG PO Q6H PRN for PAIN-MILD (1-4), #30 TAB Amiodarone HCl (Amiodarone HCl) 200 Mg Tablet 100 MG PO DAILY, #30 TAB Enoxaparin Sodium (Enoxaparin Sodium) 40 Mg/0.4 Ml Syringe 40 MG SQ Q24H, #14 SYRINGE Ipratropium/Albuterol Sulfate (Iprat-Albut 0.5-3(2.5) mg/3 ml) 3 Ml Ampul.neb 3 ML INH RTQ4HR PRN for wheezing, #30 INHALER Potassium Chloride (Klor-Con M20) 20 Meq Tab.er.prt 20 MEQ PO DAILY, #30 EA Changed Medications: Insulin Detemir (Levemir Flextouch) 100 Unit/1 Ml Insuln.pen 10 UNIT SQ HS, #1 EA (Changed from: 20 UNIT) Continued Medications: Aspirin (Aspirin EC) 81 Mg Tablet.dr 81 MG PO DAILY, #30 TAB (This prescription has been renewed) Atorvastatin Calcium (Atorvastatin Calcium) 10 Mg Tablet 10 MG PO DAILY, #30 TAB (This prescription has been renewed) Insulin Aspart (Novolog Flexpen) 300 Units/3 Ml Solution 12 UNITS SQ AC, #1 EA (This prescription has been renewed) Metoprolol Succinate (Metoprolol Succinate) 50 Mg Tab.er.24h 50 MG PO DAILY, #30 TAB (This prescription has been renewed) Multivitamin/Iron/Folic Acid (Tab-A-Kaylie Multivit with Iron) 1 Each Tablet 1 EA PO DAILY@0700, #30 TAB (This prescription has been renewed) [place]-3/Dha/Epa/Fish Oil (Fish Oil 1,000 mg Softgel) 1,000 Mg Capsule 1000 MG PO BID, #30 CAP (This prescription has been renewed) Ticagrelor (Brilinta) 90 Mg Tablet 90 MG PO BID, #60 TAB (This prescription has been renewed) Discontinued Medications: Metformin HCl (Metformin HCl) 1,000 Mg Tablet 1000 MG PO BID, TAB Bessie Echols Nov 04, 2021 06:21 BESSIE ECHOLS DO Nov 04, 2021 06:22
--- NOTE | 2021-11-04 06:22 | Discharge Summary ---
Discharge Summary Hospital Course Was the Problem List Reviewed?: Yes Problems/Dx: (1) Altered mental status Status: Resolved Qualifiers: Qualified Codes: R40.1 - Stupor (2) Pneumonia Status: Acute Qualifiers: Qualified Codes: J18.9 - Pneumonia, unspecified organism (3) Chronic systolic heart failure Status: Chronic (4) Cardiomyopathy (5) Paroxysmal atrial fibrillation Status: Chronic (6) Alcohol use Status: Chronic Hospital Course Date of Admission: Oct 28, 2021 at 16:07 Admission Diagnosis : Family Physician/Provider: Ankit Shah MD Date of Discharge: 11/04/21 Discharge Diagnosis: PNA, Sepsis, AMS, meth use, cardiomyopathy, PAF Hospital Course: Pt had an uneventful 8 day hospital course where he was admitted for pneumonia and altered mental status, and recent meth use. He did complete antibiotic treatment for his pneumonia with Cefepime. He was overall doing very well but needed skilled care for the residential to further strengthen and be able to return back to independence. Labs and Pending Lab Test: Laboratory Tests 11/03/21 10:59: Glucometer 245H 11/03/21 15:52: Glucometer 168H 11/03/21 20:26: Glucometer 203H 11/04/21 05:11: Glucometer 167H 11/04/21 05:36: White Blood Count 7.7, Red Blood Count 3.81L, Hemoglobin 11.0L, Hematocrit 33L, Mean Corpuscular Volume 87, Mean Corpuscular Hemoglobin 29, Mean Corpuscular Hemoglobin Concent 33, Red Cell Distribution Width 13.8, Platelet Count 450H, Mean Platelet Volume 10.3, Immature Granulocyte % (Auto) 1, Neutrophils (%) (Auto) 63, Lymphocytes (%) (Auto) 19, Monocytes (%) (Auto) 10, Eosinophils (%) (Auto) 7, Basophils (%) (Auto) 1, Neutrophils # (Auto) 4.9, Lymphocytes # (Auto) 1.4, Monocytes # (Auto) 0.8, Eosinophils # (Auto) 0.5H, Basophils # (Auto) 0.1, Immature Granulocyte # (Auto) 0.1, Sodium Level 138, Potassium Level 4.3, Chloride Level 104, Carbon Dioxide Level 20L, Anion Gap 14, Blood Urea Nitrogen 13, Creatinine 0.77, Estimat Glomerular Filtration Rate 98, BUN/Creatinine Ratio 17, Glucose Level 173H, Calcium Level 9.3, Corrected Calcium 9.9, Phosphorus Level 2.2L, Magnesium Level 1.6, Total Bilirubin 0.5, Aspartate Amino Transf (AST/SGOT) 16, Alanine Aminotransferase (ALT/SGPT) 15, Alkaline Phosphatase 94, Total Protein 7.6, Albumin 3.2 Microbiology 10/28/21 MRSA Screen - Final, Complete MRSA not isolated 10/28/21 Gram Stain - Final, Complete 10/28/21 CSF Culture - Final, Complete No growth 10/28/21 Blood Culture - Final, Complete Corynebacterium afermentans No Susceptibility Performed See Comments Home Meds Active Klor-Con M20 (Potassium Chloride) 20 Meq Tab.er.prt 20 Meq PO DAILY Acetaminophen 500 Mg Tablet 500 Mg PO Q6H PRN Enoxaparin Sodium 40 Mg/0.4 Ml Syringe 40 Mg SQ Q24H Amiodarone HCl 200 Mg Tablet 100 Mg PO DAILY Iprat-Albut 0.5-3(2.5) mg/3 ml (Ipratropium/Albuterol Sulfate) 3 Ml Ampul.neb 3 Ml INH RTQ4HR PRN Brilinta (Ticagrelor) 90 Mg Tablet 90 Mg PO BID Metoprolol Succinate 50 Mg Tab.er.24h 50 Mg PO DAILY Novolog Flexpen (Insulin Aspart) 300 Units/3 Ml Solution 12 Units SQ AC Levemir Flextouch (Insulin Detemir) 100 Unit/1 Ml Insuln.pen 10 Unit SQ HS Tab-A-Kaylie Multivit with Iron (Multivitamin/Iron/Folic Acid) 1 Each Tablet 1 Ea PO DAILY@0700 Atorvastatin Calcium 10 Mg Tablet 10 Mg PO DAILY Fish Oil 1,000 mg Softgel ([place]-3/Dha/Epa/Fish Oil) 1,000 Mg Capsule 1,000 Mg PO BID Aspirin EC (Aspirin) 81 Mg Tablet.dr 81 Mg PO DAILY Reported Metformin HCl 1,000 Mg Tablet 1,000 Mg PO BID Assessment/Pt Instructions PCP 1 week Discharge Planning: <30 minutes discharge planning Discharge Instructions Discharge Diet: ADA Diet Activity as Tolerated: Yes Discharge Physical Examination Vital Signs Vital Signs Date Time Temp Pulse Resp B/P (MAP) Pulse Ox O2 Delivery O2 Flow Rate FiO2 11/04/21 04:00 36.4 81 20 125/70 (88) 94 Room Air 11/02/21 18:30 1.00 10/31/21 19:45 28 General Appearance: No Apparent Distress, WD/WN, Chronically ill Allergies: Coded Allergies: No Known Drug Allergies (Unverified , 12/14/17) Discharge Summary Date of Admission Oct 28, 2021 at 16:07 Date of Discharge Discharge Date: Nov 04, 2021 Discharge Diagnosis (1) Sepsis Status: Acute Assessment & Plan: Suspect secondary to pneumonia. LP also done due to seizure and AMS, no evidence of meningitis. STEPHANIA resolved. Qualifiers: (2) Pneumonia right lower lobe Status: Acute Assessment & Plan: Cefepime 10/31- on 1 lpm supplemental oxygen, wean as tolerated 11/01 stable on room air Qualifiers: Qualified Codes: J18.9 - Pneumonia, unspecified organism (3) Seizure Status: Acute Assessment & Plan: New onset in ER, LP done and no evidence of meningitis, suspect may be related to methamphetamine use. Seizure precautions. CT head with pansinusitis otherwise no acute findings. 11/01 no further seizure activity since admission. (4) Altered mental status Status: Resolved Assessment & Plan: Improving, oriented x 3 but with delayed speech on 10/29. Continue treating sepsis and monitor closely. 10/30 falling asleep throughout exam, but speech slightly more clear when awake than yesterday 10/31 alert and oriented x 3 and able to give some information about why he is in the hospital Qualifiers: Qualified Codes: R40.1 - Stupor (5) Diabetes mellitus type 2 with complications Status: Chronic Assessment & Plan: Diabetic diet, sliding scale insulin. A1c improved to 8.4 compared to 13.1 in July. (6) Anemia Status: Chronic Qualifiers: Qualified Codes: D63.8 - Anemia in other chronic diseases classified elsewhere (7) Methamphetamine use Status: Chronic Assessment & Plan: statement services representative consult. (8) CAD (coronary artery disease) Status: Chronic Assessment & Plan: Resume home statin, aspirin and ticagrelor Qualifiers: Qualified Codes: I25.10 - Atherosclerotic heart disease of [place] coronary artery without angina pectoris (9) Mixed hyperlipidemia Status: Chronic Assessment & Plan: Resume home statin (10) Primary hypertension Status: Chronic Assessment & Plan: Hypotensive on admission resolved with IVF, resumed home metoprolol when BP improved and began to have tachycardia. (11) Paroxysmal atrial fibrillation Status: Chronic Assessment & Plan: Last hospital stay Cardiology notes document decreasing amiodarone to 100 mg, but he remained on 200 mg outpatient, will resume 100 mg. Not on chronic anticoagulation for uncertain reason, had not been following closely with Cardiology. (12) Chronic systolic heart failure Status: Chronic Assessment & Plan: 07/2021 echo with EF 35-40%, grade 1 diastolic dysfunction. (13) Liver transplant status Status: Chronic (14) Alcohol use Status: Chronic Assessment & Plan: Alcohol level normal on admit, EtOH withdrawal protocol started, but has not required repeat lorazepam since ER. (15) Debility Status: Chronic Assessment & Plan: PT, OT, looking into SNF at d/c. (16) At risk for deep venous thrombosis Status: Acute Assessment & Plan: Enoxaparin 11/03/2021: Supportive care Discharge to residential tomorrow KEITH CABALLERO DO Nov 04, 2021 06:22
[2021-11-04 08:00] VITALS: BP 138/84
[2021-11-04] MEDS: AtorvaSTATin TABLET 10 MG TABLET PO SCH (08:05)
[2021-11-04] MEDS: meTOproloL SUCCINATE 50 MG (TOPROL XL) TAB PO SCH (08:05)
[2021-11-04] MEDS: TICAGRELOR 90 MG TABLET (BRILINTA) PO SCH (08:05)
[2021-11-04] MEDS: KCL 20 MEQ TAB (K-DUR) PO SCH (08:05)
[2021-11-04] MEDS: ASPIRIN E.C. 81 MG (ECOTRIN) TAB PO SCH (08:05)
[2021-11-04] MEDS: AMIODARONE 200 MG (CORDARONE) TAB PO SCH (08:06)
[2021-11-04 12:14] VITALS: BP 138/84
== END 2021-11-04 12:00 | DRG 871 ==
LOC: EDUNIT# 12:56 → ER 12:58 → ICU 16:07 → 4TH 10-29 17:20
PROVIDERS: ADMIT Internal Medicine; ATTEND Internal Medicine
PROC: 009U3ZX Drainage of Spinal Canal, Percutaneous Approach, Diagnostic (ICD-10-PCS; principal; 2021-10-28)
PROC: 8E0ZXY6 Isolation (ICD-10-PCS; 2021-10-28)
DX: A41.9 Sepsis, unspecified organism (principal); J18.9 Pneumonia, unspecified organism; J96.01 Acute respiratory failure with hypoxia; N17.9 Acute kidney failure, unspecified; I50.22 Chronic systolic (congestive) heart failure; I42.9 Cardiomyopathy, unspecified; Z94.4 Liver transplant status; R65.20 Severe sepsis without septic shock; G40.909 Epilepsy, unspecified, not intractable, without status epilepticus; I11.0 Hypertensive heart disease with heart failure; I25.10 Atherosclerotic heart disease of native coronary artery without angina pectoris; I48.0 Paroxysmal atrial fibrillation; F32.A Depression, unspecified; E11.40 Type 2 diabetes mellitus with diabetic neuropathy, unspecified; D64.9 Anemia, unspecified; E78.2 Mixed hyperlipidemia; I95.9 Hypotension, unspecified; F15.90 Other stimulant use, unspecified, uncomplicated; I25.2 Old myocardial infarction; Z95.5 Presence of coronary angioplasty implant and graft; Z89.431 Acquired absence of right foot; Z79.84 Long term (current) use of oral hypoglycemic drugs; Z79.82 Long term (current) use of aspirin; Z79.4 Long term (current) use of insulin
CPT/HCPCS: 36415; 51702; 70450; 71045; 80053; 80306; 80320; 80329; 81000; 82140; 82550; 82945; 82947; 83036; 83605; 83735; 84100; 84145; 84157; 85007; 85025; 85027; 85610; 85730; 87040; 87070; 87077; 87081; 87205; 89051; 93005; 94640; 94760; 96361; 96365; 96375; 99291

== ENCOUNTER 2022-03-19 03:45 | Emergency (ER) | payer MEDICARE ==
[~2022-03-19 03:45] MED LIST changes: +ACET-93 PO; +ENOX40DI8 SQ; +IPRA3AMP31 INH; +POTA-169 PO
--- NOTE | 2022-03-19 04:16 | ED EENT ---
History of Present Illness General Chief Complaint: Post OP Complications/Pain Stated Complaint: POST BIOPSY BLEED ON RT EAR Nursing Triage Note: TO ED VIA [facility] FROM HOME WITH C/O BLEEDING FROM POST BX SITE TO RIGHT EAR. 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 PT HAD BX BY OWNER SPA DIRECTOR AT DR. QUINN OFFICE THIS PAST THURSDAY MORNING. Source: patient History of Present Illness Date Seen by Provider: Mar 19, 2022 Time Seen by Provider: 03:48 Initial Comments PT ARRIVES VIA EMS FROM HOME PT HAD A BIOPSY FROM HIS RIGHT EXTERNAL EAR ON Thursday03/17/22 BY OWNER SPA DIRECTOR AT DR. QUINN' OFFICE PT IS ON [place] FOR CHRONIC ATRIAL FIBRILLATION--STATES HE WAS NOT INSTRUCTED TO STOP HIS BLOOD THINNER AT ANY TIME STATES TONIGHT ABOUT AN HOUR AGO, HE WOKE UP WITH HIS EAR BLEEDING AND STATES HE HAD KNOCKED THE BANDAGE OFF AT SOME POINT, AND EAR HAS BEEN BLEEDING HEAVILY SINCE THEN NO PAIN TO THE AREA NO OTHER EXCESSIVE BLEEDING OR BRUISING OR PETECHIAE ANYWHERE. PT VOICES NO OTHER COMPLAINTS. PCP: [facility], DR. QUIÑONEZ--WAS SEEING DR. ESTHELA DORMAN CARDROOM MANAGER: DR. LONG Allergies and Home Medications Allergies Coded Allergies: No Known Drug Allergies (Unverified , 12/14/17) Patient Home Medication List Home Medication List Reviewed: Yes Acetaminophen (Acetaminophen) 500 Mg Tablet, 500 MG PO Q6H PRN for PAIN-MILD (1- 4) Prescribed by: KEITH CABALLERO on 11/04/21620 Amiodarone HCl (Amiodarone HCl) 200 Mg Tablet, 100 MG PO DAILY Prescribed by: KEITH CABALLERO on 11/04/21620 Aspirin (Aspirin EC) 81 Mg Tablet.dr 81 MG PO DAILY Prescribed by: KEITH CABALLERO on 11/04/21620 Atorvastatin Calcium (Atorvastatin Calcium) 10 Mg Tablet, 10 MG PO DAILY Prescribed by: KEITH CABALLERO on 11/04/21620 Enoxaparin Sodium (Enoxaparin Sodium) 40 Mg/0.4 Ml Syringe, 40 MG SQ Q24H Prescribed by: KEITH CABALLERO on 11/04/21620 Insulin Aspart (Novolog Flexpen) 300 Units/3 Ml Solution, 12 UNITS SQ AC Prescribed by: KEITH CABALLERO on 11/04/21620 Insulin Detemir (Levemir Flextouch) 100 Unit/1 Ml Insuln.pen, 10 UNIT SQ HS Prescribed by: KEITH CABALLERO on 11/04/21620 Ipratropium/Albuterol Sulfate (Iprat-Albut 0.5-3(2.5) mg/3 ml) 3 Ml Ampul.neb, 3 ML INH RTQ4HR PRN for wheezing Prescribed by: KEITH CABALLERO on 11/04/21620 Metoprolol Succinate (Metoprolol Succinate) 50 Mg Tab.er.24h, 50 MG PO DAILY Prescribed by: KEITH CABALLERO on 11/04/21620 Multivitamin/Iron/Folic Acid (Tab-A-Kaylie Multivit with Iron) 1 Each Tablet, 1 EA PO DAILY@0700 Prescribed by: KEITH CABALLERO on 11/04/21620 Turney-3/Dha/Epa/Fish Oil (Fish Oil 1,000 mg Softgel) 1,000 Mg Capsule, 1,000 MG PO BID Prescribed by: KEITH CABALLERO on 11/04/21620 Potassium Chloride (Klor-Con M20) 20 Meq Tab.er.prt, 20 MEQ PO DAILY Prescribed by: KEITH CABALLERO on 11/04/21620 Ticagrelor (Brilinta) 90 Mg Tablet, 90 MG PO BID Prescribed by: KEITH CABALLERO on 11/04/21620 Review of Systems Review of Systems Constitutional: no symptoms reported Ears: See HPI Skin: see HPI Hematologic/Lymphatic: See HPI Past Yvcjewp-Brszni-Bymuzc Hx Patient Social History Tobacco Use?: Yes Tobacco type used: Cigarettes Smoking Status: Former Smoker Substance use?: No Alcohol Use?: Yes Immunizations Up To Date Tetanus Booster (TDap): Unknown First/Initial COVID19 Vaccinat: 12/24/20 Second COVID19 Vaccination Anshu: 02/13/21 COVID19 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 QUINN' OFFICE Surgeries: Yes (several sx on both feet with toes amputed on right foot) Amputation, Appendectomy, Cardiac, Coronary Stent, Defibrillator, Gallbladder, Liver Transplant, Orthopedic, Tonsillectomy Respiratory: No Currently Using CPAP: No Currently Using BIPAP: No Cardiac: Yes (STEMI/STENTS; CHF; DEFIBRILLATOR IN PLACE FOR CARDIOMYOPATHY AND V-TACH. ) Atrial Fibrillation, Cardiomyopathy, Coronary Artery Disease, Heart Attack, High Cholesterol, Hypertension, Irregular Heartbeat Neurological: Yes (NEUROPATHY IN FEET) Neuropathy Reproductive Disorders: No Sexually Transmitted Disease: No HIV/AIDS: No Genitourinary: Yes Prostate Problems Gastrointestinal: Yes (HEPATITIS C--S/P INTERFERON TREATMENT; LIVER TRANSPLANT 2002) Liver Disease/Jaundice, Hepatitis, Cirrhosis Musculoskeletal: Yes (TOES AMPUTATED. CELLULITIS/OSTEOMYELITIS OF FEET/TOES) Amputee, Arthritis, Chronic Back Pain Endocrine: Yes (YBI-OUOKAGMOX-UPYL NOT CHECK BLOOD SUGARS ) Diabetes, Insulin dep HEENT: Yes (EDENTULOUS) Loss of Vision: Left Hearing Impairment: Denies Cancer: No Psychosocial: Yes (NEVER TAKEN MEDICATION) Depression Integumentary: Yes (CYST LEFT NECK; CELLULITIS/OSTEOMYELITIS OF FEET) Blood Disorders: No Adverse Reaction/Blood Tranf: No (HAS HAD BLOOD WITH NO REACTION) Family Medical History Cystic fibrosis 19 MOTHER G8 SISTER FH: breast cancer G8 SISTER Myocardial infarction 19 FATHER SOCIAL HISTORY: -SMOKED 5 PPD--QUIT 2000 -ETOH --HX OF ABUSE, OVER A CASE OF BEER PLUS HARD LIQUOR--QUIT -DRUGS-HX OF IV METHAMPHETAMINE AND IV COCAINE USE. ALSO SMOKES METH, AND THC PAST SURGICAL HISTORY: -ALL RIGHT TOES AMPUTATED FOR CELLULTIS/OSTEOMYELITIS -LEFT TOE AMPUTATIONS FOR CELLULITIS / OSTEOMYELITIS -LIVER TRANSPLANT 2002 -CHOELCYSTECTOMY -TONSILLECTOMY -APPENDECTOMY -CARDIAC CATHS WITH MULTIPLE STENTS TO RCA AND LAD -LAST CATH 05/04/[address] LONG: CONCLUSION: 1. Acute ST elevation myocardial infarction with total occlusion of a freshly deployed stent 2 days ago in the LAD, door to establishment of flow was 61 minutes 2. Total occlusion of the LAD successful balloon angioplasty with complex procedures then deployment of 2 stents overlapping stent Resolute Integrity 2.5 x 18 mm expanded distally to 2.7 mm and at the overlap area 2.75 mm, at the distal LAD deployment of Resolute Colbert 2 x 22 expanded to 2.2 mm distally and 2.5 mm proximally. Excellent results. 3. First diagonal artery has moderate to severe lesion, smaller artery treated medically 4. Right coronary artery has a patent stent with good flow distally 5. Dilated left ventricle with diffuse left ventricular hypokinesia with estimated ejection fraction 30 percent -DEFIBRILLATOR PLACED 09/07/[address] ETHAN BELL HISTORY OF NON-COMPLIANCE IN ALL ASPECTS OF CARE Physical Exam Vital Signs Vital Signs - First Documented 03/19/22 03/19/22 03:48 05:14 Temp 36.6 Pulse 78 Resp 16 B/P (MAP) 126/91 (103) Pulse Ox 98 O2 Delivery Room Air Height, Weight, BMI Height: 6'0.00" Weight: 240lbs. 0.0oz. 108.924285ro; 28.07 BMI Method:Stated General Appearance: WD/WN, no apparent distress Ears: right ear other (RIGHT EXTERNAL EAR, INFERIOR ASPECT WITH BIOPSY SITE WITH PROFUSE ACTIVE BLEEDING. ) Mouth/Throat: other (EDENTULOUS) Neurologic/Psychiatric: no motor/sensory deficits, alert, normal mood/affect Skin: normal color, warm/dry Procedures/Interventions Other Wound Location RIGHT EXTERNAL EAR Anesthesia: 1% Lidocaine Sterile Dressing Applied?: Yes Progress AREA CLEANSED WITH SALINE INJECTED WITH 1% LIDOCAINE PLAIN WOUND CAUTERIZED WITH ELECTROCAUTERY AND BLEEDING CONTROLLED AREA CLEANSED AND DRESSED WITH NON-ADHERENT GAUZE. Progress/Results/Core Measures Results/Orders Lab Results Laboratory Tests Test 03/19/22 04:35 Range/Units White Blood Count 7.2 4.3-11.0 10^3/uL Red Blood Count 4.10 L 4.30-5.52 10^6/uL Hemoglobin 12.1 L 13.3-17.7 g/dL Hematocrit 36 L 40-54 % Mean Corpuscular Volume 88 80-99 fL Mean Corpuscular Hemoglobin 30 25-34 pg Mean Corpuscular Hemoglobin Concent 33 32-36 g/dL Red Cell Distribution Width 14.3 10.0-14.5 % Platelet Count 403 H 130-400 10^3/uL Mean Platelet Volume 10.9 9.0-12.2 fL Prothrombin Time 13.7 12.2-14.7 SEC INR Comment 1.0 0.8-1.4 Activated Partial Thromboplast Time 30 24-35 SEC My Orders Orders - CORONA BERG DO Cbc No Diff (03/19/22 04:10) Protime With Inr (03/19/22 04:10) Partial Thromboplastin Time (03/19/22 04:10) Wound Dressing-Ed (03/19/22 04:10) Vital Signs/I&O 03/19/22 03/19/22 03:48 05:14 Temp 36.6 Pulse 78 73 Resp 16 16 B/P (MAP) 126/91 (103) 103/67 Pulse Ox 98 99 O2 Delivery Room Air Room Air Blood Pressure Mean: 103 Progress Progress Note : Progress Note PT OBSERVED IN ER FOR APPROXIMATELY 1 HOUR, AND NO RE-BLEEDING OCCURRED. WOUND DRESSED WITH NON-ADHERENT DRESSING, THEN TOPPED WITH LARGE AMOUNT OF GAUZE DRESSING AND ENTIRE HEAD WRAPPED WITH GAUZE TO KEEP DRESSING IN PLACE. Departure Impression Primary Impression: POST OP BLEEDING FROM RIGHT EXTERNAL EAR Additional Impression: ANTICOAGULATION THERAPY Disposition: 01 HOME, SELF-CARE Condition: Improved Departure-Patient Inst. Referrals: AVANI DORMAN MD (PCP/Family) Primary Care Physician ANNA QUINN MD Patient Instructions: Bleeding After Surgery Add. Discharge Instructions: LEAVE DRESSING IN PLACE, DO NOT GET WET FOLLOW UP WITH DR. QUINN' OFFICE TOMORROW FOR RECHECK RETURN TO ER IF SYMPTOMS RETURN Images Ear 1 - CORONA BERG DO Mar 19, 2022 04:16
[2022-03-19 04:43] LABS: HEMATOCRIT 36 % (40-54); HEMOGLOBIN 12.1 g/dL (13.3-17.7); MEAN CORPUSCULAR HEMOGLOBIN 30 pg (25-34); MEAN CORPUSCULAR HGB CONC 33 g/dL (32-36); MEAN CORPUSCULAR VOLUME 88 fL (80-99); MEAN PLATELET VOLUME 10.9 fL (9.0-12.2); PLATELET COUNT 403 10^3/uL (130-400); WHITE BLOOD COUNT 7.2 10^3/uL (4.3-11.0)
[2022-03-19 04:53] LABS: PROTHROMBIN TIME PATIENT 13.7 SEC (12.2-14.7)
[2022-03-19 05:14] VITALS: BP 103/67
== END 2022-03-19 05:25 | disposition home or self-care (01) ==
LOC: EDUNIT# 03:45 → ER 03:46
DX: H95.42 Postprocedural hemorrhage of ear and mastoid process following other procedure (principal); I48.20 Chronic atrial fibrillation, unspecified; I25.10 Atherosclerotic heart disease of native coronary artery without angina pectoris; E11.9 Type 2 diabetes mellitus without complications; F17.210 Nicotine dependence, cigarettes, uncomplicated; Z79.01 Long term (current) use of anticoagulants; Z79.4 Long term (current) use of insulin
CPT/HCPCS: 36415; 85027; 85610; 85730; 99284

== ENCOUNTER → 2022-04-10 | Outpatient (CLI) | payer MEDICARE ==
[2022-04-10 11:20] LABS: HEMATOCRIT 39 % (40-54); HEMOGLOBIN 13.1 g/dL (13.3-17.7); MEAN CORPUSCULAR HEMOGLOBIN 30 pg (25-34); MEAN CORPUSCULAR HGB CONC 34 g/dL (32-36); MEAN CORPUSCULAR VOLUME 88 fL (80-99); MEAN PLATELET VOLUME 10.5 fL (9.0-12.2); PLATELET COUNT 425 10^3/uL (130-400); WHITE BLOOD COUNT 6.7 10^3/uL (4.3-11.0)
[2022-04-10 11:44] LABS: ALBUMIN 3.8 GM/DL (3.2-4.5); BILIRUBIN,TOTAL 0.7 MG/DL (0.1-1.0); CALCIUM 9.6 MG/DL (8.5-10.1); CREATININE SERUM 1.03 MG/DL (0.60-1.30); POTASSIUM 4.1 MMOL/L (3.6-5.0); TOTAL PROTEIN 8.1 GM/DL (6.4-8.2)
--- NOTE | 2022-04-10 16:03 | Diagnostic Imaging Report ---
INDICATION: Arrhythmia. EXAMINATION: PA and lateral chest. There is a unipolar pacemaker with ICD. Heart size and pulmonary vascularity are normal. There is mild interstitial prominence in the lower portions of both lungs. There is no effusion or pneumothorax. There are no consolidating alveolar infiltrates. IMPRESSION: Interstitial fibrosis. This appears similar to exam dated 07/31/2021. Dictated by: Dictated on workstation # [id number]
== END ==
LOC: RAD 10:50
PROVIDERS: ATTEND Internal Medicine Cardiovascular Disease
DX: I35.1 Nonrheumatic aortic (valve) insufficiency (principal); I65.29 Occlusion and stenosis of unspecified carotid artery; J84.10 Pulmonary fibrosis, unspecified; I10 Essential (primary) hypertension
CPT/HCPCS: 36415; 71046; 80053; 80061; 84443; 85027

== ENCOUNTER → 2022-04-17 | Outpatient (CLI) | payer MEDICARE | LOC: CARD 10:26 | PROVIDERS: ATTEND Internal Medicine Cardiovascular Disease | DX: I11.9 Hypertensive heart disease without heart failure (principal); I08.2 Rheumatic disorders of both aortic and tricuspid valves; I25.10 Atherosclerotic heart disease of native coronary artery without angina pectoris | CPT/HCPCS: 93306 ==